=== PATIENT | female | born 1935 | race Caucasian/White ===

== ENCOUNTER → 2017-11-09 20:15 | Outpatient (REF) | payer MEDICARE, OTHER, SELFPAY ==
[2017-11-10 11:38] LABS: Color, Urine Yellow (Yellow); Glucose, Dipstick 250 mg/dl (Normal); Ketone-Dipstick Negative (Negative); Leukocyte Esterase-Dipstick 500 /ul (Negative); Nitrite-Dipstick Negative (Negative); Occult Blood-Urine 10 /ul (Negative); Protein-Dipstick 15 mg/dl (Negative); Urine Bilirubin Dipstick Negative (Negative); Urine Clarity Sl. Cloudy (Clear); Urine Urobilinogen Normal (Normal)
== END ==
LOC: OLS.WHLBEN 20:15
PROVIDERS: Visit Provider Family Medicine
DX: R35.0 Frequency of micturition (principal)
CPT/HCPCS: 81002; 87086; 87088; 87186

== ENCOUNTER → 2018-01-18 05:00 | Outpatient (REF) | payer MEDICARE, OTHER, SELFPAY ==
[2018-01-18 07:45] LABS: Absolute Lymphocyte Count 1.57 X10^3/ul (0.83-4.51); Absolute Neutrophil Count 4.9 X10^3/uL (2.0-7.7); Basophil# 0.02 X10^3/uL; Basophil% 0.3 % (0-1); Hematocrit 32.5 % (37-47); Hemoglobin 10.7 g/dl (12.0-15.0); Lymphocyte # 1.57 X10^3/ul (4.0); Mean Corp Hgb Conc 32.9 g/gl (32-36); Mean Corpuscular Volume 100.3 fL (81-99); Mean Platelet Vol. 8.9 fl (6.2-12.0); Monocyte# 0.68 X10^3/uL; Monocyte% 9.1 % (0-10); Neutrophil # 4.86 X10^3/uL (2.7-7.7); Neutrophil % 65.2 % (47-70); Platelet Count 257 K/mm3 (150-450); RBC Distribution Width CV 15.2 % (11.6-14.6); RBC Distribution Width SD 56.4 fl (35.1-43.9); Red Blood Count 3.24 M/mm3 (4.2-5.4); White Blood Count 7.5 K/mm3 (4.4-11.0)
[2018-01-18 07:55] LABS: POSITIVE COUNT NO; POSITIVE DIFFERENTIAL NO; POSITIVE MORPHOLOGY NO
[2018-01-18 08:09] LABS: ALB/GLOB Ratio 0.9 RATIO (0.9-2.4); AST(SGOT) 11 U/L (15-37); Alanine Aminotransfer ALT/SGPT 19 U/L (13-56); Albumin, Serum 2.5 g/dL (3.2-5.0); Alkaline Phosphatase 85 U/L (45-117); Anion Gap 9 (5-15); BUN 25 mg/dL (7-18); BUN/Creat Ratio 14.2 RATIO (10-20); Chloride 107 mmol/L (98-107); Cholesterol 88 mg/dL (200); Creatinine, Serum 1.76 mg/dL (0.55-1.02); EST Glomerular Filtration Rate 29 mL/min (>60); Est Glom Filt Rate - Afr Amer 36 mL/min (>60); Globulin 2.7 g/dL (2.2-4.2); Glucose 118 mg/dL (74-106); High Density Lipoprotein 56 mg/dL; Potassium 5.1 mmol/L (3.5-5.1); Protein, Total 5.2 g/dL (6.4-8.2); Sodium Level 138 mmol/L (136-145); Thyroid Stim Hormone (TSH) 1.77 uIU/mL (0.358-3.74); Triglycerides 59 mg/dL; Very Low Density Lipoprotein 12 mg/dL (5-40)
[2018-01-18 08:41] LABS: Hemoglobin A1c 9.1 % (4.2-6.3)
[2018-01-18 08:54] LABS: Vitamin D,25 Hydroxy 53.1 ng/mL (29.95-100.01)
== END ==
LOC: OLS.WHLBEN 05:00
PROVIDERS: Visit Provider Family Medicine
DX: E78.5 Hyperlipidemia, unspecified (principal); E03.9 Hypothyroidism, unspecified; E11.9 Type 2 diabetes mellitus without complications
CPT/HCPCS: 36415; 80053; 80061; 82306; 83036; 84443; 85025

== ENCOUNTER → 2018-01-21 05:00 | Outpatient (REF) | payer MEDICARE, OTHER, SELFPAY ==
[2018-01-21 09:21] LABS: Anion Gap 8 (5-15); BUN 19 mg/dL (7-18); BUN/Creat Ratio 14.1 RATIO (10-20); Calcium,Total 8.4 mg/dL (8.5-10.1); Chloride 103 mmol/L (98-107); Creatinine, Serum 1.35 mg/dL (0.55-1.02); EST Glomerular Filtration Rate 40 mL/min (>60); Est Glom Filt Rate - Afr Amer 48 mL/min (>60); Glucose 152 mg/dL (74-106); Potassium 5.1 mmol/L (3.5-5.1); Sodium Level 134 mmol/L (136-145)
== END ==
LOC: OLS.WHLBEN 05:00
PROVIDERS: Visit Provider Family Medicine
DX: N17.9 Acute kidney failure, unspecified (principal)
CPT/HCPCS: 36415; 80048

== ENCOUNTER 2018-03-01 15:23 | Inpatient (IN) | payer MEDICARE, OTHER, SELFPAY ==
[2018-03-01] VITALS (10 sets, daily range): BP systolic 98–148; BP diastolic 55–83; PULSE 77–159; RESP 14–25; TEMP 36–36.7; O2SAT 92–98; BMI 27.4; BMI 29.8
--- NOTE | 2018-03-01 14:08 | EKG12_ITS ---
Test Reason : HYPOTENSION Blood Pressure : / mmHG Vent. Rate : 164 BPM Atrial Rate : 174 BPM P-R Int : 000 ms QRS Dur : 086 ms QT Int : 282 ms P-R-T Axes : 000 -31 084 degrees QTc Int : 465 ms Supraventricular tachycardia Left axis deviation Abnormal ECG Confirmed by SONIA MERCER, MARGARITO ([id number]), editor dictionary SADIQ BUENO ([id number]) on 03/03/2018 9:08:14 AM Referred By: DARA Confirmed By:MARGARITO SCOTT MD
[2018-03-01] MEDS: Adenosine 6 MG/2 ML Syringe IV (14:10)
--- NOTE | 2018-03-01 14:11 | RAD_ITS ---
STUDY: X-RAY CHEST REASON FOR EXAM: Female, 82 years old. Tachycardia TECHNIQUE: Single AP portable view of the chest. COMPARISON: 03/26/2017 FINDINGS: EKG leads overlie the chest Lungs are expanded. Left lung is clear. There is new opacification in the right lung base, likely infiltrate or atelectasis. Follow-up recommended to assure resolution There is no demonstrated pleural abnormality. Normal size heart. Normal mediastinum and aruna. Normal visualized pulmonary arteries. Normal visualized aortic arch and descending thoracic aorta. There are diffuse degenerative changes of the visualized thoracic spine. There is degenerative osteoarthritis of the bilateral shoulders. There is no demonstrated abnormality of the visualized soft tissue structures of the upper abdomen. RAD/Chest 1 View (Portable) IMPRESSION: Airspace opacification in the right lower lobe suspicious for infiltrate or atelectasis. Follow-up recommended to assure resolution. No demonstrated effusion. Electronically Signed: Cristhian Lim MD at 14:30 EDT , Service support ,
[2018-03-01 14:24] LABS: Absolute Lymphocyte Count 1.24 X10^3/ul (0.83-4.51); Absolute Neutrophil Count 15.2 X10^3/uL (2.0-7.7); Basophil# 0.07 X10^3/uL; Basophil% 0.4 % (0-1); Eosinophil# 0.16 X10^3/uL; Eosinophils% 0.9 % (0-5); Hematocrit 36.6 % (37-47); Hemoglobin 12.2 g/dl (12.0-15.0); Lymphocyte # 1.24 X10^3/ul (4.0); Lymphocyte % 6.8 % (19-41); Mean Corp Hgb Conc 33.3 g/gl (32-36); Mean Corpuscular Hgb 34.2 pg (27.0-32.0); Mean Corpuscular Volume 102.5 fL (81-99); Mean Platelet Vol. 8.9 fl (6.2-12.0); Monocyte# 1.39 X10^3/uL; Monocyte% 7.6 % (0-10); Neutrophil # 15.18 X10^3/uL (2.7-7.7); Neutrophil % 83.4 % (47-70); Platelet Count 427 K/mm3 (150-450); RBC Distribution Width SD 48.2 fl (35.1-43.9); Red Blood Count 3.57 M/mm3 (4.2-5.4); White Blood Count 18.2 K/mm3 (4.4-11.0)
[2018-03-01 14:26] LABS: POSITIVE COUNT NO; POSITIVE DIFFERENTIAL NO; POSITIVE MORPHOLOGY NO
--- NOTE | 2018-03-01 14:31 | EKG12_ITS ---
Test Reason : REPEAT Blood Pressure : / mmHG Vent. Rate : 086 BPM Atrial Rate : 086 BPM P-R Int : 132 ms QRS Dur : 084 ms QT Int : 356 ms P-R-T Axes : 039 -34 026 degrees QTc Int : 426 ms Normal sinus rhythm Left axis deviation Poor R wave progression Abnormal ECG Confirmed by SONIA MERCER, MARGARITO ([id number]), newspaper photo editor SADIQ BUENO ([id number]) on 03/03/2018 9:08:35 AM Referred By: PRANAV Confirmed By:MARGARITO SCOTT MD
[2018-03-01 14:54] LABS: BNP,B-Type NATRIURETIC PEPTIDE 120.4 pg/mL (0-100)
[2018-03-01 15:07] LABS: Anion Gap 10 (5-15); BUN 33 mg/dL (7-18); BUN/Creat Ratio 13.3 RATIO (10-20); Calcium,Total 9.2 mg/dL (8.5-10.1); Chloride 106 mmol/L (98-107); Creatinine, Serum 2.48 mg/dL (0.55-1.02); EST Glomerular Filtration Rate 20 mL/min (>60); Est Glom Filt Rate - Afr Amer 24 mL/min (>60); Estimated Creatinine Clearance 14.07 ml/min; Glucose 327 mg/dL (74-106); Potassium 6.4 mmol/L (3.5-5.1); Sodium Level 136 mmol/L (136-145)
--- NOTE | 2018-03-01 15:27 | ED.VISSUMM ---
- ER Visit Summary Date of Service: 03/01/18 Chief Complaint: [Dyspnea and SVT] History of Present Illness: The patient is a 82 F [presents to the emergency department from Dr. Charly Ross's office for evaluation of SVT. Patient was being seen for a routine visit when she was noted to be tachycardic and EKG performed in the office showed SVT. Patient is at a senior living and presents with daughter who gives some of the history. Patient has been short of breath over last several days with minimal exertion. Patient's had a mild cough. She has not had a fever. Patient does not feel like her heart racing and she denies any chest pain. Patient has a history of tachycardia Tacosubo syndrome, diabetes, hypertension, high cholesterol, and COPD.] Physical Examination: [HEENT-PERRLA, EOMI. Cranial nerves II through XII grossly intact. TMs clear. Mucous membranes moist. No adenopathy. Cardiovascular-regular and tachycardic, no murmurs auscultated initially Lungs-good aeration bilaterally, faint expiratory wheezes, no accessory muscle use or retractions Abdomen-normoactive bowel sounds, soft, nontender, no rebound or rigidity, no peritoneal signs. Extremities-intact ?4, normal range of motion, normal pulses, atraumatic] Test Results: [EKG obtained on arrival showed SVT with a ventricular rate of 164 bpm]. CBC with differential showed a white count of . 18.7, hemoglobin 12, hematocrit 37, platelets 427. Chemistry shows sodium 136, potassium 6.4, chloride 106, CO2 20. BUN and creatinine are both elevated from baseline. Troponin was less than 0.02. BNP was 120. Chest x-ray showed a right lower lobe pneumonia. Emergency Department Course and Treatment: [Patient had blood cultures ordered and was started on Azactam 2 g IV. Patient was given Kayexalate 30 g p.o. and given sodium bicarb, calcium chloride, and insulin.] Patient on arrival received 6 mg's of adenosine IV and her SVT resolved to a normal sinus rhythm. Treatment Plan: [Admit] Disposition: [Admit] Impression: [SVT Pneumonia Renal failure Hyperkalemia] This note was generated with Algoregoation software. It may contain incorrect words, spelling, and punctuation that were not noted in review of the chart prior to signing ED Disposition - Plan for ED Patient: Chief Complaint: Palpitations Referrals: Yao Yousif DO [Primary Care Provider] -
--- NOTE | 2018-03-01 15:32 | ED.DCSUM_ITS ---
- ER Visit Summary Date of Service: 03/01/18 Chief Complaint: [Dyspnea and SVT] History of Present Illness: The patient is a 82 F [presents to the emergency department from Dr. Charly Ross's office for evaluation of SVT. Patient was being seen for a routine visit when she was noted to be tachycardic and EKG performed in the office showed SVT. Patient is at a retirement and presents with daughter who gives some of the history. Patient has been short of breath over last several days with minimal exertion. Patient's had a mild cough. She has not had a fever. Patient does not feel like her heart racing and she denies any chest pain. Patient has a history of tachycardia Tacosubo syndrome, diabetes, hypertension, high cholesterol, and COPD.] Physical Examination: [HEENT-PERRLA, EOMI. Cranial nerves II through XII grossly intact. TMs clear. Mucous membranes moist. No adenopathy. Cardiovascular-regular and tachycardic, no murmurs auscultated initially Lungs-good aeration bilaterally, faint expiratory wheezes, no accessory muscle use or retractions Abdomen-normoactive bowel sounds, soft, nontender, no rebound or rigidity, no peritoneal signs. Extremities-intact ?4, normal range of motion, normal pulses, atraumatic] Test Results: [EKG obtained on arrival showed SVT with a ventricular rate of 164 bpm]. CBC with differential showed a white count of . 18.7, hemoglobin 12 , hematocrit 37, platelets 427. Chemistry shows sodium 136, potassium 6.4, chloride 106, CO2 20. BUN and creatinine are both elevated from baseline. Troponin was less than 0.02. BNP was 120. Chest x-ray showed a right lower lobe pneumonia. Emergency Department Course and Treatment: [Patient had blood cultures ordered and was started on Azactam 2 g IV. Patient was given Kayexalate 30 g p.o. and given sodium bicarb, calcium chloride, and insulin.] Patient on arrival received 6 mg's of adenosine IV and her SVT resolved to a normal sinus rhythm. Treatment Plan: [Admit] Disposition: [Admit] Impression: [SVT Pneumonia Renal failure Hyperkalemia] This note was generated with Resilienceation software. It may contain incorrect words, spelling, and punctuation that were not noted in review of the chart prior to signing ED Disposition - Plan for ED Patient: Chief Complaint: Palpitations Referrals: Yao Yousif DO [Primary Care Provider] -
[2018-03-01] MEDS: Calcium Chloride 1 GM/10 ML Syringe IV (15:47)
[2018-03-01] MEDS: Sodium Polystyrene Sulfonate 15 GM/60 ML UDC 30 GM PO (15:48)
[2018-03-01] MEDS: 0.9% Normal Saline 1,000 ML 150 ML IV (15:48)
--- NOTE | 2018-03-01 15:57 | PCM.HP.STD ---
Problem List (1) Takotsubo cardiomyopathy Status: Chronic (2) Nonrheumatic tricuspid (valve) insufficiency Status: Chronic (3) Atherosclerotic heart disease of [place] coronary artery without angina pectoris Status: Chronic Qualifiers: Comment: Mild (4) Hypothyroidism Status: Chronic Qualifiers: (5) COPD (chronic obstructive pulmonary disease) Status: Chronic Qualifiers: (6) Hyperlipidemia Status: Chronic Qualifiers: (7) Type 2 diabetes mellitus Status: Chronic History of Present Illness Date of Admission: 03/01/18 Chief Complaint: SVT, shortness of breath. The patient is a 82 year old F with past medical history as mentioned above was referred to the emergency department from Dr. Ross's office for evaluation for SVT. The patient came in today for follow-up with Dr. Ross for history of nonischemic cardiomyopathy and she was found to be an supraventricular tachycardia and she was sent to the emergency department for evaluation and treatment. According to the patient's daughter, patient has been having symptoms of exertional shortness of breath and weakness over the last couple of days. The patient herself denies any significant symptoms. She did mention that she has been having dry cough over the last few days. She denied chest pain, palpitation, dizziness, lightheadedness, syncope or presyncope. Denies fever or chills. She has a history of Takotsubo cardiomyopathy and she had an echocardiogram that was done on August, and revealed ejection fraction of 45%. She has a history of type 2 diabetes mellitus which seemed to be uncontrolled, most recent hemoglobin A1c was in December, and it was 9.1. She has a history of stage III chronic kidney disease with baseline creatinine has been fluctuating from 0.9 up to 1.7 and admission creatinine is 2.48. In the emergency department, patient was found to be in SVT with heart rate of around 170. She was asymptomatic. She received 2 dose of IV adenosine and she converted back to sinus rhythm. She remained asymptomatic. Her routine blood work is remarkable for leukocytosis, potassium 6.4, creatinine of 2.48. Initial EKG revealed SVT and after she received IV adenosine, EKG revealed sinus rhythm without acute ischemic changes. Her chest x-ray showed new right lower base infiltrate. She is being admitted for SVT, right lower lobe community-acquired pneumonia, acute kidney injury top of stage III chronic kidney disease and hyperkalemia. Past Medical History Past Medical History (Chronic Problems): Chronic Problems (Last Reviewed 03/01/18 @ 13:10 by Victoria Fu) Takotsubo cardiomyopathy (Chronic) Nonrheumatic tricuspid (valve) insufficiency (Chronic) Atherosclerotic heart disease of [place] coronary artery without angina pectoris (Chronic) Mild Hypothyroidism (Chronic) COPD (chronic obstructive pulmonary disease) (Chronic) Hyperlipidemia (Chronic) Type 2 diabetes mellitus (Chronic) Allergies Sulfa (Sulfonamide Antibiotics) Allergy (Unknown, Verified 03/01/18 14:05) Unknown adhesive tape Allergy (Verified 03/01/18 14:05) Other codeine Allergy (Verified 03/01/18 14:05) HEART ATTACK Latex, Natural Rubber Allergy (Verified 03/01/18 14:05) Rash levofloxacin [From Levaquin] Allergy (Verified 03/01/18 14:05) Anaphylaxis Penicillins Allergy (Verified 03/01/18 14:05) Rash acetaminophen [From Vicodin] Adverse Reaction (Verified 03/01/18 14:05) Chest tightness hydrocodone bitartrate [From Vicodin] Adverse Reaction (Verified 03/01/18 14:05) Chest tightness Home Medications: Ambulatory Orders Medication Instructions Recorded Levothyroxine [Synthroid] 25 mcg PO DAILY 05/23/16 Meloxicam [Mobic] 15 mg PO QODAY 05/23/16 Multivit with Calcium,Iron,Min 1 ea PO DAILY 05/23/16 [Multiple Vitamins For Women] Trazodone HCl 50 mg PO QHS 05/23/16 Aspirin 325 mg PO DAILY@0800 #0 tab 08/30/16 Atorvastatin Calcium [Lipitor] 20 mg PO QHS #30 tab 09/23/16 Metformin HCl [Glucophage] 1,000 mg PO BIDCM #60 tab 09/23/16 Insulin Detemir [Levemir FlexPen] 24 units SC DAILY 03/26/17 Lisinopril [Prinivil] 10 mg PO DAILY 03/26/17 Ubidecarenone [Coenzyme Q-10] 200 mg PO DAILY 03/26/17 Vitamin E 400 unit PO DAILY 03/26/17 citalopram 10 mg tablet 10 mg PO QDAY 01/15/18 ergocalciferol (vitamin D2) 50,000 50,000 unit PO QMONTH 01/15/18 unit capsule hydroxyzine HCl 25 mg tablet 25 mg PO DAILY PRN 01/15/18 Fluticasone/Salmeterol [Advair 1 each IH BID 03/01/18 500-50 Diskus] megestrol 20 mg tablet 10 mg PO TID tab 03/01/18 ondansetron HCl 4 mg tablet 4 mg PO Q8H PRN tab 03/01/18 oxybutynin chloride ER 10 mg 10 mg PO QDAY 03/01/18 tablet,extended release 24 hr Surgical History: hysterectomy, total hip arthroplasty, - - Fractured femur Psychiatric History: No pertinent psych hx SUPERINTENDENT COLLIERY History: No pertinent SUPERINTENDENT COLLIERY history Smoking Status: Never smoker Alcohol: None Drugs: None - *Family History Maternal History Items: No pertinent history Paternal History Items: No pertinent history Review of Systems Constitutional: Reports: Anorexia, Weakness. Denies: Chills, Fever Eyes: Denies: Blurred vision, Double vision, Drainage, Redness HEENT: Denies: Difficulty Hearing, Ear Pain, Eye Pain, Nasal Congestion, Sore Throat Cardiovascular: Denies: Chest Pain, Chest Pressure, Chest Tightness, Heaviness, Light Headedness, Palpitations, Paroxysmal Noc. Dyspnea, Syncope Respiratory: Reports: Cough, Shortness of breath upon exertion. Denies: Pleuritic Pain, Sputum production, Wheezing Gastrointestinal: Denies: Abdominal Pain, Constipation, Diarrhea, Nausea, Vomiting Genitourinary: Denies: Dysuria, Frequency, Hematuria Musculoskeletal: Denies: Arm Pain, Back Pain, Foot Pain Skin: Denies: Dryness, Rash Neurological: Denies: Balance problems, Double vision, Change in Speech, Slurred speech, Confusion, Focal weakness, Headaches, Incoordination Psychiatric: Denies: Anxiety, Depression Endocrine: Denies: Change in Body Habitus, Polydipsia VTE Information - Inpt Only VTE Present on Admission: No VTE Mechan Device Prophylaxis: None VTE Pharm Prophylaxis ordered?: Yes - Physical Exam General: Alert, Oriented x3, Cooperative, No apparent distress HEENT: Atraumatic, PERRLA, EOMI Oral: Moist Mucosa, No Gingival or Mucosal Lesions/ Ulcerations Neck: Supple, No JVD, Negative Carotid Bruits, Trachea Midline, Thyroid Normal Size and Texture Lungs: Clear to auscultation, No rhonchi, No wheeze, No rales, Diminished Cardiovascular: Regular rate, Regular Rhythm, Normal S1, Normal S2, PMI Normal Abdomen: Bowel Sounds Present, Soft, Non Tender, Non-Distended, No Hepato-splenomegaly Extremities: No clubbing, No cyanosis, No edema Skin: No rashes, No breakdown Lymphatic: No Cervical, Supraclavicular, or Inguinal Adenopathy Neurological: Cranial nerves II-XII grossly intact, Motor Exam 5/5 strength throughout Psych/Mental Status: Normal Affect, Appropriate, Alert and oriented to time, place, person, mood and affect Vital Signs Temp Pulse Resp BP Pulse Ox 96.8 F L 77 19 H 109/59 L 98 03/01/18 13:56 03/01/18 15:48 03/01/18 15:48 03/01/18 15:48 03/01/18 15:48 Oxygen Flow Rate (L/min) 2 Oxygen Delivery Method Nasal Cannula Weight: 150 lb Body Mass Index (BMI) 27.4 Laboratory Tests Past 24 Hrs 03/01/18 03/01/18 03/01/18 14:07 14:07 14:07 WBC 18.2 H RBC 3.57 L Hgb 12.2 Hct 36.6 L MCV 102.5 H MCH 34.2 H MCHC 33.3 RDW 13.0 RDW Differential 48.2 H Plt Count 427 MPV 8.9 Immature Gran % (Auto) 0.900 Neut % (Auto) 83.4 H Lymph % (Auto) 6.8 L Blair % (Auto) 7.6 Eos % (Auto) 0.9 Baso % (Auto) 0.4 Absolute Neuts (auto) 15.2 H Absolute Lymphs (auto) 1.24 Sodium 136 Potassium 6.4 H* Chloride 106 Carbon Dioxide 20.0 L Anion Gap 10 BUN 33 H Creatinine 2.48 H Estim Creat Clear Calc 14.07 Est GFR (MDRD) Af Amer 24 L Est GFR (MDRD) Non-Af 20 L BUN/Creatinine Ratio 13.3 Glucose 327 H Calcium 9.2 Troponin I 0.02 B-Natriuretic Peptide 120.4 H Assessment/Plan This is 82 years old female patient was sent to the emergency department by Dr. Ross for SVT as well as symptoms of mild shortness of breath and weakness and she was found to have right lower lobe community acquired pneumonia, acute kidney injury on top of stage III chronic kidney disease, hyperkalemia and SVT that returned back to sinus rhythm after IV adenosine. #1 SVT: Status post chemical cardioversion, patient received 2 doses of IV adenosine she converted back to sinus rhythm. EKG after the adenosine reviewed, revealed sinus rhythm without acute ischemic changes. Plan: Admit to PCU, cardiac monitoring, serial cardiac enzymes, 2D echocardiogram, cardiology consult, check serum magnesium and TSH, PT OT evaluation and treatment. #2 right lower lobe community-acquired pneumonia: Chest x-ray reviewed. She does have significant leukocytosis. She is afebrile. Plan: Blood culture, sputum culture, urine culture, urinalysis, start IV Rocephin and Zithromax, albuterol as needed, chest physical therapy. #3 acute kidney injury double stage III chronic kidney disease: This is secondary to poor oral intake in addition to medication side effects including lisinopril, meloxicam and metformin. At baseline creatinine has been fluctuating anywhere from 0.9-1.7. Admission creatinine is 2.48. Plan: Gentle IV fluids for hydration to avoid volume overload, hold nephrotoxic drugs, input output chart, repeat BMP tomorrow morning. #4 hyperkalemia: Secondary to #3. In addition to that, patient has been on lisinopril. EKG revealed sinus rhythm without changes related to hyperkalemia. She received 1 dose of Kayexalate, sodium bicarb, IV insulin and calcium chloride in the ER. Plan: IV fluids, repeat potassium at 8 PM tonight, repeat BMP tomorrow morning, hold lisinopril. #5 Takotsubo cardiomyopathy: With low ejection fraction, most recent 2D echo cardiogram was from August, with ejection fraction of 45%. At this time, no evidence of acute CHF. Plan: 2D echocardiogram, gentle IV fluids for hydration to avoid volume overload, hold lisinopril. #6 type 2 diabetes mellitus: ADA diet, Accu-Cheks, insulin sliding scale, continue home doses of Levemir insulin, hold metformin as above. #7 hypothyroidism: Continue levothyroxine, check TSH. #8 COPD: Clinically stable, pulse ox is maintained on room air. Plan for albuterol as needed. #9 hyperlipidemia: Continue statins. #10 DVT prophylaxis: Subcu heparin. This note was generated with Dragon dictation software. It may contain incorrect words, spelling, and punctuation that were not noted in checking the note before signing. Code Visit Inpatient E&M: 48122 Init Hosp L3
--- NOTE | 2018-03-01 16:04 | CASEMGMT ---
Social Work Note Pt is from [facility] and anticipates returning at discharge. Notified pt and her daughter that SW would contact [facility] to notify of admission and SW on assigned unit would assist with transfer back to [facility]. Understanding expressed and no further needs at this time. Placed call to Stella and notified that pt would be admitted to PCU and to f/u with Gelacio Salamanca regarding d/c plans. Plan: [facility] Brandi Leger, DIRECTOR BIOLOGY, LEAD SALES CONSULTANT
[2018-03-01 16:21] LABS: Bedside Glucose 264 mg/dL (70-110)
--- NOTE | 2018-03-01 18:29 | ECHOD_ITS ---
Reason For Study: ARRHYTHMIA Procedure This was a 2D Doppler, Color Flow transthoracic echocardiogram. The exam was of adequate technical quality. Exam performed portable in patient room. Left Ventricle Normal LV size. Left ventricular systolic function is normal. The estimated ejection fraction is 65 %. No regional wall motion abnormalities noted. Right Ventricle Normal RV size. Normal systolic function. Atria The left atrium is mildly enlarged. Normal right atrium. No doppler evidence for ASD. Mitral Valve There is mild mitral annular calcification. Extension of the mitral annular calcification onto the posterior mitral valve leaflet. Mild (1+) eccentric mitral valve insufficiency. Tricuspid Valve Normal tricuspid valve. Mild tricuspid valve insufficiency. Right ventricular systolic pressure estimated to be 37 mmHg. Aortic Valve Trisinus/trileaflet aortic valve. Mild focal aortic valve calcification. Pulmonic Valve The pulmonic valve is not well visualized. Trivial pulmonic valve insufficiency. Great Vessels Normal sized aortic root. Pericardium/Pleural No pericardial effusion. MMode/2D Measurements & Calculations LVIDd: 3.6 cm IVSd: 1.0 cm Ao root diam: 2.9 cm LVIDs: 2.3 cm LVPWd: 1.0 cm RVDd: 3.5 cm FS: 37.6 % LAV(MOD-bp): 59.4 ml LA A4 area: 19.4 cm2 RA A4 area: 15.0 cm2 LAV(MOD-bp) Indexed: 33.9 ml/m2 LAV(MOD-sp2): 61.1 ml LAV(MOD-sp4): 56.0 ml Doppler Measurements & Calculations MV E max kalpesh: 82.5 cm/sec Lat Peak E' Kalpesh: 10.9 cm/sec Med Peak E' Kalpesh: 8.8 cm/sec MV A max kalpesh: 118.7 cm/sec E/E' lat: 7.5 E/E' med: 9.4 MV E/A: 0.69 Ao V2 max: 140.2 cm/sec LV V1 max: 113.4 cm/sec TR max kalpesh: 290.8 cm/sec Ao max P.9 mmHg LV V1 max P.1 mmHg TR max P.9 mmHg Interpretation Summary Left ventricular systolic function is normal. The estimated ejection fraction is 65 %. The left atrium is mildly enlarged. There is mild mitral annular calcification. Extension of the mitral annular calcification onto the posterior mitral valve leaflet. Mild (1+) eccentric mitral valve insufficiency. Mild tricuspid valve insufficiency. Mild focal aortic valve calcification. Trivial pulmonic valve insufficiency. Right ventricular systolic pressure estimated to be 37 mmHg. Transmitral diastolic flow velocities suggest diastolic dysfunction. Ordering Physician: Mohsen Goncalves Referring Physician: TRACY JONES Performed By: Екатерина Boss, ROBERT, RVT
[2018-03-01] MEDS: Ceftriaxone 1 GM/50 ML BAG IV (18:47)
[2018-03-01] MEDS: 0.9% Normal Saline 1,000 ML 75 ML IV (18:47)
[2018-03-01 20:05] LABS: Potassium 5.1 mmol/L (3.5-5.1)
[2018-03-01 20:06] LABS: Thyroid Stim Hormone (TSH) 2.14 uIU/mL (0.358-3.74)
[2018-03-01] MEDS: Heparin Injection (Vial) 5,000 UNIT/ML VIAL 5000 UNIT SC (22:56)
[2018-03-01] MEDS: traZODone 50 MG Tablet PO (22:57)
[2018-03-01] MEDS: Atorvastatin Calcium 20 MG Tablet PO (22:57)
[2018-03-01 23:55] LABS: Bedside Glucose 339 mg/dL (70-110)
[2018-03-02] VITALS (12 sets, daily range): BP systolic 100–127; BP diastolic 52–73; PULSE 60–82; RESP 14–18; TEMP 36.7–37.2; O2SAT 94–96
[2018-03-02] MEDS: Loperamide 2 MG Capsule 1 MG PO (00:51)
[2018-03-02] MEDS: Levothyroxine 25 MCG TABLET PO (05:03)
[2018-03-02] MEDS: Heparin Injection (Vial) 5,000 UNIT/ML VIAL 5000 UNIT SC ×3 (05:04→21:11)
[2018-03-02 05:47] LABS: Anion Gap 8 (5-15); BUN 27 mg/dL (7-18); BUN/Creat Ratio 19.3 RATIO (10-20); Calcium,Total 8.5 mg/dL (8.5-10.1); Chloride 112 mmol/L (98-107); EST Glomerular Filtration Rate 38 mL/min (>60); Est Glom Filt Rate - Afr Amer 46 mL/min (>60); Estimated Creatinine Clearance 24.93 ml/min; Glucose 223 mg/dL (74-106); Potassium 4.6 mmol/L (3.5-5.1); Sodium Level 142 mmol/L (136-145)
[2018-03-02 06:33] LABS: Absolute Lymphocyte Count 1.47 X10^3/ul (0.83-4.51); Absolute Neutrophil Count 6.8 X10^3/uL (2.0-7.7); Basophil# 0.04 X10^3/uL; Basophil% 0.4 % (0-1); Eosinophil# 0.44 X10^3/uL; Eosinophils% 4.6 % (0-5); Hematocrit 28.3 % (37-47); Hemoglobin 9.5 g/dl (12.0-15.0); Lymphocyte # 1.47 X10^3/ul (4.0); Lymphocyte % 15.5 % (19-41); Mean Corp Hgb Conc 33.6 g/gl (32-36); Mean Corpuscular Hgb 33.9 pg (27.0-32.0); Mean Corpuscular Volume 101.1 fL (81-99); Mean Platelet Vol. 9.5 fl (6.2-12.0); Monocyte# 0.71 X10^3/uL; Monocyte% 7.5 % (0-10); Neutrophil # 6.77 X10^3/uL (2.7-7.7); Neutrophil % 71.2 % (47-70); Platelet Count 245 K/mm3 (150-450); RBC Distribution Width CV 13.4 % (11.6-14.6); RBC Distribution Width SD 49.9 fl (35.1-43.9); White Blood Count 9.5 K/mm3 (4.4-11.0)
--- NOTE | 2018-03-02 06:41 | PCM.CONS.C ---
Reason for Consult Date of Consultation: 03/02/18 Reason for Consultation: Fast heart rate History of Present Illness: The patient is a 82 year old F with past medical history as mentioned above was referred to the emergency department from Dr. oRss's office for evaluation for SVT. The patient came in today for follow-up with Dr. Ross for history of nonischemic cardiomyopathy and she was found to be an supraventricular tachycardia and she was sent to the emergency department for evaluation and treatment. According to the patient's daughter, patient has been having symptoms of exertional shortness of breath and weakness over the last couple of days. The patient herself denies any significant symptoms. She did mention that she has been having dry cough over the last few days. She denied chest pain, palpitation, dizziness, lightheadedness, syncope or presyncope. Denies fever or chills. She has a history of Takotsubo cardiomyopathy and she had an echocardiogram that was done on August, and revealed ejection fraction of 45%. She has a history of type 2 diabetes mellitus which seemed to be uncontrolled, most recent hemoglobin A1c was in December, and it was 9.1. She has a history of stage III chronic kidney disease with baseline creatinine has been fluctuating from 0.9 up to 1.7 and admission creatinine is 2.48. In the emergency department, patient was found to be in SVT with heart rate of around 164. She was asymptomatic. She received 2 dose of IV adenosine and she converted back to sinus rhythm. She remained asymptomatic. Her routine blood work is remarkable for leukocytosis, potassium 6.4, creatinine of 2.48. Initial EKG revealed SVT and after she received IV adenosine, EKG revealed sinus rhythm without acute ischemic changes. Her chest x-ray showed new right lower base infiltrate. She is being admitted for SVT, right lower lobe community-acquired pneumonia, acute kidney injury top of stage III chronic kidney disease and hyperkalemia. Cardiology was called for further evaluation and management. She has had no further symptoms of fast heartbeat since she was admitted to the hospital. [] Past Medical History Allergies/Adverse Reactions: Allergies Sulfa (Sulfonamide Antibiotics) Allergy (Unknown, Verified 03/01/18 14:05) Unknown adhesive tape Allergy (Verified 03/01/18 14:05) Other codeine Allergy (Verified 03/01/18 14:05) HEART ATTACK Latex, Natural Rubber Allergy (Verified 03/01/18 14:05) Rash levofloxacin [From Levaquin] Allergy (Verified 03/01/18 14:05) Anaphylaxis Penicillins Allergy (Verified 03/01/18 14:05) Rash acetaminophen [From Vicodin] Adverse Reaction (Verified 03/01/18 14:05) Chest tightness hydrocodone bitartrate [From Vicodin] Adverse Reaction (Verified 03/01/18 14:05) Chest tightness Home Medications: Ambulatory Orders Medication Instructions Recorded Levothyroxine [Synthroid] 25 mcg PO DAILY 05/23/16 Meloxicam [Mobic] 15 mg PO QODAY 05/23/16 Multivit with Calcium,Iron,Min 1 tab PO DAILY 05/23/16 [Multiple Vitamins For Women] Trazodone HCl 50 mg PO QHS 05/23/16 Insulin Detemir [Levemir FlexPen] 24 units SC DAILY 03/26/17 Lisinopril [Prinivil] 10 mg PO DAILY 03/26/17 Ubidecarenone [Coenzyme Q-10] 200 mg PO DAILY 03/26/17 Vitamin E 400 unit PO DAILY 03/26/17 ergocalciferol (vitamin D2) 50,000 50,000 unit PO QMONTH 01/15/18 unit capsule Aspirin 325 mg PO DAILY@0800 03/01/18 Atorvastatin Calcium [Lipitor] 20 mg PO QHS 03/01/18 Fluticasone/Salmeterol [Advair 1 each IH BID 03/01/18 500-50 Diskus] Metformin HCl [Glucophage] 1,000 mg PO BIDCM 03/01/18 megestrol 20 mg tablet 10 mg PO TID tab 03/01/18 ondansetron HCl 4 mg tablet 4 mg PO Q8H PRN tab 03/01/18 oxybutynin chloride ER 10 mg 10 mg PO DAILY 03/01/18 tablet,extended release 24 hr Past Medical History (Chronic Problems): Chronic Problems (Last Reviewed 03/01/18 @ 13:10 by Victoria Fu) Takotsubo cardiomyopathy (Chronic) Nonrheumatic tricuspid (valve) insufficiency (Chronic) Atherosclerotic heart disease of [place] coronary artery without angina pectoris (Chronic) Mild Hypothyroidism (Chronic) COPD (chronic obstructive pulmonary disease) (Chronic) Hyperlipidemia (Chronic) Type 2 diabetes mellitus (Chronic) Surgical History: hysterectomy, total hip arthroplasty, - - Fractured femur Psychiatric History: 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 Denies: Chest Discomfort, Orthopnea, PND, Peripheral Edema, Palpitations, Lightheadedness, Dizziness, Near Syncope, Syncope Respiratory: Denies: Cough, Sputum Production, Hemoptysis Gastrointestinal: Denies: Hematemesis, Hematochezia, Melena Genitourinary: Denies: Dysuria, Hematuria Skin: Denies: Rash Subjectve: Pleasant lady in no apparent distress Objective: Vital Signs Temp Pulse Resp BP Pulse Ox 98.1 F 78 18 100/52 L 94 03/02/18 04:30 03/02/18 04:30 03/02/18 04:30 03/02/18 04:30 03/02/18 04:30 Oxygen Delivery Method Room Air Weight: 163 lb 2.273 oz Body Mass Index (BMI) 29.8 Intake and Output for Last 24 Hours 02/28/18 03/01/18 03/02/18 23:59 23:59 23:59 Intake Total 749 / 749 589 / 589 Balance 749 / 749 589 / 589 General: Awake, Alert, Oriented x 3 HEENT: PERRL, EOMI, Sclera Non Icteric Neck: Supple, Good ROM, No Lymph Node Enlargement Lungs: Clear to auscultation Cardiovascular: Regular Rhythm, Normal S1, Normal S2, No Murmurs, No Rubs, No Gallops Vascular: No Carotid Bruits, Normal Femoral Pulses, Normal Radial Pulses, Normal Dorsalis Pedal Pulse, Normal Posterior Tibial Pulses Abdomen: Bowel Sounds Present, Soft, Non Tender, No HSM, No Organomegaly Extremities: No Cyanosis, No Clubbing, No edema Neurological: No Focal Motor or Sensory Deficit 03/01/18 18:55: Potassium 5.1 03/01/18 18:55: Troponin I 0.15 H 03/01/18 22:31: Troponin I 0.19 H 03/02/18 04:45: WBC Cancelled, Corrected WBC Cancelled, RBC Cancelled, Hgb Cancelled, Hct Cancelled, MCV Cancelled, MCH Cancelled, MCHC Cancelled, RDW Cancelled, RDW Differential Cancelled, Plt Count Cancelled, MPV Cancelled, Immature Gran % (Auto) Cancelled, Neut % (Auto) Cancelled, Lymph % (Auto) Cancelled, [place] % (Auto) Cancelled, Eos % (Auto) Cancelled, Baso % (Auto) Cancelled, Absolute Neuts (auto) Cancelled, Total Counted Cancelled, Neutrophils % (Manual) Cancelled, Band Neutrophils % Cancelled, Lymphocytes % (Manual) Cancelled, Monocytes % (Manual) Cancelled, Eosinophils % (Manual) Cancelled, Basophils % (Manual) Cancelled, Metamyelocytes % Cancelled, Myelocytes % Cancelled, Promyelocytes % Cancelled, Blast Cells % Cancelled, Plasma Cell % (Manual) Cancelled, Other Cells % Cancelled 03/02/18 04:45: Sodium 142, Potassium 4.6, Chloride 112 H, Carbon Dioxide 22.0, Anion Gap 8, BUN 27 H, Creatinine 1.40 H, Est GFR (MDRD) Af Amer 46 L, Est GFR (MDRD) Non-Af 38 L, BUN/Creatinine Ratio 19.3, Glucose 223 H, Calcium 8.5, Troponin I 0.15 H Rhythm: EKG: Initial EKG from March 01 1402 demonstrates supraventricular tachycardia with a rate of 164 bpm, follow-up EKG after conversion demonstrates normal sinus rhythm with a rate of 86 bpm left axis deviation Assessment/Plan 1. Supraventricular tachycardia. The etiology of the above is not entirely clear. She has had no previous obstructive coronary disease but she did have significant electrolyte abnormal 80s including renal dysfunction and hyperkalemia. My recommendation at this time would be to institute low-dose beta-katty and discontinue the lisinopril and observe her. Would recommend an echocardiogram to assess her left ventricular function and further recommendations will depend on the results of the above. 2. History of takutsobo cardiomyopathy She has had a previous history of apical ballooning syndrome but has been asymptomatic with no heart failure symptoms her last ejection fraction was estimated to be 45% in 2016 and this would be reevaluated. 3. Hyperlipidemia She does have a history of hyperlipidemia and will continue with primary risk factor modification. 4. Hyperkalemia Suggest discontinuation of the lisinopril. Thank you for allowing me to participate in the care of your patient. Please don't hesitate to call if any issues arise
[2018-03-02 06:48] LABS: Differential Indicated SCAN CRITERIA MET; POSITIVE COUNT YES; POSITIVE DIFFERENTIAL NO; POSITIVE MORPHOLOGY YES
--- NOTE | 2018-03-02 06:48 | CON.PCM_ITS ---
Reason for Consult Date of Consultation: 03/02/18 Reason for Consultation: Fast heart rate History of Present Illness: The patient is a 82 year old F with past medical history as mentioned above was referred to the emergency department from Dr. Ross's office for evaluation for SVT. The patient came in today for follow-up with Dr. Ross for history of nonischemic cardiomyopathy and she was found to be an supraventricular tachycardia and she was sent to the emergency department for evaluation and treatment. According to the patient's daughter, patient has been having symptoms of exertional shortness of breath and weakness over the last couple of days. The patient herself denies any significant symptoms. She did mention that she has been having dry cough over the last few days. She denied chest pain, palpitation, dizziness, lightheadedness, syncope or presyncope. Denies fever or chills. She has a history of Takotsubo cardiomyopathy and she had an echocardiogram that was done on August, and revealed ejection fraction of 45%. She has a history of type 2 diabetes mellitus which seemed to be uncontrolled, most recent hemoglobin A1c was in December, and it was 9.1. She has a history of stage III chronic kidney disease with baseline creatinine has been fluctuating from 0.9 up to 1.7 and admission creatinine is 2.48. In the emergency department, patient was found to be in SVT with heart rate of around 164. She was asymptomatic. She received 2 dose of IV adenosine and she converted back to sinus rhythm. She remained asymptomatic. Her routine blood work is remarkable for leukocytosis, potassium 6.4, creatinine of 2.48. Initial EKG revealed SVT and after she received IV adenosine, EKG revealed sinus rhythm without acute ischemic changes. Her chest x-ray showed new right lower base infiltrate. She is being admitted for SVT, right lower lobe community-acquired pneumonia, acute kidney injury top of stage III chronic kidney disease and hyperkalemia. Cardiology was called for further evaluation and management. She has had no further symptoms of fast heartbeat since she was admitted to the hospital. [] Past Medical History Allergies/Adverse Reactions: Allergies Sulfa (Sulfonamide Antibiotics) Allergy (Unknown, Verified 03/01/18 14:05) Unknown adhesive tape Allergy (Verified 03/01/18 14:05) Other codeine Allergy (Verified 03/01/18 14:05) HEART ATTACK Latex, Natural Rubber Allergy (Verified 03/01/18 14:05) Rash levofloxacin [From Levaquin] Allergy (Verified 03/01/18 14:05) Anaphylaxis Penicillins Allergy (Verified 03/01/18 14:05) Rash acetaminophen [From Vicodin] Adverse Reaction (Verified 03/01/18 14:05) Chest tightness hydrocodone bitartrate [From Vicodin] Adverse Reaction (Verified 03/01/18 14:05) Chest tightness Home Medications: Ambulatory Orders Medication Instructions Recorded Levothyroxine [Synthroid] 25 mcg PO DAILY 05/23/16 Meloxicam [Mobic] 15 mg PO QODAY 05/23/16 Multivit with Calcium,Iron,Min 1 tab PO DAILY 05/23/16 [Multiple Vitamins For Women] Trazodone HCl 50 mg PO QHS 05/23/16 Insulin Detemir [Levemir FlexPen] 24 units SC DAILY 03/26/17 Lisinopril [Prinivil] 10 mg PO DAILY 03/26/17 Ubidecarenone [Coenzyme Q-10] 200 mg PO DAILY 03/26/17 Vitamin E 400 unit PO DAILY 03/26/17 ergocalciferol (vitamin D2) 50,000 50,000 unit PO QMONTH 01/15/18 unit capsule Aspirin 325 mg PO DAILY@0800 03/01/18 Atorvastatin Calcium [Lipitor] 20 mg PO QHS 03/01/18 Fluticasone/Salmeterol [Advair 1 each IH BID 03/01/18 500-50 Diskus] Metformin HCl [Glucophage] 1,000 mg PO BIDCM 03/01/18 megestrol 20 mg tablet 10 mg PO TID tab 03/01/18 ondansetron HCl 4 mg tablet 4 mg PO Q8H PRN tab 03/01/18 oxybutynin chloride ER 10 mg 10 mg PO DAILY 03/01/18 tablet,extended release 24 hr Past Medical History (Chronic Problems): Chronic Problems (Last Reviewed 03/01/18 @ 13:10 by Victoria Fu) Takotsubo cardiomyopathy (Chronic) Nonrheumatic tricuspid (valve) insufficiency (Chronic) Atherosclerotic heart disease of [place] coronary artery without angina pectoris (Chronic) Mild Hypothyroidism (Chronic) COPD (chronic obstructive pulmonary disease) (Chronic) Hyperlipidemia (Chronic) Type 2 diabetes mellitus (Chronic) Surgical History: hysterectomy, total hip arthroplasty, - - Fractured femur Psychiatric History: 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 Denies: Chest Discomfort, Orthopnea, PND, Peripheral Edema, Palpitations, Lightheadedness, Dizziness, Near Syncope, Syncope Respiratory: Denies: Cough, Sputum Production, Hemoptysis Gastrointestinal: Denies: Hematemesis, Hematochezia, Melena Genitourinary: Denies: Dysuria, Hematuria Skin: Denies: Rash Subjectve: Pleasant lady in no apparent distress Objective: Vital Signs Temp Pulse Resp BP Pulse Ox 98.1 F 78 18 100/52 L 94 03/02/18 04:30 03/02/18 04:30 03/02/18 04:30 03/02/18 04:30 03/02/18 04:30 Oxygen Delivery Method Room Air Weight: 163 lb 2.273 oz Body Mass Index (BMI) 29.8 Intake and Output for Last 24 Hours 02/28/18 03/01/18 03/02/18 23:59 23:59 23:59 Intake Total 749 / 749 589 / 589 Balance 749 / 749 589 / 589 General: Awake, Alert, Oriented x 3 HEENT: PERRL, EOMI, Sclera Non Icteric Neck: Supple, Good ROM, No Lymph Node Enlargement Lungs: Clear to auscultation Cardiovascular: Regular Rhythm, Normal S1, Normal S2, No Murmurs, No Rubs, No Gallops Vascular: No Carotid Bruits, Normal Femoral Pulses, Normal Radial Pulses, Normal Dorsalis Pedal Pulse, Normal Posterior Tibial Pulses Abdomen: Bowel Sounds Present, Soft, Non Tender, No HSM, No Organomegaly Extremities: No Cyanosis, No Clubbing, No edema Neurological: No Focal Motor or Sensory Deficit 03/01/18 18:55: Potassium 5.1 03/01/18 18:55: Troponin I 0.15 H 03/01/18 22:31: Troponin I 0.19 H 03/02/18 04:45: WBC Cancelled, Corrected WBC Cancelled, RBC Cancelled, Hgb Cancelled, Hct Cancelled, MCV Cancelled, MCH Cancelled, MCHC Cancelled, RDW Cancelled, RDW Differential Cancelled, Plt Count Cancelled, MPV Cancelled, Immature Gran % (Auto) Cancelled, Neut % (Auto) Cancelled, Lymph % (Auto) Cancelled, [place] % (Auto) Cancelled, Eos % (Auto) Cancelled, Baso % (Auto) Cancelled, Absolute Neuts (auto) Cancelled, Total Counted Cancelled, Neutrophils % (Manual) Cancelled, Band Neutrophils % Cancelled, Lymphocytes % ( Manual) Cancelled, Monocytes % (Manual) Cancelled, Eosinophils % (Manual) Cancelled, Basophils % (Manual) Cancelled, Metamyelocytes % Cancelled, Myelocytes % Cancelled, Promyelocytes % Cancelled, Blast Cells % Cancelled, Plasma Cell % (Manual) Cancelled, Other Cells % Cancelled 03/02/18 04:45: Sodium 142, Potassium 4.6, Chloride 112 H, Carbon Dioxide 22.0, Anion Gap 8, BUN 27 H, Creatinine 1.40 H, Est GFR (MDRD) Af Amer 46 L, Est GFR ( MDRD) Non-Af 38 L, BUN/Creatinine Ratio 19.3, Glucose 223 H, Calcium 8.5, Troponin I 0.15 H Rhythm: EKG: Initial EKG from March 01 1402 demonstrates supraventricular tachycardia with a rate of 164 bpm, follow-up EKG after conversion demonstrates normal sinus rhythm with a rate of 86 bpm left axis deviation Assessment/Plan 1. Supraventricular tachycardia. The etiology of the above is not entirely clear. She has had no previous obstructive coronary disease but she did have significant electrolyte abnormal 80s including renal dysfunction and hyperkalemia. My recommendation at this time would be to institute low-dose beta-katty and discontinue the lisinopril and observe her. Would recommend an echocardiogram to assess her left ventricular function and further recommendations will depend on the results of the above. 2. History of takutsobo cardiomyopathy She has had a previous history of apical ballooning syndrome but has been asymptomatic with no heart failure symptoms her last ejection fraction was estimated to be 45% in 2016 and this would be reevaluated. 3. Hyperlipidemia She does have a history of hyperlipidemia and will continue with primary risk factor modification. 4. Hyperkalemia Suggest discontinuation of the lisinopril. Thank you for allowing me to participate in the care of your patient. Please don't hesitate to call if any issues arise
[2018-03-02 07:00] LABS: Bedside Glucose 224 mg/dL (70-110)
[2018-03-02 07:14] LABS: Acanthocytes RARE; Anisocytosis 2+; Crenated RBC RARE; Hypochromasia 1+; Ovalocyte RARE
[2018-03-02 07:15] LABS: Differential Comment SCANNED
[2018-03-02] MEDS: Citalopram 10 MG Tablet PO (09:54)
[2018-03-02] MEDS: Tolterodine Tartrate 2 MG CAP.SA PO (09:54)
[2018-03-02] MEDS: Aspirin 81 MG TAB.CHEW PO (09:54)
[2018-03-02] MEDS: 0.9% Normal Saline 1,000 ML 75 ML IV (10:01)
--- NOTE | 2018-03-02 10:01 | CASEMGMT ---
Patient is from [facility]. FISHER faxed updates to Stella at [facility]. to follow for d/c planning. Marisel [employer]
--- NOTE | 2018-03-02 10:40 | PCM.PROGNOTE ---
<Brandi Simpson - Last Filed: 03/02/18 11:06> Patient Problems: Active and Suspected Problems (Last Reviewed 03/01/18 @ 13:10 by Victoria Fu) SVT (supraventricular tachycardia) (Acute) Pneumococcal pneumonia (Acute) Subjective: Patient seen and examined. Very pleasant. Denies current complaints. Denies shortness of breath, chest pain, palpitations. Daughter at bedside. Denies questions, concerns. - Physical Exam General: Alert, Oriented x3, Cooperative, No apparent distress HEENT: Atraumatic, PERRLA, EOMI, Normocephalic Oral: Dry Mucosa Neck: Supple, No JVD, Negative Carotid Bruits Lungs: Diminished, Rhonchi Cardiovascular: Regular rate, Regular Rhythm, Normal S1, Normal S2, No murmurs Abdomen: Bowel Sounds Present, Soft, Non Tender, Non-Distended Extremities: No clubbing, No cyanosis, No edema, Capillary Refill Less than 3 Seconds Skin: No rashes, No breakdown Musculoskeletal: No Tenderness to Palpation of Joints or Extremities Neurological: Cranial nerves II-XII grossly intact, Neuro grossly intact Psych/Mental Status: Normal Affect, Appropriate Vital Signs Temp Pulse Resp BP Pulse Ox 98.4 F 82 16 116/63 96 03/02/18 09:55 03/02/18 09:55 03/02/18 09:55 03/02/18 09:55 03/02/18 09:55 Oxygen Delivery Method Room Air Weight: 74 kg Body Mass Index (BMI) 29.8 Intake and Output for Last 24 Hours 02/28/18 03/01/18 03/02/18 23:59 23:59 23:59 Intake Total 749 / 749 589 / 589 Balance 749 / 749 589 / 589 Laboratory Tests Past 24 Hrs 03/01/18 03/01/18 03/01/18 18:55 18:55 18:55 WBC Corrected WBC RBC Hgb Hct MCV MCH MCHC RDW RDW Differential Plt Count MPV Immature Gran % (Auto) Neut % (Auto) Lymph % (Auto) [place] % (Auto) Eos % (Auto) Baso % (Auto) Absolute Neuts (auto) Absolute Lymphs (auto) Total Counted Neutrophils % (Manual) Band Neutrophils % Lymphocytes % (Manual) Monocytes % (Manual) Eosinophils % (Manual) Basophils % (Manual) Metamyelocytes % Myelocytes % Promyelocytes % Blast Cells % Plasma Cell % (Manual) Other Cells % Nucleated RBCs/100 WBC Differential Comment Diff Path Review Hypersegmented Neuts Atypical Lymphocytes Reactive Lymphocytes Smudge Cells Toxic Granulation Dohle Bodies Derek Rods Platelet Estimate Plt Morphology Comment RBC Morphology Polychromasia Hypochromasia Poikilocytosis Basophilic Stippling Anisocytosis Microcytosis Macrocytosis Spherocytes Sickle Cells Target Cells Tear Drop Cells Ovalocytes Stomatocytes Fox-Bergman Bodies Hettick Cells Bite Cells Acanthocytes (Spur) Rouleaux Schistocytes Sodium Potassium 5.1 Chloride Carbon Dioxide Anion Gap BUN Creatinine Estim Creat Clear Calc Est GFR (MDRD) Af Amer Est GFR (MDRD) Non-Af BUN/Creatinine Ratio Glucose Calcium Troponin I 0.15 H TSH 2.14 03/01/18 03/02/18 03/02/18 22:31 04:45 04:45 WBC Cancelled Corrected WBC Cancelled RBC Cancelled Hgb Cancelled Hct Cancelled MCV Cancelled MCH Cancelled MCHC Cancelled RDW Cancelled RDW Differential Cancelled Plt Count Cancelled MPV Cancelled Immature Gran % (Auto) Cancelled Neut % (Auto) Cancelled Lymph % (Auto) Cancelled [place] % (Auto) Cancelled Eos % (Auto) Cancelled Baso % (Auto) Cancelled Absolute Neuts (auto) Cancelled Absolute Lymphs (auto) Cancelled Total Counted Cancelled Neutrophils % (Manual) Cancelled Band Neutrophils % Cancelled Lymphocytes % (Manual) Cancelled Monocytes % (Manual) Cancelled Eosinophils % (Manual) Cancelled Basophils % (Manual) Cancelled Metamyelocytes % Cancelled Myelocytes % Cancelled Promyelocytes % Cancelled Blast Cells % Cancelled Plasma Cell % (Manual) Cancelled Other Cells % Cancelled Nucleated RBCs/100 WBC Cancelled Differential Comment Cancelled Diff Path Review Cancelled Hypersegmented Neuts Cancelled Atypical Lymphocytes Cancelled Reactive Lymphocytes Cancelled Smudge Cells Cancelled Toxic Granulation Cancelled Dohle Bodies Cancelled Derek Rods Cancelled Platelet Estimate Cancelled Plt Morphology Comment Cancelled RBC Morphology Cancelled Polychromasia Cancelled Hypochromasia Cancelled Poikilocytosis Cancelled Basophilic Stippling Cancelled Anisocytosis Cancelled Microcytosis Cancelled Macrocytosis Cancelled Spherocytes Cancelled Sickle Cells Cancelled Target Cells Cancelled Tear Drop Cells Cancelled Ovalocytes Cancelled Stomatocytes Cancelled Fox-Bergman Bodies Cancelled Compa Cells Cancelled Bite Cells Cancelled Acanthocytes (Spur) Cancelled Rouleaux Cancelled Schistocytes Cancelled Sodium 142 Potassium 4.6 Chloride 112 H Carbon Dioxide 22.0 Anion Gap 8 BUN 27 H Creatinine 1.40 H Estim Creat Clear Calc 24.93 Est GFR (MDRD) Af Amer 46 L Est GFR (MDRD) Non-Af 38 L BUN/Creatinine Ratio 19.3 Glucose 223 H Calcium 8.5 Troponin I 0.19 H 0.15 H TSH 03/02/18 05:50 WBC 9.5 Corrected WBC RBC 2.80 L Hgb 9.5 L Hct 28.3 L MCV 101.1 H MCH 33.9 H MCHC 33.6 RDW 13.4 RDW Differential 49.9 H Plt Count 245 MPV 9.5 Immature Gran % (Auto) 0.800 Neut % (Auto) 71.2 H Lymph % (Auto) 15.5 L [place] % (Auto) 7.5 Eos % (Auto) 4.6 Baso % (Auto) 0.4 Absolute Neuts (auto) 6.8 Absolute Lymphs (auto) 1.47 Total Counted Not Reportable Neutrophils % (Manual) Band Neutrophils % Lymphocytes % (Manual) Monocytes % (Manual) Eosinophils % (Manual) Basophils % (Manual) Metamyelocytes % Myelocytes % Promyelocytes % Blast Cells % Plasma Cell % (Manual) Other Cells % Nucleated RBCs/100 WBC Differential Comment SCANNED Diff Path Review Hypersegmented Neuts Atypical Lymphocytes Reactive Lymphocytes Smudge Cells Toxic Granulation Dohle Bodies Derek Rods Platelet Estimate Plt Morphology Comment RBC Morphology RARE Polychromasia Hypochromasia 1+ Poikilocytosis Basophilic Stippling Anisocytosis 2+ Microcytosis Macrocytosis Spherocytes Sickle Cells Target Cells Tear Drop Cells Ovalocytes RARE Stomatocytes Fox-Bergman Bodies Hettick Cells Bite Cells Acanthocytes (Spur) RARE Rouleaux Schistocytes Sodium Potassium Chloride Carbon Dioxide Anion Gap BUN Creatinine Estim Creat Clear Calc Est GFR (MDRD) Af Amer Est GFR (MDRD) Non-Af BUN/Creatinine Ratio Glucose Calcium Troponin I TSH POC Glucose 03/02/18 03/01/18 03/01/18 06:55 22:31 16:10 POC Glucose 224 H 339 H 264 H Medical Necessity - Tobacco Use Smoking Status: Never smoker Assessment/Plan Active and Suspected Problems (Last Reviewed 03/01/18 @ 13:10 by Victoria Fu) SVT (supraventricular tachycardia) (Acute) Pneumococcal pneumonia (Acute) Patient is an 82-year-old female admitted 03/01/18 due to SVT and shortness of breath. Patient was sent from Dr. Ross's office. She has a past medical history of takotsubo cardiomyopathy, CAD, hypothyroidism, COPD, hyperlipidemia, type 2 diabetes mellitus, hypertension, depression. 1. SVT-resolved status post chemical cardioversion with 2 doses of IV adenosine. Remains sinus rhythm. Cardiology consulted. Echocardiogram pending. TSH within normal limits. Check magnesium. Begin low-dose beta-katty per cardiology recommendation. Lisinopril discontinued. Monitor telemetry. 2. Acute community-acquired right lower lobe pneumonia, suspect gram-negative organism-chest x-ray on admission showed right lower lobe infiltrate. Blood cultures pending. Send sputum for culture. Albuterol aerosol as needed for shortness of breath. Continue IV azithromycin and Rocephin. Leukocytosis resolved. Patient afebrile. PEP/IS. Urine for strep and Legionella negative. 3. Acute kidney injury on chronic kidney disease stage III-significantly improved with IV fluids. Monitor BMP. 4. Hyperkalemia-secondary #3. Resolved. Patient received Kayexalate, sodium bicarb and IV insulin. 5. Elevated troponin-suspect demand ischemia secondary to #1. Cardiology following. Echocardiogram pending. 6. CAD-continue aspirin, statin. Low-dose beta-katty added. 7. History of takotsubo cardiomyopathy-Echocardiogram August 2016 showed an EF of 45%. Repeat echocardiogram pending. 8. Type 2 diabetes mellitus-hemoglobin A1c December 2017 was 9.1%. Home metformin regimen on hold. Accu-Cheks before meals at bedtime with sliding scale insulin. Continue home Levemir regimen. 9. Hypothyroidism-TSH within normal limits. Continue home Synthroid regimen. 10. Hyperlipidemia-continue statin. 11. Hypertension-stable. Home lisinopril discontinued secondary to #3. Started on metoprolol 12.5 mg twice daily. Continue to monitor. 12. Depression- Continue home celexa regimen. 13. Chronic macrocytic anemia-stable. Monitor CBC. Baseline hemoglobin 10.5. DVT prophylaxis-heparin subcu. This patient was seen by LEONARDO Alejandra under the supervision of Dr. Bartholomew. <Yefri Bartholomew - Last Filed: 03/02/18 12:33> Subjective: No new events. - Physical Exam General: Alert, No apparent distress HEENT: Atraumatic, Normocephalic Cardiovascular: Regular rate, Regular Rhythm, Normal S1, Normal S2 Abdomen: Bowel Sounds Present, Soft, Non Tender, Non-Distended Extremities: No edema, No Calf Tenderness Skin: No rashes, No breakdown Psych/Mental Status: Normal Affect, Appropriate Vital Signs Temp Pulse Resp BP Pulse Ox 36.9 C 76 16 116/63 96 03/02/18 09:55 03/02/18 11:20 03/02/18 09:55 03/02/18 09:55 03/02/18 09:55 Oxygen Delivery Method Room Air Weight: 74 kg Body Mass Index (BMI) 29.8 Intake and Output for Last 24 Hours 02/28/18 03/01/18 03/02/18 23:59 23:59 23:59 Intake Total 749 / 749 1482 / 1482 Balance 749 / 749 1482 / 1482 Laboratory Tests Past 24 Hrs 03/01/18 03/01/18 03/01/18 18:55 18:55 18:55 WBC Corrected WBC RBC Hgb Hct MCV MCH MCHC RDW RDW Differential Plt Count MPV Immature Gran % (Auto) Neut % (Auto) Lymph % (Auto) [place] % (Auto) Eos % (Auto) Baso % (Auto) Absolute Neuts (auto) Absolute Lymphs (auto) Total Counted Neutrophils % (Manual) Band Neutrophils % Lymphocytes % (Manual) Monocytes % (Manual) Eosinophils % (Manual) Basophils % (Manual) Metamyelocytes % Myelocytes % Promyelocytes % Blast Cells % Plasma Cell % (Manual) Other Cells % Nucleated RBCs/100 WBC Differential Comment Diff Path Review Hypersegmented Neuts Atypical Lymphocytes Reactive Lymphocytes Smudge Cells Toxic Granulation Dohle Bodies Derek Rods Platelet Estimate Plt Morphology Comment RBC Morphology Polychromasia Hypochromasia Poikilocytosis Basophilic Stippling Anisocytosis Microcytosis Macrocytosis Spherocytes Sickle Cells Target Cells Tear Drop Cells Ovalocytes Stomatocytes Fox-Bergman Bodies Compa Cells Bite Cells Acanthocytes (Spur) Rouleaux Schistocytes Sodium Potassium 5.1 Chloride Carbon Dioxide Anion Gap BUN Creatinine Estim Creat Clear Calc Est GFR (MDRD) Af Amer Est GFR (MDRD) Non-Af BUN/Creatinine Ratio Glucose Calcium Magnesium Troponin I 0.15 H TSH 2.14 03/01/18 03/02/18 03/02/18 22:31 04:45 04:45 WBC Cancelled Corrected WBC Cancelled RBC Cancelled Hgb Cancelled Hct Cancelled MCV Cancelled MCH Cancelled MCHC Cancelled RDW Cancelled RDW Differential Cancelled Plt Count Cancelled MPV Cancelled Immature Gran % (Auto) Cancelled Neut % (Auto) Cancelled Lymph % (Auto) Cancelled [place] % (Auto) Cancelled Eos % (Auto) Cancelled Baso % (Auto) Cancelled Absolute Neuts (auto) Cancelled Absolute Lymphs (auto) Cancelled Total Counted Cancelled Neutrophils % (Manual) Cancelled Band Neutrophils % Cancelled Lymphocytes % (Manual) Cancelled Monocytes % (Manual) Cancelled Eosinophils % (Manual) Cancelled Basophils % (Manual) Cancelled Metamyelocytes % Cancelled Myelocytes % Cancelled Promyelocytes % Cancelled Blast Cells % Cancelled Plasma Cell % (Manual) Cancelled Other Cells % Cancelled Nucleated RBCs/100 WBC Cancelled Differential Comment Cancelled Diff Path Review Cancelled Hypersegmented Neuts Cancelled Atypical Lymphocytes Cancelled Reactive Lymphocytes Cancelled Smudge Cells Cancelled Toxic Granulation Cancelled Dohle Bodies Cancelled Derek Rods Cancelled Platelet Estimate Cancelled Plt Morphology Comment Cancelled RBC Morphology Cancelled Polychromasia Cancelled Hypochromasia Cancelled Poikilocytosis Cancelled Basophilic Stippling Cancelled Anisocytosis Cancelled Microcytosis Cancelled Macrocytosis Cancelled Spherocytes Cancelled Sickle Cells Cancelled Target Cells Cancelled Tear Drop Cells Cancelled Ovalocytes Cancelled Stomatocytes Cancelled Fox-Bergman Bodies Cancelled Hettick Cells Cancelled Bite Cells Cancelled Acanthocytes (Spur) Cancelled Rouleaux Cancelled Schistocytes Cancelled Sodium 142 Potassium 4.6 Chloride 112 H Carbon Dioxide 22.0 Anion Gap 8 BUN 27 H Creatinine 1.40 H Estim Creat Clear Calc 24.93 Est GFR (MDRD) Af Amer 46 L Est GFR (MDRD) Non-Af 38 L BUN/Creatinine Ratio 19.3 Glucose 223 H Calcium 8.5 Magnesium Troponin I 0.19 H 0.15 H TSH 03/02/18 03/02/18 04:45 05:50 WBC 9.5 Corrected WBC RBC 2.80 L Hgb 9.5 L Hct 28.3 L MCV 101.1 H MCH 33.9 H MCHC 33.6 RDW 13.4 RDW Differential 49.9 H Plt Count 245 MPV 9.5 Immature Gran % (Auto) 0.800 Neut % (Auto) 71.2 H Lymph % (Auto) 15.5 L [place] % (Auto) 7.5 Eos % (Auto) 4.6 Baso % (Auto) 0.4 Absolute Neuts (auto) 6.8 Absolute Lymphs (auto) 1.47 Total Counted Not Reportable Neutrophils % (Manual) Band Neutrophils % Lymphocytes % (Manual) Monocytes % (Manual) Eosinophils % (Manual) Basophils % (Manual) Metamyelocytes % Myelocytes % Promyelocytes % Blast Cells % Plasma Cell % (Manual) Other Cells % Nucleated RBCs/100 WBC Differential Comment SCANNED Diff Path Review Hypersegmented Neuts Atypical Lymphocytes Reactive Lymphocytes Smudge Cells Toxic Granulation Dohle Bodies Derek Rods Platelet Estimate Plt Morphology Comment RBC Morphology RARE Polychromasia Hypochromasia 1+ Poikilocytosis Basophilic Stippling Anisocytosis 2+ Microcytosis Macrocytosis Spherocytes Sickle Cells Target Cells Tear Drop Cells Ovalocytes RARE Stomatocytes Fox-Bergman Bodies Compa Cells Bite Cells Acanthocytes (Spur) RARE Rouleaux Schistocytes Sodium Potassium Chloride Carbon Dioxide Anion Gap BUN Creatinine Estim Creat Clear Calc Est GFR (MDRD) Af Amer Est GFR (MDRD) Non-Af BUN/Creatinine Ratio Glucose Calcium Magnesium 1.5 L Troponin I TSH POC Glucose 03/02/18 03/01/18 03/01/18 06:55 22:31 16:10 POC Glucose 224 H 339 H 264 H Assessment/Plan Patient seen and examined independently. I agree with the above nurse practitioner note. 1. Supraventricular tachycardia: Currently rate controlled. She is on metoprolol. Currently waiting on echocardiogram. 2. Suspected pneumococcal pneumonia. Currently on azithromycin and Rocephin. Code Visit Inpatient E&M: 31538 Subs Hosp L2
[2018-03-02] MEDS: Ceftriaxone 1 GM/50 ML BAG IV (10:59)
[2018-03-02 11:20] LABS: Magnesium 1.5 mg/dL (1.6-2.6)
[2018-03-02 13:31] LABS: Bedside Glucose 370 mg/dL (70-110)
--- NOTE | 2018-03-02 13:49 | CASEMGMT ---
SW received a vm from Stella asking about patient's PT/OT notes. SW faxed PT/OT evaluations. SW also called and left her a vm letting her know patient won't be ready today. Marisel WHITE MSW
[2018-03-02 15:31] LABS: Bedside Glucose 465 mg/dL (70-110)
[2018-03-02 16:11] LABS: Bedside Glucose 64 mg/dL (70-110)
--- NOTE | 2018-03-02 16:58 | CHAPLAIN ---
Type of Pastoral Visit _x__ Initial Visit ___ Follow-up Visit ___ On-call Visit ___ General Patient Visit ___ Spiritual Assessment ___ Family Conference ___ Bereavement ___ Rapid Response ___ Code Blue ___ Other (describe below) Pastoral Care Referral From _x__ Patient ___ Family ___ Nurse ___ Physician ___ Medicaid Nurse ___ Cleat Feeder ___ Other (describe below) Sacrament/Intervention _x__ Active listening ___ Anointing ___ Pentecostalism ___ Bereavement ___ Communion ___ Marifer exploration ___ _x__ Life review _x__ Prayer ___ Reconciliation ___ Sacrament of Sick _x__ Supportive presence ___ Wedding ___ Other (describe below) Pastoral Comments
[2018-03-02] MEDS: Atorvastatin Calcium 20 MG Tablet PO (21:11)
[2018-03-02] MEDS: traZODone 50 MG Tablet PO (21:11)
[2018-03-02] MEDS: Metoprolol Tartrate 25 MG Tablet 12.5 MG PO (21:11)
[2018-03-02 22:35] LABS: Bedside Glucose 249 mg/dL (70-110)
[2018-03-03] VITALS (7 sets, daily range): BP systolic 121–149; BP diastolic 66–69; PULSE 63–75; RESP 14–16; TEMP 36.7–37.2; O2SAT 94–98
[2018-03-03] MEDS: 0.9% Normal Saline 1,000 ML 75 ML IV (02:31)
[2018-03-03] MEDS: Levothyroxine 25 MCG TABLET PO (05:58)
[2018-03-03] MEDS: Heparin Injection (Vial) 5,000 UNIT/ML VIAL 5000 UNIT SC (05:58)
[2018-03-03 06:27] LABS: Hematocrit 28.7 % (37-47); Hemoglobin 9.6 g/dl (12.0-15.0); Mean Corp Hgb Conc 33.4 g/gl (32-36); Mean Corpuscular Hgb 33.4 pg (27.0-32.0); Mean Platelet Vol. 8.8 fl (6.2-12.0); Platelet Count 278 K/mm3 (150-450); RBC Distribution Width CV 13.2 % (11.6-14.6); RBC Distribution Width SD 48.2 fl (35.1-43.9); Red Blood Count 2.87 M/mm3 (4.2-5.4); White Blood Count 12.1 K/mm3 (4.4-11.0)
[2018-03-03 06:31] LABS: Scan Indicated on CBC? Y/N NO
[2018-03-03 06:44] LABS: Anion Gap 11 (5-15); BUN 14 mg/dL (7-18); BUN/Creat Ratio 14.1 RATIO (10-20); Calcium,Total 7.7 mg/dL (8.5-10.1); Chloride 112 mmol/L (98-107); Creatinine, Serum 0.99 mg/dL (0.55-1.02); EST Glomerular Filtration Rate 57 mL/min (>60); Est Glom Filt Rate - Afr Amer 69 mL/min (>60); Estimated Creatinine Clearance 35.25 ml/min; Glucose 80 mg/dL (74-106); Sodium Level 142 mmol/L (136-145)
[2018-03-03 07:36] LABS: Bedside Glucose 105 mg/dL (70-110)
[2018-03-03] MEDS: Ceftriaxone 1 GM/50 ML BAG IV (09:43)
[2018-03-03] MEDS: Citalopram 10 MG Tablet PO (09:43)
[2018-03-03] MEDS: Metoprolol Tartrate 25 MG Tablet 12.5 MG PO (09:43)
[2018-03-03] MEDS: Aspirin 81 MG TAB.CHEW PO (09:44)
[2018-03-03] MEDS: Tolterodine Tartrate 2 MG CAP.SA PO (09:44)
--- NOTE | 2018-03-03 09:49 | CASEMGMT ---
PHILLIP called Stella at [facility] and left her a voice mail letting her know patient may be returning today. Marisel WHITE MSW
--- NOTE | 2018-03-03 10:19 | PCM.DC ---
- Discharge Diagnoses Current Active Problems: Current Active and Chronic Problems (Last Reviewed 03/01/18 @ 13:10 by Victoria Fu) Pneumococcal pneumonia (Acute) SVT (supraventricular tachycardia) (Acute) You will use the following diet at home:: Other - Carb control Discharge Activity: Return to Normal Activity Call your doctor if you observe: Shortness of breath, Dizziness, Fainting spells, Chest pain, Increased palpitations (irregular heartbeat) Allergies/Adverse Reactions: Allergies Sulfa (Sulfonamide Antibiotics) Allergy (Unknown, Verified 03/01/18 14:05) Unknown adhesive tape Allergy (Verified 03/01/18 14:05) Other codeine Allergy (Verified 03/01/18 14:05) HEART ATTACK Latex, Natural Rubber Allergy (Verified 03/01/18 14:05) Rash levofloxacin [From Levaquin] Allergy (Verified 03/01/18 14:05) Anaphylaxis Penicillins Allergy (Verified 03/01/18 14:05) Rash acetaminophen [From Vicodin] Adverse Reaction (Verified 03/01/18 14:05) Chest tightness hydrocodone bitartrate [From Vicodin] Adverse Reaction (Verified 03/01/18 14:05) Chest tightness Medications to take at Discharge Levothyroxine [Synthroid] 25 mcg PO DAILY 05/23/16 Meloxicam [Mobic] 15 mg PO QODAY 05/23/16 Multivit with Calcium,Iron,Min [Multiple Vitamins For Women] 1 tab PO DAILY 05/23/16 Trazodone HCl 50 mg PO QHS 05/23/16 Insulin Detemir [Levemir FlexPen] 24 units SC DAILY 03/26/17 Ubidecarenone [Coenzyme Q-10] 200 mg PO DAILY 03/26/17 Vitamin E 400 unit PO DAILY 03/26/17 ergocalciferol (vitamin D2) 50,000 unit capsule 50,000 unit PO QMONTH 01/15/18 Atorvastatin Calcium [Lipitor] 20 mg PO QHS 03/01/18 Fluticasone/Salmeterol [Advair 500-50 Diskus] 1 each IH BID 03/01/18 Metformin HCl [Glucophage] 1,000 mg PO BIDCM 03/01/18 megestrol 20 mg tablet 10 mg PO TID tab 03/01/18 ondansetron HCl 4 mg tablet 4 mg PO Q8H PRN tab 03/01/18 oxybutynin chloride ER 10 mg tablet,extended release 24 hr 10 mg PO DAILY 03/01/18 Aspirin [Aspirin, Baby] 81 mg PO DAILY@0800 #30 tab.chew 03/03/18 Cefdinir 300 mg PO BID #10 cap 03/03/18 Doxycycline 100 mg PO BID #10 cap 03/03/18 Metoprolol Tartrate [Lopressor (beta katty)] 12.5 mg PO BID #60 tab 03/03/18 The following prescriptions were given: Aspirin [Aspirin, Baby] 81 mg PO DAILY@0800 #30 tab.chew Cefdinir 300 mg PO BID #10 cap Doxycycline 100 mg PO BID #10 cap Metoprolol Tartrate [Lopressor (beta katty)] 12.5 mg PO BID #60 tab Primary Care Physician: Yao Yousif DO [Primary Care Provider] - Please follow up with your Primary Care Physician in: 1 Week Please Follow Up With: Markus Cueto MD When: 1-2 Weeks Proposed Discharge Date: 03/03/18
--- NOTE | 2018-03-03 10:22 | PCM.DC.SUM ---
<Brandi Simpson - Last Filed: 03/03/18 10:31> Discharge Date and Diagnosis Date of Admission: 03/01/18 Date of Discharge: 03/03/18 - Primary Discharge Diagnosis Active and Suspected Problems (Last Reviewed 03/01/18 @ 13:10 by Victoria Fu) 1. SVT 2. Acute community-acquired right lower lobe pneumonia, suspected gram-negative 3. Acute kidney injury on chronic kidney disease stage III 4. Hyperkalemia-secondary to #3. 5. Elevated troponin-demand ischemia secondary to #1. 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 Cueto- Cardiology Operations: None Procedures: 2-D Echocardiogram Summary of Care Provided: Patient is an 82-year-old female admitted 03/01/18 due to SVT and shortness of breath. Patient was sent from Dr. Ross's office. She has a past medical history of takotsubo cardiomyopathy, CAD, hypothyroidism, COPD, hyperlipidemia, type 2 diabetes mellitus, hypertension, depression. 1. SVT-resolved status post chemical cardioversion with 2 doses of IV adenosine. No further events on telemetry. TSH within normal limits. Begin low-dose beta-katty per cardiology recommendation. Lisinopril discontinued. Follow-up with Dr. Cueto as outpatient in 1-2 weeks. 2. Acute community-acquired right lower lobe pneumonia, suspect gram-negative organism-chest x-ray on admission showed right lower lobe infiltrate. Blood cultures . Send sputum for culture shows staph, suspect contamination. Patient received IV azithromycin and Rocephin. Leukocytosis improved. Patient afebrile. Urine for strep and Legionella negative Patient will be discharged on further oral antibiotic therapy with cefdinir and doxycycline. 3. Acute kidney injury on chronic kidney disease stage III-resolved with IV fluids. 4. Hyperkalemia-secondary #3. Resolved. Patient received Kayexalate, sodium bicarb and IV insulin. 5. Elevated troponin-suspect demand ischemia secondary to #1. Cardiology consulted. Echocardiogram shows an ejection fraction of 65%, mild mitral valve insufficiency, mild tricuspid valve insufficiency, mild aortic valve calcification, RVSP estimated to be 37 mmHg. Continue outpatient follow-up with Dr. Cueto. 6. CAD-continue aspirin, statin. Low-dose beta-katty added. 7. History of takotsubo cardiomyopathy-Echocardiogram August 2016 showed an EF of 45%. Repeat echocardiogram shows an ejection fraction of 65%, mild mitral valve insufficiency, mild tricuspid valve insufficiency, mild aortic valve calcification, RVSP estimated to be 37 mmHg. 8. Type 2 diabetes mellitus-hemoglobin A1c December 2017 was 9.1%. Blood glucose elevated intermittently during admission. Metformin regimen has been on hold. Continue home Levemir regimen. Recommend Accu-Cheks before meals at bedtime with addition of sliding scale insulin if blood sugar is not improved at discharge. 9. Hypothyroidism-TSH within normal limits. Continue home Synthroid regimen. 10. Hyperlipidemia-continue statin. 11. Hypertension-home lisinopril regimen discontinued. Started on metoprolol 12.5 mg twice daily. 12. Depression-previously on SSRI. No longer taking. 13. Chronic macrocytic anemia-stable. General: Alert, Oriented x3, Cooperative, No apparent distress HEENT: Atraumatic, PERRLA, EOMI, Normocephalic Oral: Dry Mucosa Neck: Supple, No JVD, Negative Carotid Bruits Lungs: Diminished, clear to auscultation Cardiovascular: Regular rate, Regular Rhythm, Normal S1, Normal S2, No murmurs Abdomen: Bowel Sounds Present, Soft, Non Tender, Non-Distended Extremities: No clubbing, No cyanosis, No edema, Capillary Refill Less than 3 Seconds Skin: No rashes, No breakdown Musculoskeletal: No Tenderness to Palpation of Joints or Extremities Neurological: Cranial nerves II-XII grossly intact, Neuro grossly intact Psych/Mental Status: Normal Affect, Appropriate Patient seen and examined prior to discharge. Physical assessment as noted above. Patient is stable for discharge to assisted living facility. This patient was seen by LEONARDO Alejandra under the supervision of Dr. Bartholomew. Discharge Activity: Return to Normal Activity Call your doctor if you observe: Shortness of breath, Dizziness, Fainting spells, Chest pain, Increased palpitations (irregular heartbeat) Home Medications: Medications to take at Discharge Levothyroxine [Synthroid] 25 mcg PO DAILY@0600 05/23/16 Meloxicam [Mobic] 15 mg PO QODAY 05/23/16 Multivit with Calcium,Iron,Min [Multiple Vitamins For Women] 1 tab PO DAILY 05/23/16 Trazodone HCl 50 mg PO QHS 05/23/16 Insulin Detemir [Levemir FlexPen] 24 units SC QHS 03/26/17 Ubidecarenone [Coenzyme Q-10] 200 mg PO DAILY 03/26/17 Vitamin E 400 unit PO DAILY 03/26/17 ergocalciferol (vitamin D2) 50,000 unit capsule 50,000 unit PO QMONTH 01/15/18 Atorvastatin Calcium [Lipitor] 20 mg PO QHS 03/01/18 Fluticasone/Salmeterol [Advair 500-50 Diskus] 1 each IH BID 03/01/18 Metformin HCl [Glucophage] 1,000 mg PO BIDCM 03/01/18 megestrol 20 mg tablet 10 mg PO TID tab 03/01/18 ondansetron HCl 4 mg tablet 4 mg PO Q8H PRN tab 03/01/18 oxybutynin chloride ER 10 mg tablet,extended release 24 hr 10 mg PO QHS 03/01/18 Aspirin [Aspirin, Baby] 81 mg PO DAILY@0800 #30 tab.chew 03/03/18 Cefdinir 300 mg PO BID #10 cap 03/03/18 Doxycycline 100 mg PO BID #10 cap 03/03/18 Metoprolol Tartrate [Lopressor (beta katty)] 12.5 mg PO BID #60 tab 03/03/18 Following Prescrptions Were Given to Patient: Aspirin [Aspirin, Baby] 81 mg PO DAILY@0800 #30 tab.chew Cefdinir 300 mg PO BID #10 cap Doxycycline 100 mg PO BID #10 cap Metoprolol Tartrate [Lopressor (beta katty)] 12.5 mg PO BID #60 tab Primary Care Physician: Yao Yousif DO [Primary Care Provider] - Please follow up with your Primary Care Physician in: 1 Week Please Follow Up With: Markus Cueto MD When: 1-2 Weeks Disposition: Asstd Living/Non-Skill NH Minutes spent on discharge:: 35 Patient Condition:: Stable Medical Necessity - Tobacco Use Smoking Status: Never smoker Meaningful Use Info Meaningful Use Diagnoses (Choose all that apply): None applicable <Yefri Bartholomew - Last Filed: 03/03/18 13:25> Discharge Date and Diagnosis - Secondary Discharge Diagnosis Chronic Problems (Last Reviewed 03/01/18 @ 13:10 by Victoria Fu) Takotsubo cardiomyopathy (Chronic) Nonrheumatic tricuspid (valve) insufficiency (Chronic) 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 I agree with the above [employer] note. The patient is a 82 year old F presents with SVT. Received 2 rounds of adenosine. Started on low-dose beta-katty. She did well. Patient also found to have a RLL infiltration. Started on cetriaxone and azithromycin. Did well with this, too. Discharged with doxycycline and cefdinir.[] Discharge Diet: No Restrictions Discharge Activity: Return to Normal Activity Call your doctor if you observe: Shortness of breath, Dizziness, Fainting spells, Chest pain, Increased palpitations (irregular heartbeat) Disposition: Asstd Living/Non-Skill [place] Patient Condition:: Stable Medical Necessity - Tobacco Use Smoking Status: Never smoker Meaningful Use Info Meaningful Use Diagnoses (Choose all that apply): None applicable Code Visit Inpatient E&M: 48736 Disch Hosp
--- NOTE | 2018-03-03 10:30 | DS.PCM_ITS ---
<Brandi Simpson - Last Filed: 03/03/18 10:31> Discharge Date and Diagnosis Date of Admission: 03/01/18 Date of Discharge: 03/03/18 - Primary Discharge Diagnosis Active and Suspected Problems (Last Reviewed 03/01/18 @ 13:10 by Victoria Fu) 1. SVT 2. Acute community-acquired right lower lobe pneumonia, suspected gram-negative 3. Acute kidney injury on chronic kidney disease stage III 4. Hyperkalemia-secondary to #3. 5. Elevated troponin-demand ischemia secondary to #1. 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 Cueto- Cardiology Operations: None Procedures: 2-D Echocardiogram Summary of Care Provided: Patient is an 82-year-old female admitted 03/01/18 due to SVT and shortness of breath. Patient was sent from Dr. Ross's office. She has a past medical history of takotsubo cardiomyopathy, CAD, hypothyroidism, COPD, hyperlipidemia, type 2 diabetes mellitus, hypertension, depression. 1. SVT-resolved status post chemical cardioversion with 2 doses of IV adenosine. No further events on telemetry. TSH within normal limits. Begin low -dose beta-katty per cardiology recommendation. Lisinopril discontinued. Follow-up with Dr. Cueto as outpatient in 1-2 weeks. 2. Acute community-acquired right lower lobe pneumonia, suspect gram-negative organism-chest x-ray on admission showed right lower lobe infiltrate. Blood cultures . Send sputum for culture shows staph, suspect contamination. Patient received IV azithromycin and Rocephin. Leukocytosis improved. Patient afebrile. Urine for strep and Legionella negative Patient will be discharged on further oral antibiotic therapy with cefdinir and doxycycline. 3. Acute kidney injury on chronic kidney disease stage III-resolved with IV fluids. 4. Hyperkalemia-secondary #3. Resolved. Patient received Kayexalate, sodium bicarb and IV insulin. 5. Elevated troponin-suspect demand ischemia secondary to #1. Cardiology consulted. Echocardiogram shows an ejection fraction of 65%, mild mitral valve insufficiency, mild tricuspid valve insufficiency, mild aortic valve calcification, RVSP estimated to be 37 mmHg. Continue outpatient follow-up with Dr. Cueto. 6. CAD-continue aspirin, statin. Low-dose beta-katty added. 7. History of takotsubo cardiomyopathy-Echocardiogram August 2016 showed an EF of 45%. Repeat echocardiogram shows an ejection fraction of 65%, mild mitral valve insufficiency, mild tricuspid valve insufficiency, mild aortic valve calcification, RVSP estimated to be 37 mmHg. 8. Type 2 diabetes mellitus-hemoglobin A1c December 2017 was 9.1%. Blood glucose elevated intermittently during admission. Metformin regimen has been on hold. Continue home Levemir regimen. Recommend Accu-Cheks before meals at bedtime with addition of sliding scale insulin if blood sugar is not improved at discharge. 9. Hypothyroidism-TSH within normal limits. Continue home Synthroid regimen. 10. Hyperlipidemia-continue statin. 11. Hypertension-home lisinopril regimen discontinued. Started on metoprolol 12.5 mg twice daily. 12. Depression-previously on SSRI. No longer taking. 13. Chronic macrocytic anemia-stable. General: Alert, Oriented x3, Cooperative, No apparent distress HEENT: Atraumatic, PERRLA, EOMI, Normocephalic Oral: Dry Mucosa Neck: Supple, No JVD, Negative Carotid Bruits Lungs: Diminished, clear to auscultation Cardiovascular: Regular rate, Regular Rhythm, Normal S1, Normal S2, No murmurs Abdomen: Bowel Sounds Present, Soft, Non Tender, Non-Distended Extremities: No clubbing, No cyanosis, No edema, Capillary Refill Less than 3 Seconds Skin: No rashes, No breakdown Musculoskeletal: No Tenderness to Palpation of Joints or Extremities Neurological: Cranial nerves II-XII grossly intact, Neuro grossly intact Psych/Mental Status: Normal Affect, Appropriate Patient seen and examined prior to discharge. Physical assessment as noted above. Patient is stable for discharge to assisted living facility. This patient was seen by LEONARDO Alejandra under the supervision of Dr. Bartholomew. Discharge Activity: Return to Normal Activity Call your doctor if you observe: Shortness of breath, Dizziness, Fainting spells , Chest pain, Increased palpitations (irregular heartbeat) Home Medications: Medications to take at Discharge Levothyroxine [Synthroid] 25 mcg PO DAILY@0600 05/23/16 Meloxicam [Mobic] 15 mg PO QODAY 05/23/16 Multivit with Calcium,Iron,Min [Multiple Vitamins For Women] 1 tab PO DAILY Trazodone HCl 50 mg PO QHS 05/23/16 Insulin Detemir [Levemir FlexPen] 24 units SC QHS 03/26/17 Ubidecarenone [Coenzyme Q-10] 200 mg PO DAILY 03/26/17 Vitamin E 400 unit PO DAILY 03/26/17 ergocalciferol (vitamin D2) 50,000 unit capsule 50,000 unit PO QMONTH 01/15/18 Atorvastatin Calcium [Lipitor] 20 mg PO QHS 03/01/18 Fluticasone/Salmeterol [Advair 500-50 Diskus] 1 each IH BID 03/01/18 Metformin HCl [Glucophage] 1,000 mg PO BIDCM 03/01/18 megestrol 20 mg tablet 10 mg PO TID tab 03/01/18 ondansetron HCl 4 mg tablet 4 mg PO Q8H PRN tab 03/01/18 oxybutynin chloride ER 10 mg tablet,extended release 24 hr 10 mg PO QHS Aspirin [Aspirin, Baby] 81 mg PO DAILY@0800 #30 tab.chew 03/03/18 Cefdinir 300 mg PO BID #10 cap 03/03/18 Doxycycline 100 mg PO BID #10 cap 03/03/18 Metoprolol Tartrate [Lopressor (beta katty)] 12.5 mg PO BID #60 tab 03/03/18 Following Prescrptions Were Given to Patient: Aspirin [Aspirin, Baby] 81 mg PO DAILY@0800 #30 tab.chew Cefdinir 300 mg PO BID #10 cap Doxycycline 100 mg PO BID #10 cap Metoprolol Tartrate [Lopressor (beta katty)] 12.5 mg PO BID #60 tab Primary Care Physician: Yao Yousif DO [Primary Care Provider] - Please follow up with your Primary Care Physician in: 1 Week Please Follow Up With: Markus Cueto MD When: 1-2 Weeks Disposition: Asstd Living/Non-Skill NH Minutes spent on discharge:: 35 Patient Condition:: Stable Medical Necessity - Tobacco Use Smoking Status: Never smoker Meaningful Use Info Meaningful Use Diagnoses (Choose all that apply): None applicable <Yefri Bartholomew - Last Filed: 03/03/18 13:25> Discharge Date and Diagnosis - Secondary Discharge Diagnosis Chronic Problems (Last Reviewed 03/01/18 @ 13:10 by Victoria Fu) Takotsubo cardiomyopathy (Chronic) Nonrheumatic tricuspid (valve) insufficiency (Chronic) Atherosclerotic heart disease of [place] coronary artery without angina pectoris (Chronic) Mild Hypothyroidism (Chronic) COPD (chronic obstructive pulmonary disease) (Chronic) Hyperlipidemia (Chronic) Type 2 diabetes mellitus (Chronic) Hospital Course and Treatment Operations: None Procedures: 2-D Echocardiogram Summary of Care Provided: Pt seen and examined independently. I agree with the above [employer] note. The patient is a 82 year old F presents with SVT. Received 2 rounds of adenosine. Started on low-dose beta-katty. She did well. Patient also found to have a RLL infiltration. Started on cetriaxone and azithromycin. Did well with this, too. Discharged with doxycycline and cefdinir.[] Discharge Diet: No Restrictions Discharge Activity: Return to Normal Activity Call your doctor if you observe: Shortness of breath, Dizziness, Fainting spells , Chest pain, Increased palpitations (irregular heartbeat) Disposition: Asstd Living/Non-Skill [place] Patient Condition:: Stable Medical Necessity - Tobacco Use Smoking Status: Never smoker Meaningful Use Info Meaningful Use Diagnoses (Choose all that apply): None applicable Code Visit Inpatient E&M: 73414 Disch Hosp
--- NOTE | 2018-03-03 10:48 | CASEMGMT ---
Patient is ready to be d/c back to [facility]. PHILLIP faxed d/c instructions to [facility]. PHILLIP also called Dede at [facility] and let her know patient will be returning, but this will not be until later on today. PHILLIP spoke with patient and her daughter letting them know above. Plan: d/c back to [facility]. Family will transport via private vehicle. Marisel ZHAO
--- NOTE | 2018-03-03 10:50 | NURSING ---
Called report to Michelle GRIDER at [facility]
--- NOTE | 2018-03-03 11:13 | PCM.PN.CARD ---
Subjectve: The patient is awake and alert. She states she is feeling better overall. She denies any ongoing palpitations, chest discomfort, or worsening shortness of breath. She believes overall her breathing is better. Objective: Vital Signs Temp Pulse Resp BP Pulse Ox 98.0 F 65 16 149/69 H 94 03/03/18 08:40 03/03/18 11:05 03/03/18 08:40 03/03/18 08:40 03/03/18 08:40 Oxygen Delivery Method Room Air Weight: 163 lb 2.273 oz Body Mass Index (BMI) 29.8 Intake and Output for Last 24 Hours 03/01/18 03/02/18 03/03/18 23:59 23:59 23:59 Intake Total 749 / 749 2616 / 2616 445 / 445 Output Total 250 / 250 Balance 749 / 749 2366 / 2366 445 / 445 General: Awake, Alert, Oriented x 3, Cooperative, No Acute Distress Neck: No JVD Lungs: Inspiratory Wheezes - Jose Carlos - Faint bilateral inspiratory wheezing Cardiovascular: Regular Rhythm, Normal S1, Normal S2 Abdomen: Bowel Sounds Present, Soft, Non Tender 03/02/18 04:45: Magnesium 1.5 L 03/03/18 05:40: WBC 12.1 H, RBC 2.87 L, Hgb 9.6 L, Hct 28.7 L, MCV 100.0 H, MCH 33.4 H, MCHC 33.4, RDW 13.2, RDW Differential 48.2 H, Plt Count 278, MPV 8.8 03/03/18 05:40: Sodium 142, Potassium 4.0, Chloride 112 H, Carbon Dioxide 19.0 L, Anion Gap 11, BUN 14, Creatinine 0.99, Est GFR (MDRD) Af Amer 69, Est GFR (MDRD) Non-Af 57 L, BUN/Creatinine Ratio 14.1, Glucose 80, Calcium 7.7 L Rhythm: Sinus rhythm ECHO: Preliminary: Overall preserved LV systolic function with an estimated LVEF of 65%: Please see official report Medical Necessity - Tobacco Use Smoking Status: Never smoker Assessment/Plan 1. Supraventricular tachycardia The patient had an episode of supraventricular tachycardia. This resolved with IV adenosine thus giving a diagnosis of a reentry mechanism tachycardia. It is unclear whether this is a primary event versus being secondary to the patient's underlying metabolic and infectious disease related issues. At the present time she has remained on her low-dose beta-katty. Her rhythm has remained sinus rhythm. 2. Abnormal cardiac enzymes The patient does have indeterminate troponin I levels. She has been found to have overall preserved left ventricular wall motion and systolic function. This is superimposed upon a history of a non-CAD related cardiomyopathy compatible with a Takotsubu syndrome syndrome. Thus, at the present time, it was felt her abnormal cardiac enzymes are related to a type II event. It was not felt that she required further noninvasive or invasive evaluation of her coronary anatomy at this time. She will continue risk factor modification and medical management as deemed appropriate for her. 3. CAD The patient does have a history of non-angiographically significant CAD. Again her cardiac enzymes may represent a type II event based on her underlying SVT, etc. At the moment she appears to be symptomatically and hemodynamically stable. She will continue risk factor modification and medical management. It was not felt she required further cardiac diagnostic studies or therapeutic intervention. 4. Hyperlipidemia The patient will continue risk factor evaluation care as deemed appropriate. Comment: The above was discussed with the patient and her daughter. They were agreeable to this approach. This note was generated with [employer] dictation software. It may contain incorrect words, spelling, and punctuation that were not noted in checking the note before signing.
--- NOTE | 2018-03-03 11:20 | PN.CARD_ITS ---
Subjectve: The patient is awake and alert. She states she is feeling better overall. She denies any ongoing palpitations, chest discomfort, or worsening shortness of breath. She believes overall her breathing is better. Objective: Vital Signs Temp Pulse Resp BP Pulse Ox 98.0 F 65 16 149/69 H 94 03/03/18 08:40 03/03/18 11:05 03/03/18 08:40 03/03/18 08:40 03/03/18 08:40 Oxygen Delivery Method Room Air Weight: 163 lb 2.273 oz Body Mass Index (BMI) 29.8 Intake and Output for Last 24 Hours 03/01/18 03/02/18 03/03/18 23:59 23:59 23:59 Intake Total 749 / 749 2616 / 2616 445 / 445 Output Total 250 / 250 Balance 749 / 749 2366 / 2366 445 / 445 General: Awake, Alert, Oriented x 3, Cooperative, No Acute Distress Neck: No JVD Lungs: Inspiratory Wheezes - Jose Carlos - Faint bilateral inspiratory wheezing Cardiovascular: Regular Rhythm, Normal S1, Normal S2 Abdomen: Bowel Sounds Present, Soft, Non Tender 03/02/18 04:45: Magnesium 1.5 L 03/03/18 05:40: WBC 12.1 H, RBC 2.87 L, Hgb 9.6 L, Hct 28.7 L, MCV 100.0 H, MCH 33.4 H, MCHC 33.4, RDW 13.2, RDW Differential 48.2 H, Plt Count 278, MPV 8.8 03/03/18 05:40: Sodium 142, Potassium 4.0, Chloride 112 H, Carbon Dioxide 19.0 L , Anion Gap 11, BUN 14, Creatinine 0.99, Est GFR (MDRD) Af Amer 69, Est GFR ( MDRD) Non-Af 57 L, BUN/Creatinine Ratio 14.1, Glucose 80, Calcium 7.7 L Rhythm: Sinus rhythm ECHO: Preliminary: Overall preserved LV systolic function with an estimated LVEF of 65%: Please see official report Medical Necessity - Tobacco Use Smoking Status: Never smoker Assessment/Plan 1. Supraventricular tachycardia The patient had an episode of supraventricular tachycardia. This resolved with IV adenosine thus giving a diagnosis of a reentry mechanism tachycardia. It is unclear whether this is a primary event versus being secondary to the patient's underlying metabolic and infectious disease related issues. At the present time she has remained on her low-dose beta-katty. Her rhythm has remained sinus rhythm. 2. Abnormal cardiac enzymes The patient does have indeterminate troponin I levels. She has been found to have overall preserved left ventricular wall motion and systolic function. This is superimposed upon a history of a non-CAD related cardiomyopathy compatible with a Takotsubu syndrome syndrome. Thus, at the present time, it was felt her abnormal cardiac enzymes are related to a type II event. It was not felt that she required further noninvasive or invasive evaluation of her coronary anatomy at this time. She will continue risk factor modification and medical management as deemed appropriate for her. 3. CAD The patient does have a history of non-angiographically significant CAD. Again her cardiac enzymes may represent a type II event based on her underlying SVT, etc. At the moment she appears to be symptomatically and hemodynamically stable. She will continue risk factor modification and medical management. It was not felt she required further cardiac diagnostic studies or therapeutic intervention. 4. Hyperlipidemia The patient will continue risk factor evaluation care as deemed appropriate. Comment: The above was discussed with the patient and her daughter. They were agreeable to this approach. This note was generated with [employer] dictation software. It may contain incorrect words, spelling, and punctuation that were not noted in checking the note before signing.
[2018-03-03 11:40] LABS: Bedside Glucose 413 mg/dL (70-110)
== END 2018-03-03 14:25 | disposition home or self-care (01) | DRG 308 ==
LOC: PCU 16:49
PROVIDERS: Nurse Practitioner Family; Admitting Provider Hospitalist; Emergency Provider Emergency Medicine; Family Provider Family Medicine; PCP Family Medicine
DX: I47.1 Supraventricular tachycardia (principal); J18.9 Pneumonia, unspecified organism; J44.0 Chronic obstructive pulmonary disease with (acute) lower respiratory infection; N17.9 Acute kidney failure, unspecified; I51.81 Takotsubo syndrome; E87.5 Hyperkalemia; I12.9 Hypertensive chronic kidney disease with stage 1 through stage 4 chronic kidney disease, or unspecified chronic kidney disease; E11.22 Type 2 diabetes mellitus with diabetic chronic kidney disease; N18.3 Chronic kidney disease, stage 3 (moderate); I25.10 Atherosclerotic heart disease of native coronary artery without angina pectoris; E03.9 Hypothyroidism, unspecified; E78.5 Hyperlipidemia, unspecified; F32.9 Major depressive disorder, single episode, unspecified; D53.9 Nutritional anemia, unspecified
CPT/HCPCS: 36415; 71045; 80048; 82962; 83735; 83880; 84132; 84443; 84484; 85025; 85027; 87040; 87149; 87449; 93005; 93306; 94667; 97162; 97166; 97802; 99282; J7030; A4216; J0153

== ENCOUNTER → 2018-04-14 05:00 | Outpatient (REF) | payer MEDICARE, OTHER, SELFPAY ==
[2018-04-14 08:02] LABS: Absolute Neutrophil Count 3.9 X10^3/uL (2.0-7.7); Basophil# 0.05 X10^3/uL; Basophil% 0.6 % (0-1); Eosinophil# 1.54 X10^3/uL; Eosinophils% 19.9 % (0-5); Hematocrit 32.4 % (37-47); Hemoglobin 10.7 g/dl (12.0-15.0); Lymphocyte % 20.6 % (19-41); Monocyte# 0.65 X10^3/uL; Monocyte% 8.4 % (0-10); Neutrophil % 50.4 % (47-70); Platelet Count 238 K/mm3 (150-450); RBC Distribution Width CV 13.4 % (11.6-14.6); RBC Distribution Width SD 49.6 fl (35.1-43.9); Red Blood Count 3.24 M/mm3 (4.2-5.4); White Blood Count 7.8 K/mm3 (4.4-11.0)
[2018-04-14 08:14] LABS: POSITIVE COUNT NO; POSITIVE DIFFERENTIAL NO; POSITIVE MORPHOLOGY NO
[2018-04-14 08:22] LABS: ALB/GLOB Ratio 0.9 RATIO (0.9-2.4); AST(SGOT) 14 U/L (15-37); Alanine Aminotransfer ALT/SGPT 19 U/L (13-56); Albumin, Serum 2.9 g/dL (3.2-5.0); Alkaline Phosphatase 123 U/L (45-117); Anion Gap 9 (5-15); BUN 17 mg/dL (7-18); BUN/Creat Ratio 13.3 RATIO (10-20); Calcium,Total 8.1 mg/dL (8.5-10.1); Chloride 107 mmol/L (98-107); Creatinine, Serum 1.28 mg/dL (0.55-1.02); EST Glomerular Filtration Rate 43 mL/min (>60); Est Glom Filt Rate - Afr Amer 51 mL/min (>60); Globulin 3.2 g/dL (2.2-4.2); Glucose 131 mg/dL (74-106); Hemoglobin A1c 9.1 % (4.2-6.3); Iron 42 ug/dL (50-170); Potassium 4.5 mmol/L (3.5-5.1); Protein, Total 6.1 g/dL (6.4-8.2); Sodium Level 141 mmol/L (136-145)
[2018-04-14 08:39] LABS: Vitamin B12 350 pg/mL (211-911)
== END ==
LOC: OLS.WHLBEN 05:00
PROVIDERS: Visit Provider Family Medicine
DX: E11.9 Type 2 diabetes mellitus without complications (principal); E78.5 Hyperlipidemia, unspecified; Z86.73 Personal history of transient ischemic attack (TIA), and cerebral infarction without residual deficits
CPT/HCPCS: 36415; 80053; 82607; 83036; 83540; 85025

== ENCOUNTER 2018-05-08 18:27 | Inpatient (IN) | payer MEDICARE, OTHER, SELFPAY ==
[2018-05-08] VITALS (7 sets, daily range): BP systolic 115–152; BP diastolic 69–93; PULSE 77–174; RESP 15–24; TEMP 36.5–36.9; O2SAT 97–100; BMI 29.6; BMI 27.2; BMI 27.3
--- NOTE | 2018-05-08 18:32 | EKG12_ITS ---
Test Reason : Blood Pressure : / mmHG Vent. Rate : 174 BPM Atrial Rate : 087 BPM P-R Int : 000 ms QRS Dur : 086 ms QT Int : 270 ms P-R-T Axes : 000 -32 132 degrees QTc Int : 459 ms Supraventricular tachycardia Left axis deviation ST & T wave abnormality, consider lateral ischemia Abnormal ECG Confirmed by TRICIA MERCER, PREET ([id number]), health editor SADIQ BUENO ([id number]) on 05/10/2018 3:11:47 PM Referred By: MIGUEL Confirmed By:PREET CLARKE MD
[2018-05-08] MEDS: Aspirin 81 MG TAB.CHEW 324 MG PO (18:36)
[2018-05-08] MEDS: 0.9% Normal Saline 1,000 ML 150 ML IV (18:36)
[2018-05-08] MEDS: Adenosine 6 MG/2 ML Syringe IV (18:37)
--- NOTE | 2018-05-08 18:37 | RAD_ITS ---
STUDY: X-RAY CHEST REASON FOR EXAM: Female, 82 years old. Chest pain and palpitations. TECHNIQUE: Single AP portable view of the chest. COMPARISON: 03/01/2018. FINDINGS: Normal lung volumes. Irregular density in the right lung base, less prominent than on the previous exam. Probable scarring but recommend CT scan for further evaluation. No effusions. Normal size heart. Normal mediastinum and aruna. Normal visualized pulmonary arteries. There is atherosclerotic tortuosity of the aortic arch and descending thoracic aorta. The visualized bones and joints show degenerative changes. There is no demonstrated abnormality of the visualized soft tissue structures of the upper abdomen. RAD/Chest 1 View (Portable) IMPRESSION: Improved but persistent irregular density in the right lung base. Recommend further evaluation with CT scan. Otherwise negative. Electronically Signed: Jose G Vo MD at 18:54 EDT , Service support ,
[2018-05-08 18:48] LABS: Absolute Lymphocyte Count 1.42 X10^3/ul (0.83-4.51); Basophil# 0.03 X10^3/uL; Basophil% 0.3 % (0-1); Eosinophil# 0.39 X10^3/uL; Hematocrit 37.3 % (37-47); Hemoglobin 12.1 g/dl (12.0-15.0); Lymphocyte # 1.42 X10^3/ul (4.0); Lymphocyte % 14.7 % (19-41); Mean Corp Hgb Conc 32.4 g/gl (32-36); Mean Corpuscular Hgb 32.2 pg (27.0-32.0); Mean Corpuscular Volume 99.2 fL (81-99); Mean Platelet Vol. 9.2 fl (6.2-12.0); Monocyte# 0.85 X10^3/uL; Monocyte% 8.8 % (0-10); Neutrophil # 6.95 X10^3/uL (2.7-7.7); Platelet Count 306 K/mm3 (150-450); RBC Distribution Width CV 13.4 % (11.6-14.6); RBC Distribution Width SD 48.6 fl (35.1-43.9); Red Blood Count 3.76 M/mm3 (4.2-5.4); White Blood Count 9.7 K/mm3 (4.4-11.0)
[2018-05-08 18:49] LABS: POSITIVE COUNT NO; POSITIVE DIFFERENTIAL NO; POSITIVE MORPHOLOGY NO
[2018-05-08 19:25] LABS: Anion Gap 14 (5-15); BUN 25 mg/dL (7-18); BUN/Creat Ratio 12.9 RATIO (10-20); Calcium,Total 9.1 mg/dL (8.5-10.1); Chloride 101 mmol/L (98-107); Creatinine, Serum 1.94 mg/dL (0.55-1.02); EST Glomerular Filtration Rate 26 mL/min (>60); Est Glom Filt Rate - Afr Amer 32 mL/min (>60); Estimated Creatinine Clearance 19.64 ml/min; Glucose 339 mg/dL (74-106); Potassium 5.2 mmol/L (3.5-5.1); Sodium Level 135 mmol/L (136-145); Thyroid Stim Hormone (TSH) 2.96 uIU/mL (0.358-3.74)
--- NOTE | 2018-05-08 20:25 | ED.DCSUM_ITS ---
- ER Visit Summary Date of Service: 05/08/18 Chief Complaint: Palpitations History of Present Illness: The patient is a [address] Yousif and Dr. Ross. She reports she has palpitations began at 7:00 this morning. She denies any chest pain with it. She has felt that it makes her short of breath. Review of systems: General: No fever, chills, cold sweats. Cardiovascular: No chest pain. Respiratory: No cough. Gastrointestinal: No abdominal pain, nausea, vomiting, diarrhea, melena, or hematochezia. Genitourinary: No dysuria, frequency, hematuria. Skin: No rash. Neuro: No headache, numbness, weakness. Physical Examination: Vitals: 97.7, 115/93, 174, 24, 97% room air which is not hypoxic. General: Well-nourished and well-developed. Head: Normocephalic atraumatic. Neck: Supple, no lymphadenopathy. No JVD. Nontender. Cardiovascular: Tachycardic regular rhythm. No murmurs. Respiratory: No respiratory distress. Clear to auscultation bilaterally. Abdominal: Soft, nontender, nondistended, normal bowel sounds. No guarding, rebound, or peritoneal signs. Back: Nontender. Extremities: Nontender, no edema. Skin: Normal color, no rash. Neurologic: Alert and oriented ?3. Cranial nerves II through XII are intact. Normal strength and sensation. Psych: Normal affect. Test Results: EKG is SVT at 174. CBC is more for segment neutrophils 7106 15. Chem-7 is more for sodium 135, potassium 5.2 (moderate hemolysis), CO2 of 20, BUN 25, creatinine 1.94, glucose of 339. Creatinine has ranged between 0.99- 2.48 in 2018. Troponin 0 0.082. Clinical Impression(s) from Imaging Studies Chest X-Ray 05/08/18 18:37 IMPRESSION: Improved but persistent irregular density in the right lung base. Recommend further evaluation with CT scan. Otherwise negative. Electronically Signed: Jose G Vo MD at 18:54 EDT , Service support , Emergency Department Course and Treatment: Patient had an IV placed. She was given 6 mg of adenosine IV and converted into sinus rhythm. Treatment Plan: Patient will be discussed with Dr. Olivares. Given her acute renal insufficiency and hyperglycemia feel she warrants observation and further treatment/evaluation. Disposition: Admitted in improved condition. Impression: 1. SVT. 2. Conversion with adenosine. 3. Hyperglycemia with [id number] diabetes mellitus. 4. Acute renal insufficiency. 5. Critical care time 30 minutes. This note was generated with [employer] dictation software. It may contain incorrect words, spelling, and punctuation that were not noted in review of the chart prior to signing ED Disposition - Plan for ED Patient: Chief Complaint: Palpitations Referrals: Yao Yousif DO [Primary Care Provider] -
--- NOTE | 2018-05-08 21:50 | HP.PCM_ITS ---
Problem List (1) DEMETRA (acute kidney injury) Status: Acute (2) SVT (supraventricular tachycardia) Status: Acute (3) Nonrheumatic tricuspid (valve) insufficiency Status: Chronic (4) Atherosclerotic heart disease of [place] coronary artery without angina pectoris Status: Chronic Qualifiers: Comment: Mild (5) Hypothyroidism Status: Chronic Qualifiers: (6) COPD (chronic obstructive pulmonary disease) Status: Chronic Qualifiers: History of Present Illness Date of Admission: 05/08/18 Chief Complaint: SOB The patient is a 82 year old female w/ h/o SVT, DMII, CAD, and HTN admitted for SOB. She is unable to provide any history. History is taken from family. Family said that she has been SOB for at least a day. Family member also noted that her heart rate was in the 170s and that was why she was sent to the ED. No cough. No fever. Past Medical History Past Medical History (Chronic Problems): Chronic Problems (Last Reviewed 03/01/18 @ 13:10 by Victoria uF) Takotsubo cardiomyopathy (Chronic) Nonrheumatic tricuspid (valve) insufficiency (Chronic) Atherosclerotic heart disease of [place] coronary artery without angina pectoris (Chronic) Mild Hypothyroidism (Chronic) COPD (chronic obstructive pulmonary disease) (Chronic) Hyperlipidemia (Chronic) Type 2 diabetes mellitus (Chronic) Medical History: Medical History (Last Reviewed 03/01/18 @ 13:10 by Victoria Fu) Takotsubo cardiomyopathy (Chronic) I51.81 Nonrheumatic tricuspid (valve) insufficiency (Chronic) I36.1 Atherosclerotic heart disease of [place] coronary artery without angina pectoris (Chronic) I25.10 Mild Hypothyroidism (Chronic) E03.9 COPD (chronic obstructive pulmonary disease) (Chronic) J44.9 Hyperlipidemia (Chronic) E78.5 Type 2 diabetes mellitus (Chronic) E11.9 Anemia D64.9 CVA (cerebral vascular accident) I63.9 Depression F32.9 Osteoarthritis M19.90 Allergies Sulfa (Sulfonamide Antibiotics) Allergy (Unknown, Verified 05/08/18 18:32) Unknown adhesive tape Allergy (Verified 05/08/18 18:32) Other codeine Allergy (Verified 05/08/18 18:32) HEART ATTACK Latex, Natural Rubber Allergy (Verified 05/08/18 18:32) Rash levofloxacin [From Levaquin] Allergy (Verified 05/08/18 18:32) Anaphylaxis Penicillins Allergy (Verified 05/08/18 18:32) Rash acetaminophen [From Vicodin] Adverse Reaction (Verified 05/08/18 18:32) Chest tightness hydrocodone bitartrate [From Vicodin] Adverse Reaction (Verified 05/08/18 18:32) Chest tightness Home Medications: Ambulatory Orders Medication Instructions Recorded Levothyroxine [Synthroid] 25 mcg PO DAILY@0600 05/23/16 Meloxicam [Mobic] 15 mg PO QODAY 05/23/16 Multivit with Calcium,Iron,Min 1 tab PO DAILY 05/23/16 [Multiple Vitamins For Women] Trazodone HCl 50 mg PO QHS 05/23/16 Insulin Detemir [Levemir FlexPen] 32 units SC QHS 03/26/17 Ubidecarenone [Coenzyme Q-10] 200 mg PO DAILY 03/26/17 Vitamin E 400 unit PO DAILY 03/26/17 ergocalciferol (vitamin D2) 50,000 50,000 unit PO QMONTH 01/15/18 unit capsule Atorvastatin Calcium [Lipitor] 20 mg PO QHS 03/01/18 Fluticasone/Salmeterol [Advair 1 each IH BID 03/01/18 500-50 Diskus] Metformin HCl [Glucophage] 1,000 mg PO BIDCM 03/01/18 megestrol 20 mg tablet 10 mg PO TID tab 03/01/18 ondansetron HCl 4 mg tablet 4 mg PO Q8H PRN tab 03/01/18 oxybutynin chloride ER 10 mg 10 mg PO QHS 03/01/18 tablet,extended release 24 hr Aspirin [Aspirin, Baby] 81 mg PO DAILY@0800 #30 tab.chew 03/03/18 Hydroxyzine HCl 25 mg PO DAILY 03/03/18 Metoprolol Tartrate [Lopressor 12.5 mg PO BID #60 tab 03/03/18 (beta katty)] Surgical History: Surgical History (Last Reviewed 05/09/18 @ 05:43 by Jone Olivares MD) History of arthroplasty of right hip Z96.641 History of back surgery Z98.890 Lumbar Disc History of left hip replacement Z96.642 History of total bilateral knee replacement Z96.653 Surgical History: hysterectomy, total hip arthroplasty, - - Fractured femur Lives: Intermediate Smoking Status: Never smoker Alcohol: None Drugs: None - *Family History Maternal History Items: No pertinent history Paternal History Items: No pertinent history Review of Systems Unable to obtain accurate/complete ROS d/t: Unable to obtain secondary to dementia. VTE Information - Inpt Only VTE Present on Admission: No VTE Mechan Device Prophylaxis: SCD's VTE Pharm Prophylaxis ordered?: Yes Patient Problems: Active and Suspected Problems (Last Reviewed 03/01/18 @ 13:10 by Victoria Fu) DEMETRA (acute kidney injury) (Acute) - Physical Exam General: Confused, Disoriented HEENT: Atraumatic, PERRLA, EOMI, Normocephalic Neck: Supple, No JVD, Negative Carotid Bruits Lungs: Diminished, Short of Breath Cardiovascular: Irregular Rate, Murmur Abdomen: Bowel Sounds Present, Soft, Non Tender Extremities: No edema, Capillary Refill Less than 3 Seconds Skin: No rashes, No breakdown Musculoskeletal: No Tenderness to Palpation of Joints or Extremities Neurological: Cranial nerves II-XII grossly intact Psych/Mental Status: Normal Affect, Appropriate Vital Signs Temp Pulse Resp BP Pulse Ox 97.7 F L 80 15 123/69 H 97 05/08/18 18:28 05/08/18 19:41 05/08/18 19:41 05/08/18 19:41 05/08/18 19:41 Oxygen Flow Rate (L/min) 2 Oxygen Delivery Method Room Air Weight: 78.3 kg Body Mass Index (BMI) 29.6 Laboratory Tests Past 24 Hrs 05/08/18 05/08/18 18:35 18:35 WBC 9.7 RBC 3.76 L Hgb 12.1 Hct 37.3 MCV 99.2 H MCH 32.2 H MCHC 32.4 RDW 13.4 RDW Differential 48.6 H Plt Count 306 MPV 9.2 Immature Gran % (Auto) 0.200 Neut % (Auto) 72.0 H Lymph % (Auto) 14.7 L [place] % (Auto) 8.8 Eos % (Auto) 4.0 Baso % (Auto) 0.3 Absolute Neuts (auto) 7.0 Absolute Lymphs (auto) 1.42 Total Counted Not Reportable Sodium 135 L Potassium 5.2 H Chloride 101 Carbon Dioxide 20.0 L Anion Gap 14 BUN 25 H Creatinine 1.94 H Estim Creat Clear Calc 19.64 Est GFR (MDRD) Af Amer 32 L Est GFR (MDRD) Non-Af 26 L BUN/Creatinine Ratio 12.9 Glucose 339 H Calcium 9.1 Troponin I 0.082 H TSH 2.96 Assessment/Plan All Active Problems (Last Reviewed 03/01/18 @ 13:10 by Victoria Fu) DEMETRA (acute kidney injury) (Acute) Pneumococcal pneumonia (Acute) SVT (supraventricular tachycardia) (Acute) 82 year old female w/ h/o SVT, DMII, CAD, and HTN admitted for SOB. 1) SOB: Probably secondary to SVT. Converted with adenosine. Chest xray disclosed improved but persistent irregular density in the right lung base. Recommend further evaluation with CT scan. Otherwise negative. Will get trops. Monitor. 2) Elevated trops: Probably type II SD. Will consult cards. Probably no aggressive care give family deciding on hospice. Resume meds. 3) DEMETRA: Probably azotemia. Resume hydration. Improving w/ hydration. 4) Hyperglycemia: H/o DMII. Resume meds. Added sliding scale and accucheck.
--- NOTE | 2018-05-08 21:50 | NURSING ---
Called ED at this time to confirm Pt is okay to come to PCU. Spoke to MARNI Marshall
[2018-05-08] MEDS: Heparin Injection (Vial) 5,000 UNIT/ML VIAL 5000 UNIT SC (23:24)
[2018-05-08] MEDS: Atorvastatin Calcium 20 MG Tablet PO (23:24)
[2018-05-08] MEDS: traZODone 50 MG Tablet PO (23:24)
[2018-05-08] MEDS: Metoprolol Tartrate 25 MG Tablet 12.5 MG PO (23:24)
[2018-05-08] MEDS: Tolterodine Tartrate 2 MG CAP.SA PO (23:25)
[2018-05-08] MEDS: 0.9% Normal Saline 1,000 ML 100 ML IV (23:36)
[2018-05-08 23:46] LABS: Bedside Glucose 210 mg/dL (70-110)
[2018-05-09] VITALS (14 sets, daily range): BP systolic 114–140; BP diastolic 62–73; PULSE 61–79; RESP 16–24; TEMP 36.4–37.1; O2SAT 95–98
--- NOTE | 2018-05-09 01:05 | NURSING ---
This RN made multiple attempts to reach [facility] to obtain the patient's medication list. RN unable to reach the patient's nurse.
[2018-05-09 04:58] LABS: International Normalized Ratio 1.1
[2018-05-09 05:15] LABS: Anion Gap 10 (5-15); BUN 24 mg/dL (7-18); BUN/Creat Ratio 17.1 RATIO (10-20); Calcium,Total 8.3 mg/dL (8.5-10.1); Chloride 108 mmol/L (98-107); EST Glomerular Filtration Rate 38 mL/min (>60); Est Glom Filt Rate - Afr Amer 46 mL/min (>60); Glucose 175 mg/dL (74-106); Potassium 4.8 mmol/L (3.5-5.1); Sodium Level 141 mmol/L (136-145)
[2018-05-09] MEDS: Heparin Injection (Vial) 5,000 UNIT/ML VIAL 5000 UNIT SC ×3 (06:28→21:29)
[2018-05-09] MEDS: Megestrol 40 MG Tablet 10 MG PO ×3 (06:29→21:31)
[2018-05-09] MEDS: Levothyroxine 25 MCG TABLET PO (06:29)
[2018-05-09] MEDS: 0.9% NaCl Peripheral Flush Adult/Peds IV (06:37)
--- NOTE | 2018-05-09 07:07 | EKG12_ITS ---
Test Reason : RYTHM Blood Pressure : / mmHG Vent. Rate : 071 BPM Atrial Rate : 071 BPM P-R Int : 140 ms QRS Dur : 084 ms QT Int : 394 ms P-R-T Axes : 025 -26 -06 degrees QTc Int : 428 ms Poor data quality, interpretation may be adversely affected Normal sinus rhythm Low voltage QRS ( precordial leads) Nonspecific T wave abnormality Abnormal ECG Confirmed by SONIA MERCER, MARGARITO ([id number]), medical transcription editor SADIQ BUENO ([id number]) on 05/13/2018 2:07:12 PM Referred By: LIZABETH Confirmed By:MARGARITO SCOTT MD
[2018-05-09] MEDS: Insulin Lispro 100 UNIT/ML INSULN.PEN SC ×3 (09:09→17:18)
[2018-05-09] MEDS: Glucerna Shake 120 ML LIQUID PO ×4 (09:11→21:28)
[2018-05-09] MEDS: Metoprolol Tartrate 25 MG Tablet 12.5 MG PO (09:11)
[2018-05-09] MEDS: Multivitamins,Ther W-Minerals Tablet 1 TABLET PO (09:11)
[2018-05-09] MEDS: Aspirin 81 MG TAB.CHEW PO (09:11)
[2018-05-09] MEDS: hydrOXYzine PAM 25 MG Capsule PO (09:12)
[2018-05-09] MEDS: Vitamin E 400 UNITS Capsule PO (09:12)
[2018-05-09] MEDS: 0.9% Normal Saline 1,000 ML 100 ML IV (10:25)
[2018-05-09 11:15] LABS: Bedside Glucose 165 mg/dL (70-110)
--- NOTE | 2018-05-09 11:29 | PCM.CONS.C ---
Problem List (1) SVT (supraventricular tachycardia) Status: Acute Reason for Consult Date of Consultation: 05/09/18 History of Present Illness: The patient is a 82 year old F with past medical history significant for Takotsubo's cardiomyopathy with ejection fraction normalized on last echocardiogram, COPD and supraventricular tachycardia. She presented to the emergency room with complaints of acute onset shortness of breath. According to the daughter of the patient, the patient's pulse was checked and it was noted to be rapid. In the emergency room, the patient was noted to be in supraventricular tachycardia at 1 70 bpm. Successful conversion was done with administration of IV adenosine. Patient has since been asymptomatic. Denies any chest pain. Denies any shortness of breath. Denies any further palpitations. [] Past Medical History Allergies/Adverse Reactions: Allergies Sulfa (Sulfonamide Antibiotics) Allergy (Unknown, Verified 05/08/18 18:32) Unknown adhesive tape Allergy (Verified 05/08/18 18:32) Other codeine Allergy (Verified 05/08/18 18:32) HEART ATTACK Latex, Natural Rubber Allergy (Verified 05/08/18 18:32) Rash levofloxacin [From Levaquin] Allergy (Verified 05/08/18 18:32) Anaphylaxis Penicillins Allergy (Verified 05/08/18 18:32) Rash acetaminophen [From Vicodin] Adverse Reaction (Verified 05/08/18 18:32) Chest tightness hydrocodone bitartrate [From Vicodin] Adverse Reaction (Verified 05/08/18 18:32) Chest tightness Home Medications: Ambulatory Orders Medication Instructions Recorded Levothyroxine [Synthroid] 25 mcg PO DAILY@0600 05/23/16 Meloxicam [Mobic] 15 mg PO QODAY 05/23/16 Multivit with Calcium,Iron,Min 1 tab PO DAILY 05/23/16 [Multiple Vitamins For Women] Trazodone HCl 50 mg PO QHS 05/23/16 Insulin Detemir [Levemir FlexPen] 32 units SC QHS 03/26/17 Ubidecarenone [Coenzyme Q-10] 200 mg PO DAILY 03/26/17 Vitamin E 400 unit PO DAILY 03/26/17 ergocalciferol (vitamin D2) 50,000 50,000 unit PO QMONTH 01/15/18 unit capsule Atorvastatin Calcium [Lipitor] 20 mg PO QHS 03/01/18 Fluticasone/Salmeterol [Advair 1 each IH BID 03/01/18 500-50 Diskus] Metformin HCl [Glucophage] 1,000 mg PO BIDCM 03/01/18 megestrol 20 mg tablet 10 mg PO TID tab 03/01/18 ondansetron HCl 4 mg tablet 4 mg PO Q8H PRN tab 03/01/18 oxybutynin chloride ER 10 mg 10 mg PO QHS 03/01/18 tablet,extended release 24 hr Aspirin [Aspirin, Baby] 81 mg PO DAILY@0800 #30 tab.chew 03/03/18 Hydroxyzine HCl 25 mg PO DAILY 03/03/18 Metoprolol Tartrate [Lopressor 12.5 mg PO BID #60 tab 03/03/18 (beta katty)] Past Medical History (Chronic Problems): Chronic Problems (Last Reviewed 03/01/18 @ 13:10 by Victoria Fu) Takotsubo cardiomyopathy (Chronic) Nonrheumatic tricuspid (valve) insufficiency (Chronic) Atherosclerotic heart disease of [place] coronary artery without angina pectoris (Chronic) Mild Hypothyroidism (Chronic) COPD (chronic obstructive pulmonary disease) (Chronic) Hyperlipidemia (Chronic) Type 2 diabetes mellitus (Chronic) Surgical History: hysterectomy, total hip arthroplasty, - - Fractured femur - *Family History Maternal History Items: No pertinent history Paternal History Items: No pertinent history Lives: [facility] Smoking Status: Never smoker Alcohol: None Drugs: None Review of Systems - Review of Systems General: Denies: Fever, Chills HEENT: Denies: Head Aches Cardiovascular: Reports: Shortness of Breath at Rest, Palpitations. Denies: Chest Discomfort at Rest, Chest Discomfort with Exertion, Orthopnea, PND, Peripheral Edema Respiratory: Denies: Cough Gastrointestinal: Denies: Abdominal Discomfort, Jaundice, Nausea Neurological: Reports: History of CVA Hematologic/ Lymphatic: Denies: Easy Brusing, Easy Bleeding Subjectve: Comfortable. No apparent distress Objective: Vital Signs Temp Pulse Resp BP Pulse Ox 97.6 F L 79 16 131/73 H 95 05/09/18 08:40 05/09/18 09:11 05/09/18 08:40 05/09/18 09:11 05/09/18 08:40 Oxygen Flow Rate (L/min) 2 Oxygen Delivery Method Room Air Weight: 76.6 kg Body Mass Index (BMI) 27.2 Intake and Output for Last 24 Hours 05/07/18 05/08/18 05/09/18 23:59 23:59 23:59 Intake Total 50 / 50 653 / 653 Balance 50 50 653 / 653 General: Healthy Appearing, Awake, Alert, Oriented x 3 HEENT: Atraumatic, Normocephalic Oral: Moist Mucosa Neck: - - Minimally elevated JVP Lungs: Clear to auscultation Cardiovascular: Regular Rhythm, Normal S1, Normal S2, No Murmurs Vascular: No Carotid Bruits Abdomen: Bowel Sounds Present, Soft Extremities: - - Trace bilateral edema Neurological: CN II-XII Intact Psych/Mental Status: Appropriate 05/09/18 01:58: Troponin I 0.372 H 05/09/18 04:33: PT 14.0, INR 1.1 05/09/18 04:33: Sodium 141, Potassium 4.8, Chloride 108 H, Carbon Dioxide 23.0, Anion Gap 10, BUN 24 H, Creatinine 1.40 H, Est GFR (MDRD) Af Amer 46 L, Est GFR (MDRD) Non-Af 38 L, BUN/Creatinine Ratio 17.1, Glucose 175 H, Calcium 8.3 L 05/09/18 04:33: Troponin I 0.383 H 05/09/18 07:50: Troponin I 0.387 H Rhythm: Normal sinus rhythm. Rhythm on first EKG done in the emergency room was SVT EKG: Normal sinus rhythm. First EKG showed supraventricular tachycardia ECHO: Last echocardiogram done in January of this year showed intact LV systolic function Assessment/Plan 1. Supraventricular tachycardia. Successfully converted with administration of IV adenosine. Continue beta katty. Increase dose 2. Minimally elevated troponin. Likely secondary to demand phenomenon with #1 above. Patient had cardiac catheterization done in 2011 which showed minimal atherosclerotic disease. Will check a Lexiscan stress Cardiolite to evaluate for progression of disease 3. History of Takotsubo's cardiomyopathy. Ejection fraction normalized as per last echocardiogram done in January of this year 4. History of CVA 5. Dyspnea. Resolved. Likely secondary to #1 above. Will check a d-dimer however 6. Acute on chronic kidney insufficiency
[2018-05-09 12:11] LABS: Bedside Glucose 308 mg/dL (70-110)
--- NOTE | 2018-05-09 12:44 | PCM.PN.HOSP ---
Patient Problems: Active and Suspected Problems (Last Reviewed 03/01/18 @ 13:10 by Victoria Fu) DEMETRA (acute kidney injury) (Acute) Subjective: Patient is a 82-year-old female with a history of SVT, CAD, hypertension and type 2 diabetes. She was admitted from the residential with a complaint of shortness of breath on 05/08/2018 and was unable to provide much history. According to her family than they said she had been short of breath for at least a day and a heart rate was noted to be in the 170s. Patient was noted to be in SVT on admission to ED and converted with administration of IV adenosine. Cardiology has been consulted and she has remained stable. Patient seen and examined this morning. She has no complaints and felt very well. Shortness of breath had resolved and she did not feel heart racing. She denied any fever or chills, any shortness of breath, any chest pain, any abdominal pain, any diarrhea vomiting. Review is otherwise negative. Vitals/I&O's: Vital Signs Temp Pulse Resp BP Pulse Ox 97.6 F L 71 16 131/73 H 95 05/09/18 08:40 05/09/18 11:13 05/09/18 08:40 05/09/18 09:11 05/09/18 08:40 Oxygen Flow Rate (L/min) 2 Oxygen Delivery Method Room Air Weight: 168 lb 13.985 oz Body Mass Index (BMI) 27.2 Intake and Output for Last 24 Hours 05/07/18 05/08/18 05/09/18 23:59 23:59 23:59 Intake Total 50 / 50 1399 / 1399 Balance 50 / 50 1399 / 1399 General: Alert, Oriented x3, Cooperative, No apparent distress HEENT: Atraumatic, PERRLA, EOMI, Normocephalic Oral: Moist Mucosa Neck: Supple, No JVD, Negative Carotid Bruits Lungs: Clear to auscultation, Normal air movement, No rhonchi, No wheeze, No rales Cardiovascular: Regular rate, Regular Rhythm, Normal S1, Normal S2, No murmurs Abdomen: Bowel Sounds Present, Soft, Non Tender, Non-Distended, No Hepato-splenomegaly Extremities: No clubbing, No cyanosis, No edema, Capillary Refill Less than 3 Seconds Skin: No rashes, No breakdown Musculoskeletal: No Tenderness to Palpation of Joints or Extremities Lymphatic: No Cervical, Supraclavicular, or Inguinal Adenopathy Neurological: Cranial nerves II-XII grossly intact, Neuro grossly intact, Motor Exam 5/5 strength throughout Psych/Mental Status: Normal Affect, Appropriate, Alert and oriented to time, place, person, mood and affect Laboratory Results 05/08/18 23:31: POC Glucose 210 H 05/09/18 01:58: Troponin I 0.372 H 05/09/18 04:33: PT 14.0, INR 1.1 05/09/18 04:33: Sodium 141, Potassium 4.8, Chloride 108 H, Carbon Dioxide 23.0, Anion Gap 10, BUN 24 H, Creatinine 1.40 H, Estim Creat Clear Calc 29.50, Est GFR (MDRD) Af Amer 46 L, Est GFR (MDRD) Non-Af 38 L, BUN/Creatinine Ratio 17.1, Glucose 175 H, Calcium 8.3 L 05/09/18 04:33: Troponin I 0.383 H 05/09/18 06:45: POC Glucose 165 H 05/09/18 07:50: Troponin I 0.387 H 05/09/18 11:35: POC Glucose 308 H Current Medications Albuterol Sulfate (Ventolin Aerosols) 2.5 mg INHALATION Q6HWA.RT [facility] Last Admin: 05/09/18 08:32 Dose: Not Given Aspirin (Aspirin, Baby) 81 mg PO DAILY@0800 [facility] Last Admin: 05/09/18 09:11 Dose: 81 mg Atorvastatin Calcium (Lipitor) 20 mg PO QHS [facility] Last Admin: 05/08/18 23:24 Dose: 20 mg Budesonide (Pulmicort Aerosol) 0.5 mg INHALATION Q12H.RT [facility] Last Admin: 05/09/18 08:32 Dose: Not Given Ergocalciferol (Vitamin D) 50,000 unit PO QMONTH [facility] Heparin Sodium (Porcine) (Heparin Na) 5,000 unit SC Q8 [facility] Last Admin: 05/09/18 06:28 Dose: 5,000 u Hydroxyzine Pamoate (Vistaril Pamoate Capsule) 25 mg PO DAILY [facility] Last Admin: 05/09/18 09:12 Dose: 25 mg Sodium Chloride () 1,000 mls @ 100 mls/hr IV .Q10H [facility] Last Admin: 05/09/18 10:25 Dose: 100 mls/hr Insulin Glargine (Lantus (Bkc)) 32 units SC QHS [facility] Last Admin: 05/08/18 23:32 Dose: 32 u Insulin Human Lispro (Humalog Kwikpen (Bkc)) 0 unit SC TIDAC [facility] PRN Reason: Protocol Last Admin: 05/09/18 11:44 Dose: 3 units Levothyroxine Sodium (Synthroid) 25 mcg PO DAILY@0600 [facility] Last Admin: 05/09/18 06:29 Dose: 25 mcg Magnesium Hydroxide (Milk Of Magnesia) 30 ml PO DAILY PRN PRN Reason: Constipation Megestrol Acetate (Megace) 10 mg PO TID [facility] Last Admin: 05/09/18 06:29 Dose: 10 mg Metoprolol Tartrate (Lopressor (Beta Katty)) 25 mg PO BID [facility] Multivitamins/Minerals (Multivitamin With Minerals) 1 tablet PO DAILY@0800 [facility] Last Admin: 05/09/18 09:11 Dose: 1 tablet Nutritional Formula (Lactose Free) (Glucerna Shake) 120 ml PO 4X/DAY [facility] Last Admin: 05/09/18 09:11 Dose: 120 ml Ondansetron HCl (Zofran Odt) 4 mg PO Q8H PRN PRN PRN Reason: NAUSEA/VOMITING Sodium Chloride () 5 - 30 ml IV UD PRN PRN Reason: SALINE FLUSH Last Admin: 05/09/18 06:37 Dose: 10 ml Tolterodine Tartrate (Detrol La) 2 mg PO QHS [facility] Last Admin: 05/08/18 23:25 Dose: 2 mg Trazodone HCl (Desyrel) 50 mg PO QHS [facility] Last Admin: 05/08/18 23:24 Dose: 50 mg Vitamin E (Vitamin E) 400 units PO DAILY [facility] Last Admin: 05/09/18 09:12 Dose: 400 units Medical Necessity - Tobacco Use Smoking Status: Never smoker Assessment/Plan All Active Problems (Last Reviewed 03/01/18 @ 13:10 by Victoria Fu) DEMETRA (acute kidney injury) (Acute) Pneumococcal pneumonia (Acute) SVT (supraventricular tachycardia) (Acute) 82 y/o female with a history of SVT admitted with shortness of breath. 1. Supraventricular tachycardia has a history of SVT. Converted to NSR with administration of adenosine currenlty stable CXR showed improved persistent irregular density in right lung base. Recommend further evaluation with CT scan troponins initially 0.0821 trended gradually to 0.387 Neurology on board. Recommend stress test on account of elevated troponins. 2. NSTEMI: troponins trended up to 0.387; patient currently asymptomatic. Cardiology on board. For stress test tommorrow. On aspirin, statin and beta katty. 3. HTN: controlled. On metoprolol 4. DEMETRA: cr was 1.94 on admissoin; trended down to 1.4. Will continue IVF and monitor 5. DM2:on lantus 32IU qhs and ISS. Accuchecks ACHS. Will monitor DVT prophylaxis: Heparin This note was generated with [employer] software. It may contain incorrect words, spelling, and punctuation that were not noted in checking the note before signing. Code Visit OBSV E&M: 50877 Subsequent observation care L2
--- NOTE | 2018-05-09 12:53 | PN_ITS ---
Patient Problems: Active and Suspected Problems (Last Reviewed 03/01/18 @ 13:10 by Victoria Fu) DEMETRA (acute kidney injury) (Acute) Subjective: Patient is a 82-year-old female with a history of SVT, CAD, hypertension and type 2 diabetes. She was admitted from the senior care with a complaint of shortness of breath on 05/08/2018 and was unable to provide much history. According to her family than they said she had been short of breath for at least a day and a heart rate was noted to be in the 170s. Patient was noted to be in SVT on admission to ED and converted with administration of IV adenosine. Cardiology has been consulted and she has remained stable. Patient seen and examined this morning. She has no complaints and felt very well. Shortness of breath had resolved and she did not feel heart racing. She denied any fever or chills, any shortness of breath, any chest pain, any abdominal pain, any diarrhea vomiting. Review is otherwise negative. Vitals/I&O's: Vital Signs Temp Pulse Resp BP Pulse Ox 97.6 F L 71 16 131/73 H 95 05/09/18 08:40 05/09/18 11:13 05/09/18 08:40 05/09/18 09:11 05/09/18 08:40 Oxygen Flow Rate (L/min) 2 Oxygen Delivery Method Room Air Weight: 168 lb 13.985 oz Body Mass Index (BMI) 27.2 Intake and Output for Last 24 Hours 05/07/18 05/08/18 05/09/18 23:59 23:59 23:59 Intake Total 50 / 50 1399 / 1399 Balance 50 / 50 1399 / 1399 General: Alert, Oriented x3, Cooperative, No apparent distress HEENT: Atraumatic, PERRLA, EOMI, Normocephalic Oral: Moist Mucosa Neck: Supple, No JVD, Negative Carotid Bruits Lungs: Clear to auscultation, Normal air movement, No rhonchi, No wheeze, No rales Cardiovascular: Regular rate, Regular Rhythm, Normal S1, Normal S2, No murmurs Abdomen: Bowel Sounds Present, Soft, Non Tender, Non-Distended, No Hepato- splenomegaly Extremities: No clubbing, No cyanosis, No edema, Capillary Refill Less than 3 Seconds Skin: No rashes, No breakdown Musculoskeletal: No Tenderness to Palpation of Joints or Extremities Lymphatic: No Cervical, Supraclavicular, or Inguinal Adenopathy Neurological: Cranial nerves II-XII grossly intact, Neuro grossly intact, Motor Exam 5/5 strength throughout Psych/Mental Status: Normal Affect, Appropriate, Alert and oriented to time, place, person, mood and affect Laboratory Results 05/08/18 23:31: POC Glucose 210 H 05/09/18 01:58: Troponin I 0.372 H 05/09/18 04:33: PT 14.0, INR 1.1 05/09/18 04:33: Sodium 141, Potassium 4.8, Chloride 108 H, Carbon Dioxide 23.0, Anion Gap 10, BUN 24 H, Creatinine 1.40 H, Estim Creat Clear Calc 29.50, Est GFR (MDRD) Af Amer 46 L, Est GFR (MDRD) Non-Af 38 L, BUN/Creatinine Ratio 17.1, Glucose 175 H, Calcium 8.3 L 05/09/18 04:33: Troponin I 0.383 H 05/09/18 06:45: POC Glucose 165 H 05/09/18 07:50: Troponin I 0.387 H 05/09/18 11:35: POC Glucose 308 H Current Medications Albuterol Sulfate (Ventolin Aerosols) 2.5 mg INHALATION Q6HWA.RT [facility] Last Admin: 05/09/18 08:32 Dose: Not Given Aspirin (Aspirin, Baby) 81 mg PO DAILY@0800 [facility] Last Admin: 05/09/18 09:11 Dose: 81 mg Atorvastatin Calcium (Lipitor) 20 mg PO QHS [facility] Last Admin: 05/08/18 23:24 Dose: 20 mg Budesonide (Pulmicort Aerosol) 0.5 mg INHALATION Q12H.RT [facility] Last Admin: 05/09/18 08:32 Dose: Not Given Ergocalciferol (Vitamin D) 50,000 unit PO QMONTH [facility] Heparin Sodium (Porcine) (Heparin Na) 5,000 unit SC Q8 [facility] Last Admin: 05/09/18 06:28 Dose: 5,000 u Hydroxyzine Pamoate (Vistaril Pamoate Capsule) 25 mg PO DAILY [facility] Last Admin: 05/09/18 09:12 Dose: 25 mg Sodium Chloride () 1,000 mls @ 100 mls/hr IV .Q10H [facility] Last Admin: 05/09/18 10:25 Dose: 100 mls/hr Insulin Glargine (Lantus (Bkc)) 32 units SC QHS [facility] Last Admin: 05/08/18 23:32 Dose: 32 u Insulin Human Lispro (Humalog Kwikpen (Bkc)) 0 unit SC TIDAC [facility] PRN Reason: Protocol Last Admin: 05/09/18 11:44 Dose: 3 units Levothyroxine Sodium (Synthroid) 25 mcg PO DAILY@0600 [facility] Last Admin: 05/09/18 06:29 Dose: 25 mcg Magnesium Hydroxide (Milk Of Magnesia) 30 ml PO DAILY PRN PRN Reason: Constipation Megestrol Acetate (Megace) 10 mg PO TID [facility] Last Admin: 05/09/18 06:29 Dose: 10 mg Metoprolol Tartrate (Lopressor (Beta Katty)) 25 mg PO BID [facility] Multivitamins/Minerals (Multivitamin With Minerals) 1 tablet PO DAILY@0800 [facility] Last Admin: 05/09/18 09:11 Dose: 1 tablet Nutritional Formula (Lactose Free) (Glucerna Shake) 120 ml PO 4X/DAY [facility] Last Admin: 05/09/18 09:11 Dose: 120 ml Ondansetron HCl (Zofran Odt) 4 mg PO Q8H PRN PRN PRN Reason: NAUSEA/VOMITING Sodium Chloride () 5 - 30 ml IV UD PRN PRN Reason: SALINE FLUSH Last Admin: 05/09/18 06:37 Dose: 10 ml Tolterodine Tartrate (Detrol La) 2 mg PO QHS [facility] Last Admin: 05/08/18 23:25 Dose: 2 mg Trazodone HCl (Desyrel) 50 mg PO QHS [facility] Last Admin: 05/08/18 23:24 Dose: 50 mg Vitamin E (Vitamin E) 400 units PO DAILY [facility] Last Admin: 05/09/18 09:12 Dose: 400 units Medical Necessity - Tobacco Use Smoking Status: Never smoker Assessment/Plan All Active Problems (Last Reviewed 03/01/18 @ 13:10 by Victoria Fu) DEMETRA (acute kidney injury) (Acute) Pneumococcal pneumonia (Acute) SVT (supraventricular tachycardia) (Acute) 82 y/o female with a history of SVT admitted with shortness of breath. 1. Supraventricular tachycardia * has a history of SVT. Converted to NSR with administration of adenosine * currenlty stable * CXR showed improved persistent irregular density in right lung base. Recommend further evaluation with CT scan * troponins initially 0.0821 trended gradually to 0.387 * Neurology on board. Recommend stress test on account of elevated troponins. * 2. NSTEMI: troponins trended up to 0.387; patient currently asymptomatic. Cardiology on board. For stress test tommorrow. On aspirin, statin and beta katty. 3. HTN: controlled. On metoprolol 4. DEMETRA: cr was 1.94 on admissoin; trended down to 1.4. Will continue IVF and monitor 5. DM2:on lantus 32IU qhs and ISS. Accuchecks ACHS. Will monitor DVT prophylaxis: Heparin This note was generated with [employer] dictation software. It may contain incorrect words, spelling, and punctuation that were not noted in checking the note before signing. Code Visit OBSV E&M: 11667 Subsequent observation care L2
[2018-05-09 14:22] LABS: D-Dimer Quantitative (DVT/PE) 0.87 FEU/ug/m (0.27-0.49)
--- NOTE | 2018-05-09 14:31 | CT_ITS ---
STUDY: CTA CHEST REASON FOR EXAM: Female, 82 years old. Elevated d-dimer. Concern for pulmonary embolus RADIATION DOSAGE (If Supplied By Facility): CTDIvol = ( 12.54 ) mGy, DLP = ( 472.59 ) mGycm TECHNIQUE: The examination was performed with the intravenous administration of 75mL ml of Isovue 370 contrast material. Post-processing of the angiographic images was performed, with multiplanar reformation and 3D reconstruction. Individualized dose optimization techniques were used for this CT. COMPARISON: May 082017 chest radiograph FINDINGS: No axillary or mediastinal adenopathy seen. Scattered mediastinal lymph nodes not enlarged by CT criteria. Pulmonary artery and its branches demonstrate no evidence of filling defects to suggest pulmonary embolus. Cardiac size is enlarged. Mitral annular calcifications. Reflux of contrast into the IVC. Low-attenuation structure in the left kidney possibly renal cyst partially visualized. Adrenal glands appear unremarkable. Coronary vascular calcifications no pericardial effusion. Right lower lobe atelectasis with wedge-shaped pleural-based density may relate with discoid atelectasis. Hazy groundglass opacities bilaterally. Subtle subsegmental atelectasis in the right upper lobe also seen. Degenerative changes in the thoracic spine. Diffuse osteopenia. Mild wedging of the thoracic vertebrae possibly chronic. IMPRESSION: Bilateral hazy groundglass opacities can be seen in the setting of atypical infection or pulmonary edema. Cardiomegaly with coronary vascular calcifications Wedge-shaped pleural based density in the right lower lobe possibly discoid atelectasis however this can be assessed with short-term follow-up imaging in 6 months. No evidence for pulmonary embolus. No definite evidence for aortic dissection Electronically Signed: Cosme Melendez, at 16:08 EDT Tel , Service support , CT/CTA Chest W/WO Contrast
[2018-05-09 16:51] LABS: Bedside Glucose 246 mg/dL (70-110)
[2018-05-09] MEDS: Budesonide Respules 0.5 MG/2 ML AMPUL.NEB. INHALATION (18:41)
[2018-05-09] MEDS: Albuterol 2.5 MG/3 ML VIAL.NEB. INHALATION (18:42)
[2018-05-09] MEDS: 0.9% Normal Saline 1,000 ML 150 ML IV (19:54)
[2018-05-09] MEDS: traZODone 50 MG Tablet PO (21:26)
[2018-05-09] MEDS: Tolterodine Tartrate 2 MG CAP.SA PO (21:27)
[2018-05-09] MEDS: Atorvastatin Calcium 20 MG Tablet PO (21:30)
[2018-05-09] MEDS: Metoprolol Tartrate 25 MG Tablet PO (21:30)
[2018-05-09] MEDS: Cyanocobalamin 500 MCG Tablet 1000 MCG PO (21:31)
[2018-05-09 23:00] LABS: Bedside Glucose 183 mg/dL (70-110)
[2018-05-10] VITALS (11 sets, daily range): BP systolic 135–144; BP diastolic 68–77; PULSE 62–80; RESP 16–18; TEMP 36.6–36.9; O2SAT 96–98
[2018-05-10] MEDS: 0.9% Normal Saline 1,000 ML 150 ML IV ×2 (02:40→12:46)
[2018-05-10 05:16] LABS: Absolute Lymphocyte Count 1.27 X10^3/ul (0.83-4.51); Absolute Neutrophil Count 3.3 X10^3/uL (2.0-7.7); Basophil# 0.02 X10^3/uL; Basophil% 0.3 % (0-1); Eosinophil# 0.72 X10^3/uL; Eosinophils% 12.4 % (0-5); Hematocrit 29.5 % (37-47); Hemoglobin 9.7 g/dl (12.0-15.0); Lymphocyte # 1.27 X10^3/ul (4.0); Lymphocyte % 21.9 % (19-41); Mean Corp Hgb Conc 32.9 g/gl (32-36); Mean Corpuscular Hgb 32.2 pg (27.0-32.0); Mean Platelet Vol. 8.5 fl (6.2-12.0); Monocyte# 0.53 X10^3/uL; Monocyte% 9.1 % (0-10); Neutrophil # 3.27 X10^3/uL (2.7-7.7); Neutrophil % 56.3 % (47-70); Platelet Count 197 K/mm3 (150-450); RBC Distribution Width CV 13.2 % (11.6-14.6); RBC Distribution Width SD 47.2 fl (35.1-43.9); Red Blood Count 3.01 M/mm3 (4.2-5.4); White Blood Count 5.8 K/mm3 (4.4-11.0)
[2018-05-10 05:29] LABS: Anion Gap 7 (5-15); BUN 19 mg/dL (7-18); BUN/Creat Ratio 16.5 RATIO (10-20); Chloride 112 mmol/L (98-107); Creatinine, Serum 1.15 mg/dL (0.55-1.02); EST Glomerular Filtration Rate 48 mL/min (>60); Est Glom Filt Rate - Afr Amer 58 mL/min (>60); Estimated Creatinine Clearance 35.92 ml/min; Glucose 123 mg/dL (74-106); Potassium 4.4 mmol/L (3.5-5.1); Sodium Level 144 mmol/L (136-145)
[2018-05-10 05:32] LABS: International Normalized Ratio 1.1; Prothrombin Time (Protime)PT. 14.2 SECONDS (11.7-14.9)
[2018-05-10 05:33] LABS: Partial Thromboplast Time 34.3 Seconds (24.1-36.2)
--- NOTE | 2018-05-10 05:55 | EKG12_ITS ---
Test Reason : AM EKG Blood Pressure : / mmHG Vent. Rate : 063 BPM Atrial Rate : 063 BPM P-R Int : 142 ms QRS Dur : 090 ms QT Int : 424 ms P-R-T Axes : 021 -25 010 degrees QTc Int : 433 ms Normal sinus rhythm Normal ECG Confirmed by SONIA MERCER, MARGARITO ([id number]), visual effects editor SADIQ BUENO ([id number]) on 05/13/2018 2:05:31 PM Referred By: COURTNEY Confirmed By:MARGARITO SCOTT MD
[2018-05-10] MEDS: Megestrol 40 MG Tablet 10 MG PO ×2 (06:00→14:21)
[2018-05-10] MEDS: Levothyroxine 25 MCG TABLET PO (06:00)
[2018-05-10] MEDS: Aspirin 81 MG TAB.CHEW PO (06:01)
[2018-05-10] MEDS: Cyanocobalamin 500 MCG Tablet 1000 MCG PO ×2 (06:01→14:20)
[2018-05-10 06:33] LABS: POSITIVE COUNT NO; POSITIVE DIFFERENTIAL NO; POSITIVE MORPHOLOGY NO
[2018-05-10 07:06] LABS: Bedside Glucose 99 mg/dL (70-110)
[2018-05-10] MEDS: Albuterol 2.5 MG/3 ML VIAL.NEB. INHALATION ×2 (07:41→13:13)
[2018-05-10] MEDS: Budesonide Respules 0.5 MG/2 ML AMPUL.NEB. INHALATION (07:41)
[2018-05-10] MEDS: 0.9% NaCl Peripheral Flush Adult/Peds IV (12:47)
--- NOTE | 2018-05-10 13:25 | STRESSREP_ITS ---
Stress Test Report Pharmacologic myocardial perfusion stress test. 82-year-old lady with a history of mildly abnormal troponin and a history of supraventricular tachycardia. Stress protocol. Resting EKG demonstrates sinus bradycardia with a rate of 59 beats minute normal intervals are noted. Resting blood pressure is 116/70 mmHg. 0.4 mg regadenoson was infused per usual protocol followed by rapid intravenous saline flush injection continuous EKG monitoring was performed. The patient maintained sinus rhythm throughout the recording. The maximum heart rate attained was 95 beats minute to 60% maximum predicted heart rate the maximum workload attained was 1 metabolic equivalent. The final blood pressure was 112/ 64 mmHg. Myocardial perfusion protocol. 10.9 mCi of technetium 99m sestamibi was injected at rest. 0.4 mg regadenoson was infused per usual protocol peak infusion 32.7 mCi of technetium 99m sestamibi was injected stress images were obtained stress and rest images were reconstructed and compared in the short axis vertical long horizontal long axis. Gated images were also obtained next Perfusion SPECT analysis. Review of the stress images demonstrate normal uptake of tracer noted in all areas of the myocardium. The review of the resting images demonstrate normal uptake of tracer noted in all areas myocardium except for the inferior wall with significant GI and bowel attenuation artifact noted. This does not do note ischemia. Gated SPECT analysis: The gated ejection fraction is 64%. Conclusion: Normal pharmacologic myocardial perfusion stress test. Preserved ejection fraction.
[2018-05-10 13:35] LABS: Bedside Glucose 161 mg/dL (70-110)
--- NOTE | 2018-05-10 13:45 | CASEMGMT ---
Social Work Note Face to face with the pt to confirm discharge plan. Pt's daughter, Arabella, present. Introduced self and role at [facility]. The pt reports to live at [facility]. Uses a walker to ambulate and denies any declines. Reports to have needed DME at facility and denies any anticipated DME needs. Daughter confirms. Pt intends on returning to [facility] at discharge and Arabella states that she will privately transport the pt. No further needs or questions at this time. Made pt aware that SW is available if needs arise. Plan: [facility]. Brandi Leger, GUIDANCE AND CONTROL SYSTEM ENGINEER, [employer]
--- NOTE | 2018-05-10 13:53 | PCM.DC.SUM ---
Discharge Date and Diagnosis - Problem List Patient Problems: Active and Suspected Problems (Last Reviewed 03/01/18 @ 13:10 by Victoria Fu) DEMETRA (acute kidney injury) (Acute) Date of Admission: 05/08/18 Date of Discharge: 05/10/18 - Primary Discharge Diagnosis Active and Suspected Problems (Last Reviewed 03/01/18 @ 13:10 by Victoria Fu) SVT DEMETRA (acute kidney injury) (Acute) - Secondary Discharge Diagnosis Chronic Problems (Last Reviewed 03/01/18 @ 13:10 by Victoria Fu) Takotsubo cardiomyopathy (Chronic) Nonrheumatic tricuspid (valve) insufficiency (Chronic) Atherosclerotic heart disease of [place] coronary artery without angina pectoris (Chronic) Mild Hypothyroidism (Chronic) COPD (chronic obstructive pulmonary disease) (Chronic) Hyperlipidemia (Chronic) Type 2 diabetes mellitus (Chronic) Hospital Course and Treatment Imaging Results: Diagnostic Data Chest X-Ray 05/08/18 18:37 IMPRESSION: Improved but persistent irregular density in the right lung base. Recommend further evaluation with CT scan. Otherwise negative. Electronically Signed: Jose G Vo MD at 18:54 EDT , Service support , Chest CTA 05/09/18 14:31 Laboratory Tests 05/08/18 05/08/18 05/08/18 18:35 18:35 23:31 WBC 9.7 RBC 3.76 L Hgb 12.1 Hct 37.3 MCV 99.2 H MCH 32.2 H MCHC 32.4 RDW 13.4 RDW Differential 48.6 H Plt Count 306 MPV 9.2 Immature Gran % (Auto) 0.200 Neut % (Auto) 72.0 H Lymph % (Auto) 14.7 L [place] % (Auto) 8.8 Eos % (Auto) 4.0 Baso % (Auto) 0.3 Absolute Neuts (auto) 7.0 Absolute Lymphs (auto) 1.42 Total Counted Not Reportable PT INR APTT D-Dimer Quant (PE/DVT) Sodium 135 L Potassium 5.2 H Chloride 101 Carbon Dioxide 20.0 L Anion Gap 14 BUN 25 H Creatinine 1.94 H Estim Creat Clear Calc 19.64 Est GFR (MDRD) Af Amer 32 L Est GFR (MDRD) Non-Af 26 L BUN/Creatinine Ratio 12.9 Glucose 339 H Calcium 9.1 Troponin I 0.082 H TSH 2.96 POC Glucose 210 H 05/09/18 05/09/18 05/09/18 01:58 04:33 04:33 WBC RBC Hgb Hct MCV MCH MCHC RDW RDW Differential Plt Count MPV Immature Gran % (Auto) Neut % (Auto) Lymph % (Auto) [place] % (Auto) Eos % (Auto) Baso % (Auto) Absolute Neuts (auto) Absolute Lymphs (auto) Total Counted PT 14.0 INR 1.1 APTT D-Dimer Quant (PE/DVT) Sodium 141 Potassium 4.8 Chloride 108 H Carbon Dioxide 23.0 Anion Gap 10 BUN 24 H Creatinine 1.40 H Estim Creat Clear Calc 29.50 Est GFR (MDRD) Af Amer 46 L Est GFR (MDRD) Non-Af 38 L BUN/Creatinine Ratio 17.1 Glucose 175 H Calcium 8.3 L Troponin I 0.372 H TSH POC Glucose 05/09/18 05/09/18 05/09/18 04:33 06:45 07:50 WBC RBC Hgb Hct MCV MCH MCHC RDW RDW Differential Plt Count MPV Immature Gran % (Auto) Neut % (Auto) Lymph % (Auto) [place] % (Auto) Eos % (Auto) Baso % (Auto) Absolute Neuts (auto) Absolute Lymphs (auto) Total Counted PT INR APTT D-Dimer Quant (PE/DVT) Sodium Potassium Chloride Carbon Dioxide Anion Gap BUN Creatinine Estim Creat Clear Calc Est GFR (MDRD) Af Amer Est GFR (MDRD) Non-Af BUN/Creatinine Ratio Glucose Calcium Troponin I 0.383 H 0.387 H TSH POC Glucose 165 H 05/09/18 05/09/18 05/09/18 11:35 13:55 16:45 WBC RBC Hgb Hct MCV MCH MCHC RDW RDW Differential Plt Count MPV Immature Gran % (Auto) Neut % (Auto) Lymph % (Auto) [place] % (Auto) Eos % (Auto) Baso % (Auto) Absolute Neuts (auto) Absolute Lymphs (auto) Total Counted PT INR APTT D-Dimer Quant (PE/DVT) 0.87 H* Sodium Potassium Chloride Carbon Dioxide Anion Gap BUN Creatinine Estim Creat Clear Calc Est GFR (MDRD) Af Amer Est GFR (MDRD) Non-Af BUN/Creatinine Ratio Glucose Calcium Troponin I TSH POC Glucose 308 H 246 H 05/09/18 05/10/18 05/10/18 21:25 05:00 05:00 WBC 5.8 RBC 3.01 L Hgb 9.7 L Hct 29.5 L MCV 98.0 MCH 32.2 H MCHC 32.9 RDW 13.2 RDW Differential 47.2 H Plt Count 197 MPV 8.5 Immature Gran % (Auto) 0.000 Neut % (Auto) 56.3 Lymph % (Auto) 21.9 [place] % (Auto) 9.1 Eos % (Auto) 12.4 H Baso % (Auto) 0.3 Absolute Neuts (auto) 3.3 Absolute Lymphs (auto) 1.27 Total Counted Not Reportable PT INR APTT D-Dimer Quant (PE/DVT) Sodium 144 Potassium 4.4 Chloride 112 H Carbon Dioxide 25.0 Anion Gap 7 BUN 19 H Creatinine 1.15 H Estim Creat Clear Calc 35.92 Est GFR (MDRD) Af Amer 58 L Est GFR (MDRD) Non-Af 48 L BUN/Creatinine Ratio 16.5 Glucose 123 H Calcium 8.0 L Troponin I TSH POC Glucose 183 H 05/10/18 05/10/18 05/10/18 05:00 06:53 12:52 WBC RBC Hgb Hct MCV MCH MCHC RDW RDW Differential Plt Count MPV Immature Gran % (Auto) Neut % (Auto) Lymph % (Auto) [place] % (Auto) Eos % (Auto) Baso % (Auto) Absolute Neuts (auto) Absolute Lymphs (auto) Total Counted PT 14.2 INR 1.1 APTT 34.3 D-Dimer Quant (PE/DVT) Sodium Potassium Chloride Carbon Dioxide Anion Gap BUN Creatinine Estim Creat Clear Calc Est GFR (MDRD) Af Amer Est GFR (MDRD) Non-Af BUN/Creatinine Ratio Glucose Calcium Troponin I TSH POC Glucose 99 161 H Operations: None Procedures: EKG, Nuclear stress test Summary of Care Provided: Patient is a 82-year-old female with a history of SVT, CAD, hypertension and type 2 diabetes. [facility] complaint of shortness of breath on 05/08/2018 and was unable to provide much history. According to her family than they said she had been short of breath for at least a day and a heart rate was noted to be in the 170s. Patient was noted to be in SVT on admission to ED and converted with administration of IV adenosine. D-dimer done was noted to be elevated and CT PE was negative for any PE. Troponins were noted to be slightly elevated at 0.082 and trended up to 0.387. Cardiology was on board I recommended a stress test. She had a stress test on 05/10/2018 which was negative. Patient remained stable and SVT did not recur. She was discharged to her extended-care facility on 05/10/2018. She is to follow-up with her primary care doctor and speech correction assistant in 1 week. Patient seen and examined this morning. She had no complaints and her daughter and son were at her bedside. She denied any fever or chills, any cough or chest pain, any shortness of breath, any belly pain, any diarrhea vomiting. Review of systems otherwise negative o/e: elderly female, pleasant, no complaints. HEENT: EOMI, PERRLA, no pallor or jaundice Oral: mucos moist Neck: supple, no JVD Lungs: clear to auscultation CVS: normal S1/S2, no murmurs ABdomen: soft,non tender, no organomegaly Skin: no rash Extremities: no edema Neuro: alert, CN II-XII intact Psych: normal affect, appropriate, AO x 3 Lumphatic: no lymphadenopathy Plan is to discharge patient to extended-care facility today. To follow-up with PCP and speech correction assistant. Weight Bearing Status: Weight bearing as tolerated Call your doctor if you observe: Shortness of breath, Increased palpitations (irregular heartbeat), - Home Medications: Medications to take at Discharge Levothyroxine [Synthroid] 25 mcg PO DAILY@0600 05/23/16 Meloxicam [Mobic] 15 mg PO QODAY 05/23/16 Multivit with Calcium,Iron,Min [Multiple Vitamins For Women] 1 tab PO DAILY 05/23/16 Trazodone HCl 50 mg PO QHS 05/23/16 Insulin Detemir [Levemir FlexPen] 32 units SC QHS 03/26/17 Ubidecarenone [Coenzyme Q-10] 200 mg PO DAILY 03/26/17 Vitamin E 400 unit PO DAILY 03/26/17 ergocalciferol (vitamin D2) 50,000 unit capsule 50,000 unit PO QMONTH 01/15/18 Atorvastatin Calcium [Lipitor] 20 mg PO QHS 03/01/18 Fluticasone/Salmeterol [Advair 500-50 Diskus] 1 each IH BID 03/01/18 Metformin HCl [Glucophage] 1,000 mg PO BIDCM 03/01/18 megestrol 20 mg tablet 10 mg PO TID tab 03/01/18 ondansetron HCl 4 mg tablet 4 mg PO Q8H PRN tab 03/01/18 oxybutynin chloride ER 10 mg tablet,extended release 24 hr 10 mg PO QHS 03/01/18 Aspirin [Aspirin, Baby] 81 mg PO DAILY@0800 #30 tab.chew 03/03/18 Hydroxyzine HCl 25 mg PO DAILY PRN 03/03/18 Cyanocobalamin (Vitamin B-12) [Vitamin B-12] 1,000 mcg PO TID 05/09/18 Ipratropium/Albuterol Sulfate [Duoneb] 3 ml INHALATION Q4H.RT PRN 05/09/18 Loperamide HCl [Loperamide] 2 mg PO PRN PRN 05/09/18 Ondansetron [Zofran Odt] 4 mg PO TID 05/09/18 Metoprolol Tartrate [Lopressor (beta katty)] 25 mg PO BID #60 tab 05/10/18 Following Prescrptions Were Given to Patient: Metoprolol Tartrate [Lopressor (beta katty)] 25 mg PO BID #60 tab Primary Care Physician: Yao Yousif DO [Primary Care Provider] - Please follow up with your Primary Care Physician in: one week Please Follow Up With: Markus Cueto MD When: one week Medical Necessity - Tobacco Use Smoking Status: Never smoker Meaningful Use Info Meaningful Use Diagnoses (Choose all that apply): None applicable Code Visit Inpatient E&M: 16516 Disch Hosp
--- NOTE | 2018-05-10 13:58 | DS.PCM_ITS ---
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 Recommend further evaluation with CT scan. Otherwise negative. Electronically Signed: Jose G Vo MD at 18:54 EDT , Service support , Chest CTA 05/09/18 14:31 Laboratory Tests 05/08/18 05/08/18 05/08/18 18:35 18:35 23:31 WBC 9.7 RBC 3.76 L Hgb 12.1 Hct 37.3 MCV 99.2 H MCH 32.2 H MCHC 32.4 RDW 13.4 RDW Differential 48.6 H Plt Count 306 MPV 9.2 Immature Gran % (Auto) 0.200 Neut % (Auto) 72.0 H Lymph % (Auto) 14.7 L White % (Auto) 8.8 Eos % (Auto) 4.0 Baso % (Auto) 0.3 Absolute Neuts (auto) 7.0 Absolute Lymphs (auto) 1.42 Total Counted Not Reportable PT INR APTT D-Dimer Quant (PE/DVT) Sodium 135 L Potassium 5.2 H Chloride 101 Carbon Dioxide 20.0 L Anion Gap 14 BUN 25 H Creatinine 1.94 H Estim Creat Clear Calc 19.64 Est GFR (MDRD) Af Amer 32 L Est GFR (MDRD) Non-Af 26 L BUN/Creatinine Ratio 12.9 Glucose 339 H Calcium 9.1 Troponin I 0.082 H TSH 2.96 POC Glucose 210 H 05/09/18 05/09/18 05/09/18 01:58 04:33 04:33 WBC RBC Hgb Hct MCV MCH MCHC RDW RDW Differential Plt Count MPV Immature Gran % (Auto) Neut % (Auto) Lymph % (Auto) White % (Auto) Eos % (Auto) Baso % (Auto) Absolute Neuts (auto) Absolute Lymphs (auto) Total Counted PT 14.0 INR 1.1 APTT D-Dimer Quant (PE/DVT) Sodium 141 Potassium 4.8 Chloride 108 H Carbon Dioxide 23.0 Anion Gap 10 BUN 24 H Creatinine 1.40 H Estim Creat Clear Calc 29.50 Est GFR (MDRD) Af Amer 46 L Est GFR (MDRD) Non-Af 38 L BUN/Creatinine Ratio 17.1 Glucose 175 H Calcium 8.3 L Troponin I 0.372 H TSH POC Glucose 05/09/18 05/09/18 05/09/18 04:33 06:45 07:50 WBC RBC Hgb Hct MCV MCH MCHC RDW RDW Differential Plt Count MPV Immature Gran % (Auto) Neut % (Auto) Lymph % (Auto) White % (Auto) Eos % (Auto) Baso % (Auto) Absolute Neuts (auto) Absolute Lymphs (auto) Total Counted PT INR APTT D-Dimer Quant (PE/DVT) Sodium Potassium Chloride Carbon Dioxide Anion Gap BUN Creatinine Estim Creat Clear Calc Est GFR (MDRD) Af Amer Est GFR (MDRD) Non-Af BUN/Creatinine Ratio Glucose Calcium Troponin I 0.383 H 0.387 H TSH POC Glucose 165 H 05/09/18 05/09/18 05/09/18 11:35 13:55 16:45 WBC RBC Hgb Hct MCV MCH MCHC RDW RDW Differential Plt Count MPV Immature Gran % (Auto) Neut % (Auto) Lymph % (Auto) White % (Auto) Eos % (Auto) Baso % (Auto) Absolute Neuts (auto) Absolute Lymphs (auto) Total Counted PT INR APTT D-Dimer Quant (PE/DVT) 0.87 H* Sodium Potassium Chloride Carbon Dioxide Anion Gap BUN Creatinine Estim Creat Clear Calc Est GFR (MDRD) Af Amer Est GFR (MDRD) Non-Af BUN/Creatinine Ratio Glucose Calcium Troponin I TSH POC Glucose 308 H 246 H 05/09/18 05/10/18 05/10/18 21:25 05:00 05:00 WBC 5.8 RBC 3.01 L Hgb 9.7 L Hct 29.5 L MCV 98.0 MCH 32.2 H MCHC 32.9 RDW 13.2 RDW Differential 47.2 H Plt Count 197 MPV 8.5 Immature Gran % (Auto) 0.000 Neut % (Auto) 56.3 Lymph % (Auto) 21.9 White % (Auto) 9.1 Eos % (Auto) 12.4 H Baso % (Auto) 0.3 Absolute Neuts (auto) 3.3 Absolute Lymphs (auto) 1.27 Total Counted Not Reportable PT INR APTT D-Dimer Quant (PE/DVT) Sodium 144 Potassium 4.4 Chloride 112 H Carbon Dioxide 25.0 Anion Gap 7 BUN 19 H Creatinine 1.15 H Estim Creat Clear Calc 35.92 Est GFR (MDRD) Af Amer 58 L Est GFR (MDRD) Non-Af 48 L BUN/Creatinine Ratio 16.5 Glucose 123 H Calcium 8.0 L Troponin I TSH POC Glucose 183 H 05/10/18 05/10/18 05/10/18 05:00 06:53 12:52 WBC RBC Hgb Hct MCV MCH MCHC RDW RDW Differential Plt Count MPV Immature Gran % (Auto) Neut % (Auto) Lymph % (Auto) White % (Auto) Eos % (Auto) Baso % (Auto) Absolute Neuts (auto) Absolute Lymphs (auto) Total Counted PT 14.2 INR 1.1 APTT 34.3 D-Dimer Quant (PE/DVT) Sodium Potassium Chloride Carbon Dioxide Anion Gap BUN Creatinine Estim Creat Clear Calc Est GFR (MDRD) Af Amer Est GFR (MDRD) Non-Af BUN/Creatinine Ratio Glucose Calcium Troponin I TSH POC Glucose 99 161 H Operations: None Procedures: EKG, Nuclear stress test Summary of Care Provided: Patient is a 82-year-old female with a history of SVT, CAD, hypertension and type 2 diabetes. She was admitted from the detention with a complaint of shortness of breath on 05/08/2018 and was unable to provide much history. According to her family than they said she had been short of breath for at least a day and a heart rate was noted to be in the 170s. Patient was noted to be in SVT on admission to ED and converted with administration of IV adenosine. D-dimer done was noted to be elevated and CT PE was negative for any PE. Troponins were noted to be slightly elevated at 0.082 and trended up to 0.387. Cardiology was on board I recommended a stress test. She had a stress test on which was negative. Patient remained stable and SVT did not recur. She was discharged to her extended-care facility on 05/10/2018. She is to follow- up with her primary care doctor and business support assistant in 1 week. Patient seen and examined this morning. She had no complaints and her daughter and son were at her bedside. She denied any fever or chills, any cough or chest pain, any shortness of breath, any belly pain, any diarrhea vomiting. Review of systems otherwise negative o/e: elderly female, pleasant, no complaints. HEENT: EOMI, PERRLA, no pallor or jaundice Oral: mucos moist Neck: supple, no JVD Lungs: clear to auscultation CVS: normal S1/S2, no murmurs ABdomen: soft,non tender, no organomegaly Skin: no rash Extremities: no edema Neuro: alert, CN II-XII intact Psych: normal affect, appropriate, AO x 3 Lumphatic: no lymphadenopathy Plan is to discharge patient to extended-care facility today. To follow-up with PCP and business support assistant. Weight Bearing Status: Weight bearing as tolerated Call your doctor if you observe: Shortness of breath, Increased palpitations ( irregular heartbeat), - Home Medications: Medications to take at Discharge Levothyroxine [Synthroid] 25 mcg PO DAILY@0600 05/23/16 Meloxicam [Mobic] 15 mg PO QODAY 05/23/16 Multivit with Calcium,Iron,Min [Multiple Vitamins For Women] 1 tab PO DAILY Trazodone HCl 50 mg PO QHS 05/23/16 Insulin Detemir [Levemir FlexPen] 32 units SC QHS 03/26/17 Ubidecarenone [Coenzyme Q-10] 200 mg PO DAILY 03/26/17 Vitamin E 400 unit PO DAILY 03/26/17 ergocalciferol (vitamin D2) 50,000 unit capsule 50,000 unit PO QMONTH 01/15/18 Atorvastatin Calcium [Lipitor] 20 mg PO QHS 03/01/18 Fluticasone/Salmeterol [Advair 500-50 Diskus] 1 each IH BID 03/01/18 Metformin HCl [Glucophage] 1,000 mg PO BIDCM 03/01/18 megestrol 20 mg tablet 10 mg PO TID tab 03/01/18 ondansetron HCl 4 mg tablet 4 mg PO Q8H PRN tab 03/01/18 oxybutynin chloride ER 10 mg tablet,extended release 24 hr 10 mg PO QHS Aspirin [Aspirin, Baby] 81 mg PO DAILY@0800 #30 tab.chew 03/03/18 Hydroxyzine HCl 25 mg PO DAILY PRN 03/03/18 Cyanocobalamin (Vitamin B-12) [Vitamin B-12] 1,000 mcg PO TID 05/09/18 Ipratropium/Albuterol Sulfate [Duoneb] 3 ml INHALATION Q4H.RT PRN 05/09/18 Loperamide HCl [Loperamide] 2 mg PO PRN PRN 05/09/18 Ondansetron [Zofran Odt] 4 mg PO TID 05/09/18 Metoprolol Tartrate [Lopressor (beta katty)] 25 mg PO BID #60 tab 05/10/18 Following Prescrptions Were Given to Patient: Metoprolol Tartrate [Lopressor (beta katty)] 25 mg PO BID #60 tab Primary Care Physician: Yao Yousif DO [Primary Care Provider] - Please follow up with your Primary Care Physician in: one week Please Follow Up With: Markus Cueto MD When: one week Medical Necessity - Tobacco Use Smoking Status: Never smoker Meaningful Use Info Meaningful Use Diagnoses (Choose all that apply): None applicable Code Visit Inpatient E&M: 06290 Disch Hosp
--- NOTE | 2018-05-10 14:05 | TREXTCAR_ITS ---
- Diet 05/10/18 13:39 Diet: Cardiac: Calorie-Controlled Is pt able to select menu?: No How many daily calories?: 1999 calorie - Routine Orders/Code Status Enema Type: Fleetz Enema Frequency: Daily PRN Suppository Type: Dulcolax 10mg Suppository Frequency: Daily PRN Code Status: Full Code - Therapies Weight Bearing: Weight bearing as tolerated Physical Therapy: Eval and Treat Occupational Therapy: Eval and Treat - Allergies/Procedures Done in Hospital Allergies/Adverse Reactions: Allergies Sulfa (Sulfonamide Antibiotics) Allergy (Unknown, Verified 05/08/18 18:32) Unknown adhesive tape Allergy (Verified 05/08/18 18:32) Other citalopram Allergy (Verified 05/09/18 13:25) Unknown codeine Allergy (Verified 05/08/18 18:32) HEART ATTACK Latex, Natural Rubber Allergy (Verified 05/08/18 18:32) Rash levofloxacin [From Levaquin] Allergy (Verified 05/08/18 18:32) Anaphylaxis Penicillins Allergy (Verified 05/08/18 18:32) Rash acetaminophen [From Vicodin] Adverse Reaction (Verified 05/08/18 18:32) Chest tightness hydrocodone bitartrate [From Vicodin] Adverse Reaction (Verified 05/08/18 18:32) Chest tightness Procedures: EKG, Nuclear Stress Test - Type of Care/Length of Stay Estimated LOS: More Than 30 Days Type of Care Needed: [facility]/Assisted Living Rehab Potential: Good Prognosis: Good - Additional Orders/Day of Discharge H&P will serve as current which was dated: 05/08/18 Day of Discharge: 05/10/18 - Dietary and Speech Recommendations Dietitian Recommendations/Changes: Rec diet change to CHO Control Cardiac. Rec continue ONS medpass - Follow Up Care Primary Care Physician: Yao Yousif DO [Primary Care Provider] - Please follow up with your Primary Care Physician in: one week Please Follow Up With: Markus Cueto MD When: one week
[2018-05-10] MEDS: Metoprolol Tartrate 25 MG Tablet PO (14:20)
[2018-05-10] MEDS: Glucerna Shake 120 ML LIQUID PO (14:21)
[2018-05-10] MEDS: Multivitamins,Ther W-Minerals Tablet 1 TABLET PO (14:21)
[2018-05-10] MEDS: Vitamin E 400 UNITS Capsule PO (14:21)
--- NOTE | 2018-05-10 14:40 | PCM.DC ---
- Discharge Diagnoses Current Active Problems: Current Active and Chronic Problems (Last Reviewed 03/01/18 @ 13:10 by Victoria Fu) DEMETRA (acute kidney injury) (Acute) You will use the following diet at home:: Cardiac Your food should be the consistency of: Regular Your liquids should be the consistency of: Regular/Thin Discharge Activity: Return to Normal Activity Weight Bearing Status: Weight bearing as tolerated Call your doctor if you observe: Shortness of breath, Increased palpitations (irregular heartbeat), - Allergies/Adverse Reactions: Allergies Sulfa (Sulfonamide Antibiotics) Allergy (Unknown, Verified 05/08/18 18:32) Unknown adhesive tape Allergy (Verified 05/08/18 18:32) Other citalopram Allergy (Verified 05/09/18 13:25) Unknown codeine Allergy (Verified 05/08/18 18:32) HEART ATTACK Latex, Natural Rubber Allergy (Verified 05/08/18 18:32) Rash levofloxacin [From Levaquin] Allergy (Verified 05/08/18 18:32) Anaphylaxis Penicillins Allergy (Verified 05/08/18 18:32) Rash acetaminophen [From Vicodin] Adverse Reaction (Verified 05/08/18 18:32) Chest tightness hydrocodone bitartrate [From Vicodin] Adverse Reaction (Verified 05/08/18 18:32) Chest tightness Medications to take at Discharge Levothyroxine [Synthroid] 25 mcg PO DAILY@0600 05/23/16 Meloxicam [Mobic] 15 mg PO QODAY 05/23/16 Multivit with Calcium,Iron,Min [Multiple Vitamins For Women] 1 tab PO DAILY 05/23/16 Trazodone HCl 50 mg PO QHS 05/23/16 Insulin Detemir [Levemir FlexPen] 32 units SC QHS 03/26/17 Ubidecarenone [Coenzyme Q-10] 200 mg PO DAILY 03/26/17 Vitamin E 400 unit PO DAILY 03/26/17 ergocalciferol (vitamin D2) 50,000 unit capsule 50,000 unit PO QMONTH 01/15/18 Atorvastatin Calcium [Lipitor] 20 mg PO QHS 03/01/18 Fluticasone/Salmeterol [Advair 500-50 Diskus] 1 each IH BID 03/01/18 Metformin HCl [Glucophage] 1,000 mg PO BIDCM 03/01/18 megestrol 20 mg tablet 10 mg PO TID tab 03/01/18 ondansetron HCl 4 mg tablet 4 mg PO Q8H PRN tab 03/01/18 oxybutynin chloride ER 10 mg tablet,extended release 24 hr 10 mg PO QHS 03/01/18 Aspirin [Aspirin, Baby] 81 mg PO DAILY@0800 #30 tab.chew 03/03/18 Hydroxyzine HCl 25 mg PO DAILY PRN 03/03/18 Cyanocobalamin (Vitamin B-12) [Vitamin B-12] 1,000 mcg PO TID 05/09/18 Ipratropium/Albuterol Sulfate [Duoneb] 3 ml INHALATION Q4H.RT PRN 05/09/18 Loperamide HCl [Loperamide] 2 mg PO PRN PRN 05/09/18 Ondansetron [Zofran Odt] 4 mg PO TID 05/09/18 Metoprolol Tartrate [Lopressor (beta katty)] 25 mg PO BID #60 tab 05/10/18 The following prescriptions were given: Metoprolol Tartrate [Lopressor (beta katty)] 25 mg PO BID #60 tab Primary Care Physician: Yao Yousif DO [Primary Care Provider] - Please follow up with your Primary Care Physician in: one week Test Results: Test results from this visit will be discussed in further detail at your follow-up appointment, if applicable. Please Follow Up With: Markus Cueto MD When: one week Proposed Discharge Date: 05/10/18
--- NOTE | 2018-05-10 14:47 | CASEMGMT ---
Social Work: D/C instructions and D/C summary faxed to Stella at [facility]. PLAN: Patient to return to [facility] with family trasnporting. DAVE Spear
== END 2018-05-10 16:02 | disposition home or self-care (01) | DRG 309 ==
LOC: ED 21:51 → PCU 21:53
PROVIDERS: Internal Medicine Cardiovascular Disease; Admitting Provider Internal Medicine; Emergency Provider Emergency Medicine; Family Provider Family Medicine; PCP Family Medicine; Visit Provider Student in an Organized Health Care Education/Training Program
DX: I47.1 Supraventricular tachycardia (principal); N17.9 Acute kidney failure, unspecified; I36.1 Nonrheumatic tricuspid (valve) insufficiency; I25.10 Atherosclerotic heart disease of native coronary artery without angina pectoris; E03.9 Hypothyroidism, unspecified; E78.5 Hyperlipidemia, unspecified; Z86.73 Personal history of transient ischemic attack (TIA), and cerebral infarction without residual deficits; Z79.4 Long term (current) use of insulin; Z86.79 Personal history of other diseases of the circulatory system; E11.9 Type 2 diabetes mellitus without complications; I10 Essential (primary) hypertension
CPT/HCPCS: 36415; 71045; 71275; 78452; 80048; 82962; 84443; 84484; 85025; 85379; 85610; 85730; 93005; 93017; 94640; 97802; 99283; A9500; J7030; J7040; Q9967; A4216; J0153; J2785

== ENCOUNTER 2018-06-04 09:21 | Emergency (ER) | payer MEDICARE, OTHER, SELFPAY ==
[2018-06-04 09:22] VITALS: BP 112/71; PULSE 79; RESP 11; TEMP 36.5; O2SAT 95; BMI 28.4
--- NOTE | 2018-06-04 09:27 | EKG12_ITS ---
Test Reason : PALPS Blood Pressure : / mmHG Vent. Rate : 082 BPM Atrial Rate : 082 BPM P-R Int : 128 ms QRS Dur : 084 ms QT Int : 384 ms P-R-T Axes : 013 -26 008 degrees QTc Int : 448 ms Normal sinus rhythm Leftward axis Poor R wave progression Confirmed by SONIA MERCER, MARGARITO ([id number]), production editor SADIQ BUENO ([id number] on 06/07/2018 2:26:22 PM Referred By: Confirmed By:MARGARITO SCOTT MD
[2018-06-04 09:28] VITALS: PULSE 82
--- NOTE | 2018-06-04 09:49 | ED.VISSUMM ---
- ER Visit Summary Date of Service: 06/04/18 Chief Complaint: Palpitations History of Present Illness: The patient is a 82 F with history of SVT had palpitations, a prehospital EKG showed SVT and she was given adenosine she converted prior to arrival she appears in no acute distress and she tells me she is now asymptomatic and feels back to normal. Physical Examination: Not appear in acute distress. Moist mucous membranes, no obvious facial deformity No C-spine tenderness supple neck. Regular rate and rhythm without any obvious murmurs Clear lungs bilaterally speaking in full sentences without any obvious respiratory distress Abdomen soft and nontender no guarding or rebound Moves all extremities without any difficulty or pain. Skin does not show any obvious rashes or lesions, no trauma. Alert oriented ?3 with no gross focal deficit Emergency Department Course and Treatment: A repeat EKG showed sinus rhythm, I compared it to the prehospital EKGs which showed SVT, this is quite clear she converted this is chronic and recurrent she sees cardiology she is to follow-up with down. Otherwise she will be discharged in stable condition Impression: SVT resolved This note was generated with [employer] dictation software. It may contain incorrect words, spelling, and punctuation that were not noted in review of the chart prior to signing ED Disposition - Plan for ED Patient: Disposition: Home or Assisted Living Chief Complaint: Palpitations Instructions: ED Tachycardia Pat PSVT Referrals: Yao Yousif DO [Primary Care Provider] - 3-5 Days
[2018-06-04 10:24] VITALS: BP 106/91; PULSE 72; RESP 18
--- NOTE | 2018-06-04 10:31 | ED.RN ---
1031 CALLED IDALIA AT [facility] TO LET HER KNOW DAUGHTER WAS BRINGING PT BACK.
== END 2018-06-04 10:42 | disposition home or self-care (01) ==
PROVIDERS: Emergency Provider Emergency Medicine; Family Provider Family Medicine; PCP Family Medicine
DX: I47.1 Supraventricular tachycardia (principal)
CPT/HCPCS: 93005; 99285; J7030; J0153

== ENCOUNTER → 2018-06-09 05:00 | Outpatient (REF) | payer MEDICARE, OTHER, SELFPAY ==
[2018-06-09 08:09] LABS: AST(SGOT) 14 U/L (15-37); Alanine Aminotransfer ALT/SGPT 18 U/L (13-56); Albumin, Serum 2.8 g/dL (3.2-5.0); Alkaline Phosphatase 116 U/L (45-117); Bilirubin, Direct 0.14 mg/dL (0.00-0.30); Cholesterol 96 mg/dL (200); High Density Lipoprotein 63 mg/dL; Protein, Total 5.8 g/dL (6.4-8.2); Triglycerides 35 mg/dL; Very Low Density Lipoprotein 7 mg/dL (5-40)
== END ==
LOC: OLS.WHLBEN 05:00
PROVIDERS: Visit Provider Family Medicine
DX: E11.9 Type 2 diabetes mellitus without complications (principal); E78.5 Hyperlipidemia, unspecified
CPT/HCPCS: 36415; 80061; 80076

== ENCOUNTER → 2018-07-07 05:00 | Outpatient (REF) | payer MEDICARE, OTHER, SELFPAY ==
[2018-07-07 07:53] LABS: Cholesterol 105 mg/dL (200); High Density Lipoprotein 65 mg/dL; Triglycerides 61 mg/dL; Very Low Density Lipoprotein 12 mg/dL (5-40)
[2018-07-07 08:43] LABS: Vitamin D,25 Hydroxy 39.8 ng/mL (29.95-100.01)
== END ==
LOC: OLS.WHLBEN 05:00
PROVIDERS: Visit Provider Family Medicine
DX: E11.9 Type 2 diabetes mellitus without complications (principal)
CPT/HCPCS: 36415; 80061; 82306; 83036

== ENCOUNTER 2018-07-20 07:42 | Inpatient (IN) | payer MEDICARE, OTHER, SELFPAY ==
[2018-07-20] VITALS (59 sets, daily range): BP systolic 73–155; BP diastolic 32–92; PULSE 71–120; RESP 11–59; TEMP -5.5–37.1; O2SAT 93–100; BMI 28.2; BMI 29.2
--- NOTE | 2018-07-20 07:55 | EKG12_ITS ---
Test Reason : WEAKNESS Blood Pressure : / mmHG Vent. Rate : 086 BPM Atrial Rate : 086 BPM P-R Int : 138 ms QRS Dur : 090 ms QT Int : 388 ms P-R-T Axes : 021 -42 013 degrees QTc Int : 464 ms Normal sinus rhythm Left axis deviation Minimal voltage criteria for LVH, may be normal variant Anterolateral infarct , age undetermined , cannot be excluded Abnormal ECG Confirmed by SONIA MERCER, MARGARITO ([id number]), metropolitan editor SADIQ BUENO ([id number] on 07/21/2018 2:11:47 PM Referred By: MONA Confirmed By:MARGARITO SCOTT MD
--- NOTE | 2018-07-20 07:55 | RAD_ITS ---
STUDY: X-RAY CHEST REASON FOR EXAM: Female, 82 years old. Hypothermia. Sepsis. TECHNIQUE: Single AP portable view of the chest. COMPARISON: Comparison is made with prior examination dated May 08, 2018. FINDINGS: EKG electrodes are seen. Increased linear markings at the lung bases suggestive of early atelectasis and possible scarring. Blunting of the left costophrenic angle. There is mild cardiac enlargement. Normal mediastinum and aruna. Normal visualized pulmonary arteries. There is atherosclerotic calcification of the aortic arch with tortuosity. There are diffuse degenerative changes of the visualized thoracic spine. There is degenerative osteoarthritis of the bilateral shoulders. Questionable free intraperitoneal air. I recommend a right side up lateral decubitus view for further assessment. RAD/Chest 1 View (Portable) IMPRESSION: Findings suggestive of underlying atelectasis and/or scarring at the lung bases. Questionable free air beneath the right hemidiaphragm. A right side up decubitus view is recommended for further evaluation. Electronically Signed: Jourdan De La Fuente MD at 8:36 EDT Tel [phone], Service support ,
[2018-07-20] MEDS: 0.9% Normal Saline 1,000 ML IV.SOLN. 2400 ML IV (08:09)
--- NOTE | 2018-07-20 08:12 | ED.VISSUMM ---
- ER Visit Summary Date of Service: 07/20/18 Chief Complaint: Patient presents from intermediate because of confusion and not feeling History of Present Illness: The patient is a 82 F who states I feel like she had . Patient denies every question asked except weakness and not feeling well. Paperwork that accompanied her from intermediate was reviewed and there is no new medication that would explain her confusion or hypotension. Physical Examination: Initial blood pressure 87/58 temperature 96.9. She is not hypoxic. She appears pale. HEENT is remarkable for dry mucosa. She has a facial droop on the right, which is old according to son. He arrived after initial history and physical. Lungs are clear to auscultation. Heart is regular. Abdomen is soft nontender. She has mild edema both lower extremities. Carotid and femoral pulses palpable. Diminished radial pulse and absent DP and PT pulse. She is alert but disoriented. She laughs inappropriately. Motor sensory intact. DTRs are 1+ and symmetric. She withdraws to Babinski testing. Test Results: EKG reveals a sinus rhythm rate 86 with left ear anterior fascicular block. There is evidence of LVH. There is a flipped T-wave in lead III which is a normal variant. Portable upright chest x-ray reveals free air under the right hemidiaphragm. I was contacted by Dr. Jimenez who was concerned this may represent free air. Recommended decubitus film. Decubitus film confirms pneumoperitoneum. CBC is unremarkable. Electrolyte panel is remarkable for glucose of 222 and a BUN creatinine of 27 and 2.35 respectively. Troponin is less than 0.015. Lactate is 5.9. Emergency Department Course and Treatment: Since patient is hypothermic and hypotensive infectious workup was undertaken. This also may be a drug related issue or metabolic. Blood cultures were ordered. A temperature probe Benitez was placed for accurate temperature as well as I's and O's. She will receive a 30 cc/kg bolus of normal saline. Dr. Hannah was contacted and is presently seeing patient. Because of her antibiotic allergies she will receive 900 mg of clindamycin and Azactam. Nurse was asked to place a second line. Radiology suite was contacted since Dr. sauer and requested a CT of the abdomen pelvis without contrast to further delineate the cause of the pneumoperitoneum. Dr. Juan Jose Lemon who is on duty for ICU admissions was made aware the patient. Critical care time 37 minutes Treatment Plan: Surgical intervention to OR and treat for septic shock Disposition: To OR then ICU Impression: 1. Septic shock 2. Acute kidney injury 3. Pneumoperitoneum 4. Hyperglycemia This note was generated with [employer] dictation software. It may contain incorrect words, spelling, and punctuation that were not noted in review of the chart prior to signing ED Disposition - Plan for ED Patient: Chief Complaint: Weakness
--- NOTE | 2018-07-20 08:15 | ED.DCSUM_ITS ---
- ER Visit Summary Date of Service: 07/20/18 Chief Complaint: Patient presents from care home because of confusion and not feeling History of Present Illness: The patient is a 82 F who states I feel like she had . Patient denies every question asked except weakness and not feeling well. Paperwork that accompanied her from care home was reviewed and there is no new medication that would explain her confusion or hypotension. Physical Examination: Initial blood pressure 87/58 temperature 96.9. She is not hypoxic. She appears pale. HEENT is remarkable for dry mucosa. She has a facial droop on the right, which is old according to son. He arrived after initial history and physical. Lungs are clear to auscultation. Heart is regular. Abdomen is soft nontender. She has mild edema both lower extremities. Carotid and femoral pulses palpable. Diminished radial pulse and absent DP and PT pulse. She is alert but disoriented. She laughs inappropriately. Motor sensory intact. DTRs are 1+ and symmetric. She withdraws to Babinski testing. Test Results: EKG reveals a sinus rhythm rate 86 with left ear anterior fascicular block. There is evidence of LVH. There is a flipped T-wave in lead III which is a normal variant. Portable upright chest x-ray reveals free air under the right hemidiaphragm. I was contacted by Dr. Jimenez who was concerned this may represent free air. Recommended decubitus film. Decubitus film confirms pneumoperitoneum. CBC is unremarkable. Electrolyte panel is remarkable for glucose of 222 and a BUN creatinine of 27 and 2.35 respectively. Troponin is less than 0.015. Lactate is 5.9. Emergency Department Course and Treatment: Since patient is hypothermic and hypotensive infectious workup was undertaken. This also may be a drug related issue or metabolic. Blood cultures were ordered. A temperature probe Benitez was placed for accurate temperature as well as I's and O's. She will receive a 30 cc/kg bolus of normal saline. Dr. Hannah was contacted and is presently seeing patient. Because of her antibiotic allergies she will receive 900 mg of clindamycin and Azactam. Nurse was asked to place a second line. Radiology suite was contacted since Dr. sauer and requested a CT of the abdomen pelvis without contrast to further delineate the cause of the pneumoperitoneum. Dr. Juan Jose Lemon who is on duty for ICU admissions was made aware the patient. Critical care time 37 minutes Treatment Plan: Surgical intervention to OR and treat for septic shock Disposition: To OR then ICU Impression: 1. Septic shock 2. Acute kidney injury 3. Pneumoperitoneum 4. Hyperglycemia This note was generated with [employer] dictation software. It may contain incorrect words, spelling, and punctuation that were not noted in review of the chart prior to signing ED Disposition - Plan for ED Patient: Chief Complaint: Weakness
[2018-07-20 08:21] LABS: Basophil# 0.02 X10^3/uL; Basophil% 0.2 % (0-1); Hematocrit 42.8 % (37-47); Hemoglobin 13.9 g/dl (12.0-15.0); Lymphocyte % 6.2 % (19-41); Mean Corp Hgb Conc 32.5 g/gl (32-36); Mean Corpuscular Hgb 31.4 pg (27.0-32.0); Mean Corpuscular Volume 96.6 fL (81-99); Mean Platelet Vol. 8.9 fl (6.2-12.0); Monocyte# 0.59 X10^3/uL; Monocyte% 7.3 % (0-10); Neutrophil # 6.95 X10^3/uL (2.7-7.7); Neutrophil % 85.9 % (47-70); Platelet Count 298 K/mm3 (150-450); RBC Distribution Width CV 14.2 % (11.6-14.6); RBC Distribution Width SD 50.1 fl (35.1-43.9); Red Blood Count 4.43 M/mm3 (4.2-5.4); White Blood Count 8.1 K/mm3 (4.4-11.0)
[2018-07-20 08:22] LABS: Differential Indicated SCAN CRITERIA MET; POSITIVE COUNT NO; POSITIVE DIFFERENTIAL YES; POSITIVE MORPHOLOGY YES
[2018-07-20 08:25] LABS: Blood Gas Specimen Type VEN; O2 Delivery Device Room Air; Time Given 818; VBG BASE EXCESS 1 mmol/L (-1.0-3.5); VBG Bicarbonate 27 mmol/L (22-26); VBG Oxygen Content 28 mmol/L (23-33); VBG PO2 23 mmHg (25-40); VBG SO2 37 % (50-70); VBG pCO2 47.1 mmHg (41-51); VBG pH 7.36 (7.32-7.42)
--- NOTE | 2018-07-20 08:30 | RAD_ITS ---
STUDY: X-RAY CHEST REASON FOR EXAM: Female, 82 years old. Abdominal pain. Evaluation for free intraperitoneal air. TECHNIQUE: Left side down decubitus view COMPARISON: Comparison is made with prior chest radiograph done earlier today. FINDINGS: There is evidence of free intraperitoneal air. RAD/Chest 1 View (Portable) IMPRESSION: Free intraperitoneal air. The referring physician was notified. Electronically Signed: Jourdan De La Fuente MD at 9:15 EDT Tel [phone], Service support ,
[2018-07-20 08:34] LABS: ALB/GLOB Ratio 0.8 RATIO (0.9-2.4); AST(SGOT) 18 U/L (15-37); Alanine Aminotransfer ALT/SGPT 15 U/L (13-56); Alkaline Phosphatase 101 U/L (45-117); Anion Gap 15 (5-15); BUN 27 mg/dL (7-18); BUN/Creat Ratio 11.5 RATIO (10-20); Calcium,Total 9.4 mg/dL (8.5-10.1); Chloride 99 mmol/L (98-107); Creatinine, Serum 2.35 mg/dL (0.55-1.02); EST Glomerular Filtration Rate 21 mL/min (>60); Est Glom Filt Rate - Afr Amer 26 mL/min (>60); Estimated Creatinine Clearance 17.58 ml/min; Globulin 3.6 g/dL (2.2-4.2); Glucose 222 mg/dL (74-106); Potassium 4.9 mmol/L (3.5-5.1); Protein, Total 6.6 g/dL (6.4-8.2); Sodium Level 139 mmol/L (136-145)
[2018-07-20 08:37] LABS: Prothrombin Time (Protime)PT. 13.4 SECONDS (11.7-14.9)
[2018-07-20 08:38] LABS: Lactic Acid 5.9 mmol/L (0.4-2.0); Partial Thromboplast Time 23.9 Seconds (24.1-36.2)
[2018-07-20 08:40] LABS: Color, Urine Yellow (Yellow); Glucose, Dipstick Normal (Normal); Ketone-Dipstick 5 mg/dl (Negative); Leukocyte Esterase-Dipstick 500 /ul (Negative); Nitrite-Dipstick Negative (Negative); Occult Blood-Urine 50 /ul (Negative); Protein-Dipstick 100 mg/dl (Negative); Specific Gravity, Urine 1.015 (1.002-1.030); Urine Clarity Cloudy (Clear); Urine Urobilinogen 1 mg/dl (Normal)
[2018-07-20 08:46] LABS: Urine Bilirubin Dipstick 1 mg/dL (Negative)
--- NOTE | 2018-07-20 08:46 | NURSING ---
DR NICOLE PAGED
[2018-07-20 08:48] LABS: White Blood Cells >100 SEEN /hpf (0-5)
[2018-07-20 08:50] LABS: Bacteria 4+ /hpf (None Seen); Red Blood Cells-Urine 0-5 SEEN /hpf (0-5); Squamous Epithelial Cells - UA 0-5 SEEN /hpf (5-10)
[2018-07-20 08:51] LABS: Mucous, Urine RARE /hpf (<or=2+)
--- NOTE | 2018-07-20 08:55 | CT_ITS ---
STUDY: CT ABDOMEN AND PELVIS WITHOUT CONTRAST REASON FOR EXAM: Female, 82 years old. Weakness. Free intraperitoneal air. RADIATION DOSAGE (If Supplied By Facility): CTDIvol = ( 16 ) mGy, DLP = ( 775.35 ) mGycm TECHNIQUE: Transaxial images were obtained from the dome of the diaphragm to the symphysis pubis without oral contrast, and without intravenous contrast. Sagittal and coronal images were reconstructed. Individualized dose optimization techniques were used for this CT. COMPARISON: Comparison is made with prior study dated August 29, 2016. FINDINGS: Increased markings at the lung bases with areas of confluence suggestive of bibasilar atelectasis. The visualized portions of the heart are within normal limits. There is evidence of free intraperitoneal air. There is also evidence of free air in the retroperitoneum as well as in the region of the kam hepatis and left paracolic gutter. Small amount of the perihepatic fluid. Normal gallbladder and extrahepatic biliary system. There are multiple benign calcified granulomata of the spleen. There is diffuse atrophy of the pancreas. Normal bilateral adrenal glands. Normal right kidney. There is a 2.8 cm x 2.5 cm cyst in the upper midportion of the left kidney. Normal visualized stomach. Normal small intestine. Moderate amount of fecal material is seen within the colon. There is evidence of a sigmoid diverticulosis. Loculated free air is seen along the mesenteric surface of the descending colon and sigmoid colon. A small amount of fluid is seen at that level with increased markings in the surrounding peritoneal fat. This may represent the area of perforation. The appendix is visualized and appears normal. There is diffuse atherosclerotic calcification of the abdominal aorta, without a demonstrated aneurysm. Normal inferior vena cava. Normal retroperitoneum. Normal urinary bladder. There is absence of the uterus consistent with a prior hysterectomy. There is a small umbilical hernia containing fat. There are diffuse degenerative changes of the visualized lumbar spine. Status post bilateral total hip replacement causing limited view of the pelvis due to beam hardening artifacts. CT/Abdomen/Pelvis without Cont IMPRESSION: Free intraperitoneal air as well as retroperitoneal air. Sigmoid diverticulosis and possible perforation of the sigmoid colon Bibasilar atelectasis. Stable left renal cyst. Electronically Signed: Jourdan De La Fuente MD at 9:38 EDT Tel [phone], Service support ,
--- NOTE | 2018-07-20 09:08 | NURSING ---
ICU ROBOTHAM SEPTIC SHOCK, PNEUOMOPERITONEUM
--- NOTE | 2018-07-20 09:21 | CON.PCM_ITS ---
Reason for Consult Date of Consultation: 07/20/18 Reason for Consultation: Pneumoperitoneum History of Present Illness: The patient is a 82 year old F presented to the ER from her assisted living due to not feeling well for the past day and not been able to sleep. Patient is accompanied by her family. Patient and her family denies any nausea/vomiting/ complains of abdominal pain. Patient states she has had a normal bowel movement denies any blood. Patient had a chest x-ray which questions whether there is pneumoperitoneum. Her white blood count within normal limits but she does have a left shift with also a lactate of 5.9 and acute kidney injury with a creatinine of 2.35. She was initially hypotensive and has been getting boluses of fluid in the ER and has been responding. Patient does have past medical history for SVT, diabetes and history of stroke about 2 years ago with continued deficit of speech. Per the family she lives in the assisted living and she is able to get around with a walker. 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 (Chronic) COPD (chronic obstructive pulmonary disease) (Chronic) Hyperlipidemia (Chronic) Type 2 diabetes mellitus (Chronic) Medical History: Medical History (Last Reviewed 03/01/18 @ 13:10 by Victoria Fu) Takotsubo cardiomyopathy (Chronic) I51.81 Nonrheumatic tricuspid (valve) insufficiency (Chronic) I36.1 Atherosclerotic heart disease of [place] coronary artery without angina pectoris (Chronic) I25.10 Mild Hypothyroidism (Chronic) E03.9 COPD (chronic obstructive pulmonary disease) (Chronic) J44.9 Hyperlipidemia (Chronic) E78.5 Type 2 diabetes mellitus (Chronic) E11.9 Anemia D64.9 CVA (cerebral vascular accident) I63.9 Depression F32.9 Osteoarthritis M19.90 Allergies codeine Allergy (Severe, Verified 07/20/18 08:52) HEART ATTACK levofloxacin [From Levaquin] Allergy (Severe, Verified 07/20/18 08:52) Anaphylaxis Sulfa (Sulfonamide Antibiotics) Allergy (Unknown, Verified 07/20/18 08:52) Unknown adhesive tape Allergy (Verified 07/20/18 08:52) Other citalopram Allergy (Verified 07/20/18 08:52) Unknown Latex, Natural Rubber Allergy (Verified 07/20/18 08:52) Rash Penicillins Allergy (Verified 07/20/18 08:52) Rash acetaminophen [From Vicodin] Adverse Reaction (Verified 07/20/18 08:52) Chest tightness hydrocodone bitartrate [From Vicodin] Adverse Reaction (Verified 07/20/18 08:52) Chest tightness Home Medications: Ambulatory Orders Medication Instructions Recorded Levothyroxine [Synthroid] 25 mcg PO DAILY@0600 05/23/16 Meloxicam [Mobic] 15 mg PO QODAY 05/23/16 Multivit with Calcium,Iron,Min 1 tab PO DAILY 05/23/16 [Multiple Vitamins For Women] Trazodone HCl 50 mg PO QHS 05/23/16 Ubidecarenone [Coenzyme Q-10] 200 mg PO DAILY 03/26/17 ergocalciferol (vitamin D2) 50,000 50,000 unit PO QMONTH 01/15/18 unit capsule Atorvastatin Calcium [Lipitor] 20 mg PO QHS 03/01/18 ondansetron HCl 4 mg tablet 4 mg PO Q8H PRN tab 03/01/18 oxybutynin chloride ER 10 mg 10 mg PO QHS 03/01/18 tablet,extended release 24 hr Hydroxyzine HCl 25 mg PO DAILY PRN 03/03/18 Ipratropium/Albuterol Sulfate 3 ml INHALATION Q4H.RT PRN 05/09/18 [Duoneb] Loperamide HCl [Loperamide] 2 mg PO PRN PRN 05/09/18 Fluticasone/Salmeterol [Advair 1 puff INHALATION BID 06/04/18 500/50 Mcg Diskus] Aspirin [Aspirin, Baby] 81 mg PO DAILY@0800 07/20/18 Diltiazem [Cardizem] 60 mg PO BID 07/20/18 Metformin HCl [Glucophage] 500 mg PO BIDCM 07/20/18 Metoprolol Tartrate [Lopressor 50 mg PO BID 07/20/18 (beta katty)] Surgical History: Surgical History (Last Updated 05/26/18 @ 10:46 by Sofia Allen) History of arthroplasty of right hip Z96.641 History of back surgery Z98.890 Lumbar Disc History of left hip replacement Z96.642 History of total bilateral knee replacement Z96.653 History of hysterectomy Z90.710 History of tonsillectomy Z90.89 Surgical History: hysterectomy, total hip arthroplasty, - - Fractured femur, bilateral knee surgeries and bilateral hip surgeries Psychiatric History: No pertinent psych hx Smoking Status: Never smoker - *Family History Maternal Family History: Family History (Last Updated 05/26/18 @ 10:48 by Sofia Allen) Mother Diabetes Brother Atrial fibrillation Brother Diabetes Sister Diabetes History Items: No pertinent history Paternal Family History: Family History (Last Updated 05/26/18 @ 10:48 by Sofia Allen) Mother Diabetes Brother Atrial fibrillation Brother Diabetes Sister Diabetes History Items: No pertinent history Review of Systems Constitutional: Denies: Chills, Fever Cardiovascular: Denies: Chest Pain Gastrointestinal: Denies: Abdominal Pain, Nausea, Vomiting Patient Problems: Active and Suspected Problems (Last Reviewed 03/01/18 @ 13:10 by Victoria Fu) Large bowel perforation (Acute) Septic shock (Acute) - Physical Exam General: Alert, Cooperative, No apparent distress Cardiovascular: Regular rate Abdomen: Soft, Distended - mild, Tender - Diffusely tender may be more so in the upper abdomen, some voluntary guarding, no rebound, - - Previous well- healed lower midline incision Extremities: No clubbing, No cyanosis, Edema - mild Skin: No rashes Neurological: Slurred Speech - Secondary to previous stroke 2 years ago Psych/Mental Status: Appropriate Vital Signs Temp Pulse Resp BP Pulse Ox 98.7 F 81 20 H 103/58 L 98 07/20/18 08:50 07/20/18 09:12 07/20/18 09:12 07/20/18 09:12 07/20/18 09:12 Oxygen Flow Rate (L/min) 2 Oxygen Delivery Method Nasal Cannula Weight: 174 lb 13.225 oz Body Mass Index (BMI) 28.2 Laboratory Tests Past 24 Hrs 07/20/18 07/20/18 07/20/18 08:00 08:00 08:00 WBC 8.1 RBC 4.43 Hgb 13.9 Hct 42.8 MCV 96.6 MCH 31.4 MCHC 32.5 RDW 14.2 RDW Differential 50.1 H Plt Count 298 MPV 8.9 Immature Gran % (Auto) 0.400 Neut % (Auto) 85.9 H Lymph % (Auto) 6.2 L Lawrence % (Auto) 7.3 Eos % (Auto) 0.0 Baso % (Auto) 0.2 Absolute Neuts (auto) 7.0 Absolute Lymphs (auto) 0.50 L Total Counted Not Reportable Differential Comment COMMENT PT 13.4 INR 1.0 APTT 23.9 L Specimen Type VBG pH VBG pO2 VBG O2 Sat (Calc) VBG O2 Content VBG Base Excess POC Mix VBG pCO2 Pt Tmp O2 Delivery Device Blood Gas Notified Whom Blood Gas Notified Time Sodium 139 Potassium 4.9 Chloride 99 Carbon Dioxide 25.0 Anion Gap 15 BUN 27 H Creatinine 2.35 H Estim Creat Clear Calc 17.58 Est GFR (MDRD) Af Amer 26 L Est GFR (MDRD) Non-Af 21 L BUN/Creatinine Ratio 11.5 Glucose 222 H Lactic Acid Calcium 9.4 Total Bilirubin 0.70 AST 18 ALT 15 Alkaline Phosphatase 101 Troponin I < 0.015 Total Protein 6.6 Albumin 3.0 L Globulin 3.6 Albumin/Globulin Ratio 0.8 L Urine Color Urine Clarity Urine pH Ur Specific [place] Urine Protein Urine Glucose (UA) Urine Ketones Urine Occult Blood Urine Nitrite Urine Bilirubin Urine Urobilinogen Ur Leukocyte Esterase Urine RBC Urine WBC Ur Squamous Epith Cells Urine Bacteria Urine Mucus 07/20/18 07/20/18 07/20/18 08:00 08:19 08:25 WBC RBC Hgb Hct MCV MCH MCHC RDW RDW Differential Plt Count MPV Immature Gran % (Auto) Neut % (Auto) Lymph % (Auto) Lawrence % (Auto) Eos % (Auto) Baso % (Auto) Absolute Neuts (auto) Absolute Lymphs (auto) Total Counted Differential Comment PT INR APTT Specimen Type MICHAEL VBG pH 7.36 VBG pO2 23 L VBG O2 Sat (Calc) 37 L VBG O2 Content 28 VBG Base Excess 1 POC Mix VBG pCO2 Pt Tmp 47.1 O2 Delivery Device Room Air Blood Gas Notified Whom ED Blood Gas Notified Time 818 Sodium Potassium Chloride Carbon Dioxide Anion Gap BUN Creatinine Estim Creat Clear Calc Est GFR (MDRD) Af Amer Est GFR (MDRD) Non-Af BUN/Creatinine Ratio Glucose Lactic Acid 5.9 H* Calcium Total Bilirubin AST ALT Alkaline Phosphatase Troponin I Total Protein Albumin Globulin Albumin/Globulin Ratio Urine Color Yellow Urine Clarity Cloudy Urine pH 5.0 Ur Specific [place] 1.015 Urine Protein 100 H Urine Glucose (UA) Normal Urine Ketones 5 H Urine Occult Blood 50 H Urine Nitrite Negative Urine Bilirubin 1 H Urine Urobilinogen 1 H Ur Leukocyte Esterase 500 H Urine RBC 0-5 SEEN Urine WBC >100 SEEN Ur Squamous Epith Cells 0-5 SEEN Urine Bacteria 4+ Urine Mucus RARE Assessment/Plan All Active Problems (Last Reviewed 03/01/18 @ 13:10 by Victoria Fu) Large bowel perforation (Acute) Septic shock (Acute) DEMETRA (acute kidney injury) (Acute) Pneumococcal pneumonia (Acute) SVT (supraventricular tachycardia) (Acute) 82-year-old female with pneumoperitoneum, hypotension, history of COPD, diabetes 1. Discussed with patient and her son and daughter CT abdomen pelvis did show some inflammation near the left colon likely site of perforation causing the free air. Patient has been hypotensive in the ER has been getting boluses of fluid which initially responds and then goes back to being hypotensive again. The ER is pending and a central line currently. The patient and her son and daughter are agreeable to surgery. Discussed would be exploratory laparoscopic , possible laparotomy, possible bowel resection, possible stoma. Discussed with the family that patient may be on the ventilator after surgery and would definitely be in the ICU. Also discussed that likely she would have stoma after surgery due to all the hard stool that she has in the right side of her colon re-anastomosis may cause possible leak due to the hard stool in right colon. Patient and her family are agreeable to full code during the surgery; however normally it seems that she is DNR CCA. Patient family had no further questions at this time. Patient did receive clindamycin 900 as well as aztreonam due to patient allergies. ER physician did talk to Dr. Lemon who is aware of the patient and she would be going to the ICU. Addendum: Patient was started on Levophed 5 mcg. Discussed with family and patient that I would not be doing laparoscopy and would just proceed with exploratory laparotomy to hopefully limit her time under general anesthesia. Also reviewed risks including not limited to bleeding, infection, injury to another organ, patient remains on Levophed she may have issues with perfusion to her stoma, patient may continue to be intubated after surgery, and anesthesia. Aurora Young M.D. Pager: [phone] [facility] [address] [place] [address] [address] [place] [address] Office: [phone]
--- NOTE | 2018-07-20 10:04 | NURSING ---
POSSIBLE SMALL BOWEL RESECTION, POSSIBLE STOMA, EXPLORATORY LAPAROSCOPY, SURGERY ROBOTHEM
--- NOTE | 2018-07-20 10:26 | RAD_ITS ---
STUDY: X-RAY CHEST REASON FOR EXAM: Female, 82 years old. Line placement. TECHNIQUE: Single AP portable view of the chest. COMPARISON: Comparison is made with prior study done earlier in the day. FINDINGS: A right-sided internal jugular venous catheter has been placed. The tip is in the right atrium. EKG like to proceed. Increased linear markings at the lung bases suggestive of either scarring and/or atelectasis. There is no demonstrated pleural abnormality. There is mild cardiac enlargement. Normal mediastinum and aruna. Normal visualized pulmonary arteries. There is atherosclerotic calcification of the aortic arch with tortuosity. Normal visualized thoracic spine. There is degenerative osteoarthritis of the bilateral shoulders. There is no demonstrated abnormality of the visualized soft tissue structures of the upper abdomen. RAD/CXR for Line Placement IMPRESSION: The tip of the right internal jugular venous catheter is in the right atrium. Increased markings at the lung bases suggestive bibasilar atelectasis and/or scarring. Electronically Signed: Jourdan De La Fuente MD at 12:15 EDT Tel [phone], Service support ,
--- NOTE | 2018-07-20 10:30 | COL_PTH ---
PATIENT: Catie HUNTER LOC: PCU U#:[id number] AGE/SX: 82/F ROOM: [facility] RE07/20/[address]: Dr. Kasandra Almendarez MD : [id number] BED: 1 DIS: 08/06/2018 SPEC #: [id number] RECD: 07/21/18 10:06 STATUS: DOUGLAS RETricia #: [id number] DAREN: 07/20/18 10:[address]: Aurora Young DEPT: SURGICAL PATHOLOGY RECD BY: Joseph Gay ENTERED: 07/21/18 12:19 SP TYPE: COLON OTHR DR: MD Dr. Juan Jose Lopez MD Dr. John K Miller, MD Tissues: Colon, NOS Procedures: Surgery Specimen Level V HEADER OPERATION: Exploratory laparotomy, colon resection, colostomy creation PRE-OP DIAGNOSIS: Pneumoperitoneum TISSUE SUBMITTED: Left colon, omentum, suture marking distal MICROSCOPIC DIAGNOSIS Left colon and omentum, colectomy: Segment of colon with area of perforation with associated hemorrhage and inflammation. Omentum with focal mild congestion. GERALDINE:mac 07/23/18 MICROSCOPIC DESCRIPTION Slides are reviewed. GROSS DESCRIPTION Received in fixative is one container labeled with the patient's name and designated left colon and omentum, suture marking distal. The specimen consists of a segment of colon with attached pericolonic adipose tissue measuring 25 cm in length. Both resection margins are stapled. The distal margin is identified by a suture. 7 cm away from the distal resection margin an area of perforation is noted measuring 4 x 3 cm. No other mucosal lesion is identified. The lumen is filled with solid fecal material. Also present in the container is a piece of adipose tissue consistent with omentum measuring 15 x 8 x 2 cm. Sections of omentum do not reveal any mass lesion. Sections will be submitted after overnight fixation. / GERALDINE:mac 07/21/18 Sections of pericolonic adipose tissue do not reveal any obviously enlarged lymph node. Scraper Tender sections are submitted in six cassettes as follows: 1 ? omentum, 2 ? proximal and distal resection margin, distal resection margin is inked black, 3 & 4 ? area of perforation, 5 - player services representative sections from the other area, 6 ? pericolonic adipose tissue. / GERALDINE:mac 07/22/18 TC:5 CPT: 61548
[2018-07-20 11:05] LABS: Bedside Glucose 212 mg/dL (70-110)
[2018-07-20 12:12] LABS: Reflex Lactate? Y
--- NOTE | 2018-07-20 13:43 | PCM.OPRPT ---
Report of Operation Date of Procedure: 07/27/18 Pre-Operative Diagnosis: Pneumoperitoneum Post-Operative Diagnosis: Perforated descending colon near splenic flexure Surgery/Procedure Performed:: Exploratory laparotomy, mobilization of the splenic flexure, left colon resection, end colostomy hat and cap opener: Franklyn Dubois hat and cap opener: Deya Carrillo Type of Anesthesia:: General/Supplemental Anesthesiologist: Vasquez Barlow Special Medications: Patient was given clindamycin 900 mg IV and aztreonam 1 gram IV in the ER for perforated bowel prior to surgery Specimen's removed: Left colon and omentum Drains: sims Estimated Blood Loss (mL): <20 cc Fluids Replaced: 1999 Description of Procedure: 82-year-old female was found to have pneumoperitoneum likely source sigmoid colon. Patient was given clindamycin 900 mg IV ?1 and aztreonam 1 g IV ?1 prior to surgery in the ER for perforated bowel. She is also given multiple fluid boluses and did need to start on Levophed 5 mcg/min. Expiratory laparotomy possible bowel resection possible stoma was elected and discussed with the patient and her family who agreed to proceed. Patient was brought to the operating room and placed supine on the operating room table. General anesthesia was induced after timeout was completed verifying correct patient, site, positioning, procedure, and special equipment. The abdomen was prepped draped in usual sterile fashion. A midline incision was made with the 10 blade scalpel and deepened with electrocautery. Entry into the abdomen did note tannish purulent fluid. This was sent for culture. On further exploration of abdomen, there was noted to be perforation of the left colon with a large ball of feces sitting in the left posterior abdomen. This was removed along with several other balls of feces milk from her transverse/proximal descending colon. The colon was mobilized along the white line of [place] laterally and the splenic flexure was also mobilized using the LigaSure impact. TEJ 75 was used to come across the bowel distally and proximally at mid transverse. The LigaSure impact again was used to come across the omentum and mesentery of the left colon. The left colon was sent to pathology as specimen. The abdomen was irrigated with 5 L of warmed normal saline. Hemostasis was assured. Left lower quadrant ostomy site formed using the cut on the Bovie form [place] and then using [employer]'s to go down to the fascia which was incised with electrocautery and the rectus muscle was split and the peritoneum was also incised under direct visualization. The mid transverse colon was brought through the left lower quadrant ostomy site. The mid transverse colon was easily able to be brought to the ostomy site without tension. Prior to closing all gowns and gloves were changed. The midline fascia was closed with 1-0 PDS suture. The wound was again irrigated. The subcutaneous was bought together with a few interrupted 2-0 Vicryl sutures. The skin was closed loosely with yuriy and Betadine mamadou. 4 x 4 gauzes were placed over the top with tape. Next stoma was secured to the fascia with 3-0 Vicryl interrupted sutures ?2. The colostomy was matured with with 3-0 Vicryl sutures. Additional ball of feces was removed from the colostomy. The colostomy site was dressed with Vaseline gauze and appliance will be placed on the patient's in the ICU. Patient remained extubated, on Levophed at 10 mcg/min and was transferred to the ICU. - Complications none
--- NOTE | 2018-07-20 14:23 | RAD_ITS ---
STUDY: X-RAY CHEST REASON FOR EXAM: Female, 82 years old. Endotracheal tube and orogastric tube placement. TECHNIQUE: Single AP portable view of the chest. COMPARISON: Comparison is made with prior examination done earlier today at 10:46 AM. FINDINGS: The tip of the endotracheal tube is at 3.3 cm proximal to the shena. An oral gastric tube is seen with the tip in the body of the stomach. A right-sided internal jugular venous catheter is seen with the tip in the right atrium. EKG electrodes are seen. Increased markings at the lung bases likely worse on the left side in keeping with bibasilar atelectasis. Blunting of left costophrenic angle. There is borderline cardiomegaly. Normal mediastinum and aruna. Normal visualized pulmonary arteries. There is atherosclerotic calcification of the aortic arch with tortuosity. There are diffuse degenerative changes of the visualized thoracic spine. There is degenerative osteoarthritis of the bilateral shoulders. There is no demonstrated abnormality of the visualized soft tissue structures of the upper abdomen. RAD/Chest 1 View (Portable) IMPRESSION: All the side port tubes are in good position. Stable increased markings at the lung bases suggesting bibasilar atelectasis. Electronically Signed: Jourdan De La Fuente MD at 14:55 EDT Tel [phone], Service support ,
--- NOTE | 2018-07-20 14:31 | NURSING ---
was asked to place an ostomy appliance over the newly created stoma. pt is s/p exploratory laparotomy, left colon resection with end colostomy for a perforated descending colon near the splenic flexure. removed dressing over stoma. stoma is dark red in color with some bleeding noted. stoma sits flush with skin and measures approx. 2 and is oval in shape. peristomal skin is intact. stoma is near the midline incision so this nurse did have to trim the flange to prevent placing over the incision. applied a 2 piece flat Merkel appliance. pt is currently intubated. will continue to monitor.
[2018-07-20] MEDS: 0.9% Normal Saline 1,000 ML 150 ML IV (14:46)
[2018-07-20 15:04] LABS: Hematocrit 38.3 % (37-47); Hemoglobin 12.2 g/dl (12.0-15.0); Mean Corp Hgb Conc 31.9 g/gl (32-36); Mean Corpuscular Hgb 31.3 pg (27.0-32.0); Mean Corpuscular Volume 98.2 fL (81-99); Mean Platelet Vol. 8.8 fl (6.2-12.0); Platelet Count 228 K/mm3 (150-450); RBC Distribution Width CV 14.6 % (11.6-14.6); White Blood Count 4.8 K/mm3 (4.4-11.0)
--- NOTE | 2018-07-20 15:04 | PCM.CON.CC ---
Problem List (1) Large bowel perforation Status: Acute (2) Septic shock Status: Acute (3) DEMETRA (acute kidney injury) Status: Acute (4) SVT (supraventricular tachycardia) Status: Acute (5) Takotsubo cardiomyopathy Status: Chronic (6) Nonrheumatic tricuspid (valve) insufficiency Status: Chronic (7) Hypothyroidism Status: Chronic Qualifiers: (8) COPD (chronic obstructive pulmonary disease) Status: Chronic Qualifiers: (9) Hyperlipidemia Status: Chronic Qualifiers: Hyperlipidemia type: pure hypercholesterolemia Qualified Code(s): E78.00 - Pure hypercholesterolemia, unspecified; E78.0 - Pure hypercholesterolemia (10) Type 2 diabetes mellitus Status: Chronic Reason for Consult Date of Consultation: 07/20/18 Reason for Consultation: Septic shock, acute respiratory failure History of Present Illness: The patient is a 82 year old F, with past medical history listed below, who presented to [facility] on 07/20/2018 secondary to confusion and not feeling well from a [facility]. Patient reportedly had reported feeling worse over the last 24-48 hours. On presentation to the emergency room, patient was noted to be 87/58 without significant hypoxia. Patient does have a baseline facial droop on the right according to the son, but chest x-ray showed free air under the right hemidiaphragm. Initial lactate was noted to be 5.9. Dr. Young was made aware into the patient emergently to the OR. Patient was treated with clindamycin and azactam. During the OR, patient reportedly was hypotensive as measured by art line. She was initiated on Levophed therapy, but reportedly tolerated the surgery well. Personally discussed with Dr. Young. Patient reportedly tolerated the procedure well. A large hole was noted in the splenic flexure with balls of stool noted throughout the abdomen. Patient was given a colostomy and partial colectomy. Patient was transferred to the intensive care unit with mechanical ventilation. Patient was not attempted at extubation while in the PACU. Able to obtain any review of systems secondary to intubation. Past Medical History Past Medical History (Chronic Problems): Chronic Problems (Last Reviewed 03/01/18 @ 13:10 by Victoria Fu) Takotsubo cardiomyopathy (Chronic) Nonrheumatic tricuspid (valve) insufficiency (Chronic) Atherosclerotic heart disease of [place] coronary artery without angina pectoris (Chronic) Mild Hypothyroidism (Chronic) COPD (chronic obstructive pulmonary disease) (Chronic) Hyperlipidemia (Chronic) Type 2 diabetes mellitus (Chronic) Medical History: Medical History (Last Reviewed 03/01/18 @ 13:10 by Victoria Fu) Takotsubo cardiomyopathy (Chronic) I51.81 Nonrheumatic tricuspid (valve) insufficiency (Chronic) I36.1 Atherosclerotic heart disease of [place] coronary artery without angina pectoris (Chronic) I25.10 Mild Hypothyroidism (Chronic) E03.9 COPD (chronic obstructive pulmonary disease) (Chronic) J44.9 Hyperlipidemia (Chronic) E78.5 Type 2 diabetes mellitus (Chronic) E11.9 Anemia D64.9 CVA (cerebral vascular accident) I63.9 Depression F32.9 Osteoarthritis M19.90 Allergies codeine Allergy (Severe, Verified 07/20/18 08:52) HEART ATTACK levofloxacin [From Levaquin] Allergy (Severe, Verified 07/20/18 08:52) Anaphylaxis Sulfa (Sulfonamide Antibiotics) Allergy (Unknown, Verified 07/20/18 08:52) Unknown adhesive tape Allergy (Verified 07/20/18 08:52) Other citalopram Allergy (Verified 07/20/18 08:52) Unknown Latex, Natural Rubber Allergy (Verified 07/20/18 08:52) Rash Penicillins Allergy (Verified 07/20/18 08:52) Rash acetaminophen [From Vicodin] Adverse Reaction (Verified 07/20/18 08:52) Chest tightness hydrocodone bitartrate [From Vicodin] Adverse Reaction (Verified 07/20/18 08:52) Chest tightness Home Medications: Ambulatory Orders Medication Instructions Recorded Levothyroxine [Synthroid] 25 mcg PO DAILY@0600 05/23/16 Meloxicam [Mobic] 15 mg PO QODAY 05/23/16 Multivit with Calcium,Iron,Min 1 tab PO DAILY 05/23/16 [Multiple Vitamins For Women] Trazodone HCl 50 mg PO QHS 05/23/16 Ubidecarenone [Coenzyme Q-10] 200 mg PO DAILY 03/26/17 ergocalciferol (vitamin D2) 50,000 50,000 unit PO QMONTH 01/15/18 unit capsule Atorvastatin Calcium [Lipitor] 20 mg PO QHS 03/01/18 ondansetron HCl 4 mg tablet 4 mg PO Q8H PRN tab 03/01/18 oxybutynin chloride ER 10 mg 10 mg PO QHS 03/01/18 tablet,extended release 24 hr Hydroxyzine HCl 25 mg PO DAILY PRN 03/03/18 Ipratropium/Albuterol Sulfate 3 ml INHALATION Q4H.RT PRN 05/09/18 [Duoneb] Loperamide HCl [Loperamide] 2 mg PO PRN PRN 05/09/18 Fluticasone/Salmeterol [Advair 1 puff INHALATION BID 06/04/18 500/50 Mcg Diskus] Aspirin [Aspirin, Baby] 81 mg PO DAILY@0800 07/20/18 Diltiazem [Cardizem] 60 mg PO BID 07/20/18 Metformin HCl [Glucophage] 500 mg PO BIDCM 07/20/18 Metoprolol Tartrate [Lopressor 50 mg PO BID 07/20/18 (beta katty)] Surgical History: Surgical History (Last Updated 05/26/18 @ 10:46 by Sofia Allen) History of arthroplasty of right hip Z96.641 History of back surgery Z98.890 Lumbar Disc History of left hip replacement Z96.642 History of total bilateral knee replacement Z96.653 History of hysterectomy Z90.710 History of tonsillectomy Z90.89 Surgical History: hysterectomy, total hip arthroplasty, - - Fractured femur, bilateral knee surgeries and bilateral hip surgeries Psychiatric History: No pertinent psych hx Smoking Status: Never smoker - *Family History Maternal Family History: Family History (Last Updated 05/26/18 @ 10:48 by Sofia Allen) Mother Diabetes Brother Atrial fibrillation Brother Diabetes Sister Diabetes History Items: No pertinent history Paternal Family History: Family History (Last Updated 05/26/18 @ 10:48 by Sofia Allen) Mother Diabetes Brother Atrial fibrillation Brother Diabetes Sister Diabetes History Items: No pertinent history Review of Systems Unable to obtain accurate/complete ROS d/t: Intubated and sedated Patient Problems: Active and Suspected Problems (Last Reviewed 03/01/18 @ 13:10 by Victoria Fu) Large bowel perforation (Acute) Septic shock (Acute) Objective: All imaging was personally reviewed. CT scan of the abdomen did show free intraperitoneal air with retroperitoneal air. Sigmoid diverticulosis was noted. Patient did have bilateral atelectasis. Original chest x-ray did show underlying atelectasis at the bases with free air. Chest x-ray while in the intensive care unit showed appropriate placement of endotracheal tube. - Physical Exam General: - - Intubated and sedated. Fair vent synchrony noted. Appears stated age. HEENT: Atraumatic, PERRLA, EOMI, Normocephalic, - - No scleral icterus or injection noted. Oral: No Gingival or Mucosal Lesions/ Ulcerations, Dry Mucosa Neck: Supple, No JVD, No Nodes, Trachea Midline Lungs: No rhonchi, No wheeze, No rales, Diminished, - - Symmetric expansion. No dullness to percussion. Cardiovascular: Regular rate, Regular Rhythm, Normal S1, Normal S2, No murmurs, No rub noted, No Gallop Abdomen: Soft, Bowel Sounds Not Present, Distended - Slightly, Obese, - - Ostomy is clean, dry and intact. [place] mucosa noted. Extremities: No clubbing, No cyanosis, Capillary Refill Less than 3 Seconds, Edema - Trace peripheral edema Skin: Incision - Clean, dry and intact Musculoskeletal: No Tenderness to Palpation of Joints or Extremities Lymphatic: No Cervical, Supraclavicular, or Inguinal Adenopathy Neurological: - - Patient with paralytic on board during initial evaluation Psych/Mental Status: Flat Affect Vital Signs Temp Pulse Resp BP Pulse Ox 36.3 C L 88 12 104/67 100 07/20/18 11:04 07/20/18 14:38 07/20/18 14:38 07/20/18 11:04 07/20/18 14:38 Oxygen Flow Rate (L/min) 4 Oxygen Delivery Method Nasal Cannula Weight: 79.3 kg Body Mass Index (BMI) 28.2 Intake and Output for Last 24 Hours 07/18/18 07/19/18 07/20/18 23:59 23:59 23:59 Output Total 100 / 100 Balance -100 / -100 Laboratory Tests 07/20/18 07/20/18 07/20/18 08:00 08:00 08:00 WBC 8.1 RBC 4.43 Hgb 13.9 Hct 42.8 MCV 96.6 MCH 31.4 MCHC 32.5 RDW 14.2 RDW Differential 50.1 H Plt Count 298 MPV 8.9 Immature Gran % (Auto) 0.400 Neut % (Auto) 85.9 H Lymph % (Auto) 6.2 L [place] % (Auto) 7.3 Eos % (Auto) 0.0 Baso % (Auto) 0.2 Absolute Neuts (auto) 7.0 Absolute Lymphs (auto) 0.50 L Total Counted Not Reportable Differential Comment COMMENT PT 13.4 INR 1.0 APTT 23.9 L Specimen Type VBG pH VBG pO2 VBG O2 Sat (Calc) VBG O2 Content VBG Base Excess POC Mix VBG pCO2 Pt Tmp O2 Delivery Device Blood Gas Notified Whom Blood Gas Notified Time Sodium 139 Potassium 4.9 Chloride 99 Carbon Dioxide 25.0 Anion Gap 15 BUN 27 H Creatinine 2.35 H Estim Creat Clear Calc 17.58 Est GFR (MDRD) Af Amer 26 L Est GFR (MDRD) Non-Af 21 L BUN/Creatinine Ratio 11.5 Glucose 222 H Lactic Acid Calcium 9.4 Total Bilirubin 0.70 AST 18 ALT 15 Alkaline Phosphatase 101 Troponin I < 0.015 Total Protein 6.6 Albumin 3.0 L Globulin 3.6 Albumin/Globulin Ratio 0.8 L Urine Color Urine Clarity Urine pH Ur Specific Stanley Urine Protein Urine Glucose (UA) Urine Ketones Urine Occult Blood Urine Nitrite Urine Bilirubin Urine Urobilinogen Ur Leukocyte Esterase Urine RBC Urine WBC Ur Squamous Epith Cells Urine Bacteria Urine Mucus POC Glucose 07/20/18 07/20/18 07/20/18 08:00 08:19 08:25 WBC RBC Hgb Hct MCV MCH MCHC RDW RDW Differential Plt Count MPV Immature Gran % (Auto) Neut % (Auto) Lymph % (Auto) [place] % (Auto) Eos % (Auto) Baso % (Auto) Absolute Neuts (auto) Absolute Lymphs (auto) Total Counted Differential Comment PT INR APTT Specimen Type MICHAEL VBG pH 7.36 VBG pO2 23 L VBG O2 Sat (Calc) 37 L VBG O2 Content 28 VBG Base Excess 1 POC Mix VBG pCO2 Pt Tmp 47.1 O2 Delivery Device Room Air Blood Gas Notified Whom ED Blood Gas Notified Time 818 Sodium Potassium Chloride Carbon Dioxide Anion Gap BUN Creatinine Estim Creat Clear Calc Est GFR (MDRD) Af Amer Est GFR (MDRD) Non-Af BUN/Creatinine Ratio Glucose Lactic Acid 5.9 H* Calcium Total Bilirubin AST ALT Alkaline Phosphatase Troponin I Total Protein Albumin Globulin Albumin/Globulin Ratio Urine Color Yellow Urine Clarity Cloudy Urine pH 5.0 Ur Specific Stanley 1.015 Urine Protein 100 H Urine Glucose (UA) Normal Urine Ketones 5 H Urine Occult Blood 50 H Urine Nitrite Negative Urine Bilirubin 1 H Urine Urobilinogen 1 H Ur Leukocyte Esterase 500 H Urine RBC 0-5 SEEN Urine WBC >100 SEEN Ur Squamous Epith Cells 0-5 SEEN Urine Bacteria 4+ Urine Mucus RARE POC Glucose 07/20/18 07/20/18 11:02 14:50 WBC 4.8 RBC 3.90 L Hgb 12.2 Hct 38.3 MCV 98.2 MCH 31.3 MCHC 31.9 L RDW 14.6 RDW Differential 52.0 H Plt Count 228 MPV 8.8 Immature Gran % (Auto) Neut % (Auto) Lymph % (Auto) [place] % (Auto) Eos % (Auto) Baso % (Auto) Absolute Neuts (auto) Absolute Lymphs (auto) Total Counted Differential Comment PT INR APTT Specimen Type VBG pH VBG pO2 VBG O2 Sat (Calc) VBG O2 Content VBG Base Excess POC Mix VBG pCO2 Pt Tmp O2 Delivery Device Blood Gas Notified Whom Blood Gas Notified Time Sodium Potassium Chloride Carbon Dioxide Anion Gap BUN Creatinine Estim Creat Clear Calc Est GFR (MDRD) Af Amer Est GFR (MDRD) Non-Af BUN/Creatinine Ratio Glucose Lactic Acid Calcium Total Bilirubin AST ALT Alkaline Phosphatase Troponin I Total Protein Albumin Globulin Albumin/Globulin Ratio Urine Color Urine Clarity Urine pH Ur Specific [place] Urine Protein Urine Glucose (UA) Urine Ketones Urine Occult Blood Urine Nitrite Urine Bilirubin Urine Urobilinogen Ur Leukocyte Esterase Urine RBC Urine WBC Ur Squamous Epith Cells Urine Bacteria Urine Mucus POC Glucose 212 H Clinical Impression(s) from Imaging Studies Chest X-Ray 07/20/18 07:55 IMPRESSION: Findings suggestive of underlying atelectasis and/or scarring at the lung bases. Questionable free air beneath the right hemidiaphragm. A right side up decubitus view is recommended for further evaluation. Electronically Signed: Jourdan De La Fuente MD at 8:36 EDT Tel [phone], Service support , Chest X-Ray 07/20/18 08:30 IMPRESSION: Free intraperitoneal air. The referring physician was notified. Electronically Signed: Jourdan De La Fuente MD at 9:15 EDT Tel [phone], Service support , Abdomen/Pelvis CT 07/20/18 08:55 IMPRESSION: Free intraperitoneal air as well as retroperitoneal air. Sigmoid diverticulosis and possible perforation of the sigmoid colon Bibasilar atelectasis. Stable left renal cyst. Electronically Signed: Jourdan De La Fuente MD at 9:38 EDT Tel [phone], Service support , Chest X-Ray 07/20/18 10:26 IMPRESSION: The tip of the right internal jugular venous catheter is in the right atrium. Increased markings at the lung bases suggestive bibasilar atelectasis and/or scarring. Electronically Signed: Jourdan De La Fuente MD at 12:15 EDT Tel [phone], Service support , Chest X-Ray 07/20/18 14:23 IMPRESSION: All the side port tubes are in good position. Stable increased markings at the lung bases suggesting bibasilar atelectasis. Electronically Signed: Jourdan De La Fuente MD at 14:55 EDT Tel [phone], Service support , Assessment/Plan Active and Suspected Problems (Last Reviewed 03/01/18 @ 13:10 by Victoria Fu) Large bowel perforation (Acute) Septic shock (Acute) RECOMMENDATIONS: 1. Initiate propofol and fentanyl sedation 2. Spontaneous breathing and awakening trials per protocol 3. Continue pressors as necessary 4. Add empiric vancomycin given history of MRSA 5. Hold on any tube feeds for now 6. Initiate Pulmicort for therapeutic substitution of Advair IMPRESSIONS: 1. Septic shock secondary to bowel perforation Patient currently on Zosyn therapy. Will monitor for reported rash and can treat symptomatically with steroids if necessary. Patient should have vancomycin added given history of MRSA. Anticipate continued decompensation over the next 24-48 hours given stool found in the abdomen. Patient currently is a full code, but reportedly was a DNR Comfort Care arrest at the chcf prior to acute situation. Area of the lesion is suggestive of ischemic etiology. 2. Acute hypoxic respiratory failure/history of COPD Patient does have a history of COPD in the past. Will treat with bronchodilators. Hold off on steroid therapy. Chest x-ray shows only areas of atelectasis, which were likely secondary to abdominal pain. We will continue with spontaneous awakening and breathing trials per protocol. Fentanyl and propofol for sedation. Initiate Pulmicort therapy for substitution of baseline Advair 3. Diabetes mellitus Patient will be n.p.o. given acute surgical intervention. Following with sliding scale insulin is likely appropriate at this time. Not recommend continuation of metformin given patient's current renal function. 4. Acute on chronic kidney disease stage III Likely secondary to septic shock. Patient has been fluid resuscitated. Continue to support blood pressure. We will continue to monitor and replace electrolytes as necessary. 5. History of CVA/hyperlipidemia/hypothyroidism/osteoarthritis/multiple surgeries/multiple allergies/advanced age Complicates care, management, recovery and prognosis. Patient does have a right facial droop at baseline. Hold medications for now. Possibly reinitiate Synthroid once patient has bowel function. Hold baseline hypertensive medications. TIME: 45 minutes critical care time spent addressing patient's septic shock, acute respiratory failure, diabetes mellitus, acute kidney injury, review of all data and collaboration with care team (2:30 PM to 3:30 PM) Code Visit 9xxxx: [id number] Critical care first hour
[2018-07-20 15:05] LABS: Scan Indicated on CBC? Y/N NO
--- NOTE | 2018-07-20 15:07 | HP.PCM_ITS ---
Problem List (1) Large bowel perforation Status: Acute (2) Septic shock Status: Acute (3) DEMETRA (acute kidney injury) Status: Acute (4) Takotsubo cardiomyopathy Status: Chronic (5) Nonrheumatic tricuspid (valve) insufficiency Status: Chronic (6) Atherosclerotic heart disease of [place] coronary artery without angina pectoris Status: Chronic Qualifiers: [place] vs. transplanted heart: [place] heart Comment: Mild (7) Hypothyroidism Status: Chronic Qualifiers: Hypothyroidism type: unspecified (8) COPD (chronic obstructive pulmonary disease) Status: Chronic Qualifiers: Emphysema type: unspecified (9) Hyperlipidemia Status: Chronic Qualifiers: Hyperlipidemia type: unspecified Qualified Code(s): E78.5 - Hyperlipidemia , unspecified (10) Type 2 diabetes mellitus Status: Chronic Qualifiers: Diabetes mellitus termite treater helper insulin use: without termite treater helper use Diabetes mellitus complication status: with unspecified complications Qualified Code(s) : E11.8 - Type 2 diabetes mellitus with unspecified complications History of Present Illness Date of Admission: 07/20/18 Chief Complaint: Not feeling well, confusion The patient is a 82 year old F with multiple comorbidities significant for Takusubo cardiomyopathy with SVTs, hypertension, type II DM, resident in a half-way who was brought to the emergency room with complaints of confusion and not feeling well as well as being diaphoretic Patient was seen in the emergency room and found to be hypotensive, pressure was 87/58, heart rate was 89, respiratory rate of 16, temperature 96.9F. Admitting blood work showed RBC count of 8.1, Hb 13.9, platelets 298, INR 1.0, BMP shows sodium of 139, potassium 4.9, chloride 99, bicarbonate 25, BUN 27, creatinine 2.35, baseline creatinine is between 1.1-1.2. Lactic acid was 5.9. Admitting chest x-ray was suggestive of underlying atelectasis and scarring at the lung bases, free air under the right hemidiaphragm. Abdominal and pelvic CT shows free intraperitoneal air as well as retroperitoneal air with sigmoid diverticulosis and possible perforation of the sigmoid colon. Patient was sent into the OR, underwent exploratory laparotomy with left colon resection and end colostomy, findings included a perforated descending colon near splenic flexure. She was subsequently sent to the ICU for further management. At time of being examined in the ICU, patient still under sedation, vital signs stable, off levophed. Past Medical History Past Medical History (Chronic Problems): Chronic Problems (Last Reviewed 03/01/18 @ 13:10 by Victoria Fu) Takotsubo cardiomyopathy (Chronic) Nonrheumatic tricuspid (valve) insufficiency (Chronic) Atherosclerotic heart disease of [place] coronary artery without angina pectoris (Chronic) Mild Hypothyroidism (Chronic) COPD (chronic obstructive pulmonary disease) (Chronic) Hyperlipidemia (Chronic) Type 2 diabetes mellitus (Chronic) Medical History: Medical History (Last Reviewed 03/01/18 @ 13:10 by Victoria Fu) Takotsubo cardiomyopathy (Chronic) I51.81 Nonrheumatic tricuspid (valve) insufficiency (Chronic) I36.1 Atherosclerotic heart disease of [place] coronary artery without angina pectoris (Chronic) I25.10 Mild Hypothyroidism (Chronic) E03.9 COPD (chronic obstructive pulmonary disease) (Chronic) J44.9 Hyperlipidemia (Chronic) E78.5 Type 2 diabetes mellitus (Chronic) E11.9 Anemia D64.9 CVA (cerebral vascular accident) I63.9 Depression F32.9 Osteoarthritis M19.90 Allergies codeine Allergy (Severe, Verified 07/20/18 08:52) HEART ATTACK levofloxacin [From Levaquin] Allergy (Severe, Verified 07/20/18 08:52) Anaphylaxis Sulfa (Sulfonamide Antibiotics) Allergy (Unknown, Verified 07/20/18 08:52) Unknown adhesive tape Allergy (Verified 07/20/18 08:52) Other citalopram Allergy (Verified 07/20/18 08:52) Unknown Latex, Natural Rubber Allergy (Verified 07/20/18 08:52) Rash Penicillins Allergy (Verified 07/20/18 08:52) Rash acetaminophen [From Vicodin] Adverse Reaction (Verified 07/20/18 08:52) Chest tightness hydrocodone bitartrate [From Vicodin] Adverse Reaction (Verified 07/20/18 08:52) Chest tightness Home Medications: Ambulatory Orders Medication Instructions Recorded Levothyroxine [Synthroid] 25 mcg PO DAILY@0600 05/23/16 Meloxicam [Mobic] 15 mg PO QODAY 05/23/16 Multivit with Calcium,Iron,Min 1 tab PO DAILY 05/23/16 [Multiple Vitamins For Women] Trazodone HCl 50 mg PO QHS 05/23/16 Ubidecarenone [Coenzyme Q-10] 200 mg PO DAILY 05/25/17 ergocalciferol (vitamin D2) 50,000 50,000 unit PO QMONTH 01/15/18 unit capsule Atorvastatin Calcium [Lipitor] 20 mg PO QHS 03/01/18 ondansetron HCl 4 mg tablet 4 mg PO Q8H PRN tab 03/01/18 oxybutynin chloride ER 10 mg 10 mg PO QHS 03/01/18 tablet,extended release 24 hr Hydroxyzine HCl 25 mg PO DAILY PRN 03/03/18 Ipratropium/Albuterol Sulfate 3 ml INHALATION Q4H.RT PRN 05/09/18 [Duoneb] Loperamide HCl [Loperamide] 2 mg PO PRN PRN 05/09/18 Fluticasone/Salmeterol [Advair 1 puff INHALATION BID 06/04/18 500/50 Mcg Diskus] Aspirin [Aspirin, Baby] 81 mg PO DAILY@0800 07/20/18 Diltiazem [Cardizem] 60 mg PO BID 07/20/18 Metformin HCl [Glucophage] 500 mg PO BIDCM 07/20/18 Metoprolol Tartrate [Lopressor 50 mg PO BID 07/20/18 (beta katty)] Surgical History: Surgical History (Last Updated 05/26/18 @ 10:46 by Sofia Allen) History of arthroplasty of right hip Z96.641 History of back surgery Z98.890 Lumbar Disc History of left hip replacement Z96.642 History of total bilateral knee replacement Z96.653 History of hysterectomy Z90.710 History of tonsillectomy Z90.89 Surgical History: hysterectomy, total hip arthroplasty, - - Fractured femur, bilateral knee surgeries and bilateral hip surgeries Psychiatric History: No pertinent psych 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 Lives: [facility] Smoking Status: Never smoker Tobacco Use: Non-smoker Alcohol: None Drugs: None - *Family History Maternal Family History: Family History (Last Updated 05/26/18 @ 10:48 by Sofia Allen) Mother Diabetes Brother Atrial fibrillation Brother Diabetes Sister Diabetes History Items: Diabetes Paternal Family History: Family History (Last Updated 05/26/18 @ 10:48 by Sofia Allen) Mother Diabetes Brother Atrial fibrillation Brother Diabetes Sister Diabetes History Items: Diabetes, Heart Disease Review of Systems Unable to obtain accurate/complete ROS d/t: Patient is lethargic, sedated from surgery VTE Information - Inpt Only VTE Present on Admission: No VTE Pharm Prophylaxis ordered?: Yes Patient Problems: Active and Suspected Problems (Last Reviewed 03/01/18 @ 13:10 by Victoria Fu) Large bowel perforation (Acute) Septic shock (Acute) - Physical Exam General: Alert, Oriented x3, Cooperative, No apparent distress HEENT: Atraumatic, PERRLA, EOMI, Normocephalic, - - Intubated Oral: Dry Mucosa Neck: Supple, No JVD, Negative Carotid Bruits Lungs: Clear to auscultation, Normal air movement Cardiovascular: Regular rate, Regular Rhythm, Normal S1, Normal S2, No murmurs Abdomen: Bowel Sounds Present, Soft, Non Tender, Non-Distended, - - Left-sided colostomy, midline dressing intact, abdomen soft Extremities: No edema Skin: No rashes, No breakdown Musculoskeletal: No Tenderness to Palpation of Joints or Extremities Lymphatic: No Cervical, Supraclavicular, or Inguinal Adenopathy Neurological: Cranial nerves II-XII grossly intact, Neuro grossly intact Psych/Mental Status: Normal Affect, Appropriate Vital Signs Temp Pulse Resp BP Pulse Ox 97.3 F L 88 12 104/67 100 07/20/18 11:04 07/20/18 14:38 07/20/18 14:38 07/20/18 11:04 07/20/18 14:38 Oxygen Flow Rate (L/min) 4 Oxygen Delivery Method Nasal Cannula Weight: 79.3 kg Body Mass Index (BMI) 28.2 Intake and Output for Last 24 Hours 07/18/18 07/19/18 07/20/18 23:59 23:59 23:59 Output Total 100 / 100 Balance -100 / -100 Laboratory Tests Past 24 Hrs 07/20/18 07/20/18 07/20/18 14:50 14:50 14:50 WBC 4.8 RBC 3.90 L Hgb 12.2 Hct 38.3 MCV 98.2 MCH 31.3 MCHC 31.9 L RDW 14.6 RDW Differential 52.0 H Plt Count 228 MPV 8.8 Sodium Pending Potassium Pending Chloride Pending Carbon Dioxide Pending Anion Gap Pending BUN Pending Creatinine Pending Est GFR (MDRD) Af Amer Pending Est GFR (MDRD) Non-Af Pending BUN/Creatinine Ratio Pending Glucose Pending Lactic Acid Pending Calcium Pending POC Glucose 07/20/18 11:02 POC Glucose 212 H Assessment/Plan All Active Problems (Last Reviewed 03/01/18 @ 13:10 by Victoria Fu) Large bowel perforation (Acute) Septic shock (Acute) DEMETRA (acute kidney injury) (Acute) Pneumococcal pneumonia (Acute) SVT (supraventricular tachycardia) (Acute) 82 year old F with multiple comorbidities significant for Takusubo cardiomyopathy with SVTs, hypertension, type II DM, resident in a half-way who was brought to the emergency room with complaints of confusion and not feeling well as well as being diaphoretic. 1. Septic shock secondary to acute peritonitis secondary to perforated descending colon, status post surgery, on IV Zosyn, vancomycin added by it risk and assurance senior manager We will continue to monitor patient's vitals closely 2. Postop day #0 status post exploratory laparotomy, colon resection and end colostomy, on fentanyl drip 3. Acute respiratory failure, patient electively intubated for surgery, kept intubated on account of current septic shock, it risk and assurance senior manager consulted. 4. Type II DM, on insulin, n.p.o., will continue with Accu-Cheks every 6 with insulin sliding scale 5. Hypertension, now hypotensive, home medications on hold, will continue to monitor 6. COPD, not in acute exacerbation 7. History of SVT, on Cardizem, metoprolol, will monitor with as needed metoprolol. For now patient is hypotensive, will be monitoring 8. Hypothyroidism, on Synthroid, meds on hold 9. DVT PPx- Heparin SC Code Visit Inpatient E&M: 84889 Subs Hosp L3
--- NOTE | 2018-07-20 15:10 | CON.PCM_ITS ---
Problem List (1) Large bowel perforation Status: Acute (2) Septic shock Status: Acute (3) DEMETRA (acute kidney injury) Status: Acute (4) SVT (supraventricular tachycardia) Status: Acute (5) Takotsubo cardiomyopathy Status: Chronic (6) Nonrheumatic tricuspid (valve) insufficiency Status: Chronic (7) Hypothyroidism Status: Chronic Qualifiers: (8) COPD (chronic obstructive pulmonary disease) Status: Chronic Qualifiers: (9) Hyperlipidemia Status: Chronic Qualifiers: Hyperlipidemia type: pure hypercholesterolemia Qualified Code(s): E78.00 - Pure hypercholesterolemia, unspecified; E78.0 - Pure hypercholesterolemia (10) Type 2 diabetes mellitus Status: Chronic Reason for Consult Date of Consultation: 07/20/18 Reason for Consultation: Septic shock, acute respiratory failure History of Present Illness: The patient is a 82 year old F, with past medical history listed below, who presented to [facility] on 07/20/2018 secondary to confusion and not feeling well from a half-way. Patient reportedly had reported feeling worse over the last 24-48 hours. On presentation to the emergency room, patient was noted to be 87/58 without significant hypoxia. Patient does have a baseline facial droop on the right according to the son, but chest x-ray showed free air under the right hemidiaphragm. Initial lactate was noted to be 5.9. Dr. Young was made aware into the patient emergently to the OR. Patient was treated with clindamycin and azactam. During the OR, patient reportedly was hypotensive as measured by art line. She was initiated on Levophed therapy, but reportedly tolerated the surgery well. Personally discussed with Dr. Young. Patient reportedly tolerated the procedure well. A large hole was noted in the splenic flexure with balls of stool noted throughout the abdomen. Patient was given a colostomy and partial colectomy. Patient was transferred to the intensive care unit with mechanical ventilation. Patient was not attempted at extubation while in the PACU. Able to obtain any review of systems secondary to intubation. Past Medical History Past Medical History (Chronic Problems): Chronic Problems (Last Reviewed 03/01/18 @ 13:10 by Victoria Fu) Takotsubo cardiomyopathy (Chronic) Nonrheumatic tricuspid (valve) insufficiency (Chronic) Atherosclerotic heart disease of [place] coronary artery without angina pectoris (Chronic) Mild Hypothyroidism (Chronic) COPD (chronic obstructive pulmonary disease) (Chronic) Hyperlipidemia (Chronic) Type 2 diabetes mellitus (Chronic) Medical History: Medical History (Last Reviewed 03/01/18 @ 13:10 by Victoria Fu) Takotsubo cardiomyopathy (Chronic) I51.81 Nonrheumatic tricuspid (valve) insufficiency (Chronic) I36.1 Atherosclerotic heart disease of [place] coronary artery without angina pectoris (Chronic) I25.10 Mild Hypothyroidism (Chronic) E03.9 COPD (chronic obstructive pulmonary disease) (Chronic) J44.9 Hyperlipidemia (Chronic) E78.5 Type 2 diabetes mellitus (Chronic) E11.9 Anemia D64.9 CVA (cerebral vascular accident) I63.9 Depression F32.9 Osteoarthritis M19.90 Allergies codeine Allergy (Severe, Verified 07/20/18 08:52) HEART ATTACK levofloxacin [From Levaquin] Allergy (Severe, Verified 07/20/18 08:52) Anaphylaxis Sulfa (Sulfonamide Antibiotics) Allergy (Unknown, Verified 07/20/18 08:52) Unknown adhesive tape Allergy (Verified 07/20/18 08:52) Other citalopram Allergy (Verified 07/20/18 08:52) Unknown Latex, Natural Rubber Allergy (Verified 07/20/18 08:52) Rash Penicillins Allergy (Verified 07/20/18 08:52) Rash acetaminophen [From Vicodin] Adverse Reaction (Verified 07/20/18 08:52) Chest tightness hydrocodone bitartrate [From Vicodin] Adverse Reaction (Verified 07/20/18 08:52) Chest tightness Home Medications: Ambulatory Orders Medication Instructions Recorded Levothyroxine [Synthroid] 25 mcg PO DAILY@0600 05/23/16 Meloxicam [Mobic] 15 mg PO QODAY 05/23/16 Multivit with Calcium,Iron,Min 1 tab PO DAILY 05/23/16 [Multiple Vitamins For Women] Trazodone HCl 50 mg PO QHS 05/23/16 Ubidecarenone [Coenzyme Q-10] 200 mg PO DAILY 03/26/17 ergocalciferol (vitamin D2) 50,000 50,000 unit PO QMONTH 01/15/18 unit capsule Atorvastatin Calcium [Lipitor] 20 mg PO QHS 03/01/18 ondansetron HCl 4 mg tablet 4 mg PO Q8H PRN tab 03/01/18 oxybutynin chloride ER 10 mg 10 mg PO QHS 03/01/18 tablet,extended release 24 hr Hydroxyzine HCl 25 mg PO DAILY PRN 03/03/18 Ipratropium/Albuterol Sulfate 3 ml INHALATION Q4H.RT PRN 05/09/18 [Duoneb] Loperamide HCl [Loperamide] 2 mg PO PRN PRN 05/09/18 Fluticasone/Salmeterol [Advair 1 puff INHALATION BID 06/04/18 500/50 Mcg Diskus] Aspirin [Aspirin, Baby] 81 mg PO DAILY@0800 07/20/18 Diltiazem [Cardizem] 60 mg PO BID 07/20/18 Metformin HCl [Glucophage] 500 mg PO BIDCM 07/20/18 Metoprolol Tartrate [Lopressor 50 mg PO BID 07/20/18 (beta katty)] Surgical History: Surgical History (Last Updated 05/26/18 @ 10:46 by Sofia Allen) History of arthroplasty of right hip Z96.641 History of back surgery Z98.890 Lumbar Disc History of left hip replacement Z96.642 History of total bilateral knee replacement Z96.653 History of hysterectomy Z90.710 History of tonsillectomy Z90.89 Surgical History: hysterectomy, total hip arthroplasty, - - Fractured femur, bilateral knee surgeries and bilateral hip surgeries Psychiatric History: No pertinent psych hx Smoking Status: Never smoker - *Family History Maternal Family History: Family History (Last Updated 05/26/18 @ 10:48 by Sofia Allen) Mother Diabetes Brother Atrial fibrillation Brother Diabetes Sister Diabetes History Items: No pertinent history Paternal Family History: Family History (Last Updated 05/26/18 @ 10:48 by Sofia Allen) Mother Diabetes Brother Atrial fibrillation Brother Diabetes Sister Diabetes History Items: No pertinent history Review of Systems Unable to obtain accurate/complete ROS d/t: Intubated and sedated Patient Problems: Active and Suspected Problems (Last Reviewed 03/01/18 @ 13:10 by Victoria Fu) Large bowel perforation (Acute) Septic shock (Acute) Objective: All imaging was personally reviewed. CT scan of the abdomen did show free intraperitoneal air with retroperitoneal air. Sigmoid diverticulosis was noted. Patient did have bilateral atelectasis. Original chest x-ray did show underlying atelectasis at the bases with free air. Chest x-ray while in the intensive care unit showed appropriate placement of endotracheal tube. - Physical Exam General: - - Intubated and sedated. Fair vent synchrony noted. Appears stated age. HEENT: Atraumatic, PERRLA, EOMI, Normocephalic, - - No scleral icterus or injection noted. Oral: No Gingival or Mucosal Lesions/ Ulcerations, Dry Mucosa Neck: Supple, No JVD, No Nodes, Trachea Midline Lungs: No rhonchi, No wheeze, No rales, Diminished, - - Symmetric expansion. No dullness to percussion. Cardiovascular: Regular rate, Regular Rhythm, Normal S1, Normal S2, No murmurs, No rub noted, No Gallop Abdomen: Soft, Bowel Sounds Not Present, Distended - Slightly, Obese, - - Ostomy is clean, dry and intact. [place] mucosa noted. Extremities: No clubbing, No cyanosis, Capillary Refill Less than 3 Seconds, Edema - Trace peripheral edema Skin: Incision - Clean, dry and intact Musculoskeletal: No Tenderness to Palpation of Joints or Extremities Lymphatic: No Cervical, Supraclavicular, or Inguinal Adenopathy Neurological: - - Patient with paralytic on board during initial evaluation Psych/Mental Status: Flat Affect Vital Signs Temp Pulse Resp BP Pulse Ox 36.3 C L 88 12 104/67 100 07/20/18 11:04 07/20/18 14:38 07/20/18 14:38 07/20/18 11:04 07/20/18 14:38 Oxygen Flow Rate (L/min) 4 Oxygen Delivery Method Nasal Cannula Weight: 79.3 kg Body Mass Index (BMI) 28.2 Intake and Output for Last 24 Hours 07/18/18 07/19/18 07/20/18 23:59 23:59 23:59 Output Total 100 / 100 Balance -100 / -100 Laboratory Tests 07/20/18 07/20/18 07/20/18 08:00 08:00 08:00 WBC 8.1 RBC 4.43 Hgb 13.9 Hct 42.8 MCV 96.6 MCH 31.4 MCHC 32.5 RDW 14.2 RDW Differential 50.1 H Plt Count 298 MPV 8.9 Immature Gran % (Auto) 0.400 Neut % (Auto) 85.9 H Lymph % (Auto) 6.2 L [place] % (Auto) 7.3 Eos % (Auto) 0.0 Baso % (Auto) 0.2 Absolute Neuts (auto) 7.0 Absolute Lymphs (auto) 0.50 L Total Counted Not Reportable Differential Comment COMMENT PT 13.4 INR 1.0 APTT 23.9 L Specimen Type VBG pH VBG pO2 VBG O2 Sat (Calc) VBG O2 Content VBG Base Excess POC Mix VBG pCO2 Pt Tmp O2 Delivery Device Blood Gas Notified Whom Blood Gas Notified Time Sodium 139 Potassium 4.9 Chloride 99 Carbon Dioxide 25.0 Anion Gap 15 BUN 27 H Creatinine 2.35 H Estim Creat Clear Calc 17.58 Est GFR (MDRD) Af Amer 26 L Est GFR (MDRD) Non-Af 21 L BUN/Creatinine Ratio 11.5 Glucose 222 H Lactic Acid Calcium 9.4 Total Bilirubin 0.70 AST 18 ALT 15 Alkaline Phosphatase 101 Troponin I < 0.015 Total Protein 6.6 Albumin 3.0 L Globulin 3.6 Albumin/Globulin Ratio 0.8 L Urine Color Urine Clarity Urine pH Ur Specific [place] Urine Protein Urine Glucose (UA) Urine Ketones Urine Occult Blood Urine Nitrite Urine Bilirubin Urine Urobilinogen Ur Leukocyte Esterase Urine RBC Urine WBC Ur Squamous Epith Cells Urine Bacteria Urine Mucus POC Glucose 07/20/18 07/20/18 07/20/18 08:00 08:19 08:25 WBC RBC Hgb Hct MCV MCH MCHC RDW RDW Differential Plt Count MPV Immature Gran % (Auto) Neut % (Auto) Lymph % (Auto) [place] % (Auto) Eos % (Auto) Baso % (Auto) Absolute Neuts (auto) Absolute Lymphs (auto) Total Counted Differential Comment PT INR APTT Specimen Type MICHAEL VBG pH 7.36 VBG pO2 23 L VBG O2 Sat (Calc) 37 L VBG O2 Content 28 VBG Base Excess 1 POC Mix VBG pCO2 Pt Tmp 47.1 O2 Delivery Device Room Air Blood Gas Notified Whom ED Blood Gas Notified Time 818 Sodium Potassium Chloride Carbon Dioxide Anion Gap BUN Creatinine Estim Creat Clear Calc Est GFR (MDRD) Af Amer Est GFR (MDRD) Non-Af BUN/Creatinine Ratio Glucose Lactic Acid 5.9 H* Calcium Total Bilirubin AST ALT Alkaline Phosphatase Troponin I Total Protein Albumin Globulin Albumin/Globulin Ratio Urine Color Yellow Urine Clarity Cloudy Urine pH 5.0 Ur Specific [place] 1.015 Urine Protein 100 H Urine Glucose (UA) Normal Urine Ketones 5 H Urine Occult Blood 50 H Urine Nitrite Negative Urine Bilirubin 1 H Urine Urobilinogen 1 H Ur Leukocyte Esterase 500 H Urine RBC 0-5 SEEN Urine WBC >100 SEEN Ur Squamous Epith Cells 0-5 SEEN Urine Bacteria 4+ Urine Mucus RARE POC Glucose 07/20/18 07/20/18 11:02 14:50 WBC 4.8 RBC 3.90 L Hgb 12.2 Hct 38.3 MCV 98.2 MCH 31.3 MCHC 31.9 L RDW 14.6 RDW Differential 52.0 H Plt Count 228 MPV 8.8 Immature Gran % (Auto) Neut % (Auto) Lymph % (Auto) [place] % (Auto) Eos % (Auto) Baso % (Auto) Absolute Neuts (auto) Absolute Lymphs (auto) Total Counted Differential Comment PT INR APTT Specimen Type VBG pH VBG pO2 VBG O2 Sat (Calc) VBG O2 Content VBG Base Excess POC Mix VBG pCO2 Pt Tmp O2 Delivery Device Blood Gas Notified Whom Blood Gas Notified Time Sodium Potassium Chloride Carbon Dioxide Anion Gap BUN Creatinine Estim Creat Clear Calc Est GFR (MDRD) Af Amer Est GFR (MDRD) Non-Af BUN/Creatinine Ratio Glucose Lactic Acid Calcium Total Bilirubin AST ALT Alkaline Phosphatase Troponin I Total Protein Albumin Globulin Albumin/Globulin Ratio Urine Color Urine Clarity Urine pH Ur Specific [place] Urine Protein Urine Glucose (UA) Urine Ketones Urine Occult Blood Urine Nitrite Urine Bilirubin Urine Urobilinogen Ur Leukocyte Esterase Urine RBC Urine WBC Ur Squamous Epith Cells Urine Bacteria Urine Mucus POC Glucose 212 H Clinical Impression(s) from Imaging Studies Chest X-Ray 07/20/18 07:55 IMPRESSION: Findings suggestive of underlying atelectasis and/or scarring at the lung bases. Questionable free air beneath the right hemidiaphragm. A right side up decubitus view is recommended for further evaluation. Electronically Signed: Jourdan De La Fuente MD at 8:36 EDT Tel [phone], Service support , Chest X-Ray 07/20/18 08:30 IMPRESSION: Free intraperitoneal air. The referring physician was notified. Electronically Signed: Jourdan De La Fuente MD at 9:15 EDT Tel [phone], Service support , Abdomen/Pelvis CT 07/20/18 08:55 IMPRESSION: Free intraperitoneal air as well as retroperitoneal air. Sigmoid diverticulosis and possible perforation of the sigmoid colon Bibasilar atelectasis. Stable left renal cyst. Electronically Signed: Jourdan De La Fuente MD at 9:38 EDT Tel [phone], Service support , Chest X-Ray 07/20/18 10:26 IMPRESSION: The tip of the right internal jugular venous catheter is in the right atrium. Increased markings at the lung bases suggestive bibasilar atelectasis and/or scarring. Electronically Signed: Jourdan De La Fuente MD at 12:15 EDT Tel [phone], Service support , Chest X-Ray 07/20/18 14:23 IMPRESSION: All the side port tubes are in good position. Stable increased markings at the lung bases suggesting bibasilar atelectasis. Electronically Signed: Jourdan De La Fuente MD at 14:55 EDT Tel [phone], Service support , Assessment/Plan Active and Suspected Problems (Last Reviewed 03/01/18 @ 13:10 by Victoria Fu) Large bowel perforation (Acute) Septic shock (Acute) RECOMMENDATIONS: 1. Initiate propofol and fentanyl sedation 2. Spontaneous breathing and awakening trials per protocol 3. Continue pressors as necessary 4. Add empiric vancomycin given history of MRSA 5. Hold on any tube feeds for now 6. Initiate Pulmicort for therapeutic substitution of Advair IMPRESSIONS: 1. Septic shock secondary to bowel perforation Patient currently on Zosyn therapy. Will monitor for reported rash and can treat symptomatically with steroids if necessary. Patient should have vancomycin added given history of MRSA. Anticipate continued decompensation over the next 24-48 hours given stool found in the abdomen. Patient currently is a full code, but reportedly was a DNR Comfort Care arrest at the half-way prior to acute situation. Area of the lesion is suggestive of ischemic etiology. 2. Acute hypoxic respiratory failure/history of COPD Patient does have a history of COPD in the past. Will treat with bronchodilators. Hold off on steroid therapy. Chest x-ray shows only areas of atelectasis, which were likely secondary to abdominal pain. We will continue with spontaneous awakening and breathing trials per protocol. Fentanyl and propofol for sedation. Initiate Pulmicort therapy for substitution of baseline Advair 3. Diabetes mellitus Patient will be n.p.o. given acute surgical intervention. Following with sliding scale insulin is likely appropriate at this time. Not recommend continuation of metformin given patient's current renal function. 4. Acute on chronic kidney disease stage III Likely secondary to septic shock. Patient has been fluid resuscitated. Continue to support blood pressure. We will continue to monitor and replace electrolytes as necessary. 5. History of CVA/hyperlipidemia/hypothyroidism/osteoarthritis/multiple surgeries/multiple allergies/advanced age Complicates care, management, recovery and prognosis. Patient does have a right facial droop at baseline. Hold medications for now. Possibly reinitiate Synthroid once patient has bowel function. Hold baseline hypertensive medications. TIME: 45 minutes critical care time spent addressing patient's septic shock, acute respiratory failure, diabetes mellitus, acute kidney injury, review of all data and collaboration with care team (2:30 PM to 3:30 PM) Code Visit 9xxxx: [id number] Critical care first hour
[2018-07-20 15:25] LABS: Anion Gap 11 (5-15); BUN 28 mg/dL (7-18); BUN/Creat Ratio 17.1 RATIO (10-20); Calcium,Total 7.1 mg/dL (8.5-10.1); Chloride 109 mmol/L (98-107); Creatinine, Serum 1.64 mg/dL (0.55-1.02); EST Glomerular Filtration Rate 32 mL/min (>60); Est Glom Filt Rate - Afr Amer 39 mL/min (>60); Estimated Creatinine Clearance 25.19 ml/min; Glucose 241 mg/dL (74-106); Potassium 5.4 mmol/L (3.5-5.1); Sodium Level 140 mmol/L (136-145)
[2018-07-20 15:32] LABS: Lactic Acid 3.3 mmol/L (0.4-2.0)
[2018-07-20 15:40] LABS: Base Excess -6 mmol/L (-2 to +2); Bicarbonate 19.4 mmol/L (22-26); Blood Gas Specimen Type ART; FI02 45; Mode A-C; O2 Delivery Device Vent; PEEP 5; PO2 85 mmHG (75-100); RR 12; SITE OTHER; SO2 96 % (95-99); Time Given 1540; Total Carbon Dioxide 20 mmol/L; Vt 450; pCO2 35.3 mmHg (35-45); pH 7.35 (7.35-7.45)
--- NOTE | 2018-07-20 15:47 | PCM.RX.CS ---
Consult Pharmacy has been consulted to manage selected antiobiotic: Vancomycin Type of Consult: New start Suspected Infection: Sepsis Prior Doses of Antibiotics Received/Current Regimen: none Labs: Sodium 140 mmol/L (136-145) 07/20/18 14:50 Potassium 5.4 mmol/L (3.5-5.1) H 07/20/18 14:50 Chloride 109 mmol/L (98-107) H 07/20/18 14:50 Carbon Dioxide 20.0 mmol/L (21.0-32.0) L 07/20/18 14:50 Anion Gap 11 (5-15) 07/20/18 14:50 BUN 28 mg/dL (7-18) H 07/20/18 14:50 Creatinine 1.64 mg/dL (0.55-1.02) H 07/20/18 14:50 Est GFR (MDRD) Af Amer 39 mL/min (>60) L 07/20/18 14:50 Est GFR (MDRD) Non-Af 32 mL/min (>60) L 07/20/18 14:50 BUN/Creatinine Ratio 17.1 RATIO (10-20) 07/20/18 14:50 Glucose 241 mg/dL (74-106) H 07/20/18 14:50 Weight used for dosin kg Estimated Creatinine Clearance: 25ml/min Goal Trough: 15-20 mcg/mL Pharmacy Plan for Drug Dosing: Initial loading dose of Vancomycin IV was dosed at 25mg/kg or 2000mg. It was made and sent to the floor on 07/20/18 at 1600. Continuing doses of Vancomycin IV to be dosed at 750mg q24h. Draw a trough before the 4th total dose, or 3rd dose of the 750mg strength. Pharmacy Service will continue to monitor and adjust dosing as required. Follow-Up Labs: Trough Vancomycin Labs to be done on [date and time ordered]: trough on 07/23/18 at 1530
[2018-07-20] MEDS: Piperacil/Tazobactam 3.375 GM/50 ML ML IV (15:52)
[2018-07-20 16:24] LABS: CPK Total, Creatine Kinase 63 U/L (26-192); Triglycerides 67 mg/dL
[2018-07-20] MEDS: 0.9% Normal Saline 1,000 ML 999 ML IV ×2 (17:42→19:50)
[2018-07-20] MEDS: Insulin Lispro 100 UNIT/ML INSULN.PEN SC (18:06)
[2018-07-20 18:21] LABS: Bedside Glucose 232 mg/dL (70-110)
[2018-07-20] MEDS: Budesonide Respules 0.5 MG/2 ML AMPUL.NEB. INHALATION (18:48)
[2018-07-20] MEDS: Propofol 10MG/Ml 1,000 MG/100 ML Bottle 2.379 MG CONT INF (20:40)
[2018-07-20] MEDS: Chlorhexidine 15 ML PO (22:10)
[2018-07-20] MEDS: Heparin Injection (Vial) 5,000 UNIT/ML VIAL 5000 UNIT SC (22:16)
[2018-07-20] MEDS: 0.9% Normal Saline 1,000 ML 200 ML IV (22:17)
[2018-07-20 23:18] LABS: Lactic Acid 2.6 mmol/L (0.4-2.0)
[2018-07-21] VITALS (72 sets, daily range): BP systolic 70–141; BP diastolic 42–94; PULSE 82–122; RESP 12–24; TEMP 36.4–37.2; O2SAT 95–99
[2018-07-21 00:55] LABS: Bedside Glucose 196 mg/dL (70-110)
[2018-07-21] MEDS: 0.9% Normal Saline 1,000 ML 999 ML IV ×3 (01:10→06:56)
[2018-07-21] MEDS: Piperacil/Tazobactam 3.375 GM/50 ML ML IV ×3 (01:12→22:07)
[2018-07-21] MEDS: Insulin Lispro 100 UNIT/ML INSULN.PEN SC ×2 (01:13→05:36)
[2018-07-21 02:36] LABS: Reflex Lactate? Y
[2018-07-21] MEDS: 0.9% Normal Saline 1,000 ML 200 ML IV (03:00)
[2018-07-21] MEDS: Propofol 10MG/Ml 1,000 MG/100 ML Bottle 2.379 MG CONT INF ×2 (04:50→16:47)
[2018-07-21] MEDS: CHLORHEXIDINE GLUC 2% CLOTH 1 EACH TOWELETTE TOPICAL (04:52)
[2018-07-21 05:45] LABS: Bedside Glucose 169 mg/dL (70-110)
[2018-07-21 06:09] LABS: Anion Gap 9 (5-15); BUN 29 mg/dL (7-18); BUN/Creat Ratio 20.4 RATIO (10-20); Calcium,Total 6.3 mg/dL (8.5-10.1); Chloride 116 mmol/L (98-107); Creatinine, Serum 1.42 mg/dL (0.55-1.02); EST Glomerular Filtration Rate 38 mL/min (>60); Est Glom Filt Rate - Afr Amer 46 mL/min (>60); Estimated Creatinine Clearance 29.09 ml/min; Glucose 174 mg/dL (74-106); Magnesium 1.2 mg/dL (1.6-2.6); Phosphorus 2.8 mg/dL (2.5-4.9); Potassium 4.6 mmol/L (3.5-5.1); Sodium Level 142 mmol/L (136-145)
[2018-07-21 06:15] LABS: Absolute Lymphocyte Count 0.57 X10^3/ul (0.83-4.51); Absolute Neutrophil Count 7.1 X10^3/uL (2.0-7.7); Basophil# 0.02 X10^3/uL; Basophil% 0.2 % (0-1); Eosinophil# 0.07 X10^3/uL; Eosinophils% 0.9 % (0-5); Hematocrit 32.5 % (37-47); Hemoglobin 10.6 g/dl (12.0-15.0); Lymphocyte # 0.57 X10^3/ul (4.0); Lymphocyte % 7.1 % (19-41); Mean Corp Hgb Conc 32.6 g/gl (32-36); Mean Corpuscular Hgb 32.4 pg (27.0-32.0); Mean Corpuscular Volume 99.4 fL (81-99); Mean Platelet Vol. 8.6 fl (6.2-12.0); Monocyte# 0.09 X10^3/uL; Monocyte% 1.1 % (0-10); Neutrophil # 7.14 X10^3/uL (2.7-7.7); Neutrophil % 88.5 % (47-70); Platelet Count 234 K/mm3 (150-450); RBC Distribution Width CV 14.8 % (11.6-14.6); RBC Distribution Width SD 51.6 fl (35.1-43.9); Red Blood Count 3.27 M/mm3 (4.2-5.4); White Blood Count 8.1 K/mm3 (4.4-11.0)
[2018-07-21 06:17] LABS: Differential Indicated SCAN CRITERIA MET; POSITIVE COUNT NO; POSITIVE DIFFERENTIAL YES; POSITIVE MORPHOLOGY YES
[2018-07-21] MEDS: Budesonide Respules 0.5 MG/2 ML AMPUL.NEB. INHALATION ×2 (06:40→18:48)
[2018-07-21 06:51] LABS: AST(SGOT) 20 U/L (15-37); Alanine Aminotransfer ALT/SGPT 11 U/L (13-56); Albumin, Serum 1.8 g/dL (3.2-5.0); Alkaline Phosphatase 72 U/L (45-117); Bilirubin, Direct 0.17 mg/dL (0.00-0.30); Globulin 2.7 g/dL (2.2-4.2); Protein, Total 4.5 g/dL (6.4-8.2)
[2018-07-21 07:28] LABS: Lactic Acid 1.9 mmol/L (0.4-2.0)
--- NOTE | 2018-07-21 07:32 | PCM.PN.HOSP ---
Patient Problems: Active and Suspected Problems (Last Reviewed 03/01/18 @ 13:10 by Victoria Fu) Large bowel perforation (Acute) Septic shock (Acute) Subjective: Patient was seen and examined. Overnight, she became hypotensive, received more than 3 L of fluid, was restarted on levophed. Still has dark brown blood coming from the OG tube, to suction She is more arousable, still intubated, on mechanical ventilation. Objective: Physical Exam General: Alert, Sedated, No apparent distress, intubated, mechanical ventilator, HEENT: Atraumatic, PERRLA, EOMI, Normocephalic, - - Intubated, OG tube in situ, draining dark brown blood Oral: Dry Mucosa Neck: Supple, No JVD, Negative Carotid Bruits Lungs: Clear to auscultation, Normal air movement Cardiovascular: Regular rate, Regular Rhythm, Normal S1, Normal S2, No murmurs Abdomen: Bowel Sounds Present, Soft, Non Tender, Non-Distended, - - Left-sided colostomy, midline dressing intact, abdomen soft Extremities: No edema Skin: No rashes, No breakdown Musculoskeletal: No Tenderness to Palpation of Joints or Extremities Lymphatic: No Cervical, Supraclavicular, or Inguinal Adenopathy Neurological: Cranial nerves II-XII grossly intact except for right facial droop present on admission, Neuro grossly intact Psych/Mental Status: Normal Affect, Appropriate Vitals/I&O's: Vital Signs Temp Pulse Resp BP Pulse Ox 98.9 F 108 H 15 107/48 L 98 07/21/18 04:00 07/21/18 06:43 07/21/18 06:43 07/21/18 06:00 07/21/18 06:40 Oxygen Flow Rate (L/min) 4 Oxygen Delivery Method Mechanical Ventilator Weight: 87.4 kg Body Mass Index (BMI) 29.2 Intake and Output for Last 24 Hours 07/19/18 07/20/18 07/21/18 23:59 23:59 23:59 Intake Total 2208.8 / 2208.8 3680.1 / 3680.1 Output Total 254 / 254 161 / 161 Balance 1954.8 / 1954.8 3519.1 / 3519.1 Laboratory Results 07/20/18 11:02: POC Glucose 212 H 07/20/18 14:50: Lactic Acid 3.3 H 07/20/18 14:50: WBC 4.8, RBC 3.90 L, Hgb 12.2, Hct 38.3, MCV 98.2, MCH 31.3, MCHC 31.9 L, RDW 14.6, RDW Differential 52.0 H, Plt Count 228, MPV 8.8 07/20/18 14:50: Sodium 140, Potassium 5.4 H, Chloride 109 H, Carbon Dioxide 20.0 L, Anion Gap 11, BUN 28 H, Creatinine 1.64 H, Estim Creat Clear Calc 25.19, Est GFR (MDRD) Af Amer 39 L, Est GFR (MDRD) Non-Af 32 L, BUN/Creatinine Ratio 17.1, Glucose 241 H, Calcium 7.1 L 07/20/18 14:50: Total Creatine Kinase 63, Triglycerides 67 07/20/18 15:35: Specimen Type ART, Sample Site OTHER, pH 7.35, Bicarbonate Actual 19.4 L, POC Total CO2 20, Base Excess -6 L, O2 Saturation 96, O2 % 45, ABG pCO2 35.3, ABG pO2 85, Cory Test NA, Respiration Rate 12, O2 Delivery Device Vent, Minute Volume 6.00, Vent Mode A-C, Tidal Volume 450, POC PEEP 5, Blood Gas Notified Whom ICU , Blood Gas Notified Time 1540 07/20/18 17:44: POC Glucose 232 H 07/20/18 22:30: Lactic Acid 2.6 H 07/21/18 00:34: POC Glucose 196 H 07/21/18 05:25: Total Bilirubin 0.30, Direct Bilirubin 0.17, AST 20, ALT 11 L, Alkaline Phosphatase 72, Total Protein 4.5 L, Albumin 1.8 L, Globulin 2.7 07/21/18 05:28: WBC 8.1, RBC 3.27 L, Hgb 10.6 L, Hct 32.5 L, MCV 99.4 H, MCH 32.4 H, MCHC 32.6, RDW 14.8 H, RDW Differential 51.6 H, Plt Count 234, MPV 8.6, Immature Gran % (Auto) 2.200 H, Neut % (Auto) 88.5 H, Lymph % (Auto) 7.1 L, [place] % (Auto) 1.1, Eos % (Auto) 0.9, Baso % (Auto) 0.2, Absolute Neuts (auto) 7.1, Absolute Lymphs (auto) 0.57 L, Total Counted Pending 07/21/18 05:28: Sodium 142, Potassium 4.6, Chloride 116 H, Carbon Dioxide 17.0 L, Anion Gap 9, BUN 29 H, Creatinine 1.42 H, Estim Creat Clear Calc 29.09, Est GFR (MDRD) Af Amer 46 L, Est GFR (MDRD) Non-Af 38 L, BUN/Creatinine Ratio 20.4 H, Glucose 174 H, Calcium 6.3 L*, Phosphorus 2.8, Magnesium 1.2 L 07/21/18 05:36: POC Glucose 169 H 07/21/18 06:55: Lactic Acid 1.9 Current Medications Acetaminophen (Tylenol) 650 mg PO Q6H PRN PRN PRN Reason: Mild Pain (1-3)/Temp > 100.7 F Albuterol/Ipratropium (Duoneb) 3 ml INHALATION Q4H.RT PRN PRN Reason: SHORTNESS OF BREATH Budesonide (Pulmicort Aerosol) 0.5 mg INHALATION BID.RT [facility] Last Admin: 07/21/18 06:40 Dose: 0.5 mg Chlorhexidine Gluconate () 15 ml PO BID [facility] Last Admin: 07/20/18 22:10 Dose: 15 ml Chlorhexidine Gluconate () 1 each TOPICAL DAILY [facility] Last Admin: 07/21/18 04:52 Dose: 1 each Dextrose (D50w Syringe) 0 gm IV X1 PRN; Protocol PRN Reason: Hypoglycemia Ergocalciferol (Vitamin D) 50,000 unit PO QMONTH [facility] Last Admin: 07/20/18 18:07 Dose: Not Given Glucagon () 1 mg IM .X1 PRN PRN Reason: Hypoglycemia Heparin Sodium (Porcine) (Heparin Na) 5,000 unit SC BID [facility] Last Admin: 07/20/18 22:16 Dose: 5,000 unit Norepinephrine Bitartrate 8 mg (/ Dextrose) 258 mls @ 9.67 mls/hr IV .[id number] [facility] PRN Reason: 5 MCG/MIN Last Admin: 07/21/18 03:00 Dose: 9.67 mls/hr Piperacillin Sod/Tazobactam Sod (Zosyn) 3.375 gm in 50 mls @ 12.5 mls/hr IV Q12 [facility] Last Admin: 07/21/18 01:12 Dose: 12.5 mls/hr Fentanyl () 100 mls @ 5 mls/hr IV .Q20H [facility] Last Admin: 07/21/18 06:24 Dose: 5 mls/hr Propofol (Diprivan) 1,000 mg in 100 mls @ 2.379 mls/hr CONT INF .Q12H [facility]; 5 MCG/KG/MIN PRN Reason: Protocol Last Admin: 07/21/18 04:50 Dose: 2.379 mls/hr Pantoprazole Sodium 40 mg/ (Sodium Chloride) 110 mls @ 330 mls/hr IV Q12 [facility] Last Admin: 07/20/18 22:16 Dose: 330 mls/hr Vancomycin IV Pharmacy to Dose (1 ea/ Sodium Chloride) 500 mls @ 250 mls/hr IV X1 PRN; Protocol PRN Reason: Rx to Dose Vancomycin HCl 750 mg/ Sodium (Chloride) 265 mls @ 250 mls/hr IV Q24H [facility] Sodium Chloride () 250 mls @ 15 mls/hr IV .[id number] PRN PRN Reason: SALINE FLUSH Sodium Chloride () 250 mls @ 15 mls/hr IV .[id number] PRN PRN Reason: SALINE FLUSH Sodium Chloride () 1,000 mls @ 200 mls/hr IV .Q5H [facility] Last Admin: 07/21/18 03:00 Dose: 200 mls/hr Sodium Chloride () 1,000 mls @ 999 mls/hr IV .Q1H1M ONE Stop: 07/21/18 07:46 Last Admin: 07/21/18 06:56 Dose: 999 mls/hr Calcium Gluconate 2 gm/ (Dextrose) 120 mls @ 60 mls/hr IV X1 ONE Stop: 07/21/18 09:14 Last Admin: 07/21/18 07:12 Dose: 60 mls/hr Magnesium Sulfate (4 Gm/100 Ml) 4 gm in 100 mls @ 25 mls/hr IV X1 ONE Stop: 07/21/18 11:14 Last Admin: 07/21/18 07:11 Dose: 25 mls/hr Insulin Human Lispro (Humalog Kwikpen (Bkc)) 0 unit SC Q6 [facility] PRN Reason: Protocol Last Admin: 07/21/18 05:36 Dose: 3 u Magnesium Hydroxide (Milk Of Magnesia) 30 ml PO DAILY PRN PRN PRN Reason: Constipation Metoprolol Tartrate (Lopressor (Beta Jose)) 5 mg IV Q6 PRN PRN Reason: TO CONTROL HEART RATE Ondansetron HCl (Zofran) 4 mg IV Q8H PRN PRN PRN Reason: NAUSEA Sodium Chloride () 10 - 40 ml IV UD PRN PRN Reason: MULTILUMEN/HICMAN CATH FLUSH Medical Necessity - Tobacco Use Smoking Status: Never smoker Tobacco Use: Non-smoker Assessment/Plan All Active Problems (Last Reviewed 03/01/18 @ 13:10 by Victoria Fu) Large bowel perforation (Acute) Septic shock (Acute) DEMETRA (acute kidney injury) (Acute) Pneumococcal pneumonia (Acute) SVT (supraventricular tachycardia) (Acute) 82 year old F with multiple comorbidities significant for Takusubo cardiomyopathy with SVTs, hypertension, type II DM, resident in a fci who was brought to the emergency room with complaints of confusion and not feeling well as well as being diaphoretic. 1. Septic shock secondary to acute peritonitis secondary to perforated descending colon, status post surgery, Urine cultures growing E. coli, wound cultures growing gram-negative seng lactose special projects coordinator, in the colostomy bag cultures pending, patient remains hypotensive, on levophed on IV Zosyn, vancomycin, will continue to monitor 2. Postop day #1 status post exploratory laparotomy, colon resection and end colostomy, blood in the colostomy bag, on fentanyl drip, general surgery consulted. 3. DEMETRA secondary to septic shock, improved with IV fluids, continue to trend, continue gentle IV fluids 4. Hypocalcemia, hypomagnesemia, replace, recheck in a.m. 5. Acute respiratory failure, patient electively intubated for surgery, kept intubated on account of current septic shock, instructional media services technician consulted. 6. Type II DM, on insulin, kept n.p.o., blood sugars are fairly controlled, will continue with Accu-Cheks every 6 with insulin sliding scale 7. Hypertension, now hypotensive, home medications on hold, will continue to monitor 8. COPD, not in acute exacerbation 9. History of SVT, on Cardizem, metoprolol, will monitor with as needed metoprolol. Patient remains hypotensive, will be monitoring 10. Hypothyroidism, on Synthroid, meds on hold 11. DVT PPx- Heparin SC Code Visit Inpatient E&M: 52954 Subs Hosp L3
[2018-07-21 08:01] LABS: Crenated RBC 1+
--- NOTE | 2018-07-21 09:14 | PCM.PN.SRG ---
Patient Problems: Active and Suspected Problems (Last Reviewed 03/01/18 @ 13:10 by Victoria Fu) Large bowel perforation (Acute) Septic shock (Acute) Subjective: Patient still intubated/sedated does arouse with her name, patient's back on levophed 12 mcg/min when she was started Diprivan last night patient's also had low urine output, fluids are running at 200 cc, but Cr is about baseline - Physical Exam General: Cooperative, No apparent distress, - - Intubated/sedated HEENT: - - OG and ET tube in place Lungs: Normal air movement Cardiovascular: Tachycardic Abdomen: Soft, Distended - mild, - - colostomy congested-sanguinous fluid in bag Vital Signs Temp Pulse Resp BP Pulse Ox 97.5 F L 108 H 12 115/56 L 97 07/21/18 08:00 07/21/18 08:00 07/21/18 08:00 07/21/18 08:00 07/21/18 08:00 Oxygen Flow Rate (L/min) 4 Oxygen Delivery Method Mechanical Ventilator Weight: 192 lb 10.944 oz Body Mass Index (BMI) 29.2 Intake and Output for Last 24 Hours 07/19/18 07/20/18 07/21/18 23:59 23:59 23:59 Intake Total 2208.8 / 2208.8 3680.1 / 3680.1 Output Total 254 / 254 209 / 209 Balance 1954.8 / 1954.8 3471.1 / 3471.1 Laboratory Tests Past 24 Hrs 07/20/18 07/20/18 07/20/18 14:50 14:50 14:50 WBC 4.8 RBC 3.90 L Hgb 12.2 Hct 38.3 MCV 98.2 MCH 31.3 MCHC 31.9 L RDW 14.6 RDW Differential 52.0 H Plt Count 228 MPV 8.8 Immature Gran % (Auto) Neut % (Auto) Lymph % (Auto) [place] % (Auto) Eos % (Auto) Baso % (Auto) Absolute Neuts (auto) Absolute Lymphs (auto) Total Counted Differential Comment Diff Path Review RBC Morphology Specimen Type Sample Site pH Bicarbonate Actual POC Total CO2 Base Excess O2 Saturation O2 % ABG pCO2 ABG pO2 Cory Test Respiration Rate O2 Delivery Device Minute Volume Vent Mode Tidal Volume POC PEEP Blood Gas Notified Whom Blood Gas Notified Time Sodium 140 Potassium 5.4 H Chloride 109 H Carbon Dioxide 20.0 L Anion Gap 11 BUN 28 H Creatinine 1.64 H Estim Creat Clear Calc 25.19 Est GFR (MDRD) Af Amer 39 L Est GFR (MDRD) Non-Af 32 L BUN/Creatinine Ratio 17.1 Glucose 241 H Lactic Acid 3.3 H Calcium 7.1 L Phosphorus Magnesium Total Bilirubin Direct Bilirubin AST ALT Alkaline Phosphatase Total Creatine Kinase Total Protein Albumin Globulin Triglycerides 07/20/18 07/20/18 07/20/18 14:50 15:35 22:30 WBC RBC Hgb Hct MCV MCH MCHC RDW RDW Differential Plt Count MPV Immature Gran % (Auto) Neut % (Auto) Lymph % (Auto) [place] % (Auto) Eos % (Auto) Baso % (Auto) Absolute Neuts (auto) Absolute Lymphs (auto) Total Counted Differential Comment Diff Path Review RBC Morphology Specimen Type ART Sample Site OTHER pH 7.35 Bicarbonate Actual 19.4 L POC Total CO2 20 Base Excess -6 L O2 Saturation 96 O2 % 45 ABG pCO2 35.3 ABG pO2 85 Cory Test NA Respiration Rate 12 O2 Delivery Device Vent Minute Volume 6.00 Vent Mode A-C Tidal Volume 450 POC PEEP 5 Blood Gas Notified Whom ICU MD Blood Gas Notified Time 1540 Sodium Potassium Chloride Carbon Dioxide Anion Gap BUN Creatinine Estim Creat Clear Calc Est GFR (MDRD) Af Amer Est GFR (MDRD) Non-Af BUN/Creatinine Ratio Glucose Lactic Acid 2.6 H Calcium Phosphorus Magnesium Total Bilirubin Direct Bilirubin AST ALT Alkaline Phosphatase Total Creatine Kinase 63 Total Protein Albumin Globulin Triglycerides 67 07/21/18 07/21/18 07/21/18 05:25 05:28 05:28 WBC 8.1 RBC 3.27 L Hgb 10.6 L Hct 32.5 L MCV 99.4 H MCH 32.4 H MCHC 32.6 RDW 14.8 H RDW Differential 51.6 H Plt Count 234 MPV 8.6 Immature Gran % (Auto) 2.200 H Neut % (Auto) 88.5 H Lymph % (Auto) 7.1 L [place] % (Auto) 1.1 Eos % (Auto) 0.9 Baso % (Auto) 0.2 Absolute Neuts (auto) 7.1 Absolute Lymphs (auto) 0.57 L Total Counted Not Reportable Differential Comment Diff Path Review May foll RBC Morphology 1+ Specimen Type Sample Site pH Bicarbonate Actual POC Total CO2 Base Excess O2 Saturation O2 % ABG pCO2 ABG pO2 Cory Test Respiration Rate O2 Delivery Device Minute Volume Vent Mode Tidal Volume POC PEEP Blood Gas Notified Whom Blood Gas Notified Time Sodium 142 Potassium 4.6 Chloride 116 H Carbon Dioxide 17.0 L Anion Gap 9 BUN 29 H Creatinine 1.42 H Estim Creat Clear Calc 29.09 Est GFR (MDRD) Af Amer 46 L Est GFR (MDRD) Non-Af 38 L BUN/Creatinine Ratio 20.4 H Glucose 174 H Lactic Acid Calcium 6.3 L* Phosphorus 2.8 Magnesium 1.2 L Total Bilirubin 0.30 Direct Bilirubin 0.17 AST 20 ALT 11 L Alkaline Phosphatase 72 Total Creatine Kinase Total Protein 4.5 L Albumin 1.8 L Globulin 2.7 Triglycerides 07/21/18 06:55 WBC RBC Hgb Hct MCV MCH MCHC RDW RDW Differential Plt Count MPV Immature Gran % (Auto) Neut % (Auto) Lymph % (Auto) [place] % (Auto) Eos % (Auto) Baso % (Auto) Absolute Neuts (auto) Absolute Lymphs (auto) Total Counted Differential Comment Diff Path Review RBC Morphology Specimen Type Sample Site pH Bicarbonate Actual POC Total CO2 Base Excess O2 Saturation O2 % ABG pCO2 ABG pO2 Cory Test Respiration Rate O2 Delivery Device Minute Volume Vent Mode Tidal Volume POC PEEP Blood Gas Notified Whom Blood Gas Notified Time Sodium Potassium Chloride Carbon Dioxide Anion Gap BUN Creatinine Estim Creat Clear Calc Est GFR (MDRD) Af Amer Est GFR (MDRD) Non-Af BUN/Creatinine Ratio Glucose Lactic Acid 1.9 Calcium Phosphorus Magnesium Total Bilirubin Direct Bilirubin AST ALT Alkaline Phosphatase Total Creatine Kinase Total Protein Albumin Globulin Triglycerides POC Glucose 07/21/18 07/21/18 07/20/18 05:36 00:34 17:44 POC Glucose 169 H 196 H 232 H 07/20/18 11:02 POC Glucose 212 H Medical Necessity - Tobacco Use Smoking Status: Never smoker Tobacco Use: Non-smoker Assessment/Plan All Active Problems (Last Reviewed 03/01/18 @ 13:10 by Victoria Fu) Large bowel perforation (Acute) Septic shock (Acute) DEMETRA (acute kidney injury) (Acute) Pneumococcal pneumonia (Acute) SVT (supraventricular tachycardia) (Acute) 82-year-old female with pneumoperitoneum from perforated splenic flexure of the colon POD#1 s/p ex lap, L colon resection, end colostomy; septic shock, history of COPD, diabetes, elevated lactic acid 1. Continue Vent per ICU, OK for meds down OG 2. elevated lactic acid- continue to try to wean levophed, IVF at 200 cc/hr 3. low UOP, d/w Dr. Lemon about additional fluid boluses but he preferred to wait as her Cr is at abt baseline. 4. Colostomy-congested continue to monitor. Appreciate ICU and hospitalist assistance with this patients care. Aurora Young M.D. Pager: [phone] [facility] [address] [place] [address], [facility], [address] [place] [address] Office: [phone]
[2018-07-21] MEDS: Chlorhexidine 15 ML PO ×2 (09:35→20:29)
[2018-07-21] MEDS: Heparin Injection (Vial) 5,000 UNIT/ML VIAL 5000 UNIT SC ×2 (09:40→22:08)
[2018-07-21] MEDS: 0.9% NaCl IVPB Med Flush (250 mL) 15 ML IV (09:47)
--- NOTE | 2018-07-21 10:04 | CASEMGMT ---
See assessment. SW participated in ICU rounds, spoke w/son Vishal, daughter Arabella, and son in law Caleb after rounds. Pt has been at [facility] since November of 2016 and really likes it there. Pt gets assist w/meds, meals, bathing, and had been getting wheeled down for meal time. Family does anticipate SNF level of care being needed at discharge, would like pt to go to [facility]. SW explained the Medicare benefit for SNF to family. SW explained will call [facility], and will continue to follow. SW called [facility], message left regarding pt (and requested POA forms to be faxed), and initial information faxed. SW will continue to follow. DAVE Kulkarni, [employer] CERTIFIED NETWORK ASSOCIATE
[2018-07-21] MEDS: Lactated Ringers 1,000 ML 250 ML IV ×2 (10:05→13:59)
--- NOTE | 2018-07-21 10:06 | CASEMGMT ---
Addendum entered by Flora 07/21/18 13:43: Stella from [facility] faxed over POA form, SW placed it on the chart. DAVE Kulkarni, PAVEL Original Note: POA/LW not on the chart, PHILLIP left a message for Stella at [facility] requesting they be faxed to the hospital. DAVE Kulkarni, ALTERATION TAILOR APPRENTICE
--- NOTE | 2018-07-21 10:38 | PN_ITS ---
Subjective: Patient did okay overnight. Patient did have some decreased blood pressures requiring initiation of Levophed therapy. Patient also received multiple fluid boluses overnight secondary to decreased urine output. Patient was confused this morning, but following some commands. Objective: All imaging was personally reviewed. Agree with formal interpretation. General: - - Intubated and sedated. Follows some commands. Good vent synchrony noted. HEENT: Atraumatic, PERRLA, EOMI, Normocephalic, - - Mild scleral injection without icterus Oral: Moist Mucosa, No Gingival or Mucosal Lesions/ Ulcerations Neck: Supple, No JVD, No Nodes, Trachea Midline, - - Central line is clean, dry and intact. Lungs: Clear to auscultation, Normal air movement, No rhonchi, No wheeze, No rales, - - Symmetric expansion. No dullness to percussion. Cardiovascular: Normal S1, Normal S2, No murmurs, No rub noted, No Gallop, Tachycardic Abdomen: Soft, Bowel Sounds Not Present, Distended, Tender - Palpation around incision Extremities: No clubbing, No cyanosis, Edema - Anasarca Skin: Incision - Some clear secretions noted from midline incision. Do not appear purulent. No sign of dehiscence. Ostomy is hyperemic. Musculoskeletal: No Tenderness to Palpation of Joints or Extremities Lymphatic: No Cervical, Supraclavicular, or Inguinal Adenopathy Neurological: Cranial nerves II-XII grossly intact, Neuro grossly intact, Motor Exam 5/5 strength throughout Psych/Mental Status: Flat Affect Vital Signs Temp Pulse Resp BP Pulse Ox 36.4 C L 106 H 12 115/56 L 98 07/21/18 08:00 07/21/18 09:57 07/21/18 09:57 07/21/18 08:00 07/21/18 09:57 Oxygen Flow Rate (L/min) 4 Oxygen Delivery Method Mechanical Ventilator Weight: 87.4 kg Body Mass Index (BMI) 29.2 Intake and Output for Last 24 Hours 07/19/18 07/20/18 07/21/18 23:59 23:59 23:59 Intake Total 2208.8 / 2208.8 3680.1 / 3680.1 Output Total 254 / 254 239 / 239 Balance 1954.8 / 1954.8 3441.1 / 3441.1 Labs (Last 48 Hours) 07/20/18 07/20/18 07/20/18 11:02 14:50 14:50 WBC 4.8 RBC 3.90 L Hgb 12.2 Hct 38.3 MCV 98.2 MCH 31.3 MCHC 31.9 L RDW 14.6 RDW Differential 52.0 H Plt Count 228 MPV 8.8 Immature Gran % (Auto) Neut % (Auto) Lymph % (Auto) [place] % (Auto) Eos % (Auto) Baso % (Auto) Absolute Neuts (auto) Absolute Lymphs (auto) Total Counted Differential Comment Diff Path Review RBC Morphology Specimen Type Sample Site pH Bicarbonate Actual POC Total CO2 Base Excess O2 Saturation O2 % ABG pCO2 ABG pO2 Cory Test Respiration Rate O2 Delivery Device Minute Volume Vent Mode Tidal Volume POC PEEP Blood Gas Notified Whom Blood Gas Notified Time Sodium Potassium Chloride Carbon Dioxide Anion Gap BUN Creatinine Estim Creat Clear Calc Est GFR (MDRD) Af Amer Est GFR (MDRD) Non-Af BUN/Creatinine Ratio Glucose Lactic Acid 3.3 H Calcium Phosphorus Magnesium Total Bilirubin Direct Bilirubin AST ALT Alkaline Phosphatase Total Creatine Kinase Total Protein Albumin Globulin Triglycerides POC Glucose 212 H 07/20/18 07/20/18 07/20/18 14:50 14:50 15:35 WBC RBC Hgb Hct MCV MCH MCHC RDW RDW Differential Plt Count MPV Immature Gran % (Auto) Neut % (Auto) Lymph % (Auto) [place] % (Auto) Eos % (Auto) Baso % (Auto) Absolute Neuts (auto) Absolute Lymphs (auto) Total Counted Differential Comment Diff Path Review RBC Morphology Specimen Type ART Sample Site OTHER pH 7.35 Bicarbonate Actual 19.4 L POC Total CO2 20 Base Excess -6 L O2 Saturation 96 O2 % 45 ABG pCO2 35.3 ABG pO2 85 Cory Test NA Respiration Rate 12 O2 Delivery Device Vent Minute Volume 6.00 Vent Mode A-C Tidal Volume 450 POC PEEP 5 Blood Gas Notified Whom ICU MD Blood Gas Notified Time 1540 Sodium 140 Potassium 5.4 H Chloride 109 H Carbon Dioxide 20.0 L Anion Gap 11 BUN 28 H Creatinine 1.64 H Estim Creat Clear Calc 25.19 Est GFR (MDRD) Af Amer 39 L Est GFR (MDRD) Non-Af 32 L BUN/Creatinine Ratio 17.1 Glucose 241 H Lactic Acid Calcium 7.1 L Phosphorus Magnesium Total Bilirubin Direct Bilirubin AST ALT Alkaline Phosphatase Total Creatine Kinase 63 Total Protein Albumin Globulin Triglycerides 67 POC Glucose 07/20/18 07/20/18 07/21/18 17:44 22:30 00:34 WBC RBC Hgb Hct MCV MCH MCHC RDW RDW Differential Plt Count MPV Immature Gran % (Auto) Neut % (Auto) Lymph % (Auto) [place] % (Auto) Eos % (Auto) Baso % (Auto) Absolute Neuts (auto) Absolute Lymphs (auto) Total Counted Differential Comment Diff Path Review RBC Morphology Specimen Type Sample Site pH Bicarbonate Actual POC Total CO2 Base Excess O2 Saturation O2 % ABG pCO2 ABG pO2 Cory Test Respiration Rate O2 Delivery Device Minute Volume Vent Mode Tidal Volume POC PEEP Blood Gas Notified Whom Blood Gas Notified Time Sodium Potassium Chloride Carbon Dioxide Anion Gap BUN Creatinine Estim Creat Clear Calc Est GFR (MDRD) Af Amer Est GFR (MDRD) Non-Af BUN/Creatinine Ratio Glucose Lactic Acid 2.6 H Calcium Phosphorus Magnesium Total Bilirubin Direct Bilirubin AST ALT Alkaline Phosphatase Total Creatine Kinase Total Protein Albumin Globulin Triglycerides POC Glucose 232 H 196 H 07/21/18 07/21/18 07/21/18 05:25 05:28 05:28 WBC 8.1 RBC 3.27 L Hgb 10.6 L Hct 32.5 L MCV 99.4 H MCH 32.4 H MCHC 32.6 RDW 14.8 H RDW Differential 51.6 H Plt Count 234 MPV 8.6 Immature Gran % (Auto) 2.200 H Neut % (Auto) 88.5 H Lymph % (Auto) 7.1 L [place] % (Auto) 1.1 Eos % (Auto) 0.9 Baso % (Auto) 0.2 Absolute Neuts (auto) 7.1 Absolute Lymphs (auto) 0.57 L Total Counted Not Reportable Differential Comment Diff Path Review May foll RBC Morphology 1+ Specimen Type Sample Site pH Bicarbonate Actual POC Total CO2 Base Excess O2 Saturation O2 % ABG pCO2 ABG pO2 Cory Test Respiration Rate O2 Delivery Device Minute Volume Vent Mode Tidal Volume POC PEEP Blood Gas Notified Whom Blood Gas Notified Time Sodium 142 Potassium 4.6 Chloride 116 H Carbon Dioxide 17.0 L Anion Gap 9 BUN 29 H Creatinine 1.42 H Estim Creat Clear Calc 29.09 Est GFR (MDRD) Af Amer 46 L Est GFR (MDRD) Non-Af 38 L BUN/Creatinine Ratio 20.4 H Glucose 174 H Lactic Acid Calcium 6.3 L* Phosphorus 2.8 Magnesium 1.2 L Total Bilirubin 0.30 Direct Bilirubin 0.17 AST 20 ALT 11 L Alkaline Phosphatase 72 Total Creatine Kinase Total Protein 4.5 L Albumin 1.8 L Globulin 2.7 Triglycerides POC Glucose 07/21/18 07/21/18 05:36 06:55 WBC RBC Hgb Hct MCV MCH MCHC RDW RDW Differential Plt Count MPV Immature Gran % (Auto) Neut % (Auto) Lymph % (Auto) [place] % (Auto) Eos % (Auto) Baso % (Auto) Absolute Neuts (auto) Absolute Lymphs (auto) Total Counted Differential Comment Diff Path Review RBC Morphology Specimen Type Sample Site pH Bicarbonate Actual POC Total CO2 Base Excess O2 Saturation O2 % ABG pCO2 ABG pO2 Cory Test Respiration Rate O2 Delivery Device Minute Volume Vent Mode Tidal Volume POC PEEP Blood Gas Notified Whom Blood Gas Notified Time Sodium Potassium Chloride Carbon Dioxide Anion Gap BUN Creatinine Estim Creat Clear Calc Est GFR (MDRD) Af Amer Est GFR (MDRD) Non-Af BUN/Creatinine Ratio Glucose Lactic Acid 1.9 Calcium Phosphorus Magnesium Total Bilirubin Direct Bilirubin AST ALT Alkaline Phosphatase Total Creatine Kinase Total Protein Albumin Globulin Triglycerides POC Glucose 169 H Microbiology 07/20/18 12:10 Wound Drainage - Other Wound Culture - Preliminary GNR lactose contact center associate Clinical Impression(s) from Imaging Studies Chest X-Ray 07/20/18 10:26 IMPRESSION: The tip of the right internal jugular venous catheter is in the right atrium. Increased markings at the lung bases suggestive bibasilar atelectasis and/or scarring. Electronically Signed: Jourdan De La Fuente MD at 12:15 EDT Tel [phone], Service support , Chest X-Ray 07/20/18 14:23 IMPRESSION: All the side port tubes are in good position. Stable increased markings at the lung bases suggesting bibasilar atelectasis. Electronically Signed: Jourdan De La Fuente MD at 14:55 EDT Tel [phone], Service support , Medical Necessity - Tobacco Use Smoking Status: Never smoker Tobacco Use: Non-smoker Assessment/Plan All Active Problems (Last Reviewed 03/01/18 @ 13:10 by Victoria Fu) Large bowel perforation (Acute) Septic shock (Acute) DEMETRA (acute kidney injury) (Acute) Pneumococcal pneumonia (Acute) SVT (supraventricular tachycardia) (Acute) RECOMMENDATIONS: 1. Continue propofol and fentanyl 2. Spontaneous breathing and awakening trials per protocol 3. Continue pressors as necessary. If Levophed gets to 20, possibly add vasopressin 4. Continue broad-spectrum antibiotics until cultures available 5. Hold on any tube feeds for now 6. Continue Pulmicort and aerosol therapy IMPRESSIONS: 1. Septic shock secondary to bowel perforation Patient currently on Zosyn therapy. Did not have any reported rash overnight and I could not find any on evaluation this morning. Patient appears to be responding well to current therapy. Increase and pressor agents are anticipated in the first 24-48 hours. Will attempt to limit fluid infusion for now. Clear drainage from the wound likely secondary to extravasation of fluid. This does not appear purulent. 2. Acute hypoxic respiratory failure/history of COPD Patient does have a history of COPD in the past. Continue with bronchodilators and Pulmicort for substitution of Advair. Chest x-ray shows only areas of atelectasis, which were likely secondary to abdominal pain. We will continue with spontaneous awakening and breathing trials per protocol. Fentanyl and propofol for sedation and pain control. 3. Diabetes mellitus Patient will be n.p.o. given acute surgical intervention. Following with sliding scale insulin is likely appropriate at this time. Not recommend continuation of metformin given patient's current renal function. 4. Acute on chronic kidney disease stage III Patient with decreased urine output overnight. Creatinine appears to be stable. Likely secondary to septic shock. Patient has been fluid resuscitated. Continue to support blood pressure. We will continue to monitor and replace electrolytes as necessary. 5. History of CVA/hyperlipidemia/hypothyroidism/osteoarthritis/multiple surgeries/multiple allergies/advanced age Complicates care, management, recovery and prognosis. Patient does have a right facial droop at baseline. Hold medications for now. Possibly reinitiate Synthroid once patient has bowel function. Hold baseline hypertensive medications. TIME: 33 minutes critical care time spent addressing patient's septic shock, acute respiratory failure, diabetes mellitus, acute kidney injury, review of all data and collaboration with care team (8 AM to 9 AM) Code Visit [id number]: [id number] Critical care first hour
[2018-07-21 12:10] LABS: Bedside Glucose 143 mg/dL (70-110)
[2018-07-21 13:52] LABS: Pathologist Review Reviewed
--- NOTE | 2018-07-21 15:29 | NURSING ---
Was in this am to assess stoma. more edematous today, but color is dark pink. there was some serosanguineous drainage noted in the pouch. no flatus or stool yet. will monitor. the midline abdominal dressing was changed. there was a moderate amount of serosanguineous drainage noted. yuriy intact. no redness noted. did not remove the 4 mamadou. will need to discuss with Dr Young to see when she would like the mamadou removed. cleansed incision with NS. applied a dry dressing.
--- NOTE | 2018-07-21 16:47 | CHAPLAIN ---
Type of Pastoral Visit ___ Initial Visit ___ Follow-up Visit ___ On-call Visit ___ General Patient Visit ___ Spiritual Assessment ___ Family Conference ___ Bereavement ___ Rapid Response ___ Code Blue ___ Other (describe below) Pastoral Care Referral From ___ Patient ___ Family ___ Nurse ___ Physician ___ Frame Sample And Pattern Supervisor ___ Basket Patcher ___ Other (describe below) Sacrament/Intervention ___ Active listening ___ Anointing ___ Worship ___ Bereavement ___ Communion ___ Marifer exploration ___ ___ Life review ___ Prayer ___ Reconciliation ___ Sacrament of Sick ___ Supportive presence ___ Wedding ___ Other (describe below) Pastoral Comments patient is medicated and sleeping; request by RN to let her rest is observed
[2018-07-21] MEDS: Lactated Ringers 1,000 ML 150 ML IV (17:42)
[2018-07-21 17:56] LABS: Bedside Glucose 139 mg/dL (70-110)
[2018-07-21] MEDS: Ipratropium/Albuterol Sulfate 3 ML AMPUL.NEB INHALATION (18:48)
[2018-07-21] MEDS: Adenosine 6 MG/2 ML Syringe IV (19:27)
[2018-07-21] MEDS: Metoprolol Tartrate 5 MG/5 ML Vial IV (19:35)
--- NOTE | 2018-07-21 19:57 | PCM.HOSP.N ---
Hospitalist Note Nurse paged for PSVT. pvc monitor shows narrow complex tachycardia. EKG PSVT 211 bpm. Patient is on Levophed drip at 12 mics per minute. Adenosis 6 mg IV given and it broke the SVT with transient lowered to 60/min and then back to 120/min. Repeat EKG shows sinus tachycardia at 126 bpm with PVCs. 2.5 mg IV Lopressor given. Heart rate in 90s. Patient has hypomagnesemia and hypocalcemia in the morning which was replaced. Repeat BMP, magnesium and phosphorus ordered. Dr. Lemon was notified by nurse. Recommended taper down Levophed to stop and replace with vasopressor drip. Most probably, Levophed induced arrhythmia, PSVT
--- NOTE | 2018-07-21 20:01 | CCHN_ITS ---
Hospitalist Note Nurse paged for PSVT. telemetry monitor shows narrow complex tachycardia. EKG PSVT 211 bpm. Patient is on Levophed drip at 12 mics per minute. Adenosis 6 mg IV given and it broke the SVT with transient lowered to 60/min and then back to 120/min. Repeat EKG shows sinus tachycardia at 126 bpm with PVCs. 2.5 mg IV Lopressor given. Heart rate in 90s. Patient has hypomagnesemia and hypocalcemia in the morning which was replaced. Repeat BMP, magnesium and phosphorus ordered. Dr. Lemon was notified by nurse. Recommended taper down Levophed to stop and replace with vasopressor drip. Most probably, Levophed induced arrhythmia, PSVT
[2018-07-21 20:12] LABS: Anion Gap 10 (5-15); BUN 31 mg/dL (7-18); BUN/Creat Ratio 19.5 RATIO (10-20); Calcium,Total 7.1 mg/dL (8.5-10.1); Chloride 112 mmol/L (98-107); Creatinine, Serum 1.59 mg/dL (0.55-1.02); EST Glomerular Filtration Rate 33 mL/min (>60); Est Glom Filt Rate - Afr Amer 40 mL/min (>60); Estimated Creatinine Clearance 25.98 ml/min; Glucose 145 mg/dL (74-106); Magnesium 2.6 mg/dL (1.6-2.6); Potassium 4.5 mmol/L (3.5-5.1); Sodium Level 138 mmol/L (136-145)
--- NOTE | 2018-07-21 20:21 | EKG12_ITS ---
Test Reason : Blood Pressure : / mmHG Vent. Rate : 211 BPM Atrial Rate : 214 BPM P-R Int : 000 ms QRS Dur : 108 ms QT Int : 230 ms P-R-T Axes : 000 010 188 degrees QTc Int : 431 ms Supraventricular tachycardia Low voltage QRS Marked ST abnormality, possible inferior subendocardial injury Abnormal ECG When compared with ECG of 20-JUL-2018 08:04, Significant changes have occurred Confirmed by TRICIA MERCER, PREET ([id number]), food editor SADIQ BUENO ([id number]) on 07/28/2018 9:38:36 AM Referred By: Confirmed By:PREET CLARKE MD
--- NOTE | 2018-07-21 20:21 | EKG12_ITS ---
Test Reason : Blood Pressure : / mmHG Vent. Rate : 126 BPM Atrial Rate : 126 BPM P-R Int : 144 ms QRS Dur : 092 ms QT Int : 282 ms P-R-T Axes : 006 -26 077 degrees QTc Int : 408 ms Sinus tachycardia with occasional Premature ventricular complexes Low voltage QRS Borderline ECG When compared with ECG of 21-JUL-2018 19:22, MANUAL COMPARISON REQUIRED, DATA IS UNCONFIRMED Confirmed by TRICIA MERCER, PREET ([id number]), editor trade journal SADIQ BUENO ([id number]) on 07/28/2018 9:38:22 AM Referred By: Confirmed By:PREET CLARKE MD
--- NOTE | 2018-07-21 21:27 | NURSING ---
During shift report, at approximately 19:18, pt HR went into SVT with rate of 200's. EKG was performed and physician contacted. Adenosine 6mg was ordered and administered. Successful ventricular pause with return of SB rate 48, and quickly picked up pace to 90's and 110's. Pt BP did drop during event but recovered with normalizing HR. Hospitalist was at bedside. When daughter called for updates, explained what happened and daughter stated she's been having episodes of the same recently, within the last few weeks and months. Pt HR is now 90's and sinus, BP 114/56 with Levo at 8mcg/min and Vasopressin 0.04 units/hr. Titrating Levophed down.
[2018-07-21 23:51] LABS: Bedside Glucose 144 mg/dL (70-110)
[2018-07-22] VITALS (56 sets, daily range): BP systolic 85–136; BP diastolic 48–82; PULSE 68–165; RESP 10–23; TEMP 36.7–37.2; O2SAT 90–100
[2018-07-22] MEDS: Lactated Ringers 1,000 ML 150 ML IV (00:36)
[2018-07-22] MEDS: Adenosine 6 MG/2 ML Syringe IV (03:28)
[2018-07-22] MEDS: CHLORHEXIDINE GLUC 2% CLOTH 1 EACH TOWELETTE TOPICAL (03:57)
[2018-07-22 04:01] LABS: Allen Test POS; Base Excess -13 mmol/L (-2 to +2); Bicarbonate 14.9 mmol/L (22-26); Blood Gas Specimen Type ART; FI02 30; Mode A-C; O2 Delivery Device Vent; PEEP 5; PO2 69 mmHG (75-100); RR 12; SITE R Radial; SO2 90 % (95-99); Time Given 358; Total Carbon Dioxide 16 mmol/L; Vt 450; pCO2 34.6 mmHg (35-45); pH 7.24 (7.35-7.45)
--- NOTE | 2018-07-22 04:05 | CPS ---
CALLED BY RN FOR LOW SPO2 AND PHYSICIAN REQUEST TO MAKE VENT CHANGES FOR LOW SPO2 DURING SVT. ABG DRAWN PER DR. BOX REQUEST AND FIO2 INCREASED TO 40% AND PEEP INCREASED TO 8CMH2O. RESULTS GIVEN TO DR. BOX. DR. HERNANDEZ CALLED BY NURSING STAFF AND ABG RESULTS GIVEN. VERBAL ORDER RECEIVED TO PLACE PT BACK ON FIO2 OF 30% AND PEEP OF 5CMH20.
--- NOTE | 2018-07-22 04:15 | EKG12_ITS ---
Test Reason : SVT Blood Pressure : / mmHG Vent. Rate : 085 BPM Atrial Rate : 085 BPM P-R Int : 152 ms QRS Dur : 094 ms QT Int : 376 ms P-R-T Axes : 018 -25 043 degrees QTc Int : 447 ms Normal sinus rhythm Low voltage QRS Borderline ECG When compared with ECG of 22-JUL-2018 03:29, MANUAL COMPARISON REQUIRED, DATA IS UNCONFIRMED Confirmed by TRICIA MERCER, PREET ([id number]), video editor SADIQ BUENO ([id number]) on 07/28/2018 9:36:49 AM Referred By: AILEEN Confirmed By:PREET CLARKE MD
--- NOTE | 2018-07-22 04:16 | EKG12_ITS ---
Test Reason : SVT Blood Pressure : / mmHG Vent. Rate : 140 BPM Atrial Rate : 280 BPM P-R Int : 000 ms QRS Dur : 086 ms QT Int : 274 ms P-R-T Axes : -37 -38 148 degrees QTc Int : 418 ms Atrial flutter with 2:1 block Left axis deviation Low voltage QRS Inferior infarct , age undetermined Abnormal ECG When compared with ECG of 22-JUL-2018 03:28, MANUAL COMPARISON REQUIRED, DATA IS UNCONFIRMED Confirmed by TRICIA MERCER, PREET ([id number]), food editor SADIQ BUENO ([id number]) on 07/28/2018 9:37:23 AM Referred By: AILEEN Confirmed By:PREET CLARKE MD
--- NOTE | 2018-07-22 04:16 | EKG12_ITS ---
Test Reason : SVT Blood Pressure : / mmHG Vent. Rate : 084 BPM Atrial Rate : 084 BPM P-R Int : 138 ms QRS Dur : 090 ms QT Int : 360 ms P-R-T Axes : 018 -27 051 degrees QTc Int : 425 ms Sinus rhythm with Premature atrial complexes Low voltage QRS Borderline ECG When compared with ECG of 22-JUL-2018 03:18, MANUAL COMPARISON REQUIRED, DATA IS UNCONFIRMED Confirmed by TRICIA MERCER, PREET ([id number]), newspaper copy editor SADIQ BUENO ([id number]) on 07/28/2018 9:37:46 AM Referred By: AILEEN Confirmed By:PREET CLARKE MD
--- NOTE | 2018-07-22 04:17 | EKG12_ITS ---
Test Reason : SVT Blood Pressure : / mmHG Vent. Rate : 165 BPM Atrial Rate : 159 BPM P-R Int : 000 ms QRS Dur : 096 ms QT Int : 294 ms P-R-T Axes : 000 -37 156 degrees QTc Int : 487 ms Supraventricular tachycardia Left axis deviation Low voltage QRS Inferior infarct , age undetermined Abnormal ECG No previous ECGs available Confirmed by TRICIA MERCER, PREET ([id number]), food editor SADIQ BUENO ([id number]) on 07/28/2018 9:38:06 AM Referred By: AILEEN Confirmed By:PREET CLARKE MD
--- NOTE | 2018-07-22 04:21 | PN_ITS ---
Progress Note Responded to emergency page from ICU. Patient was in SVT's with ventricular rate in 160s. Nurse reported that Culinary Artist was on the phone with her and had been instructed to give Adenosine . Patient received Adenosine 6mg x 1. Heart rhythm momentarily was in A-flutter. Amiodarone 150mg was ordered. Patient was on Levophed but her blood pressure improved requiring levophed to be held. Amiodarone drip was started. Hold amiodarone for SBP <90.
[2018-07-22 04:40] LABS: Anion Gap 9 (5-15); BUN 32 mg/dL (7-18); BUN/Creat Ratio 19.5 RATIO (10-20); Calcium,Total 7.5 mg/dL (8.5-10.1); Chloride 114 mmol/L (98-107); Creatinine, Serum 1.64 mg/dL (0.55-1.02); EST Glomerular Filtration Rate 32 mL/min (>60); Est Glom Filt Rate - Afr Amer 39 mL/min (>60); Estimated Creatinine Clearance 25.19 ml/min; Glucose 167 mg/dL (74-106); Potassium 4.7 mmol/L (3.5-5.1); Sodium Level 141 mmol/L (136-145)
[2018-07-22 06:10] LABS: Magnesium 2.7 mg/dL (1.6-2.6); Phosphorus 3.1 mg/dL (2.5-4.9)
[2018-07-22 06:13] LABS: Absolute Lymphocyte Count 0.45 X10^3/ul (0.83-4.51); Absolute Neutrophil Count 6.3 X10^3/uL (2.0-7.7); Basophil# 0.01 X10^3/uL; Basophil% 0.1 % (0-1); Eosinophil# 0.03 X10^3/uL; Eosinophils% 0.4 % (0-5); Hemoglobin 9.2 g/dl (12.0-15.0); Lymphocyte # 0.45 X10^3/ul (4.0); Lymphocyte % 6.4 % (19-41); Mean Corp Hgb Conc 31.7 g/gl (32-36); Mean Corpuscular Hgb 31.3 pg (27.0-32.0); Mean Corpuscular Volume 98.6 fL (81-99); Mean Platelet Vol. 8.9 fl (6.2-12.0); Monocyte# 0.16 X10^3/uL; Monocyte% 2.3 % (0-10); Neutrophil # 6.34 X10^3/uL (2.7-7.7); Neutrophil % 90.2 % (47-70); Platelet Count 163 K/mm3 (150-450); RBC Distribution Width CV 15.1 % (11.6-14.6); RBC Distribution Width SD 54.2 fl (35.1-43.9); Red Blood Count 2.94 M/mm3 (4.2-5.4)
[2018-07-22 06:16] LABS: Differential Indicated SCAN CRITERIA MET; POSITIVE COUNT NO; POSITIVE DIFFERENTIAL YES; POSITIVE MORPHOLOGY YES
--- NOTE | 2018-07-22 06:31 | PN_ITS ---
Subjective: Overnight events were noted. Patient with 2 episodes of SVT and hypotension. Patient did respond to adenosine on both occasions and amiodarone was added after the last. Patient has been off of pressors since approximately 430 this morning. Patient is more responsive. Patient did have a spontaneous breathing trial this morning, but this was discontinued after approximately 15 minutes secondary to tachypnea and agitation. Patient continues to have serosanguineous out of the ostomy, but no stool or air noted. General: - - RASS 0-+1. Appears stated age. Obese. Good ventilator synchrony. HEENT: Atraumatic, PERRLA, EOMI, Normocephalic, - - No scleral icterus or injection noted. Oral: Moist Mucosa, No Gingival or Mucosal Lesions/ Ulcerations Neck: Supple, No JVD, No Nodes, Trachea Midline Lungs: No wheeze, No rales, Rhonchi - Bilateral bases, - - Symmetric expansion. No dullness to percussion. Cardiovascular: Regular rate, Regular Rhythm, Normal S1, Normal S2, No murmurs, No rub noted, No Gallop Abdomen: Soft, Non-Distended, Bowel Sounds Not Present, Obese, Tender - Only around incision and ostomy, - - Ostomy appears well. Extremities: No clubbing, No cyanosis, Capillary Refill Less than 3 Seconds, Edema - Anasarca Skin: - - No significant change. Incisions healing well. Musculoskeletal: No Tenderness to Palpation of Joints or Extremities Lymphatic: No Cervical, Supraclavicular, or Inguinal Adenopathy Neurological: Neuro grossly intact - Patient does have right facial droop Psych/Mental Status: Flat Affect, Restless Vital Signs Temp Pulse Resp BP Pulse Ox 36.7 C 80 15 109/55 L 95 07/22/18 04:00 07/22/18 06:00 07/22/18 06:00 07/22/18 06:00 07/22/18 06:00 Oxygen Flow Rate (L/min) 4 Oxygen Delivery Method Mechanical Ventilator Weight: 92.6 kg Body Mass Index (BMI) 29.2 Intake and Output for Last 24 Hours 07/20/18 07/21/18 07/22/18 23:59 23:59 23:59 Intake Total 2208.8 / 2208.8 7592.1 / 7592.1 2387.9 / 2387.9 Output Total 254 / 254 764 / 764 575 / 575 Balance 1954.8 / 1954.8 6828.1 / 6828.1 1812.9 / 1812.9 Labs (Last 48 Hours) 07/20/18 07/20/18 07/20/18 11:02 14:50 14:50 WBC 4.8 RBC 3.90 L Hgb 12.2 Hct 38.3 MCV 98.2 MCH 31.3 MCHC 31.9 L RDW 14.6 RDW Differential 52.0 H Plt Count 228 MPV 8.8 Immature Gran % (Auto) Neut % (Auto) Lymph % (Auto) [place] % (Auto) Eos % (Auto) Baso % (Auto) Absolute Neuts (auto) Absolute Lymphs (auto) Total Counted Differential Comment Diff Path Review RBC Morphology Specimen Type Sample Site pH Bicarbonate Actual POC Total CO2 Base Excess O2 Saturation O2 % ABG pCO2 ABG pO2 Cory Test Respiration Rate O2 Delivery Device Minute Volume Vent Mode Tidal Volume POC PEEP Blood Gas Notified Whom Blood Gas Notified Time Sodium Potassium Chloride Carbon Dioxide Anion Gap BUN Creatinine Estim Creat Clear Calc Est GFR (MDRD) Af Amer Est GFR (MDRD) Non-Af BUN/Creatinine Ratio Glucose Lactic Acid 3.3 H Calcium Phosphorus Magnesium Total Bilirubin Direct Bilirubin AST ALT Alkaline Phosphatase Total Creatine Kinase Total Protein Albumin Globulin Triglycerides POC Glucose 212 H 07/20/18 07/20/18 07/20/18 14:50 14:50 15:35 WBC RBC Hgb Hct MCV MCH MCHC RDW RDW Differential Plt Count MPV Immature Gran % (Auto) Neut % (Auto) Lymph % (Auto) [place] % (Auto) Eos % (Auto) Baso % (Auto) Absolute Neuts (auto) Absolute Lymphs (auto) Total Counted Differential Comment Diff Path Review RBC Morphology Specimen Type ART Sample Site OTHER pH 7.35 Bicarbonate Actual 19.4 L POC Total CO2 20 Base Excess -6 L O2 Saturation 96 O2 % 45 ABG pCO2 35.3 ABG pO2 85 Cory Test NA Respiration Rate 12 O2 Delivery Device Vent Minute Volume 6.00 Vent Mode A-C Tidal Volume 450 POC PEEP 5 Blood Gas Notified Whom ICU Blood Gas Notified Time 1540 Sodium 140 Potassium 5.4 H Chloride 109 H Carbon Dioxide 20.0 L Anion Gap 11 BUN 28 H Creatinine 1.64 H Estim Creat Clear Calc 25.19 Est GFR (MDRD) Af Amer 39 L Est GFR (MDRD) Non-Af 32 L BUN/Creatinine Ratio 17.1 Glucose 241 H Lactic Acid Calcium 7.1 L Phosphorus Magnesium Total Bilirubin Direct Bilirubin AST ALT Alkaline Phosphatase Total Creatine Kinase 63 Total Protein Albumin Globulin Triglycerides 67 POC Glucose 07/20/18 07/20/18 07/21/18 17:44 22:30 00:34 WBC RBC Hgb Hct MCV MCH MCHC RDW RDW Differential Plt Count MPV Immature Gran % (Auto) Neut % (Auto) Lymph % (Auto) [place] % (Auto) Eos % (Auto) Baso % (Auto) Absolute Neuts (auto) Absolute Lymphs (auto) Total Counted Differential Comment Diff Path Review RBC Morphology Specimen Type Sample Site pH Bicarbonate Actual POC Total CO2 Base Excess O2 Saturation O2 % ABG pCO2 ABG pO2 Cory Test Respiration Rate O2 Delivery Device Minute Volume Vent Mode Tidal Volume POC PEEP Blood Gas Notified Whom Blood Gas Notified Time Sodium Potassium Chloride Carbon Dioxide Anion Gap BUN Creatinine Estim Creat Clear Calc Est GFR (MDRD) Af Amer Est GFR (MDRD) Non-Af BUN/Creatinine Ratio Glucose Lactic Acid 2.6 H Calcium Phosphorus Magnesium Total Bilirubin Direct Bilirubin AST ALT Alkaline Phosphatase Total Creatine Kinase Total Protein Albumin Globulin Triglycerides POC Glucose 232 H 196 H 07/21/18 07/21/18 07/21/18 05:25 05:28 05:28 WBC 8.1 RBC 3.27 L Hgb 10.6 L Hct 32.5 L MCV 99.4 H MCH 32.4 H MCHC 32.6 RDW 14.8 H RDW Differential 51.6 H Plt Count 234 MPV 8.6 Immature Gran % (Auto) 2.200 H Neut % (Auto) 88.5 H Lymph % (Auto) 7.1 L [place] % (Auto) 1.1 Eos % (Auto) 0.9 Baso % (Auto) 0.2 Absolute Neuts (auto) 7.1 Absolute Lymphs (auto) 0.57 L Total Counted Not Reportable Differential Comment Diff Path Review Reviewed RBC Morphology 1+ Specimen Type Sample Site pH Bicarbonate Actual POC Total CO2 Base Excess O2 Saturation O2 % ABG pCO2 ABG pO2 Cory Test Respiration Rate O2 Delivery Device Minute Volume Vent Mode Tidal Volume POC PEEP Blood Gas Notified Whom Blood Gas Notified Time Sodium 142 Potassium 4.6 Chloride 116 H Carbon Dioxide 17.0 L Anion Gap 9 BUN 29 H Creatinine 1.42 H Estim Creat Clear Calc 29.09 Est GFR (MDRD) Af Amer 46 L Est GFR (MDRD) Non-Af 38 L BUN/Creatinine Ratio 20.4 H Glucose 174 H Lactic Acid Calcium 6.3 L* Phosphorus 2.8 Magnesium 1.2 L Total Bilirubin 0.30 Direct Bilirubin 0.17 AST 20 ALT 11 L Alkaline Phosphatase 72 Total Creatine Kinase Total Protein 4.5 L Albumin 1.8 L Globulin 2.7 Triglycerides POC Glucose 07/21/18 07/21/18 07/21/18 05:36 06:55 11:58 WBC RBC Hgb Hct MCV MCH MCHC RDW RDW Differential Plt Count MPV Immature Gran % (Auto) Neut % (Auto) Lymph % (Auto) [place] % (Auto) Eos % (Auto) Baso % (Auto) Absolute Neuts (auto) Absolute Lymphs (auto) Total Counted Differential Comment Diff Path Review RBC Morphology Specimen Type Sample Site pH Bicarbonate Actual POC Total CO2 Base Excess O2 Saturation O2 % ABG pCO2 ABG pO2 Cory Test Respiration Rate O2 Delivery Device Minute Volume Vent Mode Tidal Volume POC PEEP Blood Gas Notified Whom Blood Gas Notified Time Sodium Potassium Chloride Carbon Dioxide Anion Gap BUN Creatinine Estim Creat Clear Calc Est GFR (MDRD) Af Amer Est GFR (MDRD) Non-Af BUN/Creatinine Ratio Glucose Lactic Acid 1.9 Calcium Phosphorus Magnesium Total Bilirubin Direct Bilirubin AST ALT Alkaline Phosphatase Total Creatine Kinase Total Protein Albumin Globulin Triglycerides POC Glucose 169 H 143 H 07/21/18 07/21/18 07/21/18 17:40 19:49 23:48 WBC RBC Hgb Hct MCV MCH MCHC RDW RDW Differential Plt Count MPV Immature Gran % (Auto) Neut % (Auto) Lymph % (Auto) [place] % (Auto) Eos % (Auto) Baso % (Auto) Absolute Neuts (auto) Absolute Lymphs (auto) Total Counted Differential Comment Diff Path Review RBC Morphology Specimen Type Sample Site pH Bicarbonate Actual POC Total CO2 Base Excess O2 Saturation O2 % ABG pCO2 ABG pO2 Cory Test Respiration Rate O2 Delivery Device Minute Volume Vent Mode Tidal Volume POC PEEP Blood Gas Notified Whom Blood Gas Notified Time Sodium 138 Potassium 4.5 Chloride 112 H Carbon Dioxide 16.0 L Anion Gap 10 BUN 31 H Creatinine 1.59 H Estim Creat Clear Calc 25.98 Est GFR (MDRD) Af Amer 40 L Est GFR (MDRD) Non-Af 33 L BUN/Creatinine Ratio 19.5 Glucose 145 H Lactic Acid Calcium 7.1 L Phosphorus 3.0 Magnesium 2.6 Total Bilirubin Direct Bilirubin AST ALT Alkaline Phosphatase Total Creatine Kinase Total Protein Albumin Globulin Triglycerides POC Glucose 139 H 144 H 07/22/18 07/22/18 07/22/18 03:56 04:15 04:15 WBC RBC Hgb Hct MCV MCH MCHC RDW RDW Differential Plt Count MPV Immature Gran % (Auto) Neut % (Auto) Lymph % (Auto) [place] % (Auto) Eos % (Auto) Baso % (Auto) Absolute Neuts (auto) Absolute Lymphs (auto) Total Counted Differential Comment Diff Path Review RBC Morphology Specimen Type ART Sample Site R Radial pH 7.24 L Bicarbonate Actual 14.9 L POC Total CO2 16 Base Excess -13 L O2 Saturation 90 L O2 % 30 ABG pCO2 34.6 L ABG pO2 69 L Cory Test POS Respiration Rate 12 O2 Delivery Device Vent Minute Volume Vent Mode A-C Tidal Volume 450 POC PEEP 5 Blood Gas Notified Whom HOSP Blood Gas Notified Time 358 Sodium 141 Potassium 4.7 Chloride 114 H Carbon Dioxide 18.0 L Anion Gap 9 BUN 32 H Creatinine 1.64 H Estim Creat Clear Calc 25.19 Est GFR (MDRD) Af Amer 39 L Est GFR (MDRD) Non-Af 32 L BUN/Creatinine Ratio 19.5 Glucose 167 H Lactic Acid Calcium 7.5 L Phosphorus 3.1 Magnesium 2.7 H Total Bilirubin Direct Bilirubin AST ALT Alkaline Phosphatase Total Creatine Kinase Total Protein Albumin Globulin Triglycerides POC Glucose 07/22/18 04:15 WBC 7.0 RBC 2.94 L Hgb 9.2 L Hct 29.0 L MCV 98.6 MCH 31.3 MCHC 31.7 L RDW 15.1 H RDW Differential 54.2 H Plt Count 163 MPV 8.9 Immature Gran % (Auto) 0.600 Neut % (Auto) 90.2 H Lymph % (Auto) 6.4 L [place] % (Auto) 2.3 Eos % (Auto) 0.4 Baso % (Auto) 0.1 Absolute Neuts (auto) 6.3 Absolute Lymphs (auto) 0.45 L Total Counted Pending Differential Comment Diff Path Review RBC Morphology Specimen Type Sample Site pH Bicarbonate Actual POC Total CO2 Base Excess O2 Saturation O2 % ABG pCO2 ABG pO2 Cory Test Respiration Rate O2 Delivery Device Minute Volume Vent Mode Tidal Volume POC PEEP Blood Gas Notified Whom Blood Gas Notified Time Sodium Potassium Chloride Carbon Dioxide Anion Gap BUN Creatinine Estim Creat Clear Calc Est GFR (MDRD) Af Amer Est GFR (MDRD) Non-Af BUN/Creatinine Ratio Glucose Lactic Acid Calcium Phosphorus Magnesium Total Bilirubin Direct Bilirubin AST ALT Alkaline Phosphatase Total Creatine Kinase Total Protein Albumin Globulin Triglycerides POC Glucose Microbiology 07/20/18 09:45 Blood Culture (Wb) - Anticubital Right Blood Culture - Preliminary 07/20/18 12:10 Wound Drainage - Other Gram Stain - Final 07/20/18 12:10 Wound Drainage - Other Wound Culture - Preliminary 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 Continue propofol and fentanyl sedation and pain control per protocol 2. Spontaneous breathing and awakening trials per protocol 3. Initiate tube feeds per surgery recommendations 4. Continue broad-spectrum antibiotics 5. Possible diuretic therapy later today 6. Continue Pulmicort and aerosol therapy IMPRESSIONS: 1. Septic shock secondary to bowel perforation Patient currently on Zosyn therapy. Did not have any reported rash overnight and I could not find any on evaluation this morning. Patient appears to be responding well to current therapy. Pressor agents have been discontinued. Will attempt to limit fluid infusion for now. Clear drainage from the wound likely secondary to extravasation of fluid. This does not appear purulent. 2. Acute hypoxic respiratory failure/history of COPD Patient does have a history of COPD in the past. Continue with bronchodilators and Pulmicort for substitution of Advair. Chest x-ray shows only areas of atelectasis, which were likely secondary to abdominal pain. We will continue with spontaneous awakening and breathing trials per protocol. Fentanyl and propofol for sedation and pain control. 3. Diabetes mellitus Patient will be n.p.o. given acute surgical intervention. Following with sliding scale insulin is likely appropriate at this time. 4. Acute on chronic kidney disease stage III Patient with decreased urine output overnight. Creatinine appears to be stable. Likely secondary to septic shock. Patient has been fluid resuscitated. Continue to support blood pressure. We will continue to monitor and replace electrolytes as necessary. 5. History of CVA/hyperlipidemia/hypothyroidism/osteoarthritis/multiple surgeries/multiple allergies/advanced age Complicates care, management, recovery and prognosis. Patient does have a right facial droop at baseline. Hold medications for now. Possibly reinitiate Synthroid once patient has bowel function. Hold baseline hypertensive medications. TIME: 32 minutes critical care time spent addressing patient's septic shock, acute respiratory failure, diabetes mellitus, acute kidney injury, review of all data and collaboration with care team (5:20 AM to 6:20 AM) Code Visit 9xxxx: [id number] Critical care first hour
[2018-07-22] MEDS: Propofol 10MG/Ml 1,000 MG/100 ML Bottle 2.379 MG CONT INF ×2 (06:38→21:57)
[2018-07-22] MEDS: Insulin Lispro 100 UNIT/ML INSULN.PEN SC (06:39)
[2018-07-22 06:55] LABS: Bedside Glucose 160 mg/dL (70-110)
[2018-07-22] MEDS: Budesonide Respules 0.5 MG/2 ML AMPUL.NEB. INHALATION ×2 (06:56→18:38)
--- NOTE | 2018-07-22 07:33 | PCM.PN.HOSP ---
Patient Problems: Active and Suspected Problems (Last Reviewed 03/01/18 @ 13:10 by Victoria Fu) Large bowel perforation (Acute) Septic shock (Acute) Subjective: Patient was seen and examined. She is off pressors. She had an uneventful night with elevated heart rates in the 140s and 160s, with EKG showing alternating sinus tachycardia, atrial fibrillation, SVTs. Status post adenosine and subsequently amiodarone bolus and drip. Objective: Physical Exam General: Alert, Sedated, No apparent distress, intubated, mechanical ventilator, HEENT: Atraumatic, PERRLA, EOMI, Normocephalic, - - Intubated, OG tube in situ, draining dark brown blood Oral: Dry Mucosa Neck: Supple, No JVD, Negative Carotid Bruits Lungs: Clear to auscultation, Normal air movement Cardiovascular: Regular rate, Regular Rhythm, Normal S1, Normal S2, No murmurs Abdomen: Bowel Sounds Present, Soft, Non Tender, Non-Distended, - - Left-sided colostomy, midline dressing intact, abdomen soft Extremities: No edema Skin: No rashes, No breakdown Musculoskeletal: No Tenderness to Palpation of Joints or Extremities Lymphatic: No Cervical, Supraclavicular, or Inguinal Adenopathy Neurological: Cranial nerves II-XII grossly intact except for right facial droop present on admission, Neuro grossly intact Psych/Mental Status: Normal Affect, Appropriate Vitals/I&O's: Vital Signs Temp Pulse Resp BP Pulse Ox 98.1 F 151 H 16 88/56 L 92 07/22/18 04:00 07/22/18 07:00 07/22/18 07:00 07/22/18 07:00 07/22/18 07:00 Oxygen Flow Rate (L/min) 4 Oxygen Delivery Method Mechanical Ventilator Weight: 92.6 kg Body Mass Index (BMI) 29.2 Intake and Output for Last 24 Hours 07/20/18 07/21/18 07/22/18 23:59 23:59 23:59 Intake Total 2208.8 / 2208.8 7592.1 / 7592.1 2387.9 / 2387.9 Output Total 254 / 254 764 / 764 575 / 575 Balance 1954.8 / 1954.8 6828.1 / 6828.1 1812.9 / 1812.9 Microbiology Past 72 Hours 07/20/18 09:45 Blood Culture (Wb) - Anticubital Right Blood Culture - Preliminary 07/20/18 12:10 Wound Drainage - Other Gram Stain - Final 07/20/18 12:10 Wound Drainage - Other Wound Culture - Preliminary 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 Laboratory Results 07/21/18 05:28: Total Counted Not Reportable, Differential Comment , Diff Path Review Reviewed, RBC Morphology 1+ 07/21/18 11:58: POC Glucose 143 H 07/21/18 17:40: POC Glucose 139 H 07/21/18 19:49: Sodium 138, Potassium 4.5, Chloride 112 H, Carbon Dioxide 16.0 L, Anion Gap 10, BUN 31 H, Creatinine 1.59 H, Estim Creat Clear Calc 25.98, Est GFR (MDRD) Af Amer 40 L, Est GFR (MDRD) Non-Af 33 L, BUN/Creatinine Ratio 19.5, Glucose 145 H, Calcium 7.1 L, Phosphorus 3.0, Magnesium 2.6 07/21/18 23:48: POC Glucose 144 H 07/22/18 03:56: Specimen Type ART, Sample Site R Radial, pH 7.24 L, Bicarbonate Actual 14.9 L, POC Total CO2 16, Base Excess -13 L, O2 Saturation 90 L, O2 % 30, ABG pCO2 34.6 L, ABG pO2 69 L, Cory Test POS, Respiration Rate 12, O2 Delivery Device Vent, Vent Mode A-C, Tidal Volume 450, POC PEEP 5, Blood Gas Notified Whom [facility] , Blood Gas Notified Time 358 07/22/18 04:15: Sodium 141, Potassium 4.7, Chloride 114 H, Carbon Dioxide 18.0 L, Anion Gap 9, BUN 32 H, Creatinine 1.64 H, Estim Creat Clear Calc 25.19, Est GFR (MDRD) Af Amer 39 L, Est GFR (MDRD) Non-Af 32 L, BUN/Creatinine Ratio 19.5, Glucose 167 H, Calcium 7.5 L 07/22/18 04:15: Phosphorus 3.1, Magnesium 2.7 H 07/22/18 04:15: WBC 7.0, RBC 2.94 L, Hgb 9.2 L, Hct 29.0 L, MCV 98.6, MCH 31.3, MCHC 31.7 L, RDW 15.1 H, RDW Differential 54.2 H, Plt Count 163, MPV 8.9, Immature Gran % (Auto) 0.600, Neut % (Auto) 90.2 H, Lymph % (Auto) 6.4 L, [place] % (Auto) 2.3, Eos % (Auto) 0.4, Baso % (Auto) 0.1, Absolute Neuts (auto) 6.3, Absolute Lymphs (auto) 0.45 L, Total Counted Not Reportable 07/22/18 04:15: Troponin I < 0.015 07/22/18 06:30: POC Glucose 160 H Current Medications Acetaminophen (Tylenol) 650 mg PO Q6H PRN PRN PRN Reason: Mild Pain (1-3)/Temp > 100.7 F Albuterol/Ipratropium (Duoneb) 3 ml INHALATION Q4H.RT PRN PRN Reason: SHORTNESS OF BREATH Last Admin: 07/21/18 18:48 Dose: 3 ml Budesonide (Pulmicort Aerosol) 0.5 mg INHALATION BID.RT [facility] Last Admin: 07/22/18 06:56 Dose: 0.5 mg Chlorhexidine Gluconate () 15 ml PO BID [facility] Last Admin: 07/21/18 20:29 Dose: 15 ml Chlorhexidine Gluconate () 1 each TOPICAL DAILY [facility] Last Admin: 07/22/18 03:57 Dose: 1 each Dextrose (D50w Syringe) 0 gm IV X1 PRN; Protocol PRN Reason: Hypoglycemia Ergocalciferol (Vitamin D) 50,000 unit PO QMONTH [facility] Last Admin: 07/20/18 18:07 Dose: Not Given Furosemide (Lasix) 20 mg IV X1 ONE Stop: 07/22/18 08:01 Glucagon () 1 mg IM .X1 PRN PRN Reason: Hypoglycemia Heparin Sodium (Porcine) (Heparin Na) 5,000 unit SC BID [facility] Last Admin: 07/21/18 22:08 Dose: 5,000 unit Norepinephrine Bitartrate 8 mg (/ Dextrose) 258 mls @ 9.67 mls/hr IV .[id number] [facility] PRN Reason: 5 MCG/MIN Last Admin: 07/21/18 13:59 Dose: 9.67 mls/hr Piperacillin Sod/Tazobactam Sod (Zosyn) 3.375 gm in 50 mls @ 12.5 mls/hr IV Q12 [facility] Last Admin: 07/21/18 22:07 Dose: 12.5 mls/hr Fentanyl () 100 mls @ 5 mls/hr IV .Q20H [facility] Last Admin: 07/22/18 05:20 Dose: 5 mls/hr Propofol (Diprivan) 1,000 mg in 100 mls @ 2.379 mls/hr CONT INF .Q12H [facility]ICKSON; 5 MCG/KG/MIN PRN Reason: Protocol Last Admin: 07/22/18 06:38 Dose: 2.379 mls/hr Pantoprazole Sodium 40 mg/ (Sodium Chloride) 110 mls @ 330 mls/hr IV Q12 [facility] Last Admin: 07/21/18 22:08 Dose: 330 mls/hr Vancomycin IV Pharmacy to Dose (1 ea/ Sodium Chloride) 500 mls @ 250 mls/hr IV X1 PRN; Protocol PRN Reason: Rx to Dose Vancomycin HCl 750 mg/ Sodium (Chloride) 265 mls @ 250 mls/hr IV Q24H [facility] Last Admin: 07/21/18 16:38 Dose: 250 mls/hr Sodium Chloride () 250 mls @ 15 mls/hr IV .[id number] PRN PRN Reason: SALINE FLUSH Last Admin: 07/21/18 09:47 Dose: 15 mls/hr Sodium Chloride () 250 mls @ 15 mls/hr IV .[id number] PRN PRN Reason: SALINE FLUSH Lactated Ringer's () 1,000 mls @ 150 mls/hr IV .[id number] [facility] Last Admin: 07/22/18 07:08 Dose: Not Given Vasopressin 40 units/ Sodium (Chloride) 52 mls @ 3.12 mls/hr IV .[id number] [facility] PRN Reason: 0.04 UNITS/MIN Last Admin: 07/21/18 20:15 Dose: 3.12 mls/hr Amiodarone HCl/Dextrose (Nexterone 360 Mg/200 Ml Bag) 360 mg in 200 mls @ 33.333 mls/hr CONT INF .Q6H [facility] PRN Reason: 1 MG/MIN Stop: 07/22/18 09:49 Last Admin: 07/22/18 03:54 Dose: 33.333 mls/hr Amiodarone HCl/Dextrose (Nexterone 360 Mg/200 Ml Bag) 360 mg in 200 mls @ 16.667 mls/hr CONT INF .Q12H [facility] PRN Reason: 0.5 MG/MIN Stop: 07/23/18 03:48 Insulin Human Lispro (Humalog Kwikpen (Bkc)) 0 unit SC Q6 [facility] PRN Reason: Protocol Last Admin: 07/22/18 06:39 Dose: 3 units Magnesium Hydroxide (Milk Of Magnesia) 30 ml PO DAILY PRN PRN PRN Reason: Constipation Metoprolol Tartrate (Lopressor (Beta Jose)) 5 mg IV Q6 PRN PRN Reason: TO CONTROL HEART RATE Last Admin: 07/21/18 19:35 Dose: 2.5 mg Ondansetron HCl (Zofran) 4 mg IV Q8H PRN PRN PRN Reason: NAUSEA Sodium Chloride () 10 - 40 ml IV UD PRN PRN Reason: MULTILUMEN/HICMAN CATH FLUSH Last Admin: 07/22/18 03:47 Dose: 20 ml Medical Necessity - Tobacco Use Smoking Status: Never smoker Tobacco Use: Non-smoker Assessment/Plan All Active Problems (Last Reviewed 03/01/18 @ 13:10 by Victoria Fu) Large bowel perforation (Acute) Septic shock (Acute) DEMETRA (acute kidney injury) (Acute) Pneumococcal pneumonia (Acute) SVT (supraventricular tachycardia) (Acute) 82 year old F with multiple comorbidities significant for Takusubo cardiomyopathy with SVTs, hypertension, type II DM, resident in a long term admitted with complaints of confusion and not feeling well as well as being diaphoretic. 1. Septic shock secondary to acute peritonitis secondary to perforated descending colon, status post surgery, Urine cultures growing E. coli, wound cultures growing E. coli, off levophed on IV Zosyn, off vancomycin, will continue to monitor 2. Postop day #2 status post exploratory laparotomy, colon resection and end colostomy, blood in the colostomy bag, on fentanyl drip, general surgery and cwound nurse following 3. DEMETRA secondary to septic shock, likely elevated secondary to being off IV fluids 4. History of SVT, off Cardizem and metoprolol, will consult cardiology 5. Hypocalcemia, hypomagnesemia, placed 6. Acute respiratory failure, patient electively intubated for surgery, kept intubated on account of current septic shock, stripper opaquer consulted. 7. Type II DM, on insulin, kept n.p.o., blood sugars are controlled, will continue with Accu-Cheks every 6 with insulin sliding scale 8. Hypertension, now hypotensive, home medications on hold, will continue to monitor 9. COPD, not in acute exacerbation 10. Hypothyroidism, on Synthroid, meds on hold 11. DVT PPx- Heparin SC Code Visit Inpatient E&M: 95216 Subs Hosp L3
--- NOTE | 2018-07-22 08:13 | NURSING ---
removed ostomy appliance to assess stoma. there is still a moderate amount of edema noted, but the stoma is dark pink in color. peristomal skin is intact. stoma measures approx 2. there was a small amount of serosanguineous drainage noted in the appliance. still no stool or flatus noted in the pouch. see stoma photo. will continue to monitor. new 2 piece flat [place] appliance placed.
[2018-07-22] MEDS: Furosemide 20 MG/2 ML VIAL IV (08:29)
--- NOTE | 2018-07-22 09:21 | NURSING ---
wound/stoma photo: abdomen
--- NOTE | 2018-07-22 09:35 | PCM.PN.SRG ---
Patient Problems: Active and Suspected Problems (Last Reviewed 03/01/18 @ 13:10 by Victoria Fu) Large bowel perforation (Acute) Septic shock (Acute) Subjective: Patient is off pressors since this morning, had episodes of elevated heart rates into the 140s-160s currently on amiodarone, still intubated & sedated - Physical Exam General: Alert, Cooperative, No apparent distress HEENT: Atraumatic, - - OG and ET tube in place Cardiovascular: Regular rate - On amiodarone currently, Regular Rhythm Abdomen: Soft, Non Tender, Distended - MOD, - - Incision clean dry and intact with yuriy. Colostomy mild edema, only sanguinous fluid in bag Vital Signs Temp Pulse Resp BP Pulse Ox 98.1 F 143 H 12 85/57 L 97 07/22/18 08:00 07/22/18 08:00 07/22/18 08:00 07/22/18 08:00 07/22/18 08:00 Oxygen Flow Rate (L/min) 4 Oxygen Delivery Method Mechanical Ventilator Weight: 204 lb 2.369 oz Body Mass Index (BMI) 29.2 Intake and Output for Last 24 Hours 07/20/18 07/21/18 07/22/18 23:59 23:59 23:59 Intake Total 2208.8 / 2208.8 7592.1 / 7592.1 2387.9 / 2387.9 Output Total 254 / 254 764 / 764 575 / 575 Balance 1954.8 / 1954.8 6828.1 / 6828.1 1812.9 / 1812.9 Microbiology Past 72 Hours 07/20/18 12:10 Gram Stain - Final Wound Drainage - Other Wound Culture - Preliminary Escherichia coli Gram negative seng Anaerobic Culture - Preliminary Checking for anaerobes, further studies to follow. 07/20/18 09:45 Blood Culture - Preliminary Blood Culture (Wb) - Anticubital Right Laboratory Tests Past 24 Hrs 07/21/18 07/21/18 07/22/18 05:28 19:49 03:56 WBC RBC Hgb Hct MCV MCH MCHC RDW RDW Differential Plt Count MPV Immature Gran % (Auto) Neut % (Auto) Lymph % (Auto) [place] % (Auto) Eos % (Auto) Baso % (Auto) Absolute Neuts (auto) Absolute Lymphs (auto) Total Counted Diff Path Review Reviewed Specimen Type ART Sample Site R Radial pH 7.24 L Bicarbonate Actual 14.9 L POC Total CO2 16 Base Excess -13 L O2 Saturation 90 L O2 % 30 ABG pCO2 34.6 L ABG pO2 69 L Cory Test POS Respiration Rate 12 O2 Delivery Device Vent Vent Mode A-C Tidal Volume 450 POC PEEP 5 Blood Gas Notified Whom [facility] Blood Gas Notified Time 358 Sodium 138 Potassium 4.5 Chloride 112 H Carbon Dioxide 16.0 L Anion Gap 10 BUN 31 H Creatinine 1.59 H Estim Creat Clear Calc 25.98 Est GFR (MDRD) Af Amer 40 L Est GFR (MDRD) Non-Af 33 L BUN/Creatinine Ratio 19.5 Glucose 145 H Calcium 7.1 L Phosphorus 3.0 Magnesium 2.6 Troponin I 07/22/18 07/22/18 07/22/18 04:15 04:15 04:15 WBC 7.0 RBC 2.94 L Hgb 9.2 L Hct 29.0 L MCV 98.6 MCH 31.3 MCHC 31.7 L RDW 15.1 H RDW Differential 54.2 H Plt Count 163 MPV 8.9 Immature Gran % (Auto) 0.600 Neut % (Auto) 90.2 H Lymph % (Auto) 6.4 L [place] % (Auto) 2.3 Eos % (Auto) 0.4 Baso % (Auto) 0.1 Absolute Neuts (auto) 6.3 Absolute Lymphs (auto) 0.45 L Total Counted Not Reportable Diff Path Review Specimen Type Sample Site pH Bicarbonate Actual POC Total CO2 Base Excess O2 Saturation O2 % ABG pCO2 ABG pO2 Cory Test Respiration Rate O2 Delivery Device Vent Mode Tidal Volume POC PEEP Blood Gas Notified Whom Blood Gas Notified Time Sodium 141 Potassium 4.7 Chloride 114 H Carbon Dioxide 18.0 L Anion Gap 9 BUN 32 H Creatinine 1.64 H Estim Creat Clear Calc 25.19 Est GFR (MDRD) Af Amer 39 L Est GFR (MDRD) Non-Af 32 L BUN/Creatinine Ratio 19.5 Glucose 167 H Calcium 7.5 L Phosphorus 3.1 Magnesium 2.7 H Troponin I 07/22/18 04:15 WBC RBC Hgb Hct MCV MCH MCHC RDW RDW Differential Plt Count MPV Immature Gran % (Auto) Neut % (Auto) Lymph % (Auto) [place] % (Auto) Eos % (Auto) Baso % (Auto) Absolute Neuts (auto) Absolute Lymphs (auto) Total Counted Diff Path Review Specimen Type Sample Site pH Bicarbonate Actual POC Total CO2 Base Excess O2 Saturation O2 % ABG pCO2 ABG pO2 Cory Test Respiration Rate O2 Delivery Device Vent Mode Tidal Volume POC PEEP Blood Gas Notified Whom Blood Gas Notified Time Sodium Potassium Chloride Carbon Dioxide Anion Gap BUN Creatinine Estim Creat Clear Calc Est GFR (MDRD) Af Amer Est GFR (MDRD) Non-Af BUN/Creatinine Ratio Glucose Calcium Phosphorus Magnesium Troponin I < 0.015 POC Glucose 07/22/18 07/21/18 07/21/18 06:30 23:48 17:40 POC Glucose 160 H 144 H 139 H 07/21/18 11:58 POC Glucose 143 H Medical Necessity - Tobacco Use Smoking Status: Never smoker Tobacco Use: Non-smoker Assessment/Plan All Active Problems (Last Reviewed 03/01/18 @ 13:10 by Victoria Fu) Large bowel perforation (Acute) Septic shock (Acute) DEMETRA (acute kidney injury) (Acute) Pneumococcal pneumonia (Acute) SVT (supraventricular tachycardia) (Acute) 82-year-old female with pneumoperitoneum from perforated splenic flexure of the colon POD#2 s/p ex lap, L colon resection, end colostomy; septic shock, history of COPD, diabetes, elevated lactic acid-resolved, tachycardia 1. Continue Vent per ICU-wean per ICU, OK for meds down OG, okay for tube feeds once patient postoperative ileus resolved & the patient has flatus in her colostomy 2. Tachycardia-on amiodarone drip per ICU, c/s cardiology 3. Colostomy-mild edema continue to monitor. Appreciate ICU and hospitalist assistance with this patients care. Aurora Young M.D. Pager: [phone] [facility] [address] [place] [address], [facility], [address] [place] [address] Office: [phone]
--- NOTE | 2018-07-22 09:39 | PN.SURG_ITS ---
Patient Problems: Active and Suspected Problems (Last Reviewed 03/01/18 @ 13:10 by Victoria Fu) Large bowel perforation (Acute) Septic shock (Acute) Subjective: Patient is off pressors since this morning, had episodes of elevated heart rates into the 140s-160s currently on amiodarone, still intubated & sedated - Physical Exam General: Alert, Cooperative, No apparent distress HEENT: Atraumatic, - - OG and ET tube in place Cardiovascular: Regular rate - On amiodarone currently, Regular Rhythm Abdomen: Soft, Non Tender, Distended - MOD, - - Incision clean dry and intact with yuriy. Colostomy mild edema, only sanguinous fluid in bag Vital Signs Temp Pulse Resp BP Pulse Ox 98.1 F 143 H 12 85/57 L 97 07/22/18 08:00 07/22/18 08:00 07/22/18 08:00 07/22/18 08:00 07/22/18 08:00 Oxygen Flow Rate (L/min) 4 Oxygen Delivery Method Mechanical Ventilator Weight: 204 lb 2.369 oz Body Mass Index (BMI) 29.2 Intake and Output for Last 24 Hours 07/20/18 07/21/18 07/22/18 23:59 23:59 23:59 Intake Total 2208.8 / 2208.8 7592.1 / 7592.1 2387.9 / 2387.9 Output Total 254 / 254 764 / 764 575 / 575 Balance 1954.8 / 1954.8 6828.1 / 6828.1 1812.9 / 1812.9 Microbiology Past 72 Hours 07/20/18 12:10 Gram Stain - Final Wound Drainage - Other Wound Culture - Preliminary Escherichia coli Gram negative seng Anaerobic Culture - Preliminary Checking for anaerobes, further studies to follow. 07/20/18 09:45 Blood Culture - Preliminary Blood Culture (Wb) - Anticubital Right Laboratory Tests Past 24 Hrs 07/21/18 07/21/18 07/22/18 05:28 19:49 03:56 WBC RBC Hgb Hct MCV MCH MCHC RDW RDW Differential Plt Count MPV Immature Gran % (Auto) Neut % (Auto) Lymph % (Auto) Dunn % (Auto) Eos % (Auto) Baso % (Auto) Absolute Neuts (auto) Absolute Lymphs (auto) Total Counted Diff Path Review Reviewed Specimen Type ART Sample Site R Radial pH 7.24 L Bicarbonate Actual 14.9 L POC Total CO2 16 Base Excess -13 L O2 Saturation 90 L O2 % 30 ABG pCO2 34.6 L ABG pO2 69 L Cory Test POS Respiration Rate 12 O2 Delivery Device Vent Vent Mode A-C Tidal Volume 450 POC PEEP 5 Blood Gas Notified Whom [facility] Blood Gas Notified Time 358 Sodium 138 Potassium 4.5 Chloride 112 H Carbon Dioxide 16.0 L Anion Gap 10 BUN 31 H Creatinine 1.59 H Estim Creat Clear Calc 25.98 Est GFR (MDRD) Af Amer 40 L Est GFR (MDRD) Non-Af 33 L BUN/Creatinine Ratio 19.5 Glucose 145 H Calcium 7.1 L Phosphorus 3.0 Magnesium 2.6 Troponin I 07/22/18 07/22/18 07/22/18 04:15 04:15 04:15 WBC 7.0 RBC 2.94 L Hgb 9.2 L Hct 29.0 L MCV 98.6 MCH 31.3 MCHC 31.7 L RDW 15.1 H RDW Differential 54.2 H Plt Count 163 MPV 8.9 Immature Gran % (Auto) 0.600 Neut % (Auto) 90.2 H Lymph % (Auto) 6.4 L Dunn % (Auto) 2.3 Eos % (Auto) 0.4 Baso % (Auto) 0.1 Absolute Neuts (auto) 6.3 Absolute Lymphs (auto) 0.45 L Total Counted Not Reportable Diff Path Review Specimen Type Sample Site pH Bicarbonate Actual POC Total CO2 Base Excess O2 Saturation O2 % ABG pCO2 ABG pO2 Cory Test Respiration Rate O2 Delivery Device Vent Mode Tidal Volume POC PEEP Blood Gas Notified Whom Blood Gas Notified Time Sodium 141 Potassium 4.7 Chloride 114 H Carbon Dioxide 18.0 L Anion Gap 9 BUN 32 H Creatinine 1.64 H Estim Creat Clear Calc 25.19 Est GFR (MDRD) Af Amer 39 L Est GFR (MDRD) Non-Af 32 L BUN/Creatinine Ratio 19.5 Glucose 167 H Calcium 7.5 L Phosphorus 3.1 Magnesium 2.7 H Troponin I 07/22/18 04:15 WBC RBC Hgb Hct MCV MCH MCHC RDW RDW Differential Plt Count MPV Immature Gran % (Auto) Neut % (Auto) Lymph % (Auto) [place] % (Auto) Eos % (Auto) Baso % (Auto) Absolute Neuts (auto) Absolute Lymphs (auto) Total Counted Diff Path Review Specimen Type Sample Site pH Bicarbonate Actual POC Total CO2 Base Excess O2 Saturation O2 % ABG pCO2 ABG pO2 Cory Test Respiration Rate O2 Delivery Device Vent Mode Tidal Volume POC PEEP Blood Gas Notified Whom Blood Gas Notified Time Sodium Potassium Chloride Carbon Dioxide Anion Gap BUN Creatinine Estim Creat Clear Calc Est GFR (MDRD) Af Amer Est GFR (MDRD) Non-Af BUN/Creatinine Ratio Glucose Calcium Phosphorus Magnesium Troponin I < 0.015 POC Glucose 07/22/18 07/21/18 07/21/18 06:30 23:48 17:40 POC Glucose 160 H 144 H 139 H 07/21/18 11:58 POC Glucose 143 H Medical Necessity - Tobacco Use Smoking Status: Never smoker Tobacco Use: Non-smoker Assessment/Plan All Active Problems (Last Reviewed 03/01/18 @ 13:10 by Victoria Fu) Large bowel perforation (Acute) Septic shock (Acute) DEMETRA (acute kidney injury) (Acute) Pneumococcal pneumonia (Acute) SVT (supraventricular tachycardia) (Acute) 82-year-old female with pneumoperitoneum from perforated splenic flexure of the colon POD#2 s/p ex lap, L colon resection, end colostomy; septic shock, history of COPD, diabetes, elevated lactic acid-resolved, tachycardia 1. Continue Vent per ICU-wean per ICU, OK for meds down OG, okay for tube feeds once patient postoperative ileus resolved & the patient has flatus in her colostomy 2. Tachycardia-on amiodarone drip per ICU, c/s cardiology 3. Colostomy-mild edema continue to monitor. Appreciate ICU and hospitalist assistance with this patients care. Aurora Young M.D. Pager: [phone] [facility] [address] [place] [address], [facility], [address] [place] [address] Office: [phone]
[2018-07-22] MEDS: Piperacil/Tazobactam 3.375 GM/50 ML ML IV ×2 (09:42→21:50)
[2018-07-22] MEDS: Heparin Injection (Vial) 5,000 UNIT/ML VIAL 5000 UNIT SC ×2 (09:43→21:50)
[2018-07-22] MEDS: Chlorhexidine 15 ML PO ×2 (09:43→21:50)
--- NOTE | 2018-07-22 10:52 | CASEMGMT ---
SW did receive a message back from Stella letting this SW know that she did get this SW's message regarding pt. SW called Stella back and left her a message letting her know pt is still intubated, discharge date is yet to be determined, pt may be here through the weekend. SW will continue to follow for discharge to [facility] when appropriate. DAVE Kulkarni, NURSE SANE
[2018-07-22 12:15] LABS: Bedside Glucose 148 mg/dL (70-110)
[2018-07-22] MEDS: Furosemide 40 MG/4 ML Vial IV (15:06)
--- NOTE | 2018-07-22 15:10 | CHAPLAIN ---
Addendum entered by Osmani Cohen 07/22/18 15:11: Correction - this patient was not sitting up in chair but rather lying down in bed; pt did acknowledge my presence; daughter only was with patient; both welcomed the prayer and offer of support Original Note: Type of Pastoral Visit ___ Initial Visit _x__ Follow-up Visit ___ On-call Visit ___ General Patient Visit ___ Spiritual Assessment ___ Family Conference ___ Bereavement ___ Rapid Response ___ Code Blue ___ Other (describe below) Pastoral Care Referral From _x__ Patient _x__ Family ___ Nurse ___ Physician ___ Route Contractor ___ Skiing Instructor ___ Other (describe below) Sacrament/Intervention _x__ Active listening ___ Anointing ___ Cheondoism ___ Bereavement ___ Communion _x__ Marifer exploration ___ ___ Life review _x__ Prayer ___ Reconciliation ___ Sacrament of Sick _x__ Supportive presence ___ Wedding ___ Other (describe below) Pastoral Comments patient is sitting in chair with O2 mask; spouse and daughter are with pt; support and prayer given
[2018-07-22 18:16] LABS: Bedside Glucose 137 mg/dL (70-110)
--- NOTE | 2018-07-22 20:54 | PCM.CONS.C ---
Problem List (1) SVT (supraventricular tachycardia) Status: Acute (2) Takotsubo cardiomyopathy Status: Chronic (3) Atherosclerotic heart disease of [place] coronary artery without angina pectoris Status: Chronic Qualifiers: [place] vs. 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 use Diabetes mellitus complication status: with unspecified complications Qualified Code(s): E11.8 - Type 2 diabetes mellitus with unspecified complications (6) COPD (chronic obstructive pulmonary disease) Status: Chronic Qualifiers: Emphysema type: unspecified (7) Hypothyroidism Status: Chronic Qualifiers: Hypothyroidism type: unspecified (8) Large bowel perforation Status: Acute (9) Septic shock Status: Acute (10) DEMETRA (acute kidney injury) Status: Acute Reason for Consult Date of Consultation: 07/22/18 History of Present Illness: The patient is a 82 year old who presented for concerns of mental status and diaphoresis and was subsequently found to have evidence of a descending colon perforation and septicemia requiring further evaluation and care with exploratory surgery, partial colectomy, and colostomy who is referred for evaluation of recurrent SVT. The patient has a cardiovascular history which has included underlying SVT as well as a Takotsubo syndrome/apical ballooning syndrome superimposed upon a history of hyperlipidemia, diabetes mellitus, COPD, and hypothyroidism. At the present time the patient is in the ICU mechanically intubated/ventilated and partially sedated. It appears following her diagnosis and surgical procedure she has had recurrent episodes of supraventricular tachydysrhythmias. Based upon her cardiac rhythm strips it appears she has had evidence of underlying sinus rhythm, SVT appearing compatible with possible atrial flutter, as well as a wide complex tachydysrhythmia appearing compatible with an underlying SVT with aberrancy with subsequent abrupt termination to sinus rhythm status post IV adenosine infusion. The patient had recurrent episodes requiring recurrent IV adenosine infusion. She was subsequently placed on additional medical management with IV amiodarone as her hypotension, secondary to her sepsis syndrome, would not allow her to have other agents such as beta blockers, calcium channel blockers, etc. Since being on IV amiodarone she has remained in sinus rhythm. She has remained somewhat hypotensive which has been treated with IV vasopressor support which has been weaned off. There has been no report of any obvious acute chest discomfort or evidence of acute CHF or pulmonary edema. There was no report of near syncope or syncope. She remains anemic. Her creatinine level was elevated upon admission. It appears to be improving. Her troponin I levels have been negative. Her ECGs have demonstrated no other acute ECG changes. [] Past Medical History Allergies/Adverse Reactions: Allergies codeine Allergy (Severe, Verified 07/20/18 08:52) HEART ATTACK levofloxacin [From Levaquin] Allergy (Severe, Verified 07/20/18 08:52) Anaphylaxis Sulfa (Sulfonamide Antibiotics) Allergy (Unknown, Verified 07/20/18 08:52) Unknown adhesive tape Allergy (Verified 07/20/18 08:52) Other citalopram Allergy (Verified 07/20/18 08:52) Unknown Latex, Natural Rubber Allergy (Verified 07/20/18 08:52) Rash Penicillins Allergy (Verified 07/20/18 08:52) Rash acetaminophen [From Vicodin] Adverse Reaction (Verified 07/20/18 08:52) Chest tightness hydrocodone bitartrate [From Vicodin] Adverse Reaction (Verified 07/20/18 08:52) Chest tightness Home Medications: Ambulatory Orders Medication Instructions Recorded Levothyroxine [Synthroid] 25 mcg PO DAILY@0600 05/23/16 Meloxicam [Mobic] 15 mg PO QODAY 05/23/16 Multivit with Calcium,Iron,Min 1 tab PO DAILY 05/23/16 [Multiple Vitamins For Women] Trazodone HCl 50 mg PO QHS 05/23/16 Ubidecarenone [Coenzyme Q-10] 200 mg PO DAILY 03/26/17 Atorvastatin Calcium [Lipitor] 20 mg PO QHS 03/01/18 ondansetron HCl 4 mg tablet 4 mg PO Q8H tab 03/01/18 oxybutynin chloride ER 10 mg 10 mg PO QHS 03/01/18 tablet,extended release 24 hr Hydroxyzine HCl 25 mg PO DAILY PRN 03/03/18 Ipratropium/Albuterol Sulfate 3 ml INHALATION Q4H.RT PRN 05/09/18 [Duoneb] Loperamide HCl [Loperamide] 2 mg PO PRN PRN 05/09/18 Fluticasone/Salmeterol [Advair 1 puff INHALATION BID 06/04/18 500/50 Mcg Diskus] Aspirin [Aspirin, Baby] 81 mg PO DAILY@0800 07/20/18 Cholecalciferol (Vitamin D3) 1,000 unit PO DAILY 07/20/18 [Vitamin D3] Cyanocobalamin (Vitamin B-12) 1,000 mcg PO DAILY 07/20/18 [Vitamin B-12] Diltiazem [Cardizem] 60 mg PO BID 07/20/18 Insulin Aspart [Novolog Flexpen 8 units SC DINNER 07/20/18 ([facility])] Insulin Aspart [Novolog Flexpen 8 units SC LUNCH 07/20/18 ([facility])] Insulin Detemir [Levemir ([facility])] 40 units SC QHS 07/20/18 Metformin HCl [Glucophage] 500 mg PO BIDCM 07/20/18 Metoprolol Tartrate [Lopressor 50 mg PO BID 07/20/18 (beta katty)] Vitamin E 400 unit PO DAILY 07/20/18 Past Medical History (Chronic Problems): Chronic Problems (Last Reviewed 03/01/18 @ 13:10 by Victoria Fu) Takotsubo cardiomyopathy (Chronic) Nonrheumatic tricuspid (valve) insufficiency (Chronic) Atherosclerotic heart disease of [place] coronary artery without angina pectoris (Chronic) Mild Hypothyroidism (Chronic) COPD (chronic obstructive pulmonary disease) (Chronic) Hyperlipidemia (Chronic) Type 2 diabetes mellitus (Chronic) Surgical History: hysterectomy, total hip arthroplasty, - - Fractured femur, bilateral knee surgeries and bilateral hip surgeries Psychiatric History: 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 - *Family History Maternal Family History: Family History (Last Updated 05/26/18 @ 10:48 by Sofia Allen) Mother Diabetes Brother Atrial fibrillation Brother Diabetes Sister Diabetes History Items: Diabetes Paternal Family History: Family History (Last Updated 05/26/18 @ 10:48 by Sofia Allen) Mother Diabetes Brother Atrial fibrillation Brother Diabetes Sister Diabetes History Items: Diabetes, Heart Disease Lives: [place] Smoking Status: Never smoker Tobacco Use: Non-smoker Alcohol: None Drugs: None Review of Systems - Review of Systems General: Denies: Fever, Night Sweats, Fatigue Cardiovascular: Denies: Chest Discomfort, Shortness of Breath, Orthopnea, PND, Peripheral Edema, Palpitations, Lightheadedness, Dizziness, Near Syncope, Syncope Respiratory: Denies: Cough, Sputum Production, Hemoptysis Gastrointestinal: Denies: Hematemesis, Hematochezia, Melena Genitourinary: Denies: Dysuria, Hematuria Psychiatric: Reports: - - Mental status changes/confusion Subjectve: This is an 82-year-old white female who appears to be mechanically intubated, ventilated, and partially sedated at this time. Objective: Vital Signs Temp Pulse Resp BP Pulse Ox 98.5 F 71 19 H 99/54 L 99 07/22/18 20:00 07/22/18 20:00 07/22/18 20:00 07/22/18 20:00 07/22/18 20:00 Oxygen Flow Rate (L/min) 4 Oxygen Delivery Method Mechanical Ventilator Weight: 204 lb 2.369 oz Body Mass Index (BMI) 29.2 Intake and Output for Last 24 Hours 07/20/18 07/21/18 07/22/18 23:59 23:59 23:59 Intake Total 2208.8 / 2208.8 7592.1 / 7592.1 3312.9 / 3312.9 Output Total 254 / 254 764 / 764 2250 / 2250 Balance 1954.8 / 1954.8 6828.1 / 6828.1 1062.9 / 1062.9 HEENT: Atraumatic, Normocephalic Neck: Supple, Good ROM Lungs: - - Scattered upper airway sounds Cardiovascular: Regular Rhythm, Normal S1, Normal S2 Abdomen: Hypoactive Bowel Sounds Extremities: No edema 07/22/18 03:56: pH 7.24 L, Bicarbonate Actual 14.9 L, POC Total CO2 16, Base Excess -13 L, O2 Saturation 90 L, ABG pCO2 34.6 L, ABG pO2 69 L, Cory Test POS 07/22/18 04:15: Sodium 141, Potassium 4.7, Chloride 114 H, Carbon Dioxide 18.0 L, Anion Gap 9, BUN 32 H, Creatinine 1.64 H, Est GFR (MDRD) Af Amer 39 L, Est GFR (MDRD) Non-Af 32 L, BUN/Creatinine Ratio 19.5, Glucose 167 H, Calcium 7.5 L 07/22/18 04:15: Phosphorus 3.1, Magnesium 2.7 H 07/22/18 04:15: WBC 7.0, RBC 2.94 L, Hgb 9.2 L, Hct 29.0 L, MCV 98.6, MCH 31.3, MCHC 31.7 L, RDW 15.1 H, RDW Differential 54.2 H, Plt Count 163, MPV 8.9, Immature Gran % (Auto) 0.600, Neut % (Auto) 90.2 H, Lymph % (Auto) 6.4 L, Giles % (Auto) 2.3, Eos % (Auto) 0.4, Baso % (Auto) 0.1, Absolute Neuts (auto) 6.3, Total Counted Not Reportable 07/22/18 04:15: Troponin I < 0.015 Rhythm: As noted above EKG: As noted above ECHO: 03/02/2018: Left ventricle: LVEF normal at 65%; mild left atrial enlargement; mild mitral annular calcification; extension of the mitral annular calcification onto the posterior mitral valve leaflet; mild MR; mild TR; mild focal aortic valve calcification; trivial ID; estimated RV systolic pressure of 37 mmHg; decreased diastolic compliance Stress Test: 05/10/2018: Pharmacologic stress nuclear imaging study: Considered negative with a gated LVEF of 64% Cardiac Cath: 09/13/2012: [facility]: Left ventricle considered to demonstrate mid to apical left ventricular akinesis with an LVEF of 35%; left main coronary artery normal; LAD mildly calcified; LCx normal; RCA normal; 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 Supraventricular tachycardia The patient has had recurrent supraventricular tachycardia. Based upon her cardiac rhythm strips it appears she has had evidence of a potential atrial flutter as well as a supraventricular tachycardia with aberrancy-responsive to IV adenosine therapy. 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 Her current recurrent supraventricular tachycardia may be exacerbated by her underlying acute noncardiac condition/sepsis syndrome. At the present time, as she remains hypotensive, but she is not an ideal candidate for rate control therapy. She is receiving IV amiodarone and thus far it appears to be assisting with control of her cardiac rate and rhythm. Thus it will be continued at this time. As she is able to take oral medications hopefully she can resume rate limiting therapy. However she may need to be considered for continued antiarrhythmic therapy. Over time, based upon her recurrent episodes, she may also need to be considered for formal EP consultation for possible EPS/RFA. 2. The Takotsubo syndrome The patient has a history of an underlying non-CAD related cardiomyopathy compatible with a Takotsubo syndrome lash apical ballooning interim. Over time her LV systolic function has improved. Her recent noninvasive studies would suggest preserved overall LV systolic function and no obvious evidence of myocardial ischemia to suggest the development of underlying CAD. Thus at the present time she will need to be followed, during the stressful event, for any obvious recurrence of the aforementioned syndrome. She may need, depending upon her clinical course, to be reevaluated with echocardiographic studies, etc. Depending upon her clinical course, if her LV systolic function declines, she may when she is able need to be on additional medical therapy such as beta blockers and DAI inhibitors or ARB's as tolerated. 3. CAD The patient has a history of LAD mild calcification as noted above. She was not described as having angiographically significant appearing CAD. Her recent pharmacologic stress nuclear imaging study would not suggest any obvious hemodynamically significant CAD as she had no obvious evidence of ongoing myocardial ischemia. Thus she should continue risk factor evaluation care as deemed appropriate when she is able. 4. Hyperlipidemia The patient should continue evaluation and medical management as deemed appropriate for her age when she is able. 5. Diabetes mellitus She will need to continue under the care of internal medicine for this. 6. COPD She is being evaluated by internal medicine and pulmonology. 7. Hypothyroidism Again she will need to continue under the care of internal medicine for this. If she remains on amiodarone she will need to have her thyroid functions followed and medications adjusted as deemed appropriate. 8. Colon perforation She is now status post surgical intervention. She is recovering in the ICU. She is being followed by general surgery. 9. Sepsis syndrome This is thought due to her underlying colon perforation. She continues supportive measures in the ICU. 10. Acute renal insufficiency Her creatinine level was markedly elevated upon admission. It appears to be gradually improving. This will be followed as this may impact what medication she may or may not be able to receive. Comment: The above was discussed with the patient's son-in-law as well as Dr. Garrido. This note was generated with [employer] software. It may contain incorrect words, spelling, and punctuation that were not noted in checking the note before signing.
--- NOTE | 2018-07-22 20:59 | CON.PCM_ITS ---
Problem List (1) SVT (supraventricular tachycardia) Status: Acute (2) Takotsubo cardiomyopathy Status: Chronic (3) Atherosclerotic heart disease of [place] coronary artery without angina pectoris Status: Chronic Qualifiers: [place] vs. 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 use Diabetes mellitus complication status: with unspecified complications Qualified Code(s) : E11.8 - Type 2 diabetes mellitus with unspecified complications (6) COPD (chronic obstructive pulmonary disease) Status: Chronic Qualifiers: Emphysema type: unspecified (7) Hypothyroidism Status: Chronic Qualifiers: Hypothyroidism type: unspecified (8) Large bowel perforation Status: Acute (9) Septic shock Status: Acute (10) DEMETRA (acute kidney injury) Status: Acute Reason for Consult Date of Consultation: 07/22/18 History of Present Illness: The patient is a 82 year old who presented for concerns of mental status and diaphoresis and was subsequently found to have evidence of a descending colon perforation and septicemia requiring further evaluation and care with exploratory surgery, partial colectomy, and colostomy who is referred for evaluation of recurrent SVT. The patient has a cardiovascular history which has included underlying SVT as well as a Takotsubo syndrome/apical ballooning syndrome superimposed upon a history of hyperlipidemia, diabetes mellitus, COPD , and hypothyroidism. At the present time the patient is in the ICU mechanically intubated/ventilated and partially sedated. It appears following her diagnosis and surgical procedure she has had recurrent episodes of supraventricular tachydysrhythmias. Based upon her cardiac rhythm strips it appears she has had evidence of underlying sinus rhythm, SVT appearing compatible with possible atrial flutter, as well as a wide complex tachydysrhythmia appearing compatible with an underlying SVT with aberrancy with subsequent abrupt termination to sinus rhythm status post IV adenosine infusion. The patient had recurrent episodes requiring recurrent IV adenosine infusion. She was subsequently placed on additional medical management with IV amiodarone as her hypotension, secondary to her sepsis syndrome, would not allow her to have other agents such as beta blockers, calcium channel blockers, etc. Since being on IV amiodarone she has remained in sinus rhythm. She has remained somewhat hypotensive which has been treated with IV vasopressor support which has been weaned off. There has been no report of any obvious acute chest discomfort or evidence of acute CHF or pulmonary edema. There was no report of near syncope or syncope. She remains anemic. Her creatinine level was elevated upon admission. It appears to be improving. Her troponin I levels have been negative. Her ECGs have demonstrated no other acute ECG changes. [] Past Medical History Allergies/Adverse Reactions: Allergies codeine Allergy (Severe, Verified 07/20/18 08:52) HEART ATTACK levofloxacin [From Levaquin] Allergy (Severe, Verified 07/20/18 08:52) Anaphylaxis Sulfa (Sulfonamide Antibiotics) Allergy (Unknown, Verified 07/20/18 08:52) Unknown adhesive tape Allergy (Verified 07/20/18 08:52) Other citalopram Allergy (Verified 07/20/18 08:52) Unknown Latex, Natural Rubber Allergy (Verified 07/20/18 08:52) Rash Penicillins Allergy (Verified 07/20/18 08:52) Rash acetaminophen [From Vicodin] Adverse Reaction (Verified 07/20/18 08:52) Chest tightness hydrocodone bitartrate [From Vicodin] Adverse Reaction (Verified 07/20/18 08:52) Chest tightness Home Medications: Ambulatory Orders Medication Instructions Recorded Levothyroxine [Synthroid] 25 mcg PO DAILY@0600 05/23/16 Meloxicam [Mobic] 15 mg PO QODAY 05/23/16 Multivit with Calcium,Iron,Min 1 tab PO DAILY 05/23/16 [Multiple Vitamins For Women] Trazodone HCl 50 mg PO QHS 05/23/16 Ubidecarenone [Coenzyme Q-10] 200 mg PO DAILY 03/26/17 Atorvastatin Calcium [Lipitor] 20 mg PO QHS 03/01/18 ondansetron HCl 4 mg tablet 4 mg PO Q8H tab 03/01/18 oxybutynin chloride ER 10 mg 10 mg PO QHS 03/01/18 tablet,extended release 24 hr Hydroxyzine HCl 25 mg PO DAILY PRN 03/03/18 Ipratropium/Albuterol Sulfate 3 ml INHALATION Q4H.RT PRN 05/09/18 [Duoneb] Loperamide HCl [Loperamide] 2 mg PO PRN PRN 05/09/18 Fluticasone/Salmeterol [Advair 1 puff INHALATION BID 06/04/18 500/50 Mcg Diskus] Aspirin [Aspirin, Baby] 81 mg PO DAILY@0800 07/20/18 Cholecalciferol (Vitamin D3) 1,000 unit PO DAILY 07/20/18 [Vitamin D3] Cyanocobalamin (Vitamin B-12) 1,000 mcg PO DAILY 07/20/18 [Vitamin B-12] Diltiazem [Cardizem] 60 mg PO BID 07/20/18 Insulin Aspart [Novolog Flexpen 8 units SC DINNER 07/20/18 ([facility])] Insulin Aspart [Novolog Flexpen 8 units SC LUNCH 07/20/18 ([facility])] Insulin Detemir [Levemir ([facility])] 40 units SC QHS 07/20/18 Metformin HCl [Glucophage] 500 mg PO BIDCM 07/20/18 Metoprolol Tartrate [Lopressor 50 mg PO BID 07/20/18 (beta katty)] Vitamin E 400 unit PO DAILY 07/20/18 Past Medical History (Chronic Problems): Chronic Problems (Last Reviewed 03/01/18 @ 13:10 by Victoria Fu) Takotsubo cardiomyopathy (Chronic) Nonrheumatic tricuspid (valve) insufficiency (Chronic) Atherosclerotic heart disease of [place] coronary artery without angina pectoris (Chronic) Mild Hypothyroidism (Chronic) COPD (chronic obstructive pulmonary disease) (Chronic) Hyperlipidemia (Chronic) Type 2 diabetes mellitus (Chronic) Surgical History: hysterectomy, total hip arthroplasty, - - Fractured femur, bilateral knee surgeries and bilateral hip surgeries Psychiatric History: No pertinent psych hx MUSIC 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: No pertinent MUSIC REHABILITATION THERAPIST history - *Family History Maternal Family History: Family History (Last Updated 05/26/18 @ 10:48 by Sofia Allen) Mother Diabetes Brother Atrial fibrillation Brother Diabetes Sister Diabetes History Items: Diabetes Paternal Family History: Family History (Last Updated 05/26/18 @ 10:48 by Sofia Allen) Mother Diabetes Brother Atrial fibrillation Brother Diabetes Sister Diabetes History Items: Diabetes, Heart Disease Lives: Alf Smoking Status: Never smoker Tobacco Use: Non-smoker Alcohol: None Drugs: None Review of Systems - Review of Systems General: Denies: Fever, Night Sweats, Fatigue Cardiovascular: Denies: Chest Discomfort, Shortness of Breath, Orthopnea, PND, Peripheral Edema, Palpitations, Lightheadedness, Dizziness, Near Syncope, Syncope Respiratory: Denies: Cough, Sputum Production, Hemoptysis Gastrointestinal: Denies: Hematemesis, Hematochezia, Melena Genitourinary: Denies: Dysuria, Hematuria Psychiatric: Reports: - - Mental status changes/confusion Subjectve: This is an 82-year-old white female who appears to be mechanically intubated, ventilated, and partially sedated at this time. Objective: Vital Signs Temp Pulse Resp BP Pulse Ox 98.5 F 71 19 H 99/54 L 99 07/22/18 20:00 07/22/18 20:00 07/22/18 20:00 07/22/18 20:00 07/22/18 20:00 Oxygen Flow Rate (L/min) 4 Oxygen Delivery Method Mechanical Ventilator Weight: 204 lb 2.369 oz Body Mass Index (BMI) 29.2 Intake and Output for Last 24 Hours 07/20/18 07/21/18 07/22/18 23:59 23:59 23:59 Intake Total 2208.8 / 2208.8 7592.1 / 7592.1 3312.9 / 3312.9 Output Total 254 / 254 764 / 764 2250 / 2250 Balance 1954.8 / 1954.8 6828.1 / 6828.1 1062.9 / 1062.9 HEENT: Atraumatic, Normocephalic Neck: Supple, Good ROM Lungs: - - Scattered upper airway sounds Cardiovascular: Regular Rhythm, Normal S1, Normal S2 Abdomen: Hypoactive Bowel Sounds Extremities: No edema 07/22/18 03:56: pH 7.24 L, Bicarbonate Actual 14.9 L, POC Total CO2 16, Base Excess -13 L, O2 Saturation 90 L, ABG pCO2 34.6 L, ABG pO2 69 L, Cory Test POS 07/22/18 04:15: Sodium 141, Potassium 4.7, Chloride 114 H, Carbon Dioxide 18.0 L , Anion Gap 9, BUN 32 H, Creatinine 1.64 H, Est GFR (MDRD) Af Amer 39 L, Est GFR (MDRD) Non-Af 32 L, BUN/Creatinine Ratio 19.5, Glucose 167 H, Calcium 7.5 L 07/22/18 04:15: Phosphorus 3.1, Magnesium 2.7 H 07/22/18 04:15: WBC 7.0, RBC 2.94 L, Hgb 9.2 L, Hct 29.0 L, MCV 98.6, MCH 31.3, MCHC 31.7 L, RDW 15.1 H, RDW Differential 54.2 H, Plt Count 163, MPV 8.9, Immature Gran % (Auto) 0.600, Neut % (Auto) 90.2 H, Lymph % (Auto) 6.4 L, [place] % (Auto) 2.3, Eos % (Auto) 0.4, Baso % (Auto) 0.1, Absolute Neuts (auto) 6.3, Total Counted Not Reportable 07/22/18 04:15: Troponin I < 0.015 Rhythm: As noted above EKG: As noted above ECHO: 03/02/2018: Left ventricle: LVEF normal at 65%; mild left atrial enlargement ; mild mitral annular calcification; extension of the mitral annular calcification onto the posterior mitral valve leaflet; mild MR; mild TR; mild focal aortic valve calcification; trivial SC; estimated RV systolic pressure of 37 mmHg; decreased diastolic compliance Stress Test: 05/10/2018: Pharmacologic stress nuclear imaging study: Considered negative with a gated LVEF of 64% Cardiac Cath: 09/13/2012: [facility]: Left ventricle considered to demonstrate mid to apical left ventricular akinesis with an LVEF of 35%; left main coronary artery normal; LAD mildly calcified; LCx normal; RCA normal; 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 Supraventricular tachycardia The patient has had recurrent supraventricular tachycardia. Based upon her cardiac rhythm strips it appears she has had evidence of a potential atrial flutter as well as a supraventricular tachycardia with aberrancy-responsive to IV adenosine therapy. 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 Her current recurrent supraventricular tachycardia may be exacerbated by her underlying acute noncardiac condition/sepsis syndrome. At the present time, as she remains hypotensive, but she is not an ideal candidate for rate control therapy. She is receiving IV amiodarone and thus far it appears to be assisting with control of her cardiac rate and rhythm. Thus it will be continued at this time. As she is able to take oral medications hopefully she can resume rate limiting therapy. However she may need to be considered for continued antiarrhythmic therapy. Over time, based upon her recurrent episodes, she may also need to be considered for formal EP consultation for possible EPS/RFA. 2. The Takotsubo syndrome The patient has a history of an underlying non-CAD related cardiomyopathy compatible with a Takotsubo syndrome lash apical ballooning interim. Over time her LV systolic function has improved. Her recent noninvasive studies would suggest preserved overall LV systolic function and no obvious evidence of myocardial ischemia to suggest the development of underlying CAD. Thus at the present time she will need to be followed, during the stressful event, for any obvious recurrence of the aforementioned syndrome. She may need , depending upon her clinical course, to be reevaluated with echocardiographic studies, etc. Depending upon her clinical course, if her LV systolic function declines, she may when she is able need to be on additional medical therapy such as beta blockers and DAI inhibitors or ARB's as tolerated. 3. CAD The patient has a history of LAD mild calcification as noted above. She was not described as having angiographically significant appearing CAD. Her recent pharmacologic stress nuclear imaging study would not suggest any obvious hemodynamically significant CAD as she had no obvious evidence of ongoing myocardial ischemia. Thus she should continue risk factor evaluation care as deemed appropriate when she is able. 4. Hyperlipidemia The patient should continue evaluation and medical management as deemed appropriate for her age when she is able. 5. Diabetes mellitus She will need to continue under the care of internal medicine for this. 6. COPD She is being evaluated by internal medicine and pulmonology. 7. Hypothyroidism Again she will need to continue under the care of internal medicine for this. If she remains on amiodarone she will need to have her thyroid functions followed and medications adjusted as deemed appropriate. 8. Colon perforation She is now status post surgical intervention. She is recovering in the ICU. She is being followed by general surgery. 9. Sepsis syndrome This is thought due to her underlying colon perforation. She continues supportive measures in the ICU. 10. Acute renal insufficiency Her creatinine level was markedly elevated upon admission. It appears to be gradually improving. This will be followed as this may impact what medication she may or may not be able to receive. Comment: The above was discussed with the patient's son-in-law as well as Dr. Garrido. This note was generated with [employer] software. It may contain incorrect words, spelling, and punctuation that were not noted in checking the note before signing.
[2018-07-22 23:36] LABS: Bedside Glucose 121 mg/dL (70-110)
[2018-07-23] VITALS (31 sets, daily range): BP systolic 99–150; BP diastolic 49–84; PULSE 66–99; RESP 12–22; TEMP 36.2–36.7; O2SAT 91–100
[2018-07-23 04:12] LABS: Absolute Lymphocyte Count 0.53 X10^3/ul (0.83-4.51); Absolute Neutrophil Count 6.3 X10^3/uL (2.0-7.7); Differential Indicated SCAN CRITERIA MET; Eosinophil# 0.17 X10^3/uL; Eosinophils% 2.3 % (0-5); Hematocrit 24.7 % (37-47); Hemoglobin 8.2 g/dl (12.0-15.0); Lymphocyte # 0.53 X10^3/ul (4.0); Lymphocyte % 7.3 % (19-41); Mean Corp Hgb Conc 33.2 g/gl (32-36); Mean Corpuscular Hgb 31.4 pg (27.0-32.0); Mean Corpuscular Volume 94.6 fL (81-99); Mean Platelet Vol. 8.9 fl (6.2-12.0); Monocyte# 0.23 X10^3/uL; Monocyte% 3.2 % (0-10); Neutrophil # 6.33 X10^3/uL (2.7-7.7); Neutrophil % 87.1 % (47-70); POSITIVE COUNT NO; POSITIVE DIFFERENTIAL YES; POSITIVE MORPHOLOGY NO; Platelet Count 124 K/mm3 (150-450); RBC Distribution Width CV 15.2 % (11.6-14.6); RBC Distribution Width SD 52.4 fl (35.1-43.9); Red Blood Count 2.61 M/mm3 (4.2-5.4); White Blood Count 7.3 K/mm3 (4.4-11.0)
[2018-07-23 04:27] LABS: Anion Gap 10 (5-15); BUN 32 mg/dL (7-18); BUN/Creat Ratio 16.4 RATIO (10-20); Calcium,Total 7.7 mg/dL (8.5-10.1); Chloride 111 mmol/L (98-107); Creatinine, Serum 1.95 mg/dL (0.55-1.02); EST Glomerular Filtration Rate 26 mL/min (>60); Est Glom Filt Rate - Afr Amer 32 mL/min (>60); Estimated Creatinine Clearance 21.18 ml/min; Glucose 136 mg/dL (74-106); Magnesium 2.1 mg/dL (1.6-2.6); Phosphorus 2.8 mg/dL (2.5-4.9); Potassium 3.8 mmol/L (3.5-5.1); Sodium Level 140 mmol/L (136-145)
[2018-07-23 04:32] LABS: Differential Comment SCANNED
[2018-07-23 05:41] LABS: Bedside Glucose 130 mg/dL (70-110)
[2018-07-23] MEDS: Furosemide 40 MG/4 ML Vial IV ×2 (06:16→16:48)
[2018-07-23] MEDS: CHLORHEXIDINE GLUC 2% CLOTH 1 EACH TOWELETTE TOPICAL (06:16)
[2018-07-23 06:26] LABS: Allen Test POS; Base Excess -9 mmol/L (-2 to +2); Bicarbonate 16.5 mmol/L (22-26); Blood Gas Specimen Type ART; FI02 30; Mode CPAP PS; O2 Delivery Device Vent; PEEP 5; PO2 71 mmHG (75-100); PS 5; SITE R Radial; SO2 93 % (95-99); Time Given 612; Total Carbon Dioxide 17 mmol/L; pCO2 31.3 mmHg (35-45); pH 7.33 (7.35-7.45)
--- NOTE | 2018-07-23 06:41 | NURSING ---
This RN at bedside for extubation via respiratory therapist at 0640, 2L NC placed; restraints, fentanyl and propofol discontinued, patient tolerated well.
--- NOTE | 2018-07-23 07:03 | PN_ITS ---
Subjective: Patient did well overnight. No acute issues were reported outside of some ventricular trigeminy. Patient was able to be placed on a spontaneous breathing trial this morning and was successfully extubated under my direct supervision. Patient continues to follow commands. No bowel gas or stool has been noted. General: Alert, Cooperative, No apparent distress, - - Appears stated age HEENT: Atraumatic, PERRLA, EOMI, Normocephalic, - - No scleral icterus or injection noted. Oral: Moist Mucosa, No Gingival or Mucosal Lesions/ Ulcerations, - - Right facial droop Neck: Supple, No JVD, No Nodes, Trachea Midline Lungs: No rhonchi, No wheeze, No rales, Diminished, - - Symmetric expansion. No dullness to percussion. Cardiovascular: Normal S1, Normal S2, Irregular Rate, Murmur, No rub noted, No Gallop Abdomen: Soft, Hypoactive Bowel Sounds, Distended - Slightly, Obese, Tender - Only around incisions, - - Ostomy appears pink Extremities: No clubbing, No cyanosis, Capillary Refill Less than 3 Seconds, Edema Skin: - - No significant change compared to previous. Still with serosanguineous drainage around some of the incision Musculoskeletal: No Tenderness to Palpation of Joints or Extremities Lymphatic: No Cervical, Supraclavicular, or Inguinal Adenopathy Neurological: - - Neuro exam is grossly unchanged compared to previous Psych/Mental Status: Normal Affect, Appropriate Vital Signs Temp Pulse Resp BP Pulse Ox 36.7 C 96 12 150/63 H 95 07/23/18 00:00 07/23/18 06:00 07/23/18 06:00 07/23/18 06:00 07/23/18 06:00 Oxygen Flow Rate (L/min) 4 Oxygen Delivery Method Mechanical Ventilator Weight: 91.1 kg Body Mass Index (BMI) 29.2 Intake and Output for Last 24 Hours 07/21/18 07/22/18 07/23/18 23:59 23:59 23:59 Intake Total 7592.1 / 7592.1 3572.3 / 3572.3 347.2 / 347.2 Output Total 764 / 764 3250 / 3250 828 / 828 Balance 6828.1 / 6828.1 322.3 / 322.3 -480.8 / -480.8 Labs (Last 48 Hours) 07/21/18 07/21/18 07/21/18 05:25 05:28 06:55 WBC RBC Hgb Hct MCV MCH MCHC RDW RDW Differential Plt Count MPV Immature Gran % (Auto) Neut % (Auto) Lymph % (Auto) Delta % (Auto) Eos % (Auto) Baso % (Auto) Absolute Neuts (auto) Absolute Lymphs (auto) Total Counted Not Reportable Differential Comment Diff Path Review Reviewed RBC Morphology 1+ Specimen Type Sample Site pH Bicarbonate Actual POC Total CO2 Base Excess O2 Saturation O2 % ABG pCO2 ABG pO2 Cory Test Respiration Rate O2 Delivery Device Vent Mode Tidal Volume POC PEEP POC Pressure Suppt Blood Gas Notified Whom Blood Gas Notified Time Sodium Potassium Chloride Carbon Dioxide Anion Gap BUN Creatinine Estim Creat Clear Calc Est GFR (MDRD) Af Amer Est GFR (MDRD) Non-Af BUN/Creatinine Ratio Glucose Lactic Acid 1.9 Calcium Phosphorus Magnesium Total Bilirubin 0.30 Direct Bilirubin 0.17 AST 20 ALT 11 L Alkaline Phosphatase 72 Troponin I Total Protein 4.5 L Albumin 1.8 L Globulin 2.7 POC Glucose 07/21/18 07/21/18 07/21/18 11:58 17:40 19:49 WBC RBC Hgb Hct MCV MCH MCHC RDW RDW Differential Plt Count MPV Immature Gran % (Auto) Neut % (Auto) Lymph % (Auto) Delta % (Auto) Eos % (Auto) Baso % (Auto) Absolute Neuts (auto) Absolute Lymphs (auto) Total Counted Differential Comment Diff Path Review RBC Morphology Specimen Type Sample Site pH Bicarbonate Actual POC Total CO2 Base Excess O2 Saturation O2 % ABG pCO2 ABG pO2 Cory Test Respiration Rate O2 Delivery Device Vent Mode Tidal Volume POC PEEP POC Pressure Suppt Blood Gas Notified Whom Blood Gas Notified Time Sodium 138 Potassium 4.5 Chloride 112 H Carbon Dioxide 16.0 L Anion Gap 10 BUN 31 H Creatinine 1.59 H Estim Creat Clear Calc 25.98 Est GFR (MDRD) Af Amer 40 L Est GFR (MDRD) Non-Af 33 L BUN/Creatinine Ratio 19.5 Glucose 145 H Lactic Acid Calcium 7.1 L Phosphorus 3.0 Magnesium 2.6 Total Bilirubin Direct Bilirubin AST ALT Alkaline Phosphatase Troponin I Total Protein Albumin Globulin POC Glucose 143 H 139 H 07/21/18 07/22/18 07/22/18 23:48 03:56 04:15 WBC RBC Hgb Hct MCV MCH MCHC RDW RDW Differential Plt Count MPV Immature Gran % (Auto) Neut % (Auto) Lymph % (Auto) Delta % (Auto) Eos % (Auto) Baso % (Auto) Absolute Neuts (auto) Absolute Lymphs (auto) Total Counted Differential Comment Diff Path Review RBC Morphology Specimen Type ART Sample Site R Radial pH 7.24 L Bicarbonate Actual 14.9 L POC Total CO2 16 Base Excess -13 L O2 Saturation 90 L O2 % 30 ABG pCO2 34.6 L ABG pO2 69 L Cory Test POS Respiration Rate 12 O2 Delivery Device Vent Vent Mode A-C Tidal Volume 450 POC PEEP 5 POC Pressure Suppt Blood Gas Notified Whom [facility] Blood Gas Notified Time 358 Sodium 141 Potassium 4.7 Chloride 114 H Carbon Dioxide 18.0 L Anion Gap 9 BUN 32 H Creatinine 1.64 H Estim Creat Clear Calc 25.19 Est GFR (MDRD) Af Amer 39 L Est GFR (MDRD) Non-Af 32 L BUN/Creatinine Ratio 19.5 Glucose 167 H Lactic Acid Calcium 7.5 L Phosphorus Magnesium Total Bilirubin Direct Bilirubin AST ALT Alkaline Phosphatase Troponin I Total Protein Albumin Globulin POC Glucose 144 H 07/22/18 07/22/18 07/22/18 04:15 04:15 04:15 WBC 7.0 RBC 2.94 L Hgb 9.2 L Hct 29.0 L MCV 98.6 MCH 31.3 MCHC 31.7 L RDW 15.1 H RDW Differential 54.2 H Plt Count 163 MPV 8.9 Immature Gran % (Auto) 0.600 Neut % (Auto) 90.2 H Lymph % (Auto) 6.4 L Delta % (Auto) 2.3 Eos % (Auto) 0.4 Baso % (Auto) 0.1 Absolute Neuts (auto) 6.3 Absolute Lymphs (auto) 0.45 L Total Counted Not Reportable Differential Comment Diff Path Review RBC Morphology Specimen Type Sample Site pH Bicarbonate Actual POC Total CO2 Base Excess O2 Saturation O2 % ABG pCO2 ABG pO2 Cory Test Respiration Rate O2 Delivery Device Vent Mode Tidal Volume POC PEEP POC Pressure Suppt Blood Gas Notified Whom Blood Gas Notified Time Sodium Potassium Chloride Carbon Dioxide Anion Gap BUN Creatinine Estim Creat Clear Calc Est GFR (MDRD) Af Amer Est GFR (MDRD) Non-Af BUN/Creatinine Ratio Glucose Lactic Acid Calcium Phosphorus 3.1 Magnesium 2.7 H Total Bilirubin Direct Bilirubin AST ALT Alkaline Phosphatase Troponin I < 0.015 Total Protein Albumin Globulin POC Glucose 07/22/18 07/22/18 07/22/18 06:30 12:04 18:10 WBC RBC Hgb Hct MCV MCH MCHC RDW RDW Differential Plt Count MPV Immature Gran % (Auto) Neut % (Auto) Lymph % (Auto) Delta % (Auto) Eos % (Auto) Baso % (Auto) Absolute Neuts (auto) Absolute Lymphs (auto) Total Counted Differential Comment Diff Path Review RBC Morphology Specimen Type Sample Site pH Bicarbonate Actual POC Total CO2 Base Excess O2 Saturation O2 % ABG pCO2 ABG pO2 Cory Test Respiration Rate O2 Delivery Device Vent Mode Tidal Volume POC PEEP POC Pressure Suppt Blood Gas Notified Whom Blood Gas Notified Time Sodium Potassium Chloride Carbon Dioxide Anion Gap BUN Creatinine Estim Creat Clear Calc Est GFR (MDRD) Af Amer Est GFR (MDRD) Non-Af BUN/Creatinine Ratio Glucose Lactic Acid Calcium Phosphorus Magnesium Total Bilirubin Direct Bilirubin AST ALT Alkaline Phosphatase Troponin I Total Protein Albumin Globulin POC Glucose 160 H 148 H 137 H 07/22/18 07/23/18 07/23/18 23:18 04:00 04:00 WBC 7.3 RBC 2.61 L Hgb 8.2 L Hct 24.7 L MCV 94.6 MCH 31.4 MCHC 33.2 RDW 15.2 H RDW Differential 52.4 H Plt Count 124 L MPV 8.9 Immature Gran % (Auto) 0.100 Neut % (Auto) 87.1 H Lymph % (Auto) 7.3 L Delta % (Auto) 3.2 Eos % (Auto) 2.3 Baso % (Auto) 0.0 Absolute Neuts (auto) 6.3 Absolute Lymphs (auto) 0.53 L Total Counted Not Reportable Differential Comment SCANNED Diff Path Review RBC Morphology Specimen Type Sample Site pH Bicarbonate Actual POC Total CO2 Base Excess O2 Saturation O2 % ABG pCO2 ABG pO2 Cory Test Respiration Rate O2 Delivery Device Vent Mode Tidal Volume POC PEEP POC Pressure Suppt Blood Gas Notified Whom Blood Gas Notified Time Sodium 140 Potassium 3.8 Chloride 111 H Carbon Dioxide 19.0 L Anion Gap 10 BUN 32 H Creatinine 1.95 H Estim Creat Clear Calc 21.18 Est GFR (MDRD) Af Amer 32 L Est GFR (MDRD) Non-Af 26 L BUN/Creatinine Ratio 16.4 Glucose 136 H Lactic Acid Calcium 7.7 L Phosphorus 2.8 Magnesium 2.1 Total Bilirubin Direct Bilirubin AST ALT Alkaline Phosphatase Troponin I Total Protein Albumin Globulin POC Glucose 121 H 07/23/18 07/23/18 05:33 06:21 WBC RBC Hgb Hct MCV MCH MCHC RDW RDW Differential Plt Count MPV Immature Gran % (Auto) Neut % (Auto) Lymph % (Auto) Delta % (Auto) Eos % (Auto) Baso % (Auto) Absolute Neuts (auto) Absolute Lymphs (auto) Total Counted Differential Comment Diff Path Review RBC Morphology Specimen Type ART Sample Site R Radial pH 7.33 L Bicarbonate Actual 16.5 L POC Total CO2 17 Base Excess -9 L O2 Saturation 93 L O2 % 30 ABG pCO2 31.3 L ABG pO2 71 L Cory Test POS Respiration Rate O2 Delivery Device Vent Vent Mode CPAP PS Tidal Volume POC PEEP 5 POC Pressure Suppt 5 Blood Gas Notified Whom ICU MD Blood Gas Notified Time 612 Sodium Potassium Chloride Carbon Dioxide Anion Gap BUN Creatinine Estim Creat Clear Calc Est GFR (MDRD) Af Amer Est GFR (MDRD) Non-Af BUN/Creatinine Ratio Glucose Lactic Acid Calcium Phosphorus Magnesium Total Bilirubin Direct Bilirubin AST ALT Alkaline Phosphatase Troponin I Total Protein Albumin Globulin POC Glucose 130 H Microbiology 07/20/18 09:45 Blood Culture (Wb) - Anticubital Right Blood Culture - Preliminary 07/20/18 12:10 Wound Drainage - Other Gram Stain - Final 07/20/18 12:10 Wound Drainage - Other Wound Culture - Preliminary Escherichia coli Gram negative seng 07/20/18 12:10 Wound Drainage - Other Anaerobic Culture - Preliminary Checking for anaerobes, further studies to follow. Medical Necessity - Tobacco Use Smoking Status: Never smoker Tobacco Use: Non-smoker Assessment/Plan All Active Problems (Last Reviewed 03/01/18 @ 13:10 by Victoria Fu) Large bowel perforation (Acute) Septic shock (Acute) DEMETRA (acute kidney injury) (Acute) Pneumococcal pneumonia (Acute) SVT (supraventricular tachycardia) (Acute) RECOMMENDATIONS: 1. Discontinue propofol. Probable transition to as needed fentanyl 2. Initiate TPN 3. Use diuretic therapy to keep fluid even to -500 cc per day 4. Continue broad-spectrum antibiotics 5. Continue Pulmicort and aerosol therapy IMPRESSIONS: 1. Septic shock secondary to bowel perforation Patient currently on Zosyn therapy. She does not appear to have a penicillin allergy. Patient appears to be responding well to current therapy. Anticipate 10-14 days of total antibiotic therapy. Patient does not appear to have bowel ability at this time. Clear drainage from the wound likely secondary to extravasation of fluid. This does not appear purulent. 2. Acute hypoxic respiratory failure/history of COPD Patient does have a history of COPD in the past. Continue with bronchodilators and Pulmicort for substitution of Advair. Chest x-ray shows only areas of atelectasis, which were likely secondary to abdominal pain. Patient successfully extubated. Will likely require fentanyl for pain control. Encourage incentive spirometer. 3. Diabetes mellitus Patient will be n.p.o. given acute surgical intervention. Following with sliding scale insulin is likely appropriate at this time. Need to initiate basal insulin with TPN. 4. Acute on chronic kidney disease stage III Slightly worse creatinine compared to previous. Patient was actually positive by 300 cc, but has some reported weight loss. No incontinence has been reported. Patient is still up approximately 9 kg from presentation. Will need to watch fluid status closely. Continue to support blood pressure. We will continue to monitor and replace electrolytes as necessary. 5. History of CVA/hyperlipidemia/hypothyroidism/osteoarthritis/multiple surgeries/multiple allergies/advanced age Complicates care, management, recovery and prognosis. Patient does have a right facial droop at baseline. Hold medications for now. Possibly reinitiate Synthroid once patient has bowel function. Hold baseline hypertensive medications. TIME: 34 minutes critical care time spent addressing patient's septic shock, acute respiratory failure, diabetes mellitus, acute kidney injury, review of all data and collaboration with care team (6 AM to 7 AM) Code Visit [id number]: [id number] Critical care first hour
[2018-07-23] MEDS: Ipratropium/Albuterol Sulfate 3 ML AMPUL.NEB INHALATION (07:07)
[2018-07-23] MEDS: Budesonide Respules 0.5 MG/2 ML AMPUL.NEB. INHALATION ×2 (07:07→18:57)
--- NOTE | 2018-07-23 07:25 | PCM.PN.HOSP ---
Patient Problems: Active and Suspected Problems (Last Reviewed 03/01/18 @ 13:10 by Victoria Fu) Large bowel perforation (Acute) Septic shock (Acute) Subjective: Patient seen and examined. She has been extubated. Confused, keeps repeating answers to questions. Objective: Physical Exam General: Alert, confused, oriented to person only, not pale or jaundiced. HEENT: Atraumatic, PERRLA, EOMI, Normocephalic, Oral: Dry Mucosa Neck: Supple, No JVD, Negative Carotid Bruits Lungs: Clear to auscultation, Normal air movement Cardiovascular: Regular rate, Regular Rhythm, Normal S1, Normal S2, No murmurs Abdomen: Bowel Sounds Present, Soft, Non Tender, Non-Distended, - - Left-sided colostomy, midline dressing intact, abdomen soft Extremities: No edema Skin: No rashes, No breakdown Musculoskeletal: No Tenderness to Palpation of Joints or Extremities Lymphatic: No Cervical, Supraclavicular, or Inguinal Adenopathy Neurological: Cranial nerves II-XII grossly intact except for right facial droop present on admission, Neuro grossly intact Psych/Mental Status: Normal Affect, Appropriate Vitals/I&O's: Vital Signs Temp Pulse Resp BP Pulse Ox 98.1 F 96 12 150/63 H 95 07/23/18 00:00 07/23/18 06:00 07/23/18 06:00 07/23/18 06:00 07/23/18 06:00 Oxygen Flow Rate (L/min) 4 Oxygen Delivery Method Mechanical Ventilator Weight: 91.1 kg Body Mass Index (BMI) 29.2 Intake and Output for Last 24 Hours 07/21/18 07/22/18 07/23/18 23:59 23:59 23:59 Intake Total 7592.1 / 7592.1 3572.3 / 3572.3 347.2 / 347.2 Output Total 764 / 764 3250 / 3250 828 / 828 Balance 6828.1 / 6828.1 322.3 / 322.3 -480.8 / -480.8 Microbiology Past 72 Hours 07/20/18 09:45 Blood Culture (Wb) - Anticubital Right Blood Culture - Preliminary 07/20/18 12:10 Wound Drainage - Other Gram Stain - Final 07/20/18 12:10 Wound Drainage - Other Wound Culture - Preliminary Escherichia coli Gram negative seng 07/20/18 12:10 Wound Drainage - Other Anaerobic Culture - Preliminary Checking for anaerobes, further studies to follow. Laboratory Results 07/22/18 04:15: Troponin I < 0.015 07/22/18 12:04: POC Glucose 148 H 07/22/18 18:10: POC Glucose 137 H 07/22/18 23:18: POC Glucose 121 H 07/23/18 04:00: WBC 7.3, RBC 2.61 L, Hgb 8.2 L, Hct 24.7 L, MCV 94.6, MCH 31.4, MCHC 33.2, RDW 15.2 H, RDW Differential 52.4 H, Plt Count 124 L, MPV 8.9, Immature Gran % (Auto) 0.100, Neut % (Auto) 87.1 H, Lymph % (Auto) 7.3 L, Sterling % (Auto) 3.2, Eos % (Auto) 2.3, Baso % (Auto) 0.0, Absolute Neuts (auto) 6.3, Absolute Lymphs (auto) 0.53 L, Total Counted Not Reportable, Differential Comment SCANNED 07/23/18 04:00: Sodium 140, Potassium 3.8, Chloride 111 H, Carbon Dioxide 19.0 L, Anion Gap 10, BUN 32 H, Creatinine 1.95 H, Estim Creat Clear Calc 21.18, Est GFR (MDRD) Af Amer 32 L, Est GFR (MDRD) Non-Af 26 L, BUN/Creatinine Ratio 16.4, Glucose 136 H, Calcium 7.7 L, Phosphorus 2.8, Magnesium 2.1 07/23/18 05:33: POC Glucose 130 H 07/23/18 06:21: Specimen Type ART, Sample Site R Radial, pH 7.33 L, Bicarbonate Actual 16.5 L, POC Total CO2 17, Base Excess -9 L, O2 Saturation 93 L, O2 % 30, ABG pCO2 31.3 L, ABG pO2 71 L, Cory Test POS, O2 Delivery Device Vent, Vent Mode CPAP PS, POC PEEP 5, POC Pressure Suppt 5, Blood Gas Notified Whom ICU MD, Blood Gas Notified Time 612 Current Medications Acetaminophen (Tylenol) 650 mg PO Q6H PRN PRN PRN Reason: Mild Pain (1-3)/Temp > 100.7 F Albuterol/Ipratropium (Duoneb) 3 ml INHALATION Q4H.RT PRN PRN Reason: SHORTNESS OF BREATH Last Admin: 07/23/18 07:07 Dose: 3 ml Budesonide (Pulmicort Aerosol) 0.5 mg INHALATION BID.RT [facility]ICKSON Last Admin: 07/23/18 07:07 Dose: 0.5 mg Chlorhexidine Gluconate () 1 each TOPICAL DAILY DICKSON Last Admin: 07/23/18 06:16 Dose: 1 each Dextrose (D50w Syringe) 0 gm IV X1 PRN; Protocol PRN Reason: Hypoglycemia Glucagon () 1 mg IM .X1 PRN PRN Reason: Hypoglycemia Heparin Sodium (Porcine) (Heparin Na) 5,000 unit SC BID [facility] Last Admin: 07/22/18 21:50 Dose: 5,000 unit Norepinephrine Bitartrate 8 mg (/ Dextrose) 258 mls @ 9.67 mls/hr IV .[id number] DICKSON PRN Reason: 5 MCG/MIN Last Admin: 07/22/18 20:18 Dose: Not Given Piperacillin Sod/Tazobactam Sod (Zosyn) 3.375 gm in 50 mls @ 12.5 mls/hr IV Q12 [facility] Last Admin: 07/22/18 21:50 Dose: 12.5 mls/hr Pantoprazole Sodium 40 mg/ (Sodium Chloride) 110 mls @ 330 mls/hr IV Q12 [facility] Last Admin: 07/22/18 21:50 Dose: 330 mls/hr Sodium Chloride () 250 mls @ 15 mls/hr IV .[id number] PRN PRN Reason: SALINE FLUSH Last Admin: 07/21/18 09:47 Dose: 15 mls/hr Sodium Chloride () 250 mls @ 15 mls/hr IV .[id number] PRN PRN Reason: SALINE FLUSH Vasopressin 40 units/ Sodium (Chloride) 52 mls @ 3.12 mls/hr IV .[id number] DICKSON PRN Reason: 0.04 UNITS/MIN Last Admin: 07/23/18 03:51 Dose: Not Given Amiodarone HCl/Dextrose (Nexterone 360 Mg/200 Ml Bag) 360 mg in 200 mls @ 16.667 mls/hr CONT INF .Q12H [facility] PRN Reason: 0.5 MG/MIN Last Admin: 07/22/18 21:37 Dose: 16.667 mls/hr Insulin Human Lispro (Humalog Kwikpen (Bkc)) 0 unit SC Q6 [facility] PRN Reason: Protocol Last Admin: 07/23/18 05:40 Dose: Not Given Magnesium Hydroxide (Milk Of Magnesia) 30 ml PO DAILY PRN PRN PRN Reason: Constipation Metoprolol Tartrate (Lopressor (Beta Jose)) 5 mg IV Q6 PRN PRN Reason: TO CONTROL HEART RATE Last Admin: 07/21/18 19:35 Dose: 2.5 mg Ondansetron HCl (Zofran) 4 mg IV Q8H PRN PRN PRN Reason: NAUSEA Sodium Chloride () 10 - 40 ml IV UD PRN PRN Reason: MULTILUMEN/HICMAN CATH FLUSH Last Admin: 07/23/18 06:16 Dose: 10 ml Medical Necessity - Tobacco Use Smoking Status: Never smoker Tobacco Use: Non-smoker Assessment/Plan All Active Problems (Last Reviewed 03/01/18 @ 13:10 by Victoria Fu) Large bowel perforation (Acute) Septic shock (Acute) DEMETRA (acute kidney injury) (Acute) Pneumococcal pneumonia (Acute) SVT (supraventricular tachycardia) (Acute) 82 year old F with multiple comorbidities significant for Takusubo cardiomyopathy with SVTs, hypertension, type II DM, resident in a snf admitted with complaints of confusion and not feeling well as well as being diaphoretic. 1. Septic shock secondary to acute peritonitis secondary to perforated descending colon, status post surgery, resolved Blood cultures growing Clostridium clostridioforme, wound and urine cultures growing E. Coli on IV Unasyn, day 3, will repeat blood cultures, continue to monitor 2. Postop day #3 status post exploratory laparotomy, colon resection and end colostomy, blood in the colostomy bag, started on TPN, on as needed Tylenol, 3. DEMETRA secondary to septic shock, likely elevated secondary to being off IV fluids 4. History of SVT, off Cardizem and metoprolol, cardiology ff, on prn metoprolol 5. Acute respiratory failure, patient electively intubated for surgery, resolving, on 3L oxygen 6. Type II DM, still n.p.o., blood sugars are fairly controlled, will continue with Accu-Cheks every 6hrs with insulin sliding scale 7. Hypertension, will continue with prn metoprolol 8. COPD, not in acute exacerbation 9. Hypothyroidism, on Synthroid, meds on hold 10. DVT PPx- Heparin SC Code Visit Inpatient E&M: 73903 Subs Hosp L2
--- NOTE | 2018-07-23 07:54 | NURSING ---
In to reassess the stoma. there is less edema noted. stoma is pink and moist. there is a small amount of serosanguineous drainage noted in the pouch. No flatus or stool noted yet. patient was extubated this am and appears comfortable at this time. midline abdominal dressing changed. see wound assessment. pt tolerated well.
--- NOTE | 2018-07-23 08:28 | PCM.PN.SRG ---
Patient Problems: Active and Suspected Problems (Last Reviewed 03/01/18 @ 13:10 by Victoria Fu) Large bowel perforation (Acute) Septic shock (Acute) Subjective: Patient extubated this morning, denies any abdominal pain, no flatus in bag or stool, TPN planned to be started on rounds this morning - Physical Exam General: Alert, Cooperative, No apparent distress HEENT: Atraumatic Cardiovascular: Regular rate Abdomen: Soft, Non Tender, Non-Distended, - - Incision clean dry and intact with yuriy, colostomy no flatus or stool in the bag, mild edema Vital Signs Temp Pulse Resp BP Pulse Ox 98.1 F 96 12 150/63 H 95 07/23/18 00:00 07/23/18 06:00 07/23/18 06:00 07/23/18 06:00 07/23/18 06:00 Oxygen Flow Rate (L/min) 4 Oxygen Delivery Method Mechanical Ventilator Weight: 200 lb 13.458 oz Body Mass Index (BMI) 29.2 Intake and Output for Last 24 Hours 07/21/18 07/22/18 07/23/18 23:59 23:59 23:59 Intake Total 7592.1 / 7592.1 3572.3 / 3572.3 347.2 / 347.2 Output Total 764 / 764 3250 / 3250 828 / 828 Balance 6828.1 / 6828.1 322.3 / 322.3 -480.8 / -480.8 Microbiology Past 72 Hours 07/20/18 12:10 Gram Stain - Final Wound Drainage - Other Wound Culture - Preliminary Escherichia coli Anaerobic Culture - Preliminary Checking for anaerobes, further studies to follow. 07/20/18 09:45 Blood Culture - Preliminary Blood Culture (Wb) - Anticubital Right Clostridium clostridioforme Laboratory Tests Past 24 Hrs 07/23/18 07/23/18 07/23/18 04:00 04:00 06:21 WBC 7.3 RBC 2.61 L Hgb 8.2 L Hct 24.7 L MCV 94.6 MCH 31.4 MCHC 33.2 RDW 15.2 H RDW Differential 52.4 H Plt Count 124 L MPV 8.9 Immature Gran % (Auto) 0.100 Neut % (Auto) 87.1 H Lymph % (Auto) 7.3 L Dawson % (Auto) 3.2 Eos % (Auto) 2.3 Baso % (Auto) 0.0 Absolute Neuts (auto) 6.3 Absolute Lymphs (auto) 0.53 L Total Counted Not Reportable Differential Comment SCANNED Specimen Type ART Sample Site R Radial pH 7.33 L Bicarbonate Actual 16.5 L POC Total CO2 17 Base Excess -9 L O2 Saturation 93 L O2 % 30 ABG pCO2 31.3 L ABG pO2 71 L Cory Test POS O2 Delivery Device Vent Vent Mode CPAP PS POC PEEP 5 POC Pressure Suppt 5 Blood Gas Notified Whom ICU Blood Gas Notified Time 612 Sodium 140 Potassium 3.8 Chloride 111 H Carbon Dioxide 19.0 L Anion Gap 10 BUN 32 H Creatinine 1.95 H Estim Creat Clear Calc 21.18 Est GFR (MDRD) Af Amer 32 L Est GFR (MDRD) Non-Af 26 L BUN/Creatinine Ratio 16.4 Glucose 136 H Calcium 7.7 L Phosphorus 2.8 Magnesium 2.1 POC Glucose 07/23/18 07/22/18 07/22/18 05:33 23:18 18:10 POC Glucose 130 H 121 H 137 H 07/22/18 12:04 POC Glucose 148 H Medical Necessity - Tobacco Use Smoking Status: Never smoker Tobacco Use: Non-smoker Assessment/Plan All Active Problems (Last Reviewed 03/01/18 @ 13:10 by Victoria Fu) Large bowel perforation (Acute) Septic shock (Acute) DEMETRA (acute kidney injury) (Acute) Pneumococcal pneumonia (Acute) SVT (supraventricular tachycardia) (Acute) 82-year-old female with pneumoperitoneum from perforated splenic flexure of the colon POD#3 s/p ex lap, L colon resection, end colostomy; septic shock, history of COPD, diabetes, elevated lactic acid-resolved, tachycardia-resolved 1. Patient extubated this morning. 2. Tachycardia-resolved, on amiodarone drip per ICU 3. Colostomy-mild edema continue to monitor. Okay for diet once patient has flatus and colostomy bag. Started TPN on rounds today for nutrition. 4. Elevated creatinine-patient will be started on TPN for nutrition and hydration. Appreciate ICU and hospitalist assistance with this patients care. Dr. Church will be covering for me this weekend. Aurora Young M.D. Pager: [phone] [facility] [address] [place] [address], [address] [place] [address] Office: [phone]
--- NOTE | 2018-07-23 08:31 | PN.SURG_ITS ---
Patient Problems: Active and Suspected Problems (Last Reviewed 03/01/18 @ 13:10 by Victoria Fu) Large bowel perforation (Acute) Septic shock (Acute) Subjective: Patient extubated this morning, denies any abdominal pain, no flatus in bag or stool, TPN planned to be started on rounds this morning - Physical Exam General: Alert, Cooperative, No apparent distress HEENT: Atraumatic Cardiovascular: Regular rate Abdomen: Soft, Non Tender, Non-Distended, - - Incision clean dry and intact with yuriy, colostomy no flatus or stool in the bag, mild edema Vital Signs Temp Pulse Resp BP Pulse Ox 98.1 F 96 12 150/63 H 95 07/23/18 00:00 07/23/18 06:00 07/23/18 06:00 07/23/18 06:00 07/23/18 06:00 Oxygen Flow Rate (L/min) 4 Oxygen Delivery Method Mechanical Ventilator Weight: 200 lb 13.458 oz Body Mass Index (BMI) 29.2 Intake and Output for Last 24 Hours 07/21/18 07/22/18 07/23/18 23:59 23:59 23:59 Intake Total 7592.1 / 7592.1 3572.3 / 3572.3 347.2 / 347.2 Output Total 764 / 764 3250 / 3250 828 / 828 Balance 6828.1 / 6828.1 322.3 / 322.3 -480.8 / -480.8 Microbiology Past 72 Hours 07/20/18 12:10 Gram Stain - Final Wound Drainage - Other Wound Culture - Preliminary Escherichia coli Anaerobic Culture - Preliminary Checking for anaerobes, further studies to follow. 07/20/18 09:45 Blood Culture - Preliminary Blood Culture (Wb) - Anticubital Right Clostridium clostridioforme Laboratory Tests Past 24 Hrs 07/23/18 07/23/18 07/23/18 04:00 04:00 06:21 WBC 7.3 RBC 2.61 L Hgb 8.2 L Hct 24.7 L MCV 94.6 MCH 31.4 MCHC 33.2 RDW 15.2 H RDW Differential 52.4 H Plt Count 124 L MPV 8.9 Immature Gran % (Auto) 0.100 Neut % (Auto) 87.1 H Lymph % (Auto) 7.3 L [place] % (Auto) 3.2 Eos % (Auto) 2.3 Baso % (Auto) 0.0 Absolute Neuts (auto) 6.3 Absolute Lymphs (auto) 0.53 L Total Counted Not Reportable Differential Comment SCANNED Specimen Type ART Sample Site R Radial pH 7.33 L Bicarbonate Actual 16.5 L POC Total CO2 17 Base Excess -9 L O2 Saturation 93 L O2 % 30 ABG pCO2 31.3 L ABG pO2 71 L Cory Test POS O2 Delivery Device Vent Vent Mode CPAP PS POC PEEP 5 POC Pressure Suppt 5 Blood Gas Notified Whom ICU Blood Gas Notified Time 612 Sodium 140 Potassium 3.8 Chloride 111 H Carbon Dioxide 19.0 L Anion Gap 10 BUN 32 H Creatinine 1.95 H Estim Creat Clear Calc 21.18 Est GFR (MDRD) Af Amer 32 L Est GFR (MDRD) Non-Af 26 L BUN/Creatinine Ratio 16.4 Glucose 136 H Calcium 7.7 L Phosphorus 2.8 Magnesium 2.1 POC Glucose 07/23/18 07/22/18 07/22/18 05:33 23:18 18:10 POC Glucose 130 H 121 H 137 H 07/22/18 12:04 POC Glucose 148 H Medical Necessity - Tobacco Use Smoking Status: Never smoker Tobacco Use: Non-smoker Assessment/Plan All Active Problems (Last Reviewed 03/01/18 @ 13:10 by Victoria Fu) Large bowel perforation (Acute) Septic shock (Acute) DEMETRA (acute kidney injury) (Acute) Pneumococcal pneumonia (Acute) SVT (supraventricular tachycardia) (Acute) 82-year-old female with pneumoperitoneum from perforated splenic flexure of the colon POD#3 s/p ex lap, L colon resection, end colostomy; septic shock, history of COPD, diabetes, elevated lactic acid-resolved, tachycardia-resolved 1. Patient extubated this morning. 2. Tachycardia-resolved, on amiodarone drip per ICU 3. Colostomy-mild edema continue to monitor. Okay for diet once patient has flatus and colostomy bag. Started TPN on rounds today for nutrition. 4. Elevated creatinine-patient will be started on TPN for nutrition and hydration. Appreciate ICU and hospitalist assistance with this patients care. Dr. Church will be covering for me this weekend. Aurora Young M.D. Pager: [phone] [facility] [address] [place] [address], [address] [place] [address] Office: [phone]
[2018-07-23] MEDS: Chlorhexidine 15 ML PO (08:40)
[2018-07-23] MEDS: Heparin Injection (Vial) 5,000 UNIT/ML VIAL 5000 UNIT SC ×2 (08:43→21:01)
--- NOTE | 2018-07-23 09:42 | CASEMGMT ---
Patient was extubated today. She will be on TPN until her bowels move then she can have food by mouth. PHILLIP called Stella at [facility] and left her a message letting her know this information. PHILLIP also faxed updates. Plan: d/c to [facility] residential facility when ready. Mairsel WHITE MSW
[2018-07-23] MEDS: Insulin Lispro 100 UNIT/ML INSULN.PEN SC ×3 (12:00→23:48)
[2018-07-23 12:10] LABS: Bedside Glucose 162 mg/dL (70-110)
[2018-07-23] MEDS: Fat Emulsions 20% 250 ML IV (15:56)
[2018-07-23 16:26] LABS: Bedside Glucose 180 mg/dL (70-110)
--- NOTE | 2018-07-23 18:45 | PCM.PN.CARD ---
Subjectve: The patient is presently extubated. She denies any ongoing chest discomfort. She denies any acute shortness of breath or dyspnea. Objective: Vital Signs Temp Pulse Resp BP Pulse Ox 97.9 F 83 17 107/61 99 07/23/18 16:00 07/23/18 18:00 07/23/18 18:00 07/23/18 18:00 07/23/18 17:00 Oxygen Flow Rate (L/min) 3 Oxygen Delivery Method Nasal Cannula Weight: 200 lb 13.458 oz Body Mass Index (BMI) 29.2 Intake and Output for Last 24 Hours 07/21/18 07/22/18 07/23/18 23:59 23:59 23:59 Intake Total 7592.1 / 7592.1 3572.3 / 3572.3 856.2 / 856.2 Output Total 764 / 764 3250 / 3250 3628 / 3628 Balance 6828.1 / 6828.1 322.3 / 322.3 -2771.8 / -2771.8 General: Awake, Cooperative, No Acute Distress Neck: No JVD Lungs: Rhonchi Cardiovascular: Regular Rhythm, Premature Ectopic Beats, Normal S1, Normal S2 Abdomen: Hypoactive Bowel Sounds 07/23/18 04:00: WBC 7.3, RBC 2.61 L, Hgb 8.2 L, Hct 24.7 L, MCV 94.6, MCH 31.4, MCHC 33.2, RDW 15.2 H, RDW Differential 52.4 H, Plt Count 124 L, MPV 8.9, Immature Gran % (Auto) 0.100, Neut % (Auto) 87.1 H, Lymph % (Auto) 7.3 L, [place] % (Auto) 3.2, Eos % (Auto) 2.3, Baso % (Auto) 0.0, Absolute Neuts (auto) 6.3, Total Counted Not Reportable 07/23/18 04:00: Sodium 140, Potassium 3.8, Chloride 111 H, Carbon Dioxide 19.0 L, Anion Gap 10, BUN 32 H, Creatinine 1.95 H, Est GFR (MDRD) Af Amer 32 L, Est GFR (MDRD) Non-Af 26 L, BUN/Creatinine Ratio 16.4, Glucose 136 H, Calcium 7.7 L, Phosphorus 2.8, Magnesium 2.1 07/23/18 06:21: pH 7.33 L, Bicarbonate Actual 16.5 L, POC Total CO2 17, Base Excess -9 L, O2 Saturation 93 L, ABG pCO2 31.3 L, ABG pO2 71 L, Cory Test POS Rhythm: Sinus rhythm; PVCs Medical Necessity - Tobacco Use Smoking Status: Never smoker Tobacco Use: Non-smoker Assessment/Plan 1. Supraventricular tachycardia The patient has had recurrent supraventricular tachycardia. Based upon her cardiac rhythm strips it appears she has had evidence of a potential atrial flutter as well as a supraventricular tachycardia with aberrancy-responsive to IV adenosine therapy. 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 Her current recurrent supraventricular tachycardia may be exacerbated by her underlying acute noncardiac condition/sepsis syndrome. As she is able to take oral medications hopefully she can resume rate limiting therapy. In the interim she is on antiarrhythmic therapy with IV amiodarone. Thus far this appears to been assisting with her rate and rhythm control. Over time, based upon her recurrent episodes, she may also need to be considered for formal EP consultation for possible EPS/RFA. 2. Takotsubo syndrome The patient has a history of an underlying non-CAD related cardiomyopathy compatible with a Takotsubo syndrome lash apical ballooning interim. Over time her LV systolic function has improved. Her recent noninvasive studies would suggest preserved overall LV systolic function and no obvious evidence of myocardial ischemia to suggest the development of underlying CAD. Thus at the present time she will need to be followed, during the stressful event, for any obvious recurrence of the aforementioned syndrome. She may need, depending upon her clinical course, to be reevaluated with echocardiographic studies, etc. Depending upon her clinical course, if her LV systolic function declines, she may when she is able need to be on additional medical therapy such as beta blockers and DAI inhibitors or ARB's as tolerated. 3. CAD The patient has a history of LAD mild calcification as noted above. She was not described as having angiographically significant appearing CAD. Her recent pharmacologic stress nuclear imaging study would not suggest any obvious hemodynamically significant CAD as she had no obvious evidence of ongoing myocardial ischemia. Thus she should continue risk factor evaluation care as deemed appropriate when she is able. 4. Hyperlipidemia The patient should continue evaluation and medical management as deemed appropriate for her age when she is able. 5. Diabetes mellitus She will need to continue under the care of internal medicine for this. 6. COPD She is being evaluated by internal medicine and pulmonology. 7. Hypothyroidism Again she will need to continue under the care of internal medicine for this. If she remains on amiodarone she will need to have her thyroid functions followed and medications adjusted as deemed appropriate. 8. Colon perforation She is now status post surgical intervention. She is recovering in the ICU. She is being followed by general surgery. 9. Sepsis syndrome This is thought due to her underlying colon perforation. She continues supportive measures in the ICU. 10. Acute renal insufficiency Her creatinine level was markedly elevated upon admission. Her renal function has improved however it does wax and wane. This note was generated with [employer] dictation software. It may contain incorrect words, spelling, and punctuation that were not noted in checking the note before signing.
--- NOTE | 2018-07-23 18:49 | PN.CARD_ITS ---
Subjectve: The patient is presently extubated. She denies any ongoing chest discomfort. She denies any acute shortness of breath or dyspnea. Objective: Vital Signs Temp Pulse Resp BP Pulse Ox 97.9 F 83 17 107/61 99 07/23/18 16:00 07/23/18 18:00 07/23/18 18:00 07/23/18 18:00 07/23/18 17:00 Oxygen Flow Rate (L/min) 3 Oxygen Delivery Method Nasal Cannula Weight: 200 lb 13.458 oz Body Mass Index (BMI) 29.2 Intake and Output for Last 24 Hours 07/21/18 07/22/18 07/23/18 23:59 23:59 23:59 Intake Total 7592.1 / 7592.1 3572.3 / 3572.3 856.2 / 856.2 Output Total 764 / 764 3250 / 3250 3628 / 3628 Balance 6828.1 / 6828.1 322.3 / 322.3 -2771.8 / -2771.8 General: Awake, Cooperative, No Acute Distress Neck: No JVD Lungs: Rhonchi Cardiovascular: Regular Rhythm, Premature Ectopic Beats, Normal S1, Normal S2 Abdomen: Hypoactive Bowel Sounds 07/23/18 04:00: WBC 7.3, RBC 2.61 L, Hgb 8.2 L, Hct 24.7 L, MCV 94.6, MCH 31.4, MCHC 33.2, RDW 15.2 H, RDW Differential 52.4 H, Plt Count 124 L, MPV 8.9, Immature Gran % (Auto) 0.100, Neut % (Auto) 87.1 H, Lymph % (Auto) 7.3 L, [place] % (Auto) 3.2, Eos % (Auto) 2.3, Baso % (Auto) 0.0, Absolute Neuts (auto) 6.3, Total Counted Not Reportable 07/23/18 04:00: Sodium 140, Potassium 3.8, Chloride 111 H, Carbon Dioxide 19.0 L , Anion Gap 10, BUN 32 H, Creatinine 1.95 H, Est GFR (MDRD) Af Amer 32 L, Est GFR (MDRD) Non-Af 26 L, BUN/Creatinine Ratio 16.4, Glucose 136 H, Calcium 7.7 L , Phosphorus 2.8, Magnesium 2.1 07/23/18 06:21: pH 7.33 L, Bicarbonate Actual 16.5 L, POC Total CO2 17, Base Excess -9 L, O2 Saturation 93 L, ABG pCO2 31.3 L, ABG pO2 71 L, Cory Test POS Rhythm: Sinus rhythm; PVCs Medical Necessity - Tobacco Use Smoking Status: Never smoker Tobacco Use: Non-smoker Assessment/Plan 1. Supraventricular tachycardia The patient has had recurrent supraventricular tachycardia. Based upon her cardiac rhythm strips it appears she has had evidence of a potential atrial flutter as well as a supraventricular tachycardia with aberrancy-responsive to IV adenosine therapy. 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 Her current recurrent supraventricular tachycardia may be exacerbated by her underlying acute noncardiac condition/sepsis syndrome. As she is able to take oral medications hopefully she can resume rate limiting therapy. In the interim she is on antiarrhythmic therapy with IV amiodarone. Thus far this appears to been assisting with her rate and rhythm control. Over time, based upon her recurrent episodes, she may also need to be considered for formal EP consultation for possible EPS/RFA. 2. Takotsubo syndrome The patient has a history of an underlying non-CAD related cardiomyopathy compatible with a Takotsubo syndrome lash apical ballooning interim. Over time her LV systolic function has improved. Her recent noninvasive studies would suggest preserved overall LV systolic function and no obvious evidence of myocardial ischemia to suggest the development of underlying CAD. Thus at the present time she will need to be followed, during the stressful event, for any obvious recurrence of the aforementioned syndrome. She may need , depending upon her clinical course, to be reevaluated with echocardiographic studies, etc. Depending upon her clinical course, if her LV systolic function declines, she may when she is able need to be on additional medical therapy such as beta blockers and DAI inhibitors or ARB's as tolerated. 3. CAD The patient has a history of LAD mild calcification as noted above. She was not described as having angiographically significant appearing CAD. Her recent pharmacologic stress nuclear imaging study would not suggest any obvious hemodynamically significant CAD as she had no obvious evidence of ongoing myocardial ischemia. Thus she should continue risk factor evaluation care as deemed appropriate when she is able. 4. Hyperlipidemia The patient should continue evaluation and medical management as deemed appropriate for her age when she is able. 5. Diabetes mellitus She will need to continue under the care of internal medicine for this. 6. COPD She is being evaluated by internal medicine and pulmonology. 7. Hypothyroidism Again she will need to continue under the care of internal medicine for this. If she remains on amiodarone she will need to have her thyroid functions followed and medications adjusted as deemed appropriate. 8. Colon perforation She is now status post surgical intervention. She is recovering in the ICU. She is being followed by general surgery. 9. Sepsis syndrome This is thought due to her underlying colon perforation. She continues supportive measures in the ICU. 10. Acute renal insufficiency Her creatinine level was markedly elevated upon admission. Her renal function has improved however it does wax and wane. This note was generated with [employer] dictation software. It may contain incorrect words, spelling, and punctuation that were not noted in checking the note before signing.
[2018-07-24] VITALS (27 sets, daily range): BP systolic 96–167; BP diastolic 40–77; PULSE 68–90; RESP 14–92; TEMP 36.5–36.7; O2SAT 92–100
[2018-07-24 04:13] LABS: Absolute Lymphocyte Count 0.36 X10^3/ul (0.83-4.51); Absolute Neutrophil Count 4.6 X10^3/uL (2.0-7.7); Basophil# 0.01 X10^3/uL; Basophil% 0.2 % (0-1); Differential Indicated SCAN CRITERIA MET; Eosinophil# 0.14 X10^3/uL; Eosinophils% 2.5 % (0-5); Hematocrit 27.6 % (37-47); Hemoglobin 9.1 g/dl (12.0-15.0); Lymphocyte # 0.36 X10^3/ul (4.0); Lymphocyte % 6.4 % (19-41); Mean Corpuscular Hgb 31.1 pg (27.0-32.0); Mean Corpuscular Volume 94.2 fL (81-99); Mean Platelet Vol. 9.3 fl (6.2-12.0); Monocyte# 0.45 X10^3/uL; Neutrophil # 4.64 X10^3/uL (2.7-7.7); Neutrophil % 82.7 % (47-70); POSITIVE COUNT NO; POSITIVE DIFFERENTIAL YES; POSITIVE MORPHOLOGY NO; Platelet Count 118 K/mm3 (150-450); RBC Distribution Width CV 15.3 % (11.6-14.6); RBC Distribution Width SD 52.8 fl (35.1-43.9); Red Blood Count 2.93 M/mm3 (4.2-5.4); White Blood Count 5.6 K/mm3 (4.4-11.0)
[2018-07-24 04:26] LABS: Magnesium 1.8 mg/dL (1.6-2.6); Phosphorus 3.1 mg/dL (2.5-4.9)
[2018-07-24 04:44] LABS: Anion Gap 11 (5-15); BUN 36 mg/dL (7-18); BUN/Creat Ratio 18.2 RATIO (10-20); Calcium,Total 7.9 mg/dL (8.5-10.1); Chloride 106 mmol/L (98-107); Creatinine, Serum 1.98 mg/dL (0.55-1.02); EST Glomerular Filtration Rate 26 mL/min (>60); Est Glom Filt Rate - Afr Amer 31 mL/min (>60); Estimated Creatinine Clearance 20.86 ml/min; Glucose 435 mg/dL (74-106); Potassium 3.3 mmol/L (3.5-5.1); Sodium Level 141 mmol/L (136-145)
[2018-07-24] MEDS: Insulin Lispro 100 UNIT/ML INSULN.PEN SC ×3 (05:18→17:20)
[2018-07-24] MEDS: CHLORHEXIDINE GLUC 2% CLOTH 1 EACH TOWELETTE TOPICAL (05:21)
[2018-07-24 05:31] LABS: Bedside Glucose 438 mg/dL (70-110)
[2018-07-24] MEDS: Budesonide Respules 0.5 MG/2 ML AMPUL.NEB. INHALATION ×2 (06:41→18:47)
--- NOTE | 2018-07-24 07:00 | PN_ITS ---
Subjective: Patient did well overnight. Patient did have TPN initiated and glucose has been running high. Patient with no complaints at this time. Nursing reporting no air in ostomy bag. Patient is denying any abdominal pain, nausea or vomiting. Oxygenation has been doing well. General: Alert, Cooperative, No apparent distress, Confused, Disoriented, - - Slightly dysarthric speech HEENT: Atraumatic, PERRLA, EOMI, Normocephalic, - - Facial droop noted. No scleral icterus or injection noted. Oral: Moist Mucosa, No Gingival or Mucosal Lesions/ Ulcerations Neck: Supple, No JVD, No Nodes, Trachea Midline Lungs: No wheeze, No rales, Diminished, Rhonchi - Scattered, but improved with cough, - - Symmetric expansion. No dullness to percussion. Cardiovascular: Normal S1, Normal S2, Irregular Rate, Murmur, No rub noted, No Gallop Abdomen: Soft, Non Tender, Hypoactive Bowel Sounds, Distended - Slightly Extremities: No clubbing, No cyanosis, Capillary Refill Less than 3 Seconds, Edema Skin: - - No significant change from previous. Musculoskeletal: No Tenderness to Palpation of Joints or Extremities Lymphatic: No Cervical, Supraclavicular, or Inguinal Adenopathy Neurological: Neuro grossly intact - No significant change from previous Psych/Mental Status: Normal Affect, Appropriate Vital Signs Temp Pulse Resp BP Pulse Ox 36.6 C 79 20 H 141/55 H 97 07/24/18 00:00 07/24/18 06:00 07/24/18 06:00 07/24/18 06:00 07/24/18 06:00 Oxygen Flow Rate (L/min) 2 Oxygen Delivery Method Nasal Cannula Weight: 85 kg Body Mass Index (BMI) 29.2 Intake and Output for Last 24 Hours 07/22/18 07/23/18 07/24/18 23:59 23:59 23:59 Intake Total 3572.3 / 3572.3 1717.2 / 1717.2 663.7 / 663.7 Output Total 3250 / 3250 5878 / 5878 1003 / 1003 Balance 322.3 / 322.3 -4160.8 / -4160.8 -339.3 / -339.3 Labs (Last 48 Hours) 07/22/18 07/22/18 07/22/18 04:15 04:15 06:30 WBC RBC Hgb Hct MCV MCH MCHC RDW RDW Differential Plt Count MPV Immature Gran % (Auto) Neut % (Auto) Lymph % (Auto) [place] % (Auto) Eos % (Auto) Baso % (Auto) Absolute Neuts (auto) Absolute Lymphs (auto) Total Counted Not Reportable Differential Comment Specimen Type Sample Site pH Bicarbonate Actual POC Total CO2 Base Excess O2 Saturation O2 % ABG pCO2 ABG pO2 Cory Test O2 Delivery Device Vent Mode POC PEEP POC Pressure Suppt Blood Gas Notified Whom Blood Gas Notified Time Sodium Potassium Chloride Carbon Dioxide Anion Gap BUN Creatinine Estim Creat Clear Calc Est GFR (MDRD) Af Amer Est GFR (MDRD) Non-Af BUN/Creatinine Ratio Glucose Calcium Phosphorus Magnesium Troponin I < 0.015 POC Glucose 160 H 07/22/18 07/22/18 07/22/18 12:04 18:10 23:18 WBC RBC Hgb Hct MCV MCH MCHC RDW RDW Differential Plt Count MPV Immature Gran % (Auto) Neut % (Auto) Lymph % (Auto) [place] % (Auto) Eos % (Auto) Baso % (Auto) Absolute Neuts (auto) Absolute Lymphs (auto) Total Counted Differential Comment Specimen Type Sample Site pH Bicarbonate Actual POC Total CO2 Base Excess O2 Saturation O2 % ABG pCO2 ABG pO2 Cory Test O2 Delivery Device Vent Mode POC PEEP POC Pressure Suppt Blood Gas Notified Whom Blood Gas Notified Time Sodium Potassium Chloride Carbon Dioxide Anion Gap BUN Creatinine Estim Creat Clear Calc Est GFR (MDRD) Af Amer Est GFR (MDRD) Non-Af BUN/Creatinine Ratio Glucose Calcium Phosphorus Magnesium Troponin I POC Glucose 148 H 137 H 121 H 07/23/18 07/23/18 07/23/18 04:00 04:00 05:33 WBC 7.3 RBC 2.61 L Hgb 8.2 L Hct 24.7 L MCV 94.6 MCH 31.4 MCHC 33.2 RDW 15.2 H RDW Differential 52.4 H Plt Count 124 L MPV 8.9 Immature Gran % (Auto) 0.100 Neut % (Auto) 87.1 H Lymph % (Auto) 7.3 L [place] % (Auto) 3.2 Eos % (Auto) 2.3 Baso % (Auto) 0.0 Absolute Neuts (auto) 6.3 Absolute Lymphs (auto) 0.53 L Total Counted Not Reportable Differential Comment SCANNED Specimen Type Sample Site pH Bicarbonate Actual POC Total CO2 Base Excess O2 Saturation O2 % ABG pCO2 ABG pO2 Coyr Test O2 Delivery Device Vent Mode POC PEEP POC Pressure Suppt Blood Gas Notified Whom Blood Gas Notified Time Sodium 140 Potassium 3.8 Chloride 111 H Carbon Dioxide 19.0 L Anion Gap 10 BUN 32 H Creatinine 1.95 H Estim Creat Clear Calc 21.18 Est GFR (MDRD) Af Amer 32 L Est GFR (MDRD) Non-Af 26 L BUN/Creatinine Ratio 16.4 Glucose 136 H Calcium 7.7 L Phosphorus 2.8 Magnesium 2.1 Troponin I POC Glucose 130 H 07/23/18 07/23/18 07/23/18 06:21 11:57 16:18 WBC RBC Hgb Hct MCV MCH MCHC RDW RDW Differential Plt Count MPV Immature Gran % (Auto) Neut % (Auto) Lymph % (Auto) [place] % (Auto) Eos % (Auto) Baso % (Auto) Absolute Neuts (auto) Absolute Lymphs (auto) Total Counted Differential Comment Specimen Type ART Sample Site R Radial pH 7.33 L Bicarbonate Actual 16.5 L POC Total CO2 17 Base Excess -9 L O2 Saturation 93 L O2 % 30 ABG pCO2 31.3 L ABG pO2 71 L Cory Test POS O2 Delivery Device Vent Vent Mode CPAP PS POC PEEP 5 POC Pressure Suppt 5 Blood Gas Notified Whom ICU MD Blood Gas Notified Time 612 Sodium Potassium Chloride Carbon Dioxide Anion Gap BUN Creatinine Estim Creat Clear Calc Est GFR (MDRD) Af Amer Est GFR (MDRD) Non-Af BUN/Creatinine Ratio Glucose Calcium Phosphorus Magnesium Troponin I POC Glucose 162 H 180 H 07/24/18 07/24/18 07/24/18 04:00 04:00 04:00 WBC 5.6 RBC 2.93 L Hgb 9.1 L Hct 27.6 L MCV 94.2 MCH 31.1 MCHC 33.0 RDW 15.3 H RDW Differential 52.8 H Plt Count 118 L MPV 9.3 Immature Gran % (Auto) 0.200 Neut % (Auto) 82.7 H Lymph % (Auto) 6.4 L [place] % (Auto) 8.0 Eos % (Auto) 2.5 Baso % (Auto) 0.2 Absolute Neuts (auto) 4.6 Absolute Lymphs (auto) 0.36 L Total Counted Not Reportable Differential Comment Specimen Type Sample Site pH Bicarbonate Actual POC Total CO2 Base Excess O2 Saturation O2 % ABG pCO2 ABG pO2 Cory Test O2 Delivery Device Vent Mode POC PEEP POC Pressure Suppt Blood Gas Notified Whom Blood Gas Notified Time Sodium 141 Potassium 3.3 L Chloride 106 Carbon Dioxide 24.0 Anion Gap 11 BUN 36 H Creatinine 1.98 H Estim Creat Clear Calc 20.86 Est GFR (MDRD) Af Amer 31 L Est GFR (MDRD) Non-Af 26 L BUN/Creatinine Ratio 18.2 Glucose 435 H Calcium 7.9 L Phosphorus 3.1 Magnesium 1.8 Troponin I POC Glucose 07/24/18 05:16 WBC RBC Hgb Hct MCV MCH MCHC RDW RDW Differential Plt Count MPV Immature Gran % (Auto) Neut % (Auto) Lymph % (Auto) [place] % (Auto) Eos % (Auto) Baso % (Auto) Absolute Neuts (auto) Absolute Lymphs (auto) Total Counted Differential Comment Specimen Type Sample Site pH Bicarbonate Actual POC Total CO2 Base Excess O2 Saturation O2 % ABG pCO2 ABG pO2 Cory Test O2 Delivery Device Vent Mode POC PEEP POC Pressure Suppt Blood Gas Notified Whom Blood Gas Notified Time Sodium Potassium Chloride Carbon Dioxide Anion Gap BUN Creatinine Estim Creat Clear Calc Est GFR (MDRD) Af Amer Est GFR (MDRD) Non-Af BUN/Creatinine Ratio Glucose Calcium Phosphorus Magnesium Troponin I POC Glucose 438 H Microbiology 07/20/18 12:10 Wound Drainage - Other Gram Stain - Final 07/20/18 12:10 Wound Drainage - Other Wound Culture - Preliminary Escherichia coli 07/20/18 12:10 Wound Drainage - Other Anaerobic Culture - Preliminary Checking for anaerobes, further studies to follow. 07/20/18 09:45 Blood Culture (Wb) - Anticubital Right Blood Culture - Preliminary Clostridium clostridioforme Medical Necessity - Tobacco Use Smoking Status: Never smoker Tobacco Use: Non-smoker Assessment/Plan All Active Problems (Last Reviewed 03/01/18 @ 13:10 by Victoria Fu) Large bowel perforation (Acute) Septic shock (Acute) DEMETRA (acute kidney injury) (Acute) Pneumococcal pneumonia (Acute) SVT (supraventricular tachycardia) (Acute) RECOMMENDATIONS: 1. Discontinue scheduled diuretics, but attempt to keep euvolemic 2. Initiate TPN 3. Continue antibiotics for a 14 day course 4. Antiarrhythmics per cardiology 5. Continue Pulmicort and aerosol therapy 6. Okay to leave the intensive care unit from my perspective IMPRESSIONS: 1. Septic shock secondary to bowel perforation Patient currently on Unasyn therapy. She does not appear to have a penicillin allergy. Patient appears to be responding well to current therapy. Anticipate 10-14 days of total antibiotic therapy. Patient does not appear to have bowel motility at this time. Clear drainage from the wound likely secondary to extravasation of fluid. This does not appear purulent. 2. Acute hypoxic respiratory failure/history of COPD Patient does have a history of COPD in the past. Continue with bronchodilators and Pulmicort for substitution of Advair. Chest x-ray shows only areas of atelectasis, which were likely secondary to abdominal pain. Significant diuresis yesterday with improvement. Continue to wean oxygen as tolerated, but active diuresis is likely not necessary. Encourage incentive spirometer. 3. Diabetes mellitus Patient will be n.p.o. given acute surgical intervention. Following with sliding scale insulin is likely appropriate at this time. Need to add basal insulin with TPN. 4. Acute on chronic kidney disease stage III Slightly worse creatinine compared to previous. Patient appears to be entering the diuretic phase of ATN. Patient did receive some Lasix therapy yesterday, but has had significant output overnight. Will hold on any diuretic therapy. Will attempt to keep patient relatively euvolemic, but will have to watch closely given volume of TPN. 5. History of CVA/hyperlipidemia/hypothyroidism/osteoarthritis/multiple surgeries/multiple allergies/advanced age Complicates care, management, recovery and prognosis. Patient does have a right facial droop at baseline. Hold medications for now. Possibly reinitiate Synthroid once patient has bowel function. Hold baseline hypertensive medications. Code Visit Inpatient E&M: [id number] [facility] L3
--- NOTE | 2018-07-24 08:25 | PCM.PN.SRG ---
Patient Problems: Active and Suspected Problems (Last Reviewed 03/01/18 @ 13:10 by Victoria Fu) Large bowel perforation (Acute) Septic shock (Acute) Subjective: Patient says she is having no pain this morning. She is not having any nausea or vomiting. She was initiated on TPN yesterday. - Physical Exam General: Alert, Cooperative, No apparent distress HEENT: Atraumatic Neck: No JVD Lungs: Normal air movement Cardiovascular: Regular rate, Regular Rhythm Abdomen: Soft, Non Tender, - - Incision is clean dry and intact. There is a little bit of ecchymosis in the middle of the wound. Abdomen is slightly distended. Stoma is soft but there is no gas in her bag. Musculoskeletal: No Muscle Wasting Neurological: Cranial nerves II-XII grossly intact Psych/Mental Status: Normal Affect Vital Signs Temp Pulse Resp BP Pulse Ox 97.8 F 79 18 141/55 H 98 07/24/18 00:00 07/24/18 06:41 07/24/18 06:41 07/24/18 06:00 07/24/18 06:41 Oxygen Flow Rate (L/min) 3 Oxygen Delivery Method Nasal Cannula Weight: 187 lb 6.287 oz Body Mass Index (BMI) 29.2 Intake and Output for Last 24 Hours 07/22/18 07/23/18 07/24/18 23:59 23:59 23:59 Intake Total 3572.3 / 3572.3 1717.2 / 1717.2 663.7 / 663.7 Output Total 3250 / 3250 5878 / 5878 1003 / 1003 Balance 322.3 / 322.3 -4160.8 / -4160.8 -339.3 / -339.3 Microbiology Past 72 Hours 07/20/18 12:10 Gram Stain - Final Wound Drainage - Other Wound Culture - Preliminary Escherichia coli Anaerobic Culture - Preliminary Checking for anaerobes, further studies to follow. 07/20/18 09:45 Blood Culture - Preliminary Blood Culture (Wb) - Anticubital Right Clostridium clostridioforme Laboratory Tests Past 24 Hrs 07/24/18 07/24/18 07/24/18 04:00 04:00 04:00 WBC 5.6 RBC 2.93 L Hgb 9.1 L Hct 27.6 L MCV 94.2 MCH 31.1 MCHC 33.0 RDW 15.3 H RDW Differential 52.8 H Plt Count 118 L MPV 9.3 Immature Gran % (Auto) 0.200 Neut % (Auto) 82.7 H Lymph % (Auto) 6.4 L [place] % (Auto) 8.0 Eos % (Auto) 2.5 Baso % (Auto) 0.2 Absolute Neuts (auto) 4.6 Absolute Lymphs (auto) 0.36 L Total Counted Not Reportable Differential Comment Sodium 141 Potassium 3.3 L Chloride 106 Carbon Dioxide 24.0 Anion Gap 11 BUN 36 H Creatinine 1.98 H Estim Creat Clear Calc 20.86 Est GFR (MDRD) Af Amer 31 L Est GFR (MDRD) Non-Af 26 L BUN/Creatinine Ratio 18.2 Glucose 435 H Calcium 7.9 L Phosphorus 3.1 Magnesium 1.8 POC Glucose 07/24/18 07/23/18 07/23/18 05:16 16:18 11:57 POC Glucose 438 H 180 H 162 H Medical Necessity - Tobacco Use Smoking Status: Never smoker Tobacco Use: Non-smoker Assessment/Plan All Active Problems (Last Reviewed 03/01/18 @ 13:10 by Victoria Fu) Large bowel perforation (Acute) Septic shock (Acute) DEMETRA (acute kidney injury) (Acute) Pneumococcal pneumonia (Acute) SVT (supraventricular tachycardia) (Acute) 82-year-old female status post left hemicolectomy for perforation 1. Patient was started on TPN for nutrition. Patient has postop ileus. Await bowel function before starting a diet. She is having no nausea or vomiting but does appear slightly distended with no gas in her bag. 2. Continue care per ICU. Okay to transfer out of ICU once deemed okay by blacksmith hammer operator. 3. PT/OT Nathen Church MD Pager: [facility] [address] [place] [address], [address] [place] [address] Office:
--- NOTE | 2018-07-24 08:29 | PN.SURG_ITS ---
Patient Problems: Active and Suspected Problems (Last Reviewed 03/01/18 @ 13:10 by Victoria Fu) Large bowel perforation (Acute) Septic shock (Acute) Subjective: Patient says she is having no pain this morning. She is not having any nausea or vomiting. She was initiated on TPN yesterday. - Physical Exam General: Alert, Cooperative, No apparent distress HEENT: Atraumatic Neck: No JVD Lungs: Normal air movement Cardiovascular: Regular rate, Regular Rhythm Abdomen: Soft, Non Tender, - - Incision is clean dry and intact. There is a little bit of ecchymosis in the middle of the wound. Abdomen is slightly distended. Stoma is soft but there is no gas in her bag. Musculoskeletal: No Muscle Wasting Neurological: Cranial nerves II-XII grossly intact Psych/Mental Status: Normal Affect Vital Signs Temp Pulse Resp BP Pulse Ox 97.8 F 79 18 141/55 H 98 07/24/18 00:00 07/24/18 06:41 07/24/18 06:41 07/24/18 06:00 07/24/18 06:41 Oxygen Flow Rate (L/min) 3 Oxygen Delivery Method Nasal Cannula Weight: 187 lb 6.287 oz Body Mass Index (BMI) 29.2 Intake and Output for Last 24 Hours 07/22/18 07/23/18 07/24/18 23:59 23:59 23:59 Intake Total 3572.3 / 3572.3 1717.2 / 1717.2 663.7 / 663.7 Output Total 3250 / 3250 5878 / 5878 1003 / 1003 Balance 322.3 / 322.3 -4160.8 / -4160.8 -339.3 / -339.3 Microbiology Past 72 Hours 07/20/18 12:10 Gram Stain - Final Wound Drainage - Other Wound Culture - Preliminary Escherichia coli Anaerobic Culture - Preliminary Checking for anaerobes, further studies to follow. 07/20/18 09:45 Blood Culture - Preliminary Blood Culture (Wb) - Anticubital Right Clostridium clostridioforme Laboratory Tests Past 24 Hrs 07/24/18 07/24/18 07/24/18 04:00 04:00 04:00 WBC 5.6 RBC 2.93 L Hgb 9.1 L Hct 27.6 L MCV 94.2 MCH 31.1 MCHC 33.0 RDW 15.3 H RDW Differential 52.8 H Plt Count 118 L MPV 9.3 Immature Gran % (Auto) 0.200 Neut % (Auto) 82.7 H Lymph % (Auto) 6.4 L [place] % (Auto) 8.0 Eos % (Auto) 2.5 Baso % (Auto) 0.2 Absolute Neuts (auto) 4.6 Absolute Lymphs (auto) 0.36 L Total Counted Not Reportable Differential Comment Sodium 141 Potassium 3.3 L Chloride 106 Carbon Dioxide 24.0 Anion Gap 11 BUN 36 H Creatinine 1.98 H Estim Creat Clear Calc 20.86 Est GFR (MDRD) Af Amer 31 L Est GFR (MDRD) Non-Af 26 L BUN/Creatinine Ratio 18.2 Glucose 435 H Calcium 7.9 L Phosphorus 3.1 Magnesium 1.8 POC Glucose 07/24/18 07/23/18 07/23/18 05:16 16:18 11:57 POC Glucose 438 H 180 H 162 H Medical Necessity - Tobacco Use Smoking Status: Never smoker Tobacco Use: Non-smoker Assessment/Plan All Active Problems (Last Reviewed 03/01/18 @ 13:10 by Victoria Fu) Large bowel perforation (Acute) Septic shock (Acute) DEMETRA (acute kidney injury) (Acute) Pneumococcal pneumonia (Acute) SVT (supraventricular tachycardia) (Acute) 82-year-old female status post left hemicolectomy for perforation 1. Patient was started on TPN for nutrition. Patient has postop ileus. Await bowel function before starting a diet. She is having no nausea or vomiting but does appear slightly distended with no gas in her bag. 2. Continue care per ICU. Okay to transfer out of ICU once deemed okay by pit hoist operator. 3. PT/OT Nathen Church MD Pager: [facility] [address] [place] [address], [address] [place] [address] Office:
[2018-07-24] MEDS: Heparin Injection (Vial) 5,000 UNIT/ML VIAL 5000 UNIT SC ×2 (08:46→21:48)
--- NOTE | 2018-07-24 10:00 | PCM.PN.HOSP ---
Patient Problems: Active and Suspected Problems (Last Reviewed 03/01/18 @ 13:10 by Victoria Fu) Large bowel perforation (Acute) Septic shock (Acute) Subjective: Patient was seen and examined. Less confused. No acute events overnight. Off pressors. Remains on 3 L of oxygen. Objective: Physical Exam General: Alert, confused, oriented to person only, not pale or jaundiced. HEENT: Atraumatic, PERRLA, EOMI, Normocephalic, Oral: Dry Mucosa Neck: Supple, No JVD, Negative Carotid Bruits Lungs: Clear to auscultation, Normal air movement Cardiovascular: Regular rate, Regular Rhythm, Normal S1, Normal S2, No murmurs Abdomen: Bowel Sounds Present, Soft, Non Tender, Non-Distended, - - Left-sided colostomy, midline dressing intact, abdomen soft Extremities: No edema Skin: No rashes, No breakdown Musculoskeletal: No Tenderness to Palpation of Joints or Extremities Lymphatic: No Cervical, Supraclavicular, or Inguinal Adenopathy Neurological: Cranial nerves II-XII grossly intact except for right facial droop present on admission, Neuro grossly intact Psych/Mental Status: Normal Affect, Appropriate Vitals/I&O's: Vital Signs Temp Pulse Resp BP Pulse Ox 97.8 F 79 18 141/55 H 98 07/24/18 00:00 07/24/18 06:41 07/24/18 06:41 07/24/18 06:00 07/24/18 06:41 Oxygen Flow Rate (L/min) 3 Oxygen Delivery Method Nasal Cannula Weight: 85 kg Body Mass Index (BMI) 29.2 Intake and Output for Last 24 Hours 07/22/18 07/23/18 07/24/18 23:59 23:59 23:59 Intake Total 3572.3 / 3572.3 1717.2 / 1717.2 663.7 / 663.7 Output Total 3250 / 3250 5878 / 5878 1003 / 1003 Balance 322.3 / 322.3 -4160.8 / -4160.8 -339.3 / -339.3 Microbiology Past 72 Hours 07/20/18 12:10 Wound Drainage - Other Gram Stain - Final 07/20/18 12:10 Wound Drainage - Other Wound Culture - Preliminary Escherichia coli 07/20/18 12:10 Wound Drainage - Other Anaerobic Culture - Preliminary Checking for anaerobes, further studies to follow. 07/20/18 09:45 Blood Culture (Wb) - Anticubital Right Blood Culture - Preliminary Clostridium clostridioforme Laboratory Results 07/23/18 11:57: POC Glucose 162 H 07/23/18 16:18: POC Glucose 180 H 07/24/18 04:00: Sodium 141, Potassium 3.3 L, Chloride 106, Carbon Dioxide 24.0, Anion Gap 11, BUN 36 H, Creatinine 1.98 H, Estim Creat Clear Calc 20.86, Est GFR (MDRD) Af Amer 31 L, Est GFR (MDRD) Non-Af 26 L, BUN/Creatinine Ratio 18.2, Glucose 435 H, Calcium 7.9 L 07/24/18 04:00: WBC 5.6, RBC 2.93 L, Hgb 9.1 L, Hct 27.6 L, MCV 94.2, MCH 31.1, MCHC 33.0, RDW 15.3 H, RDW Differential 52.8 H, Plt Count 118 L, MPV 9.3, Immature Gran % (Auto) 0.200, Neut % (Auto) 82.7 H, Lymph % (Auto) 6.4 L, [place] % (Auto) 8.0, Eos % (Auto) 2.5, Baso % (Auto) 0.2, Absolute Neuts (auto) 4.6, Absolute Lymphs (auto) 0.36 L, Total Counted Not Reportable, Differential Comment 07/24/18 04:00: Phosphorus 3.1, Magnesium 1.8 07/24/18 05:16: POC Glucose 438 H Current Medications Acetaminophen (Tylenol) 650 mg PO Q6H PRN PRN PRN Reason: Mild Pain (1-3)/Temp > 100.7 F Albuterol/Ipratropium (Duoneb) 3 ml INHALATION Q4H PRN PRN PRN Reason: SHORTNESS OF BREATH Budesonide (Pulmicort Aerosol) 0.5 mg INHALATION BID.RT [facility] Last Admin: 07/24/18 06:41 Dose: 0.5 mg Chlorhexidine Gluconate () 1 each TOPICAL DAILY [facility] Last Admin: 07/24/18 05:21 Dose: 1 each Dextrose (D50w Syringe) 0 gm IV X1 PRN; Protocol PRN Reason: Hypoglycemia Glucagon () 1 mg IM .X1 PRN PRN Reason: Hypoglycemia Heparin Sodium (Porcine) (Heparin Na) 5,000 unit SC BID [facility] Last Admin: 07/24/18 08:46 Dose: 5,000 unit Sodium Chloride () 250 mls @ 15 mls/hr IV .[id number] PRN PRN Reason: SALINE FLUSH Last Admin: 07/21/18 09:47 Dose: 15 mls/hr Sodium Chloride () 250 mls @ 15 mls/hr IV .[id number] PRN PRN Reason: SALINE FLUSH Amiodarone HCl/Dextrose (Nexterone 360 Mg/200 Ml Bag) 360 mg in 200 mls @ 16.667 mls/hr CONT INF .Q12H [facility] PRN Reason: 0.5 MG/MIN Last Admin: 07/24/18 08:48 Dose: 16.667 mls/hr Ampicillin Sodium/Sulbactam (Sodium 3 gm/ Sodium Chloride) 112 mls @ 150 mls/hr IV Q8 [facility] Last Admin: 07/24/18 05:18 Dose: 150 mls/hr Multivitamins 10 ml/ Chromium/Copper/Manganese/Seleni/Zn 1 ml/ Folic Acid 1 mg/Famotidine 20 mg/ Amino Acids/Electrolytes 2,013.2 mls @ 84 mls/hr IV .[id number] [facility] Stop: 07/24/18 15:57 Last Admin: 07/23/18 15:57 Dose: 84 mls/hr Multivitamins 10 ml/ Chromium/Copper/Manganese/Seleni/Zn 1 ml/ Folic Acid 1 mg/Famotidine 20 mg/ Amino Acids/Electrolytes 2,013.2 mls @ 84 mls/hr IV .[id number] [facility] Stop: 07/25/18 15:57 Multivitamins 10 ml/ Chromium/Copper/Manganese/Seleni/Zn 1 ml/ Folic Acid 1 mg/Famotidine 20 mg/ Amino Acids/Electrolytes 2,013.2 mls @ 84 mls/hr IV .[id number] [facility] Stop: 07/26/18 15:57 Insulin Human Lispro (Humalog Kwikpen (Bkc)) 0 unit SC Q6 [facility] PRN Reason: Protocol Last Admin: 07/24/18 05:18 Dose: 16 units Magnesium Hydroxide (Milk Of Magnesia) 30 ml PO DAILY PRN PRN PRN Reason: Constipation Metoprolol Tartrate (Lopressor (Beta Jose)) 5 mg IV Q6 PRN PRN Reason: TO CONTROL HEART RATE Last Admin: 07/21/18 19:35 Dose: 2.5 mg Morphine Sulfate () 1 mg IV Q4H PRN PRN PRN Reason: SEVERE PAIN (6-10/10) Ondansetron HCl (Zofran) 4 mg IV Q8H PRN PRN PRN Reason: NAUSEA Sodium Chloride () 10 - 40 ml IV UD PRN PRN Reason: MULTILUMEN/HICMAN CATH FLUSH Last Admin: 07/23/18 16:44 Dose: 10 ml Medical Necessity - Tobacco Use Smoking Status: Never smoker Tobacco Use: Non-smoker Assessment/Plan All Active Problems (Last Reviewed 03/01/18 @ 13:10 by Victoria Fu) Large bowel perforation (Acute) Septic shock (Acute) DEMETRA (acute kidney injury) (Acute) Pneumococcal pneumonia (Acute) SVT (supraventricular tachycardia) (Acute) 82 year old F with multiple comorbidities significant for Takusubo cardiomyopathy with SVTs, hypertension, type II DM, [facility] a [facility] admitted with complaints of confusion and not feeling well as well as being diaphoretic. 1. Septic shock secondary to acute peritonitis secondary to perforated descending colon, status post surgery, resolved Blood cultures growing Clostridium clostridioforme, wound and urine cultures growing E. Coli, repeat blood cultures pending Remains on IV Unasyn, day 4, will continue to monitor. 2. Postop day #4 status post exploratory laparotomy, colon resection and end colostomy, blood in the colostomy bag, on TPN, on as needed Tylenol, 3. DEMETRA secondary to septic shock, likely elevated secondary to being off IV fluids, will continue to trend urine output, off Lasix today 4. History of SVT, off Cardizem and metoprolol, cardiology ff, on amiodarone and prn metoprolol 5. Acute respiratory failure, patient electively intubated for surgery, resolving, on 3L oxygen 6. Type II DM, still n.p.o, blood sugars are uncontrolled, secondary to TPN, will start Lantus 5 units daily and continue with Accu-Cheks every 6hrs with insulin sliding scale. 7. Hypertension, will continue with prn metoprolol 8. COPD, not in acute exacerbation 9. Hypothyroidism, on Synthroid, will need to resume meds soon 10. DVT PPx- Heparin SC Code Visit Inpatient E&M: 25648 Subs Hosp L3
--- NOTE | 2018-07-24 10:08 | PN_ITS ---
Patient Problems: Active and Suspected Problems (Last Reviewed 03/01/18 @ 13:10 by Victoria Fu) Large bowel perforation (Acute) Septic shock (Acute) Subjective: Patient was seen and examined. Less confused. No acute events overnight. Off pressors. Remains on 3 L of oxygen. Objective: Physical Exam General: Alert, confused, oriented to person only, not pale or jaundiced. HEENT: Atraumatic, PERRLA, EOMI, Normocephalic, Oral: Dry Mucosa Neck: Supple, No JVD, Negative Carotid Bruits Lungs: Clear to auscultation, Normal air movement Cardiovascular: Regular rate, Regular Rhythm, Normal S1, Normal S2, No murmurs Abdomen: Bowel Sounds Present, Soft, Non Tender, Non-Distended, - - Left-sided colostomy, midline dressing intact, abdomen soft Extremities: No edema Skin: No rashes, No breakdown Musculoskeletal: No Tenderness to Palpation of Joints or Extremities Lymphatic: No Cervical, Supraclavicular, or Inguinal Adenopathy Neurological: Cranial nerves II-XII grossly intact except for right facial droop present on admission, Neuro grossly intact Psych/Mental Status: Normal Affect, Appropriate Vitals/I&O's: Vital Signs Temp Pulse Resp BP Pulse Ox 97.8 F 79 18 141/55 H 98 07/24/18 00:00 07/24/18 06:41 07/24/18 06:41 07/24/18 06:00 07/24/18 06:41 Oxygen Flow Rate (L/min) 3 Oxygen Delivery Method Nasal Cannula Weight: 85 kg Body Mass Index (BMI) 29.2 Intake and Output for Last 24 Hours 07/22/18 07/23/18 07/24/18 23:59 23:59 23:59 Intake Total 3572.3 / 3572.3 1717.2 / 1717.2 663.7 / 663.7 Output Total 3250 / 3250 5878 / 5878 1003 / 1003 Balance 322.3 / 322.3 -4160.8 / -4160.8 -339.3 / -339.3 Microbiology Past 72 Hours 07/20/18 12:10 Wound Drainage - Other Gram Stain - Final 07/20/18 12:10 Wound Drainage - Other Wound Culture - Preliminary Escherichia coli 07/20/18 12:10 Wound Drainage - Other Anaerobic Culture - Preliminary Checking for anaerobes, further studies to follow. 07/20/18 09:45 Blood Culture (Wb) - Anticubital Right Blood Culture - Preliminary Clostridium clostridioforme Laboratory Results 07/23/18 11:57: POC Glucose 162 H 07/23/18 16:18: POC Glucose 180 H 07/24/18 04:00: Sodium 141, Potassium 3.3 L, Chloride 106, Carbon Dioxide 24.0, Anion Gap 11, BUN 36 H, Creatinine 1.98 H, Estim Creat Clear Calc 20.86, Est GFR (MDRD) Af Amer 31 L, Est GFR (MDRD) Non-Af 26 L, BUN/Creatinine Ratio 18.2, Glucose 435 H, Calcium 7.9 L 07/24/18 04:00: WBC 5.6, RBC 2.93 L, Hgb 9.1 L, Hct 27.6 L, MCV 94.2, MCH 31.1, MCHC 33.0, RDW 15.3 H, RDW Differential 52.8 H, Plt Count 118 L, MPV 9.3, Immature Gran % (Auto) 0.200, Neut % (Auto) 82.7 H, Lymph % (Auto) 6.4 L, [place] % (Auto) 8.0, Eos % (Auto) 2.5, Baso % (Auto) 0.2, Absolute Neuts (auto) 4.6, Absolute Lymphs (auto) 0.36 L, Total Counted Not Reportable, Differential Comment 07/24/18 04:00: Phosphorus 3.1, Magnesium 1.8 07/24/18 05:16: POC Glucose 438 H Current Medications Acetaminophen (Tylenol) 650 mg PO Q6H PRN PRN PRN Reason: Mild Pain (1-3)/Temp > 100.7 F Albuterol/Ipratropium (Duoneb) 3 ml INHALATION Q4H PRN PRN PRN Reason: SHORTNESS OF BREATH Budesonide (Pulmicort Aerosol) 0.5 mg INHALATION BID.RT [facility] Last Admin: 07/24/18 06:41 Dose: 0.5 mg Chlorhexidine Gluconate () 1 each TOPICAL DAILY [facility] Last Admin: 07/24/18 05:21 Dose: 1 each Dextrose (D50w Syringe) 0 gm IV X1 PRN; Protocol PRN Reason: Hypoglycemia Glucagon () 1 mg IM .X1 PRN PRN Reason: Hypoglycemia Heparin Sodium (Porcine) (Heparin Na) 5,000 unit SC BID [facility] Last Admin: 07/24/18 08:46 Dose: 5,000 unit Sodium Chloride () 250 mls @ 15 mls/hr IV .[id number] PRN PRN Reason: SALINE FLUSH Last Admin: 07/21/18 09:47 Dose: 15 mls/hr Sodium Chloride () 250 mls @ 15 mls/hr IV .[id number] PRN PRN Reason: SALINE FLUSH Amiodarone HCl/Dextrose (Nexterone 360 Mg/200 Ml Bag) 360 mg in 200 mls @ 16.667 mls/hr CONT INF .Q12H [facility] PRN Reason: 0.5 MG/MIN Last Admin: 07/24/18 08:48 Dose: 16.667 mls/hr Ampicillin Sodium/Sulbactam (Sodium 3 gm/ Sodium Chloride) 112 mls @ 150 mls/ hr IV Q8 [facility] Last Admin: 07/24/18 05:18 Dose: 150 mls/hr Multivitamins 10 ml/ Chromium/Copper/Manganese/Seleni/Zn 1 ml/ Folic Acid 1 mg/ Famotidine 20 mg/ Amino Acids/Electrolytes 2,013.2 mls @ 84 mls/hr IV .[id number] [facility] Stop: 07/24/18 15:57 Last Admin: 07/23/18 15:57 Dose: 84 mls/hr Multivitamins 10 ml/ Chromium/Copper/Manganese/Seleni/Zn 1 ml/ Folic Acid 1 mg/ Famotidine 20 mg/ Amino Acids/Electrolytes 2,013.2 mls @ 84 mls/hr IV .[id number] [facility] Stop: 07/25/18 15:57 Multivitamins 10 ml/ Chromium/Copper/Manganese/Seleni/Zn 1 ml/ Folic Acid 1 mg/ Famotidine 20 mg/ Amino Acids/Electrolytes 2,013.2 mls @ 84 mls/hr IV .[id number] [facility] Stop: 07/26/18 15:57 Insulin Human Lispro (Humalog Kwikpen (Bkc)) 0 unit SC Q6 [facility] PRN Reason: Protocol Last Admin: 07/24/18 05:18 Dose: 16 units Magnesium Hydroxide (Milk Of Magnesia) 30 ml PO DAILY PRN PRN PRN Reason: Constipation Metoprolol Tartrate (Lopressor (Beta Jose)) 5 mg IV Q6 PRN PRN Reason: TO CONTROL HEART RATE Last Admin: 07/21/18 19:35 Dose: 2.5 mg Morphine Sulfate () 1 mg IV Q4H PRN PRN PRN Reason: SEVERE PAIN (6-10/10) Ondansetron HCl (Zofran) 4 mg IV Q8H PRN PRN PRN Reason: NAUSEA Sodium Chloride () 10 - 40 ml IV UD PRN PRN Reason: MULTILUMEN/HICMAN CATH FLUSH Last Admin: 07/23/18 16:44 Dose: 10 ml Medical Necessity - Tobacco Use Smoking Status: Never smoker Tobacco Use: Non-smoker Assessment/Plan All Active Problems (Last Reviewed 03/01/18 @ 13:10 by Victoria Fu) Large bowel perforation (Acute) Septic shock (Acute) DEMETRA (acute kidney injury) (Acute) Pneumococcal pneumonia (Acute) SVT (supraventricular tachycardia) (Acute) 82 year old F with multiple comorbidities significant for Takusubo cardiomyopathy with SVTs, hypertension, type II DM, resident in a correction admitted with complaints of confusion and not feeling well as well as being diaphoretic. 1. Septic shock secondary to acute peritonitis secondary to perforated descending colon, status post surgery, resolved Blood cultures growing Clostridium clostridioforme, wound and urine cultures growing E. Coli, repeat blood cultures pending Remains on IV Unasyn, day 4, will continue to monitor. 2. Postop day #4 status post exploratory laparotomy, colon resection and end colostomy, blood in the colostomy bag, on TPN, on as needed Tylenol, 3. DEMETRA secondary to septic shock, likely elevated secondary to being off IV fluids, will continue to trend urine output, off Lasix today 4. History of SVT, off Cardizem and metoprolol, cardiology ff, on amiodarone and prn metoprolol 5. Acute respiratory failure, patient electively intubated for surgery, resolving, on 3L oxygen 6. Type II DM, still n.p.o, blood sugars are uncontrolled, secondary to TPN, will start Lantus 5 units daily and continue with Accu-Cheks every 6hrs with insulin sliding scale. 7. Hypertension, will continue with prn metoprolol 8. COPD, not in acute exacerbation 9. Hypothyroidism, on Synthroid, will need to resume meds soon 10. DVT PPx- Heparin SC Code Visit Inpatient E&M: 22719 Subs Hosp L3
--- NOTE | 2018-07-24 10:30 | PCM.PN.BLA ---
Progress Note No SVT overnight. Continues on amiodarone infusion as he is still n.p.o. Will switch to p.o. rate limiting medication once she is able to resume oral intake.
[2018-07-24 10:36] LABS: Bedside Glucose 398 mg/dL (70-110)
[2018-07-24 11:56] LABS: Bedside Glucose 454 mg/dL (70-110)
[2018-07-24 16:50] LABS: Bedside Glucose > 500 mg/dL (70-110)
[2018-07-24 18:11] LABS: Bedside Glucose > 500 mg/dL (70-110)
[2018-07-24 21:40] LABS: Bedside Glucose 495 mg/dL (70-110)
[2018-07-24 22:26] LABS: Glucose 527 mg/dL (74-106)
[2018-07-24] MEDS: Insulin Lispro 100 UNIT/ML INSULN.PEN 25 UNIT SC (22:48)
[2018-07-25] VITALS (29 sets, daily range): BP systolic 121–165; BP diastolic 44–112; PULSE 73–100; RESP 13–23; TEMP 36.6–37.2; O2SAT 92–98
[2018-07-25 02:16] LABS: Bedside Glucose 481 mg/dL (70-110)
[2018-07-25 02:28] LABS: Glucose 476 mg/dL (74-106)
[2018-07-25] MEDS: Insulin Lispro 100 UNIT/ML INSULN.PEN SC ×6 (02:31→21:15)
[2018-07-25] MEDS: Insulin Lispro 100 UNIT/ML INSULN.PEN 10 UNIT SC ×6 (02:32→21:16)
[2018-07-25 05:05] LABS: Anion Gap 9 (5-15); BUN 44 mg/dL (7-18); BUN/Creat Ratio 26.7 RATIO (10-20); Calcium,Total 8.3 mg/dL (8.5-10.1); Chloride 108 mmol/L (98-107); Creatinine, Serum 1.65 mg/dL (0.55-1.02); EST Glomerular Filtration Rate 32 mL/min (>60); Est Glom Filt Rate - Afr Amer 38 mL/min (>60); Estimated Creatinine Clearance 25.03 ml/min; Glucose 375 mg/dL (74-106); Potassium 2.7 mmol/L (3.5-5.1); Sodium Level 145 mmol/L (136-145)
[2018-07-25 05:52] LABS: Absolute Lymphocyte Count 0.38 X10^3/ul (0.83-4.51); Basophil# 0.01 X10^3/uL; Basophil% 0.2 % (0-1); Eosinophil# 0.08 X10^3/uL; Eosinophils% 1.6 % (0-5); Hematocrit 25.9 % (37-47); Lymphocyte # 0.38 X10^3/ul (4.0); Lymphocyte % 7.7 % (19-41); Mean Corp Hgb Conc 34.7 g/gl (32-36); Mean Corpuscular Hgb 32.3 pg (27.0-32.0); Mean Corpuscular Volume 92.8 fL (81-99); Mean Platelet Vol. 9.8 fl (6.2-12.0); Monocyte# 0.38 X10^3/uL; Monocyte% 7.7 % (0-10); Neutrophil # 4.03 X10^3/uL (2.7-7.7); Platelet Count 124 K/mm3 (150-450); RBC Distribution Width CV 14.8 % (11.6-14.6); RBC Distribution Width SD 48.2 fl (35.1-43.9); Red Blood Count 2.79 M/mm3 (4.2-5.4); White Blood Count 4.9 K/mm3 (4.4-11.0)
[2018-07-25 05:54] LABS: Differential Indicated SCAN CRITERIA MET; POSITIVE COUNT NO; POSITIVE DIFFERENTIAL YES; POSITIVE MORPHOLOGY NO
[2018-07-25] MEDS: CHLORHEXIDINE GLUC 2% CLOTH 1 EACH TOWELETTE TOPICAL (06:12)
[2018-07-25 06:25] LABS: Bedside Glucose 336 mg/dL (70-110)
[2018-07-25 06:41] LABS: Magnesium 1.6 mg/dL (1.6-2.6); Phosphorus 2.6 mg/dL (2.5-4.9)
--- NOTE | 2018-07-25 06:54 | PN_ITS ---
Subjective: Patient did well overnight. No acute issues were reported. Patient was noted to have elevated blood sugars overnight leading to increased insulin administration. No fevers have been reported. Patient with mild hypoxemia noted with sleep, so was placed on 2 L nasal cannula. No pain is reported. Patient continues to have no air noted in the colostomy bag. General: Alert, Cooperative, No apparent distress, Disoriented, - - Vocalizing well HEENT: Atraumatic, PERRLA, EOMI, Normocephalic, - - No scleral icterus or injection noted. Glasses in place. Oral: Moist Mucosa, No Gingival or Mucosal Lesions/ Ulcerations Neck: Supple, No JVD, No Nodes, Trachea Midline Lungs: No rhonchi, No wheeze, No rales, Diminished, - - Symmetric expansion. No dullness to percussion. Cardiovascular: Normal S1, Normal S2, No murmurs, Irregular Rate, No rub noted, No Gallop Abdomen: Soft, Hypoactive Bowel Sounds, Distended - Slightly, Tender - Only areas of incision Extremities: No clubbing, No cyanosis, Capillary Refill Less than 3 Seconds, Edema - Continues to improve Skin: - - No significant change compared to previous Musculoskeletal: No Tenderness to Palpation of Joints or Extremities Lymphatic: No Cervical, Supraclavicular, or Inguinal Adenopathy Neurological: Neuro grossly intact - No change from previous. Still with facial droop. Psych/Mental Status: Normal Affect, Appropriate Vital Signs Temp Pulse Resp BP Pulse Ox 36.6 C 73 16 140/44 H 94 07/25/18 04:00 07/25/18 06:00 07/25/18 06:00 07/25/18 06:00 07/25/18 06:00 Oxygen Flow Rate (L/min) 2 Oxygen Delivery Method Nasal Cannula Weight: 83 kg Body Mass Index (BMI) 29.2 Intake and Output for Last 24 Hours 07/23/18 07/24/18 07/25/18 23:59 23:59 23:59 Intake Total 1717.2 / 1717.2 1972.7 / 1972.7 1301.4 / 1301.4 Output Total 5878 / 5878 3303 / 3303 1974 / 1974 Balance -4160.8 / -4160.8 -1329.3 / -1329.3 -673.6 / -673.6 Labs (Last 48 Hours) 07/23/18 07/23/18 07/24/18 11:57 16:18 04:00 WBC RBC Hgb Hct MCV MCH MCHC RDW RDW Differential Plt Count MPV Immature Gran % (Auto) Neut % (Auto) Lymph % (Auto) Wells % (Auto) Eos % (Auto) Baso % (Auto) Absolute Neuts (auto) Absolute Lymphs (auto) Total Counted Differential Comment Sodium 141 Potassium 3.3 L Chloride 106 Carbon Dioxide 24.0 Anion Gap 11 BUN 36 H Creatinine 1.98 H Estim Creat Clear Calc 20.86 Est GFR (MDRD) Af Amer 31 L Est GFR (MDRD) Non-Af 26 L BUN/Creatinine Ratio 18.2 Glucose 435 H Calcium 7.9 L Phosphorus Magnesium POC Glucose 162 H 180 H 07/24/18 07/24/18 07/24/18 04:00 04:00 05:16 WBC 5.6 RBC 2.93 L Hgb 9.1 L Hct 27.6 L MCV 94.2 MCH 31.1 MCHC 33.0 RDW 15.3 H RDW Differential 52.8 H Plt Count 118 L MPV 9.3 Immature Gran % (Auto) 0.200 Neut % (Auto) 82.7 H Lymph % (Auto) 6.4 L Wells % (Auto) 8.0 Eos % (Auto) 2.5 Baso % (Auto) 0.2 Absolute Neuts (auto) 4.6 Absolute Lymphs (auto) 0.36 L Total Counted Not Reportable Differential Comment Sodium Potassium Chloride Carbon Dioxide Anion Gap BUN Creatinine Estim Creat Clear Calc Est GFR (MDRD) Af Amer Est GFR (MDRD) Non-Af BUN/Creatinine Ratio Glucose Calcium Phosphorus 3.1 Magnesium 1.8 POC Glucose 438 H 07/24/18 07/24/18 07/24/18 10:29 11:50 16:44 WBC RBC Hgb Hct MCV MCH MCHC RDW RDW Differential Plt Count MPV Immature Gran % (Auto) Neut % (Auto) Lymph % (Auto) Wells % (Auto) Eos % (Auto) Baso % (Auto) Absolute Neuts (auto) Absolute Lymphs (auto) Total Counted Differential Comment Sodium Potassium Chloride Carbon Dioxide Anion Gap BUN Creatinine Estim Creat Clear Calc Est GFR (MDRD) Af Amer Est GFR (MDRD) Non-Af BUN/Creatinine Ratio Glucose Calcium Phosphorus Magnesium POC Glucose 398 H 454 H* > 500 H* 07/24/18 07/24/18 07/24/18 18:05 21:36 21:43 WBC RBC Hgb Hct MCV MCH MCHC RDW RDW Differential Plt Count MPV Immature Gran % (Auto) Neut % (Auto) Lymph % (Auto) Wells % (Auto) Eos % (Auto) Baso % (Auto) Absolute Neuts (auto) Absolute Lymphs (auto) Total Counted Differential Comment Sodium Potassium Chloride Carbon Dioxide Anion Gap BUN Creatinine Estim Creat Clear Calc Est GFR (MDRD) Af Amer Est GFR (MDRD) Non-Af BUN/Creatinine Ratio Glucose 527 H* Calcium Phosphorus Magnesium POC Glucose > 500 H* 495 H* 07/25/18 07/25/18 07/25/18 01:19 01:27 04:23 WBC RBC Hgb Hct MCV MCH MCHC RDW RDW Differential Plt Count MPV Immature Gran % (Auto) Neut % (Auto) Lymph % (Auto) Wells % (Auto) Eos % (Auto) Baso % (Auto) Absolute Neuts (auto) Absolute Lymphs (auto) Total Counted Differential Comment Sodium 145 Potassium 2.7 L* Chloride 108 H Carbon Dioxide 28.0 Anion Gap 9 BUN 44 H Creatinine 1.65 H Estim Creat Clear Calc 25.03 Est GFR (MDRD) Af Amer 38 L Est GFR (MDRD) Non-Af 32 L BUN/Creatinine Ratio 26.7 H Glucose 476 H* 375 H Calcium 8.3 L Phosphorus Magnesium POC Glucose 481 H* 07/25/18 07/25/18 07/25/18 04:23 04:23 06:11 WBC 4.9 RBC 2.79 L Hgb 9.0 L Hct 25.9 L MCV 92.8 MCH 32.3 H MCHC 34.7 RDW 14.8 H RDW Differential 48.2 H Plt Count 124 L MPV 9.8 Immature Gran % (Auto) 0.800 Neut % (Auto) 82.0 H Lymph % (Auto) 7.7 L Wells % (Auto) 7.7 Eos % (Auto) 1.6 Baso % (Auto) 0.2 Absolute Neuts (auto) 4.0 Absolute Lymphs (auto) 0.38 L Total Counted Not Reportable Differential Comment Sodium Potassium Chloride Carbon Dioxide Anion Gap BUN Creatinine Estim Creat Clear Calc Est GFR (MDRD) Af Amer Est GFR (MDRD) Non-Af BUN/Creatinine Ratio Glucose Calcium Phosphorus 2.6 Magnesium 1.6 POC Glucose 336 H Microbiology 07/20/18 12:10 Wound Drainage - Other Gram Stain - Final 07/20/18 12:10 Wound Drainage - Other Wound Culture - Preliminary Escherichia coli 07/20/18 12:10 Wound Drainage - Other Anaerobic Culture - Preliminary Checking for anaerobes, further studies to follow. 07/20/18 09:45 Blood Culture (Wb) - Anticubital Right Blood Culture - Preliminary Clostridium clostridioforme Medical Necessity - Tobacco Use Smoking Status: Never smoker Tobacco Use: Non-smoker Assessment/Plan All Active Problems (Last Reviewed 03/01/18 @ 13:10 by Victoria Fu) Large bowel perforation (Acute) Septic shock (Acute) DEMETRA (acute kidney injury) (Acute) Pneumococcal pneumonia (Acute) SVT (supraventricular tachycardia) (Acute) RECOMMENDATIONS: 1. Monitor fluid status 2. Continue TPN, and insulin and potassium 3. Continue antibiotics for a 14 day course 4. Antiarrhythmics per cardiology 5. Continue Pulmicort and aerosol therapy 6. Okay to leave the intensive care unit from my perspective IMPRESSIONS: 1. Septic shock secondary to bowel perforation Patient currently on Unasyn therapy. She does not appear to have a penicillin allergy. Patient appears to be responding well to current therapy. Anticipate 10-14 days of total antibiotic therapy. Patient does not appear to have bowel motility at this time. Clear drainage from the wound likely secondary to extravasation of fluid and appears to be improving. This does not appear purulent. 2. Acute hypoxic respiratory failure/history of COPD Patient does have a history of COPD in the past. Continue with bronchodilators and Pulmicort for substitution of Advair. Chest x-ray shows only areas of atelectasis, which were likely secondary to abdominal pain. Patient with auto diuresis yesterday. Likely secondary to ATN. Decreased oxygenation overnight may be secondary to obstructive sleep apnea. This would need to be evaluated as an outpatient.. Encourage incentive spirometer. 3. Diabetes mellitus Patient will be n.p.o. given acute surgical intervention. Following with sliding scale insulin is likely appropriate at this time. Patient's blood sugars are significantly elevated. Will likely need to add insulin to TPN bag. 4. Acute on chronic kidney disease stage III Patient appears to be entering the polyuric phase of ATN. Patient did not receive some Lasix therapy yesterday, but has had significant output overnight. Will hold on any diuretic therapy. Will attempt to keep patient relatively euvolemic, but will have to watch closely given volume of TPN. 5. History of CVA/hyperlipidemia/hypothyroidism/osteoarthritis/multiple surgeries/multiple allergies/advanced age Complicates care, management, recovery and prognosis. Patient does have a right facial droop at baseline. Hold medications for now. Possibly reinitiate Synthroid once patient has bowel function. Hold baseline hypertensive medications. Code Visit Inpatient E&M: 47377 Subs Hosp L3
--- NOTE | 2018-07-25 07:28 | PN_ITS ---
Patient Problems: Active and Suspected Problems (Last Reviewed 03/01/18 @ 13:10 by Victoria Fu) Large bowel perforation (Acute) Septic shock (Acute) Subjective: Patient was seen and examined. Remains confused, although less today. Alert, oriented to herself, not to place or time. Repeats questions back. Able to count 1 to 10 and backwards with some perserverance. Objective: Physical Exam General: Alert, confused, oriented to person only, not pale or jaundiced. HEENT: Atraumatic, PERRLA, EOMI, Normocephalic, Oral: Dry Mucosa Neck: Supple, No JVD, Negative Carotid Bruits Lungs: Clear to auscultation, Normal air movement Cardiovascular: Regular rate, Regular Rhythm, Normal S1, Normal S2, No murmurs Abdomen: Bowel Sounds Present, Soft, Non Tender, Non-Distended, - - Left-sided colostomy, midline dressing intact, abdomen soft Extremities: No edema Skin: No rashes, No breakdown Musculoskeletal: No Tenderness to Palpation of Joints or Extremities Lymphatic: No Cervical, Supraclavicular, or Inguinal Adenopathy Neurological: Cranial nerves II-XII grossly intact except for right facial droop present on admission, Neuro grossly intact Psych/Mental Status: Normal Affect, Appropriate Vitals/I&O's: Vital Signs Temp Pulse Resp BP Pulse Ox 97.9 F 73 16 140/44 H 94 07/25/18 04:00 07/25/18 06:00 07/25/18 06:00 07/25/18 06:00 07/25/18 06:00 Oxygen Flow Rate (L/min) 2 Oxygen Delivery Method Nasal Cannula Weight: 83 kg Body Mass Index (BMI) 29.2 Intake and Output for Last 24 Hours 07/23/18 07/24/18 07/25/18 23:59 23:59 23:59 Intake Total 1717.2 / 1717.2 1973.7 / 1973.7 1301.4 / 1301.4 Output Total 5878 / 5878 3303 / 3303 1974 / 1974 Balance -4160.8 / -4160.8 -1329.3 / -1329.3 -673.6 / -673.6 Microbiology Past 72 Hours 07/20/18 12:10 Wound Drainage - Other Gram Stain - Final 07/20/18 12:10 Wound Drainage - Other Wound Culture - Preliminary Escherichia coli 07/20/18 12:10 Wound Drainage - Other Anaerobic Culture - Final Bacteroides thetaiotaomicron Bacteroides caccae Anaerobic cocci 07/20/18 09:45 Blood Culture (Wb) - Anticubital Right Blood Culture - Preliminary Clostridium clostridioforme Laboratory Results 07/24/18 10:29: POC Glucose 398 H 07/24/18 11:50: POC Glucose 454 H* 07/24/18 16:44: POC Glucose > 500 H* 07/24/18 18:05: POC Glucose > 500 H* 07/24/18 21:36: POC Glucose 495 H* 07/24/18 21:43: Glucose 527 H* 07/25/18 01:19: POC Glucose 481 H* 07/25/18 01:27: Glucose 476 H* 07/25/18 04:23: Sodium 145, Potassium 2.7 L*, Chloride 108 H, Carbon Dioxide 28.0, Anion Gap 9, BUN 44 H, Creatinine 1.65 H, Estim Creat Clear Calc 25.03, Est GFR (MDRD) Af Amer 38 L, Est GFR (MDRD) Non-Af 32 L, BUN/Creatinine Ratio 26.7 H, Glucose 375 H, Calcium 8.3 L 07/25/18 04:23: WBC 4.9, RBC 2.79 L, Hgb 9.0 L, Hct 25.9 L, MCV 92.8, MCH 32.3 H , MCHC 34.7, RDW 14.8 H, RDW Differential 48.2 H, Plt Count 124 L, MPV 9.8, Immature Gran % (Auto) 0.800, Neut % (Auto) 82.0 H, Lymph % (Auto) 7.7 L, [place] % (Auto) 7.7, Eos % (Auto) 1.6, Baso % (Auto) 0.2, Absolute Neuts (auto) 4.0, Absolute Lymphs (auto) 0.38 L, Total Counted Not Reportable 07/25/18 04:23: Phosphorus 2.6, Magnesium 1.6 07/25/18 06:11: POC Glucose 336 H Current Medications Acetaminophen (Tylenol) 650 mg PO Q6H PRN PRN PRN Reason: Mild Pain (1-3)/Temp > 100.7 F Albuterol/Ipratropium (Duoneb) 3 ml INHALATION Q4H PRN PRN PRN Reason: SHORTNESS OF BREATH Budesonide (Pulmicort Aerosol) 0.5 mg INHALATION BID.RT [facility] Last Admin: 07/24/18 18:47 Dose: 0.5 mg Chlorhexidine Gluconate () 1 each TOPICAL DAILY [facility] Last Admin: 07/25/18 06:12 Dose: 1 each Dextrose (D50w Syringe) 0 gm IV X1 PRN; Protocol PRN Reason: Hypoglycemia Glucagon () 1 mg IM .X1 PRN PRN Reason: Hypoglycemia Heparin Sodium (Porcine) (Heparin Na) 5,000 unit SC BID [facility] Last Admin: 07/24/18 21:48 Dose: 5,000 unit Sodium Chloride () 250 mls @ 15 mls/hr IV .[id number] PRN PRN Reason: SALINE FLUSH Last Admin: 07/21/18 09:47 Dose: 15 mls/hr Sodium Chloride () 250 mls @ 15 mls/hr IV .[id number] PRN PRN Reason: SALINE FLUSH Amiodarone HCl/Dextrose (Nexterone 360 Mg/200 Ml Bag) 360 mg in 200 mls @ 16.667 mls/hr CONT INF .Q12H [facility] PRN Reason: 0.5 MG/MIN Last Admin: 07/24/18 21:30 Dose: 16.667 mls/hr Ampicillin Sodium/Sulbactam (Sodium 3 gm/ Sodium Chloride) 112 mls @ 150 mls/ hr IV Q8 [facility] Last Admin: 07/25/18 06:12 Dose: 150 mls/hr Multivitamins 10 ml/ Chromium/Copper/Manganese/Seleni/Zn 1 ml/ Folic Acid 1 mg/ Famotidine 20 mg/ Amino Acids/Electrolytes 2,013.2 mls @ 84 mls/hr IV .[id number] [facility] Stop: 07/25/18 15:57 Last Admin: 07/24/18 15:35 Dose: 84 mls/hr Multivitamins 10 ml/ Chromium/Copper/Manganese/Seleni/Zn 1 ml/ Folic Acid 1 mg/ Famotidine 20 mg/ Amino Acids/Electrolytes 2,013.2 mls @ 84 mls/hr IV .[id number] [facility] Stop: 07/26/18 15:57 Potassium Phosphate 30 mm/ (Sodium Chloride) 260 mls @ 42 mls/hr IV X1 ONE Stop: 07/25/18 12:59 Insulin Glargine (Lantus (Bkc)) 20 units SC BID [facility] Insulin Human Lispro (Humalog Kwikpen (Bkc)) 0 unit SC Q4 [facility] PRN Reason: Protocol Last Admin: 07/25/18 06:12 Dose: 12 u Insulin Human Lispro (Humalog Kwikpen (Bkc)) 10 unit SC Q4 [facility] Last Admin: 07/25/18 06:12 Dose: 10 u Magnesium Hydroxide (Milk Of Magnesia) 30 ml PO DAILY PRN PRN PRN Reason: Constipation Metoprolol Tartrate (Lopressor (Beta Jose)) 5 mg IV Q6 PRN PRN Reason: TO CONTROL HEART RATE Last Admin: 07/21/18 19:35 Dose: 2.5 mg Morphine Sulfate () 1 mg IV Q4H PRN PRN PRN Reason: SEVERE PAIN (6-10/10) Ondansetron HCl (Zofran) 4 mg IV Q8H PRN PRN PRN Reason: NAUSEA Sodium Chloride () 10 - 40 ml IV UD PRN PRN Reason: MULTILUMEN/HICMAN CATH FLUSH Last Admin: 07/25/18 01:22 Dose: 40 ml Medical Necessity - Tobacco Use Smoking Status: Never smoker Tobacco Use: Non-smoker Assessment/Plan All Active Problems (Last Reviewed 03/01/18 @ 13:10 by Victoria Fu) Large bowel perforation (Acute) Septic shock (Acute) DEMETRA (acute kidney injury) (Acute) Pneumococcal pneumonia (Acute) SVT (supraventricular tachycardia) (Acute) 82 year old F with multiple comorbidities significant for Takusubo cardiomyopathy with SVTs, hypertension, type II DM, resident in a skilled nursing admitted with complaints of confusion and not feeling well as well as being diaphoretic. 1. Septic shock secondary to acute peritonitis secondary to perforated descending colon, status post surgery, resolved Blood cultures growing Clostridium clostridioforme, wound and urine cultures growing E. Coli, repeat blood cultures pending Remains on IV Unasyn, day 5. 2. Post-op/ICU delirium, not worsening, redirectable, will continue with non- pharmacologic management, transfer out of ICU 3. Postop day #5, ileus persistent because of ileus, status post exploratory laparotomy, colon resection and end colostomy, no stool in colostomy bag, kept NPO, bowel sounds are good, remains on TPN, general surgery following. 4. Hyperglycemia, in a type 2 DM, off metformin. NPO because of ileus, Blood sugars are elevated secondary to TPN, on Lantus 20 units BID as well as LIspro 10 units q4h and ISS 5. DEMETRA secondary to septic shock, likely elevated secondary to being off IV fluids, resolving, will trend BMP 6. Hypokalemia, hypomagnesemia, replaced , recheck at 5pm and in am. 7. History of SVT, in NSR, off Cardizem and metoprolol, cardiology ff, on amiodarone and prn metoprolol 8. Acute respiratory failure, patient electively intubated for surgery, resolved 9. Hypertension, will continue with prn metoprolol 10. COPD, not in acute exacerbation 11. Hypothyroidism, on Synthroid, will need to resume meds soon 12. DVT PPx- Heparin SC Code Visit Inpatient E&M: 47328 Subs Hosp L2
[2018-07-25] MEDS: Budesonide Respules 0.5 MG/2 ML AMPUL.NEB. INHALATION ×2 (07:35→19:30)
[2018-07-25 08:00] LABS: Bedside Glucose 329 mg/dL (70-110)
--- NOTE | 2018-07-25 08:00 | PN.SURG_ITS ---
Patient Problems: Active and Suspected Problems (Last Reviewed 03/01/18 @ 13:10 by Victoria Fu) Large bowel perforation (Acute) Septic shock (Acute) Subjective: Patient denies any abdominal pain and reports no nausea or vomiting. No issues overnight. - Physical Exam General: Alert, Oriented x3, Cooperative Lungs: Normal air movement Cardiovascular: Regular rate, Regular Rhythm Abdomen: Soft, Non Tender, Distended, - - No gas in the stoma bag. Incision is clean dry and intact. Vital Signs Temp Pulse Resp BP Pulse Ox 97.9 F 83 18 140/44 H 97 07/25/18 04:00 07/25/18 07:35 07/25/18 07:35 07/25/18 06:00 07/25/18 07:35 Oxygen Flow Rate (L/min) 2 Oxygen Delivery Method Room Air Weight: 182 lb 15.739 oz Body Mass Index (BMI) 29.2 Intake and Output for Last 24 Hours 07/23/18 07/24/18 07/25/18 23:59 23:59 23:59 Intake Total 1717.2 / 1717.2 1972.7 / 1973.7 1301.4 / 1301.4 Output Total 5878 / 5878 3303 / 3303 1974 / 1974 Balance -4160.8 / -4160.8 -1329.3 / -1329.3 -673.6 / -673.6 Microbiology Past 72 Hours 07/20/18 12:10 Gram Stain - Final Wound Drainage - Other Wound Culture - Preliminary Escherichia coli Anaerobic Culture - Final Bacteroides thetaiotaomicron Bacteroides caccae Anaerobic cocci 07/20/18 09:45 Blood Culture - Preliminary Blood Culture (Wb) - Anticubital Right Clostridium clostridioforme Laboratory Tests Past 24 Hrs 07/24/18 07/25/18 07/25/18 21:43 01:27 04:23 WBC RBC Hgb Hct MCV MCH MCHC RDW RDW Differential Plt Count MPV Immature Gran % (Auto) Neut % (Auto) Lymph % (Auto) [place] % (Auto) Eos % (Auto) Baso % (Auto) Absolute Neuts (auto) Absolute Lymphs (auto) Total Counted Sodium 145 Potassium 2.7 L* Chloride 108 H Carbon Dioxide 28.0 Anion Gap 9 BUN 44 H Creatinine 1.65 H Estim Creat Clear Calc 25.03 Est GFR (MDRD) Af Amer 38 L Est GFR (MDRD) Non-Af 32 L BUN/Creatinine Ratio 26.7 H Glucose 527 H* 476 H* 375 H Calcium 8.3 L Phosphorus Magnesium 07/25/18 07/25/18 04:23 04:23 WBC 4.9 RBC 2.79 L Hgb 9.0 L Hct 25.9 L MCV 92.8 MCH 32.3 H MCHC 34.7 RDW 14.8 H RDW Differential 48.2 H Plt Count 124 L MPV 9.8 Immature Gran % (Auto) 0.800 Neut % (Auto) 82.0 H Lymph % (Auto) 7.7 L [place] % (Auto) 7.7 Eos % (Auto) 1.6 Baso % (Auto) 0.2 Absolute Neuts (auto) 4.0 Absolute Lymphs (auto) 0.38 L Total Counted Not Reportable Sodium Potassium Chloride Carbon Dioxide Anion Gap BUN Creatinine Estim Creat Clear Calc Est GFR (MDRD) Af Amer Est GFR (MDRD) Non-Af BUN/Creatinine Ratio Glucose Calcium Phosphorus 2.6 Magnesium 1.6 POC Glucose 07/25/18 07/25/18 07/24/18 06:11 01:19 21:36 POC Glucose 336 H 481 H* 495 H* 07/24/18 07/24/18 07/24/18 18:05 16:44 11:50 POC Glucose > 500 H* > 500 H* 454 H* 07/24/18 10:29 POC Glucose 398 H Medical Necessity - Tobacco Use Smoking Status: Never smoker Tobacco Use: Non-smoker Assessment/Plan All Active Problems (Last Reviewed 03/01/18 @ 13:10 by Victoria Fu) Large bowel perforation (Acute) Septic shock (Acute) DEMETRA (acute kidney injury) (Acute) Pneumococcal pneumonia (Acute) SVT (supraventricular tachycardia) (Acute) 82-year-old female status post hemicolectomy for perforation 1. Postoperative ileus--patient still has no output in her colostomy bag. Continue n.p.o. and TPN until bowel function resumes. 2. Sepsis--antibiotics per primary team. Patient is growing several bacteria from several sources. 3. Encourage PT OT but patient is very weak. Nathen Church MD Pager: [facility] [address] [place] [address], [address] [place] [address] Office:
[2018-07-25] MEDS: Heparin Injection (Vial) 5,000 UNIT/ML VIAL 5000 UNIT SC ×2 (08:23→21:15)
[2018-07-25 09:51] LABS: Bedside Glucose 320 mg/dL (70-110)
[2018-07-25] MEDS: Ondansetron 4 MG/2 ML Vial IV ×2 (12:36→21:15)
[2018-07-25 15:06] LABS: Bedside Glucose 379 mg/dL (70-110)
[2018-07-25 17:45] LABS: Anion Gap 7 (5-15); BUN 42 mg/dL (7-18); BUN/Creat Ratio 30.4 RATIO (10-20); Calcium,Total 7.8 mg/dL (8.5-10.1); Chloride 112 mmol/L (98-107); Creatinine, Serum 1.38 mg/dL (0.55-1.02); EST Glomerular Filtration Rate 39 mL/min (>60); Est Glom Filt Rate - Afr Amer 47 mL/min (>60); Estimated Creatinine Clearance 29.93 ml/min; Glucose 330 mg/dL (74-106); Potassium 4.4 mmol/L (3.5-5.1); Sodium Level 144 mmol/L (136-145)
[2018-07-25 18:11] LABS: Bedside Glucose 314 mg/dL (70-110)
[2018-07-25 22:20] LABS: Bedside Glucose 263 mg/dL (70-110)
[2018-07-26] VITALS (34 sets, daily range): BP systolic 104–160; BP diastolic 45–73; PULSE 70–84; RESP 16–25; TEMP 36.5–37.7; O2SAT 93–96
[2018-07-26] MEDS: Insulin Lispro 100 UNIT/ML INSULN.PEN SC ×6 (02:03→21:45)
[2018-07-26] MEDS: Insulin Lispro 100 UNIT/ML INSULN.PEN 10 UNIT SC ×2 (02:03→06:02)
[2018-07-26 02:15] LABS: Bedside Glucose 302 mg/dL (70-110)
[2018-07-26 05:11] LABS: Anion Gap 8 (5-15); BUN 46 mg/dL (7-18); BUN/Creat Ratio 34.1 RATIO (10-20); Calcium,Total 7.9 mg/dL (8.5-10.1); Chloride 110 mmol/L (98-107); Creatinine, Serum 1.35 mg/dL (0.55-1.02); EST Glomerular Filtration Rate 40 mL/min (>60); Est Glom Filt Rate - Afr Amer 48 mL/min (>60); Glucose 307 mg/dL (74-106); Phosphorus 3.4 mg/dL (2.5-4.9); Potassium 3.5 mmol/L (3.5-5.1); Sodium Level 147 mmol/L (136-145)
[2018-07-26 06:35] LABS: Bedside Glucose 332 mg/dL (70-110)
[2018-07-26] MEDS: Budesonide Respules 0.5 MG/2 ML AMPUL.NEB. INHALATION ×2 (07:10→19:24)
--- NOTE | 2018-07-26 07:45 | RAD_ITS ---
STUDY: X-RAY - ABDOMEN/PELVIS REASON FOR EXAM: Female, 82 years old. Abdominal distention. TECHNIQUE: Two AP supine views of the abdomen and pelvis. COMPARISON: None. FINDINGS: Increased markings at the right lung base suggestive of atelectasis and/or infiltrate. There is a moderate amount of colonic fecal material. A colostomy is seen in the left lower quadrant. The visualized liver, spleen and kidneys are grossly normal in size and morphology. Normal soft tissue structures. There are diffuse degenerative changes of the visualized lumbar spine. Dextroscoliosis. Bilateral total hip replacement. RAD/Abdomen Single View (Portable) IMPRESSION: Moderate amount of fecal material is seen in the colon. A colostomy is seen in the left lower quadrant. Atelectasis and/or infiltrate in the right lower lobe. Electronically Signed: Jourdan De La Fuente MD at 11:10 EDT Tel [phone], Service support ,
--- NOTE | 2018-07-26 08:31 | PCM.PN.SRG ---
Patient Problems: Active and Suspected Problems (Last Reviewed 03/01/18 @ 13:10 by Victoria Fu) Large bowel perforation (Acute) Septic shock (Acute) Subjective: Patient denies abdominal pain, nausea or vomiting, still has not had any flatus in her colostomy bag, on TPN - Physical Exam General: Alert, Cooperative, No apparent distress HEENT: Atraumatic Abdomen: Soft, Non Tender, Distended - Mild, - - Incision with yuriy some mild ecchymosis, serous fluid draining at the bottom of the wound no signs of infection, colostomy mild edema no flatus in the bag, Vital Signs Temp Pulse Resp BP Pulse Ox 97.7 F L 82 23 H 152/72 H 94 07/26/18 08:00 07/26/18 08:00 07/26/18 08:00 07/26/18 08:00 07/26/18 08:00 Oxygen Flow Rate (L/min) 2 Oxygen Delivery Method Room Air Weight: 181 lb 10.574 oz Body Mass Index (BMI) 29.2 Intake and Output for Last 24 Hours 07/24/18 07/25/18 07/26/18 23:59 23:59 23:59 Intake Total 1973.7 / 1973.7 3844.4 / 3844.4 715 / 715 Output Total 3303 / 3303 3500 / 3500 350 / 350 Balance -1329.3 / -1329.3 344.4 / 344.4 365 / 365 Microbiology Past 72 Hours 07/23/18 15:20 Blood Culture - Preliminary Blood Culture (Wb) - Other No growth in 48 hours. 07/20/18 09:45 Blood Culture - Final Blood Culture (Wb) - Anticubital Right Clostridium clostridioforme 07/20/18 12:10 Gram Stain - Final Wound Drainage - Other Wound Culture - Final Escherichia coli Acinetobacter spp Anaerobic Culture - Final Bacteroides thetaiotaomicron Bacteroides caccae Anaerobic cocci Laboratory Tests Past 24 Hrs 07/25/18 07/26/18 17:05 04:30 Sodium 144 147 H Potassium 4.4 3.5 Chloride 112 H 110 H Carbon Dioxide 25.0 29.0 Anion Gap 7 8 BUN 42 H 46 H Creatinine 1.38 H 1.35 H Estim Creat Clear Calc 29.93 30.60 Est GFR (MDRD) Af Amer 47 L 48 L Est GFR (MDRD) Non-Af 39 L 40 L BUN/Creatinine Ratio 30.4 H 34.1 H Glucose 330 H 307 H Calcium 7.8 L 7.9 L Phosphorus 3.4 Magnesium 2.0 POC Glucose 07/26/18 07/26/18 07/25/18 05:59 02:00 21:12 POC Glucose 332 H 302 H 263 H 07/25/18 07/25/18 07/25/18 17:55 14:59 09:44 POC Glucose 314 H 379 H 320 H Medical Necessity - Tobacco Use Smoking Status: Never smoker Tobacco Use: Non-smoker Assessment/Plan All Active Problems (Last Reviewed 03/01/18 @ 13:10 by Victoria Fu) Large bowel perforation (Acute) Septic shock (Acute) DEMETRA (acute kidney injury) (Acute) Pneumococcal pneumonia (Acute) SVT (supraventricular tachycardia) (Acute) 82-year-old female with pneumoperitoneum from perforated splenic flexure of the colon POD#6 s/p ex lap, L colon resection, end colostomy; septic shock-resolved, history of COPD, diabetes, elevated lactic acid-resolved, tachycardia-resolved 1. N.p.o./TPN. Await bowel function, KUB did show some gas in the right colon as well as the transverse near the stoma site; however even digitizing the stoma no obvious hard stool/ able to reach. 2. Tachycardia-resolved, on amiodarone drip per ICU 3. Colostomy-mild edema continue to monitor. 4. Creatinine improved. Aurora Young M.D. Pager: [phone] [facility] [address] [place] [address], [facility], [address] [place] [address] Office: [phone]
--- NOTE | 2018-07-26 08:34 | PN.SURG_ITS ---
Patient Problems: Active and Suspected Problems (Last Reviewed 03/01/18 @ 13:10 by Victoria Fu) Large bowel perforation (Acute) Septic shock (Acute) Subjective: Patient denies abdominal pain, nausea or vomiting, still has not had any flatus in her colostomy bag, on TPN - Physical Exam General: Alert, Cooperative, No apparent distress HEENT: Atraumatic Abdomen: Soft, Non Tender, Distended - Mild, - - Incision with yuriy some mild ecchymosis, serous fluid draining at the bottom of the wound no signs of infection, colostomy mild edema no flatus in the bag, Vital Signs Temp Pulse Resp BP Pulse Ox 97.7 F L 82 23 H 152/72 H 94 07/26/18 08:00 07/26/18 08:00 07/26/18 08:00 07/26/18 08:00 07/26/18 08:00 Oxygen Flow Rate (L/min) 2 Oxygen Delivery Method Room Air Weight: 181 lb 10.574 oz Body Mass Index (BMI) 29.2 Intake and Output for Last 24 Hours 07/24/18 07/25/18 07/26/18 23:59 23:59 23:59 Intake Total 1973.7 / 1973.7 3844.4 / 3844.4 715 / 715 Output Total 3303 / 3303 3500 / 3500 350 / 350 Balance -1329.3 / -1329.3 344.4 / 344.4 365 / 365 Microbiology Past 72 Hours 07/23/18 15:20 Blood Culture - Preliminary Blood Culture (Wb) - Other No growth in 48 hours. 07/20/18 09:45 Blood Culture - Final Blood Culture (Wb) - Anticubital Right Clostridium clostridioforme 07/20/18 12:10 Gram Stain - Final Wound Drainage - Other Wound Culture - Final Escherichia coli Acinetobacter spp Anaerobic Culture - Final Bacteroides thetaiotaomicron Bacteroides caccae Anaerobic cocci Laboratory Tests Past 24 Hrs 07/25/18 07/26/18 17:05 04:30 Sodium 144 147 H Potassium 4.4 3.5 Chloride 112 H 110 H Carbon Dioxide 25.0 29.0 Anion Gap 7 8 BUN 42 H 46 H Creatinine 1.38 H 1.35 H Estim Creat Clear Calc 29.93 30.60 Est GFR (MDRD) Af Amer 47 L 48 L Est GFR (MDRD) Non-Af 39 L 40 L BUN/Creatinine Ratio 30.4 H 34.1 H Glucose 330 H 307 H Calcium 7.8 L 7.9 L Phosphorus 3.4 Magnesium 2.0 POC Glucose 07/26/18 07/26/18 07/25/18 05:59 02:00 21:12 POC Glucose 332 H 302 H 263 H 07/25/18 07/25/18 07/25/18 17:55 14:59 09:44 POC Glucose 314 H 379 H 320 H Medical Necessity - Tobacco Use Smoking Status: Never smoker Tobacco Use: Non-smoker Assessment/Plan All Active Problems (Last Reviewed 03/01/18 @ 13:10 by Victoria Fu) Large bowel perforation (Acute) Septic shock (Acute) DEMETRA (acute kidney injury) (Acute) Pneumococcal pneumonia (Acute) SVT (supraventricular tachycardia) (Acute) 82-year-old female with pneumoperitoneum from perforated splenic flexure of the colon POD#6 s/p ex lap, L colon resection, end colostomy; septic shock-resolved , history of COPD, diabetes, elevated lactic acid-resolved, tachycardia-resolved 1. N.p.o./TPN. Await bowel function, KUB did show some gas in the right colon as well as the transverse near the stoma site; however even digitizing the stoma no obvious hard stool/ able to reach. 2. Tachycardia-resolved, on amiodarone drip per ICU 3. Colostomy-mild edema continue to monitor. 4. Creatinine improved. Aurora Young M.D. Pager: [phone] [facility] [address] [place] [address], [facility], [address] [place] [address] Office: [phone]
--- NOTE | 2018-07-26 10:04 | PCM.PN.INT ---
Subjective: Patient did well overnight. Patient with no complaints this morning. Patient denies any abdominal pain, nausea or vomiting. Patient has been maintained on room air without complication. No hypotension was reported overnight. General: Alert, Oriented x3, Cooperative, No apparent distress, - - Speaking in full sentences. HEENT: Atraumatic, PERRLA, EOMI, Normocephalic, - - No scleral icterus or injection noted. Oral: Moist Mucosa, No Gingival or Mucosal Lesions/ Ulcerations Neck: Supple, No JVD, No Nodes, Trachea Midline Lungs: No rhonchi, No wheeze, No rales, Diminished, - - Fair effort. Symmetric expansion. Cardiovascular: Regular rate, Regular Rhythm, Normal S1, Normal S2, No murmurs, No rub noted, No Gallop Abdomen: Soft, Non Tender, Non-Distended, Hypoactive Bowel Sounds, Obese, - - Ostomy is clean, dry and intact. No exudate appreciated Extremities: No clubbing, No cyanosis, Edema - Continues to improve Skin: - - Grossly unchanged compared to previous Musculoskeletal: No Tenderness to Palpation of Joints or Extremities, No Muscle Wasting Lymphatic: No Cervical, Supraclavicular, or Inguinal Adenopathy Neurological: Cranial nerves II-XII grossly intact, Neuro grossly intact, Motor Exam 5/5 strength throughout Psych/Mental Status: Alert and oriented to time, place, person, mood and affect Vital Signs Temp Pulse Resp BP Pulse Ox 36.8 C 74 16 155/73 H 96 07/26/18 09:00 07/26/18 09:00 07/26/18 09:00 07/26/18 09:00 07/26/18 08:54 Oxygen Flow Rate (L/min) 2 Oxygen Delivery Method Room Air Weight: 82.4 kg Body Mass Index (BMI) 29.2 Intake and Output for Last 24 Hours 07/24/18 07/25/18 07/26/18 23:59 23:59 23:59 Intake Total 1973.7 / 1973.7 3844.4 / 3844.4 715 / 715 Output Total 3303 / 3303 3500 / 3500 350 / 350 Balance -1329.3 / -1329.3 344.4 / 344.4 365 / 365 Labs (Last 48 Hours) 07/24/18 07/24/18 07/24/18 10:29 11:50 16:44 WBC RBC Hgb Hct MCV MCH MCHC RDW RDW Differential Plt Count MPV Immature Gran % (Auto) Neut % (Auto) Lymph % (Auto) [place] % (Auto) Eos % (Auto) Baso % (Auto) Absolute Neuts (auto) Absolute Lymphs (auto) Total Counted Sodium Potassium Chloride Carbon Dioxide Anion Gap BUN Creatinine Estim Creat Clear Calc Est GFR (MDRD) Af Amer Est GFR (MDRD) Non-Af BUN/Creatinine Ratio Glucose Calcium Phosphorus Magnesium POC Glucose 398 H 454 H* > 500 H* 07/24/18 07/24/18 07/24/18 18:05 21:36 21:43 WBC RBC Hgb Hct MCV MCH MCHC RDW RDW Differential Plt Count MPV Immature Gran % (Auto) Neut % (Auto) Lymph % (Auto) [place] % (Auto) Eos % (Auto) Baso % (Auto) Absolute Neuts (auto) Absolute Lymphs (auto) Total Counted Sodium Potassium Chloride Carbon Dioxide Anion Gap BUN Creatinine Estim Creat Clear Calc Est GFR (MDRD) Af Amer Est GFR (MDRD) Non-Af BUN/Creatinine Ratio Glucose 527 H* Calcium Phosphorus Magnesium POC Glucose > 500 H* 495 H* 07/25/18 07/25/18 07/25/18 01:19 01:27 04:23 WBC RBC Hgb Hct MCV MCH MCHC RDW RDW Differential Plt Count MPV Immature Gran % (Auto) Neut % (Auto) Lymph % (Auto) [place] % (Auto) Eos % (Auto) Baso % (Auto) Absolute Neuts (auto) Absolute Lymphs (auto) Total Counted Sodium 145 Potassium 2.7 L* Chloride 108 H Carbon Dioxide 28.0 Anion Gap 9 BUN 44 H Creatinine 1.65 H Estim Creat Clear Calc 25.03 Est GFR (MDRD) Af Amer 38 L Est GFR (MDRD) Non-Af 32 L BUN/Creatinine Ratio 26.7 H Glucose 476 H* 375 H Calcium 8.3 L Phosphorus Magnesium POC Glucose 481 H* 07/25/18 07/25/18 07/25/18 04:23 04:23 06:11 WBC 4.9 RBC 2.79 L Hgb 9.0 L Hct 25.9 L MCV 92.8 MCH 32.3 H MCHC 34.7 RDW 14.8 H RDW Differential 48.2 H Plt Count 124 L MPV 9.8 Immature Gran % (Auto) 0.800 Neut % (Auto) 82.0 H Lymph % (Auto) 7.7 L [place] % (Auto) 7.7 Eos % (Auto) 1.6 Baso % (Auto) 0.2 Absolute Neuts (auto) 4.0 Absolute Lymphs (auto) 0.38 L Total Counted Not Reportable Sodium Potassium Chloride Carbon Dioxide Anion Gap BUN Creatinine Estim Creat Clear Calc Est GFR (MDRD) Af Amer Est GFR (MDRD) Non-Af BUN/Creatinine Ratio Glucose Calcium Phosphorus 2.6 Magnesium 1.6 POC Glucose 336 H 07/25/18 07/25/18 07/25/18 07:58 09:44 14:59 WBC RBC Hgb Hct MCV MCH MCHC RDW RDW Differential Plt Count MPV Immature Gran % (Auto) Neut % (Auto) Lymph % (Auto) [place] % (Auto) Eos % (Auto) Baso % (Auto) Absolute Neuts (auto) Absolute Lymphs (auto) Total Counted Sodium Potassium Chloride Carbon Dioxide Anion Gap BUN Creatinine Estim Creat Clear Calc Est GFR (MDRD) Af Amer Est GFR (MDRD) Non-Af BUN/Creatinine Ratio Glucose Calcium Phosphorus Magnesium POC Glucose 329 H 320 H 379 H 07/25/18 07/25/18 07/25/18 17:05 17:55 21:12 WBC RBC Hgb Hct MCV MCH MCHC RDW RDW Differential Plt Count MPV Immature Gran % (Auto) Neut % (Auto) Lymph % (Auto) [place] % (Auto) Eos % (Auto) Baso % (Auto) Absolute Neuts (auto) Absolute Lymphs (auto) Total Counted Sodium 144 Potassium 4.4 Chloride 112 H Carbon Dioxide 25.0 Anion Gap 7 BUN 42 H Creatinine 1.38 H Estim Creat Clear Calc 29.93 Est GFR (MDRD) Af Amer 47 L Est GFR (MDRD) Non-Af 39 L BUN/Creatinine Ratio 30.4 H Glucose 330 H Calcium 7.8 L Phosphorus Magnesium POC Glucose 314 H 263 H 07/26/18 07/26/18 07/26/18 02:00 04:30 05:59 WBC RBC Hgb Hct MCV MCH MCHC RDW RDW Differential Plt Count MPV Immature Gran % (Auto) Neut % (Auto) Lymph % (Auto) [place] % (Auto) Eos % (Auto) Baso % (Auto) Absolute Neuts (auto) Absolute Lymphs (auto) Total Counted Sodium 147 H Potassium 3.5 Chloride 110 H Carbon Dioxide 29.0 Anion Gap 8 BUN 46 H Creatinine 1.35 H Estim Creat Clear Calc 30.60 Est GFR (MDRD) Af Amer 48 L Est GFR (MDRD) Non-Af 40 L BUN/Creatinine Ratio 34.1 H Glucose 307 H Calcium 7.9 L Phosphorus 3.4 Magnesium 2.0 POC Glucose 302 H 332 H Microbiology 07/23/18 15:20 Blood Culture (Wb) - Other Blood Culture - Preliminary No growth in 48 hours. 07/20/18 09:45 Blood Culture (Wb) - Anticubital Right Blood Culture - Final Clostridium clostridioforme 07/20/18 12:10 Wound Drainage - Other Gram Stain - Final 07/20/18 12:10 Wound Drainage - Other Wound Culture - Final Escherichia coli Acinetobacter spp 07/20/18 12:10 Wound Drainage - Other Anaerobic Culture - Final Bacteroides thetaiotaomicron Bacteroides caccae Anaerobic cocci Medical Necessity - Tobacco Use Smoking Status: Never smoker Tobacco Use: Non-smoker Assessment/Plan All Active Problems (Last Reviewed 03/01/18 @ 13:10 by Victoria Fu) Large bowel perforation (Acute) Septic shock (Acute) DEMETRA (acute kidney injury) (Acute) Pneumococcal pneumonia (Acute) SVT (supraventricular tachycardia) (Acute) RECOMMENDATIONS: 1. Monitor fluid status 2. Continue TPN, insulin and potassium 3. Continue antibiotics for a 14 day course 4. Antiarrhythmics per cardiology 5. Continue Pulmicort and aerosol therapy 6. Hemodynamically stable on room air. Will sign off from a critical care perspective IMPRESSIONS: 1. Septic shock secondary to bowel perforation Patient currently on Unasyn therapy. She does not appear to have a penicillin allergy. Patient appears to be responding well to current therapy. Anticipate 10-14 days of total antibiotic therapy. Patient does not appear to have bowel motility at this time. Clear drainage from the wound likely secondary to extravasation of fluid and appears to be improving. This does not appear purulent. Patient has remained hemodynamically stable on room air. Will sign off from a critical care perspective. 2. Acute hypoxic respiratory failure/history of COPD Patient does have a history of COPD in the past. Continue with bronchodilators and Pulmicort for substitution of Advair. Chest x-ray shows only areas of atelectasis, which were likely secondary to abdominal pain. Encourage incentive spirometer. Decreased oxygenation overnight may be secondary to obstructive sleep apnea. This would need to be evaluated as an outpatient.. Encourage incentive spirometer. 3. Diabetes mellitus Patient will be n.p.o. given acute surgical intervention. Following with sliding scale insulin is likely appropriate at this time. Patient's blood sugars are significantly elevated. Patient should continue with insulin therapy. Anticipate much improved blood sugars once TPN can be discontinued. 4. Acute on chronic kidney disease stage III Patient appears to be entering the polyuric phase of ATN. Will attempt to keep patient relatively euvolemic, but will have to watch closely given volume of TPN. 5. History of CVA/hyperlipidemia/hypothyroidism/osteoarthritis/multiple surgeries/multiple allergies/advanced age Complicates care, management, recovery and prognosis. Patient does have a right facial droop at baseline. Hold medications for now. Possibly reinitiate Synthroid once patient has bowel function. Hold baseline hypertensive medications. Code Visit Inpatient E&M: 44877 Subs Hosp L2
[2018-07-26] MEDS: Heparin Injection (Vial) 5,000 UNIT/ML VIAL 5000 UNIT SC ×2 (10:19→21:46)
[2018-07-26] MEDS: Insulin Lispro 100 UNIT/ML INSULN.PEN 15 UNIT SC ×3 (10:28→18:23)
--- NOTE | 2018-07-26 10:45 | NURSING ---
[facility] Informed this RN that pt has not yet received flu shot from them. She stated that if family wants her to have flu shot in hospital, okay with them. Spoke with pt and pt's daughter. wanting flu shot while in hospital.
[2018-07-26 11:11] LABS: Bedside Glucose 282 mg/dL (70-110)
--- NOTE | 2018-07-26 11:20 | CASEMGMT ---
Patient is from [facility]. faxed updates to [facility]. Plan: d/c back to [facility] pending patient being ready Marisel ZHAO
--- NOTE | 2018-07-26 12:20 | PCM.PN.CARD ---
Subjectve: The patient was evaluated earlier this day. She denied any obvious sensation of palpitations, chest discomfort, or worsening shortness of breath or dyspnea. She was also being evaluated at that time by Dr. Young for concerns of her underlying gastrointestinal disease process. Objective: Vital Signs Temp Pulse Resp BP Pulse Ox 99.5 F H 83 24 H 154/61 H 93 07/26/18 10:54 07/26/18 12:00 07/26/18 12:00 07/26/18 12:00 07/26/18 12:00 Oxygen Flow Rate (L/min) 2 Oxygen Delivery Method Room Air Weight: 181 lb 10.574 oz Body Mass Index (BMI) 29.2 Intake and Output for Last 24 Hours 07/24/18 07/25/18 07/26/18 23:59 23:59 23:59 Intake Total 1973.7 / 1973.7 3844.4 / 3844.4 1529.2 / 1529.2 Output Total 3303 / 3303 3500 / 3500 450 / 450 Balance -1329.3 / -1329.3 344.4 / 344.4 1079.2 / 1079.2 General: Awake, Alert, Cooperative, No Acute Distress HEENT: Atraumatic, Normocephalic, PERRL, EOMI, Sclera Non Icteric Oral: Moist Mucosa Neck: Supple, Good ROM, No JVD Lungs: Clear to auscultation Cardiovascular: Regular Rhythm, Normal S1, Normal S2 Abdomen: Hypoactive Bowel Sounds Extremities: No edema 07/25/18 17:05: Sodium 144, Potassium 4.4, Chloride 112 H, Carbon Dioxide 25.0, Anion Gap 7, BUN 42 H, Creatinine 1.38 H, Est GFR (MDRD) Af Amer 47 L, Est GFR (MDRD) Non-Af 39 L, BUN/Creatinine Ratio 30.4 H, Glucose 330 H, Calcium 7.8 L 07/26/18 04:30: Sodium 147 H, Potassium 3.5, Chloride 110 H, Carbon Dioxide 29.0, Anion Gap 8, BUN 46 H, Creatinine 1.35 H, Est GFR (MDRD) Af Amer 48 L, Est GFR (MDRD) Non-Af 40 L, BUN/Creatinine Ratio 34.1 H, Glucose 307 H, Calcium 7.9 L, Phosphorus 3.4, Magnesium 2.0 Rhythm: Sinus rhythm Medical Necessity - Tobacco Use Smoking Status: Never smoker Tobacco Use: Non-smoker Assessment/Plan 1. Supraventricular tachycardia The patient has had recurrent supraventricular tachycardia. Based upon her cardiac rhythm strips it appears she has had evidence of a potential atrial flutter as well as a supraventricular tachycardia with aberrancy-responsive to IV adenosine therapy. 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 Her current recurrent supraventricular tachycardia may be exacerbated by her underlying acute noncardiac condition/sepsis syndrome. She remains unable to take oral medical therapy. Once her gastrointestinal tract related issues improve then hopefully she can be changed back to oral medications such as rate limiting therapy with beta-blockers as well as if need be antiarrhythmic therapy with amiodarone. In the interim she is on antiarrhythmic therapy with IV amiodarone. Over time, based upon her recurrent episodes, she may also need to be considered for formal EP consultation for possible EPS/RFA. 2. Takotsubo syndrome The patient has a history of an underlying non-CAD related cardiomyopathy compatible with a Takotsubo syndrome lash apical ballooning interim. Over time her LV systolic function has improved. Her recent noninvasive studies would suggest preserved overall LV systolic function and no obvious evidence of myocardial ischemia to suggest the development of underlying CAD. Thus at the present time she will need to be followed, during the stressful event, for any obvious recurrence of the aforementioned syndrome. She may need, depending upon her clinical course, to be reevaluated with echocardiographic studies, etc. 3. CAD The patient has a history of LAD mild calcification as noted above. She was not described as having angiographically significant appearing CAD. Her recent pharmacologic stress nuclear imaging study would not suggest any obvious hemodynamically significant CAD as she had no obvious evidence of ongoing myocardial ischemia. Thus she should continue risk factor evaluation care as deemed appropriate when she is able. 4. Hyperlipidemia The patient should continue evaluation and medical management as deemed appropriate for her age when she is able. 5. Diabetes mellitus She will need to continue under the care of internal medicine for this. 6. COPD She is being evaluated by internal medicine and pulmonology. 7. Hypothyroidism Again she will need to continue under the care of internal medicine for this. If she remains on amiodarone she will need to have her thyroid functions followed and medications adjusted as deemed appropriate. 8. Colon perforation She is now status post surgical intervention. She continues to be followed by general surgery. According to Dr. Young she may need further evaluation and care of her gastrointestinal tract with respect to improving her motility related issues. 9. Sepsis syndrome This is thought due to her underlying colon perforation. She continues supportive measures in the ICU. 10. Acute renal insufficiency Her creatinine level was markedly elevated upon admission. Her renal function has improved however it does wax and wane. This note was generated with [employer] dictation software. It may contain incorrect words, spelling, and punctuation that were not noted in checking the note before signing.
--- NOTE | 2018-07-26 12:24 | PN.CARD_ITS ---
Subjectve: The patient was evaluated earlier this day. She denied any obvious sensation of palpitations, chest discomfort, or worsening shortness of breath or dyspnea. She was also being evaluated at that time by Dr. Young for concerns of her underlying gastrointestinal disease process. Objective: Vital Signs Temp Pulse Resp BP Pulse Ox 99.5 F H 83 24 H 154/61 H 93 07/26/18 10:54 07/26/18 12:00 07/26/18 12:00 07/26/18 12:00 07/26/18 12:00 Oxygen Flow Rate (L/min) 2 Oxygen Delivery Method Room Air Weight: 181 lb 10.574 oz Body Mass Index (BMI) 29.2 Intake and Output for Last 24 Hours 07/24/18 07/25/18 07/26/18 23:59 23:59 23:59 Intake Total 1973.7 / 1973.7 3844.4 / 3844.4 1529.2 / 1529.2 Output Total 3303 / 3303 3500 / 3500 450 / 450 Balance -1329.3 / -1329.3 344.4 / 344.4 1079.2 / 1079.2 General: Awake, Alert, Cooperative, No Acute Distress HEENT: Atraumatic, Normocephalic, PERRL, EOMI, Sclera Non Icteric Oral: Moist Mucosa Neck: Supple, Good ROM, No JVD Lungs: Clear to auscultation Cardiovascular: Regular Rhythm, Normal S1, Normal S2 Abdomen: Hypoactive Bowel Sounds Extremities: No edema 07/25/18 17:05: Sodium 144, Potassium 4.4, Chloride 112 H, Carbon Dioxide 25.0, Anion Gap 7, BUN 42 H, Creatinine 1.38 H, Est GFR (MDRD) Af Amer 47 L, Est GFR ( MDRD) Non-Af 39 L, BUN/Creatinine Ratio 30.4 H, Glucose 330 H, Calcium 7.8 L 07/26/18 04:30: Sodium 147 H, Potassium 3.5, Chloride 110 H, Carbon Dioxide 29.0 , Anion Gap 8, BUN 46 H, Creatinine 1.35 H, Est GFR (MDRD) Af Amer 48 L, Est GFR (MDRD) Non-Af 40 L, BUN/Creatinine Ratio 34.1 H, Glucose 307 H, Calcium 7.9 L, Phosphorus 3.4, Magnesium 2.0 Rhythm: Sinus rhythm Medical Necessity - Tobacco Use Smoking Status: Never smoker Tobacco Use: Non-smoker Assessment/Plan 1. Supraventricular tachycardia The patient has had recurrent supraventricular tachycardia. Based upon her cardiac rhythm strips it appears she has had evidence of a potential atrial flutter as well as a supraventricular tachycardia with aberrancy-responsive to IV adenosine therapy. 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 Her current recurrent supraventricular tachycardia may be exacerbated by her underlying acute noncardiac condition/sepsis syndrome. She remains unable to take oral medical therapy. Once her gastrointestinal tract related issues improve then hopefully she can be changed back to oral medications such as rate limiting therapy with beta-blockers as well as if need be antiarrhythmic therapy with amiodarone. In the interim she is on antiarrhythmic therapy with IV amiodarone. Over time, based upon her recurrent episodes, she may also need to be considered for formal EP consultation for possible EPS/RFA. 2. Takotsubo syndrome The patient has a history of an underlying non-CAD related cardiomyopathy compatible with a Takotsubo syndrome lash apical ballooning interim. Over time her LV systolic function has improved. Her recent noninvasive studies would suggest preserved overall LV systolic function and no obvious evidence of myocardial ischemia to suggest the development of underlying CAD. Thus at the present time she will need to be followed, during the stressful event, for any obvious recurrence of the aforementioned syndrome. She may need , depending upon her clinical course, to be reevaluated with echocardiographic studies, etc. 3. CAD The patient has a history of LAD mild calcification as noted above. She was not described as having angiographically significant appearing CAD. Her recent pharmacologic stress nuclear imaging study would not suggest any obvious hemodynamically significant CAD as she had no obvious evidence of ongoing myocardial ischemia. Thus she should continue risk factor evaluation care as deemed appropriate when she is able. 4. Hyperlipidemia The patient should continue evaluation and medical management as deemed appropriate for her age when she is able. 5. Diabetes mellitus She will need to continue under the care of internal medicine for this. 6. COPD She is being evaluated by internal medicine and pulmonology. 7. Hypothyroidism Again she will need to continue under the care of internal medicine for this. If she remains on amiodarone she will need to have her thyroid functions followed and medications adjusted as deemed appropriate. 8. Colon perforation She is now status post surgical intervention. She continues to be followed by general surgery. According to Dr. Young she may need further evaluation and care of her gastrointestinal tract with respect to improving her motility related issues. 9. Sepsis syndrome This is thought due to her underlying colon perforation. She continues supportive measures in the ICU. 10. Acute renal insufficiency Her creatinine level was markedly elevated upon admission. Her renal function has improved however it does wax and wane. This note was generated with [employer] dictation software. It may contain incorrect words, spelling, and punctuation that were not noted in checking the note before signing.
--- NOTE | 2018-07-26 14:26 | CHAPLAIN ---
Type of Pastoral Visit ___ Initial Visit _x__ Follow-up Visit ___ On-call Visit ___ General Patient Visit ___ Spiritual Assessment ___ Family Conference ___ Bereavement ___ Rapid Response ___ Code Blue ___ Other (describe below) Pastoral Care Referral From _x__ Patient _x__ Family ___ Nurse ___ Physician ___ Broadcast Engineer ___ Maintenance Machine Repairer ___ Other (describe below) Sacrament/Intervention _x__ Active listening ___ Anointing ___ Jain ___ Bereavement ___ Communion ___ Marifer exploration ___ ___ Life review _x__ Prayer ___ Reconciliation ___ Sacrament of Sick _x__ Supportive presence ___ Wedding ___ Other (describe below) Pastoral Comments patient is weak and admits to having a difficult time dealing with the changes in health over last two weeks including inability to do things for herself and inability to eat yet; pt requests prayer; pt continues to smile and have some laughter which this repairer hairspring affirmed; daughter is with pt
--- NOTE | 2018-07-26 14:33 | PCM.PN.HOSP ---
Patient Problems: Active and Suspected Problems (Last Reviewed 03/01/18 @ 13:10 by Victoria Fu) Large bowel perforation (Acute) Septic shock (Acute) Subjective: Patient is an 82-year-old lady with multiple comorbidities who was admitted with episodes of confusion and assessment of septic shock secondary to acute peritonitis as a result of perforated descending colon made. Admitted to intensive care unit patient underwent exploratory laparotomy with colon resection and end colostomy placed. 07/26/2018: Patient seen yet to have any bowel movement or gas in her colostomy back. Potassium 3.5 sodium level up to 147 Objective: GENERAL: Frail HEENT: Clear conjunctiva, NECK; supple, normal thyroid, CHEST: Diminished to auscultation bilaterally, HEART: Regular S1 S2, no audible murmurs ABDOMEN: non-tender,colostomy insitu, RECTAL: deferred EXTREMITIES: No clubbing, no cyanosis. SENIOR TAX ANALYST: Awake; no lateralizing signs. SKIN: No Rash Vitals/I&O's: Vital Signs Temp Pulse Resp BP Pulse Ox 98.8 F 84 18 160/61 H 94 07/26/18 13:00 07/26/18 13:00 07/26/18 13:00 07/26/18 13:00 07/26/18 13:00 Oxygen Flow Rate (L/min) 2 Oxygen Delivery Method Room Air Weight: 82.4 kg Body Mass Index (BMI) 29.2 Intake and Output for Last 24 Hours 07/24/18 07/25/18 07/26/18 23:59 23:59 23:59 Intake Total 1973.7 / 1973.7 3844.4 / 3844.4 1529.2 / 1529.2 Output Total 3303 / 3303 3500 / 3500 450 / 450 Balance -1329.3 / -1329.3 344.4 / 344.4 1079.2 / 1079.2 Microbiology Past 72 Hours 07/23/18 15:20 Blood Culture (Wb) - Other Blood Culture - Preliminary No growth in 48 hours. 07/20/18 09:45 Blood Culture (Wb) - Anticubital Right Blood Culture - Final Clostridium clostridioforme 07/20/18 12:10 Wound Drainage - Other Gram Stain - Final 07/20/18 12:10 Wound Drainage - Other Wound Culture - Final Escherichia coli Acinetobacter spp 09/18/18 12:10 Wound Drainage - Other Anaerobic Culture - Final Bacteroides thetaiotaomicron Bacteroides caccae Anaerobic cocci Laboratory Results 07/25/18 14:59: POC Glucose 379 H 07/25/18 17:05: Sodium 144, Potassium 4.4, Chloride 112 H, Carbon Dioxide 25.0, Anion Gap 7, BUN 42 H, Creatinine 1.38 H, Estim Creat Clear Calc 29.93, Est GFR (MDRD) Af Amer 47 L, Est GFR (MDRD) Non-Af 39 L, BUN/Creatinine Ratio 30.4 H, Glucose 330 H, Calcium 7.8 L 07/25/18 17:55: POC Glucose 314 H 07/25/18 21:12: POC Glucose 263 H 07/26/18 02:00: POC Glucose 302 H 07/26/18 04:30: Sodium 147 H, Potassium 3.5, Chloride 110 H, Carbon Dioxide 29.0, Anion Gap 8, BUN 46 H, Creatinine 1.35 H, Estim Creat Clear Calc 30.60, Est GFR (MDRD) Af Amer 48 L, Est GFR (MDRD) Non-Af 40 L, BUN/Creatinine Ratio 34.1 H, Glucose 307 H, Calcium 7.9 L, Phosphorus 3.4, Magnesium 2.0 07/26/18 05:59: POC Glucose 332 H 07/26/18 10:17: POC Glucose 282 H Current Medications Acetaminophen (Tylenol) 650 mg PO Q6H PRN PRN PRN Reason: Mild Pain (1-3)/Temp > 100.7 F Albuterol/Ipratropium (Duoneb) 3 ml INHALATION Q4H PRN PRN PRN Reason: SHORTNESS OF BREATH Budesonide (Pulmicort Aerosol) 0.5 mg INHALATION BID.RT [facility] Last Admin: 07/26/18 07:10 Dose: 0.5 mg Dextrose (D50w Syringe) 0 gm IV X1 PRN; Protocol PRN Reason: Hypoglycemia Glucagon () 1 mg IM .X1 PRN PRN Reason: Hypoglycemia Heparin Sodium (Porcine) (Heparin Na) 5,000 unit SC BID [facility] Last Admin: 07/26/18 10:19 Dose: 5,000 unit Sodium Chloride () 250 mls @ 15 mls/hr IV .[id number] PRN PRN Reason: SALINE FLUSH Last Admin: 07/21/18 09:47 Dose: 15 mls/hr Sodium Chloride () 250 mls @ 15 mls/hr IV .[id number] PRN PRN Reason: SALINE FLUSH Amiodarone HCl/Dextrose (Nexterone 360 Mg/200 Ml Bag) 360 mg in 200 mls @ 16.667 mls/hr CONT INF .Q12H [facility] PRN Reason: 0.5 MG/MIN Last Admin: 07/26/18 10:19 Dose: 16.667 mls/hr Ampicillin Sodium/Sulbactam (Sodium 3 gm/ Sodium Chloride) 112 mls @ 150 mls/hr IV Q8 [facility] Last Admin: 07/26/18 14:20 Dose: 150 mls/hr Multivitamins 10 ml/ Chromium/Copper/Manganese/Seleni/Zn 1 ml/ Folic Acid 1 mg/Famotidine 20 mg/ Amino Acids/Electrolytes 2,013.2 mls @ 84 mls/hr IV .[id number] [facility] Stop: 07/26/18 15:57 Last Admin: 07/25/18 16:21 Dose: 84 mls/hr Cefepime HCl 1 gm/ Sodium (Chloride) 50 mls @ 100 mls/hr IV Q12 [facility] Last Admin: 07/26/18 10:31 Dose: 100 mls/hr Fat Emulsion Intravenous (Intralipid 20%) 250 mls @ 21 mls/hr IV .[id number] [facility] Stop: 07/27/18 03:54 Metronidazole (Flagyl) 500 mg in 100 mls @ 100 mls/hr IV Q8 [facility] Last Admin: 07/26/18 13:10 Dose: 100 mls/hr Multivitamins 5 ml/ Chromium/Copper/Manganese/Seleni/Zn 0.5 ml/ Folic Acid 0.5 mg/Famotidine 10 mg/ Potassium Chloride 40 meq/ Amino Acids 1,026.6 mls @ 84 mls/hr IV .[id number] [facility] PRN Reason: Protocol Stop: 07/27/18 15:58 Influenza Virus Vaccine Quadrival (Fluarix/Fluzone) 0.5 ml IM .ONCE ONE Stop: 07/27/18 10:01 Insulin Glargine (Lantus (Bkc)) 20 units SC BID [facility] Last Admin: 07/26/18 10:29 Dose: 20 u Insulin Human Lispro (Humalog Kwikpen (Bkc)) 0 unit SC Q4 [facility] PRN Reason: Protocol Last Admin: 07/26/18 14:20 Dose: 9 u Insulin Human Lispro (Humalog Kwikpen (Bkc)) 15 unit SC Q4 [facility] Last Admin: 07/26/18 14:20 Dose: 15 u Magnesium Hydroxide (Milk Of Magnesia) 30 ml PO DAILY PRN PRN PRN Reason: Constipation Metoprolol Tartrate (Lopressor (Beta Jose)) 5 mg IV Q6 PRN PRN Reason: TO CONTROL HEART RATE Last Admin: 07/21/18 19:35 Dose: 2.5 mg Morphine Sulfate () 1 mg IV Q4H PRN PRN PRN Reason: SEVERE PAIN (6-08/11) Ondansetron HCl (Zofran) 4 mg IV Q8H PRN PRN PRN Reason: NAUSEA Last Admin: 07/25/18 21:15 Dose: 4 mg Sodium Chloride () 10 - 40 ml IV UD PRN PRN Reason: MULTILUMEN/HICMAN CATH FLUSH Last Admin: 07/26/18 04:35 Dose: 40 ml Medical Necessity - Tobacco Use Smoking Status: Never smoker Tobacco Use: Non-smoker Assessment/Plan All Active Problems (Last Reviewed 03/01/18 @ 13:10 by Victoria Fu) Large bowel perforation (Acute) Septic shock (Acute) DEMETRA (acute kidney injury) (Acute) Pneumococcal pneumonia (Acute) SVT (supraventricular tachycardia) (Acute) Patient is an 82-year-old lady with multiple comorbidities who was admitted with episodes of confusion and assessment of septic shock secondary to acute peritonitis as a result of perforated descending colon made. Admitted to intensive care unit patient underwent exploratory laparotomy with colon resection and end colostomy placed. 1. Septic shock secondary to peritonitis as a result of perforated descending colon near the splenic flexure 2. Acute perforated descending colon near the splenic flexure patient underwen tExploratory laparotomy, mobilization of the splenic flexure, left colon resection, end colostomy on 07/20/[address] Hannah 3../ICU delirium resolved with nonpharmacological treatment 4. Diabetes mellitus type 2 patient's oral hypoglycemic agents held on admission. Managed with long-acting insulin as well as Accu-Cheks every 4 hours with lispro coverage 5. Severe protein calorie malnutrition as a result of above patient is on nutritional supplementation with TPN 4. Acute kidney injury secondary to ATN from septic shock kidney function appears to be improving 6. Hypernatremia; adjusted IV fluids 7. Acute hypoxic respiratory failure patient was electively intubated for surgery and successfully weaned off 8. COPD currently not in exacerbation 9. Hypokalemia corrected per protocol 10. Hypomagnesemia corrected per protocol 11. History of PSVT currently stable 12. Hypertension-blood pressure controlled, home medications continued with dose adjustment as needed 13. Hypothyroidism-patient is on levothyroxine home dose continued 14. DVT prophylaxis SC heparin 15. Physical deconditioning PT OT requested. director of medical staff services involved in disposition Code Visit Inpatient E&M: 51532 Subs Hosp L3
[2018-07-26 14:36] LABS: Bedside Glucose 307 mg/dL (70-110)
[2018-07-26 15:16] LABS: Bedside Glucose 435 mg/dL (70-110)
[2018-07-26 15:16] LABS: Bedside Glucose 440 mg/dL (70-110)
--- NOTE | 2018-07-26 15:27 | NURSING ---
wound/stoma photo: abdomen
--- NOTE | 2018-07-26 15:39 | NURSING ---
Removed colostomy appliance to assess stoma. stoma is still slightly edematous. stoma is dark pink, moist, and well budded. peristomal skin is intact. stoma measures approx 2. cleansed with warm water. pat dry. applied a new 2 piece flat [place] appliance with a small amount of stoma paste. pt tolerated well. no flatus or stool was noted in pouch.
[2018-07-26] MEDS: Fat Emulsions 20% 250 ML IV (15:57)
[2018-07-26 18:31] LABS: Bedside Glucose 215 mg/dL (70-110)
[2018-07-26 21:55] LABS: Bedside Glucose 161 mg/dL (70-110)
[2018-07-27] VITALS (21 sets, daily range): BP systolic 128–159; BP diastolic 46–93; PULSE 52–88; RESP 16–29; TEMP 36.4–37; O2SAT 93–100
[2018-07-27] MEDS: Insulin Lispro 100 UNIT/ML INSULN.PEN SC ×4 (02:20→23:52)
[2018-07-27] MEDS: Insulin Lispro 100 UNIT/ML INSULN.PEN 15 UNIT SC ×2 (02:20→06:05)
[2018-07-27 04:06] LABS: Bedside Glucose 282 mg/dL (70-110)
[2018-07-27 06:21] LABS: Bedside Glucose 166 mg/dL (70-110)
[2018-07-27 06:52] LABS: BUN 48 mg/dL (7-18); Creatinine, Serum 1.29 mg/dL (0.55-1.02); Estimated Creatinine Clearance 32.02 ml/min; Glucose 167 mg/dL (74-106)
[2018-07-27 06:53] LABS: Anion Gap 9 (5-15); BUN/Creat Ratio 37.2 RATIO (10-20); Calcium,Total 7.8 mg/dL (8.5-10.1); Chloride 109 mmol/L (98-107); EST Glomerular Filtration Rate 42 mL/min (>60); Est Glom Filt Rate - Afr Amer 51 mL/min (>60); Potassium 3.3 mmol/L (3.5-5.1); Sodium Level 143 mmol/L (136-145)
--- NOTE | 2018-07-27 07:48 | PN.SURG_ITS ---
Patient Problems: Active and Suspected Problems (Last Reviewed 03/01/18 @ 13:10 by Victoria Fu) Large bowel perforation (Acute) Septic shock (Acute) Subjective: Patient denies abdominal pain, nausea or vomiting, up to the chair most the day yesterday - Physical Exam General: Alert, Cooperative, No apparent distress HEENT: Atraumatic Lungs: Normal air movement Cardiovascular: Regular rate Abdomen: Soft, Non Tender, Distended - Mild, - - Incision clean dry intact with yuriy, ostomy mild edema positive small amount of flatus in the bag along with some serous fluid Vital Signs Temp Pulse Resp BP Pulse Ox 97.8 F 73 24 H 147/46 H 96 07/27/18 06:02 07/27/18 07:08 07/27/18 06:02 07/27/18 06:02 07/27/18 06:02 Oxygen Flow Rate (L/min) 2 Oxygen Delivery Method Room Air Weight: 179 lb 0.246 oz Body Mass Index (BMI) 29.2 Intake and Output for Last 24 Hours 07/25/18 07/26/18 07/27/18 23:59 23:59 23:59 Intake Total 3844.4 / 3844.4 3382.4 / 3382.4 1001 / 1001 Output Total 3500 / 3500 1125 / 1125 250 / 250 Balance 344.4 / 344.4 2257.4 / 2257.4 751 / 751 Microbiology Past 72 Hours 07/23/18 15:20 Blood Culture - Preliminary Blood Culture (Wb) - Other No growth in 48 hours. 07/20/18 09:45 Blood Culture - Final Blood Culture (Wb) - Anticubital Right Clostridium clostridioforme 07/20/18 12:10 Gram Stain - Final Wound Drainage - Other Wound Culture - Final Escherichia coli Acinetobacter spp Anaerobic Culture - Final Bacteroides thetaiotaomicron Bacteroides caccae Anaerobic cocci 07/20/18 08:00 Blood Culture - Final Blood Culture (Wb) - Anticubital Left No growth in 5 days. Laboratory Tests Past 24 Hrs 07/27/18 06:35 Sodium 143 Potassium 3.3 L Chloride 109 H Carbon Dioxide 25.0 Anion Gap 9 BUN 48 H Creatinine 1.29 H Estim Creat Clear Calc 32.02 Est GFR (MDRD) Af Amer 51 L Est GFR (MDRD) Non-Af 42 L BUN/Creatinine Ratio 37.2 H Glucose 167 H Calcium 7.8 L POC Glucose 07/27/18 07/27/18 07/26/18 06:00 02:20 21:42 POC Glucose 166 H 282 H 161 H 07/26/18 07/26/18 07/26/18 18:21 14:17 10:17 POC Glucose 215 H 307 H 282 H 07/23/18 07/23/18 23:46 23:45 POC Glucose 435 H 440 H Medical Necessity - Tobacco Use Smoking Status: Never smoker Tobacco Use: Non-smoker Assessment/Plan All Active Problems (Last Reviewed 03/01/18 @ 13:10 by Victoria Fu) Large bowel perforation (Acute) Septic shock (Acute) DEMETRA (acute kidney injury) (Acute) Pneumococcal pneumonia (Acute) SVT (supraventricular tachycardia) (Acute) 82-year-old female with pneumoperitoneum from perforated splenic flexure of the colon POD#7 s/p ex lap, L colon resection, end colostomy; septic shock-resolved, history of COPD, diabetes, elevated lactic acid-resolved, tachycardia-resolved 1. Start clears/TPN. Await increased bowel function before advancing. Okay for meds with sips. miralax/start colace 2. Tachycardia-resolved, on amiodarone drip per cardiology 3. Colostomy-mild edema continue to monitor. 4. Creatinine improved. Aurora Young M.D. Pager: [phone] [facility] [address] [place] [address], [facility], [address] [place] [address] Office: [phone]
[2018-07-27] MEDS: Budesonide Respules 0.5 MG/2 ML AMPUL.NEB. INHALATION ×2 (07:53→18:42)
[2018-07-27] MEDS: Polyethylene Glycol 3350 17 GM PACKET PO (08:07)
[2018-07-27] MEDS: Docusate Sodium 100 MG Capsule PO (08:07)
[2018-07-27 08:35] LABS: Absolute Lymphocyte Count 0.95 X10^3/ul (0.83-4.51); Absolute Neutrophil Count 10.2 X10^3/uL (2.0-7.7); Basophil# 0.05 X10^3/uL; Basophil% 0.4 % (0-1); Eosinophil# 0.49 X10^3/uL; Eosinophils% 3.8 % (0-5); Hematocrit 27.2 % (37-47); Hemoglobin 9.1 g/dl (12.0-15.0); Lymphocyte # 0.95 X10^3/ul (4.0); Lymphocyte % 7.3 % (19-41); Mean Corp Hgb Conc 33.5 g/gl (32-36); Mean Corpuscular Hgb 31.1 pg (27.0-32.0); Mean Corpuscular Volume 92.8 fL (81-99); Monocyte# 1.14 X10^3/uL; Monocyte% 8.8 % (0-10); Neutrophil # 10.18 X10^3/uL (2.7-7.7); Neutrophil % 78.4 % (47-70); Platelet Count 178 K/mm3 (150-450); RBC Distribution Width CV 15.8 % (11.6-14.6); RBC Distribution Width SD 53.5 fl (35.1-43.9); Red Blood Count 2.93 M/mm3 (4.2-5.4)
[2018-07-27 08:36] LABS: Differential Indicated SCAN CRITERIA MET; POSITIVE COUNT NO; POSITIVE DIFFERENTIAL NO; POSITIVE MORPHOLOGY YES
[2018-07-27 08:39] LABS: Absolute Nucleated RBC Count 0.02 10^3/uL (0-5); NRBC Flagged by Analyzer 0.1 % (0-5)
--- NOTE | 2018-07-27 08:57 | PCM.PN.HOSP ---
Patient Problems: Active and Suspected Problems (Last Reviewed 03/01/18 @ 13:10 by Victoria Fu) Large bowel perforation (Acute) Septic shock (Acute) Subjective: Patient seen still appears ill looking. Potassium 3.3 Dr Young gave the okay for patient to receive oral meds with sips. She also ordered MiraLAX as well as Colace Objective: GENERAL: Frail HEENT: Clear conjunctiva, NECK; supple, normal thyroid, CHEST: Diminished to auscultation bilaterally, HEART: Regular S1 S2, no audible murmurs ABDOMEN: non-tender,colostomy insitu, RECTAL: deferred EXTREMITIES: No clubbing, no cyanosis. MARKETING TECHNOLOGY SPECIALIST: Awake; no lateralizing signs. SKIN: No Rash Vitals/I&O's: Vital Signs Temp Pulse Resp BP Pulse Ox 97.8 F 73 24 H 147/46 H 96 07/27/18 06:02 07/27/18 07:08 07/27/18 06:02 07/27/18 06:02 07/27/18 06:02 Oxygen Flow Rate (L/min) 2 Oxygen Delivery Method Room Air Weight: 81.2 kg Body Mass Index (BMI) 29.2 Intake and Output for Last 24 Hours 07/25/18 07/26/18 07/27/18 23:59 23:59 23:59 Intake Total 3844.4 / 3844.4 3382.4 / 3382.4 1001 / 1001 Output Total 3500 / 3500 1125 / 1125 250 / 250 Balance 344.4 / 344.4 2257.4 / 2257.4 751 / 751 Microbiology Past 72 Hours 07/23/18 15:20 Blood Culture (Wb) - Other Blood Culture - Preliminary No growth in 48 hours. 07/20/18 09:45 Blood Culture (Wb) - Anticubital Right Blood Culture - Final Clostridium clostridioforme 07/20/18 12:10 Wound Drainage - Other Gram Stain - Final 07/20/18 12:10 Wound Drainage - Other Wound Culture - Final Escherichia coli Acinetobacter spp 07/20/18 12:10 Wound Drainage - Other Anaerobic Culture - Final Bacteroides thetaiotaomicron Bacteroides caccae Anaerobic cocci 07/20/18 08:00 Blood Culture (Wb) - Anticubital Left Blood Culture - Final No growth in 5 days. Laboratory Results 07/23/18 23:45: POC Glucose 440 H 07/23/18 23:46: POC Glucose 435 H 07/26/18 10:17: POC Glucose 282 H 07/26/18 14:17: POC Glucose 307 H 07/26/18 18:21: POC Glucose 215 H 07/26/18 21:42: POC Glucose 161 H 07/27/18 02:20: POC Glucose 282 H 07/27/18 06:00: POC Glucose 166 H 07/27/18 06:35: Sodium 143, Potassium 3.3 L, Chloride 109 H, Carbon Dioxide 25.0, Anion Gap 9, BUN 48 H, Creatinine 1.29 H, Estim Creat Clear Calc 32.02, Est GFR (MDRD) Af Amer 51 L, Est GFR (MDRD) Non-Af 42 L, BUN/Creatinine Ratio 37.2 H, Glucose 167 H, Calcium 7.8 L 07/27/18 08:20: WBC 13.0 H, RBC 2.93 L, Hgb 9.1 L, Hct 27.2 L, MCV 92.8, MCH 31.1, MCHC 33.5, RDW 15.8 H, RDW Differential 53.5 H, Plt Count 178, MPV 11.0, Immature Gran % (Auto) 1.300 H, Neut % (Auto) 78.4 H, Lymph % (Auto) 7.3 L, Foster % (Auto) 8.8, Eos % (Auto) 3.8, Baso % (Auto) 0.4, Absolute Neuts (auto) 10.2 H, Absolute Lymphs (auto) 0.95, Total Counted Pending, Nucleated RBC % 0.1, Absolute Retic 0.02 Current Medications Acetaminophen (Tylenol) 650 mg PO Q6H PRN PRN PRN Reason: Mild Pain (1-3)/Temp > 100.7 F Albuterol/Ipratropium (Duoneb) 3 ml INHALATION Q4H PRN PRN PRN Reason: SHORTNESS OF BREATH Budesonide (Pulmicort Aerosol) 0.5 mg INHALATION BID.RT [facility] Last Admin: 07/27/18 07:53 Dose: 0.5 mg Dextrose (D50w Syringe) 0 gm IV X1 PRN; Protocol PRN Reason: Hypoglycemia Docusate Sodium (Colace) 100 mg PO DAILY [facility] Last Admin: 07/27/18 08:07 Dose: 100 mg Glucagon () 1 mg IM .X1 PRN PRN Reason: Hypoglycemia Heparin Sodium (Porcine) (Heparin Na) 5,000 unit SC BID [facility] Last Admin: 07/26/18 21:46 Dose: 5,000 unit Sodium Chloride () 250 mls @ 15 mls/hr IV .[id number] PRN PRN Reason: SALINE FLUSH Last Admin: 07/21/18 09:47 Dose: 15 mls/hr Sodium Chloride () 250 mls @ 15 mls/hr IV .[id number] PRN PRN Reason: SALINE FLUSH Amiodarone HCl/Dextrose (Nexterone 360 Mg/200 Ml Bag) 360 mg in 200 mls @ 16.667 mls/hr CONT INF .Q12H [facility] Last Admin: 07/26/18 22:35 Dose: 16.667 mls/hr Cefepime HCl 1 gm/ Sodium (Chloride) 50 mls @ 100 mls/hr IV Q12 [facility] Last Admin: 07/26/18 21:09 Dose: 100 mls/hr Metronidazole (Flagyl) 500 mg in 100 mls @ 100 mls/hr IV Q8 [facility] Last Admin: 07/27/18 06:05 Dose: 100 mls/hr Multivitamins 5 ml/ Chromium/Copper/Manganese/Seleni/Zn 0.5 ml/ Folic Acid 0.5 mg/Famotidine 10 mg/ Potassium Chloride 40 meq/ Amino Acids 1,026.6 mls @ 84 mls/hr IV .[id number] [facility]; Protocol Stop: 07/27/18 15:58 Last Admin: 07/27/18 04:10 Dose: 84 mls/hr Potassium Chloride 10 meq/ N/A 100 mls @ 100 mls/hr IV Q1H [facility] Stop: 07/27/18 12:59 Influenza Virus Vaccine Quadrival (Fluarix/Fluzone) 0.5 ml IM .ONCE ONE Stop: 07/27/18 10:01 Insulin Glargine (Lantus (Bk)) 20 units SC BID [facility] Last Admin: 07/26/18 21:45 Dose: 20 u Insulin Human Lispro (Humalog Kwikpen ([facility])) 0 unit SC Q4 [facility]; Protocol Last Admin: 07/27/18 06:04 Dose: 3 u Insulin Human Lispro (Humalog Kwikpen (Bkc)) 15 unit SC Q4 [facility] Last Admin: 07/27/18 06:05 Dose: 15 u Magnesium Hydroxide (Milk Of Magnesia) 30 ml PO DAILY PRN PRN PRN Reason: Constipation Metoprolol Tartrate (Lopressor (Beta Jose)) 5 mg IV Q6 PRN PRN Reason: TO CONTROL HEART RATE Last Admin: 07/21/18 19:35 Dose: 2.5 mg Morphine Sulfate () 1 mg IV Q4H PRN PRN PRN Reason: SEVERE PAIN (6-10/10) Ondansetron HCl (Zofran) 4 mg IV Q8H PRN PRN PRN Reason: NAUSEA Last Admin: 07/25/18 21:15 Dose: 4 mg Sodium Chloride () 10 - 40 ml IV UD PRN PRN Reason: MULTILUMEN/HICMAN CATH FLUSH Last Admin: 07/27/18 06:37 Dose: 10 ml Medical Necessity - Tobacco Use Smoking Status: Never smoker Tobacco Use: Non-smoker Assessment/Plan All Active Problems (Last Reviewed 03/01/18 @ 13:10 by Victoria Fu) Large bowel perforation (Acute) Septic shock (Acute) DEMETRA (acute kidney injury) (Acute) Pneumococcal pneumonia (Acute) SVT (supraventricular tachycardia) (Acute) Patient is an 82-year-old lady with multiple comorbidities who was admitted with episodes of confusion and assessment of septic shock secondary to acute peritonitis as a result of perforated descending colon made. Admitted to intensive care unit patient underwent exploratory laparotomy with colon resection and end colostomy placed. 1. Septic shock secondary to peritonitis as a result of perforated descending colon near the splenic flexure 2. Acute perforated descending colon near the splenic flexure patient underwen tExploratory laparotomy, mobilization of the splenic flexure, left colon resection, end colostomy on 07/20/[address] Hannah 3. Post Op/ICU delirium resolved with nonpharmacological treatment 4. Diabetes mellitus type 2 patient's oral hypoglycemic agents held on admission. Managed with long-acting insulin as well as Accu-Cheks every 4 hours with lispro coverage 5. Severe protein calorie malnutrition as a result of above patient is on nutritional supplementation with TPN 4. Acute kidney injury secondary to ATN from septic shock kidney function appears to be improving 6. Hypernatremia; adjusted IV fluids 7. Acute hypoxic respiratory failure patient was electively intubated for surgery and successfully weaned off 8. COPD currently not in exacerbation 9. Hypokalemia corrected per protocol 10. Hypomagnesemia corrected per protocol 11. History of PSVT currently stable 12. Hypertension-blood pressure controlled, home medications continued with dose adjustment as needed 13. Hypothyroidism-patient is on levothyroxine home dose continued 14. DVT prophylaxis SC heparin 15. Physical deconditioning PT OT requested. fire services plumber involved in disposition Code Visit Inpatient E&M: 52812 Subs Hosp L2
--- NOTE | 2018-07-27 09:09 | RAD_ITS ---
STUDY: X-RAY CHEST REASON FOR EXAM: Female, 82 years old. Leukocytosis. TECHNIQUE: Single AP portable view of the chest. COMPARISON: Comparison is made with prior study dated July 20, 2018. FINDINGS: A right-sided internal jugular venous catheter is seen with the tip in the right atrium. EKG electrodes are seen. The endotracheal tube has been removed. There now is evidence of atelectasis and/or infiltrate in the right lung base. Mild increased markings are seen in the left upper lobe. There is no demonstrated pleural abnormality. There is borderline cardiomegaly. Normal mediastinum and aruna. Normal visualized pulmonary arteries. There is atherosclerotic calcification of the aortic arch with tortuosity. There are diffuse degenerative changes of the visualized thoracic spine. There is degenerative osteoarthritis of the bilateral shoulders. There is no demonstrated abnormality of the visualized soft tissue structures of the upper abdomen. RAD/Chest 1 View IMPRESSION: Progressive increased markings at the right lung base. The endotracheal tube has been removed. Electronically Signed: Jourdan De La Fuente MD at 13:11 EDT Tel [phone], Service support ,
[2018-07-27] MEDS: Piperacil/Tazobactam 4.5 GM in NS100 MBP IV (09:56)
[2018-07-27 10:16] LABS: Bedside Glucose 140 mg/dL (70-110)
[2018-07-27] MEDS: Heparin Injection (Vial) 5,000 UNIT/ML VIAL 5000 UNIT SC ×2 (10:26→22:14)
[2018-07-27] MEDS: Amiodarone 200 MG Tablet PO ×2 (10:41→22:14)
[2018-07-27 11:56] LABS: Color, Urine Yellow (Yellow); Glucose, Dipstick Normal (Normal); Ketone-Dipstick Negative (Negative); Leukocyte Esterase-Dipstick 25 /ul (Negative); Nitrite-Dipstick Negative (Negative); Occult Blood-Urine 25 /ul (Negative); Protein-Dipstick 30 mg/dl (Negative); Specific Gravity, Urine 1.015 (1.002-1.030); Urine Bilirubin Dipstick Negative (Negative); Urine Clarity Clear (Clear); Urine Urobilinogen Normal (Normal)
[2018-07-27 12:03] LABS: Bacteria 1+ /hpf (None Seen); Hyaline Cast 0-5 SEEN /lpf (0-5); Mucous, Urine 1+ /hpf (<or=2+); Red Blood Cells-Urine 0-5 SEEN /hpf (0-5); Squamous Epithelial Cells - UA 0-5 SEEN /hpf (5-10); White Blood Cells 0-5 SEEN /hpf (0-5)
[2018-07-27] MEDS: Piperacil/Tazobactam 3.375 GM/50 ML ML IV ×2 (13:18→22:14)
--- NOTE | 2018-07-27 14:55 | NURSING ---
small amount of mucous noted from stoma. minimal yellow drainage noted in the pouch. stoma is beefy red. will continue to monitor. nurse states patient had some flatus earlier this am.
--- NOTE | 2018-07-27 15:46 | PN.CARD_ITS ---
Subjectve: The patient was evaluated earlier this day. She denied any ongoing chest discomfort or worsening shortness of breath. She stated she was able to anahy erate oral medications. However, the [facility] staff noted that there was concerned that she had issues swallowing Jell-O. She was scheduled to be reassessed by speech therapy for her swallowing capabilities. Objective: Vital Signs Temp Pulse Resp BP Pulse Ox 97.8 F 76 20 H 130/52 H 95 07/27/18 12:00 07/27/18 15:06 07/27/18 12:00 07/27/18 12:00 07/27/18 12:00 Oxygen Flow Rate (L/min) 2 Oxygen Delivery Method Room Air Weight: 179 lb 0.246 oz Body Mass Index (BMI) 29.2 Intake and Output for Last 24 Hours 07/25/18 07/26/18 07/27/18 23:59 23:59 23:59 Intake Total 3844.4 / 3844.4 3382.4 / 3382.4 2224.1 / 2224.1 Output Total 3500 / 3500 1125 / 1125 450 / 450 Balance 344.4 / 344.4 2257.4 / 2257.4 1774.1 / 1774.1 General: Awake, Alert, Oriented x 3, Cooperative, No Acute Distress HEENT: Atraumatic, Normocephalic, PERRL, EOMI, Sclera Non Icteric Oral: Moist Mucosa Neck: Supple, Good ROM, No JVD Lungs: - - No obvious rales or rhonchi Cardiovascular: Regular Rhythm, Premature Ectopic Beats, Normal S1, Normal S2 Abdomen: Hypoactive Bowel Sounds 07/27/18 06:35: Sodium 143, Potassium 3.3 L, Chloride 109 H, Carbon Dioxide 25.0, Anion Gap 9, BUN 48 H, Creatinine 1.29 H, Est GFR (MDRD) Af Amer 51 L, Est GFR (MDRD) Non-Af 42 L, BUN/Creatinine Ratio 37.2 H, Glucose 167 H, Calcium 7.8 L 07/27/18 08:20: WBC 13.0 H, RBC 2.93 L, Hgb 9.1 L, Hct 27.2 L, MCV 92.8, MCH 31.1, MCHC 33.5, RDW 15.8 H, RDW Differential 53.5 H, Plt Count 178, MPV 11.0, Immature Gran % (Auto) 1.300 H, Neut % (Auto) 78.4 H, Lymph % (Auto) 7.3 L, [place] % (Auto) 8.8, Eos % (Auto) 3.8, Baso % (Auto) 0.4, Absolute Neuts (auto) 10.2 H, Total Counted Not Reportable, Nucleated RBC % 0.1 07/27/18 11:30: Urine Color Yellow, Urine Clarity Clear, Urine pH 6.0, Ur Specific [place] 1.015, Urine Protein 30 H, Urine Glucose (UA) Normal, Urine Ketones Negative, Urine Occult Blood 25 H, Urine Nitrite Negative, Urine Bilirubin Negative, Urine Urobilinogen Normal, Ur Leukocyte Esterase 25 H, Urine RBC 0-5 SEEN, Urine WBC 0-5 SEEN Rhythm: Sinus rhythm; premature ectopic complexes Medical Necessity - Tobacco Use Smoking Status: Never smoker Tobacco Use: Non-smoker Assessment/Plan 1. Supraventricular tachycardia The patient has had recurrent supraventricular tachycardia. Based upon her cardiac rhythm strips it appears she has had evidence of a potential atrial flutter as well as a supraventricular tachycardia with aberrancy-responsive to IV adenosine therapy. 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 Her current recurrent supraventricular tachycardia may be exacerbated by her underlying acute noncardiac condition/sepsis syndrome. She has now been changed from IV amiodarone to oral amiodarone. She will need to be monitored with respect to her ability to do take oral medications appropriately without concern of aspiration. Hopefully she will be able to do so. She may also need over time consideration for additional rate limiting therapy as well as the antiarrhythmic therapy. Over time, based upon her recurrent episodes, she may also need to be considered for formal EP consultation for possible EPS/RFA. 2. Takotsubo syndrome The patient has a history of an underlying non-CAD related cardiomyopathy compatible with a Takotsubo syndrome lash apical ballooning interim. Over time her LV systolic function has improved. Her recent noninvasive studies would suggest preserved overall LV systolic function and no obvious evidence of myocardial ischemia to suggest the development of underlying CAD. Thus at the present time she will need to be followed, during the stressful event, for any obvious recurrence of the aforementioned syndrome. She may need, depending upon her clinical course, to be reevaluated with echocardiographic studies, etc. 3. CAD The patient has a history of LAD mild calcification as noted above. She was not described as having angiographically significant appearing CAD. Her recent pharmacologic stress nuclear imaging study would not suggest any obvious hemodynamically significant CAD as she had no obvious evidence of ongoing myocardial ischemia. Thus she should continue risk factor evaluation care as deemed appropriate when she is able. 4. Hyperlipidemia The patient should continue evaluation and medical management as deemed appropriate for her age when she is able. 5. Diabetes mellitus She will need to continue under the care of internal medicine for this. 6. COPD She is being evaluated by internal medicine and pulmonology. 7. Hypothyroidism Again she will need to continue under the care of internal medicine for this. If she remains on amiodarone she will need to have her thyroid functions followed and medications adjusted as deemed appropriate. 8. Colon perforation She is now status post surgical intervention. She continues to be followed by general surgery. She has now been allowed to attempt oral medication and supplement. However, there is still concern about her swallowing capabilities and that she is going to be reassessed by speech therapy. 9. Sepsis syndrome This is thought due to her underlying colon perforation. She continues supportive measures in the ICU. 10. Acute renal insufficiency Her creatinine level was markedly elevated upon admission. Her renal function has improved however it does wax and wane. This note was generated with [employer] dictation software. It may contain incorrect words, spelling, and punctuation that were not noted in checking the note before signing.
[2018-07-27 17:56] LABS: Bedside Glucose 330 mg/dL (70-110)
[2018-07-28] VITALS (14 sets, daily range): BP systolic 106–152; BP diastolic 58–81; PULSE 55–86; RESP 16–24; TEMP 36.4–37; O2SAT 94–99
[2018-07-28 00:05] LABS: Bedside Glucose 229 mg/dL (70-110)
[2018-07-28 04:52] LABS: Anion Gap 7 (5-15); BUN 62 mg/dL (7-18); BUN/Creat Ratio 41.1 RATIO (10-20); Calcium,Total 7.8 mg/dL (8.5-10.1); Chloride 110 mmol/L (98-107); Creatinine, Serum 1.51 mg/dL (0.55-1.02); EST Glomerular Filtration Rate 35 mL/min (>60); Est Glom Filt Rate - Afr Amer 43 mL/min (>60); Estimated Creatinine Clearance 27.35 ml/min; Glucose 118 mg/dL (74-106); Potassium 4.5 mmol/L (3.5-5.1); Sodium Level 140 mmol/L (136-145)
[2018-07-28 05:06] LABS: Absolute Lymphocyte Count 0.97 X10^3/ul (0.83-4.51); Absolute Neutrophil Count 12.1 X10^3/uL (2.0-7.7); Basophil# 0.03 X10^3/uL; Basophil% 0.2 % (0-1); Eosinophil# 0.37 X10^3/uL; Eosinophils% 2.4 % (0-5); Hematocrit 26.1 % (37-47); Hemoglobin 8.8 g/dl (12.0-15.0); Lymphocyte # 0.97 X10^3/ul (4.0); Lymphocyte % 6.4 % (19-41); Mean Corp Hgb Conc 33.7 g/gl (32-36); Mean Corpuscular Hgb 31.2 pg (27.0-32.0); Mean Corpuscular Volume 92.6 fL (81-99); Mean Platelet Vol. 11.3 fl (6.2-12.0); Monocyte# 1.45 X10^3/uL; Monocyte% 9.6 % (0-10); Neutrophil # 12.11 X10^3/uL (2.7-7.7); Neutrophil % 79.9 % (47-70); Platelet Count 206 K/mm3 (150-450); RBC Distribution Width CV 15.8 % (11.6-14.6); RBC Distribution Width SD 53.4 fl (35.1-43.9); Red Blood Count 2.82 M/mm3 (4.2-5.4); White Blood Count 15.2 K/mm3 (4.4-11.0)
[2018-07-28 05:43] LABS: Differential Indicated SCAN CRITERIA MET; POSITIVE COUNT NO; POSITIVE DIFFERENTIAL NO; POSITIVE MORPHOLOGY YES
[2018-07-28 05:44] LABS: Differential Comment SCANNED
[2018-07-28] MEDS: Piperacil/Tazobactam 3.375 GM/50 ML ML IV (06:13)
[2018-07-28 06:45] LABS: Bedside Glucose 111 mg/dL (70-110)
[2018-07-28] MEDS: Budesonide Respules 0.5 MG/2 ML AMPUL.NEB. INHALATION ×2 (07:14→19:27)
--- NOTE | 2018-07-28 07:35 | CT_ITS ---
STUDY: CT ABDOMEN AND PELVIS WITHOUT CONTRAST REASON FOR EXAM: Female, 82 years old. Elevated white cell count. Recent sepsis from a colon perforation and peritonitis. RADIATION DOSAGE (If Supplied By Facility): CTDIvol = ( 14.72 ) mGy, DLP = ( 678.08 ) mGycm TECHNIQUE: Transaxial images were obtained from the dome of the diaphragm to the symphysis pubis with oral contrast, and without intravenous contrast. Sagittal and coronal images were reconstructed. Individualized dose optimization techniques were used for this CT. COMPARISON: Comparison is made with prior examination dated July 20, 2018. FINDINGS: Persistent right lower lobe infiltrate. Tiny pleural effusion. Mild degree of increased markings at the left lung base. The visualized portions of the heart are within normal limits. Normal liver. Tiny gallstones or sludge in the gallbladder lumen. There are multiple benign calcified granulomata of the spleen. There is diffuse atrophy of the pancreas. Normal bilateral adrenal glands. Normal right kidney. Stable 2.5 cm cyst in the left kidney. Normal visualized stomach. Minimally thickened small bowel loops in left midabdomen with a small amount of fluid surrounding these bowel loops. Fecal material is seen in the right hemicolon. Fluid is also seen within the right hemicolon. A transverse colostomy is seen in the left midabdomen just lateral to the umbilicus. Sigmoid diverticulosis. There is non-visualization of the appendix. There is diffuse atherosclerotic calcification of the abdominal aorta, without a demonstrated aneurysm. Normal inferior vena cava. Normal retroperitoneum. Mild increased markings in the root of the mesentery most likely secondary to the recent surgery. Normal urinary bladder. There is absence of the uterus consistent with a prior hysterectomy. Normal abdominal wall. There are diffuse degenerative changes of the visualized lumbar spine. Status post bilateral total hip replacement. CT/Abdomen/Pel W ORAL Cont Only IMPRESSION: Persistent infiltrate in the right lower lobe with a small pleural effusion. Sludge is seen within the gallbladder lumen and possible tiny gallstones. A colostomy is seen in the left mid abdomen. Increased markings in the mesentery most likely secondary to prior surgery. Thickened small bowel loops in the left mid abdomen with surrounding increased markings in the peritoneal fat. There is no evidence of free air at this time. Electronically Signed: Jourdan De La Fuente MD at 13:30 EDT Tel [phone], Service support ,
--- NOTE | 2018-07-28 07:55 | PN.SURG_ITS ---
Patient Problems: Active and Suspected Problems (Last Reviewed 03/01/18 @ 13:10 by Victoria Fu) Large bowel perforation (Acute) Septic shock (Acute) Subjective: Patient denies abdominal pain or shortness of breath, positive small amount of stool in colostomy - Physical Exam General: Alert, Cooperative, No apparent distress HEENT: Atraumatic Lungs: Wheezes - Audible Cardiovascular: Regular rate Abdomen: Soft, Non Tender, Distended - Mild, - - Incisions with yuriy and only mild erythema at the staple site, colostomy still mild edema with some stool in bag Extremities: No clubbing, No cyanosis Skin: No rashes Vital Signs Temp Pulse Resp BP Pulse Ox 97.9 F 76 22 H 106/58 L 99 07/28/18 06:20 07/28/18 06:20 07/28/18 06:20 07/28/18 06:20 07/28/18 06:20 Oxygen Flow Rate (L/min) 2 Oxygen Delivery Method Room Air Weight: 192 lb 14.472 oz Body Mass Index (BMI) 29.2 Intake and Output for Last 24 Hours 07/26/18 07/27/18 07/28/18 23:59 23:59 23:59 Intake Total 3382.4 / 3382.4 4148.7 / 4148.7 584.3 / 584.3 Output Total 1125 / 1125 750 / 750 300 / 300 Balance 2257.4 / 2257.4 3398.7 / 3398.7 284.3 / 284.3 Microbiology Past 72 Hours 07/23/18 15:20 Blood Culture - Preliminary Blood Culture (Wb) - Other No growth in 48 hours. 07/20/18 09:45 Blood Culture - Final Blood Culture (Wb) - Anticubital Right Clostridium clostridioforme 07/20/18 12:10 Gram Stain - Final Wound Drainage - Other Wound Culture - Final Escherichia coli Acinetobacter spp Anaerobic Culture - Final Bacteroides thetaiotaomicron Bacteroides caccae Anaerobic cocci 07/20/18 08:00 Blood Culture - Final Blood Culture (Wb) - Anticubital Left No growth in 5 days. Laboratory Tests Past 24 Hrs 07/27/18 07/27/18 07/28/18 08:20 11:30 04:25 WBC 13.0 H 15.2 H RBC 2.93 L 2.82 L Hgb 9.1 L 8.8 L Hct 27.2 L 26.1 L MCV 92.8 92.6 MCH 31.1 31.2 MCHC 33.5 33.7 RDW 15.8 H 15.8 H RDW Differential 53.5 H 53.4 H Plt Count 178 206 MPV 11.0 11.3 Immature Gran % (Auto) 1.300 H 1.500 H Neut % (Auto) 78.4 H 79.9 H Lymph % (Auto) 7.3 L 6.4 L [place] % (Auto) 8.8 9.6 Eos % (Auto) 3.8 2.4 Baso % (Auto) 0.4 0.2 Absolute Neuts (auto) 10.2 H 12.1 H Absolute Lymphs (auto) 0.95 0.97 Total Counted Not Reportable Not Reportable Nucleated RBC % 0.1 Differential Comment COMMENT SCANNED Absolute Retic 0.02 Sodium Potassium Chloride Carbon Dioxide Anion Gap BUN Creatinine Estim Creat Clear Calc Est GFR (MDRD) Af Amer Est GFR (MDRD) Non-Af BUN/Creatinine Ratio Glucose Calcium Urine Color Yellow Urine Clarity Clear Urine pH 6.0 Ur Specific [place] 1.015 Urine Protein 30 H Urine Glucose (UA) Normal Urine Ketones Negative Urine Occult Blood 25 H Urine Nitrite Negative Urine Bilirubin Negative Urine Urobilinogen Normal Ur Leukocyte Esterase 25 H Urine RBC 0-5 SEEN Urine WBC 0-5 SEEN Ur Squamous Epith Cells 0-5 SEEN Urine Bacteria 1+ Hyaline Casts 0-5 SEEN Urine Mucus 1+ 07/28/18 04:25 WBC RBC Hgb Hct MCV MCH MCHC RDW RDW Differential Plt Count MPV Immature Gran % (Auto) Neut % (Auto) Lymph % (Auto) [place] % (Auto) Eos % (Auto) Baso % (Auto) Absolute Neuts (auto) Absolute Lymphs (auto) Total Counted Nucleated RBC % Differential Comment Absolute Retic Sodium 140 Potassium 4.5 Chloride 110 H Carbon Dioxide 23.0 Anion Gap 7 BUN 62 H Creatinine 1.51 H Estim Creat Clear Calc 27.35 Est GFR (MDRD) Af Amer 43 L Est GFR (MDRD) Non-Af 35 L BUN/Creatinine Ratio 41.1 H Glucose 118 H Calcium 7.8 L Urine Color Urine Clarity Urine pH Ur Specific [place] Urine Protein Urine Glucose (UA) Urine Ketones Urine Occult Blood Urine Nitrite Urine Bilirubin Urine Urobilinogen Ur Leukocyte Esterase Urine RBC Urine WBC Ur Squamous Epith Cells Urine Bacteria Hyaline Casts Urine Mucus POC Glucose 07/28/18 07/27/18 07/27/18 06:12 23:49 17:37 POC Glucose 111 H 229 H 330 H 07/27/18 09:55 POC Glucose 140 H Medical Necessity - Tobacco Use Smoking Status: Never smoker Tobacco Use: Non-smoker Assessment/Plan All Active Problems (Last Reviewed 03/01/18 @ 13:10 by Victoria Fu) Large bowel perforation (Acute) Septic shock (Acute) DEMETRA (acute kidney injury) (Acute) Pneumococcal pneumonia (Acute) SVT (supraventricular tachycardia) (Acute) 82-year-old female with pneumoperitoneum from perforated splenic flexure of the colon POD#8 s/p ex lap, L colon resection, end colostomy; septic shock-resolved, history of COPD, diabetes, tachycardia-resolved, leukocytosis 1. Start clears/TPN. Await increased bowel function before advancing. Okay for meds with sips. miralax/start colace 2. Tachycardia-resolved, on amiodarone drip per cardiology 3. Leukocytosis?we will check CT abdomen pelvis and blood cultures, patient's chest x-ray question whether the right base there could be infiltrate versus atelectasis yesterday. White blood cell count is 15 from 13 on Zosyn IV. Also consulting ID. 4. Creatinine elevated back to 1.51 we will continue to monitor. Aurora Young M.D. Pager: [phone] [facility] [address] [place] [address], Outpatient [place], [address] [place] [address] Office: [phone]
[2018-07-28] MEDS: Ondansetron 4 MG/2 ML Vial IV (09:03)
--- NOTE | 2018-07-28 11:15 | NURSING ---
There is a small amount of liquid brown stool noted in the ostomy appliance today. stoma remains pink, viable. place to change appliance again tomorrow. patient WBC count slightly elevated today. pt is scheduled for a CT scan of the abdomen. no signs if infection noted with the surgical incision. will continue to monitor.
--- NOTE | 2018-07-28 11:17 | PN_ITS ---
Patient Problems: Active and Suspected Problems (Last Reviewed 03/01/18 @ 13:10 by Victoria Fu) Large bowel perforation (Acute) Septic shock (Acute) Subjective: Patient seen breathing more labored than. WBC count is trending, hemoglobin is down case was discussed with Dr. Hannah plan is for patient undergo CT evaluation and consultation placed to Dr. Pulliam with infectious disease. Objective: GENERAL: Dyspneic at rest HEENT: Atraumatic moist oral mucosa EYES; Anicteric, Normal Conjuctiva NECK; supple, normal thyroid, no distended JVD. RESPIRATORY: Diminished to auscultation bilaterally, CARDIOVASCULAR: Regular S1 S2, no audible murmurs GI: Colostomy with formed stools, normoactive bowel sounds, : No Renal angle tenderness; EXTREMITIES: No edema, no clubbing, no cyanosis. MUSCULOSKELTAL: Joint Tenderness; no muscle waisting NEURO: Awake; no lateralizing signs. SKIN: No Rash PSYCH; Normal affect Vitals/I&O's: Vital Signs Temp Pulse Resp BP Pulse Ox 97.9 F 77 16 106/58 L 98 07/28/18 06:20 07/28/18 07:40 07/28/18 07:14 07/28/18 06:20 07/28/18 07:14 Oxygen Flow Rate (L/min) 2 Oxygen Delivery Method Room Air Weight: 87.5 kg Body Mass Index (BMI) 29.2 Intake and Output for Last 24 Hours 07/26/18 07/27/18 07/28/18 23:59 23:59 23:59 Intake Total 3382.4 / 3382.4 4148.7 / 4148.7 584.3 / 584.3 Output Total 1125 / 1125 750 / 750 300 / 300 Balance 2257.4 / 2257.4 3398.7 / 3398.7 284.3 / 284.3 Microbiology Past 72 Hours 07/20/18 12:10 Wound Drainage - Other Gram Stain - Final 07/20/18 12:10 Wound Drainage - Other Wound Culture - Final Escherichia coli Acinetobacter spp 07/20/18 12:10 Wound Drainage - Other Anaerobic Culture - Final Bacteroides thetaiotaomicron Bacteroides caccae Anaerobic cocci 07/23/18 15:20 Blood Culture (Wb) - Other Blood Culture - Preliminary No growth in 48 hours. 07/20/18 09:45 Blood Culture (Wb) - Anticubital Right Blood Culture - Final Clostridium clostridioforme 07/20/18 08:00 Blood Culture (Wb) - Anticubital Left Blood Culture - Final No growth in 5 days. Laboratory Results 07/27/18 11:30: Urine Color Yellow, Urine Clarity Clear, Urine pH 6.0, Ur Specific [place] 1.015, Urine Protein 30 H, Urine Glucose (UA) Normal, Urine Ketones Negative, Urine Occult Blood 25 H, Urine Nitrite Negative, Urine Bilirubin Negative, Urine Urobilinogen Normal, Ur Leukocyte Esterase 25 H, Urine RBC 0-5 SEEN, Urine WBC 0-5 SEEN, Ur Squamous Epith Cells 0-5 SEEN, Urine Bacteria 1+, Hyaline Casts 0-5 SEEN, Urine Mucus 1+ 07/27/18 17:37: POC Glucose 330 H 07/27/18 23:49: POC Glucose 229 H 07/28/18 04:25: WBC 15.2 H, RBC 2.82 L, Hgb 8.8 L, Hct 26.1 L, MCV 92.6, MCH 31.2, MCHC 33.7, RDW 15.8 H, RDW Differential 53.4 H, Plt Count 206, MPV 11.3, Immature Gran % (Auto) 1.500 H, Neut % (Auto) 79.9 H, Lymph % (Auto) 6.4 L, [place] % (Auto) 9.6, Eos % (Auto) 2.4, Baso % (Auto) 0.2, Absolute Neuts (auto) 12.1 H, Absolute Lymphs (auto) 0.97, Total Counted Not Reportable, Differential Comment SCANNED 07/28/18 04:25: Sodium 140, Potassium 4.5, Chloride 110 H, Carbon Dioxide 23.0, Anion Gap 7, BUN 62 H, Creatinine 1.51 H, Estim Creat Clear Calc 27.35, Est GFR (MDRD) Af Amer 43 L, Est GFR (MDRD) Non-Af 35 L, BUN/Creatinine Ratio 41.1 H, Glucose 118 H, Calcium 7.8 L 07/28/18 06:12: POC Glucose 111 H Current Medications Acetaminophen (Tylenol) 650 mg PO Q6H PRN PRN PRN Reason: Mild Pain (1-3)/Temp > 100.7 F Albuterol/Ipratropium (Duoneb) 3 ml INHALATION Q4H PRN PRN PRN Reason: SHORTNESS OF BREATH Amiodarone HCl (Cordarone) 200 mg PO BID [facility] Last Admin: 07/27/18 22:14 Dose: 200 mg Budesonide (Pulmicort Aerosol) 0.5 mg INHALATION BID.RT [facility] Last Admin: 07/28/18 07:14 Dose: 0.5 mg Dextrose (D50w Syringe) 0 gm IV X1 PRN; Protocol PRN Reason: Hypoglycemia Docusate Sodium (Colace) 100 mg PO DAILY [facility] Last Admin: 07/27/18 08:07 Dose: 100 mg Glucagon () 1 mg IM .X1 PRN PRN Reason: Hypoglycemia Heparin Sodium (Porcine) (Heparin Na) 5,000 unit SC BID [facility] Last Admin: 07/27/18 22:14 Dose: 5,000 unit Sodium Chloride () 250 mls @ 15 mls/hr IV .[id number] PRN PRN Reason: SALINE FLUSH Last Admin: 07/21/18 09:47 Dose: 15 mls/hr Sodium Chloride () 250 mls @ 15 mls/hr IV .[id number] PRN PRN Reason: SALINE FLUSH Multivitamins 5 ml/ Chromium/Copper/Manganese/Seleni/Zn 0.5 ml/ Folic Acid 0.5 mg/Famotidine 10 mg/ Potassium Chloride 60 meq/ Insulin Human Lispro 60 unit/ Amino Acids 1,037.2 mls @ 84 mls/hr IV .[id number] [facility]; Protocol Stop: 07/28/18 16:41 Last Admin: 07/28/18 04:46 Dose: 84 mls/hr Meropenem 500 mg/ Sodium (Chloride) 60 mls @ 100 mls/hr IV Q8 [facility] Insulin Glargine (Lantus (Bkc)) 10 units SC [facility] Last Admin: 07/28/18 06:14 Dose: 10 units Insulin Human Lispro (Humalog Kwikpen (Bkc)) 0 unit SC Q6 [facility]; Protocol Last Admin: 07/28/18 06:13 Dose: Not Given Magnesium Hydroxide (Milk Of Magnesia) 30 ml PO DAILY PRN PRN PRN Reason: Constipation Metoprolol Tartrate (Lopressor (Beta Jose)) 5 mg IV Q6 PRN PRN Reason: TO CONTROL HEART RATE Last Admin: 07/21/18 19:35 Dose: 2.5 mg Morphine Sulfate () 1 mg IV Q4H PRN PRN PRN Reason: SEVERE PAIN (6-10/10) Ondansetron HCl (Zofran) 4 mg IV Q8H PRN PRN PRN Reason: NAUSEA Last Admin: 07/28/18 09:03 Dose: 4 mg Sodium Chloride () 10 - 40 ml IV UD PRN PRN Reason: MULTILUMEN/HICMAN CATH FLUSH Last Admin: 07/28/18 09:03 Dose: 10 ml Medical Necessity - Tobacco Use Smoking Status: Never smoker Tobacco Use: Non-smoker Assessment/Plan All Active Problems (Last Reviewed 03/01/18 @ 13:10 by Victoria Fu) Large bowel perforation (Acute) Septic shock (Acute) DEMETRA (acute kidney injury) (Acute) Pneumococcal pneumonia (Acute) SVT (supraventricular tachycardia) (Acute) Patient is an 82-year-old lady with multiple comorbidities who was admitted with episodes of confusion and assessment of septic shock secondary to acute peritonitis as a result of perforated descending colon made. Admitted to intensive care unit patient underwent exploratory laparotomy with colon resection and end colostomy placed. 1. Septic shock secondary to peritonitis as a result of perforated descending colon near the splenic flexure; resolved. Patient however has experienced increasing leukocytosis. Consult was therefore placed to infectious disease blood cultures and CT of the abdomen and pelvis ordered. Case discussed with Dr Dr Hannah 2. Acute perforated descending colon near the splenic flexure patient underwent Exploratory laparotomy, mobilization of the splenic flexure, left colon resection, end colostomy on 07/20/[address] Hannah 3. Post Op/ICU delirium resolved with nonpharmacological treatment 4. Diabetes mellitus type 2 patient's oral hypoglycemic agents held on admission. Managed with long-acting insulin as well as Accu-Cheks every 4 hours with lispro coverage 5. Severe protein calorie malnutrition as a result of above patient is on nutritional supplementation with TPN 4. Acute kidney injury secondary to ATN from septic shock kidney function appears to be improving 6. Hypernatremia; adjusted IV fluids 7. Acute hypoxic respiratory failure patient was electively intubated for surgery and successfully weaned off 8. COPD currently not in exacerbation 9. Hypokalemia corrected per protocol 10. Hypomagnesemia corrected per protocol 11. History of PSVT currently stable 12. Hypertension-blood pressure controlled, home medications continued with dose adjustment as needed 13. Hypothyroidism-patient is on levothyroxine home dose continued 14. DVT prophylaxis SC heparin 15. Physical deconditioning PT OT requested. social services manager involved in disposition CODE STATUS DNR CCA Clinical Impression(s) from Imaging Studies KUB X-Ray 07/26/18 07:45 IMPRESSION: Moderate amount of fecal material is seen in the colon. A colostomy is seen in the left lower quadrant. Atelectasis and/or infiltrate in the right lower lobe. Electronically Signed: Jourdan De La Fuente MD at 11:10 EDT Tel [phone], Service support , Chest X-Ray 07/27/18 09:09 IMPRESSION: Progressive increased markings at the right lung base. The endotracheal tube has been removed. Electronically Signed: Jourdan De La Fuente MD at 13:11 EDT Tel [phone], Service support , Code Visit Inpatient E&M: 11372 Subs Hosp L3
--- NOTE | 2018-07-28 11:57 | PCM.HP.ID ---
Problem List (1) Large bowel perforation Status: Acute Reason for Consult: leukocytosis Consulted by: Dr. Lewis History of Present Illness: The patient is a 82 year old F with presentation 07/20 with sudden onset severe abd pain, found to have bowel perf, taken to OR that day, large amount of stool removed from abd. Ostomy placed. bcx with Clostridium. Initially on clinda/aztreonam, changed to unasyn. Was in icu with septic shock. Now out of icu, line still in place in [place], feeling ok, starting some po intake, no fever, no abd pain, mild nausea. Wbc up for past 2 days. Unasyn changed to zosyn on 07/27. Daughter at bedside. Denies any cough or SOB. Full ROS performed and neg except as noted above. - Medical History Past Medical History (Chronic Problems): Chronic Problems (Last Reviewed 03/01/18 @ 13:10 by Victoria Fu) Takotsubo cardiomyopathy (Chronic) Nonrheumatic tricuspid (valve) insufficiency (Chronic) Atherosclerotic heart disease of [place] coronary artery without angina pectoris (Chronic) Mild Hypothyroidism (Chronic) COPD (chronic obstructive pulmonary disease) (Chronic) Hyperlipidemia (Chronic) Type 2 diabetes mellitus (Chronic) Allergies/Adverse Reactions: Allergies codeine Allergy (Severe, Verified 07/20/18 08:52) HEART ATTACK levofloxacin [From Levaquin] Allergy (Severe, Verified 07/20/18 08:52) Anaphylaxis Sulfa (Sulfonamide Antibiotics) Allergy (Unknown, Verified 07/20/18 08:52) Unknown adhesive tape Allergy (Verified 07/20/18 08:52) Other citalopram Allergy (Verified 07/20/18 08:52) Unknown Latex, Natural Rubber Allergy (Verified 07/20/18 08:52) Rash Penicillins Allergy (Verified 07/20/18 08:52) Rash acetaminophen [From Vicodin] Adverse Reaction (Verified 07/20/18 08:52) Chest tightness hydrocodone bitartrate [From Vicodin] Adverse Reaction (Verified 07/20/18 08:52) Chest tightness Home Medications: Ambulatory Orders Medication Instructions Recorded Levothyroxine [Synthroid] 25 mcg PO DAILY@0600 05/23/16 Meloxicam [Mobic] 15 mg PO QODAY 05/23/16 Multivit with Calcium,Iron,Min 1 tab PO DAILY 05/23/16 [Multiple Vitamins For Women] Trazodone HCl 50 mg PO QHS 05/23/16 Ubidecarenone [Coenzyme Q-10] 200 mg PO DAILY 03/26/17 Atorvastatin Calcium [Lipitor] 20 mg PO QHS 03/01/18 ondansetron HCl 4 mg tablet 4 mg PO Q8H tab 03/01/18 oxybutynin chloride ER 10 mg 10 mg PO QHS 03/01/18 tablet,extended release 24 hr Hydroxyzine HCl 25 mg PO DAILY PRN 03/03/18 Ipratropium/Albuterol Sulfate 3 ml INHALATION Q4H.RT PRN 05/09/18 [Duoneb] Loperamide HCl [Loperamide] 2 mg PO PRN PRN 05/09/18 Fluticasone/Salmeterol [Advair 1 puff INHALATION BID 06/04/18 500/50 Mcg Diskus] Aspirin [Aspirin, Baby] 81 mg PO DAILY@0800 07/20/18 Cholecalciferol (Vitamin D3) 1,000 unit PO DAILY 07/20/18 [Vitamin D3] Cyanocobalamin (Vitamin B-12) 1,000 mcg PO DAILY 07/20/18 [Vitamin B-12] Diltiazem [Cardizem] 60 mg PO BID 07/20/18 Insulin Aspart [Novolog Flexpen 8 units SC DINNER 07/20/18 ([facility])] Insulin Aspart [Novolog Flexpen 8 units SC LUNCH 07/20/18 ([facility])] Insulin Detemir [Levemir ([facility])] 40 units SC QHS 07/20/18 Metformin HCl [Glucophage] 500 mg PO BIDCM 07/20/18 Metoprolol Tartrate [Lopressor 50 mg PO BID 07/20/18 (beta katty)] Vitamin E 400 unit PO DAILY 07/20/18 - Social History SMOKING STATUS:: Never smoker Vital Signs Temp Pulse Resp BP Pulse Ox 97.8 F 85 19 H 117/74 94 07/28/18 11:24 07/28/18 11:24 07/28/18 11:24 07/28/18 11:24 07/28/18 11:24 Oxygen Flow Rate (L/min) 2 Oxygen Delivery Method Room Air Weight: 87.5 kg Body Mass Index (BMI) 29.2 Microbiology Past 72 Hours 07/20/18 12:10 Gram Stain - Final Wound Drainage - Other Wound Culture - Final Escherichia coli Acinetobacter spp Anaerobic Culture - Final Bacteroides thetaiotaomicron Bacteroides caccae Anaerobic cocci 07/23/18 15:20 Blood Culture - Preliminary Blood Culture (Wb) - Other No growth in 48 hours. 07/20/18 09:45 Blood Culture - Final Blood Culture (Wb) - Anticubital Right Clostridium clostridioforme 07/20/18 08:00 Blood Culture - Final Blood Culture (Wb) - Anticubital Left No growth in 5 days. Laboratory Tests Past 24 Hrs 07/27/18 07/28/18 07/28/18 11:30 04:25 04:25 WBC 15.2 H RBC 2.82 L Hgb 8.8 L Hct 26.1 L MCV 92.6 MCH 31.2 MCHC 33.7 RDW 15.8 H RDW Differential 53.4 H Plt Count 206 MPV 11.3 Immature Gran % (Auto) 1.500 H Neut % (Auto) 79.9 H Lymph % (Auto) 6.4 L [place] % (Auto) 9.6 Eos % (Auto) 2.4 Baso % (Auto) 0.2 Absolute Neuts (auto) 12.1 H Absolute Lymphs (auto) 0.97 Total Counted Not Reportable Differential Comment SCANNED Sodium 140 Potassium 4.5 Chloride 110 H Carbon Dioxide 23.0 Anion Gap 7 BUN 62 H Creatinine 1.51 H Estim Creat Clear Calc 27.35 Est GFR (MDRD) Af Amer 43 L Est GFR (MDRD) Non-Af 35 L BUN/Creatinine Ratio 41.1 H Glucose 118 H Calcium 7.8 L Urine Color Yellow Urine Clarity Clear Urine pH 6.0 Ur Specific [place] 1.015 Urine Protein 30 H Urine Glucose (UA) Normal Urine Ketones Negative Urine Occult Blood 25 H Urine Nitrite Negative Urine Bilirubin Negative Urine Urobilinogen Normal Ur Leukocyte Esterase 25 H Urine RBC 0-5 SEEN Urine WBC 0-5 SEEN Ur Squamous Epith Cells 0-5 SEEN Urine Bacteria 1+ Hyaline Casts 0-5 SEEN Urine Mucus 1+ - Other Studies Radiology: [] reviewed Other Studies: [] Route of nutrition/ use of supplements: [] Nutritional Intake: [] IV Site: [] Benitez Catheter: [] - Physical Exam General: Alert, Cooperative, No apparent distress HEENT: Atraumatic, PERRLA, EOMI Neck: Supple, No Nodes Lungs: Diminished, Rhonchi - scattered Cardiovascular: Regular rate, Regular Rhythm Abdomen: Soft, Non Tender, Non-Distended, - - ostomy and incision with yuriy, no redness Extremities: Edema IV Site: Central Line, without redness Musculoskeletal: No Tenderness to Palpation of Joints or Extremities Neurological: Cranial nerves II-XII grossly intact - Assessment/Plan Antibiotics: [] Assessment/Plan: [] Active and Suspected Problems (Last Reviewed 03/01/18 @ 13:10 by Victoria Fu) Large bowel perforation (Acute) Septic shock (Acute) Septic shock improved. New leukocytosis. Overall no new complaints, but some lung changes on exam and xray. Single bcx with clostridium and prior surg cx with ecoli, Acinetobacter, and multiple anaerobes. Spoke with micro lab, and they do not have unasyn sensitivity testing on the acinetobacter; they will perform unasyn and tetracycline testing. Zosyn does not have acinetobacter activity. 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 Repeat CT abd/pelvis pending. Surg incision appears to be doing well. Will follow, thank you.
--- NOTE | 2018-07-28 12:02 | CON.PCM_ITS ---
Problem List (1) Large bowel perforation Status: Acute Reason for Consult: leukocytosis Consulted by: Dr. Lewis History of Present Illness: The patient is a 82 year old F with presentation 07/20 with sudden onset severe abd pain, found to have bowel perf, taken to OR that day, large amount of stool removed from abd. Ostomy placed. bcx with Clostridium. Initially on clinda/aztreonam, changed to unasyn. Was in icu with septic shock. Now out of icu, line still in place in [place], feeling ok, starting some po intake, no fever, no abd pain, mild nausea. Wbc up for past 2 days. Unasyn changed to zosyn on 07/27. Daughter at bedside. Denies any cough or SOB. Full ROS performed and neg except as noted above. 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 (Chronic) COPD (chronic obstructive pulmonary disease) (Chronic) Hyperlipidemia (Chronic) Type 2 diabetes mellitus (Chronic) Allergies/Adverse Reactions: Allergies codeine Allergy (Severe, Verified 07/20/18 08:52) HEART ATTACK levofloxacin [From Levaquin] Allergy (Severe, Verified 07/20/18 08:52) Anaphylaxis Sulfa (Sulfonamide Antibiotics) Allergy (Unknown, Verified 07/20/18 08:52) Unknown adhesive tape Allergy (Verified 07/20/18 08:52) Other citalopram Allergy (Verified 07/20/18 08:52) Unknown Latex, Natural Rubber Allergy (Verified 07/20/18 08:52) Rash Penicillins Allergy (Verified 07/20/18 08:52) Rash acetaminophen [From Vicodin] Adverse Reaction (Verified 07/20/18 08:52) Chest tightness hydrocodone bitartrate [From Vicodin] Adverse Reaction (Verified 07/20/18 08:52) Chest tightness Home Medications: Ambulatory Orders Medication Instructions Recorded Levothyroxine [Synthroid] 25 mcg PO DAILY@0600 05/23/16 Meloxicam [Mobic] 15 mg PO QODAY 05/23/16 Multivit with Calcium,Iron,Min 1 tab PO DAILY 05/23/16 [Multiple Vitamins For Women] Trazodone HCl 50 mg PO QHS 05/23/16 Ubidecarenone [Coenzyme Q-10] 200 mg PO DAILY 03/26/17 Atorvastatin Calcium [Lipitor] 20 mg PO QHS 03/01/18 ondansetron HCl 4 mg tablet 4 mg PO Q8H tab 03/01/18 oxybutynin chloride ER 10 mg 10 mg PO QHS 03/01/18 tablet,extended release 24 hr Hydroxyzine HCl 25 mg PO DAILY PRN 03/03/18 Ipratropium/Albuterol Sulfate 3 ml INHALATION Q4H.RT PRN 05/09/18 [Duoneb] Loperamide HCl [Loperamide] 2 mg PO PRN PRN 05/09/18 Fluticasone/Salmeterol [Advair 1 puff INHALATION BID 06/04/18 500/50 Mcg Diskus] Aspirin [Aspirin, Baby] 81 mg PO DAILY@0800 07/20/18 Cholecalciferol (Vitamin D3) 1,000 unit PO DAILY 07/20/18 [Vitamin D3] Cyanocobalamin (Vitamin B-12) 1,000 mcg PO DAILY 07/20/18 [Vitamin B-12] Diltiazem [Cardizem] 60 mg PO BID 07/20/18 Insulin Aspart [Novolog Flexpen 8 units SC DINNER 07/20/18 ([facility])] Insulin Aspart [Novolog Flexpen 8 units SC LUNCH 07/20/18 ([facility])] Insulin Detemir [Levemir ([facility])] 40 units SC QHS 07/20/18 Metformin HCl [Glucophage] 500 mg PO BIDCM 07/20/18 Metoprolol Tartrate [Lopressor 50 mg PO BID 07/20/18 (beta katty)] Vitamin E 400 unit PO DAILY 07/20/18 - Social History SMOKING STATUS:: Never smoker Vital Signs Temp Pulse Resp BP Pulse Ox 97.8 F 85 19 H 117/74 94 07/28/18 11:24 07/28/18 11:24 07/28/18 11:24 07/28/18 11:24 07/28/18 11:24 Oxygen Flow Rate (L/min) 2 Oxygen Delivery Method Room Air Weight: 87.5 kg Body Mass Index (BMI) 29.2 Microbiology Past 72 Hours 07/20/18 12:10 Gram Stain - Final Wound Drainage - Other Wound Culture - Final Escherichia coli Acinetobacter spp Anaerobic Culture - Final Bacteroides thetaiotaomicron Bacteroides caccae Anaerobic cocci 07/23/18 15:20 Blood Culture - Preliminary Blood Culture (Wb) - Other No growth in 48 hours. 07/20/18 09:45 Blood Culture - Final Blood Culture (Wb) - Anticubital Right Clostridium clostridioforme 07/20/18 08:00 Blood Culture - Final Blood Culture (Wb) - Anticubital Left No growth in 5 days. Laboratory Tests Past 24 Hrs 07/27/18 07/28/18 07/28/18 11:30 04:25 04:25 WBC 15.2 H RBC 2.82 L Hgb 8.8 L Hct 26.1 L MCV 92.6 MCH 31.2 MCHC 33.7 RDW 15.8 H RDW Differential 53.4 H Plt Count 206 MPV 11.3 Immature Gran % (Auto) 1.500 H Neut % (Auto) 79.9 H Lymph % (Auto) 6.4 L [place] % (Auto) 9.6 Eos % (Auto) 2.4 Baso % (Auto) 0.2 Absolute Neuts (auto) 12.1 H Absolute Lymphs (auto) 0.97 Total Counted Not Reportable Differential Comment SCANNED Sodium 140 Potassium 4.5 Chloride 110 H Carbon Dioxide 23.0 Anion Gap 7 BUN 62 H Creatinine 1.51 H Estim Creat Clear Calc 27.35 Est GFR (MDRD) Af Amer 43 L Est GFR (MDRD) Non-Af 35 L BUN/Creatinine Ratio 41.1 H Glucose 118 H Calcium 7.8 L Urine Color Yellow Urine Clarity Clear Urine pH 6.0 Ur Specific [place] 1.015 Urine Protein 30 H Urine Glucose (UA) Normal Urine Ketones Negative Urine Occult Blood 25 H Urine Nitrite Negative Urine Bilirubin Negative Urine Urobilinogen Normal Ur Leukocyte Esterase 25 H Urine RBC 0-5 SEEN Urine WBC 0-5 SEEN Ur Squamous Epith Cells 0-5 SEEN Urine Bacteria 1+ Hyaline Casts 0-5 SEEN Urine Mucus 1+ - Other Studies Radiology: [] reviewed Other Studies: [] Route of nutrition/ use of supplements: [] Nutritional Intake: [] IV Site: [] Benitez Catheter: [] - Physical Exam General: Alert, Cooperative, No apparent distress HEENT: Atraumatic, PERRLA, EOMI Neck: Supple, No Nodes Lungs: Diminished, Rhonchi - scattered Cardiovascular: Regular rate, Regular Rhythm Abdomen: Soft, Non Tender, Non-Distended, - - ostomy and incision with yuriy, no redness Extremities: Edema IV Site: Central Line, without redness Musculoskeletal: No Tenderness to Palpation of Joints or Extremities Neurological: Cranial nerves II-XII grossly intact - Assessment/Plan Antibiotics: [] Assessment/Plan: [] Active and Suspected Problems (Last Reviewed 03/01/18 @ 13:10 by Victoria Fu) Large bowel perforation (Acute) Septic shock (Acute) Septic shock improved. New leukocytosis. Overall no new complaints, but some lung changes on exam and xray. Single bcx with clostridium and prior surg cx with ecoli, Acinetobacter, and multiple anaerobes. Spoke with micro lab, and they do not have unasyn sensitivity testing on the acinetobacter; they will perform unasyn and tetracycline testing. Zosyn does not have acinetobacter activity. 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 Repeat CT abd/pelvis pending. Surg incision appears to be doing well. Will follow, thank you.
--- NOTE | 2018-07-28 12:18 | NS ---
Current TPN order is 2 L 4.25%/10% dextrose at 84mL/hour to provide 1020 calories and 84 gm protein per day. Re-estimated nutrition needs 7547-4112 calories/day therefore TPN as ordered not meeting nutritional needs. PO diet of clear liquids w/ TPN is not sufficient enough to meet nutritional needs. Rec change TPN to 2L 5% AA/ 20% Dextrose with 250 cc 20% Lipids 3x/wk to provide ~ 2000 bhupinder / 100 gm pro/day. See RD follow-up assessment for further details. Tana Houston MS, RDN, LD
[2018-07-28] MEDS: Heparin Injection (Vial) 5,000 UNIT/ML VIAL 5000 UNIT SC ×2 (12:22→21:52)
[2018-07-28] MEDS: Docusate Sodium 100 MG Capsule PO (12:23)
[2018-07-28] MEDS: Amiodarone 200 MG Tablet PO ×2 (12:24→21:51)
[2018-07-28 12:40] LABS: Bedside Glucose 107 mg/dL (70-110)
--- NOTE | 2018-07-28 13:01 | CASEMGMT ---
PHILLIP faxed updates to Solomon. Marisel WHITE RN [employer]
[2018-07-28] MEDS: Polyethylene Glycol 3350 17 GM PACKET PO (16:59)
[2018-07-28 17:45] LABS: Bedside Glucose 109 mg/dL (70-110)
--- NOTE | 2018-07-28 18:32 | PCM.PN.CARD ---
Subjectve: The patient appears to be resting comfortably at this time with no new acute symptoms or complaints. Objective: Vital Signs Temp Pulse Resp BP Pulse Ox 97.6 F L 84 19 H 121/71 H 97 07/28/18 15:25 07/28/18 15:56 07/28/18 15:25 07/28/18 15:25 07/28/18 15:25 Oxygen Flow Rate (L/min) 2 Oxygen Delivery Method Room Air Weight: 192 lb 14.472 oz Body Mass Index (BMI) 29.2 Intake and Output for Last 24 Hours 07/26/18 07/27/18 07/28/18 23:59 23:59 23:59 Intake Total 3382.4 / 3382.4 4148.7 / 4148.7 1567.3 / 1567.3 Output Total 1125 / 1125 750 / 750 475 / 475 Balance 2257.4 / 2257.4 3398.7 / 3398.7 1092.3 / 1092.3 General: Awake, Cooperative, No Acute Distress Neck: Supple, Good ROM, No JVD Lungs: Clear to auscultation Cardiovascular: Regular Rhythm, Normal S1, Normal S2 Abdomen: Hypoactive Bowel Sounds 07/28/18 04:25: WBC 15.2 H, RBC 2.82 L, Hgb 8.8 L, Hct 26.1 L, MCV 92.6, MCH 31.2, MCHC 33.7, RDW 15.8 H, RDW Differential 53.4 H, Plt Count 206, MPV 11.3, Immature Gran % (Auto) 1.500 H, Neut % (Auto) 79.9 H, Lymph % (Auto) 6.4 L, [place] % (Auto) 9.6, Eos % (Auto) 2.4, Baso % (Auto) 0.2, Absolute Neuts (auto) 12.1 H, Total Counted Not Reportable 07/28/18 04:25: Sodium 140, Potassium 4.5, Chloride 110 H, Carbon Dioxide 23.0, Anion Gap 7, BUN 62 H, Creatinine 1.51 H, Est GFR (MDRD) Af Amer 43 L, Est GFR (MDRD) Non-Af 35 L, BUN/Creatinine Ratio 41.1 H, Glucose 118 H, Calcium 7.8 L Rhythm: Sinus rhythm; one episode of PSVT with spontaneous resolution to sinus rhythm Medical Necessity - Tobacco Use Smoking Status: Never smoker Tobacco Use: Non-smoker Assessment/Plan 1. Supraventricular tachycardia The patient has had recurrent supraventricular tachycardia. At the present time she will initiate additional rate limiting therapy with beta-katty. Hopefully this, along with amiodarone, barring unforeseen adverse events, will help minimize the recurrence of her PSVT. Again, over time, when she is improved from her noncardiovascular condition she may need to be considered for EP study for EPS/RFA. 2. Takotsubo syndrome The patient has a history of an underlying non-CAD related cardiomyopathy compatible with a Takotsubo syndrome lash apical ballooning interim. Over time her LV systolic function has improved. Her recent noninvasive studies would suggest preserved overall LV systolic function and no obvious evidence of myocardial ischemia to suggest the development of underlying CAD. Thus at the present time she will need to be followed, during the stressful event, for any obvious recurrence of the aforementioned syndrome. She may need, depending upon her clinical course, to be reevaluated with echocardiographic studies, etc. 3. CAD The patient has a history of LAD mild calcification as noted above. She was not described as having angiographically significant appearing CAD. Her recent pharmacologic stress nuclear imaging study would not suggest any obvious hemodynamically significant CAD as she had no obvious evidence of ongoing myocardial ischemia. Thus she should continue risk factor evaluation care as deemed appropriate when she is able. 4. Hyperlipidemia The patient should continue evaluation and medical management as deemed appropriate for her age when she is able. 5. Diabetes mellitus She will need to continue under the care of internal medicine for this. 6. COPD She is being evaluated by internal medicine and pulmonology. 7. Hypothyroidism Again she will need to continue under the care of internal medicine for this. If she remains on amiodarone she will need to have her thyroid functions followed and medications adjusted as deemed appropriate. 8. Colon perforation She is now status post surgical intervention. She continues to be followed by general surgery. She is continuing oral medical therapy at this time. 9. Sepsis syndrome This is thought due to her underlying colon perforation. She continues care by internal medicine, general surgery, and infectious disease. 10. Acute renal insufficiency Her creatinine level was markedly elevated upon admission. Her renal function has improved however it does wax and wane. This note was generated with [employer] software. It may contain incorrect words, spelling, and punctuation that were not noted in checking the note before signing.
[2018-07-29] VITALS (12 sets, daily range): BP systolic 126–148; BP diastolic 51–75; PULSE 74–85; RESP 17–20; TEMP 36.4–36.9; O2SAT 96–99
[2018-07-29 00:01] LABS: Bedside Glucose 106 mg/dL (70-110)
[2018-07-29 05:45] LABS: Anion Gap 8 (5-15); BUN 67 mg/dL (7-18); BUN/Creat Ratio 41.4 RATIO (10-20); Chloride 110 mmol/L (98-107); Creatinine, Serum 1.62 mg/dL (0.55-1.02); EST Glomerular Filtration Rate 32 mL/min (>60); Est Glom Filt Rate - Afr Amer 39 mL/min (>60); Glucose 138 mg/dL (74-106); Potassium 5.1 mmol/L (3.5-5.1); Sodium Level 138 mmol/L (136-145)
[2018-07-29 05:57] LABS: Absolute Lymphocyte Count 1.67 X10^3/ul (0.83-4.51); Absolute Neutrophil Count 13.3 X10^3/uL (2.0-7.7); Basophil# 0.04 X10^3/uL; Basophil% 0.2 % (0-1); Eosinophil# 0.35 X10^3/uL; Eosinophils% 2.2 % (0-5); Hematocrit 25.8 % (37-47); Hemoglobin 8.6 g/dl (12.0-15.0); Lymphocyte # 1.67 X10^3/ul (4.0); Lymphocyte % 10.4 % (19-41); Mean Corp Hgb Conc 33.3 g/gl (32-36); Mean Corpuscular Hgb 31.5 pg (27.0-32.0); Mean Corpuscular Volume 94.5 fL (81-99); Mean Platelet Vol. 11.5 fl (6.2-12.0); Monocyte# 0.49 X10^3/uL; Neutrophil # 13.34 X10^3/uL (2.7-7.7); Neutrophil % 83.1 % (47-70); Platelet Count 221 K/mm3 (150-450); RBC Distribution Width CV 16.4 % (11.6-14.6); RBC Distribution Width SD 54.9 fl (35.1-43.9); Red Blood Count 2.73 M/mm3 (4.2-5.4); White Blood Count 16.1 K/mm3 (4.4-11.0)
[2018-07-29 06:08] LABS: Differential Indicated SCAN CRITERIA MET; POSITIVE COUNT NO; POSITIVE DIFFERENTIAL NO; POSITIVE MORPHOLOGY YES
[2018-07-29] MEDS: Ondansetron 4 MG/2 ML Vial IV (06:22)
[2018-07-29 06:48] LABS: Differential Comment SCANNED; Toxic Granulation 1+
--- NOTE | 2018-07-29 06:56 | PCM.PN.SRG ---
Patient Problems: Active and Suspected Problems (Last Reviewed 03/01/18 @ 13:10 by Victoria Fu) Large bowel perforation (Acute) Septic shock (Acute) Subjective: Patient complains of nausea and some occasional abdominal pain, not having much hard stool from the colostomy only liquid stool - Physical Exam General: Alert, Cooperative, No apparent distress HEENT: Atraumatic Lungs: Wheezes - Audible Abdomen: Soft, Distended - Moderate, Tender - Diffuse mild, no peritoneal signs, - - Incision clean dry and intact with yuriy mild erythema at yuriy no signs of infection, colostomy mild edema-digitized stoma revealed a hard stool beyond the fascia Vital Signs Temp Pulse Resp BP Pulse Ox 97.8 F 83 20 H 126/75 H 98 07/29/18 03:25 07/29/18 03:25 07/29/18 03:25 07/29/18 03:25 07/29/18 03:25 Oxygen Flow Rate (L/min) 2 Oxygen Delivery Method Room Air Weight: 195 lb 15.855 oz Body Mass Index (BMI) 29.2 Intake and Output for Last 24 Hours 07/27/18 07/28/18 07/29/18 23:59 23:59 23:59 Intake Total 4148.7 / 4148.7 2793.3 / 2793.3 539 / 539 Output Total 750 / 750 845 / 845 325 / 325 Balance 3398.7 / 3398.7 1948.3 / 1948.3 214 / 214 Microbiology Past 72 Hours 07/20/18 12:10 Gram Stain - Final Wound Drainage - Other Wound Culture - Final Escherichia coli Acinetobacter spp Anaerobic Culture - Final Bacteroides thetaiotaomicron Bacteroides caccae Anaerobic cocci Laboratory Tests Past 24 Hrs 07/29/18 07/29/18 05:10 05:10 WBC 16.1 H RBC 2.73 L Hgb 8.6 L Hct 25.8 L MCV 94.5 MCH 31.5 MCHC 33.3 RDW 16.4 H RDW Differential 54.9 H Plt Count 221 MPV 11.5 Immature Gran % (Auto) 1.100 H Neut % (Auto) 83.1 H Lymph % (Auto) 10.4 L [place] % (Auto) 3.0 Eos % (Auto) 2.2 Baso % (Auto) 0.2 Absolute Neuts (auto) 13.3 H Absolute Lymphs (auto) 1.67 Total Counted Not Reportable Differential Comment SCANNED Toxic Granulation 1+ Sodium 138 Potassium 5.1 Chloride 110 H Carbon Dioxide 20.0 L Anion Gap 8 BUN 67 H Creatinine 1.62 H Estim Creat Clear Calc 25.50 Est GFR (MDRD) Af Amer 39 L Est GFR (MDRD) Non-Af 32 L BUN/Creatinine Ratio 41.4 H Glucose 138 H Calcium 8.0 L POC Glucose 07/28/18 07/28/18 07/28/18 23:51 17:26 12:19 POC Glucose 106 109 107 Medical Necessity - Tobacco Use Smoking Status: Never smoker Tobacco Use: Non-smoker Assessment/Plan All Active Problems (Last Reviewed 03/01/18 @ 13:10 by Victoria Fu) Large bowel perforation (Acute) Septic shock (Acute) DEMETRA (acute kidney injury) (Acute) Pneumococcal pneumonia (Acute) SVT (supraventricular tachycardia) (Acute) 82-year-old female with pneumoperitoneum from perforated splenic flexure of the colon POD#9 s/p ex lap, L colon resection, end colostomy; septic shock-resolved, history of COPD, diabetes, tachycardia-resolved, leukocytosis 1. Positive nausea/occasional abdominal pain per patient. No hard stool from the colostomy. CT reveals its all in the transverse colon just before the colostomy. Digitized stoma also revealed hard stool. Mineral oil was placed in the at the stoma about a third of the container to help try and soften the stool. Will keep patient on TPN until she starts to have stool per colostomy. 2. Tachycardia-resolved, on amiodarone drip per cardiology 3. Leukocytosis?up to 16 from 15 on meropenem per ID. Continue to monitor 4. Creatinine elevated back to 1.65 we will continue to monitor. Aurora Young M.D. Pager: [phone] [facility] [address] [place] [address], [facility], [address] [place] [address] Office: [phone]
--- NOTE | 2018-07-29 07:00 | PN.SURG_ITS ---
Patient Problems: Active and Suspected Problems (Last Reviewed 03/01/18 @ 13:10 by Victoria Fu) Large bowel perforation (Acute) Septic shock (Acute) Subjective: Patient complains of nausea and some occasional abdominal pain, not having much hard stool from the colostomy only liquid stool - Physical Exam General: Alert, Cooperative, No apparent distress HEENT: Atraumatic Lungs: Wheezes - Audible Abdomen: Soft, Distended - Moderate, Tender - Diffuse mild, no peritoneal signs, - - Incision clean dry and intact with yuriy mild erythema at yuriy no signs of infection, colostomy mild edema-digitized stoma revealed a hard stool beyond the fascia Vital Signs Temp Pulse Resp BP Pulse Ox 97.8 F 83 20 H 126/75 H 98 07/29/18 03:25 07/29/18 03:25 07/29/18 03:25 07/29/18 03:25 07/29/18 03:25 Oxygen Flow Rate (L/min) 2 Oxygen Delivery Method Room Air Weight: 195 lb 15.855 oz Body Mass Index (BMI) 29.2 Intake and Output for Last 24 Hours 07/27/18 07/28/18 07/29/18 23:59 23:59 23:59 Intake Total 4148.7 / 4148.7 2793.3 / 2793.3 539 / 539 Output Total 750 / 750 845 / 845 325 / 325 Balance 3398.7 / 3398.7 1948.3 / 1948.3 214 / 214 Microbiology Past 72 Hours 07/20/18 12:10 Gram Stain - Final Wound Drainage - Other Wound Culture - Final Escherichia coli Acinetobacter spp Anaerobic Culture - Final Bacteroides thetaiotaomicron Bacteroides caccae Anaerobic cocci Laboratory Tests Past 24 Hrs 07/29/18 07/29/18 05:10 05:10 WBC 16.1 H RBC 2.73 L Hgb 8.6 L Hct 25.8 L MCV 94.5 MCH 31.5 MCHC 33.3 RDW 16.4 H RDW Differential 54.9 H Plt Count 221 MPV 11.5 Immature Gran % (Auto) 1.100 H Neut % (Auto) 83.1 H Lymph % (Auto) 10.4 L [place] % (Auto) 3.0 Eos % (Auto) 2.2 Baso % (Auto) 0.2 Absolute Neuts (auto) 13.3 H Absolute Lymphs (auto) 1.67 Total Counted Not Reportable Differential Comment SCANNED Toxic Granulation 1+ Sodium 138 Potassium 5.1 Chloride 110 H Carbon Dioxide 20.0 L Anion Gap 8 BUN 67 H Creatinine 1.62 H Estim Creat Clear Calc 25.50 Est GFR (MDRD) Af Amer 39 L Est GFR (MDRD) Non-Af 32 L BUN/Creatinine Ratio 41.4 H Glucose 138 H Calcium 8.0 L POC Glucose 07/28/18 07/28/18 07/28/18 23:51 17:26 12:19 POC Glucose 106 109 107 Medical Necessity - Tobacco Use Smoking Status: Never smoker Tobacco Use: Non-smoker Assessment/Plan All Active Problems (Last Reviewed 03/01/18 @ 13:10 by Victoria Fu) Large bowel perforation (Acute) Septic shock (Acute) DEMETRA (acute kidney injury) (Acute) Pneumococcal pneumonia (Acute) SVT (supraventricular tachycardia) (Acute) 82-year-old female with pneumoperitoneum from perforated splenic flexure of the colon POD#9 s/p ex lap, L colon resection, end colostomy; septic shock-resolved, history of COPD, diabetes, tachycardia-resolved, leukocytosis 1. Positive nausea/occasional abdominal pain per patient. No hard stool from the colostomy. CT reveals its all in the transverse colon just before the colostomy. Digitized stoma also revealed hard stool. Mineral oil was placed in the at the stoma about a third of the container to help try and soften the stool. Will keep patient on TPN until she starts to have stool per colostomy. 2. Tachycardia-resolved, on amiodarone drip per cardiology 3. Leukocytosis?up to 16 from 15 on meropenem per ID. Continue to monitor 4. Creatinine elevated back to 1.65 we will continue to monitor. Aurora Young M.D. Pager: [phone] [facility] [address] [place] [address], [facility], [address] [place] [address] Office: [phone]
[2018-07-29 07:01] LABS: Bedside Glucose 145 mg/dL (70-110)
[2018-07-29] MEDS: Budesonide Respules 0.5 MG/2 ML AMPUL.NEB. INHALATION ×2 (07:12→20:00)
--- NOTE | 2018-07-29 08:41 | RAD_ITS ---
STUDY: X-RAY - ABDOMEN/PELVIS REASON FOR EXAM: Female, 82 years old. Nasogastric tube placement. TECHNIQUE: Single AP view of the abdomen / pelvis. COMPARISON: Comparison is made with prior study dated July 26, 2018. FINDINGS: An orogastric tube is seen. The tip is in the body of the stomach. There is an unremarkable bowel gas pattern. Bilateral hip replacement. RAD/Abdomen Single View (Portable) IMPRESSION: The tip of the orogastric tube is in the body of the stomach. Electronically Signed: Jourdan De La Fuente MD at 9:13 EDT Tel [phone], Service support ,
--- NOTE | 2018-07-29 09:22 | PCM.PN.CARD ---
Subjectve: Patient has denied any concerns of acute chest discomfort or difficulty breathing. The patient is now with an NG tube in place. Objective: Vital Signs Temp Pulse Resp BP Pulse Ox 97.8 F 84 18 126/75 H 96 07/29/18 03:25 07/29/18 08:39 07/29/18 07:12 07/29/18 03:25 07/29/18 07:12 Oxygen Flow Rate (L/min) 2 Oxygen Delivery Method Room Air Weight: 195 lb 15.855 oz Body Mass Index (BMI) 29.2 Intake and Output for Last 24 Hours 07/27/18 07/28/18 07/29/18 23:59 23:59 23:59 Intake Total 4148.7 / 4148.7 2793.3 / 2793.3 539 / 539 Output Total 750 / 750 845 / 845 325 / 325 Balance 3398.7 / 3398.7 1948.3 / 1948.3 214 / 214 General: Awake, Cooperative Neck: No JVD Lungs: - - No obvious rales or rhonchi Cardiovascular: Regular Rhythm, Premature Ectopic Beats, Normal S1, Normal S2 Abdomen: Hypoactive Bowel Sounds 07/29/18 05:10: WBC 16.1 H, RBC 2.73 L, Hgb 8.6 L, Hct 25.8 L, MCV 94.5, MCH 31.5, MCHC 33.3, RDW 16.4 H, RDW Differential 54.9 H, Plt Count 221, MPV 11.5, Immature Gran % (Auto) 1.100 H, Neut % (Auto) 83.1 H, Lymph % (Auto) 10.4 L, [place] % (Auto) 3.0, Eos % (Auto) 2.2, Baso % (Auto) 0.2, Absolute Neuts (auto) 13.3 H, Total Counted Not Reportable 07/29/18 05:10: Sodium 138, Potassium 5.1, Chloride 110 H, Carbon Dioxide 20.0 L, Anion Gap 8, BUN 67 H, Creatinine 1.62 H, Est GFR (MDRD) Af Amer 39 L, Est GFR (MDRD) Non-Af 32 L, BUN/Creatinine Ratio 41.4 H, Glucose 138 H, Calcium 8.0 L Rhythm: Sinus rhythm Medical Necessity - Tobacco Use Smoking Status: Never smoker Tobacco Use: Non-smoker Assessment/Plan 1. Supraventricular tachycardia The patient does not appear to have had recurrent PSVT since yesterday. She is continuing her beta-katty therapy and her antiarrhythmic therapy via her NG tube. However, if she is unable to continue oral medication then her medications may need to be altered back to an IV form as deemed appropriate. Again, over time, when she is improved from her noncardiovascular condition she may need to be considered for EP study for EPS/RFA. 2. Takotsubo syndrome The patient has a history of an underlying non-CAD related cardiomyopathy compatible with a Takotsubo syndrome lash apical ballooning interim. Over time her LV systolic function has improved. Her recent noninvasive studies would suggest preserved overall LV systolic function and no obvious evidence of myocardial ischemia to suggest the development of underlying CAD. Thus at the present time she will need to be followed, during the stressful event, for any obvious recurrence of the aforementioned syndrome. She may need, depending upon her clinical course, to be reevaluated with echocardiographic studies, etc. 3. CAD The patient has a history of LAD mild calcification as noted above. She was not described as having angiographically significant appearing CAD. Her recent pharmacologic stress nuclear imaging study would not suggest any obvious hemodynamically significant CAD as she had no obvious evidence of ongoing myocardial ischemia. Thus she should continue risk factor evaluation care as deemed appropriate when she is able. 4. Hyperlipidemia The patient should continue evaluation and medical management as deemed appropriate for her age when she is able. 5. Diabetes mellitus She will need to continue under the care of internal medicine for this. 6. COPD She is being evaluated by internal medicine and pulmonology. 7. Hypothyroidism Again she will need to continue under the care of internal medicine for this. If she remains on amiodarone she will need to have her thyroid functions followed and medications adjusted as deemed appropriate. 8. Colon perforation She is now status post surgical intervention. She continues to be followed by general surgery. She now has an NG tube in place. 9. Sepsis syndrome This is thought due to her underlying colon perforation. She continues care by internal medicine, general surgery, and infectious disease. 10. Acute renal insufficiency Her creatinine level was markedly elevated upon admission. Her renal function has waxed and waned. Her creatinine level is somewhat more elevated today than yesterday. This note was generated with [employer] software. It may contain incorrect words, spelling, and punctuation that were not noted in checking the note before signing.
--- NOTE | 2018-07-29 09:25 | PN.CARD_ITS ---
Subjectve: Patient has denied any concerns of acute chest discomfort or difficulty breathing. The patient is now with an NG tube in place. Objective: Vital Signs Temp Pulse Resp BP Pulse Ox 97.8 F 84 18 126/75 H 96 07/29/18 03:25 07/29/18 08:39 07/29/18 07:12 07/29/18 03:25 07/29/18 07:12 Oxygen Flow Rate (L/min) 2 Oxygen Delivery Method Room Air Weight: 195 lb 15.855 oz Body Mass Index (BMI) 29.2 Intake and Output for Last 24 Hours 07/27/18 07/28/18 07/29/18 23:59 23:59 23:59 Intake Total 4148.7 / 4148.7 2793.3 / 2793.3 539 / 539 Output Total 750 / 750 845 / 845 325 / 325 Balance 3398.7 / 3398.7 1948.3 / 1948.3 214 / 214 General: Awake, Cooperative Neck: No JVD Lungs: - - No obvious rales or rhonchi Cardiovascular: Regular Rhythm, Premature Ectopic Beats, Normal S1, Normal S2 Abdomen: Hypoactive Bowel Sounds 07/29/18 05:10: WBC 16.1 H, RBC 2.73 L, Hgb 8.6 L, Hct 25.8 L, MCV 94.5, MCH 31.5, MCHC 33.3, RDW 16.4 H, RDW Differential 54.9 H, Plt Count 221, MPV 11.5, Immature Gran % (Auto) 1.100 H, Neut % (Auto) 83.1 H, Lymph % (Auto) 10.4 L, [place] % (Auto) 3.0, Eos % (Auto) 2.2, Baso % (Auto) 0.2, Absolute Neuts (auto) 13.3 H, Total Counted Not Reportable 07/29/18 05:10: Sodium 138, Potassium 5.1, Chloride 110 H, Carbon Dioxide 20.0 L , Anion Gap 8, BUN 67 H, Creatinine 1.62 H, Est GFR (MDRD) Af Amer 39 L, Est GFR (MDRD) Non-Af 32 L, BUN/Creatinine Ratio 41.4 H, Glucose 138 H, Calcium 8.0 L Rhythm: Sinus rhythm Medical Necessity - Tobacco Use Smoking Status: Never smoker Tobacco Use: Non-smoker Assessment/Plan 1. Supraventricular tachycardia The patient does not appear to have had recurrent PSVT since yesterday. She is continuing her beta-katty therapy and her antiarrhythmic therapy via her NG tube. However, if she is unable to continue oral medication then her medications may need to be altered back to an IV form as deemed appropriate. Again, over time, when she is improved from her noncardiovascular condition she may need to be considered for EP study for EPS/RFA. 2. Takotsubo syndrome The patient has a history of an underlying non-CAD related cardiomyopathy c ompatible with a Takotsubo syndrome lash apical ballooning interim. Over time her LV systolic function has improved. Her recent noninvasive studies would suggest preserved overall LV systolic function and no obvious evidence of myocardial ischemia to suggest the development of underlying CAD. Thus at the present time she will need to be followed, during the stressful event, for any obvious recurrence of the aforementioned syndrome. She may need, depending upon her clinical course, to be reevaluated with echocardiographic studies, etc. 3. CAD The patient has a history of LAD mild calcification as noted above. She was not described as having angiographically significant appearing CAD. Her recent pharmacologic stress nuclear imaging study would not suggest any obvious hemodynamically significant CAD as she had no obvious evidence of ongoing myocardial ischemia. Thus she should continue risk factor evaluation care as deemed appropriate when she is able. 4. Hyperlipidemia The patient should continue evaluation and medical management as deemed appropriate for her age when she is able. 5. Diabetes mellitus She will need to continue under the care of internal medicine for this. 6. COPD She is being evaluated by internal medicine and pulmonology. 7. Hypothyroidism Again she will need to continue under the care of internal medicine for this. If she remains on amiodarone she will need to have her thyroid functions followed and medications adjusted as deemed appropriate. 8. Colon perforation She is now status post surgical intervention. She continues to be followed by general surgery. She now has an NG tube in place. 9. Sepsis syndrome This is thought due to her underlying colon perforation. She continues care by internal medicine, general surgery, and infectious disease. 10. Acute renal insufficiency Her creatinine level was markedly elevated upon admission. Her renal function has waxed and waned. Her creatinine level is somewhat more elevated today than yesterday. This note was generated with [employer] software. It may contain incorrect words, spelling, and punctuation that were not noted in checking the note before signing.
--- NOTE | 2018-07-29 09:55 | PCM.PN.HOSP ---
Patient Problems: Active and Suspected Problems (Last Reviewed 03/01/18 @ 13:10 by Victoria Fu) Large bowel perforation (Acute) Septic shock (Acute) Subjective: CT of the abdomen obtained on 07/28/2018 demonstrated Persistent infiltrate in the right lower lobe with a small pleural effusion. Was no evidence of intra-abdominal abscess. Patient fever appears to have resolved however not much bowel movement with regards to her colostomy general surgery subsequently recommended continuation of TPN Objective: GENERAL: Dyspneic at rest HEENT: Atraumatic moist oral mucosa EYES; Anicteric, Normal Conjuctiva NECK; supple, normal thyroid, no distended JVD. RESPIRATORY: Diminished to auscultation bilaterally, CARDIOVASCULAR: Regular S1 S2, no audible murmurs GI: Colostomy with formed stools, normoactive bowel sounds, : No Renal angle tenderness; EXTREMITIES: No edema, no clubbing, no cyanosis. MUSCULOSKELTAL: Joint Tenderness; no muscle waisting NEURO: Awake; no lateralizing signs. SKIN: No Rash PSYCH; Normal affect Vitals/I&O's: Vital Signs Temp Pulse Resp BP Pulse Ox 97.8 F 84 18 126/75 H 96 07/29/18 03:25 07/29/18 08:39 07/29/18 07:12 07/29/18 03:25 07/29/18 07:12 Oxygen Flow Rate (L/min) 2 Oxygen Delivery Method Room Air Weight: 88.9 kg Body Mass Index (BMI) 29.2 Intake and Output for Last 24 Hours 07/27/18 07/28/18 07/29/18 23:59 23:59 23:59 Intake Total 4148.7 / 4148.7 2793.3 / 2793.3 539 / 539 Output Total 750 / 750 845 / 845 325 / 325 Balance 3398.7 / 3398.7 1948.3 / 1948.3 214 / 214 Microbiology Past 72 Hours 07/23/18 15:20 Blood Culture (Wb) - Other Blood Culture - Final No growth in 5 days. 07/20/18 12:10 Wound Drainage - Other Gram Stain - Final 07/20/18 12:10 Wound Drainage - Other Wound Culture - Final Escherichia coli Acinetobacter spp 07/20/18 12:10 Wound Drainage - Other Anaerobic Culture - Final Bacteroides thetaiotaomicron Bacteroides caccae Anaerobic cocci Laboratory Results 07/28/18 12:19: POC Glucose 107 07/28/18 17:26: POC Glucose 109 07/28/18 23:51: POC Glucose 106 07/29/18 05:10: WBC 16.1 H, RBC 2.73 L, Hgb 8.6 L, Hct 25.8 L, MCV 94.5, MCH 31.5, MCHC 33.3, RDW 16.4 H, RDW Differential 54.9 H, Plt Count 221, MPV 11.5, Immature Gran % (Auto) 1.100 H, Neut % (Auto) 83.1 H, Lymph % (Auto) 10.4 L, [place] % (Auto) 3.0, Eos % (Auto) 2.2, Baso % (Auto) 0.2, Absolute Neuts (auto) 13.3 H, Absolute Lymphs (auto) 1.67, Total Counted Not Reportable, Differential Comment SCANNED, Toxic Granulation 1+ 07/29/18 05:10: Sodium 138, Potassium 5.1, Chloride 110 H, Carbon Dioxide 20.0 L, Anion Gap 8, BUN 67 H, Creatinine 1.62 H, Estim Creat Clear Calc 25.50, Est GFR (MDRD) Af Amer 39 L, Est GFR (MDRD) Non-Af 32 L, BUN/Creatinine Ratio 41.4 H, Glucose 138 H, Calcium 8.0 L 07/29/18 06:13: POC Glucose 145 H Current Medications Acetaminophen (Tylenol) 650 mg PO Q6H PRN PRN PRN Reason: Mild Pain (1-3)/Temp > 100.7 F Albuterol/Ipratropium (Duoneb) 3 ml INHALATION Q4H PRN PRN PRN Reason: SHORTNESS OF BREATH Amiodarone HCl (Cordarone) 200 mg PO BID [facility] Last Admin: 07/28/18 21:51 Dose: 200 mg Budesonide (Pulmicort Aerosol) 0.5 mg INHALATION BID.RT [facility] Last Admin: 07/29/18 07:12 Dose: 0.5 mg Dextrose (D50w Syringe) 0 gm IV X1 PRN; Protocol PRN Reason: Hypoglycemia Docusate Sodium (Colace) 100 mg PO DAILY [facility] Last Admin: 07/28/18 12:23 Dose: 100 mg Glucagon () 1 mg IM .X1 PRN PRN Reason: Hypoglycemia Heparin Sodium (Porcine) (Heparin Na) 5,000 unit SC BID [facility] Last Admin: 07/28/18 21:52 Dose: 5,000 unit Sodium Chloride () 250 mls @ 15 mls/hr IV .[id number] PRN PRN Reason: SALINE FLUSH Last Admin: 07/21/18 09:47 Dose: 15 mls/hr Sodium Chloride () 250 mls @ 15 mls/hr IV .[id number] PRN PRN Reason: SALINE FLUSH Meropenem 500 mg/ Sodium (Chloride) 60 mls @ 100 mls/hr IV Q8 [facility] Last Admin: 07/29/18 06:02 Dose: 100 mls/hr Multivitamins 5 ml/ Chromium/Copper/Manganese/Seleni/Zn 0.5 ml/ Folic Acid 0.5 mg/Famotidine 10 mg/ Potassium Chloride 40 meq/ Insulin Human Lispro 50 unit/ Amino Acids 1,027.1 mls @ 84 mls/hr IV .[id number] [facility]; Protocol Stop: 07/29/18 16:27 Last Admin: 07/29/18 05:55 Dose: 84 mls/hr Multivitamins 5 ml/ Chromium/Copper/Manganese/Seleni/Zn 0.5 ml/ Folic Acid 0.5 mg/Famotidine 10 mg/ Sodium Acetate 20 meq/ Insulin Human Lispro 60 unit/ Amino Acids 1,017.2 mls @ 84 mls/hr IV .[id number] [facility]; Protocol Stop: 07/30/18 16:13 Insulin Glargine (Lantus (Bkc)) 10 units SC [facility] Last Admin: 07/29/18 06:15 Dose: 10 units Insulin Human Lispro (Humalog Kwikpen (Bkc)) 0 unit SC Q6 [facility]; Protocol Last Admin: 07/29/18 06:14 Dose: Not Given Magnesium Hydroxide (Milk Of Magnesia) 30 ml PO DAILY PRN PRN PRN Reason: Constipation Metoprolol Tartrate (Lopressor (Beta Jose)) 5 mg IV Q6 PRN PRN Reason: TO CONTROL HEART RATE Last Admin: 07/21/18 19:35 Dose: 2.5 mg Metoprolol Tartrate (Lopressor (Beta Jose)) 25 mg PO BID [facility] Last Admin: 07/28/18 21:52 Dose: Not Given Morphine Sulfate () 1 mg IV Q4H PRN PRN PRN Reason: SEVERE PAIN (6-10/10) Ondansetron HCl (Zofran) 4 mg IV Q8H PRN PRN PRN Reason: NAUSEA Last Admin: 07/29/18 06:22 Dose: 4 mg Sodium Chloride () 10 - 40 ml IV UD PRN PRN Reason: MULTILUMEN/HICMAN CATH FLUSH Last Admin: 07/28/18 09:03 Dose: 10 ml Sodium Chloride/Electrolytes (Nulytely) 1,000 ml PO X1 ONE Stop: 07/29/18 11:31 Medical Necessity - Tobacco Use Smoking Status: Never smoker Tobacco Use: Non-smoker Assessment/Plan All Active Problems (Last Reviewed 03/01/18 @ 13:10 by Victoria Fu) Large bowel perforation (Acute) Septic shock (Acute) DEMETRA (acute kidney injury) (Acute) Pneumococcal pneumonia (Acute) SVT (supraventricular tachycardia) (Acute) Patient is an 82-year-old lady with multiple comorbidities who was admitted with episodes of confusion and assessment of septic shock secondary to acute peritonitis as a result of perforated descending colon made. Admitted to intensive care unit patient underwent exploratory laparotomy with colon resection and end colostomy placed. 1. Septic shock secondary to peritonitis as a result of perforated descending colon near the splenic flexure; resolved. Patient however has experienced increasing leukocytosis. Consult was therefore placed to infectious disease blood cultures and CT of the abdomen and pelvis ordered. Case discussed with Dr Dr Hannah 2. Acute perforated descending colon near the splenic flexure patient underwent Exploratory laparotomy, mobilization of the splenic flexure, left colon resection, end colostomy on 07/20/[address] Hannah 3. Post Op/ICU delirium resolved with nonpharmacological treatment 4. Diabetes mellitus type 2 patient's oral hypoglycemic agents held on admission. Managed with long-acting insulin as well as Accu-Cheks every 4 hours with lispro coverage 5. Severe protein calorie malnutrition as a result of above patient is on nutritional supplementation with TPN 4. Acute kidney injury secondary to ATN from septic shock kidney function appears to be improving 6. Hypernatremia; adjusted IV fluids 7. Acute hypoxic respiratory failure patient was electively intubated for surgery and successfully weaned off 8. COPD currently not in exacerbation 9. Hypokalemia corrected per protocol 10. Hypomagnesemia corrected per protocol 11. History of PSVT currently stable 12. Hypertension-blood pressure controlled, home medications continued with dose adjustment as needed 13. Hypothyroidism-patient is on levothyroxine home dose continued 14. DVT prophylaxis SC heparin 15. Physical deconditioning PT OT requested. 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 Sludge is seen within the gallbladder lumen and possible tiny gallstones. A colostomy is seen in the left mid abdomen. Increased markings in the mesentery most likely secondary to prior surgery. Thickened small bowel loops in the left mid abdomen with surrounding increased markings in the peritoneal fat. There is no evidence of free air at this time. Electronically Signed: Jourdan De La Fuente MD at 13:30 EDT Tel [phone], Service support , KUB X-Ray 07/29/18 08:41 IMPRESSION: The tip of the orogastric tube is in the body of the stomach. Electronically Signed: Jourdan De La Fuente MD at 9:13 EDT Tel [phone], Service support , Code Visit Inpatient E&M: 13316 Subs Hosp L2
--- NOTE | 2018-07-29 10:22 | PCM.PN.ID ---
Patient Problems: Active and Suspected Problems (Last Reviewed 03/01/18 @ 13:10 by Victoria Fu) Large bowel perforation (Acute) Septic shock (Acute) Subjective: Sleeping this AM, family at bedside. No fever. - Physical Exam General: Cooperative, No apparent distress Lungs: Rhonchi, Wheezes Cardiovascular: Regular Rhythm, Tachycardic Abdomen: Soft, Non Tender, Non-Distended Skin: No rashes Vital Signs Temp Pulse Resp BP Pulse Ox 97.6 F L 81 17 148/65 H 99 07/29/18 09:25 07/29/18 09:25 07/29/18 09:25 07/29/18 09:25 07/29/18 09:25 Oxygen Flow Rate (L/min) 2 Oxygen Delivery Method Room Air Weight: 88.9 kg Body Mass Index (BMI) 29.2 Intake and Output for Last 24 Hours 07/27/18 07/28/18 07/29/18 23:59 23:59 23:59 Intake Total 4148.7 / 4148.7 2793.3 / 2793.3 539 / 539 Output Total 750 / 750 845 / 845 325 / 325 Balance 3398.7 / 3398.7 1948.3 / 1948.3 214 / 214 Microbiology Past 72 Hours 07/23/18 15:20 Blood Culture - Final Blood Culture (Wb) - Other No growth in 5 days. 07/20/18 12:10 Gram Stain - Final Wound Drainage - Other Wound Culture - Final Escherichia coli Acinetobacter spp Anaerobic Culture - Final Bacteroides thetaiotaomicron Bacteroides caccae Anaerobic cocci Laboratory Tests Past 24 Hrs 07/29/18 07/29/18 05:10 05:10 WBC 16.1 H RBC 2.73 L Hgb 8.6 L Hct 25.8 L MCV 94.5 MCH 31.5 MCHC 33.3 RDW 16.4 H RDW Differential 54.9 H Plt Count 221 MPV 11.5 Immature Gran % (Auto) 1.100 H Neut % (Auto) 83.1 H Lymph % (Auto) 10.4 L [place] % (Auto) 3.0 Eos % (Auto) 2.2 Baso % (Auto) 0.2 Absolute Neuts (auto) 13.3 H Absolute Lymphs (auto) 1.67 Total Counted Not Reportable Differential Comment SCANNED Toxic Granulation 1+ Sodium 138 Potassium 5.1 Chloride 110 H Carbon Dioxide 20.0 L Anion Gap 8 BUN 67 H Creatinine 1.62 H Estim Creat Clear Calc 25.50 Est GFR (MDRD) Af Amer 39 L Est GFR (MDRD) Non-Af 32 L BUN/Creatinine Ratio 41.4 H Glucose 138 H Calcium 8.0 L POC Glucose 07/29/18 07/28/18 07/28/18 06:13 23:51 17:26 POC Glucose 145 H 106 109 07/28/18 12:19 POC Glucose 107 Medical Necessity - Tobacco Use Smoking Status: Never smoker Tobacco Use: Non-smoker Route of nutrition/ use of supplements: [] Nutritional Intake: [] IV Site: [] Benitez Catheter: [] - Assessment/Plan Antibiotics: [] Assessment/Plan: [] Active and Suspected Problems (Last Reviewed 03/01/18 @ 13:10 by Victoria uF) Large bowel perforation (Acute) Septic shock (Acute) Septic shock improved. New leukocytosis. Overall no new complaints, but some lung changes on exam and xray. Single bcx with clostridium and prior surg cx with ecoli, Acinetobacter, and multiple anaerobes. Her acinetobacter was R to unasyn. Cont meropenem. CT showed no abscess. Suspect most likely explanation of persistent wbc is hard stool and little ostomy output. Covering for pneumonia as well. Will follow
[2018-07-29] MEDS: Amiodarone 200 MG Tablet PO ×2 (11:27→22:29)
[2018-07-29] MEDS: Metoprolol Tartrate 25 MG Tablet PO ×2 (11:27→22:28)
[2018-07-29] MEDS: Heparin Injection (Vial) 5,000 UNIT/ML VIAL 5000 UNIT SC ×2 (11:32→22:29)
[2018-07-29] MEDS: Insulin Lispro 100 UNIT/ML INSULN.PEN SC ×2 (12:09→18:28)
[2018-07-29 12:15] LABS: Bedside Glucose 153 mg/dL (70-110)
--- NOTE | 2018-07-29 12:28 | NURSING ---
Approx 400 cc's Golytely given slowly through the stoma with a 14F red rubber catheter. there was some soft brown stool that came out around the catheter. not all the Golytely came out, so hoping it will soften the stool some and more of the hard stool will come out. new appliance placed. will monitor and may try more Golytely later today. called and discussed with Dr Young.
--- NOTE | 2018-07-29 14:33 | PCM.PN.BLA ---
Progress Note Patient does have stool in her bag after doing the soapsuds/GoLYTELY via colostomy. Janeen will do the GoLYTELY irrigation again today and also plan for in the morning. Was considering to get her into endoscopy to do a colonoscopy for irrigation however she does have a large amount of air in the right colon my concern would be perforation if I were to put in more air and was not able to get it out. If the GoLYTELY irrigations continue to have results will continue that throughout the weekend. Also discussed with patient's daughter.
--- NOTE | 2018-07-29 15:27 | NURSING ---
Approx 240 cc's Golytely given slowly through the stoma with a 14F red rubber catheter. there was a hard stool noted in the appliance approx the size of a half dollar. could digitally feel another hard stool. when giving the Golytely, another portion of hard stool came out approx the size of a quarter. pt tolerated the procedure well. will monitor the output. hoping the Golytely will continue to soften and push out the stool. plan to give more Golytely in the am per Dr Young's request.
[2018-07-29 18:41] LABS: Bedside Glucose 198 mg/dL (70-110)
[2018-07-30] VITALS (14 sets, daily range): BP systolic 104–136; BP diastolic 38–67; PULSE 68–78; RESP 16–20; TEMP 36.4–36.9; O2SAT 96–100
[2018-07-30] MEDS: Insulin Lispro 100 UNIT/ML INSULN.PEN SC ×5 (00:30→23:17)
[2018-07-30 00:41] LABS: Bedside Glucose 278 mg/dL (70-110)
[2018-07-30 06:01] LABS: Bedside Glucose 260 mg/dL (70-110)
[2018-07-30 06:38] LABS: Absolute Lymphocyte Count 1.24 X10^3/ul (0.83-4.51); Absolute Neutrophil Count 11.2 X10^3/uL (2.0-7.7); Basophil# 0.03 X10^3/uL; Basophil% 0.2 % (0-1); Eosinophil# 0.25 X10^3/uL; Eosinophils% 1.8 % (0-5); Hematocrit 24.3 % (37-47); Lymphocyte # 1.24 X10^3/ul (4.0); Lymphocyte % 8.9 % (19-41); Mean Corp Hgb Conc 32.9 g/gl (32-36); Mean Corpuscular Volume 94.2 fL (81-99); Mean Platelet Vol. 11.2 fl (6.2-12.0); Monocyte# 0.95 X10^3/uL; Monocyte% 6.8 % (0-10); Neutrophil # 11.23 X10^3/uL (2.7-7.7); Platelet Count 240 K/mm3 (150-450); RBC Distribution Width CV 16.3 % (11.6-14.6); Red Blood Count 2.58 M/mm3 (4.2-5.4); White Blood Count 13.9 K/mm3 (4.4-11.0)
[2018-07-30 06:39] LABS: POSITIVE COUNT NO; POSITIVE DIFFERENTIAL NO; POSITIVE MORPHOLOGY NO
[2018-07-30 06:47] LABS: Anion Gap 8 (5-15); BUN 60 mg/dL (7-18); BUN/Creat Ratio 42.3 RATIO (10-20); Calcium,Total 7.5 mg/dL (8.5-10.1); Chloride 109 mmol/L (98-107); Creatinine, Serum 1.42 mg/dL (0.55-1.02); EST Glomerular Filtration Rate 38 mL/min (>60); Est Glom Filt Rate - Afr Amer 46 mL/min (>60); Estimated Creatinine Clearance 29.09 ml/min; Glucose 235 mg/dL (74-106); Magnesium 1.4 mg/dL (1.6-2.6); Phosphorus 1.9 mg/dL (2.5-4.9); Potassium 4.1 mmol/L (3.5-5.1); Sodium Level 138 mmol/L (136-145)
[2018-07-30] MEDS: Budesonide Respules 0.5 MG/2 ML AMPUL.NEB. INHALATION (07:15)
--- NOTE | 2018-07-30 08:09 | PCM.PN.SRG ---
Patient Problems: Active and Suspected Problems (Last Reviewed 03/01/18 @ 13:10 by Victoria Fu) Large bowel perforation (Acute) Septic shock (Acute) Subjective: NG output 800 yesterday, +stool per stoma with golytely irrigation - Physical Exam General: Alert, Cooperative, No apparent distress Abdomen: Soft, Distended - mild, Tender - mild, no PS, - - incision c/d/i w yuriy, colostomy mild edema/pink, -liquid stool this AM Vital Signs Temp Pulse Resp BP Pulse Ox 97.5 F L 72 20 H 136/67 H 96 07/30/18 02:30 07/30/18 07:38 07/30/18 02:30 07/30/18 02:30 07/30/18 02:30 Oxygen Flow Rate (L/min) 2 Oxygen Delivery Method Room Air Weight: 199 lb 1.239 oz Body Mass Index (BMI) 29.2 Intake and Output for Last 24 Hours 07/28/18 07/29/18 07/30/18 23:59 23:59 23:59 Intake Total 2793.3 / 2793.3 2649 / 2649 440 / 440 Output Total 845 / 845 2750 / 2750 750 / 750 Balance 1948.3 / 1948.3 -101 / -101 -310 / -310 Microbiology Past 72 Hours 07/23/18 15:20 Blood Culture - Final Blood Culture (Wb) - Other No growth in 5 days. 07/20/18 12:10 Gram Stain - Final Wound Drainage - Other Wound Culture - Final Escherichia coli Acinetobacter spp Anaerobic Culture - Final Bacteroides thetaiotaomicron Bacteroides caccae Anaerobic cocci Laboratory Tests Past 24 Hrs 07/30/18 07/30/18 06:00 06:00 WBC 13.9 H RBC 2.58 L Hgb 8.0 L Hct 24.3 L MCV 94.2 MCH 31.0 MCHC 32.9 RDW 16.3 H RDW Differential 56.0 H Plt Count 240 MPV 11.2 Immature Gran % (Auto) 1.300 H Neut % (Auto) 81.0 H Lymph % (Auto) 8.9 L [place] % (Auto) 6.8 Eos % (Auto) 1.8 Baso % (Auto) 0.2 Absolute Neuts (auto) 11.2 H Absolute Lymphs (auto) 1.24 Total Counted Not Reportable Sodium 138 Potassium 4.1 Chloride 109 H Carbon Dioxide 21.0 Anion Gap 8 BUN 60 H Creatinine 1.42 H Estim Creat Clear Calc 29.09 Est GFR (MDRD) Af Amer 46 L Est GFR (MDRD) Non-Af 38 L BUN/Creatinine Ratio 42.3 H Glucose 235 H Calcium 7.5 L Phosphorus 1.9 L Magnesium 1.4 L POC Glucose 07/30/18 07/30/18 07/29/18 05:37 00:25 18:24 POC Glucose 260 H 278 H 198 H 07/29/18 12:07 POC Glucose 153 H Medical Necessity - Tobacco Use Smoking Status: Never smoker Tobacco Use: Non-smoker Assessment/Plan All Active Problems (Last Reviewed 03/01/18 @ 13:10 by Victoria Fu) Large bowel perforation (Acute) Septic shock (Acute) DEMETRA (acute kidney injury) (Acute) Pneumococcal pneumonia (Acute) SVT (supraventricular tachycardia) (Acute) 82-year-old female with pneumoperitoneum from perforated splenic flexure of the colon POD#10 s/p ex lap, L colon resection, end colostomy; septic shock-resolved, history of COPD, diabetes, tachycardia-resolved, leukocytosis 1. continue NG/TPN, will continue Golytely irrigation of stoma 2. Tachycardia-resolved, on amiodarone per cardiology 3. Leukocytosis?improving on meropenem per ID. Continue to monitor 4. Creatinine improving. Aurora Young M.D. Pager: [phone] [facility] [address] [place] [address], [facility], [address] [place] [address] Office: [phone]
--- NOTE | 2018-07-30 09:17 | CASEMGMT ---
Patient will be here through the weekend per Dr Lewis. He does not anticipate patient being d/c on TPN. SW called Stella at [facility] and let her know patient will be here through the weekend. Plan: [facility] when medically ready. 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
--- NOTE | 2018-07-30 09:54 | PCM.PN.HOSP ---
Patient Problems: Active and Suspected Problems (Last Reviewed 03/01/18 @ 13:10 by Victoria Fu) Large bowel perforation (Acute) Septic shock (Acute) Subjective: An NG tube was placed after patient developed significant nausea and apparently 600 mL of gastric contents aspirated. Patient also had irrigation of the stoma with GoLYTELY with some fecal material. Magnesium 1.4 this a.m. Correction initiated. Objective: GENERAL: Dyspneic at rest HEENT: Atraumatic moist oral mucosa EYES; Anicteric, Normal Conjuctiva NECK; supple, normal thyroid, no distended JVD. RESPIRATORY: Diminished to auscultation bilaterally, CARDIOVASCULAR: Regular S1 S2, no audible murmurs GI: Colostomy with formed stools, normoactive bowel sounds, : No Renal angle tenderness; EXTREMITIES: No edema, no clubbing, no cyanosis. MUSCULOSKELTAL: Joint Tenderness; no muscle waisting NEURO: Awake; no lateralizing signs. SKIN: No Rash PSYCH; Normal affect Vitals/I&O's: Vital Signs Temp Pulse Resp BP Pulse Ox 97.5 F L 72 16 136/67 H 100 07/30/18 02:30 07/30/18 07:38 07/30/18 07:15 07/30/18 02:30 07/30/18 07:15 Oxygen Flow Rate (L/min) 2 Oxygen Delivery Method Room Air Weight: 90.3 kg Body Mass Index (BMI) 29.2 Intake and Output for Last 24 Hours 07/28/18 07/29/18 07/30/18 23:59 23:59 23:59 Intake Total 2793.3 / 2793.3 2649 / 2649 440 / 440 Output Total 845 / 845 2750 / 2750 750 / 750 Balance 1948.3 / 1948.3 -101 / -101 -310 / -310 Microbiology Past 72 Hours 07/23/18 15:20 Blood Culture (Wb) - Other Blood Culture - Final No growth in 5 days. 07/20/18 12:10 Wound Drainage - Other Gram Stain - Final 07/20/18 12:10 Wound Drainage - Other Wound Culture - Final Escherichia coli Acinetobacter spp 07/20/18 12:10 Wound Drainage - Other Anaerobic Culture - Final Bacteroides thetaiotaomicron Bacteroides caccae Anaerobic cocci Laboratory Results 07/29/18 12:07: POC Glucose 153 H 07/29/18 18:24: POC Glucose 198 H 07/30/18 00:25: POC Glucose 278 H 07/30/18 05:37: POC Glucose 260 H 07/30/18 06:00: Sodium 138, Potassium 4.1, Chloride 109 H, Carbon Dioxide 21.0, Anion Gap 8, BUN 60 H, Creatinine 1.42 H, Estim Creat Clear Calc 29.09, Est GFR (MDRD) Af Amer 46 L, Est GFR (MDRD) Non-Af 38 L, BUN/Creatinine Ratio 42.3 H, Glucose 235 H, Calcium 7.5 L, Phosphorus 1.9 L, Magnesium 1.4 L 07/30/18 06:00: WBC 13.9 H, RBC 2.58 L, Hgb 8.0 L, Hct 24.3 L, MCV 94.2, MCH 31.0, MCHC 32.9, RDW 16.3 H, RDW Differential 56.0 H, Plt Count 240, MPV 11.2, Immature Gran % (Auto) 1.300 H, Neut % (Auto) 81.0 H, Lymph % (Auto) 8.9 L, [place] % (Auto) 6.8, Eos % (Auto) 1.8, Baso % (Auto) 0.2, Absolute Neuts (auto) 11.2 H, Absolute Lymphs (auto) 1.24, Total Counted Not Reportable Current Medications Acetaminophen (Tylenol) 650 mg PO Q6H PRN PRN PRN Reason: Mild Pain (1-3)/Temp > 100.7 F Albuterol/Ipratropium (Duoneb) 3 ml INHALATION Q4H PRN PRN PRN Reason: SHORTNESS OF BREATH Amiodarone HCl (Cordarone) 200 mg PO BID [facility] Last Admin: 07/29/18 22:29 Dose: 200 mg Budesonide (Pulmicort Aerosol) 0.5 mg INHALATION BID.RT [facility] Last Admin: 07/30/18 07:15 Dose: 0.5 mg Dextrose (D50w Syringe) 0 gm IV X1 PRN; Protocol PRN Reason: Hypoglycemia Docusate Sodium (Colace Syrup) 100 mg PO DAILY [facility] Glucagon () 1 mg IM .X1 PRN PRN Reason: Hypoglycemia Heparin Sodium (Porcine) (Heparin Na) 5,000 unit SC BID [facility] Last Admin: 07/29/18 22:29 Dose: 5,000 unit Sodium Chloride () 250 mls @ 15 mls/hr IV .[id number] PRN PRN Reason: SALINE FLUSH Last Admin: 07/21/18 09:47 Dose: 15 mls/hr Sodium Chloride () 250 mls @ 15 mls/hr IV .[id number] PRN PRN Reason: SALINE FLUSH Meropenem 500 mg/ Sodium (Chloride) 60 mls @ 100 mls/hr IV Q8 [facility] Last Admin: 07/30/18 05:46 Dose: 100 mls/hr Multivitamins 5 ml/ Chromium/Copper/Manganese/Seleni/Zn 0.5 ml/ Folic Acid 0.5 mg/Famotidine 10 mg/ Sodium Acetate 20 meq/ Insulin Human Lispro 60 unit/ Amino Acids 1,017.2 mls @ 84 mls/hr IV .[id number] [facility]; Protocol Stop: 07/30/18 16:13 Last Admin: 07/30/18 05:41 Dose: 84 mls/hr Magnesium Sulfate (4 Gm/100 Ml) 4 gm in 100 mls @ 25 mls/hr IV X1 ONE Stop: 07/30/18 12:59 Insulin Glargine (Lantus (Bkc)) 10 units SC [facility] Last Admin: 07/30/18 05:48 Dose: 10 units Insulin Human Lispro (Humalog Kwikpen (Bkc)) 0 unit SC Q6 [facility]; Protocol Last Admin: 07/30/18 05:49 Dose: 9 u Magnesium Hydroxide (Milk Of Magnesia) 30 ml PO DAILY PRN PRN PRN Reason: Constipation Metoprolol Tartrate (Lopressor (Beta Jose)) 5 mg IV Q6 PRN PRN Reason: TO CONTROL HEART RATE Last Admin: 07/21/18 19:35 Dose: 2.5 mg Metoprolol Tartrate (Lopressor (Beta Jose)) 25 mg PO BID [facility] Last Admin: 07/29/18 22:28 Dose: 25 mg Morphine Sulfate () 1 mg IV Q4H PRN PRN PRN Reason: SEVERE PAIN (6-10/10) Ondansetron HCl (Zofran) 4 mg IV Q8H PRN PRN PRN Reason: NAUSEA Last Admin: 07/29/18 06:22 Dose: 4 mg Sodium Chloride () 10 - 40 ml IV UD PRN PRN Reason: MULTILUMEN/HICMAN CATH FLUSH Last Admin: 07/30/18 06:12 Dose: 20 ml Medical Necessity - Tobacco Use Smoking Status: Never smoker Tobacco Use: Non-smoker Assessment/Plan All Active Problems (Last Reviewed 03/01/18 @ 13:10 by Victoria Fu) Large bowel perforation (Acute) Septic shock (Acute) DEMETRA (acute kidney injury) (Acute) Pneumococcal pneumonia (Acute) SVT (supraventricular tachycardia) (Acute) Patient is an 82-year-old lady with multiple comorbidities who was admitted with episodes of confusion and assessment of septic shock secondary to acute peritonitis as a result of perforated descending colon made. Admitted to intensive care unit patient underwent exploratory laparotomy with colon resection and end colostomy placed. 1. Septic shock secondary to peritonitis as a result of perforated descending colon near the splenic flexure; resolved. Patient however has experienced increasing leukocytosis. Consult was therefore placed to infectious disease blood cultures and CT of the abdomen and pelvis ordered. Case discussed with Dr Dr Hannah 2. Acute perforated descending colon near the splenic flexure patient underwent Exploratory laparotomy, mobilization of the splenic flexure, left colon resection, end colostomy on 07/20/[address] Hannah 3. Post Op/ICU delirium resolved with nonpharmacological treatment 4. Diabetes mellitus type 2 patient's oral hypoglycemic agents held on admission. Managed with long-acting insulin as well as Accu-Cheks every 4 hours with lispro coverage 5. Severe protein calorie malnutrition as a result of above patient is on nutritional supplementation with TPN 4. Acute kidney injury secondary to ATN from septic shock kidney function appears to be improving 6. Hypernatremia; adjusted IV fluids 7. Acute hypoxic respiratory failure patient was electively intubated for surgery and successfully weaned off 8. COPD currently not in exacerbation 9. Hypokalemia corrected per protocol 10. Hypomagnesemia corrected per protocol 11. History of PSVT currently stable 12. Hypertension-blood pressure controlled, home medications continued with dose adjustment as needed 13. Hypothyroidism-patient is on levothyroxine home dose continued 14. DVT prophylaxis SC heparin 15. Physical deconditioning PT OT requested. family services assistant involved in disposition CODE STATUS DNR CCA Clinical Impression(s) from Imaging Studies Abdomen CT 07/28/18 07:35 IMPRESSION: Persistent infiltrate in the right lower lobe with a small pleural effusion. Sludge is seen within the gallbladder lumen and possible tiny gallstones. A colostomy is seen in the left mid abdomen. Increased markings in the mesentery most likely secondary to prior surgery. Thickened small bowel loops in the left mid abdomen with surrounding increased markings in the peritoneal fat. There is no evidence of free air at this time. Electronically Signed: Jourdan De La Fuente MD at 13:30 EDT Tel [phone], Service support , KUB X-Ray 07/29/18 08:41 IMPRESSION: The tip of the orogastric tube is in the body of the stomach. Electronically Signed: Jourdan De La Fuente MD at 9:13 EDT Tel [phone], Service support , Code Visit Inpatient E&M: 11054 Subs Hosp L3
[2018-07-30] MEDS: Amiodarone 200 MG Tablet PO ×2 (10:47→22:01)
[2018-07-30] MEDS: Metoprolol Tartrate 25 MG Tablet PO ×2 (10:47→22:01)
[2018-07-30] MEDS: Docusate Sodium 100 MG/10 ML UDC PO (10:49)
[2018-07-30] MEDS: Heparin Injection (Vial) 5,000 UNIT/ML VIAL 5000 UNIT SC ×2 (10:49→22:01)
--- NOTE | 2018-07-30 10:49 | NURSING ---
Had been in this am around [address] Young. there is still some hard stool noted in the bowel. gave approx 240 cc's Golytely slowly through the stoma. one small hard stool out and a moderate amount of brown unformed stool. new applied placed. will continue with more irrigation later today. according to CT scan, patient still has a moderate amount of formed stool in transverse colon.
--- NOTE | 2018-07-30 11:44 | NURSING ---
Irrigated stoma again with approx 240 cc's Golytely. 3 small hard stools out in appliance. could still feel some hard stool. more soft brown stool out after irrigation. daughter present at bedside. plan to irrigate again this afternoon. pt tolerated well.
[2018-07-30 12:05] LABS: Bedside Glucose 289 mg/dL (70-110)
--- NOTE | 2018-07-30 14:28 | PN.ID_ITS ---
Patient Problems: Active and Suspected Problems (Last Reviewed 03/01/18 @ 13:10 by Victoria Fu) Large bowel perforation (Acute) Septic shock (Acute) Subjective: Less nausea now with NG on suction. Some cough but no sputum can come up. No fever. Denies abd pain. - Physical Exam General: Alert, Cooperative, No apparent distress Lungs: Rhonchi - scattered Cardiovascular: Regular rate, Regular Rhythm Abdomen: Soft, Non Tender, Non-Distended Skin: No rashes Vital Signs Temp Pulse Resp BP Pulse Ox 97.7 F L 70 20 H 116/49 L 98 07/30/18 13:50 07/30/18 13:50 07/30/18 13:50 07/30/18 13:50 07/30/18 13:50 Oxygen Flow Rate (L/min) 2 Oxygen Delivery Method Room Air Weight: 90.3 kg Body Mass Index (BMI) 29.2 Intake and Output for Last 24 Hours 07/28/18 07/29/18 07/30/18 23:59 23:59 23:59 Intake Total 2793.3 / 2793.3 2649 / 2649 1302 / 1302 Output Total 845 / 845 2750 / 2750 1350 / 1350 Balance 1948.3 / 1948.3 -101 / -101 -48 / -48 Microbiology Past 72 Hours 07/28/18 12:00 Blood Culture - Preliminary Blood Culture (Wb) - Central Line No growth in 48 hours. 07/23/18 15:20 Blood Culture - Final Blood Culture (Wb) - Other No growth in 5 days. 07/20/18 12:10 Gram Stain - Final Wound Drainage - Other Wound Culture - Final Escherichia coli Acinetobacter spp Anaerobic Culture - Final Bacteroides thetaiotaomicron Bacteroides caccae Anaerobic cocci Laboratory Tests Past 24 Hrs 07/30/18 07/30/18 06:00 06:00 WBC 13.9 H RBC 2.58 L Hgb 8.0 L Hct 24.3 L MCV 94.2 MCH 31.0 MCHC 32.9 RDW 16.3 H RDW Differential 56.0 H Plt Count 240 MPV 11.2 Immature Gran % (Auto) 1.300 H Neut % (Auto) 81.0 H Lymph % (Auto) 8.9 L [place] % (Auto) 6.8 Eos % (Auto) 1.8 Baso % (Auto) 0.2 Absolute Neuts (auto) 11.2 H Absolute Lymphs (auto) 1.24 Total Counted Not Reportable Sodium 138 Potassium 4.1 Chloride 109 H Carbon Dioxide 21.0 Anion Gap 8 BUN 60 H Creatinine 1.42 H Estim Creat Clear Calc 29.09 Est GFR (MDRD) Af Amer 46 L Est GFR (MDRD) Non-Af 38 L BUN/Creatinine Ratio 42.3 H Glucose 235 H Calcium 7.5 L Phosphorus 1.9 L Magnesium 1.4 L POC Glucose 07/30/18 07/30/18 07/30/18 11:56 05:37 00:25 POC Glucose 289 H 260 H 278 H 07/29/18 18:24 POC Glucose 198 H Medical Necessity - Tobacco Use Smoking Status: Never smoker Tobacco Use: Non-smoker Route of nutrition/ use of supplements: [] Nutritional Intake: [] IV Site: [] Benitez Catheter: [] - Assessment/Plan Antibiotics: [] Assessment/Plan: [] Active and Suspected Problems (Last Reviewed 03/01/18 @ 13:10 by Victoria Fu) Large bowel perforation (Acute) Septic shock (Acute) Septic shock improved. New leukocytosis. Overall no new complaints, but some lung changes on exam and xray. Single bcx with clostridium and prior surg cx with ecoli, Acinetobacter, and multiple anaerobes. Her acinetobacter was R to unasyn. Cont meropenem. CT showed no abscess. Suspect most likely explanation of persistent wbc is hard stool and little ostomy output. Covering for pneumonia as well. Wbc slightly better today. Will follow
--- NOTE | 2018-07-30 14:57 | NURSING ---
There were approx 3 more small chunks of stool noted in the ostomy appliance. irrigated stoma again with approx 360 cc's Golytely. was able to get a couple more small pieces out and a moderate amount of unformed brown stool. can still feel some hard stool. will continue to monitor.
[2018-07-30] MEDS: Fat Emulsions 20% 500 ML IV (17:22)
[2018-07-30] MEDS: Na Biphos/Potassium Phosphate PACKET 1 PACKET GT ×2 (17:22→22:01)
[2018-07-30 17:55] LABS: Bedside Glucose 258 mg/dL (70-110)
[2018-07-30 23:20] LABS: Bedside Glucose 229 mg/dL (70-110)
[2018-07-31] VITALS (17 sets, daily range): BP systolic 100–123; BP diastolic 37–53; PULSE 66–78; RESP 16–30; TEMP 36.2–36.6; O2SAT 96–100
[2018-07-31] MEDS: Na Biphos/Potassium Phosphate PACKET 1 PACKET GT ×3 (05:03→22:39)
[2018-07-31] MEDS: Insulin Lispro 100 UNIT/ML INSULN.PEN SC (05:04)
[2018-07-31 05:09] LABS: Hematocrit 22.8 % (37-47); Hemoglobin 7.7 g/dl (12.0-15.0); Mean Corp Hgb Conc 33.8 g/gl (32-36); Mean Corpuscular Hgb 32.4 pg (27.0-32.0); Mean Corpuscular Volume 95.8 fL (81-99); Mean Platelet Vol. 11.1 fl (6.2-12.0); Platelet Count 281 K/mm3 (150-450); RBC Distribution Width SD 52.2 fl (35.1-43.9); Red Blood Count 2.38 M/mm3 (4.2-5.4); White Blood Count 15.4 K/mm3 (4.4-11.0)
[2018-07-31 05:13] LABS: Anion Gap 10 (5-15); BUN 57 mg/dL (7-18); BUN/Creat Ratio 44.2 RATIO (10-20); Calcium,Total 7.5 mg/dL (8.5-10.1); Chloride 106 mmol/L (98-107); Creatinine, Serum 1.29 mg/dL (0.55-1.02); EST Glomerular Filtration Rate 42 mL/min (>60); Est Glom Filt Rate - Afr Amer 51 mL/min (>60); Estimated Creatinine Clearance 32.02 ml/min; Glucose 164 mg/dL (74-106); Magnesium 2.1 mg/dL (1.6-2.6); Potassium 3.4 mmol/L (3.5-5.1); Sodium Level 137 mmol/L (136-145)
[2018-07-31 05:16] LABS: Bedside Glucose 163 mg/dL (70-110)
[2018-07-31 05:18] LABS: Scan Indicated on CBC? Y/N NO
--- NOTE | 2018-07-31 06:35 | PN.SURG_ITS ---
Patient Problems: Active and Suspected Problems (Last Reviewed 03/01/18 @ 13:10 by Victoria Fu) Large bowel perforation (Acute) Septic shock (Acute) Subjective: Patient denies nausea or vomiting or abdominal pain with the NG in place about 600 out yesterday. Patient's colostomy was irrigated 3 times yesterday and did have results each time usually a smaller amount. - Physical Exam General: Alert, Cooperative, No apparent distress Abdomen: Soft, Non Tender, Distended - Mild to moderate, - - Incision clean dry and intact with yuriy, colostomy mild edema minimal stool in bag. Vital Signs Temp Pulse Resp BP Pulse Ox 97.6 F L 77 18 102/37 L 97 07/31/18 03:30 07/31/18 03:30 07/31/18 03:30 07/31/18 03:30 07/31/18 03:30 Oxygen Flow Rate (L/min) 2 Oxygen Delivery Method Room Air Weight: 199 lb 1.239 oz Body Mass Index (BMI) 29.2 Intake and Output for Last 24 Hours 07/29/18 07/30/18 07/31/18 23:59 23:59 23:59 Intake Total 2649 / 2649 2772 / 2772 1147 / 1147 Output Total 2750 / 2750 2375 / 2375 275 / 275 Balance -101 / -101 397 / 397 872 / 872 Microbiology Past 72 Hours 07/28/18 12:00 Blood Culture - Preliminary Blood Culture (Wb) - Central Line No growth in 48 hours. 07/23/18 15:20 Blood Culture - Final Blood Culture (Wb) - Other No growth in 5 days. 07/20/18 12:10 Gram Stain - Final Wound Drainage - Other Wound Culture - Final Escherichia coli Acinetobacter spp Anaerobic Culture - Final Bacteroides thetaiotaomicron Bacteroides caccae Anaerobic cocci Laboratory Tests Past 24 Hrs 07/30/18 07/30/18 07/31/18 06:00 06:00 04:55 WBC 13.9 H 15.4 H RBC 2.58 L 2.38 L Hgb 8.0 L 7.7 L Hct 24.3 L 22.8 L MCV 94.2 95.8 MCH 31.0 32.4 H MCHC 32.9 33.8 RDW 16.3 H 16.0 H RDW Differential 56.0 H 52.2 H Plt Count 240 281 MPV 11.2 11.1 Immature Gran % (Auto) 1.300 H Neut % (Auto) 81.0 H Lymph % (Auto) 8.9 L [place] % (Auto) 6.8 Eos % (Auto) 1.8 Baso % (Auto) 0.2 Absolute Neuts (auto) 11.2 H Absolute Lymphs (auto) 1.24 Total Counted Not Reportable Sodium 138 Potassium 4.1 Chloride 109 H Carbon Dioxide 21.0 Anion Gap 8 BUN 60 H Creatinine 1.42 H Estim Creat Clear Calc 29.09 Est GFR (MDRD) Af Amer 46 L Est GFR (MDRD) Non-Af 38 L BUN/Creatinine Ratio 42.3 H Glucose 235 H Calcium 7.5 L Phosphorus 1.9 L Magnesium 1.4 L 07/31/18 04:55 WBC RBC Hgb Hct MCV MCH MCHC RDW RDW Differential Plt Count MPV Immature Gran % (Auto) Neut % (Auto) Lymph % (Auto) [place] % (Auto) Eos % (Auto) Baso % (Auto) Absolute Neuts (auto) Absolute Lymphs (auto) Total Counted Sodium 137 Potassium 3.4 L Chloride 106 Carbon Dioxide 21.0 Anion Gap 10 BUN 57 H Creatinine 1.29 H Estim Creat Clear Calc 32.02 Est GFR (MDRD) Af Amer 51 L Est GFR (MDRD) Non-Af 42 L BUN/Creatinine Ratio 44.2 H Glucose 164 H Calcium 7.5 L Phosphorus Magnesium 2.1 POC Glucose 07/31/18 07/30/18 07/30/18 05:03 23:15 17:38 POC Glucose 163 H 229 H 258 H 07/30/18 11:56 POC Glucose 289 H Medical Necessity - Tobacco Use Smoking Status: Never smoker Tobacco Use: Non-smoker Assessment/Plan All Active Problems (Last Reviewed 03/01/18 @ 13:10 by Victoria Fu) Large bowel perforation (Acute) Septic shock (Acute) DEMETRA (acute kidney injury) (Acute) Pneumococcal pneumonia (Acute) SVT (supraventricular tachycardia) (Acute) 82-year-old female with pneumoperitoneum from perforated splenic flexure of the colon POD#11 s/p ex lap, L colon resection, end colostomy; septic shock- resolved, history of COPD, diabetes, tachycardia-resolved, leukocytosis 1. continue NG/TPN, will continue Golytely irrigation of stoma--did do GoLYTELY irrigation this morning of about 360 cc and did get some soft brown/liquid stool, on exam there is some softer stool near the stoma site did try to break up a little bit. We will plan to come back this afternoon and do another irrigation with the GoLYTELY. 2. Tachycardia-resolved, on amiodarone per cardiology 3. Leukocytosis?on meropenem per ID. Continue to monitor 4. Creatinine improving. Aurora Young M.D. Pager: [phone] [facility] [address] [place] [address], [facility], [address] [place] [address] Office: [phone]
[2018-07-31] MEDS: Budesonide Respules 0.5 MG/2 ML AMPUL.NEB. INHALATION (06:53)
--- NOTE | 2018-07-31 09:14 | PCM.PN.HOSP ---
Patient Problems: Active and Suspected Problems (Last Reviewed 03/01/18 @ 13:10 by Victoria Fu) Large bowel perforation (Acute) Septic shock (Acute) Subjective: Patient seen NG tube still remains in place. WBC count still remains elevated and a significant drop in her hemoglobin level. Potassium down to 3.4 Objective: GENERAL: Dyspneic at rest HEENT: Atraumatic moist oral mucosa EYES; Anicteric, Normal Conjunctiva NECK; supple, normal thyroid, no distended JVD. RESPIRATORY: Diminished to auscultation bilaterally, CARDIOVASCULAR: Regular S1 S2, no audible murmurs GI: Colostomy with formed stools, normoactive bowel sounds, : No Renal angle tenderness; EXTREMITIES: No edema, no clubbing, no cyanosis. MUSCULOSKELTAL: Joint Tenderness; no muscle waisting NEURO: Awake; no lateralizing signs. SKIN: No Rash PSYCH; Normal affect Vitals/I&O's: Vital Signs Temp Pulse Resp BP Pulse Ox 97.6 F L 70 20 H 102/37 L 96 07/31/18 03:30 07/31/18 07:54 07/31/18 07:54 07/31/18 03:30 07/31/18 06:53 Oxygen Flow Rate (L/min) 2 Oxygen Delivery Method Room Air Weight: 91 kg Body Mass Index (BMI) 29.2 Intake and Output for Last 24 Hours 07/29/18 07/30/18 07/31/18 23:59 23:59 23:59 Intake Total 2649 / 2649 2772 / 2772 1147 / 1147 Output Total 2750 / 2750 2375 / 2375 635 / 635 Balance -101 / -101 397 / 397 512 / 512 Microbiology Past 72 Hours 07/28/18 12:00 Blood Culture (Wb) - Central Line Blood Culture - Preliminary No growth in 48 hours. 07/23/18 15:20 Blood Culture (Wb) - Other Blood Culture - Final No growth in 5 days. 07/20/18 12:10 Wound Drainage - Other Gram Stain - Final 07/20/18 12:10 Wound Drainage - Other Wound Culture - Final Escherichia coli Acinetobacter spp 07/20/18 12:10 Wound Drainage - Other Anaerobic Culture - Final Bacteroides thetaiotaomicron Bacteroides caccae Anaerobic cocci Laboratory Results 07/30/18 11:56: POC Glucose 289 H 07/30/18 17:38: POC Glucose 258 H 07/30/18 23:15: POC Glucose 229 H 07/31/18 04:55: WBC 15.4 H, RBC 2.38 L, Hgb 7.7 L, Hct 22.8 L, MCV 95.8, MCH 32.4 H, MCHC 33.8, RDW 16.0 H, RDW Differential 52.2 H, Plt Count 281, MPV 11.1 07/31/18 04:55: Sodium 137, Potassium 3.4 L, Chloride 106, Carbon Dioxide 21.0, Anion Gap 10, BUN 57 H, Creatinine 1.29 H, Estim Creat Clear Calc 32.02, Est GFR (MDRD) Af Amer 51 L, Est GFR (MDRD) Non-Af 42 L, BUN/Creatinine Ratio 44.2 H, Glucose 164 H, Calcium 7.5 L, Magnesium 2.1 07/31/18 05:03: POC Glucose 163 H Current Medications Acetaminophen (Tylenol) 650 mg PO Q6H PRN PRN PRN Reason: Mild Pain (1-3)/Temp > 100.7 F Albuterol/Ipratropium (Duoneb) 3 ml INHALATION Q4H PRN PRN PRN Reason: SHORTNESS OF BREATH Amiodarone HCl (Cordarone) 200 mg PO BID [facility] Last Admin: 07/30/18 22:01 Dose: 200 mg Budesonide (Pulmicort Aerosol) 0.5 mg INHALATION BID.RT [facility] Last Admin: 07/31/18 06:53 Dose: 0.5 mg Dextrose (D50w Syringe) 0 gm IV X1 PRN; Protocol PRN Reason: Hypoglycemia Docusate Sodium (Colace Syrup) 100 mg PO DAILY [facility] Last Admin: 07/30/18 10:49 Dose: 100 mg Glucagon () 1 mg IM .X1 PRN PRN Reason: Hypoglycemia Heparin Sodium (Porcine) (Heparin Na) 5,000 unit SC BID [facility] Last Admin: 07/30/18 22:01 Dose: 5,000 unit Sodium Chloride () 250 mls @ 15 mls/hr IV .[id number] PRN PRN Reason: SALINE FLUSH Last Admin: 07/21/18 09:47 Dose: 15 mls/hr Sodium Chloride () 250 mls @ 15 mls/hr IV .[id number] PRN PRN Reason: SALINE FLUSH Meropenem 500 mg/ Sodium (Chloride) 60 mls @ 100 mls/hr IV Q8 [facility] Last Admin: 07/31/18 05:04 Dose: 100 mls/hr Multivitamins 5 ml/ Chromium/Copper/Manganese/Seleni/Zn 0.5 ml/ Folic Acid 0.5 mg/Famotidine 10 mg/ Sodium Acetate 20 meq/ Insulin Human Lispro 65 unit/ Amino Acids 1,017.25 mls @ 84 mls/hr IV .[id number] [facility]; Protocol Stop: 07/31/18 16:13 Last Admin: 07/31/18 03:39 Dose: 84 mls/hr Insulin Glargine (Lantus (Bk)) 10 units SC [facility] Last Admin: 07/31/18 05:04 Dose: 10 units Insulin Human Lispro (Humalog Kwikpen (Bk)) 0 unit SC Q6 [facility]; Protocol Last Admin: 07/31/18 05:04 Dose: 3 u Magnesium Hydroxide (Milk Of Magnesia) 30 ml PO DAILY PRN PRN PRN Reason: Constipation Metoprolol Tartrate (Lopressor (Beta Jose)) 5 mg IV Q6 PRN PRN Reason: TO CONTROL HEART RATE Last Admin: 07/21/18 19:35 Dose: 2.5 mg Metoprolol Tartrate (Lopressor (Beta Jose)) 25 mg PO BID [facility] Last Admin: 07/30/18 22:01 Dose: 25 mg Morphine Sulfate () 1 mg IV Q4H PRN PRN PRN Reason: SEVERE PAIN (6-10/10) Ondansetron HCl (Zofran) 4 mg IV Q8H PRN PRN PRN Reason: NAUSEA Last Admin: 07/29/18 06:22 Dose: 4 mg Potassium Phos/Sodium Phos (Neutra-Phos Packet) 1 packet GT TID [facility] Last Admin: 07/31/18 05:03 Dose: 1 packet Sodium Chloride () 10 - 40 ml IV UD PRN PRN Reason: MULTILUMEN/HICMAN CATH FLUSH Last Admin: 07/30/18 06:12 Dose: 20 ml Medical Necessity - Tobacco Use Smoking Status: Never smoker Tobacco Use: Non-smoker Assessment/Plan All Active Problems (Last Reviewed 03/01/18 @ 13:10 by Victoria Fu) Large bowel perforation (Acute) Septic shock (Acute) DEMETRA (acute kidney injury) (Acute) Pneumococcal pneumonia (Acute) SVT (supraventricular tachycardia) (Acute) Patient is an 82-year-old lady with multiple comorbidities who was admitted with episodes of confusion and assessment of septic shock secondary to acute peritonitis as a result of perforated descending colon made. Admitted to intensive care unit patient underwent exploratory laparotomy with colon resection and end colostomy placed. 1. Septic shock secondary to peritonitis as a result of perforated descending colon near the splenic flexure; resolved. Patient however has experienced increasing leukocytosis. Consult was therefore placed to infectious disease blood cultures and CT of the abdomen and pelvis ordered. Case discussed with Dr Dr Hannah 2. Acute perforated descending colon near the splenic flexure patient underwent Exploratory laparotomy, mobilization of the splenic flexure, left colon resection, end colostomy on 07/20/[address] Hannah 3. Post Op/ICU delirium resolved with nonpharmacological treatment 4. Diabetes mellitus type 2 patient's oral hypoglycemic agents held on admission. Managed with long-acting insulin as well as Accu-Cheks every 4 hours with lispro coverage 5. Severe protein calorie malnutrition as a result of above patient is on nutritional supplementation with TPN 4. Acute kidney injury secondary to ATN from septic shock kidney function appears to be improving 6. Hypernatremia; adjusted IV fluids 7. Acute hypoxic respiratory failure patient was electively intubated for surgery and successfully weaned off 8. COPD currently not in exacerbation 9. Hypokalemia corrected per protocol 10. Hypomagnesemia corrected per protocol 11. History of PSVT currently stable 12. Hypertension-blood pressure controlled, home medications continued with dose adjustment as needed 13. Hypothyroidism-patient is on levothyroxine home dose continued 14. DVT prophylaxis SC heparin 15. Physical deconditioning PT OT requested. manager field services involved in disposition 16. Anemia secondary to anemia of chronic disorder as well as from patient multiple comorbidities monitoring H&H with plan to transfuse if hemoglobin falls below 7 or patient becomes symptomatic CODE STATUS DNR CCA Clinical Impression(s) from Imaging Studies Abdomen CT 07/28/18 07:35 IMPRESSION: Persistent infiltrate in the right lower lobe with a small pleural effusion. Sludge is seen within the gallbladder lumen and possible tiny gallstones. A colostomy is seen in the left mid abdomen. Increased markings in the mesentery most likely secondary to prior surgery. Thickened small bowel loops in the left mid abdomen with surrounding increased markings in the peritoneal fat. There is no evidence of free air at this time. Electronically Signed: Jourdan De La Fuente MD at 13:30 EDT Tel [phone], Service support , KUB X-Ray 07/29/18 08:41 IMPRESSION: The tip of the orogastric tube is in the body of the stomach. Electronically Signed: Jourdan De La Fuente MD at 9:13 EDT Tel [phone], Service support , Code Visit Inpatient E&M: 35905 Subs Hosp L3
[2018-07-31] MEDS: Amiodarone 200 MG Tablet PO ×2 (09:38→22:39)
[2018-07-31] MEDS: Metoprolol Tartrate 25 MG Tablet PO ×2 (09:39→22:39)
[2018-07-31] MEDS: Heparin Injection (Vial) 5,000 UNIT/ML VIAL 5000 UNIT SC ×2 (09:39→22:39)
[2018-07-31] MEDS: Docusate Sodium 100 MG/10 ML UDC PO (09:39)
[2018-07-31 11:46] LABS: Bedside Glucose 118 mg/dL (70-110)
--- NOTE | 2018-07-31 14:07 | PCM.PN.CARD ---
Subjectve: The patient remains with NG tube. She continues to require daily general surgical evaluation of her gastrointestinal process. She has had no acute cardiovascular complaints. Objective: Vital Signs Temp Pulse Resp BP Pulse Ox 97.2 F L 66 20 H 109/50 L 99 07/31/18 13:30 07/31/18 13:30 07/31/18 13:30 07/31/18 13:30 07/31/18 13:30 Oxygen Flow Rate (L/min) 2 Oxygen Delivery Method Nasal Cannula Weight: 200 lb 9.93 oz Body Mass Index (BMI) 29.2 Intake and Output for Last 24 Hours 07/29/18 07/30/18 07/31/18 23:59 23:59 23:59 Intake Total 2649 / 2649 2772 / 2772 1998 Output Total 2750 / 2750 2375 / 2375 1135 / 1135 Balance -101 / -101 397 / 397 864 / 864 General: Awake, Cooperative, No Acute Distress Lungs: Clear to auscultation Cardiovascular: Regular Rhythm, Premature Ectopic Beats, Normal S1, Normal S2 Abdomen: Hypoactive Bowel Sounds 07/31/18 04:55: WBC 15.4 H, RBC 2.38 L, Hgb 7.7 L, Hct 22.8 L, MCV 95.8, MCH 32.4 H, MCHC 33.8, RDW 16.0 H, RDW Differential 52.2 H, Plt Count 281, MPV 11.1 07/31/18 04:55: Sodium 137, Potassium 3.4 L, Chloride 106, Carbon Dioxide 21.0, Anion Gap 10, BUN 57 H, Creatinine 1.29 H, Est GFR (MDRD) Af Amer 51 L, Est GFR (MDRD) Non-Af 42 L, BUN/Creatinine Ratio 44.2 H, Glucose 164 H, Calcium 7.5 L, Magnesium 2.1 Rhythm: Sinus rhythm; premature ectopic complexes Medical Necessity - Tobacco Use Smoking Status: Never smoker Tobacco Use: Non-smoker Assessment/Plan 1. Supraventricular tachycardia The patient does not appear to have had recurrent PSVT since yesterday. She is continuing her beta-katty therapy and her antiarrhythmic therapy via her NG tube. However, if she is unable to continue oral medication then her medications may need to be altered back to an IV form as deemed appropriate. Again, over time, when she is improved from her noncardiovascular condition she may need to be considered for EP study for EPS/RFA. 2. Takotsubo syndrome The patient has a history of an underlying non-CAD related cardiomyopathy compatible with a Takotsubo syndrome lash apical ballooning interim. Over time her LV systolic function has improved. Her recent noninvasive studies would suggest preserved overall LV systolic function and no obvious evidence of myocardial ischemia to suggest the development of underlying CAD. Thus at the present time she will need to be followed, during the stressful event, for any obvious recurrence of the aforementioned syndrome. She may need, depending upon her clinical course, to be reevaluated with echocardiographic studies, etc. 3. CAD The patient has a history of LAD mild calcification as noted above. She was not described as having angiographically significant appearing CAD. Her recent pharmacologic stress nuclear imaging study would not suggest any obvious hemodynamically significant CAD as she had no obvious evidence of ongoing myocardial ischemia. Thus she should continue risk factor evaluation care as deemed appropriate when she is able. 4. Hyperlipidemia The patient should continue evaluation and medical management as deemed appropriate for her age when she is able. 5. Diabetes mellitus She will need to continue under the care of internal medicine for this. 6. COPD She is being evaluated by internal medicine and pulmonology. 7. Hypothyroidism Again she will need to continue under the care of internal medicine for this. If she remains on amiodarone she will need to have her thyroid functions followed and medications adjusted as deemed appropriate. 8. Colon perforation She is now status post surgical intervention. She continues to be followed by general surgery. She now has an NG tube in place. She is requiring daily evaluation and care of her GI process with absent evacuation of stool. 9. Sepsis syndrome This is thought due to her underlying colon perforation. She continues care by internal medicine, general surgery, and infectious disease. 10. Acute renal insufficiency Her creatinine level was markedly elevated upon admission. Her renal function has waxed and waned. This note was generated with [employer] software. It may contain incorrect words, spelling, and punctuation that were not noted in checking the note before signing.
[2018-07-31 19:46] LABS: Bedside Glucose 128 mg/dL (70-110)
[2018-08-01] VITALS (19 sets, daily range): BP systolic 102–125; BP diastolic 47–59; PULSE 65–74; RESP 16–20; TEMP 36.2–37.2; O2SAT 95–99
[2018-08-01 00:06] LABS: Bedside Glucose 105 mg/dL (70-110)
[2018-08-01] MEDS: Na Biphos/Potassium Phosphate PACKET 1 PACKET GT ×3 (05:34→21:31)
[2018-08-01 05:41] LABS: Bedside Glucose 89 mg/dL (70-110)
--- NOTE | 2018-08-01 06:07 | NURSING ---
Called pharmacy at this time and spoke with Clement. System will not allow 6mg of Cathflo to be input. Pharmacist aware and stated he would adjust dose.
[2018-08-01 06:15] LABS: Absolute Lymphocyte Count 1.34 X10^3/ul (0.83-4.51); Absolute Neutrophil Count 8.3 X10^3/uL (2.0-7.7); Basophil# 0.04 X10^3/uL; Basophil% 0.3 % (0-1); Eosinophil# 0.31 X10^3/uL; Eosinophils% 2.6 % (0-5); Hematocrit 22.4 % (37-47); Hemoglobin 7.4 g/dl (12.0-15.0); Lymphocyte # 1.34 X10^3/ul (4.0); Lymphocyte % 11.3 % (19-41); Mean Corpuscular Hgb 31.5 pg (27.0-32.0); Mean Corpuscular Volume 95.3 fL (81-99); Mean Platelet Vol. 10.8 fl (6.2-12.0); Monocyte# 1.65 X10^3/uL; Monocyte% 13.9 % (0-10); Neutrophil # 8.33 X10^3/uL (2.7-7.7); Neutrophil % 70.2 % (47-70); Platelet Count 324 K/mm3 (150-450); RBC Distribution Width CV 16.5 % (11.6-14.6); RBC Distribution Width SD 55.5 fl (35.1-43.9); Red Blood Count 2.35 M/mm3 (4.2-5.4); White Blood Count 11.9 K/mm3 (4.4-11.0)
[2018-08-01 06:18] LABS: Differential Indicated SCAN CRITERIA MET; POSITIVE COUNT NO; POSITIVE DIFFERENTIAL YES; POSITIVE MORPHOLOGY YES
[2018-08-01 06:27] LABS: Anion Gap 8 (5-15); BUN 56 mg/dL (7-18); BUN/Creat Ratio 43.8 RATIO (10-20); Calcium,Total 7.8 mg/dL (8.5-10.1); Chloride 105 mmol/L (98-107); Creatinine, Serum 1.28 mg/dL (0.55-1.02); EST Glomerular Filtration Rate 43 mL/min (>60); Est Glom Filt Rate - Afr Amer 51 mL/min (>60); Estimated Creatinine Clearance 32.27 ml/min; Glucose 82 mg/dL (74-106); Potassium 3.2 mmol/L (3.5-5.1); Sodium Level 135 mmol/L (136-145)
--- NOTE | 2018-08-01 07:40 | PCM.PN.SRG ---
Patient Problems: Active and Suspected Problems (Last Reviewed 03/01/18 @ 13:10 by Victoria Fu) Large bowel perforation (Acute) Septic shock (Acute) Subjective: Patient has no abdominal complaints and no complaints of nausea - Physical Exam General: Alert, Cooperative, No apparent distress HEENT: Atraumatic Lungs: Normal air movement Cardiovascular: Regular rate Abdomen: Soft, Non Tender, Distended - Mild, - - Incision clean dry and intact with yuriy, ostomy pink/mild edema, positive stool in colostomy bag Extremities: No clubbing, No cyanosis Vital Signs Temp Pulse Resp BP Pulse Ox 97.1 F L 66 18 118/48 L 99 08/01/18 04:33 08/01/18 04:33 08/01/18 04:33 08/01/18 04:33 08/01/18 04:33 Oxygen Flow Rate (L/min) 2 Oxygen Delivery Method Room Air Weight: 194 lb 7.163 oz Body Mass Index (BMI) 29.2 Intake and Output for Last 24 Hours 07/30/18 07/31/18 08/01/18 23:59 23:59 23:59 Intake Total 2772 / 2772 2651 / 2651 1243 / 1243 Output Total 2375 / 2375 1785 / 1785 1330 / 1330 Balance 397 / 397 866 / 866 -87 / -87 Microbiology Past 72 Hours 07/28/18 12:00 Blood Culture - Preliminary Blood Culture (Wb) - Central Line No growth in 48 hours. 07/23/18 15:20 Blood Culture - Final Blood Culture (Wb) - Other No growth in 5 days. Laboratory Tests Past 24 Hrs 08/01/18 08/01/18 05:10 05:10 WBC 11.9 H RBC 2.35 L Hgb 7.4 L Hct 22.4 L MCV 95.3 MCH 31.5 MCHC 33.0 RDW 16.5 H RDW Differential 55.5 H Plt Count 324 MPV 10.8 Immature Gran % (Auto) 1.700 H Neut % (Auto) 70.2 H Lymph % (Auto) 11.3 L [place] % (Auto) 13.9 H Eos % (Auto) 2.6 Baso % (Auto) 0.3 Absolute Neuts (auto) 8.3 H Absolute Lymphs (auto) 1.34 Total Counted Not Reportable Sodium 135 L Potassium 3.2 L Chloride 105 Carbon Dioxide 22.0 Anion Gap 8 BUN 56 H Creatinine 1.28 H Estim Creat Clear Calc 32.27 Est GFR (MDRD) Af Amer 51 L Est GFR (MDRD) Non-Af 43 L BUN/Creatinine Ratio 43.8 H Glucose 82 Calcium 7.8 L POC Glucose 08/01/18 08/01/18 07/31/18 05:26 00:00 18:02 POC Glucose 89 105 128 H 07/31/18 11:42 POC Glucose 118 H Medical Necessity - Tobacco Use Smoking Status: Never smoker Tobacco Use: Non-smoker Assessment/Plan All Active Problems (Last Reviewed 03/01/18 @ 13:10 by Victoria Fu) Large bowel perforation (Acute) Septic shock (Acute) DEMETRA (acute kidney injury) (Acute) Pneumococcal pneumonia (Acute) SVT (supraventricular tachycardia) (Acute) 82-year-old female with pneumoperitoneum from perforated splenic flexure of the colon POD#12 s/p ex lap, L colon resection, end colostomy; septic shock-resolved, history of COPD, diabetes, tachycardia-resolved, leukocytosis 1. continue NG/TPN, will continue Golytely irrigation of stoma--did do GoLYTELY irrigation with 14 Thai red rubber catheter this morning of about 300 cc and did get some soft brown/liquid stool, on exam there is some softer stool near the stoma site did try to break up a little bit. Will plan to come back this afternoon and do another irrigation with the GoLYTELY. 2. Tachycardia-resolved, on amiodarone per cardiology 3. Leukocytosis?improving on meropenem per ID. Continue to monitor 4. Creatinine improving. 5. Anemia?7.4, patient was started on Protonix as NG had may be a very light tinge of pink to it yesterday today it is clear/brown, patient may require transfusion. During the irrigation of the stoma no obvious gross blood has been seen or at the time of surgery and the stool. Aurora Young M.D. Pager: [phone] [facility] [address] [place] [address], [facility], [address] [place] [address] Office: [phone]
--- NOTE | 2018-08-01 07:43 | PN.SURG_ITS ---
Patient Problems: Active and Suspected Problems (Last Reviewed 03/01/18 @ 13:10 by Victoria Fu) Large bowel perforation (Acute) Septic shock (Acute) Subjective: Patient has no abdominal complaints and no complaints of nausea - Physical Exam General: Alert, Cooperative, No apparent distress HEENT: Atraumatic Lungs: Normal air movement Cardiovascular: Regular rate Abdomen: Soft, Non Tender, Distended - Mild, - - Incision clean dry and intact with yuriy, ostomy pink/mild edema, positive stool in colostomy bag Extremities: No clubbing, No cyanosis Vital Signs Temp Pulse Resp BP Pulse Ox 97.1 F L 66 18 118/48 L 99 08/01/18 04:33 08/01/18 04:33 08/01/18 04:33 08/01/18 04:33 08/01/18 04:33 Oxygen Flow Rate (L/min) 2 Oxygen Delivery Method Room Air Weight: 194 lb 7.163 oz Body Mass Index (BMI) 29.2 Intake and Output for Last 24 Hours 07/30/18 07/31/18 08/01/18 23:59 23:59 23:59 Intake Total 2772 / 2772 2651 / 2651 1243 / 1243 Output Total 2375 / 2375 1785 / 1785 1330 / 1330 Balance 397 / 397 866 / 866 -87 / -87 Microbiology Past 72 Hours 07/28/18 12:00 Blood Culture - Preliminary Blood Culture (Wb) - Central Line No growth in 48 hours. 07/23/18 15:20 Blood Culture - Final Blood Culture (Wb) - Other No growth in 5 days. Laboratory Tests Past 24 Hrs 08/01/18 08/01/18 05:10 05:10 WBC 11.9 H RBC 2.35 L Hgb 7.4 L Hct 22.4 L MCV 95.3 MCH 31.5 MCHC 33.0 RDW 16.5 H RDW Differential 55.5 H Plt Count 324 MPV 10.8 Immature Gran % (Auto) 1.700 H Neut % (Auto) 70.2 H Lymph % (Auto) 11.3 L Jones % (Auto) 13.9 H Eos % (Auto) 2.6 Baso % (Auto) 0.3 Absolute Neuts (auto) 8.3 H Absolute Lymphs (auto) 1.34 Total Counted Not Reportable Sodium 135 L Potassium 3.2 L Chloride 105 Carbon Dioxide 22.0 Anion Gap 8 BUN 56 H Creatinine 1.28 H Estim Creat Clear Calc 32.27 Est GFR (MDRD) Af Amer 51 L Est GFR (MDRD) Non-Af 43 L BUN/Creatinine Ratio 43.8 H Glucose 82 Calcium 7.8 L POC Glucose 08/01/18 08/01/18 07/31/18 05:26 00:00 18:02 POC Glucose 89 105 128 H 07/31/18 11:42 POC Glucose 118 H Medical Necessity - Tobacco Use Smoking Status: Never smoker Tobacco Use: Non-smoker Assessment/Plan All Active Problems (Last Reviewed 03/01/18 @ 13:10 by Victoria Fu) Large bowel perforation (Acute) Septic shock (Acute) DEMETRA (acute kidney injury) (Acute) Pneumococcal pneumonia (Acute) SVT (supraventricular tachycardia) (Acute) 82-year-old female with pneumoperitoneum from perforated splenic flexure of the colon POD#12 s/p ex lap, L colon resection, end colostomy; septic shock-resolv ed, history of COPD, diabetes, tachycardia-resolved, leukocytosis 1. continue NG/TPN, will continue Golytely irrigation of stoma--did do GoLYTELY irrigation with 14 Armenian red rubber catheter this morning of about 300 cc and did get some soft brown/liquid stool, on exam there is some softer stool near the stoma site did try to break up a little bit. Will plan to come back this afternoon and do another irrigation with the GoLYTELY. 2. Tachycardia-resolved, on amiodarone per cardiology 3. Leukocytosis?improving on meropenem per ID. Continue to monitor 4. Creatinine improving. 5. Anemia?7.4, patient was started on Protonix as NG had may be a very light tinge of pink to it yesterday today it is clear/brown, patient may require transfusion. During the irrigation of the stoma no obvious gross blood has been seen or at the time of surgery and the stool. Aurora Young M.D. Pager: [phone] [facility] [address] [place] [address], [facility], [address] [place] [address] Office: [phone]
[2018-08-01 08:16] LABS: Bedside Glucose 96 mg/dL (70-110)
[2018-08-01] MEDS: Alteplase 2 MG/2 ML Vial IV ×2 (09:07→09:38)
--- NOTE | 2018-08-01 09:28 | PCM.PN.HOSP ---
Patient Problems: Active and Suspected Problems (Last Reviewed 03/01/18 @ 13:10 by Victoria Fu) Large bowel perforation (Acute) Septic shock (Acute) Subjective: Patient seen still remains frail. Hemoglobin down to 7.4. Potassium down to 3.2. Leukocytosis down to 11.1 Apparently having stool coming from her colostomy with irrigation. With patient deemed to be symptomatic and order was given for patient to be transfused 1 unit PRBC Objective: GENERAL: Dyspneic at rest HEENT: Atraumatic moist oral mucosa EYES; Anicteric, Normal Conjunctiva NECK; supple, normal thyroid, no distended JVD. RESPIRATORY: Diminished to auscultation bilaterally, CARDIOVASCULAR: Regular S1 S2, no audible murmurs GI: Colostomy with formed stools, normoactive bowel sounds, : No Renal angle tenderness; EXTREMITIES: No edema, no clubbing, no cyanosis. MUSCULOSKELTAL: Joint Tenderness; no muscle waisting NEURO: Awake; no lateralizing signs. SKIN: No Rash PSYCH; Normal affect Vitals/I&O's: Vital Signs Temp Pulse Resp BP Pulse Ox 97.1 F L 67 18 118/48 L 99 08/01/18 04:33 08/01/18 07:30 08/01/18 04:33 08/01/18 04:33 08/01/18 04:33 Oxygen Flow Rate (L/min) 2 Oxygen Delivery Method Room Air Weight: 88.2 kg Body Mass Index (BMI) 29.2 Intake and Output for Last 24 Hours 07/30/18 07/31/18 08/01/18 23:59 23:59 23:59 Intake Total 2772 / 2772 2651 / 2651 1243 / 1243 Output Total 2375 / 2375 1785 / 1785 1330 / 1330 Balance 397 / 397 866 / 866 -87 / -87 Microbiology Past 72 Hours 07/28/18 12:00 Blood Culture (Wb) - Central Line Blood Culture - Preliminary No growth in 48 hours. 07/23/18 15:20 Blood Culture (Wb) - Other Blood Culture - Final No growth in 5 days. Laboratory Results 07/31/18 11:42: POC Glucose 118 H 07/31/18 18:02: POC Glucose 128 H 08/01/18 00:00: POC Glucose 105 08/01/18 05:10: WBC 11.9 H, RBC 2.35 L, Hgb 7.4 L, Hct 22.4 L, MCV 95.3, MCH 31.5, MCHC 33.0, RDW 16.5 H, RDW Differential 55.5 H, Plt Count 324, MPV 10.8, Immature Gran % (Auto) 1.700 H, Neut % (Auto) 70.2 H, Lymph % (Auto) 11.3 L, [place] % (Auto) 13.9 H, Eos % (Auto) 2.6, Baso % (Auto) 0.3, Absolute Neuts (auto) 8.3 H, Absolute Lymphs (auto) 1.34, Total Counted Not Reportable 08/01/18 05:10: Sodium 135 L, Potassium 3.2 L, Chloride 105, Carbon Dioxide 22.0, Anion Gap 8, BUN 56 H, Creatinine 1.28 H, Estim Creat Clear Calc 32.27, Est GFR (MDRD) Af Amer 51 L, Est GFR (MDRD) Non-Af 43 L, BUN/Creatinine Ratio 43.8 H, Glucose 82, Calcium 7.8 L 08/01/18 05:26: POC Glucose 89 08/01/18 07:58: POC Glucose 96 Current Medications Acetaminophen (Tylenol) 650 mg PO Q6H PRN PRN PRN Reason: Mild Pain (1-3)/Temp > 100.7 F Albuterol/Ipratropium (Duoneb) 3 ml INHALATION Q4H PRN PRN PRN Reason: SHORTNESS OF BREATH Amiodarone HCl (Cordarone) 200 mg PO BID [facility] Last Admin: 07/31/18 22:39 Dose: 200 mg Budesonide (Pulmicort Aerosol) 0.5 mg INHALATION BID.RT [facility] Last Admin: 08/01/18 07:15 Dose: Not Given Dextrose (D50w Syringe) 0 gm IV X1 PRN; Protocol PRN Reason: Hypoglycemia Docusate Sodium (Colace Syrup) 100 mg PO DAILY [facility] Last Admin: 07/31/18 09:39 Dose: 100 mg Glucagon () 1 mg IM .X1 PRN PRN Reason: Hypoglycemia Heparin Sodium (Porcine) (Heparin Na) 5,000 unit SC BID [facility] Last Admin: 07/31/18 22:39 Dose: 5,000 unit Sodium Chloride () 250 mls @ 15 mls/hr IV .[id number] PRN PRN Reason: SALINE FLUSH Last Admin: 07/21/18 09:47 Dose: 15 mls/hr Sodium Chloride () 250 mls @ 15 mls/hr IV .[id number] PRN PRN Reason: SALINE FLUSH Meropenem 500 mg/ Sodium (Chloride) 60 mls @ 100 mls/hr IV Q8 [facility] Last Admin: 08/01/18 05:35 Dose: 100 mls/hr Multivitamins 5 ml/ Chromium/Copper/Manganese/Seleni/Zn 0.5 ml/ Folic Acid 0.5 mg/Famotidine 10 mg/ Sodium Acetate 20 meq/ Sodium Phosphate 12 mm/ Magnesium Sulfate 1 gm/ Insulin Human Lispro 75 unit/ Amino Acids 1,023.35 mls @ 84 mls/hr IV .[id number] [facility]; Protocol Stop: 08/01/18 16:21 Last Admin: 08/01/18 05:32 Dose: 84 mls/hr Pantoprazole Sodium 40 mg/ (Sodium Chloride) 110 mls @ 330 mls/hr IV Q24 [facility] Last Admin: 07/31/18 15:58 Dose: 330 mls/hr Multivitamins 5 ml/ Chromium/Copper/Manganese/Seleni/Zn 0.5 ml/ Folic Acid 0.5 mg/ Sodium Acetate 40 meq/ Sodium Phosphate 12 mm/ Potassium Chloride 40 meq/ Magnesium Sulfate 1 gm/ Insulin Human Lispro 70 unit/ Amino Acids 1,052.3 mls @ 84 mls/hr IV .[id number] [facility]; Protocol Stop: 08/02/18 17:03 Insulin Glargine (Lantus (Bkc)) 10 units SC [facility] Last Admin: 08/01/18 05:28 Dose: Not Given Insulin Human Lispro (Humalog Kwikpen (Bkc)) 0 unit SC Q6 [facility]; Protocol Last Admin: 08/01/18 05:28 Dose: Not Given Magnesium Hydroxide (Milk Of Magnesia) 30 ml PO DAILY PRN PRN PRN Reason: Constipation Metoprolol Tartrate (Lopressor (Beta Jose)) 5 mg IV Q6 PRN PRN Reason: TO CONTROL HEART RATE Last Admin: 07/21/18 19:35 Dose: 2.5 mg Metoprolol Tartrate (Lopressor (Beta Jose)) 25 mg PO BID [facility] Last Admin: 07/31/18 22:39 Dose: 25 mg Morphine Sulfate () 1 mg IV Q4H PRN PRN PRN Reason: SEVERE PAIN (6-10/10) Ondansetron HCl (Zofran) 4 mg IV Q8H PRN PRN PRN Reason: NAUSEA Last Admin: 07/29/18 06:22 Dose: 4 mg Potassium Phos/Sodium Phos (Neutra-Phos Packet) 1 packet GT TID [facility] Last Admin: 08/01/18 05:34 Dose: 1 packet Sodium Chloride () 10 - 40 ml IV UD PRN PRN Reason: MULTILUMEN/HICMAN CATH FLUSH Last Admin: 08/01/18 05:20 Dose: 20 ml Medical Necessity - Tobacco Use Smoking Status: Never smoker Tobacco Use: Non-smoker Assessment/Plan All Active Problems (Last Reviewed 03/01/18 @ 13:10 by Victoria Fu) Large bowel perforation (Acute) Septic shock (Acute) DEMETRA (acute kidney injury) (Acute) Pneumococcal pneumonia (Acute) SVT (supraventricular tachycardia) (Acute) Patient is an 82-year-old lady with multiple comorbidities who was admitted with episodes of confusion and assessment of septic shock secondary to acute peritonitis as a result of perforated descending colon made. Admitted to intensive care unit patient underwent exploratory laparotomy with colon resection and end colostomy placed. 1. Septic shock secondary to peritonitis as a result of perforated descending colon near the splenic flexure; resolved. Patient however has experienced increasing leukocytosis. Consult was therefore placed to infectious disease blood cultures and CT of the abdomen and pelvis ordered. Case discussed with Dr Dr Hannah. Patient remains afebrile as of 08/01/2018 leukocytosis down to 11.1 patient remains on meropenem 2. Acute perforated descending colon near the splenic flexure patient underwent Exploratory laparotomy, mobilization of the splenic flexure, left colon resection, end colostomy on 07/20/[address] Hannah 3. Post Op/ICU delirium resolved with nonpharmacological treatment 4. Diabetes mellitus type 2 patient's oral hypoglycemic agents held on admission. Managed with long-acting insulin as well as Accu-Cheks every 4 hours with lispro coverage 5. Severe protein calorie malnutrition as a result of above patient is on nutritional supplementation with TPN 4. Acute kidney injury secondary to ATN from septic shock kidney function appears to be improving 6. Hypernatremia; adjusted IV fluids 7. Acute hypoxic respiratory failure patient was electively intubated for surgery and successfully weaned off 8. COPD currently not in exacerbation 9. Hypokalemia corrected per protocol 10. Hypomagnesemia corrected per protocol 11. History of PSVT currently stable 12. Hypertension-blood pressure controlled, home medications continued with dose adjustment as needed 13. Hypothyroidism-patient is on levothyroxine home dose continued 14. DVT prophylaxis SC heparin 15. Physical deconditioning PT OT requested. director human services involved in disposition 16. Anemia secondary to anemia of chronic disorder as well as from patient multiple comorbidities monitored H&H was transfused 1 unit PRBC on 08/01/2018 with the patient deemed to be symptomatic with hemoglobin at 7.4 CODE STATUS DNR [facility] Active Medications Acetaminophen (Tylenol) 650 mg PO Q6H PRN PRN PRN Reason: Mild Pain (1-3)/Temp > 100.7 F Albuterol/Ipratropium (Duoneb) 3 ml INHALATION Q4H PRN PRN PRN Reason: SHORTNESS OF BREATH Amiodarone HCl (Cordarone) 200 mg PO BID [facility] Last Admin: 07/31/18 22:39 Dose: 200 mg Budesonide (Pulmicort Aerosol) 0.5 mg INHALATION BID.RT [facility] Last Admin: 08/01/18 07:15 Dose: Not Given Dextrose (D50w Syringe) 0 gm IV X1 PRN; Protocol PRN Reason: Hypoglycemia Docusate Sodium (Colace Syrup) 100 mg PO DAILY [facility] Last Admin: 07/31/18 09:39 Dose: 100 mg Glucagon () 1 mg IM .X1 PRN PRN Reason: Hypoglycemia Heparin Sodium (Porcine) (Heparin Na) 5,000 unit SC BID [facility] Last Admin: 07/31/18 22:39 Dose: 5,000 unit Sodium Chloride () 250 mls @ 15 mls/hr IV .[id number] PRN PRN Reason: SALINE FLUSH Last Admin: 07/21/18 09:47 Dose: 15 mls/hr Sodium Chloride () 250 mls @ 15 mls/hr IV .[id number] PRN PRN Reason: SALINE FLUSH Meropenem 500 mg/ Sodium (Chloride) 60 mls @ 100 mls/hr IV Q8 [facility] Last Admin: 08/01/18 05:35 Dose: 100 mls/hr Multivitamins 5 ml/ Chromium/Copper/Manganese/Seleni/Zn 0.5 ml/ Folic Acid 0.5 mg/Famotidine 10 mg/ Sodium Acetate 20 meq/ Sodium Phosphate 12 mm/ Magnesium Sulfate 1 gm/ Insulin Human Lispro 75 unit/ Amino Acids 1,023.35 mls @ 84 mls/hr IV .[id number] [facility]; Protocol Stop: 08/01/18 16:21 Last Admin: 08/01/18 05:32 Dose: 84 mls/hr Pantoprazole Sodium 40 mg/ (Sodium Chloride) 110 mls @ 330 mls/hr IV Q24 [facility] Last Admin: 07/31/18 15:58 Dose: 330 mls/hr Multivitamins 5 ml/ Chromium/Copper/Manganese/Seleni/Zn 0.5 ml/ Folic Acid 0.5 mg/ Sodium Acetate 40 meq/ Sodium Phosphate 12 mm/ Potassium Chloride 40 meq/ Magnesium Sulfate 1 gm/ Insulin Human Lispro 70 unit/ Amino Acids 1,052.3 mls @ 84 mls/hr IV .[id number] [facility]; Protocol Stop: 08/02/18 17:03 Insulin Glargine (Lantus (Bkc)) 10 units SC [facility] Last Admin: 08/01/18 05:28 Dose: Not Given Insulin Human Lispro (Humalog Kwikpen (Bkc)) 0 unit SC Q6 [facility]; Protocol Last Admin: 08/01/18 05:28 Dose: Not Given Magnesium Hydroxide (Milk Of Magnesia) 30 ml PO DAILY PRN PRN PRN Reason: Constipation Metoprolol Tartrate (Lopressor (Beta Jose)) 5 mg IV Q6 PRN PRN Reason: TO CONTROL HEART RATE Last Admin: 07/21/18 19:35 Dose: 2.5 mg Metoprolol Tartrate (Lopressor (Beta Jose)) 25 mg PO BID [facility] Last Admin: 07/31/18 22:39 Dose: 25 mg Morphine Sulfate () 1 mg IV Q4H PRN PRN PRN Reason: SEVERE PAIN (6-10/10) Ondansetron HCl (Zofran) 4 mg IV Q8H PRN PRN PRN Reason: NAUSEA Last Admin: 07/29/18 06:22 Dose: 4 mg Potassium Phos/Sodium Phos (Neutra-Phos Packet) 1 packet GT TID [facility] Last Admin: 08/01/18 05:34 Dose: 1 packet Sodium Chloride () 10 - 40 ml IV UD PRN PRN Reason: MULTILUMEN/HICMAN CATH FLUSH Last Admin: 08/01/18 05:20 Dose: 20 ml Code Visit Inpatient E&M: [id number] Subs Hosp L3
--- NOTE | 2018-08-01 09:31 | PN_ITS ---
Patient Problems: Active and Suspected Problems (Last Reviewed 03/01/18 @ 13:10 by Victoria Fu) Large bowel perforation (Acute) Septic shock (Acute) Subjective: Patient seen still remains frail. Hemoglobin down to 7.4. Potassium down to 3.2. Leukocytosis down to 11.1 Apparently having stool coming from her colostomy with irrigation. With patient deemed to be symptomatic and order was given for patient to be transfused 1 unit PRBC Objective: GENERAL: Dyspneic at rest HEENT: Atraumatic moist oral mucosa EYES; Anicteric, Normal Conjunctiva NECK; supple, normal thyroid, no distended JVD. RESPIRATORY: Diminished to auscultation bilaterally, CARDIOVASCULAR: Regular S1 S2, no audible murmurs GI: Colostomy with formed stools, normoactive bowel sounds, : No Renal angle tenderness; EXTREMITIES: No edema, no clubbing, no cyanosis. MUSCULOSKELTAL: Joint Tenderness; no muscle waisting NEURO: Awake; no lateralizing signs. SKIN: No Rash PSYCH; Normal affect Vitals/I&O's: Vital Signs Temp Pulse Resp BP Pulse Ox 97.1 F L 67 18 118/48 L 99 08/01/18 04:33 08/01/18 07:30 08/01/18 04:33 08/01/18 04:33 08/01/18 04:33 Oxygen Flow Rate (L/min) 2 Oxygen Delivery Method Room Air Weight: 88.2 kg Body Mass Index (BMI) 29.2 Intake and Output for Last 24 Hours 07/30/18 07/31/18 08/01/18 23:59 23:59 23:59 Intake Total 2772 / 2772 2651 / 2651 1243 / 1243 Output Total 2375 / 2375 1785 / 1785 1330 / 1330 Balance 397 / 397 866 / 866 -87 / -87 Microbiology Past 72 Hours 07/28/18 12:00 Blood Culture (Wb) - Central Line Blood Culture - Preliminary No growth in 48 hours. 07/23/18 15:20 Blood Culture (Wb) - Other Blood Culture - Final No growth in 5 days. Laboratory Results 07/31/18 11:42: POC Glucose 118 H 07/31/18 18:02: POC Glucose 128 H 08/01/18 00:00: POC Glucose 105 08/01/18 05:10: WBC 11.9 H, RBC 2.35 L, Hgb 7.4 L, Hct 22.4 L, MCV 95.3, MCH 31.5, MCHC 33.0, RDW 16.5 H, RDW Differential 55.5 H, Plt Count 324, MPV 10.8, Immature Gran % (Auto) 1.700 H, Neut % (Auto) 70.2 H, Lymph % (Auto) 11.3 L, [place] % (Auto) 13.9 H, Eos % (Auto) 2.6, Baso % (Auto) 0.3, Absolute Neuts (auto) 8.3 H, Absolute Lymphs (auto) 1.34, Total Counted Not Reportable 08/01/18 05:10: Sodium 135 L, Potassium 3.2 L, Chloride 105, Carbon Dioxide 22.0, Anion Gap 8, BUN 56 H, Creatinine 1.28 H, Estim Creat Clear Calc 32.27, Est GFR (MDRD) Af Amer 51 L, Est GFR (MDRD) Non-Af 43 L, BUN/Creatinine Ratio 43.8 H, Glucose 82, Calcium 7.8 L 08/01/18 05:26: POC Glucose 89 08/01/18 07:58: POC Glucose 96 Current Medications Acetaminophen (Tylenol) 650 mg PO Q6H PRN PRN PRN Reason: Mild Pain (1-3)/Temp > 100.7 F Albuterol/Ipratropium (Duoneb) 3 ml INHALATION Q4H PRN PRN PRN Reason: SHORTNESS OF BREATH Amiodarone HCl (Cordarone) 200 mg PO BID [facility] Last Admin: 07/31/18 22:39 Dose: 200 mg Budesonide (Pulmicort Aerosol) 0.5 mg INHALATION BID.RT [facility] Last Admin: 08/01/18 07:15 Dose: Not Given Dextrose (D50w Syringe) 0 gm IV X1 PRN; Protocol PRN Reason: Hypoglycemia Docusate Sodium (Colace Syrup) 100 mg PO DAILY [facility] Last Admin: 07/31/18 09:39 Dose: 100 mg Glucagon () 1 mg IM .X1 PRN PRN Reason: Hypoglycemia Heparin Sodium (Porcine) (Heparin Na) 5,000 unit SC BID [facility] Last Admin: 07/31/18 22:39 Dose: 5,000 unit Sodium Chloride () 250 mls @ 15 mls/hr IV .[id number] PRN PRN Reason: SALINE FLUSH Last Admin: 07/21/18 09:47 Dose: 15 mls/hr Sodium Chloride () 250 mls @ 15 mls/hr IV .[id number] PRN PRN Reason: SALINE FLUSH Meropenem 500 mg/ Sodium (Chloride) 60 mls @ 100 mls/hr IV Q8 [facility] Last Admin: 08/01/18 05:35 Dose: 100 mls/hr Multivitamins 5 ml/ Chromium/Copper/Manganese/Seleni/Zn 0.5 ml/ Folic Acid 0.5 mg/Famotidine 10 mg/ Sodium Acetate 20 meq/ Sodium Phosphate 12 mm/ Magnesium Sulfate 1 gm/ Insulin Human Lispro 75 unit/ Amino Acids 1,023.35 mls @ 84 mls/hr IV .[id number] [facility]; Protocol Stop: 08/01/18 16:21 Last Admin: 08/01/18 05:32 Dose: 84 mls/hr Pantoprazole Sodium 40 mg/ (Sodium Chloride) 110 mls @ 330 mls/hr IV Q24 [facility] Last Admin: 07/31/18 15:58 Dose: 330 mls/hr Multivitamins 5 ml/ Chromium/Copper/Manganese/Seleni/Zn 0.5 ml/ Folic Acid 0.5 mg/ Sodium Acetate 40 meq/ Sodium Phosphate 12 mm/ Potassium Chloride 40 meq/ Magnesium Sulfate 1 gm/ Insulin Human Lispro 70 unit/ Amino Acids 1,052.3 mls @ 84 mls/hr IV .[id number] [facility]; Protocol Stop: 08/02/18 17:03 Insulin Glargine (Lantus (Bkc)) 10 units SC [facility] Last Admin: 08/01/18 05:28 Dose: Not Given Insulin Human Lispro (Humalog Kwikpen (Bkc)) 0 unit SC Q6 [facility]; Protocol Last Admin: 08/01/18 05:28 Dose: Not Given Magnesium Hydroxide (Milk Of Magnesia) 30 ml PO DAILY PRN PRN PRN Reason: Constipation Metoprolol Tartrate (Lopressor (Beta Jose)) 5 mg IV Q6 PRN PRN Reason: TO CONTROL HEART RATE Last Admin: 07/21/18 19:35 Dose: 2.5 mg Metoprolol Tartrate (Lopressor (Beta Jose)) 25 mg PO BID [facility] Last Admin: 07/31/18 22:39 Dose: 25 mg Morphine Sulfate () 1 mg IV Q4H PRN PRN PRN Reason: SEVERE PAIN (6-10/10) Ondansetron HCl (Zofran) 4 mg IV Q8H PRN PRN PRN Reason: NAUSEA Last Admin: 07/29/18 06:22 Dose: 4 mg Potassium Phos/Sodium Phos (Neutra-Phos Packet) 1 packet GT TID [facility] Last Admin: 08/01/18 05:34 Dose: 1 packet Sodium Chloride () 10 - 40 ml IV UD PRN PRN Reason: MULTILUMEN/HICMAN CATH FLUSH Last Admin: 08/01/18 05:20 Dose: 20 ml Medical Necessity - Tobacco Use Smoking Status: Never smoker Tobacco Use: Non-smoker Assessment/Plan All Active Problems (Last Reviewed 03/01/18 @ 13:10 by Victoria Fu) Large bowel perforation (Acute) Septic shock (Acute) DEMETRA (acute kidney injury) (Acute) Pneumococcal pneumonia (Acute) SVT (supraventricular tachycardia) (Acute) Patient is an 82-year-old lady with multiple comorbidities who was admitted with episodes of confusion and assessment of septic shock secondary to acute peritonitis as a result of perforated descending colon made. Admitted to intensive care unit patient underwent exploratory laparotomy with colon resection and end colostomy placed. 1. Septic shock secondary to peritonitis as a result of perforated descending colon near the splenic flexure; resolved. Patient however has experienced increasing leukocytosis. Consult was therefore placed to infectious disease blood cultures and CT of the abdomen and pelvis ordered. Case discussed with Dr Dr Hannah. Patient remains afebrile as of 08/01/2018 leukocytosis down to 11.1 patient remains on meropenem 2. Acute perforated descending colon near the splenic flexure patient underwent Exploratory laparotomy, mobilization of the splenic flexure, left colon resection, end colostomy on 07/20/[address] Hannah 3. Post Op/ICU delirium resolved with nonpharmacological treatment 4. Diabetes mellitus type 2 patient's oral hypoglycemic agents held on admission. Managed with long-acting insulin as well as Accu-Cheks every 4 hours with lispro coverage 5. Severe protein calorie malnutrition as a result of above patient is on nutritional supplementation with TPN 4. Acute kidney injury secondary to ATN from septic shock kidney function appears to be improving 6. Hypernatremia; adjusted IV fluids 7. Acute hypoxic respiratory failure patient was electively intubated for surgery and successfully weaned off 8. COPD currently not in exacerbation 9. Hypokalemia corrected per protocol 10. Hypomagnesemia corrected per protocol 11. History of PSVT currently stable 12. Hypertension-blood pressure controlled, home medications continued with dose adjustment as needed 13. Hypothyroidism-patient is on levothyroxine home dose continued 14. DVT prophylaxis SC heparin 15. Physical deconditioning PT OT requested. patient services assistant involved in disposition 16. Anemia secondary to anemia of chronic disorder as well as from patient multiple comorbidities monitored H&H was transfused 1 unit PRBC on 08/01/2018 with the patient deemed to be symptomatic with hemoglobin at 7.4 CODE STATUS DNR [facility] Active Medications Acetaminophen (Tylenol) 650 mg PO Q6H PRN PRN PRN Reason: Mild Pain (1-3)/Temp > 100.7 F Albuterol/Ipratropium (Duoneb) 3 ml INHALATION Q4H PRN PRN PRN Reason: SHORTNESS OF BREATH Amiodarone HCl (Cordarone) 200 mg PO BID [facility] Last Admin: 07/31/18 22:39 Dose: 200 mg Budesonide (Pulmicort Aerosol) 0.5 mg INHALATION BID.RT [facility] Last Admin: 08/01/18 07:15 Dose: Not Given Dextrose (D50w Syringe) 0 gm IV X1 PRN; Protocol PRN Reason: Hypoglycemia Docusate Sodium (Colace Syrup) 100 mg PO DAILY [facility] Last Admin: 07/31/18 09:39 Dose: 100 mg Glucagon () 1 mg IM .X1 PRN PRN Reason: Hypoglycemia Heparin Sodium (Porcine) (Heparin Na) 5,000 unit SC BID [facility] Last Admin: 07/31/18 22:39 Dose: 5,000 unit Sodium Chloride () 250 mls @ 15 mls/hr IV .[id number] PRN PRN Reason: SALINE FLUSH Last Admin: 07/21/18 09:47 Dose: 15 mls/hr Sodium Chloride () 250 mls @ 15 mls/hr IV .[id number] PRN PRN Reason: SALINE FLUSH Meropenem 500 mg/ Sodium (Chloride) 60 mls @ 100 mls/hr IV Q8 [facility] Last Admin: 08/01/18 05:35 Dose: 100 mls/hr Multivitamins 5 ml/ Chromium/Copper/Manganese/Seleni/Zn 0.5 ml/ Folic Acid 0.5 mg/Famotidine 10 mg/ Sodium Acetate 20 meq/ Sodium Phosphate 12 mm/ Magnesium Sulfate 1 gm/ Insulin Human Lispro 75 unit/ Amino Acids 1,023.35 mls @ 84 mls/hr IV .[id number] [facility]; Protocol Stop: 08/01/18 16:21 Last Admin: 08/01/18 05:32 Dose: 84 mls/hr Pantoprazole Sodium 40 mg/ (Sodium Chloride) 110 mls @ 330 mls/hr IV Q24 [facility] Last Admin: 07/31/18 15:58 Dose: 330 mls/hr Multivitamins 5 ml/ Chromium/Copper/Manganese/Seleni/Zn 0.5 ml/ Folic Acid 0.5 mg/ Sodium Acetate 40 meq/ Sodium Phosphate 12 mm/ Potassium Chloride 40 meq/ Magnesium Sulfate 1 gm/ Insulin Human Lispro 70 unit/ Amino Acids 1,052.3 mls @ 84 mls/hr IV .[id number] [facility]; Protocol Stop: 08/02/18 17:03 Insulin Glargine (Lantus (Bkc)) 10 units SC [facility] Last Admin: 08/01/18 05:28 Dose: Not Given Insulin Human Lispro (Humalog Kwikpen (Bkc)) 0 unit SC Q6 [facility]; Protocol Last Admin: 08/01/18 05:28 Dose: Not Given Magnesium Hydroxide (Milk Of Magnesia) 30 ml PO DAILY PRN PRN PRN Reason: Constipation Metoprolol Tartrate (Lopressor (Beta Jose)) 5 mg IV Q6 PRN PRN Reason: TO CONTROL HEART RATE Last Admin: 07/21/18 19:35 Dose: 2.5 mg Metoprolol Tartrate (Lopressor (Beta Jose)) 25 mg PO BID [facility] Last Admin: 07/31/18 22:39 Dose: 25 mg Morphine Sulfate () 1 mg IV Q4H PRN PRN PRN Reason: SEVERE PAIN (6-10/10) Ondansetron HCl (Zofran) 4 mg IV Q8H PRN PRN PRN Reason: NAUSEA Last Admin: 07/29/18 06:22 Dose: 4 mg Potassium Phos/Sodium Phos (Neutra-Phos Packet) 1 packet GT TID [facility] Last Admin: 08/01/18 05:34 Dose: 1 packet Sodium Chloride () 10 - 40 ml IV UD PRN PRN Reason: MULTILUMEN/HICMAN CATH FLUSH Last Admin: 08/01/18 05:20 Dose: 20 ml Code Visit Inpatient E&M: [id number] Subs Hosp L3
[2018-08-01] MEDS: Metoprolol Tartrate 25 MG Tablet PO ×2 (09:51→21:30)
[2018-08-01] MEDS: Amiodarone 200 MG Tablet PO ×2 (09:51→21:31)
[2018-08-01] MEDS: Docusate Sodium 100 MG/10 ML UDC PO (09:51)
[2018-08-01] MEDS: Heparin Injection (Vial) 5,000 UNIT/ML VIAL 5000 UNIT SC ×2 (09:52→21:31)
[2018-08-01 11:36] LABS: Bedside Glucose 110 mg/dL (70-110)
--- NOTE | 2018-08-01 12:06 | PN.CARD_ITS ---
Subjectve: The patient remains in the hospital. She continues to require general surgical evaluation care of her abdominal related issues. Objective: Vital Signs Temp Pulse Resp BP Pulse Ox 97.5 F L 67 20 H 125/51 H 99 08/01/18 09:45 08/01/18 11:02 08/01/18 09:45 08/01/18 09:51 08/01/18 09:45 Oxygen Flow Rate (L/min) 2 Oxygen Delivery Method Room Air Weight: 194 lb 7.163 oz Body Mass Index (BMI) 29.2 Intake and Output for Last 24 Hours 07/30/18 07/31/18 08/01/18 23:59 23:59 23:59 Intake Total 2772 / 2772 2651 / 2651 1393 / 1393 Output Total 2375 / 2375 1785 / 1785 1330 / 1330 Balance 397 / 397 866 / 866 63 / 63 General: Awake, Cooperative, No Acute Distress Neck: No JVD Lungs: Clear to auscultation Cardiovascular: Regular Rhythm, Premature Ectopic Beats, Normal S1, Normal S2 Abdomen: Hypoactive Bowel Sounds 08/01/18 05:10: WBC 11.9 H, RBC 2.35 L, Hgb 7.4 L, Hct 22.4 L, MCV 95.3, MCH 31.5, MCHC 33.0, RDW 16.5 H, RDW Differential 55.5 H, Plt Count 324, MPV 10.8, Immature Gran % (Auto) 1.700 H, Neut % (Auto) 70.2 H, Lymph % (Auto) 11.3 L, [place]eller % (Auto) 13.9 H, Eos % (Auto) 2.6, Baso % (Auto) 0.3, Absolute Neuts (auto) 8.3 H, Total Counted Not Reportable 08/01/18 05:10: Sodium 135 L, Potassium 3.2 L, Chloride 105, Carbon Dioxide 22.0, Anion Gap 8, BUN 56 H, Creatinine 1.28 H, Est GFR (MDRD) Af Amer 51 L, Est GFR (MDRD) Non-Af 43 L, BUN/Creatinine Ratio 43.8 H, Glucose 82, Calcium 7.8 L Rhythm: Sinus rhythm Medical Necessity - Tobacco Use Smoking Status: Never smoker Tobacco Use: Non-smoker Assessment/Plan 1. Supraventricular tachycardia The patient does not appear to have had recurrent PSVT since yesterday. She is continuing her beta-katty therapy and her antiarrhythmic therapy via her NG tube. Again, over time, when she is improved from her noncardiovascular condition she may need to be considered for EP study for EPS/RFA. 2. Takotsubo syndrome The patient has a history of an underlying non-CAD related cardiomyopathy compatible with a Takotsubo syndrome lash apical ballooning interim. Over time her LV systolic function has improved. Her recent noninvasive studies would suggest preserved overall LV systolic function and no obvious evidence of myocardial ischemia to suggest the development of underlying CAD. 3. CAD The patient has a history of LAD mild calcification as noted above. She was not described as having angiographically significant appearing CAD. Her recent pharmacologic stress nuclear imaging study would not suggest any obvious hemodynamically significant CAD as she had no obvious evidence of ongoing myocardial ischemia. Thus she should continue risk factor evaluation care as deemed appropriate when she is able. 4. Hyperlipidemia The patient should continue evaluation and medical management as deemed appropriate for her age when she is able. 5. Diabetes mellitus She will need to continue under the care of internal medicine for this. 6. COPD She is being evaluated by internal medicine and pulmonology. 7. Hypothyroidism Again she will need to continue under the care of internal medicine for this. If she remains on amiodarone she will need to have her thyroid functions followed and medications adjusted as deemed appropriate. 8. Colon perforation She is now status post surgical intervention. She continues to be followed by general surgery. She now has an NG tube in place. She is requiring daily evaluation and care of her GI process with absent evacuation of stool. 9. Sepsis syndrome This is thought due to her underlying colon perforation. She continues care by internal medicine, general surgery, and infectious disease. 10. Acute renal insufficiency Her creatinine level was markedly elevated upon admission. Her renal function has waxed and waned. 11. Hypokalemia Her potassium level has waxed and waned. It is low today. She is being evaluated by internal medicine and general surgery. Her electrolytes may need to be adjusted to bring her potassium under better control which may help benefit her cardiac rhythm with maintaining sinus rhythm, etc. 12. Anemia Her hemoglobin continues to decline. It would not be unreasonable to consider PRBC transfusions to increase her oxygen carrying capacity especially in light of her multiple medical issues. This is being arranged for her by internal medicine. This note was generated with [employer] software. It may contain incorrect words, spelling, and punctuation that were not noted in checking the note before signing.
[2018-08-01] MEDS: Insulin Lispro 100 UNIT/ML INSULN.PEN SC (18:17)
[2018-08-01 18:41] LABS: Bedside Glucose 195 mg/dL (70-110)
[2018-08-02] VITALS (14 sets, daily range): BP systolic 110–134; BP diastolic 46–65; PULSE 68–77; RESP 16–28; TEMP 36.8–37.3; O2SAT 96–100
[2018-08-02 00:05] LABS: Bedside Glucose 94 mg/dL (70-110)
[2018-08-02] MEDS: Na Biphos/Potassium Phosphate PACKET 1 PACKET GT (04:59)
[2018-08-02 06:05] LABS: Bedside Glucose 113 mg/dL (70-110)
[2018-08-02 07:11] LABS: Anion Gap 10 (5-15); BUN 52 mg/dL (7-18); BUN/Creat Ratio 42.6 RATIO (10-20); Calcium,Total 7.7 mg/dL (8.5-10.1); Chloride 107 mmol/L (98-107); Creatinine, Serum 1.22 mg/dL (0.55-1.02); EST Glomerular Filtration Rate 45 mL/min (>60); Est Glom Filt Rate - Afr Amer 54 mL/min (>60); Estimated Creatinine Clearance 33.86 ml/min; Glucose 98 mg/dL (74-106); Magnesium 2.2 mg/dL (1.6-2.6); Potassium 4.2 mmol/L (3.5-5.1); Sodium Level 137 mmol/L (136-145)
[2018-08-02 07:13] LABS: Phosphorus 3.7 mg/dL (2.5-4.9)
[2018-08-02] MEDS: Budesonide Respules 0.5 MG/2 ML AMPUL.NEB. INHALATION ×2 (07:39→20:05)
[2018-08-02 07:52] LABS: Absolute Lymphocyte Count 1.19 X10^3/ul (0.83-4.51); Absolute Neutrophil Count 7.4 X10^3/uL (2.0-7.7); Basophil# 0.05 X10^3/uL; Basophil% 0.5 % (0-1); Eosinophil# 0.27 X10^3/uL; Eosinophils% 2.6 % (0-5); Hematocrit 26.2 % (37-47); Hemoglobin 8.7 g/dl (12.0-15.0); Lymphocyte # 1.19 X10^3/ul (4.0); Lymphocyte % 11.5 % (19-41); Mean Corp Hgb Conc 33.2 g/gl (32-36); Mean Corpuscular Volume 93.2 fL (81-99); Mean Platelet Vol. 10.8 fl (6.2-12.0); Monocyte% 11.6 % (0-10); Neutrophil # 7.37 X10^3/uL (2.7-7.7); Neutrophil % 71.3 % (47-70); Platelet Count 320 K/mm3 (150-450); RBC Distribution Width CV 17.2 % (11.6-14.6); RBC Distribution Width SD 56.8 fl (35.1-43.9); Red Blood Count 2.81 M/mm3 (4.2-5.4); White Blood Count 10.3 K/mm3 (4.4-11.0)
[2018-08-02 07:55] LABS: POSITIVE COUNT YES; POSITIVE DIFFERENTIAL NO; POSITIVE MORPHOLOGY YES
[2018-08-02] MEDS: Electrolyte Solution/Peg's 4000 ML 1000 ML PO (08:10)
--- NOTE | 2018-08-02 08:14 | NURSING ---
Irrigated stoma with approx 300cc's Golytely. could feel some hard stool prior to irrigating. during irrigation, there was a moderate amount of soft brown stool out. pt tolerated well. applied changed. plan to irrigate again later today.
[2018-08-02] MEDS: Amiodarone 200 MG Tablet PO ×2 (10:31→21:55)
[2018-08-02] MEDS: Docusate Sodium 100 MG/10 ML UDC PO (10:31)
[2018-08-02] MEDS: Metoprolol Tartrate 25 MG Tablet PO ×2 (10:31→21:55)
[2018-08-02] MEDS: Heparin Injection (Vial) 5,000 UNIT/ML VIAL 5000 UNIT SC ×2 (10:32→21:55)
--- NOTE | 2018-08-02 10:38 | CASEMGMT ---
updates faxed to [facility]. Marisel WHITE [employer] SERVICE ATTENDANT
--- NOTE | 2018-08-02 11:46 | PCM.PN.SRG ---
Patient Problems: Active and Suspected Problems (Last Reviewed 03/01/18 @ 13:10 by Victoria Fu) Large bowel perforation (Acute) Septic shock (Acute) Subjective: Patient denies any nausea or abdominal pain, up in the chair, NG still put about 500 not including flushes, stoma was irrigated this morning by Janeen the wound nurse with some results, but still there is hard stool - Physical Exam General: Alert, Cooperative, No apparent distress HEENT: Atraumatic Lungs: Normal air movement Cardiovascular: Regular rate Abdomen: Soft, Non Tender, Non-Distended, - - Incision clean dry and intact with yuriy, colostomy pink?small amount of liquid brown stool in bag Vital Signs Temp Pulse Resp BP Pulse Ox 99.1 F 69 18 134/65 H 98 08/02/18 11:26 08/02/18 11:26 08/02/18 11:26 08/02/18 11:26 08/02/18 11:26 Oxygen Flow Rate (L/min) 2 Oxygen Delivery Method Room Air Weight: 195 lb 1.745 oz Body Mass Index (BMI) 29.2 Intake and Output for Last 24 Hours 07/31/18 08/01/18 08/02/18 23:59 23:59 23:59 Intake Total 2651 / 2651 3144 / 3144 642 / 642 Output Total 1785 / 1785 3255 / 3255 440 / 440 Balance 866 / 866 -111 / -111 202 / 202 Microbiology Past 72 Hours 07/28/18 12:00 Blood Culture - Preliminary Blood Culture (Wb) - Central Line No growth in 48 hours. Laboratory Tests Past 24 Hrs 08/01/18 08/02/18 08/02/18 12:16 06:05 06:32 WBC Cancelled Corrected WBC Cancelled RBC Cancelled Hgb Cancelled Hct Cancelled MCV Cancelled MCH Cancelled MCHC Cancelled RDW Cancelled RDW Differential Cancelled Plt Count Cancelled MPV Cancelled Immature Gran % (Auto) Cancelled Neut % (Auto) Cancelled Lymph % (Auto) Cancelled [place] % (Auto) Cancelled Eos % (Auto) Cancelled Baso % (Auto) Cancelled Absolute Neuts (auto) Cancelled Absolute Lymphs (auto) Cancelled Total Counted Cancelled Neutrophils % (Manual) Cancelled Band Neutrophils % Cancelled Lymphocytes % (Manual) Cancelled Monocytes % (Manual) Cancelled Eosinophils % (Manual) Cancelled Basophils % (Manual) Cancelled Metamyelocytes % Cancelled Myelocytes % Cancelled Promyelocytes % Cancelled Blast Cells % Cancelled Plasma Cell % (Manual) Cancelled Other Cells % Cancelled Nucleated RBCs/100 WBC Cancelled Differential Comment Cancelled Diff Path Review Cancelled Hypersegmented Neuts Cancelled Atypical Lymphocytes Cancelled Reactive Lymphocytes Cancelled Smudge Cells Cancelled Toxic Granulation Cancelled Dohle Bodies Cancelled Derek Rods Cancelled Platelet Estimate Cancelled Plt Morphology Comment Cancelled RBC Morphology Cancelled Polychromasia Cancelled Hypochromasia Cancelled Poikilocytosis Cancelled Basophilic Stippling Cancelled Anisocytosis Cancelled Microcytosis Cancelled Macrocytosis Cancelled Spherocytes Cancelled Sickle Cells Cancelled Target Cells Cancelled Tear Drop Cells Cancelled Ovalocytes Cancelled Stomatocytes Cancelled Fox-[place] Bodies Cancelled [place] Cells Cancelled Bite Cells Cancelled Acanthocytes (Spur) Cancelled Rouleaux Cancelled Schistocytes Cancelled Sodium 137 Potassium 4.2 Chloride 107 Carbon Dioxide 20.0 L Anion Gap 10 BUN 52 H Creatinine 1.22 H Estim Creat Clear Calc 33.86 Est GFR (MDRD) Af Amer 54 L Est GFR (MDRD) Non-Af 45 L BUN/Creatinine Ratio 42.6 H Glucose 98 Calcium 7.7 L Phosphorus Magnesium 2.2 Blood Type O POSITIVE Antibody Screen NEGATIVE Crossmatch See Detail 08/02/18 08/02/18 06:32 06:32 WBC 10.3 Corrected WBC RBC 2.81 L Hgb 8.7 L Hct 26.2 L MCV 93.2 MCH 31.0 MCHC 33.2 RDW 17.2 H RDW Differential 56.8 H Plt Count 320 MPV 10.8 Immature Gran % (Auto) 2.500 H Neut % (Auto) 71.3 H Lymph % (Auto) 11.5 L [place] % (Auto) 11.6 H Eos % (Auto) 2.6 Baso % (Auto) 0.5 Absolute Neuts (auto) 7.4 Absolute Lymphs (auto) 1.19 Total Counted Not Reportable Neutrophils % (Manual) Band Neutrophils % Lymphocytes % (Manual) Monocytes % (Manual) Eosinophils % (Manual) Basophils % (Manual) Metamyelocytes % Myelocytes % Promyelocytes % Blast Cells % Plasma Cell % (Manual) Other Cells % Nucleated RBCs/100 WBC Differential Comment Diff Path Review May foll Hypersegmented Neuts Atypical Lymphocytes Reactive Lymphocytes Smudge Cells Toxic Granulation Dohle Bodies Derek Rods Platelet Estimate Plt Morphology Comment RBC Morphology Polychromasia Hypochromasia Poikilocytosis Basophilic Stippling Anisocytosis Microcytosis Macrocytosis Spherocytes Sickle Cells Target Cells Tear Drop Cells Ovalocytes Stomatocytes Fox-[place] Bodies Compa Cells Bite Cells Acanthocytes (Spur) Rouleaux Schistocytes Sodium Potassium Chloride Carbon Dioxide Anion Gap BUN Creatinine Estim Creat Clear Calc Est GFR (MDRD) Af Amer Est GFR (MDRD) Non-Af BUN/Creatinine Ratio Glucose Calcium Phosphorus 3.7 Magnesium Blood Type Antibody Screen Crossmatch POC Glucose 08/02/18 08/01/18 08/01/18 05:33 23:56 18:10 POC Glucose 113 H 94 195 H Medical Necessity - Tobacco Use Smoking Status: Never smoker Tobacco Use: Non-smoker Assessment/Plan All Active Problems (Last Reviewed 03/01/18 @ 13:10 by Victoria Fu) Large bowel perforation (Acute) Septic shock (Acute) DEMETRA (acute kidney injury) (Acute) Pneumococcal pneumonia (Acute) SVT (supraventricular tachycardia) (Acute) 82-year-old female with pneumoperitoneum from perforated splenic flexure of the colon POD#13 s/p ex lap, L colon resection, end colostomy; septic shock-resolved, history of COPD, diabetes, tachycardia-resolved, leukocytosis 1. continue NG/TPN, will continue Golytely irrigation of stoma twice daily--will check a KUB in radiology to see amount of stool still left in the colon. 2. Tachycardia-resolved, on amiodarone per cardiology 3. Leukocytosis?improving on meropenem per ID. Continue to monitor 4. Creatinine improving. 5. Anemia?7.4, patient was transfused 1 unit of packed red blood cells, hemoglobin this morning is 8.7. Aurora Young M.D. Pager: [phone] [facility] [address] [place] [address], Outpatient [facility]ilion, [address] [place] [address] Office: [phone]
[2018-08-02 12:20] LABS: Bedside Glucose 112 mg/dL (70-110)
--- NOTE | 2018-08-02 12:43 | PN.ID_ITS ---
Patient Problems: Active and Suspected Problems (Last Reviewed 03/01/18 @ 13:10 by Victoria Fu) Large bowel perforation (Acute) Septic shock (Acute) Subjective: Feeling better, no abd pain, no fever - Physical Exam General: Alert, Cooperative, No apparent distress Lungs: Clear to auscultation, Normal air movement Cardiovascular: Regular rate, Regular Rhythm Abdomen: Soft, Non Tender, Non-Distended Skin: No rashes Vital Signs Temp Pulse Resp BP Pulse Ox 99.1 F 69 18 134/65 H 98 08/02/18 11:26 08/02/18 11:26 08/02/18 11:26 08/02/18 11:26 08/02/18 11:26 Oxygen Flow Rate (L/min) 2 Oxygen Delivery Method Room Air Weight: 88.5 kg Body Mass Index (BMI) 29.2 Intake and Output for Last 24 Hours 07/31/18 08/01/18 08/02/18 23:59 23:59 23:59 Intake Total 2651 / 2651 3144 / 3144 642 / 642 Output Total 1785 / 1785 3255 / 3255 440 / 440 Balance 866 / 866 -111 / -111 202 / 202 Microbiology Past 72 Hours 07/28/18 12:00 Blood Culture - Final Blood Culture (Wb) - Central Line No growth in 5 days. Laboratory Tests Past 24 Hrs 08/01/18 08/02/18 08/02/18 12:16 06:05 06:32 WBC Cancelled Corrected WBC Cancelled RBC Cancelled Hgb Cancelled Hct Cancelled MCV Cancelled MCH Cancelled MCHC Cancelled RDW Cancelled RDW Differential Cancelled Plt Count Cancelled MPV Cancelled Immature Gran % (Auto) Cancelled Neut % (Auto) Cancelled Lymph % (Auto) Cancelled [place] % (Auto) Cancelled Eos % (Auto) Cancelled Baso % (Auto) Cancelled Absolute Neuts (auto) Cancelled Absolute Lymphs (auto) Cancelled Total Counted Cancelled Neutrophils % (Manual) Cancelled Band Neutrophils % Cancelled Lymphocytes % (Manual) Cancelled Monocytes % (Manual) Cancelled Eosinophils % (Manual) Cancelled Basophils % (Manual) Cancelled Metamyelocytes % Cancelled Myelocytes % Cancelled Promyelocytes % Cancelled Blast Cells % Cancelled Plasma Cell % (Manual) Cancelled Other Cells % Cancelled Nucleated RBCs/100 WBC Cancelled Differential Comment Cancelled Diff Path Review Cancelled Hypersegmented Neuts Cancelled Atypical Lymphocytes Cancelled Reactive Lymphocytes Cancelled Smudge Cells Cancelled Toxic Granulation Cancelled Dohle Bodies Cancelled Derek Rods Cancelled Platelet Estimate Cancelled Plt Morphology Comment Cancelled RBC Morphology Cancelled Polychromasia Cancelled Hypochromasia Cancelled Poikilocytosis Cancelled Basophilic Stippling Cancelled Anisocytosis Cancelled Microcytosis Cancelled Macrocytosis Cancelled Spherocytes Cancelled Sickle Cells Cancelled Target Cells Cancelled Tear Drop Cells Cancelled Ovalocytes Cancelled Stomatocytes Cancelled [place] Bodies Cancelled Beccaria Cells Cancelled Bite Cells Cancelled Acanthocytes (Spur) Cancelled Rouleaux Cancelled Schistocytes Cancelled Sodium 137 Potassium 4.2 Chloride 107 Carbon Dioxide 20.0 L Anion Gap 10 BUN 52 H Creatinine 1.22 H Estim Creat Clear Calc 33.86 Est GFR (MDRD) Af Amer 54 L Est GFR (MDRD) Non-Af 45 L BUN/Creatinine Ratio 42.6 H Glucose 98 Calcium 7.7 L Phosphorus Magnesium 2.2 Blood Type O POSITIVE Antibody Screen NEGATIVE Crossmatch See Detail 08/02/18 08/02/18 06:32 06:32 WBC 10.3 Corrected WBC RBC 2.81 L Hgb 8.7 L Hct 26.2 L MCV 93.2 MCH 31.0 MCHC 33.2 RDW 17.2 H RDW Differential 56.8 H Plt Count 320 MPV 10.8 Immature Gran % (Auto) 2.500 H Neut % (Auto) 71.3 H Lymph % (Auto) 11.5 L [place] % (Auto) 11.6 H Eos % (Auto) 2.6 Baso % (Auto) 0.5 Absolute Neuts (auto) 7.4 Absolute Lymphs (auto) 1.19 Total Counted Not Reportable Neutrophils % (Manual) Band Neutrophils % Lymphocytes % (Manual) Monocytes % (Manual) Eosinophils % (Manual) Basophils % (Manual) Metamyelocytes % Myelocytes % Promyelocytes % Blast Cells % Plasma Cell % (Manual) Other Cells % Nucleated RBCs/100 WBC Differential Comment Diff Path Review May foll Hypersegmented Neuts Atypical Lymphocytes Reactive Lymphocytes Smudge Cells Toxic Granulation Dohle Bodies Derek Rods Platelet Estimate Plt Morphology Comment RBC Morphology Polychromasia Hypochromasia Poikilocytosis Basophilic Stippling Anisocytosis Microcytosis Macrocytosis Spherocytes Sickle Cells Target Cells Tear Drop Cells Ovalocytes Stomatocytes [place] Bodies Beccaria Cells Bite Cells Acanthocytes (Spur) Rouleaux Schistocytes Sodium Potassium Chloride Carbon Dioxide Anion Gap BUN Creatinine Estim Creat Clear Calc Est GFR (MDRD) Af Amer Est GFR (MDRD) Non-Af BUN/Creatinine Ratio Glucose Calcium Phosphorus 3.7 Magnesium Blood Type Antibody Screen Crossmatch POC Glucose 08/02/18 08/02/18 08/01/18 12:11 05:33 23:56 POC Glucose 112 H 113 H 94 08/01/18 18:10 POC Glucose 195 H Medical Necessity - Tobacco Use Smoking Status: Never smoker Tobacco Use: Non-smoker Route of nutrition/ use of supplements: [] Nutritional Intake: [] IV Site: [] Benitez Catheter: [] - Assessment/Plan Antibiotics: [] Assessment/Plan: [] Active and Suspected Problems (Last Reviewed 03/01/18 @ 13:10 by Victoria Fu) Large bowel perforation (Acute) Septic shock (Acute) Septic shock improved. Single bcx with clostridium and prior surg cx with ecoli, Acinetobacter, and multiple anaerobes. Her acinetobacter was R to unasyn. CT showed no abscess. Suspect most likely explanation of persistent wbc is hard stool and little ostomy output. Covering for pneumonia as well. Wbc now normal. Day 6 of meropenem, plan on stopping in next few days. Will follow
--- NOTE | 2018-08-02 13:00 | RAD_ITS ---
STUDY: X-RAY - ABDOMEN/PELVIS REASON FOR EXAM: Female, 82 years old. Prior laparotomy. Possible obstruction. Colostomy placement. TECHNIQUE: AP supine and decubitus views of the abdomen and pelvis. COMPARISON: Comparison is made with prior study dated July 29, 2018. FINDINGS: A nasogastric tube is seen. The tip is in the body of the stomach. There is an unremarkable bowel gas pattern. Gas and fecal material are seen in the rectum. There is no demonstrated free abdominal air. The visualized liver, spleen and kidneys are grossly normal in size and morphology. Normal soft tissue structures. There are diffuse degenerative changes of the visualized lumbar spine. The patient is status post bilateral hip replacement. RAD/Abd Inc Decub and/or Erect IMPRESSION: Nonspecific bowel gas pattern. Electronically Signed: Jourdan De La Fuente MD at 15:55 EDT Tel [phone], Service support ,
--- NOTE | 2018-08-02 13:14 | PN.CARD_ITS ---
Subjectve: The patient remains with concerns of her underlying gastrointestinal status, NG tube, requiring twice daily evaluation and care of her colostomy. There is been no new acute cardiovascular issues or concerns. Objective: Vital Signs Temp Pulse Resp BP Pulse Ox 99.1 F 69 18 134/65 H 98 08/02/18 11:26 08/02/18 11:26 08/02/18 11:26 08/02/18 11:26 08/02/18 11:26 Oxygen Flow Rate (L/min) 2 Oxygen Delivery Method Room Air Weight: 195 lb 1.745 oz Body Mass Index (BMI) 29.2 Intake and Output for Last 24 Hours 07/31/18 08/01/18 08/02/18 23:59 23:59 23:59 Intake Total 2651 / 2651 3144 / 3144 1498 / 1498 Output Total 1785 / 1785 3255 / 3255 990 / 990 Balance 866 / 866 -111 / -111 508 / 508 Lungs: Clear to auscultation Cardiovascular: Regular Rhythm, Normal S1, Normal S2 Abdomen: Hypoactive Bowel Sounds 08/02/18 06:05: WBC Cancelled, Corrected WBC Cancelled, RBC Cancelled, Hgb Cancelled, Hct Cancelled, MCV Cancelled, MCH Cancelled, MCHC Cancelled, RDW Cancelled, RDW Differential Cancelled, Plt Count Cancelled, MPV Cancelled, Immature Gran % (Auto) Cancelled, Neut % (Auto) Cancelled, Lymph % (Auto) Cancelled, [place] % (Auto) Cancelled, Eos % (Auto) Cancelled, Baso % (Auto) Cancelled, Absolute Neuts (auto) Cancelled, Total Counted Cancelled, Neutrophils % (Manual) Cancelled, Band Neutrophils % Cancelled, Lymphocytes % (Manual) Cancelled, Monocytes % (Manual) Cancelled, Eosinophils % (Manual) Cancelled, Basophils % (Manual) Cancelled, Metamyelocytes % Cancelled, Myelocytes % Cancelled, Promyelocytes % Cancelled, Blast Cells % Cancelled, Plasma Cell % (Manual) Cancelled, Other Cells % Cancelled 08/02/18 06:32: Sodium 137, Potassium 4.2, Chloride 107, Carbon Dioxide 20.0 L, Anion Gap 10, BUN 52 H, Creatinine 1.22 H, Est GFR (MDRD) Af Amer 54 L, Est GFR (MDRD) Non-Af 45 L, BUN/Creatinine Ratio 42.6 H, Glucose 98, Calcium 7.7 L, Magnesium 2.2 08/02/18 06:32: Phosphorus 3.7 08/02/18 06:32: WBC 10.3, RBC 2.81 L, Hgb 8.7 L, Hct 26.2 L, MCV 93.2, MCH 31.0, MCHC 33.2, RDW 17.2 H, RDW Differential 56.8 H, Plt Count 320, MPV 10.8, Immature Gran % (Auto) 2.500 H, Neut % (Auto) 71.3 H, Lymph % (Auto) 11.5 L, [place] % (Auto) 11.6 H, Eos % (Auto) 2.6, Baso % (Auto) 0.5, Absolute Neuts (auto) 7.4, Total Counted Not Reportable Rhythm: Sinus rhythm Medical Necessity - Tobacco Use Smoking Status: Never smoker Tobacco Use: Non-smoker Assessment/Plan 1. Supraventricular tachycardia The patient does not appear to have had recurrent PSVT since yesterday. She is continuing her beta-katty therapy and her antiarrhythmic therapy via her NG tube. Again, over time, when she is improved from her noncardiovascular condition she may need to be considered for EP study for EPS/RFA. With respect to her antiarrhythmic therapy it may be reasonable to continue her on amiodarone 200 twice daily times 2 weeks and unless needed otherwise to decrease her dose to 200 mg daily. 2. Takotsubo syndrome The patient has a history of an underlying non-CAD related cardiomyopathy compatible with a Takotsubo syndrome lash apical ballooning interim. Over time her LV systolic function has improved. Her recent noninvasive studies would suggest preserved overall LV systolic function and no obvious evidence of myocardial ischemia to suggest the development of underlying CAD. 3. CAD The patient has a history of LAD mild calcification as noted above. She was not described as having angiographically significant appearing CAD. Her recent pharmacologic stress nuclear imaging study would not suggest any obvious hemodynamically significant CAD as she had no obvious evidence of ongoing myocardial ischemia. Thus she should continue risk factor evaluation care as deemed appropriate when she is able. 4. Hyperlipidemia The patient should continue evaluation and medical management as deemed appropriate for her age when she is able. 5. Diabetes mellitus She will need to continue under the care of internal medicine for this. 6. COPD She is being evaluated by internal medicine and pulmonology. 7. Hypothyroidism Again she will need to continue under the care of internal medicine for this. If she remains on amiodarone she will need to have her thyroid functions followed and medications adjusted as deemed appropriate. 8. Colon perforation She is now status post surgical intervention. She continues to be followed by general surgery. She now has an NG tube in place. She is requiring daily evaluation and care of her GI process with absent evacuation of stool. 9. Sepsis syndrome This is thought due to her underlying colon perforation. She continues care by internal medicine, general surgery, and infectious disease. 10. Acute renal insufficiency Her creatinine level was markedly elevated upon admission. Her renal function has waxed and waned. 11. Hypokalemia Her potassium level has waxed and waned. It appears to have improved. 12. Anemia Her hemoglobin continues to decline. She has received PRBCs. Her H&H has improved. Overall, from a cardiovascular standpoint, she will continue her current evaluation and care. It does not appear she requires additional cardiac diagnostic studies or therapeutic intervention at this time. Her cardiovascular status can be reassessed as needed. She will need continued future outpatient cardiovascular follow-up as deemed appropriate. This note was generated with [employer] dictation software. It may contain incorrect words, spelling, and punctuation that were not noted in checking the note before signing.
--- NOTE | 2018-08-02 15:18 | NURSING ---
Irrigated stoma with approx 360 cc's Golytely. could still feel some stool, but felt softer. some small pieces of stool came out during irrigation. once the red rubber catheter was removed and the appliance was reapplied, pt had approx 120 cc's soft brown stool out. pouch emptied at this time. abdomen is still slightly distended. pt denies pain or nausea. the surgical incision with small amount of serosanguineous drainage. cleansed incision with NS and pat dry. applied a dry dressing. plan to continue irrigations on the the am. pt tolerated well.
[2018-08-02] MEDS: NYSTATIN 500,000 UNIT/5 ML UDC 500000 UNIT PO (16:41)
--- NOTE | 2018-08-02 16:55 | PCM.PN.HOSP ---
Patient Problems: Active and Suspected Problems (Last Reviewed 03/01/18 @ 13:10 by Victoria Fu) Large bowel perforation (Acute) Septic shock (Acute) Subjective: Patient was seen and examined. No new complaints. Denies any chest pain or dizziness or pain in the abdomen Undergoing stoma flushes Vitals/I&O's: Vital Signs Temp Pulse Resp BP Pulse Ox 99.1 F 68 18 134/65 H 98 08/02/18 11:26 08/02/18 14:57 08/02/18 11:26 08/02/18 11:26 08/02/18 11:26 Oxygen Flow Rate (L/min) 2 Oxygen Delivery Method Room Air Weight: 88.5 kg Body Mass Index (BMI) 29.2 Intake and Output for Last 24 Hours 07/31/18 08/01/18 08/02/18 23:59 23:59 23:59 Intake Total 2651 / 2651 3144 / 3144 1548 / 1548 Output Total 1785 / 1785 3255 / 3255 990 / 990 Balance 866 / 866 -111 / -111 558 / 558 General: Alert, Oriented x3, Cooperative, No apparent distress, - HEENT: Atraumatic, PERRLA, EOMI, Normocephalic Oral: Moist Mucosa Neck: Supple, No JVD, Negative Carotid Bruits Lungs: Clear to auscultation, Normal air movement, Diminished - at the lung bases Cardiovascular: Regular rate, Regular Rhythm, Normal S1, Normal S2, No murmurs Abdomen: Bowel Sounds Present, Soft, Non Tender, Non-Distended, No Hepato-splenomegaly, Hypoactive Bowel Sounds, - - Colostomy bag in situ, liquid brownish green feces in bag, midline yuriy in situ, mild erythema of the incision, no discharge Extremities: No edema, Capillary Refill Less than 3 Seconds Skin: No rashes, No breakdown Musculoskeletal: No Tenderness to Palpation of Joints or Extremities Lymphatic: No Cervical, Supraclavicular, or Inguinal Adenopathy Neurological: Cranial nerves II-XII grossly intact, Neuro grossly intact Psych/Mental Status: Normal Affect, Appropriate Microbiology Past 72 Hours 07/28/18 12:00 Blood Culture (Wb) - Central Line Blood Culture - Final No growth in 5 days. Laboratory Results 08/01/18 12:16: Blood Type O POSITIVE, Antibody Screen NEGATIVE, Crossmatch See Detail 08/01/18 18:10: POC Glucose 195 H 08/01/18 23:56: POC Glucose 94 08/02/18 05:33: POC Glucose 113 H 08/02/18 06:05: WBC Cancelled, Corrected WBC Cancelled, RBC Cancelled, Hgb Cancelled, Hct Cancelled, MCV Cancelled, MCH Cancelled, MCHC Cancelled, RDW Cancelled, RDW Differential Cancelled, Plt Count Cancelled, MPV Cancelled, Immature Gran % (Auto) Cancelled, Neut % (Auto) Cancelled, Lymph % (Auto) Cancelled, [place] % (Auto) Cancelled, Eos % (Auto) Cancelled, Baso % (Auto) Cancelled, Absolute Neuts (auto) Cancelled, Absolute Lymphs (auto) Cancelled, Total Counted Cancelled, Neutrophils % (Manual) Cancelled, Band Neutrophils % Cancelled, Lymphocytes % (Manual) Cancelled, Monocytes % (Manual) Cancelled, Eosinophils % (Manual) Cancelled, Basophils % (Manual) Cancelled, Metamyelocytes % Cancelled, Myelocytes % Cancelled, Promyelocytes % Cancelled, Blast Cells % Cancelled, Plasma Cell % (Manual) Cancelled, Other Cells % Cancelled, Nucleated RBCs/100 WBC Cancelled, Differential Comment Cancelled, Diff Path Review Cancelled, Hypersegmented Neuts Cancelled, Atypical Lymphocytes Cancelled, Reactive Lymphocytes Cancelled, Smudge Cells Cancelled, Toxic Granulation Cancelled, Dohle Bodies Cancelled, Derek Rods Cancelled, Platelet Estimate Cancelled, Plt Morphology Comment Cancelled, RBC Morphology Cancelled, Polychromasia Cancelled, Hypochromasia Cancelled, Poikilocytosis Cancelled, Basophilic Stippling Cancelled, Anisocytosis Cancelled, Microcytosis Cancelled, Macrocytosis Cancelled, Spherocytes Cancelled, Sickle Cells Cancelled, Target Cells Cancelled, Tear Drop Cells Cancelled, Ovalocytes Cancelled, Stomatocytes Cancelled, [place] Bodies Cancelled, Compa Cells Cancelled, Bite Cells Cancelled, Acanthocytes (Spur) Cancelled, Rouleaux Cancelled, Schistocytes Cancelled 08/02/18 06:32: Sodium 137, Potassium 4.2, Chloride 107, Carbon Dioxide 20.0 L, Anion Gap 10, BUN 52 H, Creatinine 1.22 H, Estim Creat Clear Calc 33.86, Est GFR (MDRD) Af Amer 54 L, Est GFR (MDRD) Non-Af 45 L, BUN/Creatinine Ratio 42.6 H, Glucose 98, Calcium 7.7 L, Magnesium 2.2 08/02/18 06:32: Phosphorus 3.7 08/02/18 06:32: WBC 10.3, RBC 2.81 L, Hgb 8.7 L, Hct 26.2 L, MCV 93.2, MCH 31.0, MCHC 33.2, RDW 17.2 H, RDW Differential 56.8 H, Plt Count 320, MPV 10.8, Immature Gran % (Auto) 2.500 H, Neut % (Auto) 71.3 H, Lymph % (Auto) 11.5 L, [place] % (Auto) 11.6 H, Eos % (Auto) 2.6, Baso % (Auto) 0.5, Absolute Neuts (auto) 7.4, Absolute Lymphs (auto) 1.19, Total Counted Not Reportable, Diff Path Review March08/02/18 12:11: POC Glucose 112 H Current Medications Acetaminophen (Tylenol) 650 mg PO Q6H PRN PRN PRN Reason: Mild Pain (1-3)/Temp > 100.7 F Albuterol/Ipratropium (Duoneb) 3 ml INHALATION Q4H PRN PRN PRN Reason: SHORTNESS OF BREATH Amiodarone HCl (Cordarone) 200 mg PO BID [facility] Stop: 08/08/18 22:01 Amiodarone HCl (Cordarone) 200 mg PO DAILY [facility] Budesonide (Pulmicort Aerosol) 0.5 mg INHALATION BID.RT [facility] Last Admin: 08/02/18 07:39 Dose: 0.5 mg Dextrose (D50w Syringe) 0 gm IV X1 PRN; Protocol PRN Reason: Hypoglycemia Docusate Sodium (Colace Syrup) 100 mg PO DAILY [facility] Last Admin: 08/02/18 10:31 Dose: 100 mg Glucagon () 1 mg IM .X1 PRN PRN Reason: Hypoglycemia Heparin Sodium (Porcine) (Heparin Na) 5,000 unit SC BID [facility] Last Admin: 08/02/18 10:32 Dose: 5,000 unit Sodium Chloride () 250 mls @ 15 mls/hr IV .[id number] PRN PRN Reason: SALINE FLUSH Last Admin: 07/21/18 09:47 Dose: 15 mls/hr Sodium Chloride () 250 mls @ 15 mls/hr IV .[id number] PRN PRN Reason: SALINE FLUSH Meropenem 500 mg/ Sodium (Chloride) 60 mls @ 100 mls/hr IV Q8 [facility] Last Admin: 08/02/18 13:47 Dose: 100 mls/hr Pantoprazole Sodium 40 mg/ (Sodium Chloride) 110 mls @ 330 mls/hr IV Q24 [facility] Last Admin: 08/02/18 10:32 Dose: 330 mls/hr Multivitamins 5 ml/ Chromium/Copper/Manganese/Seleni/Zn 0.5 ml/ Folic Acid 0.5 mg/ Sodium Acetate 40 meq/ Sodium Phosphate 12 mm/ Potassium Chloride 40 meq/ Magnesium Sulfate 1 gm/ Insulin Human Lispro 70 unit/ Amino Acids 1,052.3 mls @ 84 mls/hr IV .[id number] [facility]; Protocol Stop: 08/02/18 17:03 Last Admin: 08/02/18 05:56 Dose: 84 mls/hr Multivitamins 5 ml/ Chromium/Copper/Manganese/Seleni/Zn 0.5 ml/ Folic Acid 0.5 mg/ Sodium Acetate 40 meq/ Sodium Phosphate 12 mm/ Potassium Chloride 40 meq/ Magnesium Sulfate 1 gm/ Insulin Human Lispro 50 unit/ Amino Acids 1,052.1 mls @ 84 mls/hr IV .[id number] [facility]; Protocol Stop: 08/03/18 17:03 Last Admin: 08/02/18 16:36 Dose: 84 mls/hr Insulin Glargine (Lantus (Bkc)) 10 units SC [facility] Last Admin: 08/02/18 05:58 Dose: 10 units Insulin Human Lispro (Humalog Kwikpen (Bkc)) 0 unit SC Q6 [facility]; Protocol Last Admin: 08/02/18 12:37 Dose: Not Given Magnesium Hydroxide (Milk Of Magnesia) 30 ml PO DAILY PRN PRN PRN Reason: Constipation Metoprolol Tartrate (Lopressor (Beta Jose)) 5 mg IV Q6 PRN PRN Reason: TO CONTROL HEART RATE Last Admin: 07/21/18 19:35 Dose: 2.5 mg Metoprolol Tartrate (Lopressor (Beta Jose)) 25 mg PO BID [facility] Last Admin: 08/02/18 10:31 Dose: 25 mg Morphine Sulfate () 1 mg IV Q4H PRN PRN PRN Reason: SEVERE PAIN (6-10) Nystatin (Nystatin) 500,000 unit PO 4X/DAY [facility] Last Admin: 08/02/18 16:41 Dose: 500,000 unit Ondansetron HCl (Zofran) 4 mg IV Q8H PRN PRN PRN Reason: NAUSEA Last Admin: 07/29/18 06:22 Dose: 4 mg Sodium Chloride () 10 - 40 ml IV UD PRN PRN Reason: MULTILUMEN/HICMAN CATH FLUSH Last Admin: 08/02/18 16:36 Dose: 10 ml Medical Necessity - Tobacco Use Smoking Status: Never smoker Tobacco Use: Non-smoker Assessment/Plan All Active Problems (Last Reviewed 03/01/18 @ 13:10 by Victoria Fu) Large bowel perforation (Acute) Septic shock (Acute) DEMETRA (acute kidney injury) (Acute) Pneumococcal pneumonia (Acute) SVT (supraventricular tachycardia) (Acute) 82 year old F with multiple comorbidities significant for Takusubo cardiomyopathy with SVTs, hypertension, type II DM, resident in a intermediate admitted with complaints of confusion and not feeling well as well as being diaphoretic. 1. Septic shock secondary to acute peritonitis secondary to perforated descending colon, status post surgery, resolved 2. Clostridium clostridia for me single blood culture, repeat cultures have been negative, to call cultures growing E. coli, Acinetobacter multiple anaerobes, recent abdominal CT on 07/28/18 showed no abscess abscess, on meropenem, ID following 3. Post-op/ICU delirium, resolved 4. 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 Type II DM, blood sugars are fairly stable, continue on Accu-Cheks with insulin sliding scale 6. DEMETRA, creatinine continues to improve 7. Hypokalemia, hypomagnesemia, replaced 8. History of SVT, in NSR, on amiodarone, neurology following 9. Hypertension, controlled, will continue with prn metoprolol 10. COPD, not in acute exacerbation 11. Hypothyroidism, off Synthroid, on account of NPO status, may need to replace IV if NPO persists 12. DVT PPx- Heparin SC Code Visit Inpatient E&M: 66243 Subs Hosp L2
--- NOTE | 2018-08-02 17:02 | PN_ITS ---
Patient Problems: Active and Suspected Problems (Last Reviewed 03/01/18 @ 13:10 by Victoria Fu) Large bowel perforation (Acute) Septic shock (Acute) Subjective: Patient was seen and examined. No new complaints. Denies any chest pain or dizziness or pain in the abdomen Undergoing stoma flushes Vitals/I&O's: Vital Signs Temp Pulse Resp BP Pulse Ox 99.1 F 68 18 134/65 H 98 08/02/18 11:26 08/02/18 14:57 08/02/18 11:26 08/02/18 11:26 08/02/18 11:26 Oxygen Flow Rate (L/min) 2 Oxygen Delivery Method Room Air Weight: 88.5 kg Body Mass Index (BMI) 29.2 Intake and Output for Last 24 Hours 07/31/18 08/01/18 08/02/18 23:59 23:59 23:59 Intake Total 2651 / 2651 3144 / 3144 1548 / 1548 Output Total 1785 / 1785 3255 / 3255 990 / 990 Balance 866 / 866 -111 / -111 558 / 558 General: Alert, Oriented x3, Cooperative, No apparent distress, - HEENT: Atraumatic, PERRLA, EOMI, Normocephalic Oral: Moist Mucosa Neck: Supple, No JVD, Negative Carotid Bruits Lungs: Clear to auscultation, Normal air movement, Diminished - at the lung bases Cardiovascular: Regular rate, Regular Rhythm, Normal S1, Normal S2, No murmurs Abdomen: Bowel Sounds Present, Soft, Non Tender, Non-Distended, No Hepato- splenomegaly, Hypoactive Bowel Sounds, - - Colostomy bag in situ, liquid brownish green feces in bag, midline yuriy in situ, mild erythema of the incision, no discharge Extremities: No edema, Capillary Refill Less than 3 Seconds Skin: No rashes, No breakdown Musculoskeletal: No Tenderness to Palpation of Joints or Extremities Lymphatic: No Cervical, Supraclavicular, or Inguinal Adenopathy Neurological: Cranial nerves II-XII grossly intact, Neuro grossly intact Psych/Mental Status: Normal Affect, Appropriate Microbiology Past 72 Hours 07/28/18 12:00 Blood Culture (Wb) - Central Line Blood Culture - Final No growth in 5 days. Laboratory Results 08/01/18 12:16: Blood Type O POSITIVE, Antibody Screen NEGATIVE, Crossmatch See Detail 08/01/18 18:10: POC Glucose 195 H 08/01/18 23:56: POC Glucose 94 08/02/18 05:33: POC Glucose 113 H 08/02/18 06:05: WBC Cancelled, Corrected WBC Cancelled, RBC Cancelled, Hgb Cancelled, Hct Cancelled, MCV Cancelled, MCH Cancelled, MCHC Cancelled, RDW Cancelled, RDW Differential Cancelled, Plt Count Cancelled, MPV Cancelled, Immature Gran % (Auto) Cancelled, Neut % (Auto) Cancelled, Lymph % (Auto) Cancelled, [place] % (Auto) Cancelled, Eos % (Auto) Cancelled, Baso % (Auto) Cancelled, Absolute Neuts (auto) Cancelled, Absolute Lymphs (auto) Cancelled, Total Counted Cancelled, Neutrophils % (Manual) Cancelled, Band Neutrophils % Cancelled, Lymphocytes % (Manual) Cancelled, Monocytes % (Manual) Cancelled, Eosinophils % (Manual) Cancelled, Basophils % (Manual) Cancelled, Metamyelocytes % Cancelled, Myelocytes % Cancelled, Promyelocytes % Cancelled, Blast Cells % Cancelled, Plasma Cell % (Manual) Cancelled, Other Cells % Cancelled, Nucleated RBCs/100 WBC Cancelled, Differential Comment Cancelled, Diff Path Review Cancelled, Hypersegmented Neuts Cancelled, Atypical Lymphocytes Cancelled, Reactive Lymphocytes Cancelled, Smudge Cells Cancelled, Toxic Granulation Cancelled, Dohle Bodies Cancelled, [place] Rods Cancelled, Platelet Estimate Cancelled, Plt Morphology Comment Cancelled, RBC Morphology Cancelled, Polychromasia Cancelled, Hypochromasia Cancelled, Poikilocytosis Cancelled, Basophilic Stippling Cancelled, Anisocytosis Cancelled, Microcytosis Cancelled, Macrocytosis Cancelled, Spherocytes Cancelled, Sickle Cells Cancelled, Target Cells Cancelled, Tear Drop Cells Cancelled, Ovalocytes Cancelled, Stomatocytes Cancelled, [place] Bodies Cancelled, Compa Cells Cancelled, Bite Cells Cancelled, Acanthocytes (Spur) Cancelled, Rouleaux Cancelled, Schistocytes Cancelled 08/02/18 06:32: Sodium 137, Potassium 4.2, Chloride 107, Carbon Dioxide 20.0 L, Anion Gap 10, BUN 52 H, Creatinine 1.22 H, Estim Creat Clear Calc 33.86, Est GFR (MDRD) Af Amer 54 L, Est GFR (MDRD) Non-Af 45 L, BUN/Creatinine Ratio 42.6 H, Glucose 98, Calcium 7.7 L, Magnesium 2.2 08/02/18 06:32: Phosphorus 3.7 08/02/18 06:32: WBC 10.3, RBC 2.81 L, Hgb 8.7 L, Hct 26.2 L, MCV 93.2, MCH 31.0, MCHC 33.2, RDW 17.2 H, RDW Differential 56.8 H, Plt Count 320, MPV 10.8, Immature Gran % (Auto) 2.500 H, Neut % (Auto) 71.3 H, Lymph % (Auto) 11.5 L, [place] % (Auto) 11.6 H, Eos % (Auto) 2.6, Baso % (Auto) 0.5, Absolute Neuts (auto) 7.4, Absolute Lymphs (auto) 1.19, Total Counted Not Reportable, Diff Path Review March08/02/18 12:11: POC Glucose 112 H Current Medications Acetaminophen (Tylenol) 650 mg PO Q6H PRN PRN PRN Reason: Mild Pain (1-3)/Temp > 100.7 F Albuterol/Ipratropium (Duoneb) 3 ml INHALATION Q4H PRN PRN PRN Reason: SHORTNESS OF BREATH Amiodarone HCl (Cordarone) 200 mg PO BID [facility] Stop: 08/08/18 22:01 Amiodarone HCl (Cordarone) 200 mg PO DAILY [facility] Budesonide (Pulmicort Aerosol) 0.5 mg INHALATION BID.RT [facility] Last Admin: 08/02/18 07:39 Dose: 0.5 mg Dextrose (D50w Syringe) 0 gm IV X1 PRN; Protocol PRN Reason: Hypoglycemia Docusate Sodium (Colace Syrup) 100 mg PO DAILY [facility] Last Admin: 08/02/18 10:31 Dose: 100 mg Glucagon () 1 mg IM .X1 PRN PRN Reason: Hypoglycemia Heparin Sodium (Porcine) (Heparin Na) 5,000 unit SC BID [facility] Last Admin: 08/02/18 10:32 Dose: 5,000 unit Sodium Chloride () 250 mls @ 15 mls/hr IV .[id number] PRN PRN Reason: SALINE FLUSH Last Admin: 07/21/18 09:47 Dose: 15 mls/hr Sodium Chloride () 250 mls @ 15 mls/hr IV .[id number] PRN PRN Reason: SALINE FLUSH Meropenem 500 mg/ Sodium (Chloride) 60 mls @ 100 mls/hr IV Q8 [facility] Last Admin: 08/02/18 13:47 Dose: 100 mls/hr Pantoprazole Sodium 40 mg/ (Sodium Chloride) 110 mls @ 330 mls/hr IV Q24 [facility] Last Admin: 08/02/18 10:32 Dose: 330 mls/hr Multivitamins 5 ml/ Chromium/Copper/Manganese/Seleni/Zn 0.5 ml/ Folic Acid 0.5 mg/ Sodium Acetate 40 meq/ Sodium Phosphate 12 mm/ Potassium Chloride 40 meq/ Magnesium Sulfate 1 gm/ Insulin Human Lispro 70 unit/ Amino Acids 1,052.3 mls @ 84 mls/hr IV .[id number] [facility]; Protocol Stop: 08/02/18 17:03 Last Admin: 08/02/18 05:56 Dose: 84 mls/hr Multivitamins 5 ml/ Chromium/Copper/Manganese/Seleni/Zn 0.5 ml/ Folic Acid 0.5 mg/ Sodium Acetate 40 meq/ Sodium Phosphate 12 mm/ Potassium Chloride 40 meq/ Magnesium Sulfate 1 gm/ Insulin Human Lispro 50 unit/ Amino Acids 1,052.1 mls @ 84 mls/hr IV .[id number] [facility]; Protocol Stop: 08/03/18 17:03 Last Admin: 08/02/18 16:36 Dose: 84 mls/hr Insulin Glargine (Lantus (Bkc)) 10 units SC [facility] Last Admin: 08/02/18 05:58 Dose: 10 units Insulin Human Lispro (Humalog Kwikpen (Bkc)) 0 unit SC Q6 [facility]; Protocol Last Admin: 08/02/18 12:37 Dose: Not Given Magnesium Hydroxide (Milk Of Magnesia) 30 ml PO DAILY PRN PRN PRN Reason: Constipation Metoprolol Tartrate (Lopressor (Beta Jose)) 5 mg IV Q6 PRN PRN Reason: TO CONTROL HEART RATE Last Admin: 07/21/18 19:35 Dose: 2.5 mg Metoprolol Tartrate (Lopressor (Beta Jose)) 25 mg PO BID [facility] Last Admin: 08/02/18 10:31 Dose: 25 mg Morphine Sulfate () 1 mg IV Q4H PRN PRN PRN Reason: SEVERE PAIN (6-10) Nystatin (Nystatin) 500,000 unit PO 4X/DAY [facility] Last Admin: 08/02/18 16:41 Dose: 500,000 unit Ondansetron HCl (Zofran) 4 mg IV Q8H PRN PRN PRN Reason: NAUSEA Last Admin: 07/29/18 06:22 Dose: 4 mg Sodium Chloride () 10 - 40 ml IV UD PRN PRN Reason: MULTILUMEN/HICMAN CATH FLUSH Last Admin: 08/02/18 16:36 Dose: 10 ml Medical Necessity - Tobacco Use Smoking Status: Never smoker Tobacco Use: Non-smoker Assessment/Plan All Active Problems (Last Reviewed 03/01/18 @ 13:10 by Victoria Fu) Large bowel perforation (Acute) Septic shock (Acute) DEMETRA (acute kidney injury) (Acute) Pneumococcal pneumonia (Acute) SVT (supraventricular tachycardia) (Acute) 82 year old F with multiple comorbidities significant for Takusubo cardiomyopathy with SVTs, hypertension, type II DM, resident in a fdc admitted with complaints of confusion and not feeling well as well as being diaphoretic. 1. Septic shock secondary to acute peritonitis secondary to perforated descending colon, status post surgery, resolved 2. Clostridium clostridia for me single blood culture, repeat cultures have been negative, to call cultures growing E. coli, Acinetobacter multiple anaerobes, recent abdominal CT on 07/28/18 showed no abscess abscess, on meropenem, ID following 3. Post-op/ICU delirium, resolved 4. 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 Type II DM, blood sugars are fairly stable, continue on Accu-Cheks with insulin sliding scale 6. DEMETRA, creatinine continues to improve 7. Hypokalemia, hypomagnesemia, replaced 8. History of SVT, in NSR, on amiodarone, neurology following 9. Hypertension, controlled, will continue with prn metoprolol 10. COPD, not in acute exacerbation 11. Hypothyroidism, off Synthroid, on account of NPO status, may need to replace IV if NPO persists 12. DVT PPx- Heparin SC Code Visit Inpatient E&M: 08748 Subs Hosp L2
[2018-08-02 18:10] LABS: Bedside Glucose 140 mg/dL (70-110)
[2018-08-03] VITALS (13 sets, daily range): BP systolic 125–137; BP diastolic 51–65; PULSE 67–80; RESP 16–18; TEMP 36.7–37.1; O2SAT 96–99
[2018-08-03 00:31] LABS: Bedside Glucose 140 mg/dL (70-110)
[2018-08-03 05:45] LABS: Bedside Glucose 143 mg/dL (70-110)
--- NOTE | 2018-08-03 08:08 | PCM.PN.SRG ---
Patient Problems: Active and Suspected Problems (Last Reviewed 03/01/18 @ 13:10 by Victoria Fu) Large bowel perforation (Acute) Septic shock (Acute) Subjective: Patient denies any nausea or abdominal pain, some flatus in her colostomy bag, irrigated with GoLYTELY twice daily with moderate soft stool results - Physical Exam General: Alert, Cooperative, No apparent distress HEENT: Atraumatic Abdomen: Soft, Non Tender, Distended - Mild, - - Incision clean dry and intact with yuriy, colostomy pink?flatus and small amount soft stool in the colostomy bag Vital Signs Temp Pulse Resp BP Pulse Ox 98.7 F 72 16 129/51 H 99 08/03/18 03:35 08/03/18 07:24 08/03/18 03:35 08/03/18 03:35 08/03/18 03:35 Oxygen Flow Rate (L/min) 2 Oxygen Delivery Method Room Air Weight: 195 lb 1.745 oz Body Mass Index (BMI) 29.2 Intake and Output for Last 24 Hours 08/01/18 08/02/18 08/03/18 23:59 23:59 23:59 Intake Total 3144 / 3144 2133 / 2133 1041 / 1041 Output Total 3255 / 3255 1690 / 1690 1193 / 1193 Balance -111 / -111 443 / 443 -152 / -152 Microbiology Past 72 Hours 07/28/18 12:00 Blood Culture - Final Blood Culture (Wb) - Central Line No growth in 5 days. POC Glucose 08/03/18 08/03/18 08/02/18 05:34 00:21 17:59 POC Glucose 143 H 140 H 140 H 08/02/18 12:11 POC Glucose 112 H Medical Necessity - Tobacco Use Smoking Status: Never smoker Tobacco Use: Non-smoker Assessment/Plan All Active Problems (Last Reviewed 03/01/18 @ 13:10 by Victoria Fu) Large bowel perforation (Acute) Septic shock (Acute) DEMETRA (acute kidney injury) (Acute) Pneumococcal pneumonia (Acute) SVT (supraventricular tachycardia) (Acute) 82-year-old female with pneumoperitoneum from perforated splenic flexure of the colon POD#14 s/p ex lap, L colon resection, end colostomy; septic shock-resolved, history of COPD, diabetes, tachycardia-resolved, leukocytosis 1. continue NG/TPN, will continue Golytely irrigation of stoma twice daily--KUB still showed air in the right colon likely surrounded by stool unable to see as well on KUB as CT. There is also air-fluid levels in the small bowel likely due to still impacted stool in the colon. Patient did have a small amount of flatus in her bag this morning hopefully we are making progress with the irrigation getting a large amount of hard stool out from before surgery. 2. Tachycardia-resolved, on amiodarone per cardiology 3. Leukocytosis?improving on meropenem per ID. Continue to monitor-labs pending 4. Creatinine improving. labs pending 5. Anemia?8.7 after 1 unit packed red blood cells-on thursday, labs pending this morning. Aurora Young M.D. Pager: [phone] [facility] [address] [place] [address], [facility], [address] [place] [id number] Office: [phone]
--- NOTE | 2018-08-03 08:12 | PN.SURG_ITS ---
Patient Problems: Active and Suspected Problems (Last Reviewed 03/01/18 @ 13:10 by Victoria Fu) Large bowel perforation (Acute) Septic shock (Acute) Subjective: Patient denies any nausea or abdominal pain, some flatus in her colostomy bag, irrigated with GoLYTELY twice daily with moderate soft stool results - Physical Exam General: Alert, Cooperative, No apparent distress HEENT: Atraumatic Abdomen: Soft, Non Tender, Distended - Mild, - - Incision clean dry and intact with yuriy, colostomy pink?flatus and small amount soft stool in the colostomy bag Vital Signs Temp Pulse Resp BP Pulse Ox 98.7 F 72 16 129/51 H 99 08/03/18 03:35 08/03/18 07:24 08/03/18 03:35 08/03/18 03:35 08/03/18 03:35 Oxygen Flow Rate (L/min) 2 Oxygen Delivery Method Room Air Weight: 195 lb 1.745 oz Body Mass Index (BMI) 29.2 Intake and Output for Last 24 Hours 08/01/18 08/02/18 08/03/18 23:59 23:59 23:59 Intake Total 3144 / 3144 2133 / 2133 1041 / 1041 Output Total 3255 / 3255 1690 / 1690 1193 / 1193 Balance -111 / -111 443 / 443 -152 / -152 Microbiology Past 72 Hours 07/28/18 12:00 Blood Culture - Final Blood Culture (Wb) - Central Line No growth in 5 days. POC Glucose 08/03/18 08/03/18 08/02/18 05:34 00:21 17:59 POC Glucose 143 H 140 H 140 H 08/02/18 12:11 POC Glucose 112 H Medical Necessity - Tobacco Use Smoking Status: Never smoker Tobacco Use: Non-smoker Assessment/Plan All Active Problems (Last Reviewed 03/01/18 @ 13:10 by Victoria Fu) Large bowel perforation (Acute) Septic shock (Acute) DEMETRA (acute kidney injury) (Acute) Pneumococcal pneumonia (Acute) SVT (supraventricular tachycardia) (Acute) 82-year-old female with pneumoperitoneum from perforated splenic flexure of the colon POD#14 s/p ex lap, L colon resection, end colostomy; septic shock- resolved, history of COPD, diabetes, tachycardia-resolved, leukocytosis 1. continue NG/TPN, will continue Golytely irrigation of stoma twice daily--KUB still showed air in the right colon likely surrounded by stool unable to see as well on KUB as CT. There is also air-fluid levels in the small bowel likely due to still impacted stool in the colon. Patient did have a small amount of flatus in her bag this morning hopefully we are making progress with the irrigation getting a large amount of hard stool out from before surgery. 2. Tachycardia-resolved, on amiodarone per cardiology 3. Leukocytosis?improving on meropenem per ID. Continue to monitor-labs pending 4. Creatinine improving. labs pending 5. Anemia?8.7 after 1 unit packed red blood cells-on thursday, labs pending this morning. Aurora Young M.D. Pager: [phone] [facility] [address] [place] [address], [facility], [address] [place] [id number] Office: [phone]
--- NOTE | 2018-08-03 08:28 | NURSING ---
was able to feel some soft brown stool. stoma irrigated with approx 300cc's of Golytely. there was a moderate amount of soft brown stool out with the irrigation. reapplied the stoma appliance. will monitor output. plan on irrigating again later this afternoon. discussed with Dr Young this am. pt tolerated well.
[2018-08-03 08:53] LABS: Hematocrit 25.8 % (37-47); Hemoglobin 8.5 g/dl (12.0-15.0); Mean Corp Hgb Conc 32.9 g/gl (32-36); Mean Corpuscular Hgb 30.9 pg (27.0-32.0); Mean Corpuscular Volume 93.8 fL (81-99); Platelet Count 340 K/mm3 (150-450); RBC Distribution Width CV 17.2 % (11.6-14.6); RBC Distribution Width SD 57.2 fl (35.1-43.9); Red Blood Count 2.75 M/mm3 (4.2-5.4); Scan Indicated on CBC? Y/N NO; White Blood Count 8.7 K/mm3 (4.4-11.0)
[2018-08-03 09:18] LABS: AST(SGOT) 11 U/L (15-37); Alanine Aminotransfer ALT/SGPT 7 U/L (13-56); Albumin, Serum 1.2 g/dL (3.2-5.0); Alkaline Phosphatase 92 U/L (45-117); Anion Gap 7 (5-15); BUN 46 mg/dL (7-18); BUN/Creat Ratio 41.1 RATIO (10-20); Bilirubin, Direct 0.11 mg/dL (0.00-0.30); Calcium,Total 7.6 mg/dL (8.5-10.1); Chloride 109 mmol/L (98-107); Creatinine, Serum 1.12 mg/dL (0.55-1.02); EST Glomerular Filtration Rate 50 mL/min (>60); Est Glom Filt Rate - Afr Amer 60 mL/min (>60); Estimated Creatinine Clearance 36.88 ml/min; Globulin 3.7 g/dL (2.2-4.2); Glucose 135 mg/dL (74-106); Potassium 4.4 mmol/L (3.5-5.1); Prealbumin 11.1 mg/dL (20.0-40.0); Protein, Total 4.9 g/dL (6.4-8.2); Sodium Level 139 mmol/L (136-145)
[2018-08-03 09:26] LABS: Pathologist Review Reviewed
--- NOTE | 2018-08-03 10:11 | NURSING ---
wound photo: sacrum
[2018-08-03] MEDS: Docusate Sodium 100 MG/10 ML UDC PO ×2 (10:33→22:10)
[2018-08-03] MEDS: Amiodarone 200 MG Tablet PO ×2 (10:33→22:09)
[2018-08-03] MEDS: Heparin Injection (Vial) 5,000 UNIT/ML VIAL 5000 UNIT SC ×2 (10:33→22:09)
[2018-08-03] MEDS: Metoprolol Tartrate 25 MG Tablet PO ×2 (10:34→22:09)
[2018-08-03] MEDS: NYSTATIN 500,000 UNIT/5 ML UDC 500000 UNIT PO ×4 (11:14→22:10)
[2018-08-03] MEDS: Magnesium Citrate 300 ML 150 ML NG ×2 (11:15→15:35)
--- NOTE | 2018-08-03 11:47 | PCM.PN.ID ---
Patient Problems: Active and Suspected Problems (Last Reviewed 03/01/18 @ 13:10 by Victoria Fu) Large bowel perforation (Acute) Septic shock (Acute) Subjective: Feeling better, no fever, no abd pain, no cough - Physical Exam General: Alert, Cooperative, No apparent distress Lungs: Clear to auscultation, Normal air movement Cardiovascular: Regular rate, Regular Rhythm Abdomen: Soft, Non Tender, Non-Distended Skin: No rashes Vital Signs Temp Pulse Resp BP Pulse Ox 98.4 F 74 16 125/54 H 96 08/03/18 09:34 08/03/18 10:34 08/03/18 09:34 08/03/18 10:34 08/03/18 09:34 Oxygen Flow Rate (L/min) 2 Oxygen Delivery Method Room Air Weight: 88.5 kg Body Mass Index (BMI) 29.2 Intake and Output for Last 24 Hours 08/01/18 08/02/18 08/03/18 23:59 23:59 23:59 Intake Total 3144 / 3144 2133 / 2133 1041 / 1041 Output Total 3255 / 3255 1690 / 1690 1193 / 1193 Balance -111 / -111 443 / 443 -152 / -152 Microbiology Past 72 Hours 07/28/18 12:00 Blood Culture - Final Blood Culture (Wb) - Central Line No growth in 5 days. Laboratory Tests Past 24 Hrs 08/02/18 08/03/18 08/03/18 06:32 08:42 08:42 WBC 8.7 RBC 2.75 L Hgb 8.5 L Hct 25.8 L MCV 93.8 MCH 30.9 MCHC 32.9 RDW 17.2 H RDW Differential 57.2 H Plt Count 340 MPV 10.0 [address] Review Reviewed Sodium 139 Potassium 4.4 Chloride 109 H Carbon Dioxide 23.0 Anion Gap 7 BUN 46 H Creatinine 1.12 H Estim Creat Clear Calc 36.88 Est GFR (MDRD) Af Amer 60 Est GFR (MDRD) Non-Af 50 L BUN/Creatinine Ratio 41.1 H Glucose 135 H Calcium 7.6 L Total Bilirubin 0.20 Direct Bilirubin 0.11 AST 11 L ALT 7 L Alkaline Phosphatase 92 Total Protein 4.9 L Albumin 1.2 L Globulin 3.7 Prealbumin 11.1 L POC Glucose 08/03/18 08/03/1818 05:34 00:21 17:59 POC Glucose 143 H 140 H 140 H 08/02/18 12:11 POC Glucose 112 H Medical Necessity - Tobacco Use Smoking Status: Never smoker Tobacco Use: Non-smoker Route of nutrition/ use of supplements: [] Nutritional Intake: [] IV Site: [] Benitez Catheter: [] - Assessment/Plan Antibiotics: [] Assessment/Plan: [] Active and Suspected Problems (Last Reviewed 03/01/18 @ 13:10 by Victoria Fu) Large bowel perforation (Acute) Septic shock (Acute) Septic shock improved. Single bcx with clostridium and prior surg cx with ecoli, Acinetobacter, and multiple anaerobes. Her acinetobacter was R to unasyn. CT showed no abscess. Suspect most likely explanation of persistent wbc is hard stool and little ostomy output. Covering for pneumonia as well. Wbc now normal. Day 7 of meropenem, plan on stopping tomorrow. Will follow
[2018-08-03] MEDS: Insulin Lispro 100 UNIT/ML INSULN.PEN SC ×2 (12:38→23:39)
[2018-08-03 12:46] LABS: Bedside Glucose 175 mg/dL (70-110)
--- NOTE | 2018-08-03 12:51 | NURSING ---
Nursing had started the Mag Citrate though the NG tube. ostomy appliance leaking. removed appliance. patient had 4 large firm pieces of stool out as well as some soft stool. new appliance placed. Pt had another formed piece into the appliance. will monitor.
--- NOTE | 2018-08-03 15:22 | NURSING ---
back in room to assess stoma and output. there was another 4 pieces of moderate size formed stool in appliance with some soft brown unformed stool. appliance emptied. MARNI Kessler to give the other half bottle of Mag Citrate this afternoon. will assess again in the morning. pt resting comfortably at this time.
--- NOTE | 2018-08-03 15:43 | PCM.PN.HOSP ---
Patient Problems: Active and Suspected Problems (Last Reviewed 03/01/18 @ 13:10 by Victoria Fu) Large bowel perforation (Acute) Septic shock (Acute) Subjective: Patient seen and examined. Denies any pain. Reportedly passing gas from stoma. Still not fully treated past 2 months. Discussed with nurse, plan for oral mag citrate as well as stoma enema ongoing by general surgery Objective: Physical exam: General: Alert, Oriented x3, Cooperative, No apparent distress, - HEENT: Atraumatic, PERRLA, EOMI, Normocephalic Oral: Moist Mucosa Neck: Supple, No JVD, Negative Carotid Bruits Lungs: Clear to auscultation, Normal air movement, Diminished - at the lung bases Cardiovascular: Regular rate, Regular Rhythm, Normal S1, Normal S2, No murmurs Abdomen: Bowel Sounds Present, Soft, Non Tender, Non-Distended, No Hepato-splenomegaly, Active Bowel Sounds, - - Colostomy bag in situ, liquid brownish green feces in bag, midline yuriy in situ, mild erythema of the incision, no discharge Extremities: No edema, Capillary Refill Less than 3 Seconds Skin: No rashes, No breakdown Musculoskeletal: No Tenderness to Palpation of Joints or Extremities Lymphatic: No Cervical, Supraclavicular, or Inguinal Adenopathy Neurological: Cranial nerves II-XII grossly intact, Neuro grossly intact Psych/Mental Status: Normal Affect, Appropriate Vitals/I&O's: Vital Signs Temp Pulse Resp BP Pulse Ox 98.4 F 70 16 125/54 H 96 08/03/18 09:34 08/03/18 11:53 08/03/18 09:34 08/03/18 10:34 08/03/18 09:34 Oxygen Flow Rate (L/min) 2 Oxygen Delivery Method Room Air Weight: 88.5 kg Body Mass Index (BMI) 29.2 Intake and Output for Last 24 Hours 08/01/18 08/02/18 08/03/18 23:59 23:59 23:59 Intake Total 3144 / 3144 2133 / 2133 1992 Output Total 3255 / 3255 1690 / 1690 1843 / 1843 Balance -111 / -111 443 / 443 150 / 150 Microbiology Past 72 Hours 07/28/18 12:00 Blood Culture (Wb) - Central Line Blood Culture - Final No growth in 5 days. Laboratory Results 08/02/18 06:32: Diff Path Review Reviewed 08/02/18 17:59: POC Glucose 140 H 08/03/18 00:21: POC Glucose 140 H 08/03/18 05:34: POC Glucose 143 H 08/03/18 08:42: WBC 8.7, RBC 2.75 L, Hgb 8.5 L, Hct 25.8 L, MCV 93.8, MCH 30.9, MCHC 32.9, RDW 17.2 H, RDW Differential 57.2 H, Plt Count 340, MPV 10.0 08/03/18 08:42: Sodium 139, Potassium 4.4, Chloride 109 H, Carbon Dioxide 23.0, Anion Gap 7, BUN 46 H, Creatinine 1.12 H, Estim Creat Clear Calc 36.88, Est GFR (MDRD) Af Amer 60, Est GFR (MDRD) Non-Af 50 L, BUN/Creatinine Ratio 41.1 H, Glucose 135 H, Calcium 7.6 L, Total Bilirubin 0.20, Direct Bilirubin 0.11, AST 11 L, ALT 7 L, Alkaline Phosphatase 92, Total Protein 4.9 L, Albumin 1.2 L, Globulin 3.7, Prealbumin 11.1 L 08/03/18 12:36: POC Glucose 175 H Current Medications Acetaminophen (Tylenol) 650 mg PO Q6H PRN PRN PRN Reason: Mild Pain (1-3)/Temp > 100.7 F Albuterol/Ipratropium (Duoneb) 3 ml INHALATION Q4H PRN PRN PRN Reason: SHORTNESS OF BREATH Amiodarone HCl (Cordarone) 200 mg PO BID [facility] Stop: 08/08/18 22:01 Last Admin: 08/03/18 10:33 Dose: 200 mg Amiodarone HCl (Cordarone) 200 mg PO DAILY [facility] Budesonide (Pulmicort Aerosol) 0.5 mg INHALATION BID.RT [facility] Last Admin: 08/03/18 06:30 Dose: Not Given Dextrose (D50w Syringe) 0 gm IV X1 PRN; Protocol PRN Reason: Hypoglycemia Docusate Sodium (Colace Syrup) 100 mg PO BID [facility] Glucagon () 1 mg IM .X1 PRN PRN Reason: Hypoglycemia Heparin Sodium (Porcine) (Heparin Na) 5,000 unit SC BID [facility] Last Admin: 08/03/18 10:33 Dose: 5,000 unit Sodium Chloride () 250 mls @ 15 mls/hr IV .[id number] PRN PRN Reason: SALINE FLUSH Last Admin: 07/21/18 09:47 Dose: 15 mls/hr Sodium Chloride () 250 mls @ 15 mls/hr IV .[id number] PRN PRN Reason: SALINE FLUSH Meropenem 500 mg/ Sodium (Chloride) 60 mls @ 100 mls/hr IV Q8 [facility] Last Admin: 08/03/18 15:35 Dose: 100 mls/hr Pantoprazole Sodium 40 mg/ (Sodium Chloride) 110 mls @ 330 mls/hr IV Q24 [facility] Last Admin: 08/03/18 10:34 Dose: 330 mls/hr Multivitamins 5 ml/ Chromium/Copper/Manganese/Seleni/Zn 0.5 ml/ Folic Acid 0.5 mg/ Sodium Acetate 40 meq/ Sodium Phosphate 12 mm/ Potassium Chloride 40 meq/ Magnesium Sulfate 1 gm/ Insulin Human Lispro 50 unit/ Amino Acids 1,052.1 mls @ 84 mls/hr IV .[id number] [facility]; Protocol Stop: 08/03/18 17:03 Last Admin: 08/03/18 04:47 Dose: 84 mls/hr Multivitamins 5 ml/ Chromium/Copper/Manganese/Seleni/Zn 0.5 ml/ Folic Acid 0.5 mg/ Sodium Acetate 40 meq/ Sodium Phosphate 6 mm/ Potassium Chloride 20 meq/ Magnesium Sulfate 1 gm/ Insulin Human Lispro 55 unit/ Amino Acids 400 ml/ Amino Acids 1,440.15 mls @ 98 mls/hr IV .[id number] [facility]; Protocol Stop: 08/04/18 21:23 Insulin Glargine (Lantus (Bkc)) 10 units SC 18 [facility] Last Admin: 08/03/18 05:35 Dose: 10 units Insulin Human Lispro (Humalog Kwikpen (Bkc)) 0 unit SC Q6 [facility]; Protocol Last Admin: 08/03/18 12:38 Dose: 3 u Magnesium Hydroxide (Milk Of Magnesia) 30 ml PO DAILY PRN PRN PRN Reason: Constipation Metoprolol Tartrate (Lopressor (Beta Jose)) 5 mg IV Q6 PRN PRN Reason: TO CONTROL HEART RATE Last Admin: 07/21/18 19:35 Dose: 2.5 mg Metoprolol Tartrate (Lopressor (Beta Jose)) 25 mg PO BID [facility] Last Admin: 08/03/18 10:34 Dose: 25 mg Morphine Sulfate () 1 mg IV Q4H PRN PRN PRN Reason: SEVERE PAIN (6-10/10) Nystatin (Nystatin) 500,000 unit PO 4X/DAY [facility] Last Admin: 08/03/18 15:35 Dose: 500,000 unit Ondansetron HCl (Zofran) 4 mg IV Q8H PRN PRN PRN Reason: NAUSEA Last Admin: 07/29/18 06:22 Dose: 4 mg Sodium Chloride () 10 - 40 ml IV UD PRN PRN Reason: MULTILUMEN/HICMAN CATH FLUSH Last Admin: 08/02/18 16:36 Dose: 10 ml Medical Necessity - Tobacco Use Smoking Status: Never smoker Tobacco Use: Non-smoker Assessment/Plan All Active Problems (Last Reviewed 03/01/18 @ 13:10 by Victoria Fu) Large bowel perforation (Acute) Septic shock (Acute) DEMETRA (acute kidney injury) (Acute) Pneumococcal pneumonia (Acute) SVT (supraventricular tachycardia) (Acute) 82 year old F with multiple comorbidities significant for Takusubo cardiomyopathy with SVTs, hypertension, type II DM, resident in a [facility] admitted with complaints of confusion and not feeling well as well as being diaphoretic. 1. Septic shock secondary to acute peritonitis secondary to perforated descending colon, status post surgery, resolved 2. Clostridium clostridiforme in a single blood culture, repeat cultures have been negative, wound cultures growing E. coli, Acinetobacter, multiple anaerobes, recent abdominal CT on 07/28/18 showed no abscess, on meropenem, ID following, plan for DC antibiotics tomorrow. 3. Post-op/ICU delirium, resolved 4. 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 Type II DM, blood sugars are fairly stable, continue on Accu-Cheks with insulin sliding scale 6. DEMETRA, creatinine continues to improve 7. Hypokalemia, hypomagnesemia, replaced 8. History of SVT, in NSR, on amiodarone, neurology following 9. Hypertension, controlled, will continue with prn metoprolol 10. COPD, not in acute exacerbation 11. Hypothyroidism, off Synthroid, on account of NPO status, may need to replace IV if NPO persists 12. DVT PPx- Heparin SC Code Visit Inpatient E&M: 04242 Subs Hosp L2
--- NOTE | 2018-08-03 15:47 | PN_ITS ---
Patient Problems: Active and Suspected Problems (Last Reviewed 03/01/18 @ 13:10 by Victoria Fu) Large bowel perforation (Acute) Septic shock (Acute) Subjective: Patient seen and examined. Denies any pain. Reportedly passing gas from stoma. Still not fully treated past 2 months. Discussed with nurse, plan for oral mag citrate as well as stoma enema ongoing by general surgery Objective: Physical exam: General: Alert, Oriented x3, Cooperative, No apparent distress, - HEENT: Atraumatic, PERRLA, EOMI, Normocephalic Oral: Moist Mucosa Neck: Supple, No JVD, Negative Carotid Bruits Lungs: Clear to auscultation, Normal air movement, Diminished - at the lung bases Cardiovascular: Regular rate, Regular Rhythm, Normal S1, Normal S2, No murmurs Abdomen: Bowel Sounds Present, Soft, Non Tender, Non-Distended, No Hepato- splenomegaly, Active Bowel Sounds, - - Colostomy bag in situ, liquid brownish green feces in bag, midline yuriy in situ, mild erythema of the incision, no discharge Extremities: No edema, Capillary Refill Less than 3 Seconds Skin: No rashes, No breakdown Musculoskeletal: No Tenderness to Palpation of Joints or Extremities Lymphatic: No Cervical, Supraclavicular, or Inguinal Adenopathy Neurological: Cranial nerves II-XII grossly intact, Neuro grossly intact Psych/Mental Status: Normal Affect, Appropriate Vitals/I&O's: Vital Signs Temp Pulse Resp BP Pulse Ox 98.4 F 70 16 125/54 H 96 08/03/18 09:34 08/03/18 11:53 08/03/18 09:34 08/03/18 10:34 08/03/18 09:34 Oxygen Flow Rate (L/min) 2 Oxygen Delivery Method Room Air Weight: 88.5 kg Body Mass Index (BMI) 29.2 Intake and Output for Last 24 Hours 08/01/18 08/02/18 08/03/18 23:59 23:59 23:59 Intake Total 3144 / 3144 2133 / 2133 1992 Output Total 3255 / 3255 1690 / 1690 1843 / 1843 Balance -111 / -111 443 / 443 150 / 150 Microbiology Past 72 Hours 07/28/18 12:00 Blood Culture (Wb) - Central Line Blood Culture - Final No growth in 5 days. Laboratory Results 08/02/18 06:32: Diff Path Review Reviewed 08/02/18 17:59: POC Glucose 140 H 08/03/18 00:21: POC Glucose 140 H 08/03/18 05:34: POC Glucose 143 H 08/03/18 08:42: WBC 8.7, RBC 2.75 L, Hgb 8.5 L, Hct 25.8 L, MCV 93.8, MCH 30.9, MCHC 32.9, RDW 17.2 H, RDW Differential 57.2 H, Plt Count 340, MPV 10.0 08/03/18 08:42: Sodium 139, Potassium 4.4, Chloride 109 H, Carbon Dioxide 23.0, Anion Gap 7, BUN 46 H, Creatinine 1.12 H, Estim Creat Clear Calc 36.88, Est GFR (MDRD) Af Amer 60, Est GFR (MDRD) Non-Af 50 L, BUN/Creatinine Ratio 41.1 H, Glucose 135 H, Calcium 7.6 L, Total Bilirubin 0.20, Direct Bilirubin 0.11, AST 11 L, ALT 7 L, Alkaline Phosphatase 92, Total Protein 4.9 L, Albumin 1.2 L, Globulin 3.7, Prealbumin 11.1 L 08/03/18 12:36: POC Glucose 175 H Current Medications Acetaminophen (Tylenol) 650 mg PO Q6H PRN PRN PRN Reason: Mild Pain (1-3)/Temp > 100.7 F Albuterol/Ipratropium (Duoneb) 3 ml INHALATION Q4H PRN PRN PRN Reason: SHORTNESS OF BREATH Amiodarone HCl (Cordarone) 200 mg PO BID [facility] Stop: 08/08/18 22:01 Last Admin: 08/03/18 10:33 Dose: 200 mg Amiodarone HCl (Cordarone) 200 mg PO DAILY [facility] Budesonide (Pulmicort Aerosol) 0.5 mg INHALATION BID.RT [facility] Last Admin: 08/03/18 06:30 Dose: Not Given Dextrose (D50w Syringe) 0 gm IV X1 PRN; Protocol PRN Reason: Hypoglycemia Docusate Sodium (Colace Syrup) 100 mg PO BID [facility] Glucagon () 1 mg IM .X1 PRN PRN Reason: Hypoglycemia Heparin Sodium (Porcine) (Heparin Na) 5,000 unit SC BID [facility] Last Admin: 08/03/18 10:33 Dose: 5,000 unit Sodium Chloride () 250 mls @ 15 mls/hr IV .[id number] PRN PRN Reason: SALINE FLUSH Last Admin: 07/21/18 09:47 Dose: 15 mls/hr Sodium Chloride () 250 mls @ 15 mls/hr IV .[id number] PRN PRN Reason: SALINE FLUSH Meropenem 500 mg/ Sodium (Chloride) 60 mls @ 100 mls/hr IV Q8 [facility] Last Admin: 08/03/18 15:35 Dose: 100 mls/hr Pantoprazole Sodium 40 mg/ (Sodium Chloride) 110 mls @ 330 mls/hr IV Q24 [facility] Last Admin: 08/03/18 10:34 Dose: 330 mls/hr Multivitamins 5 ml/ Chromium/Copper/Manganese/Seleni/Zn 0.5 ml/ Folic Acid 0.5 mg/ Sodium Acetate 40 meq/ Sodium Phosphate 12 mm/ Potassium Chloride 40 meq/ Magnesium Sulfate 1 gm/ Insulin Human Lispro 50 unit/ Amino Acids 1,052.1 mls @ 84 mls/hr IV .[id number] [facility]; Protocol Stop: 08/03/18 17:03 Last Admin: 08/03/18 04:47 Dose: 84 mls/hr Multivitamins 5 ml/ Chromium/Copper/Manganese/Seleni/Zn 0.5 ml/ Folic Acid 0.5 mg/ Sodium Acetate 40 meq/ Sodium Phosphate 6 mm/ Potassium Chloride 20 meq/ Magnesium Sulfate 1 gm/ Insulin Human Lispro 55 unit/ Amino Acids 400 ml/ Amino Acids 1,440.15 mls @ 98 mls/hr IV .[id number] [facility]; Protocol Stop: 08/04/18 21:23 Insulin Glargine (Lantus (Bkc)) 10 units SC 18 [facility] Last Admin: 08/03/18 05:35 Dose: 10 units Insulin Human Lispro (Humalog Kwikpen (Bkc)) 0 unit SC Q6 [facility]; Protocol Last Admin: 08/03/18 12:38 Dose: 3 u Magnesium Hydroxide (Milk Of Magnesia) 30 ml PO DAILY PRN PRN PRN Reason: Constipation Metoprolol Tartrate (Lopressor (Beta Jose)) 5 mg IV Q6 PRN PRN Reason: TO CONTROL HEART RATE Last Admin: 07/21/18 19:35 Dose: 2.5 mg Metoprolol Tartrate (Lopressor (Beta Jose)) 25 mg PO BID [facility] Last Admin: 08/03/18 10:34 Dose: 25 mg Morphine Sulfate () 1 mg IV Q4H PRN PRN PRN Reason: SEVERE PAIN (6-10/10) Nystatin (Nystatin) 500,000 unit PO 4X/DAY [facility] Last Admin: 08/03/18 15:35 Dose: 500,000 unit Ondansetron HCl (Zofran) 4 mg IV Q8H PRN PRN PRN Reason: NAUSEA Last Admin: 07/29/18 06:22 Dose: 4 mg Sodium Chloride () 10 - 40 ml IV UD PRN PRN Reason: MULTILUMEN/HICMAN CATH FLUSH Last Admin: 08/02/18 16:36 Dose: 10 ml Medical Necessity - Tobacco Use Smoking Status: Never smoker Tobacco Use: Non-smoker Assessment/Plan All Active Problems (Last Reviewed 03/01/18 @ 13:10 by Victoria Fu) Large bowel perforation (Acute) Septic shock (Acute) DEMETRA (acute kidney injury) (Acute) Pneumococcal pneumonia (Acute) SVT (supraventricular tachycardia) (Acute) 82 year old F with multiple comorbidities significant for Takusubo cardiomyopathy with SVTs, hypertension, type II DM, resident in a residential admitted with complaints of confusion and not feeling well as well as being diaphoretic. 1. Septic shock secondary to acute peritonitis secondary to perforated descending colon, status post surgery, resolved 2. Clostridium clostridiforme in a single blood culture, repeat cultures have been negative, wound cultures growing E. coli, Acinetobacter, multiple anaerobes, recent abdominal CT on 07/28/18 showed no abscess, on meropenem, ID following, plan for DC antibiotics tomorrow. 3. Post-op/ICU delirium, resolved 4. 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 Type II DM, blood sugars are fairly stable, continue on Accu-Cheks with insul in sliding scale 6. DEMETRA, creatinine continues to improve 7. Hypokalemia, hypomagnesemia, replaced 8. History of SVT, in NSR, on amiodarone, neurology following 9. Hypertension, controlled, will continue with prn metoprolol 10. COPD, not in acute exacerbation 11. Hypothyroidism, off Synthroid, on account of NPO status, may need to replace IV if NPO persists 12. DVT PPx- Heparin SC Code Visit Inpatient E&M: 49059 Subs Hosp L2
[2018-08-03 18:21] LABS: Bedside Glucose 147 mg/dL (70-110)
[2018-08-03] MEDS: Budesonide Respules 0.5 MG/2 ML AMPUL.NEB. INHALATION (19:28)
[2018-08-03 23:51] LABS: Bedside Glucose 173 mg/dL (70-110)
[2018-08-04] VITALS (14 sets, daily range): BP systolic 127–133; BP diastolic 46–63; PULSE 71–79; RESP 16–20; TEMP 36.6–37; O2SAT 98–100
[2018-08-04 05:10] LABS: Anion Gap 7 (5-15); BUN 47 mg/dL (7-18); BUN/Creat Ratio 45.2 RATIO (10-20); Calcium,Total 7.6 mg/dL (8.5-10.1); Chloride 106 mmol/L (98-107); Creatinine, Serum 1.04 mg/dL (0.55-1.02); EST Glomerular Filtration Rate 54 mL/min (>60); Est Glom Filt Rate - Afr Amer 65 mL/min (>60); Estimated Creatinine Clearance 39.72 ml/min; Glucose 147 mg/dL (74-106); Potassium 4.6 mmol/L (3.5-5.1); Sodium Level 138 mmol/L (136-145)
[2018-08-04] MEDS: Insulin Lispro 100 UNIT/ML INSULN.PEN SC ×3 (05:20→17:01)
[2018-08-04 05:46] LABS: Bedside Glucose 159 mg/dL (70-110)
[2018-08-04] MEDS: Budesonide Respules 0.5 MG/2 ML AMPUL.NEB. INHALATION (07:31)
--- NOTE | 2018-08-04 07:46 | PCM.PN.SRG ---
Patient Problems: Active and Suspected Problems (Last Reviewed 03/01/18 @ 13:10 by Victoria Fu) Large bowel perforation (Acute) Septic shock (Acute) Objective: +stool from colostomy with mag citrate, still NG output of about 200 over night, pt denies n/v or abd pain - Physical Exam General: Alert, Cooperative, No apparent distress HEENT: Atraumatic Abdomen: Soft, Non Tender, Non-Distended, - - midline incision w some serous drainage and yuriy, colostomy w liquid stool & small amount of flatus in bag-pink Vital Signs Temp Pulse Resp BP Pulse Ox 97.8 F 75 18 133/63 H 98 08/04/18 03:28 08/04/18 07:02 08/04/18 03:28 08/04/18 03:28 08/04/18 03:28 Oxygen Flow Rate (L/min) 2 Oxygen Delivery Method Room Air Weight: 192 lb 14.472 oz Body Mass Index (BMI) 29.2 Intake and Output for Last 24 Hours 08/02/18 08/03/18 08/04/18 23:59 23:59 23:59 Intake Total 2133 / 2133 3602 / 3602 932 / 932 Output Total 1690 / 1690 2543 / 2543 800 / 800 Balance 443 / 443 1059 / 1059 132 / 132 Microbiology Past 72 Hours 07/28/18 12:00 Blood Culture - Final Blood Culture (Wb) - Central Line No growth in 5 days. Laboratory Tests Past 24 Hrs 08/02/18 08/03/18 08/03/18 06:32 08:42 08:42 WBC 8.7 RBC 2.75 L Hgb 8.5 L Hct 25.8 L MCV 93.8 MCH 30.9 MCHC 32.9 RDW 17.2 H RDW Differential 57.2 H Plt Count 340 MPV 10.0 [address] Review Reviewed Sodium 139 Potassium 4.4 Chloride 109 H Carbon Dioxide 23.0 Anion Gap 7 BUN 46 H Creatinine 1.12 H Estim Creat Clear Calc 36.88 Est GFR (MDRD) Af Amer 60 Est GFR (MDRD) Non-Af 50 L BUN/Creatinine Ratio 41.1 H Glucose 135 H Calcium 7.6 L Total Bilirubin 0.20 Direct Bilirubin 0.11 AST 11 L ALT 7 L Alkaline Phosphatase 92 Total Protein 4.9 L Albumin 1.2 L Globulin 3.7 Prealbumin 11.1 L 08/04/18 04:30 WBC RBC Hgb Hct MCV MCH MCHC RDW RDW Differential Plt Count MPV Diff Path Review Sodium 138 Potassium 4.6 Chloride 106 Carbon Dioxide 25.0 Anion Gap 7 BUN 47 H Creatinine 1.04 H Estim Creat Clear Calc 39.72 Est GFR (MDRD) Af Amer 65 Est GFR (MDRD) Non-Af 54 L BUN/Creatinine Ratio 45.2 H Glucose 147 H Calcium 7.6 L Total Bilirubin Direct Bilirubin AST ALT Alkaline Phosphatase Total Protein Albumin Globulin Prealbumin POC Glucose 08/04/18 08/03/18 08/03/18 05:16 23:37 17:59 POC Glucose 159 H 173 H 147 H 08/03/18 12:36 POC Glucose 175 H Medical Necessity - Tobacco Use Smoking Status: Never smoker Tobacco Use: Non-smoker Assessment/Plan All Active Problems (Last Reviewed 03/01/18 @ 13:10 by Victoria Fu) Large bowel perforation (Acute) Septic shock (Acute) DEMETRA (acute kidney injury) (Acute) Pneumococcal pneumonia (Acute) SVT (supraventricular tachycardia) (Acute) 82-year-old female with pneumoperitoneum from perforated splenic flexure of the colon POD#15 s/p ex lap, L colon resection, end colostomy; septic shock-resolved, history of COPD, diabetes, tachycardia-resolved, leukocytosis 1. continue NG/TPN, +results with mag citrate yesterday, will plan to try again today, NG outpt still 200cc overnight, will remove most of the abd yuriy and give lasix 20 mg IV x1 2. Tachycardia-resolved, on amiodarone per cardiology 3. Leukocytosis?resolved. abx stopping today per ID 4. Creatinine improving. Aurora Young M.D. Pager: [phone] [facility] [address] [place] [address], Outpatient [facility]ilion, [address] [place] [address] Office: [phone]
--- NOTE | 2018-08-04 07:49 | PN.SURG_ITS ---
Patient Problems: Active and Suspected Problems (Last Reviewed 03/01/18 @ 13:10 by Victoria Fu) Large bowel perforation (Acute) Septic shock (Acute) Objective: +stool from colostomy with mag citrate, still NG output of about 200 over night, pt denies n/v or abd pain - Physical Exam General: Alert, Cooperative, No apparent distress HEENT: Atraumatic Abdomen: Soft, Non Tender, Non-Distended, - - midline incision w some serous drainage and yuriy, colostomy w liquid stool & small amount of flatus in bag- pink Vital Signs Temp Pulse Resp BP Pulse Ox 97.8 F 75 18 133/63 H 98 08/04/18 03:28 08/04/18 07:02 08/04/18 03:28 08/04/18 03:28 08/04/18 03:28 Oxygen Flow Rate (L/min) 2 Oxygen Delivery Method Room Air Weight: 192 lb 14.472 oz Body Mass Index (BMI) 29.2 Intake and Output for Last 24 Hours 08/02/18 08/03/18 08/04/18 23:59 23:59 23:59 Intake Total 2133 / 2133 3602 / 3602 932 / 932 Output Total 1690 / 1690 2543 / 2543 800 / 800 Balance 443 / 443 1059 / 1059 132 / 132 Microbiology Past 72 Hours 07/28/18 12:00 Blood Culture - Final Blood Culture (Wb) - Central Line No growth in 5 days. Laboratory Tests Past 24 Hrs 08/02/18 08/03/18 08/03/18 06:32 08:42 08:42 WBC 8.7 RBC 2.75 L Hgb 8.5 L Hct 25.8 L MCV 93.8 MCH 30.9 MCHC 32.9 RDW 17.2 H RDW Differential 57.2 H Plt Count 340 MPV 10.0 Diff Path Review Reviewed Sodium 139 Potassium 4.4 Chloride 109 H Carbon Dioxide 23.0 Anion Gap 7 BUN 46 H Creatinine 1.12 H Estim Creat Clear Calc 36.88 Est GFR (MDRD) Af Amer 60 Est GFR (MDRD) Non-Af 50 L BUN/Creatinine Ratio 41.1 H Glucose 135 H Calcium 7.6 L Total Bilirubin 0.20 Direct Bilirubin 0.11 AST 11 L ALT 7 L Alkaline Phosphatase 92 Total Protein 4.9 L Albumin 1.2 L Globulin 3.7 Prealbumin 11.1 L 08/04/18 04:30 WBC RBC Hgb Hct MCV MCH MCHC RDW RDW Differential Plt Count MPV Diff Path Review Sodium 138 Potassium 4.6 Chloride 106 Carbon Dioxide 25.0 Anion Gap 7 BUN 47 H Creatinine 1.04 H Estim Creat Clear Calc 39.72 Est GFR (MDRD) Af Amer 65 Est GFR (MDRD) Non-Af 54 L BUN/Creatinine Ratio 45.2 H Glucose 147 H Calcium 7.6 L Total Bilirubin Direct Bilirubin AST ALT Alkaline Phosphatase Total Protein Albumin Globulin Prealbumin POC Glucose 08/04/18 08/03/18 08/03/18 05:16 23:37 17:59 POC Glucose 159 H 173 H 147 H 08/03/18 12:36 POC Glucose 175 H Medical Necessity - Tobacco Use Smoking Status: Never smoker Tobacco Use: Non-smoker Assessment/Plan All Active Problems (Last Reviewed 03/01/18 @ 13:10 by Victoria Fu) Large bowel perforation (Acute) Septic shock (Acute) DEMETRA (acute kidney injury) (Acute) Pneumococcal pneumonia (Acute) SVT (supraventricular tachycardia) (Acute) 82-year-old female with pneumoperitoneum from perforated splenic flexure of the colon POD#15 s/p ex lap, L colon resection, end colostomy; septic shock- resolved, history of COPD, diabetes, tachycardia-resolved, leukocytosis 1. continue NG/TPN, +results with mag citrate yesterday, will plan to try again today, NG outpt still 200cc overnight, will remove most of the abd yuriy and give lasix 20 mg IV x1 2. Tachycardia-resolved, on amiodarone per cardiology 3. Leukocytosis?resolved. abx stopping today per ID 4. Creatinine improving. Aurora Young M.D. Pager: [phone] [facility] [address] [place] [address], Outpatient Pavilion, [address] [place] [address] Office: [phone]
[2018-08-04] MEDS: Heparin Injection (Vial) 5,000 UNIT/ML VIAL 5000 UNIT SC ×2 (09:01→22:57)
[2018-08-04] MEDS: Furosemide 20 MG/2 ML VIAL IV (09:02)
[2018-08-04] MEDS: NYSTATIN 500,000 UNIT/5 ML UDC 500000 UNIT PO ×4 (09:02→22:57)
[2018-08-04] MEDS: Amiodarone 200 MG Tablet PO ×2 (09:12→22:56)
[2018-08-04] MEDS: Docusate Sodium 100 MG/10 ML UDC PO ×2 (09:12→22:56)
[2018-08-04] MEDS: Metoprolol Tartrate 25 MG Tablet PO ×2 (09:12→22:56)
--- NOTE | 2018-08-04 09:21 | NURSING ---
colostomy appliance removed. there was some drainage on the medial portion of the appliance from surgical incision. there was still some stool noted in colon but seems much softer. patient is having a moderate amount of dark brown drainage from NG tube. patient appears more lethargic this am, but unsure how patient rested through the night. cleansed around stoma with warm water and pat dry. placed a new 2 piece convex appliance. see wound care intervention as well. pt tolerated well.
--- NOTE | 2018-08-04 10:05 | NURSING ---
wound/stoma photo: abdomen
--- NOTE | 2018-08-04 11:12 | CASEMGMT ---
PHILLIP faxed updates to [facility]. Marisel [employer]
[2018-08-04 12:05] LABS: Bedside Glucose 182 mg/dL (70-110)
[2018-08-04] MEDS: Magnesium Citrate 300 ML 150 ML PO (13:05)
--- NOTE | 2018-08-04 13:52 | NS ---
TPN order increased w/ an additional 400mL 5%AA/20%dextrose added d/t concerns regarding pt's protein/nutritional status. Albumin drawn 08/03/18 at 1.2g/dL compared to 3.0g/dL drawn on 07/20/18. Current standards of practice suggest albumin is not sensitive to acute protein malnutrition or the response to nutrition therapy. Pt's low albumin status may be r/t the acute-phase response s/p surgery and infection and/or reduction in colloid osmotic pressure AEB pt's generalized non-pitting edema and BLE 2+ pitting edema. Prealbumin level is mildly depleted, however prealbumin may also decline rapidly w/ an acute-phase response providing limitations in its interpretation of nutritional status. Pt's estimated nutritional needs remain at 0633-3785 calories/day and w/ current body wt, estimated protein needs are 97-105 g protein/day. Previous TPN order of 2L of 5% AA/20% dextrose @ 84mL/hour would provide 1760 calories and 100 g protein per day. Additional calories would best be provided by 250mL 20% lipid solution 3x/week. Since initiation of TPN on 07/26/18, pt has not had a significant wt loss and has meet 50% or greater of estimated nutritional needs. Pt's current clinical characteristics do not meeting AND/[facility] clinical diagnostic parameters for the identification of malnutrition. Recommend TPN 2L 5% AA/ 20% Dextrose to provide 1760 calories/100 g pro/day and 250 cc 20% Lipids 3x/wk to provide an additional 1500 calories/week. Tana Houston MS, RDN, LD
--- NOTE | 2018-08-04 14:13 | PCM.PN.ID ---
Patient Problems: Active and Suspected Problems (Last Reviewed 03/01/18 @ 13:10 by Victoria Fu) Large bowel perforation (Acute) Septic shock (Acute) Subjective: Feeling ok, a little tired today, no fever. - Physical Exam General: Cooperative, No apparent distress Lungs: Clear to auscultation, Normal air movement Cardiovascular: Regular rate, Regular Rhythm Abdomen: Soft, Non Tender, Non-Distended Skin: No rashes, Ulcer/ Wound - incision dressed next to ostomy Vital Signs Temp Pulse Resp BP Pulse Ox 97.8 F 71 20 H 127/58 H 100 08/04/18 09:10 08/04/18 10:59 08/04/18 09:10 08/04/18 09:10 08/04/18 09:10 Oxygen Flow Rate (L/min) 2 Oxygen Delivery Method Room Air Weight: 87.5 kg Body Mass Index (BMI) 29.2 Intake and Output for Last 24 Hours 08/02/18 08/03/18 08/04/18 23:59 23:59 23:59 Intake Total 2133 / 2133 3602 / 3602 1916 / 1916 Output Total 1690 / 1690 2543 / 2543 2800 / 2800 Balance 443 / 443 1059 / 1059 -884 / -884 Microbiology Past 72 Hours 07/28/18 12:00 Blood Culture - Final Blood Culture (Wb) - Central Line No growth in 5 days. Laboratory Tests Past 24 Hrs 08/04/18 04:30 Sodium 138 Potassium 4.6 Chloride 106 Carbon Dioxide 25.0 Anion Gap 7 BUN 47 H Creatinine 1.04 H Estim Creat Clear Calc 39.72 Est GFR (MDRD) Af Amer 65 Est GFR (MDRD) Non-Af 54 L BUN/Creatinine Ratio 45.2 H Glucose 147 H Calcium 7.6 L POC Glucose 08/04/18 08/04/18 08/03/18 11:55 05:16 23:37 POC Glucose 182 H 159 H 173 H 08/03/18 17:59 POC Glucose 147 H Medical Necessity - Tobacco Use Smoking Status: Never smoker Tobacco Use: Non-smoker Route of nutrition/ use of supplements: [] Nutritional Intake: [] IV Site: [] Benitez Catheter: [] - Assessment/Plan Antibiotics: [] Assessment/Plan: [] Active and Suspected Problems (Last Reviewed 03/01/18 @ 13:10 by Victoria Fu) Large bowel perforation (Acute) Septic shock (Acute) Septic shock improved. Single bcx with clostridium and prior surg cx with ecoli, Acinetobacter, and multiple anaerobes. Her acinetobacter was R to unasyn. CT showed no abscess. Suspect most likely explanation of persistent wbc is hard stool and little ostomy output. Covering for pneumonia as well. Wbc now normal. Day 8 of meropenem, stop today. Some drainage from incision sent for cx. Will follow
--- NOTE | 2018-08-04 14:18 | PCM.PN.BLA ---
Progress Note Pt continues to have stool/flatus in colostomy. Will give Mag. citrate 150 cc x 1 down NG. NG only put out minimal from 10:30-12:30, will recheck at 5pm, if still minimal ---may be able to d/c NG and start clears-honey thick- with ensure clears and advance if tolerates. midwound is packed w wet to dry-continue, yuriy removed. Dr. Dubois is covering starting tomorrow, hopefully patient will be ready for ECF in next 1-2 days, f/u with me in office in 1-2 weeks after d/c- also d/w pt daughter as well. Aurora Young MD
[2018-08-04] MEDS: Fat Emulsions 20% 250 ML IV (16:50)
[2018-08-04 17:06] LABS: Bedside Glucose 152 mg/dL (70-110)
--- NOTE | 2018-08-04 18:15 | PCM.PN.HOSP ---
Patient Problems: Active and Suspected Problems (Last Reviewed 03/01/18 @ 13:10 by Victoria Fu) Large bowel perforation (Acute) Septic shock (Acute) Subjective: Patient was seen and examined. She was admitted on 07/20/2018(day 15 of admission). Has some bowel movement in her colostomy, still has NG tube in situ. General surgery following Denies any complaints including pain Review of systems is negative except for progressive weakness Objective: Physical exam: General: Alert, Oriented x3, Cooperative, No apparent distress, - HEENT: Atraumatic, PERRLA, EOMI, Normocephalic Oral: Moist Mucosa Neck: Supple, No JVD, Negative Carotid Bruits Lungs: Clear to auscultation, Normal air movement, Diminished - at the lung bases Cardiovascular: Regular rate, Regular Rhythm, Normal S1, Normal S2, No murmurs Abdomen: Bowel Sounds Present, Soft, Non Tender, Non-Distended, No Hepato-splenomegaly, Active Bowel Sounds, - - Colostomy bag in situ, liquid brownish green feces in bag, midline yuriy in situ, mild erythema of the incision, no discharge Extremities: No edema, Capillary Refill Less than 3 Seconds Skin: No rashes, No breakdown Musculoskeletal: No Tenderness to Palpation of Joints or Extremities Lymphatic: No Cervical, Supraclavicular, or Inguinal Adenopathy Neurological: Cranial nerves II-XII grossly intact, Neuro grossly intact Psych/Mental Status: Normal Affect, Appropriate Vitals/I&O's: Vital Signs Temp Pulse Resp BP Pulse Ox 98.6 F 78 18 128/56 H 99 08/04/18 15:10 08/04/18 15:10 08/04/18 15:10 08/04/18 15:10 08/04/18 15:10 Oxygen Flow Rate (L/min) 2 Oxygen Delivery Method Room Air Weight: 87.5 kg Body Mass Index (BMI) 29.2 Intake and Output for Last 24 Hours 08/02/18 08/03/18 08/04/18 23:59 23:59 23:59 Intake Total 2133 / 2133 3602 / 3602 2424 / 2424 Output Total 1690 / 1690 2543 / 2543 3400 / 3400 Balance 443 / 443 1059 / 1059 -976 / -976 Microbiology Past 72 Hours 07/28/18 12:00 Blood Culture (Wb) - Central Line Blood Culture - Final No growth in 5 days. Laboratory Results 08/03/18 17:59: POC Glucose 147 H 08/03/18 23:37: POC Glucose 173 H 08/04/18 04:30: Sodium 138, Potassium 4.6, Chloride 106, Carbon Dioxide 25.0, Anion Gap 7, BUN 47 H, Creatinine 1.04 H, Estim Creat Clear Calc 39.72, Est GFR (MDRD) Af Amer 65, Est GFR (MDRD) Non-Af 54 L, BUN/Creatinine Ratio 45.2 H, Glucose 147 H, Calcium 7.6 L 08/04/18 05:16: POC Glucose 159 H 08/04/18 11:55: POC Glucose 182 H 08/04/18 17:00: POC Glucose 152 H Current Medications Acetaminophen (Tylenol) 650 mg PO Q6H PRN PRN PRN Reason: Mild Pain (1-3)/Temp > 100.7 F Albuterol/Ipratropium (Duoneb) 3 ml INHALATION Q4H PRN PRN PRN Reason: SHORTNESS OF BREATH Amiodarone HCl (Cordarone) 200 mg PO BID [facility] Stop: 08/08/18 22:01 Last Admin: 08/04/18 09:12 Dose: 200 mg Amiodarone HCl (Cordarone) 200 mg PO DAILY [facility] Budesonide (Pulmicort Aerosol) 0.5 mg INHALATION BID.RT [facility] Last Admin: 08/04/18 07:31 Dose: 0.5 mg Dextrose (D50w Syringe) 0 gm IV X1 PRN; Protocol PRN Reason: Hypoglycemia Docusate Sodium (Colace Syrup) 100 mg PO BID [facility] Last Admin: 08/04/18 09:12 Dose: 100 mg Glucagon () 1 mg IM .X1 PRN PRN Reason: Hypoglycemia Heparin Sodium (Porcine) (Heparin Na) 5,000 unit SC BID [facility] Last Admin: 08/04/18 09:01 Dose: 5,000 unit Sodium Chloride () 250 mls @ 15 mls/hr IV .[id number] PRN PRN Reason: SALINE FLUSH Last Admin: 07/21/18 09:47 Dose: 15 mls/hr Sodium Chloride () 250 mls @ 15 mls/hr IV .[id number] PRN PRN Reason: SALINE FLUSH Pantoprazole Sodium 40 mg/ (Sodium Chloride) 110 mls @ 330 mls/hr IV Q24 [facility] Last Admin: 08/04/18 09:00 Dose: 330 mls/hr Multivitamins 5 ml/ Chromium/Copper/Manganese/Seleni/Zn 0.5 ml/ Folic Acid 0.5 mg/ Sodium Acetate 40 meq/ Sodium Phosphate 6 mm/ Potassium Chloride 20 meq/ Magnesium Sulfate 1 gm/ Insulin Human Lispro 55 unit/ Amino Acids 400 ml/ Amino Acids 1,440.15 mls @ 98 mls/hr IV .[id number] [facility]; Protocol Stop: 08/04/18 21:23 Last Admin: 08/04/18 09:01 Dose: 98 mls/hr Multivitamins 5 ml/ Chromium/Copper/Manganese/Seleni/Zn 0.5 ml/ Folic Acid 0.5 mg/ Sodium Acetate 40 meq/ Potassium Chloride 10 meq/ Magnesium Sulfate 0.5 gm/ Insulin Human Lispro 60 unit/ Amino Acids 400 ml/ Amino Acids 1,432.2 mls @ 120 mls/hr IV .[id number] [facility]; Protocol Stop: 08/05/18 15:52 Last Admin: 08/04/18 16:50 Dose: 120 mls/hr Fat Emulsion Intravenous (Intralipid 20%) 250 mls @ 21 mls/hr IV X1 ONE Stop: 08/05/18 04:24 Last Admin: 08/04/18 16:50 Dose: 21 mls/hr Insulin Glargine (Lantus (Bkc)) 10 units SC ,18 [facility] Last Admin: 08/04/18 17:01 Dose: 10 units Insulin Human Lispro (Humalog Kwikpen (Bkc)) 0 unit SC Q6 [facility]; Protocol Last Admin: 08/04/18 17:01 Dose: 3 u Magnesium Hydroxide (Milk Of Magnesia) 30 ml PO DAILY PRN PRN PRN Reason: Constipation Metoprolol Tartrate (Lopressor (Beta Jose)) 5 mg IV Q6 PRN PRN Reason: TO CONTROL HEART RATE Last Admin: 07/21/18 19:35 Dose: 2.5 mg Metoprolol Tartrate (Lopressor (Beta Jose)) 25 mg PO BID [facility] Last Admin: 08/04/18 09:12 Dose: 25 mg Morphine Sulfate () 1 mg IV Q4H PRN PRN PRN Reason: SEVERE PAIN (6-10/10) Nystatin (Nystatin) 500,000 unit PO 4X/DAY [facility] Last Admin: 08/04/18 17:03 Dose: 500,000 unit Ondansetron HCl (Zofran) 4 mg IV Q8H PRN PRN PRN Reason: NAUSEA Last Admin: 07/29/18 06:22 Dose: 4 mg Sodium Chloride () 10 - 40 ml IV UD PRN PRN Reason: MULTILUMEN/HICMAN CATH FLUSH Last Admin: 08/04/18 09:02 Dose: 10 ml Medical Necessity - Tobacco Use Smoking Status: Never smoker Tobacco Use: Non-smoker Assessment/Plan All Active Problems (Last Reviewed 03/01/18 @ 13:10 by Victoria Fu) Large bowel perforation (Acute) Septic shock (Acute) DEMETRA (acute kidney injury) (Acute) Pneumococcal pneumonia (Acute) SVT (supraventricular tachycardia) (Acute) 82 year old F with multiple comorbidities significant for Takusubo cardiomyopathy with SVTs, hypertension, type II DM, resident in a long-term admitted with complaints of confusion and not feeling well as well as being diaphoretic. 1. Septic shock secondary to acute peritonitis secondary to perforated descending colon, status post surgery, resolved 2. Clostridium clostridiforme in a single blood culture, repeat cultures have been negative, wound cultures growing E. coli, Acinetobacter, multiple anaerobes, recent abdominal CT on 07/28/18 showed no abscess, on meropenem, ID following, antibiotics will be stopped today 3. Post-op/ICU delirium, resolved 4. 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 Type II DM, blood sugars are fairly stable, continue on Accu-Cheks with insulin sliding scale 6. DEMETRA, creatinine continues to improve 7. Hypokalemia, hypomagnesemia, replaced 8. History of SVT, in NSR, on amiodarone, neurology following 9. Hypertension, controlled, will continue with prn metoprolol 10. COPD, not in acute exacerbation 11. Hypothyroidism, off Synthroid, on account of NPO status, may need to replace IV if NPO persists 12. DVT PPx- Heparin SC Code Visit Inpatient E&M: 96009 Subs Hosp L2
--- NOTE | 2018-08-04 18:18 | PN_ITS ---
Patient Problems: Active and Suspected Problems (Last Reviewed 03/01/18 @ 13:10 by Victoria Fu) Large bowel perforation (Acute) Septic shock (Acute) Subjective: Patient was seen and examined. She was admitted on 07/20/2018(day 15 of admission). Has some bowel movement in her colostomy, still has NG tube in situ. General surgery following Denies any complaints including pain Review of systems is negative except for progressive weakness Objective: Physical exam: General: Alert, Oriented x3, Cooperative, No apparent distress, - HEENT: Atraumatic, PERRLA, EOMI, Normocephalic Oral: Moist Mucosa Neck: Supple, No JVD, Negative Carotid Bruits Lungs: Clear to auscultation, Normal air movement, Diminished - at the lung bases Cardiovascular: Regular rate, Regular Rhythm, Normal S1, Normal S2, No murmurs Abdomen: Bowel Sounds Present, Soft, Non Tender, Non-Distended, No Hepato- splenomegaly, Active Bowel Sounds, - - Colostomy bag in situ, liquid brownish green feces in bag, midline yuriy in situ, mild erythema of the incision, no discharge Extremities: No edema, Capillary Refill Less than 3 Seconds Skin: No rashes, No breakdown Musculoskeletal: No Tenderness to Palpation of Joints or Extremities Lymphatic: No Cervical, Supraclavicular, or Inguinal Adenopathy Neurological: Cranial nerves II-XII grossly intact, Neuro grossly intact Psych/Mental Status: Normal Affect, Appropriate Vitals/I&O's: Vital Signs Temp Pulse Resp BP Pulse Ox 98.6 F 78 18 128/56 H 99 08/04/18 15:10 08/04/18 15:10 08/04/18 15:10 08/04/18 15:10 08/04/18 15:10 Oxygen Flow Rate (L/min) 2 Oxygen Delivery Method Room Air Weight: 87.5 kg Body Mass Index (BMI) 29.2 Intake and Output for Last 24 Hours 08/02/18 08/03/18 08/04/18 23:59 23:59 23:59 Intake Total 2133 / 2133 3602 / 3602 2424 / 2424 Output Total 1690 / 1690 2543 / 2543 3400 / 3400 Balance 443 / 443 1059 / 1059 -976 / -976 Microbiology Past 72 Hours 07/28/18 12:00 Blood Culture (Wb) - Central Line Blood Culture - Final No growth in 5 days. Laboratory Results 08/03/18 17:59: POC Glucose 147 H 08/03/18 23:37: POC Glucose 173 H 08/04/18 04:30: Sodium 138, Potassium 4.6, Chloride 106, Carbon Dioxide 25.0, Anion Gap 7, BUN 47 H, Creatinine 1.04 H, Estim Creat Clear Calc 39.72, Est GFR (MDRD) Af Amer 65, Est GFR (MDRD) Non-Af 54 L, BUN/Creatinine Ratio 45.2 H, Glucose 147 H, Calcium 7.6 L 08/04/18 05:16: POC Glucose 159 H 08/04/18 11:55: POC Glucose 182 H 08/04/18 17:00: POC Glucose 152 H Current Medications Acetaminophen (Tylenol) 650 mg PO Q6H PRN PRN PRN Reason: Mild Pain (1-3)/Temp > 100.7 F Albuterol/Ipratropium (Duoneb) 3 ml INHALATION Q4H PRN PRN PRN Reason: SHORTNESS OF BREATH Amiodarone HCl (Cordarone) 200 mg PO BID [facility] Stop: 08/08/18 22:01 Last Admin: 08/04/18 09:12 Dose: 200 mg Amiodarone HCl (Cordarone) 200 mg PO DAILY [facility] Budesonide (Pulmicort Aerosol) 0.5 mg INHALATION BID.RT [facility] Last Admin: 08/04/18 07:31 Dose: 0.5 mg Dextrose (D50w Syringe) 0 gm IV X1 PRN; Protocol PRN Reason: Hypoglycemia Docusate Sodium (Colace Syrup) 100 mg PO BID [facility] Last Admin: 08/04/18 09:12 Dose: 100 mg Glucagon () 1 mg IM .X1 PRN PRN Reason: Hypoglycemia Heparin Sodium (Porcine) (Heparin Na) 5,000 unit SC BID [facility] Last Admin: 08/04/18 09:01 Dose: 5,000 unit Sodium Chloride () 250 mls @ 15 mls/hr IV .[id number] PRN PRN Reason: SALINE FLUSH Last Admin: 07/21/18 09:47 Dose: 15 mls/hr Sodium Chloride () 250 mls @ 15 mls/hr IV .[id number] PRN PRN Reason: SALINE FLUSH Pantoprazole Sodium 40 mg/ (Sodium Chloride) 110 mls @ 330 mls/hr IV Q24 [facility] Last Admin: 08/04/18 09:00 Dose: 330 mls/hr Multivitamins 5 ml/ Chromium/Copper/Manganese/Seleni/Zn 0.5 ml/ Folic Acid 0.5 mg/ Sodium Acetate 40 meq/ Sodium Phosphate 6 mm/ Potassium Chloride 20 meq/ Magnesium Sulfate 1 gm/ Insulin Human Lispro 55 unit/ Amino Acids 400 ml/ Amino Acids 1,440.15 mls @ 98 mls/hr IV .[id number] [facility]; Protocol Stop: 08/04/18 21:23 Last Admin: 08/04/18 09:01 Dose: 98 mls/hr Multivitamins 5 ml/ Chromium/Copper/Manganese/Seleni/Zn 0.5 ml/ Folic Acid 0.5 mg/ Sodium Acetate 40 meq/ Potassium Chloride 10 meq/ Magnesium Sulfate 0.5 gm/ Insulin Human Lispro 60 unit/ Amino Acids 400 ml/ Amino Acids 1,432.2 mls @ 120 mls/hr IV .[id number] [facility]; Protocol Stop: 08/05/18 15:52 Last Admin: 08/04/18 16:50 Dose: 120 mls/hr Fat Emulsion Intravenous (Intralipid 20%) 250 mls @ 21 mls/hr IV X1 ONE Stop: 08/05/18 04:24 Last Admin: 08/04/18 16:50 Dose: 21 mls/hr Insulin Glargine (Lantus (Bkc)) 10 units SC ,18 [facility] Last Admin: 08/04/18 17:01 Dose: 10 units Insulin Human Lispro (Humalog Kwikpen (Bkc)) 0 unit SC Q6 [facility]; Protocol Last Admin: 08/04/18 17:01 Dose: 3 u Magnesium Hydroxide (Milk Of Magnesia) 30 ml PO DAILY PRN PRN PRN Reason: Constipation Metoprolol Tartrate (Lopressor (Beta Jose)) 5 mg IV Q6 PRN PRN Reason: TO CONTROL HEART RATE Last Admin: 07/21/18 19:35 Dose: 2.5 mg Metoprolol Tartrate (Lopressor (Beta Jose)) 25 mg PO BID [facility] Last Admin: 08/04/18 09:12 Dose: 25 mg Morphine Sulfate () 1 mg IV Q4H PRN PRN PRN Reason: SEVERE PAIN (6-10/10) Nystatin (Nystatin) 500,000 unit PO 4X/DAY [facility] Last Admin: 08/04/18 17:03 Dose: 500,000 unit Ondansetron HCl (Zofran) 4 mg IV Q8H PRN PRN PRN Reason: NAUSEA Last Admin: 07/29/18 06:22 Dose: 4 mg Sodium Chloride () 10 - 40 ml IV UD PRN PRN Reason: MULTILUMEN/HICMAN CATH FLUSH Last Admin: 08/04/18 09:02 Dose: 10 ml Medical Necessity - Tobacco Use Smoking Status: Never smoker Tobacco Use: Non-smoker Assessment/Plan All Active Problems (Last Reviewed 03/01/18 @ 13:10 by Victoria Fu) Large bowel perforation (Acute) Septic shock (Acute) DEMETRA (acute kidney injury) (Acute) Pneumococcal pneumonia (Acute) SVT (supraventricular tachycardia) (Acute) 82 year old F with multiple comorbidities significant for Takusubo cardiomyopathy with SVTs, hypertension, type II DM, resident in a residential admitted with complaints of confusion and not feeling well as well as being diaphoretic. 1. Septic shock secondary to acute peritonitis secondary to perforated descending colon, status post surgery, resolved 2. Clostridium clostridiforme in a single blood culture, repeat cultures have been negative, wound cultures growing E. coli, Acinetobacter, multiple anaerobes, recent abdominal CT on 07/28/18 showed no abscess, on meropenem, ID following, antibiotics will be stopped today 3. Post-op/ICU delirium, resolved 4. 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 Type II DM, blood sugars are fairly stable, continue on Accu-Cheks with insulin sliding scale 6. DEMETRA, creatinine continues to improve 7. Hypokalemia, hypomagnesemia, replaced 8. History of SVT, in NSR, on amiodarone, neurology following 9. Hypertension, controlled, will continue with prn metoprolol 10. COPD, not in acute exacerbation 11. Hypothyroidism, off Synthroid, on account of NPO status, may need to replace IV if NPO persists 12. DVT PPx- Heparin SC Code Visit Inpatient E&M: 24447 Subs Hosp L2
[2018-08-04 23:15] LABS: Bedside Glucose 143 mg/dL (70-110)
[2018-08-05] VITALS (13 sets, daily range): BP systolic 104–122; BP diastolic 45–76; PULSE 69–82; RESP 16–22; TEMP 36.7–37.1; O2SAT 96–100
[2018-08-05 05:31] LABS: Bedside Glucose 134 mg/dL (70-110)
--- NOTE | 2018-08-05 06:51 | PCM.PN.SRG ---
Patient Problems: Active and Suspected Problems (Last Reviewed 03/01/18 @ 13:10 by Victoria Fu) Large bowel perforation (Acute) Septic shock (Acute) Subjective: Patient evaluated resting comfortably in bed. NG tube removed last night. Patient denies nausea, vomiting. She denies abdominal pain. She has not had clear thickened liquids as of yet. She denies new concerns or complaints. - Physical Exam General: Alert, Oriented x3, Cooperative Abdomen: Bowel Sounds Present, Soft, Non Tender, Non-Distended, - - Midline incision with dehiscence, currently packing with wet to dry dressing changes. Remaining incision intact. Ostomy- pink. No flatus or stool within the bag currently. Vital Signs Temp Pulse Resp BP Pulse Ox 98.1 F 78 18 122/45 H 98 08/05/18 03:45 08/05/18 03:45 08/05/18 03:45 08/05/18 03:45 08/05/18 03:45 Oxygen Flow Rate (L/min) 2 Oxygen Delivery Method Room Air Weight: 192 lb 14.472 oz Body Mass Index (BMI) 29.2 Intake and Output for Last 24 Hours 08/03/18 08/04/18 08/05/18 23:59 23:59 23:59 Intake Total 3502 / 3502 3351 / 3351 782 / 782 Output Total 2743 / 2743 4102 / 4102 250 / 250 Balance 759 / 759 -751 / -751 532 / 532 Microbiology Past 72 Hours 07/28/18 12:00 Blood Culture - Final Blood Culture (Wb) - Central Line No growth in 5 days. POC Glucose 08/05/18 08/04/18 08/04/18 05:22 23:05 17:00 POC Glucose 134 H 143 H 152 H 08/04/18 11:55 POC Glucose 182 H Medical Necessity - Tobacco Use Smoking Status: Never smoker Tobacco Use: Non-smoker Assessment/Plan All Active Problems (Last Reviewed 03/01/18 @ 13:10 by Victoria Fu) Large bowel perforation (Acute) Septic shock (Acute) DEMETRA (acute kidney injury) (Acute) Pneumococcal pneumonia (Acute) SVT (supraventricular tachycardia) (Acute) I am following this patient in conjunction with Dr. Dubois in Dr. Young's absence. S/p emergent exploratory lap with left april-colectomy with end colostomy. Continue with wet to dry dressing changes twice daily Diet according to speech therapy who needs to re-evaluate patient prior to restarting diet. Will hold Ensure clear. Continue therapy Abdominal wound culture pending No labs ordered We will continue to monitor this patient Code Visit Inpatient E&M: 00505 Subs Hosp L1 - POST-OP; NO CHARGE
--- NOTE | 2018-08-05 06:55 | PN.SURG_ITS ---
Patient Problems: Active and Suspected Problems (Last Reviewed 03/01/18 @ 13:10 by Victoria Fu) Large bowel perforation (Acute) Septic shock (Acute) Subjective: Patient evaluated resting comfortably in bed. NG tube removed last night. Patient denies nausea, vomiting. She denies abdominal pain. She has not had clear thickened liquids as of yet. She denies new concerns or complaints. - Physical Exam General: Alert, Oriented x3, Cooperative Abdomen: Bowel Sounds Present, Soft, Non Tender, Non-Distended, - - Midline incision with dehiscence, currently packing with wet to dry dressing changes. Remaining incision intact. Ostomy- pink. No flatus or stool within the bag currently. Vital Signs Temp Pulse Resp BP Pulse Ox 98.1 F 78 18 122/45 H 98 08/05/18 03:45 08/05/18 03:45 08/05/18 03:45 08/05/18 03:45 08/05/18 03:45 Oxygen Flow Rate (L/min) 2 Oxygen Delivery Method Room Air Weight: 192 lb 14.472 oz Body Mass Index (BMI) 29.2 Intake and Output for Last 24 Hours 08/03/18 08/04/18 08/05/18 23:59 23:59 23:59 Intake Total 3502 / 3502 3351 / 3351 782 / 782 Output Total 2743 / 2743 4102 / 4102 250 / 250 Balance 759 / 759 -751 / -751 532 / 532 Microbiology Past 72 Hours 07/28/18 12:00 Blood Culture - Final Blood Culture (Wb) - Central Line No growth in 5 days. POC Glucose 08/05/18 08/04/18 08/04/18 05:22 23:05 17:00 POC Glucose 134 H 143 H 152 H 08/04/18 11:55 POC Glucose 182 H Medical Necessity - Tobacco Use Smoking Status: Never smoker Tobacco Use: Non-smoker Assessment/Plan All Active Problems (Last Reviewed 03/01/18 @ 13:10 by Victoria Fu) Large bowel perforation (Acute) Septic shock (Acute) DEEMTRA (acute kidney injury) (Acute) Pneumococcal pneumonia (Acute) SVT (supraventricular tachycardia) (Acute) I am following this patient in conjunction with Dr. Dubois in Dr. Young's absence. S/p emergent exploratory lap with left april-colectomy with end colostomy. Continue with wet to dry dressing changes twice daily Diet according to speech therapy who needs to re-evaluate patient prior to restarting diet. Will hold Ensure clear. Continue therapy Abdominal wound culture pending No labs ordered We will continue to monitor this patient Code Visit Inpatient E&M: 73336 Subs Hosp L1 - POST-OP; NO CHARGE
[2018-08-05] MEDS: Budesonide Respules 0.5 MG/2 ML AMPUL.NEB. INHALATION (07:40)
[2018-08-05] MEDS: Amiodarone 200 MG Tablet PO ×2 (09:31→21:03)
[2018-08-05] MEDS: Docusate Sodium 100 MG/10 ML UDC PO ×2 (09:31→21:03)
[2018-08-05] MEDS: NYSTATIN 500,000 UNIT/5 ML UDC 500000 UNIT PO ×4 (09:31→21:03)
[2018-08-05] MEDS: Heparin Injection (Vial) 5,000 UNIT/ML VIAL 5000 UNIT SC ×2 (09:31→21:05)
[2018-08-05] MEDS: Metoprolol Tartrate 25 MG Tablet PO ×2 (09:31→21:05)
--- NOTE | 2018-08-05 10:42 | NS ---
Speech therapy recommending honey thick liquids at this time. Pt is on a clear liquid diet w/ Ensure Clear supplement ordered. Per [facility] product reps, Ensure Clear cannot safely be thickened- product separates rapidly. For patient to safely have a high-protein oral nutrition supplement, diet would need to be advanced to full liquids or Ensure Enlive would need to be ok'd by physician. Discussed w/ MARNI Noriega and Leann, [employer] ROOM OPERATOR that Ensure Clear is not appropriate while pt is on honey thick liquids. Discussed w/ TAMIKO Malik. Tana Houston MS, RDN, LD
--- NOTE | 2018-08-05 10:44 | PCM.PN.ID ---
Patient Problems: Active and Suspected Problems (Last Reviewed 03/01/18 @ 13:10 by Victoria Fu) Large bowel perforation (Acute) Septic shock (Acute) Subjective: Feeling ok. NG pulled, diet advanced. No fever. - Physical Exam General: Alert, Cooperative, No apparent distress Lungs: Clear to auscultation, Normal air movement Cardiovascular: Regular rate, Regular Rhythm Abdomen: Soft, Non Tender, Non-Distended Skin: No rashes Vital Signs Temp Pulse Resp BP Pulse Ox 98.4 F 72 18 121/53 H 100 08/05/18 09:30 08/05/18 09:31 08/05/18 09:30 08/05/18 09:30 08/05/18 09:30 Oxygen Flow Rate (L/min) 2 Oxygen Delivery Method Room Air Weight: 85.8 kg Body Mass Index (BMI) 29.2 Intake and Output for Last 24 Hours 08/03/18 08/04/18 08/05/18 23:59 23:59 23:59 Intake Total 3502 / 3502 3351 / 3351 782 / 782 Output Total 2743 / 2743 4102 / 4102 250 / 250 Balance 759 / 759 -751 / -751 532 / 532 Microbiology Past 72 Hours 08/04/18 08:50 Gram Stain - Final Wound - Abdominal 07/28/18 12:00 Blood Culture - Final Blood Culture (Wb) - Central Line No growth in 5 days. POC Glucose 08/05/18 08/04/18 08/04/18 05:22 23:05 17:00 POC Glucose 134 H 143 H 152 H 08/04/18 11:55 POC Glucose 182 H Medical Necessity - Tobacco Use Smoking Status: Never smoker Tobacco Use: Non-smoker Route of nutrition/ use of supplements: [] Nutritional Intake: [] IV Site: [] Benitez Catheter: [] - Assessment/Plan Antibiotics: [] Assessment/Plan: [] Active and Suspected Problems (Last Reviewed 03/01/18 @ 13:10 by Vicotria Fu) Large bowel perforation (Acute) Septic shock (Acute) Septic shock improved. Single bcx with clostridium and prior surg cx with ecoli, Acinetobacter, and multiple anaerobes. Her acinetobacter was R to unasyn. CT showed no abscess. Suspect most likely explanation of persistent wbc is hard stool and little ostomy output. Covered for pneumonia as well. Wbc now normal. Stopped meropenem 08/04 after 8 day course. Some drainage from incision sent for cx, neg so far. Will follow
[2018-08-05] MEDS: Insulin Lispro 100 UNIT/ML INSULN.PEN SC ×3 (11:35→21:04)
[2018-08-05 11:51] LABS: Bedside Glucose 190 mg/dL (70-110)
--- NOTE | 2018-08-05 14:03 | PCM.PROGNOTE ---
Patient Problems: Active and Suspected Problems (Last Reviewed 03/01/18 @ 13:10 by Victoria Fu) Large bowel perforation (Acute) Septic shock (Acute) Subjective: Tolerating thickened clear liquids. No n/v. No cough/sob. No fever/chills. No abdominal pain or ostomy irritation. - Physical Exam General: Alert, Oriented x3, Cooperative HEENT: Atraumatic, PERRLA, EOMI, Normocephalic Neck: Supple, No JVD, Negative Carotid Bruits Lungs: Clear to auscultation, Normal air movement Cardiovascular: Regular rate, No murmurs Abdomen: Bowel Sounds Present, Soft, Non Tender Extremities: No edema, Capillary Refill Less than 3 Seconds Skin: No rashes, No breakdown Musculoskeletal: No Tenderness to Palpation of Joints or Extremities Neurological: Cranial nerves II-XII grossly intact Psych/Mental Status: Normal Affect, Appropriate, Alert and oriented to time, place, person, mood and affect Vital Signs Temp Pulse Resp BP Pulse Ox 98.4 F 73 18 121/53 H 100 08/05/18 09:30 08/05/18 11:07 08/05/18 09:30 08/05/18 09:30 08/05/18 09:30 Oxygen Flow Rate (L/min) 2 Oxygen Delivery Method Room Air Weight: 189 lb 2.506 oz Body Mass Index (BMI) 29.2 Intake and Output for Last 24 Hours 08/03/18 08/04/18 08/05/18 23:59 23:59 23:59 Intake Total 3502 / 3502 3351 / 3351 1731 / 1731 Output Total 2743 / 2743 4102 / 4102 960 / 960 Balance 759 / 759 -751 / -751 771 / 771 Microbiology Past 72 Hours 08/04/18 08:50 Gram Stain - Final Wound - Abdominal Wound Culture - Preliminary Gram negative seng 07/28/18 12:00 Blood Culture - Final Blood Culture (Wb) - Central Line No growth in 5 days. POC Glucose 08/05/18 08/05/18 08/04/18 11:33 05:22 23:05 POC Glucose 190 H 134 H 143 H 08/04/18 17:00 POC Glucose 152 H Medical Necessity - Tobacco Use Smoking Status: Never smoker Tobacco Use: Non-smoker Assessment/Plan All Active Problems (Last Reviewed 03/01/18 @ 13:10 by Victoria Fu) Large bowel perforation (Acute) Septic shock (Acute) DEMETRA (acute kidney injury) (Acute) Pneumococcal pneumonia (Acute) SVT (supraventricular tachycardia) (Acute) 1. Septic shock secondary to acute peritonitis secondary to perforated descending colon, status post surgery, resolved. ID following. Abx dc'd today. Completed 8 days meropenem. One Blood cx with Clostridium clostridiforme, repeat cultures negative, wound cultures growing E. coli, Acinetobacter, multiple anaerobes, recent abdominal CT on 07/28/18 showed no abscess. 2. Post-op/ICU delirium, resolved 3. Acute perforated descending colon, status post exploratory laparotomy, left colon resection and end colostomy on 07/20/2018, general surgery following On TPN for postop ileus. Diet advanced to thickened clears. Defer advancement to gen surgery. 4. Type II DM - SSI 5. DEMETRA - resolved 6. History of SVT - NSR. 7. Hypertension - stable 8. COPD, not in acute exacerbation 9. Hypothyroidism - resume synthroid DVT PPx- Heparin Discharge planning: Pending ability to advance diet and discontinue TPN. SNF at [place]. This patient was seen by King Munguia PA-C under the supervision of Doctor Almendarez.
[2018-08-05 17:45] LABS: Bedside Glucose 179 mg/dL (70-110)
[2018-08-05] MEDS: traZODone 50 MG Tablet PO (21:08)
[2018-08-05] MEDS: Tolterodine Tartrate 2 MG CAP.SA PO (21:08)
[2018-08-05] MEDS: Pantoprazole Sodium 40 MG Tablet PO (21:08)
[2018-08-05] MEDS: Atorvastatin Calcium 20 MG Tablet PO (21:08)
[2018-08-05 21:11] LABS: Bedside Glucose 153 mg/dL (70-110)
[2018-08-06] VITALS (8 sets, daily range): BP systolic 116–131; BP diastolic 54–68; PULSE 67–88; RESP 16–20; TEMP 36.9–37.4; O2SAT 95–96
[2018-08-06 05:54] LABS: Hematocrit 24.5 % (37-47); Hemoglobin 8.2 g/dl (12.0-15.0); Mean Corp Hgb Conc 33.5 g/gl (32-36); Mean Corpuscular Hgb 32.2 pg (27.0-32.0); Mean Corpuscular Volume 96.1 fL (81-99); Platelet Count 344 K/mm3 (150-450); RBC Distribution Width CV 16.4 % (11.6-14.6); RBC Distribution Width SD 55.2 fl (35.1-43.9); Red Blood Count 2.55 M/mm3 (4.2-5.4); White Blood Count 7.3 K/mm3 (4.4-11.0)
[2018-08-06 05:55] LABS: Scan Indicated on CBC? Y/N NO
[2018-08-06 06:17] LABS: Anion Gap 8 (5-15); BUN 63 mg/dL (7-18); Calcium,Total 8.2 mg/dL (8.5-10.1); Chloride 106 mmol/L (98-107); Creatinine, Serum 1.26 mg/dL (0.55-1.02); EST Glomerular Filtration Rate 43 mL/min (>60); Est Glom Filt Rate - Afr Amer 52 mL/min (>60); Estimated Creatinine Clearance 32.78 ml/min; Glucose 187 mg/dL (74-106); Potassium 4.6 mmol/L (3.5-5.1); Sodium Level 138 mmol/L (136-145)
[2018-08-06] MEDS: Levothyroxine 25 MCG TABLET PO (06:37)
[2018-08-06 06:45] LABS: Bedside Glucose 186 mg/dL (70-110)
[2018-08-06] MEDS: Budesonide Respules 0.5 MG/2 ML AMPUL.NEB. INHALATION (06:52)
[2018-08-06] MEDS: Ipratropium/Albuterol Sulfate 3 ML AMPUL.NEB INHALATION ×2 (06:52→12:50)
[2018-08-06] MEDS: Docusate Sodium 100 MG/10 ML UDC PO (09:56)
[2018-08-06] MEDS: Aspirin 81 MG TAB.CHEW PO (09:56)
[2018-08-06] MEDS: Amiodarone 200 MG Tablet PO (09:56)
[2018-08-06] MEDS: Metoprolol Tartrate 25 MG Tablet PO (09:57)
[2018-08-06] MEDS: Pantoprazole Sodium 40 MG Tablet PO (09:57)
[2018-08-06] MEDS: Cyanocobalamin 500 MCG Tablet 1000 MCG PO (09:57)
[2018-08-06] MEDS: Heparin Injection (Vial) 5,000 UNIT/ML VIAL 5000 UNIT SC (10:06)
[2018-08-06] MEDS: Insulin Lispro 100 UNIT/ML INSULN.PEN SC ×2 (10:07→13:01)
[2018-08-06] MEDS: NYSTATIN 500,000 UNIT/5 ML UDC 500000 UNIT PO (10:12)
--- NOTE | 2018-08-06 11:31 | PCM.TXEXTCAR ---
- Diet 08/05/18 11:05 Diet: Full Liquid Dietary Modifications:: Honey Thick Liquids Is pt able to select menu?: No Diet Comments: honey thick liquids Glucerna 120 mL 4x / day - Routine Orders/Code Status Routine Lab Work: CBC - 3 days, BMP - 3 days Code Status: DNC-A - Wound(s) midline abd Wound Type: Surgical Incision Dressing Change: Wet to Dry Dressing Mid upper chest Wound Type: Abrasion Left Hip Wound Type: Abrasion R Neck Wound Type: Puncture - Therapies Physical Therapy: Eval and Treat Occupational Therapy: Eval and Treat Speech Therapy: Eval and Treat - Problem/Diagnosis (1) Large bowel perforation Status: Acute Current Visit: Yes (2) Peritonitis Status: Acute Current Visit: Yes (3) Septic shock Status: Acute Current Visit: Yes (4) SVT (supraventricular tachycardia) Status: Acute Current Visit: No (5) DEMETRA (acute kidney injury) Status: Acute Current Visit: No (6) GERD (gastroesophageal reflux disease) Status: Chronic Current Visit: Yes (7) Dysphagia Status: Chronic Current Visit: Yes (8) Atherosclerotic heart disease of [place] coronary artery without angina pectoris Status: Chronic Comment: Mild Current Visit: No (9) COPD (chronic obstructive pulmonary disease) Status: Chronic Current Visit: No (10) Hyperlipidemia Status: Chronic Current Visit: No (11) Hypothyroidism Status: Chronic Current Visit: No (12) Takotsubo cardiomyopathy Status: Chronic Current Visit: No (13) Type 2 diabetes mellitus Status: Chronic Current Visit: No - Allergies/Procedures Done in Hospital Allergies/Adverse Reactions: Allergies codeine Allergy (Severe, Verified 07/20/18 08:52) HEART ATTACK levofloxacin [From Levaquin] Allergy (Severe, Verified 07/20/18 08:52) Anaphylaxis Sulfa (Sulfonamide Antibiotics) Allergy (Unknown, Verified 07/20/18 08:52) Unknown adhesive tape Allergy (Verified 07/20/18 08:52) Other citalopram Allergy (Verified 07/20/18 08:52) Unknown Latex, Natural Rubber Allergy (Verified 07/20/18 08:52) Rash Penicillins Allergy (Verified 07/20/18 08:52) Rash acetaminophen [From Vicodin] Adverse Reaction (Verified 07/20/18 08:52) Chest tightness hydrocodone bitartrate [From Vicodin] Adverse Reaction (Verified 07/20/18 08:52) Chest tightness Procedures: - - left colon resection, laparotomy, end colostomy, TPN - Type of Care/Length of Stay Estimated LOS: Convalescent Care Less Than 30 days Type of Care Needed: Skilled Rehab Potential: Fair Prognosis: Fair - Additional Orders/Day of Discharge Day of Discharge: 08/06/18 - Dietary and Speech Recommendations Dietitian Recommendations/Changes: Even as oral diet advanced, recommend TPN for nutrition support until adequate PO at meals/tolerance of diet is established. Rec 2L 5% AA/ 20% Dextrose to provide 1760 calories/100 g pro/day and 250 cc 20% Lipids 3x/wk to provide an additional 1500 calories/week. Would advance diet as tolerated to transitional diet w/ Glucerna 120 mL 4x/day w/ medpass- consistency per IT TECHNICAL ARCHITECT. - Follow Up Care Primary Care Physician: Clement Vizcarra MD [Primary Care Provider] - Please follow up with your Primary Care Physician in: 3-4 weeks Please Follow Up With: Aurora Young MD When: 1 week Please Follow Up With: Lokesh Pulliam MD When: 2 weeks Please Follow Up With: Charly Ross MD When: 2 weeks
--- NOTE | 2018-08-06 12:11 | CASEMGMT ---
Patient is ready for d/c today. Faxed orders to [facility]. Completed convalescent [facility]. [facility] get picked [facility] at 2p via cot. SW notified RN, board of education secretary, Stella at [facility], and called patient's daughter, Arabella letting her know. All in agreement with d/c plan. Plan: [facility] under skilled level of care on a convalescent stay. [facility] Marisel WHITE LEAD ENTERPRISE ARCHITECT
[2018-08-06 13:16] LABS: Bedside Glucose 221 mg/dL (70-110)
--- NOTE | 2018-08-06 13:57 | PCM.DC.SUM ---
Discharge Date and Diagnosis - Problem List Patient Problems: Active and Suspected Problems (Last Reviewed 03/01/18 @ 13:10 by Victoria Fu) Large bowel perforation (Acute) Septic shock (Acute) Peritonitis (Acute) Date of Admission: 07/20/18 Date of Discharge: 08/06/18 - Primary Discharge Diagnosis Active and Suspected Problems (Last Reviewed 03/01/18 @ 13:10 by Victoria Fu) Large bowel perforation (Acute) Septic shock (Acute) Peritonitis (Acute) Postop ileus Supraventricular tachycardia Acute metabolic encephalopathy / ICU delirium Acute kidney injury secondary to sepsis History: COPD Takotsubo cardiomyopathy CAD Hypothyroidism Hyperlipidemia Type 2 diabetes - Secondary Discharge Diagnosis Chronic Problems (Last Reviewed 03/01/18 @ 13:10 by Victoria Fu) GERD (gastroesophageal reflux disease) (Chronic) Dysphagia (Chronic) Takotsubo cardiomyopathy (Chronic) Nonrheumatic tricuspid (valve) insufficiency (Chronic) Atherosclerotic heart disease of [place] coronary artery without angina pectoris (Chronic) Mild Hypothyroidism (Chronic) COPD (chronic obstructive pulmonary disease) (Chronic) Hyperlipidemia (Chronic) Type 2 diabetes mellitus (Chronic) Hospital Course and Treatment Imaging Results: RAD/Abd Inc Decub and/or Erect IMPRESSION: Nonspecific bowel gas pattern. RAD/Abdomen Single View (Portable) IMPRESSION: The tip of the orogastric tube is in the body of the stomach. CT/Abdomen/Pel W ORAL Cont Only IMPRESSION: Persistent infiltrate in the right lower lobe with a small pleural effusion. Sludge is seen within the gallbladder lumen and possible tiny gallstones. A colostomy is seen in the left mid abdomen. Increased markings in the mesentery most likely secondary to prior surgery. Thickened small bowel loops in the left mid abdomen with surrounding increased markings in the peritoneal fat. There is no evidence of free air at this time. RAD/Chest 1 View IMPRESSION: Progressive increased markings at the right lung base. The endotracheal tube has been removed. RAD/Abdomen Single View (Portable) IMPRESSION: Moderate amount of fecal material is seen in the colon. A colostomy is seen in the left lower quadrant. Atelectasis and/or infiltrate in the right lower lobe. RAD/Chest 1 View (Portable) IMPRESSION: All the side port tubes are in good position. Stable increased markings at the lung bases suggesting bibasilar atelectasis. RAD/CXR for Line Placement IMPRESSION: The tip of the right internal jugular venous catheter is in the right atrium. Increased markings at the lung bases suggestive bibasilar atelectasis and/or scarring. CT/Abdomen/Pelvis without Cont IMPRESSION: Free intraperitoneal air as well as retroperitoneal air. Sigmoid diverticulosis and possible perforation of the sigmoid colon Bibasilar atelectasis. Stable left renal cyst. RAD/Chest 1 View (Portable) IMPRESSION: Free intraperitoneal air. The referring physician was notified. RAD/Chest 1 View (Portable) IMPRESSION: Findings suggestive of underlying atelectasis and/or scarring at the lung bases. Questionable free air beneath the right hemidiaphragm. A right side up decubitus view is recommended for further evaluation. Consultations 07/21/18 06:48 Consult: Onc/Wound/medical intern Routine Comment: Reason for Consult:: new colostomy Ion - deputy probation officer Natashaispaisa - Cardiology [facility]/[place] - gen surgery [facility] - [place] Operations: - - Exploratory laparotomy with left colon resection, colostomy Procedures: - - TPN, NG tube Summary of Care Provided: The patient is a 82 year old F past medical history as above who presented to the emergency room from long term facility with generalized malaise and confusion. She was found to be in septic shock with significant lactic acidosis, hypotension, hypoxia and found to have free intraperitoneal air possible perforated sigmoid colon on CT of the abdomen. She was felt to have septic shock secondary to acute peritonitis, perforated colon. General surgery was consulted and the patient was taken to the OR for exploratory laparotomy. She is found to have bowel perforation, and underwent a left colon resection and colostomy. Patient was taken to the ICU and placed on pressors. She was sedated and intubated. She was also found to have acute kidney injury on presentation, likely secondary to sepsis. Infectious disease was consulted and she was placed on ertapenem. Her cultures demonstrated E. coli, Bacteroides, multiple anaerobes Acinetobacter, Clostridium. She completed an 8-day course after which point infectious disease stopped meropenem. She was started on TPN while here which was managed by surgery. Eventually she was extubated on 07/23/18. She had an episode of SVT while here and cardiology was consulted. She was placed on amiodarone. Eventually she was able to start a diet, she had significant dysphagia and requires honey thickened liquids. TPN was discontinued and she was ordered to have dietary supplementation. Her diet was advanced to a cardiac diet with thickened liquids. Overall she continued to improve but remained severely debilitated. She will continue to need long term with PT OT and ST. She needs ongoing ostomy care. She is now in stable condition and being discharged back to long term. She will need to follow-up with general surgery in 1 week, infectious disease, cardiology, and her PCP. [] Discharge Diet: Low fat/ Low Cholesterol, 2000 mg Sodium Diet, - - Glucerna 4x/day, honey thick liquids Discharge Activity: Return to Normal Activity Home Medications: Medications to take at Discharge Levothyroxine [Synthroid] 25 mcg PO DAILY@0600 05/23/16 Trazodone HCl 50 mg PO QHS 05/23/16 Atorvastatin Calcium [Lipitor] 20 mg PO QHS 03/01/18 oxybutynin chloride ER 10 mg tablet,extended release 24 hr 10 mg PO QHS 03/01/18 Fluticasone/Salmeterol [Advair 500/50 Mcg Diskus] 1 puff INHALATION BID 06/04/18 Aspirin [Aspirin, Baby] 81 mg PO DAILY@0800 07/20/18 Cholecalciferol (Vitamin D3) [Vitamin D3] 1,000 unit PO DAILY 07/20/18 Cyanocobalamin (Vitamin B-12) [Vitamin B-12] 1,000 mcg PO DAILY 07/20/18 Acetaminophen [Tylenol Tablet] 650 mg PO Q6H PRN PRN tablet 08/06/18 Albuterol Aerosols [Ventolin Aerosols] 2.5 mg INHALATION Q2H PRN PRN vial.neb. 08/06/18 Amiodarone HCl [Cordarone] 200 mg PO BID tablet 08/06/18 Amiodarone HCl [Cordarone] 200 mg PO DAILY tablet 08/06/18 Glucerna Shake 120 ml PO 4X/DAY liquid 08/06/18 Insulin Glargine [Lantus SoloStar Pen] 10 units SC BID pen 08/06/18 Ipratropium/Albuterol Sulfate [Duoneb] 3 ml INHALATION Q6HWA.RT ampul.neb 08/06/18 Magnesium Hydroxide [Milk Of Magnesia] 30 ml PO DAILY PRN PRN udc 08/06/18 Metoprolol Tartrate [Lopressor (beta katty)] 25 mg PO BID tablet 08/06/18 Nystatin 500,000 unit PO 4X/DAY udc 08/06/18 Pantoprazole Sodium [Protonix] 40 mg PO BID tablet 08/06/18 Primary Care Physician: Clement Vizcarra MD [Primary Care Provider] - Please follow up with your Primary Care Physician in: 3-4 weeks Please Follow Up With: Aurora Young MD When: 1 week Please Follow Up With: Lokesh Pulliam MD When: 2 weeks Please Follow Up With: Charly Ross MD When: 2 weeks Disposition: Long-Term facility Minutes spent on discharge:: 40 Patient Condition:: Stable Medical Necessity - Tobacco Use Smoking Status: Never smoker Tobacco Use: Non-smoker Meaningful Use Info Meaningful Use Diagnoses (Choose all that apply): None applicable
--- NOTE | 2018-08-06 14:07 | DS.PCM_ITS ---
Discharge Date and Diagnosis - Problem List Patient Problems: Active and Suspected Problems (Last Reviewed 03/01/18 @ 13:10 by Victoria Fu) Large bowel perforation (Acute) Septic shock (Acute) Peritonitis (Acute) Date of Admission: 07/20/18 Date of Discharge: 08/06/18 - Primary Discharge Diagnosis Active and Suspected Problems (Last Reviewed 03/01/18 @ 13:10 by Victoria Fu) Large bowel perforation (Acute) Septic shock (Acute) Peritonitis (Acute) Postop ileus Supraventricular tachycardia Acute metabolic encephalopathy / ICU delirium Acute kidney injury secondary to sepsis History: COPD Takotsubo cardiomyopathy CAD Hypothyroidism Hyperlipidemia Type 2 diabetes - Secondary Discharge Diagnosis Chronic Problems (Last Reviewed 03/01/18 @ 13:10 by Victoria Fu) GERD (gastroesophageal reflux disease) (Chronic) Dysphagia (Chronic) Takotsubo cardiomyopathy (Chronic) Nonrheumatic tricuspid (valve) insufficiency (Chronic) Atherosclerotic heart disease of [place] coronary artery without angina pectoris (Chronic) Mild Hypothyroidism (Chronic) COPD (chronic obstructive pulmonary disease) (Chronic) Hyperlipidemia (Chronic) Type 2 diabetes mellitus (Chronic) Hospital Course and Treatment Imaging Results: RAD/Abd Inc Decub and/or Erect IMPRESSION: Nonspecific bowel gas pattern. RAD/Abdomen Single View (Portable) IMPRESSION: The tip of the orogastric tube is in the body of the stomach. CT/Abdomen/Pel W ORAL Cont Only IMPRESSION: Persistent infiltrate in the right lower lobe with a small pleural effusion. Sludge is seen within the gallbladder lumen and possible tiny gallstones. A colostomy is seen in the left mid abdomen. Increased markings in the mesentery most likely secondary to prior surgery. Thickened small bowel loops in the left mid abdomen with surrounding increased markings in the peritoneal fat. There is no evidence of free air at this time. RAD/Chest 1 View IMPRESSION: Progressive increased markings at the right lung base. The endotracheal tube has been removed. RAD/Abdomen Single View (Portable) IMPRESSION: Moderate amount of fecal material is seen in the colon. A colostomy is seen in the left lower quadrant. Atelectasis and/or infiltrate in the right lower lobe. RAD/Chest 1 View (Portable) IMPRESSION: All the side port tubes are in good position. Stable increased markings at the lung bases suggesting bibasilar atelectasis. RAD/CXR for Line Placement IMPRESSION: The tip of the right internal jugular venous catheter is in the right atrium. Increased markings at the lung bases suggestive bibasilar atelectasis and/or scarring. CT/Abdomen/Pelvis without Cont IMPRESSION: Free intraperitoneal air as well as retroperitoneal air. Sigmoid diverticulosis and possible perforation of the sigmoid colon Bibasilar atelectasis. Stable left renal cyst. RAD/Chest 1 View (Portable) IMPRESSION: Free intraperitoneal air. The referring physician was notified. RAD/Chest 1 View (Portable) IMPRESSION: Findings suggestive of underlying atelectasis and/or scarring at the lung bases. Questionable free air beneath the right hemidiaphragm. A right side up decubitus view is recommended for further evaluation. Consultations 07/21/18 06:48 Consult: Onc/Wound/washer machine Routine Comment: Reason for Consult:: new colostomy Ion - rn labor delivery Natashaispaisa - Cardiology [facility]/[place] - gen surgery [facility] - [place] Operations: - - Exploratory laparotomy with left colon resection, colostomy Procedures: - - TPN, NG tube Summary of Care Provided: The patient is a 82 year old F past medical history as above who presented to the emergency room from senior care facility with generalized malaise and confusion. She was found to be in septic shock with significant lactic acidosis, hypotension, hypoxia and found to have free intraperitoneal air possib le perforated sigmoid colon on CT of the abdomen. She was felt to have septic shock secondary to acute peritonitis, perforated colon. General surgery was consulted and the patient was taken to the OR for exploratory laparotomy. She is found to have bowel perforation, and underwent a left colon resection and colostomy. Patient was taken to the ICU and placed on pressors. She was sedated and intubated. She was also found to have acute kidney injury on presentation, likely secondary to sepsis. Infectious disease was consulted and she was placed on ertapenem. Her cultures demonstrated E. coli, Bacteroides, multiple anaerobes Acinetobacter, Clostridium. She completed an 8-day course after which point infectious disease stopped meropenem. She was started on TPN while here which was managed by surgery. Eventually she was extubated on 07/23/18. She had an episode of SVT while here and cardiology was consulted. She was placed on amiodarone. Eventually she was able to start a diet, she had significant dysphagia and requires honey thickened liquids. TPN was discontinued and she was ordered to have dietary supplementation. Her diet was advanced to a cardiac diet with thickened liquids. Overall she continued to improve but remained severely debilitated. She will continue to need senior care with PT OT and ST. She needs ongoing ostomy care. She is now in stable condition and being discharged back to senior care. She will need to follow-up with general surgery in 1 week, infectious disease, cardiology, and her PCP. [] Discharge Diet: Low fat/ Low Cholesterol, 2000 mg Sodium Diet, - - Glucerna 4x/day, honey thick liquids Discharge Activity: Return to Normal Activity Home Medications: Medications to take at Discharge Levothyroxine [Synthroid] 25 mcg PO DAILY@0600 05/23/16 Trazodone HCl 50 mg PO QHS 05/23/16 Atorvastatin Calcium [Lipitor] 20 mg PO QHS 03/01/18 oxybutynin chloride ER 10 mg tablet,extended release 24 hr 10 mg PO QHS 03/01/18 Fluticasone/Salmeterol [Advair 500/50 Mcg Diskus] 1 puff INHALATION BID 06/04/18 Aspirin [Aspirin, Baby] 81 mg PO DAILY@0800 07/20/18 Cholecalciferol (Vitamin D3) [Vitamin D3] 1,000 unit PO DAILY 07/20/18 Cyanocobalamin (Vitamin B-12) [Vitamin B-12] 1,000 mcg PO DAILY 07/20/18 Acetaminophen [Tylenol Tablet] 650 mg PO Q6H PRN PRN tablet 08/06/18 Albuterol Aerosols [Ventolin Aerosols] 2.5 mg INHALATION Q2H PRN PRN vial.neb. 08/06/18 Amiodarone HCl [Cordarone] 200 mg PO BID tablet 08/06/18 Amiodarone HCl [Cordarone] 200 mg PO DAILY tablet 08/06/18 Glucerna Shake 120 ml PO 4X/DAY liquid 08/06/18 Insulin Glargine [Lantus SoloStar Pen] 10 units SC BID pen 08/06/18 Ipratropium/Albuterol Sulfate [Duoneb] 3 ml INHALATION Q6HWA.RT ampul.neb 08/06/18 Magnesium Hydroxide [Milk Of Magnesia] 30 ml PO DAILY PRN PRN udc 08/06/18 Metoprolol Tartrate [Lopressor (beta katty)] 25 mg PO BID tablet 08/06/18 Nystatin 500,000 unit PO 4X/DAY udc 08/06/18 Pantoprazole Sodium [Protonix] 40 mg PO BID tablet 08/06/18 Primary Care Physician: Clement Vizcarra MD [Primary Care Provider] - Please follow up with your Primary Care Physician in: 3-4 weeks Please Follow Up With: Aurora Young MD When: 1 week Please Follow Up With: Lokesh Pulliam MD When: 2 weeks Please Follow Up With: Charly Ross MD When: 2 weeks Disposition: Senior Care facility Minutes spent on discharge:: 40 Patient Condition:: Stable Medical Necessity - Tobacco Use Smoking Status: Never smoker Tobacco Use: Non-smoker Meaningful Use Info Meaningful Use Diagnoses (Choose all that apply): None applicable
== END 2018-08-06 14:03 | disposition skilled nursing facility (03) | DRG 853 ==
LOC: ED 08:08 → ICU 09:18 → PCU 07-25 19:57
PROVIDERS: Internal Medicine; Internal Medicine Critical Care Medicine; Physician Assistant; Surgery; Admitting Provider Internal Medicine; Emergency Provider Emergency Medicine; Family Provider Family Medicine; PCP Family Medicine; Visit Provider Family Medicine
PROC: 0DTG0ZZ Resection of Left Large Intestine, Open Approach (ICD-10-PCS; CPT 49320; principal; 2018-07-20 10:10)
DX: A41.89 Other specified sepsis (principal); R65.21 Severe sepsis with septic shock; K63.1 Perforation of intestine (nontraumatic); G93.41 Metabolic encephalopathy; K65.0 Generalized (acute) peritonitis; N17.9 Acute kidney failure, unspecified; I47.1 Supraventricular tachycardia; I51.81 Takotsubo syndrome; Z23 Encounter for immunization; E03.9 Hypothyroidism, unspecified; A41.51 Sepsis due to Escherichia coli [E. coli]; E78.5 Hyperlipidemia, unspecified; I25.10 Atherosclerotic heart disease of native coronary artery without angina pectoris; K21.9 Gastro-esophageal reflux disease without esophagitis; J44.9 Chronic obstructive pulmonary disease, unspecified; D64.9 Anemia, unspecified; I12.9 Hypertensive chronic kidney disease with stage 1 through stage 4 chronic kidney disease, or unspecified chronic kidney disease; Z79.84 Long term (current) use of oral hypoglycemic drugs; N18.3 Chronic kidney disease, stage 3 (moderate); E11.22 Type 2 diabetes mellitus with diabetic chronic kidney disease
CPT/HCPCS: 31720; 36415; 36569; 36600; 51702; 71045; 74018; 74019; 74176; 80048; 80053; 80076; 81001; 82550; 82803; 82947; 82962; 83605; 83735; 84100; 84134; 84478; 84484; 85025; 85027; 85610; 85730; 86850; 86900; 86920; 86922; 87040; 87070; 87075; 87077; 87086; 87088; 87186; 87205; 88307; 92526; 93005; 94002; 94003; 94640; 94660; 94762; 95831; 97110; 97162; 97166; 97530; 97802; 97803; 99285; J2185; J2997; J7030; J7040; J7050; J7120; P9016; 90686; A4216; J0153; J0295; J0610; J1940; J2405; J3475; J3490

== ENCOUNTER 2018-08-25 08:55 | Outpatient (RCR) | payer MEDICARE, OTHER, SELFPAY ==
[2018-08-25 09:14] VITALS: BP 137/87; PULSE 64; RESP 18; TEMP 36.2; BMI 27.6
--- NOTE | 2018-08-25 12:45 | PCM.WC.HP ---
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 (2) Type 2 diabetes mellitus Status: Chronic Current Visit: Yes Qualifiers: Code(s): E11.9 - Type 2 diabetes mellitus without complications History of Present Illness Chief Complaint: Nonhealing surgical wound. History of Wound: Ms. Wynn is a very pleasant 82-year-old who is in a stable state of health until over a month ago when she was admitted to the hospital due to large bowel perforation. She subsequently had surgery and was discharged to a halfway facility however in the facility she had reopening of the surgical wound. Since reopening, she has had wet-to-dry dressings without any significant improvement. She was again seen by her general surgeon subsequently referred to the wound center for continued management of her nonhealing surgical wound. Currently on IV antibiotics. She denies any concerns at this time. 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 Takotsubo cardiomyopathy (Chronic) Nonrheumatic tricuspid (valve) insufficiency (Chronic) Atherosclerotic heart disease of [place] coronary artery without angina pectoris (Chronic) Mild Hypothyroidism (Chronic) COPD (chronic obstructive pulmonary disease) (Chronic) Hyperlipidemia (Chronic) Type 2 diabetes mellitus (Chronic) Surgical History: hysterectomy, total hip arthroplasty, - - Fractured femur, bilateral knee surgeries and bilateral hip surgeries Allergies/Adverse Reactions: Allergies codeine Allergy (Severe, Verified 08/25/18 09:39) HEART ATTACK levofloxacin [From Levaquin] Allergy (Severe, Verified 08/25/18 09:39) Anaphylaxis Sulfa (Sulfonamide Antibiotics) Allergy (Unknown, Verified 08/25/18 09:39) Unknown adhesive tape Allergy (Verified 08/25/18 09:39) Other citalopram Allergy (Verified 08/25/18 09:39) Unknown Latex, Natural Rubber Allergy (Verified 08/25/18 09:39) Rash Penicillins Allergy (Verified 08/25/18 09:39) Rash acetaminophen [From Vicodin] Adverse Reaction (Verified 08/25/18 09:39) Chest tightness hydrocodone bitartrate [From Vicodin] Adverse Reaction (Verified 08/25/18 09:39) Chest tightness Home Medications: Ambulatory Orders Medication Instructions Recorded Levothyroxine [Synthroid] 25 mcg PO DAILY@0600 05/23/16 Atorvastatin Calcium [Lipitor] 20 mg PO QHS 03/01/18 oxybutynin chloride ER 10 mg 10 mg PO QHS 03/01/18 tablet,extended release 24 hr Fluticasone/Salmeterol [Advair 1 puff INHALATION BID 06/04/18 500/50 Mcg Diskus] Aspirin [Aspirin, Baby] 81 mg PO DAILY@0800 07/20/18 Cholecalciferol (Vitamin D3) 1,000 unit PO DAILY 07/20/18 [Vitamin D3] Cyanocobalamin (Vitamin B-12) 1,000 mcg PO DAILY 07/20/18 [Vitamin B-12] Acetaminophen [Tylenol Tablet] 650 mg PO Q6H PRN PRN tab 08/06/18 Albuterol Aerosols [Ventolin 2.5 mg INHALATION Q2H PRN PRN 08/06/18 Aerosols] vial.neb. Amiodarone HCl [Cordarone] 200 mg PO BID tab 08/06/18 Amiodarone HCl [Cordarone] 200 mg PO DAILY tab 08/06/18 Glucerna Shake 120 ml PO 4X/DAY liquid 08/06/18 Insulin Glargine [Lantus SoloStar 10 units SUBCUT BID pen 08/06/18 Pen] Ipratropium/Albuterol Sulfate 3 ml INHALATION Q6HWA.RT ampul.neb 08/06/18 [Duoneb] Magnesium Hydroxide [Milk Of 30 ml PO DAILY PRN PRN udc 08/06/18 Magnesia] Metoprolol Tartrate [Lopressor 25 mg PO BID tab 08/06/18 (beta katty)] Nystatin 500,000 unit PO 4X/DAY udc 08/06/18 Pantoprazole Sodium [Protonix] 40 mg PO BID tab 08/06/18 - Family History Maternal Family History: Family History (Last Updated 05/26/18 @ 10:48 by Sofia Allen) Mother Diabetes Brother Atrial fibrillation Brother Diabetes Sister Diabetes Diabetes Paternal Family History: Family History (Last Updated 05/26/18 @ 10:48 by Sofia Allen) Mother Diabetes Brother Atrial fibrillation Brother Diabetes Sister Diabetes Diabetes, Heart Disease Smoking Status: Never smoker Review of Systems Constitutional: Denies: Anorexia, Chills, Fever Eyes: Denies: Pain, Redness HEENT: Denies: Difficulty Swallowing Cardiovascular: Denies: Chest Pain, Chest Tightness Respiratory: Denies: Cough, Hemoptysis Gastrointestinal: Denies: Abdominal Pain, Hematemesis, Vomiting Genitourinary: Denies: Dysuria Skin: Denies: Jaundice - Physical Exam Vital Signs Temp Pulse Resp BP 97.1 F L 64 18 137/87 H 08/25/18 09:14 08/25/18 09:14 08/25/18 09:14 08/25/18 09:14 General: Alert, Oriented x3, Cooperative, No apparent distress HEENT: Atraumatic Oral: Moist Mucosa Neck: Supple Lungs: Normal air movement Cardiovascular: Regular rate, Regular Rhythm, Normal S1, Normal S2 Abdomen: Soft, Non Tender Extremities: No cyanosis, Edema Skin: Ulcer/ Wound Wound Measurements and Assessment WC - Nurse 1 - General Ulcer Measurement Start: 08/25/18 09:05 Freq: Status: Active Protocol: Activity Type Activity Date Activity User E-Sign Co-Sign Detail Recorded Client Recorded Date Recorded By Document 08/25/18 09:14 [id number] 08/25/18 09:34 DL 08/25/18 09:14 Wound Center Nurse 1 [Ulcer Assessment] #3 Abd -Current Size (cm) - Length 3.7 -Current Size (cm) - Width 4 -Current Size (cm) - Depth 3 -Total Square Cm 14.8 -Photo Taken Yes -Classification - Thickness Full Thickness without Exposed Support Structure -Exudate Amt Medium (34-66%) -Exudate Type Serosanguineous -Wound Margin Distinct, Outline Attached -Granulation Amt Medium (34-66%) -Granulation Quality Red -Necrosis Amt Medium (34-66%) -Necrotic Tissue Type Adherent Slough -Structure Exposed N/A -Texture (Raisa-wound Skin Appearance) Scarring -Moisture (Raisa-wound Skin Appearance No Abnormality ) -Color (Raisa-wound Skin Appearance) No Abnormality -Temperature (Raisa-wound Skin No Abnormality Appearance) (Pt Warm) -Tenderness on Palpation (Raisa-wound No Skin Appearance) -Ulcer Cleansing Rinsed/ Irrigated with Saline -Foul Odor after Cleansing No -Anesthetic Used 4% Lidocaine Solution WC - Nurse 2 - General Ulcer CM Notes Start: 08/25/18 09:05 Freq: Status: Active Protocol: Activity Type Activity Date Activity User E-Sign Co-Sign Detail Recorded Client Recorded Date Recorded By Document 08/25/18 10:07 MW [id number] 08/25/18 10:17 MW 08/25/18 10:07 Wound Center Nurse 2 [Procedure/Treatment] -Time 10:08 -Correct Patient Yes -Correct Side, Site, Position Yes -Correct Procedure Yes -Procedure Performed Yes -Type of Procedure Debridement -Clinical Debridement Subcutaneous -Post Debridement Size (cm) - Length 4.5 -Post Debridement Size (cm) - Width 4.3 -Post Debridement Size (cm) - Depth 3.1 -Total Square Cm 19.35 -Wound/Ulcer Outcome Not Healed -Ulcer Cleansing Rinsed/ Irrigated with Saline -Foul Odor after Cleansing No -Bioengineered Tissue No -Bleeding Controlled with Pressure -Other tunnel @ 6- 2. 2cm, @ 12- 5. 0cm -Treatment Response Procedure Tolerated Well [See Physician Procedure note for Specifics] Pain Scale: 0-10 Numeric [Pain] -Is Patient Pain Free? Yes Neurological: Cranial nerves II-XII grossly intact Psych/Mental Status: Normal Affect Debridement Note Post-Debridement Measurements/Treatment WC - Nurse 2 - General Ulcer CM Notes Start: 08/25/18 09:05 Freq: Status: Active Protocol: Activity Type Activity Date Activity User E-Sign Co-Sign Detail Recorded Client Recorded Date Recorded By Document 08/25/18 10:07 MW [id number] 08/25/18 10:17 MW 08/25/18 10:07 Wound Center Nurse 2 #3 Abd -Time 10:08 -Correct Patient Yes -Correct Side, Site, Position Yes -Correct Procedure Yes -Procedure Performed Yes -Type of Procedure Debridement -Clinical Debridement Subcutaneous -Post Debridement Size (cm) - Length 4.5 -Post Debridement Size (cm) - Width 4.3 -Post Debridement Size (cm) - Depth 3.1 -Total Square Cm 19.35 -Wound/Ulcer Outcome Not Healed -Ulcer Cleansing Rinsed/ Irrigated with Saline -Foul Odor after Cleansing No -Bioengineered Tissue No -Bleeding Controlled with Pressure -Other tunnel @ 6- 2. 2cm, @ 12- 5. 0cm -Treatment Response Procedure Tolerated Well Pain Scale: 0-10 Numeric Is Patient Pain Free? 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 Type 2 diabetes mellitus (Chronic) Assessment: Nonhealing surgical wound dehiscence status post large bowel perforation. Type 2 diabetes mellitus. Plan: Debridement done as documented above. Procedure was well-tolerated. Has a tunnel at the 6 o'clock position and at the 12:00 it extends to 5 cm. Wound otherwise appears healthy. No obvious signs of infection. Due to significant depth and tunneling, she will most definitely benefit from a wound VAC. Orders sent to her halfway. In the meantime Aquacel extra with Adaptic over top. Change daily. Increased protein intake strongly recommended. Continue antibiotics per recommendation. All the questions were answered and they were asked to call with any further questions or concerns. Follow-up in 1 week. This note was generated with [employer] dictation software. It may contain incorrect words, spelling, and punctuation that were not noted in checking the note before signing.
--- NOTE | 2018-08-25 12:49 | HP.PCM_ITS ---
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 (2) Type 2 diabetes mellitus Status: Chronic Current Visit: Yes Qualifiers: Code(s): E11.9 - Type 2 diabetes mellitus without complications History of Present Illness Chief Complaint: Nonhealing surgical wound. History of Wound: Ms. Wynn is a very pleasant 82-year-old who is in a stable state of health until over a month ago when she was admitted to the hospital due to large bowel perforation. She subsequently had surgery and was discharged to a senior care facility however in the facility she had reopening of the surgical wound. Since reopening, she has had wet-to-dry dressings without any significant improvement. She was again seen by her general surgeon subsequently referred to the wound center for continued management of her nonhealing surgical wound. Currently on IV antibiotics. She denies any concerns at this time. 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 Takotsubo cardiomyopathy (Chronic) Nonrheumatic tricuspid (valve) insufficiency (Chronic) Atherosclerotic heart disease of [place] coronary artery without angina pectoris (Chronic) Mild Hypothyroidism (Chronic) COPD (chronic obstructive pulmonary disease) (Chronic) Hyperlipidemia (Chronic) Type 2 diabetes mellitus (Chronic) Surgical History: hysterectomy, total hip arthroplasty, - - Fractured femur, bilateral knee surgeries and bilateral hip surgeries Allergies/Adverse Reactions: Allergies codeine Allergy (Severe, Verified 08/25/18 09:39) HEART ATTACK levofloxacin [From Levaquin] Allergy (Severe, Verified 08/25/18 09:39) Anaphylaxis Sulfa (Sulfonamide Antibiotics) Allergy (Unknown, Verified 08/25/18 09:39) Unknown adhesive tape Allergy (Verified 08/25/18 09:39) Other citalopram Allergy (Verified 08/25/18 09:39) Unknown Latex, Natural Rubber Allergy (Verified 08/25/18 09:39) Rash Penicillins Allergy (Verified 08/25/18 09:39) Rash acetaminophen [From Vicodin] Adverse Reaction (Verified 08/25/18 09:39) Chest tightness hydrocodone bitartrate [From Vicodin] Adverse Reaction (Verified 08/25/18 09:39) Chest tightness Home Medications: Ambulatory Orders Medication Instructions Recorded Levothyroxine [Synthroid] 25 mcg PO DAILY@0600 05/23/16 Atorvastatin Calcium [Lipitor] 20 mg PO QHS 03/01/18 oxybutynin chloride ER 10 mg 10 mg PO QHS 03/01/18 tablet,extended release 24 hr Fluticasone/Salmeterol [Advair 1 puff INHALATION BID 06/04/18 500/50 Mcg Diskus] Aspirin [Aspirin, Baby] 81 mg PO DAILY@0800 07/20/18 Cholecalciferol (Vitamin D3) 1,000 unit PO DAILY 07/20/18 [Vitamin D3] Cyanocobalamin (Vitamin B-12) 1,000 mcg PO DAILY 07/20/18 [Vitamin B-12] Acetaminophen [Tylenol Tablet] 650 mg PO Q6H PRN PRN tab 08/06/18 Albuterol Aerosols [Ventolin 2.5 mg INHALATION Q2H PRN PRN 08/06/18 Aerosols] vial.neb. Amiodarone HCl [Cordarone] 200 mg PO BID tab 08/06/18 Amiodarone HCl [Cordarone] 200 mg PO DAILY tab 08/06/18 Glucerna Shake 120 ml PO 4X/DAY liquid 08/06/18 Insulin Glargine [Lantus SoloStar 10 units SUBCUT BID pen 08/06/18 Pen] Ipratropium/Albuterol Sulfate 3 ml INHALATION Q6HWA.RT ampul.neb 08/06/18 [Duoneb] Magnesium Hydroxide [Milk Of 30 ml PO DAILY PRN PRN udc 08/06/18 Magnesia] Metoprolol Tartrate [Lopressor 25 mg PO BID tab 08/06/18 (beta katty)] Nystatin 500,000 unit PO 4X/DAY udc 08/06/18 Pantoprazole Sodium [Protonix] 40 mg PO BID tab 08/06/18 - Family History Maternal Family History: Family History (Last Updated 05/26/18 @ 10:48 by Sofia Allen) Mother Diabetes Brother Atrial fibrillation Brother Diabetes Sister Diabetes Diabetes Paternal Family History: Family History (Last Updated 05/26/18 @ 10:48 by Sofia Allen) Mother Diabetes Brother Atrial fibrillation Brother Diabetes Sister Diabetes Diabetes, Heart Disease Smoking Status: Never smoker Review of Systems Constitutional: Denies: Anorexia, Chills, Fever Eyes: Denies: Pain, Redness HEENT: Denies: Difficulty Swallowing Cardiovascular: Denies: Chest Pain, Chest Tightness Respiratory: Denies: Cough, Hemoptysis Gastrointestinal: Denies: Abdominal Pain, Hematemesis, Vomiting Genitourinary: Denies: Dysuria Skin: Denies: Jaundice - Physical Exam Vital Signs Temp Pulse Resp BP 97.1 F L 64 18 137/87 H 08/25/18 09:14 08/25/18 09:14 08/25/18 09:14 08/25/18 09:14 General: Alert, Oriented x3, Cooperative, No apparent distress HEENT: Atraumatic Oral: Moist Mucosa Neck: Supple Lungs: Normal air movement Cardiovascular: Regular rate, Regular Rhythm, Normal S1, Normal S2 Abdomen: Soft, Non Tender Extremities: No cyanosis, Edema Skin: Ulcer/ Wound Wound Measurements and Assessment WC - Nurse 1 - General Ulcer Measurement Start: 08/25/18 09:05 Freq: Status: Active Protocol: Activity Type Activity Date Activity User E-Sign Co-Sign Detail Recorded Client Recorded Date Recorded By Document 08/25/18 09:14 [id number] 08/25/18 09:34 DL 08/25/18 09:14 Wound Center Nurse 1 [Ulcer Assessment] #3 Abd -Current Size (cm) - Length 3.7 -Current Size (cm) - Width 4 -Current Size (cm) - Depth 3 -Total Square Cm 14.8 -Photo Taken Yes -Classification - Thickness Full Thickness without Exposed Support Structure -Exudate Amt Medium (34-66%) -Exudate Type Serosanguineous -Wound Margin Distinct, Outline Attached -Granulation Amt Medium (34-66%) -Granulation Quality Red -Necrosis Amt Medium (34-66%) -Necrotic Tissue Type Adherent Slough -Structure Exposed N/A -Texture (Raisa-wound Skin Appearance) Scarring -Moisture (Raisa-wound Skin Appearance No Abnormality ) -Color (Raisa-wound Skin Appearance) No Abnormality -Temperature (Raisa-wound Skin No Abnormality Appearance) (Pt Warm) -Tenderness on Palpation (Raisa-wound No Skin Appearance) -Ulcer Cleansing Rinsed/ Irrigated with Saline -Foul Odor after Cleansing No -Anesthetic Used 4% Lidocaine Solution WC - Nurse 2 - General Ulcer CM Notes Start: 08/25/18 09:05 Freq: Status: Active Protocol: Activity Type Activity Date Activity User E-Sign Co-Sign Detail Recorded Client Recorded Date Recorded By Document 08/25/18 10:07 MW [id number] 08/25/18 10:17 MW 08/25/18 10:07 Wound Center Nurse 2 [Procedure/Treatment] -Time 10:08 -Correct Patient Yes -Correct Side, Site, Position Yes -Correct Procedure Yes -Procedure Performed Yes -Type of Procedure Debridement -Clinical Debridement Subcutaneous -Post Debridement Size (cm) - Length 4.5 -Post Debridement Size (cm) - Width 4.3 -Post Debridement Size (cm) - Depth 3.1 -Total Square Cm 19.35 -Wound/Ulcer Outcome Not Healed -Ulcer Cleansing Rinsed/ Irrigated with Saline -Foul Odor after Cleansing No -Bioengineered Tissue No -Bleeding Controlled with Pressure -Other tunnel @ 6- 2. 2cm, @ 12- 5. 0cm -Treatment Response Procedure Tolerated Well [See Physician Procedure note for Specifics] Pain Scale: 0-10 Numeric [Pain] -Is Patient Pain Free? Yes Neurological: Cranial nerves II-XII grossly intact Psych/Mental Status: Normal Affect Debridement Note Post-Debridement Measurements/Treatment WC - Nurse 2 - General Ulcer CM Notes Start: 08/25/18 09:05 Freq: Status: Active Protocol: Activity Type Activity Date Activity User E-Sign Co-Sign Detail Recorded Client Recorded Date Recorded By Document 08/25/18 10:07 MW [id number] 08/25/18 10:17 MW 08/25/18 10:07 Wound Center Nurse 2 #3 Abd -Time 10:08 -Correct Patient Yes -Correct Side, Site, Position Yes -Correct Procedure Yes -Procedure Performed Yes -Type of Procedure Debridement -Clinical Debridement Subcutaneous -Post Debridement Size (cm) - Length 4.5 -Post Debridement Size (cm) - Width 4.3 -Post Debridement Size (cm) - Depth 3.1 -Total Square Cm 19.35 -Wound/Ulcer Outcome Not Healed -Ulcer Cleansing Rinsed/ Irrigated with Saline -Foul Odor after Cleansing No -Bioengineered Tissue No -Bleeding Controlled with Pressure -Other tunnel @ 6- 2. 2cm, @ 12- 5. 0cm -Treatment Response Procedure Tolerated Well Pain Scale: 0-10 Numeric Is Patient Pain Free? 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 Type 2 diabetes mellitus (Chronic) Assessment: Nonhealing surgical wound dehiscence status post large bowel perforation. Type 2 diabetes mellitus. Plan: Debridement done as documented above. Procedure was well-tolerated. Has a tunnel at the 6 o'clock position and at the 12:00 it extends to 5 cm. Wound otherwise appears healthy. No obvious signs of infection. Due to significant depth and tunneling, she will most definitely benefit from a wound VAC. Orders sent to her senior care. In the meantime Aquacel extra with Adaptic over top. Change daily. Increased protein intake strongly recommended. Continue antibiotics per recommendation. All the questions were answered and they were asked to call with any further questions or concerns. Follow-up in 1 week. This note was generated with [employer] dictation software. It may contain incorrect words, spelling, and punctuation that were not noted in checking the note before signing.
== END 2018-09-01 23:59 ==
LOC: WC 08:55
PROVIDERS: Family Provider Family Medicine; PCP Family Medicine; Visit Provider Internal Medicine
DX: T81.31XA Disruption of external operation (surgical) wound, not elsewhere classified, initial encounter (principal); Y83.9 Surgical procedure, unspecified as the cause of abnormal reaction of the patient, or of later complication, without mention of misadventure at the time of the procedure; E11.9 Type 2 diabetes mellitus without complications; K21.9 Gastro-esophageal reflux disease without esophagitis; E78.5 Hyperlipidemia, unspecified; J44.9 Chronic obstructive pulmonary disease, unspecified; I25.10 Atherosclerotic heart disease of native coronary artery without angina pectoris; Z79.899 Other long term (current) drug therapy; E03.9 Hypothyroidism, unspecified
CPT/HCPCS: 11042; 99213; G0463

== ENCOUNTER 2018-09-08 08:25 | Outpatient (RCR) | payer MEDICARE, OTHER, SELFPAY ==
[2018-09-02 02:08] VITALS: BP 137/87; PULSE 64; RESP 18; TEMP 36.2
[2018-09-08 10:04] VITALS: BP 147/62; PULSE 65; RESP 16; TEMP 35.7
--- NOTE | 2018-09-08 10:33 | PCM.WC.PN ---
(1) Non-healing surgical wound Status: Chronic Current Visit: Yes Code(s): T81.89XA - Other complications of procedures, not elsewhere classified, initial encounter (2) Wound dehiscence, surgical Status: Chronic Current Visit: Yes Code(s): T81.31XA - Disruption of external operation (surgical) wound, not elsewhere classified, initial encounter (3) Large bowel perforation Status: Acute Current Visit: No Code(s): K63.1 - Perforation of intestine (nontraumatic) Type of Wound Chief Complaint: Nonhealing surgical wound. History of Wound: Ms. Wynn is a very pleasant 82-year-old who is in a stable state of health until over a month ago when she was admitted to the hospital due to large bowel perforation. She subsequently had surgery and was discharged to a [facility] facility however in the facility she had reopening of the surgical wound. Since reopening, she has had wet-to-dry dressings without any significant improvement. She was again seen by her general surgeon subsequently referred to the wound center for continued management of her nonhealing surgical wound. Currently on IV antibiotics. She denies any concerns at this time. Progress of Wound: Improving. - Physical Exam Vital Signs Temp Pulse Resp BP 96.2 F L 65 16 147/62 H 09/08/18 10:04 09/08/18 10:04 09/08/18 10:04 09/08/18 10:04 General: Alert, Oriented x3, Cooperative, No apparent distress HEENT: Atraumatic Oral: Moist Mucosa Neck: Supple Lungs: Normal air movement Abdomen: Soft Extremities: No cyanosis Skin: Ulcer/ Wound Wound Measurements and Assessment - Nurse 1 - General Ulcer Measurement Start: 09/08/18 10:03 Freq: Status: Active Protocol: Activity Type Activity Date Activity User E-Sign Co-Sign Detail Recorded Client Recorded Date Recorded By Document 09/08/18 10:04 [facility] [id number] 09/08/18 10:18 [facility] 09/08/18 10:04 Wound Center Nurse 1 [Ulcer Assessment] #3 Abd -Combined with other wound No -Current Size (cm) - Length 2.4 -Current Size (cm) - Width 2.5 -Current Size (cm) - Depth 2.2 -Total Square Cm 6.00 -Photo Taken No -Epithelialization None Present -Tunneling Yes -Tunneling Position (O'clock) 12 -Tunneling Distance (cm) 3.9 -Exudate Amt Small (1-33%) -Exudate Type Serosanguineous -Wound Margin Distinct, Outline Attached -Granulation Amt Medium (34-66%) -Granulation Quality Red -Slough/Fibrin Yes -Necrosis Amt Medium (34-66%) -Necrotic Tissue Type Adherent Slough -Texture (Raisa-wound Skin Appearance) Scarring Rash -Moisture (Raisa-wound Skin Appearance Dry/Scaly ) -Color (Raisa-wound Skin Appearance) Assessed Erythema -Temperature (Raisa-wound Skin No Abnormality Appearance) (Pt Warm) -Tenderness on Palpation (Raisa-wound Yes Skin Appearance) -Ulcer Cleansing Rinsed/ Irrigated with Saline -Foul Odor after Cleansing No -Anesthetic Used 4% Lidocaine Solution WC - Nurse 2 - General Ulcer CM Notes Start: 09/08/18 10:03 Freq: Status: Active Protocol: Activity Type Activity Date Activity User E-Sign Co-Sign Detail Recorded Client Recorded Date Recorded By Document 09/08/18 10:25 MW [id number] 09/08/18 10:29 MW 09/08/18 10:25 Wound Center Nurse 2 [Procedure/Treatment] -Time 10:26 -Correct Patient Yes -Correct Side, Site, Position Yes -Correct Procedure Yes -Procedure Performed Yes -Type of Procedure Debridement -Clinical Debridement Subcutaneous -Post Debridement Size (cm) - Length 2.6 -Post Debridement Size (cm) - Width 2.6 -Post Debridement Size (cm) - Depth 2.4 -Total Square Cm 6.76 -Wound/Ulcer Outcome Not Healed -Ulcer Cleansing Rinsed/ Irrigated with Saline -Foul Odor after Cleansing No -Bioengineered Tissue No -Bleeding Controlled with Pressure -Other TUNNEL @ 6 - 1. 2CM, @12 - 3. 8CM -Treatment Response Procedure Tolerated Well [See Physician Procedure note for Specifics] Pain Scale: 0-10 Numeric [Pain] -Is Patient Pain Free? Yes Musculoskeletal: No Muscle Wasting Neurological: Cranial nerves II-XII grossly intact Psych/Mental Status: Normal Affect Debridement Note Post-Debridement Measurements/Treatment WC - Nurse 2 - General Ulcer CM Notes Start: 09/08/18 10:03 Freq: Status: Active Protocol: Activity Type Activity Date Activity User E-Sign Co-Sign Detail Recorded Client Recorded Date Recorded By Document 09/08/18 10:25 MW [id number] 09/08/18 10:29 MW 09/08/18 10:25 Wound Center Nurse 2 #3 Abd -Time 10:26 -Correct Patient Yes -Correct Side, Site, Position Yes -Correct Procedure Yes -Procedure Performed Yes -Type of Procedure Debridement -Clinical Debridement Subcutaneous -Post Debridement Size (cm) - Length 2.6 -Post Debridement Size (cm) - Width 2.6 -Post Debridement Size (cm) - Depth 2.4 -Total Square Cm 6.76 -Wound/Ulcer Outcome Not Healed -Ulcer Cleansing Rinsed/ Irrigated with Saline -Foul Odor after Cleansing No -Bioengineered Tissue No -Bleeding Controlled with Pressure -Other TUNNEL @ 6 - 1. 2CM, @12 - 3. 8CM -Treatment Response Procedure Tolerated Well Pain Scale: 0-10 Numeric Is Patient Pain Free? Yes Wound debrided: Abdominal wound Wound Grade/Stage: Stage III Type of Debridement: Excisional debridement Anesthesia Used: 4% Lidocaine Solution Depth: Down to and including healthy tissue, in the subcutaneous layer Percentage of wound debrided: 100 Instrument Used: 7mm curette Tissue Removed: Slough and devitalized tissue Severity: Fat Layer Exposed Amount of bleeding with debridement: Mild Bleeding Controlled with: Pressure Patient tolerated procedure well Assessment/Plan Active Problems (Last Reviewed 03/01/18 @ 13:10 by Victoria Fu) Non-healing surgical wound (Chronic) Wound dehiscence, surgical (Chronic) Assessment: Nonhealing surgical wound dehiscence status post large bowel perforation. Type 2 diabetes mellitus. Plan: Debridement done as documented above. Procedure was well-tolerated. . Wound has shown some improvement with the wound VAC. She has tolerated it at 125 mmHg. Will increase to 150 mmHg. Continued increased protein intake strongly recommended. All the questions were answered and they were asked to call with any further questions or concerns. Follow-up in 2 weeks. This note was generated with [employer] software. It may contain incorrect words, spelling, and punctuation that were not noted in checking the note before signing.
--- NOTE | 2018-09-08 10:43 | PN.PCM_ITS ---
(1) Non-healing surgical wound Status: Chronic Current Visit: Yes Code(s): T81.89XA - Other complications of procedures, not elsewhere classified, initial encounter (2) Wound dehiscence, surgical Status: Chronic Current Visit: Yes Code(s): T81.31XA - Disruption of external operation (surgical) wound, not elsewhere classified, initial encounter (3) Large bowel perforation Status: Acute Current Visit: No Code(s): K63.1 - Perforation of intestine (nontraumatic) Type of Wound Chief Complaint: Nonhealing surgical wound. History of Wound: Ms. Wynn is a very pleasant 82-year-old who is in a stable state of health until over a month ago when she was admitted to the hospital due to large bowel perforation. She subsequently had surgery and was discharged to a [facility] facility however in the facility she had reopening of the surgical wound. Since reopening, she has had wet-to-dry dressings without any significant improvement. She was again seen by her general surgeon subsequently referred to the wound center for continued management of her nonhealing surgical wound. Currently on IV antibiotics. She denies any concerns at this time. Progress of Wound: Improving. - Physical Exam Vital Signs Temp Pulse Resp BP 96.2 F L 65 16 147/62 H 09/08/18 10:04 09/08/18 10:04 09/08/18 10:04 09/08/18 10:04 General: Alert, Oriented x3, Cooperative, No apparent distress HEENT: Atraumatic Oral: Moist Mucosa Neck: Supple Lungs: Normal air movement Abdomen: Soft Extremities: No cyanosis Skin: Ulcer/ Wound Wound Measurements and Assessment - Nurse 1 - General Ulcer Measurement Start: 09/08/18 10:03 Freq: Status: Active Protocol: Activity Type Activity Date Activity User E-Sign Co-Sign Detail Recorded Client Recorded Date Recorded By Document 09/08/18 10:04 [facility] [id number] 09/08/18 10:18 [facility] 09/08/18 10:04 Wound Center Nurse 1 [Ulcer Assessment] #3 Abd -Combined with other wound No -Current Size (cm) - Length 2.4 -Current Size (cm) - Width 2.5 -Current Size (cm) - Depth 2.2 -Total Square Cm 6.00 -Photo Taken No -Epithelialization None Present -Tunneling Yes -Tunneling Position (O'clock) 12 -Tunneling Distance (cm) 3.9 -Exudate Amt Small (1-33%) -Exudate Type Serosanguineous -Wound Margin Distinct, Outline Attached -Granulation Amt Medium (34-66%) -Granulation Quality Red -Slough/Fibrin Yes -Necrosis Amt Medium (34-66%) -Necrotic Tissue Type Adherent Slough -Texture (Raisa-wound Skin Appearance) Scarring Rash -Moisture (Raisa-wound Skin Appearance Dry/Scaly ) -Color (Raisa-wound Skin Appearance) Assessed Erythema -Temperature (Raisa-wound Skin No Abnormality Appearance) (Pt Warm) -Tenderness on Palpation (Raisa-wound Yes Skin Appearance) -Ulcer Cleansing Rinsed/ Irrigated with Saline -Foul Odor after Cleansing No -Anesthetic Used 4% Lidocaine Solution WC - Nurse 2 - General Ulcer CM Notes Start: 09/08/18 10:03 Freq: Status: Active Protocol: Activity Type Activity Date Activity User E-Sign Co-Sign Detail Recorded Client Recorded Date Recorded By Document 09/08/18 10:25 MW [id number] 09/08/18 10:29 MW 09/08/18 10:25 Wound Center Nurse 2 [Procedure/Treatment] -Time 10:26 -Correct Patient Yes -Correct Side, Site, Position Yes -Correct Procedure Yes -Procedure Performed Yes -Type of Procedure Debridement -Clinical Debridement Subcutaneous -Post Debridement Size (cm) - Length 2.6 -Post Debridement Size (cm) - Width 2.6 -Post Debridement Size (cm) - Depth 2.4 -Total Square Cm 6.76 -Wound/Ulcer Outcome Not Healed -Ulcer Cleansing Rinsed/ Irrigated with Saline -Foul Odor after Cleansing No -Bioengineered Tissue No -Bleeding Controlled with Pressure -Other TUNNEL @ 6 - 1. 2CM, @12 - 3. 8CM -Treatment Response Procedure Tolerated Well [See Physician Procedure note for Specifics] Pain Scale: 0-10 Numeric [Pain] -Is Patient Pain Free? Yes Musculoskeletal: No Muscle Wasting Neurological: Cranial nerves II-XII grossly intact Psych/Mental Status: Normal Affect Debridement Note Post-Debridement Measurements/Treatment WC - Nurse 2 - General Ulcer CM Notes Start: 09/08/18 10:03 Freq: Status: Active Protocol: Activity Type Activity Date Activity User E-Sign Co-Sign Detail Recorded Client Recorded Date Recorded By Document 09/08/18 10:25 MW [id number] 09/08/18 10:29 MW 09/08/18 10:25 Wound Center Nurse 2 #3 Abd -Time 10:26 -Correct Patient Yes -Correct Side, Site, Position Yes -Correct Procedure Yes -Procedure Performed Yes -Type of Procedure Debridement -Clinical Debridement Subcutaneous -Post Debridement Size (cm) - Length 2.6 -Post Debridement Size (cm) - Width 2.6 -Post Debridement Size (cm) - Depth 2.4 -Total Square Cm 6.76 -Wound/Ulcer Outcome Not Healed -Ulcer Cleansing Rinsed/ Irrigated with Saline -Foul Odor after Cleansing No -Bioengineered Tissue No -Bleeding Controlled with Pressure -Other TUNNEL @ 6 - 1. 2CM, @12 - 3. 8CM -Treatment Response Procedure Tolerated Well Pain Scale: 0-10 Numeric Is Patient Pain Free? Yes Wound debrided: Abdominal wound Wound Grade/Stage: Stage III Type of Debridement: Excisional debridement Anesthesia Used: 4% Lidocaine Solution Depth: Down to and including healthy tissue, in the subcutaneous layer Percentage of wound debrided: 100 Instrument Used: 7mm curette Tissue Removed: Slough and devitalized tissue Severity: Fat Layer Exposed Amount of bleeding with debridement: Mild Bleeding Controlled with: Pressure Patient tolerated procedure well Assessment/Plan Active Problems (Last Reviewed 03/01/18 @ 13:10 by Victoria Fu) Non-healing surgical wound (Chronic) Wound dehiscence, surgical (Chronic) Assessment: Nonhealing surgical wound dehiscence status post large bowel perforation. Type 2 diabetes mellitus. Plan: Debridement done as documented above. Procedure was well-tolerated. . Wound has shown some improvement with the wound VAC. She has tolerated it at 125 mmHg. Will increase to 150 mmHg. Continued increased protein intake strongly recommended. All the questions were answered and they were asked to call with any further questions or concerns. Follow-up in 2 weeks. This note was generated with [employer] software. It may contain incorrect words, spelling, and punctuation that were not noted in checking the note before signing.
== END 2018-10-01 23:59 ==
LOC: WC 08:25
PROVIDERS: Family Provider Family Medicine; PCP Family Medicine; Visit Provider Internal Medicine
DX: T81.31XA Disruption of external operation (surgical) wound, not elsewhere classified, initial encounter (principal); Y83.9 Surgical procedure, unspecified as the cause of abnormal reaction of the patient, or of later complication, without mention of misadventure at the time of the procedure; E11.9 Type 2 diabetes mellitus without complications
CPT/HCPCS: 11042; 97605

== ENCOUNTER 2018-09-15 07:43 | Inpatient (IN) | payer MEDICARE, OTHER, SELFPAY ==
[2018-09-15] VITALS (37 sets, daily range): BP systolic 101–162; BP diastolic 51–117; PULSE 64–84; RESP 12–259; TEMP 36.9–37.7; O2SAT 98–100; BMI 31.4; BMI 29.6
--- NOTE | 2018-09-15 08:01 | CT_ITS ---
STUDY: CT BRAIN WITHOUT CONTRAST REASON FOR EXAM: Female, 82 years old. Seizure. RADIATION DOSAGE (If Supplied By Facility): CTDIvol = ( 44.99 ) mGy, DLP = ( 745.49 ) mGycm TECHNIQUE: Transaxial CT imaging of the brain was performed without administration of intravenous contrast material. Multiplanar reformations are submitted for interpretation. Individualized dose optimization techniques were used for this CT. COMPARISON: CT of the head dated March 26, 2017. FINDINGS: Normal soft tissue structures. Normal calvarium. There is opacification of several posterior mastoid air cells. This is new since the previous CT. There is mild cerebral atrophy with widening of the extra-axial spaces and ventricular dilatation. There is encephalomalacia within the left parietal lobe primarily due to old infarct. This is unchanged since the previous study. There are areas of decreased attenuation within the white matter tracts of the supratentorial brain, consistent with microvascular disease changes. Normal basal ganglia and thalami. Normal brainstem. There are multiple areas of encephalomalacia in the cerebellum probably related to old infarcts. This was visible on previous CT. There is no intracranial hemorrhage. There is mild atherosclerotic calcification of intracranial arteries. There is complete opacification of the right maxillary sinus, similar to previous study. There is thickening of the rob of bilateral maxillary sinuses may be the result of chronic inflammation. CT/Brain/Head without Contrast IMPRESSION: 1. Chronic involutional changes of the brain. 2. No CT evidence of acute intracranial hemorrhage. 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 5. Bilateral mild mastoid disease. Electronically Signed: Brandy Vizcarra MD at 9:20 EST , Service support ,
--- NOTE | 2018-09-15 08:02 | EKG12_ITS ---
Test Reason : SEIZURE Blood Pressure : / mmHG Vent. Rate : 079 BPM Atrial Rate : 079 BPM P-R Int : 162 ms QRS Dur : 088 ms QT Int : 390 ms P-R-T Axes : 034 -48 041 degrees QTc Int : 447 ms Normal sinus rhythm Left axis deviation Abnormal ECG Confirmed by TRICIA MERCER, PREET ([id number]), avid editor SADIQ BUENO ([id number]) on 09/17/2018 3:46:33 PM Referred By: NATE Confirmed By:PREET CLARKE MD
[2018-09-15] MEDS: Propofol 10MG/Ml 1,000 MG/100 ML Bottle 2.487 MG CONT INF ×2 (08:12→21:45)
[2018-09-15] MEDS: 0.9% Normal Saline 1,000 ML 125 ML IV (08:17)
[2018-09-15] MEDS: levETIRAcetam IV 1,000 MG/100 ML BAG 400 MG IV (08:17)
--- NOTE | 2018-09-15 08:20 | RAD_ITS ---
STUDY: X-RAY CHEST REASON FOR EXAM: Female, 82 years old. Unresponsive patient. Patient had a seizure around 6:30 AM. TECHNIQUE: Two AP portable views of the chest. COMPARISON: July 27, 2018. FINDINGS: Tip of the endotracheal tube is at the aortic arch. Enteric tube is visible with the distal and below the inferior edge of the image. Cardiac monitoring leads are present. The lungs are hyperexpanded. There is suggestion for right basilar subsegmental atelectasis. Left lung appears to be clear. There is no demonstrated pleural abnormality. There is mild cardiac enlargement. Normal mediastinum and aruna. Normal visualized pulmonary arteries. There is atherosclerotic calcification of the aortic arch with tortuosity. There is demineralization of the osseous structures. Normal visualized ribs, clavicles, and shoulders. There is no demonstrated abnormality of the visualized soft tissue structures of the upper abdomen. RAD/Chest 1 View (Portable) IMPRESSION: Appropriate positioning of endotracheal and enteric tubes. Electronically Signed: Brandy Vizcarra MD at 9:09 EST , Service support ,
[2018-09-15 08:23] LABS: Bacteria 0 SEEN /hpf (None Seen); Mucous, Urine 0 SEEN /hpf (<or=2+); Red Blood Cells-Urine 0 SEEN /hpf (0-5); Squamous Epithelial Cells - UA 0 SEEN /hpf (5-10)
[2018-09-15 08:26] LABS: Absolute Lymphocyte Count 2.05 X10^3/ul (0.83-4.51); Absolute Neutrophil Count 9.9 X10^3/uL (2.0-7.7); Basophil# 0.06 X10^3/uL; Basophil% 0.4 % (0-1); Eosinophil# 0.78 X10^3/uL; Eosinophils% 5.7 % (0-5); Hematocrit 30.1 % (37-47); Hemoglobin 9.7 g/dl (12.0-15.0); Lymphocyte # 2.05 X10^3/ul (4.0); Mean Corp Hgb Conc 32.2 g/gl (32-36); Mean Corpuscular Volume 99.3 fL (81-99); Mean Platelet Vol. 9.3 fl (6.2-12.0); Monocyte# 0.85 X10^3/uL; Monocyte% 6.2 % (0-10); Neutrophil # 9.87 X10^3/uL (2.7-7.7); Neutrophil % 72.1 % (47-70); POSITIVE COUNT NO; POSITIVE DIFFERENTIAL NO; POSITIVE MORPHOLOGY NO; Platelet Count 337 K/mm3 (150-450); RBC Distribution Width CV 17.7 % (11.6-14.6); RBC Distribution Width SD 62.2 fl (35.1-43.9); Red Blood Count 3.03 M/mm3 (4.2-5.4); White Blood Count 13.7 K/mm3 (4.4-11.0)
--- NOTE | 2018-09-15 08:27 | ED.VISSUMM ---
- ER Visit Summary Date of Service: 09/15/18 Chief Complaint: Unresponsive History of Present Illness: The patient is a 82 F who at 630 this morning was noted at the custodial by her primary care physician to be in her steady state. Shortly thereafter the patient was noted to have seizure activity. Reportedly was intermittent but became constant. EMS was called and they note seizure activity of the arms the face. He states that they gave Versed. After Versed she required bag respirations. Total time of seizure activity was estimated to be 30-40 minutes. EMS notes that that she has half normal saline running through a left arm PICC line. In July the patient presented to the emergency department with evidence of perforated descending colon. 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 Apparently she had wound healing issues but has been doing fine. She is been at the custodial and in the past week was noted to have acute kidney injury. Creatinine up to 3.6. BUN in the 60s. Ultrasound of the kidneys demonstrated no hydronephrosis. Patient has no reported seizure history. 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 Physical Examination: 143/94 heart rate is 79. Respirations are agonal at 25. Patient is in the 70s on room air she is 99% with bagged respirations. Temperature 99.8 Gen: Well-nourished well-developed Head: Normocephalic atraumatic Eyes: No corneal reflex. Pupils are 2 mm bilaterally. ENT: TMs clear no rhinorrhea moist mucous membranes Neck: Supple no lymphadenopathy no JVD nontender CVS: Regular rate rhythm no murmurs normal S1-S2 Respiratory: Agonal-like respirations that are shallow and ineffective at oxygenation/ventilation. Bagged respirations in progress. Chest nontender Abdomen: Soft nontender nondistended normal bowel sounds no masses Back: Nontender Extremity: Nontender diffusely edematous symmetric Skin: Normal color no rash Neuro: Patient is unresponsive. No corneal reflex. No response to sternal rub. No response to voice. There is no gag reflex. There is no movement of the extremities. Test Results: EKG demonstrated a normal sinus rhythm at a rate of 79 with left axis deviation. This appears unchanged from July 2018. White white blood cell count 13.7. Hemoglobin 9.7. Sodium 142 potassium 4.8. Glucose 202. BUN of 37 the creatinine 2.48. Lactic acid 6.3. Urinalysis greater than 100 white blood cells but no obvious bacteria. (Patient grew out E. coli in July and the sensitivities were reviewed) pH is 7.33. Bicarb is 14. CO2 26.7 PaO2 of 93 (on the vent) Emergency Department Course and Treatment: Patient is a DNR Comfort Care arrest. Family is present. Patient underwent intubation with a 7.5 endotracheal tube on the first attempt without difficulty after using 20 of etomidate for sedation. 16 Ukrainian oral gastric tube was placed. She was placed on low-dose propofol drip. Temperature sensitive Benitez was placed shows temperature 99.8. Chest x-ray shows adequate positioning of the endotracheal tube and orogastric tube. Blood and urine cultures were sent. Patient received Rocephin based on WHIT report from prior urinalysis culture plan will be admission into the hospital/icu. Impression: 1. Status epilepticus 2. Intubation 3. NG tube placement 4. Respiratory failure 5. Acute cystitis 6. Sepsis 7. Critical care time 35 minutes This note was generated with [employer] dictation software. It may contain incorrect words, spelling, and punctuation that were not noted in review of the chart prior to signing ED Disposition - Plan for ED Patient: Chief Complaint: Unresponsive Referrals: Clement Vizcarra MD [Primary Care Provider] -
[2018-09-15 08:31] LABS: Color, Urine Yellow (Yellow); Glucose, Dipstick Normal (Normal); Ketone-Dipstick Negative (Negative); Leukocyte Esterase-Dipstick 500 /ul (Negative); Nitrite-Dipstick Negative (Negative); Occult Blood-Urine 50 /ul (Negative); Protein-Dipstick 30 mg/dl (Negative); Specific Gravity, Urine 1.015 (1.002-1.030); Urine Bilirubin Dipstick Negative (Negative); Urine Clarity Sl. Cloudy (Clear); Urine Urobilinogen Normal (Normal)
[2018-09-15 08:33] LABS: International Normalized Ratio 1.4; Prothrombin Time (Protime)PT. 16.8 SECONDS (11.7-14.9)
[2018-09-15 08:34] LABS: Partial Thromboplast Time 28.1 Seconds (24.1-36.2)
--- NOTE | 2018-09-15 08:34 | ED.DCSUM_ITS ---
- ER Visit Summary Date of Service: 09/15/18 Chief Complaint: Unresponsive History of Present Illness: The patient is a 82 F who at 630 this morning was noted at the senior living by her primary care physician to be in her steady state. Shortly thereafter the patient was noted to have seizure activity. Rep ortedly was intermittent but became constant. EMS was called and they note seizure activity of the arms the face. He states that they gave Versed. After Versed she required bag respirations. Total time of seizure activity was estimated to be 30-40 minutes. EMS notes that that she has half normal saline running through a left arm PICC line. In July the patient presented to the emergency department with evidence of perforated descending colon. 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 Apparently she had wound healing issues but has been doing fine. She is been at the senior living and in the past week was noted to have acute kidney injury. Creatinine up to 3.6. BUN in the 60s. Ultrasound of the kidneys demonstrated no hydronephrosis. Patient has no reported seizure history. 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 Physical Examination: 143/94 heart rate is 79. Respirations are agonal at 25. Patient is in the 70s on room air she is 99% with bagged respirations. Temperature 99.8 Gen: Well-nourished well-developed Head: Normocephalic atraumatic Eyes: No corneal reflex. Pupils are 2 mm bilaterally. ENT: TMs clear no rhinorrhea moist mucous membranes Neck: Supple no lymphadenopathy no JVD nontender CVS: Regular rate rhythm no murmurs normal S1-S2 Respiratory: Agonal-like respirations that are shallow and ineffective at oxygenation/ventilation. Bagged respirations in progress. Chest nontender Abdomen: Soft nontender nondistended normal bowel sounds no masses Back: Nontender Extremity: Nontender diffusely edematous symmetric Skin: Normal color no rash Neuro: Patient is unresponsive. No corneal reflex. No response to sternal rub. No response to voice. There is no gag reflex. There is no movement of the extremities. Test Results: EKG demonstrated a normal sinus rhythm at a rate of 79 with left axis deviation. This appears unchanged from July 2018. White white blood cell count 13.7. Hemoglobin 9.7. Sodium 142 potassium 4.8. Glucose 202. BUN of 37 the creatinine 2.48. Lactic acid 6.3. Urinalysis greater than 100 white blood cells but no obvious bacteria. (Patient grew out E. coli in July and the sensitivities were reviewed) pH is 7.33. Bicarb is 14. CO2 26.7 PaO2 of 93 (on the vent) Emergency Department Course and Treatment: Patient is a DNR Comfort Care arrest. Family is present. Patient underwent intubation with a 7.5 endotracheal tube on the first attempt without difficulty after using 20 of etomidate for sedation. 16 Persian oral gastric tube was placed. She was placed on low-dose propofol drip. Temperature sensitive Benitez was placed shows temperature 99.8. Chest x-ray shows adequate positioning of the endotracheal tube and orogastric tube. Blood and urine cultures were sent. Patient received Rocephin based on WHIT report from prior urinalysis culture plan will be admission into the hospital/icu. Impression: 1. Status epilepticus 2. Intubation 3. NG tube placement 4. Respiratory failure 5. Acute cystitis 6. Sepsis 7. Critical care time 35 minutes This note was generated with [employer] dictation software. It may contain incorrect words, spelling, and punctuation that were not noted in review of the chart prior to signing ED Disposition - Plan for ED Patient: Chief Complaint: Unresponsive Referrals: Clement Vizcarra MD [Primary Care Provider] -
[2018-09-15 08:36] LABS: Allen Test POS; Base Excess -12 mmol/L (-2 to +2); Bicarbonate 14.1 mmol/L (22-26); Blood Gas Specimen Type ART; FI02 40; Mode A-C; O2 Delivery Device Vent; PEEP 5; PO2 93 mmHG (75-100); RR 12; SITE L Radial; SO2 97 % (95-99); Time Given 831; Total Carbon Dioxide 15 mmol/L; Vt 450; pCO2 26.7 mmHg (35-45); pH 7.33 (7.35-7.45)
[2018-09-15 08:38] LABS: White Blood Cells >100 SEEN /hpf (0-5)
[2018-09-15 08:50] LABS: Amphetamine Urine VISTA NEGATIVE (<1000 ng/mL); Barbiturate Urine VISTA NEGATIVE (< 200 ng/mL); Benzodiazepine Urine VISTA NEGATIVE (< 200 ng/mL); Cocaine Urine VISTA NEGATIVE (< 300 ng/mL); Ecstacy Urine VISTA NEGATIVE (< 500 ng/mL); Methadone Urine VISTA NEGATIVE (< 300 ng/mL); PCP Urine VISTA NEGATIVE (< 25 ng/mL); THC Urine VISTA NEGATIVE (< 50 ng/mL); Vista UDS pH Range 5
[2018-09-15 08:50] LABS: ALB/GLOB Ratio 0.5 RATIO (0.9-2.4); AST(SGOT) 30 U/L (15-37); Alanine Aminotransfer ALT/SGPT 19 U/L (13-56); Albumin, Serum 2.1 g/dL (3.2-5.0); Alkaline Phosphatase 110 U/L (45-117); Anion Gap 16 (5-15); BUN 37 mg/dL (7-18); BUN/Creat Ratio 14.9 RATIO (10-20); Calcium,Total 8.5 mg/dL (8.5-10.1); Chloride 111 mmol/L (98-107); Creatinine, Serum 2.48 mg/dL (0.55-1.02); EST Glomerular Filtration Rate 20 mL/min (>60); Est Glom Filt Rate - Afr Amer 24 mL/min (>60); Estimated Creatinine Clearance 15.36 ml/min; Globulin 4.5 g/dL (2.2-4.2); Glucose 202 mg/dL (74-106); Lactic Acid 6.3 mmol/L (0.4-2.0); Lipase 96 U/L (73-393); Potassium 4.8 mmol/L (3.5-5.1); Protein, Total 6.6 g/dL (6.4-8.2); Sodium Level 142 mmol/L (136-145)
--- NOTE | 2018-09-15 08:51 | ED.RN ---
lactic acid 6.3 dr faust aware
[2018-09-15 08:58] LABS: Alcohol, Blood (Medical)-Serum < 3.0 mg/dL
--- NOTE | 2018-09-15 09:34 | ED.RN ---
FAMILY STATES THAT PRIOR TO SURGERY IN AUGUST PT WALKED WITH A WALKER BY HAS NOT WALKED SINCE AFTER THE SURGERY. A BOOT WAS PLACED ON HER RT FOOT X2 WEEKS FOR FOOT DROP.
--- NOTE | 2018-09-15 10:00 | PCM.CONS.GEN ---
Reason for Consult Date of Consultation: 09/15/18 Reason for Consultation: status epilepticus History of Present Illness: The patient is a 82 year old F admitted from snf with status epilepticus as below. Is now intubated in the intensive care unit, EEG is in process. I discussed the case with the emergency room physician, initially she was unresponsive and reportedly had unreactive pupils but she is responsive to pain now and moving spontaneously. Per ER notes: History of Present Illness: The patient is a 82 F who at 630 this morning was noted at the snf by her primary care physician to be in her steady state. Shortly thereafter the patient was noted to have seizure activity. Reportedly was intermittent but became constant. EMS was called and they note seizure activity of the arms the face. He states that they gave Versed. After Versed she required bag respirations. Total time of seizure activity was estimated to be 30-40 minutes. EMS notes that that she has half normal saline running through a left arm PICC line. In July the patient presented to the emergency department with evidence of perforated descending colon. 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 Apparently she had wound healing issues but has been doing fine. She is been at the snf and in the past week was noted to have acute kidney injury. Creatinine up to 3.6. BUN in the 60s. Ultrasound of the kidneys demonstrated no hydronephrosis. Patient has no reported seizure history. 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 Past Medical History Past Medical History (Chronic Problems): Chronic Problems (Last Reviewed 09/15/18 @ 10:01 by Donnie Perkins MD) Status post colostomy (Chronic) History of left colon perforation (Chronic) GERD (gastroesophageal reflux disease) (Chronic) Dysphagia (Chronic) 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) I25.10 Mild Hypothyroidism (Chronic) E03.9 COPD (chronic obstructive pulmonary disease) (Chronic) J44.9 Hyperlipidemia (Chronic) E78.5 Type 2 diabetes mellitus (Chronic) E11.9 Anemia D64.9 CVA (cerebral vascular accident) I63.9 Depression F32.9 Osteoarthritis M19.90 History of hysterectomy Z90.710 Allergies codeine Allergy (Severe, Verified 09/15/18 07:48) HEART ATTACK levofloxacin [From Levaquin] Allergy (Severe, Verified 09/15/18 07:48) Anaphylaxis Sulfa (Sulfonamide Antibiotics) Allergy (Unknown, Verified 09/15/18 07:48) Unknown adhesive tape Allergy (Verified 09/15/18 07:48) Other citalopram Allergy (Verified 09/15/18 07:48) Unknown Latex, Natural Rubber Allergy (Verified 09/15/18 07:48) Rash Penicillins Allergy (Verified 09/15/18 07:48) Rash acetaminophen [From Vicodin] Adverse Reaction (Verified 09/15/18 07:48) Chest tightness hydrocodone bitartrate [From Vicodin] Adverse Reaction (Verified 09/15/18 07:48) Chest tightness Home Medications: Ambulatory Orders Medication Instructions Recorded Albuterol Aerosols [Ventolin 2.5 mg INHALATION Q2H PRN PRN 09/15/18 Aerosols] Amiodarone HCl [Cordarone] 200 mg PO DAILY 09/15/18 Argin/Glut/Cahmb/Collag/Mv-Min 1 each PO BID 09/15/18 [Harsha Packet] Aspirin [Aspirin, Baby] 81 mg PO DAILY@0800 09/15/18 Chamosyn Ointment 1 applicatio TOPICAL BID 09/15/18 Cholecalciferol (Vitamin D3) 1,000 unit PO DAILY 09/15/18 [Vitamin D3] Cyanocobalamin [Vitamin B12] 500 mcg PO DAILY@0800 09/15/18 Dimethicone/Zinc Oxide [Hamilton 1 applicatio TP BID 09/15/18 Protect Cream] Insulin Aspart [Novolog Flexpen units SC UD 09/15/18 ([facility])] Insulin Glargine,Hum.rec.anlog 15 unit SQ BID 09/15/18 [Lantus Solostar] Levothyroxine [Synthroid] 25 mcg PO DAILY 09/15/18 Magnesium Hydroxide [Milk Of 30 ml PO DAILY PRN PRN 09/15/18 Magnesia] Megestrol Acetate 400 mg PO DAILY 09/15/18 Metoprolol Tartrate [Lopressor 25 mg PO DAILY 09/15/18 (Beta Jose)] Miconazole Nitrate [Micro-Guard] 2 % TP BID 09/15/18 Mirtazapine [Remeron] 15 mg PO QHS 09/15/18 Nut.tx.gluc Intol,Lf,Soy/Fiber 120 ml PO BID 09/15/18 [Boost Glucose Control Liquid] Ondansetron HCl [Zofran] 4 mg PO Q4H PRN 09/15/18 Pantoprazole Sodium [Protonix] 40 mg PO BID 09/15/18 Sennosides [Senna] 8.6 mg PO BID PRN 09/15/18 Surgical History: Surgical History (Last Reviewed 09/15/18 @ 10:01 by Donnie Perkins MD) History of arthroplasty of right hip Z96.641 History of back surgery Z98.890 Lumbar Disc History of left hip replacement Z96.642 History of total bilateral knee replacement Z96.653 History of tonsillectomy Z90.89 Surgical History: hysterectomy, total hip arthroplasty, - - Fractured femur, bilateral knee surgeries and bilateral hip surgeries Smoking Status: Never smoker - *Family History Maternal Family History: Family History (Last Reviewed 09/15/18 @ 10:01 by Donnie Perkins MD) Mother Diabetes Brother Atrial fibrillation Brother Diabetes Sister Diabetes History Items: Diabetes Paternal Family History: Family History (Last Reviewed 09/15/18 @ 10:01 by Donnie Perkins MD) Mother Diabetes Brother Atrial fibrillation Brother Diabetes Sister Diabetes History Items: Diabetes, Heart Disease Review of Systems Unable to obtain accurate/complete ROS d/t: Intubated Patient Problems: Active and Suspected Problems (Last Reviewed 09/15/18 @ 10:01 by Donnie Perkins MD) Acute respiratory failure (Acute) Lactic acidosis (Acute) Acute on chronic renal failure (Acute) Status epilepticus (Acute) Objective: The patient is intubated Pupils are equal bilaterally Symmetric grimace to noxious stimuli Withdraws both hands and both feet to noxious stimuli Does not respond to commands - Physical Exam Vital Signs Temp Pulse Resp BP Pulse Ox 37.6 C H 77 18 123/97 H 99 09/15/18 09:45 09/15/18 09:45 09/15/18 09:45 09/15/18 09:45 09/15/18 09:45 Oxygen Delivery Method Mechanical Ventilator Weight: 82.9 kg Body Mass Index (BMI) 31.4 Laboratory Tests Past 24 Hrs 09/15/18 09/15/18 09/15/18 08:00 08:00 08:00 WBC 13.7 H RBC 3.03 L Hgb 9.7 L Hct 30.1 L MCV 99.3 H MCH 32.0 MCHC 32.2 RDW 17.7 H RDW Differential 62.2 H Plt Count 337 MPV 9.3 Immature Gran % (Auto) 0.600 Neut % (Auto) 72.1 H Lymph % (Auto) 15.0 L [place] % (Auto) 6.2 Eos % (Auto) 5.7 H Baso % (Auto) 0.4 Absolute Neuts (auto) 9.9 H Absolute Lymphs (auto) 2.05 Total Counted Not Reportable PT 16.8 H INR 1.4 APTT 28.1 Specimen Type Sample Site pH Bicarbonate Actual POC Total CO2 Base Excess O2 Saturation O2 % ABG pCO2 ABG pO2 Cory Test Respiration Rate O2 Delivery Device Vent Mode Tidal Volume POC PEEP Blood Gas Notified Whom Blood Gas Notified Time Sodium 142 Potassium 4.8 Chloride 111 H Carbon Dioxide 15.0 L Anion Gap 16 H BUN 37 H Creatinine 2.48 H Estim Creat Clear Calc 15.36 Est GFR (MDRD) Af Amer 24 L Est GFR (MDRD) Non-Af 20 L BUN/Creatinine Ratio 14.9 Glucose 202 H Lactic Acid Calcium 8.5 Total Bilirubin 0.30 AST 30 ALT 19 Alkaline Phosphatase 110 Troponin I < 0.015 Total Protein 6.6 Albumin 2.1 L Globulin 4.5 H Albumin/Globulin Ratio 0.5 L Lipase 96 Urine Color Urine Clarity Urine pH Ur Specific Pony Urine Protein Urine Glucose (UA) Urine Ketones Urine Occult Blood Urine Nitrite Urine Bilirubin Urine Urobilinogen Ur Leukocyte Esterase Urine RBC Urine WBC Ur Squamous Epith Cells Urine Bacteria Urine Mucus Urine Opiates Screen Urine Methadone Screen Ur Barbiturates Screen Ur Phencyclidine Scrn Ur Amphetamines Screen U Methamphetamin-MDMA U Benzodiazepines Scrn Urine Cocaine Screen U Cannabinoids Screen Ur Drug Screen Comment Ethyl Alcohol 09/15/18 09/15/18 09/15/18 08:00 08:00 08:05 WBC RBC Hgb Hct MCV MCH MCHC RDW RDW Differential Plt Count MPV Immature Gran % (Auto) Neut % (Auto) Lymph % (Auto) [place] % (Auto) Eos % (Auto) Baso % (Auto) Absolute Neuts (auto) Absolute Lymphs (auto) Total Counted PT INR APTT Specimen Type Sample Site pH Bicarbonate Actual POC Total CO2 Base Excess O2 Saturation O2 % ABG pCO2 ABG pO2 Cory Test Respiration Rate O2 Delivery Device Vent Mode Tidal Volume POC PEEP Blood Gas Notified Whom Blood Gas Notified Time Sodium Potassium Chloride Carbon Dioxide Anion Gap BUN Creatinine Estim Creat Clear Calc Est GFR (MDRD) Af Amer Est GFR (MDRD) Non-Af BUN/Creatinine Ratio Glucose Lactic Acid 6.3 H* Calcium Total Bilirubin AST ALT Alkaline Phosphatase Troponin I Total Protein Albumin Globulin Albumin/Globulin Ratio Lipase Urine Color Yellow Urine Clarity Sl. Cloudy Urine pH 5.0 Ur Specific Pony 1.015 Urine Protein 30 H Urine Glucose (UA) Normal Urine Ketones Negative Urine Occult Blood 50 H Urine Nitrite Negative Urine Bilirubin Negative Urine Urobilinogen Normal Ur Leukocyte Esterase 500 H Urine RBC 0 SEEN Urine WBC >100 SEEN Ur Squamous Epith Cells 0 SEEN Urine Bacteria 0 SEEN Urine Mucus 0 SEEN Urine Opiates Screen Urine Methadone Screen Ur Barbiturates Screen Ur Phencyclidine Scrn Ur Amphetamines Screen U Methamphetamin-MDMA U Benzodiazepines Scrn Urine Cocaine Screen U Cannabinoids Screen Ur Drug Screen Comment Ethyl Alcohol < 3.0 09/15/18 09/15/18 08:05 08:32 WBC RBC Hgb Hct MCV MCH MCHC RDW RDW Differential Plt Count MPV Immature Gran % (Auto) Neut % (Auto) Lymph % (Auto) [place] % (Auto) Eos % (Auto) Baso % (Auto) Absolute Neuts (auto) Absolute Lymphs (auto) Total Counted PT INR APTT Specimen Type ART Sample Site L Radial pH 7.33 L Bicarbonate Actual 14.1 L POC Total CO2 15 Base Excess -12 L O2 Saturation 97 O2 % 40 ABG pCO2 26.7 L ABG pO2 93 Cory Test POS Respiration Rate 12 O2 Delivery Device Vent Vent Mode A-C Tidal Volume 450 POC PEEP 5 Blood Gas Notified Whom ED Blood Gas Notified Time 831 Sodium Potassium Chloride Carbon Dioxide Anion Gap BUN Creatinine Estim Creat Clear Calc Est GFR (MDRD) Af Amer Est GFR (MDRD) Non-Af BUN/Creatinine Ratio Glucose Lactic Acid Calcium Total Bilirubin AST ALT Alkaline Phosphatase Troponin I Total Protein Albumin Globulin Albumin/Globulin Ratio Lipase Urine Color Urine Clarity Urine pH Ur Specific Pony Urine Protein Urine Glucose (UA) Urine Ketones Urine Occult Blood Urine Nitrite Urine Bilirubin Urine Urobilinogen Ur Leukocyte Esterase Urine RBC Urine WBC Ur Squamous Epith Cells Urine Bacteria Urine Mucus Urine Opiates Screen NEGATIVE Urine Methadone Screen NEGATIVE Ur Barbiturates Screen NEGATIVE Ur Phencyclidine Scrn NEGATIVE Ur Amphetamines Screen NEGATIVE U Methamphetamin-MDMA NEGATIVE U Benzodiazepines Scrn NEGATIVE Urine Cocaine Screen NEGATIVE U Cannabinoids Screen NEGATIVE Ur Drug Screen Comment Ethyl Alcohol Current Medications Generic Name Dose Route Start Last Admin Trade Name Freq PRN Reason Stop Dose Admin Sodium Chloride 1,000 mls @ 125 mls/hr 09/15/18 08:05 09/15/18 08:17 IV 125 mls/hr .Q8H DICKSON Administration Propofol 1,000 mg in 100 mls @ 2.487 mls/hr 09/15/18 08:05 09/15/18 08:13 Diprivan CONT INF Not Given .Q12H DICKSON Protocol 5 MCG/KG/MIN I reviewed CT today compared to CT 03/18, she has a chronic left MCA distribution infarct which today does look somewhat larger than previous scan but it looks old in any event on both scans and may be due to positioning in the scanner. Assessment/Plan All Active Problems (Last Reviewed 09/15/18 @ 10:01 by Donnie Perkins MD) Acute respiratory failure (Acute) Lactic acidosis (Acute) Acute on chronic renal failure (Acute) Status epilepticus (Acute) Status epilepticus: Likely due to old stroke. Character of the stroke although still looks chronic on CAT scan has changed from previous CAT scan. MRI brain when able EEG in process preliminarily no epileptiform discharges Received 1000 mg IV Keppra, continue 500 twice daily
--- NOTE | 2018-09-15 10:10 | CON.PCM_ITS ---
Reason for Consult Date of Consultation: 09/15/18 Reason for Consultation: status epilepticus History of Present Illness: The patient is a 82 year old F admitted from residential with status epilepticus as below. Is now intubated in the intensive care unit, EEG is in process. I discussed the case with the emergency room physician, initially she was unresponsive and reportedly had unreactive pupils but she is responsive to pain now and moving spontaneously. Per ER notes: History of Present Illness: The patient is a 82 F who at 630 this morning was noted at the residential by her primary care physician to be in her steady state. Shortly thereafter the patient was noted to have seizure activity. Reportedly was intermittent but became constant. EMS was called and they note seizure activity of the arms the face. He states that they gave Versed. After Versed she required bag respirations. Total time of seizure activity was estimated to be 30-40 minutes. EMS notes that that she has half normal saline running through a left arm PICC line. In July the patient presented to the emergency department with evidence of perforated descending colon. 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 Apparently she had wound healing issues but has been doing fine. She is been at the residential and in the past week was noted to have acute kidney injury. Creatinine up to 3.6. BUN in the 60s. Ultrasound of the kidneys demonstrated no hydronephrosis. Patient has no reported seizure history. 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 Past Medical History Past Medical History (Chronic Problems): Chronic Problems (Last Reviewed 09/15/18 @ 10:01 by Donnie Perkins MD) Status post colostomy (Chronic) History of left colon perforation (Chronic) GERD (gastroesophageal reflux disease) (Chronic) Dysphagia (Chronic) 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 Non-healing surgical wound (Chronic) Wound dehiscence, surgical (Chronic) Takotsubo cardiomyopathy (Chronic) Nonrheumatic tricuspid (valve) insufficiency (Chronic) 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 Hypothyroidism (Chronic) COPD (chronic obstructive pulmonary disease) (Chronic) Hyperlipidemia (Chronic) Type 2 diabetes mellitus (Chronic) Medical History: Medical History (Last Reviewed 09/15/18 @ 10:01 by Donnie Perkins MD) Takotsubo cardiomyopathy (Chronic) I51.81 Nonrheumatic tricuspid (valve) insufficiency (Chronic) I36.1 Atherosclerotic heart disease of [place] coronary artery without angina pectoris (Chronic) I25.10 Mild Hypothyroidism (Chronic) E03.9 COPD (chronic obstructive pulmonary disease) (Chronic) J44.9 Hyperlipidemia (Chronic) E78.5 Type 2 diabetes mellitus (Chronic) E11.9 Anemia D64.9 CVA (cerebral vascular accident) I63.9 Depression F32.9 Osteoarthritis M19.90 History of hysterectomy Z90.710 Allergies codeine Allergy (Severe, Verified 09/15/18 07:48) HEART ATTACK levofloxacin [From Levaquin] Allergy (Severe, Verified 09/15/18 07:48) Anaphylaxis Sulfa (Sulfonamide Antibiotics) Allergy (Unknown, Verified 09/15/18 07:48) Unknown adhesive tape Allergy (Verified 09/15/18 07:48) Other citalopram Allergy (Verified 09/15/18 07:48) Unknown Latex, Natural Rubber Allergy (Verified 09/15/18 07:48) Rash Penicillins Allergy (Verified 09/15/18 07:48) Rash acetaminophen [From Vicodin] Adverse Reaction (Verified 09/15/18 07:48) Chest tightness hydrocodone bitartrate [From Vicodin] Adverse Reaction (Verified 09/15/18 07:48) Chest tightness Home Medications: Ambulatory Orders Medication Instructions Recorded Albuterol Aerosols [Ventolin 2.5 mg INHALATION Q2H PRN PRN 09/15/18 Aerosols] Amiodarone HCl [Cordarone] 200 mg PO DAILY 09/15/18 Argin/Glut/Cahmb/Collag/Mv-Min 1 each PO BID 09/15/18 [Harsha Packet] Aspirin [Aspirin, Baby] 81 mg PO DAILY@0800 09/15/18 Chamosyn Ointment 1 applicatio TOPICAL BID 09/15/18 Cholecalciferol (Vitamin D3) 1,000 unit PO DAILY 09/15/18 [Vitamin D3] Cyanocobalamin [Vitamin B12] 500 mcg PO DAILY@0800 09/15/18 Dimethicone/Zinc Oxide [[place] 1 applicatio TP BID 09/15/18 Protect Cream] Insulin Aspart [Novolog Flexpen units SC UD 09/15/18 ([facility])] Insulin Glargine,Hum.rec.anlog 15 unit SQ BID 09/15/18 [Lantus Solostar] Levothyroxine [Synthroid] 25 mcg PO DAILY 09/15/18 Magnesium Hydroxide [Milk Of 30 ml PO DAILY PRN PRN 09/15/18 Magnesia] Megestrol Acetate 400 mg PO DAILY 09/15/18 Metoprolol Tartrate [Lopressor 25 mg PO DAILY 09/15/18 (Beta Jose)] Miconazole Nitrate [Micro-Guard] 2 % TP BID 09/15/18 Mirtazapine [Remeron] 15 mg PO QHS 09/15/18 Nut.tx.gluc Intol,Lf,Soy/Fiber 120 ml PO BID 09/15/18 [Boost Glucose Control Liquid] Ondansetron HCl [Zofran] 4 mg PO Q4H PRN 09/15/18 Pantoprazole Sodium [Protonix] 40 mg PO BID 09/15/18 Sennosides [Senna] 8.6 mg PO BID PRN 09/15/18 Surgical History: Surgical History (Last Reviewed 09/15/18 @ 10:01 by Donnie Perkins MD) History of arthroplasty of right hip Z96.641 History of back surgery Z98.890 Lumbar Disc History of left hip replacement Z96.642 History of total bilateral knee replacement Z96.653 History of tonsillectomy Z90.89 Surgical History: hysterectomy, total hip arthroplasty, - - Fractured femur, bilateral knee surgeries and bilateral hip surgeries Smoking Status: Never smoker - *Family History Maternal Family History: Family History (Last Reviewed 09/15/18 @ 10:01 by Donnie Perkins MD) Mother Diabetes Brother Atrial fibrillation Brother Diabetes Sister Diabetes History Items: Diabetes Paternal Family History: Family History (Last Reviewed 09/15/18 @ 10:01 by Donnie Perkins MD) Mother Diabetes Brother Atrial fibrillation Brother Diabetes Sister Diabetes History Items: Diabetes, Heart Disease Review of Systems Unable to obtain accurate/complete ROS d/t: Intubated Patient Problems: Active and Suspected Problems (Last Reviewed 09/15/18 @ 10:01 by Donnie Perkins MD) Acute respiratory failure (Acute) Lactic acidosis (Acute) Acute on chronic renal failure (Acute) Status epilepticus (Acute) Objective: The patient is intubated Pupils are equal bilaterally Symmetric grimace to noxious stimuli Withdraws both hands and both feet to noxious stimuli Does not respond to commands - Physical Exam Vital Signs Temp Pulse Resp BP Pulse Ox 37.6 C H 77 18 123/97 H 99 09/15/18 09:45 09/15/18 09:45 09/15/18 09:45 09/15/18 09:45 09/15/18 09:45 Oxygen Delivery Method Mechanical Ventilator Weight: 82.9 kg Body Mass Index (BMI) 31.4 Laboratory Tests Past 24 Hrs 09/15/18 09/15/18 09/15/18 08:00 08:00 08:00 WBC 13.7 H RBC 3.03 L Hgb 9.7 L Hct 30.1 L MCV 99.3 H MCH 32.0 MCHC 32.2 RDW 17.7 H RDW Differential 62.2 H Plt Count 337 MPV 9.3 Immature Gran % (Auto) 0.600 Neut % (Auto) 72.1 H Lymph % (Auto) 15.0 L Ross % (Auto) 6.2 Eos % (Auto) 5.7 H Baso % (Auto) 0.4 Absolute Neuts (auto) 9.9 H Absolute Lymphs (auto) 2.05 Total Counted Not Reportable PT 16.8 H INR 1.4 APTT 28.1 Specimen Type Sample Site pH Bicarbonate Actual POC Total CO2 Base Excess O2 Saturation O2 % ABG pCO2 ABG pO2 Croy Test Respiration Rate O2 Delivery Device Vent Mode Tidal Volume POC PEEP Blood Gas Notified Whom Blood Gas Notified Time Sodium 142 Potassium 4.8 Chloride 111 H Carbon Dioxide 15.0 L Anion Gap 16 H BUN 37 H Creatinine 2.48 H Estim Creat Clear Calc 15.36 Est GFR (MDRD) Af Amer 24 L Est GFR (MDRD) Non-Af 20 L BUN/Creatinine Ratio 14.9 Glucose 202 H Lactic Acid Calcium 8.5 Total Bilirubin 0.30 AST 30 ALT 19 Alkaline Phosphatase 110 Troponin I < 0.015 Total Protein 6.6 Albumin 2.1 L Globulin 4.5 H Albumin/Globulin Ratio 0.5 L Lipase 96 Urine Color Urine Clarity Urine pH Ur Specific [place] Urine Protein Urine Glucose (UA) Urine Ketones Urine Occult Blood Urine Nitrite Urine Bilirubin Urine Urobilinogen Ur Leukocyte Esterase Urine RBC Urine WBC Ur Squamous Epith Cells Urine Bacteria Urine Mucus Urine Opiates Screen Urine Methadone Screen Ur Barbiturates Screen Ur Phencyclidine Scrn Ur Amphetamines Screen U Methamphetamin-MDMA U Benzodiazepines Scrn Urine Cocaine Screen U Cannabinoids Screen Ur Drug Screen Comment Ethyl Alcohol 09/15/18 09/15/18 09/15/18 08:00 08:00 08:05 WBC RBC Hgb Hct MCV MCH MCHC RDW RDW Differential Plt Count MPV Immature Gran % (Auto) Neut % (Auto) Lymph % (Auto) Ross % (Auto) Eos % (Auto) Baso % (Auto) Absolute Neuts (auto) Absolute Lymphs (auto) Total Counted PT INR APTT Specimen Type Sample Site pH Bicarbonate Actual POC Total CO2 Base Excess O2 Saturation O2 % ABG pCO2 ABG pO2 Cory Test Respiration Rate O2 Delivery Device Vent Mode Tidal Volume POC PEEP Blood Gas Notified Whom Blood Gas Notified Time Sodium Potassium Chloride Carbon Dioxide Anion Gap BUN Creatinine Estim Creat Clear Calc Est GFR (MDRD) Af Amer Est GFR (MDRD) Non-Af BUN/Creatinine Ratio Glucose Lactic Acid 6.3 H* Calcium Total Bilirubin AST ALT Alkaline Phosphatase Troponin I Total Protein Albumin Globulin Albumin/Globulin Ratio Lipase Urine Color Yellow Urine Clarity Sl. Cloudy Urine pH 5.0 Ur Specific [place] 1.015 Urine Protein 30 H Urine Glucose (UA) Normal Urine Ketones Negative Urine Occult Blood 50 H Urine Nitrite Negative Urine Bilirubin Negative Urine Urobilinogen Normal Ur Leukocyte Esterase 500 H Urine RBC 0 SEEN Urine WBC >100 SEEN Ur Squamous Epith Cells 0 SEEN Urine Bacteria 0 SEEN Urine Mucus 0 SEEN Urine Opiates Screen Urine Methadone Screen Ur Barbiturates Screen Ur Phencyclidine Scrn Ur Amphetamines Screen U Methamphetamin-MDMA U Benzodiazepines Scrn Urine Cocaine Screen U Cannabinoids Screen Ur Drug Screen Comment Ethyl Alcohol < 3.0 09/15/18 09/15/18 08:05 08:32 WBC RBC Hgb Hct MCV MCH MCHC RDW RDW Differential Plt Count MPV Immature Gran % (Auto) Neut % (Auto) Lymph % (Auto) Ross % (Auto) Eos % (Auto) Baso % (Auto) Absolute Neuts (auto) Absolute Lymphs (auto) Total Counted PT INR APTT Specimen Type ART Sample Site L Radial pH 7.33 L Bicarbonate Actual 14.1 L POC Total CO2 15 Base Excess -12 L O2 Saturation 97 O2 % 40 ABG pCO2 26.7 L ABG pO2 93 Cory Test POS Respiration Rate 12 O2 Delivery Device Vent Vent Mode A-C Tidal Volume 450 POC PEEP 5 Blood Gas Notified Whom ED Blood Gas Notified Time 831 Sodium Potassium Chloride Carbon Dioxide Anion Gap BUN Creatinine Estim Creat Clear Calc Est GFR (MDRD) Af Amer Est GFR (MDRD) Non-Af BUN/Creatinine Ratio Glucose Lactic Acid Calcium Total Bilirubin AST ALT Alkaline Phosphatase Troponin I Total Protein Albumin Globulin Albumin/Globulin Ratio Lipase Urine Color Urine Clarity Urine pH Ur Specific [place] Urine Protein Urine Glucose (UA) Urine Ketones Urine Occult Blood Urine Nitrite Urine Bilirubin Urine Urobilinogen Ur Leukocyte Esterase Urine RBC Urine WBC Ur Squamous Epith Cells Urine Bacteria Urine Mucus Urine Opiates Screen NEGATIVE Urine Methadone Screen NEGATIVE Ur Barbiturates Screen NEGATIVE Ur Phencyclidine Scrn NEGATIVE Ur Amphetamines Screen NEGATIVE U Methamphetamin-MDMA NEGATIVE U Benzodiazepines Scrn NEGATIVE Urine Cocaine Screen NEGATIVE U Cannabinoids Screen NEGATIVE Ur Drug Screen Comment Ethyl Alcohol Current Medications Generic Name Dose Route Start Last Admin Trade Name Freq PRN Reason Stop Dose Admin Sodium Chloride 1,000 mls @ 125 mls/hr 09/15/18 08:05 09/15/18 08:17 IV 125 mls/hr .Q8H DICKSON Administration Propofol 1,000 mg in 100 mls @ 2.487 mls/hr 09/15/18 08:05 09/15/18 08:13 Diprivan CONT INF Not Given .Q12H DICKSON Protocol 5 MCG/KG/MIN I reviewed CT today compared to CT 03/18, she has a chronic left MCA distribution infarct which today does look somewhat larger than previous scan but it looks old in any event on both scans and may be due to positioning in the scanner. Assessment/Plan All Active Problems (Last Reviewed 09/15/18 @ 10:01 by Donnie Perkins MD) Acute respiratory failure (Acute) Lactic acidosis (Acute) Acute on chronic renal failure (Acute) Status epilepticus (Acute) Status epilepticus: Likely due to old stroke. Character of the stroke although still looks chronic on CAT scan has changed from previous CAT scan. * MRI brain when able * EEG in process preliminarily no epileptiform discharges * Received 1000 mg IV Keppra, continue 500 twice daily
--- NOTE | 2018-09-15 10:44 | PCM.HP.STD ---
Problem List (1) Acute respiratory failure Status: Acute (2) Lactic acidosis Status: Acute (3) Acute on chronic renal failure Status: Acute (4) Status epilepticus Status: Acute (5) Status post colostomy Status: Chronic (6) GERD (gastroesophageal reflux disease) Status: Chronic (7) Wound dehiscence, surgical Status: Chronic (8) Takotsubo cardiomyopathy Status: Chronic (9) Atherosclerotic heart disease of [place] coronary artery without angina pectoris Status: Chronic Qualifiers: [place] vs. transplanted heart: [place] heart Qualified Code(s): I25.10 - Atherosclerotic heart disease of [place] coronary artery without angina pectoris Comment: Mild (10) Hypothyroidism Status: Chronic Qualifiers: Hypothyroidism type: unspecified Qualified Code(s): E03.9 - Hypothyroidism, unspecified (11) COPD (chronic obstructive pulmonary disease) Status: Chronic Qualifiers: Emphysema type: unspecified (12) Hyperlipidemia Status: Chronic Qualifiers: Hyperlipidemia type: unspecified Qualified Code(s): E78.5 - Hyperlipidemia, unspecified (13) Type 2 diabetes mellitus Status: Chronic Qualifiers: History of Present Illness Date of Admission: 09/15/18 Chief Complaint: Unresponsiveness, status epilepticus. The patient is a 82 year old F with past medical history as mentioned above presented to the emergency room from the assisted because of continuous seizure. At this time, patient is intubated and on mechanical ventilation and she is not able to provide any history. No family members at the bedside. According to the ER physician, this morning around 6:30 AM, patient was seen by her PCP and she was okay. Shortly after, she was noted to have seizure involving her both upper extremities and her face and she was seizing for about 30-40 minutes. She was given IV Versed but patient continued to seize. At later time, patient's daughter was available at the bedside who is the power of commercial real estate attorney. She stated that her mother had single one-time seizure back in August, but never been on antiseizure medications. She had a recent history of left colon perforation complicated by peritonitis for which she underwent exploratory laparotomy, left colon resection and end colostomy on July,. Her postoperative course complicated by surgical abdominal wound infection and dehiscence status post wound VAC insertion. She has a history of type 2 diabetes mellitus which is apparently uncontrolled and she has been on Lantus insulin as well as sliding scale and her hemoglobin A1c was 10 on July,. She has history of coronary artery disease without prior interventions and she has been on aspirin and metoprolol. She has a history of Takotsubo cardiomyopathy which has been improving and she had 2D echocardiogram on Mar, 2018 that showed ejection fraction of 65%. At this time, no evidence of acute CHF. In the emergency department, patient was unresponsive. She was afebrile, blood pressure and heart rate are stable. She was intubated and started on mechanical ventilation for airway protection. Her routine blood work was remarkable for leukocytosis, hemoglobin of 9.7 g/dL. Creatinine is 2.48. Lactic acid was 6.3. EKG revealed no acute ischemic changes. Troponin was negative. LFT and lipase were normal. Urinalysis revealed cloudy urine, negative for nitrite, positive for leukocyte esterase and there was more than 100 WBCs consistent with pyuria and there was 0 bacteria seen. Urine drug screen was negative. ABG revealed pH of 7.33, PCO2 of 26 [address] PO2 of 93. CT scan brain showed no evidence of acute infarction or hemorrhage. She is being admitted for status epilepticus without history of seizure disorder in the past, also admitted for lactic acidosis which is attributed to status epilepticus, also found to have acute on chronic renal failure and acute cystitis. Past Medical History Past Medical History (Chronic Problems): Chronic Problems (Last Reviewed 09/15/18 @ 10:01 by Donnie Perkins MD) Status post colostomy (Chronic) History of left colon perforation (Chronic) GERD (gastroesophageal reflux disease) (Chronic) Dysphagia (Chronic) 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 Non-healing surgical wound (Chronic) Wound dehiscence, surgical (Chronic) Takotsubo cardiomyopathy (Chronic) Nonrheumatic tricuspid (valve) insufficiency (Chronic) Atherosclerotic heart disease of [place] coronary artery without angina pectoris (Chronic) Mild Hypothyroidism (Chronic) COPD (chronic obstructive pulmonary disease) (Chronic) Hyperlipidemia (Chronic) Type 2 diabetes mellitus (Chronic) Medical History: Medical History (Last Reviewed 09/15/18 @ 10:01 by Donnie Perkins MD) Takotsubo cardiomyopathy (Chronic) I51.81 Nonrheumatic tricuspid (valve) insufficiency (Chronic) I36.1 Atherosclerotic heart disease of [place] coronary artery without angina pectoris (Chronic) I25.10 Mild Hypothyroidism (Chronic) E03.9 COPD (chronic obstructive pulmonary disease) (Chronic) J44.9 Hyperlipidemia (Chronic) E78.5 Type 2 diabetes mellitus (Chronic) E11.9 Anemia D64.9 CVA (cerebral vascular accident) I63.9 Depression F32.9 Osteoarthritis M19.90 History of hysterectomy Z90.710 Allergies codeine Allergy (Severe, Verified 09/15/18 07:48) HEART ATTACK levofloxacin [From Levaquin] Allergy (Severe, Verified 09/15/18 07:48) Anaphylaxis Sulfa (Sulfonamide Antibiotics) Allergy (Unknown, Verified 09/15/18 07:48) Unknown adhesive tape Allergy (Verified 09/15/18 07:48) Other citalopram Allergy (Verified 09/15/18 07:48) Unknown Latex, Natural Rubber Allergy (Verified 09/15/18 07:48) Rash Penicillins Allergy (Verified 09/15/18 07:48) Rash acetaminophen [From Vicodin] Adverse Reaction (Verified 09/15/18 07:48) Chest tightness hydrocodone bitartrate [From Vicodin] Adverse Reaction (Verified 09/15/18 07:48) Chest tightness Home Medications: Ambulatory Orders Medication Instructions Recorded Amiodarone HCl [Cordarone] 200 mg PO DAILY 09/15/18 Argin/Glut/Cahmb/Collag/Mv-Min 1 each PO BID 09/15/18 [Harsha Packet] Aspirin [Aspirin, Baby] 81 mg PO DAILY@0800 09/15/18 Atorvastatin Calcium [Lipitor] 20 mg PO QHS 09/15/18 Cholecalciferol (Vitamin D3) 1,000 unit PO DAILY 09/15/18 [Vitamin D3] Cyanocobalamin [Vitamin B12] 500 mcg PO DAILY@0800 09/15/18 Insulin Aspart [Novolog Flexpen See Protocol SC UD 09/15/18 ([facility])] Insulin Glargine,Hum.rec.anlog 15 unit SQ BID 09/15/18 [Lantus Solostar] Levothyroxine [Synthroid] 25 mcg PO DAILY 09/15/18 Megestrol Acetate 400 mg PO DAILY 09/15/18 Metoprolol Tartrate [Lopressor 25 mg PO BID 09/15/18 (Beta Jose)] Mirtazapine [Remeron] 15 mg PO QHS 09/15/18 Nut.tx.gluc Intol,Lf,Soy/Fiber 120 ml PO 4X/DAY 09/15/18 [Boost Glucose Control Liquid] Pantoprazole Sodium [Protonix] 40 mg PO BID 09/15/18 Sennosides [Senna] 8.6 mg PO BID 09/15/18 Surgical History: Surgical History (Last Reviewed 09/15/18 @ 10:01 by Donnie Perkins MD) History of arthroplasty of right hip Z96.641 History of back surgery Z98.890 Lumbar Disc History of left hip replacement Z96.642 History of total bilateral knee replacement Z96.653 History of tonsillectomy Z90.89 Surgical History: hysterectomy, total hip arthroplasty, - - Fractured femur, bilateral knee surgeries and bilateral hip surgeries Psychiatric History: No pertinent psych hx 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 Eyes: Reports: - - Unobtainable, patient is intubated. HEENT: Reports: - - Unobtainable, patient is intubated. Cardiovascular: Reports: - - Unobtainable, patient is intubated. Respiratory: Reports: - - Unobtainable, patient is intubated. Gastrointestinal: Reports: - - Unobtainable, patient is intubated. Genitourinary: Reports: - - Unobtainable, patient is intubated. Musculoskeletal: Reports: - - Unobtainable, patient is intubated. Skin: Reports: - - Unobtainable, patient is intubated. Neurological: Reports: - - Unobtainable, patient is intubated. Endocrine: Reports: - - Unobtainable, patient is intubated. VTE Information - Inpt Only VTE Present on Admission: No VTE Mechan Device Prophylaxis: SCD's VTE Pharm Prophylaxis ordered?: Yes Patient Problems: Active and Suspected Problems (Last Reviewed 09/15/18 @ 10:01 by Donnie Perkins MD) Acute respiratory failure (Acute) Lactic acidosis (Acute) Acute on chronic renal failure (Acute) Status epilepticus (Acute) - Physical Exam General: - - Patient is intubated, spontaneous eye opening, flexor response to pain. HEENT: Atraumatic, PERRLA, EOMI Oral: Moist Mucosa, No Gingival or Mucosal Lesions/ Ulcerations Neck: Supple, No JVD, Negative Carotid Bruits, Trachea Midline, Thyroid Normal Size and Texture Lungs: Clear to auscultation, No wheeze, No rales, Diminished, Rhonchi Cardiovascular: Regular rate, Regular Rhythm, Normal S1, Normal S2, PMI Normal Abdomen: Bowel Sounds Present, Soft, Non Tender, Non-Distended, No Hepato-splenomegaly, - - Colostomy bag in place. Wound VAC on the midline surgical wound. Extremities: No clubbing, No cyanosis, Edema - Trace edema. Skin: No rashes, Ulcer/ Wound, Incision Lymphatic: No Cervical, Supraclavicular, or Inguinal Adenopathy Neurological: - - Unable to assess. At this time, patient started to wake up, spontaneous eye opening and flexor response to pain. Psych/Mental Status: - - Unable to assess. Vital Signs Temp Pulse Resp BP Pulse Ox 99.7 F H 75 17 151/82 H 100 09/15/18 09:45 09/15/18 10:00 09/15/18 10:00 09/15/18 10:00 09/15/18 10:00 Oxygen Delivery Method Mechanical Ventilator Weight: 182 lb 12.211 oz Body Mass Index (BMI) 31.4 Intake and Output for Last 24 Hours 09/13/18 09/14/18 09/15/18 23:59 23:59 23:59 Output Total 220 / 220 Balance -220 / -220 Laboratory Tests Past 24 Hrs 09/15/18 09/15/18 09/15/18 08:00 08:00 08:00 WBC 13.7 H RBC 3.03 L Hgb 9.7 L Hct 30.1 L MCV 99.3 H MCH 32.0 MCHC 32.2 RDW 17.7 H RDW Differential 62.2 H Plt Count 337 MPV 9.3 Immature Gran % (Auto) 0.600 Neut % (Auto) 72.1 H Lymph % (Auto) 15.0 L [place] % (Auto) 6.2 Eos % (Auto) 5.7 H Baso % (Auto) 0.4 Absolute Neuts (auto) 9.9 H Absolute Lymphs (auto) 2.05 Total Counted Not Reportable PT 16.8 H INR 1.4 APTT 28.1 Specimen Type Sample Site pH Bicarbonate Actual POC Total CO2 Base Excess O2 Saturation O2 % ABG pCO2 ABG pO2 Cory Test Respiration Rate O2 Delivery Device Vent Mode Tidal Volume POC PEEP Blood Gas Notified Whom Blood Gas Notified Time Sodium 142 Potassium 4.8 Chloride 111 H Carbon Dioxide 15.0 L Anion Gap 16 H BUN 37 H Creatinine 2.48 H Estim Creat Clear Calc 15.36 Est GFR (MDRD) Af Amer 24 L Est GFR (MDRD) Non-Af 20 L BUN/Creatinine Ratio 14.9 Glucose 202 H Lactic Acid Calcium 8.5 Total Bilirubin 0.30 AST 30 ALT 19 Alkaline Phosphatase 110 Troponin I < 0.015 Total Protein 6.6 Albumin 2.1 L Globulin 4.5 H Albumin/Globulin Ratio 0.5 L Lipase 96 Urine Color Urine Clarity Urine pH Ur Specific Wirt Urine Protein Urine Glucose (UA) Urine Ketones Urine Occult Blood Urine Nitrite Urine Bilirubin Urine Urobilinogen Ur Leukocyte Esterase Urine RBC Urine WBC Ur Squamous Epith Cells Urine Bacteria Urine Mucus Urine Opiates Screen Urine Methadone Screen Ur Barbiturates Screen Ur Phencyclidine Scrn Ur Amphetamines Screen U Methamphetamin-MDMA U Benzodiazepines Scrn Urine Cocaine Screen U Cannabinoids Screen Ur Drug Screen Comment Ethyl Alcohol 09/15/18 09/15/18 09/15/18 08:00 08:00 08:05 WBC RBC Hgb Hct MCV MCH MCHC RDW RDW Differential Plt Count MPV Immature Gran % (Auto) Neut % (Auto) Lymph % (Auto) [place] % (Auto) Eos % (Auto) Baso % (Auto) Absolute Neuts (auto) Absolute Lymphs (auto) Total Counted PT INR APTT Specimen Type Sample Site pH Bicarbonate Actual POC Total CO2 Base Excess O2 Saturation O2 % ABG pCO2 ABG pO2 Cory Test Respiration Rate O2 Delivery Device Vent Mode Tidal Volume POC PEEP Blood Gas Notified Whom Blood Gas Notified Time Sodium Potassium Chloride Carbon Dioxide Anion Gap BUN Creatinine Estim Creat Clear Calc Est GFR (MDRD) Af Amer Est GFR (MDRD) Non-Af BUN/Creatinine Ratio Glucose Lactic Acid 6.3 H* Calcium Total Bilirubin AST ALT Alkaline Phosphatase Troponin I Total Protein Albumin Globulin Albumin/Globulin Ratio Lipase Urine Color Yellow Urine Clarity Sl. Cloudy Urine pH 5.0 Ur Specific Wirt 1.015 Urine Protein 30 H Urine Glucose (UA) Normal Urine Ketones Negative Urine Occult Blood 50 H Urine Nitrite Negative Urine Bilirubin Negative Urine Urobilinogen Normal Ur Leukocyte Esterase 500 H Urine RBC 0 SEEN Urine WBC >100 SEEN Ur Squamous Epith Cells 0 SEEN Urine Bacteria 0 SEEN Urine Mucus 0 SEEN Urine Opiates Screen Urine Methadone Screen Ur Barbiturates Screen Ur Phencyclidine Scrn Ur Amphetamines Screen U Methamphetamin-MDMA U Benzodiazepines Scrn Urine Cocaine Screen U Cannabinoids Screen Ur Drug Screen Comment Ethyl Alcohol < 3.0 09/15/18 09/15/18 08:05 08:32 WBC RBC Hgb Hct MCV MCH MCHC RDW RDW Differential Plt Count MPV Immature Gran % (Auto) Neut % (Auto) Lymph % (Auto) [place] % (Auto) Eos % (Auto) Baso % (Auto) Absolute Neuts (auto) Absolute Lymphs (auto) Total Counted PT INR APTT Specimen Type ART Sample Site L Radial pH 7.33 L Bicarbonate Actual 14.1 L POC Total CO2 15 Base Excess -12 L O2 Saturation 97 O2 % 40 ABG pCO2 26.7 L ABG pO2 93 Cory Test POS Respiration Rate 12 O2 Delivery Device Vent Vent Mode A-C Tidal Volume 450 POC PEEP 5 Blood Gas Notified Whom ED Blood Gas Notified Time 831 Sodium Potassium Chloride Carbon Dioxide Anion Gap BUN Creatinine Estim Creat Clear Calc Est GFR (MDRD) Af Amer Est GFR (MDRD) Non-Af BUN/Creatinine Ratio Glucose Lactic Acid Calcium Total Bilirubin AST ALT Alkaline Phosphatase Troponin I Total Protein Albumin Globulin Albumin/Globulin Ratio Lipase Urine Color Urine Clarity Urine pH Ur Specific Wirt Urine Protein Urine Glucose (UA) Urine Ketones Urine Occult Blood Urine Nitrite Urine Bilirubin Urine Urobilinogen Ur Leukocyte Esterase Urine RBC Urine WBC Ur Squamous Epith Cells Urine Bacteria Urine Mucus Urine Opiates Screen NEGATIVE Urine Methadone Screen NEGATIVE Ur Barbiturates Screen NEGATIVE Ur Phencyclidine Scrn NEGATIVE Ur Amphetamines Screen NEGATIVE U Methamphetamin-MDMA NEGATIVE U Benzodiazepines Scrn NEGATIVE Urine Cocaine Screen NEGATIVE U Cannabinoids Screen NEGATIVE Ur Drug Screen Comment Ethyl Alcohol Clinical Impression(s) from Imaging Studies Brain CT 09/15/18 08:01 IMPRESSION: 1. Chronic involutional changes of the brain. 2. No CT evidence of acute intracranial hemorrhage. 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 5. Bilateral mild mastoid disease. Electronically Signed: Brandy Vizcarra MD at 9:20 EST , Service support , Chest X-Ray 09/15/18 08:20 IMPRESSION: Appropriate positioning of endotracheal and enteric tubes. Electronically Signed: Brandy Vizcarra MD at 9:09 EST , Service support , Assessment/Plan All Active Problems (Last Reviewed 09/15/18 @ 10:01 by Donnie Perkins MD) Acute respiratory failure (Acute) Lactic acidosis (Acute) Acute on chronic renal failure (Acute) Status epilepticus (Acute) This is an 82 years old female patient presented to the emergency room from assisted because of status epilepticus, found to have lactic acidosis which is attributed to continuous seizure, found to have acute kidney injury on top of stage III chronic kidney disease as well as acute cystitis, was intubated for airway protection. #1 status epilepticus: Without prior history of seizure disorder. Reportedly, patient was seizing for about 30-40 minutes. She received IV Versed by the squad. She was started on IV Keppra in the ER. CT scan brain showed no acute findings. Initially, she was unresponsive, absent corneal reflex and no motor movements. At this time, she started to wake, spontaneous eye opening, flexor response to pain. She is on mechanical ventilation. Blood pressure, heart rate are stable. She is afebrile. Plan: Admit to ICU, critical care monitoring, complete bedrest, insert Benitez catheter, IV fluids, keep on n.p.o., vent management per protocol, continue IV propofol for sedation, critical care consult, IV Keppra twice daily, neurology consult, EEG, IV Pepcid twice daily, IV antiemetics, aspiration precautions, repeat CBC and BMP tomorrow morning. #2 acute respiratory failure: Patient was intubated for airway protection. ABG revealed pH 7.33, PCO2 46 and PO2 of 93. Plan for vent management per protocol, suction, wound care, critical care consult, continue sedation with IV propofol. #3 lactic acidosis: This is likely because of status epilepticus. Patient does have acute cystitis with obvious pyuria although urinalysis was negative for bacteria. Plan: Urine culture, blood culture, start empiric IV Zosyn. #4 acute cystitis: Urinalysis reviewed. It has more than 100 WBCs but no bacteria. Plan as above, urine culture, IV Zosyn. #4 acute kidney injury on top of stage III chronic kidney disease: Baseline creatinine has been around 1.2-1.4 mg/dL. Since September 06, 2018, creatinine has been worsening, it was up to 5.48 around 2 weeks ago. Since then, but has been improving and it is down to 2.48 today but still above baseline range. Plan: IV fluids, input output chart, repeat BMP tomorrow morning. #6 recent history of left colonic perforation: Status post exploratory laparotomy, left colon resection and colostomy. Postoperative course complicated by wound dehiscence and infection, status post treatment with antibiotics and wound VAC insertion. Surgery was done on July 27, 2018. Abdominal examination is benign. Colostomy bag in place, no stool in it. Wound VAC is inserted to the midline surgical scar/wound. No significant erythema or swelling around the surgical incision/wound. Apparently, patient completed antibiotics. Plan: Wound care nurse consult. #7 chronic anemia: It is normocytic anemia secondary to anemia of chronic disease. Baseline hemoglobin has been around 8-9 g/dL. Admission hemoglobin is 9.7 g/dL, stable. No evidence of active bleeding. Plan to monitor CBC, transfuse if hemoglobin less than 8 g/dL. #8 type 2 diabetes mellitus: Keep on n.p.o., IV fluids, Accu-Cheks every 6 hours, insulin sliding scale every 6 hours. #9 hypothyroidism: Hold levothyroxine at this time. #10 hyperlipidemia: She is not on any statins. 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 No acute CHF. #12 COPD: Intubated, on mechanical ventilation. #13 CODE STATUS: DNR CCA. Patient was intubated for airway protection. I discussed the CODE STATUS with the patient's daughter who is the power of commercial real estate attorney and she confirmed that the patient is DNR CCA. This note was generated with [employer] dictation software. It may contain incorrect words, spelling, and punctuation that were not noted in checking the note before signing. Code Visit Inpatient E&M: 73725 Init Hosp L3
--- NOTE | 2018-09-15 10:55 | HP.PCM_ITS ---
Problem List (1) Acute respiratory failure Status: Acute (2) Lactic acidosis Status: Acute (3) Acute on chronic renal failure Status: Acute (4) Status epilepticus Status: Acute (5) Status post colostomy Status: Chronic (6) GERD (gastroesophageal reflux disease) Status: Chronic (7) Wound dehiscence, surgical Status: Chronic (8) Takotsubo cardiomyopathy Status: Chronic (9) Atherosclerotic heart disease of [place] coronary artery without angina pectoris Status: Chronic Qualifiers: [place] vs. transplanted heart: [place] heart Qualified Code(s): I25.10 - Atherosclerotic heart disease of [place] coronary artery without angina pectoris Comment: Mild (10) Hypothyroidism Status: Chronic Qualifiers: Hypothyroidism type: unspecified Qualified Code(s): E03.9 - Hypothyroidism, unspecified (11) COPD (chronic obstructive pulmonary disease) Status: Chronic Qualifiers: Emphysema type: unspecified (12) Hyperlipidemia Status: Chronic Qualifiers: Hyperlipidemia type: unspecified Qualified Code(s): E78.5 - Hyperlipidemia, unspecified (13) Type 2 diabetes mellitus Status: Chronic Qualifiers: History of Present Illness Date of Admission: 09/15/18 Chief Complaint: Unresponsiveness, status epilepticus. The patient is a 82 year old F with past medical history as mentioned above presented to the emergency room from the [facility] because of continuous seizure. At this time, patient is intubated and on mechanical ventilation and she is not able to provide any history. No family members at the bedside. According to the ER physician, this morning around 6:30 AM, patient was seen by her PCP and she was okay. Shortly after, she was noted to have seizure involving her both upper extremities and her face and she was seizing for about 30-40 minutes. She was given IV Versed but patient continued to seize. At later time, patient's daughter was available at the bedside who is the power of assistant signal maintainer. She stated that her mother had single one-time seizure back in August, but never been on antiseizure medications. She had a recent history of left colon perforation complicated by peritonitis for which she underwent exploratory laparotomy, left colon resection and end colostomy on July,. Her postoperative course complicated by surgical abdominal wound infection and dehiscence status post wound VAC insertion. She has a history of type 2 diabetes mellitus which is apparently uncontrolled and she has been on Lantus insulin as well as sliding scale and her hemoglobin A1c was 10 on July,. She has history of coronary artery disease without prior interventions and she has been on aspirin and metoprolol. She has a history of Takotsubo cardiomyopathy which has been improving and she had 2D echocardiogram on Mar, 2018 that showed ejection fraction of 65%. At this time, no evidence of acute CHF. In the emergency department, patient was unresponsi ve. She was afebrile, blood pressure and heart rate are stable. She was intubated and started on mechanical ventilation for airway protection. Her routine blood work was remarkable for leukocytosis, hemoglobin of 9.7 g/dL. Creatinine is 2.48. Lactic acid was 6.3. EKG revealed no acute ischemic changes. Troponin was negative. LFT and lipase were normal. Urinalysis revealed cloudy urine, negative for nitrite, positive for leukocyte esterase and there was more than 100 WBCs consistent with pyuria and there was 0 bacteria seen. Urine drug screen was negative. ABG revealed pH of 7.33, PCO2 of 26 [address] PO[address] of 93. CT scan brain showed no evidence of acute infarction or hemorrhage. She is being admitted for status epilepticus without history of seizure disorder in the past, also admitted for lactic acidosis which is attributed to status epilepticus, also found to have acute on chronic renal failure and acute cystitis. Past Medical History Past Medical History (Chronic Problems): Chronic Problems (Last Reviewed 09/15/18 @ 10:01 by Donnie Perkins MD) Status post colostomy (Chronic) History of left colon perforation (Chronic) GERD (gastroesophageal reflux disease) (Chronic) Dysphagia (Chronic) 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 Non-healing surgical wound (Chronic) Wound dehiscence, surgical (Chronic) Takotsubo cardiomyopathy (Chronic) Nonrheumatic tricuspid (valve) insufficiency (Chronic) Atherosclerotic heart disease of [place] coronary artery without angina pectoris (Chronic) Mild Hypothyroidism (Chronic) COPD (chronic obstructive pulmonary disease) (Chronic) Hyperlipidemia (Chronic) Type 2 diabetes mellitus (Chronic) Medical History: Medical History (Last Reviewed 09/15/18 @ 10:01 by Donnie Perkins MD) Takotsubo cardiomyopathy (Chronic) I51.81 Nonrheumatic tricuspid (valve) insufficiency (Chronic) I36.1 Atherosclerotic heart disease of [place] coronary artery without angina pectoris (Chronic) I25.10 Mild Hypothyroidism (Chronic) E03.9 COPD (chronic obstructive pulmonary disease) (Chronic) J44.9 Hyperlipidemia (Chronic) E78.5 Type 2 diabetes mellitus (Chronic) E11.9 Anemia D64.9 CVA (cerebral vascular accident) I63.9 Depression F32.9 Osteoarthritis M19.90 History of hysterectomy Z90.710 Allergies codeine Allergy (Severe, Verified 09/15/18 07:48) HEART ATTACK levofloxacin [From Levaquin] Allergy (Severe, Verified 09/15/18 07:48) Anaphylaxis Sulfa (Sulfonamide Antibiotics) Allergy (Unknown, Verified 09/15/18 07:48) Unknown adhesive tape Allergy (Verified 09/15/18 07:48) Other citalopram Allergy (Verified 09/15/18 07:48) Unknown Latex, Natural Rubber Allergy (Verified 09/15/18 07:48) Rash Penicillins Allergy (Verified 09/15/18 07:48) Rash acetaminophen [From Vicodin] Adverse Reaction (Verified 09/15/18 07:48) Chest tightness hydrocodone bitartrate [From Vicodin] Adverse Reaction (Verified 09/15/18 07:48) Chest tightness Home Medications: Ambulatory Orders Medication Instructions Recorded Amiodarone HCl [Cordarone] 200 mg PO DAILY 09/15/18 Argin/Glut/Cahmb/Collag/Mv-Min 1 each PO BID 09/15/18 [Harsha Packet] Aspirin [Aspirin, Baby] 81 mg PO DAILY@0800 09/15/18 Atorvastatin Calcium [Lipitor] 20 mg PO QHS 09/15/18 Cholecalciferol (Vitamin D3) 1,000 unit PO DAILY 09/15/18 [Vitamin D3] Cyanocobalamin [Vitamin B12] 500 mcg PO DAILY@0800 09/15/18 Insulin Aspart [Novolog Flexpen See Protocol SC UD 09/15/18 (BK)] Insulin Glargine,Hum.rec.anlog 15 unit SQ BID 09/15/18 [Lantus Solostar] Levothyroxine [Synthroid] 25 mcg PO DAILY 09/15/18 Megestrol Acetate 400 mg PO DAILY 09/15/18 Metoprolol Tartrate [Lopressor 25 mg PO BID 09/15/18 (Beta Jose)] Mirtazapine [Remeron] 15 mg PO QHS 09/15/18 Nut.tx.gluc Intol,Lf,Soy/Fiber 120 ml PO 4X/DAY 09/15/18 [Boost Glucose Control Liquid] Pantoprazole Sodium [Protonix] 40 mg PO BID 09/15/18 Sennosides [Senna] 8.6 mg PO BID 09/15/18 Surgical History: Surgical History (Last Reviewed 09/15/18 @ 10:01 by Donnie Perkins MD) History of arthroplasty of right hip Z96.641 History of back surgery Z98.890 Lumbar Disc History of left hip replacement Z96.642 History of total bilateral knee replacement Z96.653 History of tonsillectomy Z90.89 Surgical History: hysterectomy, total hip arthroplasty, - - Fractured femur, bilateral knee surgeries and bilateral hip surgeries Psychiatric History: No pertinent psych hx STATION INSPECTOR History: No pertinent STATION INSPECTOR history [facility]: [facility] Smoking Status: Never smoker Alcohol: None Drugs: None - *Family History Maternal Family History: Family History (Last Reviewed 09/15/18 @ 10:01 by Donnie Perkins MD) Mother Diabetes Brother Atrial fibrillation Brother Diabetes Sister Diabetes History Items: Diabetes Paternal Family History: Family History (Last Reviewed 09/15/18 @ 10:01 by Donnie Perkins MD) Mother Diabetes Brother Atrial fibrillation Brother Diabetes Sister Diabetes History Items: Diabetes, Heart Disease Review of Systems Constitutional: Reports: - - Unobtainable, patient is intubated. Eyes: Reports: - - Unobtainable, patient is intubated. HEENT: Reports: - - Unobtainable, patient is intubated. Cardiovascular: Reports: - - Unobtainable, patient is intubated. Respiratory: Reports: - - Unobtainable, patient is intubated. Gastrointestinal: Reports: - - Unobtainable, patient is intubated. Genitourinary: Reports: - - Unobtainable, patient is intubated. Musculoskeletal: Reports: - - Unobtainable, patient is intubated. Skin: Reports: - - Unobtainable, patient is intubated. Neurological: Reports: - - Unobtainable, patient is intubated. Endocrine: Reports: - - Unobtainable, patient is intubated. VTE Information - Inpt Only VTE Present on Admission: No VTE Mechan Device Prophylaxis: SCD's VTE Pharm Prophylaxis ordered?: Yes Patient Problems: Active and Suspected Problems (Last Reviewed 09/15/18 @ 10:01 by Donnie Perkins MD) Acute respiratory failure (Acute) Lactic acidosis (Acute) Acute on chronic renal failure (Acute) Status epilepticus (Acute) - Physical Exam General: - - Patient is intubated, spontaneous eye opening, flexor response to pain. HEENT: Atraumatic, PERRLA, EOMI Oral: Moist Mucosa, No Gingival or Mucosal Lesions/ Ulcerations Neck: Supple, No JVD, Negative Carotid Bruits, Trachea Midline, Thyroid Normal Size and Texture Lungs: Clear to auscultation, No wheeze, No rales, Diminished, Rhonchi Cardiovascular: Regular rate, Regular Rhythm, Normal S1, Normal S2, PMI Normal Abdomen: Bowel Sounds Present, Soft, Non Tender, Non-Distended, No Hepato- splenomegaly, - - Colostomy bag in place. Wound VAC on the midline surgical wound. Extremities: No clubbing, No cyanosis, Edema - Trace edema. Skin: No rashes, Ulcer/ Wound, Incision Lymphatic: No Cervical, Supraclavicular, or Inguinal Adenopathy Neurological: - - Unable to assess. At this time, patient started to wake up, spontaneous eye opening and flexor response to pain. Psych/Mental Status: - - Unable to assess. Vital Signs Temp Pulse Resp BP Pulse Ox 99.7 F H 75 17 151/82 H 100 09/15/18 09:45 09/15/18 10:00 09/15/18 10:00 09/15/18 10:00 09/15/18 10:00 Oxygen Delivery Method Mechanical Ventilator Weight: 182 lb 12.211 oz Body Mass Index (BMI) 31.4 Intake and Output for Last 24 Hours 09/13/18 09/14/18 09/15/18 23:59 23:59 23:59 Output Total 220 / 220 Balance -220 / -220 Laboratory Tests Past 24 Hrs 09/15/18 09/15/18 09/15/18 08:00 08:00 08:00 WBC 13.7 H RBC 3.03 L Hgb 9.7 L Hct 30.1 L MCV 99.3 H MCH 32.0 MCHC 32.2 RDW 17.7 H RDW Differential 62.2 H Plt Count 337 MPV 9.3 Immature Gran % (Auto) 0.600 Neut % (Auto) 72.1 H Lymph % (Auto) 15.0 L Gooding % (Auto) 6.2 Eos % (Auto) 5.7 H Baso % (Auto) 0.4 Absolute Neuts (auto) 9.9 H Absolute Lymphs (auto) 2.05 Total Counted Not Reportable PT 16.8 H INR 1.4 APTT 28.1 Specimen Type Sample Site pH Bicarbonate Actual POC Total CO2 Base Excess O2 Saturation O2 % ABG pCO2 ABG pO2 Cory Test Respiration Rate O2 Delivery Device Vent Mode Tidal Volume POC PEEP Blood Gas Notified Whom Blood Gas Notified Time Sodium 142 Potassium 4.8 Chloride 111 H Carbon Dioxide 15.0 L Anion Gap 16 H BUN 37 H Creatinine 2.48 H Estim Creat Clear Calc 15.36 Est GFR (MDRD) Af Amer 24 L Est GFR (MDRD) Non-Af 20 L BUN/Creatinine Ratio 14.9 Glucose 202 H Lactic Acid Calcium 8.5 Total Bilirubin 0.30 AST 30 ALT 19 Alkaline Phosphatase 110 Troponin I < 0.015 Total Protein 6.6 Albumin 2.1 L Globulin 4.5 H Albumin/Globulin Ratio 0.5 L Lipase 96 Urine Color Urine Clarity Urine pH Ur Specific [place] Urine Protein Urine Glucose (UA) Urine Ketones Urine Occult Blood Urine Nitrite Urine Bilirubin Urine Urobilinogen Ur Leukocyte Esterase Urine RBC Urine WBC Ur Squamous Epith Cells Urine Bacteria Urine Mucus Urine Opiates Screen Urine Methadone Screen Ur Barbiturates Screen Ur Phencyclidine Scrn Ur Amphetamines Screen U Methamphetamin-MDMA U Benzodiazepines Scrn Urine Cocaine Screen U Cannabinoids Screen Ur Drug Screen Comment Ethyl Alcohol 09/15/18 09/15/18 09/15/18 08:00 08:00 08:05 WBC RBC Hgb Hct MCV MCH MCHC RDW RDW Differential Plt Count MPV Immature Gran % (Auto) Neut % (Auto) Lymph % (Auto) Good[place] % (Auto) Eos % (Auto) Baso % (Auto) Absolute Neuts (auto) Absolute Lymphs (auto) Total Counted PT INR APTT Specimen Type Sample Site pH Bicarbonate Actual POC Total CO2 Base Excess O2 Saturation O2 % ABG pCO2 ABG pO2 Cory Test Respiration Rate O2 Delivery Device Vent Mode Tidal Volume POC PEEP Blood Gas Notified Whom Blood Gas Notified Time Sodium Potassium Chloride Carbon Dioxide Anion Gap BUN Creatinine Estim Creat Clear Calc Est GFR (MDRD) Af Amer Est GFR (MDRD) Non-Af BUN/Creatinine Ratio Glucose Lactic Acid 6.3 H* Calcium Total Bilirubin AST ALT Alkaline Phosphatase Troponin I Total Protein Albumin Globulin Albumin/Globulin Ratio Lipase Urine Color Yellow Urine Clarity Sl. Cloudy Urine pH 5.0 Ur Specific [place] 1.015 Urine Protein 30 H Urine Glucose (UA) Normal Urine Ketones Negative Urine Occult Blood 50 H Urine Nitrite Negative Urine Bilirubin Negative Urine Urobilinogen Normal Ur Leukocyte Esterase 500 H Urine RBC 0 SEEN Urine WBC >100 SEEN Ur Squamous Epith Cells 0 SEEN Urine Bacteria 0 SEEN Urine Mucus 0 SEEN Urine Opiates Screen Urine Methadone Screen Ur Barbiturates Screen Ur Phencyclidine Scrn Ur Amphetamines Screen U Methamphetamin-MDMA U Benzodiazepines Scrn Urine Cocaine Screen U Cannabinoids Screen Ur Drug Screen Comment Ethyl Alcohol < 3.0 09/15/18 09/15/18 08:05 08:32 WBC RBC Hgb Hct MCV MCH MCHC RDW RDW Differential Plt Count MPV Immature Gran % (Auto) Neut % (Auto) Lymph % (Auto) Good[place] % (Auto) Eos % (Auto) Baso % (Auto) Absolute Neuts (auto) Absolute Lymphs (auto) Total Counted PT INR APTT Specimen Type ART Sample Site L Radial pH 7.33 L Bicarbonate Actual 14.1 L POC Total CO2 15 Base Excess -12 L O2 Saturation 97 O2 % 40 ABG pCO2 26.7 L ABG pO2 93 Cory Test POS Respiration Rate 12 O2 Delivery Device Vent Vent Mode A-C Tidal Volume 450 POC PEEP 5 Blood Gas Notified Whom ED Blood Gas Notified Time 831 Sodium Potassium Chloride Carbon Dioxide Anion Gap BUN Creatinine Estim Creat Clear Calc Est GFR (MDRD) Af Amer Est GFR (MDRD) Non-Af BUN/Creatinine Ratio Glucose Lactic Acid Calcium Total Bilirubin AST ALT Alkaline Phosphatase Troponin I Total Protein Albumin Globulin Albumin/Globulin Ratio Lipase Urine Color Urine Clarity Urine pH Ur Specific Edroy Urine Protein Urine Glucose (UA) Urine Ketones Urine Occult Blood Urine Nitrite Urine Bilirubin Urine Urobilinogen Ur Leukocyte Esterase Urine RBC Urine WBC Ur Squamous Epith Cells Urine Bacteria Urine Mucus Urine Opiates Screen NEGATIVE Urine Methadone Screen NEGATIVE Ur Barbiturates Screen NEGATIVE Ur Phencyclidine Scrn NEGATIVE Ur Amphetamines Screen NEGATIVE U Methamphetamin-MDMA NEGATIVE U Benzodiazepines Scrn NEGATIVE Urine Cocaine Screen NEGATIVE U Cannabinoids Screen NEGATIVE Ur Drug Screen Comment Ethyl Alcohol Clinical Impression(s) from Imaging Studies Brain CT 09/15/18 08:01 IMPRESSION: 1. Chronic involutional changes of the brain. 2. No CT evidence of acute intracranial hemorrhage. 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 5. Bilateral mild mastoid disease. Electronically Signed: Brandy Vizcarra MD at 9:20 EST , Service support , Chest X-Ray 09/15/18 08:20 IMPRESSION: Appropriate positioning of endotracheal and enteric tubes. Electronically Signed: Brandy Vizcarra MD at 9:09 EST , Service support , Assessment/Plan All Active Problems (Last Reviewed 09/15/18 @ 10:01 by Donnei Perkins MD) Acute respiratory failure (Acute) Lactic acidosis (Acute) Acute on chronic renal failure (Acute) Status epilepticus (Acute) This is an 82 years old female patient presented to the emergency room from [facility] because of status epilepticus, found to have lactic acidosis which is attributed to continuous seizure, found to have acute kidney injury on top of stage III chronic kidney disease as well as acute cystitis, was intubated for airway protection. #1 status epilepticus: Without prior history of seizure disorder. Reportedly, patient was seizing for about 30-40 minutes. She received IV Versed by the squad. She was started on IV Keppra in the ER. CT scan brain showed no acute findings. Initially, she was unresponsive, absent corneal reflex and no motor movements. At this time, she started to wake, spontaneous eye opening, flexor response to pain. She is on mechanical ventilation. Blood pressure, heart rate are stable. She is afebrile. Plan: Admit to ICU, critical care monitoring, complete bedrest, insert Benitez catheter, IV fluids, keep on n.p.o., vent management per protocol, continue IV propofol for sedation, critical care consult, IV Keppra twice daily, neurology consult, EEG, IV Pepcid twice daily, IV antiemetics, aspiration precautions, repeat CBC and BMP tomorrow morning. #2 acute respiratory failure: Patient was intubated for airway protection. ABG revealed pH 7.33, PCO2 46 and PO2 of 93. Plan for vent management per protocol, suction, wound care, critical care consult, continue sedation with IV propofol. #3 lactic acidosis: This is likely because of status epilepticus. Patient does have acute cystitis with obvious pyuria although urinalysis was negative for bacteria. Plan: Urine culture, blood culture, start empiric IV Zosyn. #4 acute cystitis: Urinalysis reviewed. It has more than 100 WBCs but no bacteria. Plan as above, urine culture, IV Zosyn. #4 acute kidney injury on top of stage III chronic kidney disease: Baseline creatinine has been around 1.2-1.4 mg/dL. Since September 06, 2018, creatinine has been worsening, it was up to 5.48 around 2 weeks ago. Since then, but has been improving and it is down to 2.48 today but still above baseline range. Plan: IV fluids, input output chart, repeat BMP tomorrow morning. #6 recent history of left colonic perforation: Status post exploratory laparotomy, left colon resection and colostomy. Postoperative course complicated by wound dehiscence and infection, status post treatment with antibiotics and wound VAC insertion. Surgery was done on July 27, 2018. Abdominal examination is benign. Colostomy bag in place, no stool in it. Wound VAC is inserted to the midline surgical scar/wound. No significant erythema or swelling around the surgical incision/wound. Apparently, patient completed antibiotics. Plan: Wound care nurse consult. #7 chronic anemia: It is normocytic anemia secondary to anemia of chronic disease. Baseline hemoglobin has been around 8-9 g/dL. Admission hemoglobin is 9.7 g/dL, stable. No evidence of active bleeding. Plan to monitor CBC, transfuse if hemoglobin less than 8 g/dL. #8 type 2 diabetes mellitus: Keep on n.p.o., IV fluids, Accu-Cheks every 6 hours, insulin sliding scale every 6 hours. #9 hypothyroidism: Hold levothyroxine at this time. #10 hyperlipidemia: She is not on any statins. 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 No acute CHF. #12 COPD: Intubated, on mechanical ventilation. #13 CODE STATUS: DNR CCA. Patient was intubated for airway protection. I discussed the CODE STATUS with the patient's daughter who is the power of assistant signal maintainer and she confirmed that the patient is DNR CCA. This note was generated with [employer] dictation software. It may contain incorrect words, spelling, and punctuation that were not noted in checking the note before signing. Code Visit Inpatient E&M: 38714 Init Hosp L3
[2018-09-15] MEDS: Chlorhexidine 15 ML PO ×2 (11:00→21:46)
[2018-09-15] MEDS: fentaNYL drip 100 ML 5 MCG IV (11:08)
--- NOTE | 2018-09-15 12:04 | CASEMGMT ---
Addendum entered by Flora 09/15/18 13:18: SW spoke w/daughter Arabella in room, support offered. SW confirmed w/daughter plan will be for pt to return to [facility]. SW will continue to follow and remains available for support to family. DAVE Kulkarni, TRAINS SERVICE CONDUCTOR Original Note: Pt is here from [facility]. PHILLIP called Stella at [facility], confirmed pt is still in the assisted skilled. PHILLIP faxed updates to [facility]. Family not in room at present, SW will follow up w/family. DAVE Kulkarni, TRAINS SERVICE CONDUCTOR
[2018-09-15 12:19] LABS: Reflex Lactate? Y
[2018-09-15 12:30] LABS: Bedside Glucose 162 mg/dL (70-110)
[2018-09-15] MEDS: Insulin Lispro 100 UNIT/ML INSULN.PEN SC (12:31)
[2018-09-15 13:11] LABS: Lactic Acid 1.5 mmol/L (0.4-2.0)
--- NOTE | 2018-09-15 13:11 | CASEMGMT ---
POA form in E-chart. SW printed and placed in paper chart. DAVE Kulkarni, BUFFER OPERATOR
--- NOTE | 2018-09-15 13:32 | PCM.CON.CC ---
Problem List (1) Acute respiratory failure Status: Acute (2) Lactic acidosis Status: Acute (3) Acute on chronic renal failure Status: Acute (4) Status epilepticus Status: Acute (5) Status post colostomy Status: Chronic (6) History of left colon perforation Status: Chronic (7) GERD (gastroesophageal reflux disease) Status: Chronic (8) Dysphagia Status: Chronic (9) Nonhealing nonsurgical wound with fat layer exposed Status: Chronic Comment: Abdominal. (10) Takotsubo cardiomyopathy Status: Chronic (11) Nonrheumatic tricuspid (valve) insufficiency Status: Chronic (12) Atherosclerotic heart disease of [place] coronary artery without angina pectoris Status: Chronic Qualifiers: [place] vs. transplanted heart: [place] heart Qualified Code(s): I25.10 - Atherosclerotic heart disease of [place] coronary artery without angina pectoris Comment: Mild (13) Hypothyroidism Status: Chronic Qualifiers: Hypothyroidism type: unspecified Qualified Code(s): E03.9 - Hypothyroidism, unspecified (14) COPD (chronic obstructive pulmonary disease) Status: Chronic Qualifiers: Emphysema type: unspecified (15) Hyperlipidemia Status: Chronic Qualifiers: Hyperlipidemia type: unspecified Qualified Code(s): E78.5 - Hyperlipidemia, unspecified (16) Type 2 diabetes mellitus Status: Chronic Qualifiers: Reason for Consult Date of Consultation: 09/15/18 History of Present Illness: The patient is a 82 year old F with past medical history listed below, who presented to [facility] on 09/15/2018 after being found unresponsive. Patient was reportedly of her usual health at 630 this morning, but shortly thereafter started to have seizure activity. Patient reportedly was intermittently seizing initially, but then became constant. EMS was called. Patient was given Versed and required bag valve respirations. Total time of seizure activity was estimated at 30-40 minutes. Patient did have half normal saline running through a left PICC line, but no other medications were infusing at that time. In the emergency room, patient was noted to be in the 70s on room air with improvement with bagged respirations. Patient was noted to have agonal respirations. Patient did have a leukocytosis of 13.7, elevated glucose at 202 and a lactate of 6.3. Patient did have pyuria without bacteriuria. Patient was noted to be a DNR Comfort Care arrest, but family at the bedside had stated they would be okay with intubation. Patient was intubated without paralytics and chest x-ray showed no obvious infiltrates. Patient did undergo a left partial colectomy with colostomy secondary to a perforated descending colon. Patient has had a recent ultrasound of her kidneys showing no hydronephrosis. Patient reportedly has no history of seizure disorders previously, but did have a previous left-sided stroke with right-sided facial deficits. On arrival to the intensive care unit, patient was not noted to be seizing. Patient was not following commands. No family was at the bedside. Patient did have good ventilator synchrony on low-dose propofol drip. Patient was hemodynamically stable and saturating well with mechanical ventilation. Past Medical History Past Medical History (Chronic Problems): Chronic Problems (Last Reviewed 09/15/18 @ 10:01 by Donnie Perkins MD) Status post colostomy (Chronic) History of left colon perforation (Chronic) GERD (gastroesophageal reflux disease) (Chronic) Dysphagia (Chronic) 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 Non-healing surgical wound (Chronic) Wound dehiscence, surgical (Chronic) Takotsubo cardiomyopathy (Chronic) Nonrheumatic tricuspid (valve) insufficiency (Chronic) Atherosclerotic heart disease of [place] coronary artery without angina pectoris (Chronic) Mild Hypothyroidism (Chronic) COPD (chronic obstructive pulmonary disease) (Chronic) Hyperlipidemia (Chronic) Type 2 diabetes mellitus (Chronic) Medical History: Medical History (Last Reviewed 09/15/18 @ 10:01 by Donnie Perkins MD) Takotsubo cardiomyopathy (Chronic) I51.81 Nonrheumatic tricuspid (valve) insufficiency (Chronic) I36.1 Atherosclerotic heart disease of [place] coronary artery without angina pectoris (Chronic) I25.10 Mild Hypothyroidism (Chronic) E03.9 COPD (chronic obstructive pulmonary disease) (Chronic) J44.9 Hyperlipidemia (Chronic) E78.5 Type 2 diabetes mellitus (Chronic) E11.9 Anemia D64.9 CVA (cerebral vascular accident) I63.9 Depression F32.9 Osteoarthritis M19.90 History of hysterectomy Z90.710 Allergies codeine Allergy (Severe, Verified 09/15/18 07:48) HEART ATTACK levofloxacin [From Levaquin] Allergy (Severe, Verified 09/15/18 07:48) Anaphylaxis Sulfa (Sulfonamide Antibiotics) Allergy (Unknown, Verified 09/15/18 07:48) Unknown adhesive tape Allergy (Verified 09/15/18 07:48) Other citalopram Allergy (Verified 09/15/18 07:48) Unknown Latex, Natural Rubber Allergy (Verified 09/15/18 07:48) Rash Penicillins Allergy (Verified 09/15/18 07:48) Rash acetaminophen [From Vicodin] Adverse Reaction (Verified 09/15/18 07:48) Chest tightness hydrocodone bitartrate [From Vicodin] Adverse Reaction (Verified 09/15/18 07:48) Chest tightness Home Medications: Ambulatory Orders Medication Instructions Recorded Albuterol Aerosols [Ventolin 2.5 mg INHALATION Q2H PRN PRN 09/15/18 Aerosols] Amiodarone HCl [Cordarone] 200 mg PO DAILY 09/15/18 Argin/Glut/Cahmb/Collag/Mv-Min 1 each PO BID 09/15/18 [Harsha Packet] Aspirin [Aspirin, Baby] 81 mg PO DAILY@0800 09/15/18 Chamosyn Ointment 1 applicatio TOPICAL BID 09/15/18 Cholecalciferol (Vitamin D3) 1,000 unit PO DAILY 09/15/18 [Vitamin D3] Cyanocobalamin [Vitamin B12] 500 mcg PO DAILY@0800 09/15/18 Dimethicone/Zinc Oxide [[place] 1 applicatio TP BID 09/15/18 Protect Cream] Insulin Aspart [Novolog Flexpen units SC UD 09/15/18 ([facility])] Insulin Glargine,Hum.rec.anlog 15 unit SQ BID 09/15/18 [Lantus Solostar] Levothyroxine [Synthroid] 25 mcg PO DAILY 09/15/18 Magnesium Hydroxide [Milk Of 30 ml PO DAILY PRN PRN 09/15/18 Magnesia] Megestrol Acetate 400 mg PO DAILY 09/15/18 Metoprolol Tartrate [Lopressor 25 mg PO DAILY 09/15/18 (Beta Jose)] Miconazole Nitrate [Micro-Guard] 2 % TP BID 09/15/18 Mirtazapine [Remeron] 15 mg PO QHS 09/15/18 Nut.tx.gluc Intol,Lf,Soy/Fiber 120 ml PO BID 09/15/18 [Boost Glucose Control Liquid] Ondansetron HCl [Zofran] 4 mg PO Q4H PRN 09/15/18 Pantoprazole Sodium [Protonix] 40 mg PO BID 09/15/18 Sennosides [Senna] 8.6 mg PO BID PRN 09/15/18 Surgical History: Surgical History (Last Reviewed 09/15/18 @ 10:01 by Donnie Perkins MD) History of arthroplasty of right hip Z96.641 History of back surgery Z98.890 Lumbar Disc History of left hip replacement Z96.642 History of total bilateral knee replacement Z96.653 History of tonsillectomy Z90.89 Surgical History: hysterectomy, total hip arthroplasty, - - Fractured femur, bilateral knee surgeries and bilateral hip surgeries Psychiatric History: No pertinent psych hx 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 Lives: Snf Smoking Status: Never smoker Alcohol: None Drugs: None - *Family History Maternal Family History: Family History (Last Reviewed 09/15/18 @ 10:01 by Donnie Perkins MD) Mother Diabetes Brother Atrial fibrillation Brother Diabetes Sister Diabetes History Items: Diabetes Paternal Family History: Family History (Last Reviewed 09/15/18 @ 10:01 by Donnie Perkins MD) Mother Diabetes Brother Atrial fibrillation Brother Diabetes Sister Diabetes History Items: Diabetes, Heart Disease Review of Systems Unable to obtain accurate/complete ROS d/t: Intubated and unresponsive Patient Problems: Active and Suspected Problems (Last Reviewed 09/15/18 @ 10:01 by Donnie Perkins MD) Acute respiratory failure (Acute) Lactic acidosis (Acute) Acute on chronic renal failure (Acute) Status epilepticus (Acute) Subjective: Personally discussed case with hospitalist and neurology. Objective: All imaging was personally reviewed. Old CVA appreciated on CT scan. Chest x-ray showed endotracheal tube in appropriate position. - Physical Exam General: - - Intubated and sedated. RASS -4. Opens eyes to loud stimulus and suctioning. HEENT: Atraumatic, PERRLA, EOMI, Normocephalic, - - No scleral icterus or injection noted. Oral: Moist Mucosa, No Gingival or Mucosal Lesions/ Ulcerations Neck: Supple, No JVD, No Nodes, Trachea Midline Lungs: No rhonchi, No wheeze, No rales, Diminished, - - Mechanical breath sounds. Symmetric expansion. Cardiovascular: Regular rate, Regular Rhythm, Normal S1, Normal S2, No murmurs, No rub noted, No Gallop Abdomen: Bowel Sounds Present, Soft, Non Tender, Non-Distended, - - Colostomy bag in place. Wound VAC noted on midline surgical incision Extremities: No clubbing, No cyanosis, Edema - Trace Skin: Ulcer/ Wound, - - Incision noted midline. Musculoskeletal: No Tenderness to Palpation of Joints or Extremities Lymphatic: No Cervical, Supraclavicular, or Inguinal Adenopathy Neurological: - - Spontaneously opens eyes to loud noise, but falls asleep quickly. Flexor response to pain. No facial droop was appreciated. Positive cough and gag reflexes. Psych/Mental Status: - - Flat affect, but not following commands. Vital Signs Temp Pulse Resp BP Pulse Ox 37.6 C H 73 18 147/117 H 100 09/15/18 10:45 09/15/18 11:30 09/15/18 11:30 09/15/18 11:30 09/15/18 11:30 Oxygen Delivery Method Mechanical Ventilator Weight: 78.7 kg Body Mass Index (BMI) 29.6 Intake and Output for Last 24 Hours 09/13/18 09/14/18 09/15/18 23:59 23:59 23:59 Intake Total 520 / 520 Output Total 420 / 420 Balance 100 / 100 Laboratory Tests Past 24 Hrs 09/15/18 09/15/18 09/15/18 08:00 08:00 08:00 WBC 13.7 H RBC 3.03 L Hgb 9.7 L Hct 30.1 L MCV 99.3 H MCH 32.0 MCHC 32.2 RDW 17.7 H RDW Differential 62.2 H Plt Count 337 MPV 9.3 Immature Gran % (Auto) 0.600 Neut % (Auto) 72.1 H Lymph % (Auto) 15.0 L [place] % (Auto) 6.2 Eos % (Auto) 5.7 H Baso % (Auto) 0.4 Absolute Neuts (auto) 9.9 H Absolute Lymphs (auto) 2.05 Total Counted Not Reportable PT 16.8 H INR 1.4 APTT 28.1 Specimen Type Sample Site pH Bicarbonate Actual POC Total CO2 Base Excess O2 Saturation O2 % ABG pCO2 ABG pO2 Cory Test Respiration Rate O2 Delivery Device Vent Mode Tidal Volume POC PEEP Blood Gas Notified Whom Blood Gas Notified Time Sodium 142 Potassium 4.8 Chloride 111 H Carbon Dioxide 15.0 L Anion Gap 16 H BUN 37 H Creatinine 2.48 H Estim Creat Clear Calc 15.36 Est GFR (MDRD) Af Amer 24 L Est GFR (MDRD) Non-Af 20 L BUN/Creatinine Ratio 14.9 Glucose 202 H Lactic Acid Calcium 8.5 Total Bilirubin 0.30 AST 30 ALT 19 Alkaline Phosphatase 110 Troponin I < 0.015 Total Protein 6.6 Albumin 2.1 L Globulin 4.5 H Albumin/Globulin Ratio 0.5 L Lipase 96 Urine Color Urine Clarity Urine pH Ur Specific [place] Urine Protein Urine Glucose (UA) Urine Ketones Urine Occult Blood Urine Nitrite Urine Bilirubin Urine Urobilinogen Ur Leukocyte Esterase Urine RBC Urine WBC Ur Squamous Epith Cells Urine Bacteria Urine Mucus Urine Opiates Screen Urine Methadone Screen Ur Barbiturates Screen Ur Phencyclidine Scrn Ur Amphetamines Screen U Methamphetamin-MDMA U Benzodiazepines Scrn Urine Cocaine Screen U Cannabinoids Screen Ur Drug Screen Comment Ethyl Alcohol 09/15/18 09/15/18 09/15/18 08:00 08:00 08:05 WBC RBC Hgb Hct MCV MCH MCHC RDW RDW Differential Plt Count MPV Immature Gran % (Auto) Neut % (Auto) Lymph % (Auto) [place] % (Auto) Eos % (Auto) Baso % (Auto) Absolute Neuts (auto) Absolute Lymphs (auto) Total Counted PT INR APTT Specimen Type Sample Site pH Bicarbonate Actual POC Total CO2 Base Excess O2 Saturation O2 % ABG pCO2 ABG pO2 Cory Test Respiration Rate O2 Delivery Device Vent Mode Tidal Volume POC PEEP Blood Gas Notified Whom Blood Gas Notified Time Sodium Potassium Chloride Carbon Dioxide Anion Gap BUN Creatinine Estim Creat Clear Calc Est GFR (MDRD) Af Amer Est GFR (MDRD) Non-Af BUN/Creatinine Ratio Glucose Lactic Acid 6.3 H* Calcium Total Bilirubin AST ALT Alkaline Phosphatase Troponin I Total Protein Albumin Globulin Albumin/Globulin Ratio Lipase Urine Color Yellow Urine Clarity Sl. Cloudy Urine pH 5.0 Ur Specific [place] 1.015 Urine Protein 30 H Urine Glucose (UA) Normal Urine Ketones Negative Urine Occult Blood 50 H Urine Nitrite Negative Urine Bilirubin Negative Urine Urobilinogen Normal Ur Leukocyte Esterase 500 H Urine RBC 0 SEEN Urine WBC >100 SEEN Ur Squamous Epith Cells 0 SEEN Urine Bacteria 0 SEEN Urine Mucus 0 SEEN Urine Opiates Screen Urine Methadone Screen Ur Barbiturates Screen Ur Phencyclidine Scrn Ur Amphetamines Screen U Methamphetamin-MDMA U Benzodiazepines Scrn Urine Cocaine Screen U Cannabinoids Screen Ur Drug Screen Comment Ethyl Alcohol < 3.0 09/15/18 09/15/18 09/15/18 08:05 08:32 12:30 WBC RBC Hgb Hct MCV MCH MCHC RDW RDW Differential Plt Count MPV Immature Gran % (Auto) Neut % (Auto) Lymph % (Auto) [place] % (Auto) Eos % (Auto) Baso % (Auto) Absolute Neuts (auto) Absolute Lymphs (auto) Total Counted PT INR APTT Specimen Type ART Sample Site L Radial pH 7.33 L Bicarbonate Actual 14.1 L POC Total CO2 15 Base Excess -12 L O2 Saturation 97 O2 % 40 ABG pCO2 26.7 L ABG pO2 93 Cory Test POS Respiration Rate 12 O2 Delivery Device Vent Vent Mode A-C Tidal Volume 450 POC PEEP 5 Blood Gas Notified Whom ED Blood Gas Notified Time 831 Sodium Potassium Chloride Carbon Dioxide Anion Gap BUN Creatinine Estim Creat Clear Calc Est GFR (MDRD) Af Amer Est GFR (MDRD) Non-Af BUN/Creatinine Ratio Glucose Lactic Acid 1.5 Calcium Total Bilirubin AST ALT Alkaline Phosphatase Troponin I Total Protein Albumin Globulin Albumin/Globulin Ratio Lipase Urine Color Urine Clarity Urine pH Ur Specific [place] Urine Protein Urine Glucose (UA) Urine Ketones Urine Occult Blood Urine Nitrite Urine Bilirubin Urine Urobilinogen Ur Leukocyte Esterase Urine RBC Urine WBC Ur Squamous Epith Cells Urine Bacteria Urine Mucus Urine Opiates Screen NEGATIVE Urine Methadone Screen NEGATIVE Ur Barbiturates Screen NEGATIVE Ur Phencyclidine Scrn NEGATIVE Ur Amphetamines Screen NEGATIVE U Methamphetamin-MDMA NEGATIVE U Benzodiazepines Scrn NEGATIVE Urine Cocaine Screen NEGATIVE U Cannabinoids Screen NEGATIVE Ur Drug Screen Comment Ethyl Alcohol POC Glucose 09/15/18 12:19 POC Glucose 162 H Clinical Impression(s) from Imaging Studies Brain CT 09/15/18 08:01 IMPRESSION: 1. Chronic involutional changes of the brain. 2. No CT evidence of acute intracranial hemorrhage. 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 5. Bilateral mild mastoid disease. Electronically Signed: Brandy Vizcarra MD at 9:20 EST , Service support , Chest X-Ray 09/15/18 08:20 IMPRESSION: Appropriate positioning of endotracheal and enteric tubes. Electronically Signed: Brandy Vizcarra MD at 9:09 EST , Service support , Assessment/Plan Active and Suspected Problems (Last Reviewed 09/15/18 @ 10:01 by Donnie Perkins MD) Acute respiratory failure (Acute) Lactic acidosis (Acute) Acute on chronic renal failure (Acute) Status epilepticus (Acute) RECOMMENDATIONS: 1. Continue Keppra and propofol. 2. Continue neurologic exams 3. No further lactates required 4. Spontaneous breathing and awakening trials per protocol 5. Slow volume resuscitation 6. Wound nurse consultation for midline incision 7. Accu-Cheks with sliding scale insulin. Possible basal insulin once tube feeds initiated IMPRESSIONS: 1. Status epilepticus Patient with 20-30 minutes of seizure activity. EEG is currently pending. Did discuss with neurology and there is concern for seizure focus at old CVA site. We will continue with neurologic examinations. No signs of meningismus or meningitis at this time. Significant lactic acidosis on presentation has normalized. This would be consistent with patient's status epilepticus. 2. Acute hypoxic respiratory failure She noted to be 70s on room air on presentation. Patient is doing well on mechanical ventilation. ABG after intubation shows appropriate oxygenation and ventilation. Patient does not have a very good mental status at this time. We will continue with spontaneous breathing and awakening trials per protocol. 3. Acute cystitis/DEMETRA on CKD 3 Patient currently on empiric Zosyn therapy. Await culture data. Patient does have a leukocytosis, but no fevers have been reported. Patient's creatinine was significantly elevated approximately 2 weeks ago. This has been improving prior to discharge. However, patient's current creatinine is at 2.48. Unclear if this is a new baseline or patient needs to continue to previous baseline of 1.2-1.4 mg/dL. 4. Recent left colonic perforation Patient's postoperative course was complicated by wound dehiscence and infection. Patient has been treated with antibiotics in the past and has a wound VAC currently in place. Surgery was completed on July 27, 2018. Abdominal exam is relatively benign with a colostomy bag in good position. No signs superficially of infection. 5. Hypothyroidism/hyperlipidemia/COPD/chronic anemia/advanced age Complicates care, management, recovery and prognosis. Patient will continue with Accu-Cheks and sliding scale insulin. May need to initiate basal insulin with tube feeds if patient remains intubated. TIME: 50 minutes of critical care time spent addressing patient's status epilepticus, respiratory failure, acute kidney injury, review of all data and collaboration with care team (11 AM to 1:45 PM) Code Visit 9xxxx: [id number] Critical care first hour
--- NOTE | 2018-09-15 13:35 | NURSING ---
wound/stoma photo: abdomen
--- NOTE | 2018-09-15 13:37 | CON.PCM_ITS ---
Problem List (1) Acute respiratory failure Status: Acute (2) Lactic acidosis Status: Acute (3) Acute on chronic renal failure Status: Acute (4) Status epilepticus Status: Acute (5) Status post colostomy Status: Chronic (6) History of left colon perforation Status: Chronic (7) GERD (gastroesophageal reflux disease) Status: Chronic (8) Dysphagia Status: Chronic (9) Nonhealing nonsurgical wound with fat layer exposed Status: Chronic Comment: Abdominal. (10) Takotsubo cardiomyopathy Status: Chronic (11) Nonrheumatic tricuspid (valve) insufficiency Status: Chronic (12) Atherosclerotic heart disease of [place] coronary artery without angina pectoris Status: Chronic Qualifiers: [place] vs. transplanted heart: [place] heart Qualified Code(s): I25.10 - Atherosclerotic heart disease of [place] coronary artery without angina pectoris Comment: Mild (13) Hypothyroidism Status: Chronic Qualifiers: Hypothyroidism type: unspecified Qualified Code(s): E03.9 - Hypothyroidism, unspecified (14) COPD (chronic obstructive pulmonary disease) Status: Chronic Qualifiers: Emphysema type: unspecified (15) Hyperlipidemia Status: Chronic Qualifiers: Hyperlipidemia type: unspecified Qualified Code(s): E78.5 - Hyperlipidemia, unspecified (16) Type 2 diabetes mellitus Status: Chronic Qualifiers: Reason for Consult Date of Consultation: 09/15/18 History of Present Illness: The patient is a 82 year old F with past medical history listed below, who presented to [facility] on 09/15/2018 after being found unresponsive. Patient was reportedly of her usual health at 630 this morning, but shortly thereafter started to have seizure activity. Patient reportedly was intermittently seizing initially, but then became constant. EMS was called. Patient was given Versed and required bag valve respirations. Total time of seizure activity was estimated at 30-40 minutes. Patient did have half normal saline running through a left PICC line, but no other medications were infusing at that time. In the emergency room, patient was noted to be in the 70s on room air with improvement with bagged respirations. Patient was noted to have agonal respirations. Patient did have a leukocytosis of 13.7, elevated glucose at 202 and a lactate of 6.3. Patient did have pyuria without bacteriuria. Patient was noted to be a DNR Comfort Care arrest, but family at the bedside had stated they would be okay with intubation. Patient was intubated without paralytics and chest x-ray showed no obvious infiltrates. Patient did undergo a left partial colectomy with colostomy secondary to a perforated descending colon. Patient has had a recent ultrasound of her kidneys showing no hydronephrosis. Patient reportedly has no history of seizure disorders previously, but did have a previous left-sided stroke with right-sided facial deficits. On arrival to the intensive care unit, patient was not noted to be seizing. Patient was not following commands. No family was at the bedside. Patient did have good ventilator synchrony on low-dose propofol drip. Patient was hemodynamically stable and saturating well with mechanical ventilation. Past Medical History Past Medical History (Chronic Problems): Chronic Problems (Last Reviewed 09/15/18 @ 10:01 by Donnie Perkins MD) Status post colostomy (Chronic) History of left colon perforation (Chronic) GERD (gastroesophageal reflux disease) (Chronic) Dysphagia (Chronic) 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 Non-healing surgical wound (Chronic) Wound dehiscence, surgical (Chronic) Takotsubo cardiomyopathy (Chronic) Nonrheumatic tricuspid (valve) insufficiency (Chronic) Atherosclerotic heart disease of [place] coronary artery without angina pectoris (Chronic) Mild Hypothyroidism (Chronic) COPD (chronic obstructive pulmonary disease) (Chronic) Hyperlipidemia (Chronic) Type 2 diabetes mellitus (Chronic) Medical History: Medical History (Last Reviewed 09/15/18 @ 10:01 by Donnie Perkins MD) Takotsubo cardiomyopathy (Chronic) I51.81 Nonrheumatic tricuspid (valve) insufficiency (Chronic) I36.1 Atherosclerotic heart disease of [place] coronary artery without angina pectoris (Chronic) I25.10 Mild Hypothyroidism (Chronic) E03.9 COPD (chronic obstructive pulmonary disease) (Chronic) J44.9 Hyperlipidemia (Chronic) E78.5 Type 2 diabetes mellitus (Chronic) E11.9 Anemia D64.9 CVA (cerebral vascular accident) I63.9 Depression F32.9 Osteoarthritis M19.90 History of hysterectomy Z90.710 Allergies codeine Allergy (Severe, Verified 09/15/18 07:48) HEART ATTACK levofloxacin [From Levaquin] Allergy (Severe, Verified 09/15/18 07:48) Anaphylaxis Sulfa (Sulfonamide Antibiotics) Allergy (Unknown, Verified 09/15/18 07:48) Unknown adhesive tape Allergy (Verified 09/15/18 07:48) Other citalopram Allergy (Verified 09/15/18 07:48) Unknown Latex, Natural Rubber Allergy (Verified 09/15/18 07:48) Rash Penicillins Allergy (Verified 09/15/18 07:48) Rash acetaminophen [From Vicodin] Adverse Reaction (Verified 09/15/18 07:48) Chest tightness hydrocodone bitartrate [From Vicodin] Adverse Reaction (Verified 09/15/18 07:48) Chest tightness Home Medications: Ambulatory Orders Medication Instructions Recorded Albuterol Aerosols [Ventolin 2.5 mg INHALATION Q2H PRN PRN 09/15/18 Aerosols] Amiodarone HCl [Cordarone] 200 mg PO DAILY 09/15/18 Argin/Glut/Cahmb/Collag/Mv-Min 1 each PO BID 09/15/18 [Harsha Packet] Aspirin [Aspirin, Baby] 81 mg PO DAILY@0800 09/15/18 Chamosyn Ointment 1 applicatio TOPICAL BID 09/15/18 Cholecalciferol (Vitamin D3) 1,000 unit PO DAILY 09/15/18 [Vitamin D3] Cyanocobalamin [Vitamin B12] 500 mcg PO DAILY@0800 09/15/18 Dimethicone/Zinc Oxide [[place] 1 applicatio TP BID 09/15/18 Protect Cream] Insulin Aspart [Novolog Flexpen units SC UD 09/15/18 ([facility])] Insulin Glargine,Hum.rec.anlog 15 unit SQ BID 09/15/18 [Lantus Solostar] Levothyroxine [Synthroid] 25 mcg PO DAILY 09/15/18 Magnesium Hydroxide [Milk Of 30 ml PO DAILY PRN PRN 09/15/18 Magnesia] Megestrol Acetate 400 mg PO DAILY 09/15/18 Metoprolol Tartrate [Lopressor 25 mg PO DAILY 09/15/18 (Beta Jose)] Miconazole Nitrate [Micro-Guard] 2 % TP BID 09/15/18 Mirtazapine [Remeron] 15 mg PO QHS 09/15/18 Nut.tx.gluc Intol,Lf,Soy/Fiber 120 ml PO BID 09/15/18 [Boost Glucose Control Liquid] Ondansetron HCl [Zofran] 4 mg PO Q4H PRN 09/15/18 Pantoprazole Sodium [Protonix] 40 mg PO BID 09/15/18 Sennosides [Senna] 8.6 mg PO BID PRN 09/15/18 Surgical History: Surgical History (Last Reviewed 09/15/18 @ 10:01 by Donnie Perkins MD) History of arthroplasty of right hip Z96.641 History of back surgery Z98.890 Lumbar Disc History of left hip replacement Z96.642 History of total bilateral knee replacement Z96.653 History of tonsillectomy Z90.89 Surgical History: hysterectomy, total hip arthroplasty, - - Fractured femur, bilateral knee surgeries and bilateral hip surgeries Psychiatric History: No pertinent psych hx TSO History: No pertinent TSO history Lives: Senior Living Smoking Status: Never smoker Alcohol: None Drugs: None - *Family History Maternal Family History: Family History (Last Reviewed 09/15/18 @ 10:01 by Donnie Perkins MD) Mother Diabetes Brother Atrial fibrillation Brother Diabetes Sister Diabetes History Items: Diabetes Paternal Family History: Family History (Last Reviewed 09/15/18 @ 10:01 by Donnie Perkins MD) Mother Diabetes Brother Atrial fibrillation Brother Diabetes Sister Diabetes History Items: Diabetes, Heart Disease Review of Systems Unable to obtain accurate/complete ROS d/t: Intubated and unresponsive Patient Problems: Active and Suspected Problems (Last Reviewed 09/15/18 @ 10:01 by Donnie Perkins MD) Acute respiratory failure (Acute) Lactic acidosis (Acute) Acute on chronic renal failure (Acute) Status epilepticus (Acute) Subjective: Personally discussed case with hospitalist and neurology. Objective: All imaging was personally reviewed. Old CVA appreciated on CT scan. Chest x- ray showed endotracheal tube in appropriate position. - Physical Exam General: - - Intubated and sedated. RASS -4. Opens eyes to loud stimulus and suctioning. HEENT: Atraumatic, PERRLA, EOMI, Normocephalic, - - No scleral icterus or injection noted. Oral: Moist Mucosa, No Gingival or Mucosal Lesions/ Ulcerations Neck: Supple, No JVD, No Nodes, Trachea Midline Lungs: No rhonchi, No wheeze, No rales, Diminished, - - Mechanical breath sounds. Symmetric expansion. Cardiovascular: Regular rate, Regular Rhythm, Normal S1, Normal S2, No murmurs, No rub noted, No Gallop Abdomen: Bowel Sounds Present, Soft, Non Tender, Non-Distended, - - Colostomy bag in place. Wound VAC noted on midline surgical incision Extremities: No clubbing, No cyanosis, Edema - Trace Skin: Ulcer/ Wound, - - Incision noted midline. Musculoskeletal: No Tenderness to Palpation of Joints or Extremities Lymphatic: No Cervical, Supraclavicular, or Inguinal Adenopathy Neurological: - - Spontaneously opens eyes to loud noise, but falls asleep quickly. Flexor response to pain. No facial droop was appreciated. Positive cough and gag reflexes. Psych/Mental Status: - - Flat affect, but not following commands. Vital Signs Temp Pulse Resp BP Pulse Ox 37.6 C H 73 18 147/117 H 100 09/15/18 10:45 09/15/18 11:30 09/15/18 11:30 09/15/18 11:30 09/15/18 11:30 Oxygen Delivery Method Mechanical Ventilator Weight: 78.7 kg Body Mass Index (BMI) 29.6 Intake and Output for Last 24 Hours 09/13/18 09/14/18 09/15/18 23:59 23:59 23:59 Intake Total 520 / 520 Output Total 420 / 420 Balance 100 / 100 Laboratory Tests Past 24 Hrs 09/15/18 09/15/18 09/15/18 08:00 08:00 08:00 WBC 13.7 H RBC 3.03 L Hgb 9.7 L Hct 30.1 L MCV 99.3 H MCH 32.0 MCHC 32.2 RDW 17.7 H RDW Differential 62.2 H Plt Count 337 MPV 9.3 Immature Gran % (Auto) 0.600 Neut % (Auto) 72.1 H Lymph % (Auto) 15.0 L [place] % (Auto) 6.2 Eos % (Auto) 5.7 H Baso % (Auto) 0.4 Absolute Neuts (auto) 9.9 H Absolute Lymphs (auto) 2.05 Total Counted Not Reportable PT 16.8 H INR 1.4 APTT 28.1 Specimen Type Sample Site pH Bicarbonate Actual POC Total CO2 Base Excess O2 Saturation O2 % ABG pCO2 ABG pO2 Cory Test Respiration Rate O2 Delivery Device Vent Mode Tidal Volume POC PEEP Blood Gas Notified Whom Blood Gas Notified Time Sodium 142 Potassium 4.8 Chloride 111 H Carbon Dioxide 15.0 L Anion Gap 16 H BUN 37 H Creatinine 2.48 H Estim Creat Clear Calc 15.36 Est GFR (MDRD) Af Amer 24 L Est GFR (MDRD) Non-Af 20 L BUN/Creatinine Ratio 14.9 Glucose 202 H Lactic Acid Calcium 8.5 Total Bilirubin 0.30 AST 30 ALT 19 Alkaline Phosphatase 110 Troponin I < 0.015 Total Protein 6.6 Albumin 2.1 L Globulin 4.5 H Albumin/Globulin Ratio 0.5 L Lipase 96 Urine Color Urine Clarity Urine pH Ur Specific [place] Urine Protein Urine Glucose (UA) Urine Ketones Urine Occult Blood Urine Nitrite Urine Bilirubin Urine Urobilinogen Ur Leukocyte Esterase Urine RBC Urine WBC Ur Squamous Epith Cells Urine Bacteria Urine Mucus Urine Opiates Screen Urine Methadone Screen Ur Barbiturates Screen Ur Phencyclidine Scrn Ur Amphetamines Screen U Methamphetamin-MDMA U Benzodiazepines Scrn Urine Cocaine Screen U Cannabinoids Screen Ur Drug Screen Comment Ethyl Alcohol 09/15/18 09/15/18 09/15/18 08:00 08:00 08:05 WBC RBC Hgb Hct MCV MCH MCHC RDW RDW Differential Plt Count MPV Immature Gran % (Auto) Neut % (Auto) Lymph % (Auto) [place] % (Auto) Eos % (Auto) Baso % (Auto) Absolute Neuts (auto) Absolute Lymphs (auto) Total Counted PT INR APTT Specimen Type Sample Site pH Bicarbonate Actual POC Total CO2 Base Excess O2 Saturation O2 % ABG pCO2 ABG pO2 Cory Test Respiration Rate O2 Delivery Device Vent Mode Tidal Volume POC PEEP Blood Gas Notified Whom Blood Gas Notified Time Sodium Potassium Chloride Carbon Dioxide Anion Gap BUN Creatinine Estim Creat Clear Calc Est GFR (MDRD) Af Amer Est GFR (MDRD) Non-Af BUN/Creatinine Ratio Glucose Lactic Acid 6.3 H* Calcium Total Bilirubin AST ALT Alkaline Phosphatase Troponin I Total Protein Albumin Globulin Albumin/Globulin Ratio Lipase Urine Color Yellow Urine Clarity Sl. Cloudy Urine pH 5.0 Ur Specific [place] 1.015 Urine Protein 30 H Urine Glucose (UA) Normal Urine Ketones Negative Urine Occult Blood 50 H Urine Nitrite Negative Urine Bilirubin Negative Urine Urobilinogen Normal Ur Leukocyte Esterase 500 H Urine RBC 0 SEEN Urine WBC >100 SEEN Ur Squamous Epith Cells 0 SEEN Urine Bacteria 0 SEEN Urine Mucus 0 SEEN Urine Opiates Screen Urine Methadone Screen Ur Barbiturates Screen Ur Phencyclidine Scrn Ur Amphetamines Screen U Methamphetamin-MDMA U Benzodiazepines Scrn Urine Cocaine Screen U Cannabinoids Screen Ur Drug Screen Comment Ethyl Alcohol < 3.0 09/15/18 09/15/18 09/15/18 08:05 08:32 12:30 WBC RBC Hgb Hct MCV MCH MCHC RDW RDW Differential Plt Count MPV Immature Gran % (Auto) Neut % (Auto) Lymph % (Auto) [place] % (Auto) Eos % (Auto) Baso % (Auto) Absolute Neuts (auto) Absolute Lymphs (auto) Total Counted PT INR APTT Specimen Type ART Sample Site L Radial pH 7.33 L Bicarbonate Actual 14.1 L POC Total CO2 15 Base Excess -12 L O2 Saturation 97 O2 % 40 ABG pCO2 26.7 L ABG pO2 93 Cory Test POS Respiration Rate 12 O2 Delivery Device Vent Vent Mode A-C Tidal Volume 450 POC PEEP 5 Blood Gas Notified Whom ED Blood Gas Notified Time 831 Sodium Potassium Chloride Carbon Dioxide Anion Gap BUN Creatinine Estim Creat Clear Calc Est GFR (MDRD) Af Amer Est GFR (MDRD) Non-Af BUN/Creatinine Ratio Glucose Lactic Acid 1.5 Calcium Total Bilirubin AST ALT Alkaline Phosphatase Troponin I Total Protein Albumin Globulin Albumin/Globulin Ratio Lipase Urine Color Urine Clarity Urine pH Ur Specific [place] Urine Protein Urine Glucose (UA) Urine Ketones Urine Occult Blood Urine Nitrite Urine Bilirubin Urine Urobilinogen Ur Leukocyte Esterase Urine RBC Urine WBC Ur Squamous Epith Cells Urine Bacteria Urine Mucus Urine Opiates Screen NEGATIVE Urine Methadone Screen NEGATIVE Ur Barbiturates Screen NEGATIVE Ur Phencyclidine Scrn NEGATIVE Ur Amphetamines Screen NEGATIVE U Methamphetamin-MDMA NEGATIVE U Benzodiazepines Scrn NEGATIVE Urine Cocaine Screen NEGATIVE U Cannabinoids Screen NEGATIVE Ur Drug Screen Comment Ethyl Alcohol POC Glucose 09/15/18 12:19 POC Glucose 162 H Clinical Impression(s) from Imaging Studies Brain CT 09/15/18 08:01 IMPRESSION: 1. Chronic involutional changes of the brain. 2. No CT evidence of acute intracranial hemorrhage. 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 5. Bilateral mild mastoid disease. Electronically Signed: Brandy Vizcarra MD at 9:20 EST , Service support , Chest X-Ray 09/15/18 08:20 IMPRESSION: Appropriate positioning of endotracheal and enteric tubes. Electronically Signed: Brandy Vizcarra MD at 9:09 EST , Service support , Assessment/Plan Active and Suspected Problems (Last Reviewed 09/15/18 @ 10:01 by Donnie Perkins MD) Acute respiratory failure (Acute) Lactic acidosis (Acute) Acute on chronic renal failure (Acute) Status epilepticus (Acute) RECOMMENDATIONS: 1. Continue Keppra and propofol. 2. Continue neurologic exams 3. No further lactates required 4. Spontaneous breathing and awakening trials per protocol 5. Slow volume resuscitation 6. Wound nurse consultation for midline incision 7. Accu-Cheks with sliding scale insulin. Possible basal insulin once tube feeds initiated IMPRESSIONS: 1. Status epilepticus Patient with 20-30 minutes of seizure activity. EEG is currently pending. Did discuss with neurology and there is concern for seizure focus at old CVA site. We will continue with neurologic examinations. No signs of meningismus or meningitis at this time. Significant lactic acidosis on presentation has normalized. This would be consistent with patient's status epilepticus. 2. Acute hypoxic respiratory failure She noted to be 70s on room air on presentation. Patient is doing well on mechanical ventilation. ABG after intubation shows appropriate oxygenation and ventilation. Patient does not have a very good mental status at this time. We will continue with spontaneous breathing and awakening trials per protocol. 3. Acute cystitis/DEMETRA on CKD 3 Patient currently on empiric Zosyn therapy. Await culture data. Patient does have a leukocytosis, but no fevers have been reported. Patient's creatinine was significantly elevated approximately 2 weeks ago. This has been improving prior to discharge. However, patient's current creatinine is at 2.48. Unclear if this is a new baseline or patient needs to continue to previous baseline of 1.2-1.4 mg/dL. 4. Recent left colonic perforation Patient's postoperative course was complicated by wound dehiscence and infection. Patient has been treated with antibiotics in the past and has a wound VAC currently in place. Surgery was completed on July 27, 2018. Abdominal exam is relatively benign with a colostomy bag in good position. No signs superficially of infection. 5. Hypothyroidism/hyperlipidemia/COPD/chronic anemia/advanced age Complicates care, management, recovery and prognosis. Patient will continue with Accu-Cheks and sliding scale insulin. May need to initiate basal insulin with tube feeds if patient remains intubated. TIME: 50 minutes of critical care time spent addressing patient's status epilepticus, respiratory failure, acute kidney injury, review of all data and collaboration with care team (11 AM to 1:45 PM) Code Visit 9xxxx: [id number] Critical care first hour
[2018-09-15] MEDS: Heparin Injection (Vial) 5,000 UNIT/ML VIAL 5000 UNIT SC ×2 (14:09→21:47)
--- NOTE | 2018-09-15 15:59 | CHAPLAIN ---
Type of Pastoral Visit _x__ Initial Visit ___ Follow-up Visit ___ On-call Visit ___ General Patient Visit ___ Spiritual Assessment ___ Family Conference ___ Bereavement ___ Rapid Response ___ Code Blue ___ Other (describe below) Pastoral Care Referral From ___ Patient ___ Family ___ Nurse ___ Physician ___ E Commerce Analyst ___ Density Control Puncher _x__ Other (describe below) Sacrament/Intervention ___ Active listening ___ Anointing ___ Synagogue ___ Bereavement ___ Communion ___ Marifer exploration ___ ___ Life review _x__ Prayer ___ Reconciliation ___ Sacrament of Sick ___ Supportive presence ___ Wedding ___ Other (describe below) Pastoral Comments this patient has been seen by this channel director in previous admissions; pt has also welcomed spiritual care and support; pt is now on a vent and cannot speak; but a card was left for family members to know that prayer was given and channel director is available for needed support
[2018-09-15] MEDS: 0.9% Normal Saline 1,000 ML 100 ML IV (17:38)
[2018-09-15 17:51] LABS: Bedside Glucose 82 mg/dL (70-110)
[2018-09-15] MEDS: levETIRAcetam IV 100 ML 400 MG IV (21:45)
[2018-09-15] MEDS: Dextrose 50%-Water 25 GM/50 ML DISP.SYRIN IV (23:35)
[2018-09-15] MEDS: 0.9% NaCl Midline IV Flush IV (23:35)
[2018-09-15 23:36] LABS: Bedside Glucose 51 mg/dL (70-110)
[2018-09-16] VITALS (31 sets, daily range): BP systolic 99–154; BP diastolic 54–102; PULSE 65–83; RESP 11–23; TEMP 37.1–37.7; O2SAT 97–100
[2018-09-16 00:05] LABS: Bedside Glucose 78 mg/dL (70-110)
[2018-09-16] MEDS: Dextrose 50%-Water 25 GM/50 ML DISP.SYRIN IV (03:07)
[2018-09-16] MEDS: 0.9% NaCl Peripheral Flush Adult/Peds IV ×3 (03:09→21:38)
[2018-09-16 03:16] LABS: Bedside Glucose 66 mg/dL (70-110)
[2018-09-16] MEDS: CHLORHEXIDINE GLUC 2% CLOTH 1 EACH TOWELETTE TOPICAL (03:21)
[2018-09-16 03:35] LABS: Bedside Glucose 98 mg/dL (70-110)
[2018-09-16 04:25] LABS: Basophil# 0.04 X10^3/uL; Basophil% 0.5 % (0-1); Eosinophil# 0.48 X10^3/uL; Eosinophils% 5.7 % (0-5); Hematocrit 25.6 % (37-47); Hemoglobin 8.2 g/dl (12.0-15.0); Lymphocyte % 11.9 % (19-41); Mean Corpuscular Hgb 31.3 pg (27.0-32.0); Mean Corpuscular Volume 97.7 fL (81-99); Mean Platelet Vol. 9.3 fl (6.2-12.0); Monocyte# 0.83 X10^3/uL; Monocyte% 9.9 % (0-10); Neutrophil # 6.01 X10^3/uL (2.7-7.7); Neutrophil % 71.8 % (47-70); Platelet Count 197 K/mm3 (150-450); RBC Distribution Width CV 18.2 % (11.6-14.6); RBC Distribution Width SD 64.6 fl (35.1-43.9); Red Blood Count 2.62 M/mm3 (4.2-5.4); White Blood Count 8.4 K/mm3 (4.4-11.0)
[2018-09-16 04:26] LABS: POSITIVE COUNT NO; POSITIVE DIFFERENTIAL NO; POSITIVE MORPHOLOGY NO
[2018-09-16 04:33] LABS: Anion Gap 10 (5-15); BUN 30 mg/dL (7-18); BUN/Creat Ratio 14.7 RATIO (10-20); Calcium,Total 7.8 mg/dL (8.5-10.1); Chloride 116 mmol/L (98-107); Creatinine, Serum 2.04 mg/dL (0.55-1.02); EST Glomerular Filtration Rate 25 mL/min (>60); Est Glom Filt Rate - Afr Amer 30 mL/min (>60); Estimated Creatinine Clearance 18.68 ml/min; Glucose 112 mg/dL (74-106); Sodium Level 146 mmol/L (136-145)
[2018-09-16] MEDS: Heparin Injection (Vial) 5,000 UNIT/ML VIAL 5000 UNIT SC ×2 (05:12→21:36)
[2018-09-16 05:21] LABS: Bedside Glucose 99 mg/dL (70-110)
[2018-09-16 06:55] LABS: Allen Test NEG; Base Excess -7 mmol/L (-2 to +2); Blood Gas Specimen Type ART; FI02 30; Mode CPAP PS; O2 Delivery Device Vent; PEEP 5; PO2 100 mmHG (75-100); PS 5; SITE R Radial; SO2 98 % (95-99); Time Given 648; Total Carbon Dioxide 19 mmol/L; pCO2 28.9 mmHg (35-45)
--- NOTE | 2018-09-16 07:10 | PCM.PN.INT ---
Subjective: Patient did well overnight. No fever or seizure activity has been reported. Patient was transitioned to D5W overnight. Urine output has remained stable. Patient was able to be placed on a spontaneous breathing trial and tolerated 1 hour. Patient will be extubated shortly. General: Alert, Cooperative, No apparent distress, - - Follows commands HEENT: Atraumatic, PERRLA, EOMI, Normocephalic, - - No scleral icterus or injection noted. Oral: Moist Mucosa, No Gingival or Mucosal Lesions/ Ulcerations Neck: Supple, No JVD, No Nodes, Trachea Midline Lungs: No rhonchi, No wheeze, No rales, Diminished, - - Symmetric expansion. No dullness to percussion. Spontaneous tidal volumes of approximately 450 on SBT Cardiovascular: Normal S1, Normal S2, No murmurs, Irregular Rate, No rub noted, No Gallop Abdomen: Bowel Sounds Present, Soft, Non Tender, Non-Distended, Obese, - - Unchanged incision and colostomy Extremities: No clubbing, No cyanosis, Capillary Refill Less than 3 Seconds, Edema - Trace Skin: - - Grossly unchanged compared to previous Musculoskeletal: No Tenderness to Palpation of Joints or Extremities Lymphatic: No Cervical, Supraclavicular, or Inguinal Adenopathy Neurological: - - Grossly unchanged compared to previous. Some decreased movement of the right noted. Psych/Mental Status: Appropriate, Flat Affect Vital Signs Temp Pulse Resp BP Pulse Ox 37.4 C H 68 11 L 133/60 H 100 09/16/18 06:00 09/16/18 06:00 09/16/18 06:00 09/16/18 06:00 09/16/18 06:00 Oxygen Delivery Method Mechanical Ventilator Weight: 79 kg Body Mass Index (BMI) 29.6 Intake and Output for Last 24 Hours 09/14/18 09/15/18 09/16/18 23:59 23:59 23:59 Intake Total 1899.2 / 1899.2 677.2 / 677.2 Output Total 1070 / 1070 350 / 350 Balance 829.2 / 829.2 327.2 / 327.2 Labs (Last 48 Hours) 09/15/18 09/15/18 09/15/18 08:00 08:00 08:00 WBC 13.7 H RBC 3.03 L Hgb 9.7 L Hct 30.1 L MCV 99.3 H MCH 32.0 MCHC 32.2 RDW 17.7 H RDW Differential 62.2 H Plt Count 337 MPV 9.3 Immature Gran % (Auto) 0.600 Neut % (Auto) 72.1 H Lymph % (Auto) 15.0 L [place] % (Auto) 6.2 Eos % (Auto) 5.7 H Baso % (Auto) 0.4 Absolute Neuts (auto) 9.9 H Absolute Lymphs (auto) 2.05 Total Counted Not Reportable PT 16.8 H INR 1.4 APTT 28.1 Specimen Type Sample Site pH Bicarbonate Actual POC Total CO2 Base Excess O2 Saturation O2 % ABG pCO2 ABG pO2 Cory Test Respiration Rate O2 Delivery Device Vent Mode Tidal Volume POC PEEP POC Pressure Suppt Blood Gas Notified Whom Blood Gas Notified Time Sodium 142 Potassium 4.8 Chloride 111 H Carbon Dioxide 15.0 L Anion Gap 16 H BUN 37 H Creatinine 2.48 H Estim Creat Clear Calc 15.36 Est GFR (MDRD) Af Amer 24 L Est GFR (MDRD) Non-Af 20 L BUN/Creatinine Ratio 14.9 Glucose 202 H Lactic Acid Calcium 8.5 Total Bilirubin 0.30 AST 30 ALT 19 Alkaline Phosphatase 110 Troponin I < 0.015 Total Protein 6.6 Albumin 2.1 L Globulin 4.5 H Albumin/Globulin Ratio 0.5 L Lipase 96 Urine Color Urine Clarity Urine pH Ur Specific [place] Urine Protein Urine Glucose (UA) Urine Ketones Urine Occult Blood Urine Nitrite Urine Bilirubin Urine Urobilinogen Ur Leukocyte Esterase Urine RBC Urine WBC Ur Squamous Epith Cells Urine Bacteria Urine Mucus Urine Opiates Screen Urine Methadone Screen Ur Barbiturates Screen Ur Phencyclidine Scrn Ur Amphetamines Screen U Methamphetamin-MDMA U Benzodiazepines Scrn Urine Cocaine Screen U Cannabinoids Screen Ur Drug Screen Comment Ethyl Alcohol POC Glucose 09/15/18 09/15/18 09/15/18 08:00 08:00 08:05 WBC RBC Hgb Hct MCV MCH MCHC RDW RDW Differential Plt Count MPV Immature Gran % (Auto) Neut % (Auto) Lymph % (Auto) [place] % (Auto) Eos % (Auto) Baso % (Auto) Absolute Neuts (auto) Absolute Lymphs (auto) Total Counted PT INR APTT Specimen Type Sample Site pH Bicarbonate Actual POC Total CO2 Base Excess O2 Saturation O2 % ABG pCO2 ABG pO2 Cory Test Respiration Rate O2 Delivery Device Vent Mode Tidal Volume POC PEEP POC Pressure Suppt Blood Gas Notified Whom Blood Gas Notified Time Sodium Potassium Chloride Carbon Dioxide Anion Gap BUN Creatinine Estim Creat Clear Calc Est GFR (MDRD) Af Amer Est GFR (MDRD) Non-Af BUN/Creatinine Ratio Glucose Lactic Acid 6.3 H* Calcium Total Bilirubin AST ALT Alkaline Phosphatase Troponin I Total Protein Albumin Globulin Albumin/Globulin Ratio Lipase Urine Color Yellow Urine Clarity Sl. Cloudy Urine pH 5.0 Ur Specific [place] 1.015 Urine Protein 30 H Urine Glucose (UA) Normal Urine Ketones Negative Urine Occult Blood 50 H Urine Nitrite Negative Urine Bilirubin Negative Urine Urobilinogen Normal Ur Leukocyte Esterase 500 H Urine RBC 0 SEEN Urine WBC >100 SEEN Ur Squamous Epith Cells 0 SEEN Urine Bacteria 0 SEEN Urine Mucus 0 SEEN Urine Opiates Screen Urine Methadone Screen Ur Barbiturates Screen Ur Phencyclidine Scrn Ur Amphetamines Screen U Methamphetamin-MDMA U Benzodiazepines Scrn Urine Cocaine Screen U Cannabinoids Screen Ur Drug Screen Comment Ethyl Alcohol < 3.0 POC Glucose 09/15/18 09/15/18 09/15/18 08:05 08:32 12:19 WBC RBC Hgb Hct MCV MCH MCHC RDW RDW Differential Plt Count MPV Immature Gran % (Auto) Neut % (Auto) Lymph % (Auto) [place] % (Auto) Eos % (Auto) Baso % (Auto) Absolute Neuts (auto) Absolute Lymphs (auto) Total Counted PT INR APTT Specimen Type ART Sample Site L Radial pH 7.33 L Bicarbonate Actual 14.1 L POC Total CO2 15 Base Excess -12 L O2 Saturation 97 O2 % 40 ABG pCO2 26.7 L ABG pO2 93 Cory Test POS Respiration Rate 12 O2 Delivery Device Vent Vent Mode A-C Tidal Volume 450 POC PEEP 5 POC Pressure Suppt Blood Gas Notified Whom ED Blood Gas Notified Time 831 Sodium Potassium Chloride Carbon Dioxide Anion Gap BUN Creatinine Estim Creat Clear Calc Est GFR (MDRD) Af Amer Est GFR (MDRD) Non-Af BUN/Creatinine Ratio Glucose Lactic Acid Calcium Total Bilirubin AST ALT Alkaline Phosphatase Troponin I Total Protein Albumin Globulin Albumin/Globulin Ratio Lipase Urine Color Urine Clarity Urine pH Ur Specific [place] Urine Protein Urine Glucose (UA) Urine Ketones Urine Occult Blood Urine Nitrite Urine Bilirubin Urine Urobilinogen Ur Leukocyte Esterase Urine RBC Urine WBC Ur Squamous Epith Cells Urine Bacteria Urine Mucus Urine Opiates Screen NEGATIVE Urine Methadone Screen NEGATIVE Ur Barbiturates Screen NEGATIVE Ur Phencyclidine Scrn NEGATIVE Ur Amphetamines Screen NEGATIVE U Methamphetamin-MDMA NEGATIVE U Benzodiazepines Scrn NEGATIVE Urine Cocaine Screen NEGATIVE U Cannabinoids Screen NEGATIVE Ur Drug Screen Comment Ethyl Alcohol POC Glucose 162 H 09/15/18 09/15/18 09/15/18 12:30 17:45 23:28 WBC RBC Hgb Hct MCV MCH MCHC RDW RDW Differential Plt Count MPV Immature Gran % (Auto) Neut % (Auto) Lymph % (Auto) [place] % (Auto) Eos % (Auto) Baso % (Auto) Absolute Neuts (auto) Absolute Lymphs (auto) Total Counted PT INR APTT Specimen Type Sample Site pH Bicarbonate Actual POC Total CO2 Base Excess O2 Saturation O2 % ABG pCO2 ABG pO2 Cory Test Respiration Rate O2 Delivery Device Vent Mode Tidal Volume POC PEEP POC Pressure Suppt Blood Gas Notified Whom Blood Gas Notified Time Sodium Potassium Chloride Carbon Dioxide Anion Gap BUN Creatinine Estim Creat Clear Calc Est GFR (MDRD) Af Amer Est GFR (MDRD) Non-Af BUN/Creatinine Ratio Glucose Lactic Acid 1.5 Calcium Total Bilirubin AST ALT Alkaline Phosphatase Troponin I Total Protein Albumin Globulin Albumin/Globulin Ratio Lipase Urine Color Urine Clarity Urine pH Ur Specific [place] Urine Protein Urine Glucose (UA) Urine Ketones Urine Occult Blood Urine Nitrite Urine Bilirubin Urine Urobilinogen Ur Leukocyte Esterase Urine RBC Urine WBC Ur Squamous Epith Cells Urine Bacteria Urine Mucus Urine Opiates Screen Urine Methadone Screen Ur Barbiturates Screen Ur Phencyclidine Scrn Ur Amphetamines Screen U Methamphetamin-MDMA U Benzodiazepines Scrn Urine Cocaine Screen U Cannabinoids Screen Ur Drug Screen Comment Ethyl Alcohol POC Glucose 82 51 L 09/15/18 09/16/18 09/16/18 23:59 03:05 03:32 WBC RBC Hgb Hct MCV MCH MCHC RDW RDW Differential Plt Count MPV Immature Gran % (Auto) Neut % (Auto) Lymph % (Auto) [place] % (Auto) Eos % (Auto) Baso % (Auto) Absolute Neuts (auto) Absolute Lymphs (auto) Total Counted PT INR APTT Specimen Type Sample Site pH Bicarbonate Actual POC Total CO2 Base Excess O2 Saturation O2 % ABG pCO2 ABG pO2 Cory Test Respiration Rate O2 Delivery Device Vent Mode Tidal Volume POC PEEP POC Pressure Suppt Blood Gas Notified Whom Blood Gas Notified Time Sodium Potassium Chloride Carbon Dioxide Anion Gap BUN Creatinine Estim Creat Clear Calc Est GFR (MDRD) Af Amer Est GFR (MDRD) Non-Af BUN/Creatinine Ratio Glucose Lactic Acid Calcium Total Bilirubin AST ALT Alkaline Phosphatase Troponin I Total Protein Albumin Globulin Albumin/Globulin Ratio Lipase Urine Color Urine Clarity Urine pH Ur Specific [place] Urine Protein Urine Glucose (UA) Urine Ketones Urine Occult Blood Urine Nitrite Urine Bilirubin Urine Urobilinogen Ur Leukocyte Esterase Urine RBC Urine WBC Ur Squamous Epith Cells Urine Bacteria Urine Mucus Urine Opiates Screen Urine Methadone Screen Ur Barbiturates Screen Ur Phencyclidine Scrn Ur Amphetamines Screen U Methamphetamin-MDMA U Benzodiazepines Scrn Urine Cocaine Screen U Cannabinoids Screen Ur Drug Screen Comment Ethyl Alcohol POC Glucose 78 66 L 98 09/16/18 09/16/18 09/16/18 04:10 04:10 05:08 WBC 8.4 RBC 2.62 L Hgb 8.2 L Hct 25.6 L MCV 97.7 MCH 31.3 MCHC 32.0 RDW 18.2 H RDW Differential 64.6 H Plt Count 197 MPV 9.3 Immature Gran % (Auto) 0.200 Neut % (Auto) 71.8 H Lymph % (Auto) 11.9 L [place] % (Auto) 9.9 Eos % (Auto) 5.7 H Baso % (Auto) 0.5 Absolute Neuts (auto) 6.0 Absolute Lymphs (auto) 1.00 Total Counted Not Reportable PT INR APTT Specimen Type Sample Site pH Bicarbonate Actual POC Total CO2 Base Excess O2 Saturation O2 % ABG pCO2 ABG pO2 Cory Test Respiration Rate O2 Delivery Device Vent Mode Tidal Volume POC PEEP POC Pressure Suppt Blood Gas Notified Whom Blood Gas Notified Time Sodium 146 H Potassium 4.0 Chloride 116 H Carbon Dioxide 20.0 L Anion Gap 10 BUN 30 H Creatinine 2.04 H Estim Creat Clear Calc 18.68 Est GFR (MDRD) Af Amer 30 L Est GFR (MDRD) Non-Af 25 L BUN/Creatinine Ratio 14.7 Glucose 112 H Lactic Acid Calcium 7.8 L Total Bilirubin AST ALT Alkaline Phosphatase Troponin I Total Protein Albumin Globulin Albumin/Globulin Ratio Lipase Urine Color Urine Clarity Urine pH Ur Specific [place] Urine Protein Urine Glucose (UA) Urine Ketones Urine Occult Blood Urine Nitrite Urine Bilirubin Urine Urobilinogen Ur Leukocyte Esterase Urine RBC Urine WBC Ur Squamous Epith Cells Urine Bacteria Urine Mucus Urine Opiates Screen Urine Methadone Screen Ur Barbiturates Screen Ur Phencyclidine Scrn Ur Amphetamines Screen U Methamphetamin-MDMA U Benzodiazepines Scrn Urine Cocaine Screen U Cannabinoids Screen Ur Drug Screen Comment Ethyl Alcohol POC Glucose 99 09/16/18 06:49 WBC RBC Hgb Hct MCV MCH MCHC RDW RDW Differential Plt Count MPV Immature Gran % (Auto) Neut % (Auto) Lymph % (Auto) [place] % (Auto) Eos % (Auto) Baso % (Auto) Absolute Neuts (auto) Absolute Lymphs (auto) Total Counted PT INR APTT Specimen Type ART Sample Site R Radial pH 7.40 Bicarbonate Actual 18.0 L POC Total CO2 19 Base Excess -7 L O2 Saturation 98 O2 % 30 ABG pCO2 28.9 L ABG pO2 100 Cory Test NEG Respiration Rate O2 Delivery Device Vent Vent Mode CPAP PS Tidal Volume POC PEEP 5 POC Pressure Suppt 5 Blood Gas Notified Whom ICU MD Blood Gas Notified Time 648 Sodium Potassium Chloride Carbon Dioxide Anion Gap BUN Creatinine Estim Creat Clear Calc Est GFR (MDRD) Af Amer Est GFR (MDRD) Non-Af BUN/Creatinine Ratio Glucose Lactic Acid Calcium Total Bilirubin AST ALT Alkaline Phosphatase Troponin I Total Protein Albumin Globulin Albumin/Globulin Ratio Lipase Urine Color Urine Clarity Urine pH Ur Specific [place] Urine Protein Urine Glucose (UA) Urine Ketones Urine Occult Blood Urine Nitrite Urine Bilirubin Urine Urobilinogen Ur Leukocyte Esterase Urine RBC Urine WBC Ur Squamous Epith Cells Urine Bacteria Urine Mucus Urine Opiates Screen Urine Methadone Screen Ur Barbiturates Screen Ur Phencyclidine Scrn Ur Amphetamines Screen U Methamphetamin-MDMA U Benzodiazepines Scrn Urine Cocaine Screen U Cannabinoids Screen Ur Drug Screen Comment Ethyl Alcohol POC Glucose Clinical Impression(s) from Imaging Studies Brain CT 09/15/18 08:01 IMPRESSION: 1. Chronic involutional changes of the brain. 2. No CT evidence of acute intracranial hemorrhage. 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 5. Bilateral mild mastoid disease. Electronically Signed: Brandy Vizcarra MD at 9:20 EST , Service support , Chest X-Ray 09/15/18 08:20 IMPRESSION: Appropriate positioning of endotracheal and enteric tubes. Electronically Signed: Brandy Vizcarra MD at 9:09 EST , Service support , Medical Necessity - Tobacco Use Smoking Status: Never smoker Assessment/Plan All Active Problems (Last Reviewed 09/15/18 @ 10:01 by Donnie Perkins MD) Acute respiratory failure (Acute) Lactic acidosis (Acute) Acute on chronic renal failure (Acute) Status epilepticus (Acute) RECOMMENDATIONS: 1. Continue Keppra. 2. Continue neurologic exams 3. Wean oxygen as tolerated 4. Wound nurse consultation for midline incision 5. Accu-Cheks with sliding scale insulin. IMPRESSIONS: 1. Status epilepticus Patient with 20-30 minutes of seizure activity. EEG showed no seizure activity. Neurology is following. Patient's lactic acidosis normalized. Patient appears to be tolerating Keppra well. Patient was on cefepime and this may be leading to accumulation and decreased seizure threshold. This has been changed to Zosyn therapy. 2. Acute hypoxic respiratory failure She noted to be 70s on room air on presentation. Patient is doing well on mechanical ventilation. ABG after intubation shows appropriate oxygenation and ventilation. Patient able to pass spontaneous breathing and awakening trials. To be extubated soon. We will continue to wean oxygen as tolerated 3. Acute cystitis/DEMETRA on CKD 3 Patient currently on empiric Zosyn therapy. Await culture data. Patient does have a leukocytosis, but no fevers have been reported. Patient's creatinine was significantly elevated approximately 2 weeks ago. This has been improving prior to discharge. Patient's current creatinine is improving. Unclear if this is a new baseline or patient needs to continue to previous baseline of 1.2-1.4 mg/dL. 4. Recent left colonic perforation Patient's postoperative course was complicated by wound dehiscence and infection. Patient has been treated with antibiotics in the past and has a wound VAC currently in place. Surgery was completed on July 27, 2018. Abdominal exam is relatively benign with a colostomy bag in good position. No signs superficially of infection. 5. Hypothyroidism/hyperlipidemia/COPD/chronic anemia/advanced age Complicates care, management, recovery and prognosis. Patient will continue with Accu-Cheks and sliding scale insulin. May need to initiate basal insulin with tube feeds if patient remains intubated. TIME: 35 minutes of critical care time spent addressing patient's status epilepticus, respiratory failure, acute kidney injury, review of all data and collaboration with care team (5:50 AM to 6:30 AM) Code Visit [id number]: [id number] Critical care first hour
--- NOTE | 2018-09-16 08:31 | PCM.PROGNOTE ---
Subjective: Chief complaint: Follow-up after admission for status epilepticus, acute hypoxic respiratory failure, acute kidney injury double stage III chronic kidney disease and acute cystitis. Patient seen and examined. No acute events overnight. She was extubated this morning. At this time, she is awake and alert. She was not able to communicate and speak coherently. She just repeating saying yes. She is afebrile, blood pressure and heart rate are stable, pulse ox is 97% on 2 L. - Physical Exam General: Alert, Cooperative, No apparent distress HEENT: Atraumatic, PERRLA, EOMI, Normocephalic Oral: Moist Mucosa, No Gingival or Mucosal Lesions/ Ulcerations Neck: Supple, No JVD, Negative Carotid Bruits, Trachea Midline, Thyroid Normal Size and Texture Lungs: Clear to auscultation, No wheeze, No rales, Diminished, Rhonchi Cardiovascular: Regular rate, Regular Rhythm, Normal S1, Normal S2, No murmurs, PMI Normal Abdomen: Bowel Sounds Present, Soft, Non Tender, Non-Distended, No Hepato-splenomegaly Extremities: No clubbing, No cyanosis, No edema Skin: No rashes, No breakdown Lymphatic: No Cervical, Supraclavicular, or Inguinal Adenopathy Neurological: Cranial nerves II-XII grossly intact, - - Global weakness. Psych/Mental Status: Flat Affect, - - Not following commands. Vital Signs Temp Pulse Resp BP Pulse Ox 99.4 F H 69 20 H 133/60 H 97 09/16/18 06:00 09/16/18 07:32 09/16/18 07:32 09/16/18 06:00 09/16/18 07:32 Oxygen Flow Rate (L/min) 2 Oxygen Delivery Method Nasal Cannula Weight: 174 lb 2.643 oz Body Mass Index (BMI) 29.6 Intake and Output for Last 24 Hours 09/14/18 09/15/18 09/16/18 23:59 23:59 23:59 Intake Total 1899.2 / 1899.2 677.2 / 677.2 Output Total 1070 / 1070 350 / 350 Balance 829.2 / 829.2 327.2 / 327.2 Laboratory Tests Past 24 Hrs 09/15/18 09/15/18 09/15/18 08:00 08:00 08:00 WBC RBC Hgb Hct MCV MCH MCHC RDW RDW Differential Plt Count MPV Immature Gran % (Auto) Neut % (Auto) Lymph % (Auto) [place] % (Auto) Eos % (Auto) Baso % (Auto) Absolute Neuts (auto) Absolute Lymphs (auto) Total Counted PT 16.8 H INR 1.4 APTT 28.1 Specimen Type Sample Site pH Bicarbonate Actual POC Total CO2 Base Excess O2 Saturation O2 % ABG pCO2 ABG pO2 Cory Test Respiration Rate O2 Delivery Device Vent Mode Tidal Volume POC PEEP POC Pressure Suppt Blood Gas Notified Whom Blood Gas Notified Time Sodium 142 Potassium 4.8 Chloride 111 H Carbon Dioxide 15.0 L Anion Gap 16 H BUN 37 H Creatinine 2.48 H Estim Creat Clear Calc 15.36 Est GFR (MDRD) Af Amer 24 L Est GFR (MDRD) Non-Af 20 L BUN/Creatinine Ratio 14.9 Glucose 202 H Lactic Acid Calcium 8.5 Total Bilirubin 0.30 AST 30 ALT 19 Alkaline Phosphatase 110 Troponin I < 0.015 Total Protein 6.6 Albumin 2.1 L Globulin 4.5 H Albumin/Globulin Ratio 0.5 L Lipase 96 Urine Color Urine Clarity Urine pH Ur Specific [place] Urine Protein Urine Glucose (UA) Urine Ketones Urine Occult Blood Urine Nitrite Urine Bilirubin Urine Urobilinogen Ur Leukocyte Esterase Urine RBC Urine WBC Ur Squamous Epith Cells Urine Bacteria Urine Mucus Urine Opiates Screen Urine Methadone Screen Ur Barbiturates Screen Ur Phencyclidine Scrn Ur Amphetamines Screen U Methamphetamin-MDMA U Benzodiazepines Scrn Urine Cocaine Screen U Cannabinoids Screen Ethyl Alcohol < 3.0 09/15/18 09/15/18 09/15/18 08:00 08:05 08:05 WBC RBC Hgb Hct MCV MCH MCHC RDW RDW Differential Plt Count MPV Immature Gran % (Auto) Neut % (Auto) Lymph % (Auto) [place] % (Auto) Eos % (Auto) Baso % (Auto) Absolute Neuts (auto) Absolute Lymphs (auto) Total Counted PT INR APTT Specimen Type Sample Site pH Bicarbonate Actual POC Total CO2 Base Excess O2 Saturation O2 % ABG pCO2 ABG pO2 Cory Test Respiration Rate O2 Delivery Device Vent Mode Tidal Volume POC PEEP POC Pressure Suppt Blood Gas Notified Whom Blood Gas Notified Time Sodium Potassium Chloride Carbon Dioxide Anion Gap BUN Creatinine Estim Creat Clear Calc Est GFR (MDRD) Af Amer Est GFR (MDRD) Non-Af BUN/Creatinine Ratio Glucose Lactic Acid 6.3 H* Calcium Total Bilirubin AST ALT Alkaline Phosphatase Troponin I Total Protein Albumin Globulin Albumin/Globulin Ratio Lipase Urine Color Yellow Urine Clarity Sl. Cloudy Urine pH 5.0 Ur Specific [place] 1.015 Urine Protein 30 H Urine Glucose (UA) Normal Urine Ketones Negative Urine Occult Blood 50 H Urine Nitrite Negative Urine Bilirubin Negative Urine Urobilinogen Normal Ur Leukocyte Esterase 500 H Urine RBC 0 SEEN Urine WBC >100 SEEN Ur Squamous Epith Cells 0 SEEN Urine Bacteria 0 SEEN Urine Mucus 0 SEEN Urine Opiates Screen NEGATIVE Urine Methadone Screen NEGATIVE Ur Barbiturates Screen NEGATIVE Ur Phencyclidine Scrn NEGATIVE Ur Amphetamines Screen NEGATIVE U Methamphetamin-MDMA NEGATIVE U Benzodiazepines Scrn NEGATIVE Urine Cocaine Screen NEGATIVE U Cannabinoids Screen NEGATIVE Ethyl Alcohol 09/15/18 09/15/18 09/16/18 08:32 12:30 04:10 WBC 8.4 RBC 2.62 L Hgb 8.2 L Hct 25.6 L MCV 97.7 MCH 31.3 MCHC 32.0 RDW 18.2 H RDW Differential 64.6 H Plt Count 197 MPV 9.3 Immature Gran % (Auto) 0.200 Neut % (Auto) 71.8 H Lymph % (Auto) 11.9 L [place] % (Auto) 9.9 Eos % (Auto) 5.7 H Baso % (Auto) 0.5 Absolute Neuts (auto) 6.0 Absolute Lymphs (auto) 1.00 Total Counted Not Reportable PT INR APTT Specimen Type ART Sample Site L Radial pH 7.33 L Bicarbonate Actual 14.1 L POC Total CO2 15 Base Excess -12 L O2 Saturation 97 O2 % 40 ABG pCO2 26.7 L ABG pO2 93 Cory Test POS Respiration Rate 12 O2 Delivery Device Vent Vent Mode A-C Tidal Volume 450 POC PEEP 5 POC Pressure Suppt Blood Gas Notified Whom ED Blood Gas Notified Time 831 Sodium Potassium Chloride Carbon Dioxide Anion Gap BUN Creatinine Estim Creat Clear Calc Est GFR (MDRD) Af Amer Est GFR (MDRD) Non-Af BUN/Creatinine Ratio Glucose Lactic Acid 1.5 Calcium Total Bilirubin AST ALT Alkaline Phosphatase Troponin I Total Protein Albumin Globulin Albumin/Globulin Ratio Lipase Urine Color Urine Clarity Urine pH Ur Specific [place] Urine Protein Urine Glucose (UA) Urine Ketones Urine Occult Blood Urine Nitrite Urine Bilirubin Urine Urobilinogen Ur Leukocyte Esterase Urine RBC Urine WBC Ur Squamous Epith Cells Urine Bacteria Urine Mucus Urine Opiates Screen Urine Methadone Screen Ur Barbiturates Screen Ur Phencyclidine Scrn Ur Amphetamines Screen U Methamphetamin-MDMA U Benzodiazepines Scrn Urine Cocaine Screen U Cannabinoids Screen Ethyl Alcohol 09/16/18 09/16/18 04:10 06:49 WBC RBC Hgb Hct MCV MCH MCHC RDW RDW Differential Plt Count MPV Immature Gran % (Auto) Neut % (Auto) Lymph % (Auto) [place] % (Auto) Eos % (Auto) Baso % (Auto) Absolute Neuts (auto) Absolute Lymphs (auto) Total Counted PT INR APTT Specimen Type ART Sample Site R Radial pH 7.40 Bicarbonate Actual 18.0 L POC Total CO2 19 Base Excess -7 L O2 Saturation 98 O2 % 30 ABG pCO2 28.9 L ABG pO2 100 Cory Test NEG Respiration Rate O2 Delivery Device Vent Vent Mode CPAP PS Tidal Volume POC PEEP 5 POC Pressure Suppt 5 Blood Gas Notified Whom ICU MD Blood Gas Notified Time 648 Sodium 146 H Potassium 4.0 Chloride 116 H Carbon Dioxide 20.0 L Anion Gap 10 BUN 30 H Creatinine 2.04 H Estim Creat Clear Calc 18.68 Est GFR (MDRD) Af Amer 30 L Est GFR (MDRD) Non-Af 25 L BUN/Creatinine Ratio 14.7 Glucose 112 H Lactic Acid Calcium 7.8 L Total Bilirubin AST ALT Alkaline Phosphatase Troponin I Total Protein Albumin Globulin Albumin/Globulin Ratio Lipase Urine Color Urine Clarity Urine pH Ur Specific [place] Urine Protein Urine Glucose (UA) Urine Ketones Urine Occult Blood Urine Nitrite Urine Bilirubin Urine Urobilinogen Ur Leukocyte Esterase Urine RBC Urine WBC Ur Squamous Epith Cells Urine Bacteria Urine Mucus Urine Opiates Screen Urine Methadone Screen Ur Barbiturates Screen Ur Phencyclidine Scrn Ur Amphetamines Screen U Methamphetamin-MDMA U Benzodiazepines Scrn Urine Cocaine Screen U Cannabinoids Screen Ethyl Alcohol POC Glucose 09/16/18 09/16/18 09/16/18 05:08 03:32 03:05 POC Glucose 99 98 66 L 09/15/18 09/15/18 09/15/18 23:59 23:28 17:45 POC Glucose 78 51 L 82 09/15/18 12:19 POC Glucose 162 H Medical Necessity - Tobacco Use Smoking Status: Never smoker Assessment/Plan All Active Problems (Last Reviewed 09/15/18 @ 10:01 by Donnie Perkins MD) Acute respiratory failure (Acute) Lactic acidosis (Acute) Acute on chronic renal failure (Acute) Status epilepticus (Acute) This is an 82 years old female patient presented to the emergency room from skilled nursing because of status epilepticus, found to have lactic acidosis which is attributed to continuous seizure, found to have acute kidney injury on top of stage III chronic kidney disease as well as acute cystitis, was intubated for airway protection. #1 status epilepticus: She is on IV Keppra. She had no more seizures since admission. Status post extubation, her vital signs are stable. CT scan brain showed no acute findings. EEG performed, revealed abnormal elective encephalogram, no epileptiform changes. Neurology and critical care on the case. The seizure could be due to old stroke. Plan to continue Keppra, MRI brain when feasible. #2 acute respiratory failure: Status post extubation. This was done for protection of her airway. At this time, pulse ox is maintained on 2 L of oxygen, stable. #3 lactic acidosis: Attributed to status epilepticus. Lactic acid came down to normal in 3 hours. Acute cystitis also could be contributing. Vital signs are stable. Blood cultures are pending. Urine culture revealed yeast, awaiting final report. #4 acute cystitis: On IV Zosyn empirically. She has been afebrile, vital cell count is back to normal. Urine culture revealed yeast, final is pending. Blood culture is pending. #4 acute kidney injury on top of stage III chronic kidney disease: She has been on IV fluids. Baseline creatinine has been around 1.2-1.4 mg/dL. Creatinine improved, came down to 2.04 today. Plan to continue IV fluids. #6 recent history of left colonic perforation: Status post exploratory laparotomy, left colon resection and colostomy. Postoperative course complicated by wound dehiscence and infection, status post treatment with antibiotics and wound VAC insertion. Surgery was done on July 27, 2018. Abdominal examination is benign. Colostomy bag in place, no stool in it. Wound VAC is inserted to the midline surgical scar/wound. No significant erythema or swelling around the surgical incision/wound. Apparently, patient completed antibiotics. #7 chronic anemia: It is normocytic anemia secondary to anemia of chronic disease. Baseline hemoglobin has been around 8-9 g/dL. Admission hemoglobin is 9.7 g/dL, today's hemoglobin is 8.2 g/dL stable. No evidence of active bleeding. No indication for blood transfusion. #8 type 2 diabetes mellitus: Remained n.p.o., blood sugar stable. Continue IV fluids, Accu-Cheks every 6 hours, insulin sliding scale every 6 hours. #9 hypothyroidism: Resume levothyroxine after speech evaluation. #10 hyperlipidemia: She is not on any statins. 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 No acute CHF. #12 COPD: Status post extubation. Respiratory status stabilized. Pulse ox is maintained on 2 L of oxygen. #13 CODE STATUS: DNR CCA. This note was generated with [employer] dictation software. It may contain incorrect words, spelling, and punctuation that were not noted in checking the note before signing. Code Visit Inpatient E&M: 02153 Subs Hosp L2
--- NOTE | 2018-09-16 09:40 | CASEMGMT ---
SW participated in ICU rounds this morning, family present. Pt has been extubated. Discharge plan continues to be for pt to return to [facility] when able. DAVE Kulkarni, [employer]LECT[employer]IC [employer]OP INSTALLER
[2018-09-16] MEDS: levETIRAcetam IV 100 ML 400 MG IV ×2 (10:08→21:36)
--- NOTE | 2018-09-16 11:56 | PCM.PN.NEU ---
Subjective: Daughter present. The patient is now extubated and awake and alert but not able to follow commands or answer questions. Daughter tells me that the patient did have a seizure in 2016 but has not been on anticonvulsants. That seizure was attributed to Levaquin apparently. Objective: On examination there is a mild right central 7 which daughter tells me is baseline. She moves extremities spontaneously and withdraws to command. - Physical Exam Vital Signs Temp Pulse Resp BP Pulse Ox 37.5 C H 66 15 124/66 H 98 09/16/18 09:00 09/16/18 11:00 09/16/18 11:00 09/16/18 11:00 09/16/18 11:00 Oxygen Flow Rate (L/min) 2 Oxygen Delivery Method Room Air Weight: 79 kg Body Mass Index (BMI) 29.6 Intake and Output for Last 24 Hours 09/14/18 09/15/18 09/16/18 23:59 23:59 23:59 Intake Total 1899.2 / 1899.2 677.2 / 677.2 Output Total 1070 / 1070 350 / 350 Balance 829.2 / 829.2 327.2 / 327.2 Microbiology Past 72 Hours 09/15/18 08:05 Urine Culture - Preliminary Urine Catheter - Benitez Yeast Laboratory Tests Past 24 Hrs 09/15/18 09/16/18 09/16/18 12:30 04:10 04:10 WBC 8.4 RBC 2.62 L Hgb 8.2 L Hct 25.6 L MCV 97.7 MCH 31.3 MCHC 32.0 RDW 18.2 H RDW Differential 64.6 H Plt Count 197 MPV 9.3 Immature Gran % (Auto) 0.200 Neut % (Auto) 71.8 H Lymph % (Auto) 11.9 L [place] % (Auto) 9.9 Eos % (Auto) 5.7 H Baso % (Auto) 0.5 Absolute Neuts (auto) 6.0 Absolute Lymphs (auto) 1.00 Total Counted Not Reportable Specimen Type Sample Site pH Bicarbonate Actual POC Total CO2 Base Excess O2 Saturation O2 % ABG pCO2 ABG pO2 Cory Test O2 Delivery Device Vent Mode POC PEEP POC Pressure Suppt Blood Gas Notified Whom Blood Gas Notified Time Sodium 146 H Potassium 4.0 Chloride 116 H Carbon Dioxide 20.0 L Anion Gap 10 BUN 30 H Creatinine 2.04 H Estim Creat Clear Calc 18.68 Est GFR (MDRD) Af Amer 30 L Est GFR (MDRD) Non-Af 25 L BUN/Creatinine Ratio 14.7 Glucose 112 H Lactic Acid 1.5 Calcium 7.8 L 09/16/18 06:49 WBC RBC Hgb Hct MCV MCH MCHC RDW RDW Differential Plt Count MPV Immature Gran % (Auto) Neut % (Auto) Lymph % (Auto) [place] % (Auto) Eos % (Auto) Baso % (Auto) Absolute Neuts (auto) Absolute Lymphs (auto) Total Counted Specimen Type ART Sample Site R Radial pH 7.40 Bicarbonate Actual 18.0 L POC Total CO2 19 Base Excess -7 L O2 Saturation 98 O2 % 30 ABG pCO2 28.9 L ABG pO2 100 Cory Test NEG O2 Delivery Device Vent Vent Mode CPAP PS POC PEEP 5 POC Pressure Suppt 5 Blood Gas Notified Whom ICU MD Blood Gas Notified Time 648 Sodium Potassium Chloride Carbon Dioxide Anion Gap BUN Creatinine Estim Creat Clear Calc Est GFR (MDRD) Af Amer Est GFR (MDRD) Non-Af BUN/Creatinine Ratio Glucose Lactic Acid Calcium POC Glucose 09/16/18 09/16/18 09/16/18 05:08 03:32 03:05 POC Glucose 99 98 66 L 09/15/18 09/15/18 09/15/18 23:59 23:28 17:45 POC Glucose 78 51 L 82 09/15/18 12:19 POC Glucose 162 H Medical Necessity - Tobacco Use Smoking Status: Never smoker Assessment/Plan All Active Problems (Last Reviewed 09/15/18 @ 10:01 by Donnie Perkins MD) Acute respiratory failure (Acute) Lactic acidosis (Acute) Acute on chronic renal failure (Acute) Status epilepticus (Acute) Status epilepticus: Likely due to old stroke. Character of the stroke although still looks chronic on CAT scan has changed from previous CAT scan. That this is resolved. She remains confused but significantly improved and is now extubated. MRI brain when able Continue Mayurppra
--- NOTE | 2018-09-16 12:02 | EEG ---
- Electroencephalogram Date of service 09/15/18 This is an 18 channel echoencephalogram performed on this 82-year-old female with a history of stroke, and status epilepticus. The patient is now intubated in the ICU. Background activity is very slow at 3-4 Hz symmetrically in the posterior leads. Hyperventilation was not performed. The patient did undergo photic stimulation and EKG reference leads were obtained. The background activity remains slow throughout the recording without lateralizing or epileptiform changes. Hyperventilation again was not performed. EKG was normal throughout the recording and photic stimulation did demonstrate a normal symmetric driving response in the posterior leads. Impression this is an abnormal electroencephalogram due to the presence of diffuse severe slowing. There are no epileptiform changes noted
[2018-09-16 12:30] LABS: Bedside Glucose 133 mg/dL (70-110)
--- NOTE | 2018-09-16 15:12 | CHAPLAIN ---
Type of Pastoral Visit ___ Initial Visit _x__ Follow-up Visit ___ On-call Visit ___ General Patient Visit ___ Spiritual Assessment ___ Family Conference ___ Bereavement ___ Rapid Response ___ Code Blue ___ Other (describe below) Pastoral Care Referral From ___ Patient _x__ Family ___ Nurse ___ Physician ___ Cloth Winder ___ Thermoforming Operator ___ Other (describe below) Sacrament/Intervention _x__ Active listening ___ Anointing ___ Mandaen ___ Bereavement ___ Communion ___ Marifer exploration ___ ___ Life review _x__ Prayer ___ Reconciliation ___ Sacrament of Sick _x__ Supportive presence ___ Wedding ___ Other (describe below) Pastoral Comments patient is awake and aware; this family has become known to the manager insurance through previous interactions in the hospital and knowing mutual friends; family greets the manager insurance warmly; pt made some funny statements and laughed at herself; only some of pt speech was understandable; offered a prayer and support to family
[2018-09-16 17:46] LABS: Bedside Glucose 167 mg/dL (70-110)
[2018-09-16] MEDS: Piperacil/Tazobactam 3.375 GM/50 ML ML IV (22:03)
[2018-09-16 23:21] LABS: Bedside Glucose 173 mg/dL (70-110)
[2018-09-17] VITALS (22 sets, daily range): BP systolic 127–161; BP diastolic 37–117; PULSE 67–82; RESP 15–20; TEMP 36.2–37.6; O2SAT 96–100
[2018-09-17] MEDS: CHLORHEXIDINE GLUC 2% CLOTH 1 EACH TOWELETTE TOPICAL (05:13)
[2018-09-17 06:01] LABS: Bedside Glucose 204 mg/dL (70-110)
[2018-09-17 06:20] LABS: Absolute Lymphocyte Count 0.71 X10^3/ul (0.83-4.51); Absolute Neutrophil Count 5.8 X10^3/uL (2.0-7.7); Basophil# 0.02 X10^3/uL; Basophil% 0.3 % (0-1); Eosinophil# 0.46 X10^3/uL; Eosinophils% 5.8 % (0-5); Hematocrit 24.5 % (37-47); Lymphocyte # 0.71 X10^3/ul (4.0); Mean Corp Hgb Conc 32.7 g/gl (32-36); Mean Corpuscular Hgb 31.5 pg (27.0-32.0); Mean Corpuscular Volume 96.5 fL (81-99); Mean Platelet Vol. 9.3 fl (6.2-12.0); Monocyte# 0.86 X10^3/uL; Monocyte% 10.9 % (0-10); Neutrophil # 5.81 X10^3/uL (2.7-7.7); Neutrophil % 73.7 % (47-70); Platelet Count 210 K/mm3 (150-450); Red Blood Count 2.54 M/mm3 (4.2-5.4); White Blood Count 7.9 K/mm3 (4.4-11.0)
[2018-09-17 06:21] LABS: POSITIVE COUNT NO; POSITIVE DIFFERENTIAL NO; POSITIVE MORPHOLOGY NO
[2018-09-17 06:29] LABS: Anion Gap 11 (5-15); BUN 22 mg/dL (7-18); BUN/Creat Ratio 10.7 RATIO (10-20); Calcium,Total 7.5 mg/dL (8.5-10.1); Chloride 111 mmol/L (98-107); Creatinine, Serum 2.05 mg/dL (0.55-1.02); EST Glomerular Filtration Rate 25 mL/min (>60); Est Glom Filt Rate - Afr Amer 30 mL/min (>60); Estimated Creatinine Clearance 18.59 ml/min; Glucose 202 mg/dL (74-106); Potassium 3.6 mmol/L (3.5-5.1); Sodium Level 140 mmol/L (136-145)
--- NOTE | 2018-09-17 07:40 | MRI_ITS ---
STUDY: MRI BRAIN WITHOUT CONTRAST REASON FOR EXAM: Female, 82 years old. Confusion 40 minutes after witnessed seizure. TECHNIQUE: Standardized multiplanar fat and water weighted pulse sequences were obtained. COMPARISON: CT of the head dated September 15, 2018. FINDINGS: There is mild cerebral atrophy with widening of the extra-axial spaces and ventricular dilatation. There are a limited number of small white matter hyperintensities, distributed throughout the deep white matter tracts of the cerebral hemispheres, consistent with mild chronic white matter ischemic changes. There is confluent periventricular hyperintensity cloaking the lateral ventricles, consistent with periventricular leukoaraiosis. There is encephalomalacia in the left parietal lobe with adjacent abnormal signal probably related to gliosis. There is no evidence for recent intracranial ischemia or other cause of cytotoxic edema on diffusion weighted imaging (DWI). Apparent restricted diffusion in the basal ganglia, left greater than right, (best seen on MR series #901 images #15, and 16) maybe related to recent seizure. There is also restricted diffusion in the medial left temporal lobe (MR series 901, image #14). There is restricted diffusion in bilateral cerebellar hemispheres (MR series #901, image #9). Normal T2* images of the brain without demonstrated susceptibility artifact. There is no demonstrated hemosiderin stain. Normal bilateral basal ganglia. Normal thalami. There is no extra-axial fluid accumulation. Normal flow voids within the major intracranial circulation suggesting patency by spin echo criteria. Normal sella turcica, pituitary gland, infundibular stalk, optic chiasm and hypothalamus. Normal tectal plate and pineal gland. Normal midbrain, belle and medulla. There are several small areas of encephalomalacia in the cerebellum are probably related to old infarcts. There are large basal cisterns. 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 Normal bilateral internal auditory canals. No demonstrated orbital abnormality, within the constraints of a routine brain study. There is almost complete opacification of the right maxillary sinus. There is mild mucoperiosteal thickening within bilateral ethmoid and maxillary sinuses. Normal calvarium and skull base. Normal visualized soft tissue structures. There are degenerative changes of the anterior atlantoaxial articulation. MRI/Brain without Contrast IMPRESSION: 1. Involutional changes of the brain, as described above. 2. Restricted diffusion in bilateral basal ganglia, left greater than right; left temporal lobe and bilateral cerebellar hemispheres maybe secondary to cytotoxic edema and recent seizure. Electronically Signed: Brandy Vizcarra MD at 11:19 EST , Service support ,
--- NOTE | 2018-09-17 08:06 | PN_ITS ---
Subjective: Chief complaint: Follow-up after admission for status epilepticus, acute hypoxic respiratory failure, acute kidney injury double stage III chronic kidney disease and acute cystitis. Patient seen and examined. No acute events overnight. She is alert and awake. She was able to answer couple of simple questions. She can move her left hand, wiggle her toes on both legs but, cannot move her right upper extremity. No reported seizure activity overnight. Patient remained confused. She denies any pain. Her vital signs are stable. - Physical Exam General: Alert, Cooperative, No apparent distress HEENT: Atraumatic, PERRLA, EOMI, Normocephalic Oral: Moist Mucosa, No Gingival or Mucosal Lesions/ Ulcerations Neck: Supple, No JVD, Negative Carotid Bruits, Trachea Midline, Thyroid Normal Size and Texture Lungs: No wheeze, No rales, Diminished, Rhonchi Cardiovascular: Regular rate, Regular Rhythm, Normal S1, Normal S2, PMI Normal Abdomen: Bowel Sounds Present, Soft, Non Tender, Non-Distended, No Hepato- splenomegaly Extremities: No clubbing, No cyanosis, No edema Skin: No rashes, No breakdown Lymphatic: No Cervical, Supraclavicular, or Inguinal Adenopathy Neurological: Cranial nerves II-XII grossly intact, - - Unable to assess appropriately. Patient can wiggle her toes, move her left upper extremity but not the right upper extremity. Psych/Mental Status: Normal Affect, Appropriate Vital Signs Temp Pulse Resp BP Pulse Ox 99.3 F H 69 20 H 127/69 H 97 09/17/18 07:00 09/17/18 07:00 09/17/18 07:00 09/17/18 07:00 09/17/18 07:00 Oxygen Flow Rate (L/min) 2 Oxygen Delivery Method Room Air Weight: 173 lb 1.006 oz Body Mass Index (BMI) 29.6 Intake and Output for Last 24 Hours 09/15/18 09/16/18 09/17/18 23:59 23:59 23:59 Intake Total 1899.2 / 1899.2 2717.2 / 2717.2 713.4 / 713.4 Output Total 1070 / 1070 1700 / 1700 850 / 850 Balance 829.2 / 829.2 1017.2 / 1017.2 -136.6 / -136.6 Microbiology Past 72 Hours 09/15/18 08:05 Urine Culture - Preliminary Urine Catheter - [facility] Yeast Laboratory Tests Past 24 Hrs 09/17/18 09/17/18 09/17/18 04:10 04:10 06:10 WBC Cancelled Corrected WBC Cancelled RBC Cancelled Hgb Cancelled Hct Cancelled MCV Cancelled MCH Cancelled MCHC Cancelled RDW Cancelled RDW Differential Cancelled Plt Count Cancelled MPV Cancelled Immature Gran % (Auto) Cancelled Neut % (Auto) Cancelled Lymph % (Auto) Cancelled [place] % (Auto) Cancelled Eos % (Auto) Cancelled Baso % (Auto) Cancelled Immature Gran # (Auto) Cancelled Absolute Neuts (auto) Cancelled Absolute Lymphs (auto) Cancelled Absolute Monos (auto) Cancelled Total Counted Cancelled Neutrophils % (Manual) Cancelled Band Neutrophils % Cancelled Lymphocytes % (Manual) Cancelled Monocytes % (Manual) Cancelled Eosinophils % (Manual) Cancelled Basophils % (Manual) Cancelled Metamyelocytes % Cancelled Myelocytes % Cancelled Promyelocytes % Cancelled Blast Cells % Cancelled Plasma Cell % (Manual) Cancelled Other Cells % Cancelled Lymphocytes # Cancelled Nucleated RBCs/100 WBC Cancelled Differential Comment Cancelled Diff Path Review Cancelled Hypersegmented Neuts Cancelled Atypical Lymphocytes Cancelled Reactive Lymphocytes Cancelled Smudge Cells Cancelled Eosinophilia # Cancelled Basophilia # Cancelled Toxic Granulation Cancelled Dohle Bodies Cancelled Derek Rods Cancelled Platelet Estimate Cancelled Plt Morphology Comment Cancelled RBC Morphology Cancelled Polychromasia Cancelled Hypochromasia Cancelled Poikilocytosis Cancelled Basophilic Stippling Cancelled Anisocytosis Cancelled Microcytosis Cancelled Macrocytosis Cancelled Spherocytes Cancelled Sickle Cells Cancelled Target Cells Cancelled Tear Drop Cells Cancelled Ovalocytes Cancelled Stomatocytes Cancelled [place] Bodies Cancelled [place] Cells Cancelled Bite Cells Cancelled Acanthocytes (Spur) Cancelled Rouleaux Cancelled Schistocytes Cancelled Sodium Cancelled 140 Potassium Cancelled 3.6 Chloride Cancelled 111 H Carbon Dioxide Cancelled 18.0 L Anion Gap Cancelled 11 BUN Cancelled 22 H Creatinine Cancelled 2.05 H Estim Creat Clear Calc Cancelled 18.59 Est GFR (MDRD) Af Amer Cancelled 30 L Est GFR (MDRD) Non-Af Cancelled 25 L BUN/Creatinine Ratio Cancelled 10.7 Glucose Cancelled 202 H Calcium Cancelled 7.5 L 09/17/18 06:10 WBC 7.9 Corrected WBC RBC 2.54 L Hgb 8.0 L Hct 24.5 L MCV 96.5 MCH 31.5 MCHC 32.7 RDW 17.0 H RDW Differential 57.0 H Plt Count 210 MPV 9.3 Immature Gran % (Auto) 0.300 Neut % (Auto) 73.7 H Lymph % (Auto) 9.0 L [place] % (Auto) 10.9 H Eos % (Auto) 5.8 H Baso % (Auto) 0.3 Immature Gran # (Auto) Absolute Neuts (auto) 5.8 Absolute Lymphs (auto) 0.71 L Absolute Monos (auto) Total Counted Not Reportable Neutrophils % (Manual) Band Neutrophils % Lymphocytes % (Manual) Monocytes % (Manual) Eosinophils % (Manual) Basophils % (Manual) Metamyelocytes % Myelocytes % Promyelocytes % Blast Cells % Plasma Cell % (Manual) Other Cells % Lymphocytes # Nucleated RBCs/100 WBC Differential Comment Diff Path Review Hypersegmented Neuts Atypical Lymphocytes Reactive Lymphocytes Smudge Cells Eosinophilia # Basophilia # Toxic Granulation Dohle Bodies Derek Rods Platelet Estimate Plt Morphology Comment RBC Morphology Polychromasia Hypochromasia Poikilocytosis Basophilic Stippling Anisocytosis Microcytosis Macrocytosis Spherocytes Sickle Cells Target Cells Tear Drop Cells Ovalocytes Stomatocytes [place] Bodies Compa Cells Bite Cells Acanthocytes (Spur) Rouleaux Schistocytes Sodium Potassium Chloride Carbon Dioxide Anion Gap BUN Creatinine Estim Creat Clear Calc Est GFR (MDRD) Af Amer Est GFR (MDRD) Non-Af BUN/Creatinine Ratio Glucose Calcium POC Glucose 09/17/18 09/16/18 09/16/18 05:54 23:14 17:43 POC Glucose 204 H 173 H 167 H 09/16/18 12:25 POC Glucose 133 H Medical Necessity - Tobacco Use Smoking Status: Never smoker Assessment/Plan All Active Problems (Last Reviewed 09/15/18 @ 10:01 by Donnie Perkins MD) Acute respiratory failure (Acute) Lactic acidosis (Acute) Acute on chronic renal failure (Acute) Status epilepticus (Acute) This is an 82 years old female patient presented to the emergency room from senior living because of status epilepticus, found to have lactic acidosis which is attributed to continuous seizure, found to have acute kidney injury on top of stage III chronic kidney disease as well as acute cystitis, was intubated for airway protection. #1 status epilepticus: Remained on IV Keppra. She had no more seizures since admission. Status post extubation, her vital signs are stable. CT scan brain showed no acute findings. EEG performed, revealed abnormal elective encephalogram, no epileptiform changes. Neurology and critical care on the case. The seizure could be due to old stroke. MRI done today, awaiting the report. Plan to continue same treatment, transfer to PCU if okay with critical care. #2 acute respiratory failure: Status post extubation, resolved with. This was done for protection of her airway. At this time, pulse ox is maintained on room air. #3 lactic acidosis: Attributed to status epilepticus. Lactic acid came down to normal. Acute cystitis also could be contributing. She is on IV Zosyn. Vital signs are stable, remained afebrile. Blood cultures showed no growth in 48 hours. Urine culture revealed yeast, awaiting final report. #4 acute cystitis: On IV Zosyn empirically. She has been afebrile, vital cell count is back to normal. Urine culture revealed yeast, final is pending. Blood cultur showed no growth in 48 hours as above. #5 acute kidney injury on top of stage III chronic kidney disease: She has been on IV fluids. Baseline creatinine has been around 1.2-1.4 mg/dL. Creatinine remains almost the same compared to yesterday, plan to resume IV fluids repeat BMP tomorrow morning. #6 recent history of left colonic perforation: Status post exploratory laparotomy, left colon resection and colostomy. Postoperative course complicated by wound dehiscence and infection, status post treatment with antibiotics and wound VAC insertion. Surgery was done on July 27, 2018. Abdominal examination is benign. Colostomy bag in place, no stool in it. Wound VAC is inserted to the midline surgical scar/wound. No significant erythema or swelling around the surgical incision/wound. Apparently, patient completed antibiotics. #7 chronic anemia: It is normocytic anemia secondary to anemia of chronic disease. Baseline hemoglobin has been around 8-9 g/dL. Admission hemoglobin is 9.7 g/dL, today's hemoglobin is 8 g/dL stable. No evidence of active bleeding. No indication for blood transfusion. Plan to repeat CBC tomorrow morning. #8 type 2 diabetes mellitus: Remained n.p.o., blood sugar stable. Continue IV fluids, Accu-Cheks every 6 hours, insulin sliding scale every 6 hours. Awaiting speech therapy evaluation to start her on diet. #9 hypothyroidism: Resume levothyroxine after speech evaluation. #10 hyperlipidemia: She is not on any statins. 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 No acute CHF. #12 COPD: Status post extubation. Respiratory status stabilized. Pulse ox is maintained on room air. #13 CODE STATUS: DNR CCA. This note was generated with [employer] dictation software. It may contain incorrect words, spelling, and punctuation that were not noted in checking the note before signing. Code Visit Inpatient E&M: 35909 Subs Hosp L2
--- NOTE | 2018-09-17 08:13 | PN_ITS ---
Subjective: Patient did okay overnight. Patient has maintained her airway and no seizure activity has been reported. However, nursing reports the patient continues to be significantly confused. Patient is not reporting any pain at this time, but is not able to provide any other information. Patient was not able to be initiated on feeds yesterday after evaluation by speech therapy. General: Alert, No apparent distress, Confused, Disoriented, Non-Cooperative, - - Appears stated age HEENT: Atraumatic, PERRLA, EOMI, Normocephalic, - - No scleral icterus or injection noted. Oral: Moist Mucosa, No Gingival or Mucosal Lesions/ Ulcerations Neck: Supple, No JVD, No Nodes, Trachea Midline Lungs: No rhonchi, No wheeze, No rales, Diminished, - - Symmetric expansion. No dullness to percussion. Cardiovascular: Regular rate, Regular Rhythm, Normal S1, Normal S2, No murmurs, No rub noted, No Gallop Abdomen: Bowel Sounds Present, Soft, Non Tender, Non-Distended Extremities: No clubbing, No cyanosis, Edema - Trace lower extremity Skin: - - No significant change compared to yesterday except for a mild bruise on the right upper lip Musculoskeletal: No Tenderness to Palpation of Joints or Extremities Lymphatic: No Cervical, Supraclavicular, or Inguinal Adenopathy Neurological: - - Grossly unchanged compared to yesterday Psych/Mental Status: Flat Affect Vital Signs Temp Pulse Resp BP Pulse Ox 37.4 C H 69 20 H 127/69 H 97 09/17/18 07:00 09/17/18 07:00 09/17/18 07:00 09/17/18 07:00 09/17/18 07:00 Oxygen Flow Rate (L/min) 2 Oxygen Delivery Method Room Air Weight: 78.5 kg Body Mass Index (BMI) 29.6 Intake and Output for Last 24 Hours 09/15/18 09/16/18 09/17/18 23:59 23:59 23:59 Intake Total 1899.2 / 1899.2 2717.2 / 2717.2 713.4 / 713.4 Output Total 1070 / 1070 1700 / 1700 850 / 850 Balance 829.2 / 829.2 1017.2 / 1017.2 -136.6 / -136.6 Labs (Last 48 Hours) 09/15/18 09/15/18 09/15/18 08:00 08:00 08:00 WBC 13.7 H Corrected WBC RBC 3.03 L Hgb 9.7 L Hct 30.1 L MCV 99.3 H MCH 32.0 MCHC 32.2 RDW 17.7 H RDW Differential 62.2 H Plt Count 337 MPV 9.3 Immature Gran % (Auto) 0.600 Neut % (Auto) 72.1 H Lymph % (Auto) 15.0 L [place] % (Auto) 6.2 Eos % (Auto) 5.7 H Baso % (Auto) 0.4 Immature Gran # (Auto) Absolute Neuts (auto) 9.9 H Absolute Lymphs (auto) 2.05 Absolute Monos (auto) Total Counted Not Reportable Neutrophils % (Manual) Band Neutrophils % Lymphocytes % (Manual) Monocytes % (Manual) Eosinophils % (Manual) Basophils % (Manual) Metamyelocytes % Myelocytes % Promyelocytes % Blast Cells % Plasma Cell % (Manual) Other Cells % Lymphocytes # Nucleated RBCs/100 WBC Differential Comment Diff Path Review Hypersegmented Neuts Atypical Lymphocytes Reactive Lymphocytes Smudge Cells Eosinophilia # Basophilia # Toxic Granulation Dohle Bodies Derek Rods Platelet Estimate Plt Morphology Comment RBC Morphology Polychromasia Hypochromasia Poikilocytosis Basophilic Stippling Anisocytosis Microcytosis Macrocytosis Spherocytes Sickle Cells Target Cells Tear Drop Cells Ovalocytes Stomatocytes [place] Bodies [place] Cells Bite Cells Acanthocytes (Spur) Rouleaux Schistocytes PT 16.8 H INR 1.4 APTT 28.1 Specimen Type Sample Site pH Bicarbonate Actual POC Total CO2 Base Excess O2 Saturation O2 % ABG pCO2 ABG pO2 Cory Test Respiration Rate O2 Delivery Device Vent Mode Tidal Volume POC PEEP POC Pressure Suppt Blood Gas Notified Whom Blood Gas Notified Time Sodium 142 Potassium 4.8 Chloride 111 H Carbon Dioxide 15.0 L Anion Gap 16 H BUN 37 H Creatinine 2.48 H Estim Creat Clear Calc 15.36 Est GFR (MDRD) Af Amer 24 L Est GFR (MDRD) Non-Af 20 L BUN/Creatinine Ratio 14.9 Glucose 202 H Lactic Acid Calcium 8.5 Total Bilirubin 0.30 AST 30 ALT 19 Alkaline Phosphatase 110 Troponin I < 0.015 Total Protein 6.6 Albumin 2.1 L Globulin 4.5 H Albumin/Globulin Ratio 0.5 L Lipase 96 Urine Color Urine Clarity Urine pH Ur Specific [place] Urine Protein Urine Glucose (UA) Urine Ketones Urine Occult Blood Urine Nitrite Urine Bilirubin Urine Urobilinogen Ur Leukocyte Esterase Urine RBC Urine WBC Ur Squamous Epith Cells Urine Bacteria Urine Mucus Urine Opiates Screen Urine Methadone Screen Ur Barbiturates Screen Ur Phencyclidine Scrn Ur Amphetamines Screen U Methamphetamin-MDMA U Benzodiazepines Scrn Urine Cocaine Screen U Cannabinoids Screen Ur Drug Screen Comment Ethyl Alcohol POC Glucose 09/15/18 09/15/18 09/15/18 08:00 08:00 08:05 WBC Corrected WBC RBC Hgb Hct MCV MCH MCHC RDW RDW Differential Plt Count MPV Immature Gran % (Auto) Neut % (Auto) Lymph % (Auto) [place] % (Auto) Eos % (Auto) Baso % (Auto) Immature Gran # (Auto) Absolute Neuts (auto) Absolute Lymphs (auto) Absolute Monos (auto) Total Counted Neutrophils % (Manual) Band Neutrophils % Lymphocytes % (Manual) Monocytes % (Manual) Eosinophils % (Manual) Basophils % (Manual) Metamyelocytes % Myelocytes % Promyelocytes % Blast Cells % Plasma Cell % (Manual) Other Cells % Lymphocytes # Nucleated RBCs/100 WBC Differential Comment Diff Path Review Hypersegmented Neuts Atypical Lymphocytes Reactive Lymphocytes Smudge Cells Eosinophilia # Basophilia # Toxic Granulation Dohle Bodies Derek Rods Platelet Estimate Plt Morphology Comment RBC Morphology Polychromasia Hypochromasia Poikilocytosis Basophilic Stippling Anisocytosis Microcytosis Macrocytosis Spherocytes Sickle Cells Target Cells Tear Drop Cells Ovalocytes Stomatocytes [place] Bodies [place] Cells Bite Cells Acanthocytes (Spur) Rouleaux Schistocytes PT INR APTT Specimen Type Sample Site pH Bicarbonate Actual POC Total CO2 Base Excess O2 Saturation O2 % ABG pCO2 ABG pO2 Cory Test Respiration Rate O2 Delivery Device Vent Mode Tidal Volume POC PEEP POC Pressure Suppt Blood Gas Notified Whom Blood Gas Notified Time Sodium Potassium Chloride Carbon Dioxide Anion Gap BUN Creatinine Estim Creat Clear Calc Est GFR (MDRD) Af Amer Est GFR (MDRD) Non-Af BUN/Creatinine Ratio Glucose Lactic Acid 6.3 H* Calcium Total Bilirubin AST ALT Alkaline Phosphatase Troponin I Total Protein Albumin Globulin Albumin/Globulin Ratio Lipase Urine Color Yellow Urine Clarity Sl. Cloudy Urine pH 5.0 Ur Specific [place] 1.015 Urine Protein 30 H Urine Glucose (UA) Normal Urine Ketones Negative Urine Occult Blood 50 H Urine Nitrite Negative Urine Bilirubin Negative Urine Urobilinogen Normal Ur Leukocyte Esterase 500 H Urine RBC 0 SEEN Urine WBC >100 SEEN Ur Squamous Epith Cells 0 SEEN Urine Bacteria 0 SEEN Urine Mucus 0 SEEN Urine Opiates Screen Urine Methadone Screen Ur Barbiturates Screen Ur Phencyclidine Scrn Ur Amphetamines Screen U Methamphetamin-MDMA U Benzodiazepines Scrn Urine Cocaine Screen U Cannabinoids Screen Ur Drug Screen Comment Ethyl Alcohol < 3.0 POC Glucose 09/15/18 09/15/18 09/15/18 08:05 08:32 12:19 WBC Corrected WBC RBC Hgb Hct MCV MCH MCHC RDW RDW Differential Plt Count MPV Immature Gran % (Auto) Neut % (Auto) Lymph % (Auto) [place] % (Auto) Eos % (Auto) Baso % (Auto) Immature Gran # (Auto) Absolute Neuts (auto) Absolute Lymphs (auto) Absolute Monos (auto) Total Counted Neutrophils % (Manual) Band Neutrophils % Lymphocytes % (Manual) Monocytes % (Manual) Eosinophils % (Manual) Basophils % (Manual) Metamyelocytes % Myelocytes % Promyelocytes % Blast Cells % Plasma Cell % (Manual) Other Cells % Lymphocytes # Nucleated RBCs/100 WBC Differential Comment Diff Path Review Hypersegmented Neuts Atypical Lymphocytes Reactive Lymphocytes Smudge Cells Eosinophilia # Basophilia # Toxic Granulation Dohle Bodies Derek Rods Platelet Estimate Plt Morphology Comment RBC Morphology Polychromasia Hypochromasia Poikilocytosis Basophilic Stippling Anisocytosis Microcytosis Macrocytosis Spherocytes Sickle Cells Target Cells Tear Drop Cells Ovalocytes Stomatocytes [place] Bodies Compa Cells Bite Cells Acanthocytes (Spur) Rouleaux Schistocytes PT INR APTT Specimen Type ART Sample Site L Radial pH 7.33 L Bicarbonate Actual 14.1 L POC Total CO2 15 Base Excess -12 L O2 Saturation 97 O2 % 40 ABG pCO2 26.7 L ABG pO2 93 Cory Test POS Respiration Rate 12 O2 Delivery Device Vent Vent Mode A-C Tidal Volume 450 POC PEEP 5 POC Pressure Suppt Blood Gas Notified Whom ED Blood Gas Notified Time 831 Sodium Potassium Chloride Carbon Dioxide Anion Gap BUN Creatinine Estim Creat Clear Calc Est GFR (MDRD) Af Amer Est GFR (MDRD) Non-Af BUN/Creatinine Ratio Glucose Lactic Acid Calcium Total Bilirubin AST ALT Alkaline Phosphatase Troponin I Total Protein Albumin Globulin Albumin/Globulin Ratio Lipase Urine Color Urine Clarity Urine pH Ur Specific [place] Urine Protein Urine Glucose (UA) Urine Ketones Urine Occult Blood Urine Nitrite Urine Bilirubin Urine Urobilinogen Ur Leukocyte Esterase Urine RBC Urine WBC Ur Squamous Epith Cells Urine Bacteria Urine Mucus Urine Opiates Screen NEGATIVE Urine Methadone Screen NEGATIVE Ur Barbiturates Screen NEGATIVE Ur Phencyclidine Scrn NEGATIVE Ur Amphetamines Screen NEGATIVE U Methamphetamin-MDMA NEGATIVE U Benzodiazepines Scrn NEGATIVE Urine Cocaine Screen NEGATIVE U Cannabinoids Screen NEGATIVE Ur Drug Screen Comment Ethyl Alcohol POC Glucose 162 H 09/15/18 09/15/18 09/15/18 12:30 17:45 23:28 WBC Corrected WBC RBC Hgb Hct MCV MCH MCHC RDW RDW Differential Plt Count MPV Immature Gran % (Auto) Neut % (Auto) Lymph % (Auto) [place] % (Auto) Eos % (Auto) Baso % (Auto) Immature Gran # (Auto) Absolute Neuts (auto) Absolute Lymphs (auto) Absolute Monos (auto) Total Counted Neutrophils % (Manual) Band Neutrophils % Lymphocytes % (Manual) Monocytes % (Manual) Eosinophils % (Manual) Basophils % (Manual) Metamyelocytes % Myelocytes % Promyelocytes % Blast Cells % Plasma Cell % (Manual) Other Cells % Lymphocytes # Nucleated RBCs/100 WBC Differential Comment Diff Path Review Hypersegmented Neuts Atypical Lymphocytes Reactive Lymphocytes Smudge Cells Eosinophilia # Basophilia # Toxic Granulation Dohle Bodies Derek Rods Platelet Estimate Plt Morphology Comment RBC Morphology Polychromasia Hypochromasia Poikilocytosis Basophilic Stippling Anisocytosis Microcytosis Macrocytosis Spherocytes Sickle Cells Target Cells Tear Drop Cells Ovalocytes Stomatocytes [place] Bodies [place] Cells Bite Cells Acanthocytes (Spur) Rouleaux Schistocytes PT INR APTT Specimen Type Sample Site pH Bicarbonate Actual POC Total CO2 Base Excess O2 Saturation O2 % ABG pCO2 ABG pO2 Cory Test Respiration Rate O2 Delivery Device Vent Mode Tidal Volume POC PEEP POC Pressure Suppt Blood Gas Notified Whom Blood Gas Notified Time Sodium Potassium Chloride Carbon Dioxide Anion Gap BUN Creatinine Estim Creat Clear Calc Est GFR (MDRD) Af Amer Est GFR (MDRD) Non-Af BUN/Creatinine Ratio Glucose Lactic Acid 1.5 Calcium Total Bilirubin AST ALT Alkaline Phosphatase Troponin I Total Protein Albumin Globulin Albumin/Globulin Ratio Lipase Urine Color Urine Clarity Urine pH Ur Specific [place] Urine Protein Urine Glucose (UA) Urine Ketones Urine Occult Blood Urine Nitrite Urine Bilirubin Urine Urobilinogen Ur Leukocyte Esterase Urine RBC Urine WBC Ur Squamous Epith Cells Urine Bacteria Urine Mucus Urine Opiates Screen Urine Methadone Screen Ur Barbiturates Screen Ur Phencyclidine Scrn Ur Amphetamines Screen U Methamphetamin-MDMA U Benzodiazepines Scrn Urine Cocaine Screen U Cannabinoids Screen Ur Drug Screen Comment Ethyl Alcohol POC Glucose 82 51 L 09/15/18 09/16/18 09/16/18 23:59 03:05 03:32 WBC Corrected WBC RBC Hgb Hct MCV MCH MCHC RDW RDW Differential Plt Count MPV Immature Gran % (Auto) Neut % (Auto) Lymph % (Auto) [place] % (Auto) Eos % (Auto) Baso % (Auto) Immature Gran # (Auto) Absolute Neuts (auto) Absolute Lymphs (auto) Absolute Monos (auto) Total Counted Neutrophils % (Manual) Band Neutrophils % Lymphocytes % (Manual) Monocytes % (Manual) Eosinophils % (Manual) Basophils % (Manual) Metamyelocytes % Myelocytes % Promyelocytes % Blast Cells % Plasma Cell % (Manual) Other Cells % Lymphocytes # Nucleated RBCs/100 WBC Differential Comment Diff Path Review Hypersegmented Neuts Atypical Lymphocytes Reactive Lymphocytes Smudge Cells Eosinophilia # Basophilia # Toxic Granulation Dohle Bodies Derek Rods Platelet Estimate Plt Morphology Comment RBC Morphology Polychromasia Hypochromasia Poikilocytosis Basophilic Stippling Anisocytosis Microcytosis Macrocytosis Spherocytes Sickle Cells Target Cells Tear Drop Cells Ovalocytes Stomatocytes [place] Bodies [place] Cells Bite Cells Acanthocytes (Spur) Rouleaux Schistocytes PT INR APTT Specimen Type Sample Site pH Bicarbonate Actual POC Total CO2 Base Excess O2 Saturation O2 % ABG pCO2 ABG pO2 Cory Test Respiration Rate O2 Delivery Device Vent Mode Tidal Volume POC PEEP POC Pressure Suppt Blood Gas Notified Whom Blood Gas Notified Time Sodium Potassium Chloride Carbon Dioxide Anion Gap BUN Creatinine Estim Creat Clear Calc Est GFR (MDRD) Af Amer Est GFR (MDRD) Non-Af BUN/Creatinine Ratio Glucose Lactic Acid Calcium Total Bilirubin AST ALT Alkaline Phosphatase Troponin I Total Protein Albumin Globulin Albumin/Globulin Ratio Lipase Urine Color Urine Clarity Urine pH Ur Specific [place] Urine Protein Urine Glucose (UA) Urine Ketones Urine Occult Blood Urine Nitrite Urine Bilirubin Urine Urobilinogen Ur Leukocyte Esterase Urine RBC Urine WBC Ur Squamous Epith Cells Urine Bacteria Urine Mucus Urine Opiates Screen Urine Methadone Screen Ur Barbiturates Screen Ur Phencyclidine Scrn Ur Amphetamines Screen U Methamphetamin-MDMA U Benzodiazepines Scrn Urine Cocaine Screen U Cannabinoids Screen Ur Drug Screen Comment Ethyl Alcohol POC Glucose 78 66 L 98 09/16/18 09/16/18 09/16/18 04:10 04:10 05:08 WBC 8.4 Corrected WBC RBC 2.62 L Hgb 8.2 L Hct 25.6 L MCV 97.7 MCH 31.3 MCHC 32.0 RDW 18.2 H RDW Differential 64.6 H Plt Count 197 MPV 9.3 Immature Gran % (Auto) 0.200 Neut % (Auto) 71.8 H Lymph % (Auto) 11.9 L [place] % (Auto) 9.9 Eos % (Auto) 5.7 H Baso % (Auto) 0.5 Immature Gran # (Auto) Absolute Neuts (auto) 6.0 Absolute Lymphs (auto) 1.00 Absolute Monos (auto) Total Counted Not Reportable Neutrophils % (Manual) Band Neutrophils % Lymphocytes % (Manual) Monocytes % (Manual) Eosinophils % (Manual) Basophils % (Manual) Metamyelocytes % Myelocytes % Promyelocytes % Blast Cells % Plasma Cell % (Manual) Other Cells % Lymphocytes # Nucleated RBCs/100 WBC Differential Comment Diff Path Review Hypersegmented Neuts Atypical Lymphocytes Reactive Lymphocytes Smudge Cells Eosinophilia # Basophilia # Toxic Granulation Dohle Bodies Derek Rods Platelet Estimate Plt Morphology Comment RBC Morphology Polychromasia Hypochromasia Poikilocytosis Basophilic Stippling Anisocytosis Microcytosis Macrocytosis Spherocytes Sickle Cells Target Cells Tear Drop Cells Ovalocytes Stomatocytes [place] Bodies Compa Cells Bite Cells Acanthocytes (Spur) Rouleaux Schistocytes PT INR APTT Specimen Type Sample Site pH Bicarbonate Actual POC Total CO2 Base Excess O2 Saturation O2 % ABG pCO2 ABG pO2 Cory Test Respiration Rate O2 Delivery Device Vent Mode Tidal Volume POC PEEP POC Pressure Suppt Blood Gas Notified Whom Blood Gas Notified Time Sodium 146 H Potassium 4.0 Chloride 116 H Carbon Dioxide 20.0 L Anion Gap 10 BUN 30 H Creatinine 2.04 H Estim Creat Clear Calc 18.68 Est GFR (MDRD) Af Amer 30 L Est GFR (MDRD) Non-Af 25 L BUN/Creatinine Ratio 14.7 Glucose 112 H Lactic Acid Calcium 7.8 L Total Bilirubin AST ALT Alkaline Phosphatase Troponin I Total Protein Albumin Globulin Albumin/Globulin Ratio Lipase Urine Color Urine Clarity Urine pH Ur Specific [place] Urine Protein Urine Glucose (UA) Urine Ketones Urine Occult Blood Urine Nitrite Urine Bilirubin Urine Urobilinogen Ur Leukocyte Esterase Urine RBC Urine WBC Ur Squamous Epith Cells Urine Bacteria Urine Mucus Urine Opiates Screen Urine Methadone Screen Ur Barbiturates Screen Ur Phencyclidine Scrn Ur Amphetamines Screen U Methamphetamin-MDMA U Benzodiazepines Scrn Urine Cocaine Screen U Cannabinoids Screen Ur Drug Screen Comment Ethyl Alcohol POC Glucose 99 09/16/18 09/16/18 09/16/18 06:49 12:25 17:43 WBC Corrected WBC RBC Hgb Hct MCV MCH MCHC RDW RDW Differential Plt Count MPV Immature Gran % (Auto) Neut % (Auto) Lymph % (Auto) [place] % (Auto) Eos % (Auto) Baso % (Auto) Immature Gran # (Auto) Absolute Neuts (auto) Absolute Lymphs (auto) Absolute Monos (auto) Total Counted Neutrophils % (Manual) Band Neutrophils % Lymphocytes % (Manual) Monocytes % (Manual) Eosinophils % (Manual) Basophils % (Manual) Metamyelocytes % Myelocytes % Promyelocytes % Blast Cells % Plasma Cell % (Manual) Other Cells % Lymphocytes # Nucleated RBCs/100 WBC Differential Comment Diff Path Review Hypersegmented Neuts Atypical Lymphocytes Reactive Lymphocytes Smudge Cells Eosinophilia # Basophilia # Toxic Granulation Dohle Bodies Derek Rods Platelet Estimate Plt Morphology Comment RBC Morphology Polychromasia Hypochromasia Poikilocytosis Basophilic Stippling Anisocytosis Microcytosis Macrocytosis Spherocytes Sickle Cells Target Cells Tear Drop Cells Ovalocytes Stomatocytes [place] Bodies [place] Cells Bite Cells Acanthocytes (Spur) Rouleaux Schistocytes PT INR APTT Specimen Type ART Sample Site R Radial pH 7.40 Bicarbonate Actual 18.0 L POC Total CO2 19 Base Excess -7 L O2 Saturation 98 O2 % 30 ABG pCO2 28.9 L ABG pO2 100 Cory Test NEG Respiration Rate O2 Delivery Device Vent Vent Mode CPAP PS Tidal Volume POC PEEP 5 POC Pressure Suppt 5 Blood Gas Notified Whom ICU Blood Gas Notified Time 648 Sodium Potassium Chloride Carbon Dioxide Anion Gap BUN Creatinine Estim Creat Clear Calc Est GFR (MDRD) Af Amer Est GFR (MDRD) Non-Af BUN/Creatinine Ratio Glucose Lactic Acid Calcium Total Bilirubin AST ALT Alkaline Phosphatase Troponin I Total Protein Albumin Globulin Albumin/Globulin Ratio Lipase Urine Color Urine Clarity Urine pH Ur Specific [place] Urine Protein Urine Glucose (UA) Urine Ketones Urine Occult Blood Urine Nitrite Urine Bilirubin Urine Urobilinogen Ur Leukocyte Esterase Urine RBC Urine WBC Ur Squamous Epith Cells Urine Bacteria Urine Mucus Urine Opiates Screen Urine Methadone Screen Ur Barbiturates Screen Ur Phencyclidine Scrn Ur Amphetamines Screen U Methamphetamin-MDMA U Benzodiazepines Scrn Urine Cocaine Screen U Cannabinoids Screen Ur Drug Screen Comment Ethyl Alcohol POC Glucose 133 H 167 H 09/16/18 09/17/18 09/17/18 23:14 04:10 04:10 WBC Cancelled Corrected WBC Cancelled RBC Cancelled Hgb Cancelled Hct Cancelled MCV Cancelled MCH Cancelled MCHC Cancelled RDW Cancelled RDW Differential Cancelled Plt Count Cancelled MPV Cancelled Immature Gran % (Auto) Cancelled Neut % (Auto) Cancelled Lymph % (Auto) Cancelled [place] % (Auto) Cancelled Eos % (Auto) Cancelled Baso % (Auto) Cancelled Immature Gran # (Auto) Cancelled Absolute Neuts (auto) Cancelled Absolute Lymphs (auto) Cancelled Absolute Monos (auto) Cancelled Total Counted Cancelled Neutrophils % (Manual) Cancelled Band Neutrophils % Cancelled Lymphocytes % (Manual) Cancelled Monocytes % (Manual) Cancelled Eosinophils % (Manual) Cancelled Basophils % (Manual) Cancelled Metamyelocytes % Cancelled Myelocytes % Cancelled Promyelocytes % Cancelled Blast Cells % Cancelled Plasma Cell % (Manual) Cancelled Other Cells % Cancelled Lymphocytes # Cancelled Nucleated RBCs/100 WBC Cancelled Differential Comment Cancelled Diff Path Review Cancelled Hypersegmented Neuts Cancelled Atypical Lymphocytes Cancelled Reactive Lymphocytes Cancelled Smudge Cells Cancelled Eosinophilia # Cancelled Basophilia # Cancelled Toxic Granulation Cancelled Dohle Bodies Cancelled Derek Rods Cancelled Platelet Estimate Cancelled Plt Morphology Comment Cancelled RBC Morphology Cancelled Polychromasia Cancelled Hypochromasia Cancelled Poikilocytosis Cancelled Basophilic Stippling Cancelled Anisocytosis Cancelled Microcytosis Cancelled Macrocytosis Cancelled Spherocytes Cancelled Sickle Cells Cancelled Target Cells Cancelled Tear Drop Cells Cancelled Ovalocytes Cancelled Stomatocytes Cancelled [place] Bodies Cancelled Compa Cells Cancelled Bite Cells Cancelled Acanthocytes (Spur) Cancelled Rouleaux Cancelled Schistocytes Cancelled PT INR APTT Specimen Type Sample Site pH Bicarbonate Actual POC Total CO2 Base Excess O2 Saturation O2 % ABG pCO2 ABG pO2 Cory Test Respiration Rate O2 Delivery Device Vent Mode Tidal Volume POC PEEP POC Pressure Suppt Blood Gas Notified Whom Blood Gas Notified Time Sodium Cancelled Potassium Cancelled Chloride Cancelled Carbon Dioxide Cancelled Anion Gap Cancelled BUN Cancelled Creatinine Cancelled Estim Creat Clear Calc Cancelled Est GFR (MDRD) Af Amer Cancelled Est GFR (MDRD) Non-Af Cancelled BUN/Creatinine Ratio Cancelled Glucose Cancelled Lactic Acid Calcium Cancelled Total Bilirubin AST ALT Alkaline Phosphatase Troponin I Total Protein Albumin Globulin Albumin/Globulin Ratio Lipase Urine Color Urine Clarity Urine pH Ur Specific [place] Urine Protein Urine Glucose (UA) Urine Ketones Urine Occult Blood Urine Nitrite Urine Bilirubin Urine Urobilinogen Ur Leukocyte Esterase Urine RBC Urine WBC Ur Squamous Epith Cells Urine Bacteria Urine Mucus Urine Opiates Screen Urine Methadone Screen Ur Barbiturates Screen Ur Phencyclidine Scrn Ur Amphetamines Screen U Methamphetamin-MDMA U Benzodiazepines Scrn Urine Cocaine Screen U Cannabinoids Screen Ur Drug Screen Comment Ethyl Alcohol POC Glucose 173 H 09/17/18 09/17/18 09/17/18 05:54 06:10 06:10 WBC 7.9 Corrected WBC RBC 2.54 L Hgb 8.0 L Hct 24.5 L MCV 96.5 MCH 31.5 MCHC 32.7 RDW 17.0 H RDW Differential 57.0 H Plt Count 210 MPV 9.3 Immature Gran % (Auto) 0.300 Neut % (Auto) 73.7 H Lymph % (Auto) 9.0 L [place] % (Auto) 10.9 H Eos % (Auto) 5.8 H Baso % (Auto) 0.3 Immature Gran # (Auto) Absolute Neuts (auto) 5.8 Absolute Lymphs (auto) 0.71 L Absolute Monos (auto) Total Counted Not Reportable Neutrophils % (Manual) Band Neutrophils % Lymphocytes % (Manual) Monocytes % (Manual) Eosinophils % (Manual) Basophils % (Manual) Metamyelocytes % Myelocytes % Promyelocytes % Blast Cells % Plasma Cell % (Manual) Other Cells % Lymphocytes # Nucleated RBCs/100 WBC Differential Comment Diff Path Review Hypersegmented Neuts Atypical Lymphocytes Reactive Lymphocytes Smudge Cells Eosinophilia # Basophilia # Toxic Granulation Dohle Bodies Derek Rods Platelet Estimate Plt Morphology Comment RBC Morphology Polychromasia Hypochromasia Poikilocytosis Basophilic Stippling Anisocytosis Microcytosis Macrocytosis Spherocytes Sickle Cells Target Cells Tear Drop Cells Ovalocytes Stomatocytes [place] Bodies Compa Cells Bite Cells Acanthocytes (Spur) Rouleaux Schistocytes PT INR APTT Specimen Type Sample Site pH Bicarbonate Actual POC Total CO2 Base Excess O2 Saturation O2 % ABG pCO2 ABG pO2 Cory Test Respiration Rate O2 Delivery Device Vent Mode Tidal Volume POC PEEP POC Pressure Suppt Blood Gas Notified Whom Blood Gas Notified Time Sodium 140 Potassium 3.6 Chloride 111 H Carbon Dioxide 18.0 L Anion Gap 11 BUN 22 H Creatinine 2.05 H Estim Creat Clear Calc 18.59 Est GFR (MDRD) Af Amer 30 L Est GFR (MDRD) Non-Af 25 L BUN/Creatinine Ratio 10.7 Glucose 202 H Lactic Acid Calcium 7.5 L Total Bilirubin AST ALT Alkaline Phosphatase Troponin I Total Protein Albumin Globulin Albumin/Globulin Ratio Lipase Urine Color Urine Clarity Urine pH Ur Specific [place] Urine Protein Urine Glucose (UA) Urine Ketones Urine Occult Blood Urine Nitrite Urine Bilirubin Urine Urobilinogen Ur Leukocyte Esterase Urine RBC Urine WBC Ur Squamous Epith Cells Urine Bacteria Urine Mucus Urine Opiates Screen Urine Methadone Screen Ur Barbiturates Screen Ur Phencyclidine Scrn Ur Amphetamines Screen U Methamphetamin-MDMA U Benzodiazepines Scrn Urine Cocaine Screen U Cannabinoids Screen Ur Drug Screen Comment Ethyl Alcohol POC Glucose 204 H Microbiology 09/15/18 08:05 Urine Catheter - Benitez Urine Culture - Preliminary Yeast Medical Necessity - Tobacco Use Smoking Status: Never smoker Assessment/Plan All Active Problems (Last Reviewed 09/15/18 @ 10:01 by Donnie Perkins MD) Acute respiratory failure (Acute) Lactic acidosis (Acute) Acute on chronic renal failure (Acute) Status epilepticus (Acute) RECOMMENDATIONS: 1. Continue Keppra. 2. Obtain MRI 3. Increase activity as tolerated 4. Wound nurse consultation for midline incision 5. Accu-Cheks with sliding scale insulin. IMPRESSIONS: 1. Status epilepticus Patient with 20-30 minutes of seizure activity. EEG showed no seizure activity. Neurology is following. Patient's lactic acidosis normalized. Patient appears to be tolerating Keppra well. Patient was on cefepime and this may be leading to accumulation and decreased seizure threshold. This has been changed to Zosyn therapy. Will obtain an MRI today 2. Acute hypoxic respiratory failure She noted to be 70s on room air on presentation. Patient did well on mechanical ventilation. Patient remains hemodynamically stable on room air. 3. Acute cystitis/DEMETRA on CKD 3 Patient currently on empiric Zosyn therapy. Await culture data. Patient does have a leukocytosis, but no fevers have been reported. Patient's creatini ne was significantly elevated approximately 2 weeks ago. This has been improving prior to discharge. Patient's current creatinine is stable around 2. Unclear if this is a new baseline or patient needs to continue to previous baseline of 1.2-1.4 mg/dL. 4. Recent left colonic perforation Patient's postoperative course was complicated by wound dehiscence and infection. Patient has been treated with antibiotics in the past and has a wound VAC currently in place. Surgery was completed on July 27, 2018. Abdominal exam is relatively benign with a colostomy bag in good position. No signs superficially of infection. 5. Hypothyroidism/hyperlipidemia/COPD/chronic anemia/advanced age Complicates care, management, recovery and prognosis. Patient will continue with Accu-Cheks and sliding scale insulin. May need to initiate basal insulin with tube feeds if patient remains intubated. Code Visit Inpatient E&M: 41106 [facility] Hosp L3
--- NOTE | 2018-09-17 08:28 | NURSING ---
Pt tolerated wound VAC dressing change well. there is still no output from the colostomy today. small amount of flatus noted in pouch.
[2018-09-17] MEDS: levETIRAcetam IV 100 ML 400 MG IV ×2 (08:55→21:46)
[2018-09-17] MEDS: 0.9% Normal Saline 1,000 ML 100 ML IV (08:55)
[2018-09-17] MEDS: Heparin Injection (Vial) 5,000 UNIT/ML VIAL 5000 UNIT SC ×2 (08:56→21:46)
--- NOTE | 2018-09-17 09:22 | CASEMGMT ---
Addendum entered by Flora 09/17/18 10:49: SW did speak w/Stella at [facility] and gave her an update on pt. SW was also able to fax clinicals. DAVE Kulkarni, PAVEL Original Note: Addendum entered by Flora 09/17/18 10:23: SW did place green sheet and transport forms on chart in event pt is ready to discharge back to [facility] on the weekend. DAVE Kulkarni, PAVEL Original Note: SW participated in ICU rounds, pt's family present. SW offered support to family after rounds. SW called [facility], message left w/update. SW not able to fax updates as fax is down at present. SW will place green sheet on chart w/transport forms in event pt is ready for discharge on the weekend. DAVE Kulkarni, PAVEL
[2018-09-17] MEDS: Piperacil/Tazobactam 3.375 GM/50 ML ML IV ×2 (10:53→23:11)
[2018-09-17 12:30] LABS: Bedside Glucose 166 mg/dL (70-110)
--- NOTE | 2018-09-17 14:17 | PN.NEURO_ITS ---
Subjective: Patient remains in the ICU but is somewhat more alert and responsive today. She does follow simple commands she is able to tell me that she is not in pain and answers yes or no questions. Objective: Examination she is awake and alert and follows simple commands, moves all extremities and cranial nerves appear to be intact. She still has significant aphasia, she is not able to tell me her name or her location. - Physical Exam Vital Signs Temp Pulse Resp BP Pulse Ox 37.4 C H 67 20 H 146/68 H 100 09/17/18 10:47 09/17/18 11:04 09/17/18 10:47 09/17/18 10:47 09/17/18 10:47 Oxygen Flow Rate (L/min) 2 Oxygen Delivery Method Room Air Weight: 78.5 kg Body Mass Index (BMI) 29.6 Intake and Output for Last 24 Hours 09/15/18 09/16/18 09/17/18 23:59 23:59 23:59 Intake Total 1899.2 / 1899.2 2717.2 / 2717.2 1073.4 / 1073.4 Output Total 1070 / 1070 1700 / 1700 1750 / 1750 Balance 829.2 / 829.2 1017.2 / 1017.2 -676.6 / -676.6 Microbiology Past 72 Hours 09/15/18 08:05 Urine Culture - Final Urine Catheter - Benitez Laila albicans 09/15/18 09:00 Blood Culture - Preliminary Blood Culture (Wb) - Anticubital Right No growth in 48 hours. 09/15/18 08:00 Blood Culture - Preliminary Blood Culture (Wb) - Right Hand No growth in 48 hours. Laboratory Tests Past 24 Hrs 09/17/18 09/17/18 09/17/18 04:10 04:10 06:10 WBC Cancelled Corrected WBC Cancelled RBC Cancelled Hgb Cancelled Hct Cancelled MCV Cancelled MCH Cancelled MCHC Cancelled RDW Cancelled RDW Differential Cancelled Plt Count Cancelled MPV Cancelled Immature Gran % (Auto) Cancelled Neut % (Auto) Cancelled Lymph % (Auto) Cancelled [place] % (Auto) Cancelled Eos % (Auto) Cancelled Baso % (Auto) Cancelled Immature Gran # (Auto) Cancelled Absolute Neuts (auto) Cancelled Absolute Lymphs (auto) Cancelled Absolute Monos (auto) Cancelled Total Counted Cancelled Neutrophils % (Manual) Cancelled Band Neutrophils % Cancelled Lymphocytes % (Manual) Cancelled Monocytes % (Manual) Cancelled Eosinophils % (Manual) Cancelled Basophils % (Manual) Cancelled Metamyelocytes % Cancelled Myelocytes % Cancelled Promyelocytes % Cancelled Blast Cells % Cancelled Plasma Cell % (Manual) Cancelled Other Cells % Cancelled Lymphocytes # Cancelled Nucleated RBCs/100 WBC Cancelled Differential Comment Cancelled Diff Path Review Cancelled Hypersegmented Neuts Cancelled Atypical Lymphocytes Cancelled Reactive Lymphocytes Cancelled Smudge Cells Cancelled Eosinophilia # Cancelled Basophilia # Cancelled Toxic Granulation Cancelled Dohle Bodies Cancelled Derek Rods Cancelled Platelet Estimate Cancelled Plt Morphology Comment Cancelled RBC Morphology Cancelled Polychromasia Cancelled Hypochromasia Cancelled Poikilocytosis Cancelled Basophilic Stippling Cancelled Anisocytosis Cancelled Microcytosis Cancelled Macrocytosis Cancelled Spherocytes Cancelled Sickle Cells Cancelled Target Cells Cancelled Tear Drop Cells Cancelled Ovalocytes Cancelled Stomatocytes Cancelled [place] Bodies Cancelled Compa Cells Cancelled Bite Cells Cancelled Acanthocytes (Spur) Cancelled Rouleaux Cancelled Schistocytes Cancelled Sodium Cancelled 140 Potassium Cancelled 3.6 Chloride Cancelled 111 H Carbon Dioxide Cancelled 18.0 L Anion Gap Cancelled 11 BUN Cancelled 22 H Creatinine Cancelled 2.05 H Estim Creat Clear Calc Cancelled 18.59 Est GFR (MDRD) Af Amer Cancelled 30 L Est GFR (MDRD) Non-Af Cancelled 25 L BUN/Creatinine Ratio Cancelled 10.7 Glucose Cancelled 202 H Calcium Cancelled 7.5 L 09/17/18 06:10 WBC 7.9 Corrected WBC RBC 2.54 L Hgb 8.0 L Hct 24.5 L MCV 96.5 MCH 31.5 MCHC 32.7 RDW 17.0 H RDW Differential 57.0 H Plt Count 210 MPV 9.3 Immature Gran % (Auto) 0.300 Neut % (Auto) 73.7 H Lymph % (Auto) 9.0 L [place] % (Auto) 10.9 H Eos % (Auto) 5.8 H Baso % (Auto) 0.3 Immature Gran # (Auto) Absolute Neuts (auto) 5.8 Absolute Lymphs (auto) 0.71 L Absolute Monos (auto) Total Counted Not Reportable Neutrophils % (Manual) Band Neutrophils % Lymphocytes % (Manual) Monocytes % (Manual) Eosinophils % (Manual) Basophils % (Manual) Metamyelocytes % Myelocytes % Promyelocytes % Blast Cells % Plasma Cell % (Manual) Other Cells % Lymphocytes # Nucleated RBCs/100 WBC Differential Comment Diff Path Review Hypersegmented Neuts Atypical Lymphocytes Reactive Lymphocytes Smudge Cells Eosinophilia # Basophilia # Toxic Granulation Dohle Bodies Derek Rods Platelet Estimate Plt Morphology Comment RBC Morphology Polychromasia Hypochromasia Poikilocytosis Basophilic Stippling Anisocytosis Microcytosis Macrocytosis Spherocytes Sickle Cells Target Cells Tear Drop Cells Ovalocytes Stomatocytes [place] Bodies [place] Cells Bite Cells Acanthocytes (Spur) Rouleaux Schistocytes Sodium Potassium Chloride Carbon Dioxide Anion Gap BUN Creatinine Estim Creat Clear Calc Est GFR (MDRD) Af Amer Est GFR (MDRD) Non-Af BUN/Creatinine Ratio Glucose Calcium POC Glucose 09/17/18 09/17/18 09/16/18 12:27 05:54 23:14 POC Glucose 166 H 204 H 173 H 09/16/18 17:43 POC Glucose 167 H Reviewed the MRI of her brain. 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 Medical Necessity - Tobacco Use Smoking Status: Never smoker Assessment/Plan All Active Problems (Last Reviewed 09/15/18 @ 10:01 by Donnie Perkins MD) Acute respiratory failure (Acute) Lactic acidosis (Acute) Acute on chronic renal failure (Acute) Status epilepticus (Acute) Status epilepticus: Likely due to old stroke. Evidently she was on cefepime as well. MRI does not show acute brain injury. She is slowly improving, she remains postictal. Continue Keppra, therapies, will investigate the possibility of rehab.
[2018-09-17 17:06] LABS: Bedside Glucose 237 mg/dL (70-110)
[2018-09-17 23:21] LABS: Bedside Glucose 182 mg/dL (70-110)
[2018-09-18] VITALS (18 sets, daily range): BP systolic 126–152; BP diastolic 56–99; PULSE 63–79; RESP 15–22; TEMP 36.5–37.9; O2SAT 94–100
[2018-09-18] MEDS: 0.9% NaCl Peripheral Flush Adult/Peds IV (06:50)
[2018-09-18 06:51] LABS: Absolute Lymphocyte Count 0.86 X10^3/ul (0.83-4.51); Absolute Neutrophil Count 4.9 X10^3/uL (2.0-7.7); Basophil# 0.03 X10^3/uL; Basophil% 0.4 % (0-1); Eosinophil# 0.42 X10^3/uL; Eosinophils% 6.1 % (0-5); Hematocrit 23.3 % (37-47); Hemoglobin 7.6 g/dl (12.0-15.0); Lymphocyte # 0.86 X10^3/ul (4.0); Lymphocyte % 12.6 % (19-41); Mean Corp Hgb Conc 32.6 g/gl (32-36); Mean Corpuscular Hgb 31.8 pg (27.0-32.0); Mean Corpuscular Volume 97.5 fL (81-99); Mean Platelet Vol. 9.8 fl (6.2-12.0); Monocyte# 0.62 X10^3/uL; Monocyte% 9.1 % (0-10); Neutrophil % 71.5 % (47-70); Platelet Count 170 K/mm3 (150-450); RBC Distribution Width CV 17.3 % (11.6-14.6); RBC Distribution Width SD 58.5 fl (35.1-43.9); Red Blood Count 2.39 M/mm3 (4.2-5.4); White Blood Count 6.9 K/mm3 (4.4-11.0)
[2018-09-18 06:54] LABS: POSITIVE COUNT NO; POSITIVE DIFFERENTIAL NO; POSITIVE MORPHOLOGY NO
[2018-09-18] MEDS: 0.9% Normal Saline 1,000 ML 100 ML IV (08:08)
[2018-09-18] MEDS: Heparin Injection (Vial) 5,000 UNIT/ML VIAL 5000 UNIT SC ×2 (08:17→21:06)
--- NOTE | 2018-09-18 08:18 | PN_ITS ---
Subjective: Chief complaint: Follow-up after admission for status epilepticus, acute hypoxic respiratory failure, acute kidney injury double stage III chronic kidney disease and acute cystitis. Patient seen and examined. No acute events overnight. She is alert and awake, disoriented to time and place. She is oriented to self only. She denied chest pain. She denied abdominal pain. Her vital signs are stable. - Physical Exam General: Alert, Cooperative, No apparent distress, Confused, Disoriented HEENT: Atraumatic, PERRLA, EOMI, Normocephalic Oral: Moist Mucosa, No Gingival or Mucosal Lesions/ Ulcerations Neck: Supple, No JVD, Negative Carotid Bruits, Trachea Midline, Thyroid Normal Size and Texture Lungs: Clear to auscultation, No rhonchi, No wheeze, No rales, Diminished Cardiovascular: Regular rate, Regular Rhythm, Normal S1, Normal S2, PMI Normal Abdomen: Bowel Sounds Present, Soft, Non Tender, Non-Distended, No Hepato- splenomegaly, - - Colostomy bag and wound VAC in place. Extremities: No clubbing, No cyanosis, No edema Skin: No rashes, No breakdown Lymphatic: No Cervical, Supraclavicular, or Inguinal Adenopathy Neurological: Cranial nerves II-XII grossly intact, - - Moving all limbs. Psych/Mental Status: Normal Affect, Appropriate Vital Signs Temp Pulse Resp BP Pulse Ox 99.8 F H 79 18 143/90 H 100 09/18/18 08:05 09/18/18 08:05 09/18/18 08:05 09/18/18 08:05 09/18/18 08:05 Oxygen Flow Rate (L/min) 2 Oxygen Delivery Method Room Air Weight: 172 lb 2.896 oz Body Mass Index (BMI) 29.6 Intake and Output for Last 24 Hours 09/16/18 09/17/18 09/18/18 23:59 23:59 23:59 Intake Total 2717.2 / 2717.2 2388.4 / 2388.4 Output Total 1700 / 1700 2625 / 2625 Balance 1017.2 / 1017.2 -236.6 / -236.6 Microbiology Past 72 Hours 09/15/18 08:05 Urine Culture - Final Urine Catheter - Benitez Laila albicans 09/15/18 09:00 Blood Culture - Preliminary Blood Culture (Wb) - Anticubital Right No growth in 48 hours. 09/15/18 08:00 Blood Culture - Preliminary Blood Culture (Wb) - Right Hand No growth in 48 hours. Laboratory Tests Past 24 Hrs 09/18/18 09/18/18 09/18/18 06:40 06:40 06:40 WBC 6.9 RBC 2.39 L Hgb 7.6 L Hct 23.3 L MCV 97.5 MCH 31.8 MCHC 32.6 RDW 17.3 H RDW Differential 58.5 H Plt Count 170 MPV 9.8 Immature Gran % (Auto) 0.300 Neut % (Auto) 71.5 H Lymph % (Auto) 12.6 L [place] % (Auto) 9.1 Eos % (Auto) 6.1 H Baso % (Auto) 0.4 Absolute Neuts (auto) 4.9 Absolute Lymphs (auto) 0.86 Total Counted Not Reportable PT Cancelled INR Cancelled Sodium Cancelled Potassium Cancelled Chloride Cancelled Carbon Dioxide Cancelled Anion Gap Cancelled BUN Cancelled Creatinine Cancelled Estim Creat Clear Calc Cancelled Est GFR (MDRD) Af Amer Cancelled Est GFR (MDRD) Non-Af Cancelled BUN/Creatinine Ratio Cancelled Glucose Cancelled Calcium Cancelled POC Glucose 09/17/18 09/17/18 09/17/18 23:08 16:58 12:27 POC Glucose 182 H 237 H 166 H Clinical Impression(s) from Imaging Studies Brain MRI 09/17/18 07:40 IMPRESSION: 1. Involutional changes of the brain, as described above. 2. Restricted diffusion in bilateral basal ganglia, left greater than right; left temporal lobe and bilateral cerebellar hemispheres maybe secondary to cytotoxic edema and recent seizure. Electronically Signed: Brandy Vizcarra MD at 11:19 EST , Service support , Medical Necessity - Tobacco Use Smoking Status: Never smoker Assessment/Plan All Active Problems (Last Reviewed 09/15/18 @ 10:01 by Donnie Perkins MD) Acute respiratory failure (Acute) Lactic acidosis (Acute) Acute on chronic renal failure (Acute) Status epilepticus (Acute) This is an 82 years old female patient presented to the emergency room from intermediate because of status epilepticus, found to have lactic acidosis which is attributed to continuous seizure, found to have acute kidney injury on top of stage III chronic kidney disease as well as acute cystitis, was intubated for airway protection. #1 status epilepticus: Remained on IV Keppra. She had no more seizures since admission. Status post extubation, her vital signs are stable. MRI brain done yesterday and revealed no acute findings, no hemorrhage or infarction, revealed findings possibly due to cytotoxic edema secondary to recent seizure.n Neurology and critical care on the case. The seizure could be due to old stroke. Plan: DC IV Keppra, start oral Keppra 500 mg p.o. twice daily. #2 acute respiratory failure: Status post extubation, resolved . This was done for protection of her airway. Pulse ox has been maintained on room air. #3 lactic acidosis: Attributed to status epilepticus. Lactic acid came down to normal. Acute cystitis also could be contributing. She is on day 3 of IV Zosyn. Vital signs are stable, remained afebrile. Blood cultures showed no growth in 48 hours. Urine culture revealed Laila albicans. Plan to continue IV Zosyn, plan to DC tomorrow morning if patient remains afebrile. #4 acute cystitis: On IV Zosyn empirically. She has been afebrile, vital cell count is back to normal. Urine culture revealed Laila albicans. Blood culture showed no growth in 48 hours as above. Plan as above #5 acute kidney injury on top of stage III chronic kidney disease: Baseline creatinine has been around 1.2-1.4 mg/dL. Today's creatinine is 1.85, slightly improved, plan to continue gentle IV fluids for hydration. #6 recent history of left colonic perforation: Status post exploratory laparotomy, left colon resection and colostomy. Postoperative course complicated by wound dehiscence and infection, status post treatment with antibiotics and wound VAC insertion. Surgery was done on July 27, 2018. Abdominal examination is benign. Colostomy bag in place, no stool in it. Wound VAC is inserted to the midline surgical scar/wound. No significant erythema or swelling around the surgical incision/wound. Apparently, patient completed antibiotics. #7 Acute on chronic chronic anemia: It is normocytic anemia secondary to anemia of chronic disease. Baseline hemoglobin has been around 8-9 g/dL. Admission hemoglobin is 9.7 g/dL, today's hemoglobin is 7.6 g/dL stable, this is likely because of hemodilution. Plan to transfuse 1 unit of packed RBCs, repeat CBC tomorrow morning. #8 type 2 diabetes mellitus: Started on pur?ed diet. Continue IV fluids, Accu- Cheks every 6 hours, insulin sliding scale every 6 hours. Will resume her Lantus 50 units twice daily. #9 hypothyroidism: Resume levothyroxine. #10 hyperlipidemia: She is not on any statins. 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 No acute CHF. Resume amiodarone and metoprolol. #12 COPD: Status post extubation. Respiratory status stabilized. Pulse ox is maintained on room air. #13 CODE STATUS: DNR CCA. This note was generated with [employer] dictation software. It may contain incorrect words, spelling, and punctuation that were not noted in checking the note before signing. Code Visit Inpatient E&M: 81727 Subs Hosp L2
--- NOTE | 2018-09-18 08:18 | PCM.PN.INT ---
Subjective: Patient transferred out of the intensive care unit yesterday. No acute issues reported overnight. No seizure activity reported. Patient is much more interactive this morning and feels she is back to her baseline. Patient knows she is in the hospital, but is unable to recall the events that led to her admission. Patient denies any chest pain or headache. General: Alert, Cooperative, No apparent distress, Disoriented, - - Speaking in full sentences. HEENT: Atraumatic, PERRLA, EOMI, Normocephalic, - - No scleral icterus or injection noted. Oral: Moist Mucosa, No Gingival or Mucosal Lesions/ Ulcerations Neck: Supple, No JVD, No Nodes, Trachea Midline Lungs: Clear to auscultation, Normal air movement, No rhonchi, No wheeze, No rales Cardiovascular: Regular rate, Regular Rhythm, Normal S1, Normal S2, No murmurs, No rub noted, No Gallop Abdomen: Bowel Sounds Present, Soft, Non Tender, Non-Distended, Obese Extremities: No clubbing, No cyanosis, No edema, Capillary Refill Less than 3 Seconds Skin: No rashes, No breakdown Musculoskeletal: No Tenderness to Palpation of Joints or Extremities Lymphatic: No Cervical, Supraclavicular, or Inguinal Adenopathy Neurological: Cranial nerves II-XII grossly intact, Neuro grossly intact, Motor Exam 5/5 strength throughout Psych/Mental Status: Appropriate, Flat Affect Vital Signs Temp Pulse Resp BP Pulse Ox 37.7 C H 79 18 143/90 H 100 09/18/18 08:05 09/18/18 08:05 09/18/18 08:05 09/18/18 08:05 09/18/18 08:05 Oxygen Flow Rate (L/min) 2 Oxygen Delivery Method Room Air Weight: 78.1 kg Body Mass Index (BMI) 29.6 Intake and Output for Last 24 Hours 09/16/18 09/17/18 09/18/18 23:59 23:59 23:59 Intake Total 2717.2 / 2717.2 2388.4 / 2388.4 Output Total 1700 / 1700 2625 / 2625 Balance 1017.2 / 1017.2 -236.6 / -236.6 Labs (Last 48 Hours) 09/16/18 09/16/18 09/16/18 12:25 17:43 23:14 WBC Corrected WBC RBC Hgb Hct MCV MCH MCHC RDW RDW Differential Plt Count MPV Immature Gran % (Auto) Neut % (Auto) Lymph % (Auto) [place] % (Auto) Eos % (Auto) Baso % (Auto) Immature Gran # (Auto) Absolute Neuts (auto) Absolute Lymphs (auto) Absolute Monos (auto) Total Counted Neutrophils % (Manual) Band Neutrophils % Lymphocytes % (Manual) Monocytes % (Manual) Eosinophils % (Manual) Basophils % (Manual) Metamyelocytes % Myelocytes % Promyelocytes % Blast Cells % Plasma Cell % (Manual) Other Cells % Lymphocytes # Nucleated RBCs/100 WBC Differential Comment Diff Path Review Hypersegmented Neuts Atypical Lymphocytes Reactive Lymphocytes Smudge Cells Eosinophilia # Basophilia # Toxic Granulation Dohle Bodies Derek Rods Platelet Estimate Plt Morphology Comment RBC Morphology Polychromasia Hypochromasia Poikilocytosis Basophilic Stippling Anisocytosis Microcytosis Macrocytosis Spherocytes Sickle Cells Target Cells Tear Drop Cells Ovalocytes Stomatocytes [place] Bodies Compa Cells Bite Cells Acanthocytes (Spur) Rouleaux Schistocytes PT INR Sodium Potassium Chloride Carbon Dioxide Anion Gap BUN Creatinine Estim Creat Clear Calc Est GFR (MDRD) Af Amer Est GFR (MDRD) Non-Af BUN/Creatinine Ratio Glucose Calcium POC Glucose 133 H 167 H 173 H 09/17/18 09/17/18 09/17/18 04:10 04:10 05:54 WBC Cancelled Corrected WBC Cancelled RBC Cancelled Hgb Cancelled Hct Cancelled MCV Cancelled MCH Cancelled MCHC Cancelled RDW Cancelled RDW Differential Cancelled Plt Count Cancelled MPV Cancelled Immature Gran % (Auto) Cancelled Neut % (Auto) Cancelled Lymph % (Auto) Cancelled [place] % (Auto) Cancelled Eos % (Auto) Cancelled Baso % (Auto) Cancelled Immature Gran # (Auto) Cancelled Absolute Neuts (auto) Cancelled Absolute Lymphs (auto) Cancelled Absolute Monos (auto) Cancelled Total Counted Cancelled Neutrophils % (Manual) Cancelled Band Neutrophils % Cancelled Lymphocytes % (Manual) Cancelled Monocytes % (Manual) Cancelled Eosinophils % (Manual) Cancelled Basophils % (Manual) Cancelled Metamyelocytes % Cancelled Myelocytes % Cancelled Promyelocytes % Cancelled Blast Cells % Cancelled Plasma Cell % (Manual) Cancelled Other Cells % Cancelled Lymphocytes # Cancelled Nucleated RBCs/100 WBC Cancelled Differential Comment Cancelled Diff Path Review Cancelled Hypersegmented Neuts Cancelled Atypical Lymphocytes Cancelled Reactive Lymphocytes Cancelled Smudge Cells Cancelled Eosinophilia # Cancelled Basophilia # Cancelled Toxic Granulation Cancelled Dohle Bodies Cancelled Derek Rods Cancelled Platelet Estimate Cancelled Plt Morphology Comment Cancelled RBC Morphology Cancelled Polychromasia Cancelled Hypochromasia Cancelled Poikilocytosis Cancelled Basophilic Stippling Cancelled Anisocytosis Cancelled Microcytosis Cancelled Macrocytosis Cancelled Spherocytes Cancelled Sickle Cells Cancelled Target Cells Cancelled Tear Drop Cells Cancelled Ovalocytes Cancelled Stomatocytes Cancelled [place] Bodies Cancelled [place] Cells Cancelled Bite Cells Cancelled Acanthocytes (Spur) Cancelled Rouleaux Cancelled Schistocytes Cancelled PT INR Sodium Cancelled Potassium Cancelled Chloride Cancelled Carbon Dioxide Cancelled Anion Gap Cancelled BUN Cancelled Creatinine Cancelled Estim Creat Clear Calc Cancelled Est GFR (MDRD) Af Amer Cancelled Est GFR (MDRD) Non-Af Cancelled BUN/Creatinine Ratio Cancelled Glucose Cancelled Calcium Cancelled POC Glucose 204 H 09/17/18 09/17/18 09/17/18 06:10 06:10 12:27 WBC 7.9 Corrected WBC RBC 2.54 L Hgb 8.0 L Hct 24.5 L MCV 96.5 MCH 31.5 MCHC 32.7 RDW 17.0 H RDW Differential 57.0 H Plt Count 210 MPV 9.3 Immature Gran % (Auto) 0.300 Neut % (Auto) 73.7 H Lymph % (Auto) 9.0 L [place] % (Auto) 10.9 H Eos % (Auto) 5.8 H Baso % (Auto) 0.3 Immature Gran # (Auto) Absolute Neuts (auto) 5.8 Absolute Lymphs (auto) 0.71 L Absolute Monos (auto) Total Counted Not Reportable Neutrophils % (Manual) Band Neutrophils % Lymphocytes % (Manual) Monocytes % (Manual) Eosinophils % (Manual) Basophils % (Manual) Metamyelocytes % Myelocytes % Promyelocytes % Blast Cells % Plasma Cell % (Manual) Other Cells % Lymphocytes # Nucleated RBCs/100 WBC Differential Comment Diff Path Review Hypersegmented Neuts Atypical Lymphocytes Reactive Lymphocytes Smudge Cells Eosinophilia # Basophilia # Toxic Granulation Dohle Bodies Derek Rods Platelet Estimate Plt Morphology Comment RBC Morphology Polychromasia Hypochromasia Poikilocytosis Basophilic Stippling Anisocytosis Microcytosis Macrocytosis Spherocytes Sickle Cells Target Cells Tear Drop Cells Ovalocytes Stomatocytes [place] Bodies Compa Cells Bite Cells Acanthocytes (Spur) Rouleaux Schistocytes PT INR Sodium 140 Potassium 3.6 Chloride 111 H Carbon Dioxide 18.0 L Anion Gap 11 BUN 22 H Creatinine 2.05 H Estim Creat Clear Calc 18.59 Est GFR (MDRD) Af Amer 30 L Est GFR (MDRD) Non-Af 25 L BUN/Creatinine Ratio 10.7 Glucose 202 H Calcium 7.5 L POC Glucose 166 H 09/17/18 09/17/18 09/18/18 16:58 23:08 06:40 WBC 6.9 Corrected WBC RBC 2.39 L Hgb 7.6 L Hct 23.3 L MCV 97.5 MCH 31.8 MCHC 32.6 RDW 17.3 H RDW Differential 58.5 H Plt Count 170 MPV 9.8 Immature Gran % (Auto) 0.300 Neut % (Auto) 71.5 H Lymph % (Auto) 12.6 L [place] % (Auto) 9.1 Eos % (Auto) 6.1 H Baso % (Auto) 0.4 Immature Gran # (Auto) Absolute Neuts (auto) 4.9 Absolute Lymphs (auto) 0.86 Absolute Monos (auto) Total Counted Not Reportable Neutrophils % (Manual) Band Neutrophils % Lymphocytes % (Manual) Monocytes % (Manual) Eosinophils % (Manual) Basophils % (Manual) Metamyelocytes % Myelocytes % Promyelocytes % Blast Cells % Plasma Cell % (Manual) Other Cells % Lymphocytes # Nucleated RBCs/100 WBC Differential Comment Diff Path Review Hypersegmented Neuts Atypical Lymphocytes Reactive Lymphocytes Smudge Cells Eosinophilia # Basophilia # Toxic Granulation Dohle Bodies Derek Rods Platelet Estimate Plt Morphology Comment RBC Morphology Polychromasia Hypochromasia Poikilocytosis Basophilic Stippling Anisocytosis Microcytosis Macrocytosis Spherocytes Sickle Cells Target Cells Tear Drop Cells Ovalocytes Stomatocytes [place] Bodies [place] Cells Bite Cells Acanthocytes (Spur) Rouleaux Schistocytes PT INR Sodium Potassium Chloride Carbon Dioxide Anion Gap BUN Creatinine Estim Creat Clear Calc Est GFR (MDRD) Af Amer Est GFR (MDRD) Non-Af BUN/Creatinine Ratio Glucose Calcium POC Glucose 237 H 182 H 09/18/18 09/18/18 06:40 06:40 WBC Corrected WBC RBC Hgb Hct MCV MCH MCHC RDW RDW Differential Plt Count MPV Immature Gran % (Auto) Neut % (Auto) Lymph % (Auto) [place] % (Auto) Eos % (Auto) Baso % (Auto) Immature Gran # (Auto) Absolute Neuts (auto) Absolute Lymphs (auto) Absolute Monos (auto) Total Counted Neutrophils % (Manual) Band Neutrophils % Lymphocytes % (Manual) Monocytes % (Manual) Eosinophils % (Manual) Basophils % (Manual) Metamyelocytes % Myelocytes % Promyelocytes % Blast Cells % Plasma Cell % (Manual) Other Cells % Lymphocytes # Nucleated RBCs/100 WBC Differential Comment Diff Path Review Hypersegmented Neuts Atypical Lymphocytes Reactive Lymphocytes Smudge Cells Eosinophilia # Basophilia # Toxic Granulation Dohle Bodies Derek Rods Platelet Estimate Plt Morphology Comment RBC Morphology Polychromasia Hypochromasia Poikilocytosis Basophilic Stippling Anisocytosis Microcytosis Macrocytosis Spherocytes Sickle Cells Target Cells Tear Drop Cells Ovalocytes Stomatocytes [place] Bodies Compa Cells Bite Cells Acanthocytes (Spur) Rouleaux Schistocytes PT Cancelled INR Cancelled Sodium Cancelled Potassium Cancelled Chloride Cancelled Carbon Dioxide Cancelled Anion Gap Cancelled BUN Cancelled Creatinine Cancelled Estim Creat Clear Calc Cancelled Est GFR (MDRD) Af Amer Cancelled Est GFR (MDRD) Non-Af Cancelled BUN/Creatinine Ratio Cancelled Glucose Cancelled Calcium Cancelled POC Glucose Microbiology 09/15/18 08:05 Urine Catheter - Benitez Urine Culture - Final Laila albicans 09/15/18 09:00 Blood Culture (Wb) - Anticubital Right Blood Culture - Preliminary No growth in 48 hours. 09/15/18 08:00 Blood Culture (Wb) - Right Hand Blood Culture - Preliminary No growth in 48 hours. Clinical Impression(s) from Imaging Studies Brain MRI 09/17/18 07:40 IMPRESSION: 1. Involutional changes of the brain, as described above. 2. Restricted diffusion in bilateral basal ganglia, left greater than right; left temporal lobe and bilateral cerebellar hemispheres maybe secondary to cytotoxic edema and recent seizure. Electronically Signed: Brandy Vizcarra MD at 11:19 EST , Service support , Medical Necessity - Tobacco Use Smoking Status: Never smoker Assessment/Plan All Active Problems (Last Reviewed 09/15/18 @ 10:01 by Donnie Perkins MD) Acute respiratory failure (Acute) Lactic acidosis (Acute) Acute on chronic renal failure (Acute) Status epilepticus (Acute) RECOMMENDATIONS: 1. Continue Keppra. 2. Antibiotics per primary service 3. Increase activity as tolerated 4. Wound nurse consultation for midline incision 5. Accu-Cheks with sliding scale insulin. 6. Hemodynamically stable on room air. Will sign off from a critical care perspective IMPRESSIONS: 1. Status epilepticus Patient with 20-30 minutes of seizure activity. EEG showed no seizure activity. Neurology is following. Patient's lactic acidosis normalized. Patient appears to be tolerating Keppra well. Patient was on cefepime and this may be leading to accumulation and decreased seizure threshold. MRI shows some generalized edema, likely secondary to status epilepticus. Patient's mental status is much improved compared to previous. 2. Acute hypoxic respiratory failure RESOLVED> patient noted to be 70s on room air on presentation. Patient did well on mechanical ventilation. Patient remains hemodynamically stable on room air. 3. Acute cystitis/DEMETRA on CKD 3 Patient currently on empiric Zosyn therapy. Await culture data. Patient does have a leukocytosis, but no fevers have been reported. Patient's creatinine was significantly elevated approximately 2 weeks ago. This has been improving prior to discharge. Patient's current creatinine is stable around 2 yesterday. Morning BMP is still pending. Unclear if this is a new baseline or patient needs to continue to previous baseline of 1.2-1.4 mg/dL. 4. Recent left colonic perforation Patient's postoperative course was complicated by wound dehiscence and infection. Patient has been treated with antibiotics in the past and has a wound VAC currently in place. Surgery was completed on July 27, 2018. Abdominal exam is relatively benign with a colostomy bag in good position. No signs superficially of infection. 5. Hypothyroidism/hyperlipidemia/COPD/chronic anemia/advanced age Complicates care, management, recovery and prognosis. Patient will continue with Accu-Cheks and sliding scale insulin. Code Visit Inpatient E&M: 90798 Subs Hosp L2
[2018-09-18] MEDS: Piperacil/Tazobactam 3.375 GM/50 ML ML IV ×2 (08:21→21:01)
[2018-09-18 08:48] LABS: International Normalized Ratio 1.5
[2018-09-18 08:57] LABS: Anion Gap 14 (5-15); BUN 16 mg/dL (7-18); BUN/Creat Ratio 8.6 RATIO (10-20); Calcium,Total 7.7 mg/dL (8.5-10.1); Chloride 114 mmol/L (98-107); Creatinine, Serum 1.85 mg/dL (0.55-1.02); EST Glomerular Filtration Rate 28 mL/min (>60); Est Glom Filt Rate - Afr Amer 34 mL/min (>60); Estimated Creatinine Clearance 20.59 ml/min; Glucose 161 mg/dL (74-106); Potassium 3.4 mmol/L (3.5-5.1); Sodium Level 144 mmol/L (136-145)
[2018-09-18] MEDS: levETIRAcetam 500 MG Tablet PO ×2 (10:13→21:02)
[2018-09-18] MEDS: Metoprolol Tartrate 25 MG Tablet PO ×2 (10:13→21:02)
[2018-09-18] MEDS: Aspirin 81 MG TAB.CHEW PO (10:13)
[2018-09-18] MEDS: Amiodarone 200 MG Tablet PO (10:13)
[2018-09-18] MEDS: Pantoprazole Sodium 40 MG Tablet PO ×2 (10:13→21:02)
[2018-09-18] MEDS: Levothyroxine 25 MCG TABLET PO (10:15)
[2018-09-18] MEDS: Senna Tablet 1 TABLET PO ×2 (10:15→21:06)
[2018-09-18 10:21] LABS: Bedside Glucose 145 mg/dL (70-110)
[2018-09-18 11:20] LABS: Bedside Glucose 216 mg/dL (70-110)
[2018-09-18] MEDS: Glucerna Shake 120 ML LIQUID PO ×2 (12:32→17:12)
--- NOTE | 2018-09-18 16:25 | NURSING ---
This nurse taking over care.
[2018-09-18 17:25] LABS: Bedside Glucose 289 mg/dL (70-110)
[2018-09-18] MEDS: Atorvastatin Calcium 20 MG Tablet PO (21:04)
[2018-09-18 21:15] LABS: Bedside Glucose 331 mg/dL (70-110)
[2018-09-19] VITALS (13 sets, daily range): BP systolic 105–156; BP diastolic 60–79; PULSE 58–63; RESP 17–20; TEMP 36.6–37.3; O2SAT 97–99
[2018-09-19] MEDS: Insulin Lispro 100 UNIT/ML INSULN.PEN SC ×3 (01:03→17:33)
[2018-09-19 06:39] LABS: Absolute Lymphocyte Count 1.02 X10^3/ul (0.83-4.51); Absolute Neutrophil Count 4.4 X10^3/uL (2.0-7.7); Basophil# 0.02 X10^3/uL; Basophil% 0.3 % (0-1); Eosinophil# 0.58 X10^3/uL; Eosinophils% 8.6 % (0-5); Hematocrit 26.5 % (37-47); Hemoglobin 8.7 g/dl (12.0-15.0); Lymphocyte # 1.02 X10^3/ul (4.0); Lymphocyte % 15.2 % (19-41); Mean Corp Hgb Conc 32.8 g/gl (32-36); Mean Corpuscular Hgb 31.1 pg (27.0-32.0); Mean Corpuscular Volume 94.6 fL (81-99); Mean Platelet Vol. 9.4 fl (6.2-12.0); Monocyte# 0.67 X10^3/uL; Neutrophil # 4.41 X10^3/uL (2.7-7.7); Neutrophil % 65.6 % (47-70); Platelet Count 229 K/mm3 (150-450); RBC Distribution Width CV 17.5 % (11.6-14.6); RBC Distribution Width SD 58.6 fl (35.1-43.9); White Blood Count 6.7 K/mm3 (4.4-11.0)
[2018-09-19 06:45] LABS: POSITIVE COUNT NO; POSITIVE DIFFERENTIAL NO; POSITIVE MORPHOLOGY NO
[2018-09-19] MEDS: Levothyroxine 25 MCG TABLET PO (06:49)
[2018-09-19 06:57] LABS: Anion Gap 8 (5-15); BUN 16 mg/dL (7-18); BUN/Creat Ratio 9.2 RATIO (10-20); Calcium,Total 7.5 mg/dL (8.5-10.1); Chloride 116 mmol/L (98-107); Creatinine, Serum 1.74 mg/dL (0.55-1.02); EST Glomerular Filtration Rate 30 mL/min (>60); Est Glom Filt Rate - Afr Amer 36 mL/min (>60); Glucose 127 mg/dL (74-106); Potassium 3.3 mmol/L (3.5-5.1); Sodium Level 144 mmol/L (136-145)
[2018-09-19 07:10] LABS: Bedside Glucose 112 mg/dL (70-110)
[2018-09-19] MEDS: Glucerna Shake 120 ML LIQUID PO ×2 (08:55→10:30)
[2018-09-19] MEDS: Aspirin 81 MG TAB.CHEW PO (08:56)
[2018-09-19] MEDS: Pantoprazole Sodium 40 MG Tablet PO ×2 (10:23→21:03)
[2018-09-19] MEDS: Metoprolol Tartrate 25 MG Tablet PO ×2 (10:23→21:03)
[2018-09-19] MEDS: levETIRAcetam 500 MG Tablet PO ×2 (10:23→21:03)
[2018-09-19] MEDS: Senna Tablet 1 TABLET PO ×2 (10:23→21:03)
[2018-09-19] MEDS: Amiodarone 200 MG Tablet PO (10:23)
--- NOTE | 2018-09-19 10:25 | PCM.PROGNOTE ---
Subjective: Chief complaint: Follow-up after admission for status epilepticus, acute hypoxic respiratory failure, acute kidney injury double stage III chronic kidney disease and acute cystitis. Patient seen and examined. No acute events overnight. Again, she remained confused and disoriented. According to [facility] staff [facility], patient has been intermittently confused and disoriented and sometimes oriented. She seemed to be at her baseline. She denied any significant complaints. She has been in the bed and not able to ambulate or go out of bed to chair. Her vital signs are stable. - Physical Exam General: Alert, Cooperative, No apparent distress, Confused, Disoriented HEENT: Atraumatic, PERRLA, EOMI, Normocephalic Oral: Moist Mucosa, No Gingival or Mucosal Lesions/ Ulcerations Neck: Supple, No JVD, Negative Carotid Bruits, Trachea Midline, Thyroid Normal Size and Texture Lungs: Clear to auscultation, No rhonchi, No wheeze, No rales, Diminished Cardiovascular: Regular rate, Regular Rhythm, Normal S1, Normal S2, PMI Normal Abdomen: Bowel Sounds Present, Soft, Non Tender, Non-Distended, No Hepato-splenomegaly Extremities: No clubbing, No cyanosis, No edema Skin: No rashes, No breakdown Lymphatic: No Cervical, Supraclavicular, or Inguinal Adenopathy Neurological: Cranial nerves II-XII grossly intact, Motor Exam 5/5 strength throughout Psych/Mental Status: Normal Affect, Appropriate Vital Signs Temp Pulse Resp BP Pulse Ox 98.3 F 62 18 156/79 H 99 09/19/18 08:43 09/19/18 08:43 09/19/18 08:43 09/19/18 08:43 09/19/18 08:43 Oxygen Flow Rate (L/min) 2 Oxygen Delivery Method Room Air Weight: 171 lb 1.259 oz Body Mass Index (BMI) 29.6 Intake and Output for Last 24 Hours 09/17/18 09/18/18 09/19/18 23:59 23:59 23:59 Intake Total 2388.4 / 2388.4 2007. / 2007. 64.5 / 64.5 Output Total 2625 / 2625 1400 / 1400 650 / 650 Balance -236.6 / -236.6 608.4 / 608.4 -585.5 / -585.5 Microbiology Past 72 Hours 09/15/18 08:05 Urine Culture - Final Urine Catheter - Benitez Laila albicans 09/15/18 09:00 Blood Culture - Preliminary Blood Culture (Wb) - Anticubital Right No growth in 48 hours. 09/15/18 08:00 Blood Culture - Preliminary Blood Culture (Wb) - Right Hand No growth in 48 hours. Laboratory Tests Past 24 Hrs 09/18/18 09/19/18 09/19/18 08:20 06:14 06:14 WBC 6.7 RBC 2.80 L Hgb 8.7 L Hct 26.5 L MCV 94.6 MCH 31.1 MCHC 32.8 RDW 17.5 H RDW Differential 58.6 H Plt Count 229 MPV 9.4 Immature Gran % (Auto) 0.300 Neut % (Auto) 65.6 Lymph % (Auto) 15.2 L [place] % (Auto) 10.0 Eos % (Auto) 8.6 H Baso % (Auto) 0.3 Absolute Neuts (auto) 4.4 Absolute Lymphs (auto) 1.02 Total Counted Not Reportable Sodium 144 Potassium 3.3 L Chloride 116 H Carbon Dioxide 20.0 L Anion Gap 8 BUN 16 Creatinine 1.74 H Estim Creat Clear Calc 21.90 Est GFR (MDRD) Af Amer 36 L Est GFR (MDRD) Non-Af 30 L BUN/Creatinine Ratio 9.2 L Glucose 127 H Calcium 7.5 L Blood Type O POSITIVE Antibody Screen NEGATIVE Crossmatch See Detail POC Glucose 09/19/18 09/18/18 09/18/18 07:07 20:59 17:10 POC Glucose 112 H 331 H 289 H 09/18/18 11:07 POC Glucose 216 H Medical Necessity - Tobacco Use Smoking Status: Never smoker Assessment/Plan All Active Problems (Last Reviewed 09/15/18 @ 10:01 by Donnie Perkins MD) Acute respiratory failure (Acute) Lactic acidosis (Acute) Acute on chronic renal failure (Acute) Status epilepticus (Acute) This is an 82 years old female patient [facility] emergency [facility] because of status epilepticus, found to have lactic acidosis which is attributed to continuous seizure, found to have acute kidney injury on top of stage III chronic kidney disease as well as acute cystitis, was intubated for airway protection. #1 status epilepticus: She is on oral Keppra. She had no more seizures since admission. Vital signs remained stable. MRI brain done yesterday and revealed no acute findings, no hemorrhage or infarction, revealed findings possibly due to cytotoxic edema secondary to recent seizure.the seizure could be due to old stroke. Neurology on the case. Patient has been weak, bedbound since she came out of the ICU. Plan: Continue same treatment, out of bed to chair, PT OT evaluation and treatment, possible DC back to [facility] tomorrow morning. #2 acute respiratory failure: Status post extubation, resolved . This was done for protection of her airway. Pulse ox has been maintained on room air. #3 lactic acidosis: Attributed to status epilepticus. Lactic acid came down to normal. Acute cystitis also could be contributing. She is on day 4 of IV Zosyn. Vital signs are stable, remained afebrile. Blood cultures showed no growth in 48 hours. Urine culture revealed Laila albicans. Plan to DC Zosyn today. #4 acute cystitis: On IV Zosyn empirically. She has been afebrile, vital cell count is back to normal. Urine culture revealed Laila albicans. Blood culture showed no growth in 48 hours as above. Plan as above #5 acute kidney injury on top of stage III chronic kidney disease: Baseline creatinine has been around 1.2-1.4 mg/dL. Today's creatinine is 1.74, continue to improve slowly. #6 recent history of left colonic perforation: Status post exploratory laparotomy, left colon resection and colostomy. Postoperative course complicated by wound dehiscence and infection, status post treatment with antibiotics and wound VAC insertion. Surgery was done on July 27, 2018. Abdominal examination is benign. Colostomy bag in place, no stool in it. Wound VAC is inserted to the midline surgical scar/wound. No significant erythema or swelling around the surgical incision/wound. #7 Acute on chronic chronic anemia: It is normocytic anemia secondary to anemia of chronic disease. Baseline hemoglobin has been around 8-9 g/dL. Admission hemoglobin is 9.7 g/dL, today's hemoglobin is 8.7 g/dL after she received 1 unit of packed RBCs. No evidence of active bleeding. Plan to repeat CBC tomorrow morning. #8 type 2 diabetes mellitus: She is on a diet, started back on her Lantus insulin twice daily and continued on sliding scale. Blood sugar still fluctuating significantly. #9 hypothyroidism: Continue levothyroxine. #10 hyperlipidemia: She is not on any statins. 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 No acute CHF. Continue aspirin, statins, amiodarone and metoprolol. #12 COPD: Status post extubation. Respiratory status stabilized. Pulse ox is maintained on room air. #13 CODE STATUS: DNR CCA. This note was generated with [employer] dictation software. It may contain incorrect words, spelling, and punctuation that were not noted in checking the note before signing. Code Visit Inpatient E&M: 99973 Subs Hosp L2
[2018-09-19] MEDS: Piperacil/Tazobactam 3.375 GM/50 ML ML IV (10:30)
--- NOTE | 2018-09-19 10:32 | PN_ITS ---
Subjective: Chief complaint: Follow-up after admission for status epilepticus, acute hypoxic respiratory failure, acute kidney injury double stage III chronic kidney disease and acute cystitis. Patient seen and examined. No acute events overnight. Again, she remained confused and disoriented. According to [facility] staff [facility], patient has been intermittently confused and disoriented and sometimes oriented. She seemed to be at her baseline. She denied any significant complaints. She has been in the bed and not able to ambulate or go out of bed to chair. Her vital signs are stable. - Physical Exam General: Alert, Cooperative, No apparent distress, Confused, Disoriented HEENT: Atraumatic, PERRLA, EOMI, Normocephalic Oral: Moist Mucosa, No Gingival or Mucosal Lesions/ Ulcerations Neck: Supple, No JVD, Negative Carotid Bruits, Trachea Midline, Thyroid Normal Size and Texture Lungs: Clear to auscultation, No rhonchi, No wheeze, No rales, Diminished Cardiovascular: Regular rate, Regular Rhythm, Normal S1, Normal S2, PMI Normal Abdomen: Bowel Sounds Present, Soft, Non Tender, Non-Distended, No Hepato- splenomegaly Extremities: No clubbing, No cyanosis, No edema Skin: No rashes, No breakdown Lymphatic: No Cervical, Supraclavicular, or Inguinal Adenopathy Neurological: Cranial nerves II-XII grossly intact, Motor Exam 5/5 strength throughout Psych/Mental Status: Normal Affect, Appropriate Vital Signs Temp Pulse Resp BP Pulse Ox 98.3 F 62 18 156/79 H 99 09/19/18 08:43 09/19/18 08:43 09/19/18 08:43 09/19/18 08:43 09/19/18 08:43 Oxygen Flow Rate (L/min) 2 Oxygen Delivery Method Room Air Weight: 171 lb 1.259 oz Body Mass Index (BMI) 29.6 Intake and Output for Last 24 Hours 09/17/18 09/18/18 09/19/18 23:59 23:59 23:59 Intake Total 2388.4 / 2388.4 2007. / 2007. 64.5 / 64.5 Output Total 2625 / 2625 1400 / 1400 650 / 650 Balance -236.6 / -236.6 608.4 / 608.4 -585.5 / -585.5 Microbiology Past 72 Hours 09/15/18 08:05 Urine Culture - Final Urine Catheter - Benitez Laila albicans 09/15/18 09:00 Blood Culture - Preliminary Blood Culture (Wb) - Anticubital Right No growth in 48 hours. 09/15/18 08:00 Blood Culture - Preliminary Blood Culture (Wb) - Right Hand No growth in 48 hours. Laboratory Tests Past 24 Hrs 09/18/18 09/19/18 09/19/18 08:20 06:14 06:14 WBC 6.7 RBC 2.80 L Hgb 8.7 L Hct 26.5 L MCV 94.6 MCH 31.1 MCHC 32.8 RDW 17.5 H RDW Differential 58.6 H Plt Count 229 MPV 9.4 Immature Gran % (Auto) 0.300 Neut % (Auto) 65.6 Lymph % (Auto) 15.2 L [place] % (Auto) 10.0 Eos % (Auto) 8.6 H Baso % (Auto) 0.3 Absolute Neuts (auto) 4.4 Absolute Lymphs (auto) 1.02 Total Counted Not Reportable Sodium 144 Potassium 3.3 L Chloride 116 H Carbon Dioxide 20.0 L Anion Gap 8 BUN 16 Creatinine 1.74 H Estim Creat Clear Calc 21.90 Est GFR (MDRD) Af Amer 36 L Est GFR (MDRD) Non-Af 30 L BUN/Creatinine Ratio 9.2 L Glucose 127 H Calcium 7.5 L Blood Type O POSITIVE Antibody Screen NEGATIVE Crossmatch See Detail POC Glucose 09/19/18 09/18/18 09/18/18 07:07 20:59 17:10 POC Glucose 112 H 331 H 289 H 09/18/18 11:07 POC Glucose 216 H Medical Necessity - Tobacco Use Smoking Status: Never smoker Assessment/Plan All Active Problems (Last Reviewed 09/15/18 @ 10:01 by Donnie Perkins MD) Acute respiratory failure (Acute) Lactic acidosis (Acute) Acute on chronic renal failure (Acute) Status epilepticus (Acute) This is an 82 years old female patient [facility] because of status epilepticus, found to have lactic acidosis which is attributed to continuous seizure, found to have acute kidney injury on top of stage III chronic kidney disease as well as acute cystitis, was intubated for airway protection. #1 status epilepticus: She is on oral Keppra. She had no more seizures since admission. Vital signs remained stable. MRI brain done yesterday and revealed no acute findings, no hemorrhage or infarction, revealed findings possibly due to cytotoxic edema secondary to recent seizure.the seizure could be due to old stroke. Neurology on the case. Patient has been weak, bedbound since she came out of the ICU. Plan: Continue same treatment, out of bed to chair, PT OT evaluation and treatment, possible DC back to [facility] tomorrow morning. #2 acute respiratory failure: Status post extubation, resolved . This was done for protection of her airway. Pulse ox has been maintained on room air. #3 lactic acidosis: Attributed to status epilepticus. Lactic acid came down to normal. Acute cystitis also could be contributing. She is on day 4 of IV Zosyn. Vital signs are stable, remained afebrile. Blood cultures showed no growth in 48 hours. Urine culture revealed Laila albicans. Plan to DC Zosyn today. #4 acute cystitis: On IV Zosyn empirically. She has been afebrile, vital cell count is back to normal. Urine culture revealed Laila albicans. Blood culture showed no growth in 48 hours as above. Plan as above #5 acute kidney injury on top of stage III chronic kidney disease: Baseline creatinine has been around 1.2-1.4 mg/dL. Today's creatinine is 1.74, continue to improve slowly. #6 recent history of left colonic perforation: Status post exploratory laparotomy, left colon resection and colostomy. Postoperative course complicated by wound dehiscence and infection, status post treatment with antibiotics and wound VAC insertion. Surgery was done on July 27, 2018. Abdominal examination is benign. Colostomy bag in place, no stool in it. Wound VAC is inserted to the midline surgical scar/wound. No significant erythema or swelling around the surgical incision/wound. #7 Acute on chronic chronic anemia: It is normocytic anemia secondary to anemia of chronic disease. Baseline hemoglobin has been around 8-9 g/dL. Admission hemoglobin is 9.7 g/dL, today's hemoglobin is 8.7 g/dL after she received 1 unit of packed RBCs. No evidence of active bleeding. Plan to repeat CBC tomorrow morning. #8 type 2 diabetes mellitus: She is on a diet, started back on her Lantus insulin twice daily and continued on sliding scale. Blood sugar still fluctuating significantly. #9 hypothyroidism: Continue levothyroxine. #10 hyperlipidemia: She is not on any statins. 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 No acute CHF. Continue aspirin, statins, amiodarone and metoprolol. #12 COPD: Status post extubation. Respiratory status stabilized. Pulse ox is maintained on room air. #13 CODE STATUS: DNR CCA. This note was generated with [employer] dictation software. It may contain incorrect words, spelling, and punctuation that were not noted in checking the note before signing. Code Visit Inpatient E&M: 34762 Subs Hosp L2
[2018-09-19] MEDS: 0.9% NaCl Peripheral Flush Adult/Peds IV (10:37)
[2018-09-19] MEDS: Heparin Injection (Vial) 5,000 UNIT/ML VIAL 5000 UNIT SC ×2 (10:45→21:08)
[2018-09-19 11:06] LABS: Bedside Glucose 172 mg/dL (70-110)
[2018-09-19 17:40] LABS: Bedside Glucose 233 mg/dL (70-110)
[2018-09-19] MEDS: Atorvastatin Calcium 20 MG Tablet PO (21:03)
[2018-09-20 00:25] LABS: Bedside Glucose 137 mg/dL (70-110)
[2018-09-20 02:43] VITALS: BP 136/77; PULSE 60; RESP 18; TEMP 37; O2SAT 97
[2018-09-20 03:28] VITALS: PULSE 58
[2018-09-20 05:39] LABS: Absolute Lymphocyte Count 1.17 X10^3/ul (0.83-4.51); Absolute Neutrophil Count 4.4 X10^3/uL (2.0-7.7); Basophil# 0.02 X10^3/uL; Basophil% 0.3 % (0-1); Eosinophil# 0.75 X10^3/uL; Eosinophils% 11.1 % (0-5); Hematocrit 29.5 % (37-47); Hemoglobin 9.6 g/dl (12.0-15.0); Lymphocyte # 1.17 X10^3/ul (4.0); Lymphocyte % 17.3 % (19-41); Mean Corp Hgb Conc 32.5 g/gl (32-36); Mean Corpuscular Volume 95.2 fL (81-99); Mean Platelet Vol. 9.2 fl (6.2-12.0); Monocyte# 0.48 X10^3/uL; Monocyte% 7.1 % (0-10); Neutrophil # 4.35 X10^3/uL (2.7-7.7); Neutrophil % 64.1 % (47-70); Platelet Count 230 K/mm3 (150-450); RBC Distribution Width CV 17.6 % (11.6-14.6); RBC Distribution Width SD 60.8 fl (35.1-43.9); White Blood Count 6.8 K/mm3 (4.4-11.0)
[2018-09-20] MEDS: Levothyroxine 25 MCG TABLET PO (05:44)
[2018-09-20 05:46] LABS: POSITIVE COUNT NO; POSITIVE DIFFERENTIAL NO; POSITIVE MORPHOLOGY NO
[2018-09-20 06:06] LABS: Anion Gap 10 (5-15); BUN 14 mg/dL (7-18); BUN/Creat Ratio 8.4 RATIO (10-20); Chloride 116 mmol/L (98-107); Creatinine, Serum 1.67 mg/dL (0.55-1.02); EST Glomerular Filtration Rate 31 mL/min (>60); Est Glom Filt Rate - Afr Amer 38 mL/min (>60); Estimated Creatinine Clearance 22.81 ml/min; Glucose 90 mg/dL (74-106); Potassium 3.8 mmol/L (3.5-5.1); Sodium Level 145 mmol/L (136-145)
[2018-09-20 07:05] LABS: Bedside Glucose 98 mg/dL (70-110)
[2018-09-20 07:16] VITALS: PULSE 60
[2018-09-20 09:20] VITALS: BP 175/82; PULSE 99; RESP 17; TEMP 37.1; O2SAT 97
[2018-09-20] MEDS: Glucerna Shake 120 ML LIQUID PO (09:27)
[2018-09-20] MEDS: Aspirin 81 MG TAB.CHEW PO (09:27)
[2018-09-20] MEDS: Pantoprazole Sodium 40 MG Tablet PO (09:27)
[2018-09-20 09:28] VITALS: BP 175/82; PULSE 99
[2018-09-20] MEDS: Menthol/Lanolin/Calamine/Znox 113 GM Tube 1 APPLIC TOPICAL (09:28)
[2018-09-20] MEDS: levETIRAcetam 500 MG Tablet PO (09:28)
[2018-09-20] MEDS: Amiodarone 200 MG Tablet PO (09:28)
[2018-09-20] MEDS: Metoprolol Tartrate 25 MG Tablet PO (09:28)
[2018-09-20] MEDS: Senna Tablet 1 TABLET PO (09:28)
--- NOTE | 2018-09-20 09:35 | TREXTCAR_ITS ---
- Diet 09/17/18 12:14 Diet: Regular Diet Food consistency:: Puree Liquid Consistency:: [place] Thick Dietary Modifications:: Pureed Diet [place] Thick Liquids Is pt able to select menu?: No Diet Comments: TOTAL FEED via SPOON; seated upright at 90 degrees - Routine Orders/Code Status Suppository Type: Dulcolax 10mg Routine Lab Work: CBC - On 09/22/2018 and then weekly, BMP - On 09/22/2018 and then weekly Code Status: DNRCC-A - Wound(s) mid abdomen Wound Type: Surgical Incision Dressing Change: [facility] wound VAC - Therapies Weight Bearing: Weight bearing as tolerated Extremity Affected:: Bilateral Lower Physical Therapy: Eval and Treat Occupational Therapy: Eval and Treat Speech Therapy: Eval and Treat - Allergies/Procedures Done in Hospital Allergies/Adverse Reactions: Allergies codeine Allergy (Severe, Verified 09/15/18 07:48) HEART ATTACK levofloxacin [From Levaquin] Allergy (Severe, Verified 09/15/18 07:48) Anaphylaxis Sulfa (Sulfonamide Antibiotics) Allergy (Unknown, Verified 09/15/18 07:48) Unknown adhesive tape Allergy (Verified 09/15/18 07:48) Other citalopram Allergy (Verified 09/15/18 07:48) Unknown Latex, Natural Rubber Allergy (Verified 09/15/18 07:48) Rash Penicillins Allergy (Verified 09/15/18 07:48) Rash acetaminophen [From Vicodin] Adverse Reaction (Verified 09/15/18 07:48) Chest tightness hydrocodone bitartrate [From Vicodin] Adverse Reaction (Verified 09/15/18 07:48) Chest tightness - Type of Care/Length of Stay Estimated LOS: More Than 30 Days Type of Care Needed: Skilled Rehab Potential: Fair Prognosis: Fair - Additional Orders/Day of Discharge Day of Discharge: 09/20/18 - Dietary and Speech Recommendations Dietitian Recommendations/Changes: Rec adv diet as tolerated to regular- consistency per [employer]. Will provide ONS w/ meals and medpass pending diet advancement. - Follow Up Care Primary Care Physician: Clement Vizcarra MD [Primary Care Provider] - Please follow up with your Primary Care Physician in: in 1-2 week
--- NOTE | 2018-09-20 09:35 | PCM.DC.SUM ---
Discharge Date and Diagnosis Date of Admission: 09/15/18 Date of Discharge: 09/20/18 - Primary Discharge Diagnosis Status epilepticus: Resolved - Secondary Discharge Diagnosis Chronic Problems (Last Reviewed 09/15/18 @ 10:01 by Donnie Perkins MD) Status post colostomy (Chronic) History of left colon perforation (Chronic) GERD (gastroesophageal reflux disease) (Chronic) Dysphagia (Chronic) 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 Non-healing surgical wound (Chronic) Wound dehiscence, surgical (Chronic) Takotsubo cardiomyopathy (Chronic) Nonrheumatic tricuspid (valve) insufficiency (Chronic) Atherosclerotic heart disease of [place] coronary artery without angina pectoris (Chronic) Mild Hypothyroidism (Chronic) COPD (chronic obstructive pulmonary disease) (Chronic) Hyperlipidemia (Chronic) Type 2 diabetes mellitus (Chronic) Hospital Course and Treatment Consultations 09/15/18 10:37 Consult: Onc/Wound/well logging operator mud analysis Routine Comment: Operations: None Summary of Care Provided: [] This is an 82 years old female patient presented to the emergency room from detention because of status epilepticus, found to have lactic acidosis which is attributed to continuous seizure, found to have acute kidney injury on top of stage III chronic kidney disease as well as acute cystitis, was intubated for airway protection. #1 status epilepticus: She is on oral Keppra. She had no more seizures since admission. Vital signs remained stable. MRI brain was done and showed no acute ischemia, no hemorrhage or infarction, but restricted diffusion in bilateral basal ganglia, left greater than right, left temporal lobe and bilateral cerebellar hemispheres possibly due to cytotoxic edema secondary to recent seizure. the seizure could be due to old stroke. The patient was seen by the neurologist. Patient has been weak, bedbound since she came out of the ICU. Patient was seen and evaluated by PT and OT and recommended SNF. Patient was discharged to SNF. #2 acute respiratory failure: Status post extubation, resolved . This was done for protection of her airway. Pulse ox has been maintained on room air. #3 lactic acidosis: Attributed to status epilepticus. Lactic acid came down to normal. Acute cystitis also could be contributing. She is on day 4 of IV Zosyn. Vital signs are stable, remained afebrile. Blood cultures showed no growth in 48 hours. Urine culture revealed Laila albicans. Plan to DC Zosyn today. #4 Acute Laila albicans/fungal cystitis or lower UTI: Initially patient was treated with IV Zosyn empirically. She has been afebrile, vital cell count is back to normal. Urine culture revealed Laila albicans. Blood culture showed no growth in 48 hours as above. The antibiotic was discontinued. Patient started on Diflucan 100 mg daily for 7 days based on lower creatinine clearance 22 mill per minute. #5 acute kidney injury on top of stage III chronic kidney disease; gradually improving: Baseline creatinine has been around 1.2-1.4 mg/dL. Creatinine improved gradually 1.74, 1.67 with estimated 22 mL/min. Needs repeat BMP monitoring in SNF, next on 09/22/2018. Follow-up with PCP #6 recent history of left colonic perforation: Status post exploratory laparotomy, left colon resection and colostomy. Postoperative course complicated by wound dehiscence and infection, status post treatment with antibiotics and wound VAC insertion. Surgery was done on July 27, 2018. Abdominal examination is benign. Wound VAC is inserted to the midline surgical scar/wound. Patient had Zosyn for 4 days. Semisolid stool in colostomy bag. No significant erythema or swelling around the surgical incision/wound. Wound nurse to further monitor in SNF #7 Acute on chronic chronic anemia: It is normocytic anemia secondary to anemia of chronic disease. Baseline hemoglobin has been around 8-9 g/dL. Admission hemoglobin is 9.7 g/dL, today's hemoglobin is 8.7 g/dL after she received 1 unit of packed RBCs. No evidence of active bleeding. Hemoglobin 9.6 today. #8 type 2 diabetes mellitus: She is on a diet, started back on her Lantus insulin twice daily and continued on sliding scale. Blood sugar is controlled. #9 hypothyroidism: Continue levothyroxine. #10 hyperlipidemia: She is not on any statins. 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 No acute CHF. Continue aspirin, statins, amiodarone and metoprolol. #12 COPD: Status post extubation. Respiratory status stabilized. Pulse ox is maintained on room air. #13 CODE STATUS: DNR CCA. Discharge medication reconciliation done. Patient to follow with PCP in 1-2 weeks. Multiple comorbidities complicates the present care and expect difficult and delay recovery. Discharge follow-up instructions completed. Total time spent, exact 35 minutes on discharge meds reconciliation, examination, review of imaging and blood test and discussion with the patient on follow-up instructions. Microbiology Past 72 Hours 09/15/18 09:00 Blood Culture (Wb) - Anticubital Right Blood Culture - Final No growth in 5 days. 09/15/18 08:00 Blood Culture (Wb) - Right Hand Blood Culture - Final No growth in 5 days. 09/15/18 08:05 Urine Catheter - Benitez Urine Culture - Final Laila albicans Laboratory Results 09/19/18 16:27: POC Glucose 233 H 09/19/18 21:01: POC Glucose 137 H 09/20/18 05:20: WBC 6.8, RBC 3.10 L, Hgb 9.6 L, Hct 29.5 L, MCV 95.2, MCH 31.0, MCHC 32.5, RDW 17.6 H, RDW Differential 60.8 H, Plt Count 230, MPV 9.2, Immature Gran % (Auto) 0.100, Neut % (Auto) 64.1, Lymph % (Auto) 17.3 L, [place] % (Auto) 7.1, Eos % (Auto) 11.1 H, Baso % (Auto) 0.3, Absolute Neuts (auto) 4.4, Absolute Lymphs (auto) 1.17, Total Counted Not Reportable 09/20/18 05:20: Sodium 145, Potassium 3.8, Chloride 116 H, Carbon Dioxide 19.0 L, Anion Gap 10, BUN 14, Creatinine 1.67 H, Estim Creat Clear Calc 22.81, Est GFR (MDRD) Af Amer 38 L, Est GFR (MDRD) Non-Af 31 L, BUN/Creatinine Ratio 8.4 L, Glucose 90, Calcium 8.0 L 09/20/18 06:52: POC Glucose 98 Clinical Impression(s) from Imaging Studies Brain CT 09/15/18 08:01 IMPRESSION: 1. Chronic involutional changes of the brain. 2. No CT evidence of acute intracranial hemorrhage. 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 5. Bilateral mild mastoid disease. Brain MRI 09/17/18 07:40 IMPRESSION: 1. Involutional changes of the brain, as described above. 2. Restricted diffusion in bilateral basal ganglia, left greater than right; left temporal lobe and bilateral cerebellar hemispheres maybe secondary to cytotoxic edema and recent seizure. - Physical Exam General: Alert, Oriented x3, Cooperative HEENT: Atraumatic, PERRLA, EOMI, Normocephalic Neck: Supple, No JVD, Negative Carotid Bruits Lungs: Clear to auscultation, No rhonchi, No wheeze, No rales, Diminished - Air entry diminished in bilateral lung bases Cardiovascular: Regular rate, Regular Rhythm, Normal S1, Normal S2, No murmurs Abdomen: Bowel Sounds Present, Soft, Non Tender, Non-Distended, - - Colostomy bag contains semisolid yellow stool Extremities: No edema, Capillary Refill Less than 3 Seconds Skin: No rashes, No breakdown Musculoskeletal: No Tenderness to Palpation of Joints or Extremities, Arthritic Changes, Muscle Wasting Neurological: Cranial nerves II-XII grossly intact, Deep Tendon Reflexes 2+/4 and Symmetrical, Neuro grossly intact Psych/Mental Status: Normal Affect, Appropriate Vital Signs Temp Pulse Resp BP Pulse Ox 98.7 F 99 17 175/82 H 97 09/20/18 09:20 09/20/18 09:28 09/20/18 09:20 09/20/18 09:28 09/20/18 09:20 Oxygen Flow Rate (L/min) 2 Oxygen Delivery Method Room Air Weight: 171 lb 1.259 oz Body Mass Index (BMI) 29.6 Intake and Output for Last 24 Hours 09/18/18 09/19/18 09/20/18 23:59 23:59 23:59 Intake Total 2008.4 / 2008.4 527.4 / 527.4 Output Total 1400 / 1400 1150 / 1150 75 / 75 Balance 608.4 / 608.4 -622.6 / -622.6 -75 / -75 Microbiology Past 72 Hours 09/15/18 08:05 Urine Culture - Final Urine Catheter - Benitez Laila albicans 09/15/18 09:00 Blood Culture - Preliminary Blood Culture (Wb) - Anticubital Right No growth in 48 hours. 09/15/18 08:00 Blood Culture - Preliminary Blood Culture (Wb) - Right Hand No growth in 48 hours. Laboratory Tests Past 24 Hrs 09/20/18 09/20/18 05:20 05:20 WBC 6.8 RBC 3.10 L Hgb 9.6 L Hct 29.5 L MCV 95.2 MCH 31.0 MCHC 32.5 RDW 17.6 H RDW Differential 60.8 H Plt Count 230 MPV 9.2 Immature Gran % (Auto) 0.100 Neut % (Auto) 64.1 Lymph % (Auto) 17.3 L [place] % (Auto) 7.1 Eos % (Auto) 11.1 H Baso % (Auto) 0.3 Absolute Neuts (auto) 4.4 Absolute Lymphs (auto) 1.17 Total Counted Not Reportable Sodium 145 Potassium 3.8 Chloride 116 H Carbon Dioxide 19.0 L Anion Gap 10 BUN 14 Creatinine 1.67 H Estim Creat Clear Calc 22.81 Est GFR (MDRD) Af Amer 38 L Est GFR (MDRD) Non-Af 31 L BUN/Creatinine Ratio 8.4 L Glucose 90 Calcium 8.0 L POC Glucose 09/20/18 09/19/18 09/19/18 06:52 21:01 16:27 POC Glucose 98 137 H 233 H 09/19/18 10:44 POC Glucose 172 H Home Medications: Medications to take at Discharge Amiodarone HCl [Cordarone] 200 mg PO DAILY 09/15/18 Argin/Glut/Cahmb/Collag/Mv-Min [Harsha Packet] 1 each PO BID 09/15/18 Aspirin [Aspirin, Baby] 81 mg PO DAILY@0800 09/15/18 Atorvastatin Calcium [Lipitor] 20 mg PO QHS 09/15/18 Cholecalciferol (Vitamin D3) [Vitamin D3] 1,000 unit PO DAILY 09/15/18 Cyanocobalamin [Vitamin B12] 500 mcg PO DAILY@0800 09/15/18 Fluticasone/Vilanterol [Breo Ellipta 200-25 Mcg INH] 1 each IH DAILY 09/15/18 Insulin Aspart [Novolog Flexpen] See Protocol SC UD 09/15/18 Levothyroxine [Synthroid] 25 mcg PO DAILY 09/15/18 Megestrol Acetate 400 mg PO DAILY 09/15/18 Metoprolol Tartrate [Lopressor (beta katty)] 25 mg PO BID 09/15/18 Mirtazapine [Remeron] 15 mg PO QHS 09/15/18 Nut.tx.gluc Intol,Lf,Soy/Fiber [Boost Glucose Control Liquid] 120 ml PO 4X/DAY 09/15/18 Fluconazole [Diflucan] 100 mg PO DAILY #7 tab 09/20/18 Insulin Glargine,Hum.rec.anlog [Lantus Solostar] 15 unit SQ BID #0 09/20/18 Insulin Lispro [Humalog KwikPen] See Protocol SC ACHS insuln.pen 09/20/18 Menthol/Lanolin/Calamine/Znox [Calmoseptine Ointment] 1 applic TOPICAL BID tube 09/20/18 Pantoprazole Sodium [Protonix] 40 mg PO DAILY #0 09/20/18 Potassium Chloride [K-Dur] 20 meq PO BIDCM tablet 09/20/18 Sennosides [Senna] 8.6 mg PO BID PRN PRN #1 09/20/18 levETIRAcetam tablet [Keppra tablet] 500 mg PO BID tablet 09/20/18 Following Prescrptions Were Given to Patient: Fluconazole [Diflucan] 100 mg PO DAILY #7 tab Primary Care Physician: Clement Vizcarra MD [Primary Care Provider] - Please follow up with your Primary Care Physician in: in 1-2 week Medical Necessity - Tobacco Use Smoking Status: Never smoker Meaningful Use Info Meaningful Use Diagnoses (Choose all that apply): None applicable Code Visit Inpatient E&M: 22888 Disch Hosp
[2018-09-20] MEDS: Heparin Injection (Vial) 5,000 UNIT/ML VIAL 5000 UNIT SC (09:36)
--- NOTE | 2018-09-20 09:54 | CASEMGMT ---
Patient is ready for d/c back to [facility]. Faxed orders to [facility]. PHILLIP called [facility] and arranged for patient to get picked up at 11am via cot. PHILLIP called patient's daughter, Arabella and let her know. PHILLIP also left a message for Stella at [facility]. RN, clerical secretary, and JUSTICE COURT DEPUTY CLERK notified. Plan: d/c back to [facility] under skilled level of care. [facility] transported via cot. Marisel WHITE MSW
--- NOTE | 2018-09-20 11:02 | NURSING ---
REPORT CALLED TO [facility]
== END 2018-09-20 11:11 | disposition skilled nursing facility (03) | DRG 100 ==
LOC: ED 09:08 → ICU 09:55 → PCU 09-17 14:40
PROVIDERS: Internal Medicine Critical Care Medicine; Admitting Provider Hospitalist; Emergency Provider Emergency Medicine; Family Provider Family Medicine; PCP Family Medicine; Visit Provider Internal Medicine
DX: G40.901 Epilepsy, unspecified, not intractable, with status epilepticus (principal); J96.01 Acute respiratory failure with hypoxia; E87.2 Acidosis; N17.9 Acute kidney failure, unspecified; B37.41 Candidal cystitis and urethritis; T81.31XA Disruption of external operation (surgical) wound, not elsewhere classified, initial encounter; I51.81 Takotsubo syndrome; E11.22 Type 2 diabetes mellitus with diabetic chronic kidney disease; N18.3 Chronic kidney disease, stage 3 (moderate); D63.8 Anemia in other chronic diseases classified elsewhere; Z93.3 Colostomy status; E03.9 Hypothyroidism, unspecified; Z90.49 Acquired absence of other specified parts of digestive tract; Z66 Do not resuscitate; K21.9 Gastro-esophageal reflux disease without esophagitis; E78.5 Hyperlipidemia, unspecified; Z79.4 Long term (current) use of insulin; J44.9 Chronic obstructive pulmonary disease, unspecified; R13.10 Dysphagia, unspecified; I25.10 Atherosclerotic heart disease of native coronary artery without angina pectoris; I36.1 Nonrheumatic tricuspid (valve) insufficiency
CPT/HCPCS: 31500; 31720; 36415; 36600; 51702; 70450; 70551; 71045; 80048; 80053; 80307; 80320; 81001; 82803; 82962; 83605; 83690; 84484; 85025; 85610; 85730; 86850; 86900; 86920; 86922; 87040; 87086; 87088; 92526; 93005; 94002; 94003; 94660; 95819; 95831; 97110; 97163; 97165; 97530; 97802; 99251; 99285; J7030; J7040; P9016; A4216; G0463; G0480; J0696; J3490

== ENCOUNTER → 2018-10-18 05:50 | Outpatient (REF) | payer MEDICARE, OTHER, SELFPAY ==
[2018-10-13 11:00] VITALS: BMI 29.6
[2018-10-18 08:42] LABS: Hematocrit 32.2 % (37-47); Hemoglobin 10.5 g/dl (12.0-15.0); Mean Corp Hgb Conc 32.6 g/gl (32-36); Mean Corpuscular Hgb 32.2 pg (27.0-32.0); Mean Corpuscular Volume 98.8 fL (81-99); Mean Platelet Vol. 10.4 fl (6.2-12.0); Platelet Count 214 K/mm3 (150-450); RBC Distribution Width CV 16.6 % (11.6-14.6); RBC Distribution Width SD 57.3 fl (35.1-43.9); Red Blood Count 3.26 M/mm3 (4.2-5.4); White Blood Count 8.6 K/mm3 (4.4-11.0)
[2018-10-18 08:44] LABS: Scan Indicated on CBC? Y/N NO
[2018-10-18 08:54] LABS: Anion Gap 11 (5-15); BUN 47 mg/dL (7-18); BUN/Creat Ratio 35.6 RATIO (10-20); Calcium,Total 9.1 mg/dL (8.5-10.1); Chloride 111 mmol/L (98-107); Creatinine, Serum 1.32 mg/dL (0.55-1.02); EST Glomerular Filtration Rate 41 mL/min (>60); Est Glom Filt Rate - Afr Amer 50 mL/min (>60); Glucose 301 mg/dL (74-106); Potassium 4.8 mmol/L (3.5-5.1); Sodium Level 144 mmol/L (136-145)
--- OUTSIDE RECORDS SUMMARY | 2019-01-19 19:28 | XMS RPT_ITS ---
:1935 Author Organization OHIP Support Name Relationship Address Phone ARABELLA LÓPEZ Unavailable [address] + [place] [address] R Unavailable Unavailable Unavailable KINGSLEY, LOU Unavailable [address] + [place] [address] ARABELLA LÓPEZ Unavailable [address] + [facility] [place] [address] R Unavailable Unavailable Unavailable KINGSLEY, LOU Unavailable [address] + [place] [address] ARABELLA LÓPEZ Unavailable [address] + [place] [address] R Unavailable Unavailable Unavailable KINGSLEY, LOU Unavailable [address] + [place] [address] ARABELLA LÓPEZ Unavailable [address] + [place] [place] [address] R Unavailable Unavailable Unavailable KINGSLEY, LOU Unavailable [address] + [place] [address] ARABELLA LÓPEZ Unavailable [address] + [place] [place] [address] R Unavailable Unavailable Unavailable KINGSLEY, LOU Unavailable [address] + [place] [address] ARABELLA LÓPEZ Unavailable [address] + [place] [place] [address] R Unavailable Unavailable Unavailable KINGSLEY, LOU Unavailable [address] + [place] [address] ARABELLA LÓPEZ Unavailable [address] + [place] [address] R Unavailable Unavailable Unavailable KINGSLEY, LOU Unavailable [address] + [place] [address] ARABELLA LÓPEZ Unavailable [address] + [place] [address] R Unavailable Unavailable Unavailable KINGSLEY, LOU Unavailable [address] + [place] [address] JACK LÓPEZDY Unavailable [address] + [place] [address] R Unavailable Unavailable Unavailable KINGSLEY, LOU Unavailable [address] + [place] [address] JACK LÓPEZDY Unavailable [address] + [place] [address] R Unavailable Unavailable Unavailable KINGSLEY, LOU Unavailable [address] + [place] [address] ARABELLA LÓPEZ Unavailable [address] + [place] [address] R Unavailable Unavailable Unavailable KINGSLEY, LOU Unavailable [address] + [place] [address] ARABELLA LÓPEZ Unavailable [address] + [place] [address] R Unavailable Unavailable Unavailable KINGSLEY, LOU Unavailable [address] + [place] [address] ARABELLA LÓPEZ Unavailable [address] + [place] [address] R Unavailable Unavailable Unavailable KINGSLEY, LOU Unavailable [address] + [place] [address] ARABELLA LÓPEZ Unavailable [address] + [place] [address] R Unavailable Unavailable Unavailable KINGSLEY, LOU Unavailable [address] + [place] [address] ARABELLA LÓPEZ Unavailable [address] + [place] [address] R Unavailable Unavailable Unavailable KINGSLEY, LOU Unavailable [address] + [place] [address] JACK LÓPEZDY Unavailable [address] + [place] [address] R Unavailable Unavailable Unavailable KINGSLEY, LOU Unavailable [address] + [place] [address] ARABELLA LÓPEZ Unavailable [address] + [place] [address] R Unavailable Unavailable Unavailable KINGSLEY, LOU Unavailable [address] + [place] [address] ARABELLA LÓPEZ Unavailable [address] + [place] [address] R Unavailable Unavailable Unavailable KINGSLEY, LOU Unavailable [address] + [place] [address] ARABELLA LÓEPZ Unavailable [address] + [place] [address] R Unavailable Unavailable Unavailable KINGSLEY, LOU Unavailable [address] + [place] [address] ARABELLA LÓPEZ Unavailable [address] + [place] [address] R Unavailable Unavailable Unavailable KINGSLEY, LOU Unavailable [address] + [place] [address] ARABELLA LÓPEZ Unavailable [address] + [place] [address] R Unavailable Unavailable Unavailable KINGSLEY, LOU Unavailable [address] + [place] [address] ARABELLA LÓPEZ Unavailable [address] + [place] [address] R Unavailable Unavailable Unavailable KINGSLEY, LOU Unavailable [address] + [place] [address] ARABELLA LÓPEZ Unavailable [address] + [place] [address] R Unavailable Unavailable Unavailable KINGSLEY, LOU Unavailable [address] + [place] [address] ARABELLA LÓPEZ Unavailable [address] + [place] [address] R Unavailable Unavailable Unavailable KINGSLEY, LOU Unavailable [address] + [place] [address] JACK LÓPEZDY Unavailable [address] + [place] [address] R Unavailable Unavailable Unavailable KINGSLEY, LOU Unavailable [address] + [place] [address] ARABELLA LÓPEZ Unavailable [address] + [place] [address] R Unavailable Unavailable Unavailable KINGSLEY, LOU Unavailable [address] + [place] [address] ARABELLA LÓPEZ Unavailable [address] + [place] [address] R Unavailable Unavailable Unavailable KINGSLEY, LOU Unavailable [address] + [place] [address] ARABELLA LÓPEZ Unavailable [address] + [place] [address] R Unavailable Unavailable Unavailable KINGSLEY, LOU Unavailable [address] + [place] [address] Arabella López Unavailable [address] + [place] [address] R Unavailable Unavailable Unavailable Kingsley, Lou Unavailable [address] + [place] [address] ARABELLA LÓPEZ Unavailable [address] + [place] [address] R Unavailable Unavailable Unavailable KINGSLEY, LOU Unavailable [address] + [place] [address] ARABELLA LÓPEZ Unavailable [address] + [place] [address] R Unavailable Unavailable Unavailable KINGSLEY, LOU Unavailable [address] + [place] [address] ARABELLA LÓPEZ Unavailable [address] + [place] [address] R Unavailable Unavailable Unavailable KINGSLEY, LOU Unavailable [address] + [place] [address] ARABELLA LÓPEZ Unavailable [address] + [place] [address] R Unavailable Unavailable Unavailable KINGSLEY, LOU Unavailable [address] + [place] [address] Arabella López Unavailable [address] + [place] [address] R Unavailable Unavailable Unavailable Kingsley, Lou Unavailable [address] + [place] [address] Arabella López Unavailable [address] + [place] [address] R Unavailable Unavailable Unavailable Kingsley, Lou Unavailable [address] + [place] [address] Arabella López Unavailable [address] + [place] [address] R Unavailable Unavailable Unavailable Kingsley, Lou Unavailable [address] + [place] [address] Arabella López Unavailable [address] + [place] [address] R Unavailable Unavailable Unavailable Kingsley, Lou Unavailable [address] + [place] [address] Arabella López Unavailable [address] + [place] [address] R Unavailable Unavailable Unavailable Kingsley, Lou Unavailable [address] + [place] [address] Arabella López Unavailable [address] + [place] [address] R Unavailable Unavailable Unavailable Kingsley, Lou Unavailable [address] + [place] [address] Arabella Lpóez Unavailable [address] + [place] [address] R Unavailable Unavailable Unavailable Kingsley, Lou Unavailable [address] + [place] [address] Arabella López Unavailable [address] + [place] [address] R Unavailable Unavailable Unavailable Kingsley, Lou Unavailable [address] + [place] [address] Arabella López Unavailable [address] + [place] [address] R Unavailable Unavailable Unavailable Kingsley, Lou Unavailable [address] + [place] [address] Arabella López Unavailable [address] + [place] [address] R Unavailable Unavailable Unavailable Kingsley, Lou Unavailable [address] + [place] [address] Arabella López Unavailable [address] + [place] [address] R Unavailable Unavailable Unavailable Kingsley, Lou Unavailable [address] + [place] [address] Arabella López Unavailable [address] + [place] [address] R Unavailable Unavailable Unavailable Kingsley, Lou Unavailable [address] + [place] [address] Arabella López Unavailable [address] + [place] [address] R Unavailable Unavailable Unavailable Kingsley, Lou Unavailable [address] + [place] [address] Arabella López Unavailable [address] + [place] [address] R Unavailable Unavailable Unavailable Kingsley, Lou Unavailable [address] + [place] [address] Arabella López Unavailable [address] + [place] [address] R Unavailable Unavailable Unavailable Kingsley, Lou Unavailable [address] + [place] [address] Arabella López Unavailable [address] + [place] [address] R Unavailable Unavailable Unavailable Kingsley, Lou Unavailable [address] + [place] [address] Arabella López Unavailable [address] + [place] [address] R Unavailable Unavailable Unavailable Kingsley, Lou Unavailable [address] + [place] [address] Arabella López Unavailable [address] + [place] [address] R Unavailable Unavailable Unavailable Kingsley, Lou Unavailable [address] + [place] [address] Arabella López Unavailable [address] + [place] [address] R Unavailable Unavailable Unavailable Kingsley, Lou Unavailable [address] + [place] [address] Arabella López Unavailable [address] + [place] [address] R Unavailable Unavailable Unavailable Kingsley, Lou Unavailable [address] + [place] [address] Arabella López Unavailable [address] + [place] [address] R Unavailable Unavailable Unavailable Kingsley, Lou Unavailable [address] + [place] [address] Arabella López Unavailable [address] + [place] [address] R Unavailable Unavailable Unavailable Kingsley, Lou Unavailable [address] + [place] [address] Arabella López Unavailable [address] + [place] [address] R Unavailable Unavailable Unavailable Kingsley, Lou Unavailable [address] + [place] [address] Arabella López Unavailable [address] + [place] [address] R Unavailable Unavailable Unavailable Kingsley, Lou Unavailable [address] + [place] [address] Arabella López Unavailable [address] + [place] [address] R Unavailable Unavailable Unavailable Kingsley, Lou Unavailable [address] + [place] [address] Arabella López Unavailable [address] + [place] [address] R Unavailable Unavailable Unavailable Kingsley, Lou Unavailable [address] + [place] [address] Arabella López Unavailable [address] + [place] [address] R Unavailable Unavailable Unavailable Kingsley, Lou Unavailable [address] + [place] [address] Arabella López Unavailable [address] + [place] [address] R Unavailable Unavailable Unavailable Kingsley, Lou Unavailable [address] + [place] [address] Sardis, Arabella Unavailable [address] + [place] [address] R Unavailable Unavailable Unavailable Kingsley, Lou Unavailable [address] + [place] [address] Arabella López Unavailable [address] + [place] [address] R Unavailable Unavailable Unavailable Kingsley, Lou Unavailable [address] + [place] [address] Arabella López Unavailable [address] + [place] [address] R Unavailable Unavailable Unavailable Kingsley, Lou Unavailable [address] + [place] [address] Arabella López Unavailable [address] + [place] [address] R Unavailable Unavailable Unavailable Kingsley, Lou Unavailable [address] + [place] [address] Arabella López Unavailable [address] + [place] [address] R Unavailable Unavailable Unavailable Kingsley, Lou Unavailable [address] + [place] [address] Arabella López Unavailable [address] + [place] [address] R Unavailable Unavailable Unavailable Kingsley, Lou Unavailable [address] + [place] [address] Arabella López Unavailable [address] + [place] [address] R Unavailable Unavailable Unavailable Kingsley, Lou Unavailable [address] + [place] [address] Arabella López Unavailable [address] + [place] [address] R Unavailable Unavailable Unavailable Kingsley, Lou Unavailable [address] + [place] [address] Arabella López Unavailable [address] + [place] [address] R Unavailable Unavailable Unavailable Kingsley, Lou Unavailable [address] + [place] [address] Arabella López Unavailable [address] + [place] [address] R Unavailable Unavailable Unavailable Kingsley, Lou Unavailable [address] + [place] [address] Arabella López Unavailable [address] + [place] [address] R Unavailable Unavailable Unavailable Kingsley, Lou Unavailable [address] + [place] [address] Arabella López Unavailable [address] + [place] [address] R Unavailable Unavailable Unavailable Kingsley, Lou Unavailable [address] + [place] [address] Arabella López Unavailable [address] + [place] [address] R Unavailable Unavailable Unavailable Kingsley, Lou Unavailable [address] + [place] [address] Arabella López Unavailable [address] + [place] [address] R Unavailable Unavailable Unavailable Kingsley, Lou Unavailable [address] + [place] [address] Arabella López Unavailable [address] + [place] [address] R Unavailable Unavailable Unavailable Kingsley, Lou Unavailable [address] + [place] [address] Arabella López Unavailable [address] + [place] [address] R Unavailable Unavailable Unavailable Kingsley, Lou Unavailable [address] + [place] [address] Arabella López Unavailable [address] + [place] [address] R Unavailable Unavailable Unavailable Kingsley, Lou Unavailable [address] + [place] [address] Arabella López Unavailable [address] + [place] [address] R Unavailable Unavailable Unavailable Kingsley, Lou Unavailable [address] + [place] [address] Arabella López Unavailable [address] + [place] [address] R Unavailable Unavailable Unavailable Kingsley, Lou Unavailable [address] + [place] [address] Arabella López Unavailable [address] + [place] [address] R Unavailable Unavailable Unavailable Kingsley, Lou Unavailable [address] + [place] [address] Jack Lópezdy Unavailable [address] + [place] [address] R Unavailable Unavailable Unavailable Kingsley, Lou Unavailable [address] + [place] [address] Arabella López Unavailable [address] + [place] [address] R Unavailable Unavailable Unavailable Kingsley, Lou Unavailable [address] + [place] [address] Jack Lópezdy Unavailable [address] + [place] [address] R Unavailable Unavailable Unavailable Kingsley, Lou Unavailable [address] + [place] [address] Jack Lópezdy Unavailable [address] + [place] [address] R Unavailable Unavailable Unavailable Kingsley, Lou Unavailable [address] + [place] [address] Arabella López Unavailable [address] + [place] [address] R Unavailable Unavailable Unavailable Kingsley, Lou Unavailable [address] + [place] [address] Jack Lópezdy Unavailable [address] + [place] [address] R Unavailable Unavailable Unavailable Kingsley, Lou Unavailable [address] + [place] [address] Arabella López Unavailable [address] + [place] [address] R Unavailable Unavailable Unavailable Kingsley, Lou Unavailable [address] + [place] [address] Jack Lópezdy Unavailable [address] + [place] [address] R Unavailable Unavailable Unavailable Kingsley, Lou Unavailable [address] + [place] [address] Jack Lópezdy Unavailable [address] + [place] [address] R Unavailable Unavailable Unavailable Kingsley, Lou Unavailable [address] + [place] [address] Jack Lópezdy Unavailable [address] + [place] [address] R Unavailable Unavailable Unavailable Kingsley, Lou Unavailable [address] + [place] [address] Jack Lópezdy Unavailable [address] + [place] [address] R Unavailable Unavailable Unavailable Kingsley, Lou Unavailable [address] + [place] [address] Jack Lópezdy Unavailable [address] + [place] [address] R Unavailable Unavailable Unavailable Kingsley, Lou Unavailable [address] + [place] [address] Jack Lópezdy Unavailable [address] + [place] [address] R Unavailable Unavailable Unavailable Kingsley, Lou Unavailable [address] + [place] [address] ARABELLA LÓPEZ (POA) Unavailable [address] + [place] [address] R Unavailable Unavailable Unavailable KINGSLEY, LOU (POA) Unavailable [address] + [place] [address] Jack Lópezdy Unavailable [address] + [place] [address] R Unavailable Unavailable Unavailable Kingsley, Lou Unavailable [address] + [place] [address] Jack Lópezdy Unavailable [address] + [place] [address] R Unavailable Unavailable Unavailable Kingsley, Lou Unavailable [address] + [place] [address] ARABELLA LÓPEZ (POA) Unavailable [address] + [place] [place] [address] R Unavailable Unavailable Unavailable KINGSLEY LOU (POA) Unavailable [address] + [place] [address] ARABELLA LÓPEZ (POA) Unavailable [address] + [place] [place] [address] R Unavailable Unavailable Unavailable KINGSLEY LOU (POA) Unavailable [address] + [place] [address] ARABELLA LÓPEZ (POA) Unavailable [address] + [place] [address] R Unavailable Unavailable Unavailable KINGSLEY LOU (POA) Unavailable [address] + [place] [address] Arabella López Unavailable [address] + [place] [address] R Unavailable Unavailable Unavailable Kingsley, Lou Unavailable [address] + [place] [address] ARABELLA LÓPEZ (POA) Unavailable [address] + [place] [address] R Unavailable Unavailable Unavailable KINGSLEY, LOU (POA) Unavailable [address] + [place] [address] ARABELLA LÓPEZ (POA) Unavailable [address] + [place] [address] R Unavailable Unavailable Unavailable KINGSLEY, LOU (POA) Unavailable [address] + [place] [address] Arabella López Unavailable [address] + [place] [address] R Unavailable Unavailable Unavailable Kingsley, Lou Unavailable [address] + [place] [address] Arabella López Unavailable [address] + [place] [address] R Unavailable Unavailable Unavailable Kingsley, Olu Unavailable [address] + [place] [address] Arabella López Unavailable [address] + [place] [address] R Unavailable Unavailable Unavailable Kingsley, Lou Unavailable [address] + [place] [address] Jack Lópezdy Unavailable [address] + [place] [address] R Unavailable Unavailable Unavailable Kingsley, Lou Unavailable [address] + [place] [address] Jack Lópezdy Unavailable [address] + [place] [address] R Unavailable Unavailable Unavailable Kingsley, Lou Unavailable [address] + [place] [address] Jack Lópezdy Unavailable [address] + [place] [address] R Unavailable Unavailable Unavailable Kingsley, Lou Unavailable [address] + [place] [address] Jack Lópezdy Unavailable [address] + [place] [address] R Unavailable Unavailable Unavailable Kingsley, Lou Unavailable [address] + [place] [address] Jack Lópezdy Unavailable [address] + [place] [address] R Unavailable Unavailable Unavailable Kingsley, Lou Unavailable [address] + [place] [address] Jack Lópezdy Unavailable [address] + [place] [address] R Unavailable Unavailable Unavailable Kingsley, Lou Unavailable [address] + [place] [address] Jack Lópezdy Unavailable [address] + [place] [address] R Unavailable Unavailable Unavailable Kingsley, Lou Unavailable [address] + [place] [address] MaribelJack pateldy Unavailable [address] + [place] [address] R Unavailable Unavailable Unavailable Kingsley, Lou Unavailable [address] + [place] [address] Jack Lópezdy Unavailable [address] + [place] [address] R Unavailable Unavailable Unavailable Kingsley, Lou Unavailable [address] + [place] [address] Arabella López Unavailable [address] +[phone] [place] [address] R Unavailable Unavailable Unavailable Kingsley, Lou Unavailable [address] + [place] [address] Care Team Providers Name Role Phone Clement Bueno Attending Unavailable Zackery, Clement Attending Unavailable Zackery, Clement Attending Unavailable Ousmane Almanza Attending Unavailable Clement Bueno Primary Care Unavailable Ousmane Almanza Attending Unavailable Shanell Almanzaongbe Referring Unavailable Clement Bueno Attending Unavailable Victoria Fu Attending Unavailable Tracy Jones Attending Unavailable Tracy Jones Attending Unavailable Charly Ross Attending Unavailable Tracy Jones Referring Unavailable Benja, Tracy Primary Care Unavailable Benja, Tracy Primary Care Unavailable Ashelfah, Ghasem Admitting Unavailable Yefri Bartholomew Attending Unavailable Cody Charly Consulting Unavailable Clement Bueno Attending Unavailable Zackery, Clement Attending Unavailable Zackery, Clement Attending Unavailable Benja, Tracy Primary Care Unavailable Jeremi Rosales Attending Unavailable Ashelfah, Ghasem Admitting Unavailable Ashelfah, Ghasem Attending Unavailable Tracy Jones Primary Care Unavailable Ashelfah, Ghasem Consulting Unavailable Ashelfah, Ghasem Admitting Unavailable Benja, Tracy Primary Care Unavailable Moodoriana, Charly Consulting Unavailable Yefri Bartholomew Attending Unavailable Jogeovannaeri, Yefri Consulting Unavailable Ashelfah, Ghasem Admitting Unavailable Charly Ross Attending Unavailable Benja, Tracy Primary Care Unavailable Moodispaw, Charly Consulting Unavailable Jopperi, Yefri Consulting Unavailable Keeley Bartholomewic Attending Unavailable Ashelfah, Ghasem Admitting Unavailable Benja, Tracy Primary Care Unavailable Moodispaw, Charly Consulting Unavailable Jopperi, Yefri Consulting Unavailable Ashelfah, Ghasem Referring Unavailable Moodoriana Charly Attending Unavailable Markus Cueto Attending Unavailable Tracy Jones Attending Unavailable Benja, Tracy Primary Care Unavailable Elise, Jone Admitting Unavailable Margoth Carroll Attending Unavailable Pat Austin Consulting Unavailable Elise, Jone Admitting Unavailable Benja, Tracy Primary Care Unavailable Elise, Jone Consulting Unavailable Kasandra Almendarez Attending Unavailable Elise, Jone Admitting Unavailable Norman, Pat Attending Unavailable Tracy Jones Primary Care Unavailable Norman, Pat Consulting Unavailable Koram, Margoth Tia Consulting Unavailable Elise, Jone Admitting Unavailable Koram, Margoth Tia Attending Unavailable Tracy Jones Primary Care Unavailable Norman, Pat Consulting Unavailable Koram, Margoth Tia Consulting Unavailable Victoria Lambert Attending Unavailable Benja, Tracy Referring Unavailable Benja, Tracy Primary Care Unavailable Clement Coleman Attending Unavailable Benja, Tracy Referring Unavailable Charly San Attending Unavailable [facility] Care Unavailable Benja, Tracy Attending Unavailable Cody Charly Attending Unavailable Elise, Jone Referring Unavailable [facility] Attending Unavailable [facility] Unavailable Ion, Juan Jose Consulting Unavailable Paintsil, Richardton Admitting Unavailable Kasandra Almendarez Attending Unavailable Robotham, Aurora Consulting Unavailable Moodispaw, Charly Consulting Unavailable Lokesh Pulliam Consulting Unavailable Paintsil, Richardton Admitting Unavailable Robotham, Aurora Attending Unavailable [facility] Unavailable IonJuan Jose Consulting Unavailable Ion, Juan Jose Referring Unavailable Paintsil, Richardton Consulting Unavailable Paintsil, Richardton Admitting Unavailable Paintsil, Richardton Attending Unavailable [facility] Unavailable Ion, Juan Jose Consulting Unavailable Robotham, Aurora Consulting Unavailable Paintsil, Richardton Consulting Unavailable Paintsil, Richardton Admitting Unavailable Robotham, Aurora Attending Unavailable [facility] Unavailable Ion, Juan Jose Consulting Unavailable Robotham, Aurora Consulting Unavailable Paintsil, Richardton Consulting Unavailable Paintsil, Richardton Admitting Unavailable Paintsil, Richardton Attending Unavailable [facility] Unavailable Ion, Juan Jose Consulting Unavailable Robotham, Aurora Consulting Unavailable Paintsil, Richardton Consulting Unavailable Paintsil, Richardton Admitting Unavailable Robotham, Aurora Attending Unavailable [facility] Unavailable Ion, Juan Jose Consulting Unavailable Robotham, Aurora Consulting Unavailable Paintsil, Richardton Consulting Unavailable Paintsil, Richardton Admitting Unavailable Paintsil, Richardton Attending Unavailable [facility] Unavailable Ion, Juan Jose Consulting Unavailable Robotham, Aurora Consulting Unavailable Moodispaw, Charly Consulting Unavailable Paintsil, Richardton Consulting Unavailable Paintsil, Richardton Admitting Unavailable Moodispaw, Charly Attending Unavailable [facility] Unavailable Ion, Juan Jose Consulting Unavailable Robotham, Aurora Consulting Unavailable Moodispaw, Charly Consulting Unavailable Paintsil, Richardton Consulting Unavailable Paintsil, Richardton Admitting Unavailable Robotham, Aurora Attending Unavailable [facility] Unavailable Ion, Juan Jose Consulting Unavailable Robotham, Aurora Consulting Unavailable Moodispaw, Charly Consulting Unavailable Paintsil, Richardton Consulting Unavailable Paintsil, Richardton Admitting Unavailable Paintsil, Richardton Attending Unavailable [facility] Unavailable Ion, Juan Jose Consulting Unavailable Robotham, Aurora Consulting Unavailable Moodispaw, Charly Consulting Unavailable Paintsil, Richardton Consulting Unavailable Paintsil, Richardton Admitting Unavailable Moodispaw, Charly Attending Unavailable [facility] Unavailable Ion, Juan Jose Consulting Unavailable Robotham, Aurora Consulting Unavailable Moodispaw, Charly Consulting Unavailable Paintsil, Richardton Consulting Unavailable Paintsil, Richardton Admitting Unavailable Nathen Church Attending Unavailable [facility] Unavailable Ion, Juan Jose Consulting Unavailable Robotham, Aurora Consulting Unavailable Moodispaw, Charly Consulting Unavailable Paintsil, Richardton Consulting Unavailable Paintsil, Richardton Admitting Unavailable Paintsil, Richardton Attending Unavailable [facility] Unavailable Ion, Juan Jose Consulting Unavailable Robotham, Aurora Consulting Unavailable Moodispaw, Charly Consulting Unavailable Paintsil, Richardton Consulting Unavailable Paintsil, Richardton Admitting Unavailable Pat Austin Attending Unavailable [facility] Unavailable Ion, Juan Jose Consulting Unavailable Robotham, Aurora Consulting Unavailable Moodispaw, Charly Consulting Unavailable Paintsil, Richardton Consulting Unavailable Paintsil, Richardton Admitting Unavailable Nathen Church Attending Unavailable [facility] Unavailable Ion, Juan Jose Consulting Unavailable Robotham, Aurora Consulting Unavailable Moodispaw, Charly Consulting Unavailable Paintsil, Richardton Consulting Unavailable Paintsil, Richardton Admitting Unavailable Paintsil, Richardton Attending Unavailable [facility] Unavailable Ion, Juan Jose Consulting Unavailable Robotham, Aurora Consulting Unavailable Moodispaw, Charly Consulting Unavailable Paintsil, Richardton Consulting Unavailable Paintsil, Richardton Admitting Unavailable Robotham, Aurora Attending Unavailable [facility] Unavailable Ion, Juan Jose Consulting Unavailable Robotham, Aurora Consulting Unavailable Moodispaw, Chraly Consulting Unavailable KittoArnaud gay Consulting Unavailable Paintsil, Richardton Admitting Unavailable Moodispaw, Charly Attending Unavailable [facility] Unavailable Ion, Juan Jose Consulting Unavailable Robotham, Aurora Consulting Unavailable Moodispaw, Charly Consulting Unavailable Kittoe, Arnaud Consulting Unavailable Paintsil, Richardton Admitting Unavailable Kittoe, Arnaud Attending Unavailable [facility] Unavailable Ion, Juan Jose Consulting Unavailable Robotham, Aurora Consulting Unavailable Moodispaw, Charly Consulting Unavailable Kittoe, Arnaud Consulting Unavailable Paintsil, Richardton Admitting Unavailable Robotham, Aurora Attending Unavailable [facility] Unavailable Ion, Juan Jose Consulting Unavailable Ino, Juan Jose Referring Unavailable Robotham, Aurora Consulting Unavailable Moodispaw, Charly Consulting Unavailable Kittoe, Arnaud Consulting Unavailable Paintsil, Richardton Admitting Unavailable Kittoe, Arnaud Attending Unavailable [facility] Unavailable Ion, Juan Jose Consulting Unavailable Robotham, Aurora Consulting Unavailable Moodispaw, Charly Consulting Unavailable Kittoe, Arnaud Consulting Unavailable Paintsil, Richardton Admitting Unavailable Moodispaw, Charly Attending Unavailable [facility] Unavailable Ion, Juan Jose Consulting Unavailable Robotham, Aurora Consulting Unavailable Moodispaw, Charly Consulting Unavailable Kittoe, Arnaud Consulting Unavailable Paintsil, Richardton Admitting Unavailable Robotham, Aurora Attending Unavailable [facility] Unavailable Ion, Juan Jose Consulting Unavailable Robotham, Aurora Consulting Unavailable Moodispaw, Charly Consulting Unavailable Kittoe, Anraud Consulting Unavailable Paintsil, Richardton Admitting Unavailable Kittoe, Arnaud Attending Unavailable [facility] Unavailable Ion, Juan Jose Consulting Unavailable Robotham, Aurora Consulting Unavailable Moodispaw, Charly Consulting Unavailable Lokesh Pulliam Consulting Unavailable Kittoe, Arnaud Consulting Unavailable Paintsil, Richardton Admitting Unavailable Moodispaw, Charly Attending Unavailable [facility] Unavailable Ion, Juan Jose Consulting Unavailable Robotham, Aurora Consulting Unavailable Moodispaw, Charly Consulting Unavailable Shasha, Lokesh Consulting Unavailable KittoeArnaud Consulting Unavailable Paintsil, Richardton Admitting Unavailable Robotham, Aurora Attending Unavailable [facility] Unavailable Ion, Juan Jose Consulting Unavailable Robotham, Aurora Consulting Unavailable Moodispaw, Charly Consulting Unavailable Shasha, Lokesh Consulting Unavailable KittoArnaud gay Consulting Unavailable Paintsil, Richardton Admitting Unavailable Moodispaw, Charly Attending Unavailable [facility] Unavailable Ion, Juan Jose Consulting Unavailable Robotham, Aurora Consulting Unavailable Moodispaw, Charly Consulting Unavailable Shasha, Lokesh Consulting Unavailable Kittoe, Arnaud Consulting Unavailable Paintsil, Richardton Admitting Unavailable KittoeArnaud Attending Unavailable [facility] Unavailable Ion, Juan Jose Consulting Unavailable Robotham, Aurora Consulting Unavailable Moodispaw, Charly Consulting Unavailable Shasha, Lokesh Consulting Unavailable Kittoe, Arnaud Consulting Unavailable Paintsil, Richardton Admitting Unavailable Robotham, Aurora Attending Unavailable [facility] Unavailable Ion, Juan Jose Consulting Unavailable Robotham, Aurora Consulting Unavailable Moodispaw, Charly Consulting Unavailable Shasha, Lokesh Consulting Unavailable Kittoe, Arnaud Consulting Unavailable Paintsil, Richardton Admitting Unavailable Kittoe, Arnaud Attending Unavailable [facility] Unavailable Ion, Juan Jose Consulting Unavailable Robotham, Aurora Consulting Unavailable Moodispaw, Charly Consulting Unavailable Shasha, Lokesh Consulting Unavailable Kittoe, Arnaud Consulting Unavailable Paintsil, Richardton Admitting Unavailable Robotham, Aurora Attending Unavailable [facility] Unavailable Juan Jose Lemon Consulting Unavailable Robotham, Aurora Consulting Unavailable Moodispaw, Charly Consulting Unavailable Shasha, Lokesh Consulting Unavailable Kittoe, Arnaud Consulting Unavailable Paintsil, Richardton Admitting Unavailable Arnaud Lewis Attending Unavailable [facility] Unavailable IonJuan Jose orellana Consulting Unavailable Robotham, Aurora Consulting Unavailable Moodispaw, Charly Consulting Unavailable Shasha, Lokesh Consulting Unavailable Kittoe, Arnaud Consulting Unavailable Paintsil, Richardton Admitting Unavailable Moodispaw, Charly Attending Unavailable [facility] Unavailable Juan Jose Lemon Consulting Unavailable Robotham, Aurora Consulting Unavailable Moodispaw, Chraly Consulting Unavailable Shasha, Lokesh Consulting Unavailable KittoeArnaud Consulting Unavailable Paintsil, Richardton Admitting Unavailable Robotham, Aurora Attending Unavailable [facility] Unavailable Juan Jose Lemon Consulting Unavailable Robotham, Aurora Consulting Unavailable Moodispaw, Charly Consulting Unavailable Shasha, Lokesh Consulting Unavailable KittoeArnaud Consulting Unavailable Paintsil, Richardton Admitting Unavailable KittoArnaud gay Attending Unavailable [facility] Unavailable IonJuan Jose orellana Consulting Unavailable Robotham, Aurora Consulting Unavailable Moodispaw, Charly Consulting Unavailable Shasha, Lokesh Consulting Unavailable KittoeArnaud Consulting Unavailable Paintsil, Richardton Admitting Unavailable Moodispaw, Charly Attending Unavailable [facility] Unavailable Juan Jose Lemon Consulting Unavailable Robotham, Aurora Consulting Unavailable Moodispaw, Charly Consulting Unavailable Shasha, Lokesh Consulting Unavailable KittoeArnaud Consulting Unavailable Paintsil, Richardton Admitting Unavailable Robotham, Aurora Attending Unavailable [facility] Unavailable Juan Jose Lemon Consulting Unavailable Robotham, Aurora Consulting Unavailable Moodispaw, Charly Consulting Unavailable Shasha, Lokesh Consulting Unavailable Paintsil, Richardton Consulting Unavailable Paintsil, Richardton Admitting Unavailable Moodispaw, Charly Attending Unavailable [facility] Unavailable Juan Jose Lemon Consulting Unavailable Robotham, Aurora Consulting Unavailable Moodispaw, Charly Consulting Unavailable Shasha, Lokesh Consulting Unavailable Paintsil, Richardton Consulting Unavailable Paintsil, Richardton Admitting Unavailable Paintsil, Richardton Attending Unavailable [facility] Unavailable Juan Jose Lemon Consulting Unavailable Robotham, Aurora Consulting Unavailable Moodispaw, Charly Consulting Unavailable Shasha, Lokesh Consulting Unavailable Paintsil, Richardton Consulting Unavailable Paintsil, Richardton Admitting Unavailable Robotham, Aurora Attending Unavailable [facility] Unavailable Juan Jose Lemon Consulting Unavailable Robotham, Aurora Consulting Unavailable Moodispaw, Charly Consulting Unavailable Shasha, Lokesh Consulting Unavailable Paintsil, Richardton Consulting Unavailable Paintsil, Richardton Admitting Unavailable Paintsil, Richardton Attending Unavailable [facility] Unavailable Juan Jose Lemon Consulting Unavailable Robotham, Aurora Consulting Unavailable Moodispaw, Charly Consulting Unavailable Shasha, Lokesh Consulting Unavailable Paintsil, Richardton Consulting Unavailable Paintsil, Richardton Admitting Unavailable Robotham, Aurora Attending Unavailable [facility] Unavailable Juan Jose Lemon Consulting Unavailable Robotham, Aurora Consulting Unavailable Moodispaw, Charly Consulting Unavailable Shasha, Lokesh Consulting Unavailable Paintsil, Richardton Consulting Unavailable Paintsil, Richardton Admitting Unavailable Paintsil, Richardton Attending Unavailable [facility] Unavailable Juan Jose Lemon Consulting Unavailable Robotham, Aurora Consulting Unavailable Moodispaw, Charly Consulting Unavailable Shasha, Lokesh Consulting Unavailable Paintsil, Richardton Consulting Unavailable Paintsil, Richardton Admitting Unavailable Deborah Knapp PA-C Attending Unavailable [facility] Unavailable Juan Jose Lemon Consulting Unavailable Robotham, Aurora Consulting Unavailable Moodispaw, Charly Consulting Unavailable Shasha, Lokesh Consulting Unavailable White, Kasandra Consulting Unavailable White, Kasandra Attending Unavailable Paintsil, Richardton Admitting Unavailable Bueno, [facility] Unavailable Ion, Juan Jose Consulting Unavailable Robotham, Aurora Consulting Unavailable Moodispaw, Charly Consulting Unavailable Shasha, Lokesh Consulting Unavailable White, Kasandra Consulting Unavailable White, Kasandra Attending Unavailable Paintsil, Richardton Admitting Unavailable Bueno, Clement Primary Care Unavailable [...] Clement Referring Unavailable Bueno, Clement Attending Unavailable OlegheRommelbe Attending Unavailable Bueno, Clement Primary [facility] Unavailable Oleghe, Rommelbe Attending Unavailable Oleghe, Rommelbe Referring Unavailable Ion, Juan Jose Attending Unavailable Robotham, Aurora Referring Unavailable [...] Ghasem Admitting Unavailable Ashelfah, Ghasem Attending Unavailable Lawton, Clement Primary [facility] Unavailable Ion, Juan Jose Consulting Unavailable Perkins, Donnie Consulting Unavailable Ashelfah, Ghasem Consulting Unavailable Ashelfah, Ghasem Admitting Unavailable Ion, Juan Jose Attending Unavailable Bueno, Clement Primary [facility] Unavailable Ion, Juan Jose Consulting Unavailable Perkins, Donnie Consulting Unavailable Ashelfah, Ghasem Consulting Unavailable Ashelfah, Ghasem Admitting Unavailable Ashelfah, Ghasem Attending Unavailable Lawton, Clement Primary [facility] Unavailable Ion, Juan Jose Consulting Unavailable Perkins, Donnie Consulting Unavailable Ashelfah, Ghasem Consulting Unavailable Ashelfah, Ghasem Admitting Unavailable Ion, Juan Jose Attending Unavailable Bueno, Clement Primary [facility] Unavailable Ion, Juan Jose Consulting Unavailable Perkins, Donnie Consulting Unavailable Ashelfah, Ghasem Consulting Unavailable Ashelfah, Ghasem Admitting Unavailable Ashelfah, Ghasem Attending Unavailable Lawton, Clement Primary [facility] Unavailable Ion, Juan Jose Consulting Unavailable Perkins, Donnie Consulting Unavailable Ashelfah, Ghasem Consulting Unavailable Ashelfah, Ghasem Admitting Unavailable Sal, Eriberto Attending Unavailable Bueno, Clement Primary [facility] Unavailable Ion, Juan Jose Consulting Unavailable Perkins, Donnie Consulting Unavailable Sal, Eriberto Consulting Unavailable Zackery, Clement Attending Unavailable Ousmane Almanza Attending Unavailable Ousmane Almanza Referring Unavailable Zackery, Clement Attending Unavailable Ousmane Almanza Attending Unavailable Zackery Clement Primary Care Unavailable Bueno, Clement Attending Unavailable Bueno, Clement Attending Unavailable PROBLEMS PROBLEMS DATE TYPE CONDITION / CODE ATTENDING STATUS SOURCE 11/22/2018 Unknown D64.9 - Anemia, Clement Bueno Active [facility] unspecified / Community D64.9(ICD-10) Hospital Repository 11/22/2018 Unknown E11.9 - Type 2 Clement Bueno Active [facility] diabetes mellitus Community without complications Hospital / E11.9(ICD-10) Repository 11/22/2018 Unknown E78.5 - Bueno, Clement Active [facility] Hyperlipidemia, Community unspecified / Hospital E78.5(ICD-10) Repository 11/22/2018 Unknown E03.9 - Bueno, Clement Active [facility] Hypothyroidism, Community unspecified / Hospital E03.9(ICD-10) Repository 11/08/2018 Unknown J44.9 - Chronic Clement Bueno Active [facility] obstructive pulmonary Community disease, unspecified / Hospital J44.9(ICD-10) Repository 11/03/2018 Unknown T81.89XA - Other Oleghe, Active [facility] complications of [facility] procedures, not Hospital elsewhere classified, Repository initial encounter / T81.89XA(ICD-10) 11/15/2018 Unknown G40.901 - Epilepsy, Eriberto Huang Active [facility] unspecified, not Community intractable, with Hospital status epilepticus / Repository G40.901(ICD-10) 09/22/2018 Unknown T81.32XA - Disruption Oleghe, Active [facility] of internal operation [facility] (surgical) wound, not Hospital elsewhere classified, Repository initial encounter / T81.32XA(ICD-10) 09/22/2018 Unknown K63.1 - Perforation of Oleghe, Active [facility] intestine [facility] (nontraumatic) / Hospital K63.1(ICD-10) Repository 08/20/2018 Unknown S31.109A - Unspecified Robotham, Active [facility] open wound of [facility] abdominal wall, Hospital unspecified quadrant Repository without penetration into peritoneal cavity, initial encounter / S31.109A(ICD-10) 08/16/2018 Unknown R94.31 - Abnormal Nory, [place] Active [facility] electrocardiogram Community [ECG] [EKG] / Hospital R94.31(ICD-10) Repository 08/27/2018 Unknown A41.89 - Other IonJuan Jose orellana Active [facility] specified sepsis / Community A41.89(ICD-10) Hospital Repository 08/27/2018 Unknown R65.21 - Severe sepsis IonJuan Jose orellana Active [facility] with septic shock / Community R65.21(ICD-10) Hospital Repository 08/27/2018 Unknown J96.01 - Acute Ion, Juan Jose Active [facility] respiratory failure Community with hypoxia / Hospital J96.01(ICD-10) Repository 08/27/2018 Unknown E11.22 - Type 2 Ion, Juan Jose Active [facility]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 / Repository E11.22(ICD-10) 08/27/2018 Unknown N18.3 - Chronic kidney Ion, Juan Jose Active [facility] disease, stage 3 Community (moderate) / Hospital N18.3(ICD-10) Repository 08/04/2018 Unknown R00.2 - Palpitations / Cornici, Charly Active [facility] R00.2(ICD-10) [facility] Repository 06/23/2018 Unknown 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, Active [facility] Atherosclerotic heart [facility] disease of [facility] coronary artery Repository without angina pectoris / I25.10(ICD-10) 06/23/2018 Unknown I47.1 - Moodispaw, Active [facility] Supraventricular [facility] tachycardia / Hospital I47.1(ICD-10) Repository 06/23/2018 Unknown R06.02 - Shortness of Moodisp[place], Active [facility] breath / [facility] R06.02(ICD-10) Hospital Repository 03/01/2018 Unknown I36.1 - Nonrheumatic Moodispaw, Active [facility] tricuspid (valve) [facility] insufficiency / Hospital I36.1(ICD-10) Repository 03/01/2018 Unknown I51.81 - Takotsubo Moodispaw, Active [facility] syndrome / [facility] I51.81(ICD-10) Hospital Repository 03/01/2018 Unknown I34.0 - Nonrheumatic Moodispaw, Active [facility] mitral (valve) [facility] insufficiency / Hospital I34.0(ICD-10) Repository 04/27/2018 Unknown N17.9 - Acute kidney Tracy Jones Active [facility] failure, unspecified / Community N17.9(ICD-10) Hospital Repository PROCEDURES PROCEDURES No Procedure Records FoundRESULTS RESULTS Observed: 11/23/2018 Status: P Source: [facility] CULTURE, WOUND 3:00 PM [facility] REPOSITORY Comments: WOUND DRAINAGE Gram Stain Gram Stain 2+ Gram positive rods 1+ Gram positive cocci 1+ Gram negative rods Performed By: #### [id number] #### [facility] [place], [address] BASIC METABOLIC Collected: 11/22/2018 Status: F Source: GISSEL PROFILE (BMP) 6:15 AM [facility] REPOSITORY TYPE CODE TESTS RESULT OUT OF [...] GAP 7 Performed By: #### L500.2500 #### [facility] [address] [place], [address] CBC-COMPLETE BLOOD CNT Collected: 11/22/2018 Status: F Source: QUINTER NO DIFF 6:15 AM [facility] REPOSITORY TYPE CODE TESTS RESULT OUT OF [...] MPV 8.9 Performed By: #### [id number] #### [facility] [address] [place], [place], [address] BASIC METABOLIC Collected: 11/15/2018 Status: F Source: GISSEL PROFILE (BMP) 6:50 AM [facility] REPOSITORY Order Comment: 305-1 TYPE CODE TESTS [...] GAP 8 Performed By: #### L500.2500 #### [facility] [address] [place], [place], [address] CBC-COMPLETE BLOOD CNT Collected: 11/15/2018 Status: F Source: GISSEL NO DIFF 6:50 AM [facility] REPOSITORY TYPE CODE TESTS RESULT OUT OF [...] MPV 9.4 Performed By: #### [id number] #### [facility] [address] [place], [address] BASIC METABOLIC Collected: 11/08/2018 Status: F Source: QUINTER PROFILE ([facility]) 5:45 AM [facility] REPOSITORY Order Comment: ROOM 305-1 TYPE CODE [...] GAP 8 Performed By: #### [id number] #### [facility] [address] [place], [place], [id number] CBC-COMPLETE BLOOD CNT Collected: 11/08/2018 Status: F Source: GISSEL NO DIFF 5:45 AM [facility] REPOSITORY Order Comment: ROOM 305-1 TYPE CODE [...] MPV 9.1 Performed By: #### [id number] #### [facility] [address] [place], [place], [address] CBC-COMPLETE BLOOD CNT Collected: 11/01/2018 Status: F Source: GISSEL NO DIFF 5:00 AM [facility] REPOSITORY TYPE CODE TESTS RESULT OUT OF [...] MPV 10.4 Performed By: #### [id number] #### [facility] [address] [facility] [place], [place], [id number] BASIC METABOLIC Collected: 11/01/2018 Status: F Source: [employer] PROFILE (BMP) 5:00 AM [facility] REPOSITORY TYPE CODE TESTS RESULT OUT OF [...] GAP 13 Performed By: #### [id number] #### [facility] [address] [facility] [place], [place], [address] BASIC METABOLIC Collected: 10/25/2018 Status: F Source: GISSEL PROFILE (BMP) 6:37 AM [facility] REPOSITORY Order Comment: 408 TYPE CODE TESTS [...] GAP 14 Performed By: #### [id number] #### [facility] [address] [place], [place], [address] CBC-COMPLETE BLOOD CNT Collected: 10/25/2018 Status: F Source: GISSEL NO DIFF 6:37 AM [facility] REPOSITORY Order Comment: 408 TYPE CODE TESTS [...] MPV 10.2 Performed By: #### [id number] #### [facility] [address] [facility] [address] [place], [place], [address] CBC-COMPLETE BLOOD CNT Collected: 10/18/2018 Status: F Source: GISSEL NO DIFF 5:50 AM [facility] REPOSITORY TYPE CODE TESTS RESULT OUT OF [...] MPV 10.4 Performed By: #### [id number] #### [facility] [address] [place], [place], [id number] BASIC METABOLIC Collected: 10/18/2018 Status: F Source: GISSEL PROFILE (BMP) 5:50 AM [facility] REPOSITORY TYPE CODE TESTS RESULT OUT OF [...] GAP 11 Performed By: #### [id number] #### [facility] [address] [place], [place], [id number] CBC-COMPLETE BLOOD CNT Collected: 10/11/2018 Status: F Source: GISSEL NO DIFF 5:25 AM [facility] REPOSITORY Order Comment: 408 TYPE CODE TESTS [...] MPV 10.9 Performed By: #### [id number] #### [facility] [address] [place], [place], [id number] BASIC METABOLIC Collected: 10/11/2018 Status: F Source: QUINTER PROFILE ([facility]) 5:25 AM [facility] REPOSITORY Order Comment: 408 TYPE CODE TESTS [...] GAP 11 Performed By: #### [id number] #### [facility] [address] [place], [place], [address] BASIC METABOLIC Collected: 10/04/2018 Status: F Source: QUINTER PROFILE ([facility]) 5:25 AM [facility] REPOSITORY Order Comment: ROOM 408 TYPE CODE [...] GAP 10 Performed By: #### [id number] #### [facility] [address] [place], [place], [address] CBC-COMPLETE BLOOD CNT Collected: 10/04/2018 Status: F Source: GISSEL NO DIFF 5:25 AM [facility] REPOSITORY Order Comment: ROOM 408 TYPE CODE [...] MPV 10.5 Performed By: #### L100.0500 #### [facility] [address] [place], [address] 12 LEAD ELECTROCARDIOGRAM Observed: 10/01/2018 Status: F Source: GISSEL 9:08 AM [facility] REPOSITORY [facility] Cardiovascular Services [address] [facility] [address] [place] [address] 12 Lead EKG 09/15/18 0823 MR#: [id number] Acct: [id number] Name: Catie WYNN Rep #: [id number] : 1935 82 From: Markus Cueto MD Attending Dr: Sal MERCER,Eriberto Status: DIS IN Ordering Dr: Franklyn Gates DO Date: 09/15/18 Location: [facility] Sex: F C Admitted: 09/15/18 Test Reason [...] ECG Confirmed by NORY MERCER, MARKUS ([id number]), assistant film editor SADIQ BUENO ([id number]) on 09/17/2018 3:46:33 PM Referred By: NATE Confirmed By:MARKUS CUETO MD 09/17/18 1546 Date Markus Cueto MD CC: Franklyn Gates DO; Clement Bueno MD; Eriberto Huang MD Signed BASIC METABOLIC Collected: 09/27/2018 Status: F Source: GISSEL PROFILE (BMP) 6:05 AM [facility] REPOSITORY Order Comment: 408 TYPE CODE TESTS [...] GAP 12 Performed By: #### L500.2500 #### [facility] [address] [place], [place], CBC-COMPLETE BLOOD CNT Collected: 09/27/2018 Status: F Source: QUINTER NO DIFF 6:05 AM [facility] REPOSITORY Order Comment: 408 TYPE CODE TESTS [...] MPV 9.4 Performed By: #### L100.0500 #### [facility] [address] [place], [place], [id number] CBC-COMPLETE BLOOD CNT Collected: 09/22/2018 Status: F Source: GISSEL NO DIFF 6:25 AM [facility] REPOSITORY Order Comment: ROOM 408 TYPE CODE [...] MPV 10.2 Performed By: #### L100.0500 #### [facility] [address] [facility]. [place], [place], [id number] BASIC METABOLIC Collected: 09/22/2018 Status: F Source: GISSEL PROFILE (BMP) 6:25 AM [facility] REPOSITORY Order Comment: ROOM 408 TYPE CODE [...] GAP 10 Performed By: #### L500.2500 #### [facility] [address] [facility] [place], [address] DISCHARGE SUMMARY Observed: 09/20/2018 Status: F Source: QUINTER 3:24 PM [facility] REPOSITORY [facility] Medical Records Department [address] [place] [address] Discharge Summary 09/20/18 0935 MR#: [id number] Acct: [id number] Name: Catie WYNN Rep #: [id number] : 1935 82 From: Eriberto Huang MD PCP: Clement Bueno MD Status: DIS IN Y [id number] Date and Diagnosis Date of Admission: [...] (valve) insufficiency (Chronic) 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 Hypothyroidism (Chronic) COPD (chronic obstructive pulmonary disease) (Chronic) Hyperlipidemia (Chronic) Type 2 diabetes mellitus (Chronic) Hospital Course and Treatment Consultations 09/15/18 10:37 Consult: Onc/Wound/hand frame surgical elastic knitter Routine Comment: Operations: None Summary of Care Provided: [] This is an 82 years old female patient presented [facility] because of status epilepticus, found to have [...] (Auto) 64.1, Lymph % (Auto) 17.3 L, Jewell % (Auto) 7.1, Eos % (Auto) 11.1 [...] Output for Last 24 Hours Intake Total 2007.4 / 2007.4 527.4 / 527.4 Output Total 1400 / [...] applicable Code Visit Inpatient E AND M: [id number] Disch Hosp 09/20/18 1524 <Electronically signed by Eriberto Huang MD> Date Eriberto Huang MD Cosigner Signature (if applicable): Date CC: Clement Bueno MD; Eriberto Huang MD Signed TRANSFER TO EXTENDED Observed: 09/20/2018 Status: F Source: [facility] 9:35 AM [facility] REPOSITORY [facility] Medical Records Department [address] [place] [address] Transfer to Extended Care MR#: [id number] Acct: [id number] Name: Catie WYNN Rep #: [id number] : 1935 82 From: Eriberto Huang MD PCP: Clement Bueno MD Status: ADM IN Catie WYNN [id number] (Patient) (Health Ins. Claim No.) (Day of Discharge to Facility) Certification of patient admission REQUIRED AT TIME OF ADMISSION. I CERTIFY THAT POST-HOSPITAL ECF SERVICES ARE REQUIRED TO BE GIVEN ON AN IN-PATIENT BASIS BECAUSE OF THE ABOVE NAMED PATIENT'S NEED FOR [facility] CARE ON A CONTINUING BASIS FOR THE CONDITION(S) FOR WHICH HE/SHE WAS RECEIVING IN-PATIENT HOSPITAL SERVICES PRIOR TO HIS/HER TRANSFER TO THE ECF. 09/20/18 0935 <Electronically signed by Eriberto Huang MD> Date Eriberto Huang MD - Diet 09/17/18 12:14 Diet: Regular Diet Food consistency:: Puree Liquid Consistency:: [place] Thick Dietary Modifications:: Pureed Diet [place] Thick Liquids Is pt able to select [...] diet as tolerated to regular- consistency per SEW ON OPERATOR. Will provide ONS w/ meals and medpass [...] BEDSIDE GLUCOSE Collected: 09/20/2018 Status: F Source: GISSEL 6:52 AM [facility] REPOSITORY TYPE CODE TESTS RESULT OUT OF RANGE REFERENCE UNITS LAB L501.080 70-110 mg/dL Normal BEDSIDE GLU 98 Result Comment: MANAGEMENT OF PATIENT CARE PER NURSING PROTOCOL Performed By: #### L501.080 #### [facility] [address] [place] [address] CBC W/DIFF, AUTOMATED Collected: 09/20/2018 Status: F Source: GISSEL 5:20 AM [facility] REPOSITORY TYPE CODE TESTS RESULT OUT OF [...] Lymph 1.17 Performed By: #### L100.0100 #### [facility] [address] [place], [place], [address] BASIC METABOLIC Collected: 09/20/2018 Status: F Source: GISSEL PROFILE (BMP) 5:20 AM [facility] REPOSITORY TYPE CODE TESTS RESULT OUT OF [...] GAP 10 Performed By: #### L500.2500 #### [facility] [address] [facility]. [place], [place], [address] BEDSIDE GLUCOSE Collected: 09/19/2018 Status: F Source: GISSEL 9:01 PM [facility] REPOSITORY TYPE CODE TESTS RESULT OUT OF REFERENCE UNITS RANGE LAB L501.080 70-110 mg/dL High BEDSIDE GLU 137 Result Comment: MANAGEMENT OF PATIENT CARE PER NURSING PROTOCOL Performed By: #### L501.080 #### [facility] Point of Care [address] [place] [address] BEDSIDE GLUCOSE Collected: 09/19/2018 Status: F Source: GISSEL 4:27 PM [facility] REPOSITORY TYPE CODE TESTS RESULT OUT OF REFERENCE UNITS RANGE LAB L501.080 70-110 mg/dL High BEDSIDE GLU 233 Result Comment: MANAGEMENT OF PATIENT CARE PER NURSING PROTOCOL Performed By: #### L501.080 #### [facility] Point of Care [address] [place] [address] BEDSIDE GLUCOSE Collected: 09/19/2018 Status: F Source: GISSEL 10:44 AM [facility] REPOSITORY TYPE CODE TESTS RESULT OUT OF REFERENCE UNITS RANGE LAB L501.080 70-110 mg/dL High BEDSIDE GLU 172 Result Comment: MANAGEMENT OF PATIENT CARE PER NURSING PROTOCOL Performed By: #### L501.080 #### [facility] Point of Care [address] [place] [address] BEDSIDE GLUCOSE Collected: 09/19/2018 Status: F Source: GISSEL 7:07 AM [facility] REPOSITORY TYPE CODE TESTS RESULT OUT OF REFERENCE UNITS RANGE LAB L501.080 70-110 mg/dL High BEDSIDE GLU 112 Result Comment: MANAGEMENT OF PATIENT CARE PER NURSING PROTOCOL Performed By: #### L501.080 #### [facility] Point of Care [address] [facility]. [place], [place] [address] CBC W/DIFF, AUTOMATED Collected: 09/19/2018 Status: F Source: GISSEL 6:14 AM [facility] REPOSITORY TYPE CODE TESTS RESULT OUT OF [...] Lymph 1.02 Performed By: #### L100.0100 #### [facility] [address] [place], [place], [address] BASIC METABOLIC Collected: 09/19/2018 Status: F Source: QUINTER PROFILE (BMP) 6:14 AM [facility] REPOSITORY TYPE CODE TESTS RESULT OUT OF [...] GAP 8 Performed By: #### L500.2500 #### [facility] [address] [place], [address] BEDSIDE GLUCOSE Collected: 09/18/2018 Status: F Source: GISSEL 8:59 PM [facility] REPOSITORY TYPE CODE TESTS RESULT OUT OF REFERENCE UNITS RANGE LAB L501.080 70-110 mg/dL High BEDSIDE GLU 331 Result Comment: MANAGEMENT OF PATIENT CARE PER NURSING PROTOCOL Performed By: #### L501.080 #### [facility] Point of Care [address] [place] [address] BEDSIDE GLUCOSE Collected: 09/18/2018 Status: F Source: QUINTER 5:10 PM [facility] REPOSITORY TYPE CODE TESTS RESULT OUT OF REFERENCE UNITS RANGE LAB L501.080 70-110 mg/dL High BEDSIDE GLU 289 Result Comment: MANAGEMENT OF PATIENT CARE PER NURSING PROTOCOL Performed By: #### L501.080 #### [facility] Point of Care [address] [place] [address] BEDSIDE GLUCOSE Collected: 09/18/2018 Status: F Source: QUINTER 11:07 AM [facility] REPOSITORY TYPE CODE TESTS RESULT OUT OF REFERENCE UNITS RANGE LAB L501.080 70-110 mg/dL High BEDSIDE GLU 216 Result Comment: MANAGEMENT OF PATIENT CARE PER NURSING PROTOCOL Performed By: #### L501.080 #### [facility] Point of Care [address] [place] [address] PROTHROMBIN TIME W/INR Collected: 09/18/2018 Status: F Source: GISSEL 8:20 AM [facility] REPOSITORY Order Comment: REDRAW. PREVIOUS SPECIMEN REJECTED DUE TO Hemolyzed/QNS FOR COAG. 09/18/18 0657 Douglas Giron TYPE CODE TESTS RESULT OUT OF RANGE REFERENCE UNITS LAB L300.4150 11.7-14.9 SECONDS High PROTIME 18.0 LAB L300.4200 Normal INR 1.5 Performed By: #### L300.3900 #### [facility] [address] [place], [address] BASIC METABOLIC Collected: 09/18/2018 Status: F Source: GISSEL PROFILE (BMP) 8:20 AM [facility] REPOSITORY Order Comment: REDRAW. PREVIOUS SPECIMEN REJECTED [...] GAP 14 Performed By: #### L500.2500 #### [facility] [address] [place], [place], [address] TYPE AND SCREEN Collected: 09/18/2018 Status: F Source: GISSEL 8:20 AM [facility] REPOSITORY Order Comment: CMV NEG? N Number [...] NEGATIVE Screen Performed By: #### B101.7450 #### [facility] [address] [place], [address] RC Collected: 09/18/2018 Status: F Source: QUINTER 8:20 AM [facility] REPOSITORY TYPE CODE TESTS RESULT OUT OF REFERENCE UNITS RANGE LAB U100.0000 [id number] TRANSFUSED PRODUCT: T AND S with Crossmatch, Red Cells COUNT: 1 Performed By: #### U100.0000 #### [facility] - refer to report for specific site BEDSIDE GLUCOSE Collected: 09/18/2018 Status: F Source: QUINTER 8:16 AM [facility] REPOSITORY TYPE CODE TESTS RESULT OUT OF REFERENCE UNITS RANGE LAB L501.080 70-110 mg/dL High BEDSIDE GLU 145 Result Comment: MANAGEMENT OF PATIENT CARE PER NURSING PROTOCOL Performed By: #### L501.080 #### [facility] Point of Care [address] [place] [address] CBC W/DIFF, AUTOMATED Collected: 09/18/2018 Status: F Source: QUINTER 6:40 AM [facility] REPOSITORY Order Comment: SPECIMEN OBTAINED FROM LINE [...] Lymph 0.86 Performed By: #### L100.0100 #### [facility] [id number] BEDSIDE GLUCOSE Collected: 09/17/2018 Status: F Source: QUINTER 11:08 PM [facility] REPOSITORY TYPE CODE TESTS RESULT OUT OF REFERENCE UNITS RANGE LAB L501.080 70-110 mg/dL High BEDSIDE GLU 182 Result Comment: MANAGEMENT OF PATIENT CARE PER NURSING PROTOCOL Performed By: #### L501.080 #### [facility] Point of Care [address] [facility] [place] [address] BEDSIDE GLUCOSE Collected: 09/17/2018 Status: F Source: QUINTER 4:58 PM [facility] REPOSITORY TYPE CODE TESTS RESULT OUT OF REFERENCE UNITS RANGE LAB L501.080 70-110 mg/dL High BEDSIDE GLU 237 Result Comment: MANAGEMENT OF PATIENT CARE PER NURSING PROTOCOL Performed By: #### L501.080 #### [facility] Point of Care [address] [facility] [place] [address] BEDSIDE GLUCOSE Collected: 09/17/2018 Status: F Source: GISSEL 12:27 PM [facility] REPOSITORY TYPE CODE TESTS RESULT OUT OF REFERENCE UNITS RANGE LAB L501.080 70-110 mg/dL High BEDSIDE GLU 166 Result Comment: MANAGEMENT OF PATIENT CARE PER NURSING PROTOCOL Performed By: #### L501.080 #### [facility] Point of Care [address] [place], [place] [address] BRAIN WITHOUT Observed: 09/17/2018 Status: F Source: GISSEL CONTRAST 7:41 AM [facility] REPOSITORY [facility] Imaging Services [address] [place] [address] Brain without Contrast MR#: [id number] Acct: [id number] Name: Catie WYNN Rep #: [id number] : 1935 F 82 From: Brandy Bueno MD PCP: Clement Bueno MD Status: ADM IN Study: Brain without Contrast Date of Exam: 09/17/18 Exam# [id number] Ordering Dr: Juan Jose Lemon MD STUDY: [...] cytotoxic edema and recent seizure. Electronically Signed: Barndy Bueno MD at 11:19 EST , Service support , CC: Juan Jose Lemon MD; Clement Bueno MD Fleet Maintenance Manager: Signed EMERGENCY DEPARTMENT Observed: 09/17/2018 Status: F Source: QUINTER SUMMARY 7:05 AM [facility] REPOSITORY [facility] Medical Records Department [address] [place] [address] Emergency Department Summary 09/15/18 0827 MR#: [id number] Acct: [id number] Name: Catie WYNN Rep #: [id number] : 1935 82 From: Franklyn Gates DO PCP: Clement Bueno MD Status: ADM IN - ER Visit Summary Date of Service: 09/15/18 Chief Complaint: Unresponsive History of Present Illness: The patient is a 82 F who at 630 this morning was noted at the [facility] by her primary care physician to be [...] doing fine. She is been at the [facility] and in the past week was noted [...] using 20 of etomidate for sedation. 16 Bulgarian oral gastric tube was placed. She was [...] 35 minutes This note was generated with [employer] dictation software. It may contain incorrect words, [...] your Primary Care Provider. Call [facility] ([phone]) or report to the closest Emergency Room. Call 911 if necessary. 09/17/18 0705 <Electronically signed by Franklyn Gates DO> Date Franklyn Gates DO Cosigner Signature (If Indicated): Date CC: Clement Bueno MD CBC W/DIFF, AUTOMATED Collected: 09/17/2018 Status: F Source: GISSEL 6:10 AM [facility] REPOSITORY Order Comment: REDRAW. PREVIOUS SPECIMEN REJECTED [...] Lymph 0.71 Performed By: #### L100.0100 #### [facility] [address] [place], [address] BASIC METABOLIC Collected: 09/17/2018 Status: F Source: GISSEL PROFILE (BMP) 6:10 AM [facility] REPOSITORY Order Comment: REDRAW. PREVIOUS SPECIMEN REJECTED [...] GAP 11 Performed By: #### L500.2500 #### [facility] [address] [facility]. [place], [place], [address] BEDSIDE GLUCOSE Collected: 09/17/2018 Status: F Source: GISSEL 5:54 AM [facility] REPOSITORY TYPE CODE TESTS RESULT OUT OF REFERENCE UNITS RANGE LAB L501.080 70-110 mg/dL High BEDSIDE GLU 204 Result Comment: MANAGEMENT OF PATIENT CARE PER NURSING PROTOCOL Performed By: #### L501.080 #### [facility] Point of Care [address] [place], [place] [address] CBC W/DIFF, AUTOMATED Collected: 09/17/2018 Status: F Source: GISSEL 4:10 AM [facility] REPOSITORY TYPE CODE TESTS RESULT OUT OF [...] Normal 1+ Performed By: #### L100.0100 #### [facility] [facility] [address] [place], [address] BEDSIDE GLUCOSE Collected: 09/16/2018 Status: F Source: GISSEL 11:14 PM [facility] REPOSITORY TYPE CODE TESTS RESULT OUT OF REFERENCE UNITS RANGE LAB L501.080 70-110 mg/dL High BEDSIDE GLU 173 Result Comment: MANAGEMENT OF PATIENT CARE PER NURSING PROTOCOL Performed By: #### L501.080 #### [facility] Point of Care [address] [place] [address] BEDSIDE GLUCOSE Collected: 09/16/2018 Status: F Source: GISSEL 5:43 PM [facility] REPOSITORY TYPE CODE TESTS RESULT OUT OF REFERENCE UNITS RANGE LAB L501.080 70-110 mg/dL High BEDSIDE GLU 167 Result Comment: MANAGEMENT OF PATIENT CARE PER NURSING PROTOCOL Performed By: #### L501.080 #### [facility] Point of Care [address] [place] [address] BEDSIDE GLUCOSE Collected: 09/16/2018 Status: F Source: GISSEL 12:25 PM [facility] REPOSITORY TYPE CODE TESTS RESULT OUT OF REFERENCE UNITS RANGE LAB L501.080 70-110 mg/dL High BEDSIDE GLU 133 Result Comment: MANAGEMENT OF PATIENT CARE PER NURSING PROTOCOL Performed By: #### L501.080 #### [facility] Point of Care [address] [place] [address] ELECTROENCEPHALOGRAM Observed: 09/16/2018 Status: F Source: GISSEL 12:04 PM [facility] REPOSITORY [facility] Pulmonary Services/Neurology [address] [place] [address] MR#: [id number] Acct: [id number] Name: Catie WYNN Rep #: [id number] : 1935 82 From: Donnie Perkins MD [...] slowing. There are no epileptiform changes noted 09/16/181203 <Electronically signed by Donnie Perkins MD> Date Donnie Perkins MD CC: Mohsen Goncalves; Clement Bueno MD; Donnie Perkins MD Date Dictated: 09/16/181201 Date Transcribed: 09/16/181201 Fleet Maintenance Manager: NF Signed BLOOD GASES BY CPS Collected: 09/16/2018 Status: F Source: QUINTER 6:49 AM [facility] REPOSITORY TYPE CODE TESTS RESULT OUT OF [...] ISTAT 98 Performed By: #### L9000.0800 #### [facility] Point of Care [facility] [address] [place], [place] [id number] CONSULTATION Observed: 09/16/2018 Status: F Source: QUINTER 5:49 AM [facility] REPOSITORY [facility] Medical Records Department [address] [place] [address] Consultation 09/15/18 1332 MR#: [id number] Acct: [id number] Name: JIMENEZ WYNN Rep #: [id number] : 1935 82 From: Juan Jose Lemon [...] Status: Chronic (12) Atherosclerotic heart disease of [place] coronary artery without angina pectoris Status: Chronic Qualifiers: [facility] [place] vs. transplanted heart: [place] heart Qualified Code(s): I25.10 - Atherosclerotic heart disease of [place] coronary artery without angina pectoris Comment: Mild [...] medical history listed below, who presented to [facility] on 09/15/2018 after being found unresponsive. 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) I25.10 [...] surgeries Psychiatric History: No pertinent psych hx 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 Lives: Jail Smoking Status: Never smoker Alcohol: None Drugs: [...] AM to 1:45 PM) Code Visit 9xxxx: [id number] Critical care first hour 09/16/18 0549 <Electronically signed by Juan Jose Lemon MD> Date Juan Jose Lemon MD Cosigner Signature (if applicable): Date CC: Juan Jose Lemon MD; Clement Bueno MD; Donnie Perkins MD Signed BEDSIDE GLUCOSE Collected: 09/16/2018 Status: F Source: GISSEL 5:08 AM [facility] REPOSITORY TYPE CODE TESTS RESULT OUT OF RANGE REFERENCE UNITS LAB L501.080 70-110 mg/dL Normal BEDSIDE GLU 99 Result Comment: MANAGEMENT OF PATIENT CARE PER NURSING PROTOCOL Performed By: #### L501.080 #### [facility] Point of Care [address] [place] [address] CBC W/DIFF, AUTOMATED Collected: 09/16/2018 Status: F Source: GISSEL 4:10 AM [facility] REPOSITORY TYPE CODE TESTS RESULT OUT OF [...] Lymph 1.00 Performed By: #### L100.0100 #### [facility] [address] [place], [place], [address] BASIC METABOLIC Collected: 09/16/2018 Status: F Source: GISSEL PROFILE (BMP) 4:10 AM [facility] REPOSITORY TYPE CODE TESTS RESULT OUT OF [...] GAP 10 Performed By: #### L500.2500 #### [facility] [address] [place] [address], [id number] BEDSIDE GLUCOSE Collected: 09/16/2018 Status: F Source: QUINTER 3:32 AM [facility] REPOSITORY TYPE CODE TESTS RESULT OUT OF RANGE REFERENCE UNITS LAB L501.080 70-110 mg/dL Normal BEDSIDE GLU 98 Result Comment: MANAGEMENT OF PATIENT CARE PER NURSING PROTOCOL Performed By: #### L501.080 #### [facility] Point of Care [address] [place], [place] [address] BEDSIDE GLUCOSE Collected: 09/16/2018 Status: F Source: QUINTER 3:05 AM [facility] REPOSITORY TYPE CODE TESTS RESULT OUT OF REFERENCE UNITS RANGE LAB L501.080 70-110 mg/dL Low BEDSIDE GLU 66 Result Comment: MANAGEMENT OF PATIENT CARE PER NURSING PROTOCOL Performed By: #### L501.080 #### [facility] Point of Care [address] [place] [address] BEDSIDE GLUCOSE Collected: 09/15/2018 Status: F Source: GISSEL 11:59 PM [facility] REPOSITORY TYPE CODE TESTS RESULT OUT OF RANGE REFERENCE UNITS LAB L501.080 70-110 mg/dL Normal BEDSIDE GLU 78 Result Comment: MANAGEMENT OF PATIENT CARE PER NURSING PROTOCOL Performed By: #### L501.080 #### [facility] Point of Care [address] [place] [address] BEDSIDE GLUCOSE Collected: 09/15/2018 Status: F Source: GISSEL 11:28 PM [facility] REPOSITORY TYPE CODE TESTS RESULT OUT OF REFERENCE UNITS RANGE LAB L501.080 70-110 mg/dL Low BEDSIDE GLU 51 Result Comment: MANAGEMENT OF PATIENT CARE PER NURSING PROTOCOL Performed By: #### L501.080 #### [facility] Point of Care [address] [place] [address] BEDSIDE GLUCOSE Collected: 09/15/2018 Status: F Source: GISSEL 5:45 PM [facility] REPOSITORY TYPE CODE TESTS RESULT OUT OF RANGE REFERENCE UNITS LAB L501.080 70-110 mg/dL Normal BEDSIDE GLU 82 Result Comment: MANAGEMENT OF PATIENT CARE PER NURSING PROTOCOL Performed By: #### L501.080 #### [facility] Point of Care [address] [place] [address] HISTORY AND PHYSICAL Observed: 09/15/2018 Status: F Source: GISSEL EXAM 2:06 PM [facility] REPOSITORY [facility] Medical Records Department [address] [place] [address] History and Physical 09/15/18 1044 MR#: [id number] Acct: [id number] Name: JIMENEZ WYNN Rep #: [id number] : 1935 82 From: Mohsen Goncalves MD [...] Status: Chronic (9) Atherosclerotic heart disease of [place] coronary artery without angina pectoris Status: Chronic Qualifiers: [facility] [place] vs. transplanted heart: [place] heart Qualified Code(s): I25.10 - Atherosclerotic heart disease of [place] coronary artery without angina pectoris Comment: Mild [...] [facility] because of continuous seizure. At this time, [...] the bedside who is the power of compliance attorney. 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 This note was generated with flck.meation software. It may contain incorrect words, spelling, and punctuation that were not noted in checking the note before signing. Code Visit Inpatient E AND M: [id number] Init Hosp L3 09/15/18 1406 <Electronically signed by Mohsen Goncalves MD> Date Mohsen Goncalves MD Cosigner Signature: Date (if applicable) CC: Mohsen Goncalves; Clement Bueno MD Signed LACTIC ACID Collected: 09/15/2018 Status: F Source: QUINTER 12:30 PM [facility] REPOSITORY Order Comment: Yes/No query for Sepsis Lactate Rule Y TYPE CODE TESTS RESULT OUT OF RANGE REFERENCE UNITS LAB L503.6005 0.4-2.0 mmol/L Normal LACTIC ACID 1.5 Performed By: #### L503.6005 #### [facility] [address] [place], [place], [address] BEDSIDE GLUCOSE Collected: 09/15/2018 Status: F Source: QUINTER 12:19 PM [facility] REPOSITORY TYPE CODE TESTS RESULT OUT OF REFERENCE UNITS RANGE LAB L501.080 70-110 mg/dL High BEDSIDE GLU 162 Result Comment: MANAGEMENT OF PATIENT CARE PER NURSING PROTOCOL Performed By: #### L501.080 #### [facility] Point of Care [address] [place] [address] CONSULTATION Observed: 09/15/2018 Status: F Source: GISSEL 11:38 AM [facility] REPOSITORY [facility] Medical Records Department [address] [place] [address] Consultation 09/15/18 1000 MR#: [id number] Acct: [id number] Name: JIMENEZ WYNN Rep #: [id number] : 1935 82 From: Donnie Perkins MD PCP: Clement Bueno MD Status: ADM IN Y Location: ICU ICU02-1 Reason for Consult Date of Consultation: 09/15/18 Reason for Consultation: status epilepticus History of Present Illness: The patient is a 82 year old F admitted from [facility] with status epilepticus as below. Is now [...] 630 this morning was noted at the [facility] by her primary care physician to be [...] doing fine. 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 Performed By: #### M200.1000 #### [facility] [address] [place] [address]. [place], [address] BLOOD GASES BY CPS Collected: 09/15/2018 Status: F Source: QUINTER 8:32 AM [facility] REPOSITORY TYPE CODE TESTS RESULT OUT OF [...] 5 LAB L9001.1104 Normal Results To ED LAB L9001.1105 Normal Time Given 831 LAB [...] ISTAT 97 Performed By: #### L9000.0800 #### [facility] Point of Care [address] [place] [address] URINE DRUG SCREEN Collected: 09/15/2018 Status: F Source: GISSEL (VISTA) 8:05 AM [facility] REPOSITORY TYPE CODE TESTS RESULT OUT OF [...] Normal NEGATIVE Performed By: #### L505.5000 #### [facility] [address] [place], [place], [address] URINALYSIS, COMPLETE Collected: 09/15/2018 Status: F Source: GISSEL 8:05 AM [facility] REPOSITORY Order Comment: Microscopic field is filled. [...] URINE SEEN Performed By: #### L400.0001 #### [facility] [address] [place], [address] Observed: 09/15/2018 Status: F Source: QUINTER CULTURE, URINE 8:05 AM [facility] REPOSITORY Urine Culture Further studies to follow. ORGANISM 1: Laila albicans Lemmon Count >100,000 Performed By: #### M100.0650 #### [facility] [address] [place], [address] CHEST 1 VIEW Observed: 09/15/2018 Status: F Source: GISSEL (PORTABLE) 8:04 AM [facility] REPOSITORY [facility] Imaging Services [address] [place] [address] Chest 1 View (Portable) MR#: [id number] Acct: [id number] Name: JIMENEZ WYNN Rep #: [id number] : 1935 F 82 From: Brandy Bueno MD PCP: Clement Bueno MD Status: REG ER Study: Chest 1 View (Portable) Date of Exam: 09/15/18 Exam# [id number] Ordering Dr: Franklyn Gates DO STUDY: X-RAY [...] CC: Franklyn Gates DO; Clement Bueno MD Fleet Maintenance Manager: Signed BRAIN/HEAD WITHOUT Observed: 09/15/2018 Status: F Source: GISSEL CONTRAST 8:04 AM [facility] REPOSITORY [facility] Imaging Services [address] [place] [address] Brain/Head without Contrast MR#: [id number] Acct: [id number] Name: JIMENEZ WYNN Rep #: [id number] : 1935 F 82 From: Brandy Bueno MD PCP: Clement Bueno MD Status: REG ER Study: Brain/Head without Contrast Date of Exam: 09/15/18 Exam# [id number] Ordering Dr: Franklyn Gates DO STUDY: CT [...] CC: Franklyn Gates DO; Clement Bueno MD Fleet Maintenance Manager: Signed CBC W/DIFF, AUTOMATED Collected: 09/15/2018 Status: F Source: GISSEL 8:00 AM [facility] REPOSITORY TYPE CODE TESTS RESULT OUT OF [...] Lymph 2.05 Performed By: #### L100.0100 #### [facility] [place], [address] PROTHROMBIN TIME W/INR Collected: 09/15/2018 Status: F Source: GISSEL 8:00 AM [facility] REPOSITORY TYPE CODE TESTS RESULT OUT OF RANGE REFERENCE UNITS LAB L300.4150 11.7-14.9 SECONDS High PROTIME 16.8 LAB L300.4200 Normal INR 1.4 Performed By: #### L300.3900, L300.4310 #### [facility] [address] [place], [address] PARTIAL THROMBOPLAST Collected: 09/15/2018 Status: F Source: QUINTER TIME 8:00 AM [facility] REPOSITORY TYPE CODE TESTS RESULT OUT OF RANGE REFERENCE UNITS LAB L300.4310 24.1-36.2 Seconds Normal PTT 28.1 Performed By: #### L300.3900, L300.4310 #### [facility] [address] [place], [address] COMPREHENSIVE METABOLIC Collected: 09/15/2018 Status: F Source: QUINTER PROFIL 8:00 AM [facility] REPOSITORY TYPE CODE TESTS RESULT OUT OF [...] Performed By: #### L500.4050, L501.2450, L501.4010 #### [facility] [address] [facility] [place], [address] LIPASE Collected: 09/15/2018 Status: F Source: QUINTER 8:00 AM [facility] REPOSITORY TYPE CODE TESTS RESULT OUT OF RANGE REFERENCE UNITS LAB L501.2450 73-393 U/L Normal LIPASE 96 Performed By: #### L500.4050, L501.2450, L501.4010 #### [facility] [address] [facility] [place], [address] TROPONIN-I Collected: 09/15/2018 Status: F Source: QUINTER 8:00 AM [facility] REPOSITORY TYPE CODE TESTS RESULT OUT OF RANGE REFERENCE UNITS LAB L501.4010 <0.045 ng/mL Normal < 0.015 TROPONIN-I Result Comment: TROPONIN-I EXPECTED VALUES <0.045 Negative 0.045 - 0.590 Consistent with Cardiac Damage > OR = 0.600 Critical Value Not every elevated troponin is indicative of TX. These values should be used with clinical judgement in examining the patient's clinical picture for diagnosis. To establish a diagnosis of TX versus myocardial injury, there must be a demonstrated rise and/or fall in the troponin values, in addition to ischemic symptoms, EKG changes, new regional wall motion abnormality, and/or angiographical evidence. PLEASE NOTE: REFERENCE RANGES EDITED 18 Performed By: #### L500.4050, L501.2450, L501.4010 #### [facility] [address] [place], [address] LACTIC ACID Collected: 09/15/2018 Status: F Source: GISSEL 8:00 AM [facility] REPOSITORY Order Comment: Yes/No query for Sepsis Lactate Rule Y TYPE CODE TESTS RESULT OUT OF REFERENCE UNITS RANGE LAB L503.6005 0.4-2.0 mmol/L High alert LACTIC ACID 6.3 Result Comment: Critical Result(s) Called at: 08:50:58 09/15/2018 by: Lachelle Francisco Performed By: #### L503.6005 #### [facility] [address] [place], [address] ALCOHOL, BLOOD Collected: 09/15/2018 Status: F Source: GISSEL (MEDICAL)-SERUM 8:00 AM [facility] REPOSITORY TYPE CODE TESTS RESULT OUT OF [...] fatal coma Performed By: #### L501.9100 #### [facility] [address] [place], [address] Observed: 09/15/2018 Status: F Source: GISSEL CULTURE, BLOOD (WB) 8:00 AM [facility] REPOSITORY BC No growth in 5 days. Performed By: #### M200.1000 #### [facility] [address] [place], [address] BASIC METABOLIC Collected: 09/15/2018 Status: F Source: GISSEL PROFILE (BMP) 6:25 AM [facility] REPOSITORY Order Comment: RM 408 TYPE CODE [...] GAP 12 Performed By: #### L500.2500 #### [facility] [address] [place], [place], [address] CBC-COMPLETE BLOOD CNT Collected: 09/13/2018 Status: F Source: QUINTER NO DIFF 5:20 AM [facility] REPOSITORY TYPE CODE TESTS RESULT OUT OF [...] MPV 9.9 Performed By: #### L100.0500 #### [facility] [address] [place], [place], [address] BASIC METABOLIC Collected: 09/13/2018 Status: F Source: GISSEL PROFILE ([facility]) 5:20 AM [facility] REPOSITORY TYPE CODE TESTS RESULT OUT OF [...] GAP 9 Performed By: #### L500.2500 #### [facility] [address] [place], [place], [address] BASIC METABOLIC Collected: 09/10/2018 Status: F Source: GISSEL PROFILE ([facility]) 6:10 AM [facility] REPOSITORY Order Comment: 408 TYPE CODE TESTS [...] GAP 11 Performed By: #### L500.2500 #### [facility] [address] [place], [place], [address] CBC-COMPLETE BLOOD CNT Collected: 09/10/2018 Status: F Source: GISSEL NO DIFF 6:10 AM [facility] REPOSITORY Order Comment: 408 TYPE CODE TESTS [...] MPV 10.1 Performed By: #### L100.0500 #### [facility] [place], [address] CBC W/DIFF, AUTOMATED Collected: 09/08/2018 Status: F Source: GISSEL 5:30 AM [facility] REPOSITORY Order Comment: RM 408 TYPE CODE [...] Lymph 1.05 Performed By: #### L100.0100 #### [facility] [address] [place], [place], [address] BASIC METABOLIC Collected: 09/08/2018 Status: F Source: GISSEL PROFILE (BMP) 5:30 AM [facility] REPOSITORY Order Comment: RM 408 TYPE CODE [...] GAP 12 Performed By: #### L500.2500 #### [facility] [address] [place], [address] CBC-COMPLETE BLOOD CNT Collected: 09/06/2018 Status: F Source: GISSEL NO DIFF 9:30 AM [facility] REPOSITORY Order Comment: 408 TYPE CODE TESTS [...] MPV 10.2 Performed By: #### L100.0500 #### [facility] [address] [place], [address] BASIC METABOLIC Collected: 09/06/2018 Status: F Source: QUINTER PROFILE (BMP) 9:30 AM [facility] REPOSITORY Order Comment: 408 TYPE CODE TESTS [...] GAP 13 Performed By: #### L500.2500 #### [facility] [address] [place], [address] URINALYSIS, ROUTINE Collected: 09/03/2018 Status: F Source: GISSEL (DIPSTICK) 12:01 AM [facility] REPOSITORY Order Comment: How was Urine Obtained? [...] High LEUK 25 ESTERASE Performed By: #### L400.2010 #### [facility] [address] [place], [place], [address] Observed: 09/03/2018 Status: F Source: GISSEL CULTURE, URINE 12:01 AM [facility] REPOSITORY Urine Culture Culture exhibits no growth. Performed By: #### M100.0650 #### [facility] [address] [place], [place], [address] CBC W/DIFF, AUTOMATED Collected: 08/31/2018 Status: F Source: GISSEL 5:35 AM [facility] REPOSITORY Order Comment: 408 TYPE CODE TESTS [...] 1+ Normal Performed By: #### L100.0100 #### [facility] [place], [address] BASIC METABOLIC Collected: 08/31/2018 Status: F Source: GISSEL PROFILE (BMP) 5:35 AM [facility] REPOSITORY Order Comment: 408 TYPE CODE TESTS [...] GAP 11 Performed By: #### L500.2500 #### [facility] [address] [facility] [place], [address] SURGERY VISIT REPORT Observed: 08/30/2018 Status: F Source: QUINTER 2:22 PM [facility] REPOSITORY [facility] [address] [facility] [place] [address] OFFICE VISIT Date of Service: 08/30/18 MR#: [id number] Acct: [id number] Name: JIMENEZ WYNN Rep #: [id number] : 1935 Provider: Aurora Young MD Age/Sex: 82/F Location: [facility] Status: Signed Intake Intake Visit Reasons: F/U Colectomy 07/21 Chief Complaint: weakness Edge Stainer Required: No Is patient in pain?: No [...] question from the wound nurse at the the hospital at [facility] care facility there may have been coffee-ground stool [...] is agreeable plan and will have the [facility] call with updates on Thursday as far as her intake. We will also recheck a CBC with differential today to see if the platelets of 84 are real. Aurora Young M.D. Pager: [phone] [facility] [address] [place] [address], [address] [place] [address] Office: [phone] Plan Detail Follow Up 2 Weeks Coding Level of Care Code Global Post Op Diagnoses S/P colectomy Z90.49 Wound infection T14.8XXA; L08.9 Large bowel perforation K63.1 08/30/18 1422 <Electronically signed by Aurora Young MD> Date Aurora Young MD Cosigner Signature: Date (if applicable) CC: Clement Bueno MD WOUND CTR HISTORY Observed: 08/30/2018 Status: F Source: GISSEL AND PHYSICAL 1:10 PM [facility] REPOSITORY [facility] [address] [place] [address] Wound Ctr History AND Physical 08/25/18 1245 MR#: [id number] Acct: [id number] Name: JIMENEZ WYNN Rep #: [id number] : 1935 82 From: Ousmane Almanza MD [...] had surgery and was discharged to a [facility] facility however in the facility she had [...] (valve) insufficiency (Chronic) 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 [...] Date Recorded By Document 08/25/18 09:14 DL [id number] 08/25/18 09:34 DL Wound Center Nurse 1 WC - Nurse 2 - General Ulcer CM Notes Start: 08/25/18 09:05 Freq: Status: Active Protocol: Activity Type Activity Date Activity User E-Sign Co-Sign Detail Recorded Client Recorded Date Recorded By Document 08/25/18 10:07 MW [id number] 08/25/18 10:17 MW Wound Center Nurse 2 [Procedure/Treatment] Neurological: Cranial nerves II-XII grossly intact Psych/Mental Status: Normal Affect Debridement Note Post-Debridement Measurements/Treatment WC - Nurse 2 - General Ulcer CM Notes Start: 08/25/18 09:05 Freq: Status: Active Protocol: Activity Type Activity Date Activity User E-Sign Co-Sign Detail Recorded Client Recorded Date Recorded By Document 08/25/18 10:07 MW [id number] 08/25/18 10:17 MW Wound Center Nurse 2 [...] a wound VAC. [facility] sent to [facility]. In the meantime Aquacel extra with Adaptic over top. Change daily. Increased protein intake strongly recommended. Continue antibiotics per recommendation. All the questions were answered and they were asked to call with any further questions or concerns. Follow-up in 1 week. This note was generated with flck.meation software. It may contain incorrect words, spelling, and punctuation that were not noted in checking the note before signing. 08/30/18 1310 <Electronically signed by Ousmane Almanza MD> Date Ousmane Almanza MD CC: Signed CBC-COMPLETE BLOOD CNT Collected: 08/30/2018 Status: F Source: GISSEL NO DIFF 5:35 AM [facility] REPOSITORY Order Comment: 408 TYPE CODE TESTS [...] MPV 10.3 Performed By: #### L100.0500 #### [facility] [address] [place], [place], [address] BASIC METABOLIC Collected: 08/30/2018 Status: F Source: GISSEL PROFILE (BMP) 5:35 AM [facility] REPOSITORY Order Comment: 408 TYPE CODE TESTS [...] GAP 9 Performed By: #### L500.2500 #### [facility] [address] [place], [place], [address] CBC-COMPLETE BLOOD CNT Collected: 08/28/2018 Status: F Source: QUINTER NO DIFF 6:15 AM [facility] REPOSITORY TYPE CODE TESTS RESULT OUT OF [...] MPV 9.9 Performed By: #### L100.0500 #### [facility] [address] [place], [place], [address] BASIC METABOLIC Collected: 08/28/2018 Status: F Source: GISSEL PROFILE ([facility]) 6:15 AM [facility] REPOSITORY TYPE CODE TESTS RESULT OUT OF [...] GAP 8 Performed By: #### L500.2500 #### [facility] [address] [place], [place], [address] SURGERY VISIT REPORT Observed: 08/23/2018 Status: F Source: GISSEL 10:01 AM [facility] REPOSITORY [facility] [address] [place] [address] OFFICE VISIT Date of Service: 08/20/18 MR#: [id number] Acct: [id number] Name: JIMENEZ WYNN Rep #: [id number] : 1935 Provider: Aurora Young MD Age/Sex: 82/F Location: [facility] Status: Signed Intake Intake Visit Reasons: F/U COLECTOMY 07/21/18 Chief Complaint: weakness Edge Stainer Required: No Is patient in pain?: No [...] every 8 hours for 10 days at [facility]. Discussed with patient that she does need to drink boost 4 times a day even though she is not hungry as well as eat a portion of her meals to help with wound healing and strength. Discussed with the patient and family and also called [facility] and discussed with them the need for wet-to-dry dressings twice daily not just daily plan for a follow-up on August 30. Patient is also scheduled to follow- up with wound center next week on Thursday. Aurora Young M.D. Pager: [phone] [facility] [address] [place] [address], [address] [place] [address] Office: [phone] Orders Orders: Plan Detail Follow Up 1-2 weeks Coding Level of Care Code Global Post Op Diagnoses S/P colectomy Z90.49 Large bowel perforation K63.1 Wound infection T14.8XXA; L08.9 08/23/18 1001 <Electronically signed by uArora Young MD> Date [facility] Signature: Date (if applicable) CC: Clement Bueno MD CBC-COMPLETE BLOOD CNT Collected: 08/23/2018 Status: F Source: GISSEL NO DIFF 6:00 AM [facility] REPOSITORY Order Comment: 408 TYPE CODE TESTS [...] MPV 9.4 Performed By: #### L100.0500 #### [facility] [address] [place], [address] BASIC METABOLIC Collected: 08/23/2018 Status: F Source: QUINTER PROFILE (BMP) 6:00 AM [facility] REPOSITORY Order Comment: 408 TYPE CODE TESTS [...] GAP 11 Performed By: #### L500.2500 #### [facility] [address] [place], [address] Observed: 08/20/2018 Status: F Source: QUINTER CULTURE, DEEP WOUND 1:10 PM [facility] REPOSITORY Gram Stain Gram Stain 2+ [...] <=1 S (NF) indicates non-formulary drug at [facility]. Approval by Infectious Disease Specialist required [...] <=20 S (NF) indicates non-formulary drug at [facility]. Approval by Infectious Disease Specialist required [...] <=20 S (NF) indicates non-formulary drug at [facility]. Approval by Infectious Disease Specialist required before non-formulary drugs may be ordered and/or dispensed. Cult, Anaerobic No anaerobic bacteria isolated. Performed By: #### M100.1500 #### [facility] [address] [place], [place], [address] CBC-COMPLETE BLOOD CNT Collected: 08/16/2018 Status: F Source: GISSEL NO DIFF 6:20 AM [facility] REPOSITORY TYPE CODE TESTS RESULT OUT OF [...] MPV 9.2 Performed By: #### L100.0500 #### [facility] [address] [place], [place], [address] BASIC METABOLIC Collected: 08/16/2018 Status: F Source: GISSEL PROFILE (BMP) 6:20 AM [facility] REPOSITORY TYPE CODE TESTS RESULT OUT OF [...] GAP 7 Performed By: #### L500.2500 #### [facility] [address] [place], [address] COMPREHENSIVE METABOLIC Collected: 08/11/2018 Status: F Source: [facility] 7:25 AM [facility] REPOSITORY TYPE CODE TESTS RESULT OUT OF [...] GAP 9 Performed By: #### L500.4050 #### [facility] [address] [facility] [place], [address] CBC W/DIFF, AUTOMATED Collected: 08/11/2018 Status: F Source: QUINTER 7:25 AM [facility] REPOSITORY TYPE CODE TESTS RESULT OUT OF [...] Lymph 0.67 Performed By: #### L100.0100 #### [facility] [address] [place], [address] BASIC METABOLIC Collected: 08/09/2018 Status: F Source: QUINTER PROFILE (BMP) 5:40 AM [facility] REPOSITORY Order Comment: 408 TYPE CODE TESTS [...] GAP 8 Performed By: #### L500.2500 #### [facility] [address] [place], [place], [address] CBC-COMPLETE BLOOD CNT Collected: 08/09/2018 Status: F Source: GISSEL NO DIFF 5:40 AM [facility] REPOSITORY Order Comment: 408 TYPE CODE TESTS [...] MPV 9.6 Performed By: #### L100.0500 #### [facility] [place], [place], [address] Observed: 08/09/2018 Status: F Source: GISSEL CDIFF (MOLECULAR) 3:30 AM [facility] REPOSITORY Comments: SAMPLE FROM COLOSTOMY BAG Cdiff-Molecular Normal Reference Range = Negative C. Diff DNA Negative- No toxigenic C. Diff DNA Detected NAAT METHOD Testing was performed using nucleic acid amplification Performed By: #### M100.6796 #### [facility] [address] [place] [address], [address] DISCHARGE SUMMARY Observed: 08/06/2018 Status: F Source: GISSEL 2:27 PM [facility] REPOSITORY [facility] Medical Records Department [address] [place] [address] Discharge Summary 08/06/18 1357 MR#: [id number] Acct: [id number] Name: JIMENEZ WYNN Rep #: [id number] : 1935 82 From: King MORRISON PCP: Clement Bueno MD Status: DIS IN Y Location: [place] [address] ADDENDUM by Kasandra Almendarez on 08/06/18 at [...] SVT, Takotsubo Cardiomyopathy who presented to the [facility] ED on 07/20/18 w/ history of paresis, [...] transitioned to the PCU. Surgery discontinued NGT 10/4/18. Diet slowly advanced per Surgery discretion ADA, [...] primary care physician in addition to her Materials Buyer within 2 weeks, Surgery within 1 week [...] hospital summary above. Inpatient E AND M: [id number] [facility] Hosp 08/06/18 1427 <Electronically signed by Kasandra Almendarez > Date [...] (valve) insufficiency (Chronic) 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 [...] for further evaluation. Consultations 07/21/18 06:48 Consult: Onc/Wound/hand frame surgical elastic knitter Routine Comment: Reason for Consult:: new colostomy Ion - rag inspector [place] - Cardiology Robotham/Sherly - gen surgery Shasha - ID Operations: - - Exploratory laparotomy with left colon resection, colostomy Procedures: - - TPN, NG tube Summary of Care Provided: The patient is a 82 year old F past medical history as above who presented [facility] the emergency room from [facility] facility with generalized malaise and confusion. She [...] severely debilitated. She will continue to need [facility] with PT OT and ST. She needs ongoing ostomy care. She is now in stable condition and being discharged back to [facility]. She will need to follow-up with general [...] Charly Ross MD When: 2 weeks Disposition: [facility] facility Minutes spent on discharge:: 40 Patient Condition:: Stable Medical Necessity - Tobacco Use Smoking Status: Never smoker Tobacco Use: Non-smoker Meaningful Use Info Meaningful Use Diagnoses (Choose all that apply): None applicable 08/06/18 3464 <Electronically signed by King MORRISON> Date King MORRISON 08/06/18 1416<Electronically signed by Kasandra Almendarez > Cosigner Signature (if applicable): Date Kasandra Almendarez CC: TAMIKO Munguia; Kasandra Almendarez; Clement Bueno MD Signed BEDSIDE GLUCOSE Collected: 08/06/2018 Status: F Source: QUINTER 12:52 PM [facility] REPOSITORY TYPE CODE TESTS RESULT OUT OF REFERENCE UNITS RANGE LAB L501.080 70-110 mg/dL High BEDSIDE GLU 221 Result Comment: MANAGEMENT OF PATIENT CARE PER NURSING PROTOCOL Performed By: #### L501.080 #### [facility] Point of Care [address] [facility] [place] [address] TRANSFER TO EXTENDED Observed: 08/06/2018 Status: F Source: QUINTER CARE 11:53 AM [facility] REPOSITORY [facility] Medical Records Department [address] [place] [address] Transfer to Extended Care MR#: [id number] Acct: [id number] Name: JIMENEZ WYNN Rep #: [id number] : 1935 82 From: King MORRISON PCP: Clement Bueno MD Status: ADM IN [facility] (Patient) (Health Ins. Claim No.) (Day of Discharge to Facility) Certification of patient admission REQUIRED AT TIME OF ADMISSION. I CERTIFY THAT POST-HOSPITAL F SERVICES ARE REQUIRED TO BE GIVEN ON AN IN-PATIENT BASIS BECAUSE OF THE ABOVE NAMED PATIENT'S NEED FOR [facility] CARE ON A CONTINUING BASIS FOR THE CONDITION(S) FOR WHICH HE/SHE WAS RECEIVING IN-PATIENT HOSPITAL SERVICES PRIOR TO HIS/HER TRANSFER TO THE [facility]. 08/06/18 1139 <Electronically signed by King MORRISON> [...] Visit: Yes (8) Atherosclerotic heart disease of [place] coronary artery without angina pectoris Status: Chronic [...] Adverse Reaction (Verified 07/20/18 08:52) Chest tightness Procedures: - - left [...] 120 mL 4x/day w/ medpass- consistency per SEW ON OPERATOR. - Follow Up Care Primary Care Physician: [...] 08/06/2018 Status: F Source: GISSEL 6:32 AM [facility] REPOSITORY TYPE CODE TESTS RESULT OUT OF REFERENCE UNITS RANGE LAB L501.080 70-110 mg/dL High BEDSIDE GLU 186 Result Comment: MANAGEMENT OF PATIENT CARE PER NURSING PROTOCOL Performed By: #### L501.080 #### [facility] Point of Care [address] [place], [place] [id number] CBC-COMPLETE BLOOD CNT Collected: 08/06/2018 Status: F Source: GISSEL NO DIFF 5:45 AM [facility] REPOSITORY Order Comment: SPECIMEN OBTAINED FROM LINE [...] MPV 9.0 Performed By: #### L100.0500 #### [facility] [address] [place], [place], [address] BASIC METABOLIC Collected: 08/06/2018 Status: F Source: GISSEL PROFILE (BMP) 5:45 AM [facility] REPOSITORY Order Comment: SPECIMEN OBTAINED FROM LINE [...] GAP 8 Performed By: #### L500.2500 #### [facility] [address] [facility] [address] BEDSIDE GLUCOSE Collected: 08/05/2018 Status: F Source: QUINTER 9:02 PM [facility] REPOSITORY TYPE CODE TESTS RESULT OUT OF REFERENCE UNITS RANGE LAB L501.080 70-110 mg/dL High BEDSIDE GLU 153 Result Comment: MANAGEMENT OF PATIENT CARE PER NURSING PROTOCOL Performed By: #### L501.080 #### [facility] Point of Care [address] [place] [address] BEDSIDE GLUCOSE Collected: 08/05/2018 Status: F Source: QUINTER 5:28 PM [facility] REPOSITORY TYPE CODE TESTS RESULT OUT OF REFERENCE UNITS RANGE LAB L501.080 70-110 mg/dL High BEDSIDE GLU 179 Result Comment: MANAGEMENT OF PATIENT CARE PER NURSING PROTOCOL Performed By: #### L501.080 #### [facility] Point of Care [address] [place] [address] BEDSIDE GLUCOSE Collected: 08/05/2018 Status: F Source: GISSEL 11:33 AM [facility] REPOSITORY TYPE CODE TESTS RESULT OUT OF REFERENCE UNITS RANGE LAB L501.080 70-110 mg/dL High BEDSIDE GLU 190 Result Comment: MANAGEMENT OF PATIENT CARE PER NURSING PROTOCOL Performed By: #### L501.080 #### [facility] Point of Care [address] [place] [address] BEDSIDE GLUCOSE Collected: 08/05/2018 Status: F Source: GISSEL 5:22 AM [facility] REPOSITORY TYPE CODE TESTS RESULT OUT OF REFERENCE UNITS RANGE LAB L501.080 70-110 mg/dL High BEDSIDE GLU 134 Result Comment: MANAGEMENT OF PATIENT CARE PER NURSING PROTOCOL Performed By: #### L501.080 #### [facility] Point of Care [address] [place] [address] BEDSIDE GLUCOSE Collected: 08/04/2018 Status: F Source: GISSEL 11:05 PM [facility] REPOSITORY TYPE CODE TESTS RESULT OUT OF REFERENCE UNITS RANGE LAB L501.080 70-110 mg/dL High BEDSIDE GLU 143 Result Comment: MANAGEMENT OF PATIENT CARE PER NURSING PROTOCOL Performed By: #### L501.080 #### [facility] Point of Care [address] [place] [address] BEDSIDE GLUCOSE Collected: 08/04/2018 Status: F Source: GISSEL 5:00 PM [facility] REPOSITORY TYPE CODE TESTS RESULT OUT OF REFERENCE UNITS RANGE LAB L501.080 70-110 mg/dL High BEDSIDE GLU 152 Result Comment: MANAGEMENT OF PATIENT CARE PER NURSING PROTOCOL Performed By: #### L501.080 #### [facility] Point of Care [address] [place] [address] BEDSIDE GLUCOSE Collected: 08/04/2018 Status: F Source: GISSEL 11:55 AM [facility] REPOSITORY TYPE CODE TESTS RESULT OUT OF REFERENCE UNITS RANGE LAB L501.080 70-110 mg/dL High BEDSIDE GLU 182 Result Comment: MANAGEMENT OF PATIENT CARE PER NURSING PROTOCOL Performed By: #### L501.080 #### [facility] Point of Care [address] [place] [address] Observed: 08/04/2018 Status: F Source: GISSLE CULTURE, WOUND 8:50 AM [facility] REPOSITORY Comments: abdominal wound Gram Stain Gram [...] 160 R (NF) indicates non-formulary drug at [facility]. Approval by Infectious Disease Specialist required before non-formulary drugs may be ordered and/or dispensed. Performed By: #### M100.1400 #### [facility] [address] [facility] [place], [address] BEDSIDE GLUCOSE Collected: 08/04/2018 Status: F Source: QUINTER 5:16 AM [facility] REPOSITORY TYPE CODE TESTS RESULT OUT OF REFERENCE UNITS RANGE LAB L501.080 70-110 mg/dL High BEDSIDE GLU 159 Result Comment: MANAGEMENT OF PATIENT CARE PER NURSING PROTOCOL Performed By: #### L501.080 #### [facility] Point of Care [address] [place] [address] BASIC METABOLIC Collected: 08/04/2018 Status: F Source: QUINTER PROFILE (BMP) 4:30 AM [facility] REPOSITORY TYPE CODE TESTS RESULT OUT OF [...] GAP 7 Performed By: #### L500.2500 #### [facility] [address] [facility] [place], [address] BEDSIDE GLUCOSE Collected: 08/03/2018 Status: F Source: QUINTER 11:37 PM [facility] REPOSITORY TYPE CODE TESTS RESULT OUT OF REFERENCE UNITS RANGE LAB L501.080 70-110 mg/dL High BEDSIDE GLU 173 Result Comment: MANAGEMENT OF PATIENT CARE PER NURSING PROTOCOL Performed By: #### L501.080 #### [facility] Point of Care [address] [facility] [place] [address] BEDSIDE GLUCOSE Collected: 08/03/2018 Status: F Source: QUINTER 5:59 PM [facility] REPOSITORY TYPE CODE TESTS RESULT OUT OF REFERENCE UNITS RANGE LAB L501.080 70-110 mg/dL High BEDSIDE GLU 147 Result Comment: MANAGEMENT OF PATIENT CARE PER NURSING PROTOCOL Performed By: #### L501.080 #### [facility] Point of Care [address] [place] [address] BEDSIDE GLUCOSE Collected: 08/03/2018 Status: F Source: QUINTER 12:36 PM [facility] REPOSITORY TYPE CODE TESTS RESULT OUT OF REFERENCE UNITS RANGE LAB L501.080 70-110 mg/dL High BEDSIDE GLU 175 Result Comment: MANAGEMENT OF PATIENT CARE PER NURSING PROTOCOL Performed By: #### L501.080 #### [facility] Point of Care [address] [place], [place] [address] CBC-COMPLETE BLOOD CNT Collected: 08/03/2018 Status: F Source: GISSEL NO DIFF 8:42 AM [facility] REPOSITORY TYPE CODE TESTS RESULT OUT OF [...] MPV 10.0 Performed By: #### L100.0500 #### [facility] [address] [place], [place], [address] BASIC METABOLIC Collected: 08/03/2018 Status: F Source: GISSEL PROFILE (BMP) 8:42 AM [facility] REPOSITORY TYPE CODE TESTS RESULT OUT OF [...] Performed By: #### L500.2500, L500.3400, L506.0500 #### [facility] [address] [place], [address] LIVER PROFILE Collected: 08/03/2018 Status: F Source: QUINTER 8:42 AM [facility] REPOSITORY TYPE CODE TESTS RESULT OUT OF [...] Performed By: #### L500.2500, L500.3400, L506.0500 #### [facility] [address] [place], [address] PREALBUMIN Collected: 08/03/2018 Status: F Source: QUINTER 8:42 AM [facility] REPOSITORY TYPE CODE TESTS RESULT OUT OF REFERENCE UNITS RANGE LAB L506.0500 20.0-40.0 mg/dL Low PREALBUMIN 11.1 Performed By: #### L500.2500, L500.3400, L506.0500 #### [facility] [address] [place], [address] BEDSIDE GLUCOSE Collected: 08/03/2018 Status: F Source: GISSEL 5:34 AM [facility] REPOSITORY TYPE CODE TESTS RESULT OUT OF REFERENCE UNITS RANGE LAB L501.080 70-110 mg/dL High BEDSIDE GLU 143 Result Comment: MANAGEMENT OF PATIENT CARE PER NURSING PROTOCOL Performed By: #### L501.080 #### [facility] Point of Care [address] [place] [address] BEDSIDE GLUCOSE Collected: 08/03/2018 Status: F Source: GISSEL 12:21 AM [facility] REPOSITORY TYPE CODE TESTS RESULT OUT OF REFERENCE UNITS RANGE LAB L501.080 70-110 mg/dL High BEDSIDE GLU 140 Result Comment: MANAGEMENT OF PATIENT CARE PER NURSING PROTOCOL Performed By: #### L501.080 #### [facility] Point of Care [address] [place] [address] BEDSIDE GLUCOSE Collected: 08/02/2018 Status: F Source: GISSEL 5:59 PM [facility] REPOSITORY TYPE CODE TESTS RESULT OUT OF REFERENCE UNITS RANGE LAB L501.080 70-110 mg/dL High BEDSIDE GLU 140 Result Comment: MANAGEMENT OF PATIENT CARE PER NURSING PROTOCOL Performed By: #### L501.080 #### [facility] Point of Care [address] [place] [address] ABD INC DECUB Observed: 08/02/2018 Status: F Source: GISSEL AND/OR ERECT 12:36 PM [facility] REPOSITORY [facility] Imaging Services [address] [place] [address] Abd Inc Decub and/or Erect MR#: [id number] Acct: [id number] Name: JIMENEZ WYNN Rep #: [id number] : 1935 F 82 From: Jourdan De La Fuente MD PCP: Clement Bueno MD Status: ADM IN Study: Abd Inc Decub and/or Erect Date of Exam: 08/02/18 Exam# [id number] Ordering Dr: Aurora Young MD STUDY: X-RAY [...] La Fuente MD at 15:55 EDT Tel [phone], Service support , CC: Clement Bueno MD; Aurora Young MD Fleet 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 Point of Care [facility] [place] [address] BASIC METABOLIC Collected: 08/02/2018 Status: F Source: GISSEL PROFILE (BMP) 6:32 AM [facility] REPOSITORY TYPE CODE TESTS RESULT OUT OF [...] 10 Performed By: #### L500.2500, L501.5200 #### [facility] [address] [place], [address] MAGNESIUM Collected: 08/02/2018 Status: F Source: QUINTER 6:32 AM [facility] REPOSITORY TYPE CODE TESTS RESULT OUT OF RANGE REFERENCE UNITS LAB L501.5200 1.6-2.6 mg/dL Normal MG 2.2 Performed By: #### L500.2500, L501.5200 #### [facility] [address] [place], [address] PHOSPHORUS Collected: 08/02/2018 Status: F Source: QUINTER 6:32 AM [facility] REPOSITORY TYPE CODE TESTS RESULT OUT OF RANGE REFERENCE UNITS LAB L501.2300 2.5-4.9 mg/dL Normal PHOS 3.7 Performed By: #### L501.2300 #### [facility] [address] [place], [address] CBC W/DIFF, AUTOMATED Collected: 08/02/2018 Status: C Source: QUINTER 6:32 AM [facility] REPOSITORY Order Comment: REDRAW. PREVIOUS SPECIMEN REJECTED [...] March sylvia Performed By: #### L100.0100 #### [facility] [address] [place], [place], [address] BEDSIDE GLUCOSE Collected: 08/02/2018 Status: F Source: GISSEL 5:33 AM [facility] REPOSITORY TYPE CODE TESTS RESULT OUT OF REFERENCE UNITS RANGE LAB L501.080 70-110 mg/dL High BEDSIDE GLU 113 Result Comment: MANAGEMENT OF PATIENT CARE PER NURSING PROTOCOL Performed By: #### L501.080 #### [facility] Point of Care [address] [place] [address] BEDSIDE GLUCOSE Collected: 08/01/2018 Status: F Source: GISSEL 11:56 PM [facility] REPOSITORY TYPE CODE TESTS RESULT OUT OF RANGE REFERENCE UNITS LAB L501.080 70-110 mg/dL Normal BEDSIDE GLU 94 Result Comment: MANAGEMENT OF PATIENT CARE PER NURSING PROTOCOL Performed By: #### L501.080 #### [facility] Point of Care [address] [place] [address] BEDSIDE GLUCOSE Collected: 08/01/2018 Status: F Source: GISSEL 6:10 PM [facility] REPOSITORY TYPE CODE TESTS RESULT OUT OF REFERENCE UNITS RANGE LAB L501.080 70-110 mg/dL High BEDSIDE GLU 195 Result Comment: MANAGEMENT OF PATIENT CARE PER NURSING PROTOCOL Performed By: #### L501.080 #### [facility] Point of Care [address] [place] [address] TYPE AND SCREEN Collected: 08/01/2018 Status: F Source: GISSEL 12:16 PM [facility] REPOSITORY Order Comment: CMV NEG? N Number [...] NEGATIVE Screen Performed By: #### B101.7450 #### [facility] [address] [place], [address] RC Collected: 08/01/2018 Status: F Source: GISSEL 12:16 PM [facility] REPOSITORY TYPE CODE TESTS RESULT OUT OF REFERENCE UNITS RANGE LAB U100.0000 [id number] TRANSFUSED PRODUCT: T AND S with Crossmatch, Red Cells COUNT: 1 Performed By: #### U100.0000 #### [facility] - refer to report for specific site BEDSIDE GLUCOSE Collected: 08/01/2018 Status: F Source: GISSEL 11:28 AM [facility] REPOSITORY TYPE CODE TESTS RESULT OUT OF RANGE REFERENCE UNITS LAB L501.080 70-110 mg/dL Normal BEDSIDE GLU 110 Result Comment: MANAGEMENT OF PATIENT CARE PER NURSING PROTOCOL Performed By: #### L501.080 #### [facility] Point of Care [address] [place] [address] BEDSIDE GLUCOSE Collected: 08/01/2018 Status: F Source: GISSEL 7:58 AM [facility] REPOSITORY TYPE CODE TESTS RESULT OUT OF RANGE REFERENCE UNITS LAB L501.080 70-110 mg/dL Normal BEDSIDE GLU 96 Result Comment: MANAGEMENT OF PATIENT CARE PER NURSING PROTOCOL Performed By: #### L501.080 #### [facility] Point of Care [address] [place] [address] BEDSIDE GLUCOSE Collected: 08/01/2018 Status: F Source: GISSEL 5:26 AM [facility] REPOSITORY TYPE CODE TESTS RESULT OUT OF RANGE REFERENCE UNITS LAB L501.080 70-110 mg/dL Normal BEDSIDE GLU 89 Result Comment: MANAGEMENT OF PATIENT CARE PER NURSING PROTOCOL Performed By: #### L501.080 #### [facility] Point of Care [address] [place] [address] CBC W/DIFF, AUTOMATED Collected: 08/01/2018 Status: F Source: GISSEL 5:10 AM [facility] REPOSITORY Order Comment: SPECIMEN OBTAINED FROM LINE [...] Lymph 1.34 Performed By: #### L100.0100 #### [facility] [address] [place], [address] BASIC METABOLIC Collected: 08/01/2018 Status: F Source: QUINTER PROFILE ([facility]) 5:10 AM [facility] REPOSITORY Order Comment: SPECIMEN OBTAINED FROM LINE [...] GAP 8 Performed By: #### L500.2500 #### [facility] [address] [facility] [address] BEDSIDE GLUCOSE Collected: 08/01/2018 Status: F Source: GISSEL 12:00 AM [facility] REPOSITORY TYPE CODE TESTS RESULT OUT OF RANGE REFERENCE UNITS LAB L501.080 70-110 mg/dL Normal BEDSIDE GLU 105 Result Comment: MANAGEMENT OF PATIENT CARE PER NURSING PROTOCOL Performed By: #### L501.080 #### [facility] Point of Care [address] [facility] [place] [address] BEDSIDE GLUCOSE Collected: 07/31/2018 Status: F Source: GISSEL 6:02 PM [facility] REPOSITORY TYPE CODE TESTS RESULT OUT OF REFERENCE UNITS RANGE LAB L501.080 70-110 mg/dL High BEDSIDE GLU 128 Result Comment: MANAGEMENT OF PATIENT CARE PER NURSING PROTOCOL Performed By: #### L501.080 #### [facility] Point of Care [address] [place] [address] BEDSIDE GLUCOSE Collected: 07/31/2018 Status: F Source: GISSEL 11:42 AM [facility] REPOSITORY TYPE CODE TESTS RESULT OUT OF REFERENCE UNITS RANGE LAB L501.080 70-110 mg/dL High BEDSIDE GLU 118 Result Comment: MANAGEMENT OF PATIENT CARE PER NURSING PROTOCOL Performed By: #### L501.080 #### [facility] Point of Care [address] [place] [address] BEDSIDE GLUCOSE Collected: 07/31/2018 Status: F Source: GISSEL 5:03 AM [facility] REPOSITORY TYPE CODE TESTS RESULT OUT OF REFERENCE UNITS RANGE LAB L501.080 70-110 mg/dL High BEDSIDE GLU 163 Result Comment: MANAGEMENT OF PATIENT CARE PER NURSING PROTOCOL Performed By: #### L501.080 #### [facility] Point of Care [address] [place] [address] BASIC METABOLIC Collected: 07/31/2018 Status: F Source: GISSEL PROFILE (BMP) 4:55 AM [facility] REPOSITORY TYPE CODE TESTS RESULT OUT OF [...] 10 Performed By: #### L500.2500, L501.5200 #### [facility] [address] [facility] [address] [place], [place], [address] MAGNESIUM Collected: 07/31/2018 Status: F Source: GISSEL 4:55 AM [facility] REPOSITORY TYPE CODE TESTS RESULT OUT OF RANGE REFERENCE UNITS LAB L501.5200 1.6-2.6 mg/dL Normal MG 2.1 Performed By: #### L500.2500, L501.5200 #### [facility] [address] [facility] [place], [address] CBC-COMPLETE BLOOD CNT Collected: 07/31/2018 Status: F Source: GISSEL NO DIFF 4:55 AM [facility] REPOSITORY TYPE CODE TESTS RESULT OUT OF [...] MPV 11.1 Performed By: #### L100.0500 #### [facility] [address] [facility] [place], [place], [address] BEDSIDE GLUCOSE Collected: 07/30/2018 Status: F Source: GISSEL 11:15 PM [facility] REPOSITORY TYPE CODE TESTS RESULT OUT OF REFERENCE UNITS RANGE LAB L501.080 70-110 mg/dL High BEDSIDE GLU 229 Result Comment: MANAGEMENT OF PATIENT CARE PER NURSING PROTOCOL Performed By: #### L501.080 #### [facility] Point of Care [address] [place] [address] BEDSIDE GLUCOSE Collected: 07/30/2018 Status: F Source: GISSEL 5:38 PM [facility] REPOSITORY TYPE CODE TESTS RESULT OUT OF REFERENCE UNITS RANGE LAB L501.080 70-110 mg/dL High BEDSIDE GLU 258 Result Comment: MANAGEMENT OF PATIENT CARE PER NURSING PROTOCOL Performed By: #### L501.080 #### [facility] Point of Care [address] [place] [address] BEDSIDE GLUCOSE Collected: 07/30/2018 Status: F Source: GISSEL 11:56 AM [facility] REPOSITORY TYPE CODE TESTS RESULT OUT OF REFERENCE UNITS RANGE LAB L501.080 70-110 mg/dL High BEDSIDE GLU 289 Result Comment: MANAGEMENT OF PATIENT CARE PER NURSING PROTOCOL Performed By: #### L501.080 #### [facility] Point of Care [address] [facility] [place] [address] CBC W/DIFF, AUTOMATED Collected: 07/30/2018 Status: F Source: GISSEL 6:00 AM [facility] REPOSITORY TYPE CODE TESTS RESULT OUT OF [...] Lymph 1.24 Performed By: #### L100.0100 #### [facility] [address] [place], [address] BASIC METABOLIC Collected: 07/30/2018 Status: F Source: QUINTER PROFILE ([facility]) 6:00 AM [facility] REPOSITORY TYPE CODE TESTS RESULT OUT OF [...] Performed By: #### L500.2500, L501.2300, L501.5200 #### [facility] [address] [place], [address] PHOSPHORUS Collected: 07/30/2018 Status: F Source: GISSEL 6:00 AM [facility] REPOSITORY TYPE CODE TESTS RESULT OUT OF RANGE REFERENCE UNITS LAB L501.2300 2.5-4.9 mg/dL Low PHOS 1.9 Performed By: #### L500.2500, L501.2300, L501.5200 #### [facility] [address] [place], [address] MAGNESIUM Collected: 07/30/2018 Status: F Source: GISSEL 6:00 AM [facility] REPOSITORY TYPE CODE TESTS RESULT OUT OF RANGE REFERENCE UNITS LAB L501.5200 1.6-2.6 mg/dL Low MG 1.4 Performed By: #### L500.2500, L501.2300, L501.5200 #### [facility] [address] [place], [address] BEDSIDE GLUCOSE Collected: 07/30/2018 Status: F Source: GISSEL 5:37 AM [facility] REPOSITORY TYPE CODE TESTS RESULT OUT OF REFERENCE UNITS RANGE LAB L501.080 70-110 mg/dL High BEDSIDE GLU 260 Result Comment: MANAGEMENT OF PATIENT CARE PER NURSING PROTOCOL Performed By: #### L501.080 #### [facility] Point of Care [address] [place] [address] BEDSIDE GLUCOSE Collected: 07/30/2018 Status: F Source: GISSEL 12:25 AM [facility] REPOSITORY TYPE CODE TESTS RESULT OUT OF REFERENCE UNITS RANGE LAB L501.080 70-110 mg/dL High BEDSIDE GLU 278 Result Comment: MANAGEMENT OF PATIENT CARE PER NURSING PROTOCOL Performed By: #### L501.080 #### [facility] Point of Care [address] [place] [address] BEDSIDE GLUCOSE Collected: 07/29/2018 Status: F Source: GISSEL 6:24 PM [facility] REPOSITORY TYPE CODE TESTS RESULT OUT OF REFERENCE UNITS RANGE LAB L501.080 70-110 mg/dL High BEDSIDE GLU 198 Result Comment: MANAGEMENT OF PATIENT CARE PER NURSING PROTOCOL Performed By: #### L501.080 #### [facility] Point of Care [address] [place] [address] BEDSIDE GLUCOSE Collected: 07/29/2018 Status: F Source: GISSEL 12:07 PM [facility] REPOSITORY TYPE CODE TESTS RESULT OUT OF REFERENCE UNITS RANGE LAB L501.080 70-110 mg/dL High BEDSIDE GLU 153 Result Comment: MANAGEMENT OF PATIENT CARE PER NURSING PROTOCOL Performed By: #### L501.080 #### [facility] Point of Care [address] [place] [address] ABDOMEN SINGLE VIEW Observed: 07/29/2018 Status: F Source: GISSEL (PORTABLE) 8:42 AM [facility] REPOSITORY [facility] Imaging Services [address] [place] [address] Abdomen Single View (Portable) MR#: [id number] Acct: [id number] Name: JIMENEZ WYNN Rep #: [id number] : 1935 F 82 From: Jourdan De La Fuente MD PCP: Clement Bueno MD Status: ADM IN Study: Abdomen Single View (Portable) Date of Exam: 07/29/18 Exam# [id number] Ordering Dr: Aurora Young MD STUDY: X-RAY [...] La Fuente MD at 9:13 EDT Tel [phone], Service support , CC: Clement Bueno MD; Aurora Young MD Fleet Maintenance Manager: Signed BEDSIDE GLUCOSE Collected: 07/29/2018 Status: F Source: GISSEL 6:13 AM [facility] REPOSITORY TYPE CODE TESTS RESULT OUT OF REFERENCE UNITS RANGE LAB L501.080 70-110 mg/dL High BEDSIDE GLU 145 Result Comment: MANAGEMENT OF PATIENT CARE PER NURSING PROTOCOL Performed By: #### L501.080 #### [facility] Point of Care [address] [place] [address] BASIC METABOLIC Collected: 07/29/2018 Status: F Source: GISSEL PROFILE (BMP) 5:10 AM [facility] REPOSITORY Order Comment: SPECIMEN OBTAINED FROM LINE [...] GAP 8 Performed By: #### L500.2500 #### [facility] [address] [place], [address] CBC W/DIFF, AUTOMATED Collected: 07/29/2018 Status: F Source: QUINTER 5:10 AM [facility] REPOSITORY Order Comment: SPECIMEN OBTAINED FROM LINE [...] GRAN 1+ Performed By: #### L100.0100 #### [facility] [address] [facility] [address] BEDSIDE GLUCOSE Collected: 07/28/2018 Status: F Source: QUINTER 11:51 PM [facility] REPOSITORY TYPE CODE TESTS RESULT OUT OF RANGE REFERENCE UNITS LAB L501.080 70-110 mg/dL Normal BEDSIDE GLU 106 Result Comment: MANAGEMENT OF PATIENT CARE PER NURSING PROTOCOL Performed By: #### L501.080 #### [facility] Point of Care [address] [place] [address] BEDSIDE GLUCOSE Collected: 07/28/2018 Status: F Source: QUINTER 5:26 PM [facility] REPOSITORY TYPE CODE TESTS RESULT OUT OF RANGE REFERENCE UNITS LAB L501.080 70-110 mg/dL Normal BEDSIDE GLU 109 Result Comment: MANAGEMENT OF PATIENT CARE PER NURSING PROTOCOL Performed By: #### L501.080 #### [facility] Point of Care [address] [facility] [place] [address] BEDSIDE GLUCOSE Collected: 07/28/2018 Status: F Source: QUINTER 12:19 PM [facility] REPOSITORY TYPE CODE TESTS RESULT OUT OF RANGE REFERENCE UNITS LAB L501.080 70-110 mg/dL Normal BEDSIDE GLU 107 Result Comment: MANAGEMENT OF PATIENT CARE PER NURSING PROTOCOL Performed By: #### L501.080 #### [facility] Point of Care [address] [place] [address] CONSULTATION Observed: 07/28/2018 Status: F Source: QUINTER 12:08 PM [facility] REPOSITORY [facility] Medical Records Department [address] [address] Consultation 07/28/18 1157 MR#: [id number] Acct: [id number] Name: JIMENEZ WYNN Rep #: [id number] : 1935 82 From: Lokesh Pulliam MD PCP: Clement Bueno MD Status: ADM IN Y Location: [address] Problem List (1) Large bowel perforation Status: [...] of icu, line still in place in RIJ, feeling ok, starting some po intake, no [...] (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 Will follow, thank you. 07/28/18 3587 <Electronically signed by Lokesh Pulliam MD> Date Lokesh Gray Signature (if applicable): Date CC: Juan Jose Lemon MD; Clement Bueno MD; Charly Ross MD; Lokesh Pulliam MD; Aurora Young MD Signed Observed: 07/28/2018 Status: F Source: GISSEL CULTURE, BLOOD (WB) 12:00 PM [facility] REPOSITORY UTO X 6 3 PHLEBS TRIED Has pt arrived? Y BC No growth in 5 days. Performed By: #### M200.1000 #### [facility] [address] [facility] [place], [address] 12 LEAD ELECTROCARDIOGRAM Observed: 07/28/2018 Status: F Source: GISSEL 9:39 AM [facility] REPOSITORY [facility] Cardiovascular Services [address] [place] [address] 12 Lead EKG 07/21/18 192 MR#: [id number] Acct: [id number] Name: JIMENEZ WYNN Rep #: [id number] : 1935 82 From: Markus Cueto MD Attending Dr: Arnaud Lewis MD Status: ADM IN Ordering Dr: Eriberto Huang MD Date: 07/21/18 Location: [facility] Sex: F C Admitted: 07/20/18 Test Reason [...] 08:04, Significant changes have occurred Confirmed by MARKUS CUETO MD ([id number]), assistant film editor SADIQ BUENO ([id number]) on 07/28/2018 9:38:36 AM Referred By: Confirmed By:MARKUS CUETO MD 07/28/18 0938 Date Markus Cueto MD CC: Arnaud Lewis MD; Clement Bueno MD; Eriberto Huang MD Signed 12 LEAD ELECTROCARDIOGRAM Observed: 07/28/2018 Status: F Source: GISSEL 9:38 AM [facility] REPOSITORY [facility] Cardiovascular Services [address] [place] [address] 12 Lead EKG 07/22/18 0328 MR#: [id number] Acct: [id number] Name: JIMENEZ WYNN Rep #: [id number] : 1935 82 From: Markus Cueto MD Attending Dr: Arnaud Lewis MD Status: ADM IN Ordering Dr: Adrien Ford MD Date: 07/22/18 Location: [facility] Sex: F C Admitted: 07/20/18 Test Reason [...] UNCONFIRMED Confirmed by NORY MERCER, MARKUS ([id number]), assistant film editor SADIQ BUENO ([id number]) on 07/28/2018 9:37:46 AM Referred By: AILEEN Confirmed By:MARKUS CUETO MD 07/28/18 0937 Date Markus Cueto MD CC: Arnaud Lewis MD; Clement Bueno MD; Adrien Ford MD Signed 12 LEAD ELECTROCARDIOGRAM Observed: 07/28/2018 Status: F Source: GISSEL 9:38 AM [facility] REPOSITORY [facility] [place] Cardiovascular Services [address] [place] [address] 12 Lead EKG 07/22/18317 MR#: [id number] Acct: [id number] Name: JIMENEZ WYNN Rep #: [id number] : 1935 82 From: Markus Cueto MD [...] available Confirmed by MARKUS CUETO MD ([id number]), assistant film editor SADIQ BUENO ([id number]) on 07/28/2018 9:38:06 AM Referred By: AILEEN Confirmed By:MARKUS CUETO MD 07/28/18937 Date Markus Cueto MD CC: Arnaud Lewis MD; Clement Bueno MD; Adrien Ford MD Signed 12 LEAD ELECTROCARDIOGRAM Observed: 07/28/2018 Status: F Source: QUINTER 9:38 AM [facility] REPOSITORY [facility] Cardiovascular Services [address] [place] [address] 12 Lead EKG 07/21/181925 MR#: [id number] Acct: [id number] Name: JIMENEZ WYNN Rep #: [id number] : 1935 82 From: Markus Cueto MD Attending Dr: Arnaud Lewis MD Status: ADM IN Ordering Dr: Eriberto Huang MD Date: 07/21/18 Location: [facility] Sex: F C Admitted: 07/20/18 Test Reason [...] IS UNCONFIRMED Confirmed by MARKUS CUETO MD ([id number]), assistant film editor SADIQ BUENO ([id number]) on 07/28/2018 9:38:22 AM Referred By: Confirmed By:MARKUS CUETO MD 07/28/18 0938 Date Markus Cueto MD CC: Arnaud Lewis MD; Clement Bueno MD; Eriberto Huang MD Signed 12 LEAD ELECTROCARDIOGRAM Observed: 07/28/2018 Status: F Source: QUINTER 9:37 AM [facility] Cardiovascular Services [address] [place] [address] 12 Lead EKG 07/22/18 0349 MR#: [id number] Acct: [id number] Name: JIMENEZ WYNN Rep #: [id number] : 1935 82 From: Markus Cueto MD Attending Dr: Arnaud Lewis MD Status: ADM IN Ordering Dr: Adrien Ford MD Date: 07/22/18 Location: [facility] Sex: F C Admitted: 07/20/18 Test Reason [...] IS UNCONFIRMED Confirmed by MARKUS CUETO MD ([id number]), assistant film editor SADIQ BUENO ([id number]) on 07/28/2018 9:36:49 AM Referred By: AILEEN Confirmed By:MARKUS CUETO MD 07/28/18 0936 Date Markus Cueto MD CC: Arnaud Lewis MD; Clement Bueno MD; Adrien Ford MD Signed 12 LEAD ELECTROCARDIOGRAM Observed: 07/28/2018 Status: F Source: GISSEL 9:37 AM [facility] REPOSITORY [facility] Cardiovascular Services [address] [place] [address] 12 Lead EKG 07/22/18 0329 MR#: [id number] Acct: [id number] Name: JIMENEZ WYNN Rep #: [id number] : 1935 82 From: Markus Cueto MD Attending Dr: Arnaud Lewis MD Status: ADM IN Ordering Dr: Adrien Ford MD Date: 07/22/18 Location: [facility] Sex: F C Admitted: 07/20/18 Test Reason [...] UNCONFIRMED Confirmed by NORY MERCER, MARKUS ([id number]), assistant film editor SADIQ BUENO ([id number]) on 07/28/2018 9:37:23 AM Referred By: AILEEN Confirmed By:MARKUS CUETO MD 07/28/18 0937 Date Markus Cueto MD CC: Arnaud Lewis MD; Clement Bueno MD; Adrien Ford MD Signed ABDOMEN/PEL W ORAL CONT Observed: 07/28/2018 Status: F Source: GISSEL ONLY 7:36 AM [facility] REPOSITORY [facility] Imaging Services [address] [place] [address] Abdomen/Pel W ORAL Cont Only MR#: [id number] Acct: [id number] Name: JIMENEZ WYNN Rep #: [id number] : 1935 F 82 From: Jourdan De La Fuente MD PCP: Clement Bueno MD Status: ADM IN Study: Abdomen/Pel W ORAL Cont Only Date of Exam: 07/28/18 Exam# [id number] Ordering Dr: Aurora Young MD STUDY: CT [...] La Fuente MD at 13:30 EDT Tel [phone], Service support , CC: Clement Bueno MD; Aurora Young MD Fleet Maintenance Manager: Signed BEDSIDE GLUCOSE Collected: 07/28/2018 Status: F Source: QUINTER 6:12 AM [facility] REPOSITORY TYPE CODE TESTS RESULT OUT OF REFERENCE UNITS RANGE LAB L501.080 70-110 mg/dL High BEDSIDE GLU 111 Result Comment: MANAGEMENT OF PATIENT CARE PER NURSING PROTOCOL Performed By: #### L501.080 #### [facility] Point of Care [facility] [address] [place], [place] [address] BASIC METABOLIC Collected: 07/28/2018 Status: F Source: QUINTER PROFILE (BMP) 4:25 AM [facility] REPOSITORY TYPE CODE TESTS RESULT OUT OF [...] GAP 7 Performed By: #### L500.2500 #### [facility] [address] [place], [address] CBC W/DIFF, AUTOMATED Collected: 07/28/2018 Status: F Source: QUINTER 4:25 AM [facility] REPOSITORY TYPE CODE TESTS RESULT OUT OF [...] COMMENT SCANNED Performed By: #### L100.0100 #### [facility] [address] [facility] [place], [address] BEDSIDE GLUCOSE Collected: 07/27/2018 Status: F Source: QUINTER 11:49 PM [facility] REPOSITORY TYPE CODE TESTS RESULT OUT OF REFERENCE UNITS RANGE LAB L501.080 70-110 mg/dL High BEDSIDE GLU 229 Result Comment: MANAGEMENT OF PATIENT CARE PER NURSING PROTOCOL Performed By: #### L501.080 #### [facility] Point of Care [address] [facility] [place] [address] BEDSIDE GLUCOSE Collected: 07/27/2018 Status: F Source: QUINTER 5:37 PM [facility] REPOSITORY TYPE CODE TESTS RESULT OUT OF REFERENCE UNITS RANGE LAB L501.080 70-110 mg/dL High BEDSIDE GLU 330 Result Comment: MANAGEMENT OF PATIENT CARE PER NURSING PROTOCOL Performed By: #### L501.080 #### [facility] Point of Care [address] [place] [address] URINALYSIS, COMPLETE Collected: 07/27/2018 Status: F Source: QUINTER 11:30 AM [facility] REPOSITORY Order Comment: How was Urine Obtained? [...] 0-5 SEEN Performed By: #### L400.0001 #### [facility] [address] [place], [address] BEDSIDE GLUCOSE Collected: 07/27/2018 Status: F Source: QUINTER 9:55 AM [facility] REPOSITORY TYPE CODE TESTS RESULT OUT OF REFERENCE UNITS RANGE LAB L501.080 70-110 mg/dL High BEDSIDE GLU 140 Result Comment: MANAGEMENT OF PATIENT CARE PER NURSING PROTOCOL Performed By: #### L501.080 #### [facility] Point of Care [address] [place] [address] CHEST 1 VIEW Observed: 07/27/2018 Status: F Source: QUINTER 9:11 AM [facility] REPOSITORY [facility] Imaging Services [address] [place] [address] Chest 1 View MR#: [id number] Acct: [id number] Name: JIMENEZ WYNN Rep #: [id number] : 1935 F 82 From: Jourdan De La Fuente MD PCP: Clement Bueno MD Status: ADM IN Study: Chest 1 View Date of Exam: 07/27/18 Exam# [id number] Ordering Dr: Aurora Young MD STUDY: X-RAY [...] La Fuente MD at 13:11 EDT Tel [phone], Service support , CC: Clement Bueno MD; Aurora Young MD Fleet Maintenance Manager: Signed CBC W/DIFF, AUTOMATED Collected: 07/27/2018 Status: F Source: GISSEL 8:20 AM [facility] REPOSITORY TYPE CODE TESTS RESULT OUT OF [...] LYMPHS. Performed By: #### L100.0100, L100.4425 #### [facility] [address] [facility] [id number] NRBC PANEL Collected: 07/27/2018 Status: F Source: GISSEL 8:20 AM [facility] REPOSITORY TYPE CODE TESTS RESULT OUT OF RANGE REFERENCE UNITS LAB L100.4450 0-5 % Normal NRBC, FLAGGED 0.1 LAB L100.4455 0-5 10 3/uL Normal NRBC # 0.02 Performed By: #### L100.0100, L100.4425 #### [facility] [address] [place], [place], [address] BASIC METABOLIC Collected: 07/27/2018 Status: F Source: GISSEL PROFILE (BMP) 6:35 AM [facility] REPOSITORY Order Comment: SPECIMEN OBTAINED FROM LINE [...] GAP 9 Performed By: #### L500.2500 #### [facility] [address] [place], [place], [address] BEDSIDE GLUCOSE Collected: 07/27/2018 Status: F Source: GISSEL 6:00 AM [facility] REPOSITORY TYPE CODE TESTS RESULT OUT OF REFERENCE UNITS RANGE LAB L501.080 70-110 mg/dL High BEDSIDE GLU 166 Result Comment: MANAGEMENT OF PATIENT CARE PER NURSING PROTOCOL Performed By: #### L501.080 #### [facility] Point of Care [address] [facility] [place] [address] BEDSIDE GLUCOSE Collected: 07/27/2018 Status: F Source: GISSEL 2:20 AM [facility] REPOSITORY TYPE CODE TESTS RESULT OUT OF REFERENCE UNITS RANGE LAB L501.080 70-110 mg/dL High BEDSIDE GLU 282 Result Comment: MANAGEMENT OF PATIENT CARE PER NURSING PROTOCOL Performed By: #### L501.080 #### [facility] Point of Care [address] [place] [address] BEDSIDE GLUCOSE Collected: 07/26/2018 Status: F Source: GISSEL 9:42 PM [facility] REPOSITORY TYPE CODE TESTS RESULT OUT OF REFERENCE UNITS RANGE LAB L501.080 70-110 mg/dL High BEDSIDE GLU 161 Result Comment: MANAGEMENT OF PATIENT CARE PER NURSING PROTOCOL Performed By: #### L501.080 #### [facility] Point of Care [address] [place] [address] BEDSIDE GLUCOSE Collected: 07/26/2018 Status: F Source: GISSEL 6:21 PM [facility] REPOSITORY TYPE CODE TESTS RESULT OUT OF REFERENCE UNITS RANGE LAB L501.080 70-110 mg/dL High BEDSIDE GLU 215 Result Comment: MANAGEMENT OF PATIENT CARE PER NURSING PROTOCOL Performed By: #### L501.080 #### [facility] Point of Care [address] [place] [address] BEDSIDE GLUCOSE Collected: 07/26/2018 Status: F Source: GISSEL 2:17 PM [facility] REPOSITORY TYPE CODE TESTS RESULT OUT OF REFERENCE UNITS RANGE LAB L501.080 70-110 mg/dL High BEDSIDE GLU 307 Result Comment: MANAGEMENT OF PATIENT CARE PER NURSING PROTOCOL Performed By: #### L501.080 #### [facility] Point of Care [address] [place] [address] BEDSIDE GLUCOSE Collected: 07/26/2018 Status: F Source: GISSEL 10:17 AM [facility] REPOSITORY TYPE CODE TESTS RESULT OUT OF REFERENCE UNITS RANGE LAB L501.080 70-110 mg/dL High BEDSIDE GLU 282 Result Comment: MANAGEMENT OF PATIENT CARE PER NURSING PROTOCOL Performed By: #### L501.080 #### [facility] Point of Care [address] [place] [address] ABDOMEN SINGLE VIEW Observed: 07/26/2018 Status: F Source: GISSEL (PORTABLE) 7:29 AM [facility] REPOSITORY [facility] Imaging Services [address] [place] [address] Abdomen Single View (Portable) MR#: [id number] Acct: [id number] Name: JIMENEZ WYNN Rep #: [id number] : 1935 F 82 From: Jourdan De La Fuente MD PCP: Clement Bueno MD Status: ADM IN Study: Abdomen Single View (Portable) Date of Exam: 07/26/18 Exam# [id number] Ordering Dr: Aurora Young MD STUDY: X-RAY [...] La Fuente MD at 11:10 EDT Tel [phone], Service support , CC: Clement Bueno MD; Aurora Young MD Fleet Maintenance Manager: Signed BEDSIDE GLUCOSE Collected: 07/26/2018 Status: F Source: GISSEL 5:59 AM [facility] REPOSITORY TYPE CODE TESTS RESULT OUT OF REFERENCE UNITS RANGE LAB L501.080 70-110 mg/dL High BEDSIDE GLU 332 Result Comment: MANAGEMENT OF PATIENT CARE PER NURSING PROTOCOL Performed By: #### L501.080 #### [facility] Point of Care [address] [place], [place] [address] BASIC METABOLIC Collected: 07/26/2018 Status: F Source: GISSEL PROFILE (BMP) 4:30 AM [facility] REPOSITORY TYPE CODE TESTS RESULT OUT OF [...] Performed By: #### L500.2500, L501.2300, L501.5200 #### [facility] [address] [place], [place], [address] PHOSPHORUS Collected: 07/26/2018 Status: F Source: GISSEL 4:30 AM [facility] REPOSITORY TYPE CODE TESTS RESULT OUT OF RANGE REFERENCE UNITS LAB L501.2300 2.5-4.9 mg/dL Normal PHOS 3.4 Performed By: #### L500.2500, L501.2300, L501.5200 #### [facility] [address] [place], [address] MAGNESIUM Collected: 07/26/2018 Status: F Source: GISSEL 4:30 AM [facility] REPOSITORY TYPE CODE TESTS RESULT OUT OF RANGE REFERENCE UNITS LAB L501.5200 1.6-2.6 mg/dL Normal MG 2.0 Performed By: #### L500.2500, L501.2300, L501.5200 #### [facility] [address] [place], [address] BEDSIDE GLUCOSE Collected: 07/26/2018 Status: F Source: GISSEL 2:00 AM [facility] REPOSITORY TYPE CODE TESTS RESULT OUT OF REFERENCE UNITS RANGE LAB L501.080 70-110 mg/dL High BEDSIDE GLU 302 Result Comment: MANAGEMENT OF PATIENT CARE PER NURSING PROTOCOL Performed By: #### L501.080 #### [facility] Point of Care [address] [place] [address] BEDSIDE GLUCOSE Collected: 07/25/2018 Status: F Source: GISSEL 9:12 PM [facility] REPOSITORY TYPE CODE TESTS RESULT OUT OF REFERENCE UNITS RANGE LAB L501.080 70-110 mg/dL High BEDSIDE GLU 263 Result Comment: MANAGEMENT OF PATIENT CARE PER NURSING PROTOCOL Performed By: #### L501.080 #### [facility] Point of Care [address] [place] [address] BEDSIDE GLUCOSE Collected: 07/25/2018 Status: F Source: GISSEL 5:55 PM [facility] REPOSITORY TYPE CODE TESTS RESULT OUT OF REFERENCE UNITS RANGE LAB L501.080 70-110 mg/dL High BEDSIDE GLU 314 Result Comment: MANAGEMENT OF PATIENT CARE PER NURSING PROTOCOL Performed By: #### L501.080 #### [facility] Point of Care [address] [place] [address] BASIC METABOLIC Collected: 07/25/2018 Status: F Source: GISSEL PROFILE (BMP) 5:05 PM [facility] REPOSITORY TYPE CODE TESTS RESULT OUT OF [...] GAP 7 Performed By: #### L500.2500 #### [facility] [address] [place], [place], [address] BEDSIDE GLUCOSE Collected: 07/25/2018 Status: F Source: GISSEL 2:59 PM [facility] REPOSITORY TYPE CODE TESTS RESULT OUT OF REFERENCE UNITS RANGE LAB L501.080 70-110 mg/dL High BEDSIDE GLU 379 Result Comment: MANAGEMENT OF PATIENT CARE PER NURSING PROTOCOL Performed By: #### L501.080 #### [facility] Point of Care [address] [facility] [place], [place] [address] BEDSIDE GLUCOSE Collected: 07/25/2018 Status: F Source: GISSEL 9:44 AM [facility] REPOSITORY TYPE CODE TESTS RESULT OUT OF REFERENCE UNITS RANGE LAB L501.080 70-110 mg/dL High BEDSIDE GLU 320 Result Comment: MANAGEMENT OF PATIENT CARE PER NURSING PROTOCOL Performed By: #### L501.080 #### [facility] Point of Care [address] [place] [address] BEDSIDE GLUCOSE Collected: 07/25/2018 Status: F Source: GISSEL 7:58 AM [facility] REPOSITORY TYPE CODE TESTS RESULT OUT OF REFERENCE UNITS RANGE LAB L501.080 70-110 mg/dL High BEDSIDE GLU 329 Result Comment: MANAGEMENT OF PATIENT CARE PER NURSING PROTOCOL Performed By: #### L501.080 #### [facility] Point of Care [address] [place] [address] BEDSIDE GLUCOSE Collected: 07/25/2018 Status: F Source: GISSEL 6:11 AM [facility] REPOSITORY TYPE CODE TESTS RESULT OUT OF REFERENCE UNITS RANGE LAB L501.080 70-110 mg/dL High BEDSIDE GLU 336 Result Comment: MANAGEMENT OF PATIENT CARE PER NURSING PROTOCOL Performed By: #### L501.080 #### [facility] Point of Care [address] [place] [address] BASIC METABOLIC Collected: 07/25/2018 Status: F Source: GISSEL PROFILE (BMP) 4:23 AM [facility] REPOSITORY TYPE CODE TESTS RESULT OUT OF [...] 05:05:03 07/25/2018 by: DOUGLAS BRADFORD to [facility] LAB L501.5900 98-107 mmol/L High CL 108 LAB L501.6100 21.0-32.0 mmol/L Normal CO2 28.0 LAB L501.6200 5-15 Normal 9 GAP Performed By: #### L500.2500 #### [facility] [address] [place], [address] CBC W/DIFF, AUTOMATED Collected: 07/25/2018 Status: F Source: QUINTER 4:23 AM [facility] REPOSITORY TYPE CODE TESTS RESULT OUT OF [...] Lymph 0.38 Performed By: #### L100.0100 #### [facility] [address] [place], [address] PHOSPHORUS Collected: 07/25/2018 Status: F Source: QUINTER 4:23 AM [facility] REPOSITORY TYPE CODE TESTS RESULT OUT OF RANGE REFERENCE UNITS LAB L501.2300 2.5-4.9 mg/dL Normal PHOS 2.6 Performed By: #### L501.2300, L501.5200 #### [facility] [address] [place], [address] MAGNESIUM Collected: 07/25/2018 Status: F Source: QUINTER 4:23 AM [facility] REPOSITORY TYPE CODE TESTS RESULT OUT OF RANGE REFERENCE UNITS LAB L501.5200 1.6-2.6 mg/dL Normal MG 1.6 Performed By: #### L501.2300, L501.5200 #### [facility] [address] [place], [address] GLUCOSE Collected: 07/25/2018 Status: F Source: QUINTER 1:27 AM [facility] REPOSITORY TYPE CODE TESTS RESULT OUT OF RANGE REFERENCE UNITS LAB L501.0100 74-106 mg/dL High alert GLU 476 Result Comment: Critical Result(s) Called at: 02:28:04 07/25/2018 by: DOUGLAS Noriega Glucose result greater than or equal to 200 mg/dL suggests DIABETES MELLITUS per A.D.A. criteria. Please note revised GLUCOSE reference range effective 2017. Performed By: #### L501.0100 #### [facility] [address] [place], [address] BEDSIDE GLUCOSE Collected: 07/25/2018 Status: F Source: QUINTER 1:19 AM [facility] REPOSITORY TYPE CODE TESTS RESULT OUT OF REFERENCE UNITS RANGE LAB L501.080 70-110 mg/dL High alert BEDSIDE GLU 481 Result Comment: MANAGEMENT OF PATIENT CARE PER NURSING PROTOCOL Performed By: #### L501.080 #### [facility] Point of Care [address] [place] [address] GLUCOSE Collected: 07/24/2018 Status: F Source: GISSEL 9:43 PM [facility] REPOSITORY TYPE CODE TESTS RESULT OUT OF RANGE REFERENCE UNITS LAB L501.0100 74-106 mg/dL High alert GLU 527 Result Comment: Critical Result(s) Called Gelacio LEON at: 22:25:21 07/24/2018 by: RITESH FOOTE Glucose result greater than or equal to 200 mg/dL suggests DIABETES MELLITUS per A.D.A. criteria. Please note revised GLUCOSE reference range effective 2017. Performed By: #### L501.0100 #### [facility] [address] [place], [address] BEDSIDE GLUCOSE Collected: 07/24/2018 Status: F Source: QUINTER 9:36 PM [facility] REPOSITORY TYPE CODE TESTS RESULT OUT OF REFERENCE UNITS RANGE LAB L501.080 70-110 mg/dL High alert BEDSIDE GLU 495 Result Comment: MANAGEMENT OF PATIENT CARE PER NURSING PROTOCOL Performed By: #### L501.080 #### [facility] Point of Care [address] [place] [address] BEDSIDE GLUCOSE Collected: 07/24/2018 Status: F Source: GISSEL 6:05 PM [facility] REPOSITORY TYPE CODE TESTS RESULT OUT OF REFERENCE UNITS RANGE LAB L501.080 70-110 mg/dL High alert BEDSIDE GLU > 500 Result Comment: MANAGEMENT OF PATIENT CARE PER NURSING PROTOCOL Performed By: #### L501.080 #### [facility] Point of Care [address] [place] [address] BEDSIDE GLUCOSE Collected: 07/24/2018 Status: F Source: GISSEL 4:44 PM [facility] REPOSITORY TYPE CODE TESTS RESULT OUT OF REFERENCE UNITS RANGE LAB L501.080 70-110 mg/dL High alert BEDSIDE GLU > 500 Result Comment: MANAGEMENT OF PATIENT CARE PER NURSING PROTOCOL Performed By: #### L501.080 #### [facility] Point of Care [address] [place] [address] BEDSIDE GLUCOSE Collected: 07/24/2018 Status: F Source: GISSEL 11:50 AM [facility] REPOSITORY TYPE CODE TESTS RESULT OUT OF REFERENCE UNITS RANGE LAB L501.080 70-110 mg/dL High alert BEDSIDE GLU 454 Result Comment: MANAGEMENT OF PATIENT CARE PER NURSING PROTOCOL Performed By: #### L501.080 #### [facility] Point of Care [address] [place] [address] BEDSIDE GLUCOSE Collected: 07/24/2018 Status: F Source: GISSEL 10:29 AM [facility] REPOSITORY TYPE CODE TESTS RESULT OUT OF REFERENCE UNITS RANGE LAB L501.080 70-110 mg/dL High BEDSIDE GLU 398 Result Comment: MANAGEMENT OF PATIENT CARE PER NURSING PROTOCOL Performed By: #### L501.080 #### [facility] Point of Care [address] [place] [address] BEDSIDE GLUCOSE Collected: 07/24/2018 Status: F Source: GISSEL 5:16 AM [facility] REPOSITORY TYPE CODE TESTS RESULT OUT OF REFERENCE UNITS RANGE LAB L501.080 70-110 mg/dL High BEDSIDE GLU 438 Result Comment: Dr Orders Followed Insulin Given MANAGEMENT OF PATIENT CARE PER NURSING PROTOCOL Performed By: #### L501.080 #### [facility] Point of Care [address] [place] [address] CBC W/DIFF, AUTOMATED Collected: 07/24/2018 Status: F Source: GISSEL 4:00 AM [facility] REPOSITORY TYPE CODE TESTS RESULT OUT OF [...] LYMPHOPENIA NOTED Performed By: #### L100.0100 #### [facility] [address] [place], [place], [address] PHOSPHORUS Collected: 07/24/2018 Status: F Source: QUINTER 4:00 AM [facility] REPOSITORY TYPE CODE TESTS RESULT OUT OF RANGE REFERENCE UNITS LAB L501.2300 2.5-4.9 mg/dL Normal PHOS 3.1 Performed By: #### L501.2300, L501.5200 #### [facility] [address] [facility] [facility] [place], [place], [address] MAGNESIUM Collected: 07/24/2018 Status: F Source: QUINTER 4:00 AM [facility] REPOSITORY TYPE CODE TESTS RESULT OUT OF RANGE REFERENCE UNITS LAB L501.5200 1.6-2.6 mg/dL Normal MG 1.8 Performed By: #### L501.2300, L501.5200 #### [facility] [address] [place], [address] BASIC METABOLIC Collected: 07/24/2018 Status: F Source: GISSEL PROFILE (BMP) 4:00 AM [facility] REPOSITORY TYPE CODE TESTS RESULT OUT OF [...] GAP 11 Performed By: #### L500.2500 #### [facility] [address] [place], [address] BEDSIDE GLUCOSE Collected: 07/23/2018 Status: F Source: GISSEL 11:46 PM [facility] REPOSITORY TYPE CODE TESTS RESULT OUT OF REFERENCE UNITS RANGE LAB L501.080 70-110 mg/dL High BEDSIDE GLU 435 Result Comment: MANAGEMENT OF PATIENT CARE PER NURSING PROTOCOL Performed By: #### L501.080 #### [facility] Point of Care [address] [place] [address] BEDSIDE GLUCOSE Collected: 07/23/2018 Status: F Source: GISSEL 11:45 PM [facility] REPOSITORY TYPE CODE TESTS RESULT OUT OF REFERENCE UNITS RANGE LAB L501.080 70-110 mg/dL High BEDSIDE GLU 440 Result Comment: MANAGEMENT OF PATIENT CARE PER NURSING PROTOCOL Performed By: #### L501.080 #### [facility] Point of Care [address] [place] [address] BEDSIDE GLUCOSE Collected: 07/23/2018 Status: F Source: GISSEL 4:18 PM [facility] REPOSITORY TYPE CODE TESTS RESULT OUT OF REFERENCE UNITS RANGE LAB L501.080 70-110 mg/dL High BEDSIDE GLU 180 Result Comment: MANAGEMENT OF PATIENT CARE PER NURSING PROTOCOL Performed By: #### L501.080 #### [facility] Point of Care [address] [place] [address] Observed: 07/23/2018 Status: F Source: GISSEL CULTURE, BLOOD (WB) 3:20 PM [facility] REPOSITORY Has pt arrived? Y BC No growth in 5 days. Performed By: #### M200.1000 #### [facility] [address] [place], [address] BEDSIDE GLUCOSE Collected: 07/23/2018 Status: F Source: GISSEL 11:57 AM [facility] REPOSITORY TYPE CODE TESTS RESULT OUT OF REFERENCE UNITS RANGE LAB L501.080 70-110 mg/dL High BEDSIDE GLU 162 Result Comment: MANAGEMENT OF PATIENT CARE PER NURSING PROTOCOL Performed By: #### L501.080 #### [facility] Point of Care [address] [place] [address] BLOOD GASES BY CPS Collected: 07/23/2018 Status: F Source: GISSEL 6:21 AM [facility] REPOSITORY TYPE CODE TESTS RESULT OUT OF [...] ISTAT 93 Performed By: #### L9000.0800 #### [facility] Point of Care [address] [place] [address] BEDSIDE GLUCOSE Collected: 07/23/2018 Status: F Source: QUINTER 5:33 AM [facility] REPOSITORY TYPE CODE TESTS RESULT OUT OF REFERENCE UNITS RANGE LAB L501.080 70-110 mg/dL High BEDSIDE GLU 130 Result Comment: MANAGEMENT OF PATIENT CARE PER NURSING PROTOCOL Performed By: #### L501.080 #### [facility] Point of Care [address] [place] [address] CBC W/DIFF, AUTOMATED Collected: 07/23/2018 Status: F Source: QUINTER 4:00 AM [facility] REPOSITORY TYPE CODE TESTS RESULT OUT OF [...] LYMPHOPENIA NOTED Performed By: #### L100.0100 #### [facility] [address] [place], [address] BASIC METABOLIC Collected: 07/23/2018 Status: F Source: QUINTER PROFILE ([facility]) 4:00 AM [facility] REPOSITORY TYPE CODE TESTS RESULT OUT OF [...] Performed By: #### L500.2500, L501.2300, L501.5200 #### [facility] [address] [place], [address] PHOSPHORUS Collected: 07/23/2018 Status: F Source: GISSEL 4:00 AM [facility] REPOSITORY TYPE CODE TESTS RESULT OUT OF RANGE REFERENCE UNITS LAB L501.2300 2.5-4.9 mg/dL Normal PHOS 2.8 Performed By: #### L500.2500, L501.2300, L501.5200 #### [facility] [address] [place], [place], [address] MAGNESIUM Collected: 07/23/2018 Status: F Source: GISSEL 4:00 AM [facility] REPOSITORY TYPE CODE TESTS RESULT OUT OF RANGE REFERENCE UNITS LAB L501.5200 1.6-2.6 mg/dL Normal MG 2.1 Performed By: #### L500.2500, L501.2300, L501.5200 #### [facility] [address] [place], [address] BEDSIDE GLUCOSE Collected: 07/22/2018 Status: F Source: GISSEL 11:18 PM [facility] REPOSITORY TYPE CODE TESTS RESULT OUT OF REFERENCE UNITS RANGE LAB L501.080 70-110 mg/dL High BEDSIDE GLU 121 Result Comment: MANAGEMENT OF PATIENT CARE PER NURSING PROTOCOL Performed By: #### L501.080 #### [facility] Point of Care [address] [place] [address] CONSULTATION Observed: 07/22/2018 Status: F Source: QUINTER 9:19 PM [facility] REPOSITORY [facility] Medical Records Department [address] [place] [address] Consultation 07/22/182053 MR#: [id number] Acct: [id number] Name: JIMENEZ WYNN Rep #: [id number] : 1935 82 From: Charly Ross MD PCP: Clement Bueno MD Status: ADM IN Y Location: ICU ICU- Problem List (1) SVT (supraventricular tachycardia) Status: Acute (2) Takotsubo cardiomyopathy Status: Chronic (3) Atherosclerotic heart disease of [place] coronary artery without angina pectoris Status: Chronic Qualifiers: [facility] [place] vs. transplanted heart: [place] heart Comment: Mild (4) Hyperlipidemia Status: Chronic Qualifiers: Hyperlipidemia type: unspecified Qualified Code(s): E78.5 - Hyperlipidemia, unspecified (5) Type 2 diabetes mellitus Status: Chronic Qualifiers: Diabetes mellitus lobsterman insulin use: without detention use Diabetes mellitus complication status: with unspecified [...] (valve) insufficiency (Chronic) 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 Hypothyroidism (Chronic) COPD (chronic obstructive pulmonary disease) (Chronic) Hyperlipidemia (Chronic) Type 2 diabetes mellitus (Chronic) Surgical History: hysterectomy, total hip arthroplasty, - - Fractured femur, bilateral knee surgeries and bilateral hip surgeries Psychiatric History: No pertinent psych hx 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 - *Family History Maternal Family History: Family History (Last Updated 05/26/18 @ 10:48 by Sofia Allen) Mother Diabetes Brother Atrial fibrillation Brother Diabetes Sister Diabetes History Items: Diabetes Paternal Family History: Family History (Last Updated 05/26/18 @ 10:48 by Sofia Allen) Mother Diabetes Brother Atrial fibrillation Brother Diabetes Sister Diabetes History Items: Diabetes, Heart Disease Lives: Jail Smoking Status: Never smoker Tobacco Use: Non-smoker [...] 90.2 H, Lymph % (Auto) 6.4 L, Jewell % (Auto) 2.3, Eos % (Auto) 0.4, [...] TR; mild focal aortic valve calcification; trivial SD; estimated RV systolic pressure of 37 mmHg; decreased diastolic compliance Stress Test: 05/10/2018: Pharmacologic stress nuclear imaging study: Considered negative with a gated LVEF of 64% Cardiac Cath: 09/13/2012: [facility]: Left ventricle considered to demonstrate [...] Dr. Garrido. This note was generated with [email or web address] software. It may contain incorrect words, spelling, and punctuation that were not noted in checking the note before signing. 07/22/182118 <Electronically signed by Charly Ross MD> Date Charly Ross MD Cosigner Signature (if applicable): Date CC: Clement Bueno MD; Juan Jose Lemon MD; Clement Bueno MD; Charly Ross MD; Aurora Young MD Signed BEDSIDE GLUCOSE Collected: 07/22/2018 Status: F Source: GISSEL 6:10 PM [facility] REPOSITORY TYPE CODE TESTS RESULT OUT OF REFERENCE UNITS RANGE LAB L501.080 70-110 mg/dL High BEDSIDE GLU 137 Result Comment: MANAGEMENT OF PATIENT CARE PER NURSING PROTOCOL Performed By: #### L501.080 #### [facility] Point of Care [address] [place] [address] BEDSIDE GLUCOSE Collected: 07/22/2018 Status: F Source: GISSEL 12:04 PM [facility] REPOSITORY TYPE CODE TESTS RESULT OUT OF REFERENCE UNITS RANGE LAB L501.080 70-110 mg/dL High BEDSIDE GLU 148 Result Comment: MANAGEMENT OF PATIENT CARE PER NURSING PROTOCOL Performed By: #### L501.080 #### [facility] Point of Care [address] [place] [address] BEDSIDE GLUCOSE Collected: 07/22/2018 Status: F Source: GISSEL 6:30 AM [facility] REPOSITORY TYPE CODE TESTS RESULT OUT OF REFERENCE UNITS RANGE LAB L501.080 70-110 mg/dL High BEDSIDE GLU 160 Result Comment: MANAGEMENT OF PATIENT CARE PER NURSING PROTOCOL Performed By: #### L501.080 #### [facility] Point of Care [address] [place] [address] BASIC METABOLIC Collected: 07/22/2018 Status: F Source: GISSEL PROFILE (BMP) 4:15 AM [facility] REPOSITORY TYPE CODE TESTS RESULT OUT OF [...] GAP 9 Performed By: #### L500.2500 #### [facility] [address] [place], [address] PHOSPHORUS Collected: 07/22/2018 Status: F Source: QUINTER 4:15 AM [facility] REPOSITORY TYPE CODE TESTS RESULT OUT OF RANGE REFERENCE UNITS LAB L501.2300 2.5-4.9 mg/dL Normal PHOS 3.1 Performed By: #### L501.2300, L501.5200 #### [facility] [address] [place], [place], [address] MAGNESIUM Collected: 07/22/2018 Status: F Source: QUINTER 4:15 AM [facility] REPOSITORY TYPE CODE TESTS RESULT OUT OF RANGE REFERENCE UNITS LAB L501.5200 1.6-2.6 mg/dL High MG 2.7 Performed By: #### L501.2300, L501.5200 #### [facility] [address] [facility] [place], [place], [address] CBC W/DIFF, AUTOMATED Collected: 07/22/2018 Status: F Source: QUINTER 4:15 AM [facility] REPOSITORY TYPE CODE TESTS RESULT OUT OF [...] Lymph 0.45 Performed By: #### L100.0100 #### [facility] [address] [facility] [place], [place], [address] TROPONIN-I Collected: 07/22/2018 Status: F Source: QUINTER 4:15 AM [facility] REPOSITORY Order Comment: 'TROP' Serial specimen #1, #2 or #3: 1 TYPE CODE TESTS RESULT OUT OF RANGE REFERENCE UNITS LAB L501.4010 <0.045 ng/mL Normal < 0.015 TROPONIN-I Result Comment: TROPONIN-I EXPECTED VALUES <0.045 Negative 0.045 - 0.590 Consistent with Cardiac Damage > OR = 0.600 Critical Value Not every elevated troponin is indicative of TX. These values should be used with clinical judgement in examining the patient's clinical picture for diagnosis. To establish a diagnosis of TX versus myocardial injury, there must be a demonstrated rise and/or fall in the troponin values, in addition to ischemic symptoms, EKG changes, new regional wall motion abnormality, and/or angiographical evidence. PLEASE NOTE: REFERENCE RANGES EDITED 18 Performed By: #### L501.4010 #### [facility] [address] [facility] [place], [place], [address] BLOOD GASES BY [facility] Collected: 07/22/2018 Status: F Source: QUINTER 3:56 AM [facility] REPOSITORY TYPE CODE TESTS RESULT OUT OF [...] ISTAT 90 Performed By: #### L9000.0800 #### [facility] Point of Care [address] [place] [address] BEDSIDE GLUCOSE Collected: 07/21/2018 Status: F Source: QUINTER 11:48 PM [facility] REPOSITORY TYPE CODE TESTS RESULT OUT OF REFERENCE UNITS RANGE LAB L501.080 70-110 mg/dL High BEDSIDE GLU 144 Result Comment: MANAGEMENT OF PATIENT CARE PER NURSING PROTOCOL Performed By: #### L501.080 #### [facility] Point of Care [address] [facility] [place] [address] BASIC METABOLIC Collected: 07/21/2018 Status: F Source: QUINTER PROFILE (BMP) 7:49 PM [facility] REPOSITORY TYPE CODE TESTS RESULT OUT OF [...] Performed By: #### L500.2500, L501.2300, L501.5200 #### [facility] [address] [place], [address] PHOSPHORUS Collected: 07/21/2018 Status: F Source: QUINTER 7:49 PM [facility] REPOSITORY TYPE CODE TESTS RESULT OUT OF RANGE REFERENCE UNITS LAB L501.2300 2.5-4.9 mg/dL Normal PHOS 3.0 Performed By: #### L500.2500, L501.2300, L501.5200 #### [facility] [address] [place], [address] MAGNESIUM Collected: 07/21/2018 Status: F Source: QUINTER 7:49 PM [facility] REPOSITORY TYPE CODE TESTS RESULT OUT OF RANGE REFERENCE UNITS LAB L501.5200 1.6-2.6 mg/dL Normal MG 2.6 Performed By: #### L500.2500, L501.2300, L501.5200 #### [facility] [address] [place], [address] BEDSIDE GLUCOSE Collected: 07/21/2018 Status: F Source: QUINTER 5:40 PM [facility] REPOSITORY TYPE CODE TESTS RESULT OUT OF REFERENCE UNITS RANGE LAB L501.080 70-110 mg/dL High BEDSIDE GLU 139 Result Comment: MANAGEMENT OF PATIENT CARE PER NURSING PROTOCOL Performed By: #### L501.080 #### [facility] Point of Care [address] [place] [address] 12 LEAD ELECTROCARDIOGRAM Observed: 07/21/2018 Status: F Source: GISSEL 2:12 PM [facility] REPOSITORY [facility] Cardiovascular Services [address] [place] [address] 12 Lead EKG 07/20/18 0804 MR#: [id number] Acct: [id number] Name: JIMENEZ WYNN Rep #: [id number] : 1935 82 From: Charly Ross MD [...] Abnormal ECG Confirmed by CODY MERCER, CHARLY ([id number]), assistant film editor SADIQ BUENO ([id number]) on 07/21/2018 2:11:47 PM Referred By: MONA Confirmed By:CHARLY ROSS MD 07/21/18 1411 Date Charly Ross MD CC: Paula Garrido MD; Clement Bueno MD; Matias Cortes MD Signed BEDSIDE GLUCOSE Collected: 07/21/2018 Status: F Source: QUINTER 11:58 AM [facility] REPOSITORY TYPE CODE TESTS RESULT OUT OF REFERENCE UNITS RANGE LAB L501.080 70-110 mg/dL High BEDSIDE GLU 143 Result Comment: MANAGEMENT OF PATIENT CARE PER NURSING PROTOCOL Performed By: #### L501.080 #### [facility] Point of Care [address] [place] [address] OPERATIVE REPORT Observed: 07/21/2018 Status: F Source: GISSEL 9:55 AM [facility] REPOSITORY [facility] Medical Records Department [address] [place] [address] Operative Report 07/20/18 1343 MR#: [id number] Acct: [id number] Name: JIMENEZ WYNN Rep #: [id number] : 1935 82 From: Aurora Young MD PCP: Clement Bueno MD Status: ADM IN Y Location: ICU ICU07-1 Report of Operation Date of Procedure: 07/27/18 Pre-Operative Diagnosis: Pneumoperitoneum Post-Operative Diagnosis: Perforated descending colon near splenic flexure Surgery/Procedure Performed:: Exploratory laparotomy, mobilization of the splenic flexure, left colon resection, end colostomy waterproof bag sewer: Franklyn Dubois waterproof bag sewer: Deya Carrillo Type of Anesthesia:: General/Supplemental Anesthesiologist: [...] the cut on the Bovie form a [place] and then using [employer]'s to go down to the fascia which [...] 07/21/2018 Status: F Source: GISSEL 6:55 AM [facility] REPOSITORY Order Comment: Comments: please check after boluses given Yes/No query for Sepsis Lactate Rule Y TYPE CODE TESTS RESULT OUT OF RANGE REFERENCE UNITS LAB L503.6005 0.4-2.0 mmol/L Normal LACTIC ACID 1.9 Performed By: #### L503.6005 #### [facility] [address] [place], [place], [address] BEDSIDE GLUCOSE Collected: 07/21/2018 Status: F Source: GISSEL 5:36 AM [facility] REPOSITORY TYPE CODE TESTS RESULT OUT OF REFERENCE UNITS RANGE LAB L501.080 70-110 mg/dL High BEDSIDE GLU 169 Result Comment: MANAGEMENT OF PATIENT CARE PER NURSING PROTOCOL Performed By: #### L501.080 #### [facility] Point of Care [address] [place] [address] BASIC METABOLIC Collected: 07/21/2018 Status: F Source: GISSEL PROFILE (BMP) 5:28 AM [facility] REPOSITORY TYPE CODE TESTS RESULT OUT OF [...] Performed By: #### L500.2500, L501.2300, L501.5200 #### [facility] [address] [place], [address] PHOSPHORUS Collected: 07/21/2018 Status: F Source: QUINTER 5:28 AM [facility] REPOSITORY TYPE CODE TESTS RESULT OUT OF RANGE REFERENCE UNITS LAB L501.2300 2.5-4.9 mg/dL Normal PHOS 2.8 Performed By: #### L500.2500, L501.2300, L501.5200 #### [facility] [address] [place], [address] MAGNESIUM Collected: 07/21/2018 Status: F Source: QUINTER 5:28 AM [facility] REPOSITORY TYPE CODE TESTS RESULT OUT OF RANGE REFERENCE UNITS LAB L501.5200 1.6-2.6 mg/dL Low MG 1.2 Performed By: #### L500.2500, L501.2300, L501.5200 #### [facility] [address] [facility] [place], [address] CBC W/DIFF, AUTOMATED Collected: 07/21/2018 Status: C Source: QUINTER 5:28 AM [facility] REPOSITORY TYPE CODE TESTS RESULT OUT OF [...] 07/21/18 1352 PATH REV previously reported as: March sylvia Performed By: #### L100.0100 #### [facility] [address] [place] [address]. [place], [place], [address] LIVER PROFILE Collected: 07/21/2018 Status: F Source: QUINTER 5:25 AM [facility] REPOSITORY TYPE CODE TESTS RESULT OUT OF [...] BILI 0.17 Performed By: #### L500.3400 #### [facility] [address] [place], [address] CONSULTATION Observed: 07/21/2018 Status: F Source: QUINTER 5:20 AM [facility] REPOSITORY [facility] Medical Records Department [address] [place] [address] Consultation 07/20/18 1504 MR#: [id number] Acct: [id number] Name: JIMENEZ WYNN Rep #: [id number] : 1935 82 From: Juan Jose Lemon MD PCP: Clement Bueno MD Status: ADM IN Y [facility] Problem List (1) Large bowel perforation Status: [...] listed below, who presented to [facility] on 07/20/2018 secondary to confusion and not feeling well from a [facility]. Patient reportedly had reported feeling worse over [...] (valve) insufficiency (Chronic) 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 Hypothyroidism (Chronic) COPD (chronic obstructive pulmonary disease) (Chronic) Hyperlipidemia (Chronic) Type 2 diabetes mellitus (Chronic) Medical History: Medical History (Last Reviewed 03/01/18 @ 13:10 by Victoria Fu) Takotsubo cardiomyopathy (Chronic) I51.81 Nonrheumatic tricuspid (valve) insufficiency (Chronic) I36.1 Atherosclerotic heart disease of [place] coronary artery without angina pectoris (Chronic) I25.10 [...] - Ostomy is clean, dry and intact. [place] mucosa noted. Extremities: No clubbing, No cyanosis, [...] La Fuente MD at 8:36 EDT Tel [phone], Service support , Chest X-Ray 07/20/18 08:30 IMPRESSION: Free intraperitoneal air. The referring physician was notified. Electronically Signed: Jourdan De La Fuente MD at 9:15 EDT Tel [phone], Service support , Abdomen/Pelvis CT 07/20/18 08:55 IMPRESSION: Free intraperitoneal air as well as retroperitoneal air. Sigmoid diverticulosis and possible perforation of the sigmoid colon Bibasilar atelectasis. Stable left renal cyst. Electronically Signed: Jourdan De La Fuente MD at 9:38 EDT Tel [phone], Service support , Chest X-Ray 07/20/18 10:26 IMPRESSION: The tip of the right internal jugular venous catheter is in the right atrium. Increased markings at the lung bases suggestive bibasilar atelectasis and/or scarring. Electronically Signed: Jourdan De La Fuente MD at 12:15 EDT Tel [phone], Service support , Chest X-Ray 07/20/18 14:23 IMPRESSION: All the side port tubes are in good position. Stable increased markings at the lung bases suggesting bibasilar atelectasis. Electronically Signed: Jourdan De La Fuente MD at 14:55 EDT Tel [phone], Service support , Assessment/Plan Active and Suspected Problems (Last Reviewed 03/01/18 @ 13:10 by Victoira Fu) Large bowel perforation (Acute) Septic shock [...] a DNR [facility] arrest at the [facility] prior to acute situation. Area of the [...] PM to 3:30 PM) Code Visit 9xxxx: [id number] Critical care first hour 07/21/18 0520 <Electronically signed by Juan Jose Lemon MD> Date Juan Jose Lemon MD Cosigner Signature (if applicable): Date CC: Juan Jose Lemon MD; Clement Bueno MD; Aurora Young MD Signed BEDSIDE GLUCOSE Collected: 07/21/2018 Status: F Source: GISSEL 12:34 AM [facility] REPOSITORY TYPE CODE TESTS RESULT OUT OF REFERENCE UNITS RANGE LAB L501.080 70-110 mg/dL High BEDSIDE GLU 196 Result Comment: MANAGEMENT OF PATIENT CARE PER NURSING PROTOCOL Performed By: #### L501.080 #### [facility] Point of Care [address] [place] [address] LACTIC ACID Collected: 07/20/2018 Status: F Source: QUINTER 10:30 PM [facility] REPOSITORY Order Comment: Yes/No query for Sepsis Lactate Rule Y TYPE CODE TESTS RESULT OUT OF REFERENCE UNITS RANGE LAB L503.6005 0.4-2.0 mmol/L High LACTIC ACID 2.6 Result Comment: SPECIMEN NOT ON ICE Critical Result(s) Called at: 23:18:04 07/20/2018 by: Nataly AUGUSTINE Performed By: #### L503.6005 #### [facility] [address] [place], [address] BEDSIDE GLUCOSE Collected: 07/20/2018 Status: F Source: QUINTER 5:44 PM [facility] REPOSITORY TYPE CODE TESTS RESULT OUT OF REFERENCE UNITS RANGE LAB L501.080 70-110 mg/dL High BEDSIDE GLU 232 Result Comment: MANAGEMENT OF PATIENT CARE PER NURSING PROTOCOL Performed By: #### L501.080 #### [facility] Point of Care [address] [place] [address] HISTORY AND PHYSICAL Observed: 07/20/2018 Status: F Source: QUINTER EXAM 5:26 PM [facility] REPOSITORY [facility] Medical Records Department [address] [place] [address] History and Physical 07/20/18 1506 MR#: [id number] Acct: [id number] Name: JIMENEZ WYNN Rep #: [id number] : 1935 82 From: Paula Garrido MD PCP: Clement Bueno MD Status: ADM IN Y Location: ICU ICU07-1 Problem List (1) Large bowel perforation Status: Acute (2) Septic shock Status: Acute (3) DEMETRA (acute kidney injury) Status: Acute (4) Takotsubo cardiomyopathy Status: Chronic (5) Nonrheumatic tricuspid (valve) insufficiency Status: Chronic (6) Atherosclerotic heart disease of [place] coronary artery without angina pectoris Status: Chronic Qualifiers: [facility] [place] vs. transplanted heart: [place] heart Comment: Mild (7) Hypothyroidism Status: Chronic Qualifiers: Hypothyroidism type: unspecified (8) COPD (chronic obstructive pulmonary disease) Status: Chronic Qualifiers: Emphysema type: unspecified (9) Hyperlipidemia Status: Chronic Qualifiers: Hyperlipidemia type: unspecified Qualified Code(s): E78.5 - Hyperlipidemia, unspecified (10) Type 2 diabetes mellitus Status: Chronic Qualifiers: Diabetes mellitus lobsterman insulin use: without lobsterman use Diabetes mellitus complication status: with unspecified complications Qualified Code(s): E11.8 - Type 2 diabetes mellitus with unspecified complications History of Present Illness Date of Admission: 07/20/18 Chief Complaint: Not feeling well, confusion The patient is a 82 year old F with multiple comorbidities significant for Takusubo cardiomyopathy with SVTs, hypertension, type II DM, resident in a [facility] who was brought to the emergency room [...] (valve) insufficiency (Chronic) 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 Hypothyroidism (Chronic) COPD (chronic obstructive pulmonary disease) (Chronic) Hyperlipidemia (Chronic) Type 2 diabetes mellitus (Chronic) Medical History: Medical History (Last Reviewed 03/01/18 @ 13:10 by Victoria Fu) Takotsubo cardiomyopathy (Chronic) I51.81 Nonrheumatic tricuspid (valve) insufficiency (Chronic) I36.1 Atherosclerotic heart disease of [place] coronary artery without angina pectoris (Chronic) I25.10 [...] 05/23/16 Meloxicam [Mobic] 15 mg PO QODAY 16 Surgical History: Surgical History (Last Updated 05/26/18 [...] surgeries Psychiatric History: No pertinent psych hx 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 1. Septic shock secondary to acute peritonitis secondary to perforated descending colon, status post surgery, on IV Zosyn, vancomycin added by rag inspector We will continue to monitor patient's vitals closely 2. Postop day #0 status post exploratory laparotomy, colon resection and end colostomy, on fentanyl drip 3. Acute respiratory failure, patient electively intubated for surgery, kept intubated on account of current septic shock, rag inspector consulted. 4. Type II DM, on insulin, [...] SC Code Visit Inpatient E AND M: 53768 Subs Hosp L3 07/20/18 5053 <Electronically signed by Paula Garrido MD> Date Paula Garrido MD Cosigner Signature: Date (if applicable) CC: Paula Garrido MD; Clement Bueno MD Signed BLOOD GASES BY CPS Collected: 07/20/2018 Status: F Source: GISSEL 3:35 PM [facility] REPOSITORY TYPE CODE TESTS RESULT OUT OF [...] 5 LAB L9001.1104 Normal Results To ICU MD LAB L9001.1105 Normal Time Given 1540 LAB [...] ISTAT 96 Performed By: #### L9000.0800 #### [facility] Point of Care [address] [place] [address] CONSULTATION Observed: 07/20/2018 Status: F Source: GISSEL 3:34 PM [facility] REPOSITORY [facility] Medical Records Department [address] [place] [address] Consultation 07/20/18 0916 MR#: [id number] Acct: [id number] Name: JIMENEZ WYNN Rep #: [id number] : 1935 82 From: Aurora Young MD [...] (valve) insufficiency (Chronic) 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 Hypothyroidism (Chronic) COPD (chronic obstructive pulmonary disease) (Chronic) Hyperlipidemia (Chronic) Type 2 diabetes mellitus (Chronic) Medical History: Medical History (Last Reviewed 03/01/18 @ 13:10 by Victoria Fu) Takotsubo cardiomyopathy (Chronic) I51.81 Nonrheumatic tricuspid (valve) insufficiency (Chronic) I36.1 Atherosclerotic heart disease of [place] coronary artery without angina pectoris (Chronic) I25.10 [...] F 82 20 H 103/58 L 98 09/18/18 08:50 07/20/18 09:12 07/20/18 09:12 07/20/18 09:12 [...] be intubated after surgery, and anesthesia. Aurora Robotham, M.D. Pager: [phone] [facility] [address] [place] [address], [facility], [address] [place] [address] Office: [phone] 07/20/18 1537 <Electronically signed by Aurora Young MD> Date Aurora Young MD Cosigner Signature (if applicable): Date CC: Juan Jose Lemon MD; Clement Bueno MD Signed CBC-COMPLETE BLOOD CNT Collected: 07/20/2018 Status: F Source: GISSEL NO DIFF 2:50 PM [facility] REPOSITORY TYPE CODE TESTS RESULT OUT OF [...] MPV 8.8 Performed By: #### L100.0500 #### [facility] [address] [place] [address]. [place], [address] BASIC METABOLIC Collected: 07/20/2018 Status: F Source: GISSEL PROFILE (BMP) 2:50 PM [facility] REPOSITORY TYPE CODE TESTS RESULT OUT OF [...] GAP 11 Performed By: #### L500.2500 #### [facility] [address] [facility]. [place], [place], [address] LACTIC ACID Collected: 07/20/2018 Status: F Source: GISSEL 2:50 PM [facility] REPOSITORY TYPE CODE TESTS RESULT OUT OF REFERENCE UNITS RANGE LAB L503.6005 0.4-2.0 mmol/L High LACTIC ACID 3.3 Result Comment: Critical Result(s) Called at: 15:32:16 07/20/2018 by: Nataly BOWEN Performed By: #### L503.6005 #### [facility] [address] [facility] [place], [address] CPK TOTAL, CREATINE Collected: 07/20/2018 Status: F Source: GISSEL KINASE 2:50 PM [facility] REPOSITORY Order Comment: Comments: DC when propofol is d/c'd Comments: DC when propofol is d/c'd TYPE CODE TESTS RESULT OUT OF RANGE REFERENCE UNITS LAB L501.3620 26-192 U/L Normal CPK TOTAL 63 Performed By: #### L501.3620, L501.5000 #### [facility] [address] [facility] [place], [address] TRIGLYCERIDES Collected: 07/20/2018 Status: F Source: GISSEL 2:50 PM [facility] REPOSITORY Order Comment: Comments: DC when propofol [...] mg/dL Performed By: #### L501.3620, L501.5000 #### [facility] [address] [place], [address] CHEST 1 VIEW Observed: 07/20/2018 Status: F Source: GISSEL (PORTABLE) 2:24 PM [facility] REPOSITORY [facility] Imaging Services [address] [place] [address] Chest 1 View (Portable) MR#: [id number] Acct: [id number] Name: JIMENEZ WYNN Rep #: [id number] : 1935 F 82 From: Jourdan De La Fuente MD PCP: Clement Bueno MD Status: ADM IN Study: Chest 1 View (Portable) Date of Exam: 07/20/18 Exam# [id number] Ordering Dr: Juan Jose Lemon MD STUDY: [...] La Fuente MD at 14:55 EDT Tel [phone], Service support , CC: Juan Jose Lemon MD; Clement Bueno MD Fleet Maintenance Manager: Signed Observed: 07/20/2018 Status: F Source: GISSEL CULTURE, DEEP WOUND 12:10 PM [facility] REPOSITORY Order Date: 06/03/17 Comments: Peritoneal Fluid Gram Stain Gram Stain 1+ Red Blood Cells 3+ White Blood Cells 1+ Gram negative rods Rare Gram positive rods Wound Culture * This is an amended result. * A prior result that was reported as final has been changed. 07/23/18 08 by TIARRA Previously reported as: FINAL, POSSIBLE [...] <=20 S (NF) indicates non-formulary drug at [facility]. Approval by Infectious Disease Specialist required before non-formulary drugs may be ordered and/or dispensed. Acinetobacter spp: REACTION Cefepime $ 2 S Ceftazidime *NF 4 S Ceftriaxone $ 16 I Ciprofloxacin $ <=0.25 S Gentamicin $ <=1 S Imipenem *NF 0.5 S Levofloxacin $ <=0.12 S Tobramycin $ <=1 S Trimethoprim/Sulfametho $ 80 R (NF) indicates non-formulary drug at [facility]. Approval by Infectious Disease Specialist required [...] Anaerobic cocci Performed By: #### M100.1500 #### [facility] [address] [place], [address] BEDSIDE GLUCOSE Collected: 07/20/2018 Status: F Source: QUINTER 11:02 AM [facility] REPOSITORY TYPE CODE TESTS RESULT OUT OF REFERENCE UNITS RANGE LAB L501.080 70-110 mg/dL High BEDSIDE GLU 212 Result Comment: MANAGEMENT OF PATIENT CARE PER NURSING PROTOCOL Performed By: #### L501.080 #### [facility] Point of Care [address] [place] [address] COLON (NO NEOPLASM) Observed: 07/20/2018 Status: F Source: QUINTER 10:30 AM [facility] REPOSITORY Patient: JIMENEZ WYNN : 1935 (82/F) Acct Num: [id number] Phys: Paula Garrido MD Unit Num: [id number] Loc: ICU ICU07-1 Specimen: [id number] Received: 07/21/18 - 1006 Spec Type: COLON TISSUES TISSUES: Colon, [...] will be submitted after overnight fixation. / SJ:mac 07/21/18 Sections of pericolonic adipose tissue do not reveal any obviously enlarged lymph node. Performance Improvement Specialist sections are submitted in six cassettes as follows: 1 omentum, 2 proximal and distal resection margin, distal resection margin is inked black, 3 AND 4 area of perforation, 5 - scheduling representative sections from the other area, 6 pericolonic adipose tissue. / GERALDINE:mac 07/22/18 TC:5 CPT: 01671 HEADER OPERATION: Exploratory laparotomy, colon resection, colostomy creation PRE-OP DIAGNOSIS: Pneumoperitoneum TISSUE SUBMITTED: Left colon, omentum, suture marking distal MICROSCOPIC DESCRIPTION Slides are reviewed. MICROSCOPIC DIAGNOSIS Left colon and omentum, colectomy: Segment of colon with area of perforation with associated hemorrhage and inflammation. Omentum with focal mild congestion. SJ:mac 07/23/18 Signed Jeffrey Ryan 07/23/18 <signature on file> Performed By: #### PCOL #### [facility] [address] [facility] [place], [address] EMERGENCY DEPARTMENT Observed: 07/20/2018 Status: F Source: QUINTER SUMMARY 10:27 AM [facility] REPOSITORY [facility] Medical Records Department [address] [place] [address] Emergency Department Summary 07/20/18 0812 MR#: [id number] Acct: [id number] Name: JIMENEZ WYNN Rep #: [id number] : 1935 82 From: Matias Cortes MD [...] first attempt. Using Seldinger technique a 7.5 Bulgarian tube was placed. Portal chest x-ray was [...] Service: 07/20/18 Chief Complaint: Patient presents from [facility] because of confusion and not feeling History of Present Illness: The patient is a 82 F who states I feel like she had . Patient denies every question asked except weakness and not feeling well. Paperwork that accompanied her from [facility] was reviewed and there is no new [...] 4. Hyperglycemia This note was generated with [employer] dictation software. It may contain incorrect words, spelling, and punctuation that were not noted in review of the chart prior to signing ED Disposition - Plan for ED Patient: Chief Complaint: Weakness What to do if you have Problems For any increased pain, shortness of breath, bleeding, nausea or vomiting, chest pain, or any unexpected problems, contact your Primary Care Provider. Call [facility] ([phone]) or report to the closest Emergency Room. Call 911 if necessary. 07/20/18 0934 <Electronically signed by Matias Cortes MD> Date Matias Cortes MD Cosigner Signature (If Indicated): Date CC: Clement Bueno MD; Aurora Young MD CXR FOR LINE PLACEMENT Observed: 07/20/2018 Status: F Source: GISSEL 10:26 AM [facility] REPOSITORY [facility] Imaging Services [address] [place] [address] CXR for Line Placement MR#: [id number] Acct: [id number] Name: KINGSLEYLELANDSHIN Rep #: [id number] : 1935 F 82 From: Jourdan De La Fuente MD PCP: Clement Bueno MD Status: ADM IN Study: CXR for Line Placement Date of Exam: 07/20/18 Exam# [id number] Ordering Dr: Matias Cortes MD STUDY: X-RAY [...] La Fuente MD at 12:15 EDT Tel [phone], Service support , CC: Clement Bueno MD; Matias Cortes MD Fleet Maintenance Manager: Signed Observed: 07/20/2018 Status: F Source: GISSEL CULTURE, BLOOD (WB) 9:45 AM [facility] REPOSITORY ANAEROBIC BOTTLE GRAM STAIN= ANAEROBIC GRAM NEGATIVE JUSTICE AEROBIC BOTTLE: No growth in 5 DAYS. RESULTS CALLED TO KVNG 07/21/18 1251 Debi Sanabria. REPORT READ BACK BY [facility]. Studies Have Confirmed That Clostridium perferingens is routinely susceptible to: Ampicillin/Sulbactam, Piperacillin/Tazobactam, Cefoxitin, Ertapenem, Imipenem, Meropenem, Penicillin/Ampicillin, Moxifloxacin, Clindamycin and Metronidazole. Clostridium species other than C. perferingens are variable in resistance to: Cefoxitin, Clindamycin, Moxifloxacin, imipenem and Penicillin/Ampicillin. RESULTS CALLED TO MARNI DE LA O 07/23/18 0752 Brandi Estrella. REPORT READ BACK BY SAME. ORGANISM 1: Clostridium clostridioforme Amount Growth Growth Performed By: #### M200.1000 #### [facility] [address] [facility] [place], [address] ABDOMEN/PELVIS WITHOUT Observed: 07/20/2018 Status: F Source: QUINTER CONT 8:55 AM [facility] REPOSITORY [facility] Imaging Services [address] [place] [address] Abdomen/Pelvis without Cont MR#: [id number] Acct: [id number] Name: JIMENEZ WYNN Rep #: [id number] : 1935 F 82 From: Jourdan De La Fuetne MD PCP: Clement Bueno MD Status: ADM IN Study: Abdomen/Pelvis without Cont Date of Exam: 07/20/18 Exam# [id number] Ordering Dr: Matias Cortes MD STUDY: CT [...] well as in the region of the kam hepatis and left paracolic gutter. Small amount [...] La Fuente MD at 9:38 EDT Tel [phone], Service support , CC: Clement Bueno MD; Matisa Cortes MD Fleet Maintenance Manager: Signed CHEST 1 VIEW Observed: 07/20/2018 Status: F Source: QUINTER (PORTABLE) 8:27 AM [facility] REPOSITORY [facility] Imaging Services [address] [place] [address] Chest 1 View (Portable) MR#: [id number] Acct: [id number] Name: JIMENEZ WYNN Rep #: [id number] : 1935 F 82 From: Jourdan De La Fuente MD PCP: Clement Bueno MD Status: REG ER Study: Chest 1 View (Portable) Date of Exam: 07/20/18 Exam# [id number] Ordering Dr: Matias Cortes MD STUDY: X-RAY [...] La Fuente MD at 9:15 EDT Tel [phone], Service support , CC: Clement Bueno MD; Matias Cortes MD Fleet Maintenance Manager: Signed URINALYSIS, COMPLETE Collected: 07/20/2018 Status: F Source: GISSEL 8:25 AM [facility] REPOSITORY Order Comment: Microscopic field is filled. Other elements may be obscured. Has pt arrived? Y How was Urine Obtained? MOLECULAR TECHNOLOGIST TO SPECIFY TYPE CODE TESTS RESULT OUT [...] URINE RARE Performed By: #### L400.0001 #### [facility] [address] [facility] [place], [address] Observed: 07/20/2018 Status: F Source: QUINTER CULTURE, URINE 8:25 AM [facility] REPOSITORY Has pt arrived? Y Urine Culture ORGANISM 1: Presumptive E. coli Lemmon Count >100,000 Presumptive E. coli: REACTION Amoxacillin/Clavulanic [...] <=20 S (NF) indicates non-formulary drug at [facility]. Approval by Infectious Disease Specialist required before non-formulary drugs may be ordered and/or dispensed. Performed By: #### M100.0650 #### [facility] [address] [place], [address] VENOUS BLOOD GAS Collected: 07/20/2018 Status: F Source: QUINTER 8:19 AM [facility] REPOSITORY TYPE CODE TESTS RESULT OUT OF [...] 28 ISTAT Performed By: #### L9000.0810 #### [facility] Point of Care [address] [place] [address] CBC W/DIFF, AUTOMATED Collected: 07/20/2018 Status: F Source: GISSEL 8:00 AM [facility] REPOSITORY TYPE CODE TESTS RESULT OUT OF [...] LYMPHOPENIA NOTED. Performed By: #### L100.0100 #### [facility] [address] [place], [address] COMPREHENSIVE METABOLIC Collected: 07/20/2018 Status: F Source: [facility] 8:00 AM [facility] REPOSITORY TYPE CODE TESTS RESULT OUT OF [...] 15 Performed By: #### L500.4050, L501.4010 #### [facility] [address] [place], [place], [address] TROPONIN-I Collected: 07/20/2018 Status: F Source: QUINTER 8:00 [facility] REPOSITORY TYPE CODE TESTS RESULT OUT OF RANGE REFERENCE UNITS LAB L501.4010 <0.045 ng/mL Normal < 0.015 TROPONIN-I Result Comment: TROPONIN-I EXPECTED VALUES <0.045 Negative 0.045 - 0.590 Consistent with Cardiac Damage > OR = 0.600 Critical Value Not every elevated troponin is indicative of TX. These values should be used with clinical judgement in examining the patient's clinical picture for diagnosis. To establish a diagnosis of TX versus myocardial injury, there must be a demonstrated rise and/or fall in the troponin values, in addition to ischemic symptoms, EKG changes, new regional wall motion abnormality, and/or angiographical evidence. PLEASE NOTE: REFERENCE RANGES EDITED 18 Performed By: #### L500.4050, L501.4010 #### [facility] [address] [place], [place], [address] LACTIC ACID Collected: 07/20/2018 Status: F Source: QUINTER 8:00 [facility] REPOSITORY Order Comment: Yes/No query for Sepsis Lactate Rule Y TYPE CODE TESTS RESULT OUT OF REFERENCE UNITS RANGE LAB L503.6005 0.4-2.0 mmol/L High alert LACTIC ACID 5.9 Result Comment: Critical Result(s) Called at: 08:38:50 07/20/2018 by: Lachelle STRANGEyahirtim Performed By: #### L503.6005 #### [facility] [address] [facility] [place], [address] PROTHROMBIN TIME W/INR Collected: 07/20/2018 Status: F Source: GISSEL 8:00 AM [facility] REPOSITORY TYPE CODE TESTS RESULT OUT OF RANGE REFERENCE UNITS LAB L300.4150 11.7-14.9 SECONDS Normal PROTIME 13.4 LAB L300.4200 Normal INR 1.0 Performed By: #### L300.3900, L300.4310 #### [facility] [address] [facility] [place], [address] PARTIAL THROMBOPLAST Collected: 07/20/2018 Status: F Source: GISSEL TIME 8:00 AM [facility] REPOSITORY TYPE CODE TESTS RESULT OUT OF REFERENCE UNITS RANGE LAB L300.4310 24.1-36.2 Seconds Low PTT 23.9 Performed By: #### L300.3900, L300.4310 #### [facility] [place], [address] Observed: 07/20/2018 Status: F Source: GISSEL CULTURE, BLOOD (WB) 8:00 AM [facility] REPOSITORY BC No growth in 5 days. Performed By: #### M200.1000 #### [facility] [address] [place], [place] [address], [address] CHEST 1 VIEW Observed: 07/20/2018 Status: F Source: GISSEL (PORTABLE) 7:58 AM [facility] REPOSITORY [facility] Imaging Services [address] [place] [address] [place] [address] Chest 1 View (Portable) MR#: [id number] Acct: [id number] Name: JIMENEZ WYNN Rep #: [id number] : 1935 F 82 From: Jourdan De La Fuente MD PCP: Clement Bueno MD Status: REG ER Study: Chest 1 View (Portable) Date of Exam: 07/20/18 Exam# [id number] Ordering Dr: Matias Cortes MD STUDY: X-RAY [...] La Fuente MD at 8:36 EDT Tel [phone], Service support , CC: Clement Bueno MD; Matias Cortes MD Fleet Maintenance Manager: Signed LIPID PROFILE Collected: 07/07/2018 Status: F Source: GISSEL 6:20 AM [facility] REPOSITORY Order Comment: ROOM 204 TYPE CODE [...] VLDL 12 Performed By: #### L500.4100 #### [facility] [address] [place], [address] HEMOGLOBIN A1C Collected: 07/07/2018 Status: F Source: QUINTER 6:20 AM [facility] REPOSITORY Order Comment: ROOM 204 TYPE CODE TESTS RESULT OUT OF RANGE REFERENCE UNITS LAB L501.9985 4.2-6.3 % High HGB A1C 10.0 Performed By: #### L501.9985 #### [facility] [address] [facility] [place], [address] VITAMIN D,25 HYDROXY Collected: 07/07/2018 Status: F Source: QUINTER 6:20 AM [facility] REPOSITORY Order Comment: ROOM 204 TYPE CODE TESTS RESULT OUT OF RANGE REFERENCE UNITS LAB L506.1000 29.95-100.01 ng/mL Normal Vitamin D 39.8 25-OH Result Comment: Vitamin D 25(OH) Status Range Deficiency <20 ng/mL (50nmol/L) Insuffciency 20 - 30 ng/mL (50 - 75 nmol/L) Sufficiency 30 - 100 ng/mL (75 - 250 nmol/L) Toxicity >100 ng/mL (>250 nmol/L) Performed By: #### L506.1000 #### [facility] [address] [place], [address] LIVER PROFILE Collected: 06/09/2018 Status: F Source: QUINTER 6:20 AM [facility] REPOSITORY Order Comment: 204 TYPE CODE TESTS [...] 0.14 Performed By: #### L500.3400, L500.4100 #### [facility] [address] [facility]. [place], [place], [address] LIPID PROFILE Collected: 06/09/2018 Status: F Source: QUINTER 6:20 AM [facility] REPOSITORY Order Comment: 204 TYPE CODE TESTS [...] 7 Performed By: #### L500.3400, L500.4100 #### [facility] [address] [facility]. [place], [place], [address] 12 LEAD ELECTROCARDIOGRAM Observed: 06/07/2018 Status: F Source: QUINTER 2:26 PM [facility] REPOSITORY [facility] Cardiovascular Services [address] [place] [address] 12 Lead EKG 06/04/18 0927 MR#: [id number] Acct: [id number] Name: JIMENEZ WYNN Rep #: [id number] : 1935 82 From: Charly Ross MD [...] axis Poor R wave progression Confirmed by CODY MERCER, CHARLY ([id number]), assistant film editor SADIQ BUENO ([id number]) on 06/07/2018 2:26:22 PM Referred By: Confirmed By:CHARLY ROSS MD 06/07/18 1426 Date Charly Ross MD CC: Clement Bueno MD; Charly San MD Signed EMERGENCY DEPARTMENT Observed: 06/04/2018 Status: F Source: QUINTER SUMMARY 9:51 AM [facility] [facility] REPOSITORY [facility] Medical Records Department [address] [place] [address] Emergency Department Summary 06/04/18 0949 MR#: [id number] Acct: [id number] Name: JIMENEZ WYNN Rep #: [id number] : 1935 82 From: Charly San MD [...] sees cardiology she is to follow-up with down. Otherwise she will be discharged in stable condition Impression: SVT resolved This note was generated with [employer] dictation software. It may contain incorrect words, [...] problems, contact your Primary Care Provider. Call [facility] ([phone]) or report to the closest Emergency Room. Call 911 if necessary. 06/04/18 0951 <Electronically signed by Charly San MD> Date Charly San MD Cosigner Signature (If Indicated): Date CC: Tracy Jones DO CARDIOLOGY VISIT Observed: 05/26/2018 Status: F Source: QUINTER REPORT 12:48 PM [facility] REPOSITORY [facility] [address] [place] [address]. [address] [place] [address] OFFICE VISIT Date of Service: 05/26/18 MR#: [id number] Acct: [id number] Name: JIMENEZ WYNN Rep #: [id number] : 1935 Provider: Victoria Lambert Age/Sex: 82/F [place] [facility] [place]: Signed HPI HPI Details: JIMENEZ WYNN, [...] Location Lt brachial Intake Visit Reasons: palpitations Edge Stainer Required: No Accompanied by: Daughter Is patient [...] (valve) insufficiency (Chronic) Atherosclerotic heart disease of [place] coronary artery without angina pectoris (Chronic) Hypothyroidism [...] LEAD ELECTROCARDIOGRAM Observed: 05/13/2018 Status: F Source: QUINTER 2:07 PM [facility] REPOSITORY [facility] Cardiovascular Services [address] [place], [place] [address] [address] 12 Lead EKG 05/09/18 0710 MR#: [id number] Acct: [id number] Name: JIMENEZ WYNN Rep #: [id number] : 1935 82 From: Charly Ross MD Attending Dr: Margoth Carroll MD Status: DIS IN Ordering Dr: Jone Olivares MD Date: 05/09/18 Location: [facility] Sex: F C Admitted: 05/09/18 Test Reason [...] T wave abnormality Abnormal ECG Confirmed by CHARLY ROSS MD ([id number]), assistant film editor SADIQ BUENO ([id number]) on 05/13/2018 2:07:12 PM Referred By: LIZABETH Confirmed By:CHARLY ROSS MD 05/13/18 617 Date Charly Ross MD CC: Tracy Jones DO; Margoth Carroll MD; Jone Olivares MD Signed 12 LEAD ELECTROCARDIOGRAM Observed: 05/13/2018 Status: F Source: QUINTER 2:05 PM [facility] REPOSITORY [facility] [place] Cardiovascular Services [address] [place] [address] 12 Lead EKG 05/10/18 0528 MR#: [id number] Acct: [id number] Name: JIMENEZ WYNN Rep #: [id number] : 1935 82 From: Charly Ross MD Attending Dr: Margoth Carroll MD Status: DIS IN Ordering Dr: Margoth Carroll MD Date: 05/10/18 Location: [facility] Sex: F C Admitted: 05/09/18 Test Reason : AM EKG Blood Pressure : / mmHG Vent. Rate : 063 BPM Atrial Rate : 063 BPM P-R Int : 142 ms QRS Dur : 090 ms QT Int : 424 ms P-R-T Axes : 021 -25 010 degrees QTc Int : 433 ms Normal sinus rhythm Normal ECG Confirmed by CHARLY ROSS MD ([id number]), assistant film editor SADIQ BUENO ([id number]) on 05/13/2018 2:05:31 PM Referred By: COURTNEY Confirmed By:CHARLY ROSS MD 05/13/18 8877 Date Charly Ross MD CC: Tracy Jones DO; Margoth Carroll MD Signed DISCHARGE SUMMARY Observed: 05/10/2018 Status: F Source: GISSEL 3:37 PM [facility] REPOSITORY [facility] Medical Records Department [address] [place] [address] Discharge Summary 05/10/18 1353 MR#: [id number] Acct: [id number] Name: JIMENEZ WYNN Rep #: [id number] : 1935 82 From: Margoth Carroll MD PCP: Tracy Jones DO Status: ADM IN Y Location: [place] [address] Discharge Date and Diagnosis - Problem List [...] (valve) insufficiency (Chronic) 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 [...] 2 diabetes. She [facility] with a complaint of shortness of breath [...] follow-up with her primary care doctor and eyeglass lens generator in 1 week. Patient seen and examined [...] facility today. To follow-up with PCP and eyeglass lens generator. Weight Bearing Status: Weight bearing as tolerated [...] applicable Code Visit Inpatient E AND M: 60527 Disch Hosp 05/10/18 1537 <Electronically signed by Margoth Carroll MD> Date Margoth Carroll MD Cosigner Signature (if applicable): Date CC: Tracy Jones DO; Margoth Carroll MD Signed 12 LEAD ELECTROCARDIOGRAM Observed: 05/10/2018 Status: F Source: QUINTER 3:12 PM [facility] REPOSITORY [facility] [place] Cardiovascular Services [address] [place] [address] 12 Lead EKG 05/08/18 1829 MR#: [id number] Acct: [id number] Name: JIMENEZ WYNN Rep #: [id number] : 1935 82 From: Markus Cueto MD Attending Dr: Margoth Carroll MD Status: ADM IN Ordering Dr: Blake Powers MD Date: 05/08/18 Location: [facility] Sex: F C Admitted: 05/09/18 Test Reason [...] ECG Confirmed by MARKUS CUETO MD ([id number]), assistant film editor SADIQ BUENO ([id number]) on 05/10/2018 3:11:47 PM Referred By: MIGUEL Confirmed By:MARKUS CUETO MD 05/10/18 9841 Date Markus Cueto MD CC: Tracy Jones DO; Margoth Carroll MD; Blake Powers MD Signed DISCHARGE INSTRUCTION Observed: 05/10/2018 Status: F Source: QUINTER 2:40 PM [facility] REPOSITORY [facility] [place] Medical Records Department [address] [place] [address] Instructions for Home/Discharge Instructions 05/10/18 1440 MR#: [id number] Acct: [id number] Name: JIMENEZ WYNN Rep #: [id number] : 1935 82 From: Margoth Carroll MD [...] Austin MD; Tracy Jones DO TRANSFER TO EXTENDED Observed: 05/10/2018 Status: F Source: QUINTER CARE 2:05 PM [facility] REPOSITORY [facility] [place] Medical Records Department [address] [place] [address] Transfer to [facility] Care MR#: [id number] Acct: [id number] Name: JIMENEZ WYNN Rep #: [id number] : 1935 82 From: Margoth Carroll MD PCP: Tracy Jones DO Status: ADM IN JIMENEZ WYNN (Patient) (Health Ins. Claim No.) (Day of Discharge to Facility) Certification of patient admission REQUIRED AT TIME OF ADMISSION. I CERTIFY THAT POST-HOSPITAL ECF SERVICES ARE REQUIRED TO BE GIVEN ON AN IN-PATIENT BASIS BECAUSE OF THE ABOVE NAMED PATIENT'S NEED FOR [facility] CARE ON A CONTINUING BASIS FOR THE CONDITION(S) FOR WHICH HE/SHE WAS RECEIVING IN-PATIENT HOSPITAL SERVICES PRIOR TO HIS/HER TRANSFER TO THE [facility]. 05/10/18 1405 <Electronically signed by Margoth Carroll [...] Than 30 Days Type of Care Needed: Snf/Assisted Living Rehab Potential: Good Prognosis: Good - [...] STRESS REPORT Observed: 05/10/2018 Status: F Source: GISSEL 1:25 PM [facility] REPOSITORY [facility] Cardiovascular Services [address] [place] [address] MR#: [id number] Acct: [id number] Name: KINGSLEYLELANDSHIN Rep #: [id number] : 1935 82 From: Markus Cueto MD [...] MD Date Dictated: 05/10/18 1323 Date Transcribed: 05/10/18 132 Fleet Maintenance Manager: [place] Signed BEDSIDE GLUCOSE Collected: 05/10/2018 Status: F Source: GISSEL 12:52 PM [facility] REPOSITORY TYPE CODE TESTS RESULT OUT OF REFERENCE UNITS RANGE LAB L501.080 70-110 mg/dL High BEDSIDE GLU 161 Result Comment: MANAGEMENT OF PATIENT CARE PER NURSING PROTOCOL Performed By: #### L501.080 #### [facility] [facility] Point of Care [address] [place] [address] BEDSIDE GLUCOSE Collected: 05/10/2018 Status: F Source: GISSEL 6:53 AM [facility] REPOSITORY TYPE CODE TESTS RESULT OUT OF RANGE REFERENCE UNITS LAB L501.080 70-110 mg/dL Normal BEDSIDE GLU 99 Result Comment: MANAGEMENT OF PATIENT CARE PER NURSING PROTOCOL Performed By: #### L501.080 #### [facility] [facility] Point of Care [address] [place] [address] BASIC METABOLIC Collected: 05/10/2018 Status: F Source: GISSEL PROFILE (BMP) 5:00 AM [facility] REPOSITORY TYPE CODE TESTS RESULT OUT OF [...] GAP 7 Performed By: #### L500.2500 #### [facility] [address] [place], [place], [address] PROTHROMBIN TIME W/INR Collected: 05/10/2018 Status: F Source: GISSEL 5:00 AM [facility] REPOSITORY TYPE CODE TESTS RESULT OUT OF RANGE REFERENCE UNITS LAB L300.4150 11.7-14.9 SECONDS Normal PROTIME 14.2 LAB L300.4200 Normal INR 1.1 Performed By: #### L300.3900, L300.4310 #### [facility] [address] [facility] [place], [address] PARTIAL THROMBOPLAST Collected: 05/10/2018 Status: F Source: QUINTER TIME 5:00 AM [facility] REPOSITORY TYPE CODE TESTS RESULT OUT OF RANGE REFERENCE UNITS LAB L300.4310 24.1-36.2 Seconds Normal PTT 34.3 Performed By: #### L300.3900, L300.4310 #### [facility] [place], [place], [address] CBC W/DIFF, AUTOMATED Collected: 05/10/2018 Status: F Source: QUINTER 5:00 AM [facility] REPOSITORY TYPE CODE TESTS RESULT OUT OF [...] Lymph 1.27 Performed By: #### L100.0100 #### [facility] [address] [facility] [place], [address] BEDSIDE GLUCOSE Collected: 05/09/2018 Status: F Source: GISSEL 9:25 PM [facility] RE[facility]IT[facility] TYPE CODE TESTS RESULT OUT OF REFERENCE UNITS RANGE LAB L501.080 70-110 mg/dL High BEDSIDE GLU 183 Result Comment: MANAGEMENT OF PATIENT CARE PER NURSING PROTOCOL Performed By: #### L501.080 #### [facility] Point of Care [address] [facility] [place] [address] BEDSIDE GLUCOSE Collected: 05/09/2018 Status: F Source: GISSEL 4:45 PM [facility] RE[facility] TYPE CODE TESTS RESULT OUT OF REFERENCE UNITS RANGE LAB L501.080 70-110 mg/dL High BEDSIDE GLU 246 Result Comment: MANAGEMENT OF PATIENT CARE PER NURSING PROTOCOL Performed By: #### L501.080 #### [facility] Point of Care [address] [facility] [place] [address] CTA CHEST W/WO Observed: 05/09/2018 Status: F Source: GISSEL CONTRAST 2:31 PM [facility] REPOSITORY [facility] Imaging Services [address] [place] [address] CTA Chest W/WO Contrast MR#: [id number] Acct: [id number] Name: JIMENEZ WYNN Rep #: [id number] : 1935 F 82 From: Cosme Melendez MD PCP: Tracy Jones DO Status: ADM IN Study: CTA Chest W/WO Contrast Date of Exam: 05/09/18 Exam# [id number] Ordering Dr: Margoth Carroll MD STUDY: CTA [...] CC: Tracy Jones DO; Margoth Carroll MD Fleet Maintenance Manager: Signed D-DIMER QUANTITATIVE Collected: 05/09/2018 Status: F Source: GISSEL (DVT/PE) 1:55 PM [facility] REPOSIT[facility] TYPE CODE TESTS RESULT OUT OF [...] SAME . Performed By: #### L300.8000 #### [facility] [address] [facility] [place], [address] CONSULTATION Observed: 05/09/2018 Status: F Source: GISSEL 11:39 AM [facility] REPOSITORY [facility] Medical Records Department [address] [place] [address] Consultation 05/09/18 1129 MR#: [id number] Acct: [id number] Name: JIMENEZ WYNN Rep #: [id number] : 1935 82 From: Pat Austin MD PCP: Tracy Jones DO Status: ADM KIANA Y Location: [place] [address] Problem List (1) SVT (supraventricular tachycardia) Status: [...] Problems (Last Reviewed 03/01/18 @ 13:10 by Victoira Fu) Takotsubo cardiomyopathy (Chronic) Nonrheumatic tricuspid (valve) insufficiency (Chronic) 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 Will check a [employer] stress Cardiolite to evaluate for progression of disease 3. History of Takotsubo's cardiomyopathy. Ejection fraction normalized as per last echocardiogram done in January of this year 4. History of CVA 5. Dyspnea. Resolved. Likely secondary to #1 above. Will check a d-dimer however 6. Acute on chronic kidney insufficiency 05/09/18 1139 <Electronically signed by Pat Austin MD> Date Pat Austin MD [facility] Signature (if applicable): Date CC: Pat Austin MD; Tracy Jones DO Signed BEDSIDE GLUCOSE Collected: 05/09/2018 Status: F Source: GISSEL 11:35 AM [facility] RE[facility] TYPE CODE TESTS RESULT OUT OF REFERENCE UNITS RANGE LAB L501.080 70-110 mg/dL High BEDSIDE GLU 308 Result Comment: MANAGEMENT OF PATIENT CARE PER NURSING PROTOCOL Performed By: #### L501.080 #### [facility] Point of Care [address] [facility] [place] [address] TROPONIN-I Collected: 05/09/2018 Status: F Source: GISSEL 7:50 AM [facility] REPOSITORY Order Comment: 'TROP' Serial specimen #1, #2 or #3: 3 TYPE CODE TESTS RESULT OUT OF RANGE REFERENCE UNITS LAB L501.4010 <0.045 ng/mL High 0.387 TROPONIN-I Result Comment: TROPONIN-I EXPECTED VALUES <0.045 Negative 0.045 - 0.590 Consistent with Cardiac Damage > OR = 0.600 Critical Value Not every elevated troponin is indicative of [place]. These values should be used with clinical judgement in examining the patient's clinical picture for diagnosis. To establish a diagnosis of [place] versus myocardial injury, there must be a demonstrated rise and/or fall in the troponin values, in addition to ischemic symptoms, EKG changes, new regional wall motion abnormality, and/or angiographical evidence. PLEASE NOTE: REFERENCE RANGES EDITED 18 Performed By: #### L501.4010 #### [facility] [address] [facility] [place], [address] BEDSIDE GLUCOSE Collected: 05/09/2018 Status: F Source: GISSEL 6:45 AM [facility] TYPE CODE TESTS RESULT OUT OF REFERENCE UNITS RANGE LAB L501.080 70-110 mg/dL High BEDSIDE GLU 165 Result Comment: MANAGEMENT OF PATIENT CARE PER NURSING PROTOCOL Performed By: #### L501.080 #### [facility] Point of Care [address] [place] [address] HISTORY AND PHYSICAL Observed: 05/09/2018 Status: F Source: QUINTER EXAM 5:51 AM [facility] REPOSITORY [facility] Medical Records Department [address] [place] [address] History and Physical 05/08/182148 MR#: [id number] Acct: [id number] Name: JIMENEZ WYNN Rep #: [id number] : 1935 82 From: Jone Olivares MD PCP: Tracy Jones DO Status: ADM KIANA Y Location: [place] [address] Problem List (1) DEMETRA (acute kidney injury) Status: Acute (2) SVT (supraventricular tachycardia) Status: Acute (3) Nonrheumatic tricuspid (valve) insufficiency Status: Chronic (4) Atherosclerotic heart disease of [place] coronary artery without angina pectoris Status: Chronic [...] (valve) insufficiency (Chronic) 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 2) Elevated trops: Probably type II TX. Will consult cards. Probably no aggressive care [...] 05/09/2018 Status: F Source: GISSEL 4:33 AM [facility] REPOSITORY TYPE CODE TESTS RESULT OUT OF RANGE REFERENCE UNITS LAB L300.4150 11.7-14.9 SECONDS Normal PROTIME 14.0 LAB L300.4200 Normal INR 1.1 Performed By: #### L300.3900 #### [facility] [address] [place], [address] TROPONIN-I Collected: 05/09/2018 Status: F Source: QUINTER 4:33 AM [facility] REPOSIT[facility] Order Comment: 'TROP' Serial specimen #1, #2 or #3: 2 TYPE CODE TESTS RESULT OUT OF RANGE REFERENCE UNITS LAB L501.4010 <0.045 ng/mL High 0.383 TROPONIN-I Result Comment: TROPONIN-I EXPECTED VALUES <0.045 Negative 0.045 - 0.590 Consistent with Cardiac Damage > OR = 0.600 Critical Value Not every elevated troponin is indicative of [place]. These values should be used with clinical judgement in examining the patient's clinical picture for diagnosis. To establish a diagnosis of TX versus myocardial injury, there must be a demonstrated rise and/or fall in the troponin values, in addition to ischemic symptoms, EKG changes, new regional wall motion abnormality, and/or angiographical evidence. PLEASE NOTE: REFERENCE RANGES EDITED 18 Performed By: #### L501.4010 #### [facility] [address] [place], [address] BASIC METABOLIC Collected: 05/09/2018 Status: F Source: QUINTER PROFILE (BMP) 4:33 AM [facility] RE[facility] TYPE CODE TESTS RESULT OUT OF [...] GAP 10 Performed By: #### L500.2500 #### [facility] [address] [facility] [place], [address] EMERGENCY DEPARTMENT Observed: 05/09/2018 Status: F Source: QUINTER SUMMARY 2:01 AM [facility] REPOSITORY [facility] Medical Records Department [address] [place] [address] Emergency Department Summary 05/08/182023 MR#: [id number] Acct: [id number] Name: JIMENEZ WYNN Rep #: [id number] : 1935 82 From: Blake Powers MD [...] 2. Conversion with adenosine. 3. Hyperglycemia with nbb-zfkybrx-skhwwhmrh diabetes mellitus. 4. Acute renal insufficiency. 5. Critical care time 30 minutes. This note was generated with [employer] dictation software. It may contain incorrect words, [...] your Primary Care Provider. Call [facility] ([phone]) or report to the closest Emergency Room. Call 911 if necessary. 05/09/18 0201 <Electronically signed by Blake Powers MD> Date Blake Powers MD Cosigner Signature (If Indicated): Date CC: Tracy Jones DO TROPONIN-I Collected: 05/09/2018 Status: F Source: QUINTER 1:58 AM [facility] REPOSITORY Order Comment: 'TROP' Serial specimen #1, #2 or #3: 1 TYPE CODE TESTS RESULT OUT OF RANGE REFERENCE UNITS LAB L501.4010 <0.045 ng/mL High 0.372 TROPONIN-I Result Comment: TROPONIN-I EXPECTED VALUES <0.045 Negative 0.045 - 0.590 Consistent with Cardiac Damage > OR = 0.600 Critical Value Not every elevated troponin is indicative of [place]. These values should be used with clinical judgement in examining the patient's clinical picture for diagnosis. To establish a diagnosis of TX versus myocardial injury, there must be a demonstrated rise and/or fall in the troponin values, in addition to ischemic symptoms, EKG changes, new regional wall motion abnormality, and/or angiographical evidence. PLEASE NOTE: REFERENCE RANGES EDITED 18 Performed By: #### L501.4010 #### [facility] [place], [address] BEDSIDE GLUCOSE Collected: 05/08/2018 Status: F Source: GISSEL 11:31 PM [facility] REPOSIT[facility] TYPE CODE TESTS RESULT OUT OF REFERENCE UNITS RANGE LAB L501.080 70-110 mg/dL High BEDSIDE GLU 210 Result Comment: MANAGEMENT OF PATIENT CARE PER NURSING PROTOCOL Performed By: #### L501.080 #### [facility] Point of Care [address] [place], [place] [address] CBC W/DIFF, AUTOMATED Collected: 05/08/2018 Status: F Source: GISSEL 6:35 PM [facility] REPOSIT[facility] TYPE CODE TESTS RESULT OUT OF [...] Lymph 1.42 Performed By: #### L100.0100 #### [facility] [address] [facility] [place], [address] BASIC METABOLIC Collected: 05/08/2018 Status: F Source: GISSEL PROFILE (BMP) 6:35 PM [facility] RE[facility] TYPE CODE TESTS RESULT OUT OF [...] Performed By: #### L500.2500, L501.4010, L501.9520 #### [facility] [address] [place], [address] TROPONIN-I Collected: 05/08/2018 Status: F Source: QUINTER 6:35 PM [facility] RE[facility] TYPE CODE TESTS RESULT OUT OF RANGE REFERENCE UNITS LAB L501.4010 <0.045 ng/mL High 0.082 TROPONIN-I Result Comment: TROPONIN-I EXPECTED VALUES <0.045 Negative 0.045 - 0.590 Consistent with Cardiac Damage > OR = 0.600 Critical Value Not every elevated troponin is indicative of TX. These values should be used with clinical judgement in examining the patient's clinical picture for diagnosis. To establish a diagnosis of TX versus myocardial injury, there must be a demonstrated rise and/or fall in the troponin values, in addition to ischemic symptoms, EKG changes, new regional wall motion abnormality, and/or angiographical evidence. PLEASE NOTE: REFERENCE RANGES EDITED 18 Performed By: #### L500.2500, L501.4010, L501.9520 #### [facility] [address] [place], [address] THYROID STIM HORMONE Collected: 05/08/2018 Status: F Source: QUINTER (TSH) 6:35 PM [facility] REPOSITORY TYPE CODE TESTS RESULT OUT OF RANGE REFERENCE UNITS LAB L501.9520 0.358-3.74 uIU/mL Normal TSH 2.96 Performed By: #### L500.2500, L501.4010, L501.9520 #### [facility] [address] [place], [address] CHEST 1 VIEW Observed: 05/08/2018 Status: F Source: QUINTER (PORTABLE) 6:32 PM [facility] REPOSITORY [facility] Imaging Services [address] [place] [address] Chest 1 View (Portable) MR#: [id number] Acct: [id number] Name: JIMENEZ WYNN Rep #: [id number] : 1935 F 82 From: Jose G Vo MD PCP: Tracy Jones DO Status: REG ER Study: Chest 1 View (Portable) Date of Exam: 05/08/18 Exam# [id number] Ordering Dr: Blake Powers MD STUDY: X-RAY [...] CC: Tracy Jones DO; Blake Powers MD Fleet Maintenance Manager: Signed CBC W/DIFF, AUTOMATED Collected: 04/14/2018 Status: F Source: GISSEL 5:40 AM [facility] REPOSITORY Order Comment: ROOM 204 [place] TYPE CODE TESTS RESULT OUT OF RANGE [...] Lymph 1.60 Performed By: #### L100.0100 #### [facility] [address] [facility] [place], [place], [address] HEMOGLOBIN A1C Collected: 04/14/2018 Status: F Source: QUINTER 5:40 AM [facility] REPOSITORY Order Comment: ROOM 204 [place] TYPE CODE TESTS RESULT OUT OF RANGE REFERENCE UNITS LAB L501.9985 4.2-6.3 % High HGB A1C 9.1 Performed By: #### L501.9985 #### [facility] [address] [facility] [place], [address] COMPREHENSIVE METABOLIC Collected: 04/14/2018 Status: F Source: [facility] 5:40 AM [facility] REPOSITORY Order Comment: ROOM 204 [place] TYPE [...] 9 Performed By: #### L500.4050, L503.6150 #### [facility] [address] [facility] [place], [place], [address] IRON Collected: 04/14/2018 Status: F Source: GISSEL 5:40 AM [facility] REPOSITORY Order Comment: ROOM 204 [place] TYPE CODE TESTS RESULT OUT OF RANGE REFERENCE UNITS LAB L503.6150 50-170 ug/dL Low IRON 42 Performed By: #### L500.4050, L503.6150 #### [facility] [address] [facility]. [place], [place], [address] VITAMIN B12 Collected: 04/14/2018 Status: F Source: QUINTER 5:40 AM [facility] REPOSITORY Order Comment: ROOM 204 ZURITA TYPE CODE TESTS RESULT OUT OF RANGE REFERENCE UNITS LAB L503.0105 211-911 pg/mL Normal Vitamin B12 350 Performed By: #### L503.0105 #### [facility] [address] [place], [address] 12 LEAD ELECTROCARDIOGRAM Observed: 03/25/2018 Status: F Source: GISSEL 10:39 AM [facility] REPOSITORY [facility] Cardiovascular Services [address] [place] [address] 12 Lead EKG 03/01/18 1402 MR#: [id number] Acct: [id number] Name: JIMENEZ WYNN Rep #: [id number] : 1935 82 From: Charly Ross MD Attending Dr: Yefri Bartholomew DO Status: DIS IN Ordering Dr: Jeremi Rosales DO Date: 03/01/18 Location: [facility] Sex: F C Admitted: 03/01/18 Test Reason : HYPOTENSION Blood Pressure : / mmHG Vent. Rate : 164 BPM Atrial Rate : 174 BPM P-R Int : 000 ms QRS Dur : 086 ms QT Int : 282 ms P-R-T Axes : 000 -31 084 degrees QTc Int : 465 ms Supraventricular tachycardia Left axis deviation Abnormal ECG Confirmed by CODY MERCER, CHARLY ([id number]), assistant film editor SADIQ BUENO (56) on 03/03/2018 9:08:14 AM Referred By: SL Confirmed By:CHARLY ROSS MD 03/03/18 0908 Date Charly Ross MD CC: Yefri Bartholomew DO; Tracy Jones DO; Jeremi Rosales DO Signed 12 LEAD ELECTROCARDIOGRAM Observed: 03/03/2018 Status: F Source: GISSEL 6:10 PM [facility] REPOSITORY [facility] [place] Cardiovascular Services [address] [address] 12 Lead EKG 03/01/18 1402 MR#: [id number] Acct: [id number] Name: JIMENEZ WYNN Rep #: [id number] : 1935 82 From: Charly Ross MD [...] Abnormal ECG Confirmed by CHARLY ROSS MD ([id number]), assistant film editor SADIQ BUEON (56) on 03/03/2018 9:08:14 AM Referred By: DARA Confirmed By:CHARLY ROSS MD 03/03/18907 Date Charly Ross MD CC: Tracy Jones DO; Jeremi Rosales DO Signed 12 LEAD ELECTROCARDIOGRAM Observed: 03/03/2018 Status: F Source: GISSEL 6:10 PM [facility] REPOSITORY [facility] [place] Cardiovascular Services [address] [place] [address] 12 Lead EKG 03/01/18 1416 MR#: [id number] Acct: [id number] Name: JIMENEZ WYNN Rep #: [id number] : 1935 82 From: Charly Ross MD Attending Dr: Yefri Bartholomew DO Status: DIS IN Ordering Dr: Jeremi Rosales DO Date: 03/01/18 Location: [facility] Sex: F C Admitted: 03/01/18 Test Reason [...] R wave progression Abnormal ECG Confirmed by CHARLY ROSS MD ([id number]), assistant film editor SADIQ BUENO (56) on 03/03/2018 9:08:35 AM Referred By: UNGUR Confirmed By:CHARLY ROSS MD 03/03/18 0908 Date Charly Ross MD CC: Yefri Bartholomew DO; Tracy Jones DO; Jeremi Rosales Signed DISCHARGE SUMMARY Observed: 03/03/2018 Status: F Source: QUINTER 1:27 PM [facility] REPOSITORY [facility] [place] Medical Records Department [address] [place] [address] Discharge Summary 03/03/18 1022 MR#: [id number] Acct: [id number] Name: JIMENEZ WYNN Rep #: [id number] : 1935 82 From: Brandi Simpson INDUSTRIAL GAS SERVICE HELPERAnnie PCP: Tracy Jones DO Status: ADM IN Y Location: [place] [id number] <Brandi Simpson - Last Filed: 03/03/18 10:31> [...] (valve) insufficiency (Chronic) 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 [...] living facility. This patient was seen by LEONARDO Alejandra under the supervision of Dr. Bartholomew. 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 I agree with the above INDUSTRIAL GAS SERVICE HELPER note. The patient is a 82 year [...] Increased palpitations (irregular heartbeat) Disposition: Asstd Living/Non-[place]ill [place] Patient Condition:: Stable Medical Necessity - Tobacco Use Smoking Status: Never smoker Meaningful Use Info Meaningful Use Diagnoses (Choose all that apply): None applicable Code Visit Inpatient E AND M: 04503 Disch Hosp 03/03/18 1032 <Electronically signed by Brandi PATTERSON> Date Brandi GALINDOC 03/03/18 1327<Electronically signed by Yefri Bartholomew DO> Cosigner Signature (if applicable): Date Yefri Bartholomew DO CC: LEONARDO Simpson; Yefri Bartholomew DO; Tracy Jones DO Signed BEDSIDE GLUCOSE Collected: 03/03/2018 Status: F Source: QUINTER 11:18 AM [facility] REPOSITORY TYPE CODE TESTS RESULT OUT OF REFERENCE UNITS RANGE LAB L501.080 70-110 mg/dL High BEDSIDE GLU 413 Result Comment: MANAGEMENT OF PATIENT CARE PER NURSING PROTOCOL Performed By: #### L501.080 #### [facility] Point of Care [address] [place] [address] DISCHARGE INSTRUCTION Observed: 03/03/2018 Status: F Source: QUINTER 10:22 AM [facility] REPOSITORY [facility] [place] Medical Records Department [address] [place] [address] Instructions for Home/Discharge Instructions 03/03/18 1019 MR#: [id number] Acct: [id number] Name: JIMENEZ WYNN Rep #: [id number] : 1935 82 From: Brandi PATTERSON PCP: [...] 03/03/18 03/03/18 1022 <Electronically signed by Brandi GALINDOC> Date Brandi PATTERSON CC: Tracy Jones DO; Charly Ross MD BEDSIDE GLUCOSE Collected: 03/03/2018 Status: F Source: GISSEL 6:57 AM [facility] REPOSITORY TYPE CODE TESTS RESULT OUT OF RANGE REFERENCE UNITS LAB L501.080 70-110 mg/dL Normal BEDSIDE GLU 105 Result Comment: MANAGEMENT OF PATIENT CARE PER NURSING PROTOCOL Performed By: #### L501.080 #### [facility] Point of Care [address] [place], [place] [address], [place] [address] CBC-COMPLETE BLOOD CNT Collected: 03/03/2018 Status: F Source: GISSEL NO DIFF 5:40 AM [facility] REPOSITORY TYPE CODE TESTS RESULT OUT OF [...] MPV 8.8 Performed By: #### L100.0500 #### [facility] [address] [place], [place], [address] BASIC METABOLIC Collected: 03/03/2018 Status: F Source: QUINTER PROFILE ([facility]) 5:40 AM [facility] REPOSITORY TYPE CODE TESTS RESULT OUT OF [...] GAP 11 Performed By: #### L500.2500 #### [facility] [address] [place], [place], [address] BEDSIDE GLUCOSE Collected: 03/02/2018 Status: F Source: GISSEL 9:04 PM [facility] REPOSITORY TYPE CODE TESTS RESULT OUT OF REFERENCE UNITS RANGE LAB L501.080 70-110 mg/dL High BEDSIDE GLU 249 Result Comment: MANAGEMENT OF PATIENT CARE PER NURSING PROTOCOL Performed By: #### L501.080 #### [facility] Point of Care [address] [place], [place] [address] BEDSIDE GLUCOSE Collected: 03/02/2018 Status: F Source: GISSEL 4:07 PM [facility] REPOSITORY TYPE CODE TESTS RESULT OUT OF REFERENCE UNITS RANGE LAB L501.080 70-110 mg/dL Low BEDSIDE GLU 64 Result Comment: MANAGEMENT OF PATIENT CARE PER NURSING PROTOCOL Performed By: #### L501.080 #### [facility] Point of Care [address] [place], [place] [address] ECHOCARDIOGRAM COMPLETE Observed: 03/02/2018 Status: F Source: QUINTER 2:00 PM [facility] REPOSITORY [facility] Cardiovascular Services [address] [place] [address] Echo Complete 03/02/18 0907 MR#: [id number] Acct: [id number] Name: JIMENEZ WYNN Rep #: [id number] : 1935 82 From: Charly Ross MD Attending Dr: Yefri Bartholomew DO Status: ADM IN Ordering Dr: Mohsen Goncalves MD Date: 03/01/18 Location: U Sex: F C Admitted: 03/01/18 Reason For [...] flow velocities suggest diastolic dysfunction. Ordering Physician: Mohsen Goncalves Referring Physician: TRACY JONES Performed By: Екатерина Boss, ROBERT, RVT 03/02/18 1400 Date Charly Ross MD CC: Yefri Bartholomew DO; Mohsen Goncalves; Tracy Jones DO Date Dictated: 03/02/18 0907 Date Transcribed: 03/02/18 1400 Fleet Maintenance Manager: Signed BEDSIDE GLUCOSE Collected: 03/02/2018 Status: F Source: GISSEL 1:16 PM [facility] REPOSITORY TYPE CODE TESTS RESULT OUT OF REFERENCE UNITS RANGE LAB L501.080 70-110 mg/dL High BEDSIDE GLU 370 Result Comment: MANAGEMENT OF PATIENT CARE PER NURSING PROTOCOL Performed By: #### L501.080 #### [facility] Point of Care [address] [place] [address] Observed: 03/02/2018 Status: F Source: GISSEL LEGIONELLA ANTIGEN 12:45 PM [facility] URINE REPOSITORY Legionella, UR Legionella Antigen result interpretation: Negative Presumptive negative for Legionella pneumophila serogroup 1 antigen in urine, suggesting no recent or current infection. Legionella Ag, Urine Negative (See interpretation below) Performed By: #### M300.4500 #### [facility] [address] [place] [address], [address] STREP Observed: 03/02/2018 Status: F Source: QUINTER PNEUMONIAE ANTIG(UR,CSF) 12:45 PM [facility] REPOSITORY S pneumo Ag URINE INTERPRETATION Negative Urine Presumptive negative for pneumococcal pneumonia, suggesting no current or recent pneumococcal infection. Infection due to S pneumoniae cannot be ruled out since the antigen present in the sample may be below the detection limit of the test. Strep pneumo Test Negative URINE (See interpretation below) Performed By: #### M300.4600 #### [facility] [address] [place] [address], [address] BEDSIDE GLUCOSE Collected: 03/02/2018 Status: F Source: QUINTER 10:54 AM [facility] REPOSITORY TYPE CODE TESTS RESULT OUT OF REFERENCE UNITS RANGE LAB L501.080 70-110 mg/dL High alert BEDSIDE GLU 465 Result Comment: Repeat Test MANAGEMENT OF PATIENT CARE PER NURSING PROTOCOL Performed By: #### L501.080 #### [facility] Point of Care [address] [place] [address] CONSULTATION Observed: 03/02/2018 Status: F Source: QUINTER 10:23 AM [facility] REPOSITORY [facility] [place] Medical Records Department [address] [place] [address] Consultation 03/02/18 0641 MR#: [id number] Acct: [id number] Name: JIMENEZ WYNN Rep #: [id number] : 1935 82 From: Markus Cueto MD PCP: Tracy Jones DO Status: ADM IN Y Location: [place] [id number] Reason for Consult Date of Consultation: 03/02/18 [...] (valve) insufficiency (Chronic) 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 Hypothyroidism (Chronic) COPD (chronic obstructive pulmonary disease) (Chronic) Hyperlipidemia (Chronic) Type 2 diabetes mellitus (Chronic) Surgical History: hysterectomy, total hip arthroplasty, - - Fractured femur Psychiatric History: No pertinent psych hx 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 Point of Care [address] [place] [address] CBC W/DIFF, AUTOMATED Collected: 03/02/2018 Status: F Source: QUINTER 5:50 AM [facility] REPOSITORY Order Comment: REDRAW. PREVIOUS SPECIMEN REJECTED [...] OVALOCYTE RARE Performed By: #### L100.0100 #### [facility] [address] [place], [address] TROPONIN-I Collected: 03/02/2018 Status: F Source: GISSEL 4:45 AM [facility] REPOSITORY Order Comment: 'TROP' Serial specimen #1, #2, #3, or #4: 4 TYPE CODE TESTS RESULT OUT OF RANGE REFERENCE UNITS LAB L501.4010 <0.06 ng/mL High 0.15 TROPONIN-I Result Comment: TROPONIN-I EXPECTED VALUES <0.05 NEGATIVE 0.06 - 0.59 AT RISK OF [place] > OR = 0.60 SUGGEST TX Performed By: #### L501.4010, L500.2500 #### [facility] [address] [place], [address] BASIC METABOLIC Collected: 03/02/2018 Status: F Source: QUINTER PROFILE (BMP) 4:45 AM [facility] REPOSITORY Order Comment: 'TROP' Serial specimen #1, [...] 8 Performed By: #### L501.4010, L500.2500 #### [facility] [address] [place], [address] MAGNESIUM Collected: 03/02/2018 Status: F Source: GISSEL 4:45 AM [facility] REPOSITORY TYPE CODE TESTS RESULT OUT OF RANGE REFERENCE UNITS LAB L501.5200 1.6-2.6 mg/dL Low MG 1.5 Performed By: #### L501.5200 #### [facility] [address] [place], [address] BEDSIDE GLUCOSE Collected: 03/01/2018 Status: F Source: GISSEL 10:31 PM [facility] REPOSITORY TYPE CODE TESTS RESULT OUT OF REFERENCE UNITS RANGE LAB L501.080 70-110 mg/dL High BEDSIDE GLU 339 Result Comment: MANAGEMENT OF PATIENT CARE PER NURSING PROTOCOL Performed By: #### L501.080 #### [facility] Point of Care [address] [place] [address] TROPONIN-I Collected: 03/01/2018 Status: F Source: GISSEL 6:55 PM [facility] REPOSITORY Order Comment: 'TROP' Serial specimen #1, #2, #3, or #4: 2 TYPE CODE TESTS RESULT OUT OF RANGE REFERENCE UNITS LAB L501.4010 <0.06 ng/mL High 0.15 TROPONIN-I Result Comment: TROPONIN-I EXPECTED VALUES <0.05 NEGATIVE 0.06 - 0.59 AT RISK OF [place] > OR = 0.60 SUGGEST TX Performed By: #### L501.4010 #### [facility] [place], [address] POTASSIUM Collected: 03/01/2018 Status: F Source: GISSEL 6:55 PM [facility] REPOSITORY TYPE CODE TESTS RESULT OUT OF RANGE REFERENCE UNITS LAB L501.5600 3.5-5.1 mmol/L Normal K 5.1 Performed By: #### L501.5600 #### [facility] [address] [place], [address] THYROID STIM HORMONE Collected: 03/01/2018 Status: F Source: GISSEL (TSH) 6[facility]55 PM [facility] TYPE CODE TESTS RESULT OUT OF RANGE REFERENCE UNITS LAB L501.9520 0.358-3.74 uIU/mL Normal TSH 2.14 Performed By: #### L501.9520 #### [facility] [address] [place], [address] HISTORY AND PHYSICAL Observed: 03/01/2018 Status: F Source: QUINTER EXAM 5:14 PM [facility] REPOSITORY [facility] Medical Records Department [address] [place] [address] History and Physical 03/01/18 1557 MR#: [id number] Acct: [id number] Name: JIMENEZ WYNN Rep #: [id number] : 1935 82 From: Mohsen Goncalves MD PCP: Tracy Jones DO Status: ADM IN Location: [place] [address] Problem List (1) Takotsubo cardiomyopathy Status: Chronic (2) Nonrheumatic tricuspid (valve) insufficiency Status: Chronic (3) Atherosclerotic heart disease of [place] coronary artery without angina pectoris Status: Chronic [...] (valve) insufficiency (Chronic) 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 [...] femur Psychiatric History: No pertinent psych hx 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 This note was generated with [employer] dictation software. It may contain incorrect words, spelling, and punctuation that were not noted in checking the note before signing. Code Visit Inpatient E AND M: 23045 Init Hosp L3 03/01/18 7064 <Electronically signed by Mohsen Goncalves MD> Date Mohsen Goncalves MD Cosigner Signature: Date (if applicable) CC: Mohsen Goncalves; Tracy Jones DO Signed BEDSIDE GLUCOSE Collected: 03/01/2018 Status: F Source: GISSEL 4:10 PM [facility] REPOSITORY TYPE CODE TESTS RESULT OUT OF REFERENCE UNITS RANGE LAB L501.080 70-110 mg/dL High BEDSIDE GLU 264 Result Comment: MANAGEMENT OF PATIENT CARE PER NURSING PROTOCOL Performed By: #### L501.080 #### [facility] Point of Care [address] [place] [address] Observed: 03/01/2018 Status: F Source: GISSEL CULTURE, BLOOD (WB) 3:44 PM [facility] REPOSITORY BC No growth in 5 days. Performed By: #### M200.1000 #### [facility] [address] [place] [address], [address] Observed: 03/01/2018 Status: F Source: GISSEL CULTURE, BLOOD (WB) 3:39 PM [facility] REPOSITORY GRAM STAIN: GRAM POSITIVE COCCI CALLED TO LEANN HARDY 03/02/18 1722 BY CPOPIEL Possible skin contamination, further Identification and sensitivity will be performed only by physician's request. ORGANISM 1: Coag Negative Staph Amount Growth Growth Performed By: #### M200.1000, M100.636 #### [facility] [address] [place], [place] [address], [address] Observed: 03/01/2018 Status: F Source: GISSEL GPC ID 3:39 PM [facility] REPOSITORY GPC ID Staphylococcus sp. Coagulase - Negative Staphylococcus sp. Enterococcus sp. Not Detected Streptococcus spp. Not Detected Listeria spp Not Detected Russell/vanB Not Detected mecA Not Detected NAAT METHOD Testing was performed using nucleic acid amplification ORGANISM 1: Coag Negative Staph Performed By: #### M200.1000, M100.636 #### [facility] [address] [place] [address]. [place], [address] EMERGENCY DEPARTMENT Observed: 03/01/2018 Status: F Source: GISSEL SUMMARY 3:32 PM [facility] Medical Records Department [address] [place] [address] Emergency Department Summary 03/01/18 1527 MR#: [id number] Acct: [id number] Name: JIMENEZ WYNN Rep #: [id number] : 1935 82 From: Jeremi Rosales DO PCP: Tracy Jones DO Status: REG ER - ER [...] office showed SVT. Patient is at a [facility] and presents with daughter who gives some [...] failure Hyperkalemia] This note was generated with [employer] dictation software. It may contain incorrect words, spelling, and punctuation that were not noted in review of the chart prior to signing ED Disposition - Plan for ED Patient: Chief Complaint: Palpitations Referrals: Tracy Jones, [Primary Care Provider] - What to do if you have Problems For any increased pain, shortness of breath, bleeding, nausea or vomiting, chest pain, or any unexpected problems, contact your Primary Care Provider. Call [facility] ([phone]) or report to the closest Emergency Room. Call 911 if necessary. 03/01/18 1532 <Electronically signed by Jeremi Rosales DO> Date Jeremi Rosales DO Cosigner Signature (If Indicated): Date CC: Tracy Jones DO CARDIOLOGY VISIT Observed: 03/01/2018 Status: F Source: GISSEL REPORT 2:09 PM [facility] REPOSITORY [facility] [address] [place] [place] [address] OFFICE VISIT Date of Service: 03/01/18 MR#: [id number] Acct: [id number] Name: JIMENEZ WYNN Rep #: [id number] : 1935 Provider: Charly Ross MD Age/Sex: 82/F [place] [facility] [place] Status: Signed HPI HPI Details: [...] (valve) insufficiency (Chronic) Atherosclerotic heart disease of [place] coronary artery without angina pectoris (Chronic) Hypothyroidism [...] Supplemental Info Her most recent echocardiogram from [facility] was on 08/28/2016. The results are as noted below. Interpretation Summary Mild segmental systolic dysfunction (see wail motion) The estimated ejection fraction is 45 %. The left atrium is mildly enlarged. Mild (1+) eccentric mitral Valve insufficiency. Trivial tricuspid valve insufficiency. Her previous stress test at [facility] was on 07/20/2007. At that point in time she had no significant fixed defects to suggest infarct and no reversible defects to suggest ischemia. He had a diagnostic cardiac catheterization performed at [facility] on 09/13/2012. At that point [...] breath/dyspnea. She will be referred to the [facility] emergency department for further evaluation and care. [...] cardiomyopathy as deemed appropriate. 3. Atherosclerosis of [place] coronary artery of [place] heart without angina pectoris I25.10 Mild Plan [...] tachycardia I47.1 Takotsubo cardiomyopathy I51.81 Atherosclerosis of [place] coronary artery of [place] heart without angina pectoris I25.10 [place] vs. transplanted heart: [place] heart Mitral valve insufficiency, unspecified etiology I34.0 [...] tachycardia I47.1 Takotsubo cardiomyopathy I51.81 Atherosclerosis of [place] coronary artery of [place] heart without angina pectoris I25.10 [place] vs. transplanted heart: [place] heart Mitral valve insufficiency, unspecified etiology I34.0 [...] Cosigner Signature: Date (if applicable) CC: Tracy Benja PERKINS CHEST 1 VIEW Observed: 03/01/2018 Status: F Source: GISSEL (PORTABLE) 2:09 PM [facility] REPOSITORY [facility] Imaging Services [address] [place] [address] Chest 1 View (Portable) MR#: [id number] Acct: [id number] Name: JIMENEZ WYNN Rep #: [id number] : 1935 F 82 From: Lou Lim MD PCP: Tracy Jones DO Status: PRE ER Study: Chest 1 View (Portable) Date of Exam: 03/01/18 Exam# [id number] Ordering Dr: Jeremi Rosales DO STUDY: X-RAY [...] CC: Tracy Jones DO; Jeremi Rosales DO Fleet Maintenance Manager: Signed CHEST 1 VIEW Observed: 03/01/2018 Status: F Source: GISSEL (PORTABLE) 2:09 PM [facility] REPOSITORY [facility] Imaging Services [address] [place] [address] Chest 1 View (Portable) MR#: [id number] Acct: [id number] Name: JIMENEZ WYNN Rep #: [id number] : 1935 F 82 From: Lou Lim MD PCP: Tracy Jones DO Status: DIS IN Study: Chest 1 View (Portable) Date of Exam: 03/01/18 Exam# [id number] Ordering Dr: Jeremi Rosales DO STUDY: X-RAY [...] CC: Tracy Jones DO; Jeremi Rosales DO Fleet Maintenance Manager: Signed CBC W/DIFF, AUTOMATED Collected: 03/01/2018 Status: F Source: GISSEL 2:07 PM [facility] REPOSITORY TYPE CODE TESTS RESULT OUT OF [...] Lymph 1.24 Performed By: #### L100.0100 #### [facility] [place], [address] BNP,B-TYPE NATRIURETIC Collected: 03/01/2018 Status: F Source: GISSEL PEPTIDE 2:07 PM [facility] REPOSITORY TYPE CODE TESTS RESULT OUT OF RANGE REFERENCE UNITS LAB L503.6620 0-100 pg/mL High B-TYPE 120.4 SIMA PEP Performed By: #### L503.6620 #### [facility] [place], [address] CBC W/DIFF, AUTOMATED Collected: 03/01/2018 Status: F Source: QUINTER 2:07 PM [facility] REPOSITORY TYPE CODE TESTS RESULT OUT OF [...] Lymph 1.24 Performed By: #### L100.0100 #### [facility] [address] [place], [address] BNP,B-TYPE NATRIURETIC Collected: 03/01/2018 Status: F Source: GISSEL PEPTIDE 2:07 PM [facility] REPOSITORY TYPE CODE TESTS RESULT OUT OF RANGE REFERENCE UNITS LAB L503.6620 0-100 pg/mL High B-TYPE 120.4 SIMA PEP Performed By: #### L503.6620 #### [facility] [address] [place], [address] BASIC METABOLIC Collected: 03/01/2018 Status: F Source: GISSEL PROFILE (BMP) 2:07 PM [facility] REPOSITORY Order Comment: 'TROP' Serial specimen #1, [...] 10 Performed By: #### L500.2500, L501.4010 #### [facility] [address] [place], [address] TROPONIN-I Collected: 03/01/2018 Status: F Source: QUINTER 2:07 PM [facility] REPOSITORY Order Comment: 'TROP' Serial specimen #1, #2, #3, or #4: 1 TYPE CODE TESTS RESULT OUT OF RANGE REFERENCE UNITS LAB L501.4010 <0.06 ng/mL Normal 0.02 TROPONIN-I Result Comment: TROPONIN-I EXPECTED VALUES <0.05 NEGATIVE 0.06 - 0.59 AT RISK OF TX > OR = 0.60 SUGGEST TX Performed By: #### L500.2500, L501.4010 #### [facility] [address] [place], [address] 12 LEAD EKG PERFORMED Observed: 03/01/2018 Status: F [place] [facility] [place] [facility] REPOS[facility] [address] [place] [address] 12 Lead EKG [place] [facility] [place]01[place]18 1320 MR#: [id number] Acct: [id number] Name: JIMENEZ WYNN Rep #: [id number] : 1935 82 From: Charly Ross MD Attending Dr: Charly Ross MD Status: REG AMB Ordering Dr: Charly Ross MD Date: 03/01/18 [place] [facility] [place]: F C Admitted: BMS/12 Lead EKG performed [place] [facility] [place] Report Interpretation Supraventricular Tachycardia Leftward axisPoor R wave progressionElectronically signed on 03/01/2018 at 13:45 by Charly Ross 03/01/18 1348 Date Charly Ross MD CC: Tracy Jones DO Date Dictated: 03/01/181319 Date Transcribed: 03/01/181319 Fleet Maintenance Manager: PM Signed BASIC METABOLIC Collected: 01/21/2018 Status: F Source: GISSEL PROFILE (BMP) 6:10 AM [facility] REPOSITORY Order Comment: 204 TYPE CODE TESTS [...] 8 GAP Performed By: #### L500.2500 #### [facility] [address] [place], [address] CBC W/DIFF, AUTOMATED Collected: 01/18/2018 Status: F Source: [place] 6:30 AM [facility] REPOSITORY Order Comment: ROOM 204 ZURITA TYPE [...] Lymph 1.57 Performed By: #### L100.0100 #### [facility] [address] [place], [place], [address] COMPREHENSIVE METABOLIC Collected: 01/18/2018 Status: F Source: [facility] 6:30 AM [facility] REPOSITORY Order Comment: ROOM 204 ZURITA TYPE [...] Performed By: #### L500.4050, L500.4100, L501.9520 #### [facility] [address] [place], [address] LIPID PROFILE Collected: 01/18/2018 Status: F Source: [place] 6:30 AM [facility] REPOSITORY Order Comment: ROOM 204 ZURITA TYPE [...] Performed By: #### L500.4050, L500.4100, L501.9520 #### [facility] [address] [place], [address] THYROID STIM HORMONE Collected: 01/18/2018 Status: F Source: GISSEL (TSH) 6:30 AM [facility] REPOSITORY Order Comment: ROOM 204 ZURITA TYPE CODE TESTS RESULT OUT OF RANGE REFERENCE UNITS LAB L501.9520 0.358-3.74 uIU/mL Normal TSH 1.77 Performed By: #### L500.4050, L500.4100, L501.9520 #### [facility] [address] [place], [address] HEMOGLOBIN A1C Collected: 01/18/2018 Status: F Source: [place] 6:30 AM [facility] REPOSITORY Order Comment: ROOM 204 ZURITA TYPE CODE TESTS RESULT OUT OF RANGE REFERENCE UNITS LAB L501.9985 4.2-6.3 % High HGB A1C 9.1 Performed By: #### L501.9985 #### [facility] [address] [place], [address] VITAMIN D,25 HYDROXY Collected: 01/18/2018 Status: F Source: [place] 6:30 AM [facility] REPOSITORY Order Comment: ROOM 204 ZURITA TYPE CODE TESTS RESULT OUT OF RANGE REFERENCE UNITS LAB L506.1000 29.95-100.01 ng/mL Normal Vitamin D 53.1 25-OH Result Comment: Vitamin D 25(OH) Status Range Deficiency <20 ng/mL (50nmol/L) Insuffciency 20 - 30 ng/mL (50 - 75 nmol/L) Sufficiency 30 - 100 ng/mL (75 - 250 nmol/L) Toxicity >100 ng/mL (>250 nmol/L) Performed By: #### L506.1000 #### [facility] [address] [place], [address] ALLERGIES ALLERGIES DATE TYPE / NAME / CODE REACTION SEVERITY SOURCE CODE 09/15/2018 Drug hydrocodone Chest tightness Unknown [place] Allergy/41 bitartrate/W26359 [facility]ly [facility] 5559180( 1555(RXNORM) [facility]) Repository 09/15/2018 Drug Penicillins/F0010 Rash Unknown [place] Allergy/41 68025(RXNORM) Formerly [facility] [id number]([facility]) Repository 09/15/2018 Drug Sulfa Unknown Unknown [place] Allergy/41 (Sulfonamide [facility]ly [facility] 7366706( Antibiotics)/F001 [facility]) 191358(RXNORM) Repository 09/15/2018 Drug Latex, Natural Rash Unknown [place] Allergy/41 Rubber/[id number] Formerly [facility] 3173061( (RXNORM) [facility]) Repository 09/15/2018 Drug codeine/[id number] HEART ATTACK SV [place] Allergy/41 0(RXNORM) [facility]ly [facility] 9072091([facility]) Repository 09/15/2018 Drug acetaminophen/F00 Chest tightness Unknown [place] Allergy/41 5933412(RXNORM) Formerly [facility] 7423687([facility]) Repository 09/15/2018 Drug adhesive Other Unknown [place] Allergy/41 tape/Y434741590(R [facility] 2792573( XNORM) [facility]) Repository 09/15/2018 Drug citalopram/N15948 Unknown Unknown [place] Allergy/41 5106(RXNORM) [facility] 7623739([facility]) Repository 09/15/2018 Drug levofloxacin/F006 Anaphylaxis SV [place] Allergy/41 722420(RXNORM) [facility] 5606293([facility]) Repository ENCOUNTERS ENCOUNTERS ADMIT/DISCHARGE ACCOUNT ADMITTING ENCOUNTER LOCATION SOURCE NUMBER CLASS 11/23/2018 [id number] Ambulatory Gissel Gissel 8 [facility] ing:OLS.LCA Repository R 11/22/2018 [id number] Ambulatory Malott Malott 1 [facility] ing:OLS.LCA Repository R 11/15/2018 [id number] Ambulatory Gissel [place] 8 [facility] ing:OLS.LCA Repository R 11/12/2018 [id number] Ambulatory Gissel Gissel 6 [facility] ing:WC Repository 11/08/2018 [id number] Ambulatory Malott Malott 2 [facility] ing:OLS.LCA Repository R 11/01/2018 [id number] Ambulatory Gissel Gissel 8 [facility] ing:OLS.LCA Repository R 10/27/2018/ [id number] Ambulatory Gissel Malott 8 1 [facility] ing:WC Repository 10/25/2018 [id number] Ambulatory Malott Malott 0 [facility] ing:OLS.LCA Repository R 10/18/2018 [id number] Ambulatory Gissel Gissel 0 [facility] ing:OLS.LCA Repository R 10/13/2018 [id number] Ambulatory BMSBuilding:W Mal[place] 8 [facility] Repository 10/11/2018 [id number] Ambulatory Malott Malott 1 [facility] C 10/04/2018 [id number] Ambulatory Gissel Malott 6 [facility] ing:OLS.LTC Repository C 09/27/2018 [id number] Ambulatory Mal[place] Gissel 3 [facility] ing:OLS.LTC Repository C 09/22/2018 [id number] Ambulatory Malott Malott 5 [facility] ing:OLS.LTC Repository C 09/15/2018/ [id number] [place], Inpatient Malott Gissel 8 4 Ghasem Encounter [facility] ing:PCURoom: Repository [id number]: 1 09/15/2018 [id number] [place], Ambulatory BMSBuilding:B Gissel 8 Ghasem [place] Repository 09/15/2018 [id number] [place], Ambulatory BMSBuilding:B Gissel 8 [place] [facility] [place] 09/15/2018 [id number] [place], Ambulatory BMSBuilding:B [place] 8 [place]hasem [facility] Repository 09/15/2018 [id number] [place]helf, Ambulatory BMSBuilding:B Gissel 1 [place]hasem [place] Repository 09/15/2018 [id number] [place]helf, Ambulatory BMSBuilding:B Malott 9 [place]hasem [place].[facility] Repository 09/15/2018 [id number] [place]helf, Ambulatory BMSBuilding:B [place] 6 [place].[facility] Repository 09/15/2018 [id number] [place]helf, Ambulatory BMSBuilding:B [place] 8 [place].[facility] Repository 09/15/2018 [id number] [place]helf, Ambulatory BMSBuilding:B [place] 9 [place].[facility] Repository 09/15/2018 [id number] [place]helf, Ambulatory BMSBuilding:B Mal[place] 0 Ghasem [facility] Repository 09/15/2018 [id number] Ashelf, Ambulatory BMSBuilding:B [place] 7 Ghasem [facility] Repository 09/15/2018 [id number] Ambulatory Mal[place] Gissel 1 [facility] ing:DONITA Repository S 09/13/2018 [id number] Ambulatory Gissel Gissel 1 [facility] Repository C 09/10/2018 [id number] Ambulatory Gissel Malott 4 [facility] ing:[facility] Repository C 09/08/2018/ [id number] Ambulatory Gissel Malott 8 0 [facility] ing: Repository 09/08/2018 [id number] Ambulatory BMSBuilding:W Gissel 4 [facility] Repository 09/08/2018 [id number] Ambulatory Malott Malott 4 [facility] ing:OLS.[facility] Repository C 09/06/2018 [id number] Ambulatory Malott Malott 9 [facility] ing:OLS.[facility] Repository C 09/03/2018 [id number] Ambulatory Malott Malott 3 [facility] ing:OLS.[facility] Repository C 08/31/2018 [id number] Ambulatory Malott Gissel 0 [facility] ing:OLS.[facility] Repository C 08/30/2018/ [id number] Ambulatory BMSBuilding:B [place] 8 2 [facility] Repository 08/30/2018 [id number] Ambulatory Gissel Gissel 8 [facility] ing:OLS.[facility] Repository C 08/28/2018 [id number] Ambulatory Gissel Malott 3 [facility] ing:OLS.[facility] Repository C 08/25/2018/ [id number] Ambulatory Malott Gissel 8 0 [facility] ing: Repository 08/25/2018 [id number] Ambulatory BMSBuilding:W [place] 8 [facility] Repository 08/24/2018 [id number] Ambulatory BMSBuilding:B Mal[place] 9 [facility] Repository 08/23/2018 [id number] Ambulatory Mal[place] Gissel 0 [facility] ing:OLS.[facility] Repository C 08/20/2018/ [id number] Ambulatory BMSBuilding:B Mal[place] 8 7 [facility] Repository 08/16/2018 [id number] Ambulatory Mal[place] Gissel 1 [facility] ing:OLS.[facility] Repository C 08/11/2018 [id number] Ambulatory Malott Gissel 5 [facility] ing:OLS.[facility] Repository C 08/09/2018 [id number] Ambulatory Gissel Malott 6 [facility] ing:OLS.[facility] Repository C 07/20/2018/ [id number] [place], [place] Inpatient [place] Gissel 8 3 Encounter [facility] ing:PCURoom: Repository [id number]: 1 07/20/2018 [id number] [place], [place] Ambulatory BMSBuilding:B [place] 9 [place].[facility] Repository 07/20/2018 [id number] [place], [place] Ambulatory BMSBuilding:B Gissel 7 [facility] Repository 07/20/2018 [id number] [place], [place] Ambulatory BMSBuilding:B [place] 7 MS.[facility] Repository 07/20/2018 [id number] [place], [place] Ambulatory BMSBuilding:B Gissel 4 [facility] Repository 07/20/2018 [id number] [place], [place] Ambulatory BMSBuilding:B Gissel 6 MS.[facility] Repository 07/20/2018 [id number] [place], [place] Ambulatory BMSBuilding:B Gissel 3 [facility] Repository 07/20/2018 [id number] [place], [place] Ambulatory BMSBuilding:B Malott 2 MS.[facility] Repository 07/20/2018 [id number] [place], [place] Ambulatory BMSBuilding:B Mal[place] 1 [facility] Repository 07/20/2018 [id number] [place], [place] Ambulatory BMSBuilding:B Malott 9 [facility] Repository 07/20/2018 [id number] [place], [place] Ambulatory BMSBuilding:B Malott 5 MS.[facility] Repository 07/20/2018 [id number] [place], [place] Ambulatory BMSBuilding:B Gissel 9 [facility] Repository 07/20/2018 [id number] [place], [place] Ambulatory BMSBuilding:B Mal[place] 2 [facility] Repository 07/20/2018 [id number] [place], [place] Ambulatory BMSBuilding:B [place] 3 MS.[facility] Repository 07/20/2018 [id number] [place], [place] Ambulatory BMSBuilding:B Mal[place] 3 MS.[facility] Repository 07/20/2018 [id number] [place], [place] Ambulatory BMSBuilding:B Malott 5 [facility] Repository 07/20/2018 [id number] [place], [place] Ambulatory BMSBuilding:B Gissel 6 MS.[facility] Repository 07/20/2018 [id number] [place], [place] Ambulatory BMSBuilding:B Malott 0 MS.CF.[facility] Repository 07/20/2018 [id number] [place], [place] Ambulatory BMSBuilding:B Gissel 1 [facility] Repository 07/20/2018 [id number] [place], [place] Ambulatory BMSBuilding:B Gissel 0 MS.CF.[facility] Repository 07/20/2018 [id number] [place], [place] Ambulatory BMSBuilding:B Gissel 7 [facility] Repository 07/20/2018 [id number] [place], [place] Ambulatory BMSBuilding:B Gissel 0 MS.CF.[facility] Repository 07/20/2018 [id number] [place], [place] Ambulatory BMSBuilding:B Malott 3 MS..[facility] Repository 07/20/2018 [id number] [place], [place] Ambulatory BMSBuilding:B Malott 8 [facility] Repository 07/20/2018 [id number] [place], [place] Ambulatory BMSBuilding:B Gissel 8 MS..[facility] Repository 07/20/2018 [id number] [place], [place] Ambulatory BMSBuilding:B Malott 3 MS..[facility] Repository 07/20/2018 [id number] [place], [place] Ambulatory BMSBuilding:B Gissel 7 MS..[facility] Repository 07/20/2018 [id number] [place], [place] Ambulatory BMSBuilding:B Malott 0 [facility] Repository 07/20/2018 [id number] [place], [place] Ambulatory BMSBuilding:B [place] 7 [facility] 07/20/2018 [id number] [place], [place] Ambulatory BMSBuilding:B Gissel 8 [facility] Repository 07/20/2018 [id number] [place], [place] Ambulatory BMSBuilding:B Gissel 1 MS.CF.[facility] Repository 07/20/2018 [id number] [place], [place] Ambulatory BMSBuilding:B Malott 0 [facility] Repository 07/20/2018 [id number] [place], [place] Ambulatory BMSBuilding:B Malott 3 MS.[facility] Repository 07/20/2018 [id number] [place], [place] Ambulatory BMSBuilding:B Gissel 8 [facility] Repository 07/20/2018 [id number] [place], [place] Ambulatory BMSBuilding:B Gissel 5 [facility] Repository 07/20/2018 [id number] [place], [place] Ambulatory BMSBuilding:B Gissel 5 MS.[facility] Repository 07/20/2018 [id number] [place], [place] Ambulatory BMSBuilding:B Gissel 2 [facility] Repository 07/20/2018 [id number] [place], [place] Ambulatory BMSBuilding:B Gissel 4 MS..[facility] Repository 07/20/2018 [id number] [place], [place] Ambulatory BMSBuilding:B Gissel 4 [facility] Repository 07/20/2018 [id number] [place], [place] Ambulatory BMSBuilding:B Gissel 7 MS..[facility] Repository 07/20/2018 [id number] [place], [place] Ambulatory BMSBuilding:B Malott 4 [facility] Repository 07/20/2018 [id number] [place], [place] Ambulatory BMSBuilding:B Malott 8 MS.[facility] Repository 07/20/2018 [id number] [place], [place] Ambulatory BMSBuilding:B Gissel 9 [facility] Repository 07/20/2018 [id number] [place], [place] Ambulatory BMSBuilding:B Malott 9 MS.[facility] Repository 07/20/2018 [id number] [place], [place] Ambulatory BMSBuilding:B Gissel 0 [facility] Repository 07/20/2018 [id number] [place], [place] Ambulatory BMSBuilding:B Malott 1 [facility] Repository 07/20/2018/ [id number] Ambulatory BMSBuilding:W Gissel 8 6 [facility] Repository 07/20/2018/ [id number] Ambulatory BMSBuilding:W Mal[place] 8 6 [facility] Repository 07/07/2018 [id number] Ambulatory Gissel Gissel 0 [facility] ing:OLS.[facility]BE Repository N 06/17/2018 [id number] Ambulatory BMSBuilding:B Gissel 0 [facility] Repository 06/09/2018 [id number] Ambulatory Mal[place] Gissel 1 [facility] ing:OLS.[facility] Repository N 06/04/2018/ [id number] Emergency Gissel Gissel 8 3 [facility] ing:ED Repository 05/26/2018/ [id number] Ambulatory BMSBuilding:B Malott 8 4 MS.[facility] Repository 05/09/2018/ [id number] Jone Olivares Inpatient Gissel Malott 8 6 Encounter [facility] ing:PCURoom: Repository [id number]: 1 05/09/2018 [id number] Jone Olivares Ambulatory BMSBuilding:B Malott 0 [facility] Repository 05/09/2018/ [id number] Ambulatory BMSBuilding:W Gissel 8 4 [facility] Repository 05/08/2018 [id number] Jone Olivares Ambulatory BMSBuilding:B Malott 9 [facility] Repository 05/08/2018 [id number] Elise Jone Ambulatory BMSBuilding:W Gissel 1 [facility] Repository 04/14/2018 [id number] Ambulatory Mal[place] Gissel 2 [facility] N 03/01/2018/ [id number] [place], Inpatient Malott Malott 8 9 Ghasem Encounter [facility] ing:PCURoom: Repository [id number]: 1 03/01/2018 [id number] [place], Ambulatory BMSBuilding:B Malott 9 Ghasem [place].[facility] Repository 03/01/2018 [id number] [place], Ambulatory BMSBuilding:B Malott 2 Ghasem MS.[facility] Repository 03/01/2018 [id number] [place]helf, Ambulatory BMSBuilding:B Gissel 2 Ghasem MS.[facility] Repository 03/01/2018 [id number] [place], Ambulatory BMSBuilding:B Malott 7 Ghasem [place].[facility] Repository 03/01/2018/ [id number] Ambulatory BMSBuilding:W Malott 8 1 [facility] Repository 03/01/2018/ [id number] Ambulatory BMSBuilding:W Gissel 8 6 [facility] Repository 03/01/2018 [id number] Inpatient Malott Malott 5 Encounter [facility] ing:ED Repository 03/01/2018/ [id number] Ambulatory BMSBuilding:B Malott 8 7 [facility] Repository 01/21/2018 [id number] Ambulatory Malott Malott 5 [facility] ing:OLS.LBE Repository N 01/18/2018 [id number] Ambulatory Gissel Malott 9 [facility] ing:OLS.LBE Repository N 01/15/2018 [id number] Ambulatory BMSBuilding:B Gissel 8 MS.[facility] Repository PAYERS PAYERS ENCOUNTER GUARANTOR PAYER SUBSCRIBER SOURCE 11/23/2018 N [place] Primary NOT GIVENUNK [place] Insurance:SELF PAY [place] [id number] [facility] Number: Effective [place] Date:2018-11-23 [id number]: () 11/22/2018 N ELDOR[place] Primary NOT GIVENUNK [place] Insurance:SELF PAY [facility] HEALTHY [address] Number: Effective [place] Date:2018-11-22 15006Yoq: () 11/15/2018 N E[place] Primary NOT GIVENUNK [place] Insurance:SELF PAY [address] Number: Effective [place] Date:2018-11-15 [phone]: (HP) 11/12/2018 N [place] Primary NOT GIVENUNK [place] Insurance:SELF PAY [facility] HEALTHY [id number] [facility] Number: Effective Repository ADRIANA wa Date:2018-11-02 [phone]: (HP) 11/08/2018 N [place] Primary N ELDORA [place] Insurance:MEDICARE STARLINDOB: Community HEALTHY [id number] PART A [facility] [id number] Number: [place] [id number]: (330) Date:2018-11-08 [phone] () 11/08/2018 Secondary NOT GIVENUNK [place] Insurance:SELF PAY [facility] Number: Effective Repository Date:2018-11-08 11/01/2018 N ELDOR[place] Primary N ELDORA [place] Insurance:MEDICARE STARLINDOB: Community HEALTHY [id number] PART A [facility] [id number] [facility] Number: [place] [id number]: (330) Date:2018-11-01 [phone] () 11/01/2018 Secondary NOT GIVENUNK Gissel Insurance:SELF PAY [facility] Number: Effective Repository Date:2018-11-01 10/27/2018 N ELDOR[place] Primary N ELDORA [place] Insurance:MEDICARE STARLINDOB: Community HEALTHY [id number] PART A [facility] [id number] Memorial Hospital Number: [place] [id number]: (330) Date:2018-08-17 [phone] () 10/27/2018 Secondary NOT GIVENUNK [place] Insurance:SELF PAY [facility] Number: Effective Repository Date:2018-10-02 10/25/2018 N ELD[place] Primary NOT GIVENUNK [place] Insurance:SELF PAY [address] Number: Effective Repository [facility] Date:2018-10-25 [phone]: (HP) 10/18/2018 N ELDOR[place] Primary N ELDORA [place] Insurance:MEDICARE STARLINDOB: Community HEALTHY [id number] PART A [facility] [id number] Memorial Hospital Number: [place], [place] [id number]: 330) Date:2018-10-18 [phone] (HP) 10/18/2018 Secondary N ELDORA Gissel Insurance:RURAL STARLINDOB: Community [employer]ER [employer]EFIT [id number] Number: Repository [id number] Date:[id number] CARA GREGOR LAGOS 43330QM: 10/18/2018 Tertiary NOT GIVENUNK Gissel Insurance:SELF PAY [facility] Number: Effective Repository Date:2018-10-18 10/13/2018 N ELDOR[place] Primary N ELDORA [place] Insurance:MEDICARE STARLINDOB: Community HEALTHY [id number] PART A [facility] [id number] Memorial Hospital Number: [place]ository [place] [id number] [address]Mon: 330) Date:2018-08-17 [phone] () 10/13/2018 Secondary NOT GIVENUNK Malott Insurance:SELF PAY [facility] Number: Effective Repository Date:2018-10-13 10/11/2018 N ELD[place] Primary NOT GIVENUNK [place] Insurance:SELF PAY Formerly [facility] HEALTHY [id number] [facility] Number: [place] Date:2018-10-11 [phone]: (HP) 10/04/2018 N [place] Primary NOT GIVENUNK [place] Insurance:SELF PAY Formerly [facility] HEALTHY [id number] [facility] [place]: [place] Date:2018-10-04 70944Vll: (HP) 09/27/2018 N [place] Primary NOT GIVENUNK [place] Insurance:SELF PAY Formerly [facility] HEALTHY [address] Number: Effective [place] Date:2018-09-27 52876Hrn: (HP) 09/22/2018 N [place] Primary NOT GIVENUNK [place] Insurance:SELF PAY Formerly [facility] HEALTHY [id number] [facility] [place] Date:2018-09-22 00958Wbg: (HP) 09/15/2018 N ELDOR[place] Primary N ELDORA [place]ott [place] Insurance:MEDICARE [place]: Community HEALTHY [id number] PART A [facility] [id number] [facility] Number: Repository [place] [id number] [address]Erd: (330) Date:2018-09-15 [phone] (HP) 09/15/2018 Secondary N ELDORA Malott Insurance:AETNAPolic [place]: Community y Number: Effective [id number] Hospital Date:6303-10-09TE Repository [address] [address]UG: 09/15/2018 Tertiary N ELDORA Gissel Insurance:RURAL STAR[place]INDOB: Community [employer] [id number] Number: Repository [id number] Date:6885-26-51VI [address] [address]PB: 09/15/2018 Tertiary NOT GIVENUNK Malott Insurance:SELF PAY [facility]: Effective Repository Date:2018-09-15 09/15/2018 ELDORA Primary ELDORA [place]ott [place] Insurance[place]MEDICARE [place]OB: Community HEALTHY [id number] PART A [facility] [id number] Memorial Hospital Number: Repository [place] [id number]: (330) Date:2018-09-15 [phone] (HP) 09/15/2018 Secondary ELDORA Gissel Insurance:RURAL [place]OB: Community [employer]ER [employer] [id number] Hospital PLANPolicy Number: Repository [id number] Date:9962-02-66AB [address] [address]YR: 09/15/2018 Tertiary NOT GIVENUNK Gissel Insurance:SELF PAY [facility] Number: Effective Repository Date:2018-09-15 09/15/2018 ELDORA Primary ELDORA Gissel [place] Insurance[place]MEDICARE [place]OB: Community HEALTHY [id number] PART A [facility] [id number] Memorial Hospital Number: Repository [place] [id number]: 330) Date:2018-09-15 [phone] () 09/15/2018 Secondary ELDORA Malott Insurance:RURAL STAR[place]OB: Community [employer]ER [employer]EF[employer] [id number] Number: Repository [id number] Date:6034-50-35GS [facility] [address] [address]CA: 09/15/2018 Tertiary NOT GIVENUNK Gissel Insurance:SELF PAY [facility] Number: Effective Repository Date:2018-09-15 09/15/2018 N ELDOR[place] Primary N ELD[place] Gissel [place] Insurance:MEDICARE [place]: Community HEALTHY [id number] PART A [facility] [id number] Memorial Hospital Number: Repository [place] [id number] [address]Xhh: 330) Date:2018-09-159728 () 09/15/2018 Secondary N ELDORA Malott Insurance:RURAL [place]AR[place]OB: Community [employer]ER [employer]EFIT [id number] [facility] Number: Repository [id number] Date:9114-88-81TH [address] [address]BB: 09/15/2018 Tertiary NOT GIVENUNK Gissel Insurance:SELF PAY [facility] Number: Effective Repository Date:2018-09-15 09/15/2018 N ELDOR[place] Primary N ELDORA Malott [place] Insurance:MEDICARE [place]: Community HEALTHY [id number] PART A [facility] [id number] Memorial Hospital Number: Repository [place] [id number]: (330) Date:2018-09-1592 () 09/15/2018 Secondary N ELDORA Gissel Insurance:RURAL [place]: Community [employer]IT [id number] Hospital PLANPolicy Number: Repository [id number] Date:2383-43-33[address] [place] [address]TZ: 09/15/2018 Tertiary NOT GIVENUNK Gissel Insurance:SELF PAY Community [facility] Number: Effective Repository Date:2018-09-15 09/15/2018 N ELDOR[place] Primary N ELDOR[place] Gissel [place] Insurance[place]MEDICARE [place]: Community HEALTHY [id number] PART A [facility] [id number] Memorial Hospital Number: Repository [place] [id number]: (330) Date:2018-09-1570 () 09/15/2018 Secondary N ELDORA Malott Insurance:RURAL [place]: Community [employer] [id number] Hospital PLANPolicy Number: Repository [id number] Date:3830-08-50YK [address] [place] [address]FT: 09/15/2018 Tertiary NOT GIVENUNK Malott Insurance:SELF PAY [facility] Number: Effective Repository Date:2018-09-15 09/15/2018 N ELDOR[place] Primary N ELDOR[place] Gissel [place] Insurance:MEDICARE [place]: Community HEALTHY [id number] PART A [facility] [id number] Memorial Hospital Number: Repository [place] [id number] [address]Kjx: (330) Date:2018-09-157899 () 09/15/2018 Secondary N ELDORA Gissel Insurance:RURAL [place]: Community [employer] [id number] Hospital PLANPolicy Number: Repository [id number] Date:8726-90-39MO [address] [place] [address]XO: 09/15/2018 Tertiary NOT GIVENUNK Malott Insurance:SELF PAY Community [facility] Number: Effective Repository Date:2018-09-15 09/15/2018 N ELDOR[place] Primary N ELDOR[place] Gissel [place] Insurance:MEDICARE [place]: Community HEALTHY [id number] PART A [facility] [id number] Memorial Hospital Number: Repository [place] [id number]: 330) Date:2018-09-1562 () 09/15/2018 Secondary N ELDORA Malott Insurance:RURAL [place]OB: Community [employer]IT [id number] Hospital PLANPolicy Number: Repository [id number] Date:9214-51-84LG [facility] [address], [place] [address]WX: 09/15/2018 Tertiary NOT GIVENUNK Malott Insurance:SELF PAY [facility] Number: Effective Repository Date:2018-09-15 09/15/2018 N ELDOR[place] Primary N ELDORA Gissel [place] Insurance:MEDICARE ST[place]OB: Community HEALTHY [id number] PART A [facility] [id number] Memorial Hospital Number: Repository [place] [id number]: (032) Date:2018-09-154256 () 09/15/2018 Secondary N ELDORA Gissel Insurance:RURAL [place]OB: Community [employer] [id number] Hospital PLANPolicy Number: Repository [id number] Date:0567-60-17GQ [address] [place] [address]AJ: 09/15/2018 Tertiary NOT GIVENUNK Gissel Insurance:SELF PAY Community [facility] Number: Effective Repository Date:2018-09-15 09/15/2018 N ELDOR[place] Primary N ELDORA Malott [place] Insurance:MEDICARE [place]AR[place]OB: Community HEALTHY [id number] PART A [facility] [id number] Memorial Hospital Number: Repository [place] [id number] [address]Yki: (553) Date:2018-09-15 [phone] (HP) 09/15/2018 Secondary N ELDORA Gissel Insurance:RURAL [place]OB: Community CARRIER BENEFIT [id number] [facility]irie [facility] Number: Repository [id number] Date:0415-25-25JF [address] [place] [address]WT: 09/15/2018 Tertiary NOT GIVENUNK Gissel Insurance:SELF PAY [facility] Number: Effective Repository Date:2018-09-15 09/15/2018 N ELDOR[place] Primary N ELDORA Gissel [place] Insurance:MEDICARE STARLINDOB: Formerly [facility] HEALTHY [id number] PART A BPolicy [id number] Memorial Hospital Number: Repository [place], [place] [id number] [address]Pwm: (062) Date:2018-09-15 [phone] () 09/15/2018 Secondary N ELDORA Malott Insurance:RURAL [place]OB: Community CARRIER BENEFIT [id number] [facility] Number: Repository [id number] Date:1200-83-86MP [address] [place] [address]IG: 09/15/2018 Tertiary NOT GIVENUNK Malott Insurance:SELF PAY [facility] Number: Effective Repository Date:2018-09-15 09/15/2018 N ELDOR[place] Primary NOT GIVENUNK Gissel [place] Insurance:SELF PAY Formerly [facility] HEALTHY [id number] [facility] Number: Effective [place] Date:2018-09-15 [phone]: (HP) 09/13/2018 N ELDORA Primary NOT GIVENUNK Gissel [place] Insurance:SELF PAY Formerly [facility] HEALTHY [id number] [place] [address] Number: Effective Repository [place]DWJHOANK[place]LEYsan [place] Date:2018-09-13 97517Qyb: (HP) 09/10/2018 N ELDORA Primary NOT GIVENUNK Malott [place] Insurance:SELF PAY Formerly [facility] HEALTHY [id number] [place] [address] Number: Effective [place]ository [place] Date:2018-09-10 10122Jnq: () 09/08/2018 ELDORA Primary ELDORA Gissel [place] Insurance:MEDICARE STARLINDOB: Community HEALTHY [id number] PART A [facility] [id number] Memorial Hospital Number: Repository [place] [id number]: 330) Date:2018-08-17 [phone] () 09/08/2018 Secondary ELDORA Gissel Insurance:RURAL STARL[place]OB: Community [employer]RIER B[employer]EFIT [id number] Hospital PLANPolicy Number: Repository [id number] Date:6128-98-60SI [address] [place] [address]ES: 09/08/2018 Tertiary NOT GIVENUNK Malott Insurance:SELF PAY [facility] Number: Effective Repository Date:2018-09-02 09/08/2018 N ELDORA Primary N ELDORA Malott [place] Insurance:MEDICARE STAR[place]OB: Community HEALTHY [id number] PART A [facility] [id number] Memorial Hospital Number: [place] [id number] [address]Aab: (148) Date:2018-08-17 [phone] () 09/08/2018 Secondary N ELDORA Gissel Insurance:RURAL STARL[place]OB: Community [employer]RIER [employer]EFIT [id number] Hospital PLANPolicy Number: Repository [id number] Date:9826-44-17YF [address] [place] [address]QR: 09/08/2018 Tertiary NOT GIVENUNK Gissel Insurance:SELF PAY [facility] Number: Effective Repository Date:2018-09-08 09/08/2018 N ELDORA Primary NOT GIVENUNK Malott [place] Insurance:SELF PAY Formerly [facility] HEALTHY [id number] [facility] Number: Effective Repository [place] Date:2018-09-08 07676Lco: () 09/06/2018 N ELDOR[place] Primary NOT GIVENUNK [place]issel [place] Insurance:SELF PAY Community HEALTHY [id number] [facility] Number: Effective Rep[place] Date:2018-09-06 03605Ypn: (HP) 09/03/2018 N ELDORA Primary NOT GIVENUNK Gissel [place] Insurance:SELF PAY Formerly [facility] HEALTHY [id number] [facility] Number: Effective Repository [place] Date:2018-09-03 52266Olb: (HP) 08/31/2018 ELDOR[place] Primary NOT GIVENUNK Malott [place] Insurance:SELF PAY Formerly [facility] HEALTHY [id number] [facility] Number: Effective Repository [place] Date:2018-08-31 27676Vez: (HP) 08/30/2018 ELDOR[place] Primary ELDORA Malott [place] Insurance:MEDICARE STARLINDOB: Formerly [facility] HEALTHY [id number] PART A BPolicy [id number] Memorial Hospital Number: Repository [place], [place] [id number] [address]Njr: (560) Date:2018-08-20 [phone] (HP) 08/30/2018 Secondary ELDORA Gissel Insurance:RURAL STAR[place]OB: Community CARRIER BENEFIT [id number] [facility]irie [facility] Number: Repository [id number] Date:4852-11-79[address] [place] [address]SZ: 08/30/2018 Tertiary NOT GIVENUNK Gissel Insurance:SELF PAY [facility] Number: Effective Repository Date:2018-08-20 08/30/2018 ELDORA Primary NOT GIVENUNK Malott [place] Insurance:SELF PAY [facility] HEALTHY [id number] [facility] Number: Effective [place] Date:2018-08-30 37262Xid: (HP) 08/28/2018 ELDORA Primary NOT GIVENUNK Malott [place] Insurance:SELF PAY Formerly [facility] HEALTHY [id number] [facility] Number: Effective [facility] [place] Date:2018-08-28 65484Wrx: () 08/25/2018 ELDORA Primary ELDORA Malott [place] Insurance:MEDICARE STARLINDOB: Community HEALTHY [id number] PART A [facility] [id number] Memorial Hospital Number: Repository [place] [id number]: (330) Date:2018-08-1700 () 08/25/2018 Secondary ELDORA Malott Insurance:RURAL STARLINDOB: Community CARRIER BENEFIT [id number] [facility]irie [facility] Number: Repository [id number] Date:8702-07-97OI [facility] [address] [address]UB: 08/25/2018 Tertiary NOT GIVENUNK Gissel Insurance:SELF PAY [facility] Number: Effective Repository Date:2018-08-17 08/25/2018 ELDORA Primary ELDORA Malott [place] Insurance:MEDICARE STARLINDOB: Community HEALTHY [id number] PART A [facility] [id number] Memorial Hospital Number: Repository [place] [id number]: (330) Date:2018-08-17 [phone] () 08/25/2018 Secondary ELDORA Malott Insurance:RURAL STARLINDOB: Community CARRIER BENEFIT [id number] Prairie [facility] Number: Repository [id number] Date:9608-72-56VI [facility] [address] [address]GJ: 08/25/2018 Tertiary NOT GIVENUNK Gissel Insurance:SELF PAY [facility] Number: Effective Repository Date:2018-08-25 08/24/2018 ELDORA Primary ELDORA [place]issel [place] Insurance:MEDICARE STARLINDOB: Community HEALTHY [id number] PART A [facility] [id number] Memorial Hospital Number: Repository [place] [id number]: (330) Date:2018-08-10 [phone] () 08/24/2018 Secondary ELDORA Malott Insurance:RURAL STARLINDOB: Community CARRIER BENEFIT [id number] [facility]irie [facility] Number: Repository [id number] Date:0459-78-02OU [address] [address]BJ: 08/24/2018 Tertiary NOT GIVENUNK Gissel Insurance:SELF PAY [facility] Number: Effective Repository Date:2018-08-20 08/23/2018 ELDORA Primary NOT GIVENUNK [place]issel [place] Insurance:SELF PAY [facility]ly [facility] HEALTHY [id number] [facility] Number: Effective [facility] [place] [place] Date:2018-08-23 38225Dfw: (HP) 08/20/2018 ELDORA Primary ELDORA Gissel [place] Insurance:MEDICARE STARLINDOB: Formerly [facility] HEALTHY [id number] PART A BPolicy [id number] Memorial Hospital Number: Repository [place], [place] [id number] [address]Jgr: (302) Date:2018-08-10 [phone] (HP) 08/20/2018 Secondary ELDORA Gissel Insurance:RURAL STARLINDOB: Community CARRIER BENEFIT [id number] Prairie [facility] Number: Repository [id number] Date:1130-97-54JJ [address] [place] [address]LS: 08/20/2018 Tertiary NOT GIVENUNK Malott Insurance:SELF PAY [facility] Number: Effective Repository Date:2018-08-10 08/16/2018 ELDORA Primary NOT GIVENUNK Malott [place] Insurance:SELF PAY [facility]ly [facility] HEALTHY [id number] [facility] Number: Effective [place] Date:2018-08-16 03358Pso: (HP) 08/11/2018 ELDORA Primary NOT GIVENUNK Mal[place] Insurance:SELF PAY [facility]ly [facility] HEALTHY [id number] [facility] Number: Effective Repository [place] Date:2018-08-11 53921Xci: (HP) 08/09/2018 ELDORA Primary NOT GIVENUNK [place]ott [place] Insurance:SELF PAY Community HEALTHY [id number] [facility] Number: Effective Repository [place] Date:2018-08-09 31926Cfi: () 07/20/2018 ELDORA Primary ELDORA Gissel [place] Insurance:MEDICARE STARLINDOB: Community HEALTHY [id number] PART A [facility] [id number] Memorial Hospital Number: Repository [place] [id number] [address]Mvn: (330) Date:2018-07-20 [phone] (HP) 07/20/2018 Secondary ELDORA Gissel Insurance:RURAL STARLINDOB: Community CARRIER BENEFIT [id number] Prairie [facility] Number: Repository [id number] Date:4392-62-77FT [address] [place] [address]TT: 07/20/2018 Tertiary NOT GIVENUNK Gissel Insurance:SELF PAY [facility] Number: Effective Repository Date:2018-07-20 07/20/2018 ELDORA Primary ELDORA [place]issel [place] Insurance:MEDICARE STARLINDOB: Community HEALTHY [id number] PART A [facility] [id number] Memorial Hospital Number: Repository [place] [id number] [address]Fqy: (330) Date:2018-07-20 [phone] () 07/20/2018 Secondary ELDORA Malott Insurance:RURAL STARLINDOB: Community [employer]ER [employer]EF[employer] [id number] Number: Repository [id number] Date:7993-88-70TY [address] [place] [address]AY: 07/20/2018 Tertiary NOT GIVENUNK Malott Insurance:SELF PAY [facility] Number: Effective Repository Date:2018-07-20 07/20/2018 ELDORA Primary [place]LDORA [place]issel [place] Insurance:MEDICARE STARLINDOB: Community HEALTHY [id number] PART A [facility] [id number] Memorial Hospital Number: Repository [place] [id number] [address]Hut: (330) Date:2018-07-20 () 07/20/2018 Secondary ELDORA Gissel Insurance:RURAL STARLINDOB: Community CARRIER BENEFIT [id number] Number: Repository [id number] Date:2696-66-12EI [address] [address]VK: 07/20/2018 Tertiary NOT GIVENUNK Malott Insurance:SELF PAY [facility] Number: Effective Repository Date:2018-07-20 07/20/2018 ELDORA Primary ELDORA [place]issel [place] Insurance:MEDICARE STARLINDOB: Community HEALTHY [id number] PART A [facility] [id number] Number: Repository [place]JHOANKEELEYsan [place], [place] [id number] [address]Dyb: (330) Date:2018-07-20 () 07/20/2018 Secondary ELDORA Gissel Insurance:RURAL STARLINDOB: Community CARRIER BENEFIT [id number] Number: Repository [id number] Date:4320-79-13JO [address] [place] [address]KD: 07/20/2018 Tertiary NOT GIVENUNK Malott Insurance:SELF PAY [facility] Number: Effective Repository Date:2018-07-20 07/20/2018 ELDORA Primary ELDORA [place] Insurance:MEDICARE STARLINDOB: Community HEALTHY [id number] PART A [facility] [id number] Number: Repository [place] [id number] [address]Ide: (330) Date:2018-07-20 [phone] () 07/20/2018 Secondary ELDORA Malott Insurance:RURAL STARLINDOB: Community CARRIER BENEFIT [id number] Number: Repository [id number] Date:7988-30-76VB [address] [place] [address]QD: 07/20/2018 Tertiary NOT GIVENUNK Gissel Insurance:SELF PAY [facility] Number: Effective Repository Date:2018-07-20 07/20/2018 ELDORA Primary ELDORA [place]ott [place] Insurance:MEDICARE STARLINDOB: Community HEALTHY [id number] PART A [address] Number: Repository RDGIS[place] [id number] [phone]: (330) Date:2018-07-20 () 07/20/2018 Secondary ELDORA Gissel Insurance:RURAL STARLINDOB: Community CARRIER B[employer]EFIT [address] [place] [address] Number: Repository [id number] Date:1373-44-02CP [address] [place] [address]NO: 07/20/2018 Tertiary NOT GIVENUNK Malott Insurance:SELF PAY [facility] Number: Effective Repository Date:2018-07-20 07/20/2018 ELDORA Primary ELDORA [place] Insurance:MEDICARE STARLINDOB: Community HEALTHY [id number] PART A [facility] [id number] Number: Repository [place]san [place] [id number] [address]Hpj: (330) Date:2018-07-20 () 07/20/2018 Secondary ELDORA Malott Insurance:RURAL STARLINDOB: Community CARRIER BENEFIT [address] [place] [address] Number: Repository [id number] Date:9924-70-14MI [address] [place] [address]RE: 07/20/2018 Tertiary NOT GIVENUNK Gissel Insurance:SELF PAY [facility] Number: Effective Repository Date:2018-07-20 07/20/2018 ELDORA Primary [place]A [place] Insurance:MEDICARE STARLINDOB: Community HEALTHY [id number] PART A [address] Number: Repository [place] [id number] [address]Mgl: (330) Date:2018-07-20 () 07/20/2018 Secondary ELDORA Gissel Insurance:RURAL STARLINDOB: Community CARRIER BENEFIT [id number] Hospital PLANPolicy Number: Repository [id number] Date:8758-09-85QL [address] [place] [address]HQ: 07/20/2018 Tertiary NOT GIVENUNK Malott Insurance:SELF PAY [facility] Number: Effective Repository Date:2018-07-20 07/20/2018 ELDORA Primary [place]A [place] Insurance:MEDICARE STARLINDOB: Community HEALTHY [id number] PART A [facility] [id number] Memorial Hospital Number: Repository RDM[place] [id number] [address]Irs: (867) Date:2018-07-2086 () 07/20/2018 Secondary ELDORA Malott Insurance:RURAL STARLINDOB: Community CARRIER BENEFIT [id number] PLANPolicy Number: Repository [id number] Date:6558-01-65IE [address] [address]LJ: 07/20/2018 Tertiary NOT GIVENUNK Gissel Insurance:SELF PAY [facility] Number: Effective Repository Date:2018-07-20 07/20/2018 ELDORA Primary [place]LD[place]A [place] Insurance:MEDICARE STARLINDOB: Community HEALTHY [id number] PART A [facility] [id number] Memorial Hospital Number: Repository [place] [id number]: (330) Date:2018-07-20 () 07/20/2018 Secondary ELDORA Gissel Insurance:RURAL STARLINDOB: Community CARRIER BENEFIT [id number] PLANPolicy Number: Repository [id number] Date:6839-12-69CZ [address] [place] [address]YW: 07/20/2018 Tertiary NOT GIVENUNK Malott Insurance:SELF PAY [facility] [facility] Number: Effective Repository Date:2018-07-20 07/20/2018 ELDORA Primary E[place]A [place] Insurance:MEDICARE STARLINDOB: Community HEALTHY [id number] PART A [facility] [id number] Number: Repository RDGIS[place] [id number]: (330) Date:2018-07-20 () 07/20/2018 Secondary ELDORA Gissel Insurance:RURAL STARLINDOB: Community CARRIER BENEFIT [id number] Hospital PLANPolicy Number: Repository [id number] Date:3596-61-68[address] [place] [address]FG: 07/20/2018 Tertiary NOT GIVENUNK Gissel Insurance:SELF PAY [facility]ly [facility] Number: Effective Repository Date:2018-07-20 07/20/2018 ELDORA Primary ELDORA [place]iss[place] Insurance:MEDICARE STARLINDOB: Community HEALTHY [id number] PART A [facility] [id number] [facility] Number: Repository [place] [id number]: (330) Date:2018-07-20 () 07/20/2018 Secondary ELDORA Malott Insurance:RURAL STARLINDOB: Community CARRIER BENEFIT [id number] Hospital PLANPolicy Number: Repository [id number] Date:3340-64-36MV [address] [place] [address]BQ: 07/20/2018 Tertiary NOT GIVENUNK Malott Insurance:SELF PAY [facility] Number[facility] Effective Rep[facility] Date:2018-07-20 07/20/2018 ELDORA Primary ELDORA [place]ott [place] Insurance:MEDICARE STARLINDOB: Community HEALTHY [id number] PART A [facility] [id number] [facility] Number: Repository [place] [id number]: (330) Date:2018-07-20 () 07/20/2018 Secondary ELDORA Malott Insurance:RURAL STARLINDOB: Community CARRIER BENEFIT [id number] Hospital PLANPolicy Number: Repository [id number] Date:0004-14-09HC [address] [place] [address]DP: 07/20/2018 Tertiary NOT GIVENUNK Malott Insurance:SELF PAY Community [facility] Number: Effective Repository Date:2018-07-20 07/20/2018 ELDORA Primary ELDORA [place]issel [place] Insurance:MEDICARE STARLINDOB: Community HEALTHY [id number] PART A [facility] [id number] Memorial Hospital Number: Repository [place] [id number]: (330) Date:2018-07-20 () 07/20/2018 Secondary ELDORA Gissel Insurance:RURAL [place]: Community CARRIER BENEFIT [id number] Hospital PLANPolicy Number: Repository [id number] Date:2402-27-80UB [facility] [address] [address]CD: 07/20/2018 Tertiary NOT GIVENUNK Malott Insurance:SELF PAY [facility] Number: Effective Repository Date:2018-07-20 07/20/2018 ELDORA Primary ELDORA Malott [place] Insurance:MEDICARE STARLINDOB: Community HEALTHY [id number] PART A [facility] [id number] Memorial Hospital Number: Repository [place] [id number]: 330) Date:2018-07-2082 () 07/20/2018 Secondary ELDORA Gissel Insurance:RURAL STAR[place]OB: Community CARRIER BENEFIT [id number] Hospital PLANPolic Number: Repository [id number] Date:9497-50-98TZ [address] [address]XH: 07/20/2018 Tertiary NOT GIVENUNK Malott Insurance:SELF PAY Formerly [facility] Number: Effective Repository Date:2018-07-20 07/20/2018 ELDORA Primary ELDORA [place]issel [place] Insurance:MEDICARE STARL[place]OB: Community HEALTHY [id number] PART A [facility] [id number] Memorial Hospital Number: Repository [place] [id number] [address]Wjg: (330) Date:2018-07-20 () 07/20/2018 Secondary ELDORA Malott Insurance:RURAL STARLINDOB: Community CARRIER BENEFIT [id number] Number: Repository [id number] Date:8471-95-61LU [address] [address]IC: 07/20/2018 Tertiary NOT GIVENUNK Malott Insurance:SELF PAY [facility]ly [facility] Number: Effective Repository Date:2018-07-20 07/20/2018 ELDORA Primary ELDORA Malott [place] Insurance:MEDICARE STARLINDOB: Community HEALTHY [id number] PART A [facility] [id number] Number: Repository RDWMIR[place] [id number]: (330) Date:2018-07-20 () 07/20/2018 Secondary ELDORA Gissel Insurance:RURAL STAR[place]OB: Community CARRIER BENEFIT [id number] Number: Repository [id number] Date:1848-45-44JG [address] [place] [address]JA: 07/20/2018 Tertiary NOT GIVENUNK Gissel Insurance:SELF PAY [facility] Number: Effective Repository Date:2018-07-20 07/20/2018 ELDORA Primary ELDORA [place]ott [place] Insurance:MEDICARE STARLINDOB: Community HEALTHY [id number] PART A [facility] [id number] Number: [place] [id number]: (330) Date:2018-07-20 13609 () 07/20/2018 Secondary ELDORA Gissel Insurance:[place]URAL [place]: Community CARRIER BENEFIT [id number] Number: Repository [id number] Date:1799-40-84SG [address] [place] [address]HG: 07/20/2018 Tertiary NOT GIVENUNK Malott Insurance:SELF PAY [facility] Number: Effective Repository Date:2018-07-20 07/20/2018 ELDORA Primary ELDORA Gissel [place] Insurance:MEDICARE [place]OB: Community HEALTHY [id number] PART A [facility] [id number] Memorial [facility] Number: Repository [place] [id number] [phone]: (330) Date:2018-07-20 () 07/20/2018 Secondary ELDORA Malott Insurance:[place]URAL [place]: Community CARRIER BENEFIT [id number] Number: Repository [id number] Date:8714-21-30NN [address] [place] [address]VU: 07/20/2018 Tertiary NOT GIVENUNK Malott Insurance:SELF PAY Formerly [facility] Number: Effective Repository Date:2018-07-20 07/20/2018 ELDORA Primary ELDORA Malott [place] Insurance:MEDICARE STARLINDOB: Community HEALTHY [id number] PART A [facility] [id number] Number: Repository [place] [id number]: (330) Date:2018-07-20 () 07/20/2018 Secondary ELDORA Malott Insurance:RURAL STAR[place]OB: Community CARRIER BENEFIT [id number] [facility] Number: Repository [id number] Date:3980-74-77MJ [address] [place] [address]ZN: 07/20/2018 Tertiary NOT GIVENUNK Malott Insurance:SELF PAY [facility] Number: Effective Repository Date:2018-07-20 07/20/2018 ELDORA Primary ELDORA Malott [place] Insurance:MEDICARE STARLINDOB: Community HEALTHY [id number] PART A [facility] [id number] Memorial Hospital Number: Repository [place] [id number]: (330) Date:2018-07-20 () 07/20/2018 Secondary ELDORA Malott Insurance:RURAL [place]: Community CARRIER BENEFIT [id number] PLANPolicy Number: Repository [id number] Date:1827-69-07CD [address] [place] [address]DM: 07/20/2018 Tertiary NOT GIVENUNK Gissel Insurance:SELF PAY Community [facility] Number: Effective Repository Date:2018-07-20 07/20/2018 ELDORA Primary ELDORA Gissel [place] Insurance:MEDICARE STARLINDOB: Community HEALTHY [id number] PART A [facility] [id number] Memorial Hospital Number: Repository [place] [id number] [phone]: (677) Date:2018-07-20 () 07/20/2018 Secondary ELDORA Malott Insurance:RURAL [place]AR[place]OB: Community CARRIER BENEFIT [id number] PLANPolicy Number: Repository [id number] Date:1088-53-64WW [address] [place] [address]JC: 07/20/2018 Tertiary NOT GIVENUNK Gissel Insurance:SELF PAY Formerly [facility] Number: Effective Repository Date:2018-07-20 07/20/2018 ELDORA Primary ELDORA Gissel [place] Insurance:MEDICARE STARLINDOB: Community HEALTHY [id number] PART A [facility] [id number] Number: Repository [place] [id number]: (330) Date:2018-07-20 () 07/20/2018 Secondary ELDORA Gissel Insurance:RURAL STAR[place]OB: Community CARRIER BENEFIT [id number] Number: Repository [id number] Date:6934-34-48LX [facility] [address] [place] [address]WD: 07/20/2018 Tertiary NOT GIVENUNK Gissel Insurance:SELF PAY Community [facility] Number: Effective Repository Date:2018-07-20 07/20/2018 ELDORA Primary ELDORA Gissel [place] Insurance:MEDICARE STARLINDOB: Community HEALTHY [id number] PART A [facility] [id number] Memorial Hospital Number: Repository RDWMIR[place] [id number]: (330) Date:2018-07-20 () 07/20/2018 Secondary ELDORA Malott Insurance:RURAL [place]AR[place]OB: Community CARRIER BENEFIT [id number] PLANPolicy Number: Repository [id number] Date:4146-19-25IQ [address] [place] [address]ZX: 07/20/2018 Tertiary NOT GIVENUNK Malott Insurance:SELF PAY Formerly [facility] Number: Effective Repository Date:2018-07-20 07/20/2018 ELDORA Primary ELDORA Malott [place] Insurance:MEDICARE STARLINDOB: Community HEALTHY [id number] PART A [facility] [id number] Memorial Hospital Number: Repository [place] [id number]: (330) Date:2018-07-20 () 07/20/2018 Secondary ELDORA Malott Insurance:RURAL [place]OB: Community CARRIER BENEFIT [id number] Hospital PLANPolicy Number: Repository [id number] Date:5080-43-08LG [address] [place] [address]JC: 07/20/2018 Tertiary NOT GIVENUNK Malott Insurance:SELF PAY [facility] Number: Effective Repository Date:2018-07-20 07/20/2018 ELDORA Primary ELDORA Gissel [place] Insurance:MEDICARE STARLINDOB: Community HEALTHY [id number] PART A [facility] [id number] Memorial Hospital Number: Repository [place] [id number]: (330) Date:2018-07-20 () 07/20/2018 Secondary ELDORA Gissel Insurance:RURAL [place]: Community CARRIER BENEFIT [id number] [place] [address] PLANPolicy Number: Repository [id number] Date:2958-94-13CP [address] [place] [address]VS: 07/20/2018 Tertiary NOT GIVENUNK Malott Insurance:SELF PAY Community [facility] Number: Effective Repository Date:2018-07-20 07/20/2018 ELDORA Primary ELDORA Gissel [place] Insurance:MEDICARE STARLINDOB: Community HEALTHY [id number] PART A [facility] [id number] Memorial Hospital Number: Repository [place] [id number]: (330) Date:2018-07-20 () 07/20/2018 Secondary ELDORA Gissel Insurance:RURAL [place]OB: Community CARRIER BENEFIT [id number] Hospital PLANPolic Number: Repository [id number] Date:6402-57-59RX [facility] [address] [place] [address]QJ: 07/20/2018 Tertiary NOT GIVENUNK Gissel Insurance:SELF PAY [facility] Number: Effective Repository Date:2018-07-20 07/20/2018 ELDORA Primary ELDORA Malott [place] Insurance:MEDICARE STARLINDOB: Community HEALTHY [id number] PART A [facility] [id number] Memorial Hospital Number: Repository [place] [id number]: 330) Date:2018-07-2069 () 07/20/2018 Secondary ELDORA Gissel Insurance:[place]URAL [place]: Community CARRIER BENEFIT [id number] Hospital PLANPolicy Number: Repository [id number] Date:2191-09-90YV [facility] [address] [place] [address]MN: 07/20/2018 Tertiary NOT GIVENUNK Gissel Insurance:SELF PAY Community [facility] Number: Effective Repository Date:2018-07-20 07/20/2018 ELDORA Primary ELDORA Malott [place] Insurance:MEDICARE STARLINDOB: Community HEALTHY [id number] PART A [facility] [id number] Memorial Hospital Number: Repository [place] [id number]: 330) Date:2018-07-2036 () 07/20/2018 Secondary ELDORA Gissel Insurance:RURAL STAR[place]OB: Community CARRIER BENEFIT [id number] [facility] Number: Repository [id number] Date:6829-07-48BJ [address] [place] [address]HQ: 07/20/2018 Tertiary NOT GIVENUNK Gissel Insurance:SELF PAY [facility] Number: Effective Repository Date:2018-07-20 07/20/2018 ELDORA Primary ELDORA [place]ott [place] Insurance:MEDICARE STARLINDOB: Community HEALTHY [id number] PART A [facility] [id number] Memorial Hospital Number: Repository RDWMIR[place] [id number] [address]Zrz: 330) Date:2018-07-2048 () 07/20/2018 Secondary ELDORA Gissel Insurance:RURAL [place]OB: Community CARRIER BENEFIT [id number] [facility] Number: Repository [id number] Date:8642-05-12YC [address] [place] [address]UQ: 07/20/2018 Tertiary NOT GIVENUNK Malott Insurance:SELF PAY [facility] Number: Effective Repository Date:2018-07-20 07/20/2018 ELDORA Primary ELDORA [place]issel [place] Insurance:MEDICARE STARLINDOB: Community HEALTHY [id number] PART A [facility] [id number] Memorial Hospital Number: [place] [id number] [address]Qsz: (330) Date:2018-07-20 [id number] () 07/20/2018 Secondary ELDORA Gissel Insurance:RURAL [place]AR[place]OB: Community CARRIER BENEFIT [id number] [facility] Number: Repository [id number] Date:4925-32-94EH [address] [address]CZ: 07/20/2018 Tertiary NOT GIVENUNK Malott Insurance:SELF PAY [facility] Number: Effective Repository Date:2018-07-20 07/20/2018 ELDORA Primary ELDORA [place] Insurance:MEDICARE STARLINDOB: Community HEALTHY [id number] PART A [facility] [id number] Number: Repository RDGIS[place] [id number] [address]Sss: (330) Date:2018-07-20 () 07/20/2018 Secondary ELDORA Gissel Insurance:RURAL STAR[place]OB: Community CARRIER BENEFIT [id number] Number: Repository [id number] Date:6242-88-95VA [address] [place] [address]OS: 07/20/2018 Tertiary NOT GIVENUNK Malott Insurance:SELF PAY [facility] Number: Effective Repository Date:2018-07-20 07/20/2018 ELDORA Primary ELDORA [place]issel [place] Insurance:MEDICARE STARLINDOB: Community HEALTHY [id number] PART A [facility] [id number] Number: [place] [id number] [address]Ize: (330) Date:2018-07-20 () 07/20/2018 Secondary ELDORA Gissel Insurance:RURAL [place]AR[place]OB: Community CARRIER BENEFIT [address] [place] [address] Number: Repository [id number] Date:0337-09-26IK [address] [place] [address]VF: 07/20/2018 Tertiary NOT GIVENUNK Gissel Insurance:SELF PAY [facility] Number: Effective Repository Date:2018-07-20 07/20/2018 ELDORA Primary ELDORA [place]iss[place] Insurance:MEDICARE STARLINDOB: Community HEALTHY [id number] PART A [facility] [id number] Number: Repository [place] [id number]: (330) Date:2018-07-20 () 07/20/2018 Secondary ELDORA Gissel Insurance:RURAL [place]AR[place]OB: Community CARRIER BENEFIT [id number] PLANPolicy Number: Repository [id number] Date:0544-57-42HO [address] [address]TJ: 07/20/2018 Tertiary NOT GIVENUNK Malott Insurance:SELF PAY Community [facility] Number: Effective Repository Date:2018-07-20 07/20/2018 ELDORA Primary ELDORA [place]iss[place] Insurance:MEDICARE STARLINDOB: Community HEALTHY [id number] PART A [facility] [id number] Memorial Hospital Number: Repository [place] [id number]: (376) Date:2018-07-20 () 07/20/2018 Secondary ELDORA Malott Insurance:RURAL [place]AR[place]OB: Community CARRIER BENEFIT [id number] Hospital PLANPolicy Number: Repository [id number] Date:1394-83-75SA [facility] [address] [address]QP: 07/20/2018 Tertiary NOT GIVENUNK Gissel Insurance:SELF PAY Community [facility] Number: Effective Repository Date:2018-07-20 07/20/2018 ELDORA Primary ELDORA [place] Insurance:MEDICARE STARLINDOB: Community HEALTHY [id number] PART A [facility] [id number] Memorial Hospital Number: Repository RDWM[place] [id number]: 330) Date:2018-07-20 () 07/20/2018 Secondary ELDORA Gissel Insurance:RURAL STARLINDOB: Community CARRIER BENEFIT [id number] Hospital PLANPolic Number: Repository [id number] Date:2509-07-58ZP [address] [address]CC: 07/20/2018 Tertiary NOT GIVENUNK Gissel Insurance:SELF PAY Community [facility] Number: Effective Repository Date:2018-07-20 07/20/2018 ELDORA Primary ELDORA [place] Insurance:MEDICARE STARLINDOB: Community HEALTHY [id number] PART A [facility] [id number] Memorial Hospital Number: Repository RDMIRNA [place] [id number]: (330) Date:2018-07-20 () 07/20/2018 Secondary ELDORA Gissel Insurance:RURAL STARLINDOB: Community CARRIER BENEFIT [id number] Hospital PLANPolicy Number: Repository [id number] Date:3030-68-44KL [address] [place] [address]VX: 07/20/2018 Tertiary NOT GIVENUNK Gissel Insurance:SELF PAY [facility] Number: Effective Repository Date:2018-07-20 07/20/2018 ELDORA Primary ELDORA [place] Insurance:MEDICARE STARLINDOB: Community HEALTHY [id number] PART A [facility] [id number] Memorial Hospital Number: Rep[place] [id number] [address]Djm: (330) Date:2018-07-20 () 07/20/2018 Secondary ELDORA Gissel Insurance:RURAL STARLINDOB: Community CARRIER BENEFIT [id number] Hospital PLANPolicy Number: Repository [id number] Date:7192-23-13GH [address] [place] [address]OW: 07/20/2018 Tertiary NOT GIVENUNK Malott Insurance:SELF PAY Community [facility] Number: Effective Repository Date:2018-07-20 07/20/2018 ELDORA Primary ELD[place] Insurance:MEDICARE STARLINDOB: Community HEALTHY [id number] PART A [facility] [id number] Memorial Hospital Number: Repository [place] [id number] [address]Los: (330) Date:2018-07-20 () 07/20/2018 Secondary ELDORA Gissel Insurance:RURAL STARLINDOB: Community CARRIER BENEFIT [id number] Hospital PLANPolicy Number: Repository [id number] Date:8369-36-03BB [address] [place] [address]HT: 07/20/2018 Tertiary NOT GIVENUNK Gissel Insurance:SELF PAY Community [facility] Number: Effective Repository Date:2018-07-20 07/20/2018 ELDORA Primary ELDORA [place] Insurance:MEDICARE STARLINDOB: Community HEALTHY [id number] PART A [facility] [id number] Memorial Hospital Number: Repository [place] [id number] [address]Gwe: 330) Date:2018-07-20 () 07/20/2018 Secondary ELDORA Gissel Insurance:RURAL STARLINDOB: Community CARRIER BENEFIT [id number] Hospital PLANPolicy Number: Repository [id number] Date:1215-34-24GA [facility] [address] [place] [address]AS: 07/20/2018 Tertiary NOT GIVENUNK Gissel Insurance:SELF PAY Community [facility] Number: Effective Repository Date:2018-07-20 07/20/2018 ELDORA Primary ELDORA [place] Insurance:MEDICARE STARLINDOB: Community HEALTHY [id number] PART A [facility] [id number] Memorial Hospital Number: Repository [place] [id number] [address]Bxp: 330) Date:2018-07-20 () 07/20/2018 Secondary ELDORA Gissel Insurance:RURAL STARLINDOB: Community CARRIER BENEFIT [id number] Hospital PLANPolicy Number: Repository [id number] Date:4783-79-15DD [facility] [address] [place] [address]CV: 07/20/2018 Tertiary NOT GIVENUNK Gissel Insurance:SELF PAY Community [facility] Number: Effective Repository Date:2018-07-20 07/20/2018 ELDORA Primary [place]LD[place]A [place] Insurance:MEDICARE STARLINDOB: Community HEALTHY [id number] PART A [facility] [id number] Memorial Hospital Number: Repository [place] [id number]: 800) Date:2018-07-20 () 07/20/2018 Secondary ELDORA Gissel Insurance:RURAL STARLINDOB: Community CARRIER BENEFIT [id number] [facility] Number: Repository [id number] Date:0182-63-18FT [address] [address]AR: 07/20/2018 Tertiary NOT GIVENUNK Gissel Insurance:SELF PAY [facility] Number: Effective Repository Date:2018-07-20 07/20/2018 ELDORA Primary ELD[place]A [place] Insurance:MEDICARE STARLINDOB: Community HEALTHY [id number] PART A [facility] [id number] Memorial Hospital Number: Repository RDMIRNA [place] [id number]: 330) Date:2018-07-20 () 07/20/2018 Secondary ELDORA Gissel Insurance:RURAL STARLINDOB: Community CARRIER BENEFIT [id number] Number: Repository [id number] Date:6755-04-51KH [address] [address]MW: 07/20/2018 Tertiary NOT GIVENUNK [place] Insurance:SELF PAY [facility]ly [facility] Number: Effective Repository Date:2018-07-20 07/20/2018 ELDORA Primary [place]LD[place]A [place] Insurance:MEDICARE STARLINDOB: Community HEALTHY [id number] PART A [facility] [id number] Memorial Hospital Number: Repository [place]DW[place] [id number]: (330) Date:2018-07-20 [id number] () 07/20/2018 Secondary ELDORA Gissel Insurance:RURAL STARLINDOB: Community CARRIER BENEFIT [id number] [facility] Number: Repository [id number] Date:7782-14-57LG [address] [address]GF: 07/20/2018 Tertiary NOT GIVENUNK Gissel Insurance:SELF PAY [facility] Number: Effective Repository Date:2018-07-20 07/20/2018 ELDORA Primary ELDORA [place] Insurance:MEDICARE STARLINDOB: Community HEALTHY [id number] PART A [facility] [id number] Memorial Hospital Number: Repository [place] [id number] [address]Fji: (330) Date:2018-07-20 () 07/20/2018 Secondary ELDORA Gissel Insurance:RURAL STARLINDOB: Community CARRIER BENEFIT [id number] Number: Repository [id number] Date:5709-03-21FB [address] [address]YB: 07/20/2018 Tertiary NOT GIVENUNK [place] Insurance:SELF PAY [facility]ly [facility] Number: Effective Repository Date:2018-07-20 07/20/2018 ELDORA Primary [place] Insurance:MEDICARE STARLINDOB: Community HEALTHY [id number] PART A [facility] [id number] Memorial Hospital Number: Repository [place] [id number]: (330) Date:2018-07-20 () 07/20/2018 Secondary ELDORA Gissel Insurance:RURAL STARLINDOB: Community CARRIER BENEFIT [id number] Number: Repository [id number] Date:[id number] [address]QS: 07/20/2018 Tertiary NOT GIVENUNK Gissel Insurance:SELF PAY [facility] Number: Effective Repository Date:2018-07-20 07/20/2018 ELDORA Primary [place]MEDICARE [place]: Community HEALTHY [id number] PART A [facility] [id number] Number: Repository [place] [id number]: (330) Date:2018-07-20 () 07/20/2018 Secondary ELDORA Gissel Insurance:RURAL STARLINDOB: Community CARRIER BENEFIT [id number] Hospital PLANPolicy Number: Repository [id number] Date:0443-27-42[address] [place] [address]FY: 07/20/2018 Tertiary NOT GIVENUNK Gissel Insurance:SELF PAY Community [facility] Number: Effective Repository Date:2018-07-20 07/20/2018 [place] Primary [place] Insurance:MEDICARE STARLINDOB: Community HEALTHY [id number] PART A [facility] [id number] Number: Repository RDGISSEL [place] [id number]: (045) Date:2018-07-2004 () 07/20/2018 Secondary ELDORA Malott Insurance:RURAL STARLINDOB: Community CARRIER BENEFIT [id number] PLANPolicy Number: Repository [id number] Date:5383-66-40[address] [address]MB: 07/20/2018 Tertiary NOT GIVENUNK [place] Insurance:SELF PAY Community [facility] Number: Effective Repository Date:2018-07-20 07/07/2018 ELDOR[place] Primary E[place] Insurance:MEDICARE STARLINDOB: Community HEALTHY [id number] PART A [facility] [id number] Number: Repository RDWMIRNA [place] [id number]: (873) Date:2018-07-07 () 07/07/2018 Secondary ELDORA Gissel Insurance:RURAL STARLINDOB: Community CARRIER BENEFIT [id number] PLANPolicy Number: Repository [id number] Date:5114-02-15[address] [place] [address]MK: 07/07/2018 Tertiary NOT GIVENUNK [place] Insurance:SELF PAY Community [facility] Number: Effective Repository Date:2018-07-07 06/17/2018 ELDORA Primary E[place] Insurance:MEDICARE STARLINDOB: Community HEALTHY [id number] PART A [facility] [id number] Number: [place] [id number]: (330) Date:2018-03-08 () 06/17/2018 Secondary ELDORA Gissel Insurance:RURAL STARLINDOB: Community CARRIER BENEFIT [id number] PLANPolicy Number: Repository [id number] Date:9660-69-54[address] [address]FQ: 06/17/2018 Tertiary NOT GIVENUNK Gissel Insurance:SELF PAY [facility] Number: Effective Repository Date:2018-03-08 06/09/2018 ELDORA Primary E[place]A [place] Insurance:MEDICARE STARLINDOB: Community HEALTHY [id number] PART A [facility] [id number] [facility] Number: Repository RDWOOST[place] [id number]: (330) Date:2018-06-09 () 06/09/2018 Secondary ELDORA Malott Insurance:RURAL STARLINDOB: Community CARRIER BENEFIT [id number] PLANPolicy Number: Repository [id number] Date:5084-16-85[address] [address]OK: 06/09/2018 Tertiary NOT GIVENUNK Gissel Insurance:SELF PAY [facility] Number: Effective Repository Date:2018-06-09 06/04/2018 ELDORA Primary ELD[place]A [place] Insurance:MEDICARE STARLINDOB: Community HEALTHY [id number] PART A [facility] [id number] [place] [address] Number: Repository RDWOOHAIDER [place] [id number]: (330) Date:2018-06-04 () 06/04/2018 Secondary ELDORA Gissel Insurance:RURAL STARLINDOB: Community CARRIER BENEFIT [id number] Hospital PLANPolicy Number: Repository [id number] Date:4431-92-48[address] [place] [address]MR: 06/04/2018 Tertiary NOT GIVENUNK Gissel Insurance:SELF PAY Community [facility] Number: Effective Repository Date:2018-06-04 05/26/2018 ELDOR[place] Primary ELD[place] Insurance:MEDICARE STARLINDOB: Community HEALTHY [id number] PART A [facility] [id number] Number: Repository [place] [id number]: (330) Date:2018-05-1489 () 05/26/2018 Secondary ELDORA Gissel Insurance:RURAL STARLINDOB: Community CARRIER BENEFIT [id number] Hospital PLANPolicy Number: Repository [id number] Date:8507-65-35OZ [facility] [address] [place] [address]TD: 05/26/2018 Tertiary NOT GIVENUNK Gissel Insurance:SELF PAY Community [facility] Number: Effective Repository Date:2018-05-26 05/09/2018 ELDORA Primary ELDORA [place]ott [place] Insurance:MEDICARE STARLINDOB: Community HEALTHY [id number] PART A [facility] [id number] [facility] Hospital Number: Repository [place] [id number]: 330) Date:2018-05-0809 () 05/09/2018 Secondary ELDORA Malott Insurance:RURAL STARLINDOB: Community CARRIER BENEFIT [id number] Hospital PLANPolicy Number: Repository [id number] Date:1532-31-39QG [facility] [address] [place] [address]MY: 05/09/2018 Tertiary NOT GIVENUNK Gissel Insurance:SELF PAY Community [facility] Number: Effective Repository Date:2018-05-08 05/09/2018 ELDOR[place] Primary ELD[place]A [place] Insurance:MEDICARE STARLINDOB: Community HEALTHY [id number] PART A [facility] [id number] Memorial Hospital Number: Repository [place] [id number]: (330) Date:2018-05-08 () 05/09/2018 Secondary ELDORA Gissel Insurance:RURAL STARLINDOB: Community CARRIER BENEFIT [id number] Hospital PLANPolicy Number: Repository [id number] Date:3355-03-49AE [address] [address]BG: 05/09/2018 Tertiary NOT GIVENUNK [place]ott Insurance:SELF PAY [facility] Number: Effective Repository Date:2018-05-09 05/09/2018 ELDOR[place] Primary ELD[place]A [place]ott [place] Insurance:MEDICARE STARLINDOB: Community HEALTHY [id number] PART A [facility] [id number] Memorial Hospital Number: Repository [facility] [id number]: 330) Date:2018-05-08 [id number] () 05/09/2018 Secondary ELDORA Malott Insurance:RURAL STARLINDOB: Community CARRIER BENEFIT [id number] Hospital PLANPolicy Number: Repository [id number] Date:4119-24-83[address] [place] [address]ZH: 05/09/2018 Tertiary NOT GIVENUNK Gissel Insurance:SELF PAY [facility] Number: Effective Repository Date:2018-05-09 05/08/2018 ELDORA Primary ELD[place]A [place]ott [place] Insurance:MEDICARE STARLINDOB: Community HEALTHY [id number] PART A [facility] [id number] Memorial Hospital Number: [place] [id number]: (330) Date:2018-05-08 [id number] () 05/08/2018 Secondary ELDORA Gissel Insurance:RURAL STARLINDOB: Community CARRIER BENEFIT [id number] Hospital PLANPolicy Number: Repository [id number] Date:2677-71-72[address] [address]CR: 05/08/2018 Tertiary NOT GIVENUNK Malott Insurance:SELF PAY [facility] Number: Effective Repository Date:2018-05-08 05/08/2018 ELDORA Primary ELD[place]A [place]ott [place] Insurance:MEDICARE STARLINDOB: Community HEALTHY [id number] PART A [facility] [id number] Memorial Hospital Number: Repository [place] [id number]: (330) Date:2018-05-08 [id number] () 05/08/2018 Secondary ELDORA Malott Insurance:RURAL STARLINDOB: Community CARRIER BENEFIT [id number] [place] [address] PLANPolicy Number: Repository [id number] Date:9250-64-63ZS [address] [place] [address]GG: 05/08/2018 Tertiary NOT GIVENUNK Gissel Insurance:SELF PAY [facility] Number: Effective Repository Date:2018-05-08 04/14/2018 [place] Insurance:MEDICARE StarlinDOB: Community HEALTHY [id number] PART A [facility] [id number] Memorial Hospital Number: [place], [place] [id number]: (330) Date:2018-04-14 [id number] () 04/14/2018 Secondary [place] Insurance:RURAL StarlinDOB: Community CARRIER BENEFIT [id number] Number: Repository [id number] Date:0909-02-03TZ [facility] [address] [place] [address]QN: 04/14/2018 Tertiary NOT GIVENUNK Gissel Insurance:SELF PAY [facility]ly [facility] Number: Effective Repository Date:2018-04-14 03/01/2018 ELDORA [id number] Primary ELDORA [facility] Insurance:MEDICARE STARLINDOB: Community [address] PART A [facility] [id number] Number: Repository [id number]: [phone]) [id number] [phone] ([phone]) Date:2018-03-01 03/01/2018 Secondary ELDORA Malott Insurance:RURAL STARLINDOB: Community CARRIER BENEFIT [id number] Hospital PLANPolicy Number: Repository [id number] Date:6361-70-41CH [address] [address]BT: 03/01/2018 Tertiary NOT GIVENUNK Gissel Insurance:SELF PAY Community [facility] Number: Effective Repository Date:2018-03-01 03/01/2018 ELDORA [id number] Primary ELDORA Gissel [place] Insurance:MEDICARE STARLINDOB: Community [address] PART A [facility] [id number] Number: Repository [id number]: [phone] [id number] [phone] () Date:2018-03-01 03/01/2018 Secondary ELDORA Gissel Insurance:RURAL STARLINDOB: Community CARRIER BENEFIT [address] [place] [address] PLANPolicy Number: Repository [id number] Date:4574-46-15QL [facility] [address] [place] [address]SP: 03/01/2018 Tertiary NOT GIVENUNK Gissel Insurance:SELF PAY Community [facility] Number: Effective Repository Date:2018-03-01 03/01/2018 ELDORA [id number] Primary ELDORA Gissel [place] Insurance:MEDICARE STARLINDOB: Community [address] PART A [address] Number: Repository [id number]: [phone] [id number] [phone] () Date:2018-03-01 03/01/2018 Secondary ELDORA Gissel Insurance:RURAL STARLINDOB: Community CARRIER BENEFIT [address] [place] [address] PLANPolicy Number: Repository [id number] Date:7993-14-96[address] [address]JQ: 03/01/2018 Tertiary NOT GIVENUNK Gissel Insurance:SELF PAY [facility] Number: Effective Repository Date:2018-03-01 03/01/2018 ELDORA [id number] Primary ELDORA Malott [place] Insurance:MEDICARE STARLINDOB: Community [address] PART A [facility] [id number] [place] Number: Repository [id number]: 419 [id number] [phone] () Date:2018-03-01 03/01/2018 Secondary ELDORA Malott Insurance:RURAL STARLINDOB: Community CARRIER BENEFIT [id number] PLANPolicy Number: Repository [id number] Date:8683-39-33JG [address] [address]ZK: 03/01/2018 Tertiary NOT GIVENUNK [place] Insurance:SELF PAY [facility] Number: Effective Repository Date:2018-03-01 03/01/2018 ELDORA [id number] Primary ELDORA Gissel [place] Insurance:MEDICARE STARLINDOB: Community [address] PART A [facility] [id number], [place] Number: Repository [address]Dnb: 419 [id number] [phone] () Date:2018-03-01 03/01/2018 Secondary ELDORA Gissel Insurance:RURAL STARLINDOB: Community CARRIER BENEFIT [id number] PLANPolicy Number: Repository [id number] Date:5271-71-38UF [address] [address]OS: 03/01/2018 Tertiary NOT GIVENUNK [place]ott Insurance:SELF PAY [facility] Number: Effective Repository Date:2018-03-01 03/01/2018 ELDORA [id number] Primary ELDORA Gissel [place] Insurance:MEDICARE STARLINDOB: Community [address] PART A [facility] [id number] [place] Number[facility] Repository [id number]: [phone] [id number] [phone] () Date:2018-03-01 03/01/2018 Secondary ELDORA Malott Insurance:RURAL STARLINDOB: Community CARRIER BENEFIT [id number] PLANPolicy Number: Repository [id number] Date:4345-68-75[address] [address]JJ: 03/01/2018 Tertiary NOT GIVENUNK [place]ott Insurance:SELF PAY Community [facility] Number: Effective Repository Date:2018-03-01 03/01/2018 ELDORA [id number] Primary ELDORA Malott [place] Insurance:MEDICARE STARLINDOB: Community [address] PART A [facility] [id number], [place] Number: Repository [id number]: 419 [id number] [phone] () Date:2018-03-01 03/01/2018 Secondary ELDORA Malott Insurance:RURAL STARL[place]OB: Community CARRIER BENEFIT [id number] Hospital PLANPolicy Number: Repository [id number] Date:8267-63-29OE [facility] [address] [place] [address]ZY: 03/01/2018 Tertiary NOT GIVENUNK [place]ott Insurance:SELF PAY Community [facility] Number: Effective Repository Date:2018-03-01 03/01/2018 ELDORA [id number] Primary ELDORA Malott [place] Insurance:MEDICARE STARLINDOB: Community [address] PART A [facility] [id number], [place] Number: Repository [address]Kpr: 419 [id number] [phone] () Date:2018-03-01 03/01/2018 Secondary ELDORA Malott Insurance:RURAL STARLINDOB: Community CARRIER BENEFIT [id number] Hospital PLANPolicy Number: Repository [id number] Date:9330-82-72TZ [address] [address]XX: 03/01/2018 Tertiary NOT GIVENUNK [place] Insurance:SELF PAY Community [facility] Number: Effective Repository Date:2018-03-01 03/01/2018 ELDORA [id number] Primary ELDORA Malott [place] Insurance:MEDICARE STARLINDOB: Community [address] PART A [facility] [id number], [place] Number: Repository [id number]: [phone] [id number] [phone] () Date:2017-10-20 03/01/2018 Secondary ELDORA Gissel Insurance:RURAL STARLINDOB: Community CARRIER BENEFIT [id number] Hospital PLANPolicy Number: Repository [id number] Date:5359-73-70EI [address] [address]IA: 03/01/2018 Tertiary NOT GIVENUNK Gissel Insurance:SELF PAY Community [facility] Number: Effective Repository Date:2017-10-20 01/21/2018 [place] [id number] Primary [place] [facility] Insurance:MEDICARE StarlinDOB: Community [address] PART A [facility] [id number] Number: Repository [id number]: [phone] [id number] [phone] () Date:2018-01-21 01/21/2018 Secondary [place] Gissel Insurance:RURAL StarlinDOB: Community CARRIER BENEFIT [id number] Hospital PLANPolicy Number: Repository [id number] Date:0644-93-07PC [address] [place] [address]UQ: 01/21/2018 Tertiary NOT GIVENUNK [place] Insurance:SELF PAY [facility] Number: Effective Repository Date:2018-01-21 01/18/2018 [place] [id number] Primary [place] [facility] Insurance:MEDICARE StarlinDOB: Community [address] PART A [facility] [id number], [place] Number: Repository [id number]: [phone] [id number] [phone] () Date:2018-01-18 01/18/2018 Secondary [place] Insurance:RURAL StarlinDOB: Community CARRIER BENEFIT [id number] Hospital PLANPolicy Number: Repository [id number] Date:1067-58-10NQ [address] [address]CP: 01/18/2018 Tertiary NOT GIVENUNK Gissel Insurance:SELF PAY [facility] Number: Effective Repository Date:2018-01-18 01/15/2018 [place] [id number] Primary ELDORA Gissel [place] Insurance:MEDICARE STARLINDOB: Community [address] PART A BPolicy [id number], [place] Number: Repository [id number]: [phone] [id number] [phone] () Date:2018-01-15 01/15/2018 Secondary ELDORA Malott Insurance:RURAL STARLINDOB: Community CARRIER BENEFIT [id number] Hospital PLANPoly Number: Repository [id number] Date:7676-78-55AC [address] [address]FM: 01/15/2018 Tertiary NOT [facility] [place] Insurance:SELF PAY [facility] Number: Effective Repository Date:2018-01-15
== END ==
LOC: OLS.WHLCAR 05:50
PROVIDERS: Visit Provider Family Medicine
DX: E11.9 Type 2 diabetes mellitus without complications (principal); D64.9 Anemia, unspecified; E78.5 Hyperlipidemia, unspecified; J44.9 Chronic obstructive pulmonary disease, unspecified
CPT/HCPCS: 36415; 80048; 85027

== ENCOUNTER 2018-10-27 10:30 | Outpatient (RCR) | payer MEDICARE, OTHER, SELFPAY ==
[2018-09-15 10:33] VITALS: BMI 29.6
[2018-10-02 01:42] VITALS: BP 147/62; PULSE 65; RESP 16; TEMP 35.7
[2018-10-13 11:00] VITALS: BP 139/77; PULSE 68; RESP 18; TEMP 35.5; BMI 29.6
--- NOTE | 2018-10-13 11:39 | PCM.WC.PN ---
(1) Non-healing surgical wound Status: Chronic Current Visit: Yes Code(s): T81.89XA - Other complications of procedures, not elsewhere classified, initial encounter Type of Wound Chief Complaint: Nonhealing surgical wound. History of Wound: Ms. Wynn is a very pleasant 82-year-old who is in a stable state of health until over a month ago when she was admitted to the hospital due to large bowel perforation. She subsequently had surgery and was discharged to a intermediate facility however in the facility she had reopening of the surgical wound. Since reopening, she has had wet-to-dry dressings without any significant improvement. She was again seen by her general surgeon subsequently referred to the wound center for continued management of her nonhealing surgical wound. Currently on IV antibiotics. She denies any concerns at this time. Progress of Wound: Improving. - Physical Exam Vital Signs Temp Pulse Resp BP 96 F L 68 18 139/77 H 10/13/18 11:00 10/13/18 11:00 10/13/18 11:00 10/13/18 11:00 General: Alert, Cooperative, No apparent distress HEENT: Atraumatic, Normocephalic Oral: Moist Mucosa Neck: Supple Lungs: Normal air movement Abdomen: Non Tender Extremities: No cyanosis Skin: Ulcer/ Wound Wound Measurements and Assessment WC - Nurse 1 - General Ulcer Measurement Start: 10/13/18 11:00 Freq: Status: Active Protocol: Activity Type Activity Date Activity User E-Sign Co-Sign Detail Recorded Client Recorded Date Recorded By Document 10/13/18 11:00 [id number] 10/13/18 11:12 RB 10/13/18 11:00 Wound Center Nurse 1 [Ulcer Assessment] #3 Abd -Combined with other wound No -Current Size (cm) - Length 0.8 -Current Size (cm) - Width 0.6 -Current Size (cm) - Depth 0.1 -Total Square Cm 0.48 -Photo Taken No -Tunneling No -Undermining/Tunneling No -Circular Undermining No -Exudate Amt Small (1-33%) -Exudate Type Serosanguineous -Wound Margin Distinct, Outline Attached -Granulation Amt Medium (34-66%) -Granulation Quality [place] -Slough/Fibrin Yes -Necrosis Amt Medium (34-66%) -Necrotic Tissue Type Adherent Slough -Structure Exposed N/A -Texture (Raisa-wound Skin Appearance) Assessed -Moisture (Raisa-wound Skin Appearance Assessed ) -Color (Raisa-wound Skin Appearance) Assessed -Temperature (Raisa-wound Skin No Abnormality Appearance) (Pt Warm) -Tenderness on Palpation (Raisa-wound No Skin Appearance) -Ulcer Cleansing Rinsed/ Irrigated with Saline -Foul Odor after Cleansing No -Anesthetic Used 4% Lidocaine Solution WC - Nurse 2 - General Ulcer CM Notes Start: 10/13/18 11:00 Freq: Status: Active Protocol: Activity Type Activity Date Activity User E-Sign Co-Sign Detail Recorded Client Recorded Date Recorded By Document 10/13/18 11:27 MW [id number] 10/13/18 11:29 MW 10/13/18 11:27 Wound Center Nurse 2 [Procedure/Treatment] -Time 11:27 -Correct Patient Yes -Correct Side, Site, Position Yes -Correct Procedure Yes -Procedure Performed Yes -Type of Procedure Debridement -Clinical Debridement Subcutaneous -Post Debridement Size (cm) - Length 0.9 -Post Debridement Size (cm) - Width 0.5 -Post Debridement Size (cm) - Depth 0.2 -Total Square Cm 0.45 -Wound/Ulcer Outcome Not Healed -Ulcer Cleansing Rinsed/ Irrigated with Saline -Foul Odor after Cleansing No -Bioengineered Tissue No -Bleeding Controlled with Pressure -Offloading No -Treatment Response Procedure Tolerated Well [See Physician Procedure note for Specifics] Pain Scale: 0-10 Numeric [Pain] -Is Patient Pain Free? Yes Musculoskeletal: No Muscle Wasting Psych/Mental Status: Normal Affect Debridement Note Post-Debridement Measurements/Treatment WC - Nurse 2 - General Ulcer CM Notes Start: 10/13/18 11:00 Freq: Status: Active Protocol: Activity Type Activity Date Activity User E-Sign Co-Sign Detail Recorded Client Recorded Date Recorded By Document 10/13/18 11:27 MW [id number] 10/13/18 11:29 MW 10/13/18 11:27 Wound Center Nurse 2 #3 Abd -Time 11:27 -Correct Patient Yes -Correct Side, Site, Position Yes -Correct Procedure Yes -Procedure Performed Yes -Type of Procedure Debridement -Clinical Debridement Subcutaneous -Post Debridement Size (cm) - Length 0.9 -Post Debridement Size (cm) - Width 0.5 -Post Debridement Size (cm) - Depth 0.2 -Total Square Cm 0.45 -Wound/Ulcer Outcome Not Healed -Ulcer Cleansing Rinsed/ Irrigated with Saline -Foul Odor after Cleansing No -Bioengineered Tissue No -Bleeding Controlled with Pressure -Offloading No -Treatment Response Procedure Tolerated Well Pain Scale: 0-10 Numeric Is Patient Pain Free? Yes Wound debrided: Abdominal Wound Grade/Stage: Stage III Type of Debridement: Excisional debridement Anesthesia Used: 4% Lidocaine Solution Depth: Down to and including healthy tissue, in the subcutaneous layer Percentage of wound debrided: 100 Instrument Used: 3mm curette Tissue Removed: Slough and devitalized tissue Severity: Fat Layer Exposed Amount of bleeding with debridement: Mild Bleeding Controlled with: Pressure Patient tolerated procedure well Assessment/Plan Active Problems (Last Reviewed 09/15/18 @ 10:01 by Donnie Perkins MD) Non-healing surgical wound (Chronic) Assessment: Nonhealing surgical wound dehiscence status post large bowel perforation. Type 2 diabetes mellitus. Plan: Significantly improved. Wound VAC DC'd by intermediate about 6 days ago. Debridement done as documented above. Procedure was well-tolerated. Okay to discontinue wound VAC. Apply Promogran daily with Adaptic over top. Continued increased protein intake strongly recommended. All the questions were answered and they were asked to call with any further questions or concerns. Follow-up in 2 weeks. This note was generated with [employer] software. It may contain incorrect words, spelling, and punctuation that were not noted in checking the note before signing.
--- NOTE | 2018-10-13 11:43 | PN.PCM_ITS ---
(1) Non-healing surgical wound Status: Chronic Current Visit: Yes Code(s): T81.89XA - Other complications of procedures, not elsewhere classified, initial encounter Type of Wound Chief Complaint: Nonhealing surgical wound. History of Wound: Ms. Wynn is a very pleasant 82-year-old who is in a stable state of health until over a month ago when she was admitted to the hospital due to large bowel perforation. She subsequently had surgery and was discharged to a residential facility however in the facility she had reopening of the surgical wound. Since reopening, she has had wet-to-dry dressings without any significant improvement. She was again seen by her general surgeon subsequently referred to the wound center for continued management of her nonhealing surgical wound. Currently on IV antibiotics. She denies any concerns at this time. Progress of Wound: Improving. - Physical Exam Vital Signs Temp Pulse Resp BP 96 F L 68 18 139/77 H 10/13/18 11:00 10/13/18 11:00 10/13/18 11:00 10/13/18 11:00 General: Alert, Cooperative, No apparent distress HEENT: Atraumatic, Normocephalic Oral: Moist Mucosa Neck: Supple Lungs: Normal air movement Abdomen: Non Tender Extremities: No cyanosis Skin: Ulcer/ Wound Wound Measurements and Assessment WC - Nurse 1 - General Ulcer Measurement Start: 10/13/18 11:00 Freq: Status: Active Protocol: Activity Type Activity Date Activity User E-Sign Co-Sign Detail Recorded Client Recorded Date Recorded By Document 10/13/18 11:00 [id number] 10/13/18 11:12 RB 10/13/18 11:00 Wound Center Nurse 1 [Ulcer Assessment] #3 Abd -Combined with other wound No -Current Size (cm) - Length 0.8 -Current Size (cm) - Width 0.6 -Current Size (cm) - Depth 0.1 -Total Square Cm 0.48 -Photo Taken No -Tunneling No -Undermining/Tunneling No -Circular Undermining No -Exudate Amt Small (1-33%) -Exudate Type Serosanguineous -Wound Margin Distinct, Outline Attached -Granulation Amt Medium (34-66%) -Granulation Quality [place] -Slough/Fibrin Yes -Necrosis Amt Medium (34-66%) -Necrotic Tissue Type Adherent Slough -Structure Exposed N/A -Texture (Raisa-wound Skin Appearance) Assessed -Moisture (Raisa-wound Skin Appearance Assessed ) -Color (Raisa-wound Skin Appearance) Assessed -Temperature (Raisa-wound Skin No Abnormality Appearance) (Pt Warm) -Tenderness on Palpation (Raisa-wound No Skin Appearance) -Ulcer Cleansing Rinsed/ Irrigated with Saline -Foul Odor after Cleansing No -Anesthetic Used 4% Lidocaine Solution WC - Nurse 2 - General Ulcer CM Notes Start: 10/13/18 11:00 Freq: Status: Active Protocol: Activity Type Activity Date Activity User E-Sign Co-Sign Detail Recorded Client Recorded Date Recorded By Document 10/13/18 11:27 MW [id number] 10/13/18 11:29 MW 10/13/18 11:27 Wound Center Nurse 2 [Procedure/Treatment] -Time 11:27 -Correct Patient Yes -Correct Side, Site, Position Yes -Correct Procedure Yes -Procedure Performed Yes -Type of Procedure Debridement -Clinical Debridement Subcutaneous -Post Debridement Size (cm) - Length 0.9 -Post Debridement Size (cm) - Width 0.5 -Post Debridement Size (cm) - Depth 0.2 -Total Square Cm 0.45 -Wound/Ulcer Outcome Not Healed -Ulcer Cleansing Rinsed/ Irrigated with Saline -Foul Odor after Cleansing No -Bioengineered Tissue No -Bleeding Controlled with Pressure -Offloading No -Treatment Response Procedure Tolerated Well [See Physician Procedure note for Specifics] Pain Scale: 0-10 Numeric [Pain] -Is Patient Pain Free? Yes Musculoskeletal: No Muscle Wasting Psych/Mental Status: Normal Affect Debridement Note Post-Debridement Measurements/Treatment WC - Nurse 2 - General Ulcer CM Notes Start: 10/13/18 11:00 Freq: Status: Active Protocol: Activity Type Activity Date Activity User E-Sign Co-Sign Detail Recorded Client Recorded Date Recorded By Document 10/13/18 11:27 MW [id number] 10/13/18 11:29 MW 10/13/18 11:27 Wound Center Nurse 2 #3 Abd -Time 11:27 -Correct Patient Yes -Correct Side, Site, Position Yes -Correct Procedure Yes -Procedure Performed Yes -Type of Procedure Debridement -Clinical Debridement Subcutaneous -Post Debridement Size (cm) - Length 0.9 -Post Debridement Size (cm) - Width 0.5 -Post Debridement Size (cm) - Depth 0.2 -Total Square Cm 0.45 -Wound/Ulcer Outcome Not Healed -Ulcer Cleansing Rinsed/ Irrigated with Saline -Foul Odor after Cleansing No -Bioengineered Tissue No -Bleeding Controlled with Pressure -Offloading No -Treatment Response Procedure Tolerated Well Pain Scale: 0-10 Numeric Is Patient Pain Free? Yes Wound debrided: Abdominal Wound Grade/Stage: Stage III Type of Debridement: Excisional debridement Anesthesia Used: 4% Lidocaine Solution Depth: Down to and including healthy tissue, in the subcutaneous layer Percentage of wound debrided: 100 Instrument Used: 3mm curette Tissue Removed: Slough and devitalized tissue Severity: Fat Layer Exposed Amount of bleeding with debridement: Mild Bleeding Controlled with: Pressure Patient tolerated procedure well Assessment/Plan Active Problems (Last Reviewed 09/15/18 @ 10:01 by Donnie Perkins MD) Non-healing surgical wound (Chronic) Assessment: Nonhealing surgical wound dehiscence status post large bowel perforation. Type 2 diabetes mellitus. Plan: Significantly improved. Wound VAC DC'd by residential about 6 days ago. Debridement done as documented above. Procedure was well-tolerated. Okay to discontinue wound VAC. Apply Promogran daily with Adaptic over top. Continued increased protein intake strongly recommended. All the questions were answered and they were asked to call with any further questions or concerns. Follow-up in 2 weeks. This note was generated with [employer] software. It may contain incorrect words, spelling, and punctuation that were not noted in checking the note before signing.
--- OUTSIDE RECORDS SUMMARY | 2018-11-29 12:14 | XMS RPT_ITS ---
:1935 Author Organization OHIP Support Name Relationship Address Phone ARABELLA LÓPEZ Unavailable [address] + [facility] [place] [address] R Unavailable Unavailable Unavailable KINGSLEY, LOU Unavailable [address] + [place] [address] ARABELLA LÓPEZ Unavailable [address] + [place] [address] R Unavailable Unavailable Unavailable KINGSLEY, LOU Unavailable [address] + [place] [address] ARABELLA LÓPEZ Unavailable [address] + [place] [address] R Unavailable Unavailable Unavailable KINGSLEY, LOU Unavailable [address] + [place] [address] ARABELLA LÓPEZ Unavailable [address] + [place] [address] R Unavailable Unavailable Unavailable KINGSLEY, LOU Unavailable [address] + [place] [address] ARABELLA LÓPEZ Unavailable [address] + [place] [address] R Unavailable Unavailable Unavailable KINGSLEY, LOU Unavailable [address] + [place] [address] ARABELLA LÓPEZ Unavailable [address] + [place] [address] R Unavailable Unavailable Unavailable KINGSLEY, LOU Unavailable [address] + [place] [address] ARABELLA LÓPEZ Unavailable [address] + [place] [address] R Unavailable Unavailable Unavailable KINGSLEY, LOU Unavailable [address] + [place] [address] ARABELLA LÓPEZ Unavailable [address] + [facility] [place] [address] R Unavailable Unavailable Unavailable KINGSLEY, LOU Unavailable [address] + [place] [address] JACK LÓPEZDY Unavailable [address] + [facility] [place] [address] R Unavailable Unavailable Unavailable KINGSLEY, LOU Unavailable [address] + [place] [address] JACK LÓPEZDY Unavailable [address] + [place] [address] R Unavailable Unavailable Unavailable KINGSLEY, LOU Unavailable [address] + [place] [address] ARABELLA LÓPEZ Unavailable [address] + [facility] [place] [address] R Unavailable Unavailable Unavailable KINGSLEY, LOU Unavailable [address] + [place] [address] ARABELLA LÓPEZ Unavailable [address] + [facility] [place] [address] R Unavailable Unavailable Unavailable KINGSLEY, LOU Unavailable [address] + [place] [address] ARABELLA LÓPEZ Unavailable [address] + [facility] [place] [address] R Unavailable Unavailable Unavailable KINGSLEY, LOU Unavailable [address] + [place] [address] ARABELLA LÓPEZ Unavailable [address] + [facility] [place] [address] R Unavailable Unavailable Unavailable KINGSLEY, LOU Unavailable [address] + [place] [address] ARABELLA LÓPEZ Unavailable [address] + [facility] [place] [address] R Unavailable Unavailable Unavailable KINGSLEY, LOU Unavailable [address] + [place] [address] JACK LÓPEZDY Unavailable [address] + [facility] [place] [address] R Unavailable Unavailable Unavailable KINGSLEY, LOU Unavailable [address] + [place] [address] ARABELLA LÓPEZ Unavailable [address] + [place] [address] R Unavailable Unavailable Unavailable KINGSLEY, LOU Unavailable [address] + [place] [address] ARABELLA LÓPEZ Unavailable [address] + [place] [address] R Unavailable Unavailable Unavailable KINGSLEY, LOU Unavailable [address] + [place] [address] ARABELLA LÓPEZ Unavailable [address] + [facility] [place] [address] R Unavailable Unavailable Unavailable KINGSLEY, LOU Unavailable [address] + [place] [address] ARABELLA LÓPEZ Unavailable [address] + [facility] [place] [address] R Unavailable Unavailable Unavailable KINGSLEY, LOU Unavailable [address] + [place] [address] ARABELLA LÓPEZ Unavailable [address] + [facility] [place] [address] R Unavailable Unavailable Unavailable KINGSLEY, LOU Unavailable [address] + [place] [address] ARABELLA LÓPEZ Unavailable [address] + [facility] [place] [address] R Unavailable Unavailable Unavailable KINGSLEY, LOU Unavailable [address] + [place] [address] ARABELLA LÓPEZ Unavailable [address] + [facility] [place] [address] R Unavailable Unavailable Unavailable KINGSLEY, LOU Unavailable [address] + [place] [address] ARABELLA LÓPEZ Unavailable [address] + [facility] [place] [address] R Unavailable Unavailable Unavailable KINGSLEY, LOU Unavailable [address] + [place] [address] JACK LÓPEZDY Unavailable [address] + [facility] [place] [address] R Unavailable Unavailable Unavailable KINGSLEY, LOU Unavailable [address] + [place] [address] ARABELLA LÓPEZ Unavailable [address] + [facility] [place] [address] R Unavailable Unavailable Unavailable KINGSLEY, LOU Unavailable [address] + [place] [address] ARABELLA LÓPEZ Unavailable [address] + [facility] [place] [address] R Unavailable Unavailable Unavailable KINGSLEY, LOU Unavailable [address] + [place] [address] Arabella López Unavailable [address] + [facility] [place] [address] R Unavailable Unavailable Unavailable Kingsley, Lou Unavailable [address] + [place] [address] ARABELLA LÓPEZ Unavailable [address] + [facility] [place] [address] R Unavailable Unavailable Unavailable KINGSLEY, LOU Unavailable [address] + [place] [address] ARABELLA LÓPZE Unavailable [address] + [facility] [place] [address] R Unavailable Unavailable Unavailable KINGSLEY, LOU Unavailable [address] + [place] [address] ARABELLA LÓPEZ Unavailable [address] + [facility] [place] [address] R Unavailable Unavailable Unavailable KINGSLEY, LOU Unavailable [address] + [place] [address] ARABELLA LÓPEZ Unavailable [address] + [facility] [place] [address] R Unavailable Unavailable Unavailable KINGSLEY, LOU Unavailable [address] + [place] [address] Arabella López Unavailable [address] + [facility] [place] [address] R Unavailable Unavailable Unavailable Kingsley, Lou Unavailable [address] + [place] [address] Arabella López Unavailable [address] + [facility] [place] [address] R Unavailable Unavailable Unavailable Kingsley, Lou Unavailable [address] + [place] [address] Arabella López Unavailable [address] + [facility] [place] [address] R Unavailable Unavailable Unavailable Kingsley, Lou Unavailable [address] + [place] [address] Arabella López Unavailable [address] + [facility] [place] [address] R Unavailable Unavailable Unavailable Kingsley, Lou Unavailable [address] + [place] [address] Arabella López Unavailable [address] + [facility] [place] [address] R Unavailable Unavailable Unavailable Kingsley, Lou Unavailable [address] + [place] [address] Arabella López Unavailable [address] + [facility] [place] [address] R Unavailable Unavailable Unavailable Kingsley, Lou Unavailable [address] + [place] [address] Arabella López Unavailable [address] + [facility] [place] [address] R Unavailable Unavailable Unavailable Kingsley, Lou Unavailable [address] + [place] [address] Arabella López Unavailable [address] + [facility] [place] [address] R Unavailable Unavailable Unavailable Kingsley, Lou Unavailable [address] + [place] [address] Arabella López Unavailable [address] + [facility] [place] [address] R Unavailable Unavailable Unavailable Kingsley, Lou Unavailable [address] + [place] [address] Arabella López Unavailable [address] + [facility] [place] [address] R Unavailable Unavailable Unavailable Kingsley, Lou Unavailable [address] + [place] [address] Arabella López Unavailable [address] + [facility] [place] [address] R Unavailable Unavailable Unavailable Kingsley, Lou Unavailable [address] + [place] [address] Arabella López Unavailable [address] + [facility] [place] [address] R Unavailable Unavailable Unavailable Kingsley, Lou Unavailable [address] + [place] [address] Arabella López Unavailable [address] + [facility] [place] [address] R Unavailable Unavailable Unavailable Kingsley, Lou Unavailable [address] + [place] [address] Arabella López Unavailable [address] + [facility] [place] [address] R Unavailable Unavailable Unavailable Kingsley, Lou Unavailable [address] + [place] [address] Arabella López Unavailable [address] + [facility] [place] [address] R Unavailable Unavailable Unavailable Kingsley, Lou Unavailable [address] + [place] [address] Arabella López Unavailable [address] + [facility] [place] [address] R Unavailable Unavailable Unavailable Kingsley, Lou Unavailable [address] + [place] [address] Arabella López Unavailable [address] + [facility] [place] [address] R Unavailable Unavailable Unavailable Kingsley, Lou Unavailable [address] + [place] [address] Arabella López Unavailable [address] + [facility] [place] [address] R Unavailable Unavailable Unavailable Kingsley, Lou Unavailable [address] + [place] [address] Arabella López Unavailable [address] + [place] [address] R Unavailable Unavailable Unavailable Kingsley, Lou Unavailable [address] + [place] [address] Arabella López Unavailable [address] + [facility] [place] [address] R Unavailable Unavailable Unavailable Kingsley, Lou Unavailable [address] + [place] [address] Arabella López Unavailable [address] + [facility] [place] [address] R Unavailable Unavailable Unavailable Kingsley, Lou Unavailable [address] + [place] [address] Arabella López Unavailable [address] + [facility] [place] [address] R Unavailable Unavailable Unavailable Kingsley, Lou Unavailable [address] + [place] [address] Arabella López Unavailable [address] + [place] [address] R Unavailable Unavailable Unavailable Kingsley, Lou Unavailable [address] + [place] [address] Arabella López Unavailable [address] + [place] [address] R Unavailable Unavailable Unavailable Kingsley, Lou Unavailable [address] + [place] [address] Arabella López Unavailable [address] + [facility] [place] [address] R Unavailable Unavailable Unavailable Kingsley, Lou Unavailable [address] + [place] [address] Arabella López Unavailable [address] + [place] [address] R Unavailable Unavailable Unavailable Kingsley, Lou Unavailable [address] + [place] [address] Arabella López Unavailable [address] + [facility] [place] [address] R Unavailable Unavailable Unavailable Kingsley, Lou Unavailable [address] + [place] [address] Arabella López Unavailable [address] + [place] [address] R Unavailable Unavailable Unavailable Kingsley, Lou Unavailable [address] + [place] [address] Arabella López Unavailable [address] + [facility] [place] [address] R Unavailable Unavailable Unavailable Kingsley, Lou Unavailable [address] + [place] [address] Huntley, Araeblla Unavailable [address] + [facility] [place] [address] R Unavailable Unavailable Unavailable Kingsley, Lou Unavailable [address] + [place] [address] Arabella López Unavailable [address] + [facility] [place] [address] R Unavailable Unavailable Unavailable Kingsley, Lou Unavailable [address] + [place] [address] Arabella López Unavailable [address] + [place] [address] R Unavailable Unavailable Unavailable Kingsley, Lou Unavailable [address] + [place] [address] Arabella López Unavailable [address] + [facility] [place] [address] R Unavailable Unavailable Unavailable Kingsley, Lou Unavailable [address] + [place] [address] Arabella López Unavailable [address] + [facility] [place] [address] R Unavailable Unavailable Unavailable Kingsley, Lou Unavailable [address] + [place] [address] Arabella López Unavailable [address] + [facility] [place] [address] R Unavailable Unavailable Unavailable Kingsley, Lou Unavailable [address] + [place] [address] Arabella López Unavailable [address] + [facility] [place] [address] R Unavailable Unavailable Unavailable Kingsley, Lou Unavailable [address] + [place] [address] Arabella López Unavailable [address] + [facility] [place] [address] R Unavailable Unavailable Unavailable Kingsley, Lou Unavailable [address] + [place] [address] Arabella López Unavailable [address] + [facility] [place] [address] R Unavailable Unavailable Unavailable Kingsley, Lou Unavailable [address] + [place] [address] Arabella López Unavailable [address] + [place] [address] R Unavailable Unavailable Unavailable Kingsley, Lou Unavailable [address] + [place] [address] Arabella López Unavailable [address] + [place] [address] R Unavailable Unavailable Unavailable Kingsley, Lou Unavailable [address] + [place] [address] Arabella López Unavailable [address] + [place] [address] R Unavailable Unavailable Unavailable Kingsley, Lou Unavailable [address] + [place] [address] Arabella López Unavailable [address] + [place] [address] R Unavailable Unavailable Unavailable Kingsley, Lou Unavailable [address] + [place] [address] Arabella López Unavailable [address] + [place] [address] R Unavailable Unavailable Unavailable Kingsley, Lou Unavailable [address] + [place] [address] Arabella López Unavailable [address] + [place] [address] R Unavailable Unavailable Unavailable Kingsley, Lou Unavailable [address] + [place] [address] Arabella López Unavailable [address] + [place] [address] R Unavailable Unavailable Unavailable Kingsley, Lou Unavailable [address] + [place] [address] Arabella López Unavailable [address] + [place] [address] R Unavailable Unavailable Unavailable Kingsley, Lou Unavailable [address] + [place] [address] Arabella López Unavailable [address] + [place] [address] R Unavailable Unavailable Unavailable Kingsley, Lou Unavailable [address] + [place] [address] Arabella López Unavailable [address] + [place] [address] R Unavailable Unavailable Unavailable Kingsley, Lou Unavailable [address] + [place] [address] Arabella López Unavailable [address] + [facility] [place] [address] R Unavailable Unavailable Unavailable Kingsley, Lou Unavailable [address] + [place] [address] Jack Lópezdy Unavailable [address] + [facility] [place] [address] R Unavailable Unavailable Unavailable Kingsley, Lou Unavailable [address] + [place] [address] Arabella López Unavailable [address] + [place] [address] R Unavailable Unavailable Unavailable Kingsley, Lou Unavailable [address] + [place] [address] Jack Lópezdy Unavailable [address] + [place] [address] R Unavailable Unavailable Unavailable Kingsley, Lou Unavailable [address] + [place] [address] Jack Lópezdy Unavailable [address] + [place] [address] R Unavailable Unavailable Unavailable Kingsley, Lou Unavailable [address] + [place] [address] Arabella López Unavailable [address] + [place] [address] R Unavailable Unavailable Unavailable Kingsley, Lou Unavailable [address] + [place] [address] Jack Lópezdy Unavailable [address] + [place] [address] R Unavailable Unavailable Unavailable Kingsley, Lou Unavailable [address] + [place] [address] Arabella López Unavailable [address] + [place] [address] R Unavailable Unavailable Unavailable Kingsley, Lou Unavailable [address] + [place] [address] Jack Lópezdy Unavailable [address] + [place] [address] R Unavailable Unavailable Unavailable Kingsley, Lou Unavailable [address] + [place] [address] Jack Lópezdy Unavailable [address] + [facility] [place] [address] R Unavailable Unavailable Unavailable Kingsley, Lou Unavailable [address] + [place] [address] Jack Lópezdy Unavailable [address] + [facility] [place] [address] R Unavailable Unavailable Unavailable Kingsley, Lou Unavailable [address] + [place] [address] Jack Lópezdy Unavailable [address] + [facility] [place] [address] R Unavailable Unavailable Unavailable Kingsley, Lou Unavailable [address] + [place] [address] Jack Lópezdy Unavailable [address] + [place] [address] R Unavailable Unavailable Unavailable Kingsley, Lou Unavailable [address] + [place] [address] ARABELLA LÓPEZ (POA) Unavailable [address] + [facility] [place] [address] R Unavailable Unavailable Unavailable KINGSLEY LOU (POA) Unavailable [address] + [place] [address] Jack Lópezdy Unavailable [address] + [facility] [place] [address] R Unavailable Unavailable Unavailable Kingsley, Lou Unavailable [address] + [place] [address] MaribelJack pateldy Unavailable [address] + [facility] [place] [address] R Unavailable Unavailable Unavailable Kingsley, Lou Unavailable [address] + [place] [address] JACK LÓPEZDY (POA) Unavailable [address] + [facility] [place] [address] R Unavailable Unavailable Unavailable KINGSLEY, LOU (POA) Unavailable [address] + [place] [address] JACK LÓPEZDY (POA) Unavailable [address] + [facility] [place] [address] R Unavailable Unavailable Unavailable KINGSLEY, LOU (POA) Unavailable [address] + [place] [address] ARABELLA LÓPEZ (POA) Unavailable [address] + [facility] [place] [address] R Unavailable Unavailable Unavailable KINGSLEY, LOU (POA) Unavailable [address] + [place] [address] Arabella López Unavailable [address] + [facility] [place] [address] R Unavailable Unavailable Unavailable Kingsley, Lou Unavailable [address] + [place] [address] ARABELLA LÓPEZ (POA) Unavailable [address] + [facility] [place] [address] R Unavailable Unavailable Unavailable KINGSLEY, LOU (POA) Unavailable [address] + [place] [address] ARABELLA LÓPEZ (POA) Unavailable [address] + [place] [address] R Unavailable Unavailable Unavailable KINGSLEY LOU (POA) Unavailable [address] + [place] [address] Arabella López Unavailable [address] + [facility] [place] [address] R Unavailable Unavailable Unavailable Kingsley, Lou Unavailable [address] + [place] [address] Arabella López Unavailable [address] + [facility] [place] [address] R Unavailable Unavailable Unavailable Kingsley, Lou Unavailable [address] + [place] [address] Arabella López Unavailable [address] + [facility] [place] [address] R Unavailable Unavailable Unavailable Kingsley, Lou Unavailable [address] + [place] [address] Arabella López Unavailable [address] + [facility] [place] [address] R Unavailable Unavailable Unavailable Kingsley, Lou Unavailable [address] + [place] [address] Arabella López Unavailable [address] + [place] [address] R Unavailable Unavailable Unavailable Kingsley, Lou Unavailable [address] + [place] [address] aJck Lópezdy Unavailable [address] + [place] [address] R Unavailable Unavailable Unavailable Kingsley, Lou Unavailable [address] + [place] [address] Jack Lópezdy Unavailable [address] + [place] [address] R Unavailable Unavailable Unavailable Kingsley, Lou Unavailable [address] + [place] [address] Jack Lópezdy Unavailable [address] + [place] [address] R Unavailable Unavailable Unavailable Kingsley, Lou Unavailable [address] + [place] [address] Jack Lópezdy Unavailable [address] + [place] [address] R Unavailable Unavailable Unavailable Kingsley, Lou Unavailable [address] + [place] [address] Jack Lópezdy Unavailable [address] + [place] [address] R Unavailable Unavailable Unavailable Kingsley, Lou Unavailable [address] + [place] [address] Arabella López Unavailable [address] + [place] [address] R Unavailable Unavailable Unavailable Kingsley, Lou Unavailable [address] + [place] [address] Jack Lópezdy Unavailable [address] + [place] [address] R Unavailable Unavailable Unavailable Kingsley, Lou Unavailable [address] + [place] [address] Jack Lópezdy Unavailable [address] +[phone] [place] [address] R Unavailable Unavailable Unavailable Kingsley, Lou Unavailable [address] [facility] [address] + [place] [address] Care Team Providers Name Role Phone Clement Bueno Attending Unavailable Zackery, Clement Attending Unavailable Zackery, Clement Attending Unavailable Ousmane Almanza Attending Unavailable Clement Bueno Primary Care Unavailable Ousmane Almanza Attending Unavailable Ousmane Almanza Referring Unavailable Zackery, Clement Attending Unavailable Victoria Fu Attending Unavailable Tracy Jones Attending Unavailable Tracy Jones Attending Unavailable Charly Ross Attending Unavailable Benja, Tracy Referring Unavailable Benja, Tracy Primary Care Unavailable Benja, Tracy Primary Care Unavailable Ashelfah, Ghasem Admitting Unavailable Yefri Bartholomew Attending Unavailable Charly Ross Consulting Unavailable Benja, Tracy Primary Care Unavailable Jereim Rosales Attending Unavailable Zackery, Clement Attending Unavailable Zackery, Clement Attending Unavailable Ashelfah, Ghasem Admitting Unavailable Ashelfah, Ghasem Attending Unavailable Benja, Tracy Primary Care Unavailable Ashelfah, Ghasem Consulting Unavailable Ashelfah, Ghasem Admitting Unavailable Benja, Tracy Primary Care Unavailable Cody Chalry Consulting Unavailable Yefri Bartholomew Attending Unavailable Puma, Yefri Consulting Unavailable Ashelfah, Ghasem Admitting Unavailable Charly Ross Attending Unavailable Benja, Tracy Primary Care Unavailable Cody Charly Consulting Unavailable Puma, Yefri Consulting Unavailable Yefri Bartholomew Attending Unavailable Ashelfah, Ghasem Admitting Unavailable Benja, Tracy Primary Care Unavailable Charly Ross Consulting Unavailable Puma, Yefri Consulting Unavailable Ashelfah, Ghasem Referring Unavailable Charly Ross Attending Unavailable Markus Cueto Attending Unavailable Tracy Jones Attending Unavailable Benja, Tracy Primary Care Unavailable Elise, Jone Admitting Unavailable Koram, Margoth Tia Attending Unavailable Norman, Pat Consulting Unavailable Elise, Jone Admitting Unavailable Benja, Tracy Primary Care Unavailable Elise, Jone Consulting Unavailable Kasandra Almendarez Attending Unavailable Elise, Jone Admitting Unavailable Norman, Pat Attending Unavailable Benja, Tracy Primary Care Unavailable Norman, Pat Consulting Unavailable Koram, Margoth Tia Consulting Unavailable Elise, Jone Admitting Unavailable Koram, Margoth Tia Attending Unavailable Benja, Tracy Primary Care Unavailable Norman, Pat Consulting Unavailable Koram, Margoth Tia Consulting Unavailable Victoria Lambert Attending Unavailable Benja, Tracy Referring Unavailable Benja, Tracy Primary Care Unavailable Clement Coleman Attending Unavailable Benja, Tracy Referring Unavailable Charly San Attending Unavailable [facility] Unavailable Benja, Tracy Attending Unavailable Moodoriana, Charly Attending Unavailable Jone Olivares Referring Unavailable [facility] Attending Unavailable [facility] Unavailable IonJuan Jose orellana Consulting Unavailable Paintsil, Lenore Admitting Unavailable Kasandra Almendarez Attending Unavailable Robotham, Aurora Consulting Unavailable Moodispaw, Charly Consulting Unavailable Shasha, Lokesh Consulting Unavailable Paintsil, Lenore Admitting Unavailable Robotham, Aurora Attending Unavailable [facility] Unavailable IonJuan Jose orellana Consulting Unavailable Ion Juan Jose Referring Unavailable Paintsil, Lenore Consulting Unavailable Paintsil, Lenore Admitting Unavailable Paintsil, Lenore Attending Unavailable [facility] Unavailable IonJuan Jose orellana Consulting Unavailable Robotham, Aurora Consulting Unavailable Paintsil, Lenore Consulting Unavailable Paintsil, Lenore Admitting Unavailable Rob[place], Aurora Attending Unavailable [facility] Unavailable Ion, Juan Jose Consulting Unavailable Roboth[place], Aurora Consulting Unavailable Paintsil, Lenore Consulting Unavailable Paintsil, Lenore Admitting Unavailable Paintsil, Lenore Attending Unavailable [facility] Unavailable IonJuan Jose Consulting Unavailable Robotham, Aurora Consulting Unavailable Paintsil, Lenore Consulting Unavailable Paintsil, Lenore Admitting Unavailable [place], Aurora Attending Unavailable [facility] Unavailable IonJuan Jose orellana Consulting Unavailable Robotham, Aurora Consulting Unavailable Paintsil, Lenore Consulting Unavailable Paintsil, Lenore Admitting Unavailable Paintsil, Lenore Attending Unavailable [facility] Unavailable IonJuan Jose Consulting Unavailable [place], Aurora Consulting Unavailable Moodispaw, Charly Consulting Unavailable Paintsil, Lenore Consulting Unavailable Paintsil, Lenore Admitting Unavailable Moodisp[place], Charly Attending Unavailable [facility] Unavailable Ion, Juan Jose Consulting Unavailable [place], Aurora Consulting Unavailable Moodisp[place], Charly Consulting Unavailable Paintsil, Lenore Consulting Unavailable Paintsil, Lenore Admitting Unavailable Rob[place], Aurora Attending Unavailable [facility] Unavailable Ion, Juan Jose Consulting Unavailable Roboth[place], Aurora Consulting Unavailable Moodisp[place], Charly Consulting Unavailable Paintsil, Lenore Consulting Unavailable Paintsil, Lenore Admitting Unavailable Paintsil, Lenore Attending Unavailable [facility] Unavailable Ion, Juan Jose Consulting Unavailable Roboth[place], Aurora Consulting Unavailable Moodispaw, Charly Consulting Unavailable Paintsil, Lenore Consulting Unavailable Paintsil, Lenore Admitting Unavailable [place]isp[place], Charly Attending Unavailable [facility] Unavailable Ion, Juan Jose Consulting Unavailable Robotham, Aurora Consulting Unavailable [place], Charly Consulting Unavailable Paintsil, Lenore Consulting Unavailable Paintsil, Lenore Admitting Unavailable Nathen Church Attending Unavailable [facility] Unavailable Ion, Juan Jose Consulting Unavailable Roboth[place], Aurora Consulting Unavailable [place], Charly Consulting Unavailable Paintsil, Lenore Consulting Unavailable Paintsil, Lenore Admitting Unavailable Paintsil, Lenore Attending Unavailable [facility] Unavailable Ion, Juan Jose Consulting Unavailable Robotham, Aurora Consulting Unavailable Moodisp[place], Charly Consulting Unavailable Paintsil, Lenore Consulting Unavailable Paintsil, Lenore Admitting Unavailable Pat Austin Attending Unavailable [facility] Unavailable Ion, Juan Jose Consulting Unavailable Robotham, Aurora Consulting Unavailable [place], Charly Consulting Unavailable Paintsil, Lenore Consulting Unavailable Paintsil, Lenore Admitting Unavailable Nathen Church Attending Unavailable [facility] Unavailable Ion, Juan Jose Consulting Unavailable Robotham, Aurora Consulting Unavailable [place], Charly Consulting Unavailable Paintsil, Lenore Consulting Unavailable Paintsil, Lenore Admitting Unavailable Paintsil, Lenore Attending Unavailable [facility] Unavailable Ion, Juan Jose Consulting Unavailable Robotham, Aurora Consulting Unavailable Moodisp[place], Charly Consulting Unavailable Paintsil, Lenore Consulting Unavailable Paintsil, Lenore Admitting Unavailable Robotham, Aurora Attending Unavailable [facility] Unavailable Ion, Juan Jose Consulting Unavailable Robotham, Aurora Consulting Unavailable Moodisp[place], Charly Consulting Unavailable Arnaud Lewis Consulting Unavailable Paintsil, Lenore Admitting Unavailable Moodisp[place], Charly Attending Unavailable [facility] Unavailable Ion, Juan Jose Consulting Unavailable Robotham, Aurora Consulting Unavailable Moodisp[place], Charly Consulting Unavailable Arnaud Lewis Consulting Unavailable Paintsil, Lenore Admitting Unavailable Arnaud Lewis Attending Unavailable [facility] Unavailable Juan Jose Lemon Consulting Unavailable Robotham, Aurora Consulting Unavailable [place]isp[place], Charly Consulting Unavailable KittoArnaud gay Consulting Unavailable Paintsil, Lenore Admitting Unavailable Robotham, Aurora Attending Unavailable [facility] Unavailable Ion, Juan Jose Consulting Unavailable IonJuan Jose Referring Unavailable Robotham, Aurora Consulting Unavailable Moodispaw, Charly Consulting Unavailable KittoeArnaud Consulting Unavailable Paintsil, Lenore Admitting Unavailable KittoeArnaud Attending Unavailable [facility] Unavailable Ion, Juan Jose Consulting Unavailable Robotham, Aurora Consulting Unavailable Moodispaw, Charly Consulting Unavailable KittoeArnaud Consulting Unavailable Paintsil, Lenore Admitting Unavailable Moodispaw, Charly Attending Unavailable [facility] Unavailable Ion, Juan Jose Consulting Unavailable Robotham, Aurora Consulting Unavailable Moodisp[place], Charly Consulting Unavailable KittoeArnaud Consulting Unavailable Paintsil, Lenore Admitting Unavailable Robotham, Aurora Attending Unavailable [facility] Unavailable Juan Jose Lemon Consulting Unavailable Robotham, Aurora Consulting Unavailable Moodisp[place], Charly Consulting Unavailable Arnaud Lewis Consulting Unavailable Paintsil, Lenore Admitting Unavailable KittoArnaud gay Attending Unavailable [facility] Unavailable Ion, Juan Jose Consulting Unavailable Robotham, Aurora Consulting Unavailable Moodispaw, Charly Consulting Unavailable Lokesh Pulliam Consulting Unavailable HugotoArnaud gay Consulting Unavailable Paintsil, Lenore Admitting Unavailable Moodispaw, Charly Attending Unavailable [facility] Unavailable Juan Jose Lemon Consulting Unavailable Robotham, Aurora Consulting Unavailable Mood[place], Charly Consulting Unavailable Lokesh Pulliam Consulting Unavailable KittoArnaud gay Consulting Unavailable Paintsil, Lenore Admitting Unavailable Robotham, Aurora Attending Unavailable [facility] Unavailable IonJuan Jose orellana Consulting Unavailable Robotham, Aurora Consulting Unavailable [place], Charly Consulting Unavailable Lokesh Pulliam Consulting Unavailable Arnaud Lewis Consulting Unavailable Paintsil, Lenore Admitting Unavailable Moodispaw, Charly Attending Unavailable [facility] Unavailable IonJuan Jose Consulting Unavailable Robotham, Aurora Consulting Unavailable Moodisp[place], Charly Consulting Unavailable Shasha, Lokesh Consulting Unavailable Arnaud Lewis Consulting Unavailable Paintsil, Lenore Admitting Unavailable KittoArnaud gay Attending Unavailable [facility] Unavailable IonJuan Jose orellana Consulting Unavailable Robotham, Aurora Consulting Unavailable Moodispaw, Charly Consulting Unavailable Shasha, Lokesh Consulting Unavailable Kittoe, Arnaud Consulting Unavailable Paintsil, Lenore Admitting Unavailable Robotham, Aurora Attending Unavailable [facility] Unavailable Ion, Juan Jose Consulting Unavailable Robotham, Aurora Consulting Unavailable Moodispaw, Charly Consulting Unavailable Shasha, Lokesh Consulting Unavailable Kittoe, Arnaud Consulting Unavailable Paintsil, Lenore Admitting Unavailable KittoeArnaud Attending Unavailable [facility] Unavailable Ion, Juan Jose Consulting Unavailable Robotham, Aurora Consulting Unavailable Moodispaw, Charly Consulting Unavailable Shasha, Lokesh Consulting Unavailable Kittoe, Arnaud Consulting Unavailable Paintsil, Lenore Admitting Unavailable Robotham, Aurora Attending Unavailable [facility] Unavailable Ion, Juan Jose Consulting Unavailable Robotham, Aurora Consulting Unavailable Moodispaw, Charly Consulting Unavailable Shasha, Lokesh Consulting Unavailable Kittoe, Arnaud Consulting Unavailable Paintsil, Lenore Admitting Unavailable KittoeArnaud Attending Unavailable [facility] Unavailable Juan Jose Lemon Consulting Unavailable Robotham, Aurora Consulting Unavailable Moodisp[place], Charly Consulting Unavailable Shasha, Lokesh Consulting Unavailable Kittoe, Arnaud Consulting Unavailable Paintsil, Lenore Admitting Unavailable Moodispaw, Charly Attending Unavailable [facility] Unavailable Ion, Juan Jose Consulting Unavailable Robotham, Aurora Consulting Unavailable Moodispaw, Charly Consulting Unavailable Shasha, Lokesh Consulting Unavailable Kittoe, Arnaud Consulting Unavailable Paintsil, Lenore Admitting Unavailable Robotham, Aurora Attending Unavailable [facility] Unavailable Juan Jose Lemon Consulting Unavailable Robotham, Aurora Consulting Unavailable Moodisp[place], Charly Consulting Unavailable Shasha, Lokesh Consulting Unavailable Kittoe, Arnaud Consulting Unavailable Paintsil, Lenore Admitting Unavailable Kittoe, Arnaud Attending Unavailable [facility] Unavailable Ion, Juan Jose Consulting Unavailable Robotham, Aurora Consulting Unavailable Moodispaw, Charly Consulting Unavailable Shasha, Lokesh Consulting Unavailable Kittoe, Arnaud Consulting Unavailable Paintsil, Lenore Admitting Unavailable Moodispaw, Charly Attending Unavailable [facility] Unavailable IonJuan Jose orellana Consulting Unavailable Robotham, Aurora Consulting Unavailable Moodispaw, Charly Consulting Unavailable Shasha, Lokesh Consulting Unavailable Kittoe, Arnaud Consulting Unavailable Paintsil, Lenore Admitting Unavailable Robotham, Aurora Attending Unavailable [facility] Unavailable IonJuan Jose orellana Consulting Unavailable Robotham, Aurora Consulting Unavailable Moodispaw, Charly Consulting Unavailable Shasha, Lokesh Consulting Unavailable Paintsil, Lenore Consulting Unavailable Paintsil, Lenore Admitting Unavailable Moodispaw, Charly Attending Unavailable [facility] Unavailable IonJuan Jose Consulting Unavailable Robotham, Aurora Consulting Unavailable Moodispaw, Charly Consulting Unavailable Shasha, Lokesh Consulting Unavailable Paintsil, Lenore Consulting Unavailable Paintsil, Lenore Admitting Unavailable Paintsil, Lenore Attending Unavailable [facility] Unavailable IonJuan Jose orellana Consulting Unavailable Robotham, Aurora Consulting Unavailable Moodispaw, Charly Consulting Unavailable Shasha, Lokesh Consulting Unavailable Paintsil, Lenore Consulting Unavailable Paintsil, Lenore Admitting Unavailable Robotham, Aurora Attending Unavailable [facility] Unavailable IonJuan Jose orellana Consulting Unavailable Robotham, Aurora Consulting Unavailable Moodispaw, Charly Consulting Unavailable Shasha, Lokesh Consulting Unavailable Paintsil, Lenore Consulting Unavailable Paintsil, Lenore Admitting Unavailable Paintsil, Lenore Attending Unavailable [facility] Unavailable Juan Jose Lemon Consulting Unavailable Robotham, Aurora Consulting Unavailable Moodispaw, Charly Consulting Unavailable Shasha, Lokesh Consulting Unavailable Paintsil, Lenore Consulting Unavailable Paintsil, Lenore Admitting Unavailable Robotham, Aurora Attending Unavailable [facility] Unavailable IonJuan Jose orellana Consulting Unavailable Robotham, Aurora Consulting Unavailable Moodispaw, Charly Consulting Unavailable Shasha, Lokesh Consulting Unavailable Paintsil, Lenore Consulting Unavailable Paintsil, Lenore Admitting Unavailable Paintsil, Lenore Attending Unavailable [facility] Unavailable IonJuan Jose orellana Consulting Unavailable Robotham, Aurora Consulting Unavailable Moodispaw, Charly Consulting Unavailable Shasha, Lokehs Consulting Unavailable Paintsil, Lenore Consulting Unavailable Paintsil, Lenore Admitting Unavailable Deborah Knapp PA-C Attending Unavailable [facility] Unavailable IonJuan Jose orellana Consulting Unavailable Robotham, Aurora Consulting Unavailable Moodispaw, Charly Consulting Unavailable Shasha, Lokesh Consulting Unavailable Kasandra Almendarez Consulting Unavailable Kasandra Almendarez Attending Unavailable Paintsil, Lenore Admitting Unavailable [facility] Unavailable IonJuan Jose orellana Consulting Unavailable Robotham, Aurora Consulting Unavailable Moodispaw, Charly Consulting Unavailable Shasha, Lokesh Consulting Unavailable White, Kasandra Consulting Unavailable White, Kasandra Attending Unavailable Paintsil, Lenore Admitting Unavailable Bueno, Clement Primary [facility] Unavailable Ion, Juan Jose Consulting Unavailable Robotham, Aurora Consulting Unavailable Moodispaw, Charly Consulting Unavailable Shasha, Lokesh Consulting Unavailable White, Kasandra Consulting Unavailable Bueno, Clement Attending Unavailable Bueno, Clement Attending Unavailable Bueno, Clement Attending Unavailable Nory, Markus Attending Unavailable Victoria Lambert Attending Unavailable Bueno, Clement Referring Unavailable Robotham, Aurora Attending Unavailable Bueno, Clement Referring Unavailable Bueno, Clement Attending Unavailable Oleghe, Rommelbe Attending Unavailable Bueno, Clement Primary Care Unavailable Oleghe, Pakoewradhabe Attending Unavailable Oleghe, Efewongbe Referring Unavailable IonJuan Jose Attending Unavailable Robotham, Aurora Referring Unavailable Bueno, Clement Attending Unavailable Bueno, Clement Attending Unavailable Robotham, Aurora Attending Unavailable Bueno, Clement Referring Unavailable Bueno, Clement Attending Unavailable Oleghe, Rommelbe Attending Unavailable Bueno, Clement Primary Care Unavailable Bueno, Clement Attending Unavailable Bueno, Clement Attending Unavailable Bueno, Clement Attending Unavailable Bueno, Clement Attending Unavailable Bueno, Clement Attending Unavailable Bueno, Clement Attending Unavailable Bueno, Clement Primary Care Unavailable Ion, Juan Jose Consulting Unavailable Ashelfah, Ghasem Admitting Unavailable Eriberto Huang Attending Unavailable Perkins, Donnie Consulting Unavailable Ashelfah, Ghasem Admitting Unavailable Ashelfah, Ghasem Attending Unavailable [place], Clement Primary Care Unavailable Ion, Juan Jose Consulting Unavailable Perkins, Donnie Consulting Unavailable Ashelfah, Ghasem Consulting Unavailable Ashelfah, Ghasem Admitting Unavailable Juan Jose Lemon Attending Unavailable [place], Clement Primary Care Unavailable Ion, Juan Jose Consulting Unavailable Perkins, Donnie Consulting Unavailable Ashelfah, Ghasem Consulting Unavailable Ashelfah, Ghasem Admitting Unavailable Ashelfah, Ghasem Attending Unavailable [place], Clement Primary Care Unavailable Ion, Juan Jose Consulting Unavailable Perkins, Donnie Consulting Unavailable Ashelfah, Ghasem Consulting Unavailable Ashelfah, Ghasem Admitting Unavailable Ion Juan Jose Attending Unavailable Bueno, Clement Primary Care Unavailable Ion, Juan Jose Consulting Unavailable Perkins, Donnie Consulting Unavailable Ashelfah, Ghasem Consulting Unavailable Ashelfah, Ghasem Admitting Unavailable Ashelfah, Ghasem Attending Unavailable [place], Clement Primary Care Unavailable Ion, Juan Jose Consulting Unavailable Perkins, Donnie Consulting Unavailable Ashelfah, Ghasem Consulting Unavailable Ashelfah, Ghasem Admitting Unavailable Ion, Juan Jose Attending Unavailable Bueno, Clement Primary Care Unavailable Ion, Juan Jose Consulting Unavailable Perkins, Donnie Consulting Unavailable Ashelfah, Ghasem Consulting Unavailable Ashelfah, Ghasem Admitting Unavailable Ashelfah, Ghasem Attending Unavailable Bueno, Clement Primary Care Unavailable Ion, Juan Jose Consulting Unavailable Perkins, Donnie Consulting Unavailable Ashelfah, Ghasem Consulting Unavailable Ashelfah, Ghasem Admitting Unavailable Ion, Juan Jose Attending Unavailable Bueno, Clement Primary Care Unavailable Ion, Juan Jose Consulting Unavailable Perkins, Donnie Consulting Unavailable Ashelfah, Ghasem Consulting Unavailable Ashelfah, Ghasem Admitting Unavailable Ashelfah, Ghasem Attending Unavailable Bueno, Clement Primary Care Unavailable Ion, Juan Jose Consulting Unavailable Perkins, Donnie Consulting Unavailable Ashelfah, Ghasem Consulting Unavailable Ashelfah, Ghasem Admitting Unavailable Sal, Eriberto Attending Unavailable Bueno, Clement Primary Care Unavailable Ion, Juan Jose Consulting Unavailable Perkins, Donnie Consulting Unavailable Sal, Eriberto Consulting Unavailable Zackery, Clement Attending Unavailable Ousmane Almanza Attending Unavailable Pako Almanzaewongbe Referring Unavailable Zackery, Clement Attending Unavailable Rommel Almanzabe Attending Unavailable Clement Bueno Primary Care Unavailable Bueno, Clement Attending Unavailable Bueno, Clement Attending Unavailable PROBLEMS PROBLEMS DATE TYPE CONDITION / CODE ATTENDING STATUS SOURCE 11/22/2018 Unknown D64.9 - Anemia, Clement Bueno Active [facility] unspecified / Community D64.9(ICD-10) Hospital Repository 11/22/2018 Unknown E11.9 - Type 2 Clement Bueno Active [facility] [place] diabetes mellitus Community without complications Hospital / E11.9(ICD-10) Repository 11/22/2018 Unknown E78.5 - Clement Bueno Active [facility] [place] Hyperlipidemia, Community unspecified / Hospital E78.5(ICD-10) Repository 11/22/2018 Unknown E03.9 - Clement Bueno Active [facility] Hypothyroidism, Community unspecified / Hospital E03.9(ICD-10) Repository 11/08/2018 Unknown J44.9 - Chronic Clement Bueno Active [facility] obstructive pulmonary Community disease, unspecified / Hospital J44.9(ICD-10) Repository 11/03/2018 Unknown T81.89XA - Other Oleghe, Active [facility] complications of [place] Community procedures, not Hospital elsewhere classified, Repository initial encounter / T81.89XA(ICD-10) 11/15/2018 Unknown G40.901 - Epilepsy, Sal, Eriberto Active [place] unspecified, not Community intractable, with Hospital status epilepticus / Repository G40.901(ICD-10) 09/22/2018 Unknown T81.32XA - Disruption Oleghe, Active [facility] of internal operation [facility] (surgical) wound, not Hospital elsewhere classified, Repository initial encounter / T81.32XA(ICD-10) 09/22/2018 Unknown K63.1 - Perforation of Oleghe, Active [place] intestine [facility] (nontraumatic) / Hospital K63.1(ICD-10) Repository 08/20/2018 Unknown S31.109A - Unspecified Robotham, Active [place] open wound of [facility] abdominal wall, Hospital unspecified quadrant Repository without penetration into peritoneal cavity, initial encounter / S31.109A(ICD-10) 08/16/2018 Unknown R94.31 - Abnormal Nory, Markus Active [facility] electrocardiogram Community [ECG] [EKG] / Hospital R94.31(ICD-10) Repository 08/27/2018 Unknown A41.89 - Other Ion, Juan Jose Active [facility] specified sepsis / Community A41.89(ICD-10) Hospital Repository 08/27/2018 Unknown R65.21 - Severe sepsis Ion, Juan Jose Active [facility] with septic shock / Community R65.21(ICD-10) Hospital Repository 08/27/2018 Unknown J96.01 - Acute Ion, Juan Jose Active [facility] [place] respiratory failure Community with hypoxia / Hospital J96.01(ICD-10) Repository 08/27/2018 Unknown E11.22 - Type 2 Ion, Juan Jose Active [place]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 / Repository E11.22(ICD-10) 08/27/2018 Unknown N18.3 - Chronic kidney Ion, Juan Jose Active [facility] [place] disease, stage 3 Community (moderate) / Hospital N18.3(ICD-10) Repository 08/04/2018 Unknown R00.2 - Palpitations / Jaswinder Charly Active [facility](ICD[facility]10) [facility] 06/23/2018 Unknown 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, 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 / I25.10(ICD-10) 06/23/2018 Unknown I47.1 - [place], Active [place] Supraventricular [facility] tachycardia / Hospital I47.1(ICD-10) Repository 06/23/2018 Unknown R06.02 - Shortness of [place], Active [facility] breath / [facility] R06.02(ICD-10) Hospital Repository 03/01/2018 Unknown I36.1 - Nonrheumatic [place], Active [facility] 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 / Hospital I36.1(ICD-10) Repository 03/01/2018 Unknown I51.81 - Takotsubo Moodispaw, Active [facility] syndrome / [facility] I51.81(ICD-10) Hospital Repository 03/01/2018 Unknown I34.0 - Nonrheumatic [place], Active [place] mitral (valve) [facility] insufficiency / Hospital I34.0(ICD-10) Repository 04/27/2018 Unknown N17.9 - Acute kidney Tracy Jones Active [place] failure, unspecified / Community N17.9(ICD-10) Hospital Repository PROCEDURES PROCEDURES No Procedure Records FoundRESULTS RESULTS BASIC METABOLIC Collected: 11/22/2018 Status: F Source: [facility] PROFILE (BMP) 6:15 AM [facility] REPOSITORY TYPE CODE TESTS RESULT OUT OF RANGE REFERENCE UNITS LAB L501.0100 74-106 mg/dL High GLU 152 Result Comment: Fasting Glucose result greater than or equal to 126 mg/dL suggests DIABETES MELLITUS per A.D.A. criteria. Please note revised GLUCOSE reference range effective 2017. LAB L501.1000 7-18 mg/dL High BUN 26 LAB L501.1100 0.55-1.02 mg/dL High CREAT,SERUM 1.28 Result Comment: The validity of the calculated GFR AND GFRAA in patients over 70 years has not been determined. Clinical correlation is essential. LAB L501.1110 >60 mL/min Low EST GFR 42 Result Comment: Non- GFR Calc LAB L501.1115 >60 mL/min Low EST GFR - AA 51 Result Comment: GFR Calc LAB L501.1300 10-20 RATIO High BUN/CRE 20.3 LAB L501.2200 8.5-10.1 mg/dL Low CA 8.4 LAB L501.5300 136-145 mmol/L NA Normal 139 LAB L501.5600 3.5-5.1 mmol/L K Normal 4.5 LAB L501.5900 98-107 mmol/L CL Normal 104 LAB L501.6100 21.0-32.0 mmol/L Normal CO2 28.0 LAB L501.6200 5-15 Normal GAP 7 Performed By: #### L500.2500 #### [facility] [address] [place], [address] CBC-COMPLETE BLOOD CNT Collected: 11/22/2018 Status: F Source: [facility] NO DIFF 6:15 AM [facility] REPOSITORY TYPE CODE TESTS RESULT OUT OF RANGE REFERENCE UNITS LAB L100.1000 4.4-11.0 K/mm3 Normal WBC 7.4 LAB L100.1200 4.2-5.4 M/mm3 Low RBC 2.78 LAB L100.1300 12.0-15.0 g/dl Low HGB 8.9 LAB L100.1400 37-47 % Low HCT 28.0 LAB L100.1500 81-99 fL High MCV 100.7 LAB L100.1600 27.0-32.0 pg Normal MCH 32.0 LAB L100.1700 32-36 g/gl Low MCHC 31.8 LAB L100.1810 11.6-14.6 % High RDW CV 16.4 LAB L100.1820 35.1-43.9 fl High RDW SD 60.7 LAB L100.1900 150-450 K/mm3 Normal PLT 226 LAB L100.2000 6.2-12.0 fl Normal MPV 8.9 Performed By: #### L100.0500 #### [facility] [address] [place], [place], [address] BASIC METABOLIC Collected: 11/15/2018 Status: F Source: GISSEL PROFILE (BMP) 6:50 AM [facility] REPOSITORY Order Comment: 305-1 TYPE CODE TESTS RESULT OUT OF RANGE REFERENCE UNITS LAB L501.0100 74-106 mg/dL High GLU 152 Result Comment: Fasting Glucose result greater than or equal to 126 mg/dL suggests DIABETES MELLITUS per A.D.A. criteria. Please note revised GLUCOSE reference range effective 2017. LAB L501.1000 7-18 mg/dL High BUN 32 LAB L501.1100 0.55-1.02 mg/dL High CREAT,SERUM 1.36 Result Comment: The validity of the calculated GFR AND GFRAA in patients over 70 years has not been determined. Clinical correlation is essential. LAB L501.1110 >60 mL/min Low EST GFR 40 Result Comment: Non- GFR Calc LAB L501.1115 >60 mL/min Low EST GFR - AA 48 Result Comment: GFR Calc LAB L501.1300 10-20 RATIO High BUN/CRE 23.5 LAB L501.2200 8.5-10.1 mg/dL CA Normal 8.9 LAB L501.5300 136-145 mmol/L NA Normal 141 LAB L501.5600 3.5-5.1 mmol/L K Normal 4.5 LAB L501.5900 98-107 mmol/L CL Normal 104 LAB L501.6100 21.0-32.0 mmol/L Normal CO2 29.0 LAB L501.6200 5-15 Normal GAP 8 Performed By: #### L500.2500 #### [facility] [address] [place], [address] CBC-COMPLETE BLOOD CNT Collected: 11/15/2018 Status: F Source: GISSEL NO DIFF 6:50 AM [facility] REPOSITORY TYPE CODE TESTS RESULT OUT OF RANGE REFERENCE UNITS LAB L100.1000 4.4-11.0 K/mm3 Normal WBC 9.2 LAB L100.1200 4.2-5.4 M/mm3 Low RBC 3.08 LAB L100.1300 12.0-15.0 g/dl Low HGB 9.8 LAB L100.1400 37-47 % Low HCT 31.4 LAB L100.1500 81-99 fL High MCV 101.9 LAB L100.1600 27.0-32.0 pg Normal MCH 31.8 LAB L100.1700 32-36 g/gl Low MCHC 31.2 LAB L100.1810 11.6-14.6 % High RDW CV 15.9 LAB L100.1820 35.1-43.9 fl High RDW SD 57.9 LAB L100.1900 150-450 K/mm3 Normal PLT 287 LAB L100.2000 6.2-12.0 fl Normal MPV 9.4 Performed By: #### L100.0500 #### [facility] [address] [place], [place], [address] BASIC METABOLIC Collected: 11/08/2018 Status: F Source: GISSEL PROFILE (BMP) 5:45 AM [facility] REPOSITORY Order Comment: ROOM 305-1 TYPE CODE TESTS RESULT OUT OF RANGE REFERENCE UNITS LAB L501.0100 74-106 mg/dL Low GLU 69 Result Comment: Please note revised GLUCOSE reference range effective 2017. LAB L501.1000 7-18 mg/dL High BUN 27 LAB L501.1100 0.55-1.02 mg/dL High CREAT,SERUM 1.25 Result Comment: The validity of the calculated GFR AND GFRAA in patients over 70 years has not been determined. Clinical correlation is essential. LAB L501.1110 >60 mL/min Low EST GFR 44 Result Comment: Non- GFR Calc LAB L501.1115 >60 mL/min Low EST GFR - AA 53 Result Comment: GFR Calc LAB L501.1300 10-20 RATIO High BUN/CRE 21.6 LAB L501.2200 8.5-10.1 mg/dL CA Normal 9.0 LAB L501.5300 136-145 mmol/L NA Normal 143 LAB L501.5600 3.5-5.1 mmol/L K Normal 4.4 LAB L501.5900 98-107 mmol/L CL Normal 106 LAB L501.6100 21.0-32.0 mmol/L Normal CO2 29.0 LAB L501.6200 5-15 Normal GAP 8 Performed By: #### L500.2500 #### [facility] [address] [place], [address] CBC-COMPLETE BLOOD CNT Collected: 11/08/2018 Status: F Source: GISSEL NO DIFF 5:45 AM [facility] REPOSITORY Order Comment: ROOM 305-1 TYPE CODE TESTS RESULT OUT OF RANGE REFERENCE UNITS LAB L100.1000 4.4-11.0 K/mm3 Normal WBC 7.5 LAB L100.1200 4.2-5.4 M/mm3 Low RBC 3.02 LAB L100.1300 12.0-15.0 g/dl Low HGB 9.6 LAB L100.1400 37-47 % Low HCT 30.3 LAB L100.1500 81-99 fL High MCV 100.3 LAB L100.1600 27.0-32.0 pg Normal MCH 31.8 LAB L100.1700 32-36 g/gl Low MCHC 31.7 LAB L100.1810 11.6-14.6 % High RDW CV 17.5 LAB L100.1820 35.1-43.9 fl High RDW SD 64.1 LAB L100.1900 150-450 K/mm3 Normal PLT 209 LAB L100.2000 6.2-12.0 fl Normal MPV 9.1 Performed By: #### L100.0500 #### [facility] [address] [place], [place], [id number] CBC-COMPLETE BLOOD CNT Collected: 11/01/2018 Status: F Source: GISSEL NO DIFF 5:00 AM [facility] REPOSITORY TYPE CODE TESTS RESULT OUT OF RANGE REFERENCE UNITS LAB L100.1000 4.4-11.0 K/mm3 Normal WBC 7.8 LAB L100.1200 4.2-5.4 M/mm3 Low RBC 3.53 LAB L100.1300 12.0-15.0 g/dl Low HGB 11.5 LAB L100.1400 37-47 % Low HCT 35.8 LAB L100.1500 81-99 fL High MCV 101.4 LAB L100.1600 27.0-32.0 pg High MCH 32.6 LAB L100.1700 32-36 g/gl Normal MCHC 32.1 LAB L100.1810 11.6-14.6 % High RDW CV 16.7 LAB L100.1820 35.1-43.9 fl High RDW SD 60.0 LAB L100.1900 150-450 K/mm3 Normal PLT 177 LAB L100.2000 6.2-12.0 fl Normal MPV 10.4 Performed By: #### L100.0500 #### [facility] [address] [place], [place], [id number] BASIC METABOLIC Collected: 11/01/2018 Status: F Source: GISSEL PROFILE (BMP) 5:00 AM [facility] REPOSITORY TYPE CODE TESTS RESULT OUT OF RANGE REFERENCE UNITS LAB L501.0100 74-106 mg/dL High GLU 159 Result Comment: Fasting Glucose result greater than or equal to 126 mg/dL suggests DIABETES MELLITUS per A.D.A. criteria. Please note revised GLUCOSE reference range effective 2017. LAB L501.1000 7-18 mg/dL High BUN 36 LAB L501.1100 0.55-1.02 mg/dL High CREAT,SERUM 1.21 Result Comment: The validity of the calculated GFR AND GFRAA in patients over 70 years has not been determined. Clinical correlation is essential. LAB L501.1110 >60 mL/min Low EST GFR 45 Result Comment: Non- GFR Calc LAB L501.1115 >60 mL/min Low EST GFR - AA 55 Result Comment: GFR Calc LAB L501.1300 10-20 RATIO High BUN/CRE 29.8 LAB L501.2200 8.5-10.1 mg/dL CA Normal 9.4 LAB L501.5300 136-145 mmol/L NA Normal 140 LAB L501.5600 3.5-5.1 mmol/L High K 5.4 LAB L501.5900 98-107 mmol/L CL Normal 107 LAB L501.6100 21.0-32.0 mmol/L Low CO2 20.0 LAB L501.6200 5-15 Normal GAP 13 Performed By: #### L500.2500 #### [facility] [address] [place], [address] BASIC METABOLIC Collected: 10/25/2018 Status: F Source: FIREBAUGH PROFILE ([facility]) 6:37 AM [facility] REPOSITORY Order Comment: 408 TYPE CODE TESTS RESULT OUT OF RANGE REFERENCE UNITS LAB L501.0100 74-106 mg/dL High GLU 173 Result Comment: Fasting Glucose result greater than or equal to 126 mg/dL suggests DIABETES MELLITUS per A.D.A. criteria. Please note revised GLUCOSE reference range effective 2017. LAB L501.1000 7-18 mg/dL High BUN 31 LAB L501.1100 0.55-1.02 mg/dL High CREAT,SERUM 1.31 Result Comment: The validity of the calculated GFR AND GFRAA in patients over 70 years has not been determined. Clinical correlation is essential. LAB L501.1110 >60 mL/min Low EST GFR 41 Result Comment: Non- GFR Calc LAB L501.1115 >60 mL/min Low EST GFR - AA 50 Result Comment: GFR Calc LAB L501.1300 10-20 RATIO High BUN/CRE 23.7 LAB L501.2200 8.5-10.1 mg/dL CA Normal 9.3 LAB L501.5300 136-145 mmol/L NA Normal 144 LAB L501.5600 3.5-5.1 mmol/L K Normal 4.6 LAB L501.5900 98-107 mmol/L CL Normal 107 LAB L501.6100 21.0-32.0 mmol/L Normal CO2 23.0 LAB L501.6200 5-15 Normal GAP 14 Performed By: #### L500.2500 #### [facility] [address] [place], [place], [id number] CBC-COMPLETE BLOOD CNT Collected: 10/25/2018 Status: F Source: GISSEL NO DIFF 6:37 AM [facility] REPOSITORY Order Comment: 408 TYPE CODE TESTS RESULT OUT OF RANGE REFERENCE UNITS LAB L100.1000 4.4-11.0 K/mm3 Normal WBC 9.8 LAB L100.1200 4.2-5.4 M/mm3 Low RBC 3.51 LAB L100.1300 12.0-15.0 g/dl Low HGB 11.3 LAB L100.1400 37-47 % Low HCT 34.6 LAB L100.1500 81-99 fL Normal MCV 98.6 LAB L100.1600 27.0-32.0 pg High MCH 32.2 LAB L100.1700 32-36 g/gl Normal MCHC 32.7 LAB L100.1810 11.6-14.6 % High RDW CV 16.7 LAB L100.1820 35.1-43.9 fl High RDW SD 58.0 LAB L100.1900 150-450 K/mm3 Normal PLT 239 LAB L100.2000 6.2-12.0 fl Normal MPV 10.2 Performed By: #### L100.0500 #### [facility] [address] [place], [address] CBC-COMPLETE BLOOD CNT Collected: 10/18/2018 Status: F Source: GISSEL NO DIFF 5:50 AM [facility] REPOSITORY TYPE CODE TESTS RESULT OUT OF RANGE REFERENCE UNITS LAB L100.1000 4.4-11.0 K/mm3 Normal WBC 8.6 LAB L100.1200 4.2-5.4 M/mm3 Low RBC 3.26 LAB L100.1300 12.0-15.0 g/dl Low HGB 10.5 LAB L100.1400 37-47 % Low HCT 32.2 LAB L100.1500 81-99 fL Normal MCV 98.8 LAB L100.1600 27.0-32.0 pg High MCH 32.2 LAB L100.1700 32-36 g/gl Normal MCHC 32.6 LAB L100.1810 11.6-14.6 % High RDW CV 16.6 LAB L100.1820 35.1-43.9 fl High RDW SD 57.3 LAB L100.1900 150-450 K/mm3 Normal PLT 214 LAB L100.2000 6.2-12.0 fl Normal MPV 10.4 Performed By: #### L100.0500 #### [facility] [address] [place], [address] BASIC METABOLIC Collected: 10/18/2018 Status: F Source: GISSEL PROFILE (BMP) 5:50 AM [facility] REPOSITORY TYPE CODE TESTS RESULT OUT OF RANGE REFERENCE UNITS LAB L501.0100 74-106 mg/dL High GLU 301 Result Comment: Glucose result greater than or equal to 200 mg/dL suggests DIABETES MELLITUS per A.D.A. criteria. Please note revised GLUCOSE reference range effective 2017. LAB L501.1000 7-18 mg/dL High BUN 47 LAB L501.1100 0.55-1.02 mg/dL High CREAT,SERUM 1.32 Result Comment: The validity of the calculated GFR AND GFRAA in patients over 70 years has not been determined. Clinical correlation is essential. LAB L501.1110 >60 mL/min Low EST GFR 41 Result Comment: Non- GFR Calc LAB L501.1115 >60 mL/min Low EST GFR - AA 50 Result Comment: GFR Calc LAB L501.1300 10-20 RATIO High BUN/CRE 35.6 LAB L501.2200 8.5-10.1 mg/dL CA Normal 9.1 LAB L501.5300 136-145 mmol/L NA Normal 144 LAB L501.5600 3.5-5.1 mmol/L K Normal 4.8 LAB L501.5900 98-107 mmol/L High CL 111 LAB L501.6100 21.0-32.0 mmol/L Normal CO2 22.0 LAB L501.6200 5-15 Normal GAP 11 Performed By: #### L500.2500 #### [facility] [address] [place], [place], [address] CBC-COMPLETE BLOOD CNT Collected: 10/11/2018 Status: F Source: GISSEL NO DIFF 5:25 AM [facility] REPOSITORY Order Comment: 408 TYPE CODE TESTS RESULT OUT OF RANGE REFERENCE UNITS LAB L100.1000 4.4-11.0 K/mm3 Normal WBC 9.4 LAB L100.1200 4.2-5.4 M/mm3 Low RBC 3.57 LAB L100.1300 12.0-15.0 g/dl Low HGB 11.4 LAB L100.1400 37-47 % Low HCT 34.5 LAB L100.1500 81-99 fL Normal MCV 96.6 LAB L100.1600 27.0-32.0 pg Normal MCH 31.9 LAB L100.1700 32-36 g/gl Normal MCHC 33.0 LAB L100.1810 11.6-14.6 % High RDW CV 16.4 LAB L100.1820 35.1-43.9 fl High RDW SD 55.5 LAB L100.1900 150-450 K/mm3 Normal PLT 179 LAB L100.2000 6.2-12.0 fl Normal MPV 10.9 Performed By: #### L100.0500 #### [facility] [address] [place], [place], [id number] BASIC METABOLIC Collected: 10/11/2018 Status: F Source: GISSEL PROFILE (BMP) 5:25 AM [facility] REPOSITORY Order Comment: 408 TYPE CODE TESTS RESULT OUT OF RANGE REFERENCE UNITS LAB L501.0100 74-106 mg/dL High GLU 233 Result Comment: Glucose result greater than or equal to 200 mg/dL suggests DIABETES MELLITUS per A.D.A. criteria. Please note revised GLUCOSE reference range effective 2017. LAB L501.1000 7-18 mg/dL High BUN 46 LAB L501.1100 0.55-1.02 mg/dL High CREAT,SERUM 1.56 Result Comment: The validity of the calculated GFR AND GFRAA in patients over 70 years has not been determined. Clinical correlation is essential. LAB L501.1110 >60 mL/min Low EST GFR 34 Result Comment: Non- GFR Calc LAB L501.1115 >60 mL/min Low EST GFR - AA 41 Result Comment: GFR Calc LAB L501.1300 10-20 RATIO High BUN/CRE 29.5 LAB L501.2200 8.5-10.1 mg/dL CA Normal 9.3 LAB L501.5300 136-145 mmol/L NA Normal 143 LAB L501.5600 3.5-5.1 mmol/L K Normal 4.6 LAB L501.5900 98-107 mmol/L High CL 111 LAB L501.6100 21.0-32.0 mmol/L Normal CO2 21.0 LAB L501.6200 5-15 Normal GAP 11 Performed By: #### L500.2500 #### [facility] [address]. [place], [place], [address] BASIC METABOLIC Collected: 10/04/2018 Status: F Source: IGSSEL PROFILE (BMP) 5:25 AM [facility] REPOSITORY Order Comment: ROOM 408 TYPE CODE TESTS RESULT OUT OF RANGE REFERENCE UNITS LAB L501.0100 74-106 mg/dL High GLU 262 Result Comment: Glucose result greater than or equal to 200 mg/dL suggests DIABETES MELLITUS per A.D.A. criteria. Please note revised GLUCOSE reference range effective 2017. LAB L501.1000 7-18 mg/dL High BUN 47 LAB L501.1100 0.55-1.02 mg/dL High CREAT,SERUM 1.76 Result Comment: The validity of the calculated GFR AND GFRAA in patients over 70 years has not been determined. Clinical correlation is essential. LAB L501.1110 >60 mL/min Low EST GFR 29 Result Comment: Non- GFR Calc LAB L501.1115 >60 mL/min Low EST GFR - AA 36 Result Comment: GFR Calc LAB L501.1300 10-20 RATIO High BUN/CRE 26.7 LAB L501.2200 8.5-10.1 mg/dL CA Normal 9.8 LAB L501.5300 136-145 mmol/L NA Normal 142 LAB L501.5600 3.5-5.1 mmol/L K Normal 4.9 LAB L501.5900 98-107 mmol/L High CL 110 LAB L501.6100 21.0-32.0 mmol/L Normal CO2 22.0 LAB L501.6200 5-15 Normal GAP 10 Performed By: #### L500.2500 #### [facility] [address] [facility] [facility] [place], [address] CBC-COMPLETE BLOOD CNT Collected: 10/04/2018 Status: F Source: GISSEL NO DIFF 5:25 AM [facility] REPOSITORY Order Comment: ROOM 408 TYPE CODE TESTS RESULT OUT OF RANGE REFERENCE UNITS LAB L100.1000 4.4-11.0 K/mm3 Normal WBC 9.4 LAB L100.1200 4.2-5.4 M/mm3 Low RBC 3.76 LAB L100.1300 12.0-15.0 g/dl Low HGB 11.8 LAB L100.1400 37-47 % Low HCT 36.8 LAB L100.1500 81-99 fL Normal MCV 97.9 LAB L100.1600 27.0-32.0 pg Normal MCH 31.4 LAB L100.1700 32-36 g/gl Normal MCHC 32.1 LAB L100.1810 11.6-14.6 % High RDW CV 16.3 LAB L100.1820 35.1-43.9 fl High RDW SD 56.2 LAB L100.1900 150-450 K/mm3 Normal PLT 171 LAB L100.2000 6.2-12.0 fl Normal MPV 10.5 Performed By: #### L100.0500 #### [facility] [address] [facility] [address] [place], [address] 12 LEAD ELECTROCARDIOGRAM Observed: 10/01/2018 Status: F Source: GISSEL 9:08 AM [facility] REPOSITORY [facility] Cardiovascular Services [address] [facility] [place] [address] 12 Lead EKG 09/15/18 0823 MR#: [id number] Acct: [id number] Name: Catie WYNN Rep #: [id number] : 1935 82 From: Markus Cueto MD Attending Dr: Eriberto Huang MD Status: DIS IN Ordering Dr: Franklyn Gates DO Date: 09/15/18 Location: [facility] Sex: F C Admitted: 09/15/18 Test Reason : SEIZURE Blood Pressure : / mmHG Vent. Rate : 079 BPM Atrial Rate : 079 BPM P-R Int : 162 ms QRS Dur : 088 ms QT Int : 390 ms P-R-T Axes : 034 -48 041 degrees QTc Int : 447 ms Normal sinus rhythm Left axis deviation Abnormal ECG Confirmed by NORY MERCER, MARKUS ([id number]), video tape editor SADIQ BUENO ([id number]) on 09/17/2018 3:46:33 PM Referred By: NATE Confirmed By:MARKUS CUETO MD 09/17/18 1546 Date Markus Cueto MD CC: Franklyn Gates DO; Clement Bueno MD; Eriberto Huang MD Signed BASIC METABOLIC Collected: 09/27/2018 Status: F Source: GISSEL PROFILE (BMP) 6:05 AM [facility] REPOSITORY Order Comment: 408 TYPE CODE TESTS RESULT OUT OF RANGE REFERENCE UNITS LAB L501.0100 74-106 mg/dL High GLU 144 Result Comment: Fasting Glucose result greater than or equal to 126 mg/dL suggests DIABETES MELLITUS per A.D.A. criteria. Please note revised GLUCOSE reference range effective 2017. LAB L501.1000 7-18 mg/dL High BUN 22 LAB L501.1100 0.55-1.02 mg/dL High CREAT,SERUM 1.64 Result Comment: The validity of the calculated GFR AND GFRAA in patients over 70 years has not been determined. Clinical correlation is essential. LAB L501.1110 >60 mL/min Low EST GFR 32 Result Comment: Non- GFR Calc LAB L501.1115 >60 mL/min Low EST GFR - AA 39 Result Comment: GFR Calc LAB L501.1300 10-20 RATIO Normal BUN/CRE 13.4 LAB L501.2200 8.5-10.1 mg/dL CA Normal 9.2 LAB L501.5300 136-145 mmol/L NA Normal 141 LAB L501.5600 3.5-5.1 mmol/L High K 5.7 LAB L501.5900 98-107 mmol/L High CL 108 LAB L501.6100 21.0-32.0 mmol/L Normal CO2 21.0 LAB L501.6200 5-15 Normal GAP 12 Performed By: #### L500.2500 #### [facility] [address] [place], [place], [id number] CBC-COMPLETE BLOOD CNT Collected: 09/27/2018 Status: F Source: GISSEL NO DIFF 6:05 AM [facility] REPOSITORY Order Comment: 408 TYPE CODE TESTS RESULT OUT OF RANGE REFERENCE UNITS LAB L100.1000 4.4-11.0 K/mm3 Normal WBC 9.7 LAB L100.1200 4.2-5.4 M/mm3 Low RBC 3.66 LAB L100.1300 12.0-15.0 g/dl Low HGB 11.2 LAB L100.1400 37-47 % Low HCT 35.0 LAB L100.1500 81-99 fL Normal MCV 95.6 LAB L100.1600 27.0-32.0 pg Normal MCH 30.6 LAB L100.1700 32-36 g/gl Normal MCHC 32.0 LAB L100.1810 11.6-14.6 % High RDW CV 16.7 LAB L100.1820 35.1-43.9 fl High RDW SD 58.3 LAB L100.1900 150-450 K/mm3 Normal PLT 247 LAB L100.2000 6.2-12.0 fl Normal MPV 9.4 Performed By: #### L100.0500 #### [facility] [address] [place], [address] CBC-COMPLETE BLOOD CNT Collected: 09/22/2018 Status: F Source: GISSEL NO DIFF 6:25 AM [facility] REPOSITORY Order Comment: ROOM 408 TYPE CODE TESTS RESULT OUT OF RANGE REFERENCE UNITS LAB L100.1000 4.4-11.0 K/mm3 Normal WBC 6.7 LAB L100.1200 4.2-5.4 M/mm3 Low RBC 3.57 LAB L100.1300 12.0-15.0 g/dl Low HGB 11.1 LAB L100.1400 37-47 % Low HCT 34.5 LAB L100.1500 81-99 fL Normal MCV 96.6 LAB L100.1600 27.0-32.0 pg Normal MCH 31.1 LAB L100.1700 32-36 g/gl Normal MCHC 32.2 LAB L100.1810 11.6-14.6 % High RDW CV 16.8 LAB L100.1820 35.1-43.9 fl High RDW SD 57.3 LAB L100.1900 150-450 K/mm3 Normal PLT 247 LAB L100.2000 6.2-12.0 fl Normal MPV 10.2 Performed By: #### L100.0500 #### [facility] [address] [place], [address] BASIC METABOLIC Collected: 09/22/2018 Status: F Source: FIREBAUGH PROFILE (BMP) 6:25 AM [facility] REPOSITORY Order Comment: ROOM 408 TYPE CODE TESTS RESULT OUT OF RANGE REFERENCE UNITS LAB L501.0100 74-106 mg/dL High GLU 139 Result Comment: Fasting Glucose result greater than or equal to 126 mg/dL suggests DIABETES MELLITUS per A.D.A. criteria. Please note revised GLUCOSE reference range effective 2017. LAB L501.1000 7-18 mg/dL High BUN 21 LAB L501.1100 0.55-1.02 mg/dL High CREAT,SERUM 1.55 Result Comment: The validity of the calculated GFR AND GFRAA in patients over 70 years has not been determined. Clinical correlation is essential. LAB L501.1110 >60 mL/min Low EST GFR 34 Result Comment: Non- GFR Calc LAB L501.1115 >60 mL/min Low EST GFR - AA 41 Result Comment: GFR Calc LAB L501.1300 10-20 RATIO Normal BUN/CRE 13.5 LAB L501.2200 8.5-10.1 mg/dL CA Normal 8.6 LAB L501.5300 136-145 mmol/L NA Normal 142 LAB L501.5600 3.5-5.1 mmol/L K Normal 4.7 Result Comment: Slight Hemolysis, Result may be falsely increased. LAB L501.5900 98-107 mmol/L High CL 113 LAB L501.6100 21.0-32.0 mmol/L Low CO2 19.0 LAB L501.6200 5-15 Normal GAP 10 Performed By: #### L500.2500 #### [facility] [address] [place], [address] DISCHARGE SUMMARY Observed: 09/20/2018 Status: F Source: FIREBAUGH 3:24 PM [facility] REPOSITORY [facility] Medical Records Department [address] [place] [address] Discharge Summary 09/20/18 0935 MR#: [id number] Acct: [id number] Name: Catie WYNN Rep #: [id number] : 1935 82 From: Eriberto Huang MD PCP: Clement Bueno MD Status: DIS IN Y Location: [place] [id number] Discharge Date and Diagnosis Date of Admission: 09/15/18 Date of Discharge: 09/20/18 - Primary Discharge Diagnosis Status epilepticus: Resolved - Secondary Discharge Diagnosis Chronic Problems (Last Reviewed 09/15/18 @ 10:01 by Donnie Perkins MD) Status post colostomy (Chronic) History of left colon perforation (Chronic) GERD (gastroesophageal reflux disease) (Chronic) Dysphagia (Chronic) 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 Non-healing surgical wound (Chronic) Wound dehiscence, surgical (Chronic) Takotsubo cardiomyopathy (Chronic) Nonrheumatic tricuspid (valve) insufficiency (Chronic) Atherosclerotic heart disease of [place] coronary artery without angina pectoris (Chronic) Mild Hypothyroidism (Chronic) COPD (chronic obstructive pulmonary disease) (Chronic) Hyperlipidemia (Chronic) Type 2 diabetes mellitus (Chronic) Hospital Course and Treatment Consultations 09/15/18 10:37 Consult: Onc/Wound/thermostatic controls supervisor Routine Comment: Operations: None Summary of Care Provided: [] This is an 82 years old female patient [facility] because of status epilepticus, found to have lactic acidosis which is attributed to continuous seizure, found to have acute kidney injury on top of stage III chronic kidney disease as well as acute cystitis, was intubated for airway protection. #1 status epilepticus: She is on oral Keppra. She had no more seizures since admission. Vital signs remained stable. MRI brain was done and showed no acute ischemia, no hemorrhage or infarction, but restricted diffusion in bilateral basal ganglia, left greater than right, left temporal lobe and bilateral cerebellar hemispheres possibly due to cytotoxic edema secondary to recent seizure. the seizure could be due to old stroke. The patient was seen by the neurologist. Patient has been weak, bedbound since she came out of the ICU. Patient was seen and evaluated by PT and OT and recommended SNF. Patient was discharged to SNF. #2 acute respiratory failure: Status post extubation, resolved . This was done for protection of her airway. Pulse ox has been maintained on room air. #3 lactic acidosis: Attributed to status epilepticus. Lactic acid came down to normal. Acute cystitis also could be contributing. She is on day 4 of IV Zosyn. Vital signs are stable, remained afebrile. Blood cultures showed no growth in 48 hours. Urine culture revealed Laila albicans. Plan to DC Zosyn today. #4 Acute Laila albicans/fungal cystitis or lower UTI: Initially patient was treated with IV Zosyn empirically. She has been afebrile, vital cell count is back to normal. Urine culture revealed Laila albicans. Blood culture showed no growth in 48 hours as above. The antibiotic was discontinued. Patient started on Diflucan 100 mg daily for 7 days based on lower creatinine clearance 22 mill per minute. #5 acute kidney injury on top of stage III chronic kidney disease; gradually improving: Baseline creatinine has been around 1.2-1.4 mg/dL. Creatinine improved gradually 1.74, 1.67 with estimated 22 mL/min. Needs repeat BMP monitoring in SNF, next on 09/22/2018. Follow-up with PCP #6 recent history of left colonic perforation: Status post exploratory laparotomy, left colon resection and colostomy. Postoperative course complicated by wound dehiscence and infection, status post treatment with antibiotics and wound VAC insertion. Surgery was done on July 27, 2018. Abdominal examination is benign. Wound VAC is inserted to the midline surgical scar/wound. Patient had Zosyn for 4 days. Semisolid stool in colostomy bag. No significant erythema or swelling around the surgical incision/wound. Wound nurse to further monitor in SNF #7 Acute on chronic chronic anemia: It is normocytic anemia secondary to anemia of chronic disease. Baseline hemoglobin has been around 8-9 g/dL. Admission hemoglobin is 9.7 g/dL, today's hemoglobin is 8.7 g/dL after she received 1 unit of packed RBCs. No evidence of active bleeding. Hemoglobin 9.6 today. #8 type 2 diabetes mellitus: She is on a diet, started back on her Lantus insulin twice daily and continued on sliding scale. Blood sugar is controlled. #9 hypothyroidism: Continue levothyroxine. #10 hyperlipidemia: She is not on any statins. 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 No acute CHF. Continue aspirin, statins, amiodarone and metoprolol. #12 COPD: Status post extubation. Respiratory status stabilized. Pulse ox is maintained on room air. #13 CODE STATUS: DNR CCA. Discharge medication reconciliation done. Patient to follow with PCP in 1-2 weeks. Multiple comorbidities complicates the present care and expect difficult and delay recovery. Discharge follow-up instructions completed. Total time spent, exact 35 minutes on discharge meds reconciliation, examination, review of imaging and blood test and discussion with the patient on follow-up instructions. Microbiology Past 72 Hours 09/15/18 09:00 Blood Culture (Wb) - Anticubital Right Blood Culture - Final No growth in 5 days. 09/15/18 08:00 Blood Culture (Wb) - Right Hand Blood Culture - Final No growth in 5 days. 09/15/18 08:05 Urine Catheter - Benitez Urine Culture - Final Laila albicans Laboratory Results 09/19/18 16:27: POC Glucose 233 H 09/19/18 21:01: POC Glucose 137 H 09/20/18 05:20: WBC 6.8, RBC 3.10 L, Hgb 9.6 L, Hct 29.5 L, MCV 95.2, MCH 31.0, MCHC 32.5, RDW 17.6 H, RDW Differential 60.8 H, Plt Count 230, MPV 9.2, Immature Gran % (Auto) 0.100, Neut % (Auto) 64.1, Lymph % (Auto) 17.3 L, Mcintosh % (Auto) 7.1, Eos % (Auto) 11.1 H, Baso % (Auto) 0.3, Absolute Neuts (auto) 4.4, Absolute Lymphs (auto) 1.17, Total Counted Not Reportable 09/20/18 05:20: Sodium 145, Potassium 3.8, Chloride 116 H, Carbon Dioxide 19.0 L, Anion Gap 10, BUN 14, Creatinine 1.67 H, Estim Creat Clear Calc 22.81, Est GFR (MDRD) Af Amer 38 L, Est GFR (MDRD) Non-Af 31 L, BUN/Creatinine Ratio 8.4 L, Glucose 90, Calcium 8.0 L 09/20/18 06:52: POC Glucose 98 Clinical Impression(s) from Imaging Studies Brain CT 09/15/18 08:01 IMPRESSION: 1. Chronic involutional changes of the brain. 2. No CT evidence of acute intracranial hemorrhage. 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 5. Bilateral mild mastoid disease. Brain MRI 09/17/18 07:40 IMPRESSION: 1. Involutional changes of the brain, as described above. 2. Restricted diffusion in bilateral basal ganglia, left greater than right; left temporal lobe and bilateral cerebellar hemispheres maybe secondary to cytotoxic edema and recent seizure. - Physical Exam General: Alert, Oriented x3, Cooperative HEENT: Atraumatic, PERRLA, EOMI, Normocephalic Neck: Supple, No JVD, Negative Carotid Bruits Lungs: Clear to auscultation, No rhonchi, No wheeze, No rales, Diminished - Air entry diminished in bilateral lung bases Cardiovascular: Regular rate, Regular Rhythm, Normal S1, Normal S2, No murmurs Abdomen: Bowel Sounds Present, Soft, Non Tender, Non-Distended, - - Colostomy bag contains semisolid yellow stool Extremities: No edema, Capillary Refill Less than 3 Seconds Skin: No rashes, No breakdown Musculoskeletal: No Tenderness to Palpation of Joints or Extremities, Arthritic Changes, Muscle Wasting Neurological: Cranial nerves II-XII grossly intact, Deep Tendon Reflexes 2+/4 and Symmetrical, Neuro grossly intact Psych/Mental Status: Normal Affect, Appropriate Vital Signs Temp Pulse Resp BP Pulse Ox 98.7 F 99 17 175/82 H 97 09/20/18 09:20 09/20/18 09:28 09/20/18 09:20 09/20/18 09:28 09/20/18 09:20 Oxygen Flow Rate (L/min) 2 Oxygen Delivery Method Room Air Weight: 171 lb 1.259 oz Body Mass Index (BMI) 29.6 Intake and Output for Last 24 Hours Intake Total 2008.4 / 2008.4 527.4 / 527.4 Output Total 1400 / 1400 1150 / 1150 75 / 75 Balance 608.4 / 608.4 -622.6 / -622.6 -75 / -75 Microbiology Past 72 Hours 09/15/18 08:05 Urine Culture - Final Urine Catheter - Benitez Laila albicans 09/15/18 09:00 Blood Culture - Preliminary Laboratory Tests Past 24 Hrs WBC 6.8 RBC 3.10 L Hgb 9.6 L Hct 29.5 L MCV 95.2 MCH 31.0 MCHC 32.5 RDW 17.6 H POC Glucose POC Glucose 98 137 H 233 H POC Glucose 172 H Home Medications: Medications to take at Discharge Amiodarone HCl [Cordarone] 200 mg PO DAILY 09/15/18 Argin/Glut/Cahmb/Collag/Mv-Min [Harsha Packet] 1 each PO BID 09/15/18 Aspirin [Aspirin, Baby] 81 mg PO DAILY@0800 09/15/18 Atorvastatin Calcium [Lipitor] 20 mg PO QHS 09/15/18 Cholecalciferol (Vitamin D3) [Vitamin D3] 1,000 unit PO DAILY 09/15/18 Cyanocobalamin [Vitamin B12] 500 mcg PO DAILY@0800 09/15/18 Fluticasone/Vilanterol [Breo Ellipta 200-25 Mcg INH] 1 each IH DAILY 09/15/18 Insulin Aspart [Novolog Flexpen] See Protocol SC UD 09/15/18 Levothyroxine [Synthroid] 25 mcg PO DAILY 09/15/18 Megestrol Acetate 400 mg PO DAILY 09/15/18 Metoprolol Tartrate [Lopressor (beta katty)] 25 mg PO BID 09/15/18 Mirtazapine [Remeron] 15 mg PO QHS 09/15/18 Nut.tx.gluc Intol,Lf,Soy/Fiber [Boost Glucose Control Liquid] 120 ml PO 4X/DAY 09/15/18 Fluconazole [Diflucan] 100 mg PO DAILY #7 tab 09/20/18 Insulin Glargine,Hum.rec.anlog [Lantus Solostar] 15 unit SQ BID #0 09/20/18 Insulin Lispro [Humalog KwikPen] See Protocol SC ACHS insuln.pen 09/20/18 Menthol/Lanolin/Calamine/Znox [Calmoseptine Ointment] 1 applic TOPICAL BID tube 09/20/18 Pantoprazole Sodium [Protonix] 40 mg PO DAILY #0 09/20/18 Potassium Chloride [K-Dur] 20 meq PO BIDCM tablet 09/20/18 Sennosides [Senna] 8.6 mg PO BID PRN PRN #1 09/20/18 levETIRAcetam tablet [Keppra tablet] 500 mg PO BID tablet 09/20/18 Following Prescrptions Were Given to Patient: Fluconazole [Diflucan] 100 mg PO DAILY #7 tab Primary Care Physician: Clement Bueno MD [Primary Care Provider] - Please follow up with your Primary Care Physician in: in 1- 2 week Medical Necessity - Tobacco Use Smoking Status: Never smoker Meaningful Use Info Meaningful Use Diagnoses (Choose all that apply): None applicable Code Visit Inpatient E AND M: 35691 Disch Hosp 09/20/18 1524 <Electronically signed by Eriberto Huang MD> Date Eriberto Huang MD Cosigner Signature (if applicable): Date CC: Clement Bueno MD; Eriberot Huang MD Signed TRANSFER TO [facility] Observed: 09/20/2018 Status: F Source: [facility] 9:35 AM [facility] REPOSITORY [facility] Medical Records Department [address] [place] [address] Transfer to [facility] Care MR#: [id number] Acct: [id number] Name: Catie WYNN Rep #: [id number] : [id number] 82 From: Eriberto Huang MD PCP: Clement Bueno MD Status: ADM IN Catie WYNN [id number] (Patient) (Health Ins. Claim No.) (Day of Discharge to Facility) Certification of patient admission REQUIRED AT TIME OF ADMISSION. I CERTIFY THAT POST-HOSPITAL ECF SERVICES ARE REQUIRED TO BE GIVEN ON AN IN-PATIENT BASIS BECAUSE OF THE ABOVE NAMED PATIENT'S NEED FOR SNF CARE ON A CONTINUING BASIS FOR THE CONDITION(S) FOR WHICH HE/SHE WAS RECEIVING IN-PATIENT HOSPITAL SERVICES PRIOR TO HIS/HER TRANSFER TO THE ECF. 09/20/18 0935 <Electronically signed by Eriberto Huang MD> Date Eriberto Huang MD - Diet 09/17/18 12:14 Diet: Regular Diet Food consistency:: Puree Liquid Consistency:: [place] Thick Dietary Modifications:: Pureed Diet [place] Thick Liquids Is pt able to select menu?: No Diet Comments: TOTAL FEED via SPOON; seated upright at 90 degrees - Routine Orders/Code Status Suppository Type: Dulcolax 10mg Routine Lab Work: CBC - On 09/22/2018 and then weekly, BMP - On 09/22/2018 and then weekly Code Status: DNRCC-A - Wound(s) mid abdomen Wound Type: Surgical Incision Dressing Change: KCI wound VAC - Therapies Weight Bearing: Weight bearing as tolerated Extremity Affected:: Bilateral Lower Physical Therapy: Eval and Treat Occupational Therapy: Eval and Treat Speech Therapy: Eval and Treat - Allergies/Procedures Done in Hospital Allergies/Adverse Reactions: Allergies codeine Allergy (Severe, Verified 09/15/18 07:48) HEART ATTACK levofloxacin [From Levaquin] Allergy (Severe, Verified 09/15/18 07:48) Anaphylaxis Sulfa (Sulfonamide Antibiotics) Allergy (Unknown, Verified 09/15/18 07:48) Unknown adhesive tape Allergy (Verified 09/15/18 07:48) Other citalopram Allergy (Verified 09/15/18 07:48) Unknown Latex, Natural Rubber Allergy (Verified 09/15/18 07:48) Rash Penicillins Allergy (Verified 09/15/18 07:48) Rash acetaminophen [From Vicodin] Adverse Reaction (Verified 09/15/18 07:48) Chest tightness hydrocodone bitartrate [From Vicodin] Adverse Reaction (Verified 09/15/18 07:48) Chest tightness - Type of Care/Length of Stay Estimated LOS: More Than 30 Days Type of Care Needed: Skilled Rehab Potential: Fair Prognosis: Fair - Additional Orders/Day of Discharge Day of Discharge: 09/20/18 - Dietary and Speech Recommendations Dietitian Recommendations/Changes: Rec adv diet as tolerated to regular- consistency per AUTOMATION DRIVER. Will provide ONS w/ meals and medpass pending diet advancement. - Follow Up Care Primary Care Physician: Clement Bueno MD [Primary Care Provider] - Please follow up with your Primary Care Physician in: in 1- 2 week 09/20/18 0935 <Electronically signed by Eriberto Huang MD> Date Eriberto Huang MD CC: Juan Jose Lemon MD; Clement Bueno MD; Donnie Perkins MD Signed BEDSIDE GLUCOSE Collected: 09/20/2018 Status: F Source: [place] 6:52 AM [facility] REPOSITORY TYPE CODE TESTS RESULT OUT OF RANGE REFERENCE UNITS LAB L501.080 70-110 mg/dL Normal BEDSIDE GLU 98 Result Comment: MANAGEMENT OF PATIENT CARE PER NURSING PROTOCOL Performed By: #### L501.080 #### [facility] [place], [place] [address] CBC W/DIFF, AUTOMATED Collected: 09/20/2018 Status: F Source: [place] 5:20 AM [facility] REPOSITORY TYPE CODE TESTS RESULT OUT OF RANGE REFERENCE UNITS LAB L100.1000 4.4-11.0 K/mm3 Normal WBC 6.8 LAB L100.1200 4.2-5.4 M/mm3 Low RBC 3.10 LAB L100.1300 12.0-15.0 g/dl Low HGB 9.6 LAB L100.1400 37-47 % Low HCT 29.5 LAB L100.1500 81-99 fL Normal MCV 95.2 LAB L100.1600 27.0-32.0 pg Normal MCH 31.0 LAB L100.1700 32-36 g/gl Normal MCHC 32.5 LAB L100.1810 11.6-14.6 % High RDW CV 17.6 LAB L100.1820 35.1-43.9 fl High RDW SD 60.8 LAB L100.1900 150-450 K/mm3 Normal PLT 230 LAB L100.2000 6.2-12.0 fl Normal MPV 9.2 LAB L100.2100 47-70 % Normal NEUT% 64.1 LAB L100.2200 19-41 % Low LY% 17.3 LAB L100.2300 0-10 % Normal MONO% 7.1 LAB L100.2400 0-5 % High EO% 11.1 LAB L100.2500 0-1 % Normal BASO% 0.3 LAB L100.2550 0.0-0.9 % Normal IM GRAN % 0.100 Result Comment: IG% - Immature Granulocytes (promyelocytes, myelocytes and metamyelocytes) > 1% indicates that a LEFT SHIFT is Present. LAB L100.2620 2.0-7.7 X10 3/uL Normal Absolute Neut 4.4 LAB L100.2720 0.83-4.51 X10 3/ul Normal Absolute Lymph 1.17 Performed By: #### L100.0100 #### [facility] [address] [place], [place], [id number] BASIC METABOLIC Collected: 09/20/2018 Status: F Source: [place] PROFILE (BMP) 5:20 AM [facility] REPOSITORY TYPE CODE TESTS RESULT OUT OF RANGE REFERENCE UNITS LAB L501.0100 74-106 mg/dL Normal GLU 90 Result Comment: Please note revised GLUCOSE reference range effective 2017. LAB L501.1000 7-18 mg/dL Normal BUN 14 LAB L501.1100 0.55-1.02 mg/dL High CREAT,SERUM 1.67 Result Comment: The validity of the calculated GFR AND GFRAA in patients over 70 years has not been determined. Clinical correlation is essential. LAB L501.1110 >60 mL/min Low EST GFR 31 Result Comment: Non- GFR Calc LAB L501.1115 >60 mL/min Low EST GFR - AA 38 Result Comment: GFR Calc LAB L501.1255 ml/min Normal Estimated CRCL 22.81 LAB L501.1300 10-20 RATIO Low BUN/CRE 8.4 LAB L501.2200 8.5-10 mg/dL Low .1 CA 8.0 LAB L501.5300 136-14 mmol/L Normal 5 NA 145 LAB L501.5600 3.5-5. mmol/L Normal 1 K 3.8 LAB L501.5900 98-107 mmol/L High CL 116 LAB L501.6100 21.0-3 mmol/L Low 2.0 CO2 19.0 LAB L501.6200 5-15 Normal GAP 10 Performed By: #### L500.2500 #### [facility] [address] [facility] [address] BEDSIDE GLUCOSE Collected: 09/19/2018 Status: F Source: [place] 9:01 PM [facility] REPOSITORY TYPE CODE TESTS RESULT OUT OF REFERENCE UNITS RANGE LAB L501.080 70-110 mg/dL High BEDSIDE GLU 137 Result Comment: MANAGEMENT OF PATIENT CARE PER NURSING PROTOCOL Performed By: #### L501.080 #### [facility] Point of Care [address] [place] [address] BEDSIDE GLUCOSE Collected: 09/19/2018 Status: F Source: [place] 4:27 PM [facility] REPOSITORY TYPE CODE TESTS RESULT OUT OF REFERENCE UNITS RANGE LAB L501.080 70-110 mg/dL High BEDSIDE GLU 233 Result Comment: MANAGEMENT OF PATIENT CARE PER NURSING PROTOCOL Performed By: #### L501.080 #### [facility] Point of Care [address] [place] [address] BEDSIDE GLUCOSE Collected: 09/19/2018 Status: F Source: [place] 10:44 AM [facility] REPOSITORY TYPE CODE TESTS RESULT OUT OF REFERENCE UNITS RANGE LAB L501.080 70-110 mg/dL High BEDSIDE GLU 172 Result Comment: MANAGEMENT OF PATIENT CARE PER NURSING PROTOCOL Performed By: #### L501.080 #### [facility] Point of Care [address] [place] [address] BEDSIDE GLUCOSE Collected: 09/19/2018 Status: F Source: [place] 7:07 AM [facility] REPOSITORY TYPE CODE TESTS RESULT OUT OF REFERENCE UNITS RANGE LAB L501.080 70-110 mg/dL High BEDSIDE GLU 112 Result Comment: MANAGEMENT OF PATIENT CARE PER NURSING PROTOCOL Performed By: #### L501.080 #### [facility] Point of Care [address] [place] [address] CBC W/DIFF, AUTOMATED Collected: 09/19/2018 Status: F Source: [place] 6:14 AM [facility] REPOSITORY TYPE CODE TESTS RESULT OUT OF RANGE REFERENCE UNITS LAB L100.1000 4.4-11.0 K/mm3 Normal WBC 6.7 LAB L100.1200 4.2-5.4 M/mm3 Low RBC 2.80 LAB L100.1300 12.0-15.0 g/dl Low HGB 8.7 LAB L100.1400 37-47 % Low HCT 26.5 LAB L100.1500 81-99 fL Normal MCV 94.6 LAB L100.1600 27.0-32.0 pg Normal MCH 31.1 LAB L100.1700 32-36 g/gl Normal MCHC 32.8 LAB L100.1810 11.6-14.6 % High RDW CV 17.5 LAB L100.1820 35.1-43.9 fl High RDW SD 58.6 LAB L100.1900 150-450 K/mm3 Normal PLT 229 LAB L100.2000 6.2-12.0 fl Normal MPV 9.4 LAB L100.2100 47-70 % Normal NEUT% 65.6 LAB L100.2200 19-41 % Low LY% 15.2 LAB L100.2300 0-10 % Normal MONO% 10.0 LAB L100.2400 0-5 % High EO% 8.6 LAB L100.2500 0-1 % Normal BASO% 0.3 LAB L100.2550 0.0-0.9 % Normal IM GRAN % 0.300 Result Comment: IG% - Immature Granulocytes (promyelocytes, myelocytes and metamyelocytes) > 1% indicates that a LEFT SHIFT is Present. LAB L100.2620 2.0-7.7 X10 3/uL Normal Absolute Neut 4.4 LAB L100.2720 0.83-4.51 X10 3/ul Normal Absolute Lymph 1.02 Performed By: #### L100.0100 #### [facility] [address] [place], [address] BASIC METABOLIC Collected: 09/19/2018 Status: F Source: [place] PROFILE (BMP) 6:14 AM [facility] REPOSITORY TYPE CODE TESTS RESULT OUT OF RANGE REFERENCE UNITS LAB L501.0100 74-106 mg/dL High GLU 127 Result Comment: Fasting Glucose result greater than or equal to 126 mg/dL suggests DIABETES MELLITUS per A.D.A. criteria. Please note revised GLUCOSE reference range effective 2017. LAB L501.1000 7-18 mg/dL Normal BUN 16 LAB L501.1100 0.55-1.02 mg/dL High CREAT,SERUM 1.74 Result Comment: The validity of the calculated GFR AND GFRAA in patients over 70 years has not been determined. Clinical correlation is essential. LAB L501.1110 >60 mL/min Low EST GFR 30 Result Comment: Non- GFR Calc LAB L501.1115 >60 mL/min Low EST GFR - AA 36 Result Comment: GFR Calc LAB L501.1255 ml/min Normal Estimated CRCL 21.90 LAB L501.1300 10-20 RATIO Low BUN/CRE 9.2 LAB L501.2200 8.5-10 mg/dL Low .1 CA 7.5 LAB L501.5300 136-14 mmol/L Normal 5 NA 144 LAB L501.5600 3.5-5. mmol/L Low 1 K 3.3 LAB L501.5900 98-107 mmol/L High CL 116 LAB L501.6100 21.0-3 mmol/L Low 2.0 CO2 20.0 LAB L501.6200 5-15 Normal GAP 8 Performed By: #### L500.2500 #### [facility] [address] [place], [address] BEDSIDE GLUCOSE Collected: 09/18/2018 Status: F Source: [place] 8:59 PM [facility] REPOSITORY TYPE CODE TESTS RESULT OUT OF REFERENCE UNITS RANGE LAB L501.080 70-110 mg/dL High BEDSIDE GLU 331 Result Comment: MANAGEMENT OF PATIENT CARE PER NURSING PROTOCOL Performed By: #### L501.080 #### [facility] Point of Care [address] [place], [place] [address] BEDSIDE GLUCOSE Collected: 09/18/2018 Status: F Source: [place] 5:10 PM [facility] REPOSITORY TYPE CODE TESTS RESULT OUT OF REFERENCE UNITS RANGE LAB L501.080 70-110 mg/dL High BEDSIDE GLU 289 Result Comment: MANAGEMENT OF PATIENT CARE PER NURSING PROTOCOL Performed By: #### L501.080 #### [facility] Point of Care [address] [place], [place] [address] BEDSIDE GLUCOSE Collected: 09/18/2018 Status: F Source: [place] 11:07 AM [facility] REPOSITORY TYPE CODE TESTS RESULT OUT OF REFERENCE UNITS RANGE LAB L501.080 70-110 mg/dL High BEDSIDE GLU 216 Result Comment: MANAGEMENT OF PATIENT CARE PER NURSING PROTOCOL Performed By: #### L501.080 #### [facility] Point of Care [address] [place] [address] PROTHROMBIN TIME W/INR Collected: 09/18/2018 Status: F Source: [place] 8:20 AM [facility] REPOSITORY Order Comment: REDRAW. PREVIOUS SPECIMEN REJECTED DUE TO Hemolyzed/QNS FOR COAG. 09/18/18 0657 Douglas Bradford. TYPE CODE TESTS RESULT OUT OF RANGE REFERENCE UNITS LAB L300.4150 11.7-14.9 SECONDS High PROTIME 18.0 LAB L300.4200 Normal INR 1.5 Performed By: #### L300.3900 #### [facility] [address] [place], [address] BASIC METABOLIC Collected: 09/18/2018 Status: F Source: [place] PROFILE (BMP) 8:20 AM [facility] REPOSITORY Order Comment: REDRAW. PREVIOUS SPECIMEN REJECTED DUE TO Hemolyzed/QNS FOR COAG. 09/18/18 0657 Douglas Bradford. TYPE CODE TESTS RESULT OUT OF RANGE REFERENCE UNITS LAB L501.0100 74-106 mg/dL High GLU 161 Result Comment: Fasting Glucose result greater than or equal to 126 mg/dL suggests DIABETES MELLITUS per A.D.A. criteria. Please note revised GLUCOSE reference range effective 2017. LAB L501.1000 7-18 mg/dL Normal BUN 16 LAB L501.1100 0.55-1.02 mg/dL High CREAT,SERUM 1.85 Result Comment: The validity of the calculated GFR AND GFRAA in patients over 70 years has not been determined. Clinical correlation is essential. LAB L501.1110 >60 mL/min Low EST GFR 28 Result Comment: Non- GFR Calc LAB L501.1115 >60 mL/min Low EST GFR - AA 34 Result Comment: GFR Calc LAB L501.1255 ml/min Normal Estimated CRCL 20.59 LAB L501.1300 10-20 RATIO Low BUN/CRE 8.6 LAB L501.2200 8.5-10 mg/dL Low .1 CA 7.7 LAB L501.5300 136-14 mmol/L Normal 5 NA 144 LAB L501.5600 3.5-5. mmol/L Low 1 K 3.4 LAB L501.5900 98-107 mmol/L High CL 114 LAB L501.6100 21.0-3 mmol/L Low 2.0 CO2 16.0 LAB L501.6200 5-15 Normal GAP 14 Performed By: #### L500.2500 #### [facility] [address] [place], [place], [id number] TYPE AND SCREEN Collected: 09/18/2018 Status: F Source: [place] 8:20 AM [facility] REPOSITORY Order Comment: CMV NEG? N Number of units to transfuse: 1 Is this product for anemia associated with hemoglobinopathy? N Is pt's Hgb is </= to 7.0 mg/dl or Hct </= 21%? N Is there an orthostatic change in BP (SBP drop > 10mmHg)? N Is this for PREOP anemia correction prior to anesthesia? N Reason for Ordering Blood: Chronic Is there symptomatic anemia? N Are the blood/blood products to be transfused? Y Is the patient having/had surgery? N Give When? When Ready Irradiated? N Leukodepleted? Y TYPE CODE TESTS RESULT OUT OF RANGE REFERENCE UNITS LAB B10.0800 O Normal BLOOD TYPE GEL POSITIVE LAB B100.4000 Normal Antibody NEGATIVE Screen Performed By: #### B101.7450 #### [facility] [address] [place], [place], [id number] RC Collected: 09/18/2018 Status: F Source: [place] 8:20 AM [facility] REPOSITORY TYPE CODE TESTS RESULT OUT OF REFERENCE UNITS RANGE LAB U100.0000 [id number] TRANSFUSED PRODUCT: T AND S with Crossmatch, Red Cells COUNT: 1 Performed By: #### U100.0000 #### Non-[facility] - refer to report for specific site BEDSIDE GLUCOSE Collected: 09/18/2018 Status: F Source: [place] 8:16 AM [facility] REPOSITORY TYPE CODE TESTS RESULT OUT OF REFERENCE UNITS RANGE LAB L501.080 70-110 mg/dL High BEDSIDE GLU 145 Result Comment: MANAGEMENT OF PATIENT CARE PER NURSING PROTOCOL Performed By: #### L501.080 #### [facility] Point [place] [address] CBC W/DIFF, AUTOMATED Collected: 09/18/2018 Status: F Source: [place] 6:40 AM [facility] REPOSITORY Order Comment: SPECIMEN OBTAINED FROM LINE DRAW TYPE CODE TESTS RESULT OUT OF RANGE REFERENCE UNITS LAB L100.1000 4.4-11.0 K/mm3 Normal WBC 6.9 LAB L100.1200 4.2-5.4 M/mm3 Low RBC 2.39 LAB L100.1300 12.0-15.0 g/dl Low HGB 7.6 LAB L100.1400 37-47 % Low HCT 23.3 LAB L100.1500 81-99 fL Normal MCV 97.5 LAB L100.1600 27.0-32.0 pg Normal MCH 31.8 LAB L100.1700 32-36 g/gl Normal MCHC 32.6 LAB L100.1810 11.6-14.6 % High RDW CV 17.3 LAB L100.1820 35.1-43.9 fl High RDW SD 58.5 LAB L100.1900 150-450 K/mm3 Normal PLT 170 LAB L100.2000 6.2-12.0 fl Normal MPV 9.8 LAB L100.2100 47-70 % High NEUT% 71.5 LAB L100.2200 19-41 % Low LY% 12.6 LAB L100.2300 0-10 % Normal MONO% 9.1 LAB L100.2400 0-5 % High EO% 6.1 LAB L100.2500 0-1 % Normal BASO% 0.4 LAB L100.2550 0.0-0.9 % Normal IM GRAN % 0.300 Result Comment: IG% - Immature Granulocytes (promyelocytes, myelocytes and metamyelocytes) > 1% indicates that a LEFT SHIFT is Present. LAB L100.2620 2.0-7.7 X10 3/uL Normal Absolute Neut 4.9 LAB L100.2720 0.83-4.51 X10 3/ul Normal Absolute Lymph 0.86 Performed By: #### L100.0100 #### [facility] [address] [place], [address] BEDSIDE GLUCOSE Collected: 09/17/2018 Status: F Source: [place] 11:08 PM [facility] REPOSITORY TYPE CODE TESTS RESULT OUT OF REFERENCE UNITS RANGE LAB L501.080 70-110 mg/dL High BEDSIDE GLU 182 Result Comment: MANAGEMENT OF PATIENT CARE PER NURSING PROTOCOL Performed By: #### L501.080 #### [facility] Point of Care [address] [place] [address] BEDSIDE GLUCOSE Collected: 09/17/2018 Status: F Source: [place] 4:58 PM [facility] REPOSITORY TYPE CODE TESTS RESULT OUT OF REFERENCE UNITS RANGE LAB L501.080 70-110 mg/dL High BEDSIDE GLU 237 Result Comment: MANAGEMENT OF PATIENT CARE PER NURSING PROTOCOL Performed By: #### L501.080 #### [facility] Point of Care [address] [place] [address] BEDSIDE GLUCOSE Collected: 09/17/2018 Status: F Source: [place] 12:27 PM [facility] REPOSITORY TYPE CODE TESTS RESULT OUT OF REFERENCE UNITS RANGE LAB L501.080 70-110 mg/dL High BEDSIDE GLU 166 Result Comment: MANAGEMENT OF PATIENT CARE PER NURSING PROTOCOL Performed By: #### L501.080 #### [facility] Point of Care [address] [place] [address] BRAIN WITHOUT Observed: 09/17/2018 Status: F Source: [place] CONTRAST 7:41 AM [facility] REPOSITORY [facility] Imaging Services [address] [place] [address] Brain without Contrast MR#: [id number] Acct: [id number] Name: Catie WYNN Rep #: [id number] : 1935 F 82 From: Brandy Bueno MD PCP: Clemnet Bueno MD Status: ADM IN Study: Brain without Contrast Date of Exam: 09/17/18 Exam# [id number] Ordering Dr: Juan Jose Lemon MD STUDY: MRI BRAIN WITHOUT CONTRAST REASON FOR EXAM: Female, 82 years old. Confusion 40 minutes after witnessed seizure. TECHNIQUE: Standardized multiplanar fat and water weighted pulse sequences were obtained. COMPARISON: CT of the head dated September 15, 2018. FINDINGS: There is mild cerebral atrophy with widening of the extra- axial spaces and ventricular dilatation. There are a limited number of small white matter hyperintensities, distributed throughout the deep white matter tracts of the cerebral hemispheres, consistent with mild chronic white matter ischemic changes. There is confluent periventricular hyperintensity cloaking the lateral ventricles, consistent with periventricular leukoaraiosis. There is encephalomalacia in the left parietal lobe with adjacent abnormal signal probably related to gliosis. There is no evidence for recent intracranial ischemia or other cause of cytotoxic edema on diffusion weighted imaging (DWI). Apparent restricted diffusion in the basal ganglia, left greater than right, (best seen on MR series #901 images #15, and 16) maybe related to recent seizure. There is also restricted diffusion in the medial left temporal lobe (MR series 901, image #14). There is restricted diffusion in bilateral cerebellar hemispheres (MR series #901, image #9). Normal T2* images of the brain without demonstrated susceptibility artifact. There is no demonstrated hemosiderin stain. Normal bilateral basal ganglia. Normal thalami. There is no extra-axial fluid accumulation. Normal flow voids within the major intracranial circulation suggesting patency by spin echo criteria. Normal sella turcica, pituitary gland, infundibular stalk, optic chiasm and hypothalamus. Normal tectal plate and pineal gland. Normal midbrain, belle and medulla. There are several small areas of encephalomalacia in the cerebellum are probably related to old infarcts. There are large basal cisterns. 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 Normal bilateral internal auditory canals. No demonstrated orbital abnormality, within the constraints of a routine brain study. There is almost complete opacification of the right maxillary sinus. There is mild mucoperiosteal thickening within bilateral ethmoid and maxillary sinuses. Normal calvarium and skull base. Normal visualized soft tissue structures. There are degenerative changes of the anterior atlantoaxial articulation. MRI/Brain without Contrast IMPRESSION: 1. Involutional changes of the brain, as described above. 2. Restricted diffusion in bilateral basal ganglia, left greater than right; left temporal lobe and bilateral cerebellar hemispheres maybe secondary to cytotoxic edema and recent seizure. Electronically Signed: Brandy Bueno MD at 11:19 EST , Service support , CC: Juan Jose Lemon MD; Clement Bueno MD Sales Manager: Signed EMERGENCY DEPARTMENT Observed: 09/17/2018 Status: F Source: [place] SUMMARY 7:05 AM [facility] REPOSITORY [facility] Medical Records Department [address] [place] [address] Emergency Department Summary 09/15/18 0827 MR#: [id number] Acct: [id number] Name: Catie WYNN Rep #: [id number] : 1935 82 From: Franklyn Gates DO PCP: Clement Bueno MD Status: ADM IN - ER Visit Summary Date of Service: 09/15/18 Chief Complaint: Unresponsive History of Present Illness: The patient is a 82 F who at 630 this morning [place] [facility] [place] her primary care physician to be in her steady state. Shortly thereafter the patient was noted to have seizure activity. Reportedly was intermittent but became constant. EMS was called and they note seizure activity of the arms the face. He states that they gave Versed. After Versed she required bag respirations. Total time of seizure activity was estimated to be 30-40 minutes. EMS notes that that she has half normal saline running through a left arm PICC line. In July the patient presented to the emergency department with evidence of perforated descending colon. 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 Apparently she had wound healing issues but has been doing fine. She is been at the jail and in the past week was noted to have acute kidney injury. Creatinine up to 3.6. BUN in the 60s. Ultrasound of the kidneys demonstrated no hydronephrosis. Patient has no reported seizure history. 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 Physical Examination: 143/94 heart rate is 79. Respirations are agonal at 25. Patient is in the 70s on room air she is 99% with bagged respirations. Temperature 99.8 Gen: Well-nourished well-developed Head: Normocephalic atraumatic Eyes: No corneal reflex. Pupils are 2 mm bilaterally. ENT: TMs clear no rhinorrhea moist mucous membranes Neck: Supple no lymphadenopathy no JVD nontender CVS: Regular rate rhythm no murmurs normal S1-S2 Respiratory: Agonal-like respirations that are shallow and ineffective at oxygenation/ventilation. Bagged respirations in progress. Chest nontender Abdomen: Soft nontender nondistended normal bowel sounds no masses Back: Nontender Extremity: Nontender diffusely edematous symmetric Skin: Normal color no rash Neuro: Patient is unresponsive. No corneal reflex. No response to sternal rub. No response to voice. There is no gag reflex. There is no movement of the extremities. Test Results: EKG demonstrated a normal sinus rhythm at a rate of 79 with left axis deviation. This appears unchanged from July 2018. White white blood cell count 13.7. Hemoglobin 9.7. Sodium 142 potassium 4.8. Glucose 202. BUN of 37 the creatinine 2.48. Lactic acid 6.3. Urinalysis greater than 100 white blood cells but no obvious bacteria. (Patient grew out E. coli in July and the sensitivities were reviewed) pH is 7.33. Bicarb is 14. CO2 26.7 PaO2 of 93 (on the vent) Emergency Department Course and Treatment: Patient is a DNR Comfort Care arrest. Family is present. Patient underwent intubation with a 7.5 endotracheal tube on the first attempt without difficulty after using 20 of etomidate for sedation. 16 [place] oral gastric tube was placed. She was placed on low-dose propofol drip. Temperature sensitive Benitez was placed shows temperature 99.8. Chest x-ray shows adequate positioning of the endotracheal tube and orogastric tube. Blood and urine cultures were sent. Patient received Rocephin based on WHIT report from prior urinalysis culture plan will be admission into the hospital/icu. Impression: 1. Status epilepticus 2. Intubation 3. NG tube placement 4. Respiratory failure 5. Acute cystitis 6. Sepsis 7. Critical care time 35 minutes This note was generated with Connect dictation software. It may contain incorrect words, spelling, and punctuation that were not noted in review of the chart prior to signing ED Disposition - Plan for ED Patient: Chief Complaint: Unresponsive Referrals: Clement Bueno MD [Primary Care Provider] - What to do if you have Problems For any increased pain, shortness of breath, bleeding, nausea or vomiting, chest pain, or any unexpected problems, contact your Primary Care Provider. Call [facility] ([phone]) or report to the closest Emergency Room. Call 911 if necessary. 09/17/18 0705 <Electronically signed by Franklyn Gates DO> Date Franklyn Gates DO Cosigner Signature (If Indicated): Date CC: Clement Bueno MD CBC W/DIFF, AUTOMATED Collected: 09/17/2018 Status: F Source: [place]ISSEL 6:10 AM [facility] REPOSITORY Order Comment: REDRAW. PREVIOUS SPECIMEN REJECTED DUE TO CONTAMINATION. 09/17/18 0552 Trevin Sanabria. TYPE CODE TESTS RESULT OUT OF RANGE REFERENCE UNITS LAB L100.1000 4.4-11.0 K/mm3 Normal WBC 7.9 LAB L100.1200 4.2-5.4 M/mm3 Low RBC 2.54 LAB L100.1300 12.0-15.0 g/dl Low HGB 8.0 LAB L100.1400 37-47 % Low HCT 24.5 LAB L100.1500 81-99 fL Normal MCV 96.5 LAB L100.1600 27.0-32.0 pg Normal MCH 31.5 LAB L100.1700 32-36 g/gl Normal MCHC 32.7 LAB L100.1810 11.6-14.6 % High RDW CV 17.0 LAB L100.1820 35.1-43.9 fl High RDW SD 57.0 LAB L100.1900 150-450 K/mm3 Normal PLT 210 LAB L100.2000 6.2-12.0 fl Normal MPV 9.3 LAB L100.2100 47-70 % High NEUT% 73.7 LAB L100.2200 19-41 % Low LY% 9.0 LAB L100.2300 0-10 % High MONO% 10.9 LAB L100.2400 0-5 % High EO% 5.8 LAB L100.2500 0-1 % Normal BASO% 0.3 LAB L100.2550 0.0-0.9 % Normal IM GRAN % 0.300 Result Comment: IG% - Immature Granulocytes (promyelocytes, myelocytes and metamyelocytes) > 1% indicates that a LEFT SHIFT is Present. LAB L100.2620 2.0-7.7 X10 3/uL Normal Absolute Neut 5.8 LAB L100.2720 0.83-4.51 X10 3/ul Low Absolute Lymph 0.71 Performed By: #### L100.0100 #### [facility] [address] [place], [address] BASIC METABOLIC Collected: 09/17/2018 Status: F Source: [facility] PROFILE ([facility]) 6:10 AM [facility] REPOSITORY Order Comment: REDRAW. PREVIOUS SPECIMEN REJECTED DUE TO CONTAMINATION. 09/17/18 0552 Trevin Sanabria. TYPE CODE TESTS RESULT OUT OF RANGE REFERENCE UNITS LAB L501.0100 74-106 mg/dL High GLU 202 Result Comment: Glucose result greater than or equal to 200 mg/dL suggests DIABETES MELLITUS per A.D.A. criteria. Please note revised GLUCOSE reference range effective 2017. LAB L501.1000 7-18 mg/dL High BUN 22 LAB L501.1100 0.55-1.02 mg/dL High CREAT,SERUM 2.05 Result Comment: The validity of the calculated GFR AND GFRAA in patients over 70 years has not been determined. Clinical correlation is essential. LAB L501.1110 >60 mL/min Low EST GFR 25 Result Comment: Non- GFR Calc LAB L501.1115 >60 mL/min Low EST GFR - AA 30 Result Comment: GFR Calc LAB L501.1255 ml/min Normal Estimated CRCL 18.59 LAB L501.1300 10-20 RATIO Normal BUN/CRE 10.7 LAB L501.2200 8.5-10 mg/dL Low .1 CA 7.5 LAB L501.5300 136-14 mmol/L Normal 5 NA 140 LAB L501.5600 3.5-5. mmol/L Normal 1 K 3.6 LAB L501.5900 98-107 mmol/L High CL 111 LAB L501.6100 21.0-3 mmol/L Low 2.0 CO2 18.0 LAB L501.6200 5-15 Normal GAP 11 Performed By: #### L500.2500 #### [facility] [address] [place], [place], [address] BEDSIDE GLUCOSE Collected: 09/17/2018 Status: F Source: [place] 5:54 AM [facility] REPOSITORY TYPE CODE TESTS RESULT OUT OF REFERENCE UNITS RANGE LAB L501.080 70-110 mg/dL High BEDSIDE GLU 204 Result Comment: MANAGEMENT OF PATIENT CARE PER NURSING PROTOCOL Performed By: #### L501.080 #### [facility] Laboratory Point of Care [address] [place], [place] [address] CBC W/DIFF, AUTOMATED Collected: 09/17/2018 Status: F Source: [place] 4:10 AM [facility] REPOSITORY TYPE CODE TESTS RESULT OUT OF RANGE REFERENCE UNITS LAB L100.1000 4.4-11.0 K/mm3 Normal WBC 6.4 LAB L100.1200 4.2-5.4 M/mm3 Low RBC 2.23 LAB L100.1300 12.0-15.0 g/dl Low HGB 7.0 LAB L100.1400 37-47 % Low HCT 24.8 LAB L100.1500 81-99 fL High MCV 111.2 LAB L100.1600 27.0-32.0 pg Normal MCH 31.4 LAB L100.1700 32-36 g/gl Low MCHC 28.2 LAB L100.1810 11.6-14.6 % High RDW CV 18.4 LAB L100.1820 35.1-43.9 fl High RDW SD 71.4 LAB L100.1900 150-450 K/mm3 Normal PLT 178 LAB L100.2000 6.2-12.0 fl Normal MPV 10.1 LAB L100.2100 47-70 % High NEUT% 75.4 LAB L100.2200 19-41 % Low LY% 8.8 LAB L100.2300 0-10 % Normal MONO% 9.6 LAB L100.2400 0-5 % High EO% 5.7 LAB L100.2500 0-1 % Normal BASO% 0.3 LAB L100.2550 0.0-0.9 % Normal IM GRAN % 0.200 Result Comment: IG% - Immature Granulocytes (promyelocytes, myelocytes and metamyelocytes) > 1% indicates that a LEFT SHIFT is Present. LAB L100.2620 2.0-7.7 X10 3/uL Absolute Neut Normal 4.8 LAB L100.2720 0.83-4.51 X10 3/ul Low Absolute Lymph 0.56 LAB L100.4500 SMEAR COMMENT Normal SCAN LAB L100.7300 ANISO Normal 1+ LAB L100.7500 POLYCHROMASIA Normal 1+ LAB L100.7600 HYPOCHROMASIA Normal 1+ LAB L100.7700 MICROCYTES Normal 1+ Performed By: #### L100.0100 #### [facility] [address] [place], [place], [address] BEDSIDE GLUCOSE Collected: 09/16/2018 Status: F Source: [place] 11:14 PM [facility] REPOSITORY TYPE CODE TESTS RESULT OUT OF REFERENCE UNITS RANGE LAB L501.080 70-110 mg/dL High BEDSIDE GLU 173 Result Comment: MANAGEMENT OF PATIENT CARE PER NURSING PROTOCOL Performed By: #### L501.080 #### [facility] Laboratory Point of Care [address] [facility] [place], [place] [address] BEDSIDE GLUCOSE Collected: 09/16/2018 Status: F Source: [place] 5:43 PM [facility] REPOSITORY TYPE CODE TESTS RESULT OUT OF REFERENCE UNITS RANGE LAB L501.080 70-110 mg/dL High BEDSIDE GLU 167 Result Comment: MANAGEMENT OF PATIENT CARE PER NURSING PROTOCOL Performed By: #### L501.080 #### [facility] Laboratory Point of Care [address] [place] [address] BEDSIDE GLUCOSE Collected: 09/16/2018 Status: F Source: [place] 12:25 PM [facility] REPOSITORY TYPE CODE TESTS RESULT OUT OF REFERENCE UNITS RANGE LAB L501.080 70-110 mg/dL High BEDSIDE GLU 133 Result Comment: MANAGEMENT OF PATIENT CARE PER NURSING PROTOCOL Performed By: #### L501.080 #### [facility] Laboratory Point of Care [address] [place] [address] ELECTROENCEPHALOGRAM Observed: 09/16/2018 Status: F Source: [place] 12:04 PM [facility] REPOSITORY [facility] Pulmonary Services/Neurology [address] [place] [address] MR#: [id number] Acct: [id number] Name: Catie WYNN Rep #: [id number] : 1935 82 From: Donnie Perkins MD Referring Dr: Mohsen Goncalves Status: ADM IN Ordering Dr: Date: Location: ICU ICU02- Sex: F C - Electroencephalogram Date of service 09/15/18 This is an 18 channel echoencephalogram performed on this 82-year-old female with a history of stroke, and status epilepticus. The patient is now intubated in the ICU. Background activity is very slow at 3-4 Hz symmetrically in the posterior leads. Hyperventilation was not performed. The patient did undergo photic stimulation and EKG reference leads were obtained. The background activity remains slow throughout the recording without lateralizing or epileptiform changes. Hyperventilation again was not performed. EKG was normal throughout the recording and photic stimulation did demonstrate a normal symmetric driving response in the posterior leads. Impression this is an abnormal electroencephalogram due to the presence of diffuse severe slowing. There are no epileptiform changes noted 09/16/18 1204 <Electronically signed by Donnie Perkins MD> Date Donnie Perkins MD CC: Mohsen Goncalves; Clement Bueno MD; Donnie Perkins MD Date Dictated: 09/16/181201 Date Transcribed: 09/16/181201 Sales Manager: NF Signed BLOOD GASES BY CPS Collected: 09/16/2018 Status: F Source: [place] 6:49 AM [facility] REPOSITORY TYPE CODE TESTS RESULT OUT OF RANGE REFERENCE UNITS LAB L9000.9990 Normal BLD GAS TYPE ART LAB L9001.1000 Normal SITE R Radial LAB L9001.1010 Normal MAKSIM TEST NEG LAB L9001.1048 Normal Mode CPAP PS LAB L9001.1050 O2 Normal Delivery Dev Vent LAB L9001.1074 Normal FI02 30 LAB L9001.1076 Normal PEEP 5 LAB L9001.1078 PS Normal 5 LAB L9001.1104 Normal Results To ICU LAB L9001.1105 Normal Time Given 648 LAB L9001.1110 7.35-7.45 pH Normal - I-STAT 7.40 LAB L9001.1210 35-45 mmHg Low pCO2 - ISTAT 28.9 LAB L9001.1310 75-100 mmHG Normal PO2 I-STAT 100 LAB L9001.2300 22-26 mmol/L Low HCO3 ISTAT 18.0 LAB L9001.2400 -2 to +2 mmol/L Low BE ISTAT -7 LAB L9001.2415 mmol/L Normal TOTAL CO2 19 ISTAT LAB L9001.2425 95-99 % Normal SO2 ISTAT 98 Performed By: #### L9000.0800 #### [facility] Laboratory Point of Care [address] [place] [address] CONSULTATION Observed: 09/16/2018 Status: F Source: [place] 5:49 AM [facility] REPOSITORY [facility] Medical Records Department [address] [place] [address] Consultation 09/15/18 1332 MR#: [id number] Acct: [id number] Name: JIMENEZ WYNN Rep #: [id number] : 1935 82 From: Juan Jose Lemon MD PCP: Clement Bueno MD Status: ADM IN Y Location: ICU ICU02-1 Problem List (1) Acute respiratory failure Status: Acute (2) Lactic acidosis Status: Acute (3) Acute on chronic renal failure Status: Acute (4) Status epilepticus Status: Acute (5) Status post colostomy Status: Chronic (6) History of left colon perforation Status: Chronic (7) GERD (gastroesophageal reflux disease) Status: Chronic (8) Dysphagia Status: Chronic (9) Nonhealing nonsurgical wound with fat layer exposed Status: Chronic Comment: Abdominal. (10) Takotsubo cardiomyopathy Status: Chronic (11) Nonrheumatic tricuspid (valve) insufficiency Status: Chronic (12) Atherosclerotic heart disease of [place] coronary artery without angina pectoris Status: Chronic Qualifiers: [place] vs. transplanted heart: [place] heart Qualified Code(s): I25.10 - Atherosclerotic heart disease of [place] coronary artery without angina pectoris Comment: Mild (13) Hypothyroidism Status: Chronic Qualifiers: Hypothyroidism type: unspecified Qualified Code(s): E03.9 - Hypothyroidism, unspecified (14) COPD (chronic obstructive pulmonary disease) Status: Chronic Qualifiers: Emphysema type: unspecified (15) Hyperlipidemia Status: Chronic Qualifiers: Hyperlipidemia type: unspecified Qualified Code(s): E78.5 - Hyperlipidemia, unspecified (16) Type 2 diabetes mellitus Status: Chronic Qualifiers: Reason for Consult Date of Consultation: 09/15/18 History of Present Illness: The patient is a 82 year old F with past medical history listed below, who presented to [facility] on 09/15/2018 after being found unresponsive. Patient was reportedly of her usual health at 630 this morning, but shortly thereafter started to have seizure activity. Patient reportedly was intermittently seizing initially, but then became constant. EMS was called. Patient was given Versed and required bag valve respirations. Total time of seizure activity was estimated at 30-40 minutes. Patient did have half normal saline running through a left PICC line, but no other medications were infusing at that time. In the emergency room, patient was noted to be in the 70s on room air with improvement with bagged respirations. Patient was noted to have agonal respirations. Patient did have a leukocytosis of 13.7, elevated glucose at 202 and a lactate of 6.3. Patient did have pyuria without bacteriuria. Patient was noted to be a DNR Comfort Care arrest, but family at the bedside had stated they would be okay with intubation. Patient was intubated without paralytics and chest x-ray showed no obvious infiltrates. Patient did undergo a left partial colectomy with colostomy secondary to a perforated descending colon. Patient has had a recent ultrasound of her kidneys showing no hydronephrosis. Patient reportedly has no history of seizure disorders previously, but did have a previous left-sided stroke with right-sided facial deficits. On arrival to the intensive care unit, patient was not noted to be seizing. Patient was not following commands. No family was at the bedside. Patient did have good ventilator synchrony on low-dose propofol drip. Patient was hemodynamically stable and saturating well with mechanical ventilation. Past Medical History Past Medical History (Chronic Problems): Chronic Problems (Last Reviewed 09/15/18 @ 10:01 by Donnie Perkins MD) Status post colostomy (Chronic) History of left colon perforation (Chronic) GERD (gastroesophageal reflux disease) (Chronic) Dysphagia (Chronic) 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 Non-healing surgical wound (Chronic) Wound dehiscence, surgical (Chronic) Takotsubo cardiomyopathy (Chronic) Nonrheumatic tricuspid (valve) insufficiency (Chronic) Atherosclerotic heart disease of [place] coronary artery without angina pectoris (Chronic) Mild Hypothyroidism (Chronic) COPD (chronic obstructive pulmonary disease) (Chronic) Hyperlipidemia (Chronic) Type 2 diabetes mellitus (Chronic) Medical History: Medical History (Last Reviewed 09/15/18 @ 10:01 by Donnie Perkins MD) Takotsubo cardiomyopathy (Chronic) I51.81 Nonrheumatic tricuspid (valve) insufficiency (Chronic) I36.1 Atherosclerotic heart disease of [place] coronary artery without angina pectoris (Chronic) I25.10 Mild Hypothyroidism (Chronic) E03.9 COPD (chronic obstructive pulmonary disease) (Chronic) J44.9 Hyperlipidemia (Chronic) E78.5 Type 2 diabetes mellitus (Chronic) E11.9 Anemia D64.9 CVA (cerebral vascular accident) I63.9 Depression F32.9 Osteoarthritis M19.90 History of hysterectomy Z90.710 Allergies codeine Allergy (Severe, Verified 09/15/18 07:48) HEART ATTACK levofloxacin [From Levaquin] Allergy (Severe, Verified 09/15/18 07:48) Anaphylaxis Sulfa (Sulfonamide Antibiotics) Allergy (Unknown, Verified 09/15/18 07:48) Unknown adhesive tape Allergy (Verified 09/15/18 07:48) Other citalopram Allergy (Verified 09/15/18 07:48) Unknown Latex, Natural Rubber Allergy (Verified 09/15/18 07:48) Rash Penicillins Allergy (Verified 09/15/18 07:48) Rash acetaminophen [From Vicodin] Adverse Reaction (Verified 09/15/18 07:48) Chest tightness hydrocodone bitartrate [From Vicodin] Adverse Reaction (Verified 09/15/18 07:48) Chest tightness Home Medications: Ambulatory Orders Medication Instructions Recorded Albuterol Aerosols [Ventolin 2.5 mg INHALATION Q2H PRN PRN 09/15/18 Aerosols] Surgical History: Surgical History (Last Reviewed 09/15/18 @ 10:01 by Donnie Perkins MD) History of arthroplasty of right hip Z96.641 History of back surgery Z98.890 Lumbar Disc History of left hip replacement Z96.642 History of total bilateral knee replacement Z96.653 History of tonsillectomy Z90.89 Surgical History: hysterectomy, total hip arthroplasty, - - Fractured femur, bilateral knee surgeries and bilateral hip surgeries Psychiatric History: 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 Lives: [facility] Smoking Status: Never smoker Alcohol: None Drugs: None - *Family History Maternal Family History: Family History (Last Reviewed 09/15/18 @ 10:01 by Donnie Perkins MD) Mother Diabetes Brother Atrial fibrillation Brother Diabetes Sister Diabetes History Items: Diabetes Paternal Family History: Family History (Last Reviewed 09/15/18 @ 10:01 by Donnie Perkins MD) Mother Diabetes Brother Atrial fibrillation Brother Diabetes Sister Diabetes History Items: Diabetes, Heart Disease Review of Systems Unable to obtain accurate/complete ROS d/t: Intubated and unresponsive Patient Problems: Active and Suspected Problems (Last Reviewed 09/15/18 @ 10:01 by Donnie Perkins MD) Acute respiratory failure (Acute) Lactic acidosis (Acute) Acute on chronic renal failure (Acute) Status epilepticus (Acute) Subjective: Personally discussed case with hospitalist and neurology. Objective: All imaging was personally reviewed. Old CVA appreciated on CT scan. Chest x-ray showed endotracheal tube in appropriate position. - Physical Exam General: - - Intubated and sedated. RASS -4. Opens eyes to loud stimulus and suctioning. HEENT: Atraumatic, PERRLA, EOMI, Normocephalic, - - No scleral icterus or injection noted. Oral: Moist Mucosa, No Gingival or Mucosal Lesions/ Ulcerations Neck: Supple, No JVD, No Nodes, Trachea Midline Lungs: No rhonchi, No wheeze, No rales, Diminished, - - Mechanical breath sounds. Symmetric expansion. Cardiovascular: Regular rate, Regular Rhythm, Normal S1, Normal S2, No murmurs, No rub noted, No Gallop Abdomen: Bowel Sounds Present, Soft, Non Tender, Non-Distended, - - Colostomy bag in place. Wound VAC noted on midline surgical incision Extremities: No clubbing, No cyanosis, Edema - Trace Skin: Ulcer/ Wound, - - Incision noted midline. Musculoskeletal: No Tenderness to Palpation of Joints or Extremities Lymphatic: No Cervical, Supraclavicular, or Inguinal Adenopathy Neurological: - - Spontaneously opens eyes to loud noise, but falls asleep quickly. Flexor response to pain. No facial droop was appreciated. Positive cough and gag reflexes. Psych/Mental Status: - - Flat affect, but not following commands. Vital Signs Temp Pulse Resp BP Pulse Ox 37.6 C H 73 18 147/117 H 100 09/15/18 10:45 09/15/18 11:30 09/15/18 11:30 09/15/18 11:30 09/15/18 11:30 Oxygen Delivery Method Mechanical Ventilator Weight: 78.7 kg Body Mass Index (BMI) 29.6 Intake and Output for Last 24 Hours Intake Total 520 / 520 Output Total 420 / 420 Balance 100 / 100 Laboratory Tests Past 24 Hrs WBC RBC Hgb Hct MCV MCH MCHC RDW WBC RBC Hgb Hct MCV M[facility] RDW RDW Differential Plt Count POC Glucose POC Glucose 162 H Clinical Impression(s) from Imaging Studies Brain CT 09/15/18 08:01 IMPRESSION: 1. Chronic involutional changes of the brain. 2. No CT evidence of acute intracranial hemorrhage. 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 5. Bilateral mild mastoid disease. Electronically Signed: Brandy Bueno MD at 9:20 EST , Service support , Chest X-Ray 09/15/18 08:20 IMPRESSION: Appropriate positioning of endotracheal and enteric tubes. Electronically Signed: Brandy Bueno MD at 9:09 EST , Service support , Assessment/Plan Active and Suspected Problems (Last Reviewed 09/15/18 @ 10:01 by Donnie Perkins MD) Acute respiratory failure (Acute) Lactic acidosis (Acute) Acute on chronic renal failure (Acute) Status epilepticus (Acute) RECOMMENDATIONS: 1. Continue Keppra and propofol. 2. Continue neurologic exams 3. No further lactates required 4. Spontaneous breathing and awakening trials per protocol 5. Slow volume resuscitation 6. Wound nurse consultation for midline incision 7. Accu-Cheks with sliding scale insulin. Possible basal insulin once tube feeds initiated IMPRESSIONS: 1. Status epilepticus Patient with 20-30 minutes of seizure activity. EEG is currently pending. Did discuss with neurology and there is concern for seizure focus at old CVA site. We will continue with neurologic examinations. No signs of meningismus or meningitis at this time. Significant lactic acidosis on presentation has normalized. This would be consistent with patient's status epilepticus. 2. Acute hypoxic respiratory failure She noted to be 70s on room air on presentation. Patient is doing well on mechanical ventilation. ABG after intubation shows appropriate oxygenation and ventilation. Patient does not have a very good mental status at this time. We will continue with spontaneous breathing and awakening trials per protocol. 3. Acute cystitis/DEMETRA on CKD 3 Patient currently on empiric Zosyn therapy. Await culture data. Patient does have a leukocytosis, but no fevers have been reported. Patient's creatinine was significantly elevated approximately 2 weeks ago. This has been improving prior to discharge. However, patient's current creatinine is at 2.48. Unclear if this is a new baseline or patient needs to continue to previous baseline of 1.2-1.4 mg/dL. 4. Recent left colonic perforation Patient's postoperative course was complicated by wound dehiscence and infection. Patient has been treated with antibiotics in the past and has a wound VAC currently in place. Surgery was completed on July 27, 2018. Abdominal exam is relatively benign with a colostomy bag in good position. No signs superficially of infection. 5. Hypothyroidism/hyperlipidemia/COPD/chronic anemia/advanced age Complicates care, management, recovery and prognosis. Patient will continue with Accu-Cheks and sliding scale insulin. May need to initiate basal insulin with tube feeds if patient remains intubated. TIME: 50 minutes of critical care time spent addressing patient's status epilepticus, respiratory failure, acute kidney injury, review of all data and collaboration with care team (11 AM to 1:45 PM) Code Visit [id number]: [id number] Critical care first hour 09/16/18 0549 <Electronically signed by Juan Jose Lemon MD> Date Juan Jose Lemon MD Cosigner Signature (if applicable): Date CC: Juan Jose Lemon MD; Clement Bueno MD; Donnie Perkins MD Signed BEDSIDE GLUCOSE Collected: 09/16/2018 Status: F Source: FIRE[place]UGH 5:08 AM [facility] REPOSITORY TYPE CODE TESTS RESULT OUT OF RANGE REFERENCE UNITS LAB L501.080 70-110 mg/dL Normal BEDSIDE GLU 99 Result Comment: MANAGEMENT OF PATIENT CARE PER NURSING PROTOCOL Performed By: #### L501.080 #### [facility] Point of Care [facility] [place] [address] CBC W/DIFF, AUTOMATED Collected: 09/16/2018 Status: F Source: FIREBAUGH 4:10 AM [facility] REPOSITORY TYPE CODE TESTS RESULT OUT OF RANGE REFERENCE UNITS LAB L100.1000 4.4-11.0 K/mm3 Normal WBC 8.4 LAB L100.1200 4.2-5.4 M/mm3 Low RBC 2.62 LAB L100.1300 12.0-15.0 g/dl Low HGB 8.2 LAB L100.1400 37-47 % Low HCT 25.6 LAB L100.1500 81-99 fL Normal MCV 97.7 LAB L100.1600 27.0-32.0 pg Normal MCH 31.3 LAB L100.1700 32-36 g/gl Normal MCHC 32.0 LAB L100.1810 11.6-14.6 % High RDW CV 18.2 LAB L100.1820 35.1-43.9 fl High RDW SD 64.6 LAB L100.1900 150-450 K/mm3 Normal PLT 197 LAB L100.2000 6.2-12.0 fl Normal MPV 9.3 LAB L100.2100 47-70 % High NEUT% 71.8 LAB L100.2200 19-41 % Low LY% 11.9 LAB L100.2300 0-10 % Normal MONO% 9.9 LAB L100.2400 0-5 % High EO% 5.7 LAB L100.2500 0-1 % Normal BASO% 0.5 LAB L100.2550 0.0-0.9 % Normal IM GRAN % 0.200 Result Comment: IG% - Immature Granulocytes (promyelocytes, myelocytes and metamyelocytes) > 1% indicates that a LEFT SHIFT is Present. LAB L100.2620 2.0-7.7 X10 3/uL Normal Absolute Neut 6.0 LAB L100.2720 0.83-4.51 X10 3/ul Normal Absolute Lymph 1.00 Performed By: #### L100.0100 #### [facility] [address] [place], [place], [address] BASIC METABOLIC Collected: 09/16/2018 Status: F Source: FIRE[place]UGH PROFILE (BMP) 4:10 AM [facility] REPOSITORY TYPE CODE TESTS RESULT OUT OF RANGE REFERENCE UNITS LAB L501.0100 74-106 mg/dL High GLU 112 Result Comment: Fasting Glucose result from 100 to 125 mg/dL suggests IMPAIRED HOMEOSTASIS per A.D.A. criteria. Please note revised GLUCOSE reference range effective 2017. LAB L501.1000 7-18 mg/dL High BUN 30 LAB L501.1100 0.55-1.02 mg/dL High CREAT,SERUM 2.04 Result Comment: The validity of the calculated GFR AND GFRAA in patients over 70 years has not been determined. Clinical correlation is essential. LAB L501.1110 >60 mL/min Low EST GFR 25 Result Comment: Non- GFR Calc LAB L501.1115 >60 mL/min Low EST GFR - AA 30 Result Comment: GFR Calc LAB L501.1255 ml/min Normal Estimated CRCL 18.68 LAB L501.1300 10-20 RATIO Normal BUN/CRE 14.7 LAB L501.2200 8.5-10 mg/dL Low .1 CA 7.8 LAB L501.5300 136-14 mmol/L High 5 NA 146 LAB L501.5600 3.5-5. mmol/L Normal 1 K 4.0 LAB L501.5900 98-107 mmol/L High CL 116 LAB L501.6100 21.0-3 mmol/L Low 2.0 CO2 20.0 LAB L501.6200 5-15 Normal GAP 10 Performed By: #### L500.2500 #### [facility] [address] [place], [address] BEDSIDE GLUCOSE Collected: 09/16/2018 Status: F Source: GISSEL 3:32 AM [facility] REPOSITORY TYPE CODE TESTS RESULT OUT OF RANGE REFERENCE UNITS LAB L501.080 70-110 mg/dL Normal BEDSIDE GLU 98 Result Comment: MANAGEMENT OF PATIENT CARE PER NURSING PROTOCOL Performed By: #### L501.080 #### [facility] Point of Care [address] [place] [address] BEDSIDE GLUCOSE Collected: 09/16/2018 Status: F Source: GISSEL 3:05 AM [facility] REPOSITORY TYPE CODE TESTS RESULT OUT OF REFERENCE UNITS RANGE LAB L501.080 70-110 mg/dL Low BEDSIDE GLU 66 Result Comment: MANAGEMENT OF PATIENT CARE PER NURSING PROTOCOL Performed By: #### L501.080 #### [facility] Point of Care [address] [place] [address] BEDSIDE GLUCOSE Collected: 09/15/2018 Status: F Source: GISSEL 11:59 PM [facility] REPOSITORY TYPE CODE TESTS RESULT OUT OF RANGE REFERENCE UNITS LAB L501.080 70-110 mg/dL Normal BEDSIDE GLU 78 Result Comment: MANAGEMENT OF PATIENT CARE PER NURSING PROTOCOL Performed By: #### L501.080 #### [facility] Point of Care [address] [place] [address] BEDSIDE GLUCOSE Collected: 09/15/2018 Status: F Source: GISSEL 11:28 PM [facility] REPOSITORY TYPE CODE TESTS RESULT OUT OF REFERENCE UNITS RANGE LAB L501.080 70-110 mg/dL Low BEDSIDE GLU 51 Result Comment: MANAGEMENT OF PATIENT CARE PER NURSING PROTOCOL Performed By: #### L501.080 #### [facility] Point of Care [address] [place] [address] BEDSIDE GLUCOSE Collected: 09/15/2018 Status: F Source: GISSEL 5:45 PM [facility] REPOSITORY TYPE CODE TESTS RESULT OUT OF RANGE REFERENCE UNITS LAB L501.080 70-110 mg/dL Normal BEDSIDE GLU 82 Result Comment: MANAGEMENT OF PATIENT CARE PER NURSING PROTOCOL Performed By: #### L501.080 #### [facility] Point of Care [address] [place] [address] HISTORY AND PHYSICAL Observed: 09/15/2018 Status: F Source: FIREBAUGH EXAM 2:06 PM [facility] REPOSITORY [facility] Medical Records Department [address] [place] [address] History and Physical 09/15/18 1044 MR#: [id number] Acct: [id number] Name: JIMENEZ WYNN Rep #: [id number] : 1935 82 From: Mohsen Goncalves MD PCP: Clement Bueno MD Status: ADM IN Y Location: ICU ICU02-1 Problem List (1) Acute respiratory failure Status: Acute (2) Lactic acidosis Status: Acute (3) Acute on chronic renal failure Status: Acute (4) Status epilepticus Status: Acute (5) Status post colostomy Status: Chronic (6) GERD (gastroesophageal reflux disease) Status: Chronic (7) Wound dehiscence, surgical Status: Chronic (8) Takotsubo cardiomyopathy Status: Chronic (9) Atherosclerotic heart disease of [place] coronary artery without angina pectoris Status: Chronic Qualifiers: [place] vs. transplanted heart: [place] heart Qualified Code(s): I25.10 - Atherosclerotic heart disease of [place] coronary artery without angina pectoris Comment: Mild (10) Hypothyroidism Status: Chronic Qualifiers: Hypothyroidism type: unspecified Qualified Code(s): E03.9 - Hypothyroidism, unspecified (11) COPD (chronic obstructive pulmonary disease) Status: Chronic Qualifiers: Emphysema type: unspecified (12) Hyperlipidemia Status: Chronic Qualifiers: Hyperlipidemia type: unspecified Qualified Code(s): E78.5 - Hyperlipidemia, unspecified (13) Type 2 diabetes mellitus Status: Chronic Qualifiers: History of Present Illness Date of Admission: 09/15/18 Chief Complaint: Unresponsiveness, status epilepticus. The patient is a 82 year old F with past medical history as mentioned above [facility] because of continuous seizure. At this time, patient is intubated and on mechanical ventilation and she is not able to provide any history. No family members at the bedside. According to the ER physician, this morning around 6:30 AM, patient was seen by her PCP and she was okay. Shortly after, she was noted to have seizure involving her both upper extremities and her face and she was seizing for about 30-40 minutes. She was given IV Versed but patient continued to seize. At later time, patient's daughter was available at the bedside who is the power of food and nutrition services supervisor. She stated that her mother had single one-time seizure back in August, but never been on antiseizure medications. She had a recent history of left colon perforation complicated by peritonitis for which she underwent exploratory laparotomy, left colon resection and end colostomy on July,. Her postoperative course complicated by surgical abdominal wound infection and dehiscence status post wound VAC insertion. She has a history of type 2 diabetes mellitus which is apparently uncontrolled and she has been on Lantus insulin as well as sliding scale and her hemoglobin A1c was 10 on July,. She has history of coronary artery disease without prior interventions and she has been on aspirin and metoprolol. She has a history of Takotsubo cardiomyopathy which has been improving and she had 2D echocardiogram on Mar, 2018 that showed ejection fraction of 65%. At this time, no evidence of acute CHF. In the emergency department, patient was unresponsive. She was afebrile, blood pressure and heart rate are stable. She was intubated and started on mechanical ventilation for airway protection. Her routine blood work was remarkable for leukocytosis, hemoglobin of 9.7 g/dL. Creatinine is 2.48. Lactic acid was 6.3. EKG revealed no acute ischemic changes. Troponin was negative. LFT and lipase were normal. Urinalysis revealed cloudy urine, negative for nitrite, positive for leukocyte esterase and there was more than 100 WBCs consistent with pyuria and there was 0 bacteria seen. Urine drug screen was negative. ABG revealed pH of 7.33, PCO2 of 26 [address] PO[address] of [address] CT scan brain showed no evidence of acute infarction or hemorrhage. She is being admitted for status epilepticus without history of seizure disorder in the past, also admitted for lactic acidosis which is attributed to status epilepticus, also found to have acute on chronic renal failure and acute cystitis. Past Medical History Past Medical History (Chronic Problems): Chronic Problems (Last Reviewed 09/15/18 @ 10:01 by Donnie Perkins MD) Status post colostomy (Chronic) History of left colon perforation (Chronic) GERD (gastroesophageal reflux disease) (Chronic) Dysphagia (Chronic) 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 Non-healing surgical wound (Chronic) Wound dehiscence, surgical (Chronic) Takotsubo cardiomyopathy (Chronic) Nonrheumatic tricuspid (valve) insufficiency (Chronic) Atherosclerotic heart disease of [place] coronary artery without angina pectoris (Chronic) Mild Hypothyroidism (Chronic) COPD (chronic obstructive pulmonary disease) (Chronic) Hyperlipidemia (Chronic) Type 2 diabetes mellitus (Chronic) Medical History: Medical History (Last Reviewed 09/15/18 @ 10:01 by Donnie Perkins MD) Takotsubo cardiomyopathy (Chronic) I51.81 Nonrheumatic tricuspid (valve) insufficiency (Chronic) I36.1 Atherosclerotic heart disease of [place] coronary artery without angina pectoris (Chronic) I25.10 Mild Hypothyroidism (Chronic) E03.9 COPD (chronic obstructive pulmonary disease) (Chronic) J44.9 Hyperlipidemia (Chronic) E78.5 Type 2 diabetes mellitus (Chronic) E11.9 Anemia D64.9 CVA (cerebral vascular accident) I63.9 Depression F32.9 Osteoarthritis M19.90 History of hysterectomy Z90.710 Allergies codeine Allergy (Severe, Verified 09/15/18 07:48) HEART ATTACK levofloxacin [From Levaquin] Allergy (Severe, Verified 09/15/18 07:48) Anaphylaxis Sulfa (Sulfonamide Antibiotics) Allergy (Unknown, Verified 09/15/18 07:48) Unknown adhesive tape Allergy (Verified 09/15/18 07:48) Other citalopram Allergy (Verified 09/15/18 07:48) Unknown Latex, Natural Rubber Allergy (Verified 09/15/18 07:48) Rash Penicillins Allergy (Verified 09/15/18 07:48) Rash acetaminophen [From Vicodin] Adverse Reaction (Verified 09/15/18 07:48) Chest tightness hydrocodone bitartrate [From Vicodin] Adverse Reaction (Verified 09/15/18 07:48) Chest tightness Home Medications: Ambulatory Orders Medication Instructions Recorded Amiodarone HCl [Cordarone] 200 mg PO DAILY 09/15/18 Argin/Glut/Cahmb/Collag/Mv-Min 1 each PO BID 09/15/18 [Harsha Packet] Aspirin [Aspirin, Baby] 81 mg PO DAILY@0800 09/15/18 Surgical History: Surgical History (Last Reviewed 09/15/18 @ 10:01 by Donnie Perkins MD) History of arthroplasty of right hip Z96.641 History of back surgery Z98.890 Lumbar Disc History of left hip replacement Z96.642 History of total bilateral knee replacement Z96.653 History of tonsillectomy Z90.89 Surgical History: hysterectomy, total hip arthroplasty, - - Fractured femur, bilateral knee surgeries and bilateral hip surgeries Psychiatric History: 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 Eyes: Reports: - - Unobtainable, patient is intubated. HEENT: Reports: - - Unobtainable, patient is intubated. Cardiovascular: Reports: - - Unobtainable, patient is intubated. Respiratory: Reports: - - Unobtainable, patient is intubated. Gastrointestinal: Reports: - - Unobtainable, patient is intubated. Genitourinary: Reports: - - Unobtainable, patient is intubated. Musculoskeletal: Reports: - - Unobtainable, patient is intubated. Skin: Reports: - - Unobtainable, patient is intubated. Neurological: Reports: - - Unobtainable, patient is intubated. Endocrine: Reports: - - Unobtainable, patient is intubated. VTE Information - Inpt Only VTE Present on Admission: No VTE Mechan Device Prophylaxis: SCD's VTE Pharm Prophylaxis ordered?: Yes Patient Problems: Active and Suspected Problems (Last Reviewed 09/15/18 @ 10:01 by Donnie Perkins MD) Acute respiratory failure (Acute) Lactic acidosis (Acute) Acute on chronic renal failure (Acute) Status epilepticus (Acute) - Physical Exam General: - - Patient is intubated, spontaneous eye opening, flexor response to pain. HEENT: Atraumatic, PERRLA, EOMI Oral: Moist Mucosa, No Gingival or Mucosal Lesions/ Ulcerations Neck: Supple, No JVD, Negative Carotid Bruits, Trachea Midline, Thyroid Normal Size and Texture Lungs: Clear to auscultation, No wheeze, No rales, Diminished, Rhonchi Cardiovascular: Regular rate, Regular Rhythm, Normal S1, Normal S2, PMI Normal Abdomen: Bowel Sounds Present, Soft, Non Tender, Non-Distended, No Hepato-splenomegaly, - - Colostomy bag in place. Wound VAC on the midline surgical wound. Extremities: No clubbing, No cyanosis, Edema - Trace edema. Skin: No rashes, Ulcer/ Wound, Incision Lymphatic: No Cervical, Supraclavicular, or Inguinal Adenopathy Neurological: - - Unable to assess. At this time, patient started to wake up, spontaneous eye opening and flexor response to pain. Psych/Mental Status: - - Unable to assess. Vital Signs Temp Pulse Resp BP Pulse Ox 99.7 F H 75 17 151/82 H 100 09/15/18 09:45 09/15/18 10:00 09/15/18 10:00 09/15/18 10:00 09/15/18 10:00 Oxygen Delivery Method Mechanical Ventilator Weight: 182 lb 12.211 oz Body Mass Index (BMI) 31.4 Intake and Output for Last 24 Hours Output Total 220 / 220 Balance -220 / -220 Laboratory Tests Past 24 Hrs WBC RBC Hgb Hct MCV MCH MCHC RDW WBC Clinical Impression(s) from Imaging Studies Brain CT 09/15/18 08:01 IMPRESSION: 1. Chronic involutional changes of the brain. 2. No CT evidence of acute intracranial hemorrhage. 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 5. Bilateral mild mastoid disease. Electronically Signed: Brandy Bueno MD at 9:20 EST , Service support , Chest X-Ray 09/15/18 08:20 IMPRESSION: Appropriate positioning of endotracheal and enteric tubes. Electronically Signed: Brandy Bueno MD at 9:09 EST , Service support , Assessment/Plan All Active Problems (Last Reviewed 09/15/18 @ 10:01 by Donnie Perkins MD) Acute respiratory failure (Acute) Lactic acidosis (Acute) Acute on chronic renal failure (Acute) Status epilepticus (Acute) This is an 82 years old female patient presented [facility] because of status epilepticus, found to have lactic acidosis which is attributed to continuous seizure, found to have acute kidney injury on top of stage III chronic kidney disease as well as acute cystitis, was intubated for airway protection. #1 status epilepticus: Without prior history of seizure disorder. Reportedly, patient was seizing for about 30-40 minutes. She received IV Versed by the squad. She was started on IV Keppra in the ER. CT scan brain showed no acute findings. Initially, she was unresponsive, absent corneal reflex and no motor movements. At this time, she started to wake, spontaneous eye opening, flexor response to pain. She is on mechanical ventilation. Blood pressure, heart rate are stable. She is afebrile. Plan: Admit to ICU, critical care monitoring, complete bedrest, insert Benitez catheter, IV fluids, keep on n.p.o., vent management per protocol, continue IV propofol for sedation, critical care consult, IV Keppra twice daily, neurology consult, EEG, IV Pepcid twice daily, IV antiemetics, aspiration precautions, repeat CBC and BMP tomorrow morning. #2 acute respiratory failure: Patient was intubated for airway protection. ABG revealed pH 7.33, PCO2 46 and PO2 of 93. Plan for vent management per protocol, suction, wound care, critical care consult, continue sedation with IV propofol. #3 lactic acidosis: This is likely because of status epilepticus. Patient does have acute cystitis with obvious pyuria although urinalysis was negative for bacteria. Plan: Urine culture, blood culture, start empiric IV Zosyn. #4 acute cystitis: Urinalysis reviewed. It has more than 100 WBCs but no bacteria. Plan as above, urine culture, IV Zosyn. #4 acute kidney injury on top of stage III chronic kidney disease: Baseline creatinine has been around 1.2-1.4 mg/dL. Since September 06, 2018, creatinine has been worsening, it was up to 5.48 around 2 weeks ago. Since then, but has been improving and it is down to 2.48 today but still above baseline range. Plan: IV fluids, input output chart, repeat BMP tomorrow morning. #6 recent history of left colonic perforation: Status post exploratory laparotomy, left colon resection and colostomy. Postoperative course complicated by wound dehiscence and infection, status post treatment with antibiotics and wound VAC insertion. Surgery was done on July 27, 2018. Abdominal examination is benign. Colostomy bag in place, no stool in it. Wound VAC is inserted to the midline surgical scar/wound. No significant erythema or swelling around the surgical incision/wound. Apparently, patient completed antibiotics. Plan: Wound care nurse consult. #7 chronic anemia: It is normocytic anemia secondary to anemia of chronic disease. Baseline hemoglobin has been around 8-9 g/dL. Admission hemoglobin is 9.7 g/dL, stable. No evidence of active bleeding. Plan to monitor CBC, transfuse if hemoglobin less than 8 g/dL. #8 type 2 diabetes mellitus: Keep on n.p.o., IV fluids, Accu- Cheks every 6 hours, insulin sliding scale every 6 hours. #9 hypothyroidism: Hold levothyroxine at this time. #10 hyperlipidemia: She is not on any statins. 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 No acute CHF. #12 COPD: Intubated, on mechanical ventilation. #13 CODE STATUS: DNR CCA. Patient was intubated for airway protection. I discussed the CODE STATUS with the patient's daughter who is the power of food and nutrition services supervisor and she confirmed that the patient is DNR CCA. This note was generated with Dragon dictation software. It may contain incorrect words, spelling, and punctuation that were not noted in checking the note before signing. Code Visit Inpatient E AND M: 13959 Init Hosp L3 09/15/18 1406 <Electronically signed by Mohsen Goncalves MD> Date Mohsen Goncalves MD Cosigner Signature: Date (if applicable) CC: Mohsen Goncalves; Clement Bueno MD Signed LACTIC ACID Collected: 09/15/2018 Status: F Source: GISSEL 12:30 PM [facility] REPOSITORY Order Comment: Yes/No query for Sepsis Lactate Rule Y TYPE CODE TESTS RESULT OUT OF RANGE REFERENCE UNITS LAB L503.6005 0.4-2.0 mmol/L Normal LACTIC ACID 1.5 Performed By: #### L503.6005 #### [facility] [address] [place], [address] BEDSIDE GLUCOSE Collected: 09/15/2018 Status: F Source: GISSEL 12:19 PM [facility] REPOSITORY TYPE CODE TESTS RESULT OUT OF REFERENCE UNITS RANGE LAB L501.080 70-110 mg/dL High BEDSIDE GLU 162 Result Comment: MANAGEMENT OF PATIENT CARE PER NURSING PROTOCOL Performed By: #### L501.080 #### [facility] Point of Care [address] [place] [address] CONSULTATION Observed: 09/15/2018 Status: F Source: GISSEL 11:38 AM [facility] REPOSITORY [facility] Medical Records Department [address] [place] [address] Consultation 09/15/18 1000 MR#: [id number] Acct: [id number] Name: JIMENEZ WYNN Rep #: [id number] : 1935 82 From: Donnie Perkins MD PCP: Clement Bueno MD Status: ADM IN Y Location: ICU ICU02-1 Reason for Consult Date of Consultation: 09/15/18 Reason for Consultation: status epilepticus History of Present Illness: The patient is a 82 year old F [facility] with status epilepticus as below. Is now intubated in the intensive care unit, EEG is in process. I discussed the case with the emergency room physician, initially she was unresponsive and reportedly had unreactive pupils but she is responsive to pain now and moving spontaneously. Per ER notes: History of Present Illness: The patient is a 82 F who at 630 this morning was noted at the jail by her primary care physician to be in her steady state. Shortly thereafter the patient was noted to have seizure activity. Reportedly was intermittent but became constant. EMS was called and they note seizure activity of the arms the face. He states that they gave Versed. After Versed she required bag respirations. Total time of seizure activity was estimated to be 30-40 minutes. EMS notes that that she has half normal saline running through a left arm PICC line. In July the patient presented to the emergency department with evidence of perforated descending colon. 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 Apparently she had wound healing issues but has been doing fine. She is been at the jail and in the past week was noted to have acute kidney injury. Creatinine up to 3.6. BUN in the 60s. Ultrasound of the kidneys demonstrated no hydronephrosis. Patient has no reported seizure history. 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 Past Medical History Past Medical History (Chronic Problems): Chronic Problems (Last Reviewed 09/15/18 @ 10:01 by Donnie Perkins MD) Status post colostomy (Chronic) History of left colon perforation (Chronic) GERD (gastroesophageal reflux disease) (Chronic) Dysphagia (Chronic) 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 Non-healing surgical wound (Chronic) Wound dehiscence, surgical (Chronic) Takotsubo cardiomyopathy (Chronic) Nonrheumatic tricuspid (valve) insufficiency (Chronic) Atherosclerotic heart disease of [place] coronary artery without angina pectoris (Chronic) Mild Hypothyroidism (Chronic) COPD (chronic obstructive pulmonary disease) (Chronic) Hyperlipidemia (Chronic) Type 2 diabetes mellitus (Chronic) Medical History: Medical History (Last Reviewed 09/15/18 @ 10:01 by Donnie Perkins MD) Takotsubo cardiomyopathy (Chronic) I51.81 Nonrheumatic tricuspid (valve) insufficiency (Chronic) I36.1 Atherosclerotic heart disease of [place] coronary artery without angina pectoris (Chronic) I25.10 Mild Hypothyroidism (Chronic) E03.9 COPD (chronic obstructive pulmonary disease) (Chronic) J44.9 Hyperlipidemia (Chronic) E78.5 Type 2 diabetes mellitus (Chronic) E11.9 Anemia D64.9 CVA (cerebral vascular accident) I63.9 Depression F32.9 Osteoarthritis M19.90 History of hysterectomy Z90.710 Allergies codeine Allergy (Severe, Verified 09/15/18 07:48) HEART ATTACK levofloxacin [From Levaquin] Allergy (Severe, Verified 09/15/18 07:48) Anaphylaxis Sulfa (Sulfonamide Antibiotics) Allergy (Unknown, Verified 09/15/18 07:48) Unknown adhesive tape Allergy (Verified 09/15/18 07:48) Other citalopram Allergy (Verified 09/15/18 07:48) Unknown Latex, Natural Rubber Allergy (Verified 09/15/18 07:48) Rash Penicillins Allergy (Verified 09/15/18 07:48) Rash acetaminophen [From Vicodin] Adverse Reaction (Verified 09/15/18 07:48) Chest tightness hydrocodone bitartrate [From Vicodin] Adverse Reaction (Verified 09/15/18 07:48) Chest tightness Home Medications: Ambulatory Orders Medication Instructions Recorded Albuterol Aerosols [Ventolin 2.5 mg INHALATION Q2H PRN PRN 09/15/18 Aerosols] Surgical History: Surgical History (Last Reviewed 09/15/18 @ 10:01 by Donnie Perkins MD) History of arthroplasty of right hip Z96.641 History of back surgery Z98.890 Lumbar Disc History of left hip replacement Z96.642 History of total bilateral knee replacement Z96.653 History of tonsillectomy Z90.89 Surgical History: hysterectomy, total hip arthroplasty, - - Fractured femur, bilateral knee surgeries and bilateral hip surgeries Smoking Status: Never smoker - *Family History Maternal Family History: Family History (Last Reviewed 09/15/18 @ 10:01 by Donnie Perkins MD) Mother Diabetes Brother Atrial fibrillation Brother Diabetes Sister Diabetes History Items: Diabetes Paternal Family History: Family History (Last Reviewed 09/15/18 @ 10:01 by Donnie Perkins MD) Mother Diabetes Brother Atrial fibrillation Brother Diabetes Sister Diabetes History Items: Diabetes, Heart Disease Review of Systems Unable to obtain accurate/complete ROS d/t: Intubated Patient Problems: Active and Suspected Problems (Last Reviewed 09/15/18 @ 10:01 by Donnie Perkins MD) Acute respiratory failure (Acute) Lactic acidosis (Acute) Acute on chronic renal failure (Acute) Status epilepticus (Acute) Objective: The patient is intubated Pupils are equal bilaterally Symmetric grimace to noxious stimuli Withdraws both hands and both feet to noxious stimuli Does not respond to commands - Physical Exam Vital Signs Temp Pulse Resp BP Pulse Ox 37.6 C H 77 18 123/97 H 99 09/15/18 09:45 09/15/18 09:45 09/15/18 09:45 09/15/18 09:45 09/15/18 09:45 Oxygen Delivery Method Mechanical Ventilator Weight: 82.9 kg Body Mass Index (BMI) 31.4 Laboratory Tests Past 24 Hrs WBC RBC Hgb Hct MCV MCH MCHC RDW WBC Current Medications Generic Name Dose Route Start Last Admin I reviewed CT today compared to CT 03/18, she has a chronic left MCA distribution infarct which today does look somewhat larger than previous scan but it looks old in any event on both scans and may be due to positioning in the scanner. Assessment/Plan All Active Problems (Last Reviewed 09/15/18 @ 10:01 by Donnie Perkins MD) Acute respiratory failure (Acute) Lactic acidosis (Acute) Acute on chronic renal failure (Acute) Status epilepticus (Acute) Status epilepticus: Likely due to old stroke. Character of the stroke although still looks chronic on CAT scan has changed from previous CAT scan. * MRI brain when able * EEG in process preliminarily no epileptiform discharges * Received 1000 mg IV Keppra, continue 500 twice daily 09/15/18 1138 <Electronically signed by Donnie Perkins MD> Date Donnie Perkins MD Cosigner Signature (if applicable): Date CC: Juan Jose Lemon MD; Clement Bueno MD; Donnie Perkins MD Signed Observed: 09/15/2018 Status: F Source: GISSEL CULTURE, BLOOD (WB) 9:00 AM [facility] REPOSITORY BC No growth in 5 days. Performed By: #### M200.1000 #### [facility] [address] [place], [address] BLOOD GASES BY CPS Collected: 09/15/2018 Status: F Source: GISSEL 8:32 AM [facility] REPOSITORY TYPE CODE TESTS RESULT OUT OF RANGE REFERENCE UNITS LAB L9000.9990 Normal BLD GAS TYPE ART LAB L9001.1000 Normal SITE L Radial LAB L9001.1010 Normal MAKSIM TEST POS LAB L9001.1048 Normal Mode A-C LAB L9001.1050 O2 Normal Delivery Dev Vent LAB L9001.1065 Vt Normal 450 LAB L9001.1070 RR Normal 12 LAB L9001.1074 Normal FI02 40 LAB L9001.1076 Normal PEEP 5 LAB L9001.1104 Normal Results To ED MD LAB L9001.1105 Normal Time Given 831 LAB L9001.1110 7.35-7.45 Low pH - I-STAT 7.33 LAB L9001.1210 35-45 mmHg Low pCO2 - ISTAT 26.7 LAB L9001.1310 75-100 mmHG Normal PO2 I-STAT 93 LAB L9001.2300 22-26 mmol/L Low HCO3 ISTAT 14.1 LAB L9001.2400 -2 to +2 mmol/L Low BE ISTAT -12 LAB L9001.2415 mmol/L Normal TOTAL CO2 15 ISTAT LAB L9001.2425 95-99 % Normal SO2 ISTAT 97 Performed By: #### L9000.0800 #### [facility] Point of Care [address] [place], [place] [address] URINE DRUG SCREEN Collected: 09/15/2018 Status: F Source: GISSEL (VISTA) 8:05 AM [facility] REPOSITORY TYPE CODE TESTS RESULT OUT OF RANGE REFERENCE UNITS LAB L505.0075 TO BE Normal CONFIRMED Result Comment: CONFIRMATORY TESTING FOR ALL POSITIVE URINE DRUG SCREEN RESULTS WILL ONLY BE SENT OUT UPON PHYSICIAN ORDER. VISTA Urine Drug Screen methods provide only preliminary analytical test results. A more specific alternate chemical method must be used in order to obtain a confirmed analytical result. Gas chromatography/mass spectrometery (GC/MS) is the preferred confirmatory method. Clinical consideration and professional judgement should be applied to any drug of abuse test result, particularly when preliminary positive results are used. URINE TCA TESTING MUST BE ORDERED SEPARATELY. USE TEST MNEMONIC: [facility] LAB L505.5005 VISTA UDS PH 5 Normal LAB L505.5015 <1000 ng/mL AMPHETAMINES Normal NEGATIVE LAB L505.5025 < 200 ng/mL BARBITIURATES Normal NEGATIVE LAB L505.5035 < 200 ng/mL BENZODIAZIPINE Normal NEGATIVE LAB L505.5045 < 300 ng/mL COCAINE Normal NEGATIVE LAB L505.5055 < 500 ng/mL ECSTACY Normal NEGATIVE LAB L505.5065 < 300 ng/mL METHADONE Normal NEGATIVE LAB L505.5075 < 300 ng/mL OPIATES Normal NEGATIVE LAB L505.5085 < 25 ng/mL PCP Normal NEGATIVE LAB L505.5095 < 50 ng/mL THC Normal NEGATIVE Performed By: #### L505.5000 #### [facility] [address] [place], [place], [address] URINALYSIS, COMPLETE Collected: 09/15/2018 Status: F Source: FIREBAUGH 8:05 AM [facility] REPOSITORY Order Comment: Microscopic field is filled. Other elements may be obscured. How was Urine Obtained? CLEAN CATCH TYPE CODE TESTS RESULT OUT OF RANGE REFERENCE UNITS LAB L400.3000 Yellow COLOR Normal Yellow LAB L400.3050 Clear Normal CLARITY Sl. Cloudy LAB L400.3200 Normal mg/dl Normal GLUCOSE, UR Normal LAB L400.3300 Negative mg/dL Normal BILIRUBIN URINE Negative LAB L400.3400 Negative mg/dl Normal KETONE UR Negative LAB L400.3465 1.002-1.030 Normal SP.GR. DIPSTX 1.015 LAB L400.3550 5.0 - 8.0 pH UR Normal 5.0 LAB L400.3600 Negative mg/dl High PROT 30 DIPSTX LAB L400.3700 Normal mg/dl Normal UROBILI Normal LAB L400.3750 Negative Normal NITRITE UR Negative LAB L400.3780 Negative /ul High 50 OCCULT BLOOD-UR LAB L400.3800 Negative /ul High LEUK ESTERASE 500 LAB L400.4050 0-5 /hpf WBC Normal >100 SEEN LAB L400.4100 0-5 /hpf 0 Normal RBC-UA SEEN LAB L400.4150 5-10 /hpf SQUAM 0 Normal EPI SEEN LAB L400.4300 None Seen /hpf 0 Normal BACTERIA SEEN LAB L400.4350 <or=2+ /hpf 0 Normal MUCUS, URINE SEEN Performed By: #### L400.0001 #### [facility] [address] [place], [address] Observed: 09/15/2018 Status: F Source: FIREBAUGH CULTURE, URINE 8:05 AM [facility] REPOSITORY Urine Culture Further studies to follow. ORGANISM 1: Laila albicans Frierson Count >100,000 Performed By: #### M100.0650 #### [facility] [address] [place], [address] CHEST 1 VIEW Observed: 09/15/2018 Status: F Source: GISSEL (PORTABLE) 8:04 AM [facility] REPOSITORY [facility] Imaging Services [address] [place] [address] Chest 1 View (Portable) MR#: [id number] Acct: [id number] Name: JIMENEZ WYNN Rep #: [id number] : 1935 F 82 From: Brandy Bueno MD PCP: Clement Bueno MD Status: REG ER Study: Chest 1 View (Portable) Date of Exam: 09/15/18 Exam# [id number] Ordering Dr: Franklyn Gates DO STUDY: X-RAY CHEST REASON FOR EXAM: Female, 82 years old. Unresponsive patient. Patient had a seizure around 6:30 AM. TECHNIQUE: Two AP portable views of the chest. COMPARISON: July 27, 2018. FINDINGS: Tip of the endotracheal tube is at the aortic arch. Enteric tube is visible with the distal and below the inferior edge of the image. Cardiac monitoring leads are present. The lungs are hyperexpanded. There is suggestion for right basilar subsegmental atelectasis. Left lung appears to be clear. There is no demonstrated pleural abnormality. There is mild cardiac enlargement. Normal mediastinum and aruna. Normal visualized pulmonary arteries. There is atherosclerotic calcification of the aortic arch with tortuosity. There is demineralization of the osseous structures. Normal visualized ribs, clavicles, and shoulders. There is no demonstrated abnormality of the visualized soft tissue structures of the upper abdomen. RAD/Chest 1 View (Portable) IMPRESSION: Appropriate positioning of endotracheal and enteric tubes. Electronically Signed: Brandy Bueno MD at 9:09 EST , Service support , CC: Franklyn Gates DO; Clement Bueno MD Sales Manager: Signed BRAIN/HEAD WITHOUT Observed: 09/15/2018 Status: F Source: FIRE[place]UGH CONTRAST 8:04 AM [facility] REPOSITORY [facility] Imaging Services [address] [place] [address] Brain/Head without Contrast MR#: [id number] Acct: [id number] Name: JIMENEZ WYNN Rep #: [id number] : 1935 F 82 From: Brandy Bueno MD PCP: Clement Bueno MD Status: REG ER Study: Brain/Head without Contrast Date of Exam: 09/15/18 Exam# [id number] Ordering Dr: Franklyn Gates DO STUDY: CT BRAIN WITHOUT CONTRAST REASON FOR EXAM: Female, 82 years old. Seizure. RADIATION DOSAGE (If Supplied By Facility): CTDIvol = ( 44.99 ) mGy, DLP = ( 745.49 ) mGycm TECHNIQUE: Transaxial CT imaging of the brain was performed without administration of intravenous contrast material. Multiplanar reformations are submitted for interpretation. Individualized dose optimization techniques were used for this CT. COMPARISON: CT of the head dated March 26, 2017. FINDINGS: Normal soft tissue structures. Normal calvarium. There is opacification of several posterior mastoid air cells. This is new since the previous CT. There is mild cerebral atrophy with widening of the extra- axial spaces and ventricular dilatation. There is encephalomalacia within the left parietal lobe primarily due to old infarct. This is unchanged since the previous study. There are areas of decreased attenuation within the white matter tracts of the supratentorial brain, consistent with microvascular disease changes. Normal basal ganglia and thalami. Normal brainstem. There are multiple areas of encephalomalacia in the cerebellum probably related to old infarcts. This was visible on previous CT. There is no intracranial hemorrhage. There is mild atherosclerotic calcification of intracranial arteries. There is complete opacification of the right maxillary sinus, similar to previous study. There is thickening of the rob of bilateral maxillary sinuses may be the result of chronic inflammation. CT/Brain/Head without Contrast IMPRESSION: 1. Chronic involutional changes of the brain. 2. No CT evidence of acute intracranial hemorrhage. 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 5. Bilateral mild mastoid disease. Electronically Signed: Brandy Bueno MD at 9:20 EST , Service support , CC: Franklyn Gates DO; Clement Bueno MD Sales Manager: Signed CBC W/DIFF, AUTOMATED Collected: 09/15/2018 Status: F Source: GISSEL 8:00 AM [facility] REPOSITORY TYPE CODE TESTS RESULT OUT OF RANGE REFERENCE UNITS LAB L100.1000 4.4-11.0 K/mm3 High WBC 13.7 LAB L100.1200 4.2-5.4 M/mm3 Low RBC 3.03 LAB L100.1300 12.0-15.0 g/dl Low HGB 9.7 LAB L100.1400 37-47 % Low HCT 30.1 LAB L100.1500 81-99 fL High MCV 99.3 LAB L100.1600 27.0-32.0 pg Normal MCH 32.0 LAB L100.1700 32-36 g/gl Normal MCHC 32.2 LAB L100.1810 11.6-14.6 % High RDW CV 17.7 LAB L100.1820 35.1-43.9 fl High RDW SD 62.2 LAB L100.1900 150-450 K/mm3 Normal PLT 337 LAB L100.2000 6.2-12.0 fl Normal MPV 9.3 LAB L100.2100 47-70 % High NEUT% 72.1 LAB L100.2200 19-41 % Low LY% 15.0 LAB L100.2300 0-10 % Normal MONO% 6.2 LAB L100.2400 0-5 % High EO% 5.7 LAB L100.2500 0-1 % Normal BASO% 0.4 LAB L100.2550 0.0-0.9 % Normal IM GRAN % 0.600 Result Comment: IG% - Immature Granulocytes (promyelocytes, myelocytes and metamyelocytes) > 1% indicates that a LEFT SHIFT is Present. LAB L100.2620 2.0-7.7 X10 3/uL High Absolute Neut 9.9 LAB L100.2720 0.83-4.51 X10 3/ul Normal Absolute Lymph 2.05 Performed By: #### L100.0100 #### [facility] [address] [place], [address] PROTHROMBIN TIME W/INR Collected: 09/15/2018 Status: F Source: FIREBAUGH 8:00 AM [facility] REPOSITORY TYPE CODE TESTS RESULT OUT OF RANGE REFERENCE UNITS LAB L300.4150 11.7-14.9 SECONDS High PROTIME 16.8 LAB L300.4200 Normal INR 1.4 Performed By: #### L300.3900, L300.4310 #### [facility] [address] [place], [place], [address] PARTIAL THROMBOPLAST Collected: 09/15/2018 Status: F Source: FIREBAUGH TIME 8:00 AM [facility] REPOSITORY TYPE CODE TESTS RESULT OUT OF RANGE REFERENCE UNITS LAB L300.4310 24.1-36.2 Seconds Normal PTT 28.1 Performed By: #### L300.3900, L300.4310 #### [facility] [address] [facility] [place], [address] COMPREHENSIVE METABOLIC Collected: 09/15/2018 Status: F Source: GISSEL PROFIL 8:00 AM [facility] REPOSITORY TYPE CODE TESTS RESULT OUT OF RANGE REFERENCE UNITS LAB L501.0100 74-106 mg/dL High GLU 202 Result Comment: Glucose result greater than or equal to 200 mg/dL suggests DIABETES MELLITUS per A.D.A. criteria. Please note revised GLUCOSE reference range effective 2017. LAB L501.1000 7-18 mg/dL High BUN 37 LAB L501.1100 0.55-1.02 mg/dL High CREAT,SERUM 2.48 Result Comment: The validity of the calculated GFR AND GFRAA in patients over 70 years has not been determined. Clinical correlation is essential. LAB L501.1110 >60 mL/min Low EST GFR 20 Result Comment: Non- GFR Calc LAB L501.1115 >60 mL/min Low EST GFR - AA 24 Result Comment: GFR Calc LAB L501.1255 ml/min Normal Estimated CRCL 15.36 LAB L501.1300 10-20 RATIO Normal BUN/CRE 14.9 LAB L501.1500 6.4-8. g/dL Normal 2 T PROT 6.6 LAB L501.1800 3.2-5. g/dL Low 0 ALB 2.1 LAB L501.1950 2.2-4. g/dL High 2 GLOB 4.5 LAB L501.2000 0.9-2. RATIO Low 4 A/G 0.5 LAB L501.2200 8.5-10 mg/dL Normal .1 CA 8.5 LAB L501.4100 15-37 U/L Normal AST 30 Result Comment: Moderate Hemolysis, Result may be falsely increased. LAB L501.4305 45-117 U/L Normal ALK P 110 LAB L501.4405 13-56 U/L Normal ALT 19 LAB L501.4600 0.20-1.00 mg/dL Normal T BILI 0.30 LAB L501.5300 136-145 mmol/L Normal NA 142 LAB L501.5600 3.5-5.1 mmol/L Normal K 4.8 Result Comment: Moderate Hemolysis, Result may be falsely increased. LAB L501.5900 98-107 mmol/L High CL 111 LAB L501.6100 21.0-32.0 mmol/L Low CO2 15.0 LAB L501.6200 5-15 High GAP 16 Performed By: #### L500.4050, L501.2450, L501.4010 #### [facility] [address] [place], [address] LIPASE Collected: 09/15/2018 Status: F Source: FIREBAUGH 8:00 AM [facility] REPOSITORY TYPE CODE TESTS RESULT OUT OF RANGE REFERENCE UNITS LAB L501.2450 73-393 U/L Normal LIPASE 96 Performed By: #### L500.4050, L501.2450, L501.4010 #### [facility] [address] [place], [address] TROPONIN-I Collected: 09/15/2018 Status: F Source: FIREBAUGH 8:00 AM [facility] REPOSITORY TYPE CODE TESTS RESULT OUT OF RANGE REFERENCE UNITS LAB L501.4010 <0.045 ng/mL Normal < 0.015 TROPONIN-I Result Comment: TROPONIN-I EXPECTED VALUES <0.045 Negative 0.045 - 0.590 Consistent with Cardiac Damage > OR = 0.600 Critical Value Not every elevated troponin is indicative of MD. These values should be used with clinical judgement in examining the patient's clinical picture for diagnosis. To establish a diagnosis of MD versus myocardial injury, there must be a demonstrated rise and/or fall in the troponin values, in addition to ischemic symptoms, EKG changes, new regional wall motion abnormality, and/or angiographical evidence. PLEASE NOTE: REFERENCE RANGES EDITED 18 Performed By: #### L500.4050, L501.2450, L501.4010 #### [facility] [address] [place], [place], [address] LACTIC ACID Collected: 09/15/2018 Status: F Source: FIREBAUGH 8:00 AM [facility] REPOSITORY Order Comment: Yes/No query for Sepsis Lactate Rule Y TYPE CODE TESTS RESULT OUT OF REFERENCE UNITS RANGE LAB L503.6005 0.4-2.0 mmol/L High alert LACTIC ACID 6.3 Result Comment: Critical Result(s) Called at: 08:50:58 09/15/2018 by: Lachelle Latham to Nolan Performed By: #### L503.6005 #### [facility] [address] [place], [address] ALCOHOL, BLOOD Collected: 09/15/2018 Status: F Source: GISSEL (MEDICAL)-SERUM 8:00 AM [facility] REPOSITORY TYPE CODE TESTS RESULT OUT OF RANGE REFERENCE UNITS LAB L501.9100 mg/dL Normal SERUM < 3.0 ETOH Result Comment: The serum:whole blood ethanol ratio is approximately 1.14 and varies slightly with hematocrit. Medical Alcohol reference interval and critical value in non-tolerant individuals; 50 - 100 Impairment 100 Intoxication 100 - 250 Severe Poisoning 250 - 400 Deep/possible fatal coma Performed By: #### L501.9100 #### [facility] [address] [place], [place], [address] Observed: 09/15/2018 Status: F Source: GISSEL CULTURE, BLOOD (WB) 8:00 AM [facility] REPOSITORY BC No growth in 5 days. Performed By: #### M200.1000 #### [facility] [address] [place], [place], [address] BASIC METABOLIC Collected: 09/15/2018 Status: F Source: GISSEL PROFILE (BMP) 6:25 AM [facility] REPOSITORY Order Comment: RM 408 TYPE CODE TESTS RESULT OUT OF RANGE REFERENCE UNITS LAB L501.0100 74-106 mg/dL Normal GLU 99 Result Comment: Please note revised GLUCOSE reference range effective 2017. LAB L501.1000 7-18 mg/dL High BUN 38 LAB L501.1100 0.55-1.02 mg/dL High CREAT,SERUM 2.20 Result Comment: The validity of the calculated GFR AND GFRAA in patients over 70 years has not been determined. Clinical correlation is essential. LAB L501.1110 >60 mL/min Low EST GFR 23 Result Comment: Non- GFR Calc LAB L501.1115 >60 mL/min Low EST GFR - AA 28 Result Comment: GFR Calc LAB L501.1300 10-20 RATIO Normal BUN/CRE 17.3 LAB L501.2200 8.5-10.1 mg/dL Low CA 8.2 LAB L501.5300 136-145 mmol/L NA Normal 144 LAB L501.5600 3.5-5.1 mmol/L K Normal 4.1 LAB L501.5900 98-107 mmol/L High CL 114 LAB L501.6100 21.0-32.0 mmol/L Low CO2 18.0 LAB L501.6200 5-15 Normal GAP 12 Performed By: #### L500.2500 #### [facility] [address] [place], [place], [address] CBC-COMPLETE BLOOD CNT Collected: 09/13/2018 Status: F Source: GISSEL NO DIFF 5:20 AM [facility] REPOSITORY TYPE CODE TESTS RESULT OUT OF RANGE REFERENCE UNITS LAB L100.1000 4.4-11.0 K/mm3 Normal WBC 6.8 LAB L100.1200 4.2-5.4 M/mm3 Low RBC 2.69 LAB L100.1300 12.0-15.0 g/dl Low HGB 8.6 LAB L100.1400 37-47 % Low HCT 26.2 LAB L100.1500 81-99 fL Normal MCV 97.4 LAB L100.1600 27.0-32.0 pg Normal MCH 32.0 LAB L100.1700 32-36 g/gl Normal MCHC 32.8 LAB L100.1810 11.6-14.6 % High RDW CV 17.4 LAB L100.1820 35.1-43.9 fl High RDW SD 58.2 LAB L100.1900 150-450 K/mm3 Normal PLT 218 LAB L100.2000 6.2-12.0 fl Normal MPV 9.9 Performed By: #### L100.0500 #### [facility] [address] [place], [place], [address] BASIC METABOLIC Collected: 09/13/2018 Status: F Source: GISSEL PROFILE (BMP) 5:20 AM [facility] REPOSITORY TYPE CODE TESTS RESULT OUT OF RANGE REFERENCE UNITS LAB L501.0100 74-106 mg/dL High GLU 109 Result Comment: Fasting Glucose result from 100 to 125 mg/dL suggests IMPAIRED HOMEOSTASIS per A.D.A. criteria. Please note revised GLUCOSE reference range effective 2017. LAB L501.1000 7-18 mg/dL High BUN 51 LAB L501.1100 0.55-1.02 mg/dL High CREAT,SERUM 2.63 Result Comment: The validity of the calculated GFR AND GFRAA in patients over 70 years has not been determined. Clinical correlation is essential. LAB L501.1110 >60 mL/min Low EST GFR 19 Result Comment: Non- GFR Calc LAB L501.1115 >60 mL/min Low EST GFR - AA 22 Result Comment: GFR Calc LAB L501.1300 10-20 RATIO Normal BUN/CRE 19.4 LAB L501.2200 8.5-10.1 mg/dL Low CA 8.2 LAB L501.5300 136-145 mmol/L NA Normal 141 LAB L501.5600 3.5-5.1 mmol/L K Normal 4.0 LAB L501.5900 98-107 mmol/L High CL 111 LAB L501.6100 21.0-32.0 mmol/L Normal CO2 21.0 LAB L501.6200 5-15 Normal GAP 9 Performed By: #### L500.2500 #### [facility] [address] [place], [address] BASIC METABOLIC Collected: 09/10/2018 Status: F Source: FIREBAUGH PROFILE (BMP) 6:10 AM [facility] REPOSITORY Order Comment: 408 TYPE CODE TESTS RESULT OUT OF RANGE REFERENCE UNITS LAB L501.0100 74-106 mg/dL High GLU 121 Result Comment: Fasting Glucose result from 100 to 125 mg/dL suggests IMPAIRED HOMEOSTASIS per A.D.A. criteria. Please note revised GLUCOSE reference range effective 2017. LAB L501.1000 7-18 mg/dL High BUN 61 LAB L501.1100 0.55-1.02 mg/dL High CREAT,SERUM 3.69 Result Comment: The validity of the calculated GFR AND GFRAA in patients over 70 years has not been determined. Clinical correlation is essential. LAB L501.1110 >60 mL/min Low EST GFR 13 Result Comment: Non- GFR Calc LAB L501.1115 >60 mL/min Low EST GFR - AA 15 Result Comment: GFR Calc LAB L501.1300 10-20 RATIO Normal BUN/CRE 16.5 LAB L501.2200 8.5-10.1 mg/dL Low CA 8.2 LAB L501.5300 136-145 mmol/L NA Normal 142 LAB L501.5600 3.5-5.1 mmol/L K Normal 3.7 LAB L501.5900 98-107 mmol/L High CL 113 LAB L501.6100 21.0-32.0 mmol/L Low CO2 18.0 LAB L501.6200 5-15 Normal GAP 11 Performed By: #### L500.2500 #### [facility] [address] [place], [place], [address] CBC-COMPLETE BLOOD CNT Collected: 09/10/2018 Status: F Source: GISSEL NO DIFF 6:10 AM [facility] REPOSITORY Order Comment: 408 TYPE CODE TESTS RESULT OUT OF RANGE REFERENCE UNITS LAB L100.1000 4.4-11.0 K/mm3 Normal WBC 6.8 LAB L100.1200 4.2-5.4 M/mm3 Low RBC 2.67 LAB L100.1300 12.0-15.0 g/dl Low HGB 8.5 LAB L100.1400 37-47 % Low HCT 26.2 LAB L100.1500 81-99 fL Normal MCV 98.1 LAB L100.1600 27.0-32.0 pg Normal MCH 31.8 LAB L100.1700 32-36 g/gl Normal MCHC 32.4 LAB L100.1810 11.6-14.6 % High RDW CV 17.6 LAB L100.1820 35.1-43.9 fl High RDW SD 60.2 LAB L100.1900 150-450 K/mm3 Normal PLT 156 LAB L100.2000 6.2-12.0 fl Normal MPV 10.1 Performed By: #### L100.0500 #### [facility] [address] [place], [place], [id number] CBC W/DIFF, AUTOMATED Collected: 09/08/2018 Status: F Source: GISSEL 5:30 AM [facility] REPOSITORY Order Comment: RM 408 TYPE CODE TESTS RESULT OUT OF RANGE REFERENCE UNITS LAB L100.1000 4.4-11.0 K/mm3 Normal WBC 9.1 LAB L100.1200 4.2-5.4 M/mm3 Low RBC 3.14 LAB L100.1300 12.0-15.0 g/dl Low HGB 9.6 LAB L100.1400 37-47 % Low HCT 30.9 LAB L100.1500 81-99 fL Normal MCV 98.4 LAB L100.1600 27.0-32.0 pg Normal MCH 30.6 LAB L100.1700 32-36 g/gl Low MCHC 31.1 LAB L100.1810 11.6-14.6 % High RDW CV 18.5 LAB L100.1820 35.1-43.9 fl High RDW SD 64.0 LAB L100.1900 150-450 K/mm3 Low PLT 146 LAB L100.2000 6.2-12.0 fl Normal MPV 10.1 LAB L100.2100 47-70 % High NEUT% 75.4 LAB L100.2200 19-41 % Low LY% 11.6 LAB L100.2300 0-10 % Normal MONO% 7.6 LAB L100.2400 0-5 % Normal EO% 5.0 LAB L100.2500 0-1 % Normal BASO% 0.1 LAB L100.2550 0.0-0.9 % Normal IM GRAN % 0.300 Result Comment: IG% - Immature Granulocytes (promyelocytes, myelocytes and metamyelocytes) > 1% indicates that a LEFT SHIFT is Present. LAB L100.2620 2.0-7.7 X10 3/uL Normal Absolute Neut 6.9 LAB L100.2720 0.83-4.51 X10 3/ul Normal Absolute Lymph 1.05 Performed By: #### L100.0100 #### [facility] [address] [facility]. [place], [place], [address] BASIC METABOLIC Collected: 09/08/2018 Status: F Source: FIREBAUGH PROFILE ([facility]) 5:30 AM [facility] REPOSITORY Order Comment: RM 408 TYPE CODE TESTS RESULT OUT OF RANGE REFERENCE UNITS LAB L501.0100 74-106 mg/dL High GLU 203 Result Comment: Glucose result greater than or equal to 200 mg/dL suggests DIABETES MELLITUS per A.D.A. criteria. Please note revised GLUCOSE reference range effective 2017. LAB L501.1000 7-18 mg/dL High BUN 69 LAB L501.1100 0.55-1.02 mg/dL High CREAT,SERUM 4.74 Result Comment: The validity of the calculated GFR AND GFRAA in patients over 70 years has not been determined. Clinical correlation is essential. LAB L501.1110 >60 mL/min Low EST GFR 9 Result Comment: Non- GFR Calc LAB L501.1115 >60 mL/min Low EST GFR - AA 11 Result Comment: GFR Calc LAB L501.1300 10-20 RATIO Normal BUN/CRE 14.6 LAB L501.2200 8.5-10.1 mg/dL Low CA 8.4 LAB L501.5300 136-145 mmol/L High NA 149 LAB L501.5600 3.5-5.1 mmol/L K Normal 3.6 Result Comment: Slight Hemolysis, Result may be falsely increased. LAB L501.5900 98-107 mmol/L High CL 121 LAB L501.6100 21.0-32.0 mmol/L Low CO2 16.0 LAB L501.6200 5-15 Normal GAP 12 Performed By: #### L500.2500 #### [facility] [address] [place], [address] CBC-COMPLETE BLOOD CNT Collected: 09/06/2018 Status: F Source: GISSEL NO DIFF 9:30 AM [facility] REPOSITORY Order Comment: 408 TYPE CODE TESTS RESULT OUT OF RANGE REFERENCE UNITS LAB L100.1000 4.4-11.0 K/mm3 Normal WBC 9.7 LAB L100.1200 4.2-5.4 M/mm3 Low RBC 3.36 LAB L100.1300 12.0-15.0 g/dl Low HGB 10.5 LAB L100.1400 37-47 % Low HCT 32.9 LAB L100.1500 81-99 fL Normal MCV 97.9 LAB L100.1600 27.0-32.0 pg Normal MCH 31.3 LAB L100.1700 32-36 g/gl Low MCHC 31.9 LAB L100.1810 11.6-14.6 % High RDW CV 18.4 LAB L100.1820 35.1-43.9 fl High RDW SD 62.8 LAB L100.1900 150-450 K/mm3 Low PLT 148 LAB L100.2000 6.2-12.0 fl Normal MPV 10.2 Performed By: #### L100.0500 #### [facility] [address] [place], [place], [address] BASIC METABOLIC Collected: 09/06/2018 Status: F Source: GISSEL PROFILE (BMP) 9:30 AM [facility] REPOSITORY Order Comment: 408 TYPE CODE TESTS RESULT OUT OF RANGE REFERENCE UNITS LAB L501.0100 74-106 mg/dL High GLU 158 Result Comment: Fasting Glucose result greater than or equal to 126 mg/dL suggests DIABETES MELLITUS per A.D.A. criteria. Please note revised GLUCOSE reference range effective 2017. LAB L501.1000 7-18 mg/dL High BUN 75 LAB L501.1100 0.55-1.02 mg/dL High CREAT,SERUM 5.48 Result Comment: The validity of the calculated GFR AND GFRAA in patients over 70 years has not been determined. Clinical correlation is essential. LAB L501.1110 >60 mL/min Low EST GFR 8 Result Comment: Non- GFR Calc LAB L501.1115 >60 mL/min Low EST GFR - AA 10 Result Comment: GFR Calc LAB L501.1300 10-20 RATIO Normal BUN/CRE 13.7 LAB L501.2200 8.5-10.1 mg/dL CA Normal 9.2 LAB L501.5300 136-145 mmol/L High NA 146 LAB L501.5600 3.5-5.1 mmol/L K Normal 3.6 LAB L501.5900 98-107 mmol/L High CL 114 LAB L501.6100 21.0-32.0 mmol/L Low CO2 19.0 LAB L501.6200 5-15 Normal GAP 13 Performed By: #### L500.2500 #### [facility] [address] [place], [address] URINALYSIS, ROUTINE Collected: 09/03/2018 Status: F Source: GISSEL (DIPSTICK) 12:01 AM [facility] REPOSITORY Order Comment: How was Urine Obtained? CLEAN CATCH TYPE CODE TESTS RESULT OUT OF RANGE REFERENCE UNITS LAB L400.3000 Yellow COLOR Normal Yellow LAB L400.3050 Clear Normal CLARITY Sl. Cloudy LAB L400.3200 Normal mg/dl Normal GLUCOSE, UR Normal LAB L400.3300 Negative mg/dL Normal BILIRUBIN URINE Negative LAB L400.3400 Negative mg/dl Normal KETONE UR Negative LAB L400.3465 1.002-1.030 Normal SP.GR. DIPSTX 1.015 LAB L400.3550 5.0 - 8.0 pH UR Normal 5.0 LAB L400.3600 Negative mg/dl High PROT 30 DIPSTX LAB L400.3700 Normal mg/dl Normal UROBILI Normal LAB L400.3750 Negative Normal NITRITE UR Negative LAB L400.3780 Negative /ul High 10 OCCULT BLOOD-UR LAB L400.3800 Negative /ul High LEUK 25 ESTERASE Performed By: #### L400.2011 #### [facility] [address] [place], [address] Observed: 09/03/2018 Status: F Source: FIREBAUGH CULTURE, URINE 12:01 AM [facility] REPOSITORY Urine Culture Culture exhibits no growth. Performed By: #### M100.0650 #### [facility] [address] [facility] [place], [address] CBC W/DIFF, AUTOMATED Collected: 08/31/2018 Status: F Source: GISSEL 5:35 AM [facility] REPOSITORY Order Comment: 408 TYPE CODE TESTS RESULT OUT OF RANGE REFERENCE UNITS LAB L100.1000 4.4-11.0 K/mm3 Normal WBC 9.9 LAB L100.1200 4.2-5.4 M/mm3 Low RBC 2.80 LAB L100.1300 12.0-15.0 g/dl Low HGB 8.7 LAB L100.1400 37-47 % Low HCT 27.5 LAB L100.1500 81-99 fL Normal MCV 98.2 LAB L100.1600 27.0-32.0 pg Normal MCH 31.1 LAB L100.1700 32-36 g/gl Low MCHC 31.6 LAB L100.1810 11.6-14.6 % High RDW CV 16.4 LAB L100.1820 35.1-43.9 fl High RDW SD 55.0 LAB L100.1900 150-450 K/mm3 Low PLT 141 LAB L100.2000 6.2-12.0 fl Normal MPV 10.6 LAB L100.2100 47-70 % High NEUT% 73.4 LAB L100.2200 19-41 % Low LY% 13.4 LAB L100.2300 0-10 % Normal MONO% 7.7 LAB L100.2400 0-5 % Normal EO% 4.2 LAB L100.2500 0-1 % Normal BASO% 0.3 LAB L100.2550 0.0-0.9 % High IM GRAN % 1.000 Result Comment: IG% - Immature Granulocytes (promyelocytes, myelocytes and metamyelocytes) > 1% indicates that a LEFT SHIFT is Present. LAB L100.2620 2.0-7.7 X10 3/uL Normal Absolute Neut 7.2 LAB L100.2720 0.83-4.51 X10 3/ul Normal Absolute Lymph 1.32 LAB L100.4500 Normal SMEAR COMMENT SCANNED Result Comment: RARE PLATELET CLUMPS NOTED PLATELET ESTIMATE GIVEN LAB L100.5500 ADEQ PLT EST Normal ADEQUATE LAB L100.7600 HYPOCHROMASIA 1+ Normal Performed By: #### L100.0100 #### [facility] [address] [place], [place], [id number] BASIC METABOLIC Collected: 08/31/2018 Status: F Source: FIREBAUGH PROFILE (BMP) 5:35 AM [facility] REPOSITORY Order Comment: 408 TYPE CODE TESTS RESULT OUT OF RANGE REFERENCE UNITS LAB L501.0100 74-106 mg/dL High GLU 112 Result Comment: Fasting Glucose result from 100 to 125 mg/dL suggests IMPAIRED HOMEOSTASIS per A.D.A. criteria. Please note revised GLUCOSE reference range effective 2017. LAB L501.1000 7-18 mg/dL High BUN 33 LAB L501.1100 0.55-1.02 mg/dL High CREAT,SERUM 1.37 Result Comment: The validity of the calculated GFR AND GFRAA in patients over 70 years has not been determined. Clinical correlation is essential. LAB L501.1110 >60 mL/min Low EST GFR 39 Result Comment: Non- GFR Calc LAB L501.1115 >60 mL/min Low EST GFR - AA 48 Result Comment: GFR Calc LAB L501.1300 10-20 RATIO High BUN/CRE 24.1 LAB L501.2200 8.5-10.1 mg/dL CA Normal 8.5 LAB L501.5300 136-145 mmol/L NA Normal 145 LAB L501.5600 3.5-5.1 mmol/L K Normal 3.6 LAB L501.5900 98-107 mmol/L High CL 116 LAB L501.6100 21.0-32.0 mmol/L Low CO2 18.0 LAB L501.6200 5-15 Normal GAP 11 Performed By: #### L500.2500 #### [facility] [address] [place], [address] SURGERY VISIT REPORT Observed: 08/30/2018 Status: F Source: FIREBAUGH 2:22 PM [facility] REPOSITORY [facility] 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 Required: No Is patient in pain?: No Allergies codeine Allergy (Severe, Verified 08/30/18 13:03) HEART ATTACK levofloxacin [From Levaquin] Allergy (Severe, Verified 08/30/18 13:03) Anaphylaxis Sulfa (Sulfonamide Antibiotics) Allergy (Unknown, Verified 08/30/18 13:03) Unknown adhesive tape Allergy (Verified 08/30/18 13:03) Other citalopram Allergy (Verified 08/30/18 13:03) Unknown Latex, Natural Rubber Allergy (Verified 08/30/18 13:03) Rash Penicillins Allergy (Verified 08/30/18 13:03) Rash acetaminophen [From Vicodin] Adverse Reaction (Verified 08/30/18 13:03) Chest tightness hydrocodone bitartrate [From Vicodin] Adverse Reaction (Verified 08/30/18 13:03) Chest tightness Medications Levothyroxine [Synthroid] 25 mcg PO DAILY@0600 05/23/16 [History Confirmed 08/30/18] Atorvastatin Calcium [Lipitor] 20 mg PO QHS 03/01/18 [History Confirmed 08/30/18] oxybutynin chloride ER 10 mg tablet,extended release 24 hr 10 mg PO QHS 03/01/18 [History Confirmed 08/30/18] Fluticasone/Salmeterol [Advair 500/50 Mcg Diskus] 1 puff INHALATION BID 06/04/18 [History Confirmed 08/30/18] Aspirin [Aspirin, Baby] 81 mg PO DAILY@0800 07/20/18 [History Confirmed 08/30/18] Cholecalciferol (Vitamin D3) [Vitamin D3] 1,000 unit PO DAILY 07/20/18 [History Confirmed 08/30/18] Cyanocobalamin (Vitamin B-12) [Vitamin B-12] 1,000 mcg PO DAILY 07/20/18 [History Confirmed 08/30/18] Acetaminophen [Tylenol Tablet] 650 mg PO Q6H PRN PRN tab 08/06/18 [Rx Confirmed 08/30/18] Albuterol Aerosols [Ventolin Aerosols] 2.5 mg INHALATION Q2H PRN PRN vial.neb. 08/06/18 [Rx Confirmed 08/30/18] Amiodarone HCl [Cordarone] 200 mg PO BID tab 08/06/18 [Rx Confirmed 08/30/18] Amiodarone HCl [Cordarone] 200 mg PO DAILY tab 08/06/18 [Rx Confirmed 08/30/18] Glucerna Shake 120 ml PO 4X/DAY liquid 08/06/18 [Rx Confirmed 08/30/18] Insulin Glargine [Lantus SoloStar Pen] 10 units SUBCUT BID pen 08/06/18 [Rx Confirmed 08/30/18] Ipratropium/Albuterol Sulfate [Duoneb] 3 ml INHALATION Q6HWA.RT ampul.neb 08/06/18 [Rx Confirmed 08/30/18] Magnesium Hydroxide [Milk Of Magnesia] 30 ml PO DAILY PRN PRN udc 08/06/18 [Rx Confirmed 08/30/18] Metoprolol Tartrate [Lopressor (beta katty)] 25 mg PO BID tab 08/06/18 [Rx Confirmed 08/30/18] Nystatin 500,000 unit PO 4X/DAY udc 08/06/18 [Rx Confirmed 08/30/18] Pantoprazole Sodium [Protonix] 40 mg PO BID tab 08/06/18 [Rx Confirmed 08/30/18] Subjective Details: Patient presents status post colectomy, colostomy due to left colon perforation 07/21/18. Patient also presented last time with wound infection the midline incision which she has seen the wound center for and a wound VAC has been placed. Patient has completed her 10 days of cefepime IV. However on Thursday and Thursday patient's daughter states she was quite confused and she also had decreased urine output to the point where she did not have a urine for a day they did start her on IV fluids and that has improved. Daughter still states she is a little confused but it is improved and she is also starting to eat a little more again. Previously discussed with patient the importance of drinking her 4 boost daily along with trying to eat some of her meals. She was doing fairly well until last Thursday. Patient did have labs which did show a leukocytosis of 13.9 however today's labs white blood cell count is normal but the platelets are 84 which normally they have been in the 200s. There is also question from the wound nurse at the [facility] there may have been coffee-ground stool in her colostomy bag this morning. Patient's hemoglobin today was 9 from 10.1 however she was likely dehydrated during that 10.1. Objective Details: Abdomen: Soft, nontender, nondistended, wound VAC in place on midline wound, colostomy light mendez stool no evidence of coffee-ground substance. Assessment AND Plan Problems 1. S/P colectomy Z90.49 2. Wound infection T14.8XXA; L08.9 3. Large bowel perforation K63.1 Plan Patient is continue to see wound center as well as has a wound VAC to the midline incision. Will stop the cefepime after the total of 10 days which is today. Encourage patient again to try to take 4 boost daily along with eating some of her meals to help her nutrition to help her healing as well as strength. Unsure what happened Thursday/Thursday to cause the confusion. Patient had been on cefepime IV so I would doubt that it would be a UTI, but patient is currently improving. Follow-up in 2 weeks patient is agreeable plan and will have the jail call with updates on Thursday as far as her intake. We will also recheck a CBC with differential today to see if the platelets of 84 are real. Aurora Young M.D. Pager: [phone] [facility] [address] [place] [address], [address] [place] [address] Office: [phone] Plan Detail Follow Up 2 Weeks Coding Level of Care Code Global Post Op Diagnoses S/P colectomy Z90.49 Wound infection T14.8XXA; L08.9 Large bowel perforation K63.1 08/30/18 1422 <Electronically signed by Aurora Young MD> Date Aurora Young MD Cosigner Signature: Date (if applicable) CC: Clement Bueno MD WOUND CTR HISTORY Observed: 08/30/2018 Status: F Source: GISESL AND PHYSICAL 1:10 PM [facility] REPOSITORY [facility] [address] [place] [address] [facility] C[facility] History AND Physical 08/25/18 1245 MR#: [id number] Acct: [id number] Name: JIMENEZ WYNN Rep #: [id number] : 1935 82 From: Ousmane Almanza MD PCP: Clement Bueno MD Status: REG RCR Y Location: WC (1) 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 (2) Type 2 diabetes mellitus Status: Chronic Current Visit: Yes Qualifiers: Code(s): E11.9 - Type 2 diabetes mellitus without complications History of Present Illness Chief Complaint: Nonhealing surgical wound. History of Wound: Ms. Wynn is a very pleasant 82-year-old who is in a stable state of health until over a month ago when she was admitted to the hospital due to large bowel perforation. She subsequently had surgery and was discharged to a jail facility however in the facility she had reopening of the surgical wound. Since reopening, she has had wet-to-dry dressings without any significant improvement. She was again seen by her general surgeon subsequently referred to the wound center for continued management of her nonhealing surgical wound. Currently on IV antibiotics. She denies any concerns at this time. 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 Takotsubo cardiomyopathy (Chronic) Nonrheumatic tricuspid (valve) insufficiency (Chronic) Atherosclerotic heart disease of [place] coronary artery without angina pectoris (Chronic) Mild Hypothyroidism (Chronic) COPD (chronic obstructive pulmonary disease) (Chronic) Hyperlipidemia (Chronic) Type 2 diabetes mellitus (Chronic) Surgical History: hysterectomy, total hip arthroplasty, - - Fractured femur, bilateral knee surgeries and bilateral hip surgeries Allergies/Adverse Reactions: Allergies codeine Allergy (Severe, Verified 08/25/18 09:39) HEART ATTACK levofloxacin [From Levaquin] Allergy (Severe, Verified 08/25/18 09:39) Anaphylaxis Sulfa (Sulfonamide Antibiotics) Allergy (Unknown, Verified 08/25/18 09:39) Unknown adhesive tape Allergy (Verified 08/25/18 09:39) Other citalopram Allergy (Verified 08/25/18 09:39) Unknown Latex, Natural Rubber Allergy (Verified 08/25/18 09:39) Rash Penicillins Allergy (Verified 08/25/18 09:39) Rash acetaminophen [From Vicodin] Adverse Reaction (Verified 08/25/18 09:39) Chest tightness hydrocodone bitartrate [From Vicodin] Adverse Reaction (Verified 08/25/18 09:39) Chest tightness Home Medications: Ambulatory Orders Medication Instructions Recorded Levothyroxine [Synthroid] 25 mcg PO DAILY@0600 05/23/16 - Family History Maternal Family History: Family History (Last Updated 05/26/18 @ 10:48 by Sofia Allen) Mother Diabetes Brother Atrial fibrillation Brother Diabetes Sister Diabetes Diabetes Paternal Family History: Family History (Last Updated 05/26/18 @ 10:48 by Sofia Allen) Mother Diabetes Brother Atrial fibrillation Brother Diabetes Sister Diabetes Diabetes, Heart Disease Smoking Status: Never smoker Review of Systems Constitutional: Denies: Anorexia, Chills, Fever Eyes: Denies: Pain, Redness HEENT: Denies: Difficulty Swallowing Cardiovascular: Denies: Chest Pain, Chest Tightness Respiratory: Denies: Cough, Hemoptysis Gastrointestinal: Denies: Abdominal Pain, Hematemesis, Vomiting Genitourinary: Denies: Dysuria Skin: Denies: Jaundice - Physical Exam Vital Signs Temp Pulse Resp BP 97.1 F L 64 18 137/87 H 08/25/18 09:14 08/25/18 09:14 08/25/18 09:14 08/25/18 09:14 General: Alert, Oriented x3, Cooperative, No apparent distress HEENT: Atraumatic Oral: Moist Mucosa Neck: Supple Lungs: Normal air movement Cardiovascular: Regular rate, Regular Rhythm, Normal S1, Normal S2 Abdomen: Soft, Non Tender Extremities: No cyanosis, Edema Skin: Ulcer/ Wound Wound Measurements and Assessment WC - Nurse 1 - General Ulcer Measurement Start: 08/25/18 09:05 Freq: Status: Active Protocol: Activity Type Activity Date Activity User E-Sign Co-Sign Detail Recorded Client Recorded Date Recorded By Document 08/25/18 09:14 DL [id number] 08/25/18 09:34 DL Wound Center Nurse 1 WC - Nurse 2 - General Ulcer CM Notes Start: 08/25/18 09:05 Freq: Status: Active Protocol: Activity Type Activity Date Activity User E-Sign Co-Sign Detail Recorded Client Recorded Date Recorded By Document 08/25/18 10:07 MW [id number] 08/25/18 10:17 MW Wound Center Nurse 2 [Procedure/Treatment] Neurological: Cranial nerves II-XII grossly intact Psych/Mental Status: Normal Affect Debridement Note Post-Debridement Measurements/Treatment WC - Nurse 2 - General Ulcer CM Notes Start: 08/25/18 09:05 Freq: Status: Active Protocol: Activity Type Activity Date Activity User E-Sign Co-Sign Detail Recorded Client Recorded Date Recorded By Document 08/25/18 10:07 MW [id number] 08/25/18 10:17 MW Wound Center Nurse 2 #3 Abd -Time 10:08 -Correct Patient Yes -Correct Side, Site, Position Yes -Correct Procedure Yes Wound debrided: Midline abdominal wound Wound Grade/Stage: Stage III Type of Debridement: Excisional debridement Anesthesia Used: 4% Lidocaine Solution Depth: Down to and including healthy tissue, in the subcutaneous layer Percentage of wound debrided: 100 Instrument Used: 7mm curette Tissue Removed: Slough and devitalized tissue Severity: Fat Layer Exposed Amount of bleeding with debridement: Mild Bleeding Controlled with: Pressure Patient tolerated procedure well Assessment/Plan Active Problems (Last Reviewed 03/01/18 @ 13:10 by Victoria Fu) 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 Type 2 diabetes mellitus (Chronic) Assessment: Nonhealing surgical wound dehiscence status post large bowel perforation. Type 2 diabetes mellitus. Plan: Debridement done as documented above. Procedure was well-tolerated. Has a tunnel at the 6 o'clock position and at the 12:00 it extends to 5 cm. Wound otherwise appears healthy. No obvious signs of infection. Due to significant depth and tunneling, she will most definitely benefit from a wound VAC. Orders sent to her jail. In the meantime Aquacel extra with Adaptic over top. Change daily. Increased protein intake strongly recommended. Continue antibiotics per recommendation. All the questions were answered and they were asked to call with any further questions or concerns. Follow-up in 1 week. This note was generated with Connect dictation software. It may contain incorrect words, spelling, and punctuation that were not noted in checking the note before signing. 08/30/18 1310 <Electronically signed by Ousmane Almanza MD> Date Ousmane Almanza MD CC: Signed CBC-COMPLETE BLOOD CNT Collected: 08/30/2018 Status: F Source: GISSEL NO DIFF 5:35 AM [facility] REPOSITORY Order Comment: 408 TYPE CODE TESTS RESULT OUT OF RANGE REFERENCE UNITS LAB L100.1000 4.4-11.0 K/mm3 Normal WBC 9.0 LAB L100.1200 4.2-5.4 M/mm3 Low RBC 2.91 LAB L100.1300 12.0-15.0 g/dl Low HGB 9.0 LAB L100.1400 37-47 % Low HCT 28.3 LAB L100.1500 81-99 fL Normal MCV 97.3 LAB L100.1600 27.0-32.0 pg Normal MCH 30.9 LAB L100.1700 32-36 g/gl Low MCHC 31.8 LAB L100.1810 11.6-14.6 % High RDW CV 16.5 LAB L100.1820 35.1-43.9 fl High RDW SD 57.4 LAB L100.1900 150-450 K/mm3 Low PLT 84 LAB L100.2000 6.2-12.0 fl Normal MPV 10.3 Performed By: #### L100.0500 #### [facility] [facility] [address] [place], [address] BASIC METABOLIC Collected: 08/30/2018 Status: F Source: FIREBAUGH PROFILE ([facility]) 5:35 AM [facility] REPOSITORY Order Comment: 408 TYPE CODE TESTS RESULT OUT OF RANGE REFERENCE UNITS LAB L501.0100 74-106 mg/dL High GLU 192 Result Comment: Fasting Glucose result greater than or equal to 126 mg/dL suggests DIABETES MELLITUS per A.D.A. criteria. Please note revised GLUCOSE reference range effective 2017. LAB L501.1000 7-18 mg/dL High BUN 38 LAB L501.1100 0.55-1.02 mg/dL High CREAT,SERUM 1.43 Result Comment: The validity of the calculated GFR AND GFRAA in patients over 70 years has not been determined. Clinical correlation is essential. LAB L501.1110 >60 mL/min Low EST GFR 37 Result Comment: Non- GFR Calc LAB L501.1115 >60 mL/min Low EST GFR - AA 45 Result Comment: GFR Calc LAB L501.1300 10-20 RATIO High BUN/CRE 26.6 LAB L501.2200 8.5-10.1 mg/dL CA Normal 8.5 LAB L501.5300 136-145 mmol/L NA Normal 144 LAB L501.5600 3.5-5.1 mmol/L K Normal 3.6 LAB L501.5900 98-107 mmol/L High CL 116 LAB L501.6100 21.0-32.0 mmol/L Low CO2 19.0 LAB L501.6200 5-15 Normal GAP 9 Performed By: #### L500.2500 #### [facility] [address] [place], [place], [address] CBC-COMPLETE BLOOD CNT Collected: 08/28/2018 Status: F Source: GISSEL NO DIFF 6:15 AM [facility] REPOSITORY TYPE CODE TESTS RESULT OUT OF RANGE REFERENCE UNITS LAB L100.1000 4.4-11.0 K/mm3 High WBC 13.9 LAB L100.1200 4.2-5.4 M/mm3 Low RBC 3.22 LAB L100.1300 12.0-15.0 g/dl Low HGB 10.1 LAB L100.1400 37-47 % Low HCT 31.4 LAB L100.1500 81-99 fL Normal MCV 97.5 LAB L100.1600 27.0-32.0 pg Normal MCH 31.4 LAB L100.1700 32-36 g/gl Normal MCHC 32.2 LAB L100.1810 11.6-14.6 % High RDW CV 15.4 LAB L100.1820 35.1-43.9 fl High RDW SD 52.5 LAB L100.1900 150-450 K/mm3 Normal PLT 221 LAB L100.2000 6.2-12.0 fl Normal MPV 9.9 Performed By: #### L100.0500 #### [facility] [address] [place], [place], [address] BASIC METABOLIC Collected: 08/28/2018 Status: F Source: GISSEL PROFILE (BMP) 6:15 AM [facility] REPOSITORY TYPE CODE TESTS RESULT OUT OF RANGE REFERENCE UNITS LAB L501.0100 74-106 mg/dL High GLU 124 Result Comment: Fasting Glucose result from 100 to 125 mg/dL suggests IMPAIRED HOMEOSTASIS per A.D.A. criteria. Please note revised GLUCOSE reference range effective 2017. LAB L501.1000 7-18 mg/dL High BUN 47 LAB L501.1100 0.55-1.02 mg/dL High CREAT,SERUM 1.41 Result Comment: The validity of the calculated GFR AND GFRAA in patients over 70 years has not been determined. Clinical correlation is essential. LAB L501.1110 >60 mL/min Low EST GFR 38 Result Comment: Non- GFR Calc LAB L501.1115 >60 mL/min Low EST GFR - AA 46 Result Comment: GFR Calc LAB L501.1300 10-20 RATIO High BUN/CRE 33.3 LAB L501.2200 8.5-10.1 mg/dL CA Normal 9.4 LAB L501.5300 136-145 mmol/L NA Normal 137 LAB L501.5600 3.5-5.1 mmol/L K Normal 4.4 LAB L501.5900 98-107 mmol/L High CL 113 LAB L501.6100 21.0-32.0 mmol/L Low CO2 16.0 LAB L501.6200 5-15 Normal GAP 8 Performed By: #### L500.2500 #### [facility] [address] [employer] [place], [address] SURGERY VISIT REPORT Observed: 08/23/2018 Status: F Source: FIREBAUGH 10:01 AM [facility] REPOSITORY [facility] [address] [place] [address] OFFICE VISIT Date of Service: 08/20/18 MR#: [id number] Acct: [id number] Name: JIMENEZ WYNN Rep #: [id number] : 1935 Provider: Aurora Young MD Age/Sex: 82/F Location: [facility] Status: Signed Intake Intake Visit Reasons: F/U COLECTOMY 07/21/18 Chief Complaint: weakness Building Official Required: No Is patient in pain?: No Allergies codeine Allergy (Severe, Verified 08/20/18 10:25) HEART ATTACK levofloxacin [From Levaquin] Allergy (Severe, Verified 08/20/18 10:25) Anaphylaxis Sulfa (Sulfonamide Antibiotics) Allergy (Unknown, Verified 08/20/18 10:25) Unknown adhesive tape Allergy (Verified 08/20/18 10:25) Other citalopram Allergy (Verified 08/20/18 10:25) Unknown Latex, Natural Rubber Allergy (Verified 08/20/18 10:25) Rash Penicillins Allergy (Verified 08/20/18 10:25) Rash acetaminophen [From Vicodin] Adverse Reaction (Verified 08/20/18 10:25) Chest tightness hydrocodone bitartrate [From Vicodin] Adverse Reaction (Verified 08/20/18 10:25) Chest tightness Medications Levothyroxine [Synthroid] 25 mcg PO DAILY@0600 05/23/16 [History Confirmed 08/20/18] Trazodone HCl 50 mg PO QHS 05/23/16 [History Confirmed 08/20/18] Atorvastatin Calcium [Lipitor] 20 mg PO QHS 03/01/18 [History Confirmed 08/20/18] oxybutynin chloride ER 10 mg tablet,extended release 24 hr 10 mg PO QHS 03/01/18 [History Confirmed 08/20/18] Fluticasone/Salmeterol [Advair 500/50 Mcg Diskus] 1 puff INHALATION BID 06/04/18 [History Confirmed 08/20/18] Aspirin [Aspirin, Baby] 81 mg PO DAILY@0800 07/20/18 [History Confirmed 08/20/18] Cholecalciferol (Vitamin D3) [Vitamin D3] 1,000 unit PO DAILY 07/20/18 [History Confirmed 08/20/18] Cyanocobalamin (Vitamin B-12) [Vitamin B-12] 1,000 mcg PO DAILY 07/20/18 [History Confirmed 08/20/18] Acetaminophen [Tylenol Tablet] 650 mg PO Q6H PRN PRN tab 08/06/18 [Rx Confirmed 08/20/18] Albuterol Aerosols [Ventolin Aerosols] 2.5 mg INHALATION Q2H PRN PRN vial.neb. 08/06/18 [Rx Confirmed 08/20/18] Amiodarone HCl [Cordarone] 200 mg PO BID tab 08/06/18 [Rx Confirmed 08/20/18] Amiodarone HCl [Cordarone] 200 mg PO DAILY tab 08/06/18 [Rx Confirmed 08/20/18] Glucerna Shake 120 ml PO 4X/DAY liquid 08/06/18 [Rx Confirmed 08/20/18] Insulin Glargine [Lantus SoloStar Pen] 10 units SUBCUT BID pen 08/06/18 [Rx Confirmed 08/20/18] Ipratropium/Albuterol Sulfate [Duoneb] 3 ml INHALATION Q6HWA.RT ampul.neb 08/06/18 [Rx Confirmed 08/20/18] Magnesium Hydroxide [Milk Of Magnesia] 30 ml PO DAILY PRN PRN udc 08/06/18 [Rx Confirmed 08/20/18] Metoprolol Tartrate [Lopressor (beta katty)] 25 mg PO BID tab 08/06/18 [Rx Confirmed 08/20/18] Nystatin 500,000 unit PO 4X/DAY udc 08/06/18 [Rx Confirmed 08/20/18] Pantoprazole Sodium [Protonix] 40 mg PO BID tab 08/06/18 [Rx Confirmed 08/20/18] Subjective Details: Patient presents status post colectomy and colostomy due to perforated left colon. Patient has not been eating well has only been having sort of minimal intake and only even about half the boost offered. Patient's midline wound is larger than previously and the family is concerned about this they do have a wound center appointment next Thursday. Patient also states she has been weak with physical therapy. She also some concern about left hand weakness and arm which has improved but is still noticeably weaker than the right side. Objective Details: Abdomen, superior midline wound open about 6.5 cm x 3.5 cm x 3 cm had a greenish drainage on dressing, small amount of wound slough which was debrided in the office with scissors. Patient's ostomy was putting out stool and flatus. The inferior portion of patient's wound is healing well. Assessment AND Plan Problems 1. S/P colectomy Z90.49 2. Large bowel perforation K63.1 3. Wound infection T14.8XXA; L08.9 Plan Discussed with the patient as well as her family the importance of nutrition and wound healing. Patient's wound also appeared to have a greenish drainage on the dressing. Culture cultures were sent Gram stain showed gram-negative rods and patient was called and cefepime 2 g IV every 8 hours for 10 days at [facility]. Discussed with patient that she does need to drink boost 4 times a day even though she is not hungry as well as eat a portion of her meals to help with wound healing and strength. Discussed with the patient and family and also called [facility] and discussed with them the need for wet-to-dry dressings twice daily not just daily plan for a follow-up on August 30. Patient is also scheduled to follow- up with wound center next week on Thursday. Aurora Young M.D. Pager: [phone] [facility] [address] [place] [address], [facility], [address] [place] [address] Office: [phone] Orders Orders: Plan Detail Follow Up 1-2 weeks Coding Level of Care Code Global Post Op Diagnoses S/P colectomy Z90.49 Large bowel perforation K63.1 Wound infection T14.8XXA; L08.9 08/23/18 1001 <Electronically signed by Aurora Young MD> Date Aurora Young MD Cosigner Signature: Date (if applicable) CC: Clement Bueno MD CBC-COMPLETE BLOOD CNT Collected: 08/23/2018 Status: F Source: GISSEL NO DIFF 6:00 AM [facility] REPOSITORY Order Comment: 408 TYPE CODE TESTS RESULT OUT OF RANGE REFERENCE UNITS LAB L100.1000 4.4-11.0 K/mm3 Normal WBC 9.4 LAB L100.1200 4.2-5.4 M/mm3 Low RBC 3.09 LAB L100.1300 12.0-15.0 g/dl Low HGB 9.5 LAB L100.1400 37-47 % Low HCT 29.3 LAB L100.1500 81-99 fL Normal MCV 94.8 LAB L100.1600 27.0-32.0 pg Normal MCH 30.7 LAB L100.1700 32-36 g/gl Normal MCHC 32.4 LAB L100.1810 11.6-14.6 % High RDW CV 14.9 LAB L100.1820 35.1-43.9 fl High RDW SD 51.8 LAB L100.1900 150-450 K/mm3 Normal PLT 320 LAB L100.2000 6.2-12.0 fl Normal MPV 9.4 Performed By: #### L100.0500 #### [facility] [address] [place], [address] BASIC METABOLIC Collected: 08/23/2018 Status: F Source: GISSEL PROFILE (BMP) 6:00 AM [facility] REPOSITORY Order Comment: 408 TYPE CODE TESTS RESULT OUT OF RANGE REFERENCE UNITS LAB L501.0100 74-106 mg/dL High GLU 237 Result Comment: Glucose result greater than or equal to 200 mg/dL suggests DIABETES MELLITUS per A.D.A. criteria. Please note revised GLUCOSE reference range effective 2017. LAB L501.1000 7-18 mg/dL High BUN 20 LAB L501.1100 0.55-1.02 mg/dL High CREAT,SERUM 1.31 Result Comment: The validity of the calculated GFR AND GFRAA in patients over 70 years has not been determined. Clinical correlation is essential. LAB L501.1110 >60 mL/min Low EST GFR 41 Result Comment: Non- GFR Calc LAB L501.1115 >60 mL/min Low EST GFR - AA 50 Result Comment: GFR Calc LAB L501.1300 10-20 RATIO Normal BUN/CRE 15.3 LAB L501.2200 8.5-10.1 mg/dL CA Normal 9.0 LAB L501.5300 136-145 mmol/L NA Normal 137 LAB L501.5600 3.5-5.1 mmol/L K Normal 4.2 LAB L501.5900 98-107 mmol/L CL Normal 101 LAB L501.6100 21.0-32.0 mmol/L Normal CO2 25.0 LAB L501.6200 5-15 Normal GAP 11 Performed By: #### L500.2500 #### [facility] [address] [place], [address] Observed: 08/20/2018 Status: F Source: GISSEL CULTURE, DEEP WOUND 1:10 PM [facility] REPOSITORY Gram Stain Gram Stain 2+ White Blood Cells 4+ Gram negative rods Wound Culture ORGANISM 1: Pseudomonas spp Amount Growth 3+ ORGANISM 2: Escherichia coli Amount Growth 2+ ORGANISM 3: Enterobacter cloacae complex Amount Growth Rare Pseudomonas spp: REACTION Cefepime $ 2 S Ceftazidime *NF 4 S Gentamicin $ <=1 S Imipenem *NF 2 S Levofloxacin $ <=0.12 S Piperacillin/Tazobactam $$ 8 S Tobramycin $ <=1 S (NF) indicates non-formulary drug at [facility]. Approval by Infectious Disease Specialist required before non-formulary drugs may be ordered and/or dispensed. Escherichia coli: REACTION Amoxacillin/Clavulanic Acid $ <=2 S Ampicillin $ <=2 S Ampicillin/Sulbactam $ <=2 S Cefazolin $ <=4 S Cefepime $ <=1 S Ceftriaxone $ <=1 S Ciprofloxacin $ <=0.25 S ESBL - Ertapenim $$$ <=0.5 S Gentamicin $ <=1 S Imipenem *NF <=0.25 S Levofloxacin $ <=0.12 S Piperacillin/Tazobactam $$ <=4 S Tobramycin $ <=1 S Trimethoprim/Sulfametho $ <=20 S (NF) indicates non-formulary drug at [facility]. Approval by Infectious Disease Specialist required before non-formulary drugs may be ordered and/or dispensed. Enterobacter cloacae complex: REACTION Amoxacillin/Clavulanic Acid $ >=32 R Cefazolin $ >=64 R Cefepime $ <=1 S Ceftriaxone $ <=1 S Ciprofloxacin $ <=0.25 S Ertapenim $$$ <=0.5 S Gentamicin $ <=1 S Imipenem *NF <=0.25 S Levofloxacin $ <=0.12 S Piperacillin/Tazobactam $$ <=4 S Tobramycin $ <=1 S Trimethoprim/Sulfametho $ <=20 S (NF) indicates non-formulary drug at [facility]. Approval by Infectious Disease Specialist required before non-formulary drugs may be ordered and/or dispensed. Cult, Anaerobic No anaerobic bacteria isolated. Performed By: #### M100.1500 #### [facility] [address] [place], [address] CBC-COMPLETE BLOOD CNT Collected: 08/16/2018 Status: F Source: FIREBAUGH NO DIFF 6:20 AM [facility] REPOSITORY TYPE CODE TESTS RESULT OUT OF RANGE REFERENCE UNITS LAB L100.1000 4.4-11.0 K/mm3 Normal WBC 7.6 LAB L100.1200 4.2-5.4 M/mm3 Low RBC 2.79 LAB L100.1300 12.0-15.0 g/dl Low HGB 8.6 LAB L100.1400 37-47 % Low HCT 27.0 LAB L100.1500 81-99 fL Normal MCV 96.8 LAB L100.1600 27.0-32.0 pg Normal MCH 30.8 LAB L100.1700 32-36 g/gl Low MCHC 31.9 LAB L100.1810 11.6-14.6 % High RDW CV 15.8 LAB L100.1820 35.1-43.9 fl High RDW SD 55.5 LAB L100.1900 150-450 K/mm3 Normal PLT 275 LAB L100.2000 6.2-12.0 fl Normal MPV 9.2 Performed By: #### L100.0500 #### [facility] [address] [place], [address] BASIC METABOLIC Collected: 08/16/2018 Status: F Source: FIREBAUGH PROFILE (BMP) 6:20 AM [facility] REPOSITORY TYPE CODE TESTS RESULT OUT OF RANGE REFERENCE UNITS LAB L501.0100 74-106 mg/dL High GLU 121 Result Comment: Fasting Glucose result from 100 to 125 mg/dL suggests IMPAIRED HOMEOSTASIS per A.D.A. criteria. Please note revised GLUCOSE reference range effective 2017. LAB L501.1000 7-18 mg/dL High BUN 21 LAB L501.1100 0.55-1.02 mg/dL High CREAT,SERUM 1.15 Result Comment: The validity of the calculated GFR AND GFRAA in patients over 70 years has not been determined. Clinical correlation is essential. LAB L501.1110 >60 mL/min Low EST GFR 48 Result Comment: Non- GFR Calc LAB L501.1115 >60 mL/min Low EST GFR - AA 58 Result Comment: GFR Calc LAB L501.1300 10-20 RATIO Normal BUN/CRE 18.3 LAB L501.2200 8.5-10.1 mg/dL Low CA 8.1 LAB L501.5300 136-145 mmol/L NA Normal 139 LAB L501.5600 3.5-5.1 mmol/L K Normal 4.0 LAB L501.5900 98-107 mmol/L CL Normal 104 LAB L501.6100 21.0-32.0 mmol/L Normal CO2 28.0 LAB L501.6200 5-15 Normal GAP 7 Performed By: #### L500.2500 #### [facility] [address] [place], [address] COMPREHENSIVE METABOLIC Collected: 08/11/2018 Status: F Source: GISSEL [facility] 7:25 AM [facility] REPOSITORY TYPE CODE TESTS RESULT OUT OF RANGE REFERENCE UNITS LAB L501.0100 74-106 mg/dL Low GLU 69 Result Comment: Please note revised GLUCOSE reference range effective 2017. LAB L501.1000 7-18 mg/dL High BUN 22 LAB L501.1100 0.55-1.02 mg/dL High CREAT,SERUM 1.10 Result Comment: The validity of the calculated GFR AND GFRAA in patients over 70 years has not been determined. Clinical correlation is essential. LAB L501.1110 >60 mL/min Low EST GFR 51 Result Comment: Non- GFR Calc LAB L501.1115 >60 mL/min Normal EST GFR - AA 61 Result Comment: GFR Calc LAB L501.1300 10-20 RATIO Normal BUN/CRE 20.0 LAB L501.1500 6.4-8.2 g/dL Low T PROT 5.6 LAB L501.1800 3.2-5.0 g/dL Low ALB 1.6 LAB L501.1950 2.2-4.2 g/dL Normal GLOB 4.0 LAB L501.2000 0.9-2.4 RATIO Low A/G 0.4 LAB L501.2200 8.5-10.1 mg/dL Low CA 8.3 LAB L501.4100 15-37 U/L Low AST 12 LAB L501.4305 45-117 U/L Normal ALK P 100 LAB L501.4405 13-56 U/L Low ALT 12 LAB L501.4600 0.20-1.00 mg/dL T Normal BILI 0.30 LAB L501.5300 136-145 mmol/L NA Normal 140 LAB L501.5600 3.5-5.1 mmol/L K Normal 4.0 LAB L501.5900 98-107 mmol/L CL Normal 107 LAB L501.6100 21.0-32.0 mmol/L Normal CO2 24.0 LAB L501.6200 5-15 Normal GAP 9 Performed By: #### L500.4050 #### [facility] [place], [address] CBC W/DIFF, AUTOMATED Collected: 08/11/2018 Status: F Source: FIREBAUGH 7:25 AM [facility] REPOSITORY TYPE CODE TESTS RESULT OUT OF RANGE REFERENCE UNITS LAB L100.1000 4.4-11.0 K/mm3 Normal WBC 7.5 LAB L100.1200 4.2-5.4 M/mm3 Low RBC 2.72 LAB L100.1300 12.0-15.0 g/dl Low HGB 8.5 LAB L100.1400 37-47 % Low HCT 26.3 LAB L100.1500 81-99 fL Normal MCV 96.7 LAB L100.1600 27.0-32.0 pg Normal MCH 31.3 LAB L100.1700 32-36 g/gl Normal MCHC 32.3 LAB L100.1810 11.6-14.6 % High RDW CV 16.2 LAB L100.1820 35.1-43.9 fl High RDW SD 56.6 LAB L100.1900 150-450 K/mm3 Normal PLT 306 LAB L100.2000 6.2-12.0 fl Normal MPV 9.2 LAB L100.2100 47-70 % High NEUT% 77.3 LAB L100.2200 19-41 % Low LY% 9.0 LAB L100.2300 0-10 % High MONO% 10.1 LAB L100.2400 0-5 % Normal EO% 3.2 LAB L100.2500 0-1 % Normal BASO% 0.3 LAB L100.2550 0.0-0.9 % Normal IM GRAN % 0.100 Result Comment: IG% - Immature Granulocytes (promyelocytes, myelocytes and metamyelocytes) > 1% indicates that a LEFT SHIFT is Present. LAB L100.2620 2.0-7.7 X10 3/uL Normal Absolute Neut 5.8 LAB L100.2720 0.83-4.51 X10 3/ul Low Absolute Lymph 0.67 Performed By: #### L100.0100 #### [facility] [address] [place], [place], [id number] BASIC METABOLIC Collected: 08/09/2018 Status: F Source: GISSEL PROFILE (BMP) 5:40 AM [facility] REPOSITORY Order Comment: 408 TYPE CODE TESTS RESULT OUT OF RANGE REFERENCE UNITS LAB L501.0100 74-106 mg/dL High GLU 118 Result Comment: Fasting Glucose result from 100 to 125 mg/dL suggests IMPAIRED HOMEOSTASIS per A.D.A. criteria. Please note revised GLUCOSE reference range effective 2017. LAB L501.1000 7-18 mg/dL High BUN 31 LAB L501.1100 0.55-1.02 mg/dL High CREAT,SERUM 1.15 Result Comment: The validity of the calculated GFR AND GFRAA in patients over 70 years has not been determined. Clinical correlation is essential. LAB L501.1110 >60 mL/min Low EST GFR 48 Result Comment: Non- GFR Calc LAB L501.1115 >60 mL/min Low EST GFR - AA 58 Result Comment: GFR Calc LAB L501.1300 10-20 RATIO High BUN/CRE 27.0 LAB L501.2200 8.5-10.1 mg/dL Low CA 8.2 LAB L501.5300 136-145 mmol/L NA Normal 141 LAB L501.5600 3.5-5.1 mmol/L K Normal 4.2 LAB L501.5900 98-107 mmol/L High CL 108 LAB L501.6100 21.0-32.0 mmol/L Normal CO2 25.0 LAB L501.6200 5-15 Normal GAP 8 Performed By: #### L500.2500 #### [facility] [address] [place], [address] CBC-COMPLETE BLOOD CNT Collected: 08/09/2018 Status: F Source: GISSEL NO DIFF 5:40 AM [facility] REPOSITORY Order Comment: 408 TYPE CODE TESTS RESULT OUT OF RANGE REFERENCE UNITS LAB L100.1000 4.4-11.0 K/mm3 Normal WBC 6.7 LAB L100.1200 4.2-5.4 M/mm3 Low RBC 2.50 LAB L100.1300 12.0-15.0 g/dl Low HGB 8.0 LAB L100.1400 37-47 % Low HCT 24.5 LAB L100.1500 81-99 fL Normal MCV 98.0 LAB L100.1600 27.0-32.0 pg Normal MCH 32.0 LAB L100.1700 32-36 g/gl Normal MCHC 32.7 LAB L100.1810 11.6-14.6 % High RDW CV 16.0 LAB L100.1820 35.1-43.9 fl High RDW SD 54.1 LAB L100.1900 150-450 K/mm3 Normal PLT 329 LAB L100.2000 6.2-12.0 fl Normal MPV 9.6 Performed By: #### L100.0500 #### [facility] [address] [place], [address] Observed: 08/09/2018 Status: F Source: FIREBAUGH CDIFF (MOLECULAR) 3:30 AM [facility] REPOSITORY Comments: SAMPLE FROM COLOSTOMY BAG Cdiff-Molecular Normal Reference Range = Negative C. Diff DNA Negative- No toxigenic C. Diff DNA Detected NAAT METHOD Testing was performed using nucleic acid amplification Performed By: #### M100.6796 #### [facility] [address] [place], [address] DISCHARGE SUMMARY Observed: 08/06/2018 Status: F Source: FIREBAUGH 2:27 PM [facility] REPOSITORY [facility] Medical Records Department [address] [place] [address] Discharge Summary 08/06/18 1357 MR#: [id number] Acct: [id number] Name: JIMENEZ WYNN Rep #: [id number] : 1935 82 From: [place] PCP: Clement Bueno MD Status: DIS IN Y [id number] ADDENDUM by Kasandra Almendarez on 08/06/18 at 1427 Code Visit ATTENDING PHYSICIAN DISCHARGE NOTE: I have seen and examined the patient independently and agree with the assessment, plan, history per [place] as noted. Discharge Diagnoses: (1) Septic Shock secondary to Bacteremia w/ Clostridium w/ Surgical Culture w/ E. Coli, Acinetobacter and Anaerobes secondary to Acute Large Bowel Perforation w/ Peritonitis (2) Acute Metabolic, Infectious Encephalopathy complicated by ICU delirium (3) Episodes SVT (4) Acute kidney injury, Secondary to acute presentation, #1 (5) Takotsubo Cardiomyopathy (6) CAD (7) Diabetes mellitus type II (8) Chronic COPD (9) Hypothyroidism (10) Hypertension (11) Hyperlipidemia (12) GERD Discharge Summary: The patient is a 82 y/o F residing in SNF w/ PMHx: Diabetes mellitus type II, HTN, HLD, Chronic COPD, Hypothyroidism, CAD, Hx SVT, Takotsubo Cardiomyopathy who presented to the [facility] ED on 07/20/18 w/ history of paresis, hypotensive in the ED with initial ED plain film with pneumoperitoneum with follow-up CT abdomen and pelvis with suspected perforation of the sigmoid colon. Patient admitted and treated with prolonged hospitalization secondary to Septic Shock secondary to Bacteremia w/ Clostridium w/ Surgical Culture w/ E. Coli, Acinetobacter and Anaerobes secondary to Acute Large Bowel Perforation w/ Peritonitis. As noted, ED evaluation w/ hypotension, CXR w/ evidence per pneumoperitoneum, CT abdomen and pelvis with evidence of suspected perforated descending colon, transitioned immediately from ED to ex lap with left colon resection with end colostomy with noted perforated descending colon near the splenic flexure. LA admission 5.9-->improved following operative intervention and aggressive hydration. Following intervention patient transitioned to the ICU, ICU physician consulted, treated with broad-spectrum antibiotics including unasyn initially, transitioned to meropenem eventually stopped on 08/04/18 per ICU discretion given clinical improvement. Patient clinically improved and transitioned to the PCU. Surgery discontinued NGT 08/05/18. Diet slowly advanced per Surgery discretion ADA, thickened liquids. TPN discontinued. During admission, patient w/ SVT episodes although evidence of potential atrial flutter as well as SVT with aberrancy responsive to IV adenosine. Patient treated w/ initially IV and transitioned to oral amiodarone. Noted DEMETRA upon presentation, secondary to acute presentation w/ admission BUN/Cr 27/2.35, prior baseline creatinine noted to be 1.2-1.5. Patient hydrated, nephrotoxic regimen held, improved with improvement of septic shock. 08/06/18 BUN/Cr 63/1.26 with requested repeat CBC, BMP at facility. Once improved as noted, added back additionally home metoprolol regimen and daily 81 mg ASA as well as oral statin. During admission, held home higher dose regimen, changed to BID lower dose lantus, transitioned to ACHS ISS as advanced diet. Patient discharged to SNF in improved condition with planned ongoing PT, OT therapies with follow-up with Surgery, Cardiology, PCP and ID as needed. Discharge Time: > 35 Minutes DAY OF DISCHARGE PROGRESS NOTE: Subjective: Patient without acute event overnight per self and nursing report. She has been tolerating her diet advancement and this AM per Dr. Hannah transitioned allowance to ADA with alterations. Patient denies fever, chills, nausea, emesis, worsened abdominal pain, chest pain or dyspnea. Patient agreeable to discharge to SNF for continued PT and OT evaluations. Patient will be discharged with follow-up with primary care physician in addition to her Assistant Site Manager within 2 weeks, Surgery within 1 week and ID as needed. Objective: T 98.5, heart rate 77, BP 131/68, respiratory rate 18, 95% on room air. Physical Examination: General: awake, alert, oriented x 3 and cooperative, seated upright in bed in no apparent distress. Skin: normal color, turgor, no icterus, cyanosis except occasional staged ecchymoses to extremities, midline incision with dressing in place, ostomy appropriate. HEENT: AT/NC, EOMI, PERRLA, improved MMM. Lungs: Breath sounds bilaterally, greater bilateral poor to mild effort, no rales, ronchi or wheezing. Heart: Regular rate and rhythm; no gallop, rub audible. Abdomen: soft, expected TTP near incision, ostomy in place, normal BS. Extremities: no cyanosis, clubbing, BL hand, ankle edema. Neurological: patient awake, alert, oriented x 3; cognitive function intact; pupils equally reactive to light and accomodation; cranial nerves II-XII grossly normal, moving all 4 extremities, no focal deficits, strength severely globally decreased. Psychiatric: affect appears fatigued, no acute evidence of depressive or anxiety feelings. Assessment and Plan: Please see hospital summary above. Inpatient E AND M: [id number] Disch Hosp 08/06/18 1421 <Electronically signed by Kasandra Almendarez > Date Kasandra Almendarez cc: TAMIKO Munguia; Kasandra Almendarez; Clement Bueno MD * Signed Discharge Date and Diagnosis - Problem List Patient Problems: Active and Suspected Problems (Last Reviewed 03/01/18 @ 13:10 by Victoria Fu) Large bowel perforation (Acute) Septic shock (Acute) Peritonitis (Acute) Date of Admission: 07/20/18 Date of Discharge: 08/06/18 - Primary Discharge Diagnosis Active and Suspected Problems (Last Reviewed 03/01/18 @ 13:10 by Victoria Fu) Large bowel perforation (Acute) Septic shock (Acute) Peritonitis (Acute) Postop ileus Supraventricular tachycardia Acute metabolic encephalopathy / ICU delirium Acute kidney injury secondary to sepsis History: COPD Takotsubo cardiomyopathy CAD Hypothyroidism Hyperlipidemia Type 2 diabetes - Secondary Discharge Diagnosis Chronic Problems (Last Reviewed 03/01/18 @ 13:10 by Victoria Fu) GERD (gastroesophageal reflux disease) (Chronic) Dysphagia (Chronic) Takotsubo cardiomyopathy (Chronic) Nonrheumatic tricuspid (valve) insufficiency (Chronic) Atherosclerotic heart disease of [place] coronary artery without angina pectoris (Chronic) Mild Hypothyroidism (Chronic) COPD (chronic obstructive pulmonary disease) (Chronic) Hyperlipidemia (Chronic) Type 2 diabetes mellitus (Chronic) Hospital Course and Treatment Imaging Results: RAD/Abd Inc Decub and/or Erect IMPRESSION: Nonspecific bowel gas pattern. RAD/Abdomen Single View (Portable) IMPRESSION: The tip of the orogastric tube is in the body of the stomach. CT/Abdomen/Pel W ORAL Cont Only IMPRESSION: Persistent infiltrate in the right lower lobe with a small pleural effusion. Sludge is seen within the gallbladder lumen and possible tiny gallstones. A colostomy is seen in the left mid abdomen. Increased markings in the mesentery most likely secondary to prior surgery. Thickened small bowel loops in the left mid abdomen with surrounding increased markings in the peritoneal fat. There is no evidence of free air at this time. RAD/Chest 1 View IMPRESSION: Progressive increased markings at the right lung base. The endotracheal tube has been removed. RAD/Abdomen Single View (Portable) IMPRESSION: Moderate amount of fecal material is seen in the colon. A colostomy is seen in the left lower quadrant. Atelectasis and/or infiltrate in the right lower lobe. RAD/Chest 1 View (Portable) IMPRESSION: All the side port tubes are in good position. Stable increased markings at the lung bases suggesting bibasilar atelectasis. RAD/CXR for Line Placement IMPRESSION: The tip of the right internal jugular venous catheter is in the right atrium. Increased markings at the lung bases suggestive bibasilar atelectasis and/or scarring. CT/Abdomen/Pelvis without Cont IMPRESSION: Free intraperitoneal air as well as retroperitoneal air. Sigmoid diverticulosis and possible perforation of the sigmoid colon Bibasilar atelectasis. Stable left renal cyst. RAD/Chest 1 View (Portable) IMPRESSION: Free intraperitoneal air. The referring physician was notified. RAD/Chest 1 View (Portable) IMPRESSION: Findings suggestive of underlying atelectasis and/or scarring at the lung bases. Questionable free air beneath the right hemidiaphragm. A right side up decubitus view is recommended for further evaluation. 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 She was found to be in septic shock with significant lactic acidosis, hypotension, hypoxia and found to have free intraperitoneal air possible perforated sigmoid colon on CT of the abdomen. She was felt to have septic shock secondary to acute peritonitis, perforated colon. General surgery was consulted and the patient was taken to the OR for exploratory laparotomy. She is found to have bowel perforation, and underwent a left colon resection and colostomy. Patient was taken to the ICU and placed on pressors. She was sedated and intubated. She was also found to have acute kidney injury on presentation, likely secondary to sepsis. Infectious disease was consulted and she was placed on ertapenem. Her cultures demonstrated E. coli, Bacteroides, multiple anaerobes Acinetobacter, Clostridium. She completed an 8-day course after which point infectious disease stopped meropenem. She was started on TPN while here which was managed by surgery. Eventually she was extubated on 07/23/18. She had an episode of SVT while here and cardiology was consulted. She was placed on amiodarone. Eventually she was able to start a diet, she had significant dysphagia and requires honey thickened liquids. TPN was discontinued and she was ordered to have dietary supplementation. Her diet was advanced to a cardiac diet with thickened liquids. Overall she continued to improve but remained severely debilitated. She will continue to need nursing home with PT OT and ST. She needs ongoing ostomy care. She is now in stable condition and being discharged back to nursing home. She will need to follow-up with general surgery in 1 week, infectious disease, cardiology, and her PCP. [] Discharge Diet: Low fat/ Low Cholesterol, 2000 mg Sodium Diet, - - Glucerna 4x/day, honey thick liquids Discharge Activity: Return to Normal Activity Home Medications: Medications to take at Discharge Levothyroxine [Synthroid] 25 mcg PO DAILY@0600 05/23/16 Trazodone HCl 50 mg PO QHS 05/23/16 Atorvastatin Calcium [Lipitor] 20 mg PO QHS 03/01/18 oxybutynin chloride ER 10 mg tablet,extended release 24 hr 10 mg PO QHS 03/01/18 Fluticasone/Salmeterol [Advair 500/50 Mcg Diskus] 1 puff INHALATION BID 06/04/18 Aspirin [Aspirin, Baby] 81 mg PO DAILY@0800 07/20/18 Cholecalciferol (Vitamin D3) [Vitamin D3] 1,000 unit PO DAILY 07/20/18 Cyanocobalamin (Vitamin B-12) [Vitamin B-12] 1,000 mcg PO DAILY 07/20/18 Acetaminophen [Tylenol Tablet] 650 mg PO Q6H PRN PRN tablet 08/06/18 Albuterol Aerosols [Ventolin Aerosols] 2.5 mg INHALATION Q2H PRN PRN vial.neb. 08/06/18 Amiodarone HCl [Cordarone] 200 mg PO BID tablet 08/06/18 Amiodarone HCl [Cordarone] 200 mg PO DAILY tablet 08/06/18 Glucerna Shake 120 ml PO 4X/DAY liquid 08/06/18 Insulin Glargine [Lantus SoloStar Pen] 10 units SC BID pen 08/06/18 Ipratropium/Albuterol Sulfate [Duoneb] 3 ml INHALATION Q6HWA.RT ampul.neb 08/06/18 Magnesium Hydroxide [Milk Of Magnesia] 30 ml PO DAILY PRN PRN udc 08/06/18 Metoprolol Tartrate [Lopressor (beta katty)] 25 mg PO BID tablet 08/06/18 Nystatin 500,000 unit PO 4X/DAY udc 08/06/18 Pantoprazole Sodium [Protonix] 40 mg PO BID tablet 08/06/18 Primary Care Physician: Clement Bueno MD [Primary Care Provider] - Please follow up with your Primary Care Physician in: 3-4 weeks Please Follow Up With: Aurora Young MD When: 1 week Please Follow Up With: Lokesh Pulilam MD When: 2 weeks Please Follow Up With: Charly Ross MD When: 2 weeks Disposition: Correction facility Minutes spent on discharge:: 40 Patient Condition:: Stable Medical Necessity - Tobacco Use Smoking Status: Never smoker Tobacco Use: Non-smoker Meaningful Use Info Meaningful Use Diagnoses (Choose all that apply): None applicable 08/06/18 1414 <Electronically signed by King MORRISON> Date King MORRISON 08/06/18 1416<Electronically signed by Kasandra Almendarez > Cosigner Signature (if applicable): Date Kasandra Almendarez CC: TAMIKO Munguia; Kasandra Almendarez; Clement Bueno MD Signed BEDSIDE GLUCOSE Collected: 08/06/2018 Status: F Source: [place] 12:52 PM [facility] REPOSITORY TYPE CODE TESTS RESULT OUT OF REFERENCE UNITS RANGE LAB L501.080 70-110 mg/dL High BEDSIDE GLU 221 Result Comment: MANAGEMENT OF PATIENT CARE PER NURSING PROTOCOL Performed By: #### L501.080 #### [facility] Laboratory Point of Care [address] [place] [address] TRANSFER TO [facility] Observed: 08/06/2018 Status: F Source: [facility] 11:53 AM [facility] REPOSITORY [facility] Medical Records Department [address] [place] [address] Transfer to [facility] Care MR#: [id number] Acct: [id number] Name: JIMENEZ WYNN Rep #: [id number] : [id number] From: King MORRISON PCP: Clement Bueno MD Status: ADM IN JIMENEZ WYNN (Patient) (Health Ins. Claim No.) (Day of Discharge to Facility) Certification of patient admission REQUIRED AT TIME OF ADMISSION. I CERTIFY THAT POST-HOSPITAL ECF SERVICES ARE REQUIRED TO BE GIVEN ON AN IN-PATIENT BASIS BECAUSE OF THE ABOVE NAMED PATIENT'S NEED FOR SNF CARE ON A CONTINUING BASIS FOR THE CONDITION(S) FOR WHICH HE/SHE WAS RECEIVING IN-PATIENT HOSPITAL SERVICES PRIOR TO HIS/HER TRANSFER TO THE [facility]. 08/06/18 1139 <Electronically signed by King MORRISON> Date King MORRISON ADDENDUM by Kasandra Almendarez on 08/06/18 at 1152 Code Visit Surgery re-evaluation on day of discharge and amenable to advancing diet w/ alteration parameters (thickening) to ADA 2000 diet. 08/06/18 1153 <Electronically signed by Kasandra Almendarez > Date Kasandra Almendarez cc: Juan Jose Lemon MD; Clement Bueno MD; Charly Ross MD; Lokesh Pulliam MD; Aurora Young MD * Signed - Diet 08/05/18 11:05 Diet: Full Liquid Dietary Modifications:: Honey Thick Liquids Is pt able to select menu?: No Diet Comments: honey thick liquids Glucerna 120 mL 4x / day - Routine Orders/Code Status Routine Lab Work: CBC - 3 days, BMP - 3 days Code Status: DNRCC-A - Wound(s) midline abd Wound Type: Surgical Incision Dressing Change: Wet to Dry Dressing Mid upper chest Wound Type: Abrasion Left Hip Wound Type: Abrasion R Neck Wound Type: Puncture - Therapies Physical Therapy: Eval and Treat Occupational Therapy: Eval and Treat Speech Therapy: Eval and Treat - Problem/Diagnosis (1) Large bowel perforation Status: Acute Current Visit: Yes (2) Peritonitis Status: Acute Current Visit: Yes (3) Septic shock Status: Acute Current Visit: Yes (4) SVT (supraventricular tachycardia) Status: Acute Current Visit: No (5) DEMETRA (acute kidney injury) Status: Acute Current Visit: No (6) GERD (gastroesophageal reflux disease) Status: Chronic Current Visit: Yes (7) Dysphagia Status: Chronic Current Visit: Yes (8) Atherosclerotic heart disease of [place] coronary artery without angina pectoris Status: Chronic Comment: Mild Current Visit: No (9) COPD (chronic obstructive pulmonary disease) Status: Chronic Current Visit: No (10) Hyperlipidemia Status: Chronic Current Visit: No (11) Hypothyroidism Status: Chronic Current Visit: No (12) Takotsubo cardiomyopathy Status: Chronic Current Visit: No (13) Type 2 diabetes mellitus Status: Chronic Current Visit: No - Allergies/Procedures Done in Hospital Allergies/Adverse Reactions: Allergies codeine Allergy (Severe, Verified 07/20/18 08:52) HEART ATTACK levofloxacin [From Levaquin] Allergy (Severe, Verified 07/20/18 08:52) Anaphylaxis Sulfa (Sulfonamide Antibiotics) Allergy (Unknown, Verified 07/20/18 08:52) Unknown adhesive tape Allergy (Verified 07/20/18 08:52) Other citalopram Allergy (Verified 07/20/18 08:52) Unknown Latex, Natural Rubber Allergy (Verified 07/20/18 08:52) Rash Penicillins Allergy (Verified 07/20/18 08:52) Rash acetaminophen [From Vicodin] Adverse Reaction (Verified 07/20/18 08:52) Chest tightness hydrocodone bitartrate [From Vicodin] Adverse Reaction (Verified 09/18/18 08:52) Chest tightness Procedures: - - left colon resection, laparotomy, end colostomy, TPN - Type of Care/Length of Stay Estimated LOS: Convalescent Care Less Than 30 days Type of Care Needed: Skilled Rehab Potential: Fair Prognosis: Fair - Additional Orders/Day of Discharge Day of Discharge: 08/06/18 - Dietary and Speech Recommendations Dietitian Recommendations/Changes: Even as oral diet advanced, recommend TPN for nutrition support until adequate PO at meals/tolerance of diet is established. Rec 2L 5% AA/ 20% Dextrose to provide 1760 calories/100 g pro/day and 250 cc 20% Lipids 3x/wk to provide an additional 1500 calories/week. Would advance diet as tolerated to transitional diet w/ Glucerna 120 mL 4x/day w/ medpass- consistency per AUTOMATION DRIVER. - Follow Up Care Primary Care Physician: Clement Bueno MD [Primary Care Provider] - Please follow up with your Primary Care Physician in: 3-4 weeks Please Follow Up With: Aurora Young MD When: 1 week Please Follow Up With: Lokesh Pulliam MD When: 2 weeks Please Follow Up With: Charly Ross MD When: 2 weeks 08/06/18 1139 <Electronically signed by King MORRISON> Date King MORRISON CC: Juan Jose Lemon MD; Clement Bueno MD; Charly Ross MD; Lokesh Pulliam MD; Aurora Young MD Signed BEDSIDE GLUCOSE Collected: 08/06/2018 Status: F Source: [place] 6:32 AM [facility] REPOSITORY TYPE CODE TESTS RESULT OUT OF REFERENCE UNITS RANGE LAB L501.080 70-110 mg/dL High BEDSIDE GLU 186 Result Comment: MANAGEMENT OF PATIENT CARE PER NURSING PROTOCOL Performed By: #### L501.080 #### [facility] Laboratory Point of Care [address] [place] [address] CBC-COMPLETE BLOOD CNT Collected: 08/06/2018 Status: F Source: [place] NO DIFF 5:45 AM [facility] REPOSITORY Order Comment: SPECIMEN OBTAINED FROM LINE DRAW TYPE CODE TESTS RESULT OUT OF RANGE REFERENCE UNITS LAB L100.1000 4.4-11.0 K/mm3 Normal WBC 7.3 LAB L100.1200 4.2-5.4 M/mm3 Low RBC 2.55 LAB L100.1300 12.0-15.0 g/dl Low HGB 8.2 LAB L100.1400 37-47 % Low HCT 24.5 LAB L100.1500 81-99 fL Normal MCV 96.1 LAB L100.1600 27.0-32.0 pg High MCH 32.2 LAB L100.1700 32-36 g/gl Normal MCHC 33.5 LAB L100.1810 11.6-14.6 % High RDW CV 16.4 LAB L100.1820 35.1-43.9 fl High RDW SD 55.2 LAB L100.1900 150-450 K/mm3 Normal PLT 344 LAB L100.2000 6.2-12.0 fl Normal MPV 9.0 Performed By: #### L100.0500 #### [facility] Laboratory [address] [place], [address] BASIC METABOLIC Collected: 08/06/2018 Status: F Source: [place] PROFILE (BMP) 5:45 AM [facility] REPOSITORY Order Comment: SPECIMEN OBTAINED FROM LINE DRAW TYPE CODE TESTS RESULT OUT OF RANGE REFERENCE UNITS LAB L501.0100 74-106 mg/dL High GLU 187 Result Comment: Fasting Glucose result greater than or equal to 126 mg/dL suggests DIABETES MELLITUS per A.D.A. criteria. Please note revised GLUCOSE reference range effective 2017. LAB L501.1000 7-18 mg/dL High BUN 63 LAB L501.1100 0.55-1.02 mg/dL High CREAT,SERUM 1.26 Result Comment: The validity of the calculated GFR AND GFRAA in patients over 70 years has not been determined. Clinical correlation is essential. LAB L501.1110 >60 mL/min Low EST GFR 43 Result Comment: Non- GFR Calc LAB L501.1115 >60 mL/min Low EST GFR - AA 52 Result Comment: GFR Calc LAB L501.1255 ml/min Normal Estimated CRCL 32.78 LAB L501.1300 10-20 RATIO High BUN/CRE 50.0 LAB L501.2200 8.5-10 mg/dL Low .1 CA 8.2 LAB L501.5300 136-14 mmol/L Normal 5 NA 138 LAB L501.5600 3.5-5. mmol/L Normal 1 K 4.6 LAB L501.5900 98-107 mmol/L Normal CL 106 LAB L501.6100 21.0-3 mmol/L Normal 2.0 CO2 24.0 LAB L501.6200 5-15 Normal GAP 8 Performed By: #### L500.2500 #### [facility] Laboratory [address] [facility] [address] BEDSIDE GLUCOSE Collected: 08/05/2018 Status: F Source: [place] 9:02 PM [facility] REPOSITORY TYPE CODE TESTS RESULT OUT OF REFERENCE UNITS RANGE LAB L501.080 70-110 mg/dL High BEDSIDE GLU 153 Result Comment: MANAGEMENT OF PATIENT CARE PER NURSING PROTOCOL Performed By: #### L501.080 #### [facility] Laboratory Point of Care [address] [place] [address] BEDSIDE GLUCOSE Collected: 08/05/2018 Status: F Source: [place] 5:28 PM [facility] REPOSITORY TYPE CODE TESTS RESULT OUT OF REFERENCE UNITS RANGE LAB L501.080 70-110 mg/dL High BEDSIDE GLU 179 Result Comment: MANAGEMENT OF PATIENT CARE PER NURSING PROTOCOL Performed By: #### L501.080 #### [facility] Laboratory Point of Care [address] [place] [address] BEDSIDE GLUCOSE Collected: 08/05/2018 Status: F Source: [place] 11:33 AM [facility] REPOSITORY TYPE CODE TESTS RESULT OUT OF REFERENCE UNITS RANGE LAB L501.080 70-110 mg/dL High BEDSIDE GLU 190 Result Comment: MANAGEMENT OF PATIENT CARE PER NURSING PROTOCOL Performed By: #### L501.080 #### [facility] Laboratory Point of Care [address] [place] [address] BEDSIDE GLUCOSE Collected: 08/05/2018 Status: F Source: [place] 5:22 AM [facility] REPOSITORY TYPE CODE TESTS RESULT OUT OF REFERENCE UNITS RANGE LAB L501.080 70-110 mg/dL High BEDSIDE GLU 134 Result Comment: MANAGEMENT OF PATIENT CARE PER NURSING PROTOCOL Performed By: #### L501.080 #### [facility] Laboratory Point of Care [address] [place] [address] BEDSIDE GLUCOSE Collected: 08/04/2018 Status: F Source: [place] 11:05 PM [facility] REPOSITORY TYPE CODE TESTS RESULT OUT OF REFERENCE UNITS RANGE LAB L501.080 70-110 mg/dL High BEDSIDE GLU 143 Result Comment: MANAGEMENT OF PATIENT CARE PER NURSING PROTOCOL Performed By: #### L501.080 #### [facility] Laboratory Point of Care [address] [place] [address] BEDSIDE GLUCOSE Collected: 08/04/2018 Status: F Source: [place] 5:00 PM [facility] REPOSITORY TYPE CODE TESTS RESULT OUT OF REFERENCE UNITS RANGE LAB L501.080 70-110 mg/dL High BEDSIDE GLU 152 Result Comment: MANAGEMENT OF PATIENT CARE PER NURSING PROTOCOL Performed By: #### L501.080 #### [facility] Laboratory Point of Care [address] [place] [address] BEDSIDE GLUCOSE Collected: 08/04/2018 Status: F Source: [place] 11:55 AM [facility] REPOSITORY TYPE CODE TESTS RESULT OUT OF REFERENCE UNITS RANGE LAB L501.080 70-110 mg/dL High BEDSIDE GLU 182 Result Comment: MANAGEMENT OF PATIENT CARE PER NURSING PROTOCOL Performed By: #### L501.080 #### [facility] Laboratory Point of Care [address] 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 Approval by Infectious Disease Specialist required before non-formulary drugs may be ordered and/or dispensed. Performed By: #### M100.1400 #### [facility] [address] [place], [place], [address] BEDSIDE GLUCOSE Collected: 08/04/2018 Status: F Source: [place] 5:16 AM [facility] REPOSITORY TYPE CODE TESTS RESULT OUT OF REFERENCE UNITS RANGE LAB L501.080 70-110 mg/dL High BEDSIDE GLU 159 Result Comment: MANAGEMENT OF PATIENT CARE PER NURSING PROTOCOL Performed By: #### L501.080 #### [facility] Laboratory Point of Care [address] [place] [address] BASIC METABOLIC Collected: 08/04/2018 Status: F Source: [place] PROFILE (BMP) 4:30 AM [facility] REPOSITORY TYPE CODE TESTS RESULT OUT OF RANGE REFERENCE UNITS LAB L501.0100 74-106 mg/dL High GLU 147 Result Comment: Fasting Glucose result greater than or equal to 126 mg/dL suggests DIABETES MELLITUS per A.D.A. criteria. Please note revised GLUCOSE reference range effective 2017. LAB L501.1000 7-18 mg/dL High BUN 47 LAB L501.1100 0.55-1.02 mg/dL High CREAT,SERUM 1.04 Result Comment: The validity of the calculated GFR AND GFRAA in patients over 70 years has not been determined. Clinical correlation is essential. LAB L501.1110 >60 mL/min Low EST GFR 54 Result Comment: Non- GFR Calc LAB L501.1115 >60 mL/min Normal EST GFR - AA 65 Result Comment: GFR Calc LAB L501.1255 ml/min Normal Estimated CRCL 39.72 LAB L501.1300 10-20 RATIO High BUN/CRE 45.2 LAB L501.2200 8.5-10 mg/dL Low .1 CA 7.6 LAB L501.5300 136-14 mmol/L Normal 5 NA 138 LAB L501.5600 3.5-5. mmol/L Normal 1 K 4.6 LAB L501.5900 98-107 mmol/L Normal CL 106 LAB L501.6100 21.0-3 mmol/L Normal 2.0 CO2 25.0 LAB L501.6200 5-15 Normal GAP 7 Performed By: #### L500.2500 #### [facility] [address] [place], [place], [id number] BEDSIDE GLUCOSE Collected: 08/03/2018 Status: F Source: [place]IS[place] 11:37 PM [facility] REPOSITORY TYPE CODE TESTS RESULT OUT OF REFERENCE UNITS RANGE LAB L501.080 70-110 mg/dL High BEDSIDE GLU 173 Result Comment: MANAGEMENT OF PATIENT CARE PER NURSING PROTOCOL Performed By: #### L501.080 #### [facility] Laboratory Point of Care [address] [place], [place] [id number] BEDSIDE GLUCOSE Collected: 08/03/2018 Status: F Source: [place]IS[place] 5:59 PM [facility] REPOSITORY TYPE CODE TESTS RESULT OUT OF REFERENCE UNITS RANGE LAB L501.080 70-110 mg/dL High BEDSIDE GLU 147 Result Comment: MANAGEMENT OF PATIENT CARE PER NURSING PROTOCOL Performed By: #### L501.080 #### [facility] Laboratory Point of Care [address] [place] [address] BEDSIDE GLUCOSE Collected: 08/03/2018 Status: F Source: [place]IS[place] 12:36 PM [facility] REPOSITORY TYPE CODE TESTS RESULT OUT OF REFERENCE UNITS RANGE LAB L501.080 70-110 mg/dL High BEDSIDE GLU 175 Result Comment: MANAGEMENT OF PATIENT CARE PER NURSING PROTOCOL Performed By: #### L501.080 #### [facility] Laboratory Point of Care [address] [place] [address] CBC-COMPLETE BLOOD CNT Collected: 08/03/2018 Status: F Source: [place] NO DIFF 8:42 AM [facility] REPOSITORY TYPE CODE TESTS RESULT OUT OF RANGE REFERENCE UNITS LAB L100.1000 4.4-11.0 K/mm3 Normal WBC 8.7 LAB L100.1200 4.2-5.4 M/mm3 Low RBC 2.75 LAB L100.1300 12.0-15.0 g/dl Low HGB 8.5 LAB L100.1400 37-47 % Low HCT 25.8 LAB L100.1500 81-99 fL Normal MCV 93.8 LAB L100.1600 27.0-32.0 pg Normal MCH 30.9 LAB L100.1700 32-36 g/gl Normal MCHC 32.9 LAB L100.1810 11.6-14.6 % High RDW CV 17.2 LAB L100.1820 35.1-43.9 fl High RDW SD 57.2 LAB L100.1900 150-450 K/mm3 Normal PLT 340 LAB L100.2000 6.2-12.0 fl Normal MPV 10.0 Performed By: #### L100.0500 #### [facility] [address] [place], [address] BASIC METABOLIC Collected: 08/03/2018 Status: F Source: [place] PROFILE (BMP) 8:42 AM [facility] REPOSITORY TYPE CODE TESTS RESULT OUT OF RANGE REFERENCE UNITS LAB L501.0100 74-106 mg/dL High GLU 135 Result Comment: Fasting Glucose result greater than or equal to 126 mg/dL suggests DIABETES MELLITUS per A.D.A. criteria. Please note revised GLUCOSE reference range effective 2017. LAB L501.1000 7-18 mg/dL High BUN 46 LAB L501.1100 0.55-1.02 mg/dL High CREAT,SERUM 1.12 Result Comment: The validity of the calculated GFR AND GFRAA in patients over 70 years has not been determined. Clinical correlation is essential. LAB L501.1110 >60 mL/min Low EST GFR 50 Result Comment: Non- GFR Calc LAB L501.1115 >60 mL/min Normal EST GFR - AA 60 Result Comment: GFR Calc LAB L501.1255 ml/min Normal Estimated CRCL 36.88 LAB L501.1300 10-20 RATIO High BUN/CRE 41.1 LAB L501.2200 8.5-10 mg/dL Low .1 CA 7.6 LAB L501.5300 136-14 mmol/L Normal 5 NA 139 LAB L501.5600 3.5-5. mmol/L Normal 1 K 4.4 LAB L501.5900 98-107 mmol/L High CL 109 LAB L501.6100 21.0-3 mmol/L Normal 2.0 CO2 23.0 LAB L501.6200 5-15 Normal GAP 7 Performed By: #### L500.2500, L500.3400, L506.0500 #### [facility] [address] [place], [address] LIVER PROFILE Collected: 08/03/2018 Status: F Source: GISSEL 8:42 AM [facility] REPOSITORY TYPE CODE TESTS RESULT OUT OF RANGE REFERENCE UNITS LAB L501.1500 6.4-8.2 g/dL Low T PROT 4.9 LAB L501.1800 3.2-5.0 g/dL Low ALB 1.2 LAB L501.1950 2.2-4.2 g/dL Normal GLOB 3.7 LAB L501.4100 15-37 U/L Low AST 11 LAB L501.4305 45-117 U/L Normal ALK P 92 LAB L501.4405 13-56 U/L Low ALT 7 LAB L501.4600 0.20-1.00 mg/dL Normal T BILI 0.20 LAB L501.4700 0.00-0.30 mg/dL Normal D BILI 0.11 Performed By: #### L500.2500, L500.3400, L506.0500 #### [facility] [address] [place], [address] PREALBUMIN Collected: 08/03/2018 Status: F Source: FIREBAUGH 8:42 AM [facility] REPOSITORY TYPE CODE TESTS RESULT OUT OF REFERENCE UNITS RANGE LAB L506.0500 20.0-40.0 mg/dL Low PREALBUMIN 11.1 Performed By: #### L500.2500, L500.3400, L506.0500 #### [facility] [address] [place], [address] BEDSIDE GLUCOSE Collected: 08/03/2018 Status: F Source: FIREBAUGH 5:34 AM [facility] REPOSITORY TYPE CODE TESTS RESULT OUT OF REFERENCE UNITS RANGE LAB L501.080 70-110 mg/dL High BEDSIDE GLU 143 Result Comment: MANAGEMENT OF PATIENT CARE PER NURSING PROTOCOL Performed By: #### L501.080 #### [facility] Point of Care [address] [place] [address] BEDSIDE GLUCOSE Collected: 08/03/2018 Status: F Source: GISSEL 12:21 AM [facility] REPOSITORY TYPE CODE TESTS RESULT OUT OF REFERENCE UNITS RANGE LAB L501.080 70-110 mg/dL High BEDSIDE GLU 140 Result Comment: MANAGEMENT OF PATIENT CARE PER NURSING PROTOCOL Performed By: #### L501.080 #### [facility] Point of Care [address] [place] [address] BEDSIDE GLUCOSE Collected: 08/02/2018 Status: F Source: GISSEL 5:59 PM [facility] REPOSITORY TYPE CODE TESTS RESULT OUT OF REFERENCE UNITS RANGE LAB L501.080 70-110 mg/dL High BEDSIDE GLU 140 Result Comment: MANAGEMENT OF PATIENT CARE PER NURSING PROTOCOL Performed By: #### L501.080 #### [facility] Point of Care [address] [place] [address] ABD INC DECUB Observed: 08/02/2018 Status: F Source: GISSEL AND/OR ERECT 12:36 PM [facility] REPOSITORY [facility] Imaging Services [address] [place] [address] Abd Inc Decub and/or Erect MR#: [id number] Acct: [id number] Name: JIMENEZ WYNN Rep #: [id number] : 1935 F 82 From: Jourdan De La Fuente MD PCP: Clement Bueno MD Status: ADM IN Study: Abd Inc Decub and/or Erect Date of Exam: 08/02/18 Exam# [id number] Ordering Dr: Aurora Young MD STUDY: X-RAY - ABDOMEN/PELVIS REASON FOR EXAM: Female, 82 years old. Prior laparotomy. Possible obstruction. Colostomy placement. TECHNIQUE: AP supine and decubitus views of the abdomen and pelvis. COMPARISON: Comparison is made with prior study dated July 29, 2018. FINDINGS: A nasogastric tube is seen. The tip is in the body of the stomach. There is an unremarkable bowel gas pattern. Gas and fecal material are seen in the rectum. There is no demonstrated free abdominal air. The visualized liver, spleen and kidneys are grossly normal in size and morphology. Normal soft tissue structures. There are diffuse degenerative changes of the visualized lumbar spine. The patient is status post bilateral hip replacement. RAD/Abd Inc Decub and/or Erect IMPRESSION: Nonspecific bowel gas pattern. Electronically Signed: Jourdan De La Fuente MD at 15:55 EDT Tel [phone], Service support , CC: Clement Bueno MD; Aurora Young MD Sales Manager: Signed BEDSIDE GLUCOSE Collected: 08/02/2018 Status: F Source: GISSEL 12:11 PM [facility] REPOSITORY TYPE CODE TESTS RESULT OUT OF REFERENCE UNITS RANGE LAB L501.080 70-110 mg/dL High BEDSIDE GLU 112 Result Comment: MANAGEMENT OF PATIENT CARE PER NURSING PROTOCOL Performed By: #### L501.080 #### [facility] [place] [address] BASIC METABOLIC Collected: 08/02/2018 Status: F Source: GISSEL PROFILE (BMP) 6:32 AM [facility] REPOSITORY TYPE CODE TESTS RESULT OUT OF RANGE REFERENCE UNITS LAB L501.0100 74-106 mg/dL Normal GLU 98 Result Comment: Please note revised GLUCOSE reference range effective 2017. LAB L501.1000 7-18 mg/dL High BUN 52 LAB L501.1100 0.55-1.02 mg/dL High CREAT,SERUM 1.22 Result Comment: The validity of the calculated GFR AND GFRAA in patients over 70 years has not been determined. Clinical correlation is essential. LAB L501.1110 >60 mL/min Low EST GFR 45 Result Comment: Non- GFR Calc LAB L501.1115 >60 mL/min Low EST GFR - AA 54 Result Comment: GFR Calc LAB L501.1255 ml/min Normal Estimated CRCL 33.86 LAB L501.1300 10-20 RATIO High BUN/CRE 42.6 LAB L501.2200 8.5-10 mg/dL Low .1 CA 7.7 LAB L501.5300 136-14 mmol/L Normal 5 NA 137 LAB L501.5600 3.5-5. mmol/L Normal 1 K 4.2 LAB L501.5900 98-107 mmol/L Normal CL 107 LAB L501.6100 21.0-3 mmol/L Low 2.0 CO2 20.0 LAB L501.6200 5-15 Normal GAP 10 Performed By: #### L500.2500, L501.5200 #### [facility] [address] [place], [address] MAGNESIUM Collected: 08/02/2018 Status: F Source: FIREBAUGH 6:32 AM [facility] REPOSITORY TYPE CODE TESTS RESULT OUT OF RANGE REFERENCE UNITS LAB L501.5200 1.6-2.6 mg/dL Normal MG 2.2 Performed By: #### L500.2500, L501.5200 #### [facility] [address] [place], [address] PHOSPHORUS Collected: 08/02/2018 Status: F Source: FIREBAUGH 6:32 AM [facility] REPOSITORY TYPE CODE TESTS RESULT OUT OF RANGE REFERENCE UNITS LAB L501.2300 2.5-4.9 mg/dL Normal PHOS 3.7 Performed By: #### L501.2300 #### [facility] [address] [place], [address] CBC W/DIFF, AUTOMATED Collected: 08/02/2018 Status: C Source: FIREBAUGH 6:32 AM [facility] REPOSITORY Order Comment: REDRAW. PREVIOUS SPECIMEN REJECTED DUE TO QNS. 08/02/18 0717 Dorie Reynolds. TYPE CODE TESTS RESULT OUT OF RANGE REFERENCE UNITS LAB L100.1000 4.4-11.0 K/mm3 Normal WBC 10.3 LAB L100.1200 4.2-5.4 M/mm3 Low RBC 2.81 LAB L100.1300 12.0-15.0 g/dl Low HGB 8.7 LAB L100.1400 37-47 % Low HCT 26.2 LAB L100.1500 81-99 fL Normal MCV 93.2 LAB L100.1600 27.0-32.0 pg Normal MCH 31.0 LAB L100.1700 32-36 g/gl Normal MCHC 33.2 LAB L100.1810 11.6-14.6 % High RDW CV 17.2 LAB L100.1820 35.1-43.9 fl High RDW SD 56.8 LAB L100.1900 150-450 K/mm3 Normal PLT 320 LAB L100.2000 6.2-12.0 fl Normal MPV 10.8 LAB L100.2100 47-70 % High NEUT% 71.3 LAB L100.2200 19-41 % Low LY% 11.5 LAB L100.2300 0-10 % High MONO% 11.6 LAB L100.2400 0-5 % Normal EO% 2.6 LAB L100.2500 0-1 % Normal BASO% 0.5 LAB L100.2550 0.0-0.9 % High IM GRAN % 2.500 Result Comment: IG% - Immature Granulocytes (promyelocytes, myelocytes and metamyelocytes) > 1% indicates that a LEFT SHIFT is Present. LAB L100.2620 2.0-7.7 X10 3/uL Normal Absolute Neut 7.4 LAB L100.2720 0.83-4.51 X10 3/ul Normal Absolute Lymph 1.19 LAB L100.9900 Normal PATH REV Reviewed Result Comment: Normocytic anemia. Clinical correlation necessary. Jeffrey Ryan M.D. 08/03/18 AMENDED REPORT 08/03/18 0925 PATH REV previously reported as: March sylvia Performed By: #### L100.0100 #### [facility] [address] [place] [address]. [place], [place], [address] BEDSIDE GLUCOSE Collected: 08/02/2018 Status: F Source: GISSEL 5:33 AM [facility] REPOSITORY TYPE CODE TESTS RESULT OUT OF REFERENCE UNITS RANGE LAB L501.080 70-110 mg/dL High BEDSIDE GLU 113 Result Comment: MANAGEMENT OF PATIENT CARE PER NURSING PROTOCOL Performed By: #### L501.080 #### [facility] Point of Care [address] [place], [place] [address] BEDSIDE GLUCOSE Collected: 08/01/2018 Status: F Source: GISSEL 11:56 PM [facility] REPOSITORY TYPE CODE TESTS RESULT OUT OF RANGE REFERENCE UNITS LAB L501.080 70-110 mg/dL Normal BEDSIDE GLU 94 Result Comment: MANAGEMENT OF PATIENT CARE PER NURSING PROTOCOL Performed By: #### L501.080 #### [facility] Point of Care [address] [place], [place] [address] BEDSIDE GLUCOSE Collected: 08/01/2018 Status: F Source: GISSEL 6:10 PM [facility] REPOSITORY TYPE CODE TESTS RESULT OUT OF REFERENCE UNITS RANGE LAB L501.080 70-110 mg/dL High BEDSIDE GLU 195 Result Comment: MANAGEMENT OF PATIENT CARE PER NURSING PROTOCOL Performed By: #### L501.080 #### [facility] Point of Care [address] [place], [place] [address] TYPE AND SCREEN Collected: 08/01/2018 Status: F Source: GISSEL 12:16 PM [facility] REPOSITORY Order Comment: CMV NEG? N Number of units to transfuse: 1 Is pt's Hgb is </= to 7.0 mg/dl or Hct </= 21%? Y Reason for Ordering Blood: Chronic Are the blood/blood products to be transfused? Y Is the patient having/had surgery? N CMV NEG?* N Give When? When Ready Irradiated? N Leukodepleted? Y Reason for Type AND Screen/Red Cells: ANEMIA TYPE CODE TESTS RESULT OUT OF RANGE REFERENCE UNITS LAB B10.0800 O Normal BLOOD TYPE GEL POSITIVE LAB B100.4000 Normal Antibody NEGATIVE Screen Performed By: #### B101.7450 #### [facility] [address] [place], [place] [address] [place], [place], [address] RC Collected: 08/01/2018 Status: F Source: GISSEL 12:16 PM [facility] REPOSITORY TYPE CODE TESTS RESULT OUT OF REFERENCE UNITS RANGE LAB U100.0000 [id number] TRANSFUSED PRODUCT: T AND S with Crossmatch, Red Cells COUNT: 1 Performed By: #### U100.0000 #### Non-[facility] - refer to report for specific site BEDSIDE GLUCOSE Collected: 08/01/2018 Status: F Source: GISSEL 11:28 AM [facility] REPOSITORY TYPE CODE TESTS RESULT OUT OF RANGE REFERENCE UNITS LAB L501.080 70-110 mg/dL Normal BEDSIDE GLU 110 Result Comment: MANAGEMENT OF PATIENT CARE PER NURSING PROTOCOL Performed By: #### L501.080 #### [facility] Point of Care [address] [place], [place] [id number] BEDSIDE GLUCOSE Collected: 08/01/2018 Status: F Source: GISSEL 7:58 AM [facility] REPOSITORY TYPE CODE TESTS RESULT OUT OF RANGE REFERENCE UNITS LAB L501.080 70-110 mg/dL Normal BEDSIDE GLU 96 Result Comment: MANAGEMENT OF PATIENT CARE PER NURSING PROTOCOL Performed By: #### L501.080 #### [facility] Point of Care [address] [place], [place] [address] BEDSIDE GLUCOSE Collected: 08/01/2018 Status: F Source: FIREBAUGH 5:26 AM [facility] REPOSITORY TYPE CODE TESTS RESULT OUT OF RANGE REFERENCE UNITS LAB L501.080 70-110 mg/dL Normal BEDSIDE GLU 89 Result Comment: MANAGEMENT OF PATIENT CARE PER NURSING PROTOCOL Performed By: #### L501.080 #### [facility] Point of Care [address] [place], [place] [address] CBC W/DIFF, AUTOMATED Collected: 08/01/2018 Status: F Source: GISSEL 5:10 AM [facility] REPOSITORY Order Comment: SPECIMEN OBTAINED FROM LINE DRAW TYPE CODE TESTS RESULT OUT OF RANGE REFERENCE UNITS LAB L100.1000 4.4-11.0 K/mm3 High WBC 11.9 LAB L100.1200 4.2-5.4 M/mm3 Low RBC 2.35 LAB L100.1300 12.0-15.0 g/dl Low HGB 7.4 LAB L100.1400 37-47 % Low HCT 22.4 LAB L100.1500 81-99 fL Normal MCV 95.3 LAB L100.1600 27.0-32.0 pg Normal MCH 31.5 LAB L100.1700 32-36 g/gl Normal MCHC 33.0 LAB L100.1810 11.6-14.6 % High RDW CV 16.5 LAB L100.1820 35.1-43.9 fl High RDW SD 55.5 LAB L100.1900 150-450 K/mm3 Normal PLT 324 LAB L100.2000 6.2-12.0 fl Normal MPV 10.8 LAB L100.2100 47-70 % High NEUT% 70.2 LAB L100.2200 19-41 % Low LY% 11.3 LAB L100.2300 0-10 % High MONO% 13.9 LAB L100.2400 0-5 % Normal EO% 2.6 LAB L100.2500 0-1 % Normal BASO% 0.3 LAB L100.2550 0.0-0.9 % High IM GRAN % 1.700 Result Comment: IG% - Immature Granulocytes (promyelocytes, myelocytes and metamyelocytes) > 1% indicates that a LEFT SHIFT is Present. LAB L100.2620 2.0-7.7 X10 3/uL High Absolute Neut 8.3 LAB L100.2720 0.83-4.51 X10 3/ul Normal Absolute Lymph 1.34 Performed By: #### L100.0100 #### [facility] [address] [place], [place] [address]. [place], [place], [address] BASIC METABOLIC Collected: 08/01/2018 Status: F Source: FIREBAUGH PROFILE (BMP) 5:10 AM [facility] REPOSITORY Order Comment: SPECIMEN OBTAINED FROM LINE DRAW TYPE CODE TESTS RESULT OUT OF RANGE REFERENCE UNITS LAB L501.0100 74-106 mg/dL Normal GLU 82 Result Comment: Please note revised GLUCOSE reference range effective 2017. LAB L501.1000 7-18 mg/dL High BUN 56 LAB L501.1100 0.55-1.02 mg/dL High CREAT,SERUM 1.28 Result Comment: The validity of the calculated GFR AND GFRAA in patients over 70 years has not been determined. Clinical correlation is essential. LAB L501.1110 >60 mL/min Low EST GFR 43 Result Comment: Non- GFR Calc LAB L501.1115 >60 mL/min Low EST GFR - AA 51 Result Comment: GFR Calc LAB L501.1255 ml/min Normal Estimated CRCL 32.27 LAB L501.1300 10-20 RATIO High BUN/CRE 43.8 LAB L501.2200 8.5-10 mg/dL Low .1 CA 7.8 LAB L501.5300 136-14 mmol/L Low 5 NA 135 LAB L501.5600 3.5-5. mmol/L Low 1 K 3.2 LAB L501.5900 98-107 mmol/L Normal CL 105 LAB L501.6100 21.0-3 mmol/L Normal 2.0 CO2 22.0 LAB L501.6200 5-15 Normal GAP 8 Performed By: #### L500.2500 #### [facility] [address] [facility] [id number] BEDSIDE GLUCOSE Collected: 08/01/2018 Status: F Source: GISSEL 12:00 AM [facility] REPOSITORY TYPE CODE TESTS RESULT OUT OF RANGE REFERENCE UNITS LAB L501.080 70-110 mg/dL Normal BEDSIDE GLU 105 Result Comment: MANAGEMENT OF PATIENT CARE PER NURSING PROTOCOL Performed By: #### L501.080 #### [facility] Point of Care [address] [place] [address] BEDSIDE GLUCOSE Collected: 07/31/2018 Status: F Source: GISSEL 6:02 PM [facility] REPOSITORY TYPE CODE TESTS RESULT OUT OF REFERENCE UNITS RANGE LAB L501.080 70-110 mg/dL High BEDSIDE GLU 128 Result Comment: MANAGEMENT OF PATIENT CARE PER NURSING PROTOCOL Performed By: #### L501.080 #### [facility] Point of Care [address] [place] [address] BEDSIDE GLUCOSE Collected: 07/31/2018 Status: F Source: GISSEL 11:42 AM [facility] REPOSITORY TYPE CODE TESTS RESULT OUT OF REFERENCE UNITS RANGE LAB L501.080 70-110 mg/dL High BEDSIDE GLU 118 Result Comment: MANAGEMENT OF PATIENT CARE PER NURSING PROTOCOL Performed By: #### L501.080 #### [facility] Point of Care [address] [place] [address] BEDSIDE GLUCOSE Collected: 07/31/2018 Status: F Source: GISSEL 5:03 AM [facility] REPOSITORY TYPE CODE TESTS RESULT OUT OF REFERENCE UNITS RANGE LAB L501.080 70-110 mg/dL High BEDSIDE GLU 163 Result Comment: MANAGEMENT OF PATIENT CARE PER NURSING PROTOCOL Performed By: #### L501.080 #### [facility] Point of Care [address] [place] [address] BASIC METABOLIC Collected: 07/31/2018 Status: F Source: GISSEL PROFILE (BMP) 4:55 AM [facility] REPOSITORY TYPE CODE TESTS RESULT OUT OF RANGE REFERENCE UNITS LAB L501.0100 74-106 mg/dL High GLU 164 Result Comment: Fasting Glucose result greater than or equal to 126 mg/dL suggests DIABETES MELLITUS per A.D.A. criteria. Please note revised GLUCOSE reference range effective 2017. LAB L501.1000 7-18 mg/dL High BUN 57 LAB L501.1100 0.55-1.02 mg/dL High CREAT,SERUM 1.29 Result Comment: The validity of the calculated GFR AND GFRAA in patients over 70 years has not been determined. Clinical correlation is essential. LAB L501.1110 >60 mL/min Low EST GFR 42 Result Comment: Non- GFR Calc LAB L501.1115 >60 mL/min Low EST GFR - AA 51 Result Comment: GFR Calc LAB L501.1255 ml/min Normal Estimated CRCL 32.02 LAB L501.1300 10-20 RATIO High BUN/CRE 44.2 LAB L501.2200 8.5-10 mg/dL Low .1 CA 7.5 LAB L501.5300 136-14 mmol/L Normal 5 NA 137 LAB L501.5600 3.5-5. mmol/L Low 1 K 3.4 LAB L501.5900 98-107 mmol/L Normal CL 106 LAB L501.6100 21.0-3 mmol/L Normal 2.0 CO2 21.0 LAB L501.6200 5-15 Normal GAP 10 Performed By: #### L500.2500, L501.5200 #### [facility] [address] [place], [address] MAGNESIUM Collected: 07/31/2018 Status: F Source: GISSEL 4:55 AM [facility] REPOSITORY TYPE CODE TESTS RESULT OUT OF RANGE REFERENCE UNITS LAB L501.5200 1.6-2.6 mg/dL Normal MG 2.1 Performed By: #### L500.2500, L501.5200 #### [facility] [address] [place], [address] CBC-COMPLETE BLOOD CNT Collected: 07/31/2018 Status: F Source: GISSEL NO DIFF 4:55 AM [facility] REPOSITORY TYPE CODE TESTS RESULT OUT OF RANGE REFERENCE UNITS LAB L100.1000 4.4-11.0 K/mm3 High WBC 15.4 LAB L100.1200 4.2-5.4 M/mm3 Low RBC 2.38 LAB L100.1300 12.0-15.0 g/dl Low HGB 7.7 LAB L100.1400 37-47 % Low HCT 22.8 LAB L100.1500 81-99 fL Normal MCV 95.8 LAB L100.1600 27.0-32.0 pg High MCH 32.4 LAB L100.1700 32-36 g/gl Normal MCHC 33.8 LAB L100.1810 11.6-14.6 % High RDW CV 16.0 LAB L100.1820 35.1-43.9 fl High RDW SD 52.2 LAB L100.1900 150-450 K/mm3 Normal PLT 281 LAB L100.2000 6.2-12.0 fl Normal MPV 11.1 Performed By: #### L100.0500 #### [facility] [address] [place], [address] BEDSIDE GLUCOSE Collected: 07/30/2018 Status: F Source: GISSEL 11:15 PM [facility] REPOSITORY TYPE CODE TESTS RESULT OUT OF REFERENCE UNITS RANGE LAB L501.080 70-110 mg/dL High BEDSIDE GLU 229 Result Comment: MANAGEMENT OF PATIENT CARE PER NURSING PROTOCOL Performed By: #### L501.080 #### [facility] Point of Care [address] [place] [address] BEDSIDE GLUCOSE Collected: 07/30/2018 Status: F Source: GISSEL 5:38 PM [facility] REPOSITORY TYPE CODE TESTS RESULT OUT OF REFERENCE UNITS RANGE LAB L501.080 70-110 mg/dL High BEDSIDE GLU 258 Result Comment: MANAGEMENT OF PATIENT CARE PER NURSING PROTOCOL Performed By: #### L501.080 #### [facility] Point of Care [address] [place] [address] BEDSIDE GLUCOSE Collected: 07/30/2018 Status: F Source: GISSEL 11:56 AM [facility] REPOSITORY TYPE CODE TESTS RESULT OUT OF REFERENCE UNITS RANGE LAB L501.080 70-110 mg/dL High BEDSIDE GLU 289 Result Comment: MANAGEMENT OF PATIENT CARE PER NURSING PROTOCOL Performed By: #### L501.080 #### [facility] Point [place] [address] CBC W/DIFF, AUTOMATED Collected: 07/30/2018 Status: F Source: GISSEL 6:00 AM [facility] REPOSITORY TYPE CODE TESTS RESULT OUT OF RANGE REFERENCE UNITS LAB L100.1000 4.4-11.0 K/mm3 High WBC 13.9 LAB L100.1200 4.2-5.4 M/mm3 Low RBC 2.58 LAB L100.1300 12.0-15.0 g/dl Low HGB 8.0 LAB L100.1400 37-47 % Low HCT 24.3 LAB L100.1500 81-99 fL Normal MCV 94.2 LAB L100.1600 27.0-32.0 pg Normal MCH 31.0 LAB L100.1700 32-36 g/gl Normal MCHC 32.9 LAB L100.1810 11.6-14.6 % High RDW CV 16.3 LAB L100.1820 35.1-43.9 fl High RDW SD 56.0 LAB L100.1900 150-450 K/mm3 Normal PLT 240 LAB L100.2000 6.2-12.0 fl Normal MPV 11.2 LAB L100.2100 47-70 % High NEUT% 81.0 LAB L100.2200 19-41 % Low LY% 8.9 LAB L100.2300 0-10 % Normal MONO% 6.8 LAB L100.2400 0-5 % Normal EO% 1.8 LAB L100.2500 0-1 % Normal BASO% 0.2 LAB L100.2550 0.0-0.9 % High IM GRAN % 1.300 Result Comment: IG% - Immature Granulocytes (promyelocytes, myelocytes and metamyelocytes) > 1% indicates that a LEFT SHIFT is Present. LAB L100.2620 2.0-7.7 X10 3/uL High Absolute Neut 11.2 LAB L100.2720 0.83-4.51 X10 3/ul Normal Absolute Lymph 1.24 Performed By: #### L100.0100 #### [facility] [address] [place], [place], [address] BASIC METABOLIC Collected: 07/30/2018 Status: F Source: GISSEL PROFILE (BMP) 6:00 AM [facility] REPOSITORY TYPE CODE TESTS RESULT OUT OF RANGE REFERENCE UNITS LAB L501.0100 74-106 mg/dL High GLU 235 Result Comment: Glucose result greater than or equal to 200 mg/dL suggests DIABETES MELLITUS per A.D.A. criteria. Please note revised GLUCOSE reference range effective 2017. LAB L501.1000 7-18 mg/dL High BUN 60 LAB L501.1100 0.55-1.02 mg/dL High CREAT,SERUM 1.42 Result Comment: The validity of the calculated GFR AND GFRAA in patients over 70 years has not been determined. Clinical correlation is essential. LAB L501.1110 >60 mL/min Low EST GFR 38 Result Comment: Non- GFR Calc LAB L501.1115 >60 mL/min Low EST GFR - AA 46 Result Comment: GFR Calc LAB L501.1255 ml/min Normal Estimated CRCL 29.09 LAB L501.1300 10-20 RATIO High BUN/CRE 42.3 LAB L501.2200 8.5-10 mg/dL Low .1 CA 7.5 LAB L501.5300 136-14 mmol/L Normal 5 NA 138 LAB L501.5600 3.5-5. mmol/L Normal 1 K 4.1 LAB L501.5900 98-107 mmol/L High CL 109 LAB L501.6100 21.0-3 mmol/L Normal 2.0 CO2 21.0 LAB L501.6200 5-15 Normal GAP 8 Performed By: #### L500.2500, L501.2300, L501.5200 #### [facility] [address] [place], [place], [address] PHOSPHORUS Collected: 07/30/2018 Status: F Source: GISSEL 6:00 AM [facility] REPOSITORY TYPE CODE TESTS RESULT OUT OF RANGE REFERENCE UNITS LAB L501.2300 2.5-4.9 mg/dL Low PHOS 1.9 Performed By: #### L500.2500, L501.2300, L501.5200 #### [facility] [address] [place], [address] MAGNESIUM Collected: 07/30/2018 Status: F Source: GISSEL 6:00 AM [facility] REPOSITORY TYPE CODE TESTS RESULT OUT OF RANGE REFERENCE UNITS LAB L501.5200 1.6-2.6 mg/dL Low MG 1.4 Performed By: #### L500.2500, L501.2300, L501.5200 #### [facility] [address] [place], [address] BEDSIDE GLUCOSE Collected: 07/30/2018 Status: F Source: GISSEL 5:37 AM [facility] REPOSITORY TYPE CODE TESTS RESULT OUT OF REFERENCE UNITS RANGE LAB L501.080 70-110 mg/dL High BEDSIDE GLU 260 Result Comment: MANAGEMENT OF PATIENT CARE PER NURSING PROTOCOL Performed By: #### L501.080 #### [facility] Point of Care [address] [place] [address] BEDSIDE GLUCOSE Collected: 07/30/2018 Status: F Source: GISSEL 12:25 AM [facility] REPOSITORY TYPE CODE TESTS RESULT OUT OF REFERENCE UNITS RANGE LAB L501.080 70-110 mg/dL High BEDSIDE GLU 278 Result Comment: MANAGEMENT OF PATIENT CARE PER NURSING PROTOCOL Performed By: #### L501.080 #### [facility] Point of Care [address] [place] [address] BEDSIDE GLUCOSE Collected: 07/29/2018 Status: F Source: GISSEL 6:24 PM [facility] REPOSITORY TYPE CODE TESTS RESULT OUT OF REFERENCE UNITS RANGE LAB L501.080 70-110 mg/dL High BEDSIDE GLU 198 Result Comment: MANAGEMENT OF PATIENT CARE PER NURSING PROTOCOL Performed By: #### L501.080 #### [facility] Point of Care [address] [place] [address] BEDSIDE GLUCOSE Collected: 07/29/2018 Status: F Source: GISSEL 12:07 PM [facility] REPOSITORY TYPE CODE TESTS RESULT OUT OF REFERENCE UNITS RANGE LAB L501.080 70-110 mg/dL High BEDSIDE GLU 153 Result Comment: MANAGEMENT OF PATIENT CARE PER NURSING PROTOCOL Performed By: #### L501.080 #### [facility] Point of Care [address] [place] [address] ABDOMEN SINGLE VIEW Observed: 07/29/2018 Status: F Source: GISSEL (PORTABLE) 8:42 AM [facility] REPOSITORY [facility] Imaging Services [address] [place] [address] Abdomen Single View (Portable) MR#: [id number] Acct: [id number] Name: JIMENEZ WYNN Rep #: [id number] : 1935 F 82 From: Jourdan De La Fuente MD PCP: Clement Bueno MD Status: ADM IN Study: Abdomen Single View (Portable) Date of Exam: 07/29/18 Exam# [id number] Ordering Dr: Aurora Young MD STUDY: X-RAY - ABDOMEN/PELVIS REASON FOR EXAM: Female, 82 years old. Nasogastric tube placement. TECHNIQUE: Single AP view of the abdomen / pelvis. COMPARISON: Comparison is made with prior study dated July 26, 2018. FINDINGS: An orogastric tube is seen. The tip is in the body of the stomach. There is an unremarkable bowel gas pattern. Bilateral hip replacement. RAD/Abdomen Single View (Portable) IMPRESSION: The tip of the orogastric tube is in the body of the stomach. Electronically Signed: Jourdan De La Fuente MD at 9:13 EDT Tel [phone], Service support , CC: Clement Bueno MD; Aurora Young MD Sales Manager: Signed BEDSIDE GLUCOSE Collected: 07/29/2018 Status: F Source: GISSEL 6:13 AM [facility] REPOSITORY TYPE CODE TESTS RESULT OUT OF REFERENCE UNITS RANGE LAB L501.080 70-110 mg/dL High BEDSIDE GLU 145 Result Comment: MANAGEMENT OF PATIENT CARE PER NURSING PROTOCOL Performed By: #### L501.080 #### [facility] Point of Care [address] [place] [address] BASIC METABOLIC Collected: 07/29/2018 Status: F Source: GISSEL PROFILE (BMP) 5:10 AM [facility] REPOSITORY Order Comment: SPECIMEN OBTAINED FROM LINE DRAW TYPE CODE TESTS RESULT OUT OF RANGE REFERENCE UNITS LAB L501.0100 74-106 mg/dL High GLU 138 Result Comment: Fasting Glucose result greater than or equal to 126 mg/dL suggests DIABETES MELLITUS per A.D.A. criteria. Please note revised GLUCOSE reference range effective 2017. LAB L501.1000 7-18 mg/dL High BUN 67 LAB L501.1100 0.55-1.02 mg/dL High CREAT,SERUM 1.62 Result Comment: The validity of the calculated GFR AND GFRAA in patients over 70 years has not been determined. Clinical correlation is essential. LAB L501.1110 >60 mL/min Low EST GFR 32 Result Comment: Non- GFR Calc LAB L501.1115 >60 mL/min Low EST GFR - AA 39 Result Comment: GFR Calc LAB L501.1255 ml/min Normal Estimated CRCL 25.50 LAB L501.1300 10-20 RATIO High BUN/CRE 41.4 LAB L501.2200 8.5-10 mg/dL Low .1 CA 8.0 LAB L501.5300 136-14 mmol/L Normal 5 NA 138 LAB L501.5600 3.5-5. mmol/L Normal 1 K 5.1 LAB L501.5900 98-107 mmol/L High CL 110 LAB L501.6100 21.0-3 mmol/L Low 2.0 CO2 20.0 LAB L501.6200 5-15 Normal GAP 8 Performed By: #### L500.2500 #### [facility] [address] [place], [address] CBC W/DIFF, AUTOMATED Collected: 07/29/2018 Status: F Source: GISSEL 5:10 AM [facility] REPOSITORY Order Comment: SPECIMEN OBTAINED FROM LINE DRAW TYPE CODE TESTS RESULT OUT OF RANGE REFERENCE UNITS LAB L100.1000 4.4-11.0 K/mm3 High WBC 16.1 LAB L100.1200 4.2-5.4 M/mm3 Low RBC 2.73 LAB L100.1300 12.0-15.0 g/dl Low HGB 8.6 LAB L100.1400 37-47 % Low HCT 25.8 LAB L100.1500 81-99 fL Normal MCV 94.5 LAB L100.1600 27.0-32.0 pg Normal MCH 31.5 LAB L100.1700 32-36 g/gl Normal MCHC 33.3 LAB L100.1810 11.6-14.6 % High RDW CV 16.4 LAB L100.1820 35.1-43.9 fl High RDW SD 54.9 LAB L100.1900 150-450 K/mm3 Normal PLT 221 LAB L100.2000 6.2-12.0 fl Normal MPV 11.5 LAB L100.2100 47-70 % High NEUT% 83.1 LAB L100.2200 19-41 % Low LY% 10.4 LAB L100.2300 0-10 % Normal MONO% 3.0 LAB L100.2400 0-5 % Normal EO% 2.2 LAB L100.2500 0-1 % Normal BASO% 0.2 LAB L100.2550 0.0-0.9 % High IM GRAN % 1.100 Result Comment: IG% - Immature Granulocytes (promyelocytes, myelocytes and metamyelocytes) > 1% indicates that a LEFT SHIFT is Present. LAB L100.2620 2.0-7.7 X10 3/uL High Absolute Neut 13.3 LAB L100.2720 0.83-4.51 X10 3/ul Normal Absolute Lymph 1.67 LAB L100.4500 Normal SMEAR COMMENT SCANNED LAB L100.4800 Normal TOXIC GRAN 1+ Performed By: #### L100.0100 #### [facility] [address] [place], [address] BEDSIDE GLUCOSE Collected: 07/28/2018 Status: F Source: GISSEL 11:51 PM [facility] REPOSITORY TYPE CODE TESTS RESULT OUT OF RANGE REFERENCE UNITS LAB L501.080 70-110 mg/dL Normal BEDSIDE GLU 106 Result Comment: MANAGEMENT OF PATIENT CARE PER NURSING PROTOCOL Performed By: #### L501.080 #### [facility] Point of Care [address] [place] [address] BEDSIDE GLUCOSE Collected: 07/28/2018 Status: F Source: [place] 5:26 PM [facility] REPOSITORY TYPE CODE TESTS RESULT OUT OF RANGE REFERENCE UNITS LAB L501.080 70-110 mg/dL Normal BEDSIDE GLU 109 Result Comment: MANAGEMENT OF PATIENT CARE PER NURSING PROTOCOL Performed By: #### L501.080 #### [facility] Point of Care [address] [place] [address] BEDSIDE GLUCOSE Collected: 07/28/2018 Status: F Source: [place] 12:19 PM [facility] REPOSITORY TYPE CODE TESTS RESULT OUT OF RANGE REFERENCE UNITS LAB L501.080 70-110 mg/dL Normal BEDSIDE GLU 107 Result Comment: MANAGEMENT OF PATIENT CARE PER NURSING PROTOCOL Performed By: #### L501.080 #### [facility] Point of Care [address] [place] [address] CONSULTATION Observed: 07/28/2018 Status: F Source: [place] 12:08 PM [facility] Medical Records Department [address] [place] [address] Consultation 07/28/18 1157 MR#: [id number] Acct: [id number] Name: JIMENEZ WYNN Rep #: [id number] : 1935 82 From: Lokesh Pulliam MD PCP: Clement Bueno MD Status: ADM IN Y Location: [place] [address] Problem List (1) Large bowel perforation Status: Acute Reason for Consult: leukocytosis Consulted by: Dr. Lewis History of Present Illness: The patient is a 82 year old F with presentation 07/20 with sudden onset severe abd pain, found to have bowel perf, taken to OR that day, large amount of stool removed from abd. Ostomy placed. bcx with Clostridium. Initially on clinda/aztreonam, changed to unasyn. Was in icu with septic shock. Now out of icu, line still in place in MA[facility], feeling ok, starting some po intake, no fever, no abd pain, mild nausea. Wbc up for past 2 days. Unasyn changed to zosyn on 07/27. Daughter at bedside. Denies any cough or SOB. Full ROS performed and neg except as noted above. 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 Hypothyroidism (Chronic) COPD (chronic obstructive pulmonary disease) (Chronic) Hyperlipidemia (Chronic) Type 2 diabetes mellitus (Chronic) Allergies/Adverse Reactions: Allergies codeine Allergy (Severe, Verified 07/20/18 08:52) HEART ATTACK levofloxacin [From Levaquin] Allergy (Severe, Verified 07/20/18 08:52) Anaphylaxis Sulfa (Sulfonamide Antibiotics) Allergy (Unknown, Verified 07/20/18 08:52) Unknown adhesive tape Allergy (Verified 07/20/18 08:52) Other citalopram Allergy (Verified 07/20/18 08:52) Unknown Latex, Natural Rubber Allergy (Verified 07/20/18 08:52) Rash Penicillins Allergy (Verified 07/20/18 08:52) Rash acetaminophen [From Vicodin] Adverse Reaction (Verified 07/20/18 08:52) Chest tightness hydrocodone bitartrate [From Vicodin] Adverse Reaction (Verified 07/20/18 08:52) Chest tightness Home Medications: Ambulatory Orders Medication Instructions Recorded - Social History SMOKING STATUS:: Never smoker Vital Signs Temp Pulse Resp BP Pulse Ox 97.8 F 85 19 H 117/74 94 07/28/18 11:24 07/28/18 11:24 07/28/18 11:24 07/28/18 11:24 07/28/18 11:24 Oxygen Flow Rate (L/min) 2 Oxygen Delivery Method Room Air Weight: 87.5 kg Body Mass Index (BMI) 29.2 Microbiology Past 72 Hours 07/20/18 12:10 Gram Stain - Final Wound Drainage - Other Wound Culture - Final Laboratory Tests Past 24 Hrs WBC 15.2 H RBC 2.82 L Hgb 8.8 L Hct 26.1 L MCV 92.6 - Other Studies Radiology: [] reviewed Other Studies: [] Route of nutrition/ use of supplements: [] Nutritional Intake: [] IV Site: [] Benitez Catheter: [] - Physical Exam General: Alert, Cooperative, No apparent distress HEENT: Atraumatic, PERRLA, EOMI Neck: Supple, No Nodes Lungs: Diminished, Rhonchi - scattered Cardiovascular: Regular rate, Regular Rhythm Abdomen: Soft, Non Tender, Non-Distended, - - ostomy and incision with yuriy, no redness Extremities: Edema IV Site: Central Line, without redness Musculoskeletal: No Tenderness to Palpation of Joints or Extremities Neurological: Cranial nerves II-XII grossly intact - Assessment/Plan Antibiotics: [] Assessment/Plan: [] Active and Suspected Problems (Last Reviewed 03/01/18 @ 13:10 by Victoria Fu) Large bowel perforation (Acute) Septic shock (Acute) Septic shock improved. New leukocytosis. Overall no new complaints, but some lung changes on exam and xray. Single bcx with clostridium and prior surg cx with ecoli, Acinetobacter, and multiple anaerobes. Spoke with micro lab, and they do not have unasyn sensitivity testing on the acinetobacter; they will perform unasyn and tetracycline testing. Zosyn does not have acinetobacter activity. 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 Repeat CT abd/pelvis pending. Surg incision appears to be doing well. Will follow, thank you. 07/28/18 1208 <Electronically signed by Lokesh Pulliam MD> Date Lokesh Pulliam MD Cosigner Signature (if applicable): Date CC: Juan Jose Lemon MD; Clement Bueno MD; Charly Ross MD; Lokesh Pulliam MD; Aurora Young MD Signed Observed: 07/28/2018 Status: F Source: GISSEL CULTURE, BLOOD (WB) 12:00 PM [facility] REPOSITORY UTO X 6 3 PHLEBS TRIED Has pt arrived? Y BC No growth in 5 days. Performed By: #### M200.1000 #### [facility] [address] [place], [address] 12 LEAD ELECTROCARDIOGRAM Observed: 07/28/2018 Status: F Source: GISSEL 9:39 AM [facility] REPOSITORY [facility] Cardiovascular Services [address] [place] [address] 12 Lead EKG 07/21/181921 MR#: [id number] Acct: [id number] Name: JIMENEZ WYNN Rep #: [id number] : 1935 82 From: Markus Cueto MD Attending Dr: Arnaud Lewis MD Status: ADM IN Ordering Dr: Eriberto Huang MD Date: 07/21/18 Location: [facility] Sex: F C Admitted: 07/20/18 Test Reason : Blood Pressure : / mmHG Vent. Rate : 211 BPM Atrial Rate : 214 BPM P-R Int : 000 ms QRS Dur : 108 ms QT Int : 230 ms P-R-T Axes : 000 010 188 degrees QTc Int : 431 ms Supraventricular tachycardia Low voltage QRS Marked ST abnormality, possible inferior subendocardial injury Abnormal ECG When compared with ECG of 20-JUL-2018 08:04, Significant changes have occurred Confirmed by NORY MERCER, MARKUS ([id number]), video tape editor SADIQ BUENO ([id number]) on 07/28/2018 9:38:36 AM Referred By: Confirmed By:MARKUS CUETO MD 07/28/18 0938 Date Markus Cueto MD CC: Arnaud Lewis MD; Clement Bueno MD; Eriberto Huang MD Signed 12 LEAD ELECTROCARDIOGRAM Observed: 07/28/2018 Status: F Source: GISSEL 9:38 AM [facility] REPOSITORY [facility] Cardiovascular Services [address] [place] [address] 12 Lead EKG 07/22/18 0328 MR#: [id number] Acct: [id number] Name: JIMENEZ WYNN Rep #: [id number] : 1935 82 From: Markus Cueto MD Attending Dr: Arnaud Lewis MD Status: ADM IN Ordering Dr: Adrien Ford MD Date: 07/22/18 Location: U Sex: F C Admitted: 07/20/18 Test Reason : SVT Blood Pressure : / mmHG Vent. Rate : 084 BPM Atrial Rate : 084 BPM P-R Int : 138 ms QRS Dur : 090 ms QT Int : 360 ms P-R-T Axes : 018 -27 051 degrees QTc Int : 425 ms Sinus rhythm with Premature atrial complexes Low voltage QRS Borderline ECG When compared with ECG of 22-JUL-2018 03:18, MANUAL COMPARISON REQUIRED, DATA IS UNCONFIRMED Confirmed by NORY MERCER, MARKUS ([id number]), video tape editor SADIQ BUENO ([id number]) on 07/28/2018 9:37:46 AM Referred By: AILEEN Confirmed By:MARKUS CUETO MD 07/28/18 0937 Date Markus Cueto MD CC: Arnaud Lewis MD; Clement Bueno MD; Adrien Ford MD Signed 12 LEAD ELECTROCARDIOGRAM Observed: 07/28/2018 Status: F Source: [place] 9:38 AM [facility] Cardiovascular Services [address] [place] [address] 12 Lead EKG 07/22/18 0318 MR#: [id number] Acct: [id number] Name: JIMENEZ WYNN Rep #: [id number] : 1935 82 From: Markus Cueto MD Attending Dr: Arnaud Lewis MD Status: ADM IN Ordering Dr: Adrien Ford MD Date: 07/22/18 Location: U Sex: F C Admitted: 07/20/18 Test Reason : SVT Blood Pressure : / mmHG Vent. Rate : 165 BPM Atrial Rate : 159 BPM P-R Int : 000 ms QRS Dur : 096 ms QT Int : 294 ms P-R-T Axes : 000 -37 156 degrees QTc Int : 487 ms Supraventricular tachycardia Left axis deviation Low voltage QRS Inferior infarct , age undetermined Abnormal ECG No previous ECGs available Confirmed by MARKUS CUETO MD ([id number]), SADIQ Dominguez ([id number]) on 07/28/2018 9:38:06 AM Referred By: AILEEN Confirmed By:MARKUS CUETO MD 07/28/18937 Date Markus Cueto MD CC: Arnaud Lewis MD; Clement Bueno MD; Adrien Ford MD Signed 12 LEAD ELECTROCARDIOGRAM Observed: 07/28/2018 Status: F Source: [place] 9:38 AM [facility] REPOSITORY [facility] Cardiovascular Services [address] [place] [address] 12 Lead EKG 07/21/181925 MR#: [id number] Acct: [id number] Name: JIMENEZ WYNN Rep #: [id number] : 1935 82 From: Markus Cueto MD Attending Dr: Arnaud Lewis MD Status: ADM IN Ordering Dr: Eriberto Huang MD Date: 07/21/18 Location: [facility] Sex: F C Admitted: 07/20/18 Test Reason : Blood Pressure : / mmHG Vent. Rate : 126 BPM Atrial Rate : 126 BPM P-R Int : 144 ms QRS Dur : 092 ms QT Int : 282 ms P-R-T Axes : 006 -26 077 degrees QTc Int : 408 ms Sinus tachycardia with occasional Premature ventricular complexes Low voltage QRS Borderline ECG When compared with ECG of 21-JUL-2018 19:22, MANUAL COMPARISON REQUIRED, DATA IS UNCONFIRMED Confirmed by MARKUS CUETO MD ([id number]), video tape editor SADIQ BUENO (56) on 07/28/2018 9:38:22 AM Referred By: Confirmed By:MARKUS CUETO MD 07/28/18937 Date Markus Cueto MD CC: Arnaud Lewis MD; Clement Bueno MD; Eriberto Hunag MD Signed 12 LEAD ELECTROCARDIOGRAM Observed: 07/28/2018 Status: F Source: GISSEL 9:37 AM [facility] REPOSITORY [facility] Cardiovascular Services [address] [place] [address] 12 Lead EKG 07/22/18 0349 MR#: [id number] Acct: [id number] Name: JIMENEZ WYNN Rep #: [id number] : 1935 82 From: Markus Cueto MD Attending Dr: Arnaud Lewis MD Status: ADM IN Ordering Dr: Adrien Ford MD Date: 07/22/18 Location: [facility] Sex: F C Admitted: 07/20/18 Test Reason : SVT Blood Pressure : / mmHG Vent. Rate : 085 BPM Atrial Rate : 085 BPM P-R Int : 152 ms QRS Dur : 094 ms QT Int : 376 ms P-R-T Axes : 018 -25 043 degrees QTc Int : 447 ms Normal sinus rhythm Low voltage QRS Borderline ECG When compared with ECG of 22-JUL-2018 03:29, MANUAL COMPARISON REQUIRED, DATA IS UNCONFIRMED Confirmed by NORY MERCER, MARKUS ([id number]), video tape editor SADIQ BUENO (56) on 07/28/2018 9:36:49 AM Referred By: AILEEN Confirmed By:MARKUS CUETO MD 07/28/18 0936 Date Markus Cueto MD CC: Arnaud Lewis MD; Clement Bueno MD; Adrien Ford MD Signed 12 LEAD ELECTROCARDIOGRAM Observed: 07/28/2018 Status: F Source: GISSEL 9:37 AM [facility] REPOSITORY [facility] Cardiovascular Services [address] [place] [address] 12 Lead EKG 07/22/18 0329 MR#: [id number] Acct: [id number] Name: JIMENEZ WYNN Rep #: [id number] : 1935 82 From: Markus Cueto MD Attending Dr: Arnaud Lewis MD Status: ADM IN Ordering Dr: Adrien Ford MD Date: 07/22/18 Location: [facility] Sex: F C Admitted: 07/20/18 Test Reason : SVT Blood Pressure : / mmHG Vent. Rate : 140 BPM Atrial Rate : 280 BPM P-R Int : 000 ms QRS Dur : 086 ms QT Int : 274 ms P-R-T Axes : -37 -38 148 degrees QTc Int : 418 ms Atrial flutter with 2:1 block Left axis deviation Low voltage QRS Inferior infarct , age undetermined Abnormal ECG When compared with ECG of 22-JUL-2018 03:28, MANUAL COMPARISON REQUIRED, DATA IS UNCONFIRMED Confirmed by MARKUS CUETO MD ([id number]), video tape editor SADIQ BUENO (56) on 07/28/2018 9:37:23 AM Referred By: AILEEN Confirmed By:MARKUS CUETO MD 07/28/18 0937 Date Markus Cueto MD CC: Arnaud Lewis MD; Clement Bueno MD; Adrien Ford MD Signed ABDOMEN/PEL W ORAL CONT Observed: 07/28/2018 Status: F Source: GISSEL ONLY 7:36 AM [facility] REPOSITORY [facility] Imaging Services [address] [place] [address] Abdomen/Pel W ORAL Cont Only MR#: [id number] Acct: [id number] Name: JIMENEZ WYNN Rep #: [id number] : 1935 F 82 From: Jourdan De La Fuente MD PCP: Clement Bueno MD Status: ADM IN Study: Abdomen/Pel W ORAL Cont Only Date of Exam: 07/28/18 Exam# [id number] Ordering Dr: Aurora Young MD STUDY: CT ABDOMEN AND PELVIS WITHOUT CONTRAST REASON FOR EXAM: Female, 82 years old. Elevated white cell count. Recent sepsis from a colon perforation and peritonitis. RADIATION DOSAGE (If Supplied By Facility): CTDIvol = ( 14.72 ) mGy, DLP = ( 678.08 ) mGycm TECHNIQUE: Transaxial images were obtained from the dome of the diaphragm to the symphysis pubis with oral contrast, and without intravenous contrast. Sagittal and coronal images were reconstructed. Individualized dose optimization techniques were used for this CT. COMPARISON: Comparison is made with prior examination dated July 20, 2018. FINDINGS: Persistent right lower lobe infiltrate. Tiny pleural effusion. Mild degree of increased markings at the left lung base. The visualized portions of the heart are within normal limits. Normal liver. Tiny gallstones or sludge in the gallbladder lumen. There are multiple benign calcified granulomata of the spleen. There is diffuse atrophy of the pancreas. Normal bilateral adrenal glands. Normal right kidney. Stable 2.5 cm cyst in the left kidney. Normal visualized stomach. Minimally thickened small bowel loops in left midabdomen with a small amount of fluid surrounding these bowel loops. Fecal material is seen in the right hemicolon. Fluid is also seen within the right hemicolon. A transverse colostomy is seen in the left midabdomen just lateral to the umbilicus. Sigmoid diverticulosis. There is non-visualization of the appendix. There is diffuse atherosclerotic calcification of the abdominal aorta, without a demonstrated aneurysm. Normal inferior vena cava. Normal retroperitoneum. Mild increased markings in the root of the mesentery most likely secondary to the recent surgery. Normal urinary bladder. There is absence of the uterus consistent with a prior hysterectomy. Normal abdominal wall. There are diffuse degenerative changes of the visualized lumbar spine. Status post bilateral total hip replacement. CT/Abdomen/Pel W ORAL Cont Only IMPRESSION: Persistent infiltrate in the right lower lobe with a small pleural effusion. Sludge is seen within the gallbladder lumen and possible tiny gallstones. A colostomy is seen in the left mid abdomen. Increased markings in the mesentery most likely secondary to prior surgery. Thickened small bowel loops in the left mid abdomen with surrounding increased markings in the peritoneal fat. There is no evidence of free air at this time. Electronically Signed: Jourdan De La Fuente MD at 13:30 EDT Tel [phone], Service support , CC: Clement Bueno MD; Aurora Young MD Sales Manager: Signed BEDSIDE GLUCOSE Collected: 07/28/2018 Status: F Source: [place] 6:12 AM [facility] REPOSITORY TYPE CODE TESTS RESULT OUT OF REFERENCE UNITS RANGE LAB L501.080 70-110 mg/dL High BEDSIDE GLU 111 Result Comment: MANAGEMENT OF PATIENT CARE PER NURSING PROTOCOL Performed By: #### L501.080 #### [facility] Point of Care [address] [place], [place] [id number] BASIC METABOLIC Collected: 07/28/2018 Status: F Source: [place]IS[place] PROFILE (BMP) 4:25 AM [facility] REPOSITORY TYPE CODE TESTS RESULT OUT OF RANGE REFERENCE UNITS LAB L501.0100 74-106 mg/dL High GLU 118 Result Comment: Fasting Glucose result from 100 to 125 mg/dL suggests IMPAIRED HOMEOSTASIS per A.D.A. criteria. Please note revised GLUCOSE reference range effective 2017. LAB L501.1000 7-18 mg/dL High BUN 62 LAB L501.1100 0.55-1.02 mg/dL High CREAT,SERUM 1.51 Result Comment: The validity of the calculated GFR AND GFRAA in patients over 70 years has not been determined. Clinical correlation is essential. LAB L501.1110 >60 mL/min Low EST GFR 35 Result Comment: Non- GFR Calc LAB L501.1115 >60 mL/min Low EST GFR - AA 43 Result Comment: GFR Calc LAB L501.1255 ml/min Normal Estimated CRCL 27.35 LAB L501.1300 10-20 RATIO High BUN/CRE 41.1 LAB L501.2200 8.5-10 mg/dL Low .1 CA 7.8 LAB L501.5300 136-14 mmol/L Normal 5 NA 140 LAB L501.5600 3.5-5. mmol/L Normal 1 K 4.5 LAB L501.5900 98-107 mmol/L High CL 110 LAB L501.6100 21.0-3 mmol/L Normal 2.0 CO2 23.0 LAB L501.6200 5-15 Normal GAP 7 Performed By: #### L500.2500 #### [facility] [address] [place], [place], [address] CBC W/DIFF, AUTOMATED Collected: 07/28/2018 Status: F Source: [place] 4:25 AM [facility] REPOSITORY TYPE CODE TESTS RESULT OUT OF RANGE REFERENCE UNITS LAB L100.1000 4.4-11.0 K/mm3 High WBC 15.2 LAB L100.1200 4.2-5.4 M/mm3 Low RBC 2.82 LAB L100.1300 12.0-15.0 g/dl Low HGB 8.8 LAB L100.1400 37-47 % Low HCT 26.1 LAB L100.1500 81-99 fL Normal MCV 92.6 LAB L100.1600 27.0-32.0 pg Normal MCH 31.2 LAB L100.1700 32-36 g/gl Normal MCHC 33.7 LAB L100.1810 11.6-14.6 % High RDW CV 15.8 LAB L100.1820 35.1-43.9 fl High RDW SD 53.4 LAB L100.1900 150-450 K/mm3 Normal PLT 206 LAB L100.2000 6.2-12.0 fl Normal MPV 11.3 LAB L100.2100 47-70 % High NEUT% 79.9 LAB L100.2200 19-41 % Low LY% 6.4 LAB L100.2300 0-10 % Normal MONO% 9.6 LAB L100.2400 0-5 % Normal EO% 2.4 LAB L100.2500 0-1 % Normal BASO% 0.2 LAB L100.2550 0.0-0.9 % High IM GRAN % 1.500 Result Comment: IG% - Immature Granulocytes (promyelocytes, myelocytes and metamyelocytes) > 1% indicates that a LEFT SHIFT is Present. LAB L100.2620 2.0-7.7 X10 3/uL High Absolute Neut 12.1 LAB L100.2720 0.83-4.51 X10 3/ul Normal Absolute Lymph 0.97 LAB L100.4500 Normal SMEAR COMMENT SCANNED Performed By: #### L100.0100 #### [facility] [address] [place], [address] BEDSIDE GLUCOSE Collected: 07/27/2018 Status: F Source: [place] 11:49 PM [facility] REPOSITORY TYPE CODE TESTS RESULT OUT OF REFERENCE UNITS RANGE LAB L501.080 70-110 mg/dL High BEDSIDE GLU 229 Result Comment: MANAGEMENT OF PATIENT CARE PER NURSING PROTOCOL Performed By: #### L501.080 #### [facility] Point of Care [address] [place] [address] BEDSIDE GLUCOSE Collected: 07/27/2018 Status: F Source: GISSEL 5:37 PM [facility] REPOSITORY TYPE CODE TESTS RESULT OUT OF REFERENCE UNITS RANGE LAB L501.080 70-110 mg/dL High BEDSIDE GLU 330 Result Comment: MANAGEMENT OF PATIENT CARE PER NURSING PROTOCOL Performed By: #### L501.080 #### [facility] Point of Care [address] [place] [address] URINALYSIS, COMPLETE Collected: 07/27/2018 Status: F Source: GISSEL 11:30 AM [facility] REPOSITORY Order Comment: How was Urine Obtained? CATHETER SPECIMEN TYPE CODE TESTS RESULT OUT OF RANGE REFERENCE UNITS LAB L400.3000 Yellow COLOR Normal Yellow LAB L400.3050 Clear Normal CLARITY Clear LAB L400.3200 Normal mg/dl Normal GLUCOSE, UR Normal LAB L400.3300 Negative mg/dL Normal BILIRUBIN URINE Negative LAB L400.3400 Negative mg/dl Normal KETONE UR Negative LAB L400.3465 1.002-1.030 Normal SP.GR. DIPSTX 1.015 LAB L400.3550 5.0 - 8.0 pH UR Normal 6.0 LAB L400.3600 Negative mg/dl High PROT 30 DIPSTX LAB L400.3700 Normal mg/dl Normal UROBILI Normal LAB L400.3750 Negative Normal NITRITE UR Negative LAB L400.3780 Negative /ul High 25 OCCULT BLOOD-UR LAB L400.3800 Negative /ul High LEUK 25 ESTERASE LAB L400.4050 0-5 /hpf WBC Normal 0-5 SEEN LAB L400.4100 0-5 /hpf Normal RBC-UA 0-5 SEEN LAB L400.4150 5-10 /hpf SQUAM Normal EPI 0-5 SEEN LAB L400.4300 None Seen /hpf 1+ Normal BACTERIA LAB L400.4350 <or=2+ /hpf 1+ Normal MUCUS, URINE LAB L400.4400 0-5 /lpf Normal HYALINE CAST 0-5 SEEN Performed By: #### L400.0001 #### [facility] [address] [place], [address] BEDSIDE GLUCOSE Collected: 07/27/2018 Status: F Source: FIREBAUGH 9:55 AM [facility] REPOSITORY TYPE CODE TESTS RESULT OUT OF REFERENCE UNITS RANGE LAB L501.080 70-110 mg/dL High BEDSIDE GLU 140 Result Comment: MANAGEMENT OF PATIENT CARE PER NURSING PROTOCOL Performed By: #### L501.080 #### [facility] Point of Care [address] [place] [address] CHEST 1 VIEW Observed: 07/27/2018 Status: F Source: FIREBAUGH 9:11 AM [facility] REPOSITORY [facility] Imaging Services [address] [facility] [place] [address] Chest 1 View MR#: [id number] Acct: [id number] Name: JIMENEZ WYNN Rep #: [id number] : 1935 F 82 From: Jourdan De La Fuente MD PCP: Clement Bueno MD Status: ADM IN Study: Chest 1 View Date of Exam: 07/27/18 Exam# [id number] Ordering Dr: Aurora Young MD STUDY: X-RAY CHEST REASON FOR EXAM: Female, 82 years old. Leukocytosis. TECHNIQUE: Single AP portable view of the chest. COMPARISON: Comparison is made with prior study dated July 20, 2018. FINDINGS: A right-sided internal jugular venous catheter is seen with the tip in the right atrium. EKG electrodes are seen. The endotracheal tube has been removed. There now is evidence of atelectasis and/or infiltrate in the right lung base. Mild increased markings are seen in the left upper lobe. There is no demonstrated pleural abnormality. There is borderline cardiomegaly. Normal mediastinum and aruna. Normal visualized pulmonary arteries. There is atherosclerotic calcification of the aortic arch with tortuosity. There are diffuse degenerative changes of the visualized thoracic spine. There is degenerative osteoarthritis of the bilateral shoulders. There is no demonstrated abnormality of the visualized soft tissue structures of the upper abdomen. RAD/Chest 1 View IMPRESSION: Progressive increased markings at the right lung base. The endotracheal tube has been removed. Electronically Signed: Jourdan De La Fuente MD at 13:11 EDT Tel [phone], Service support , CC: Clement Bueno MD; Aurora Young MD Sales Manager: Signed CBC W/DIFF, AUTOMATED Collected: 07/27/2018 Status: F Source: FIREBAUGH 8:20 AM [facility] REPOSITORY TYPE CODE TESTS RESULT OUT OF RANGE REFERENCE UNITS LAB L100.1000 4.4-11.0 K/mm3 High WBC 13.0 LAB L100.1200 4.2-5.4 M/mm3 Low RBC 2.93 LAB L100.1300 12.0-15.0 g/dl Low HGB 9.1 LAB L100.1400 37-47 % Low HCT 27.2 LAB L100.1500 81-99 fL Normal MCV 92.8 LAB L100.1600 27.0-32.0 pg Normal MCH 31.1 LAB L100.1700 32-36 g/gl Normal MCHC 33.5 LAB L100.1810 11.6-14.6 % High RDW CV 15.8 LAB L100.1820 35.1-43.9 fl High RDW SD 53.5 LAB L100.1900 150-450 K/mm3 Normal PLT 178 LAB L100.2000 6.2-12.0 fl Normal MPV 11.0 LAB L100.2100 47-70 % High NEUT% 78.4 LAB L100.2200 19-41 % Low LY% 7.3 LAB L100.2300 0-10 % Normal MONO% 8.8 LAB L100.2400 0-5 % Normal EO% 3.8 LAB L100.2500 0-1 % Normal BASO% 0.4 LAB L100.2550 0.0-0.9 % High IM GRAN % 1.300 Result Comment: IG% - Immature Granulocytes (promyelocytes, myelocytes and metamyelocytes) > 1% indicates that a LEFT SHIFT is Present. LAB L100.2620 2.0-7.7 X10 3/uL High Absolute Neut 10.2 LAB L100.2720 0.83-4.51 X10 3/ul Normal Absolute Lymph 0.95 LAB L100.4500 Normal SMEAR COMMENT COMMENT Result Comment: SLIDE SCANNED - RARE ATYPICAL LYMPHS. Performed By: #### L100.0100, L100.4425 #### [facility] [address] [place], [place], [address] NRBC PANEL Collected: 07/27/2018 Status: F Source: FIREBAUGH 8:20 AM [facility] REPOSITORY TYPE CODE TESTS RESULT OUT OF RANGE REFERENCE UNITS LAB L100.4450 0-5 % Normal NRBC, FLAGGED 0.1 LAB L100.4455 0-5 10 3/uL Normal NRBC # 0.02 Performed By: #### L100.0100, L100.4425 #### [facility] [address] [place], [place], [address] BASIC METABOLIC Collected: 07/27/2018 Status: F Source: FIREBAUGH PROFILE (BMP) 6:35 AM [facility] REPOSITORY Order Comment: SPECIMEN OBTAINED FROM LINE DRAW TYPE CODE TESTS RESULT OUT OF RANGE REFERENCE UNITS LAB L501.0100 74-106 mg/dL High GLU 167 Result Comment: Fasting Glucose result greater than or equal to 126 mg/dL suggests DIABETES MELLITUS per A.D.A. criteria. Please note revised GLUCOSE reference range effective 2017. LAB L501.1000 7-18 mg/dL High BUN 48 LAB L501.1100 0.55-1.02 mg/dL High CREAT,SERUM 1.29 Result Comment: The validity of the calculated GFR AND GFRAA in patients over 70 years has not been determined. Clinical correlation is essential. LAB L501.1110 >60 mL/min Low EST GFR 42 Result Comment: Non- GFR Calc LAB L501.1115 >60 mL/min Low EST GFR - AA 51 Result Comment: GFR Calc LAB L501.1255 ml/min Normal Estimated CRCL 32.02 LAB L501.1300 10-20 RATIO High BUN/CRE 37.2 LAB L501.2200 8.5-10 mg/dL Low .1 CA 7.8 LAB L501.5300 136-14 mmol/L Normal 5 NA 143 LAB L501.5600 3.5-5. mmol/L Low 1 K 3.3 LAB L501.5900 98-107 mmol/L High CL 109 LAB L501.6100 21.0-3 mmol/L Normal 2.0 CO2 25.0 LAB L501.6200 5-15 Normal GAP 9 Performed By: #### L500.2500 #### [facility] [address] [place], [address] BEDSIDE GLUCOSE Collected: 07/27/2018 Status: F Source: GISSEL 6:00 AM [facility] REPOSITORY TYPE CODE TESTS RESULT OUT OF REFERENCE UNITS RANGE LAB L501.080 70-110 mg/dL High BEDSIDE GLU 166 Result Comment: MANAGEMENT OF PATIENT CARE PER NURSING PROTOCOL Performed By: #### L501.080 #### [facility] Point of Care [address] [place] [address] BEDSIDE GLUCOSE Collected: 07/27/2018 Status: F Source: GISSEL 2:20 AM [facility] REPOSITORY TYPE CODE TESTS RESULT OUT OF REFERENCE UNITS RANGE LAB L501.080 70-110 mg/dL High BEDSIDE GLU 282 Result Comment: MANAGEMENT OF PATIENT CARE PER NURSING PROTOCOL Performed By: #### L501.080 #### [facility] Point of Care [address] [place] [address] BEDSIDE GLUCOSE Collected: 07/26/2018 Status: F Source: GISSEL 9:42 PM [facility] REPOSITORY TYPE CODE TESTS RESULT OUT OF REFERENCE UNITS RANGE LAB L501.080 70-110 mg/dL High BEDSIDE GLU 161 Result Comment: MANAGEMENT OF PATIENT CARE PER NURSING PROTOCOL Performed By: #### L501.080 #### [facility] Point of Care [address] [place] [address] BEDSIDE GLUCOSE Collected: 07/26/2018 Status: F Source: GISSEL 6:21 PM [facility] REPOSITORY TYPE CODE TESTS RESULT OUT OF REFERENCE UNITS RANGE LAB L501.080 70-110 mg/dL High BEDSIDE GLU 215 Result Comment: MANAGEMENT OF PATIENT CARE PER NURSING PROTOCOL Performed By: #### L501.080 #### [facility] Point of Care [address] [place] [address] BEDSIDE GLUCOSE Collected: 07/26/2018 Status: F Source: GISSEL 2:17 PM [facility] REPOSITORY TYPE CODE TESTS RESULT OUT OF REFERENCE UNITS RANGE LAB L501.080 70-110 mg/dL High BEDSIDE GLU 307 Result Comment: MANAGEMENT OF PATIENT CARE PER NURSING PROTOCOL Performed By: #### L501.080 #### [facility] Point of Care [address] [place] [address] BEDSIDE GLUCOSE Collected: 07/26/2018 Status: F Source: GISSEL 10:17 AM [facility] REPOSITORY TYPE CODE TESTS RESULT OUT OF REFERENCE UNITS RANGE LAB L501.080 70-110 mg/dL High BEDSIDE GLU 282 Result Comment: MANAGEMENT OF PATIENT CARE PER NURSING PROTOCOL Performed By: #### L501.080 #### [facility] Point of Care [address] [place] [address] ABDOMEN SINGLE VIEW Observed: 07/26/2018 Status: F Source: GISSEL (PORTABLE) 7:29 AM [facility] REPOSITORY [facility] Imaging Services [address] [place] [address] Abdomen Single View (Portable) MR#: [id number] Acct: [id number] Name: JIMENEZ WYNN Rep #: [id number] : 1935 F 82 From: Jourdan De La Fuente MD PCP: Clement Bueno MD Status: ADM IN Study: Abdomen Single View (Portable) Date of Exam: 07/26/18 Exam# [id number] Ordering Dr: Aurora Young MD STUDY: X-RAY - ABDOMEN/PELVIS REASON FOR EXAM: Female, 82 years old. Abdominal distention. TECHNIQUE: Two AP supine views of the abdomen and pelvis. COMPARISON: None. FINDINGS: Increased markings at the right lung base suggestive of atelectasis and/or infiltrate. There is a moderate amount of colonic fecal material. A colostomy is seen in the left lower quadrant. The visualized liver, spleen and kidneys are grossly normal in size and morphology. Normal soft tissue structures. There are diffuse degenerative changes of the visualized lumbar spine. Dextroscoliosis. Bilateral total hip replacement. RAD/Abdomen Single View (Portable) IMPRESSION: Moderate amount of fecal material is seen in the colon. A colostomy is seen in the left lower quadrant. Atelectasis and/or infiltrate in the right lower lobe. Electronically Signed: Jourdan De La Fuente MD at 11:10 EDT Tel [phone], Service support , CC: Clement Bueno MD; Aurora Young MD Sales Manager: Signed BEDSIDE GLUCOSE Collected: 07/26/2018 Status: F Source: GISSEL 5:59 AM [facility] REPOSITORY TYPE CODE TESTS RESULT OUT OF REFERENCE UNITS RANGE LAB L501.080 70-110 mg/dL High BEDSIDE GLU 332 Result Comment: MANAGEMENT OF PATIENT CARE PER NURSING PROTOCOL Performed By: #### L501.080 #### [facility] Point of Care [address] [place] [address]. [place] [address] BASIC METABOLIC Collected: 07/26/2018 Status: F Source: GISSEL PROFILE (BMP) 4:30 AM [facility] REPOSITORY TYPE CODE TESTS RESULT OUT OF RANGE REFERENCE UNITS LAB L501.0100 74-106 mg/dL High GLU 307 Result Comment: Glucose result greater than or equal to 200 mg/dL suggests DIABETES MELLITUS per A.D.A. criteria. Please note revised GLUCOSE reference range effective 2017. LAB L501.1000 7-18 mg/dL High BUN 46 LAB L501.1100 0.55-1.02 mg/dL High CREAT,SERUM 1.35 Result Comment: The validity of the calculated GFR AND GFRAA in patients over 70 years has not been determined. Clinical correlation is essential. LAB L501.1110 >60 mL/min Low EST GFR 40 Result Comment: Non- GFR Calc LAB L501.1115 >60 mL/min Low EST GFR - AA 48 Result Comment: GFR Calc LAB L501.1255 ml/min Normal Estimated CRCL 30.60 LAB L501.1300 10-20 RATIO High BUN/CRE 34.1 LAB L501.2200 8.5-10 mg/dL Low .1 CA 7.9 LAB L501.5300 136-14 mmol/L High 5 NA 147 LAB L501.5600 3.5-5. mmol/L Normal 1 K 3.5 LAB L501.5900 98-107 mmol/L High CL 110 LAB L501.6100 21.0-3 mmol/L Normal 2.0 CO2 29.0 LAB L501.6200 5-15 Normal GAP 8 Performed By: #### L500.2500, L501.2300, L501.5200 #### [facility] [address] [place], [address] PHOSPHORUS Collected: 07/26/2018 Status: F Source: FIREBAUGH 4:30 AM [facility] REPOSITORY TYPE CODE TESTS RESULT OUT OF RANGE REFERENCE UNITS LAB L501.2300 2.5-4.9 mg/dL Normal PHOS 3.4 Performed By: #### L500.2500, L501.2300, L501.5200 #### [facility] [address] [place], [address] MAGNESIUM Collected: 07/26/2018 Status: F Source: GISSEL 4:30 AM [facility] REPOSITORY TYPE CODE TESTS RESULT OUT OF RANGE REFERENCE UNITS LAB L501.5200 1.6-2.6 mg/dL Normal MG 2.0 Performed By: #### L500.2500, L501.2300, L501.5200 #### [facility] [address] [place], [address] BEDSIDE GLUCOSE Collected: 07/26/2018 Status: F Source: GISSEL 2:00 AM [facility] REPOSITORY TYPE CODE TESTS RESULT OUT OF REFERENCE UNITS RANGE LAB L501.080 70-110 mg/dL High BEDSIDE GLU 302 Result Comment: MANAGEMENT OF PATIENT CARE PER NURSING PROTOCOL Performed By: #### L501.080 #### [facility] Point of Care [address] [place] [address] BEDSIDE GLUCOSE Collected: 07/25/2018 Status: F Source: FIREBAUGH 9:12 PM [facility] REPOSITORY TYPE CODE TESTS RESULT OUT OF REFERENCE UNITS RANGE LAB L501.080 70-110 mg/dL High BEDSIDE GLU 263 Result Comment: MANAGEMENT OF PATIENT CARE PER NURSING PROTOCOL Performed By: #### L501.080 #### [facility] Point of Care [address] [place] [address] BEDSIDE GLUCOSE Collected: 07/25/2018 Status: F Source: FIREBAUGH 5:55 PM [facility] REPOSITORY TYPE CODE TESTS RESULT OUT OF REFERENCE UNITS RANGE LAB L501.080 70-110 mg/dL High BEDSIDE GLU 314 Result Comment: MANAGEMENT OF PATIENT CARE PER NURSING PROTOCOL Performed By: #### L501.080 #### [facility] Point of Care [address] [place] [address] BASIC METABOLIC Collected: 07/25/2018 Status: F Source: GISSEL PROFILE (BMP) 5:05 PM [facility] REPOSITORY TYPE CODE TESTS RESULT OUT OF RANGE REFERENCE UNITS LAB L501.0100 74-106 mg/dL High GLU 330 Result Comment: Glucose result greater than or equal to 200 mg/dL suggests DIABETES MELLITUS per A.D.A. criteria. Please note revised GLUCOSE reference range effective 2017. LAB L501.1000 7-18 mg/dL High BUN 42 LAB L501.1100 0.55-1.02 mg/dL High CREAT,SERUM 1.38 Result Comment: The validity of the calculated GFR AND GFRAA in patients over 70 years has not been determined. Clinical correlation is essential. LAB L501.1110 >60 mL/min Low EST GFR 39 Result Comment: Non- GFR Calc LAB L501.1115 >60 mL/min Low EST GFR - AA 47 Result Comment: GFR Calc LAB L501.1255 ml/min Normal Estimated CRCL 29.93 LAB L501.1300 10-20 RATIO High BUN/CRE 30.4 LAB L501.2200 8.5-10 mg/dL Low .1 CA 7.8 LAB L501.5300 136-14 mmol/L Normal 5 NA 144 LAB L501.5600 3.5-5. mmol/L Normal 1 K 4.4 LAB L501.5900 98-107 mmol/L High CL 112 LAB L501.6100 21.0-3 mmol/L Normal 2.0 CO2 25.0 LAB L501.6200 5-15 Normal GAP 7 Performed By: #### L500.2500 #### [facility] [address] [place], [address] BEDSIDE GLUCOSE Collected: 07/25/2018 Status: F Source: GISSEL 2:59 PM [facility] REPOSITORY TYPE CODE TESTS RESULT OUT OF REFERENCE UNITS RANGE LAB L501.080 70-110 mg/dL High BEDSIDE GLU 379 Result Comment: MANAGEMENT OF PATIENT CARE PER NURSING PROTOCOL Performed By: #### L501.080 #### [facility] Point of Care [address] [place] [address] BEDSIDE GLUCOSE Collected: 07/25/2018 Status: F Source: GISSEL 9:44 AM [facility] REPOSITORY TYPE CODE TESTS RESULT OUT OF REFERENCE UNITS RANGE LAB L501.080 70-110 mg/dL High BEDSIDE GLU 320 Result Comment: MANAGEMENT OF PATIENT CARE PER NURSING PROTOCOL Performed By: #### L501.080 #### [facility] Point of Care [address] [place] [address] BEDSIDE GLUCOSE Collected: 07/25/2018 Status: F Source: GISSEL 7:58 AM [facility] REPOSITORY TYPE CODE TESTS RESULT OUT OF REFERENCE UNITS RANGE LAB L501.080 70-110 mg/dL High BEDSIDE GLU 329 Result Comment: MANAGEMENT OF PATIENT CARE PER NURSING PROTOCOL Performed By: #### L501.080 #### [facility] Point of Care [address] [place] [address] BEDSIDE GLUCOSE Collected: 07/25/2018 Status: F Source: GISSEL 6:11 AM [facility] REPOSITORY TYPE CODE TESTS RESULT OUT OF REFERENCE UNITS RANGE LAB L501.080 70-110 mg/dL High BEDSIDE GLU 336 Result Comment: MANAGEMENT OF PATIENT CARE PER NURSING PROTOCOL Performed By: #### L501.080 #### [facility] Point of Care [address] [place] [address] BASIC METABOLIC Collected: 07/25/2018 Status: F Source: FIREBAUGH PROFILE (BMP) 4:23 AM [facility] REPOSITORY TYPE CODE TESTS RESULT OUT OF RANGE REFERENCE UNITS LAB L501.0100 74-106 mg/dL High GLU 375 Result Comment: Glucose result greater than or equal to 200 mg/dL suggests DIABETES MELLITUS per A.D.A. criteria. Please note revised GLUCOSE reference range effective 2017. LAB L501.1000 7-18 mg/dL High BUN 44 LAB L501.1100 0.55-1.02 mg/dL High CREAT,SERUM 1.65 Result Comment: The validity of the calculated GFR AND GFRAA in patients over 70 years has not been determined. Clinical correlation is essential. LAB L501.1110 >60 mL/min Low EST GFR 32 Result Comment: Non- GFR Calc LAB L501.1115 >60 mL/min Low EST GFR - AA 38 Result Comment: GFR Calc LAB L501.1255 ml/min Normal Estimated CRCL 25.03 LAB L501.1300 10-20 RATIO High BUN/CRE 26.7 LAB L501.2200 8.5-10 mg/dL Low .1 CA 8.3 LAB L501.5300 136-14 mmol/L Normal 5 NA 145 LAB L501.5600 3.5-5. mmol/L Low 1 K alert 2.7 Result Comment: Critical Result(s) Called at: 05:05:03 07/25/2018 by: DOUGLAS BRADFORD to Leann [facility] LAB L501.5900 98-107 mmol/L High CL 108 LAB L501.6100 21.0-32.0 mmol/L Normal CO2 28.0 LAB L501.6200 5-15 Normal 9 GAP Performed By: #### L500.2500 #### [facility] [address] [place], [address] CBC W/DIFF, AUTOMATED Collected: 07/25/2018 Status: F Source: FIREBAUGH 4:23 AM [facility] REPOSITORY TYPE CODE TESTS RESULT OUT OF RANGE REFERENCE UNITS LAB L100.1000 4.4-11.0 K/mm3 Normal WBC 4.9 LAB L100.1200 4.2-5.4 M/mm3 Low RBC 2.79 LAB L100.1300 12.0-15.0 g/dl Low HGB 9.0 LAB L100.1400 37-47 % Low HCT 25.9 LAB L100.1500 81-99 fL Normal MCV 92.8 LAB L100.1600 27.0-32.0 pg High MCH 32.3 LAB L100.1700 32-36 g/gl Normal MCHC 34.7 LAB L100.1810 11.6-14.6 % High RDW CV 14.8 LAB L100.1820 35.1-43.9 fl High RDW SD 48.2 LAB L100.1900 150-450 K/mm3 Low PLT 124 LAB L100.2000 6.2-12.0 fl Normal MPV 9.8 LAB L100.2100 47-70 % High NEUT% 82.0 LAB L100.2200 19-41 % Low LY% 7.7 LAB L100.2300 0-10 % Normal MONO% 7.7 LAB L100.2400 0-5 % Normal EO% 1.6 LAB L100.2500 0-1 % Normal BASO% 0.2 LAB L100.2550 0.0-0.9 % Normal IM GRAN % 0.800 Result Comment: IG% - Immature Granulocytes (promyelocytes, myelocytes and metamyelocytes) > 1% indicates that a LEFT SHIFT is Present. LAB L100.2620 2.0-7.7 X10 3/uL Normal Absolute Neut 4.0 LAB L100.2720 0.83-4.51 X10 3/ul Low Absolute Lymph 0.38 Performed By: #### L100.0100 #### [facility] [address] [place], [address] PHOSPHORUS Collected: 07/25/2018 Status: F Source: FIREBAUGH 4:23 AM [facility] REPOSITORY TYPE CODE TESTS RESULT OUT OF RANGE REFERENCE UNITS LAB L501.2300 2.5-4.9 mg/dL Normal PHOS 2.6 Performed By: #### L501.2300, L501.5200 #### [facility] [address] [place], [address] MAGNESIUM Collected: 07/25/2018 Status: F Source: GISSEL 4:23 AM [facility] REPOSITORY TYPE CODE TESTS RESULT OUT OF RANGE REFERENCE UNITS LAB L501.5200 1.6-2.6 mg/dL Normal MG 1.6 Performed By: #### L501.2300, L501.5200 #### [facility] [address] [place], [address] GLUCOSE Collected: 07/25/2018 Status: F Source: GISSEL 1:27 AM [facility] REPOSITORY TYPE CODE TESTS RESULT OUT OF RANGE REFERENCE UNITS LAB L501.0100 74-106 mg/dL High alert GLU 476 Result Comment: Critical Result(s) Called at: 02:28:04 07/25/2018 by: DOUGLAS Noriega Glucose result greater than or equal to 200 mg/dL suggests DIABETES MELLITUS per A.D.A. criteria. Please note revised GLUCOSE reference range effective 2017. Performed By: #### L501.0100 #### [facility] [address] [place], [address] BEDSIDE GLUCOSE Collected: 07/25/2018 Status: F Source: GISSEL 1:19 AM [facility] REPOSITORY TYPE CODE TESTS RESULT OUT OF REFERENCE UNITS RANGE LAB L501.080 70-110 mg/dL High alert BEDSIDE GLU 481 Result Comment: MANAGEMENT OF PATIENT CARE PER NURSING PROTOCOL Performed By: #### L501.080 #### [facility] Point of Care [address] [place] [address] GLUCOSE Collected: 07/24/2018 Status: F Source: GISSEL 9:43 PM [facility] REPOSITORY TYPE CODE TESTS RESULT OUT OF RANGE REFERENCE UNITS LAB L501.0100 74-106 mg/dL High alert GLU 527 Result Comment: Critical Result(s) Called Gelacio LEON at: 22:25:21 07/24/2018 by: RITESH FOOTE Glucose result greater than or equal to 200 mg/dL suggests DIABETES MELLITUS per A.D.A. criteria. Please note revised GLUCOSE reference range effective 2017. Performed By: #### L501.0100 #### [facility] [address] [place], [address] BEDSIDE GLUCOSE Collected: 07/24/2018 Status: F Source: GISSEL 9:36 PM [facility] REPOSITORY TYPE CODE TESTS RESULT OUT OF REFERENCE UNITS RANGE LAB L501.080 70-110 mg/dL High alert BEDSIDE GLU 495 Result Comment: MANAGEMENT OF PATIENT CARE PER NURSING PROTOCOL Performed By: #### L501.080 #### [facility] Point of Care [address] [place] [address] BEDSIDE GLUCOSE Collected: 07/24/2018 Status: F Source: GISSEL 6:05 PM [facility] REPOSITORY TYPE CODE TESTS RESULT OUT OF REFERENCE UNITS RANGE LAB L501.080 70-110 mg/dL High alert BEDSIDE GLU > 500 Result Comment: MANAGEMENT OF PATIENT CARE PER NURSING PROTOCOL Performed By: #### L501.080 #### [facility] Point of Care [address] [place] [address] BEDSIDE GLUCOSE Collected: 07/24/2018 Status: F Source: GISSEL 4:44 PM [facility] REPOSITORY TYPE CODE TESTS RESULT OUT OF REFERENCE UNITS RANGE LAB L501.080 70-110 mg/dL High alert BEDSIDE GLU > 500 Result Comment: MANAGEMENT OF PATIENT CARE PER NURSING PROTOCOL Performed By: #### L501.080 #### [facility] Point of Care [address] [place] [address] BEDSIDE GLUCOSE Collected: 07/24/2018 Status: F Source: GISSEL 11:50 AM [facility] REPOSITORY TYPE CODE TESTS RESULT OUT OF REFERENCE UNITS RANGE LAB L501.080 70-110 mg/dL High alert BEDSIDE GLU 454 Result Comment: MANAGEMENT OF PATIENT CARE PER NURSING PROTOCOL Performed By: #### L501.080 #### [facility] Point of Care [address] [place] [address] BEDSIDE GLUCOSE Collected: 07/24/2018 Status: F Source: GISSEL 10:29 AM [facility] REPOSITORY TYPE CODE TESTS RESULT OUT OF REFERENCE UNITS RANGE LAB L501.080 70-110 mg/dL High BEDSIDE GLU 398 Result Comment: MANAGEMENT OF PATIENT CARE PER NURSING PROTOCOL Performed By: #### L501.080 #### [facility] Point of Care [address] [place], [place] [id number] BEDSIDE GLUCOSE Collected: 07/24/2018 Status: F Source: GISSEL 5:16 AM [facility] REPOSITORY TYPE CODE TESTS RESULT OUT OF REFERENCE UNITS RANGE LAB L501.080 70-110 mg/dL High BEDSIDE GLU 438 Result Comment: Dr Orders Followed Insulin Given MANAGEMENT OF PATIENT CARE PER NURSING PROTOCOL Performed By: #### L501.080 #### [facility] Point of Care [address] [place] [address] CBC W/DIFF, AUTOMATED Collected: 07/24/2018 Status: F Source: GISSEL 4:00 AM [facility] REPOSITORY TYPE CODE TESTS RESULT OUT OF RANGE REFERENCE UNITS LAB L100.1000 4.4-11.0 K/mm3 Normal WBC 5.6 LAB L100.1200 4.2-5.4 M/mm3 Low RBC 2.93 LAB L100.1300 12.0-15.0 g/dl Low HGB 9.1 LAB L100.1400 37-47 % Low HCT 27.6 LAB L100.1500 81-99 fL Normal MCV 94.2 LAB L100.1600 27.0-32.0 pg Normal MCH 31.1 LAB L100.1700 32-36 g/gl Normal MCHC 33.0 LAB L100.1810 11.6-14.6 % High RDW CV 15.3 LAB L100.1820 35.1-43.9 fl High RDW SD 52.8 LAB L100.1900 150-450 K/mm3 Low PLT 118 LAB L100.2000 6.2-12.0 fl Normal MPV 9.3 LAB L100.2100 47-70 % High NEUT% 82.7 LAB L100.2200 19-41 % Low LY% 6.4 LAB L100.2300 0-10 % Normal MONO% 8.0 LAB L100.2400 0-5 % Normal EO% 2.5 LAB L100.2500 0-1 % Normal BASO% 0.2 LAB L100.2550 0.0-0.9 % Normal IM GRAN % 0.200 Result Comment: IG% - Immature Granulocytes (promyelocytes, myelocytes and metamyelocytes) > 1% indicates that a LEFT SHIFT is Present. LAB L100.2620 2.0-7.7 X10 3/uL Normal Absolute Neut 4.6 LAB L100.2720 0.83-4.51 X10 3/ul Low Absolute Lymph 0.36 LAB L100.4500 SMEAR Normal COMMENT Result Comment: LYMPHOPENIA NOTED Performed By: #### L100.0100 #### [facility] [address] [place], [address] PHOSPHORUS Collected: 07/24/2018 Status: F Source: GISESL 4:00 AM [facility] REPOSITORY TYPE CODE TESTS RESULT OUT OF RANGE REFERENCE UNITS LAB L501.2300 2.5-4.9 mg/dL Normal PHOS 3.1 Performed By: #### L501.2300, L501.5200 #### [facility] [address] [place], [address] MAGNESIUM Collected: 07/24/2018 Status: F Source: GISSEL 4:00 AM [facility] REPOSITORY TYPE CODE TESTS RESULT OUT OF RANGE REFERENCE UNITS LAB L501.5200 1.6-2.6 mg/dL Normal MG 1.8 Performed By: #### L501.2300, L501.5200 #### [facility] [address] [place], [address] BASIC METABOLIC Collected: 07/24/2018 Status: F Source: FIREBAUGH PROFILE (BMP) 4:00 AM [facility] REPOSITORY TYPE CODE TESTS RESULT OUT OF RANGE REFERENCE UNITS LAB L501.0100 74-106 mg/dL High GLU 435 Result Comment: Critical Result(s) Called at: 04:44:20 07/24/2018 by: Rosalina Child Glucose result greater than or equal to 200 mg/dL suggests DIABETES MELLITUS per A.D.A. criteria. Please note revised GLUCOSE reference range effective 2017. LAB L501.1000 7-18 mg/dL High BUN 36 LAB L501.1100 0.55-1.02 mg/dL High CREAT,SERUM 1.98 Result Comment: The validity of the calculated GFR AND GFRAA in patients over 70 years has not been determined. Clinical correlation is essential. LAB L501.1110 >60 mL/min Low EST GFR 26 Result Comment: Non- GFR Calc LAB L501.1115 >60 mL/min Low EST GFR - AA 31 Result Comment: GFR Calc LAB L501.1255 ml/min Normal Estimated CRCL 20.86 LAB L501.1300 10-20 RATIO Normal BUN/CRE 18.2 LAB L501.2200 8.5-10 mg/dL Low .1 CA 7.9 LAB L501.5300 136-14 mmol/L Normal 5 NA 141 LAB L501.5600 3.5-5. mmol/L Low 1 K 3.3 LAB L501.5900 98-107 mmol/L Normal CL 106 LAB L501.6100 21.0-3 mmol/L Normal 2.0 CO2 24.0 LAB L501.6200 5-15 Normal GAP 11 Performed By: #### L500.2500 #### [facility] [address] [facility] [id number] BEDSIDE GLUCOSE Collected: 07/23/2018 Status: F Source: FIREBAUGH 11:46 PM [facility] REPOSITORY TYPE CODE TESTS RESULT OUT OF REFERENCE UNITS RANGE LAB L501.080 70-110 mg/dL High BEDSIDE GLU 435 Result Comment: MANAGEMENT OF PATIENT CARE PER NURSING PROTOCOL Performed By: #### L501.080 #### [facility] Point of Care [address] [place] [address] BEDSIDE GLUCOSE Collected: 07/23/2018 Status: F Source: FIREBAUGH 11:45 PM [facility] REPOSITORY TYPE CODE TESTS RESULT OUT OF REFERENCE UNITS RANGE LAB L501.080 70-110 mg/dL High BEDSIDE GLU 440 Result Comment: MANAGEMENT OF PATIENT CARE PER NURSING PROTOCOL Performed By: #### L501.080 #### [facility] Point of Care [address] [place] [address] BEDSIDE GLUCOSE Collected: 07/23/2018 Status: F Source: GISSEL 4:18 PM [facility] REPOSITORY TYPE CODE TESTS RESULT OUT OF REFERENCE UNITS RANGE LAB L501.080 70-110 mg/dL High BEDSIDE GLU 180 Result Comment: MANAGEMENT OF PATIENT CARE PER NURSING PROTOCOL Performed By: #### L501.080 #### [facility] Point of Care [address] [place] [address] Observed: 07/23/2018 Status: F Source: GISSEL CULTURE, BLOOD (WB) 3:20 PM [facility] REPOSITORY Has pt arrived? Y BC No growth in 5 days. Performed By: #### M200.1000 #### [facility] [address] [place], [address] BEDSIDE GLUCOSE Collected: 07/23/2018 Status: F Source: GISSEL 11:57 AM [facility] REPOSITORY TYPE CODE TESTS RESULT OUT OF REFERENCE UNITS RANGE LAB L501.080 70-110 mg/dL High BEDSIDE GLU 162 Result Comment: MANAGEMENT OF PATIENT CARE PER NURSING PROTOCOL Performed By: #### L501.080 #### [facility] Point of Care [address] [place] [address] BLOOD GASES BY CPS Collected: 07/23/2018 Status: F Source: GISSEL 6:21 AM [facility] REPOSITORY TYPE CODE TESTS RESULT OUT OF RANGE REFERENCE UNITS LAB L9000.9990 Normal BLD GAS TYPE ART LAB L9001.1000 Normal SITE R Radial LAB L9001.1010 Normal MAKSIM TEST POS LAB L9001.1048 Normal Mode CPAP PS LAB L9001.1050 O2 Normal Delivery Dev Vent LAB L9001.1074 Normal FI02 30 LAB L9001.1076 Normal PEEP 5 LAB L9001.1078 PS Normal 5 LAB L9001.1104 Normal Results To ICU LAB L9001.1105 Normal Time Given 612 LAB L9001.1110 7.35-7.45 Low pH - I-STAT 7.33 LAB L9001.1210 35-45 mmHg Low pCO2 - ISTAT 31.3 LAB L9001.1310 75-100 mmHG Low PO2 I-STAT 71 LAB L9001.2300 22-26 mmol/L Low HCO3 ISTAT 16.5 LAB L9001.2400 -2 to +2 mmol/L Low BE ISTAT -9 LAB L9001.2415 mmol/L Normal TOTAL CO2 17 ISTAT LAB L9001.2425 95-99 % Low SO2 ISTAT 93 Performed By: #### L9000.0800 #### [facility] Point of Care [address] [place] [address] BEDSIDE GLUCOSE Collected: 07/23/2018 Status: F Source: FIREBAUGH 5:33 AM [facility] REPOSITORY TYPE CODE TESTS RESULT OUT OF REFERENCE UNITS RANGE LAB L501.080 70-110 mg/dL High BEDSIDE GLU 130 Result Comment: MANAGEMENT OF PATIENT CARE PER NURSING PROTOCOL Performed By: #### L501.080 #### [facility] Point of Care [address] [place] [address] CBC W/DIFF, AUTOMATED Collected: 07/23/2018 Status: F Source: FIREBAUGH 4:00 AM [facility] REPOSITORY TYPE CODE TESTS RESULT OUT OF RANGE REFERENCE UNITS LAB L100.1000 4.4-11.0 K/mm3 Normal WBC 7.3 LAB L100.1200 4.2-5.4 M/mm3 Low RBC 2.61 LAB L100.1300 12.0-15.0 g/dl Low HGB 8.2 LAB L100.1400 37-47 % Low HCT 24.7 LAB L100.1500 81-99 fL Normal MCV 94.6 LAB L100.1600 27.0-32.0 pg Normal MCH 31.4 LAB L100.1700 32-36 g/gl Normal MCHC 33.2 LAB L100.1810 11.6-14.6 % High RDW CV 15.2 LAB L100.1820 35.1-43.9 fl High RDW SD 52.4 LAB L100.1900 150-450 K/mm3 Low PLT 124 LAB L100.2000 6.2-12.0 fl Normal MPV 8.9 LAB L100.2100 47-70 % High NEUT% 87.1 LAB L100.2200 19-41 % Low LY% 7.3 LAB L100.2300 0-10 % Normal MONO% 3.2 LAB L100.2400 0-5 % Normal EO% 2.3 LAB L100.2500 0-1 % Normal BASO% 0.0 LAB L100.2550 0.0-0.9 % Normal IM GRAN % 0.100 Result Comment: IG% - Immature Granulocytes (promyelocytes, myelocytes and metamyelocytes) > 1% indicates that a LEFT SHIFT is Present. LAB L100.2620 2.0-7.7 X10 3/uL Normal Absolute Neut 6.3 LAB L100.2720 0.83-4.51 X10 3/ul Low Absolute Lymph 0.53 LAB L100.4500 Normal SMEAR COMMENT SCANNED Result Comment: LYMPHOPENIA NOTED Performed By: #### L100.0100 #### [facility] [address] [place], [place], [address] BASIC METABOLIC Collected: 07/23/2018 Status: F Source: FIREBAUGH PROFILE (BMP) 4:00 AM [facility] REPOSITORY TYPE CODE TESTS RESULT OUT OF RANGE REFERENCE UNITS LAB L501.0100 74-106 mg/dL High GLU 136 Result Comment: Fasting Glucose result greater than or equal to 126 mg/dL suggests DIABETES MELLITUS per A.D.A. criteria. Please note revised GLUCOSE reference range effective 2017. LAB L501.1000 7-18 mg/dL High BUN 32 LAB L501.1100 0.55-1.02 mg/dL High CREAT,SERUM 1.95 Result Comment: The validity of the calculated GFR AND GFRAA in patients over 70 years has not been determined. Clinical correlation is essential. LAB L501.1110 >60 mL/min Low EST GFR 26 Result Comment: Non- GFR Calc LAB L501.1115 >60 mL/min Low EST GFR - AA 32 Result Comment: GFR Calc LAB L501.1255 ml/min Normal Estimated CRCL 21.18 LAB L501.1300 10-20 RATIO Normal BUN/CRE 16.4 LAB L501.2200 8.5-10 mg/dL Low .1 CA 7.7 LAB L501.5300 136-14 mmol/L Normal 5 NA 140 LAB L501.5600 3.5-5. mmol/L Normal 1 K 3.8 LAB L501.5900 98-107 mmol/L High CL 111 LAB L501.6100 21.0-3 mmol/L Low 2.0 CO2 19.0 LAB L501.6200 5-15 Normal GAP 10 Performed By: #### L500.2500, L501.2300, L501.5200 #### [facility] [address] [place], [address] PHOSPHORUS Collected: 07/23/2018 Status: F Source: GISSEL 4:00 AM [facility] REPOSITORY TYPE CODE TESTS RESULT OUT OF RANGE REFERENCE UNITS LAB L501.2300 2.5-4.9 mg/dL Normal PHOS 2.8 Performed By: #### L500.2500, L501.2300, L501.5200 #### [facility] [address] [place], [address] MAGNESIUM Collected: 07/23/2018 Status: F Source: GISSEL 4:00 AM [facility] REPOSITORY TYPE CODE TESTS RESULT OUT OF RANGE REFERENCE UNITS LAB L501.5200 1.6-2.6 mg/dL Normal MG 2.1 Performed By: #### L500.2500, L501.2300, L501.5200 #### [facility] [address] [place], [address] BEDSIDE GLUCOSE Collected: 07/22/2018 Status: F Source: GISSEL 11:18 PM [facility] REPOSITORY TYPE CODE TESTS RESULT OUT OF REFERENCE UNITS RANGE LAB L501.080 70-110 mg/dL High BEDSIDE GLU 121 Result Comment: MANAGEMENT OF PATIENT CARE PER NURSING PROTOCOL Performed By: #### L501.080 #### [facility] Point of Care [address] [place] [address] CONSULTATION Observed: 07/22/2018 Status: F Source: GISSEL 9:19 PM [facility] REPOSITORY [facility] Medical Records Department [address] [place], [place] [address] [address] Consultation 07/22/182053 MR#: [id number] Acct: [id number] Name: JIMENEZ WYNN Rep #: [id number] : [id number] From: Charly Ross MD PCP: Clement Bueno MD Status: ADM IN Y Location: ICU ICU07-1 Problem List (1) SVT (supraventricular tachycardia) Status: Acute (2) Takotsubo cardiomyopathy Status: Chronic (3) Atherosclerotic heart disease of [place] coronary artery without angina pectoris Status: Chronic Qualifiers: [place] vs. 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 insulin use: without bed bug exterminator use Diabetes mellitus complication status: with unspecified complications Qualified Code(s): E11.8 - Type 2 diabetes mellitus with unspecified complications (6) COPD (chronic obstructive pulmonary disease) Status: Chronic Qualifiers: Emphysema type: unspecified (7) Hypothyroidism Status: Chronic Qualifiers: Hypothyroidism type: unspecified (8) Large bowel perforation Status: Acute (9) Septic shock Status: Acute (10) DEMETRA (acute kidney injury) Status: Acute Reason for Consult Date of Consultation: 07/22/18 History of Present Illness: The patient is a 82 year old who presented for concerns of mental status and diaphoresis and was subsequently found to have evidence of a descending colon perforation and septicemia requiring further evaluation and care with exploratory surgery, partial colectomy, and colostomy who is referred for evaluation of recurrent SVT. The patient has a cardiovascular history which has included underlying SVT as well as a Takotsubo syndrome/apical ballooning syndrome superimposed upon a history of hyperlipidemia, diabetes mellitus, COPD, and hypothyroidism. At the present time the patient is in the ICU mechanically intubated/ventilated and partially sedated. It appears following her diagnosis and surgical procedure she has had recurrent episodes of supraventricular tachydysrhythmias. Based upon her cardiac rhythm strips it appears she has had evidence of underlying sinus rhythm, SVT appearing compatible with possible atrial flutter, as well as a wide complex tachydysrhythmia appearing compatible with an underlying SVT with aberrancy with subsequent abrupt termination to sinus rhythm status post IV adenosine infusion. The patient had recurrent episodes requiring recurrent IV adenosine infusion. She was subsequently placed on additional medical management with IV amiodarone as her hypotension, secondary to her sepsis syndrome, would not allow her to have other agents such as beta blockers, calcium channel blockers, etc. Since being on IV amiodarone she has remained in sinus rhythm. She has remained somewhat hypotensive which has been treated with IV vasopressor support which has been weaned off. There has been no report of any obvious acute chest discomfort or evidence of acute CHF or pulmonary edema. There was no report of near syncope or syncope. She remains anemic. Her creatinine level was elevated upon admission. It appears to be improving. Her troponin I levels have been negative. Her ECGs have demonstrated no other acute ECG changes. [] Past Medical History Allergies/Adverse Reactions: Allergies codeine Allergy (Severe, Verified 07/20/18 08:52) HEART ATTACK levofloxacin [From Levaquin] Allergy (Severe, Verified 07/20/18 08:52) Anaphylaxis Sulfa (Sulfonamide Antibiotics) Allergy (Unknown, Verified 07/20/18 08:52) Unknown adhesive tape Allergy (Verified 07/20/18 08:52) Other citalopram Allergy (Verified 07/20/18 08:52) Unknown Latex, Natural Rubber Allergy (Verified 07/20/18 08:52) Rash Penicillins Allergy (Verified 07/20/18 08:52) Rash acetaminophen [From Vicodin] Adverse Reaction (Verified 07/20/18 08:52) Chest tightness hydrocodone bitartrate [From Vicodin] Adverse Reaction (Verified 07/20/18 08:52) Chest tightness Home Medications: Ambulatory Orders Medication Instructions Recorded Past Medical History (Chronic Problems): Chronic Problems (Last Reviewed 03/01/18 @ 13:10 by Victoria Fu) Takotsubo cardiomyopathy (Chronic) Nonrheumatic tricuspid (valve) insufficiency (Chronic) Atherosclerotic heart disease of [place] coronary artery without angina pectoris (Chronic) Mild Hypothyroidism (Chronic) COPD (chronic obstructive pulmonary disease) (Chronic) Hyperlipidemia (Chronic) Type 2 diabetes mellitus (Chronic) Surgical History: hysterectomy, total hip arthroplasty, - - Fractured femur, bilateral knee surgeries and bilateral hip surgeries Psychiatric History: 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 - *Family History Maternal Family History: Family History (Last Updated 05/26/18 @ 10:48 by Sofia Allen) Mother Diabetes Brother Atrial fibrillation Brother Diabetes Sister Diabetes History Items: Diabetes Paternal Family History: Family History (Last Updated 05/26/18 @ 10:48 by Sofia Allen) Mother Diabetes Brother Atrial fibrillation Brother Diabetes Sister Diabetes History Items: Diabetes, Heart Disease Lives: [facility] Smoking Status: Never smoker Tobacco Use: Non-smoker Alcohol: None Drugs: None Review of Systems - Review of Systems General: Denies: Fever, Night Sweats, Fatigue Cardiovascular: Denies: Chest Discomfort, Shortness of Breath, Orthopnea, PND, Peripheral Edema, Palpitations, Lightheadedness, Dizziness, Near Syncope, Syncope Respiratory: Denies: Cough, Sputum Production, Hemoptysis Gastrointestinal: Denies: Hematemesis, Hematochezia, Melena Genitourinary: Denies: Dysuria, Hematuria Psychiatric: Reports: - - Mental status changes/confusion Subjectve: This is an 82-year-old white female who appears to be mechanically intubated, ventilated, and partially sedated at this time. Objective: Vital Signs Temp Pulse Resp BP Pulse Ox 98.5 F 71 19 H 99/54 L 99 07/22/18 20:00 07/22/18 20:00 07/22/18 20:00 07/22/18 20:00 07/22/18 20:00 Oxygen Flow Rate (L/min) 4 Oxygen Delivery Method Mechanical Ventilator Weight: 204 lb 2.369 oz Body Mass Index (BMI) 29.2 Intake and Output for Last 24 Hours HEENT: Atraumatic, Normocephalic Neck: Supple, Good ROM Lungs: - - Scattered upper airway sounds Cardiovascular: Regular Rhythm, Normal S1, Normal S2 Abdomen: Hypoactive Bowel Sounds Extremities: No edema 07/22/18 03:56: pH 7.24 L, Bicarbonate Actual 14.9 L, POC Total CO2 16, Base Excess -13 L, O2 Saturation 90 L, ABG pCO2 34.6 L, ABG pO2 69 L, Maksim Test POS 07/22/18 04:15: Sodium 141, Potassium 4.7, Chloride 114 H, Carbon Dioxide 18.0 L, Anion Gap 9, BUN 32 H, Creatinine 1.64 H, Est GFR (MDRD) Af Amer 39 L, Est GFR (MDRD) Non-Af 32 L, BUN/Creatinine Ratio 19.5, Glucose 167 H, Calcium 7.5 L 07/22/18 04:15: Phosphorus 3.1, Magnesium 2.7 H 07/22/18 04:15: WBC 7.0, RBC 2.94 L, Hgb 9.2 L, Hct 29.0 L, MCV 98.6, MCH 31.3, MCHC 31.7 L, RDW 15.1 H, RDW Differential 54.2 H, Plt Count 163, MPV 8.9, Immature Gran % (Auto) 0.600, Neut % (Auto) 90.2 H, Lymph % (Auto) 6.4 L, Mcintosh % (Auto) 2.3, Eos % (Auto) 0.4, Baso % (Auto) 0.1, Absolute Neuts (auto) 6.3, Total Counted Not Reportable 07/22/18 04:15: Troponin I < 0.015 Rhythm: As noted above EKG: As noted above ECHO: 03/02/2018: Left ventricle: LVEF normal at 65%; mild left atrial enlargement; mild mitral annular calcification; extension of the mitral annular calcification onto the posterior mitral valve leaflet; mild MR; mild TR; mild focal aortic valve calcification; trivial VA; estimated RV systolic pressure of 37 mmHg; decreased diastolic compliance Stress Test: 05/10/2018: Pharmacologic stress nuclear imaging study: Considered negative with a gated LVEF of 64% Cardiac Cath: 09/13/2012: [facility]: Left ventricle considered to demonstrate mid to apical left ventricular akinesis with an LVEF of 35%; left main coronary artery normal; LAD mildly calcified; LCx normal; RCA normal; 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 Supraventricular tachycardia The patient has had recurrent supraventricular tachycardia. Based upon her cardiac rhythm strips it appears she has had evidence of a potential atrial flutter as well as a supraventricular tachycardia with aberrancy-responsive to IV adenosine therapy. 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 Her current recurrent supraventricular tachycardia may be exacerbated by her underlying acute noncardiac condition/sepsis syndrome. At the present time, as she remains hypotensive, but she is not an ideal candidate for rate control therapy. She is receiving IV amiodarone and thus far it appears to be assisting with control of her cardiac rate and rhythm. Thus it will be continued at this time. As she is able to take oral medications hopefully she can resume rate limiting therapy. However she may need to be considered for continued antiarrhythmic therapy. Over time, based upon her recurrent episodes, she may also need to be considered for formal EP consultation for possible EPS/RFA. 2. The Takotsubo syndrome The patient has a history of an underlying non-CAD related cardiomyopathy compatible with a Takotsubo syndrome lash apical ballooning interim. Over time her LV systolic function has improved. Her recent noninvasive studies would suggest preserved overall LV systolic function and no obvious evidence of myocardial ischemia to suggest the development of underlying CAD. Thus at the present time she will need to be followed, during the stressful event, for any obvious recurrence of the aforementioned syndrome. She may need, depending upon her clinical course, to be reevaluated with echocardiographic studies, etc. Depending upon her clinical course, if her LV systolic function declines, she may when she is able need to be on additional medical therapy such as beta blockers and DAI inhibitors or ARB's as tolerated. 3. CAD The patient has a history of LAD mild calcification as noted above. She was not described as having angiographically significant appearing CAD. Her recent pharmacologic stress nuclear imaging study would not suggest any obvious hemodynamically significant CAD as she had no obvious evidence of ongoing myocardial ischemia. Thus she should continue risk factor evaluation care as deemed appropriate when she is able. 4. Hyperlipidemia The patient should continue evaluation and medical management as deemed appropriate for her age when she is able. 5. Diabetes mellitus She will need to continue under the care of internal medicine for this. 6. COPD She is being evaluated by internal medicine and pulmonology. 7. Hypothyroidism Again she will need to continue under the care of internal medicine for this. If she remains on amiodarone she will need to have her thyroid functions followed and medications adjusted as deemed appropriate. 8. Colon perforation She is now status post surgical intervention. She is recovering in the ICU. She is being followed by general surgery. 9. Sepsis syndrome This is thought due to her underlying colon perforation. She continues supportive measures in the ICU. 10. Acute renal insufficiency Her creatinine level was markedly elevated upon admission. It appears to be gradually improving. This will be followed as this may impact what medication she may or may not be able to receive. Comment: The above was discussed with the patient's son-in-law as well as Dr. Garrido. This note was generated with [employer] software. It may contain incorrect words, spelling, and punctuation that were not noted in checking the note before signing. 07/22/182118 <Electronically signed by Charly Ross MD> Date Charly Ross MD Cosigner Signature (if applicable): Date CC: Clement Bueno MD; Juan Jose Lemon MD; Clement Bueno MD; Charly Ross MD; Aurora Young MD Signed BEDSIDE GLUCOSE Collected: 07/22/2018 Status: F Source: GISSEL 6:10 PM [facility] REPOSITORY TYPE CODE TESTS RESULT OUT OF REFERENCE UNITS RANGE LAB L501.080 70-110 mg/dL High BEDSIDE GLU 137 Result Comment: MANAGEMENT OF PATIENT CARE PER NURSING PROTOCOL Performed By: #### L501.080 #### [facility] Point of Care [address] [place] [address] BEDSIDE GLUCOSE Collected: 07/22/2018 Status: F Source: GISSEL 12:04 PM [facility] REPOSITORY TYPE CODE TESTS RESULT OUT OF REFERENCE UNITS RANGE LAB L501.080 70-110 mg/dL High BEDSIDE GLU 148 Result Comment: MANAGEMENT OF PATIENT CARE PER NURSING PROTOCOL Performed By: #### L501.080 #### [facility] Point of Care [address] [place] [address] BEDSIDE GLUCOSE Collected: 07/22/2018 Status: F Source: GISSEL 6:30 AM [facility] REPOSITORY TYPE CODE TESTS RESULT OUT OF REFERENCE UNITS RANGE LAB L501.080 70-110 mg/dL High BEDSIDE GLU 160 Result Comment: MANAGEMENT OF PATIENT CARE PER NURSING PROTOCOL Performed By: #### L501.080 #### [facility] Point of Care [address] [place] [address] BASIC METABOLIC Collected: 07/22/2018 Status: F Source: GISSEL PROFILE (BMP) 4:15 AM [facility] REPOSITORY TYPE CODE TESTS RESULT OUT OF RANGE REFERENCE UNITS LAB L501.0100 74-106 mg/dL High GLU 167 Result Comment: Fasting Glucose result greater than or equal to 126 mg/dL suggests DIABETES MELLITUS per A.D.A. criteria. Please note revised GLUCOSE reference range effective 2017. LAB L501.1000 7-18 mg/dL High BUN 32 LAB L501.1100 0.55-1.02 mg/dL High CREAT,SERUM 1.64 Result Comment: The validity of the calculated GFR AND GFRAA in patients over 70 years has not been determined. Clinical correlation is essential. LAB L501.1110 >60 mL/min Low EST GFR 32 Result Comment: Non- GFR Calc LAB L501.1115 >60 mL/min Low EST GFR - AA 39 Result Comment: GFR Calc LAB L501.1255 ml/min Normal Estimated CRCL 25.19 LAB L501.1300 10-20 RATIO Normal BUN/CRE 19.5 LAB L501.2200 8.5-10 mg/dL Low .1 CA 7.5 LAB L501.5300 136-14 mmol/L Normal 5 NA 141 LAB L501.5600 3.5-5. mmol/L Normal 1 K 4.7 LAB L501.5900 98-107 mmol/L High CL 114 LAB L501.6100 21.0-3 mmol/L Low 2.0 CO2 18.0 LAB L501.6200 5-15 Normal GAP 9 Performed By: #### L500.2500 #### [facility] [address] [place], [place], [address] PHOSPHORUS Collected: 07/22/2018 Status: F Source: FIREBAUGH 4:15 AM [facility] REPOSITORY TYPE CODE TESTS RESULT OUT OF RANGE REFERENCE UNITS LAB L501.2300 2.5-4.9 mg/dL Normal PHOS 3.1 Performed By: #### L501.2300, L501.5200 #### [facility] [address] [place], [address] MAGNESIUM Collected: 07/22/2018 Status: F Source: FIREBAUGH 4:15 AM [facility] REPOSITORY TYPE CODE TESTS RESULT OUT OF RANGE REFERENCE UNITS LAB L501.5200 1.6-2.6 mg/dL High MG 2.7 Performed By: #### L501.2300, L501.5200 #### [facility] [address] [place], [place], [address] CBC W/DIFF, AUTOMATED Collected: 07/22/2018 Status: F Source: GISSEL 4:15 AM [facility] REPOSITORY TYPE CODE TESTS RESULT OUT OF RANGE REFERENCE UNITS LAB L100.1000 4.4-11.0 K/mm3 Normal WBC 7.0 LAB L100.1200 4.2-5.4 M/mm3 Low RBC 2.94 LAB L100.1300 12.0-15.0 g/dl Low HGB 9.2 LAB L100.1400 37-47 % Low HCT 29.0 LAB L100.1500 81-99 fL Normal MCV 98.6 LAB L100.1600 27.0-32.0 pg Normal MCH 31.3 LAB L100.1700 32-36 g/gl Low MCHC 31.7 LAB L100.1810 11.6-14.6 % High RDW CV 15.1 LAB L100.1820 35.1-43.9 fl High RDW SD 54.2 LAB L100.1900 150-450 K/mm3 Normal PLT 163 LAB L100.2000 6.2-12.0 fl Normal MPV 8.9 LAB L100.2100 47-70 % High NEUT% 90.2 LAB L100.2200 19-41 % Low LY% 6.4 LAB L100.2300 0-10 % Normal MONO% 2.3 LAB L100.2400 0-5 % Normal EO% 0.4 LAB L100.2500 0-1 % Normal BASO% 0.1 LAB L100.2550 0.0-0.9 % Normal IM GRAN % 0.600 Result Comment: IG% - Immature Granulocytes (promyelocytes, myelocytes and metamyelocytes) > 1% indicates that a LEFT SHIFT is Present. LAB L100.2620 2.0-7.7 X10 3/uL Normal Absolute Neut 6.3 LAB L100.2720 0.83-4.51 X10 3/ul Low Absolute Lymph 0.45 Performed By: #### L100.0100 #### [facility] [address] [place], [address] TROPONIN-I Collected: 07/22/2018 Status: F Source: FIREBAUGH 4:15 AM [facility] REPOSITORY Order Comment: 'TROP' Serial specimen #1, #2 or #3: 1 TYPE CODE TESTS RESULT OUT OF RANGE REFERENCE UNITS LAB L501.4010 <0.045 ng/mL Normal < 0.015 TROPONIN-I Result Comment: TROPONIN-I EXPECTED VALUES <0.045 Negative 0.045 - 0.590 Consistent with Cardiac Damage > OR = 0.600 Critical Value Not every elevated troponin is indicative of MD. These values should be used with clinical judgement in examining the patient's clinical picture for diagnosis. To establish a diagnosis of MD versus myocardial injury, there must be a demonstrated rise and/or fall in the troponin values, in addition to ischemic symptoms, EKG changes, new regional wall motion abnormality, and/or angiographical evidence. PLEASE NOTE: REFERENCE RANGES EDITED 18 Performed By: #### L501.4010 #### [facility] [address] [place], [address] BLOOD GASES BY [facility] Collected: 07/22/2018 Status: F Source: GISSEL 3:56 AM [facility] REPOSITORY TYPE CODE TESTS RESULT OUT OF RANGE REFERENCE UNITS LAB L9000.9990 Normal BLD GAS TYPE ART LAB L9001.1000 Normal SITE R Radial LAB L9001.1010 Normal MAKSIM TEST POS LAB L9001.1048 Normal Mode A-C LAB L9001.1050 O2 Normal Delivery Dev Vent LAB L9001.1065 Vt Normal 450 LAB L9001.1070 RR Normal 12 LAB L9001.1074 Normal FI02 30 LAB L9001.1076 Normal PEEP 5 LAB L9001.1104 Normal Results To HOSP MD LAB L9001.1105 Normal Time Given 358 LAB L9001.1110 7.35-7.45 Low pH - I-STAT 7.24 LAB L9001.1210 35-45 mmHg Low pCO2 - ISTAT 34.6 LAB L9001.1310 75-100 mmHG Low PO2 I-STAT 69 LAB L9001.2300 22-26 mmol/L Low HCO3 ISTAT 14.9 LAB L9001.2400 -2 to +2 mmol/L Low BE ISTAT -13 LAB L9001.2415 mmol/L Normal TOTAL CO2 16 ISTAT LAB L9001.2425 95-99 % Low SO2 ISTAT 90 Performed By: #### L9000.0800 #### [facility] Point of Care [address] [place] [address] BEDSIDE GLUCOSE Collected: 07/21/2018 Status: F Source: GISSEL 11:48 PM [facility] REPOSITORY TYPE CODE TESTS RESULT OUT OF REFERENCE UNITS RANGE LAB L501.080 70-110 mg/dL High BEDSIDE GLU 144 Result Comment: MANAGEMENT OF PATIENT CARE PER NURSING PROTOCOL Performed By: #### L501.080 #### [facility] Point of Care [address] [place] [address] BASIC METABOLIC Collected: 07/21/2018 Status: F Source: GISSEL PROFILE (BMP) 7:49 PM [facility] REPOSITORY TYPE CODE TESTS RESULT OUT OF RANGE REFERENCE UNITS LAB L501.0100 74-106 mg/dL High GLU 145 Result Comment: Fasting Glucose result greater than or equal to 126 mg/dL suggests DIABETES MELLITUS per A.D.A. criteria. Please note revised GLUCOSE reference range effective 2017. LAB L501.1000 7-18 mg/dL High BUN 31 LAB L501.1100 0.55-1.02 mg/dL High CREAT,SERUM 1.59 Result Comment: The validity of the calculated GFR AND GFRAA in patients over 70 years has not been determined. Clinical correlation is essential. LAB L501.1110 >60 mL/min Low EST GFR 33 Result Comment: Non- GFR Calc LAB L501.1115 >60 mL/min Low EST GFR - AA 40 Result Comment: GFR Calc LAB L501.1255 ml/min Normal Estimated CRCL 25.98 LAB L501.1300 10-20 RATIO Normal BUN/CRE 19.5 LAB L501.2200 8.5-10 mg/dL Low .1 CA 7.1 LAB L501.5300 136-14 mmol/L Normal 5 NA 138 LAB L501.5600 3.5-5. mmol/L Normal 1 K 4.5 LAB L501.5900 98-107 mmol/L High CL 112 LAB L501.6100 21.0-3 mmol/L Low 2.0 CO2 16.0 LAB L501.6200 5-15 Normal GAP 10 Performed By: #### L500.2500, L501.2300, L501.5200 #### [facility] [address] [place], [address] PHOSPHORUS Collected: 07/21/2018 Status: F Source: GISSEL 7:49 PM [facility] REPOSITORY TYPE CODE TESTS RESULT OUT OF RANGE REFERENCE UNITS LAB L501.2300 2.5-4.9 mg/dL Normal PHOS 3.0 Performed By: #### L500.2500, L501.2300, L501.5200 #### [facility] [address] [place], [address] MAGNESIUM Collected: 07/21/2018 Status: F Source: GISSEL 7:49 PM [facility] REPOSITORY TYPE CODE TESTS RESULT OUT OF RANGE REFERENCE UNITS LAB L501.5200 1.6-2.6 mg/dL Normal MG 2.6 Performed By: #### L500.2500, L501.2300, L501.5200 #### [facility] [address] [place], [address] BEDSIDE GLUCOSE Collected: 07/21/2018 Status: F Source: GISSEL 5:40 PM [facility] REPOSITORY TYPE CODE TESTS RESULT OUT OF REFERENCE UNITS RANGE LAB L501.080 70-110 mg/dL High BEDSIDE GLU 139 Result Comment: MANAGEMENT OF PATIENT CARE PER NURSING PROTOCOL Performed By: #### L501.080 #### [facility] Point of Care [address] [place] [address] 12 LEAD ELECTROCARDIOGRAM Observed: 07/21/2018 Status: F Source: GISSEL 2:12 PM [facility] REPOSITORY [facility] Cardiovascular Services [address] [place] [address] 12 Lead EKG 07/20/18 0804 MR#: [id number] Acct: [id number] Name: JIMENEZ WYNN Rep #: [id number] : 1935 82 From: Charly Ross MD Attending Dr: Paula Garrido MD Status: ADM IN Ordering Dr: Matias Cortes MD Date: 07/20/18 Location: ICU Sex: F C Admitted: 07/20/18 Test Reason : WEAKNESS Blood Pressure : / mmHG Vent. Rate : 086 BPM Atrial Rate : 086 BPM P-R Int : 138 ms QRS Dur : 090 ms QT Int : 388 ms P-R-T Axes : 021 -42 013 degrees QTc Int : 464 ms Normal sinus rhythm Left axis deviation Minimal voltage criteria for LVH, may be normal variant Anterolateral infarct , age undetermined , cannot be excluded Abnormal ECG Confirmed by CODY MERCER, CHARLY ([id number]), video tape editor SADIQ BUENO ([id number]) on 07/21/2018 2:11:47 PM Referred By: MONA Confirmed By:CHARLY ROSS MD 07/21/18 1411 Date Charly Ross MD CC: Paula Garrido MD; Clement Bueno MD; Matias Cortes MD Signed BEDSIDE GLUCOSE Collected: 07/21/2018 Status: F Source: FIREBAUGH 11:58 AM [facility] REPOSITORY TYPE CODE TESTS RESULT OUT OF REFERENCE UNITS RANGE LAB L501.080 70-110 mg/dL High BEDSIDE GLU 143 Result Comment: MANAGEMENT OF PATIENT CARE PER NURSING PROTOCOL Performed By: #### L501.080 #### [facility] Point of Care [address] [place] [address] OPERATIVE REPORT Observed: 07/21/2018 Status: F Source: FIREBAUGH 9:55 AM [facility] REPOSITORY [facility] Medical Records Department [address] [place] [address] Operative Report 07/20/18 1343 MR#: [id number] Acct: [id number] Name: JIMENEZ WYNN Rep #: [id number] : 1935 82 From: Aurora Young MD PCP: Clement Bueno MD Status: ADM IN Y Location: ICU ICU07-1 Report of Operation Date of Procedure: 07/27/18 Pre-Operative Diagnosis: Pneumoperitoneum Post-Operative Diagnosis: Perforated descending colon near splenic flexure Surgery/Procedure Performed:: Exploratory laparotomy, mobilization of the splenic flexure, left colon resection, end colostomy adolescent specialist: Franklyn Dubois adolescent specialist: Deya Carrillo Type of Anesthesia:: General/Supplemental Anesthesiologist: Vasquez Barlow Special Medications: Patient was given clindamycin 900 mg IV and aztreonam 1 gram IV in the ER for perforated bowel prior to surgery Specimen's removed: Left colon and omentum Drains: benitez Estimated Blood Loss (mL): <20 cc Fluids Replaced: 1999 Description of Procedure: 82-year-old female was found to have pneumoperitoneum likely source sigmoid colon. Patient was given clindamycin 900 mg IV 1 and aztreonam 1 g IV 1 prior to surgery in the ER for perforated bowel. She is also given multiple fluid boluses and did need to start on Levophed 5 mcg/min. Expiratory laparotomy possible bowel resection possible stoma was elected and discussed with the patient and her family who agreed to proceed. Patient was brought to the operating room and placed supine on the operating room table. General anesthesia was induced after timeout was completed verifying correct patient, site, positioning, procedure, and special equipment. The abdomen was prepped draped in usual sterile fashion. A midline incision was made with the 10 blade scalpel and deepened with electrocautery. Entry into the abdomen did note tannish purulent fluid. This was sent for culture. On further exploration of abdomen, there was noted to be perforation of the left colon with a large ball of feces sitting in the left posterior abdomen. This was removed along with several other balls of feces milk from her transverse/proximal descending colon. The colon was mobilized along the white line of Toldt laterally and the splenic flexure was also mobilized using the LigaSure impact. TEJ 75 was used to come across the bowel distally and proximally at mid transverse. The LigaSure impact again was used to come across the omentum and mesentery of the left colon. The left colon was sent to pathology as specimen. The abdomen was irrigated with 5 L of warmed normal saline. Hemostasis was assured. Left lower quadrant ostomy site formed using the cut on the Bovie form a salamatof and then using Army-Goldonna's to go down to the fascia which was incised with electrocautery and the rectus muscle was split and the peritoneum was also incised under direct visualization. The mid transverse colon was brought through the left lower quadrant ostomy site. The mid transverse colon was easily able to be brought to the ostomy site without tension. Prior to closing all gowns and gloves were changed. The midline fascia was closed with 1-0 PDS suture. The wound was again irrigated. The subcutaneous was bought together with a few interrupted 2-0 Vicryl sutures. The skin was closed loosely with yuriy and Betadine mamadou. 4 x 4 gauzes were placed over the top with tape. Next stoma was secured to the fascia with 3-0 Vicryl interrupted sutures 2. The colostomy was matured with with 3-0 Vicryl sutures. Additional ball of feces was removed from the colostomy. The colostomy site was dressed with Vaseline gauze and appliance will be placed on the patient's in the ICU. Patient remained extubated, on Levophed at 10 mcg/min and was transferred to the ICU. - Complications none 07/21/18 0955 <Electronically signed by Aurora Young MD> Date Aurora Young MD CC: Juan Jose Lemon MD; Clement Bueno MD; Aurora Young MD Signed LACTIC ACID Collected: 07/21/2018 Status: F Source: GISSEL 6:55 AM [facility] REPOSITORY Order Comment: Comments: please check after boluses given Yes/No query for Sepsis Lactate Rule Y TYPE CODE TESTS RESULT OUT OF RANGE REFERENCE UNITS LAB L503.6005 0.4-2.0 mmol/L Normal LACTIC ACID 1.9 Performed By: #### L503.6005 #### [facility] [address] [place], [address] BEDSIDE GLUCOSE Collected: 07/21/2018 Status: F Source: GISSEL 5:36 AM [facility] REPOSITORY TYPE CODE TESTS RESULT OUT OF REFERENCE UNITS RANGE LAB L501.080 70-110 mg/dL High BEDSIDE GLU 169 Result Comment: MANAGEMENT OF PATIENT CARE PER NURSING PROTOCOL Performed By: #### L501.080 #### [facility] Point of Care [address] [place] [address] BASIC METABOLIC Collected: 07/21/2018 Status: F Source: GISSEL PROFILE (BMP) 5:28 AM [facility] REPOSITORY TYPE CODE TESTS RESULT OUT OF RANGE REFERENCE UNITS LAB L501.0100 74-106 mg/dL High GLU 174 Result Comment: Fasting Glucose result greater than or equal to 126 mg/dL suggests DIABETES MELLITUS per A.D.A. criteria. Please note revised GLUCOSE reference range effective 2017. LAB L501.1000 7-18 mg/dL High BUN 29 LAB L501.1100 0.55-1.02 mg/dL High CREAT,SERUM 1.42 Result Comment: The validity of the calculated GFR AND GFRAA in patients over 70 years has not been determined. Clinical correlation is essential. LAB L501.1110 >60 mL/min Low EST GFR 38 Result Comment: Non- GFR Calc LAB L501.1115 >60 mL/min Low EST GFR - AA 46 Result Comment: GFR Calc LAB L501.1255 ml/min Normal Estimated CRCL 29.09 LAB L501.1300 10-20 RATIO High BUN/CRE 20.4 LAB L501.2200 8.5-10 mg/dL Low .1 CA alert 6.3 Result Comment: Critical Result(s) Called at: 06:08:58 07/21/2018 by: Jeremy Drummond RN. (ICU). LAB L501.5300 136-145 mmol/L Normal NA 142 LAB L501.5600 3.5-5.1 mmol/L Normal K 4.6 LAB L501.5900 98-107 mmol/L High CL 116 LAB L501.6100 21.0-32.0 mmol/L Low CO2 17.0 LAB L501.6200 5-15 Normal 9 GAP Performed By: #### L500.2500, L501.2300, L501.5200 #### [facility] [address] [place], [address] PHOSPHORUS Collected: 07/21/2018 Status: F Source: GISSEL 5:28 AM [facility] REPOSITORY TYPE CODE TESTS RESULT OUT OF RANGE REFERENCE UNITS LAB L501.2300 2.5-4.9 mg/dL Normal PHOS 2.8 Performed By: #### L500.2500, L501.2300, L501.5200 #### [facility] [address] [place], [place], [address] MAGNESIUM Collected: 07/21/2018 Status: F Source: FIREBAUGH 5:28 AM [facility] REPOSITORY TYPE CODE TESTS RESULT OUT OF RANGE REFERENCE UNITS LAB L501.5200 1.6-2.6 mg/dL Low MG 1.2 Performed By: #### L500.2500, L501.2300, L501.5200 #### [facility] [address] [place], [place], [address] CBC W/DIFF, AUTOMATED Collected: 07/21/2018 Status: C Source: FIREBAUGH 5:28 AM [facility] REPOSITORY TYPE CODE TESTS RESULT OUT OF RANGE REFERENCE UNITS LAB L100.1000 4.4-11.0 K/mm3 Normal WBC 8.1 LAB L100.1200 4.2-5.4 M/mm3 Low RBC 3.27 LAB L100.1300 12.0-15.0 g/dl Low HGB 10.6 LAB L100.1400 37-47 % Low HCT 32.5 LAB L100.1500 81-99 fL High MCV 99.4 LAB L100.1600 27.0-32.0 pg High MCH 32.4 LAB L100.1700 32-36 g/gl Normal MCHC 32.6 LAB L100.1810 11.6-14.6 % High RDW CV 14.8 LAB L100.1820 35.1-43.9 fl High RDW SD 51.6 LAB L100.1900 150-450 K/mm3 Normal PLT 234 LAB L100.2000 6.2-12.0 fl Normal MPV 8.6 LAB L100.2100 47-70 % High NEUT% 88.5 LAB L100.2200 19-41 % Low LY% 7.1 LAB L100.2300 0-10 % Normal MONO% 1.1 LAB L100.2400 0-5 % Normal EO% 0.9 LAB L100.2500 0-1 % Normal BASO% 0.2 LAB L100.2550 0.0-0.9 % High IM GRAN % 2.200 Result Comment: IG% - Immature Granulocytes (promyelocytes, myelocytes and metamyelocytes) > 1% indicates that a LEFT SHIFT is Present. LAB L100.2620 2.0-7.7 X10 3/uL Normal Absolute Neut 7.1 LAB L100.2720 0.83-4.51 X10 3/ul Low Absolute Lymph 0.57 LAB L100.4500 SMEAR Normal COMMENT Result Comment: BANDS NOTED LAB L100.8100 Normal 1+ CRENATED RBC LAB L100.9900 Normal PATH REV Reviewed Result Comment: Neutrophilic left shift. Macrocytic anemia. Clinical correlation necessary. Jeffrey Ryan M.D. 07/21/18 AMENDED REPORT 07/21/18 1352 PATH REV previously reported as: Danelle ward Performed By: #### L100.0100 #### [facility] [address] [place], [address] LIVER PROFILE Collected: 07/21/2018 Status: F Source: FIREBAUGH 5:25 AM [facility] REPOSITORY TYPE CODE TESTS RESULT OUT OF RANGE REFERENCE UNITS LAB L501.1500 6.4-8.2 g/dL Low T PROT 4.5 LAB L501.1800 3.2-5.0 g/dL Low ALB 1.8 LAB L501.1950 2.2-4.2 g/dL Normal GLOB 2.7 LAB L501.4100 15-37 U/L Normal AST 20 LAB L501.4305 45-117 U/L Normal ALK P 72 LAB L501.4405 13-56 U/L Low ALT 11 LAB L501.4600 0.20-1.00 mg/dL Normal T BILI 0.30 LAB L501.4700 0.00-0.30 mg/dL Normal D BILI 0.17 Performed By: #### L500.3400 #### [facility] [address] [place], [place], [address] CONSULTATION Observed: 07/21/2018 Status: F Source: FIREBAUGH 5:20 AM [facility] REPOSITORY [facility] Medical Records Department [address] [place] [address] Consultation 07/20/18 1504 MR#: [id number] Acct: [id number] Name: JIMENEZ WYNN Rep #: [id number] : 1935 82 From: Juan Jose Lemon MD PCP: Clement Bueno MD Status: ADM IN Y Location: ICU ICU07-1 Problem List (1) Large bowel perforation Status: Acute (2) Septic shock Status: Acute (3) DEMETRA (acute kidney injury) Status: Acute (4) SVT (supraventricular tachycardia) Status: Acute (5) Takotsubo cardiomyopathy Status: Chronic (6) Nonrheumatic tricuspid (valve) insufficiency Status: Chronic (7) Hypothyroidism Status: Chronic Qualifiers: (8) COPD (chronic obstructive pulmonary disease) Status: Chronic Qualifiers: (9) Hyperlipidemia Status: Chronic Qualifiers: Hyperlipidemia type: pure hypercholesterolemia Qualified Code(s): E78.00 - Pure hypercholesterolemia, unspecified; E78.0 - Pure hypercholesterolemia (10) Type 2 diabetes mellitus Status: Chronic Reason for Consult Date of Consultation: 07/20/18 Reason for Consultation: Septic shock, acute respiratory failure History of Present Illness: The patient is a 82 year old F, with past medical history listed below, who presented to [facility] on 07/20/2018 secondary to confusion and not feeling well from a jail. Patient reportedly had reported feeling worse over the last 24-48 hours. On presentation to the emergency room, patient was noted to be 87/58 without significant hypoxia. Patient does have a baseline facial droop on the right according to the son, but chest x-ray showed free air under the right hemidiaphragm. Initial lactate was noted to be 5.9. Dr. Young was made aware into the patient emergently to the OR. Patient was treated with clindamycin and azactam. During the OR, patient reportedly was hypotensive as measured by art line. She was initiated on Levophed therapy, but reportedly tolerated the surgery well. Personally discussed with Dr. Young. Patient reportedly tolerated the procedure well. A large hole was noted in the splenic flexure with balls of stool noted throughout the abdomen. Patient was given a colostomy and partial colectomy. Patient was transferred to the intensive care unit with mechanical ventilation. Patient was not attempted at extubation while in the PACU. Able to obtain any review of systems secondary to intubation. Past Medical History Past Medical History (Chronic Problems): Chronic Problems (Last Reviewed 03/01/18 @ 13:10 by Victoria Fu) Takotsubo cardiomyopathy (Chronic) Nonrheumatic tricuspid (valve) insufficiency (Chronic) Atherosclerotic heart disease of [place] coronary artery without angina pectoris (Chronic) Mild Hypothyroidism (Chronic) COPD (chronic obstructive pulmonary disease) (Chronic) Hyperlipidemia (Chronic) Type 2 diabetes mellitus (Chronic) Medical History: Medical History (Last Reviewed 03/01/18 @ 13:10 by Victoria Fu) Takotsubo cardiomyopathy (Chronic) I51.81 Nonrheumatic tricuspid (valve) insufficiency (Chronic) I36.1 Atherosclerotic heart disease of [place] coronary artery without angina pectoris (Chronic) I25.10 Mild Hypothyroidism (Chronic) E03.9 COPD (chronic obstructive pulmonary disease) (Chronic) J44.9 Hyperlipidemia (Chronic) E78.5 Type 2 diabetes mellitus (Chronic) E11.9 Anemia D64.9 CVA (cerebral vascular accident) I63.9 Depression F32.9 Osteoarthritis M19.90 Allergies codeine Allergy (Severe, Verified 07/20/18 08:52) HEART ATTACK levofloxacin [From Levaquin] Allergy (Severe, Verified 07/20/18 08:52) Anaphylaxis Sulfa (Sulfonamide Antibiotics) Allergy (Unknown, Verified 07/20/18 08:52) Unknown adhesive tape Allergy (Verified 07/20/18 08:52) Other citalopram Allergy (Verified 07/20/18 08:52) Unknown Latex, Natural Rubber Allergy (Verified 07/20/18 08:52) Rash Penicillins Allergy (Verified 07/20/18 08:52) Rash acetaminophen [From Vicodin] Adverse Reaction (Verified 07/20/18 08:52) Chest tightness hydrocodone bitartrate [From Vicodin] Adverse Reaction (Verified 07/20/18 08:52) Chest tightness Home Medications: Ambulatory Orders Medication Instructions Recorded Levothyroxine [Synthroid] 25 mcg PO DAILY@0600 05/23/16 Meloxicam [Mobic] 15 mg PO QODAY 05/23/16 Surgical History: Surgical History (Last Updated 05/26/18 @ 10:46 by Sofia Allen) History of arthroplasty of right hip Z96.641 History of back surgery Z98.890 Lumbar Disc History of left hip replacement Z96.642 History of total bilateral knee replacement Z96.653 History of hysterectomy Z90.710 History of tonsillectomy Z90.89 Surgical History: hysterectomy, total hip arthroplasty, - - Fractured femur, bilateral knee surgeries and bilateral hip surgeries Psychiatric History: No pertinent psych hx Smoking Status: Never smoker - *Family History Maternal Family History: Family History (Last Updated 05/26/18 @ 10:48 by Sofia Allen) Mother Diabetes Brother Atrial fibrillation Brother Diabetes Sister Diabetes History Items: No pertinent history Paternal Family History: Family History (Last Updated 05/26/18 @ 10:48 by Sofia Allen) Mother Diabetes Brother Atrial fibrillation Brother Diabetes Sister Diabetes History Items: No pertinent history Review of Systems Unable to obtain accurate/complete ROS d/t: Intubated and sedated Patient Problems: Active and Suspected Problems (Last Reviewed 03/01/18 @ 13:10 by Victoria Fu) Large bowel perforation (Acute) Septic shock (Acute) Objective: All imaging was personally reviewed. CT scan of the abdomen did show free intraperitoneal air with retroperitoneal air. Sigmoid diverticulosis was noted. Patient did have bilateral atelectasis. Original chest x-ray did show underlying atelectasis at the bases with free air. Chest x-ray while in the intensive care unit showed appropriate placement of endotracheal tube. - Physical Exam General: - - Intubated and sedated. Fair vent synchrony noted. Appears stated age. HEENT: Atraumatic, PERRLA, EOMI, Normocephalic, - - No scleral icterus or injection noted. Oral: No Gingival or Mucosal Lesions/ Ulcerations, Dry Mucosa Neck: Supple, No JVD, No Nodes, Trachea Midline Lungs: No rhonchi, No wheeze, No rales, Diminished, - - Symmetric expansion. No dullness to percussion. Cardiovascular: Regular rate, Regular Rhythm, Normal S1, Normal S2, No murmurs, No rub noted, No Gallop Abdomen: Soft, Bowel Sounds Not Present, Distended - Slightly, Obese, - - Ostomy is clean, dry and intact. [place] mucosa noted. Extremities: No clubbing, No cyanosis, Capillary Refill Less than 3 Seconds, Edema - Trace peripheral edema Skin: Incision - Clean, dry and intact Musculoskeletal: No Tenderness to Palpation of Joints or Extremities Lymphatic: No Cervical, Supraclavicular, or Inguinal Adenopathy Neurological: - - Patient with paralytic on board during initial evaluation Psych/Mental Status: Flat Affect Vital Signs Temp Pulse Resp BP Pulse Ox 36.3 C L 88 12 104/67 100 07/20/18 11:04 07/20/18 14:38 07/20/18 14:38 07/20/18 11:04 07/20/18 14:38 Oxygen Flow Rate (L/min) 4 Oxygen Delivery Method Nasal Cannula Weight: 79.3 kg Body Mass Index (BMI) 28.2 Intake and Output for Last 24 Hours Output Total 100 / 100 Balance -100 / -100 Laboratory Tests WBC 8.1 WBC RBC Hgb Hct MCV MCH MCHC RDW RDW Differential Plt Count MPV Immature Gran % (Auto) WBC 4.8 RBC 3.90 L Hgb 12.2 Hct 38.3 MCV 98.2 MCH 31.3 MCHC 31.9 L RDW 14.6 RDW Differential 52.0 H Plt Count 228 Clinical Impression(s) from Imaging Studies Chest X-Ray 07/20/18 07:55 IMPRESSION: Findings suggestive of underlying atelectasis and/or scarring at the lung bases. Questionable free air beneath the right hemidiaphragm. A right side up decubitus view is recommended for further evaluation. Electronically Signed: Jourdan De La Fuente MD at 8:36 EDT Tel [phone], Service support , Chest X-Ray 07/20/18 08:30 IMPRESSION: Free intraperitoneal air. The referring physician was notified. Electronically Signed: Jourdan De La Fuente MD at 9:15 EDT Tel [phone], Service support , Abdomen/Pelvis CT 07/20/18 08:55 IMPRESSION: Free intraperitoneal air as well as retroperitoneal air. Sigmoid diverticulosis and possible perforation of the sigmoid colon Bibasilar atelectasis. Stable left renal cyst. Electronically Signed: Jourdan De La Fuente MD at 9:38 EDT Tel [phone], Service support , Chest X-Ray 07/20/18 10:26 IMPRESSION: The tip of the right internal jugular venous catheter is in the right atrium. Increased markings at the lung bases suggestive bibasilar atelectasis and/or scarring. Electronically Signed: Jourdan De La Fuente MD at 12:15 EDT Tel [phone], Service support , Chest X-Ray 07/20/18 14:23 IMPRESSION: All the side port tubes are in good position. Stable increased markings at the lung bases suggesting bibasilar atelectasis. Electronically Signed: Jourdan De La Fuente MD at 14:55 EDT Tel [phone], Service support , Assessment/Plan Active and Suspected Problems (Last Reviewed 03/01/18 @ 13:10 by Victoria Fu) Large bowel perforation (Acute) Septic shock (Acute) RECOMMENDATIONS: 1. Initiate propofol and fentanyl sedation 2. Spontaneous breathing and awakening trials per protocol 3. Continue pressors as necessary 4. Add empiric vancomycin given history of MRSA 5. Hold on any tube feeds for now 6. Initiate Pulmicort for therapeutic substitution of Advair IMPRESSIONS: 1. Septic shock secondary to bowel perforation Patient currently on Zosyn therapy. Will monitor for reported rash and can treat symptomatically with steroids if necessary. Patient should have vancomycin added given history of MRSA. Anticipate continued decompensation over the next 24-48 hours given stool found in the abdomen. Patient currently is a full code, but reportedly was a DNR [facility] arrest at the jail prior to acute situation. Area of the lesion is suggestive of ischemic etiology. 2. Acute hypoxic respiratory failure/history of COPD Patient does have a history of COPD in the past. Will treat with bronchodilators. Hold off on steroid therapy. Chest x-ray shows only areas of atelectasis, which were likely secondary to abdominal pain. We will continue with spontaneous awakening and breathing trials per protocol. Fentanyl and propofol for sedation. Initiate Pulmicort therapy for substitution of baseline Advair 3. Diabetes mellitus Patient will be n.p.o. given acute surgical intervention. Following with sliding scale insulin is likely appropriate at this time. Not recommend continuation of metformin given patient's current renal function. 4. Acute on chronic kidney disease stage III Likely secondary to septic shock. Patient has been fluid resuscitated. Continue to support blood pressure. We will continue to monitor and replace electrolytes as necessary. 5. History of CVA/hyperlipidemia/hypothyroidism/osteoarthritis/multiple surgeries/multiple allergies/advanced age Complicates care, management, recovery and prognosis. Patient does have a right facial droop at baseline. Hold medications for now. Possibly reinitiate Synthroid once patient has bowel function. Hold baseline hypertensive medications. TIME: 45 minutes critical care time spent addressing patient's septic shock, acute respiratory failure, diabetes mellitus, acute kidney injury, review of all data and collaboration with care team (2:30 PM to 3:30 PM) Code Visit [id number]: [id number] Critical care first hour 07/21/18519 <Electronically signed by Juan Jose Lemon MD> Date Juan Jose Lemon MD Cosigner Signature (if applicable): Date CC: Juan Jose Lemon MD; Clement Bueno MD; Aurora Young MD Signed BEDSIDE GLUCOSE Collected: 07/21/2018 Status: F Source: GISSEL 12:34 AM [facility] REPOSITORY TYPE CODE TESTS RESULT OUT OF REFERENCE UNITS RANGE LAB L501.080 70-110 mg/dL High BEDSIDE GLU 196 Result Comment: MANAGEMENT OF PATIENT CARE PER NURSING PROTOCOL Performed By: #### L501.080 #### [facility] Laboratory Point of Care [address] [place] [address] LACTIC ACID Collected: 07/20/2018 Status: F Source: GISSEL 10:30 PM [facility] REPOSITORY Order Comment: Yes/No query for Sepsis Lactate Rule Y TYPE CODE TESTS RESULT OUT OF REFERENCE UNITS RANGE LAB L503.6005 0.4-2.0 mmol/L High LACTIC ACID 2.6 Result Comment: SPECIMEN NOT ON ICE Critical Result(s) Called at: 23:18:04 07/20/2018 by: Nataly AUGUSTINE Performed By: #### L503.6005 #### [facility] [address] [place], [address] BEDSIDE GLUCOSE Collected: 07/20/2018 Status: F Source: [place] 5:44 PM [facility] REPOSITORY TYPE CODE TESTS RESULT OUT OF REFERENCE UNITS RANGE LAB L501.080 70-110 mg/dL High BEDSIDE GLU 232 Result Comment: MANAGEMENT OF PATIENT CARE PER NURSING PROTOCOL Performed By: #### L501.080 #### [facility] Laboratory Point of Care [address] [facility] [place] [address] HISTORY AND PHYSICAL Observed: 07/20/2018 Status: F Source: [place]RE[place] EXAM 5:26 PM [facility] REPOSITORY [facility] Medical Records Department [address] [facility] [place] [address] History and Physical 07/20/18 1506 MR#: [id number] Acct: [id number] Name: JIMENEZ WYNN Rep #: [id number] : 1935 82 From: Paula Garrido MD PCP: Clement Bueno MD Status: [facility] IN Y [facility] (1) Large bowel perforation Status: Acute (2) Septic shock Status: Acute (3) DEMETRA (acute kidney injury) Status: Acute (4) Takotsubo cardiomyopathy Status: Chronic (5) Nonrheumatic tricuspid (valve) insufficiency Status: Chronic (6) Atherosclerotic heart disease of [place] coronary artery without angina pectoris Status: Chronic Qualifiers: [place] vs. transplanted heart: [place] heart Comment: Mild (7) Hypothyroidism Status: Chronic Qualifiers: Hypothyroidism type: unspecified (8) COPD (chronic obstructive pulmonary disease) Status: Chronic Qualifiers: Emphysema type: unspecified (9) Hyperlipidemia Status: Chronic Qualifiers: Hyperlipidemia type: unspecified Qualified Code(s): E78.5 - Hyperlipidemia, unspecified (10) Type 2 diabetes mellitus Status: Chronic Qualifiers: Diabetes mellitus snf insulin use: without snf use Diabetes mellitus complication status: with unspecified complications Qualified Code(s): E11.8 - Type 2 diabetes mellitus with unspecified complications History of Present Illness Date of Admission: 07/20/18 Chief Complaint: Not feeling well, confusion The patient is a 82 year old F with multiple comorbidities significant for Takusubo cardiomyopathy with SVTs, hypertension, type II DM, resident in a jail who was brought to the emergency room with complaints of confusion and not feeling well as well as being diaphoretic Patient was seen in the emergency room and found to be hypotensive, pressure was 87/58, heart rate was 89, respiratory rate of 16, temperature 96.9F. Admitting blood work showed RBC count of 8.1, Hb 13.9, platelets 298, INR 1.0, BMP shows sodium of 139, potassium 4.9, chloride 99, bicarbonate 25, BUN 27, creatinine 2.35, baseline creatinine is between 1.1-1.2. Lactic acid was 5.9. Admitting chest x-ray was suggestive of underlying atelectasis and scarring at the lung bases, free air under the right hemidiaphragm. Abdominal and pelvic CT shows free intraperitoneal air as well as retroperitoneal air with sigmoid diverticulosis and possible perforation of the sigmoid colon. Patient was sent into the OR, underwent exploratory laparotomy with left colon resection and end colostomy, findings included a perforated descending colon near splenic flexure. She was subsequently sent to the ICU for further management. At time of being examined in the ICU, patient still under sedation, vital signs stable, off levophed. Past Medical History Past Medical History (Chronic Problems): Chronic Problems (Last Reviewed 03/01/18 @ 13:10 by Victoria Fu) Takotsubo cardiomyopathy (Chronic) Nonrheumatic tricuspid (valve) insufficiency (Chronic) Atherosclerotic heart disease of [place] coronary artery without angina pectoris (Chronic) Mild Hypothyroidism (Chronic) COPD (chronic obstructive pulmonary disease) (Chronic) Hyperlipidemia (Chronic) Type 2 diabetes mellitus (Chronic) Medical History: Medical History (Last Reviewed 03/01/18 @ 13:10 by Victoria Fu) Takotsubo cardiomyopathy (Chronic) I51.81 Nonrheumatic tricuspid (valve) insufficiency (Chronic) I36.1 Atherosclerotic heart disease of [place] coronary artery without angina pectoris (Chronic) I25.10 Mild Hypothyroidism (Chronic) E03.9 COPD (chronic obstructive pulmonary disease) (Chronic) J44.9 Hyperlipidemia (Chronic) E78.5 Type 2 diabetes mellitus (Chronic) E11.9 Anemia D64.9 CVA (cerebral vascular accident) I63.9 Depression F32.9 Osteoarthritis M19.90 Allergies codeine Allergy (Severe, Verified 07/20/18 08:52) HEART ATTACK levofloxacin [From Levaquin] Allergy (Severe, Verified 07/20/18 08:52) Anaphylaxis Sulfa (Sulfonamide Antibiotics) Allergy (Unknown, Verified 07/20/18 08:52) Unknown adhesive tape Allergy (Verified 07/20/18 08:52) Other citalopram Allergy (Verified 07/20/18 08:52) Unknown Latex, Natural Rubber Allergy (Verified 07/20/18 08:52) Rash Penicillins Allergy (Verified 07/20/18 08:52) Rash acetaminophen [From Vicodin] Adverse Reaction (Verified 07/20/18 08:52) Chest tightness hydrocodone bitartrate [From Vicodin] Adverse Reaction (Verified 07/20/18 08:52) Chest tightness Home Medications: Ambulatory Orders Medication Instructions Recorded Levothyroxine [Synthroid] 25 mcg PO DAILY@0600 05/23/16 Meloxicam [Mobic] 15 mg PO QODAY 05/23/16 Surgical History: Surgical History (Last Updated 05/26/18 @ 10:46 by Sofia Allen) History of arthroplasty of right hip Z96.641 History of back surgery Z98.890 Lumbar Disc History of left hip replacement Z96.642 History of total bilateral knee replacement Z96.653 History of hysterectomy Z90.710 History of tonsillectomy Z90.89 Surgical History: hysterectomy, total hip arthroplasty, - - Fractured femur, bilateral knee surgeries and bilateral hip surgeries Psychiatric History: 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 [facility] Smoking Status: Never smoker Tobacco Use: Non-smoker Alcohol: None Drugs: None - *Family History Maternal Family History: Family History (Last Updated 05/26/18 @ 10:48 by Sofia Allen) Mother Diabetes Brother Atrial fibrillation Brother Diabetes Sister Diabetes History Items: Diabetes Paternal Family History: Family History (Last Updated 05/26/18 @ 10:48 by Sofia Allen) Mother Diabetes Brother Atrial fibrillation Brother Diabetes Sister Diabetes History Items: Diabetes, Heart Disease Review of Systems Unable to obtain accurate/complete ROS d/t: Patient is lethargic, sedated from surgery VTE Information - Inpt Only VTE Present on Admission: No VTE Pharm Prophylaxis ordered?: Yes Patient Problems: Active and Suspected Problems (Last Reviewed 03/01/18 @ 13:10 by Victoria Fu) Large bowel perforation (Acute) Septic shock (Acute) - Physical Exam General: Alert, Oriented x3, Cooperative, No apparent distress HEENT: Atraumatic, PERRLA, EOMI, Normocephalic, - - Intubated Oral: Dry Mucosa Neck: Supple, No JVD, Negative Carotid Bruits Lungs: Clear to auscultation, Normal air movement Cardiovascular: Regular rate, Regular Rhythm, Normal S1, Normal S2, No murmurs Abdomen: Bowel Sounds Present, Soft, Non Tender, Non-Distended, - - Left-sided colostomy, midline dressing intact, abdomen soft Extremities: No edema Skin: No rashes, No breakdown Musculoskeletal: No Tenderness to Palpation of Joints or Extremities Lymphatic: No Cervical, Supraclavicular, or Inguinal Adenopathy Neurological: Cranial nerves II-XII grossly intact, Neuro grossly intact Psych/Mental Status: Normal Affect, Appropriate Vital Signs Temp Pulse Resp BP Pulse Ox 97.3 F L 88 12 104/67 100 07/20/18 11:04 07/20/18 14:38 07/20/18 14:38 07/20/18 11:04 07/20/18 14:38 Oxygen Flow Rate (L/min) 4 Oxygen Delivery Method Nasal Cannula Weight: 79.3 kg Body Mass Index (BMI) 28.2 Intake and Output for Last 24 Hours Output Total 100 / 100 Balance -100 / -100 Laboratory Tests Past 24 Hrs WBC 4.8 RBC 3.90 L Hgb 12.2 Hct 38.3 MCV 98.2 MCH 31.3 MCHC 31.9 L RDW 14.6 POC Glucose POC Glucose 212 H Assessment/Plan All Active Problems (Last Reviewed 03/01/18 @ 13:10 by Victoria Fu) Large bowel perforation (Acute) Septic shock (Acute) DEMETRA (acute kidney injury) (Acute) Pneumococcal pneumonia (Acute) SVT (supraventricular tachycardia) (Acute) 82 year old F with multiple comorbidities significant for Takusubo cardiomyopathy with SVTs, hypertension, type II DM, resident in a jail who was brought to the emergency room with complaints of confusion and not feeling well as well as being diaphoretic. 1. Septic shock secondary to acute peritonitis secondary to perforated descending colon, status post surgery, on IV Zosyn, vancomycin added by printmaker We will continue to monitor patient's vitals closely 2. Postop day #0 status post exploratory laparotomy, colon resection and end colostomy, on fentanyl drip 3. Acute respiratory failure, patient electively intubated for surgery, kept intubated on account of current septic shock, printmaker consulted. 4. Type II DM, on insulin, n.p.o., will continue with Accu- Cheks every 6 with insulin sliding scale 5. Hypertension, now hypotensive, home medications on hold, will continue to monitor 6. COPD, not in acute exacerbation 7. History of SVT, on Cardizem, metoprolol, will monitor with as needed metoprolol. For now patient is hypotensive, will be monitoring 8. Hypothyroidism, on Synthroid, meds on hold 9. DVT PPx- Heparin SC Code Visit Inpatient E AND M: [id number] Subs Hosp L3 07/20/18 1726 <Electronically signed by Paula Garrido MD> Date Paula Garrido MD Cosigner Signature: Date (if applicable) CC: Paula Garrido MD; Clement Bueno MD Signed BLOOD GASES BY [facility] Collected: 07/20/2018 Status: F Source: GISSEL 3:35 PM [facility] REPOSITORY TYPE CODE TESTS RESULT OUT OF RANGE REFERENCE UNITS LAB L9000.9990 Normal BLD GAS TYPE ART LAB L9001.1000 Normal SITE OTHER LAB L9001.1010 Normal MAKSIM TEST NA LAB L9001.1048 Normal Mode A-C LAB L9001.1050 O2 Normal Delivery Dev Vent LAB L9001.1060 MV Normal 6.00 LAB L9001.1065 Vt Normal 450 LAB L9001.1070 RR Normal 12 LAB L9001.1074 Normal FI02 45 LAB L9001.1076 Normal PEEP 5 LAB L9001.1104 Normal Results To ICU LAB L9001.1105 Normal Time Given 1540 LAB L9001.1110 7.35-7.45 pH Normal - I-STAT 7.35 LAB L9001.1210 35-45 mmHg Normal pCO2 - ISTAT 35.3 LAB L9001.1310 75-100 mmHG Normal PO2 I-STAT 85 LAB L9001.2300 22-26 mmol/L Low HCO3 ISTAT 19.4 LAB L9001.2400 -2 to +2 mmol/L Low BE ISTAT -6 LAB L9001.2415 mmol/L Normal TOTAL CO2 20 ISTAT LAB L9001.2425 95-99 % Normal SO2 ISTAT 96 Performed By: #### L9000.0800 #### [facility] Point of Care [address] [place] [address] CONSULTATION Observed: 07/20/2018 Status: F Source: [place] 3:34 PM [facility] REPOSITORY [facility] Medical Records Department [address] [place] [address] Consultation 07/20/18915 MR#: [id number] Acct: [id number] Name: JIMENEZ WYNN Rep #: [id number] : 1935 82 From: Aurora Young MD PCP: Clement Bueno MD Status: ADM IN Y Location: ICU ICU07-1 Reason for Consult Date of Consultation: 07/20/18 Reason for Consultation: Pneumoperitoneum History of Present Illness: The patient is a 82 year old F presented to the ER from her assisted living due to not feeling well for the past day and not been able to sleep. Patient is accompanied by her family. Patient and her family denies any nausea/vomiting/complains of abdominal pain. Patient states she has had a normal bowel movement denies any blood. Patient had a chest x-ray which questions whether there is pneumoperitoneum. Her white blood count within normal limits but she does have a left shift with also a lactate of 5.9 and acute kidney injury with a creatinine of 2.35. She was initially hypotensive and has been getting boluses of fluid in the ER and has been responding. Patient does have past medical history for SVT, diabetes and history of stroke about 2 years ago with continued deficit of speech. Per the family she lives in the assisted living and she is able to get around with a walker. Past Medical History Past Medical History (Chronic Problems): Chronic Problems (Last Reviewed 03/01/18 @ 13:10 by Victoria Fu) Takotsubo cardiomyopathy (Chronic) Nonrheumatic tricuspid (valve) insufficiency (Chronic) Atherosclerotic heart disease of [place] coronary artery without angina pectoris (Chronic) Mild Hypothyroidism (Chronic) COPD (chronic obstructive pulmonary disease) (Chronic) Hyperlipidemia (Chronic) Type 2 diabetes mellitus (Chronic) Medical History: Medical History (Last Reviewed 03/01/18 @ 13:10 by Victoria Fu) Takotsubo cardiomyopathy (Chronic) I51.81 Nonrheumatic tricuspid (valve) insufficiency (Chronic) I36.1 Atherosclerotic heart disease of [place] coronary artery without angina pectoris (Chronic) I25.10 Mild Hypothyroidism (Chronic) E03.9 COPD (chronic obstructive pulmonary disease) (Chronic) J44.9 Hyperlipidemia (Chronic) E78.5 Type 2 diabetes mellitus (Chronic) E11.9 Anemia D64.9 CVA (cerebral vascular accident) I63.9 Depression F32.9 Osteoarthritis M19.90 Allergies codeine Allergy (Severe, Verified 07/20/18 08:52) HEART ATTACK levofloxacin [From Levaquin] Allergy (Severe, Verified 07/20/18 08:52) Anaphylaxis Sulfa (Sulfonamide Antibiotics) Allergy (Unknown, Verified 07/20/18 08:52) Unknown adhesive tape Allergy (Verified 07/20/18 08:52) Other citalopram Allergy (Verified 07/20/18 08:52) Unknown Latex, Natural Rubber Allergy (Verified 07/20/18 08:52) Rash Penicillins Allergy (Verified 07/20/18 08:52) Rash acetaminophen [From Vicodin] Adverse Reaction (Verified 07/20/18 08:52) Chest tightness hydrocodone bitartrate [From Vicodin] Adverse Reaction (Verified 07/20/18 08:52) Chest tightness Home Medications: Ambulatory Orders Medication Instructions Recorded Levothyroxine [Synthroid] 25 mcg PO DAILY@0600 05/23/16 Meloxicam [Mobic] 15 mg PO QODAY 05/23/16 Surgical History: Surgical History (Last Updated 05/26/18 @ 10:46 by Sofia Allen) History of arthroplasty of right hip Z96.641 History of back surgery Z98.890 Lumbar Disc History of left hip replacement Z96.642 History of total bilateral knee replacement Z96.653 History of hysterectomy Z90.710 History of tonsillectomy Z90.89 Surgical History: hysterectomy, total hip arthroplasty, - - Fractured femur, bilateral knee surgeries and bilateral hip surgeries Psychiatric History: No pertinent psych hx Smoking Status: Never smoker - *Family History Maternal Family History: Family History (Last Updated 05/26/18 @ 10:48 by Sofia Allen) Mother Diabetes Brother Atrial fibrillation Brother Diabetes Sister Diabetes History Items: No pertinent history Paternal Family History: Family History (Last Updated 05/26/18 @ 10:48 by Sofia Allen) Mother Diabetes Brother Atrial fibrillation Brother Diabetes Sister Diabetes History Items: No pertinent history Review of Systems Constitutional: Denies: Chills, Fever Cardiovascular: Denies: Chest Pain Gastrointestinal: Denies: Abdominal Pain, Nausea, Vomiting Patient Problems: Active and Suspected Problems (Last Reviewed 03/01/18 @ 13:10 by Victoria Fu) Large bowel perforation (Acute) Septic shock (Acute) - Physical Exam General: Alert, Cooperative, No apparent distress Cardiovascular: Regular rate Abdomen: Soft, Distended - mild, Tender - Diffusely tender may be more so in the upper abdomen, some voluntary guarding, no rebound, - - Previous well-healed lower midline incision Extremities: No clubbing, No cyanosis, Edema - mild Skin: No rashes Neurological: Slurred Speech - Secondary to previous stroke 2 years ago Psych/Mental Status: Appropriate Vital Signs Temp Pulse Resp BP Pulse Ox 98.7 F 81 20 H 103/58 L 98 07/20/18 08:50 07/20/18 09:12 07/20/18 09:12 07/20/18 09:12 07/20/18 09:12 Oxygen Flow Rate (L/min) 2 Oxygen Delivery Method Nasal Cannula Weight: 174 lb 13.225 oz Body Mass Index (BMI) 28.2 Laboratory Tests Past 24 Hrs WBC RBC Hgb Hct MCV MCH MCHC RDW RDW Differential Plt Count Assessment/Plan All Active Problems (Last Reviewed 03/01/18 @ 13:10 by Victoria Fu) Large bowel perforation (Acute) Septic shock (Acute) DEMETRA (acute kidney injury) (Acute) Pneumococcal pneumonia (Acute) SVT (supraventricular tachycardia) (Acute) 82-year-old female with pneumoperitoneum, hypotension, history of COPD, diabetes 1. Discussed with patient and her son and daughter CT abdomen pelvis did show some inflammation near the left colon likely site of perforation causing the free air. Patient has been hypotensive in the ER has been getting boluses of fluid which initially responds and then goes back to being hypotensive again. The ER is pending and a central line currently. The patient and her son and daughter are agreeable to surgery. Discussed would be exploratory laparoscopic, possible laparotomy, possible bowel resection, possible stoma. Discussed with the family that patient may be on the ventilator after surgery and would definitely be in the ICU. Also discussed that likely she would have stoma after surgery due to all the hard stool that she has in the right side of her colon re-anastomosis may cause possible leak due to the hard stool in right colon. Patient and her family are agreeable to full code during the surgery; however normally it seems that she is DNR CCA. Patient family had no further questions at this time. Patient did receive clindamycin 900 as well as aztreonam due to patient allergies. ER physician did talk to Dr. Lemon who is aware of the patient and she would be going to the ICU. Addendum: Patient was started on Levophed 5 mcg. Discussed with family and patient that I would not be doing laparoscopy and would just proceed with exploratory laparotomy to hopefully limit her time under general anesthesia. Also reviewed risks including not limited to bleeding, infection, injury to another organ, patient remains on Levophed she may have issues with perfusion to her stoma, patient may continue to be intubated after surgery, and anesthesia. Aurora Young M.D. Pager: [phone] [facility] [address] [place] [address], [address] [place] [address] Office: [phone] 07/20/18 3788 <Electronically signed by Aurora Young MD> Date Aurora Young MD Cosigner Signature (if applicable): Date CC: Juan Jose Lemon MD; Clement Bueno MD Signed CBC-COMPLETE BLOOD CNT Collected: 07/20/2018 Status: F Source: [place] NO DIFF 2:50 PM [facility] REPOSITORY TYPE CODE TESTS RESULT OUT OF RANGE REFERENCE UNITS LAB L100.1000 4.4-11.0 K/mm3 Normal WBC 4.8 LAB L100.1200 4.2-5.4 M/mm3 Low RBC 3.90 LAB L100.1300 12.0-15.0 g/dl Normal HGB 12.2 LAB L100.1400 37-47 % Normal HCT 38.3 LAB L100.1500 81-99 fL Normal MCV 98.2 LAB L100.1600 27.0-32.0 pg Normal MCH 31.3 LAB L100.1700 32-36 g/gl Low MCHC 31.9 LAB L100.1810 11.6-14.6 % Normal RDW CV 14.6 LAB L100.1820 35.1-43.9 fl High RDW SD 52.0 LAB L100.1900 150-450 K/mm3 Normal PLT 228 LAB L100.2000 6.2-12.0 fl Normal MPV 8.8 Performed By: #### L100.0500 #### [facility] [address] [place], [address] BASIC METABOLIC Collected: 07/20/2018 Status: F Source: [place] PROFILE (BMP) 2:50 PM [facility] REPOSITORY TYPE CODE TESTS RESULT OUT OF RANGE REFERENCE UNITS LAB L501.0100 74-106 mg/dL High GLU 241 Result Comment: Glucose result greater than or equal to 200 mg/dL suggests DIABETES MELLITUS per A.D.A. criteria. Please note revised GLUCOSE reference range effective 2017. LAB L501.1000 7-18 mg/dL High BUN 28 LAB L501.1100 0.55-1.02 mg/dL High CREAT,SERUM 1.64 Result Comment: The validity of the calculated GFR AND GFRAA in patients over 70 years has not been determined. Clinical correlation is essential. LAB L501.1110 >60 mL/min Low EST GFR 32 Result Comment: Non- GFR Calc LAB L501.1115 >60 mL/min Low EST GFR - AA 39 Result Comment: GFR Calc LAB L501.1255 ml/min Normal Estimated CRCL 25.19 LAB L501.1300 10-20 RATIO Normal BUN/CRE 17.1 LAB L501.2200 8.5-10 mg/dL Low .1 CA 7.1 LAB L501.5300 136-14 mmol/L Normal 5 NA 140 LAB L501.5600 3.5-5. mmol/L High 1 K 5.4 LAB L501.5900 98-107 mmol/L High CL 109 LAB L501.6100 21.0-3 mmol/L Low 2.0 CO2 20.0 LAB L501.6200 5-15 Normal GAP 11 Performed By: #### L500.2500 #### [facility] [address] [place], [address] LACTIC ACID Collected: 07/20/2018 Status: F Source: [place] 2:50 PM [facility] REPOSITORY TYPE CODE TESTS RESULT OUT OF REFERENCE UNITS RANGE LAB L503.6005 0.4-2.0 mmol/L High LACTIC ACID 3.3 Result Comment: Critical Result(s) Called at: 15:32:16 07/20/2018 by: Nataly BOWEN Performed By: #### L503.6005 #### [facility] [address] [place], [place], [address] CPK TOTAL, CREATINE Collected: 07/20/2018 Status: F Source: [place] KINASE 2:50 PM [facility] REPOSITORY Order Comment: Comments: DC when propofol is d/c'd Comments: DC when propofol is d/c'd TYPE CODE TESTS RESULT OUT OF RANGE REFERENCE UNITS LAB L501.3620 26-192 U/L Normal CPK TOTAL 63 Performed By: #### L501.3620, L501.5000 #### [facility] [address] [place], [address] TRIGLYCERIDES Collected: 07/20/2018 Status: F Source: [place] 2:50 PM [facility] REPOSITORY Order Comment: Comments: DC when propofol is d/c'd Comments: DC when propofol is d/c'd TYPE CODE TESTS RESULT OUT OF RANGE REFERENCE UNITS LAB L501.5000 mg/dL Normal TRIG 67 Result Comment: The drugs N-Acetylcysteine and Metamizole may falsely depress this assay. Serum Triglycerides Reference Interval Normal <150 mg/dL Borderline high 150 - 199 mg/dL High 200 - 499 mg/dL Very High > or = 500 mg/dL Performed By: #### L501.3620, L501.5000 #### [facility] [address] [place], [address] CHEST 1 VIEW Observed: 07/20/2018 Status: F Source: [place] (PORTABLE) 2:24 PM [facility] REPOSITORY [facility] Imaging Services [address] [place] [address] Chest 1 View (Portable) MR#: [id number] Acct: [id number] Name: JIMENEZ WYNN Rep #: [id number] : 1935 F 82 From: Jourdan De La Fuente MD PCP: Clement Bueno MD Status: ADM IN Study: Chest 1 View (Portable) Date of Exam: 07/20/18 Exam# [id number] Ordering Dr: Juan Jose Lemon MD STUDY: X-RAY CHEST REASON FOR EXAM: Female, 82 years old. Endotracheal tube and orogastric tube placement. TECHNIQUE: Single AP portable view of the chest. COMPARISON: Comparison is made with prior examination done earlier today at 10:46 AM. FINDINGS: The tip of the endotracheal tube is at 3.3 cm proximal to the shena. An oral gastric tube is seen with the tip in the body of the stomach. A right-sided internal jugular venous catheter is seen with the tip in the right atrium. EKG electrodes are seen. Increased markings at the lung bases likely worse on the left side in keeping with bibasilar atelectasis. Blunting of left costophrenic angle. There is borderline cardiomegaly. Normal mediastinum and aruna. Normal visualized pulmonary arteries. There is atherosclerotic calcification of the aortic arch with tortuosity. There are diffuse degenerative changes of the visualized thoracic spine. There is degenerative osteoarthritis of the bilateral shoulders. There is no demonstrated abnormality of the visualized soft tissue structures of the upper abdomen. RAD/Chest 1 View (Portable) IMPRESSION: All the side port tubes are in good position. Stable increased markings at the lung bases suggesting bibasilar atelectasis. Electronically Signed: Jourdan De La Fuente MD at 14:55 EDT Tel [phone], Service support , CC: Juan Jose Lemon MD; Clement Bueno MD Sales Manager: Signed Observed: 07/20/2018 Status: F Source: [place] CULTURE, DEEP WOUND 12:10 PM [facility] REPOSITORY Order Date: 06/03/17 Comments: Peritoneal Fluid Gram Stain Gram Stain 1+ Red Blood Cells 3+ White Blood Cells 1+ Gram negative rods Rare Gram positive rods Wound Culture * This is an amended result. * A prior result that was reported as final has been changed. 07/23/18 0823 by TIARRA Previously reported as: FINAL, POSSIBLE #2 ORGANISM * This is an amended result. * ORGANISM 1: Escherichia coli Amount Growth 2+ ORGANISM 2: Acinetobacter spp Escherichia coli: REACTION Amoxacillin/Clavulanic Acid $ <=2 S Ampicillin $ <=2 S Ampicillin/Sulbactam $ <=2 S Cefazolin $ <=4 S Cefepime $ <=1 S Ceftriaxone $ <=1 S Ciprofloxacin $ <=0.25 S ESBL - Ertapenim $$$ <=0.5 S Gentamicin $ <=1 S Imipenem *NF <=0.25 S Levofloxacin $ 0.25 S Piperacillin/Tazobactam $$ <=4 S Tobramycin $ <=1 S Trimethoprim/Sulfametho $ <=20 S (NF) indicates non-formulary drug at [facility]. Approval by Infectious Disease Specialist required before non-formulary drugs may be ordered and/or dispensed. Acinetobacter spp: REACTION Cefepime $ 2 S Ceftazidime *NF 4 S Ceftriaxone $ 16 I Ciprofloxacin $ <=0.25 S Gentamicin $ <=1 S Imipenem *NF 0.5 S Levofloxacin $ <=0.12 S Tobramycin $ <=1 S Trimethoprim/Sulfametho $ 80 R (NF) indicates non-formulary drug at [facility]. Approval by Infectious Disease Specialist required before non-formulary drugs may be ordered and/or dispensed. Cult, Anaerobic #1,2 Studies Have Confirmed That B. Fragilis Group are Routinely Susceptible to: Metronidazole, Piperacillin/Tazobactam, Tigecycline, Ertapenem, Imipenem, Meropenem and variable in resistance to: Clindamycin, Moxifloxacin, Cefoxitin and Ampicillin/Sulbactam. #3 Studies have confirmed that Anaerobic Gram Positive Cocci are routinely susceptible to: Penicillin/Ampicillin, Ampicillin/Sulbactam, Piperacillin/Tazobactam, Cefoxatin, Ertapenem, Imipenem, Meropenem and Metronidazole and vary in resistance to: Clindamycin and Moxifloxacin. Copy of report sent to Infection Control Printer [id number] 07/24/18 1040 BLADIMIR. RESULTS CALLED TO NAOMI MACIAS 07/24/18 1040 Lisbeth Choe.REPORT READ BACK BY SAME. ORGANISM 1: Bacteroides thetaiotaomicron ORGANISM 2: Bacteroides caccae ORGANISM 3: Anaerobic cocci Performed By: #### M100.1500 #### [facility] [address] [place], [address] BEDSIDE GLUCOSE Collected: 07/20/2018 Status: F Source: [place] 11:02 AM [facility] REPOSITORY TYPE CODE TESTS RESULT OUT OF REFERENCE UNITS RANGE LAB L501.080 70-110 mg/dL High BEDSIDE GLU 212 Result Comment: MANAGEMENT OF PATIENT CARE PER NURSING PROTOCOL Performed By: #### L501.080 #### [facility] Point of Care [address] [place] [address] COLON (NO NEOPLASM) Observed: 07/20/2018 Status: F Source: [place] 10:30 AM [facility] REPOSITORY Patient: JIMENEZ WYNN : 1935 (82/F) Acct Num: [id number] Phys: Paula Garrido MD Unit Num: [id number] Loc: ICU ICU07-1 Specimen: [id number] Received: 07/21/18 1006 Spec Type: COLON TISSUES TISSUES: Colon, NOS GROSS DESCRIPTION Received in fixative is one container labeled with the patient's name and designated left colon and omentum, suture marking distal. The specimen consists of a segment of colon with attached pericolonic adipose tissue measuring 25 cm in length. Both resection margins are stapled. The distal margin is identified by a suture. 7 cm away from the distal resection margin an area of perforation is noted measuring 4 x 3 cm. No other mucosal lesion is identified. The lumen is filled with solid fecal material. Also present in the container is a piece of adipose tissue consistent with omentum measuring 15 x 8 x 2 cm. Sections of omentum do not reveal any mass lesion. Sections will be submitted after overnight fixation. / GERALDINE:mac 07/21/18 Sections of pericolonic adipose tissue do not reveal any obviously enlarged lymph node. Swing Type Lathe Operator sections are submitted in six cassettes as follows: 1 omentum, 2 proximal and distal resection margin, distal resection margin is inked black, 3 AND 4 area of perforation, 5 - account retention representative sections from the other area, 6 pericolonic adipose tissue. / GERALDINE:mac 07/22/18 TC:5 CPT: 14746 HEADER OPERATION: Exploratory laparotomy, colon resection, colostomy creation PRE-OP DIAGNOSIS: Pneumoperitoneum TISSUE SUBMITTED: Left colon, omentum, suture marking distal MICROSCOPIC DESCRIPTION Slides are reviewed. MICROSCOPIC DIAGNOSIS Left colon and omentum, colectomy: Segment of colon with area of perforation with associated hemorrhage and inflammation. Omentum with focal mild congestion. GERALDINE:mac 07/23/18 Signed Jeffrey Ryan 07/23/18 <signature on file> Performed By: #### PCOL #### [facility] [address] [place], [address] EMERGENCY DEPARTMENT Observed: 07/20/2018 Status: F Source: [place] SUMMARY 10:27 AM [facility] REPOSITORY [facility] Medical Records Department [address] [place] [address] Emergency Department Summary 07/20/18 0812 MR#: [id number] Acct: [id number] Name: JIMENEZ WYNN Rep #: [id number] : 1935 82 From: Matias Cortes MD PCP: Clement Bueno MD Status: ADM IN ADDENDUM by Matias Cortes MD on 07/20/18 at 1027 I was asked to place a central line by Dr. Aurora Young. Children who are POA signed consent. Initial attempt at subclavian since carotid pulse was not palpable was unsuccessful. With the assistance of Zander the right internal jugular line was cannulated successfully on first attempt. Using Seldinger technique a 7.5 Kazakh tube was placed. Portal chest x-ray was ordered to evaluate and rule out pneumothorax and for line placement. Levophed was ordered since patient remains hypotensive in spite of fluid bolus. OR has been contacted and informed that the central line has been placed. The children were informed of risk benefits of the central line and indication for the central line. They were given opportunity ask questions and none were asked. Timeout was called and attempt at right subclavian line was unsuccessful and aborted. Right internal jugular line was placed successfully. Blood was aspirated from all 3 ports. Date Matias Cortes MD cc: Clement Bueno MD; Aurora Young MD * Signed - ER Visit Summary Date of Service: 07/20/18 Chief Complaint: Patient presents from jail because of confusion and not feeling History of Present Illness: The patient is a 82 F who states I feel like she had . Patient denies every question asked except weakness and not feeling well. Paperwork that accompanied her from jail was reviewed and there is no new medication that would explain her confusion or hypotension. Physical Examination: Initial blood pressure 87/58 temperature 96.9. She is not hypoxic. She appears pale. HEENT is remarkable for dry mucosa. She has a facial droop on the right, which is old according to son. He arrived after initial history and physical. Lungs are clear to auscultation. Heart is regular. Abdomen is soft nontender. She has mild edema both lower extremities. Carotid and femoral pulses palpable. Diminished radial pulse and absent DP and PT pulse. She is alert but disoriented. She laughs inappropriately. Motor sensory intact. DTRs are 1+ and symmetric. She withdraws to Babinski testing. Test Results: EKG reveals a sinus rhythm rate 86 with left ear anterior fascicular block. There is evidence of LVH. There is a flipped T-wave in lead III which is a normal variant. Portable upright chest x-ray reveals free air under the right hemidiaphragm. I was contacted by Dr. Jimenez who was concerned this may represent free air. Recommended decubitus film. Decubitus film confirms pneumoperitoneum. CBC is unremarkable. Electrolyte panel is remarkable for glucose of 222 and a BUN creatinine of 27 and 2.35 respectively. Troponin is less than 0.015. Lactate is 5.9. Emergency Department Course and Treatment: Since patient is hypothermic and hypotensive infectious workup was undertaken. This also may be a drug related issue or metabolic. Blood cultures were ordered. A temperature probe Benitez was placed for accurate temperature as well as I's and O's. She will receive a 30 cc/kg bolus of normal saline. Dr. Hannah was contacted and is presently seeing patient. Because of her antibiotic allergies she will receive 900 mg of clindamycin and Azactam. Nurse was asked to place a second line. Radiology suite was contacted since Dr. sauer and requested a CT of the abdomen pelvis without contrast to further delineate the cause of the pneumoperitoneum. Dr. Juan Jose Lemon who is on duty for ICU admissions was made aware the patient. Critical care time 37 minutes Treatment Plan: Surgical intervention to OR and treat for septic shock Disposition: To OR then ICU Impression: 1. Septic shock 2. Acute kidney injury 3. Pneumoperitoneum 4. Hyperglycemia This note was generated with Connect dictation software. It may contain incorrect words, spelling, and punctuation that were not noted in review of the chart prior to signing ED Disposition - Plan for ED Patient: Chief Complaint: Weakness What to do if you have Problems For any increased pain, shortness of breath, bleeding, nausea or vomiting, chest pain, or any unexpected problems, contact your Primary Care Provider. Call [facility] ([phone]) or report to the closest Emergency Room. Call 911 if necessary. 07/20/18 0934 <Electronically signed by Matias Cortes MD> Date Matias Cortes MD Cosigner Signature (If Indicated): Date CC: Clement Bueno MD; Aurora Young MD CXR FOR LINE PLACEMENT Observed: 07/20/2018 Status: F Source: [place] 10:26 AM [facility] REPOSITORY [facility] Imaging Services [address] [place] [address] CXR for Line Placement MR#: [id number] Acct: [id number] Name: JIMENEZ WYNN Rep #: [id number] : 1935 F 82 From: Jourdan De La Fuente MD PCP: Clement Bueno MD Status: ADM IN Study: CXR for Line Placement Date of Exam: 07/20/18 Exam# [id number] Ordering Dr: Matias Cortes MD STUDY: X-RAY CHEST REASON FOR EXAM: Female, 82 years old. Line placement. TECHNIQUE: Single AP portable view of the chest. COMPARISON: Comparison is made with prior study done earlier in the day. FINDINGS: A right-sided internal jugular venous catheter has been placed. The tip is in the right atrium. EKG like to proceed. Increased linear markings at the lung bases suggestive of either scarring and/or atelectasis. There is no demonstrated pleural abnormality. There is mild cardiac enlargement. Normal mediastinum and aruna. Normal visualized pulmonary arteries. There is atherosclerotic calcification of the aortic arch with tortuosity. Normal visualized thoracic spine. There is degenerative osteoarthritis of the bilateral shoulders. There is no demonstrated abnormality of the visualized soft tissue structures of the upper abdomen. RAD/CXR for Line Placement IMPRESSION: The tip of the right internal jugular venous catheter is in the right atrium. Increased markings at the lung bases suggestive bibasilar atelectasis and/or scarring. Electronically Signed: Jourdan De La Fuente MD at 12:15 EDT Tel [phone], Service support , CC: Clement Bueno MD; Matias Cortes MD Sales Manager: Signed Observed: 07/20/2018 Status: F Source: [place] CULTURE, BLOOD (WB) 9:45 AM [facility] REPOSITORY ANAEROBIC BOTTLE GRAM STAIN= ANAEROBIC GRAM NEGATIVE JUSTICE AEROBIC BOTTLE: No growth in 5 DAYS. RESULTS CALLED TO KVNG 07/21/18 1251 Debi Sanabria. REPORT READ BACK BY [facility]. Studies Have Confirmed That Clostridium perferingens is routinely susceptible to: Ampicillin/Sulbactam, Piperacillin/Tazobactam, Cefoxitin, Ertapenem, Imipenem, Meropenem, Penicillin/Ampicillin, Moxifloxacin, Clindamycin and Metronidazole. Clostridium species other than C. perferingens are variable in resistance to: Cefoxitin, Clindamycin, Moxifloxacin, imipenem and Penicillin/Ampicillin. RESULTS CALLED TO MARNI DE LA O 07/23/18 1449 Brandi Estrella. REPORT READ BACK BY [facility]. ORGANISM 1: Clostridium clostridioforme Amount Growth Growth Performed By: #### M200.1000 #### [facility] [address], [address] ABDOMEN/PELVIS WITHOUT Observed: 07/20/2018 Status: F Source: [place] CONT 8:55 AM [facility] REPOSITORY [facility] Imaging Services [place] [address] Abdomen/Pelvis without Cont MR#: [id number] Acct: [id number] Name: JIMENEZ WYNN Rep #: [id number] : 1935 F 82 From: Jourdan De La Fuente MD PCP: Clement Bueno MD Status: ADM IN Study: Abdomen/Pelvis without Cont Date of Exam: 07/20/18 Exam# [id number] Ordering Dr: Matias Cortes MD STUDY: CT ABDOMEN AND PELVIS WITHOUT CONTRAST REASON FOR EXAM: Female, 82 years old. Weakness. Free intraperitoneal air. RADIATION DOSAGE (If Supplied By Facility): CTDIvol = ( 16 ) mGy, DLP = ( 775.35 ) mGycm TECHNIQUE: Transaxial images were obtained from the dome of the diaphragm to the symphysis pubis without oral contrast, and without intravenous contrast. Sagittal and coronal images were reconstructed. Individualized dose optimization techniques were used for this CT. COMPARISON: Comparison is made with prior study dated August 29, 2016. FINDINGS: Increased markings at the lung bases with areas of confluence suggestive of bibasilar atelectasis. The visualized portions of the heart are within normal limits. There is evidence of free intraperitoneal air. There is also evidence of free air in the retroperitoneum as well as in the region of the kma hepatis and left paracolic gutter. Small amount of the perihepatic fluid. Normal gallbladder and extrahepatic biliary system. There are multiple benign calcified granulomata of the spleen. There is diffuse atrophy of the pancreas. Normal bilateral adrenal glands. Normal right kidney. There is a 2.8 cm x 2.5 cm cyst in the upper midportion of the left kidney. Normal visualized stomach. Normal small intestine. Moderate amount of fecal material is seen within the colon. There is evidence of a sigmoid diverticulosis. Loculated free air is seen along the mesenteric surface of the descending colon and sigmoid colon. A small amount of fluid is seen at that level with increased markings in the surrounding peritoneal fat. This may represent the area of perforation. The appendix is visualized and appears normal. There is diffuse atherosclerotic calcification of the abdominal aorta, without a demonstrated aneurysm. Normal inferior vena cava. Normal retroperitoneum. Normal urinary bladder. There is absence of the uterus consistent with a prior hysterectomy. There is a small umbilical hernia containing fat. There are diffuse degenerative changes of the visualized lumbar spine. Status post bilateral total hip replacement causing limited view of the pelvis due to beam hardening artifacts. CT/Abdomen/Pelvis without Cont IMPRESSION: Free intraperitoneal air as well as retroperitoneal air. Sigmoid diverticulosis and possible perforation of the sigmoid colon Bibasilar atelectasis. Stable left renal cyst. Electronically Signed: Jourdan De La Fuente MD at 9:38 EDT Tel [phone], Service support , CC: Clement Bueno MD; Matias Cortes MD Sales Manager: Signed CHEST 1 VIEW Observed: 07/20/2018 Status: F Source: [place] (PORTABLE) 8:27 AM [facility] REPOSITORY [facility] Imaging Services [address] [place] [address] Chest 1 View (Portable) MR#: [id number] Acct: [id number] Name: JIMENEZ WYNN Rep #: [id number] : 1935 F 82 From: Jourdan De La Fuente MD PCP: Clement Bueno MD Status: REG ER Study: Chest 1 View (Portable) Date of Exam: 07/20/18 Exam# [id number] Ordering Dr: Matias Cortes MD STUDY: X-RAY CHEST REASON FOR EXAM: Female, 82 years old. Abdominal pain. Evaluation for free intraperitoneal air. TECHNIQUE: Left side down decubitus view COMPARISON: Comparison is made with prior chest radiograph done earlier today. FINDINGS: There is evidence of free intraperitoneal air. RAD/Chest 1 View (Portable) IMPRESSION: Free intraperitoneal air. The referring physician was notified. Electronically Signed: Jourdan De La Fuente MD at 9:15 EDT Tel [phone], Service support , CC: Clement Bueno MD; Matias Cortes MD Sales Manager: Signed URINALYSIS, COMPLETE Collected: 07/20/2018 Status: F Source: FIREBAUGH 8:25 AM [facility] REPOSITORY Order Comment: Microscopic field is filled. Other elements may be obscured. Has pt arrived? Y How was Urine Obtained? TENNIS BALL COVER CEMENTER TO SPECIFY TYPE CODE TESTS RESULT OUT OF RANGE REFERENCE UNITS LAB L400.3000 Yellow COLOR Normal Yellow LAB L400.3050 Clear Normal CLARITY Cloudy LAB L400.3200 Normal mg/dl Normal GLUCOSE, UR Normal LAB L400.3300 Negative mg/dL High BILIRUBIN URINE 1 Result Comment: COLOR OF URINE MAY AFFECT DIPSTICK RESULTS. LAB L400.3400 Negative mg/dl High KETONE UR 5 LAB L400.3465 1.002-1.030 Normal SP.GR. DIPSTX 1.015 LAB L400.3550 5.0 - 8.0 pH Normal UR 5.0 LAB L400.3600 Negative mg/dl High PROT DIPSTX 100 LAB L400.3700 Normal mg/dl High UROBILI 1 LAB L400.3750 Negative Normal NITRITE UR Negative LAB L400.3780 Negative /ul High OCCULT 50 BLOOD-UR LAB L400.3800 Negative /ul High LEUK ESTERASE 500 LAB L400.4050 0-5 /hpf Normal WBC >100 SEEN Result Comment: Microscopic field is filled. Other elements may be obscured. LAB L400.4100 0-5 /hpf Normal RBC-UA 0-5 SEEN LAB L400.4150 5-10 /hpf Normal SQUAM EPI 0-5 SEEN LAB L400.4300 None Seen /hpf Normal BACTERIA 4+ LAB L400.4350 <or=2+ /hpf Normal MUCUS, URINE RARE Performed By: #### L400.0001 #### [facility] [address] [place], [address] Observed: 07/20/2018 Status: F Source: FIREBAUGH CULTURE, URINE 8:25 AM [facility] REPOSITORY Has pt arrived? Y Urine Culture ORGANISM 1: Presumptive E. coli Frierson Count >100,000 Presumptive E. coli: REACTION Amoxacillin/Clavulanic Acid $ <=2 S Ampicillin $ <=2 S Ampicillin/Sulbactam $ <=2 S Cefazolin $ <=4 S Cefepime $ <=1 S Ceftriaxone $ <=1 S Ciprofloxacin $ <=0.25 S ESBL - Ertapenim $$$ <=0.5 S Gentamicin $ <=1 S Imipenem *NF <=0.25 S Levofloxacin $ <=0.12 S Nitrofurantoin $ <=16 S Piperacillin/Tazobactam $$ <=4 S Tobramycin $ <=1 S Trimethoprim/Sulfametho $ <=20 S (NF) indicates non-formulary drug at [facility]. Approval by Infectious Disease Specialist required before non-formulary drugs may be ordered and/or dispensed. Performed By: #### M100.0650 #### [facility] [place], [address] VENOUS BLOOD GAS Collected: 07/20/2018 Status: F Source: FIREBAUGH 8:19 AM [facility] REPOSITORY TYPE CODE TESTS RESULT OUT OF RANGE REFERENCE UNITS LAB L9000.9990 Normal BLD GAS TYPE MICHAEL LAB L9001.1050 O2 Normal Delivery Dev Room Air LAB L9001.1104 Normal Results To ED LAB L9001.1105 Normal Time Given 818 LAB L9002.1110 7.32-7.42 Normal VBGpH - I-STAT 7.36 LAB L9002.1212 41-51 mmHg Normal VBG pCO2 - 47.1 ISTA LAB L9002.1310 25-40 mmHg Low VBG PO2 I-STAT 23 LAB L9002.2300 22-26 mmol/L High VBG HCO3 ISTAT 27 LAB L9002.2400 -1.0-3.5 mmol/L Normal VBG BE ISTAT 1 LAB L9002.2410 50-70 % Low VBG SO2 ISTAT 37 LAB L9002.2415 23-33 mmol/L Normal VBG O2 CT 28 ISTAT Performed By: #### L9000.0810 #### [facility] [place] [address] CBC W/DIFF, AUTOMATED Collected: 07/20/2018 Status: F Source: GISSEL 8:00 AM [facility] REPOSITORY TYPE CODE TESTS RESULT OUT OF RANGE REFERENCE UNITS LAB L100.1000 4.4-11.0 K/mm3 Normal WBC 8.1 LAB L100.1200 4.2-5.4 M/mm3 Normal RBC 4.43 LAB L100.1300 12.0-15.0 g/dl Normal HGB 13.9 LAB L100.1400 37-47 % Normal HCT 42.8 LAB L100.1500 81-99 fL Normal MCV 96.6 LAB L100.1600 27.0-32.0 pg Normal MCH 31.4 LAB L100.1700 32-36 g/gl Normal MCHC 32.5 LAB L100.1810 11.6-14.6 % Normal RDW CV 14.2 LAB L100.1820 35.1-43.9 fl High RDW SD 50.1 LAB L100.1900 150-450 K/mm3 Normal PLT 298 LAB L100.2000 6.2-12.0 fl Normal MPV 8.9 LAB L100.2100 47-70 % High NEUT% 85.9 LAB L100.2200 19-41 % Low LY% 6.2 LAB L100.2300 0-10 % Normal MONO% 7.3 LAB L100.2400 0-5 % Normal EO% 0.0 LAB L100.2500 0-1 % Normal BASO% 0.2 LAB L100.2550 0.0-0.9 % Normal IM GRAN % 0.400 Result Comment: IG% - Immature Granulocytes (promyelocytes, myelocytes and metamyelocytes) > 1% indicates that a LEFT SHIFT is Present. LAB L100.2620 2.0-7.7 X10 3/uL Normal Absolute Neut 7.0 LAB L100.2720 0.83-4.51 X10 3/ul Low Absolute Lymph 0.50 LAB L100.4500 Normal SMEAR COMMENT COMMENT Result Comment: SLIDE SCANNED - LYMPHOPENIA NOTED. Performed By: #### L100.0100 #### [facility] [address] [place], [address] COMPREHENSIVE METABOLIC Collected: 07/20/2018 Status: F Source: GISSEL PROFIL 8:00 AM [facility] REPOSITORY TYPE CODE TESTS RESULT OUT OF RANGE REFERENCE UNITS LAB L501.0100 74-106 mg/dL High GLU 222 Result Comment: Glucose result greater than or equal to 200 mg/dL suggests DIABETES MELLITUS per A.D.A. criteria. Please note revised GLUCOSE reference range effective 2017. LAB L501.1000 7-18 mg/dL High BUN 27 LAB L501.1100 0.55-1.02 mg/dL High CREAT,SERUM 2.35 Result Comment: The validity of the calculated GFR AND GFRAA in patients over 70 years has not been determined. Clinical correlation is essential. LAB L501.1110 >60 mL/min Low EST GFR 21 Result Comment: Non- GFR Calc LAB L501.1115 >60 mL/min Low EST GFR - AA 26 Result Comment: GFR Calc LAB L501.1255 ml/min Normal Estimated CRCL 17.58 LAB L501.1300 10-20 RATIO Normal BUN/CRE 11.5 LAB L501.1500 6.4-8. g/dL Normal 2 T PROT 6.6 LAB L501.1800 3.2-5. g/dL Low 0 ALB 3.0 LAB L501.1950 2.2-4. g/dL Normal 2 GLOB 3.6 LAB L501.2000 0.9-2. RATIO Low 4 A/G 0.8 LAB L501.2200 8.5-10 mg/dL Normal .1 CA 9.4 LAB L501.4100 15-37 U/L Normal AST 18 LAB L501.4305 45-117 U/L Normal ALK P 101 LAB L501.4405 13-56 U/L Normal ALT 15 LAB L501.4600 0.20-1 mg/dL Normal .00 T BILI 0.70 LAB L501.5300 136-14 mmol/L Normal 5 NA 139 LAB L501.5600 3.5-5. mmol/L Normal 1 K 4.9 LAB L501.5900 98-107 mmol/L Normal CL 99 LAB L501.6100 21.0-3 mmol/L Normal 2.0 CO2 25.0 LAB L501.6200 5-15 Normal GAP 15 Performed By: #### L500.4050, L501.4010 #### [facility] [address] [place], [address] TROPONIN-I Collected: 07/20/2018 Status: F Source: FIREBAUGH 8:00 AM [facility] REPOSITORY TYPE CODE TESTS RESULT OUT OF RANGE REFERENCE UNITS LAB L501.4010 <0.045 ng/mL Normal < 0.015 TROPONIN-I Result Comment: TROPONIN-I EXPECTED VALUES <0.045 Negative 0.045 - 0.590 Consistent with Cardiac Damage > OR = 0.600 Critical Value Not every elevated troponin is indicative of MD. These values should be used with clinical judgement in examining the patient's clinical picture for diagnosis. To establish a diagnosis of MD versus myocardial injury, there must be a demonstrated rise and/or fall in the troponin values, in addition to ischemic symptoms, EKG changes, new regional wall motion abnormality, and/or angiographical evidence. PLEASE NOTE: REFERENCE RANGES EDITED 18 Performed By: #### L500.4050, L501.4010 #### [facility] [address] [place], [address] LACTIC ACID Collected: 07/20/2018 Status: F Source: FIREBAUGH 8:00 AM [facility] REPOSITORY Order Comment: Yes/No query for Sepsis Lactate Rule Y TYPE CODE TESTS RESULT OUT OF REFERENCE UNITS RANGE LAB L503.6005 0.4-2.0 mmol/L High alert LACTIC ACID 5.9 Result Comment: Critical Result(s) Called at: 08:38:50 07/20/2018 by: Lachelle Urban Performed By: #### L503.6005 #### [facility] [address] [place], [address] PROTHROMBIN TIME W/INR Collected: 07/20/2018 Status: F Source: FIREBAUGH 8:00 AM [facility] REPOSITORY TYPE CODE TESTS RESULT OUT OF RANGE REFERENCE UNITS LAB L300.4150 11.7-14.9 SECONDS Normal PROTIME 13.4 LAB L300.4200 Normal INR 1.0 Performed By: #### L300.3900, L300.4310 #### [facility] [address] [place], [address] PARTIAL THROMBOPLAST Collected: 07/20/2018 Status: F Source: GISSEL TIME 8:00 AM [facility] REPOSITORY TYPE CODE TESTS RESULT OUT OF REFERENCE UNITS RANGE LAB L300.4310 24.1-36.2 Seconds Low PTT 23.9 Performed By: #### L300.3900, L300.4310 #### [facility] [address] [place], [address] Observed: 07/20/2018 Status: F Source: GISSEL CULTURE, BLOOD (WB) 8:00 AM [facility] REPOSITORY BC No growth in 5 days. Performed By: #### M200.1000 #### [facility] [address] [place], [address] CHEST 1 VIEW Observed: 07/20/2018 Status: F Source: GISSEL (PORTABLE) 7:58 AM [facility] REPOSITORY [facility] Imaging Services [address] [place] [address] Chest 1 View (Portable) MR#: [id number] Acct: [id number] Name: JIMENEZ WYNN Rep #: [id number] : 1935 F 82 From: Jourdan De La Fuente MD PCP: Clement Bueno MD Status: REG ER Study: Chest 1 View (Portable) Date of Exam: 07/20/18 Exam# [id number] Ordering Dr: Matias Cortes MD STUDY: X-RAY CHEST REASON FOR EXAM: Female, 82 years old. Hypothermia. Sepsis. TECHNIQUE: Single AP portable view of the chest. COMPARISON: Comparison is made with prior examination dated May 08, 2018. FINDINGS: EKG electrodes are seen. Increased linear markings at the lung bases suggestive of early atelectasis and possible scarring. Blunting of the left costophrenic angle. There is mild cardiac enlargement. Normal mediastinum and aruna. Normal visualized pulmonary arteries. There is atherosclerotic calcification of the aortic arch with tortuosity. There are diffuse degenerative changes of the visualized thoracic spine. There is degenerative osteoarthritis of the bilateral shoulders. Questionable free intraperitoneal air. I recommend a right side up lateral decubitus view for further assessment. RAD/Chest 1 View (Portable) IMPRESSION: Findings suggestive of underlying atelectasis and/or scarring at the lung bases. Questionable free air beneath the right hemidiaphragm. A right side up decubitus view is recommended for further evaluation. Electronically Signed: Jourdan De La Fuente MD at 8:36 EDT Tel [phone], Service support , CC: Clement Bueno MD; Matias Cortes MD Sales Manager: Signed LIPID PROFILE Collected: 07/07/2018 Status: F Source: FIREBAUGH 6:20 AM [facility] REPOSITORY Order Comment: ROOM 204 TYPE CODE TESTS RESULT OUT OF RANGE REFERENCE UNITS LAB L501.4900 200 mg/dL Normal CHOL 105 Result Comment: <200 mg/dL Desirable 200-240 mg/dL Borderline >240 mg/dL High Risk LAB L501.5000 mg/dL Normal TRIG 61 Result Comment: The drugs N-Acetylcysteine and Metamizole may falsely depress this assay. Serum Triglycerides Reference Interval Normal <150 mg/dL Borderline high 150 - 199 mg/dL High 200 - 499 mg/dL Very High > or = 500 mg/dL LAB L501.6400 mg/dL Normal HDL 65 Result Comment: The drugs N-Acetylcysteine and Metamizole may falsely depress this assay. Reference Range HDL <40 mg/dL Low HDL Cholesterol HDL >or= 60 mg/dL High HDL Cholesterol LAB L501.6500 0-130 mg/dL Normal LDL 28 LAB L501.6600 5-40 mg/dL Normal VLDL 12 Performed By: #### L500.4100 #### [facility] [place], [address] HEMOGLOBIN A1C Collected: 07/07/2018 Status: F Source: GISSEL 6:20 AM [facility] REPOSITORY Order Comment: ROOM 204 TYPE CODE TESTS RESULT OUT OF RANGE REFERENCE UNITS LAB L501.9985 4.2-6.3 % High HGB A1C 10.0 Performed By: #### L501.9985 #### [facility] [address] [place], [place], [address] VITAMIN D,25 HYDROXY Collected: 07/07/2018 Status: F Source: GISSEL 6:20 AM [facility] REPOSITORY Order Comment: ROOM 204 TYPE CODE TESTS RESULT OUT OF RANGE REFERENCE UNITS LAB L506.1000 29.95-100.01 ng/mL Normal Vitamin D 39.8 25-OH Result Comment: Vitamin D 25(OH) Status Range Deficiency <20 ng/mL (50nmol/L) Insuffciency 20 - 30 ng/mL (50 - 75 nmol/L) Sufficiency 30 - 100 ng/mL (75 - 250 nmol/L) Toxicity >100 ng/mL (>250 nmol/L) Performed By: #### L506.1000 #### [facility] [address] [place], [place], [address] LIVER PROFILE Collected: 06/09/2018 Status: F Source: GISSEL 6:20 AM [facility] REPOSITORY Order Comment: 204 TYPE CODE TESTS RESULT OUT OF RANGE REFERENCE UNITS LAB L501.1500 6.4-8.2 g/dL Low T PROT 5.8 LAB L501.1800 3.2-5.0 g/dL Low ALB 2.8 LAB L501.1950 2.2-4.2 g/dL Normal GLOB 3.0 LAB L501.4100 15-37 U/L Low AST 14 LAB L501.4305 45-117 U/L Normal ALK P 116 LAB L501.4405 13-56 U/L Normal ALT 18 LAB L501.4600 0.20-1.00 mg/dL Normal T BILI 0.30 LAB L501.4700 0.00-0.30 mg/dL Normal D BILI 0.14 Performed By: #### L500.3400, L500.4100 #### [facility] [address] [place], [address] LIPID PROFILE Collected: 06/09/2018 Status: F Source: GISSEL 6:20 AM [facility] REPOSITORY Order Comment: 204 TYPE CODE TESTS RESULT OUT OF RANGE REFERENCE UNITS LAB L501.4900 200 mg/dL Normal CHOL 96 Result Comment: <200 mg/dL Desirable 200-240 mg/dL Borderline >240 mg/dL High Risk LAB L501.5000 mg/dL Normal TRIG 35 Result Comment: The drugs N-Acetylcysteine and Metamizole may falsely depress this assay. Serum Triglycerides Reference Interval Normal <150 mg/dL Borderline high 150 - 199 mg/dL High 200 - 499 mg/dL Very High > or = 500 mg/dL LAB L501.6400 mg/dL Normal HDL 63 Result Comment: The drugs N-Acetylcysteine and Metamizole may falsely depress this assay. Reference Range HDL <40 mg/dL Low HDL Cholesterol HDL >or= 60 mg/dL High HDL Cholesterol LAB L501.6500 0-130 mg/dL Normal LDL 26 LAB L501.6600 5-40 mg/dL Normal VLDL 7 Performed By: #### L500.3400, L500.4100 #### [facility] [address] [place], [address] 12 LEAD ELECTROCARDIOGRAM Observed: 06/07/2018 Status: F Source: GISSEL 2:26 PM [facility] REPOSITORY [facility] Cardiovascular Services [address] [place] [address] 12 Lead EKG 06/04/18 0927 MR#: [id number] Acct: [id number] Name: JIMENEZ WYNN Rep #: [id number] : 1935 82 From: Charly Ross MD Attending Dr: Status: DEP ER Ordering Dr: Charly San MD Date: 06/04/18 Location: ED Sex: F C Admitted: Test Reason : PALPS Blood Pressure : / mmHG Vent. Rate : 082 BPM Atrial Rate : 082 BPM P-R Int : 128 ms QRS Dur : 084 ms QT Int : 384 ms P-R-T Axes : 013 -26 008 degrees QTc Int : 448 ms Normal sinus rhythm Leftward axis Poor R wave progression Confirmed by CHARLY ROSS MD ([id number]), video tape editor SADIQ BUENO ([id number]) on 06/07/2018 2:26:22 PM Referred By: Confirmed By:CHARLY ROSS MD 06/07/18 1426 Date Charly Ross MD CC: Clement Bueno MD; Charly San MD Signed EMERGENCY DEPARTMENT Observed: 06/04/2018 Status: F Source: FIREBAUGH SUMMARY 9:51 AM [facility] REPOSITORY [facility] Medical Records Department [address] [place] [address] Emergency Department Summary 06/04/18 0949 MR#: [id number] Acct: [id number] Name: JIMENEZ WYNN Rep #: [id number] : 1935 82 From: Charly San MD PCP: Tracy Jones DO Status: PRE ER - ER Visit Summary Date of Service: 06/04/18 Chief Complaint: Palpitations History of Present Illness: The patient is a 82 F with history of SVT had palpitations, a prehospital EKG showed SVT and she was given adenosine she converted prior to arrival she appears in no acute distress and she tells me she is now asymptomatic and feels back to normal. Physical Examination: Not appear in acute distress. Moist mucous membranes, no obvious facial deformity No C-spine tenderness supple neck. Regular rate and rhythm without any obvious murmurs Clear lungs bilaterally speaking in full sentences without any obvious respiratory distress Abdomen soft and nontender no guarding or rebound Moves all extremities without any difficulty or pain. Skin does not show any obvious rashes or lesions, no trauma. Alert oriented 3 with no gross focal deficit Emergency Department Course and Treatment: A repeat EKG showed sinus rhythm, I compared it to the prehospital EKGs which showed SVT, this is quite clear she converted this is chronic and recurrent she sees cardiology she is to follow-up with eknney. Otherwise she will be discharged in stable condition Impression: SVT resolved This note was generated with [employer] software. It may contain incorrect words, spelling, and punctuation that were not noted in review of the chart prior to signing ED Disposition - Plan for ED Patient: Disposition: Home or Assisted Living Chief Complaint: Palpitations Instructions: ED Tachycardia Pat PSVT Referrals: Tracy Jones, [Primary Care Provider] - 3-5 Days What to do if you have Problems For any increased pain, shortness of breath, bleeding, nausea or vomiting, chest pain, or any unexpected problems, contact your Primary Care Provider. Call [facility] ([phone]) or report to the closest Emergency Room. Call 911 if necessary. 06/04/18 0951 <Electronically signed by Charly San MD> Date Charly San MD Cosigner Signature (If Indicated): Date CC: Tracy Jones DO CARDIOLOGY VISIT Observed: 05/26/2018 Status: F Source: FIREBAUGH REPORT 12:48 PM [facility] REPOSITORY [facility] [address] [place] [address] OFFICE VISIT Date of Service: 05/26/18 MR#: [id number] Acct: [id number] Name: JIMENEZ WYNN Rep #: [id number] : 1935 Provider: Victoria Lambert Age/Sex: 82/F Location: [facility] Status: Signed HPI HPI Details: JIMENEZ WYNN, is a 82 F who presents to the office today for a hospital follow-up. She has a history of SVT, Takotsubo cardiomyopathy, hypertension and hyperlipidemia. She was hospitalized earlier this month for acute kidney injury and SVT. Her troponin was noted be slightly elevated at 0.82 and trended up to 0.387. She had a stress test which was negative for ischemia. Her SVT did resolve on her own. She does reside in an extended care facility. She states that since she has been out of the hospital she has noted that she has been fatigued. She is lacking energy. She has not had any fast heart rates that she is aware of. She does not have any worsening shortness of breath. She does not have any chest pain or heaviness. She does not have any lightheadedness or dizziness. She does not have any lower extremity edema. Intake Vital Signs05/26/18 Height 5 ft 6 in 05/26/18 Weight: 169 lb 05/26/18 Body Mass Index (BMI) 27.2 05/26/18 Blood Pressure 122/68 05/26/18 Blood Pressure Location Lt brachial Intake Visit Reasons: palpitations Building Official Required: No Accompanied by: Daughter Is patient in pain?: No Allergies codeine Allergy (Severe, Verified 05/26/18 10:44) HEART ATTACK levofloxacin [From Levaquin] Allergy (Severe, Verified 05/26/18 10:44) Anaphylaxis Sulfa (Sulfonamide Antibiotics) Allergy (Unknown, Verified 05/08/18 18:32) Unknown adhesive tape Allergy (Verified 05/08/18 18:32) Other citalopram Allergy (Verified 05/09/18 13:25) Unknown Latex, Natural Rubber Allergy (Verified 05/08/18 18:32) Rash Penicillins Allergy (Verified 05/08/18 18:32) Rash acetaminophen [From Vicodin] Adverse Reaction (Verified 05/08/18 18:32) Chest tightness hydrocodone bitartrate [From Vicodin] Adverse Reaction (Verified 05/08/18 18:32) Chest tightness Medications Levothyroxine [Synthroid] 25 mcg PO DAILY@0600 05/23/16 [History Confirmed 05/26/18] Meloxicam [Mobic] 15 mg PO QODAY 05/23/16 [History Confirmed 05/26/18] Multivit with Calcium,Iron,Min [Multiple Vitamins For Women] 1 tab PO DAILY 05/23/16 [History Confirmed 05/26/18] Trazodone HCl 50 mg PO QHS 05/23/16 [History Confirmed 05/26/18] Insulin Detemir [Levemir FlexPen] 32 units SC QHS 03/26/17 [History Confirmed 05/26/18] Ubidecarenone [Coenzyme Q-10] 200 mg PO DAILY 03/26/17 [History Confirmed 05/26/18] Vitamin E 400 unit PO DAILY 03/26/17 [History Confirmed 05/26/18] ergocalciferol (vitamin D2) 50,000 unit capsule 50,000 unit PO QMONTH 01/15/18 [History Confirmed 05/26/18] Atorvastatin Calcium [Lipitor] 20 mg PO QHS 03/01/18 [History Confirmed 05/26/18] Metformin HCl [Glucophage] 1,000 mg PO BIDCM 03/01/18 [History Confirmed 05/26/18] megestrol 20 mg tablet 10 mg PO TID tab 03/01/18 [History Confirmed 05/26/18] ondansetron HCl 4 mg tablet 4 mg PO Q8H PRN tab 03/01/18 [History Confirmed 05/26/18] oxybutynin chloride ER 10 mg tablet,extended release 24 hr 10 mg PO QHS 03/01/18 [History Confirmed 05/26/18] Aspirin [Aspirin, Baby] 81 mg PO DAILY@0800 #30 tab.chew 03/03/18 [Rx Confirmed 05/26/18] Hydroxyzine HCl 25 mg PO DAILY PRN 03/03/18 [History Confirmed 05/26/18] Cyanocobalamin (Vitamin B-12) [Vitamin B-12] 1,000 mcg PO TID 05/09/18 [History Confirmed 05/26/18] Ipratropium/Albuterol Sulfate [Duoneb] 3 ml INHALATION Q4H.RT PRN 05/09/18 [History Confirmed 05/26/18] Loperamide HCl [Loperamide] 2 mg PO PRN PRN 05/09/18 [History Confirmed 05/26/18] Metoprolol Tartrate [Lopressor (beta katty)] 25 mg PO BID #60 tab 05/10/18 [Rx Confirmed 05/26/18] Ejection fraction %: 65 to 70 PFSH Medical History Takotsubo cardiomyopathy (Chronic) Nonrheumatic tricuspid (valve) insufficiency (Chronic) Atherosclerotic heart disease of [place] coronary artery without angina pectoris (Chronic) Hypothyroidism (Chronic) COPD (chronic obstructive pulmonary disease) (Chronic) Hyperlipidemia (Chronic) Type 2 diabetes mellitus (Chronic) Anemia (Acute) CVA (cerebral vascular accident) (Acute) Depression (Chronic) Osteoarthritis (Chronic) Surgical History History of arthroplasty of right hip (Chronic) History of back surgery (Chronic) History of left hip replacement (Chronic) History of total bilateral knee replacement (Chronic) History of hysterectomy (Resolved) History of tonsillectomy (Resolved) Family History Mother Diabetes Brother Atrial fibrillation Brother Diabetes Sister Diabetes Social History Smoking Status: Never smoker alcohol intake: never substance use type: does not use caffeine: Yes Type: tea Number of servings: 1 ROS Const Const: Positive for weakness and fatigue; negative for fever(s) or headache(s) Eyes Eyes: Negative for blind spots, loss of peripheral vision or transient loss of vision ENT ENT: Positive for balance problems; negative for headache(s), dizziness, tinnitus or Nosebleed/epistaxis Cardio Chest Pain: No Palpitations: No Edema: None Muscle aches with walking: None Resp Respiratory: Negative for SOB with activity, SOB at rest, SOB orthopnea\SOB lying down or Cough GI GI: Negative nausea, vomiting, heartburn or vomiting blood/hematemesis : Negative for hematuria Musc Musc: Positive for muscle weakness and balance problems; negative for muscle aches/ myalgia Neuro Neuro: Positive for weakness; negative for headache(s), dizziness, near syncope, syncope, lightheadedness or orthostatic symptoms Elan Hematologic/Lymphatic: Negative for easy bleeding Endo Endo: Positive for fatigue Cardiology Exam Const Appearance: cooperative, no acute distress, well developed and other (In WC) Orientation: alert, awake and oriented x3 Head Head: normocephalic and atraumatic Mouth: moist mucous membranes Eyes General: appearance normal, both eyes and all related structures Conjunctivae: conjunctivae normal Pupils: PERRL EOM: EOM intact bilaterally Neck Neck: normal visual inspection, no lymphadenopathy and no JVD Carotids: Negative bruit Neck Mass: Negative Neck mass Chest Chest inspection: normal inspection of the chest and symmetric chest movement Auscultation: Bilateral: Clear to Auscultation Cardio Palpation: normal PMI Rate: regular rate Rhythm: regular rhythm Heart sounds: S1 normal and S2 normal; negative rub, gallop or murmur GI GI: normal to inspection, soft, no hepatosplenomegaly and bowel sounds present; negative tender Neuro General: alert, awake, oriented x3, CN's II-XI intact bilaterally and moves all extremities Gait: gait assisted Extremities Pulses: Normal: Right Posterior Tibial Pulse, Left Posterior Tibial Pulse, Right Radial Pulse, Left Radial Pulse Lower Extremity Edema: None: Bilateral Psych Psychological: normal affect Supplemental Info Stress test in May 2017 was negative for ischemia. Echocardiogram in March 2018 demonstrated Left ventricular systolic function is normal. The estimated ejection fraction is 65 %. The left atrium is mildly enlarged. There is mild mitral annular calcification. Extension of the mitral annular calcification onto the posterior mitral valve leaflet. Mild (1+) eccentric mitral valve insufficiency. Mild tricuspid valve insufficiency. Mild focal aortic valve calcification. Trivial pulmonic valve insufficiency. Right ventricular systolic pressure estimated to be 37 mmHg. Transmitral diastolic flow velocities suggest diastolic dysfunction. Assessment AND Plan 1. SVT (supraventricular tachycardia) I47.1 Plan - TAMIKO Huff Patient has not had any further recurrence of her SVT. She will continue with her current dose of metoprolol. Advised family that if she does have recurrence of elevated heart rate that they should let our office know. If she has any recurrence we can consider increasing metoprolol or adding an antiarrhythmic. If we are unable to control her SVT at that time would consider an EP referral. Do feel that her fatigue is likely related to to her 2 episodes of SVT that she had recently. Encouraged that if this is not improved that she should give her PCP a call. 2. Takotsubo cardiomyopathy I51.81 Plan - TAMIKO Huff Echocardiogram was repeated in March 2018 during hospital stay. Ejection fraction has improved. She will continue with current medical management. 3. Pure hypercholesterolemia E78.00; E78.0 Plan - TAMIKO Huff Patient is currently on a low-dose statin, will continue with current medications. Will adjust accordingly. Plan Detail Additional Comments - TAMIKO Huff Thank you for allowing us to participate in the patients plan of care, if you have any questions please do not hesitate to call. This note was generated using a voice recognition system and there may be incorrect words, spelling or punctuation that were not noted when reviewing the office note prior to saving. Follow Up 05/26/18 (Cancel appt in June, keep August appt. ) Coding Level of Care Code Off vis,est,level 4 Diagnoses SVT (supraventricular tachycardia) I47.1 Takotsubo cardiomyopathy I51.81 Pure hypercholesterolemia E78.00; E78.0 Hyperlipidemia type: pure hypercholesterolemia Coding Level of Care Code Off vis,est,level 4 Diagnoses SVT (supraventricular tachycardia) I47.1 Takotsubo cardiomyopathy I51.81 Pure hypercholesterolemia E78.00; E78.0 Hyperlipidemia type: pure hypercholesterolemia 05/26/18 1125 <Electronically signed by Victoria MORRISON> Date Victoria MORRISON 05/26/18 1248<Electronically signed by Charly Ross MD> Cosigner Signature: Date (if applicable) Charly Ross MD CC: Tracy Jones DO 12 LEAD ELECTROCARDIOGRAM Observed: 05/13/2018 Status: F Source: [place] 2:07 PM [facility] REPOSITORY [facility] Cardiovascular Services [address] [place], [place] [address] [address] 12 Lead EKG 05/09/18 0710 MR#: [id number] Acct: [id number] Name: JIMENEZ WYNN Rep #: [id number] : 1935 82 From: Charly Ross MD Attending Dr: Margoth Carroll MD Status: DIS IN Ordering Dr: Jone Olivares MD Date: 05/09/18 Location: [facility] Sex: F C Admitted: 05/09/18 Test Reason : RYTHM Blood Pressure : / mmHG Vent. Rate : 071 BPM Atrial Rate : 071 BPM P-R Int : 140 ms QRS Dur : 084 ms QT Int : 394 ms P-R-T Axes : 025 -26 -06 degrees QTc Int : 428 ms Poor data quality, interpretation may be adversely affected Normal sinus rhythm Low voltage QRS ( precordial leads) Nonspecific T wave abnormality Abnormal ECG Confirmed by CODY MERCER, CHARLY ([id number]), video tape editor SADIQ BUENO ([id number]) on 05/13/2018 2:07:12 PM Referred By: VERNON Confirmed By:CHARLY ROSS MD 05/13/18 2860 Date Charly Ross MD CC: Tracy Jones DO; Margoth Carroll MD; Jone Olivares MD Signed 12 LEAD ELECTROCARDIOGRAM Observed: 05/13/2018 Status: F Source: [place] 2:05 PM [facility] HOSPITAL REPOSITORY [facility] Cardiovascular Services [address] [place] [address] 12 Lead EKG 05/10/18 0528 MR#: [id number] Acct: [id number] Name: JIMENEZ WYNN Rep #: [id number] : 1935 82 From: Charly Ross MD Attending Dr: Margoth Carroll MD Status: DIS IN Ordering Dr: Margoth Carroll MD Date: 05/10/18 Location: [facility] Sex: F C Admitted: 05/09/18 Test Reason : AM EKG Blood Pressure : / mmHG Vent. Rate : 063 BPM Atrial Rate : 063 BPM P-R Int : 142 ms QRS Dur : 090 ms QT Int : 424 ms P-R-T Axes : 021 -25 010 degrees QTc Int : 433 ms Normal sinus rhythm Normal ECG Confirmed by CODY MERCER, CHARLY ([id number]), video tape editor SADIQ BUENO ([id number]) on 05/13/2018 2:05:31 PM Referred By: COURTNEY Confirmed By:CHARLY ROSS MD 05/13/18 1405 Date Charly Ross MD CC: Tracy Jones DO; Margoth Carroll MD Signed DISCHARGE SUMMARY Observed: 05/10/2018 Status: F Source: [place] 3:37 PM [facility] HOSPITAL REPOSITORY [facility] Medical Records Department [address] [place] [address] Discharge Summary 05/10/18 1353 MR#: [id number] Acct: [id number] Name: JIMENEZ WYNN Rep #: [id number] : 1935 82 From: Margoth Carroll MD PCP: Tracy Jones DO Status: ADM IN Y Location: [place] [address] Discharge Date and Diagnosis - Problem List Patient Problems: Active and Suspected Problems (Last Reviewed 03/01/18 @ 13:10 by Victoria Fu) DEMETRA (acute kidney injury) (Acute) Date of Admission: 05/08/18 Date of Discharge: 05/10/18 - Primary Discharge Diagnosis Active and Suspected Problems (Last Reviewed 03/01/18 @ 13:10 by Victoria Fu) SVT DEMETRA (acute kidney injury) (Acute) - Secondary Discharge Diagnosis Chronic Problems (Last Reviewed 03/01/18 @ 13:10 by Victoria Fu) Takotsubo cardiomyopathy (Chronic) Nonrheumatic tricuspid (valve) insufficiency (Chronic) 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 Recommend further evaluation with CT scan. Otherwise negative. Electronically Signed: Jose G Vo MD at 18:54 EDT , Service support , Chest CTA 05/09/18 14:31 Laboratory Tests WBC 9.7 RBC 3.76 L Hgb 12.1 Hct 37.3 WBC RBC Hgb Hct MCV MCH MCHC RDW RDW Differential Plt Count MPV Immature Gran % (Auto) WBC RBC Hgb Hct MCV MCH MCHC RDW WBC RBC Hgb Hct MCV MCH MCHC RDW WBC 5.8 RBC 3.01 L Hgb 9.7 L WBC RBC Hgb Hct MCV MCH MCHC RDW Operations: None Procedures: EKG, Nuclear stress test Summary of Care Provided: Patient is a 82-year-old female with a history of SVT, CAD, hypertension and type 2 diabetes. [facility] a complaint of shortness of breath on 05/08/2018 and was unable to provide much history. According to her family than they said she had been short of breath for at least a day and a heart rate was noted to be in the 170s. Patient was noted to be in SVT on admission to ED and converted with administration of IV adenosine. D-dimer done was noted to be elevated and CT PE was negative for any PE. Troponins were noted to be slightly elevated at 0.082 and trended up to 0.387. Cardiology was on board I recommended a stress test. She had a stress test on 05/10/2018 which was negative. Patient remained stable and SVT did not recur. She was discharged to her extended- care facility on 05/10/2018. She is to follow-up with her primary care doctor and parachute/combatant diver officer in 1 week. Patient seen and examined this morning. She had no complaints and her daughter and son were at her bedside. She denied any fever or chills, any cough or chest pain, any shortness of breath, any belly pain, any diarrhea vomiting. Review of systems otherwise negative o/e: elderly female, pleasant, no complaints. HEENT: EOMI, PERRLA, no pallor or jaundice Oral: mucos moist Neck: supple, no JVD Lungs: clear to auscultation CVS: normal S1/S2, no murmurs ABdomen: soft,non tender, no organomegaly Skin: no rash Extremities: no edema Neuro: alert, CN II-XII intact Psych: normal affect, appropriate, AO x 3 Lumphatic: no lymphadenopathy Plan is to discharge patient to extended-care facility today. To follow-up with PCP and parachute/combatant diver officer. Weight Bearing Status: Weight bearing as tolerated Call your doctor if you observe: Shortness of breath, Increased palpitations (irregular heartbeat), - Home Medications: Medications to take at Discharge Levothyroxine [Synthroid] 25 mcg PO DAILY@0600 05/23/16 Meloxicam [Mobic] 15 mg PO QODAY 05/23/16 Multivit with Calcium,Iron,Min [Multiple Vitamins For Women] 1 tab PO DAILY 05/23/16 Trazodone HCl 50 mg PO QHS 05/23/16 Insulin Detemir [Levemir FlexPen] 32 units SC QHS 03/26/17 Ubidecarenone [Coenzyme Q-10] 200 mg PO DAILY 03/26/17 Vitamin E 400 unit PO DAILY 03/26/17 ergocalciferol (vitamin D2) 50,000 unit capsule 50,000 unit PO QMONTH 01/15/18 Atorvastatin Calcium [Lipitor] 20 mg PO QHS 03/01/18 Fluticasone/Salmeterol [Advair 500-50 Diskus] 1 each IH BID 03/01/18 Metformin HCl [Glucophage] 1,000 mg PO BIDCM 03/01/18 megestrol 20 mg tablet 10 mg PO TID tab 03/01/18 ondansetron HCl 4 mg tablet 4 mg PO Q8H PRN tab 03/01/18 oxybutynin chloride ER 10 mg tablet,extended release 24 hr 10 mg PO QHS 03/01/18 Aspirin [Aspirin, Baby] 81 mg PO DAILY@0800 #30 tab.chew 03/03/18 Hydroxyzine HCl 25 mg PO DAILY PRN 03/03/18 Cyanocobalamin (Vitamin B-12) [Vitamin B-12] 1,000 mcg PO TID 05/09/18 Ipratropium/Albuterol Sulfate [Duoneb] 3 ml INHALATION Q4H.RT PRN 05/09/18 Loperamide HCl [Loperamide] 2 mg PO PRN PRN 05/09/18 Ondansetron [Zofran Odt] 4 mg PO TID 05/09/18 Metoprolol Tartrate [Lopressor (beta katty)] 25 mg PO BID #60 tab 05/10/18 Following Prescrptions Were Given to Patient: Metoprolol Tartrate [Lopressor (beta katty)] 25 mg PO BID #60 tab Primary Care Physician: Tracy Jones DO [Primary Care Provider] - Please follow up with your Primary Care Physician in: one week Please Follow Up With: Markus Cueto MD When: one week Medical Necessity - Tobacco Use Smoking Status: Never smoker Meaningful Use Info Meaningful Use Diagnoses (Choose all that apply): None applicable Code Visit Inpatient E AND M: 28741 Disch Hosp 05/10/18 1537 <Electronically signed by Margoth Carroll MD> Date Margoth Carroll MD Cosigner Signature (if applicable): Date CC: Tracy Jones DO; Margoth Carroll MD Signed 12 LEAD ELECTROCARDIOGRAM Observed: 05/10/2018 Status: F Source: [place] 3:12 PM [facility] HOSPITAL REPOSITORY [facility] Cardiovascular Services [address] [place] [address] 12 Lead EKG 05/08/18 1829 MR#: [id number] Acct: [id number] Name: KINGSLEY,LELANDSHIN Rep #: [id number] : 1935 82 From: Markus Cueto MD Attending Dr: Margoth Carroll MD Status: ADM IN Ordering Dr: Blake Powers MD Date: 05/08/18 Location: [facility] Sex: F C Admitted: 05/09/18 Test Reason : Blood Pressure : / mmHG Vent. Rate : 174 BPM Atrial Rate : 087 BPM P-R Int : 000 ms QRS Dur : 086 ms QT Int : 270 ms P-R-T Axes : 000 -32 132 degrees QTc Int : 459 ms Supraventricular tachycardia Left axis deviation ST AND T wave abnormality, consider lateral ischemia Abnormal ECG Confirmed by MARKUS CUETO MD ([id number]), video tape editor SADIQ BUENO ([id number]) on 05/10/2018 3:11:47 PM Referred By: MIGUEL Confirmed By:MARKUS CUETO MD 05/10/18 1511 Date Markus Cueto MD CC: Tracy Jones DO; Margoth Carroll MD; Blake Powers MD Signed DISCHARGE INSTRUCTION Observed: 05/10/2018 Status: F Source: [place] 2:40 PM [facility] HOSPITAL REPOSITORY [facility] Medical Records Department [address] [place] [address] Instructions for Home/Discharge Instructions 05/10/18 1440 MR#: [id number] Acct: [id number] Name: JIMENEZ WYNN Rep #: [id number] : 1935 82 From: Margoth Carroll MD PCP: Tracy Jones DO Status: ADM IN - Discharge Diagnoses Current Active Problems: Current Active and Chronic Problems (Last Reviewed 03/01/18 @ 13:10 by Victoria Fu) DEMETRA (acute kidney injury) (Acute) You will use the following diet at home:: Cardiac Your food should be the consistency of: Regular Your liquids should be the consistency of: Regular/Thin Discharge Activity: Return to Normal Activity Weight Bearing Status: Weight bearing as tolerated Call your doctor if you observe: Shortness of breath, Increased palpitations (irregular heartbeat), - Allergies/Adverse Reactions: Allergies Sulfa (Sulfonamide Antibiotics) Allergy (Unknown, Verified 05/08/18 18:32) Unknown adhesive tape Allergy (Verified 05/08/18 18:32) Other citalopram Allergy (Verified 05/09/18 13:25) Unknown codeine Allergy (Verified 05/08/18 18:32) HEART ATTACK Latex, Natural Rubber Allergy (Verified 05/08/18 18:32) Rash levofloxacin [From Levaquin] Allergy (Verified 05/08/18 18:32) Anaphylaxis Penicillins Allergy (Verified 05/08/18 18:32) Rash acetaminophen [From Vicodin] Adverse Reaction (Verified 05/08/18 18:32) Chest tightness hydrocodone bitartrate [From Vicodin] Adverse Reaction (Verified 05/08/18 18:32) Chest tightness Medications to take at Discharge Levothyroxine [Synthroid] 25 mcg PO DAILY@0600 05/23/16 Meloxicam [Mobic] 15 mg PO QODAY 05/23/16 Multivit with Calcium,Iron,Min [Multiple Vitamins For Women] 1 tab PO DAILY 05/23/16 Trazodone HCl 50 mg PO QHS 05/23/16 Insulin Detemir [Levemir FlexPen] 32 units SC QHS 03/26/17 Ubidecarenone [Coenzyme Q-10] 200 mg PO DAILY 03/26/17 Vitamin E 400 unit PO DAILY 03/26/17 ergocalciferol (vitamin D2) 50,000 unit capsule 50,000 unit PO QMONTH 01/15/18 Atorvastatin Calcium [Lipitor] 20 mg PO QHS 04/30/18 Fluticasone/Salmeterol [Advair 500-50 Diskus] 1 each IH BID 03/01/18 Metformin HCl [Glucophage] 1,000 mg PO BIDCM 03/01/18 megestrol 20 mg tablet 10 mg PO TID tab 03/01/18 ondansetron HCl 4 mg tablet 4 mg PO Q8H PRN tab 03/01/18 oxybutynin chloride ER 10 mg tablet,extended release 24 hr 10 mg PO QHS 03/01/18 Aspirin [Aspirin, Baby] 81 mg PO DAILY@0800 #30 tab.chew 03/03/18 Hydroxyzine HCl 25 mg PO DAILY PRN 03/03/18 Cyanocobalamin (Vitamin B-12) [Vitamin B-12] 1,000 mcg PO TID 05/09/18 Ipratropium/Albuterol Sulfate [Duoneb] 3 ml INHALATION Q4H.RT PRN 05/09/18 Loperamide HCl [Loperamide] 2 mg PO PRN PRN 05/09/18 Ondansetron [Zofran Odt] 4 mg PO TID 05/09/18 Metoprolol Tartrate [Lopressor (beta katty)] 25 mg PO BID #60 tab 05/10/18 The following prescriptions were given: Metoprolol Tartrate [Lopressor (beta katty)] 25 mg PO BID #60 tab Primary Care Physician: Tracy Jones DO [Primary Care Provider] - Please follow up with your Primary Care Physician in: one week Test Results: Test results from this visit will be discussed in further detail at your follow-up appointment, if applicable. Please Follow Up With: Markus Cueto MD When: one week Proposed Discharge Date: 05/10/18 05/10/18 1440 <Electronically signed by Margoth Carroll MD> Date Margoth Carroll MD CC: Pat Austin MD; Tracy Jones DO TRANSFER TO [facility] Observed: 05/10/2018 Status: F Source: [facility] 2:05 PM [facility] REPOSITORY [facility] Medical Records Department [address] [place] [address] Transfer to Extended Care MR#: [id number] Acct: [id number] Name: JIMENEZ WYNN Rep #: [id number] : 1935 82 From: Margoth Carroll MD PCP: Tracy Jones DO Status: ADM IN JIMENEZ WYNN (Patient) (Health Ins. Claim No.) (Day of Discharge to Facility) Certification of patient admission REQUIRED AT TIME OF ADMISSION. I CERTIFY THAT POST-HOSPITAL ECF SERVICES ARE REQUIRED TO BE GIVEN ON AN IN-PATIENT BASIS BECAUSE OF THE ABOVE NAMED PATIENT'S NEED FOR SNF CARE ON A CONTINUING BASIS FOR THE CONDITION(S) FOR WHICH HE/SHE WAS RECEIVING IN-PATIENT HOSPITAL SERVICES PRIOR TO HIS/HER TRANSFER TO THE F. 05/10/18 1405 <Electronically signed by Margoth Carroll MD> Date Margoth Carroll MD - Diet 05/10/18 13:39 Diet: Cardiac: Calorie-Controlled Is pt able to select menu?: No How many daily calories?: 2000 calorie - Routine Orders/Code Status Enema Type: Fleetz Enema Frequency: Daily PRN Suppository Type: Dulcolax 10mg Suppository Frequency: Daily PRN Code Status: Full Code - Therapies Weight Bearing: Weight bearing as tolerated Physical Therapy: Eval and Treat Occupational Therapy: Eval and Treat - Allergies/Procedures Done in Hospital Allergies/Adverse Reactions: Allergies Sulfa (Sulfonamide Antibiotics) Allergy (Unknown, Verified 05/08/18 18:32) Unknown adhesive tape Allergy (Verified 05/08/18 18:32) Other citalopram Allergy (Verified 05/09/18 13:25) Unknown codeine Allergy (Verified 05/08/18 18:32) HEART ATTACK Latex, Natural Rubber Allergy (Verified 05/08/18 18:32) Rash levofloxacin [From Levaquin] Allergy (Verified 05/08/18 18:32) Anaphylaxis Penicillins Allergy (Verified 05/08/18 18:32) Rash acetaminophen [From Vicodin] Adverse Reaction (Verified 05/08/18 18:32) Chest tightness hydrocodone bitartrate [From Vicodin] Adverse Reaction (Verified 05/08/18 18:32) Chest tightness Procedures: EKG, Nuclear Stress Test - Type of Care/Length of Stay Estimated LOS: More Than 30 Days Type of Care Needed: Shelter/Assisted Living Rehab Potential: Good Prognosis: Good - Additional Orders/Day of Discharge H AND P will serve as current which was dated: 05/08/18 Day of Discharge: 05/10/18 - Dietary and Speech Recommendations Dietitian Recommendations/Changes: Rec diet change to CHO Control Cardiac. Rec continue ONS medpass - Follow Up Care Primary Care Physician: Tracy Jones DO [Primary Care Provider] - Please follow up with your Primary Care Physician in: one week Please Follow Up With: Markus Cueto MD When: one week 05/10/18 1405 <Electronically signed by Margoth Carroll MD> Date Margoth Carroll MD CC: Pat Austin MD; Tracy Jones DO Signed STRESS REPORT Observed: 05/10/2018 Status: F Source: [place] 1:25 PM [facility] REPOSITORY [facility] Cardiovascular Services [address] [place] [address] MR#: [id number] Acct: [id number] Name: JIMENEZ WYNN Rep #: [id number] : 1935 82 From: Markus Cueto MD Primary Care: Tracy Jones DO Status: ADM IN Ordering Dr: Sex: F C Stress Test Report Pharmacologic myocardial perfusion stress test. 82-year-old lady with a history of mildly abnormal troponin and a history of supraventricular tachycardia. Stress protocol. Resting EKG demonstrates sinus bradycardia with a rate of 59 beats minute normal intervals are noted. Resting blood pressure is 116/70 mmHg. 0.4 mg regadenoson was infused per usual protocol followed by rapid intravenous saline flush injection continuous EKG monitoring was performed. The patient maintained sinus rhythm throughout the recording. The maximum heart rate attained was 95 beats minute to 60% maximum predicted heart rate the maximum workload attained was 1 metabolic equivalent. The final blood pressure was 112/64 mmHg. Myocardial perfusion protocol. 10.9 mCi of technetium 99m sestamibi was injected at rest. 0.4 mg regadenoson was infused per usual protocol peak infusion 32.7 mCi of technetium 99m sestamibi was injected stress images were obtained stress and rest images were reconstructed and compared in the short axis vertical long horizontal long axis. Gated images were also obtained next Perfusion SPECT analysis. Review of the stress images demonstrate normal uptake of tracer noted in all areas of the myocardium. The review of the resting images demonstrate normal uptake of tracer noted in all areas myocardium except for the inferior wall with significant GI and bowel attenuation artifact noted. This does not do note ischemia. Gated SPECT analysis: The gated ejection fraction is 64%. Conclusion: Normal pharmacologic myocardial perfusion stress test. Preserved ejection fraction. 05/10/18 1325 <Electronically signed by Markus Cueto MD> Date Markus Cueto MD CC: Tracy Jones DO; Margoth Carroll MD Date Dictated: 05/10/18 1323 Date Transcribed: 05/10/181322 Sales Manager: [place] Signed BEDSIDE GLUCOSE Collected: 05/10/2018 Status: F Source: [place] 12:52 PM [facility] REPOSITORY TYPE CODE TESTS RESULT OUT OF REFERENCE UNITS RANGE LAB L501.080 70-110 mg/dL High BEDSIDE GLU 161 Result Comment: MANAGEMENT OF PATIENT CARE PER NURSING PROTOCOL Performed By: #### L501.080 #### [facility] Laboratory Point of Care [address] [place], [place] [address] BEDSIDE GLUCOSE Collected: 05/10/2018 Status: F Source: [place] 6:53 AM [facility] REPOSITORY TYPE CODE TESTS RESULT OUT OF RANGE REFERENCE UNITS LAB L501.080 70-110 mg/dL Normal BEDSIDE GLU 99 Result Comment: MANAGEMENT OF PATIENT CARE PER NURSING PROTOCOL Performed By: #### L501.080 #### [facility] Laboratory Point of Care [address] [place], [place] [address] BASIC METABOLIC Collected: 05/10/2018 Status: F Source: [place] PROFILE (BMP) 5:00 AM [facility] REPOSITORY TYPE CODE TESTS RESULT OUT OF RANGE REFERENCE UNITS LAB L501.0100 74-106 mg/dL High GLU 123 Result Comment: Fasting Glucose result from 100 to 125 mg/dL suggests IMPAIRED HOMEOSTASIS per A.D.A. criteria. Please note revised GLUCOSE reference range effective 2017. LAB L501.1000 7-18 mg/dL High BUN 19 LAB L501.1100 0.55-1.02 mg/dL High CREAT,SERUM 1.15 Result Comment: The validity of the calculated GFR AND GFRAA in patients over 70 years has not been determined. Clinical correlation is essential. LAB L501.1110 >60 mL/min Low EST GFR 48 Result Comment: Non- GFR Calc LAB L501.1115 >60 mL/min Low EST GFR - AA 58 Result Comment: GFR Calc LAB L501.1255 ml/min Normal Estimated CRCL 35.92 LAB L501.1300 10-20 RATIO Normal BUN/CRE 16.5 LAB L501.2200 8.5-10 mg/dL Low .1 CA 8.0 LAB L501.5300 136-14 mmol/L Normal 5 NA 144 LAB L501.5600 3.5-5. mmol/L Normal 1 K 4.4 LAB L501.5900 98-107 mmol/L High CL 112 LAB L501.6100 21.0-3 mmol/L Normal 2.0 CO2 25.0 LAB L501.6200 5-15 Normal GAP 7 Performed By: #### L500.2500 #### [facility] Laboratory [address] [place], [place], [address] PROTHROMBIN TIME W/INR Collected: 05/10/2018 Status: F Source: [place] 5:00 AM [facility] REPOSITORY TYPE CODE TESTS RESULT OUT OF RANGE REFERENCE UNITS LAB L300.4150 11.7-14.9 SECONDS Normal PROTIME 14.2 LAB L300.4200 Normal INR 1.1 Performed By: #### L300.3900, L300.4310 #### [facility] Laboratory [address] [place], [address] PARTIAL THROMBOPLAST Collected: 05/10/2018 Status: F Source: [place] TIME 5:00 AM [facility] REPOSITORY TYPE CODE TESTS RESULT OUT OF RANGE REFERENCE UNITS LAB L300.4310 24.1-36.2 Seconds Normal PTT 34.3 Performed By: #### L300.3900, L300.4310 #### [facility] [address] [place], [place], [id number] CBC W/DIFF, AUTOMATED Collected: 05/10/2018 Status: F Source: [place] 5:00 AM [facility] REPOSITORY TYPE CODE TESTS RESULT OUT OF RANGE REFERENCE UNITS LAB L100.1000 4.4-11.0 K/mm3 Normal WBC 5.8 LAB L100.1200 4.2-5.4 M/mm3 Low RBC 3.01 LAB L100.1300 12.0-15.0 g/dl Low HGB 9.7 LAB L100.1400 37-47 % Low HCT 29.5 LAB L100.1500 81-99 fL Normal MCV 98.0 LAB L100.1600 27.0-32.0 pg High MCH 32.2 LAB L100.1700 32-36 g/gl Normal MCHC 32.9 LAB L100.1810 11.6-14.6 % Normal RDW CV 13.2 LAB L100.1820 35.1-43.9 fl High RDW SD 47.2 LAB L100.1900 150-450 K/mm3 Normal PLT 197 LAB L100.2000 6.2-12.0 fl Normal MPV 8.5 LAB L100.2100 47-70 % Normal NEUT% 56.3 LAB L100.2200 19-41 % Normal LY% 21.9 LAB L100.2300 0-10 % Normal MONO% 9.1 LAB L100.2400 0-5 % High EO% 12.4 LAB L100.2500 0-1 % Normal BASO% 0.3 LAB L100.2550 0.0-0.9 % Normal IM GRAN % 0.000 Result Comment: IG% - Immature Granulocytes (promyelocytes, myelocytes and metamyelocytes) > 1% indicates that a LEFT SHIFT is Present. LAB L100.2620 2.0-7.7 X10 3/uL Normal Absolute Neut 3.3 LAB L100.2720 0.83-4.51 X10 3/ul Normal Absolute Lymph 1.27 Performed By: #### L100.0100 #### [facility] [address] [facility] [place], [address] BEDSIDE GLUCOSE Collected: 05/09/2018 Status: F Source: GISSEL 9:25 PM [facility] REPOSITORY TYPE CODE TESTS RESULT OUT OF REFERENCE UNITS RANGE LAB L501.080 70-110 mg/dL High BEDSIDE GLU 183 Result Comment: MANAGEMENT OF PATIENT CARE PER NURSING PROTOCOL Performed By: #### L501.080 #### [facility] Point of Care [address] [place] [address] BEDSIDE GLUCOSE Collected: 05/09/2018 Status: F Source: FIREBAUGH 4:45 PM [facility] REPOSITORY TYPE CODE TESTS RESULT OUT OF REFERENCE UNITS RANGE LAB L501.080 70-110 mg/dL High BEDSIDE GLU 246 Result Comment: MANAGEMENT OF PATIENT CARE PER NURSING PROTOCOL Performed By: #### L501.080 #### [facility] Point of Care [address] [facility] [place] [address] CTA CHEST W/WO Observed: 05/09/2018 Status: F Source: FIREBAUGH CONTRAST 2:31 PM [facility] REPOSITORY [facility] Imaging Services [address] [place] [address] CTA Chest W/WO Contrast MR#: [id number] Acct: [id number] Name: JIMENEZ WYNN Rep #: [id number] : 1935 F 82 From: Cosme Melendez MD PCP: Tracy Jones DO Status: ADM IN Study: CTA Chest W/WO Contrast Date of Exam: 05/09/18 Exam# [id number] Ordering Dr: Margoth Carroll MD STUDY: CTA CHEST REASON FOR EXAM: Female, 82 years old. Elevated d-dimer. Concern for pulmonary embolus RADIATION DOSAGE (If Supplied By Facility): CTDIvol = ( 12.54 ) mGy, DLP = ( 472.59 ) mGycm TECHNIQUE: The examination was performed with the intravenous administration of 75mL ml of Isovue 370 contrast material. Post-processing of the angiographic images was performed, with multiplanar reformation and 3D reconstruction. Individualized dose optimization techniques were used for this CT. COMPARISON: May 082017 chest radiograph FINDINGS: No axillary or mediastinal adenopathy seen. Scattered mediastinal lymph nodes not enlarged by CT criteria. Pulmonary artery and its branches demonstrate no evidence of filling defects to suggest pulmonary embolus. Cardiac size is enlarged. Mitral annular calcifications. Reflux of contrast into the IVC. Low-attenuation structure in the left kidney possibly renal cyst partially visualized. Adrenal glands appear unremarkable. Coronary vascular calcifications no pericardial effusion. Right lower lobe atelectasis with wedge-shaped pleural-based density may relate with discoid atelectasis. Hazy groundglass opacities bilaterally. Subtle subsegmental atelectasis in the right upper lobe also seen. Degenerative changes in the thoracic spine. Diffuse osteopenia. Mild wedging of the thoracic vertebrae possibly chronic. IMPRESSION: Bilateral hazy groundglass opacities can be seen in the setting of atypical infection or pulmonary edema. Cardiomegaly with coronary vascular calcifications Wedge-shaped pleural based density in the right lower lobe possibly discoid atelectasis however this can be assessed with short-term follow- up imaging in 6 months. No evidence for pulmonary embolus. No definite evidence for aortic dissection Electronically Signed: Cosme Melendez, at 16:08 EDT Tel , Service support , CT/CTA Chest W/WO Contrast CC: Tracy Jones DO; Margoth Carroll MD Sales Manager: Signed D-DIMER QUANTITATIVE Collected: 05/09/2018 Status: F Source: GISSEL (DVT/PE) 1:55 PM [facility]PITAL REPOSITORY TYPE CODE TESTS RESULT OUT OF RANGE REFERENCE UNITS LAB L300.8000 0.27-0.49 FEU/ug/m High alert D-DIMER 0.87 QUANT Result Comment: D-Dimer ELEVATED (>0.49): Additional studies and clinical assessments are indicated to conclude diagnosis of: Deep Vein Thrombosis (DVT) or Pulmonary Embolism (PE) CRITICAL VALUE VERIFIED. CALLED TO MARNI PETERSON 05/09/18 1422 Brandi Estrella. RESULTS READ BACK BY SAME . Performed By: #### L300.8000 #### [facility] [address] [place], [address] CONSULTATION Observed: 05/09/2018 Status: F Source: FIREBAUGH 11:39 AM [facility] REPOSITORY [facility] Medical Records Department [address] [place] [address] Consultation 05/09/18 1129 MR#: [id number] Acct: [id number] Name: JIMENEZ WYNN Rep #: [id number] : 1935 82 From: Pat Austin MD PCP: Tracy Jones DO Status: ADM KIANA Y Location: [place] [address] Problem List (1) SVT (supraventricular tachycardia) Status: Acute Reason for Consult Date of Consultation: 05/09/18 History of Present Illness: The patient is a 82 year old F with past medical history significant for Takotsubo's cardiomyopathy with ejection fraction normalized on last echocardiogram, COPD and supraventricular tachycardia. She presented to the emergency room with complaints of acute onset shortness of breath. According to the daughter of the patient, the patient's pulse was checked and it was noted to be rapid. In the emergency room, the patient was noted to be in supraventricular tachycardia at 1 70 bpm. Successful conversion was done with administration of IV adenosine. Patient has since been asymptomatic. Denies any chest pain. Denies any shortness of breath. Denies any further palpitations. [] Past Medical History Allergies/Adverse Reactions: Allergies Sulfa (Sulfonamide Antibiotics) Allergy (Unknown, Verified 05/08/18 18:32) Unknown adhesive tape Allergy (Verified 05/08/18 18:32) Other codeine Allergy (Verified 05/08/18 18:32) HEART ATTACK Latex, Natural Rubber Allergy (Verified 05/08/18 18:32) Rash levofloxacin [From Levaquin] Allergy (Verified 05/08/18 18:32) Anaphylaxis Penicillins Allergy (Verified 05/08/18 18:32) Rash acetaminophen [From Vicodin] Adverse Reaction (Verified 05/08/18 18:32) Chest tightness hydrocodone bitartrate [From Vicodin] Adverse Reaction (Verified 05/08/18 18:32) Chest tightness Home Medications: Ambulatory Orders Medication Instructions Recorded Levothyroxine [Synthroid] 25 mcg PO DAILY@0600 05/23/16 Past Medical History (Chronic Problems): Chronic Problems (Last Reviewed 03/01/18 @ 13:10 by Victoria Fu) Takotsubo cardiomyopathy (Chronic) Nonrheumatic tricuspid (valve) insufficiency (Chronic) Atherosclerotic heart disease of [place] coronary artery without angina pectoris (Chronic) Mild Hypothyroidism (Chronic) COPD (chronic obstructive pulmonary disease) (Chronic) Hyperlipidemia (Chronic) Type 2 diabetes mellitus (Chronic) Surgical History: hysterectomy, total hip arthroplasty, - - Fractured femur - *Family History Maternal History Items: No pertinent history Paternal History Items: No pertinent history Lives: Penitentiary Smoking Status: Never smoker Alcohol: None Drugs: None Review of Systems - Review of Systems General: Denies: Fever, Chills HEENT: Denies: Head Aches Cardiovascular: Reports: Shortness of Breath at Rest, Palpitations. Denies: Chest Discomfort at Rest, Chest Discomfort with Exertion, Orthopnea, PND, Peripheral Edema Respiratory: Denies: Cough Gastrointestinal: Denies: Abdominal Discomfort, Jaundice, Nausea Neurological: Reports: History of CVA Hematologic/ Lymphatic: Denies: Easy Brusing, Easy Bleeding Subjectve: Comfortable. No apparent distress Objective: Vital Signs Temp Pulse Resp BP Pulse Ox 97.6 F L 79 16 131/73 H 95 05/09/18 08:40 05/09/18 09:11 05/09/18 08:40 05/09/18 09:11 05/09/18 08:40 Oxygen Flow Rate (L/min) 2 Oxygen Delivery Method Room Air Weight: 76.6 kg Body Mass Index (BMI) 27.2 Intake and Output for Last 24 Hours Intake Total 50 / 50 653 / 653 Balance 50 / 50 653 / 653 General: Healthy Appearing, Awake, Alert, Oriented x 3 HEENT: Atraumatic, Normocephalic Oral: Moist Mucosa Neck: - - Minimally elevated JVP Lungs: Clear to auscultation Cardiovascular: Regular Rhythm, Normal S1, Normal S2, No Murmurs Vascular: No Carotid Bruits Abdomen: Bowel Sounds Present, Soft Extremities: - - Trace bilateral edema Neurological: CN II-XII Intact Psych/Mental Status: Appropriate 05/09/18 01:58: Troponin I 0.372 H 05/09/18 04:33: PT 14.0, INR 1.1 05/09/18 04:33: Sodium 141, Potassium 4.8, Chloride 108 H, Carbon Dioxide 23.0, Anion Gap 10, BUN 24 H, Creatinine 1.40 H, Est GFR (MDRD) Af Amer 46 L, Est GFR (MDRD) Non-Af 38 L, BUN/Creatinine Ratio 17.1, Glucose 175 H, Calcium 8.3 L 05/09/18 04:33: Troponin I 0.383 H 05/09/18 07:50: Troponin I 0.387 H Rhythm: Normal sinus rhythm. Rhythm on first EKG done in the emergency room was SVT EKG: Normal sinus rhythm. First EKG showed supraventricular tachycardia ECHO: Last echocardiogram done in January of this year showed intact LV systolic function Assessment/Plan 1. Supraventricular tachycardia. Successfully converted with administration of IV adenosine. Continue beta katty. Increase dose 2. Minimally elevated troponin. Likely secondary to demand phenomenon with #1 above. Patient had cardiac catheterization done in 2011 which showed minimal atherosclerotic disease. Will check a Lexiscan stress Cardiolite to evaluate for progression of disease 3. History of Takotsubo's cardiomyopathy. Ejection fraction normalized as per last echocardiogram done in January of this year 4. History of CVA 5. Dyspnea. Resolved. Likely secondary to #1 above. Will check a d-dimer however 6. Acute on chronic kidney insufficiency 05/09/18 1139 <Electronically signed by Pat uAstin MD> Date Pat Austin MD Cosigner Signature (if applicable): Date CC: Pat Austin MD; Tracy Jones DO Signed BEDSIDE GLUCOSE Collected: 05/09/2018 Status: F Source: GISSEL 11:35 AM [facility] HOSPITAL REPOSITORY TYPE CODE TESTS RESULT OUT OF REFERENCE UNITS RANGE LAB L501.080 70-110 mg/dL High BEDSIDE GLU 308 Result Comment: MANAGEMENT OF PATIENT CARE PER NURSING PROTOCOL Performed By: #### L501.080 #### [facility] Point of Care [address] [place] [address] TROPONIN-I Collected: 05/09/2018 Status: F Source: FIREBAUGH 7:50 AM [facility] REPOSITORY Order Comment: 'TROP' Serial specimen #1, #2 or #3: 3 TYPE CODE TESTS RESULT OUT OF RANGE REFERENCE UNITS LAB L501.4010 <0.045 ng/mL High 0.387 TROPONIN-I Result Comment: TROPONIN-I EXPECTED VALUES <0.045 Negative 0.045 - 0.590 Consistent with Cardiac Damage > OR = 0.600 Critical Value Not every elevated troponin is indicative of MD. These values should be used with clinical judgement in examining the patient's clinical picture for diagnosis. To establish a diagnosis of MD versus myocardial injury, there must be a demonstrated rise and/or fall in the troponin values, in addition to ischemic symptoms, EKG changes, new regional wall motion abnormality, and/or angiographical evidence. PLEASE NOTE: REFERENCE RANGES EDITED 18 Performed By: #### L501.4010 #### [facility] [address] [place], [address] BEDSIDE GLUCOSE Collected: 05/09/2018 Status: F Source: FIREBAUGH 6:45 AM [facility] REPOSITORY TYPE CODE TESTS RESULT OUT OF REFERENCE UNITS RANGE LAB L501.080 70-110 mg/dL High BEDSIDE GLU 165 Result Comment: MANAGEMENT OF PATIENT CARE PER NURSING PROTOCOL Performed By: #### L501.080 #### [facility] Point of Care [address] [place] [address] HISTORY AND PHYSICAL Observed: 05/09/2018 Status: F Source: FIREBAUGH EXAM 5:51 AM [facility] REPOSITORY [facility] Medical Records Department [address] [place] [address] History and Physical 05/08/189 MR#: [id number] Acct: [id number] Name: KINGSLEY,LELANDSHIN Rep #: [id number] : 1935 82 From: Jone Olivares MD PCP: Tracy Jones DO Status: ADM KIANA Y Location: [place] [address] Problem List (1) DEMETRA (acute kidney injury) Status: Acute (2) SVT (supraventricular tachycardia) Status: Acute (3) Nonrheumatic tricuspid (valve) insufficiency Status: Chronic (4) Atherosclerotic heart disease of [place] coronary artery without angina pectoris Status: Chronic Qualifiers: Comment: Mild (5) Hypothyroidism Status: Chronic Qualifiers: (6) COPD (chronic obstructive pulmonary disease) Status: Chronic Qualifiers: History of Present Illness Date of Admission: 05/08/18 Chief Complaint: SOB The patient is a 82 year old female w/ h/o SVT, DMII, CAD, and HTN admitted for SOB. She is unable to provide any history. History is taken from family. Family said that she has been SOB for at least a day. Family member also noted that her heart rate was in the 170s and that was why she was sent to the ED. No cough. No fever. Past Medical History Past Medical History (Chronic Problems): Chronic Problems (Last Reviewed 03/01/18 @ 13:10 by Victoria Fu) Takotsubo cardiomyopathy (Chronic) Nonrheumatic tricuspid (valve) insufficiency (Chronic) Atherosclerotic heart disease of [place] coronary artery without angina pectoris (Chronic) Mild Hypothyroidism (Chronic) COPD (chronic obstructive pulmonary disease) (Chronic) Hyperlipidemia (Chronic) Type 2 diabetes mellitus (Chronic) Medical History: Medical History (Last Reviewed 03/01/18 @ 13:10 by Victoria Fu) Takotsubo cardiomyopathy (Chronic) I51.81 Nonrheumatic tricuspid (valve) insufficiency (Chronic) I36.1 Atherosclerotic heart disease of [place] coronary artery without angina pectoris (Chronic) I25.10 Mild Hypothyroidism (Chronic) E03.9 COPD (chronic obstructive pulmonary disease) (Chronic) J44.9 Hyperlipidemia (Chronic) E78.5 Type 2 diabetes mellitus (Chronic) E11.9 Anemia D64.9 CVA (cerebral vascular accident) I63.9 Depression F32.9 Osteoarthritis M19.90 Allergies Sulfa (Sulfonamide Antibiotics) Allergy (Unknown, Verified 05/08/18 18:32) Unknown adhesive tape Allergy (Verified 05/08/18 18:32) Other codeine Allergy (Verified 05/08/18 18:32) HEART ATTACK Latex, Natural Rubber Allergy (Verified 05/08/18 18:32) Rash levofloxacin [From Levaquin] Allergy (Verified 05/08/18 18:32) Anaphylaxis Penicillins Allergy (Verified 05/08/18 18:32) Rash acetaminophen [From Vicodin] Adverse Reaction (Verified 05/08/18 18:32) Chest tightness hydrocodone bitartrate [From Vicodin] Adverse Reaction (Verified 05/08/18 18:32) Chest tightness Home Medications: Ambulatory Orders Medication Instructions Recorded Levothyroxine [Synthroid] 25 mcg PO DAILY@0600 05/23/16 Surgical History: Surgical History (Last Reviewed 05/09/18 @ 05:43 by Jone Olivares MD) History of arthroplasty of right hip Z96.641 History of back surgery Z98.890 Lumbar Disc History of left hip replacement Z96.642 History of total bilateral knee replacement Z96.653 Surgical History: hysterectomy, total hip arthroplasty, - - Fractured femur Lives: Penitentiary Smoking Status: Never smoker Alcohol: None Drugs: None - *Family History Maternal History Items: No pertinent history Paternal History Items: No pertinent history Review of Systems Unable to obtain accurate/complete ROS d/t: Unable to obtain secondary to dementia. VTE Information - Inpt Only VTE Present on Admission: No VTE Mechan Device Prophylaxis: SCD's VTE Pharm Prophylaxis ordered?: Yes Patient Problems: Active and Suspected Problems (Last Reviewed 03/01/18 @ 13:10 by Victoria Fu) DEMETRA (acute kidney injury) (Acute) - Physical Exam General: Confused, Disoriented HEENT: Atraumatic, PERRLA, EOMI, Normocephalic Neck: Supple, No JVD, Negative Carotid Bruits Lungs: Diminished, Short of Breath Cardiovascular: Irregular Rate, Murmur Abdomen: Bowel Sounds Present, Soft, Non Tender Extremities: No edema, Capillary Refill Less than 3 Seconds Skin: No rashes, No breakdown Musculoskeletal: No Tenderness to Palpation of Joints or Extremities Neurological: Cranial nerves II-XII grossly intact Psych/Mental Status: Normal Affect, Appropriate Vital Signs Temp Pulse Resp BP Pulse Ox 97.7 F L 80 15 123/69 H 97 05/08/18 18:28 05/08/18 19:41 05/08/18 19:41 05/08/18 19:41 05/08/18 19:41 Oxygen Flow Rate (L/min) 2 Oxygen Delivery Method Room Air Weight: 78.3 kg Body Mass Index (BMI) 29.6 Laboratory Tests Past 24 Hrs WBC 9.7 RBC 3.76 L Hgb 12.1 Hct 37.3 MCV 99.2 H MCH 32.2 H MCHC 32.4 RDW 13.4 RDW Differential 48.6 H Plt Count 306 Assessment/Plan All Active Problems (Last Reviewed 03/01/18 @ 13:10 by Victoria Fu) DEMETRA (acute kidney injury) (Acute) Pneumococcal pneumonia (Acute) SVT (supraventricular tachycardia) (Acute) 82 year old female w/ h/o SVT, DMII, CAD, and HTN admitted for SOB. 1) SOB: Probably secondary to SVT. Converted with adenosine. Chest xray disclosed improved but persistent irregular density in the right lung base. Recommend further evaluation with CT scan. Otherwise negative. Will get trops. Monitor. 2) Elevated trops: Probably type II MD. Will consult cards. Probably no aggressive care give family deciding on hospice. Resume meds. 3) DEMETRA: Probably azotemia. Resume hydration. Improving w/ hydration. 4) Hyperglycemia: H/o DMII. Resume meds. Added sliding scale and accucheck. 05/09/18 0551 <Electronically signed by Jone Olivares MD> Date Jone Olivares MD Cosigner Signature: Date (if applicable) CC: Tracy Jones DO; Jone Olivares MD Signed PROTHROMBIN TIME W/INR Collected: 05/09/2018 Status: F Source: GISSEL 4:33 AM [facility] REPOSITORY TYPE CODE TESTS RESULT OUT OF RANGE REFERENCE UNITS LAB L300.4150 11.7-14.9 SECONDS Normal PROTIME 14.0 LAB L300.4200 Normal INR 1.1 Performed By: #### L300.3900 #### [facility] [address] [place], [address] TROPONIN-I Collected: 05/09/2018 Status: F Source: FIREBAUGH 4:33 AM [facility] REPOSITORY Order Comment: 'TROP' Serial specimen #1, #2 or #3: 2 TYPE CODE TESTS RESULT OUT OF RANGE REFERENCE UNITS LAB L501.4010 <0.045 ng/mL High 0.383 TROPONIN-I Result Comment: TROPONIN-I EXPECTED VALUES <0.045 Negative 0.045 - 0.590 Consistent with Cardiac Damage > OR = 0.600 Critical Value Not every elevated troponin is indicative of MD. These values should be used with clinical judgement in examining the patient's clinical picture for diagnosis. To establish a diagnosis of MD versus myocardial injury, there must be a demonstrated rise and/or fall in the troponin values, in addition to ischemic symptoms, EKG changes, new regional wall motion abnormality, and/or angiographical evidence. PLEASE NOTE: REFERENCE RANGES EDITED 18 Performed By: #### L501.4010 #### [facility] [address] [place], [address] BASIC METABOLIC Collected: 05/09/2018 Status: F Source: FIREBAUGH PROFILE ([facility]) 4:33 AM [facility] REPOSITORY TYPE CODE TESTS RESULT OUT OF RANGE REFERENCE UNITS LAB L501.0100 74-106 mg/dL High GLU 175 Result Comment: Fasting Glucose result greater than or equal to 126 mg/dL suggests DIABETES MELLITUS per A.D.A. criteria. Please note revised GLUCOSE reference range effective 2017. LAB L501.1000 7-18 mg/dL High BUN 24 LAB L501.1100 0.55-1.02 mg/dL High CREAT,SERUM 1.40 Result Comment: The validity of the calculated GFR AND GFRAA in patients over 70 years has not been determined. Clinical correlation is essential. LAB L501.1110 >60 mL/min Low EST GFR 38 Result Comment: Non- GFR Calc LAB L501.1115 >60 mL/min Low EST GFR - AA 46 Result Comment: GFR Calc LAB L501.1255 ml/min Normal Estimated CRCL 29.50 LAB L501.1300 10-20 RATIO Normal BUN/CRE 17.1 LAB L501.2200 8.5-10 mg/dL Low .1 CA 8.3 LAB L501.5300 136-14 mmol/L Normal 5 NA 141 LAB L501.5600 3.5-5. mmol/L Normal 1 K 4.8 LAB L501.5900 98-107 mmol/L High CL 108 LAB L501.6100 21.0-3 mmol/L Normal 2.0 CO2 23.0 LAB L501.6200 5-15 Normal GAP 10 Performed By: #### L500.2500 #### [facility] [address] [place], [address] EMERGENCY DEPARTMENT Observed: 05/09/2018 Status: F Source: FIREBAUGH SUMMARY 2:01 AM [facility] REPOSITORY [facility] Medical Records Department [address] [facility] [place] [address] Emergency Department Summary 05/08/182023 MR#: [id number] Acct: [id number] Name: JIMENEZ WYNN Rep #: [id number] : 1935 82 From: Blake Powers MD PCP: Tracy Jones DO Status: ADM KIANA - ER Visit Summary Date of Service: 05/08/18 Chief Complaint: Palpitations History of Present Illness: The patient is a [address] Jones and Dr. Ross. She reports she has palpitations began at 7:00 this morning. She denies any chest pain with it. She has felt that it makes her short of breath. Review of systems: General: No fever, chills, cold sweats. Cardiovascular: No chest pain. Respiratory: No cough. Gastrointestinal: No abdominal pain, nausea, vomiting, diarrhea, melena, or hematochezia. Genitourinary: No dysuria, frequency, hematuria. Skin: No rash. Neuro: No headache, numbness, weakness. Physical Examination: Vitals: 97.7, 115/93, 174, 24, 97% room air which is not hypoxic. General: Well-nourished and well-developed. Head: Normocephalic atraumatic. Neck: Supple, no lymphadenopathy. No JVD. Nontender. Cardiovascular: Tachycardic regular rhythm. No murmurs. Respiratory: No respiratory distress. Clear to auscultation bilaterally. Abdominal: Soft, nontender, nondistended, normal bowel sounds. No guarding, rebound, or peritoneal signs. Back: Nontender. Extremities: Nontender, no edema. Skin: Normal color, no rash. Neurologic: Alert and oriented 3. Cranial nerves II through XII are intact. Normal strength and sensation. Psych: Normal affect. Test Results: EKG is SVT at 174. CBC is more for segment neutrophils 7106 15. Chem-7 is more for sodium 135, potassium 5.2 (moderate hemolysis), CO2 of 20, BUN 25, creatinine 1.94, glucose of 339. Creatinine has ranged between 0.99-2.48 in 2018. Troponin 0 0.082. Clinical Impression(s) from Imaging Studies Chest X-Ray 05/08/18 18:37 IMPRESSION: Improved but persistent irregular density in the right lung base. Recommend further evaluation with CT scan. Otherwise negative. Electronically Signed: Jose G Vo MD at 18:54 EDT , Service support , Emergency Department Course and Treatment: Patient had an IV placed. She was given 6 mg of adenosine IV and converted into sinus rhythm. Treatment Plan: Patient will be discussed with Dr. Olivares. Given her acute renal insufficiency and hyperglycemia feel she warrants observation and further treatment/evaluation. Disposition: Admitted in improved condition. Impression: 1. SVT. 2. Conversion with adenosine. 3. Hyperglycemia with qrq-fxiebid-uaeluxogp diabetes mellitus. 4. Acute renal insufficiency. 5. Critical care time 30 minutes. This note was generated with Connect dictation software. It may contain incorrect words, spelling, and punctuation that were not noted in review of the chart prior to signing ED Disposition - Plan for ED Patient: Chief Complaint: Palpitations Referrals: Tracy Jones, DO [Primary Care Provider] - What to do if you have Problems For any increased pain, shortness of breath, bleeding, nausea or vomiting, chest pain, or any unexpected problems, contact your Primary Care Provider. Call [facility] ([phone]) or report to the closest Emergency Room. Call 911 if necessary. 05/09/18 0201 <Electronically signed by Blake Powers MD> Date Blake Gray Signature (If Indicated): Date CC: Tracy RestrepoBenja DO TROPONIN-I Collected: 05/09/2018 Status: F Source: GISSEL 1:58 AM [facility] REPOSITORY Order Comment: 'TROP' Serial specimen #1, #2 or #3: 1 TYPE CODE TESTS RESULT OUT OF RANGE REFERENCE UNITS LAB L501.4010 <0.045 ng/mL High 0.372 TROPONIN-I Result Comment: TROPONIN-I EXPECTED VALUES <0.045 Negative 0.045 - 0.590 Consistent with Cardiac Damage > OR = 0.600 Critical Value Not every elevated troponin is indicative of MD. These values should be used with clinical judgement in examining the patient's clinical picture for diagnosis. To establish a diagnosis of MD versus myocardial injury, there must be a demonstrated rise and/or fall in the troponin values, in addition to ischemic symptoms, EKG changes, new regional wall motion abnormality, and/or angiographical evidence. PLEASE NOTE: REFERENCE RANGES EDITED 18 Performed By: #### L501.4010 #### [facility] [address] [place], [place], [address] BEDSIDE GLUCOSE Collected: 05/08/2018 Status: F Source: [place] 11:31 PM [facility] REPOSITORY TYPE CODE TESTS RESULT OUT OF REFERENCE UNITS RANGE LAB L501.080 70-110 mg/dL High BEDSIDE GLU 210 Result Comment: MANAGEMENT OF PATIENT CARE PER NURSING PROTOCOL Performed By: #### L501.080 #### [facility] Point of Care [address] [place] [address] CBC W/DIFF, AUTOMATED Collected: 05/08/2018 Status: F Source: [place] 6:35 PM [facility] REPOSITORY TYPE CODE TESTS RESULT OUT OF RANGE REFERENCE UNITS LAB L100.1000 4.4-11.0 K/mm3 Normal WBC 9.7 LAB L100.1200 4.2-5.4 M/mm3 Low RBC 3.76 LAB L100.1300 12.0-15.0 g/dl Normal HGB 12.1 LAB L100.1400 37-47 % Normal HCT 37.3 LAB L100.1500 81-99 fL High MCV 99.2 LAB L100.1600 27.0-32.0 pg High MCH 32.2 LAB L100.1700 32-36 g/gl Normal MCHC 32.4 LAB L100.1810 11.6-14.6 % Normal RDW CV 13.4 LAB L100.1820 35.1-43.9 fl High RDW SD 48.6 LAB L100.1900 150-450 K/mm3 Normal PLT 306 LAB L100.2000 6.2-12.0 fl Normal MPV 9.2 LAB L100.2100 47-70 % High NEUT% 72.0 LAB L100.2200 19-41 % Low LY% 14.7 LAB L100.2300 0-10 % Normal MONO% 8.8 LAB L100.2400 0-5 % Normal EO% 4.0 LAB L100.2500 0-1 % Normal BASO% 0.3 LAB L100.2550 0.0-0.9 % Normal IM GRAN % 0.200 Result Comment: IG% - Immature Granulocytes (promyelocytes, myelocytes and metamyelocytes) > 1% indicates that a LEFT SHIFT is Present. LAB L100.2620 2.0-7.7 X10 3/uL Normal Absolute Neut 7.0 LAB L100.2720 0.83-4.51 X10 3/ul Normal Absolute Lymph 1.42 Performed By: #### L100.0100 #### [facility] [address] [place], [place], [address] BASIC METABOLIC Collected: 05/08/2018 Status: F Source: [place] PROFILE ([facility]) 6:35 PM [facility] REPOSITORY TYPE CODE TESTS RESULT OUT OF RANGE REFERENCE UNITS LAB L501.0100 74-106 mg/dL High GLU 339 Result Comment: Glucose result greater than or equal to 200 mg/dL suggests DIABETES MELLITUS per A.D.A. criteria. Please note revised GLUCOSE reference range effective 2017. LAB L501.1000 7-18 mg/dL High BUN 25 LAB L501.1100 0.55-1.02 mg/dL High CREAT,SERUM 1.94 Result Comment: The validity of the calculated GFR AND GFRAA in patients over 70 years has not been determined. Clinical correlation is essential. LAB L501.1110 >60 mL/min Low EST GFR 26 Result Comment: Non- GFR Calc LAB L501.1115 >60 mL/min Low EST GFR - AA 32 Result Comment: GFR Calc LAB L501.1255 ml/min Normal Estimated CRCL 19.64 LAB L501.1300 10-20 RATIO Normal BUN/CRE 12.9 LAB L501.2200 8.5-10 mg/dL Normal .1 CA 9.1 LAB L501.5300 136-14 mmol/L Low 5 NA 135 LAB L501.5600 3.5-5. mmol/L High 1 K 5.2 Result Comment: Moderate Hemolysis, Result may be falsely increased. LAB L501.5900 98-107 mmol/L Normal CL 101 LAB L501.6100 21.0-32.0 mmol/L Low CO2 20.0 LAB L501.6200 5-15 Normal GAP 14 Performed By: #### L500.2500, L501.4010, L501.9520 #### [facility] [address] [place], [address] TROPONIN-I Collected: 05/08/2018 Status: F Source: [place] 6:35 PM [facility] REPOSITORY TYPE CODE TESTS RESULT OUT OF RANGE REFERENCE UNITS LAB L501.4010 <0.045 ng/mL High 0.082 TROPONIN-I Result Comment: TROPONIN-I EXPECTED VALUES <0.045 Negative 0.045 - 0.590 Consistent with Cardiac Damage > OR = 0.600 Critical Value Not every elevated troponin is indicative of MD. These values should be used with clinical judgement in examining the patient's clinical picture for diagnosis. To establish a diagnosis of MD versus myocardial injury, there must be a demonstrated rise and/or fall in the troponin values, in addition to ischemic symptoms, EKG changes, new regional wall motion abnormality, and/or angiographical evidence. PLEASE NOTE: REFERENCE RANGES EDITED 18 Performed By: #### L500.2500, L501.4010, L501.9520 #### [facility] [address] [place], [address] THYROID STIM HORMONE Collected: 05/08/2018 Status: F Source: [place] ([facility]) 6:35 PM [facility] REPOSITORY TYPE CODE TESTS RESULT OUT OF RANGE REFERENCE UNITS LAB L501.9520 0.358-3.74 uIU/mL Normal TSH 2.96 Performed By: #### L500.2500, L501.4010, L501.9520 #### [facility] [address] [place], [address] CHEST 1 VIEW Observed: 05/08/2018 Status: F Source: [place] (PORTABLE) 6:32 PM [facility]OSPITAL REPOSITORY [facility] Imaging Services [address] [facility] [place] [address] Chest 1 View (Portable) MR#: [id number] Acct: [id number] Name: JIMENEZ WYNN Rep #: [id number] : 1935 F 82 From: Jose G Vo MD PCP: Tracy Jones DO Status: REG ER Study: Chest 1 View (Portable) Date of Exam: 05/08/18 Exam# [id number] Ordering Dr: Blake Powers MD STUDY: X-RAY CHEST REASON FOR EXAM: Female, 82 years old. Chest pain and palpitations. TECHNIQUE: Single AP portable view of the chest. COMPARISON: 03/01/2018. FINDINGS: Normal lung volumes. Irregular density in the right lung base, less prominent than on the previous exam. Probable scarring but recommend CT scan for further evaluation. No effusions. Normal size heart. Normal mediastinum and aruna. Normal visualized pulmonary arteries. There is atherosclerotic tortuosity of the aortic arch and descending thoracic aorta. The visualized bones and joints show degenerative changes. There is no demonstrated abnormality of the visualized soft tissue structures of the upper abdomen. RAD/Chest 1 View (Portable) IMPRESSION: Improved but persistent irregular density in the right lung base. Recommend further evaluation with CT scan. Otherwise negative. Electronically Signed: Jose G Vo MD at 18:54 EDT , Service support , CC: Tracy Jones DO; Blake Powers MD Sales Manager: Signed CBC W/DIFF, AUTOMATED Collected: 04/14/2018 Status: F Source: [place] 5:40 AM [facility] REPOSITORY Order Comment: ROOM [address] [place] TYPE CODE TESTS RESULT OUT OF RANGE REFERENCE UNITS LAB L100.1000 4.4-11.0 K/mm3 Normal WBC 7.8 LAB L100.1200 4.2-5.4 M/mm3 Low RBC 3.24 LAB L100.1300 12.0-15.0 g/dl Low HGB 10.7 LAB L100.1400 37-47 % Low HCT 32.4 LAB L100.1500 81-99 fL High MCV 100.0 LAB L100.1600 27.0-32.0 pg High MCH 33.0 LAB L100.1700 32-36 g/gl Normal MCHC 33.0 LAB L100.1810 11.6-14.6 % Normal RDW CV 13.4 LAB L100.1820 35.1-43.9 fl High RDW SD 49.6 LAB L100.1900 150-450 K/mm3 Normal PLT 238 LAB L100.2000 6.2-12.0 fl Normal MPV 9.0 LAB L100.2100 47-70 % Normal NEUT% 50.4 LAB L100.2200 19-41 % Normal LY% 20.6 LAB L100.2300 0-10 % Normal MONO% 8.4 LAB L100.2400 0-5 % High EO% 19.9 LAB L100.2500 0-1 % Normal BASO% 0.6 LAB L100.2550 0.0-0.9 % Normal IM GRAN % 0.100 Result Comment: IG% - Immature Granulocytes (promyelocytes, myelocytes and metamyelocytes) > 1% indicates that a LEFT SHIFT is Present. LAB L100.2620 2.0-7.7 X10 3/uL Normal Absolute Neut 3.9 LAB L100.2720 0.83-4.51 X10 3/ul Normal Absolute Lymph 1.60 Performed By: #### L100.0100 #### [facility] [address] [place], [address] HEMOGLOBIN A1C Collected: 04/14/2018 Status: F Source: [place] 5:40 AM [facility] REPOSITORY Order Comment: ROOM 204 [place] TYPE CODE TESTS RESULT OUT OF RANGE REFERENCE UNITS LAB L501.9985 4.2-6.3 % High HGB A1C 9.1 Performed By: #### L501.9985 #### [facility] [address] [facility] [place], [address] COMPREHENSIVE METABOLIC Collected: 04/14/2018 Status: F Source: [facility] 5:40 AM [facility] REPOSITORY Order Comment: ROOM 204 [place] TYPE CODE TESTS RESULT OUT OF RANGE REFERENCE UNITS LAB L501.0100 74-106 mg/dL High GLU 131 Result Comment: Fasting Glucose result greater than or equal to 126 mg/dL suggests DIABETES MELLITUS per A.D.A. criteria. Please note revised GLUCOSE reference range effective 2017. LAB L501.1000 7-18 mg/dL Normal BUN 17 LAB L501.1100 0.55-1.02 mg/dL High CREAT,SERUM 1.28 Result Comment: The validity of the calculated GFR AND GFRAA in patients over 70 years has not been determined. Clinical correlation is essential. LAB L501.1110 >60 mL/min Low EST GFR 43 Result Comment: Non- GFR Calc LAB L501.1115 >60 mL/min Low EST GFR - AA 51 Result Comment: GFR Calc LAB L501.1300 10-20 RATIO Normal BUN/CRE 13.3 LAB L501.1500 6.4-8.2 g/dL Low T PROT 6.1 LAB L501.1800 3.2-5.0 g/dL Low ALB 2.9 LAB L501.1950 2.2-4.2 g/dL Normal GLOB 3.2 LAB L501.2000 0.9-2.4 RATIO Normal A/G 0.9 LAB L501.2200 8.5-10.1 mg/dL Low CA 8.1 LAB L501.4100 15-37 U/L Low AST 14 LAB L501.4305 45-117 U/L High ALK P 123 LAB L501.4405 13-56 U/L Normal ALT 19 LAB L501.4600 0.20-1.00 mg/dL T Normal BILI 0.50 LAB L501.5300 136-145 mmol/L NA Normal 141 LAB L501.5600 3.5-5.1 mmol/L K Normal 4.5 LAB L501.5900 98-107 mmol/L CL Normal 107 LAB L501.6100 21.0-32.0 mmol/L Normal CO2 25.0 LAB L501.6200 5-15 Normal GAP 9 Performed By: #### L500.4050, L503.6150 #### [facility] [address] [facility] [place], [address] IRON Collected: 04/14/2018 Status: F Source: [place] 5:40 AM [facility] REPOSITORY Order Comment: ROOM 204 [place] TYPE CODE TESTS RESULT OUT OF RANGE REFERENCE UNITS LAB L503.6150 50-170 ug/dL Low IRON 42 Performed By: #### L500.4050, L503.6150 #### [facility] [address] [place], [address] VITAMIN B12 Collected: 04/14/2018 Status: F Source: [place] 5:40 AM [facility] REPOSITORY Order Comment: ROOM 204 [place] TYPE CODE TESTS RESULT OUT OF RANGE REFERENCE UNITS LAB L503.0105 211-911 pg/mL Normal Vitamin B12 350 Performed By: #### L503.0105 #### [facility] [address] [place], [address] 12 LEAD ELECTROCARDIOGRAM Observed: 03/25/2018 Status: F Source: [place] 10:39 AM [facility] REPOSITORY [facility] Cardiovascular Services [address] [place] [address] 12 Lead EKG 03/01/18 1402 MR#: [id number] Acct: [id number] Name: JIMENEZ WYNN Rep #: [id number] : 1935 82 From: Charly Ross MD Attending Dr: Yefri Bartholomew DO Status: DIS IN Ordering Dr: Jeremi Rosales DO Date: 03/01/18 Location: U Sex: F C Admitted: 03/01/18 Test Reason : HYPOTENSION Blood Pressure : / mmHG Vent. Rate : 164 BPM Atrial Rate : 174 BPM P-R Int : 000 ms QRS Dur : 086 ms QT Int : 282 ms P-R-T Axes : 000 -31 084 degrees QTc Int : 465 ms Supraventricular tachycardia Left axis deviation Abnormal ECG Confirmed by CHARLY ROSS MD ([id number]), video tape editor SADIQ BUENO ([id number]) on 03/03/2018 9:08:14 AM Referred By: DARA Confirmed By:CHARLY ROSS MD 03/03/18 09 Date Charly Ross MD CC: Yefri Bartholomew DO; Tracy Jones DO; Jeremi Rosales DO Signed 12 LEAD ELECTROCARDIOGRAM Observed: 03/03/2018 Status: F Source: [place] 6:10 PM [facility] REPOSITORY [facility] Cardiovascular Services [address] [place] [address] 12 Lead EKG 03/01/18 1402 MR#: [id number] Acct: [id number] Name: JIMENEZ WYNN Rep #: [id number] : 1935 82 From: Charly Ross MD Attending Dr: Status: PRE ER Ordering Dr: Jeremi Rosales DO Date: 03/01/18 Location: ED Sex: F C Admitted: Test Reason : HYPOTENSION Blood Pressure : / mmHG Vent. Rate : 164 BPM Atrial Rate : 174 BPM P-R Int : 000 ms QRS Dur : 086 ms QT Int : 282 ms P-R-T Axes : 000 -31 084 degrees QTc Int : 465 ms Supraventricular tachycardia Left axis deviation Abnormal ECG Confirmed by CHARLY ROSS MD ([id number]), video tape editor SADIQ BUENO ([id number]) on 03/03/2018 9:08:14 AM Referred By: DARA Confirmed By:CHARLY ROSS MD 03/03/18907 Date Charly Ross MD CC: Tracy Jones DO; Jeremi Rosales DO Signed 12 LEAD ELECTROCARDIOGRAM Observed: 03/03/2018 Status: F Source: [place] 6:10 PM [facility] REPOSITORY [facility] Cardiovascular Services [address] [place] [address] 12 Lead EKG 03/01/18 1416 MR#: [id number] Acct: [id number] Name: JIMENEZ WYNN Rep #: [id number] : 1935 82 From: Charly Ross MD Attending Dr: Yefri Bartholomew DO Status: DIS IN Ordering Dr: Jeremi Rosales DO Date: 03/01/18 Location: [facility] Sex: F C Admitted: 03/01/18 Test Reason : REPEAT Blood Pressure : / mmHG Vent. Rate : 086 BPM Atrial Rate : 086 BPM P-R Int : 132 ms QRS Dur : 084 ms QT Int : 356 ms P-R-T Axes : 039 -34 026 degrees QTc Int : 426 ms Normal sinus rhythm Left axis deviation Poor R wave progression Abnormal ECG Confirmed by CODY MERCER, CHARLY ([id number]), video tape editor SADIQ BUENO ([id number]) on 03/03/2018 9:08:35 AM Referred By: PRANAV Confirmed By:CHARLY ROSS MD 03/03/18907 Date Charly Ross MD CC: Yefri Rosales DO Signed DISCHARGE SUMMARY Observed: 03/03/2018 Status: F Source: [place] 1:27 PM [facility] HOSPITAL REPOSITORY [facility] Medical Records Department [address] [place] [address] Discharge Summary 03/03/18 1022 MR#: [id number] Acct: [id number] Name: JIMENEZ WYNN Rep #: [id number] : 1935 82 From: Brandi PATTERSON PCP: Tracy Jones DO Status: ADM IN Y Location: [facility] [id number] <Brandi Simpson - Last Filed: 03/03/18 10:31> Discharge Date and Diagnosis Date of Admission: 03/01/18 Date of Discharge: 03/03/18 - Primary Discharge Diagnosis Active and Suspected Problems (Last Reviewed 03/01/18 @ 13:10 by Victoria Fu) 1. SVT 2. Acute community-acquired right lower lobe pneumonia, suspected gram-negative 3. Acute kidney injury on chronic kidney disease stage III 4. Hyperkalemia-secondary to #3. 5. Elevated troponin-demand ischemia secondary to #1. - Secondary Discharge Diagnosis Chronic Problems (Last Reviewed 03/01/18 @ 13:10 by Victoria Fu) Takotsubo cardiomyopathy (Chronic) Nonrheumatic tricuspid (valve) insufficiency (Chronic) Atherosclerotic heart disease of [place] coronary artery without angina pectoris (Chronic) Mild Hypothyroidism (Chronic) COPD (chronic obstructive pulmonary disease) (Chronic) Hyperlipidemia (Chronic) Type 2 diabetes mellitus (Chronic) Hospital Course and Treatment Dr. Cueto- Cardiology Operations: None Procedures: 2-D Echocardiogram Summary of Care Provided: Patient is an 82-year-old female admitted 03/01/18 due to SVT and shortness of breath. Patient was sent from Dr. Ross's office. She has a past medical history of takotsubo cardiomyopathy, CAD, hypothyroidism, COPD, hyperlipidemia, type 2 diabetes mellitus, hypertension, depression. 1. SVT-resolved status post chemical cardioversion with 2 doses of IV adenosine. No further events on telemetry. TSH within normal limits. Begin low- dose beta-katty per cardiology recommendation. Lisinopril discontinued. Follow-up with Dr. Cueto as outpatient in 1-2 weeks. 2. Acute community-acquired right lower lobe pneumonia, suspect gram-negative organism-chest x-ray on admission showed right lower lobe infiltrate. Blood cultures . Send sputum for culture shows staph, suspect contamination. Patient received IV azithromycin and Rocephin. Leukocytosis improved. Patient afebrile. Urine for strep and Legionella negative Patient will be discharged on further oral antibiotic therapy with cefdinir and doxycycline. 3. Acute kidney injury on chronic kidney disease stage III- resolved with IV fluids. 4. Hyperkalemia-secondary #3. Resolved. Patient received Kayexalate, sodium bicarb and IV insulin. 5. Elevated troponin-suspect demand ischemia secondary to #1. Cardiology consulted. Echocardiogram shows an ejection fraction of 65%, mild mitral valve insufficiency, mild tricuspid valve insufficiency, mild aortic valve calcification, RVSP estimated to be 37 mmHg. Continue outpatient follow-up with Dr. Cueto. 6. CAD-continue aspirin, statin. Low-dose beta-katty added. 7. History of takotsubo cardiomyopathy-Echocardiogram August 2016 showed an EF of 45%. Repeat echocardiogram shows an ejection fraction of 65%, mild mitral valve insufficiency, mild tricuspid valve insufficiency, mild aortic valve calcification, RVSP estimated to be 37 mmHg. 8. Type 2 diabetes mellitus-hemoglobin A1c December 2017 was 9.1%. Blood glucose elevated intermittently during admission. Metformin regimen has been on hold. Continue home Levemir regimen. Recommend Accu-Cheks before meals at bedtime with addition of sliding scale insulin if blood sugar is not improved at discharge. 9. Hypothyroidism-TSH within normal limits. Continue home Synthroid regimen. 10. Hyperlipidemia-continue statin. 11. Hypertension-home lisinopril regimen discontinued. Started on metoprolol 12.5 mg twice daily. 12. Depression-previously on SSRI. No longer taking. 13. Chronic macrocytic anemia-stable. General: Alert, Oriented x3, Cooperative, No apparent distress HEENT: Atraumatic, PERRLA, EOMI, Normocephalic Oral: Dry Mucosa Neck: Supple, No JVD, Negative Carotid Bruits Lungs: Diminished, clear to auscultation Cardiovascular: Regular rate, Regular Rhythm, Normal S1, Normal S2, No murmurs Abdomen: Bowel Sounds Present, Soft, Non Tender, Non-Distended Extremities: No clubbing, No cyanosis, No edema, Capillary Refill Less than 3 Seconds Skin: No rashes, No breakdown Musculoskeletal: No Tenderness to Palpation of Joints or Extremities Neurological: Cranial nerves II-XII grossly intact, Neuro grossly intact Psych/Mental Status: Normal Affect, Appropriate Patient seen and examined prior to discharge. Physical assessment as noted above. Patient is stable for discharge to assisted living facility. This patient was seen by LEOANRDO Alejandra under the supervision of Dr. Bartholomew. Discharge Activity: Return to Normal Activity Call your doctor if you observe: Shortness of breath, Dizziness, Fainting spells, Chest pain, Increased palpitations (irregular heartbeat) Home Medications: Medications to take at Discharge Levothyroxine [Synthroid] 25 mcg PO DAILY@0600 05/23/16 Meloxicam [Mobic] 15 mg PO QODAY 05/23/16 Multivit with Calcium,Iron,Min [Multiple Vitamins For Women] 1 tab PO DAILY 05/23/16 Trazodone HCl 50 mg PO QHS 05/23/16 Insulin Detemir [Levemir FlexPen] 24 units SC QHS 03/26/17 Ubidecarenone [Coenzyme Q-10] 200 mg PO DAILY 03/26/17 Vitamin E 400 unit PO DAILY 03/26/17 ergocalciferol (vitamin D2) 50,000 unit capsule 50,000 unit PO QMONTH 01/15/18 Atorvastatin Calcium [Lipitor] 20 mg PO QHS 03/01/18 Fluticasone/Salmeterol [Advair 500-50 Diskus] 1 each IH BID 03/01/18 Metformin HCl [Glucophage] 1,000 mg PO BIDCM 03/01/18 megestrol 20 mg tablet 10 mg PO TID tab 03/01/18 ondansetron HCl 4 mg tablet 4 mg PO Q8H PRN tab 03/01/18 oxybutynin chloride ER 10 mg tablet,extended release 24 hr 10 mg PO QHS 03/01/18 Aspirin [Aspirin, Baby] 81 mg PO DAILY@0800 #30 tab.chew 03/03/18 Cefdinir 300 mg PO BID #10 cap 03/03/18 Doxycycline 100 mg PO BID #10 cap 03/03/18 Metoprolol Tartrate [Lopressor (beta katty)] 12.5 mg PO BID #60 tab 03/03/18 Following Prescrptions Were Given to Patient: Aspirin [Aspirin, Baby] 81 mg PO DAILY@0800 #30 tab.chew Cefdinir 300 mg PO BID #10 cap Doxycycline 100 mg PO BID #10 cap Metoprolol Tartrate [Lopressor (beta katty)] 12.5 mg PO BID #60 tab Primary Care Physician: Benja,Tracy, DO [Primary Care Provider] - Please follow up with your Primary Care Physician in: 1 Week Please Follow Up With: Markus Cuteo MD When: 1-2 Weeks Disposition: Asstd Living/Non-Skill NM Minutes spent on discharge:: 35 Patient Condition:: Stable Medical Necessity - Tobacco Use Smoking Status: Never smoker Meaningful Use Info Meaningful Use Diagnoses (Choose all that apply): None applicable <Yefri Bartholomew - Last Filed: 03/03/18 13:25> Discharge Date and Diagnosis - Secondary Discharge Diagnosis Chronic Problems (Last Reviewed 03/01/18 @ 13:10 by Victoria Fu) Takotsubo cardiomyopathy (Chronic) Nonrheumatic tricuspid (valve) insufficiency (Chronic) 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 I agree with the above WATER TAXI BOAT MATE note. The patient is a 82 year old F presents with SVT. Received 2 rounds of adenosine. Started on low-dose beta-katty. She did well. Patient also found to have a RLL infiltration. Started on cetriaxone and azithromycin. Did well with this, too. Discharged with doxycycline and cefdinir.[] Discharge Diet: No Restrictions Discharge Activity: Return to Normal Activity Call your doctor if you observe: Shortness of breath, Dizziness, Fainting spells, Chest pain, Increased palpitations (irregular heartbeat) Disposition: Asstd Living/Non-Skill NM Patient Condition:: Stable Medical Necessity - Tobacco Use Smoking Status: Never smoker Meaningful Use Info Meaningful Use Diagnoses (Choose all that apply): None applicable Code Visit Inpatient E AND M: 73738 Disch Hosp 03/03/18 1032 <Electronically signed by Brandi Simpson WATER TAXI BOAT MATE-C> Date Brandi Simpson [employer] BOAT MATE-C 03/03/18 1327<Electronically signed by Yefri Bartholomew DO> Cosigner Signature (if applicable): Date Yefri Bartholomew DO CC: LEONARDO Simpson; Yefri Bartholomew DO; Tracy Jones DO Signed BEDSIDE GLUCOSE Collected: 03/03/2018 Status: F Source: [place] 11:18 AM [facility] REPOSITORY TYPE CODE TESTS RESULT OUT OF REFERENCE UNITS RANGE LAB L501.080 70-110 mg/dL High BEDSIDE GLU 413 Result Comment: MANAGEMENT OF PATIENT CARE PER NURSING PROTOCOL Performed By: #### L501.080 #### [facility] Point of Care [address] [place] [address] DISCHARGE INSTRUCTION Observed: 03/03/2018 Status: F Source: [place] 10:22 AM [facility] REPOSITORY [facility] Medical Records Department [address] [place] [address] Instructions for Home/Discharge Instructions 03/03/18 1019 MR#: [id number] Acct: [id number] Name: JIMENEZ WYNN Rep #: [id number] : 1935 82 From: Brandi PATTERSON PCP: Tracy Jones DO Status: ADM IN - Discharge Diagnoses Current Active Problems: Current Active and Chronic Problems (Last Reviewed 03/01/18 @ 13:10 by Victoria Fu) Pneumococcal pneumonia (Acute) SVT (supraventricular tachycardia) (Acute) You will use the following diet at home:: Other - Carb control Discharge Activity: Return to Normal Activity Call your doctor if you observe: Shortness of breath, Dizziness, Fainting spells, Chest pain, Increased palpitations (irregular heartbeat) Allergies/Adverse Reactions: Allergies Sulfa (Sulfonamide Antibiotics) Allergy (Unknown, Verified 03/01/18 14:05) Unknown adhesive tape Allergy (Verified 03/01/18 14:05) Other codeine Allergy (Verified 03/01/18 14:05) HEART ATTACK Latex, Natural Rubber Allergy (Verified 03/01/18 14:05) Rash levofloxacin [From Levaquin] Allergy (Verified 03/01/18 14:05) Anaphylaxis Penicillins Allergy (Verified 03/01/18 14:05) Rash acetaminophen [From Vicodin] Adverse Reaction (Verified 03/01/18 14:05) Chest tightness hydrocodone bitartrate [From Vicodin] Adverse Reaction (Verified 03/01/18 14:05) Chest tightness Medications to take at Discharge Levothyroxine [Synthroid] 25 mcg PO DAILY 05/23/16 Meloxicam [Mobic] 15 mg PO QODAY 05/23/16 Multivit with Calcium,Iron,Min [Multiple Vitamins For Women] 1 tab PO DAILY 05/23/16 Trazodone HCl 50 mg PO QHS 05/23/16 Insulin Detemir [Levemir FlexPen] 24 units SC DAILY 03/26/17 Ubidecarenone [Coenzyme Q-10] 200 mg PO DAILY 03/26/17 Vitamin E 400 unit PO DAILY 03/26/17 ergocalciferol (vitamin D2) 50,000 unit capsule 50,000 unit PO QMONTH 01/15/18 Atorvastatin Calcium [Lipitor] 20 mg PO QHS 03/01/18 Fluticasone/Salmeterol [Advair 500-50 Diskus] 1 each IH BID 03/01/18 Metformin HCl [Glucophage] 1,000 mg PO BIDCM 03/01/18 megestrol 20 mg tablet 10 mg PO TID tab 03/01/18 ondansetron HCl 4 mg tablet 4 mg PO Q8H PRN tab 03/01/18 oxybutynin chloride ER 10 mg tablet,extended release 24 hr 10 mg PO DAILY 03/01/18 Aspirin [Aspirin, Baby] 81 mg PO DAILY@0800 #30 tab.chew 03/03/18 Cefdinir 300 mg PO BID #10 cap 03/03/18 Doxycycline 100 mg PO BID #10 cap 03/03/18 Metoprolol Tartrate [Lopressor (beta katty)] 12.5 mg PO BID #60 tab 03/03/18 The following prescriptions were given: Aspirin [Aspirin, Baby] 81 mg PO DAILY@0800 #30 tab.chew Cefdinir 300 mg PO BID #10 cap Doxycycline 100 mg PO BID #10 cap Metoprolol Tartrate [Lopressor (beta katty)] 12.5 mg PO BID #60 tab Primary Care Physician: Tracy Jones DO [Primary Care Provider] - Please follow up with your Primary Care Physician in: 1 Week Please Follow Up With: Markus Cueto MD When: 1-2 Weeks Proposed Discharge Date: 03/03/18 03/03/18 1022 <Electronically signed by Brandi PATTERSON> Date Brandi PATTERSON CC: Tracy Jones DO; Charly Ross MD BEDSIDE GLUCOSE Collected: 03/03/2018 Status: F Source: GISSEL 6:57 AM [facility] REPOSITORY TYPE CODE TESTS RESULT OUT OF RANGE REFERENCE UNITS LAB L501.080 70-110 mg/dL Normal BEDSIDE GLU 105 Result Comment: MANAGEMENT OF PATIENT CARE PER NURSING PROTOCOL Performed By: #### L501.080 #### [facility] Point of Care [address] [place], [place] [id number] CBC-COMPLETE BLOOD CNT Collected: 03/03/2018 Status: F Source: GISSEL NO DIFF 5:40 AM [facility] REPOSITORY TYPE CODE TESTS RESULT OUT OF RANGE REFERENCE UNITS LAB L100.1000 4.4-11.0 K/mm3 High WBC 12.1 LAB L100.1200 4.2-5.4 M/mm3 Low RBC 2.87 LAB L100.1300 12.0-15.0 g/dl Low HGB 9.6 LAB L100.1400 37-47 % Low HCT 28.7 LAB L100.1500 81-99 fL High MCV 100.0 LAB L100.1600 27.0-32.0 pg High MCH 33.4 LAB L100.1700 32-36 g/gl Normal MCHC 33.4 LAB L100.1810 11.6-14.6 % Normal RDW CV 13.2 LAB L100.1820 35.1-43.9 fl High RDW SD 48.2 LAB L100.1900 150-450 K/mm3 Normal PLT 278 LAB L100.2000 6.2-12.0 fl Normal MPV 8.8 Performed By: #### L100.0500 #### [facility] [address] [facility] [place], [place], [id number] BASIC METABOLIC Collected: 03/03/2018 Status: F Source: GISSEL PROFILE (BMP) 5:40 AM [facility] REPOSITORY TYPE CODE TESTS RESULT OUT OF RANGE REFERENCE UNITS LAB L501.0100 74-106 mg/dL Normal GLU 80 Result Comment: Please note revised GLUCOSE reference range effective 2017. LAB L501.1000 7-18 mg/dL Normal BUN 14 LAB L501.1100 0.55-1.02 mg/dL Normal CREAT,SERUM 0.99 Result Comment: The validity of the calculated GFR AND GFRAA in patients over 70 years has not been determined. Clinical correlation is essential. LAB L501.1110 >60 mL/min Low EST GFR 57 Result Comment: Non- GFR Calc LAB L501.1115 >60 mL/min Normal EST GFR - AA 69 Result Comment: GFR Calc LAB L501.1255 ml/min Normal Estimated CRCL 35.25 LAB L501.1300 10-20 RATIO Normal BUN/CRE 14.1 LAB L501.2200 8.5-10 mg/dL Low .1 CA 7.7 LAB L501.5300 136-14 mmol/L Normal 5 NA 142 LAB L501.5600 3.5-5. mmol/L Normal 1 K 4.0 LAB L501.5900 98-107 mmol/L High CL 112 LAB L501.6100 21.0-3 mmol/L Low 2.0 CO2 19.0 LAB L501.6200 5-15 Normal GAP 11 Performed By: #### L500.2500 #### [facility] [address] [place], [place], [address] BEDSIDE GLUCOSE Collected: 03/02/2018 Status: F Source: GISSEL 9:04 PM [facility] REPOSITORY TYPE CODE TESTS RESULT OUT OF REFERENCE UNITS RANGE LAB L501.080 70-110 mg/dL High BEDSIDE GLU 249 Result Comment: MANAGEMENT OF PATIENT CARE PER NURSING PROTOCOL Performed By: #### L501.080 #### [facility] Point of Care [address] [place], [place] [address] BEDSIDE GLUCOSE Collected: 03/02/2018 Status: F Source: GISSEL 4:07 PM [facility] REPOSITORY TYPE CODE TESTS RESULT OUT OF REFERENCE UNITS RANGE LAB L501.080 70-110 mg/dL Low BEDSIDE GLU 64 Result Comment: MANAGEMENT OF PATIENT CARE PER NURSING PROTOCOL Performed By: #### L501.080 #### [facility] Point of Care [address] [place] [address] ECHOCARDIOGRAM COMPLETE Observed: 03/02/2018 Status: F Source: FIREBAUGH 2:00 PM [facility] REPOSITORY [facility] Cardiovascular Services [address] [place] [address] Echo Complete 03/02/18 0907 MR#: [id number] Acct: [id number] Name: JIMENEZ WYNN Rep #: [id number] : 1935 82 From: Charly Ross MD Attending Dr: Yefri Bartholomew DO Status: ADM IN Ordering Dr: Mohsen Goncalves MD Date: 03/01/18 Location: [facility] Sex: F C Admitted: 03/01/18 Reason For Study: ARRHYTHMIA Procedure This was a 2D Doppler, Color Flow transthoracic echocardiogram. The exam was of adequate technical quality. Exam performed portable in patient room. Left Ventricle Normal LV size. Left ventricular systolic function is normal. The estimated ejection fraction is 65 %. No regional wall motion abnormalities noted. Right Ventricle Normal RV size. Normal systolic function. Atria The left atrium is mildly enlarged. Normal right atrium. No doppler evidence for ASD. Mitral Valve There is mild mitral annular calcification. Extension of the mitral annular calcification onto the posterior mitral valve leaflet. Mild (1+) eccentric mitral valve insufficiency. Tricuspid Valve Normal tricuspid valve. Mild tricuspid valve insufficiency. Right ventricular systolic pressure estimated to be 37 mmHg. Aortic Valve Trisinus/trileaflet aortic valve. Mild focal aortic valve calcification. Pulmonic Valve The pulmonic valve is not well visualized. Trivial pulmonic valve insufficiency. Great Vessels Normal sized aortic root. Pericardium/Pleural No pericardial effusion. MMode/2D Measurements AND Calculations LVIDd: 3.6 cm IVSd: 1.0 cm Ao root diam: 2.9 cm LVIDs: 2.3 cm LVPWd: 1.0 cm RVDd: 3.5 cm FS: 37.6 % LAV(MOD-bp): 59.4 ml LA A4 area: 19.4 cm2 RA A4 area: 15.0 cm2 LAV(MOD-bp) Indexed: 33.9 ml/m2 LAV(MOD-sp2): 61.1 ml LAV(MOD-sp4): 56.0 ml Doppler Measurements AND Calculations MV E max chaka: 82.5 cm/sec Lat Peak E' Chaka: 10.9 cm/sec Med Peak E' Chaka: 8.8 cm/sec MV A max chaka: 118.7 cm/sec E/E' lat: 7.5 E/E' med: 9.4 MV E/A: 0.69 Ao V2 max: 140.2 cm/sec LV V1 max: 113.4 cm/sec TR max chaka: 290.8 cm/sec Ao max P.9 mmHg LV V1 max P.1 mmHg TR max P.9 mmHg Interpretation Summary Left ventricular systolic function is normal. The estimated ejection fraction is 65 %. The left atrium is mildly enlarged. There is mild mitral annular calcification. Extension of the mitral annular calcification onto the posterior mitral valve leaflet. Mild (1+) eccentric mitral valve insufficiency. Mild tricuspid valve insufficiency. Mild focal aortic valve calcification. Trivial pulmonic valve insufficiency. Right ventricular systolic pressure estimated to be 37 mmHg. Transmitral diastolic flow velocities suggest diastolic dysfunction. Ordering Physician: Moshen Goncalves Referring Physician: TRACY JONES Performed By: Екатерина Boss, ROBERT, RVT 03/02/18 1400 Date Charly Ross MD CC: Yefri Bartholomew DO; Mohsen Goncalves; Tracy Jones DO Date Dictated: 03/02/1807 Date Transcribed: 03/02/18 1400 Sales Manager: Signed BEDSIDE GLUCOSE Collected: 03/02/2018 Status: F Source: FIREBAUGH 1:16 PM [facility] REPOSITORY TYPE CODE TESTS RESULT OUT OF REFERENCE UNITS RANGE LAB L501.080 70-110 mg/dL High BEDSIDE GLU 370 Result Comment: MANAGEMENT OF PATIENT CARE PER NURSING PROTOCOL Performed By: #### L501.080 #### [facility] Point of Care [address] [place] [address]. [place], [place] [address] Observed: 03/02/2018 Status: F Source: FIREBAUGH LEGIONELLA ANTIGEN 12:45 PM [facility] URINE REPOSITORY Legionella, UR Legionella Antigen result interpretation: Negative Presumptive negative for Legionella pneumophila serogroup 1 antigen in urine, suggesting no recent or current infection. Legionella Ag, Urine Negative (See interpretation below) Performed By: #### M300.4500 #### [facility] [address] [place] [address]. [place], [address] STREP Observed: 03/02/2018 Status: F Source: FIREBAUGH PNEUMONIAE ANTIG(UR,CSF) 12:45 PM [facility] REPOSITORY S pneumo Ag URINE INTERPRETATION Negative Urine Presumptive negative for pneumococcal pneumonia, suggesting no current or recent pneumococcal infection. Infection due to S pneumoniae cannot be ruled out since the antigen present in the sample may be below the detection limit of the test. Strep pneumo Test Negative URINE (See interpretation below) Performed By: #### M300.4600 #### [facility] [address] [place] [address]. [place], [address] BEDSIDE GLUCOSE Collected: 03/02/2018 Status: F Source: FIREBAUGH 10:54 AM [facility] REPOSITORY TYPE CODE TESTS RESULT OUT OF REFERENCE UNITS RANGE LAB L501.080 70-110 mg/dL High alert BEDSIDE GLU 465 Result Comment: Repeat Test MANAGEMENT OF PATIENT CARE PER NURSING PROTOCOL Performed By: #### L501.080 #### [facility] Point of Care [address] [place] [address] CONSULTATION Observed: 03/02/2018 Status: F Source: FIREBAUGH 10:23 AM [facility] REPOSITORY [facility] Medical Records Department [address] [place] [address] Consultation 03/02/18 0641 MR#: [id number] Acct: [id number] Name: JIMENEZ WYNN Rep #: [id number] : 1935 82 From: Markus Cueto MD PCP: Tracy Jones DO Status: ADM IN Location: [address] Reason for Consult Date of Consultation: 03/02/18 Reason for Consultation: Fast heart rate History of Present Illness: The patient is a 82 year old F with past medical history as mentioned above was referred to the emergency department from Dr. Ross's office for evaluation for SVT. The patient came in today for follow-up with Dr. Ross for history of nonischemic cardiomyopathy and she was found to be an supraventricular tachycardia and she was sent to the emergency department for evaluation and treatment. According to the patient's daughter, patient has been having symptoms of exertional shortness of breath and weakness over the last couple of days. The patient herself denies any significant symptoms. She did mention that she has been having dry cough over the last few days. She denied chest pain, palpitation, dizziness, lightheadedness, syncope or presyncope. Denies fever or chills. She has a history of Takotsubo cardiomyopathy and she had an echocardiogram that was done on August, and revealed ejection fraction of 45%. She has a history of type 2 diabetes mellitus which seemed to be uncontrolled, most recent hemoglobin A1c was in December, and it was 9.1. She has a history of stage III chronic kidney disease with baseline creatinine has been fluctuating from 0.9 up to 1.7 and admission creatinine is 2.48. In the emergency department, patient was found to be in SVT with heart rate of around 164. She was asymptomatic. She received 2 dose of IV adenosine and she converted back to sinus rhythm. She remained asymptomatic. Her routine blood work is remarkable for leukocytosis, potassium 6.4, creatinine of 2.48. Initial EKG revealed SVT and after she received IV adenosine, EKG revealed sinus rhythm without acute ischemic changes. Her chest x-ray showed new right lower base infiltrate. She is being admitted for SVT, right lower lobe community-acquired pneumonia, acute kidney injury top of stage III chronic kidney disease and hyperkalemia. Cardiology was called for further evaluation and management. She has had no further symptoms of fast heartbeat since she was admitted to the hospital. [] Past Medical History Allergies/Adverse Reactions: Allergies Sulfa (Sulfonamide Antibiotics) Allergy (Unknown, Verified 03/01/18 14:05) Unknown adhesive tape Allergy (Verified 03/01/18 14:05) Other codeine Allergy (Verified 03/01/18 14:05) HEART ATTACK Latex, Natural Rubber Allergy (Verified 03/01/18 14:05) Rash levofloxacin [From Levaquin] Allergy (Verified 03/01/18 14:05) Anaphylaxis Penicillins Allergy (Verified 03/01/18 14:05) Rash acetaminophen [From Vicodin] Adverse Reaction (Verified 03/01/18 14:05) Chest tightness hydrocodone bitartrate [From Vicodin] Adverse Reaction (Verified 03/01/18 14:05) Chest tightness Home Medications: Ambulatory Orders Medication Instructions Recorded Levothyroxine [Synthroid] 25 mcg PO DAILY 05/23/16 Meloxicam [Mobic] 15 mg PO QODAY 05/23/16 Multivit with Calcium,Iron,Min 1 tab PO DAILY 05/23/16 Past Medical History (Chronic Problems): Chronic Problems (Last Reviewed 03/01/18 @ 13:10 by Victoria Fu) Takotsubo cardiomyopathy (Chronic) Nonrheumatic tricuspid (valve) insufficiency (Chronic) Atherosclerotic heart disease of [place] coronary artery without angina pectoris (Chronic) Mild Hypothyroidism (Chronic) COPD (chronic obstructive pulmonary disease) (Chronic) Hyperlipidemia (Chronic) Type 2 diabetes mellitus (Chronic) Surgical History: hysterectomy, total hip arthroplasty, - - Fractured femur Psychiatric History: 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 Denies: Chest Discomfort, Orthopnea, PND, Peripheral Edema, Palpitations, Lightheadedness, Dizziness, Near Syncope, Syncope Respiratory: Denies: Cough, Sputum Production, Hemoptysis Gastrointestinal: Denies: Hematemesis, Hematochezia, Melena Genitourinary: Denies: Dysuria, Hematuria Skin: Denies: Rash Subjectve: Pleasant lady in no apparent distress Objective: Vital Signs Temp Pulse Resp BP Pulse Ox 98.1 F 78 18 100/52 L 94 03/02/18 04:30 03/02/18 04:30 03/02/18 04:30 03/02/18 04:30 03/02/18 04:30 Oxygen Delivery Method Room Air Weight: 163 lb 2.273 oz Body Mass Index (BMI) 29.8 Intake and Output for Last 24 Hours Intake Total 749 / 749 589 / 589 Balance 749 / 749 589 / 589 General: Awake, Alert, Oriented x 3 HEENT: PERRL, EOMI, Sclera Non Icteric Neck: Supple, Good ROM, No Lymph Node Enlargement Lungs: Clear to auscultation Cardiovascular: Regular Rhythm, Normal S1, Normal S2, No Murmurs, No Rubs, No Gallops Vascular: No Carotid Bruits, Normal Femoral Pulses, Normal Radial Pulses, Normal Dorsalis Pedal Pulse, Normal Posterior Tibial Pulses Abdomen: Bowel Sounds Present, Soft, Non Tender, No HSM, No Organomegaly Extremities: No Cyanosis, No Clubbing, No edema Neurological: No Focal Motor or Sensory Deficit 03/01/18 18:55: Potassium 5.1 03/01/18 18:55: Troponin I 0.15 H 03/01/18 22:31: Troponin I 0.19 H 03/02/18 04:45: WBC Cancelled, Corrected WBC Cancelled, RBC Cancelled, Hgb Cancelled, Hct Cancelled, MCV Cancelled, MCH Cancelled, MCHC Cancelled, RDW Cancelled, RDW Differential Cancelled, Plt Count Cancelled, MPV Cancelled, Immature Gran % (Auto) Cancelled, Neut % (Auto) Cancelled, Lymph % (Auto) Cancelled, Mcintosh % (Auto) Cancelled, Eos % (Auto) Cancelled, Baso % (Auto) Cancelled, Absolute Neuts (auto) Cancelled, Total Counted Cancelled, Neutrophils % (Manual) Cancelled, Band Neutrophils % Cancelled, Lymphocytes % (Manual) Cancelled, Monocytes % (Manual) Cancelled, Eosinophils % (Manual) Cancelled, Basophils % (Manual) Cancelled, Metamyelocytes % Cancelled, Myelocytes % Cancelled, Promyelocytes % Cancelled, Blast Cells % Cancelled, Plasma Cell % (Manual) Cancelled, Other Cells % Cancelled 03/02/18 04:45: Sodium 142, Potassium 4.6, Chloride 112 H, Carbon Dioxide 22.0, Anion Gap 8, BUN 27 H, Creatinine 1.40 H, Est GFR (MDRD) Af Amer 46 L, Est GFR (MDRD) Non-Af 38 L, BUN/Creatinine Ratio 19.3, Glucose 223 H, Calcium 8.5, Troponin I 0.15 H Rhythm: EKG: Initial EKG from March 01 1402 demonstrates supraventricular tachycardia with a rate of 164 bpm, follow-up EKG after conversion demonstrates normal sinus rhythm with a rate of 86 bpm left axis deviation Assessment/Plan 1. Supraventricular tachycardia. The etiology of the above is not entirely clear. She has had no previous obstructive coronary disease but she did have significant electrolyte abnormal 80s including renal dysfunction and hyperkalemia. My recommendation at this time would be to institute low-dose beta-katty and discontinue the lisinopril and observe her. Would recommend an echocardiogram to assess her left ventricular function and further recommendations will depend on the results of the above. 2. History of takutsobo cardiomyopathy She has had a previous history of apical ballooning syndrome but has been asymptomatic with no heart failure symptoms her last ejection fraction was estimated to be 45% in 2016 and this would be reevaluated. 3. Hyperlipidemia She does have a history of hyperlipidemia and will continue with primary risk factor modification. 4. Hyperkalemia Suggest discontinuation of the lisinopril. Thank you for allowing me to participate in the care of your patient. Please don't hesitate to call if any issues arise 03/02/18 1023 <Electronically signed by Markus Cueto MD> Date Markus Cueto MD Cosigner Signature (if applicable): Date CC: Tracy Jones DO; Charly Ross MD Signed BEDSIDE GLUCOSE Collected: 03/02/2018 Status: F Source: GISSEL 6:55 AM [facility] REPOSITORY TYPE CODE TESTS RESULT OUT OF REFERENCE UNITS RANGE LAB L501.080 70-110 mg/dL High BEDSIDE GLU 224 Result Comment: MANAGEMENT OF PATIENT CARE PER NURSING PROTOCOL Performed By: #### L501.080 #### [facility] Point of Care [facility] [place] [address] CBC W/DIFF, AUTOMATED Collected: 03/02/2018 Status: F Source: FIREBAUGH 5:50 AM [facility] REPOSITORY Order Comment: REDRAW. PREVIOUS SPECIMEN REJECTED DUE TO QNS. 03/02/18 0541 Dorie Reynolds. TYPE CODE TESTS RESULT OUT OF RANGE REFERENCE UNITS LAB L100.1000 4.4-11.0 K/mm3 Normal WBC 9.5 LAB L100.1200 4.2-5.4 M/mm3 Low RBC 2.80 LAB L100.1300 12.0-15.0 g/dl Low HGB 9.5 LAB L100.1400 37-47 % Low HCT 28.3 LAB L100.1500 81-99 fL High MCV 101.1 LAB L100.1600 27.0-32.0 pg High MCH 33.9 LAB L100.1700 32-36 g/gl Normal MCHC 33.6 LAB L100.1810 11.6-14.6 % Normal RDW CV 13.4 LAB L100.1820 35.1-43.9 fl High RDW SD 49.9 LAB L100.1900 150-450 K/mm3 Normal PLT 245 LAB L100.2000 6.2-12.0 fl Normal MPV 9.5 LAB L100.2100 47-70 % High NEUT% 71.2 LAB L100.2200 19-41 % Low LY% 15.5 LAB L100.2300 0-10 % Normal MONO% 7.5 LAB L100.2400 0-5 % Normal EO% 4.6 LAB L100.2500 0-1 % Normal BASO% 0.4 LAB L100.2550 0.0-0.9 % Normal IM GRAN % 0.800 Result Comment: IG% - Immature Granulocytes (promyelocytes, myelocytes and metamyelocytes) > 1% indicates that a LEFT SHIFT is Present. LAB L100.2620 2.0-7.7 X10 3/uL Normal Absolute Neut 6.8 LAB L100.2720 0.83-4.51 X10 3/ul Normal Absolute Lymph 1.47 LAB L100.4500 Normal SMEAR COMMENT SCANNED Result Comment: RARE PLATELET CLUMPS NOTED LAB L100.7300 Normal ANISO 2+ LAB L100.7600 Normal HYPOCHROMASIA 1+ LAB L100.8000 Normal ACANTHOCYTE RARE LAB L100.8100 Normal CRENATED RBC RARE LAB L100.8200 Normal OVALOCYTE RARE Performed By: #### L100.0100 #### [facility] [address] [place], [place], [id number] TROPONIN-I Collected: 03/02/2018 Status: F Source: FIREBAUGH 4:45 AM [facility] REPOSITORY Order Comment: 'TROP' Serial specimen #1, #2, #3, or #4: 4 TYPE CODE TESTS RESULT OUT OF RANGE REFERENCE UNITS LAB L501.4010 <0.06 ng/mL High 0.15 TROPONIN-I Result Comment: TROPONIN-I EXPECTED VALUES <0.05 NEGATIVE 0.06 - 0.59 AT RISK OF MD > OR = 0.60 SUGGEST MD Performed By: #### L501.4010, L500.2500 #### [facility] [address] [place], [place], [id number] BASIC METABOLIC Collected: 03/02/2018 Status: F Source: FIREBAUGH PROFILE (BMP) 4:45 AM [facility] REPOSITORY Order Comment: 'TROP' Serial specimen #1, #2, #3, or #4: 4 TYPE CODE TESTS RESULT OUT OF RANGE REFERENCE UNITS LAB L501.0100 74-106 mg/dL High GLU 223 Result Comment: Glucose result greater than or equal to 200 mg/dL suggests DIABETES MELLITUS per A.D.A. criteria. Please note revised GLUCOSE reference range effective 2017. LAB L501.1000 7-18 mg/dL High BUN 27 LAB L501.1100 0.55-1.02 mg/dL High CREAT,SERUM 1.40 Result Comment: The validity of the calculated GFR AND GFRAA in patients over 70 years has not been determined. Clinical correlation is essential. LAB L501.1110 >60 mL/min Low EST GFR 38 Result Comment: Non- GFR Calc LAB L501.1115 >60 mL/min Low EST GFR - AA 46 Result Comment: GFR Calc LAB L501.1255 ml/min Normal Estimated CRCL 24.93 LAB L501.1300 10-20 RATIO Normal BUN/CRE 19.3 LAB L501.2200 8.5-10 mg/dL Normal .1 CA 8.5 LAB L501.5300 136-14 mmol/L Normal 5 NA 142 LAB L501.5600 3.5-5. mmol/L Normal 1 K 4.6 LAB L501.5900 98-107 mmol/L High CL 112 LAB L501.6100 21.0-3 mmol/L Normal 2.0 CO2 22.0 LAB L501.6200 5-15 Normal GAP 8 Performed By: #### L501.4010, L500.2500 #### [facility] [address] [place], [place], [address] MAGNESIUM Collected: 03/02/2018 Status: F Source: GISSEL 4:45 AM [facility] REPOSITORY TYPE CODE TESTS RESULT OUT OF RANGE REFERENCE UNITS LAB L501.5200 1.6-2.6 mg/dL Low MG 1.5 Performed By: #### L501.5200 #### [facility] [address] [place], [address] BEDSIDE GLUCOSE Collected: 03/01/2018 Status: F Source: GISSEL 10:31 PM [facility] REPOSITORY TYPE CODE TESTS RESULT OUT OF REFERENCE UNITS RANGE LAB L501.080 70-110 mg/dL High BEDSIDE GLU 339 Result Comment: MANAGEMENT OF PATIENT CARE PER NURSING PROTOCOL Performed By: #### L501.080 #### [facility] Point of Care [address] [place] [address] TROPONIN-I Collected: 03/01/2018 Status: F Source: FIREBAUGH 6:55 PM [facility] REPOSITORY Order Comment: 'TROP' Serial specimen #1, #2, #3, or #4: 2 TYPE CODE TESTS RESULT OUT OF RANGE REFERENCE UNITS LAB L501.4010 <0.06 ng/mL High 0.15 TROPONIN-I Result Comment: TROPONIN-I EXPECTED VALUES <0.05 NEGATIVE 0.06 - 0.59 AT RISK OF MD > OR = 0.60 SUGGEST MD Performed By: #### L501.4010 #### [facility] [address] [place], [address] POTASSIUM Collected: 03/01/2018 Status: F Source: FIREBAUGH 6:55 PM [facility] REPOSITORY TYPE CODE TESTS RESULT OUT OF RANGE REFERENCE UNITS LAB L501.5600 3.5-5.1 mmol/L Normal K 5.1 Performed By: #### L501.5600 #### [facility] [address] [place], [address] THYROID STIM HORMONE Collected: 03/01/2018 Status: F Source: FIREBAUGH (TSH) 6:55 PM [facility] REPOSITORY TYPE CODE TESTS RESULT OUT OF RANGE REFERENCE UNITS LAB L501.9520 0.358-3.74 uIU/mL Normal TSH 2.14 Performed By: #### L501.9520 #### [facility] [address] [place], [address] HISTORY AND PHYSICAL Observed: 03/01/2018 Status: F Source: GISSEL EXAM 5:14 PM [facility] REPOSITORY [facility] Medical Records Department [facility] [place] [address] History and Physical 03/01/18 1557 MR#: [id number] Acct: [id number] Name: JIMENEZ WYNN Rep #: [id number] : 1935 82 From: Mohsen Goncalves MD PCP: Tracy Jones DO Status: ADM IN Y Location: [place] [id number] Problem List (1) Takotsubo cardiomyopathy Status: Chronic (2) Nonrheumatic tricuspid (valve) insufficiency Status: Chronic (3) Atherosclerotic heart disease of [place] coronary artery without angina pectoris Status: Chronic Qualifiers: Comment: Mild (4) Hypothyroidism Status: Chronic Qualifiers: (5) COPD (chronic obstructive pulmonary disease) Status: Chronic Qualifiers: (6) Hyperlipidemia Status: Chronic Qualifiers: (7) Type 2 diabetes mellitus Status: Chronic History of Present Illness Date of Admission: 03/01/18 Chief Complaint: SVT, shortness of breath. The patient is a 82 year old F with past medical history as mentioned above was referred to the emergency department from Dr. Ross's office for evaluation for SVT. The patient came in today for follow-up with Dr. Ross for history of nonischemic cardiomyopathy and she was found to be an supraventricular tachycardia and she was sent to the emergency department for evaluation and treatment. According to the patient's daughter, patient has been having symptoms of exertional shortness of breath and weakness over the last couple of days. The patient herself denies any significant symptoms. She did mention that she has been having dry cough over the last few days. She denied chest pain, palpitation, dizziness, lightheadedness, syncope or presyncope. Denies fever or chills. She has a history of Takotsubo cardiomyopathy and she had an echocardiogram that was done on August, and revealed ejection fraction of 45%. She has a history of type 2 diabetes mellitus which seemed to be uncontrolled, most recent hemoglobin A1c was in December, and it was 9.1. She has a history of stage III chronic kidney disease with baseline creatinine has been fluctuating from 0.9 up to 1.7 and admission creatinine is 2.48. In the emergency department, patient was found to be in SVT with heart rate of around 170. She was asymptomatic. She received 2 dose of IV adenosine and she converted back to sinus rhythm. She remained asymptomatic. Her routine blood work is remarkable for leukocytosis, potassium 6.4, creatinine of 2.48. Initial EKG revealed SVT and after she received IV adenosine, EKG revealed sinus rhythm without acute ischemic changes. Her chest x-ray showed new right lower base infiltrate. She is being admitted for SVT, right lower lobe community-acquired pneumonia, acute kidney injury top of stage III chronic kidney disease and hyperkalemia. Past Medical History Past Medical History (Chronic Problems): Chronic Problems (Last Reviewed 03/01/18 @ 13:10 by Victoria Fu) Takotsubo cardiomyopathy (Chronic) Nonrheumatic tricuspid (valve) insufficiency (Chronic) Atherosclerotic heart disease of [place] coronary artery without angina pectoris (Chronic) Mild Hypothyroidism (Chronic) COPD (chronic obstructive pulmonary disease) (Chronic) Hyperlipidemia (Chronic) Type 2 diabetes mellitus (Chronic) Allergies Sulfa (Sulfonamide Antibiotics) Allergy (Unknown, Verified 03/01/18 14:05) Unknown adhesive tape Allergy (Verified 03/01/18 14:05) Other codeine Allergy (Verified 03/01/18 14:05) HEART ATTACK Latex, Natural Rubber Allergy (Verified 03/01/18 14:05) Rash levofloxacin [From Levaquin] Allergy (Verified 03/01/18 14:05) Anaphylaxis Penicillins Allergy (Verified 03/01/18 14:05) Rash acetaminophen [From Vicodin] Adverse Reaction (Verified 03/01/18 14:05) Chest tightness hydrocodone bitartrate [From Vicodin] Adverse Reaction (Verified 03/01/18 14:05) Chest tightness Home Medications: Ambulatory Orders Medication Instructions Recorded Levothyroxine [Synthroid] 25 mcg PO DAILY 05/23/16 Meloxicam [Mobic] 15 mg PO QODAY 05/23/16 Surgical History: hysterectomy, total hip arthroplasty, - - Fractured femur Psychiatric History: 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 Denies: Chills, Fever Eyes: Denies: Blurred vision, Double vision, Drainage, Redness HEENT: Denies: Difficulty Hearing, Ear Pain, Eye Pain, Nasal Congestion, Sore Throat Cardiovascular: Denies: Chest Pain, Chest Pressure, Chest Tightness, Heaviness, Light Headedness, Palpitations, Paroxysmal Noc. Dyspnea, Syncope Respiratory: Reports: Cough, Shortness of breath upon exertion. Denies: Pleuritic Pain, Sputum production, Wheezing Gastrointestinal: Denies: Abdominal Pain, Constipation, Diarrhea, Nausea, Vomiting Genitourinary: Denies: Dysuria, Frequency, Hematuria Musculoskeletal: Denies: Arm Pain, Back Pain, Foot Pain Skin: Denies: Dryness, Rash Neurological: Denies: Balance problems, Double vision, Change in Speech, Slurred speech, Confusion, Focal weakness, Headaches, Incoordination Psychiatric: Denies: Anxiety, Depression Endocrine: Denies: Change in Body Habitus, Polydipsia VTE Information - Inpt Only VTE Present on Admission: No VTE Mechan Device Prophylaxis: None VTE Pharm Prophylaxis ordered?: Yes - Physical Exam General: Alert, Oriented x3, Cooperative, No apparent distress HEENT: Atraumatic, PERRLA, EOMI Oral: Moist Mucosa, No Gingival or Mucosal Lesions/ Ulcerations Neck: Supple, No JVD, Negative Carotid Bruits, Trachea Midline, Thyroid Normal Size and Texture Lungs: Clear to auscultation, No rhonchi, No wheeze, No rales, Diminished Cardiovascular: Regular rate, Regular Rhythm, Normal S1, Normal S2, PMI Normal Abdomen: Bowel Sounds Present, Soft, Non Tender, Non-Distended, No Hepato-splenomegaly Extremities: No clubbing, No cyanosis, No edema Skin: No rashes, No breakdown Lymphatic: No Cervical, Supraclavicular, or Inguinal Adenopathy Neurological: Cranial nerves II-XII grossly intact, Motor Exam 5/5 strength throughout Psych/Mental Status: Normal Affect, Appropriate, Alert and oriented to time, place, person, mood and affect Vital Signs Temp Pulse Resp BP Pulse Ox 96.8 F L 77 19 H 109/59 L 98 03/01/18 13:56 03/01/18 15:48 03/01/18 15:48 03/01/18 15:48 03/01/18 15:48 Oxygen Flow Rate (L/min) 2 Oxygen Delivery Method Nasal Cannula Weight: 150 lb Body Mass Index (BMI) 27.4 Laboratory Tests Past 24 Hrs Assessment/Plan This is 82 years old female patient was sent to the emergency department by Dr. Ross for SVT as well as symptoms of mild shortness of breath and weakness and she was found to have right lower lobe community acquired pneumonia, acute kidney injury on top of stage III chronic kidney disease, hyperkalemia and SVT that returned back to sinus rhythm after IV adenosine. #1 SVT: Status post chemical cardioversion, patient received 2 doses of IV adenosine she converted back to sinus rhythm. EKG after the adenosine reviewed, revealed sinus rhythm without acute ischemic changes. Plan: Admit to PCU, cardiac monitoring, serial cardiac enzymes, 2D echocardiogram, cardiology consult, check serum magnesium and TSH, PT OT evaluation and treatment. #2 right lower lobe community-acquired pneumonia: Chest x- ray reviewed. She does have significant leukocytosis. She is afebrile. Plan: Blood culture, sputum culture, urine culture, urinalysis, start IV Rocephin and Zithromax, albuterol as needed, chest physical therapy. #3 acute kidney injury double stage III chronic kidney disease: This is secondary to poor oral intake in addition to medication side effects including lisinopril, meloxicam and metformin. At baseline creatinine has been fluctuating anywhere from 0.9-1.7. Admission creatinine is 2.48. Plan: Gentle IV fluids for hydration to avoid volume overload, hold nephrotoxic drugs, input output chart, repeat BMP tomorrow morning. #4 hyperkalemia: Secondary to #3. In addition to that, patient has been on lisinopril. EKG revealed sinus rhythm without changes related to hyperkalemia. She received 1 dose of Kayexalate, sodium bicarb, IV insulin and calcium chloride in the ER. Plan: IV fluids, repeat potassium at 8 PM tonight, repeat BMP tomorrow morning, hold lisinopril. #5 Takotsubo cardiomyopathy: With low ejection fraction, most recent 2D echo cardiogram was from August, with ejection fraction of 45%. At this time, no evidence of acute CHF. Plan: 2D echocardiogram, gentle IV fluids for hydration to avoid volume overload, hold lisinopril. #6 type 2 diabetes mellitus: ADA diet, Accu-Cheks, insulin sliding scale, continue home doses of Levemir insulin, hold metformin as above. #7 hypothyroidism: Continue levothyroxine, check TSH. #8 COPD: Clinically stable, pulse ox is maintained on room air. Plan for albuterol as needed. #9 hyperlipidemia: Continue statins. #10 DVT prophylaxis: Subcu heparin. This note was generated with Dragon dictation software. It may contain incorrect words, spelling, and punctuation that were not noted in checking the note before signing. Code Visit Inpatient E AND M: 94249 Init Hosp L3 03/01/18 1714 <Electronically signed by Mohsen Goncalves MD> Date Mohsen Goncalves MD Cosigner Signature: Date (if applicable) CC: Mohsen Goncalves; Tracy Jones DO Signed BEDSIDE GLUCOSE Collected: 03/01/2018 Status: F Source: GISSEL 4:10 PM [facility] HOSPITAL REPOSITORY TYPE CODE TESTS RESULT OUT OF REFERENCE UNITS RANGE LAB L501.080 70-110 mg/dL High BEDSIDE GLU 264 Result Comment: MANAGEMENT OF PATIENT CARE PER NURSING PROTOCOL Performed By: #### L501.080 #### [facility] Laboratory Point of Care [address] [place], [place] [address] Observed: 03/01/2018 Status: F Source: GISSEL CULTURE, BLOOD (WB) 3:44 PM [facility] REPOSITORY BC No growth in 5 days. Performed By: #### M200.1000 #### [facility] Laboratory [address] [place], [address] Observed: 03/01/2018 Status: F Source: GISSEL CULTURE, BLOOD (WB) 3:39 PM [facility] HOSPITAL REPOSITORY BC GRAM STAIN: GRAM POSITIVE COCCI CALLED TO LEANN HARDY 03/02/18 1722 BY CPOPIEL Possible skin contamination, further Identification and sensitivity will be performed only by physician's request. ORGANISM 1: Coag Negative Staph Amount Growth Growth Performed By: #### M200.1000, M100.636 #### [facility] Laboratory [address] [place], [address] Observed: 03/01/2018 Status: F Source: [facility] GPC ID 3:39 PM [facility] REPOSITORY GPC ID Staphylococcus sp. Coagulase - Negative Staphylococcus sp. Enterococcus sp. Not Detected Streptococcus spp. Not Detected Listeria spp Not Detected Russell/vanB Not Detected mecA Not Detected NAAT METHOD Testing was performed using nucleic acid amplification ORGANISM 1: Coag Negative Staph Performed By: #### M200.1000, M100.636 #### [facility] Laboratory [address] [place], [address] EMERGENCY DEPARTMENT Observed: 03/01/2018 Status: F Source: FIREBAUGH SUMMARY 3:32 PM [facility] REPOSITORY [facility] Medical Records Department [address] [place] [address] Emergency Department Summary 03/01/18 1527 MR#: [id number] Acct: [id number] Name: JIMENEZ WYNN Rep #: [id number] : 1935 82 From: Jeremi Rosales DO PCP: Trcay Jones DO Status: REG ER - ER Visit Summary Date of Service: 03/01/18 Chief Complaint: [Dyspnea and SVT] History of Present Illness: The patient is a 82 F [presents to the emergency department from Dr. Charly Ross's office for evaluation of SVT. Patient was being seen for a routine visit when she was noted to be tachycardic and EKG performed in the office showed SVT. [facility] a [facility] and presents with daughter who gives some of the history. Patient has been short of breath over last several days with minimal exertion. Patient's had a mild cough. She has not had a fever. Patient does not feel like her heart racing and she denies any chest pain. Patient has a history of tachycardia Tacosubo syndrome, diabetes, hypertension, high cholesterol, and COPD.] Physical Examination: [HEENT-PERRLA, EOMI. Cranial nerves II through XII grossly intact. TMs clear. Mucous membranes moist. No adenopathy. Cardiovascular-regular and tachycardic, no murmurs auscultated initially Lungs-good aeration bilaterally, faint expiratory wheezes, no accessory muscle use or retractions Abdomen-normoactive bowel sounds, soft, nontender, no rebound or rigidity, no peritoneal signs. Extremities-intact 4, normal range of motion, normal pulses, atraumatic] Test Results: [EKG obtained on arrival showed SVT with a ventricular rate of 164 bpm]. CBC with differential showed a white count of . 18.7, hemoglobin 12, hematocrit 37, platelets 427. Chemistry shows sodium 136, potassium 6.4, chloride 106, CO2 20. BUN and creatinine are both elevated from baseline. Troponin was less than 0.02. BNP was 120. Chest x-ray showed a right lower lobe pneumonia. Emergency Department Course and Treatment: [Patient had blood cultures ordered and was started on Azactam 2 g IV. Patient was given Kayexalate 30 g p.o. and given sodium bicarb, calcium chloride, and insulin.] Patient on arrival received 6 mg's of adenosine IV and her SVT resolved to a normal sinus rhythm. Treatment Plan: [Admit] Disposition: [Admit] Impression: [SVT Pneumonia Renal failure Hyperkalemia] This note was generated with Connect dictation software. It may contain incorrect words, spelling, and punctuation that were not noted in review of the chart prior to signing ED Disposition - Plan for ED Patient: Chief Complaint: Palpitations Referrals: Tracy Jones DO [Primary Care Provider] - What to do if you have Problems For any increased pain, shortness of breath, bleeding, nausea or vomiting, chest pain, or any unexpected problems, contact your Primary Care Provider. Call [facility] ([phone]) or report to the closest Emergency Room. Call 911 if necessary. 03/01/18 1532 <Electronically signed by Jeremi Rosales DO> Date Jeremi Rosales DO Cosigner Signature (If Indicated): Date CC: Tracy Jones DO CARDIOLOGY VISIT Observed: 03/01/2018 Status: F Source: GISSEL REPORT 2:09 PM [facility] REPOSITORY [facility] [address] [place] [address] OFFICE VISIT Date of Service: 03/01/18 MR#: [id number] Acct: [id number] Name: JIMENEZ WYNN Rep #: [id number] : 1935 Provider: Charly Ross MD Age/Sex: 82/F Location: [facility] Status: Signed HPI HPI Details: JIMENEZ WYNN, is a 82 F who presents to the office today for outpatient cardiovascular follow-up of her history of an underlying non- CAD related cardiomyopathy (Takotsubos syndrome). Since her last outpatient visit on 06/02/2017 she states she had been doing well until recently. Recently she noted not feeling perky . She notes she has been more tired and fatigued. She has been somewhat more short of breath and dyspneic with activity. There is been no associated chest discomfort. There has been no orthopnea or PND or worsening peripheral pitting edema. There has been no loss of consciousness. She has had laboratory work in December of this year. Based upon her laboratory results available for review her hemoglobin was 10.7 with a hematocrit of 32.5, her potassium was 5.1, her BUN was 19 with a creatinine of 1.35, and her TSH level was 1.77- within normal range. She also had lipid labs performed. Her cholesterol was 88 with an LDL of 20 and an HDL of 56 and a triglyceride level of 59. In the office today she was noted to be tachycardic. An ECG was performed. She had an underlying supraventricular tachycardia with a leftward axis and poor R-wave progression. Her ventricular rate was approximately 170 bpm. Intake Vital Signs03/01/18 Height 5 ft 4 in 03/01/18 Weight: 162 lb 03/01/18 Body Mass Index (BMI) 27.8 03/01/18 Respiratory Rate 18 03/01/18 Pulse Rate 176 03/01/18 Pulse Source Auscultation Intake Visit Reasons: 9 M FU Allergies Sulfa (Sulfonamide Antibiotics) Allergy (Unknown, Verified 03/01/18 14:05) Unknown adhesive tape Allergy (Verified 03/01/18 14:05) Other codeine Allergy (Verified 03/01/18 14:05) HEART ATTACK Latex, Natural Rubber Allergy (Verified 03/01/18 14:05) Rash levofloxacin [From Levaquin] Allergy (Verified 03/01/18 14:05) Anaphylaxis Penicillins Allergy (Verified 03/01/18 14:05) Rash acetaminophen [From Vicodin] Adverse Reaction (Verified 03/01/18 14:05) Chest tightness hydrocodone bitartrate [From Vicodin] Adverse Reaction (Verified 03/01/18 14:05) Chest tightness Medications Levothyroxine [Synthroid] 25 mcg PO DAILY 05/23/16 [History Confirmed 03/01/18] Meloxicam [Mobic] 15 mg PO QODAY 05/23/16 [History Confirmed 03/01/18] Multivit with Calcium,Iron,Min [Multiple Vitamins For Women] 1 ea PO DAILY 05/23/16 [History Confirmed 03/01/18] Trazodone HCl 50 mg PO QHS 05/23/16 [History Confirmed 03/01/18] Aspirin 325 mg PO DAILY@0800 #0 tab 08/30/16 [Rx Confirmed 03/01/18] Atorvastatin Calcium [Lipitor] 20 mg PO QHS #30 tab 09/23/16 [Rx Confirmed 03/01/18] Metformin HCl [Glucophage] 1,000 mg PO BIDCM #60 tab 09/23/16 [Rx Confirmed 03/01/18] Albuterol Aerosols [Ventolin Aerosols] 2.5 mg INHALATION Q2H PRN PRN 03/26/17 [History Confirmed 03/01/18] Insulin Detemir [Levemir FlexPen] 20 units SC DAILY 03/26/17 [History Confirmed 03/01/18] Lisinopril [Prinivil] 10 mg PO DAILY 03/26/17 [History Confirmed 03/01/18] Loperamide [Imodium] 2 mg PO PRN PRN 03/26/17 [History Confirmed 03/01/18] Ubidecarenone [Coenzyme Q-10] 200 mg PO DAILY 03/26/17 [History Confirmed 03/01/18] Vitamin E 400 unit PO DAILY 03/26/17 [History Confirmed 03/01/18] citalopram 10 mg tablet 10 mg PO QDAY 01/15/18 [History Confirmed 03/01/18] ergocalciferol (vitamin D2) 50,000 unit capsule 50,000 unit PO QMONTH 01/15/18 [History Confirmed 03/01/18] fluticasone 250 mcg-salmeterol 50 mcg/dose blistr powdr for inhalation 1 inh INHALATION Q12H 01/15/18 [History Confirmed 03/01/18] hydroxyzine HCl 25 mg tablet 25 mg PO DAILY PRN 01/15/18 [History Confirmed 03/01/18] megestrol 20 mg tablet 10 mg PO TID tab 03/01/18 [History Confirmed 03/01/18] ondansetron HCl 4 mg tablet 4 mg PO Q8H PRN tab 03/01/18 [History Confirmed 03/01/18] oxybutynin chloride ER 10 mg tablet,extended release 24 hr 10 mg PO QDAY 03/01/18 [History Confirmed 03/01/18] PFSH Medical History Takotsubo cardiomyopathy (Chronic) Nonrheumatic tricuspid (valve) insufficiency (Chronic) Atherosclerotic heart disease of [place] coronary artery without angina pectoris (Chronic) Hypothyroidism (Chronic) COPD (chronic obstructive pulmonary disease) (Chronic) Hyperlipidemia (Chronic) Type 2 diabetes mellitus (Chronic) Anemia (Acute) CVA (cerebral vascular accident) (Acute) Depression (Chronic) Osteoarthritis (Chronic) Surgical History History of arthroplasty of right hip (Chronic) History of back surgery (Chronic) History of left hip replacement (Chronic) History of total bilateral knee replacement (Chronic) Social History Smoking Status: Never smoker alcohol intake: never substance use type: does not use ROS Const Const: Positive for fatigue (past several days; no energy); negative for weakness, weight gain, weight loss, frequent falls or excessive sweating Eyes Eyes: Negative for change in vision, blurry vision or transient loss of vision ENT ENT: Positive for balance problems (ambulates with a wheeled walker); negative for dizziness Cardio Chest Pain: No Edema: None, Right (slight) Muscle aches with walking: None Resp Respiratory: Positive for SOB with activity (increased) Additional Details: HX chronic bronchitis GI GI: Negative vomiting or vomiting blood/hematemesis : Negative for hematuria Musc Musc: Positive for balance problems (ambulates with a wheeled walker); negative for muscle aches/ myalgia, muscle weakness or joint pain Skin Skin: Negative non-healing lesions or rash Neuro Neuro: Negative for weakness, blurry vision, dizziness, lightheadedness, frequent falls or orthostatic symptoms Elan Hematologic/Lymphatic: Negative for easy bleeding Endo Endo: Positive for fatigue (past several days; no energy); negative for excessive sweating Psych Psych: Negative for anxiety or depression Allergy Allergy/Immunology: Negative for hives, Negative for rash Cardiology Exam Const Appearance: cooperative, well developed, well groomed, comfortable and healthy appearing Nutritional Appearance: average body habitus Orientation: alert, awake and oriented x3 Head Head: normal to inspection, normocephalic and atraumatic Ears: hearing grossly normal bilaterally Nose: external nose normal Face and Sinus: face symmetric Mouth: oral mucosae normal Eyes Eyelids: eyelids normal Conjunctivae: conjunctivae normal Pupils: PERRL EOM: EOM intact bilaterally Neck Neck: normal visual inspection and full ROM Chest Chest inspection: normal inspection of the chest and symmetric chest movement Auscultation: Bilateral: Clear to Auscultation Cardio Palpation: normal PMI Rate: tachycardic Rhythm: regular rhythm Heart sounds: S1 normal and S2 normal GI GI: normal to inspection, soft, no hepatosplenomegaly and bowel sounds present Neuro General: alert, awake and oriented x3 Extremities Pulses: Normal: Right Radial Pulse, Left Radial Pulse Lower Extremity Edema: Trace: Bilateral Psych Psychological: normal affect Supplemental Info Her most recent echocardiogram from [facility] was on 08/28/2016. The results are as noted below. Interpretation Summary Mild segmental systolic dysfunction (see wail motion) The estimated ejection fraction is 45 %. The left atrium is mildly enlarged. Mild (1+) eccentric mitral Valve insufficiency. Trivial tricuspid valve insufficiency. Her previous stress test at [facility] was on 07/20/2007. At that point in time she had no significant fixed defects to suggest infarct and no reversible defects to suggest ischemia. He had a diagnostic cardiac catheterization performed at [facility] on 09/13/2012. At that point in time the results are as noted below. Impression: Minimal atherosclerotic coronary artery disease. The left ventricular ejection fraction was 35%. The overall left ventricular systolic function was moderately reduced. Mid to apical left ventricular akinesis. 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 Assessment AND Plan 1. Paroxysmal supraventricular tachycardia I47.1 Plan At the present time she is in an underlying supraventricular tachycardia. This may be a reentry mechanism. This may also be the etiology for her recent fatigue and shortness of breath/dyspnea. She will be referred to the [facility] emergency department for further evaluation and care. This will include additional diagnostic studies as deemed appropriate as well as potential therapeutic intervention with agent such as IV adenosine. 2. Takotsubo cardiomyopathy I51.81 Plan She does have a history of the aforementioned cardiomyopathy. She appears to be without acute CHF or pulmonary edema at this time. However this could change based upon her underlying progressive SVT. At the present time she will proceed with further evaluation care of her SVT as noted above. She will need to continue medical therapy and follow-up for her underlying cardiomyopathy as deemed appropriate. 3. Atherosclerosis of [place] coronary artery of [place] heart without angina pectoris I25.10 Mild Plan She does have a history of underlying CAD as noted above. It did not appear to be angiographically significant. She has not required catheter- based or surgical based revascularization therapy. She continues with risk factor modification medical management as deemed appropriate. Orders Orders: 4. Mitral valve insufficiency, unspecified etiology I34.0 Plan Based upon her last transthoracic echocardiogram she did have mild MR and trivial TR respectively. This will be reassessed as needed 5. Hyperlipidemia, unspecified hyperlipidemia type E78.5 Plan Her lipid profile is as noted above. She will continue risk factor modification medical therapy as deemed appropriate. 6. Hypothyroidism, unspecified type E03.9 Plan Her TSH level is as noted above. It appears this may be less likely an etiology for her underlying cardiac dysrhythmia. This can be reassessed as needed. 7. Diabetes mellitus, type II E11.9 Plan She will continue under the care of her primary care physician for this diagnosis. 8. Chronic obstructive pulmonary disease, unspecified COPD type J44.9 Plan She will continue under the care of her primary care physician for this diagnosis. Plan Detail Other Orders Orders: Additional Comments The above was discussed with the patient and her daughter. They are agreeable to this approach. Thank you for allowing me to participate in the care of your patient. Please don't hesitate to call if any issues arise. This note was generated using a voice recognition system and there may be incorrect words, spelling or punctuation that were not noted when reviewing the office note prior to saving. Follow Up 6 Months (PFM) Coding Level of Care Code Off vis,est,level 4 Diagnoses Paroxysmal supraventricular tachycardia I47.1 Takotsubo cardiomyopathy I51.81 Atherosclerosis of [place] coronary artery of [place] heart without angina pectoris I25.10 [place] vs. transplanted heart: [place] heart Mitral valve insufficiency, unspecified etiology I34.0 Cardiac valve disease etiology: etiology unspecified Hyperlipidemia, unspecified hyperlipidemia type E78.5 Hyperlipidemia type: unspecified Hypothyroidism, unspecified type E03.9 Hypothyroidism type: unspecified Diabetes mellitus, type II E11.9 Diabetes mellitus complication status: with unspecified complications Chronic obstructive pulmonary disease, unspecified COPD type J44.9 COPD type: unspecified COPD Coding Level of Care Code Off vis,est,level 4 Diagnoses Paroxysmal supraventricular tachycardia I47.1 Takotsubo cardiomyopathy I51.81 Atherosclerosis of [place] coronary artery of [place] heart without angina pectoris I25.10 [place] vs. transplanted heart: [place] heart Mitral valve insufficiency, unspecified etiology I34.0 Cardiac valve disease etiology: etiology unspecified Hyperlipidemia, unspecified hyperlipidemia type E78.5 Hyperlipidemia type: unspecified Hypothyroidism, unspecified type E03.9 Hypothyroidism type: unspecified Diabetes mellitus, type II E11.9 Diabetes mellitus complication status: with unspecified complications Chronic obstructive pulmonary disease, unspecified COPD type J44.9 COPD type: unspecified COPD 03/01/18 1409 <Electronically signed by Charly Ross MD> Date Charly Ross MD Cosigner Signature: Date (if applicable) CC: Tracy Jones DO CHEST 1 VIEW Observed: 03/01/2018 Status: F Source: GISSEL (PORTABLE) 2:09 PM [facility] REPOSITORY [facility] [place] [address] Chest 1 View (Portable) MR#: [id number] Acct: [id number] Name: JIMENEZ WYNN Rep #: [id number] : 1935 F 82 From: Lou Lim MD PCP: Tracy Jones DO Status: PRE ER Study: Chest 1 View (Portable) Date of Exam: 03/01/18 Exam# [id number] Ordering Dr: Jeremi Rosales DO STUDY: X-RAY CHEST REASON FOR EXAM: Female, 82 years old. Tachycardia TECHNIQUE: Single AP portable view of the chest. COMPARISON: 03/26/2017 FINDINGS: EKG leads overlie the chest Lungs are expanded. Left lung is clear. There is new opacification in the right lung base, likely infiltrate or atelectasis. Follow- up recommended to assure resolution There is no demonstrated pleural abnormality. Normal size heart. Normal mediastinum and aruna. Normal visualized pulmonary arteries. Normal visualized aortic arch and descending thoracic aorta. There are diffuse degenerative changes of the visualized thoracic spine. There is degenerative osteoarthritis of the bilateral shoulders. There is no demonstrated abnormality of the visualized soft tissue structures of the upper abdomen. RAD/Chest 1 View (Portable) IMPRESSION: Airspace opacification in the right lower lobe suspicious for infiltrate or atelectasis. Follow-up recommended to assure resolution. No demonstrated effusion. Electronically Signed: Cristhian Lim MD at 14:30 EDT , Service support , CC: Tracy Jones DO; Jeremi Rosales DO Sales Manager: Signed CHEST 1 VIEW Observed: 03/01/2018 Status: F Source: [place]RE[place]UGH (PORTABLE) 2:09 PM [facility] REPOSITORY [facility] Imaging Services [address] [place] [address] [place] [address] Chest 1 View (Portable) MR#: [id number] Acct: [id number] Name: JIMENEZ WYNN Rep #: [id number] : 1935 F 82 From: Lou Lim MD PCP: Tracy Jones DO Status: DIS IN Study: Chest 1 View (Portable) Date of Exam: 03/01/18 Exam# [id number] Ordering Dr: Jeremi Rosales DO STUDY: X-RAY CHEST REASON FOR EXAM: Female, 82 years old. Tachycardia TECHNIQUE: Single AP portable view of the chest. COMPARISON: 03/26/2017 FINDINGS: EKG leads overlie the chest Lungs are expanded. Left lung is clear. There is new opacification in the right lung base, likely infiltrate or atelectasis. Follow- up recommended to assure resolution There is no demonstrated pleural abnormality. Normal size heart. Normal mediastinum and aruna. Normal visualized pulmonary arteries. Normal visualized aortic arch and descending thoracic aorta. There are diffuse degenerative changes of the visualized thoracic spine. There is degenerative osteoarthritis of the bilateral shoulders. There is no demonstrated abnormality of the visualized soft tissue structures of the upper abdomen. RAD/Chest 1 View (Portable) IMPRESSION: Airspace opacification in the right lower lobe suspicious for infiltrate or atelectasis. Follow-up recommended to assure resolution. No demonstrated effusion. Electronically Signed: Cristhian Lim MD at 14:30 EDT , Service support , CC: rTacy Jones DO; Jeremi Rosales DO Sales Manager: Signed CBC W/DIFF, AUTOMATED Collected: 03/01/2018 Status: F Source: GISSEL 2:07 PM [facility] REPOSITORY TYPE CODE TESTS RESULT OUT OF RANGE REFERENCE UNITS LAB L100.1000 4.4-11.0 K/mm3 High WBC 18.2 LAB L100.1200 4.2-5.4 M/mm3 Low RBC 3.57 LAB L100.1300 12.0-15.0 g/dl Normal HGB 12.2 LAB L100.1400 37-47 % Low HCT 36.6 LAB L100.1500 81-99 fL High MCV 102.5 LAB L100.1600 27.0-32.0 pg High MCH 34.2 LAB L100.1700 32-36 g/gl Normal MCHC 33.3 LAB L100.1810 11.6-14.6 % Normal RDW CV 13.0 LAB L100.1820 35.1-43.9 fl High RDW SD 48.2 LAB L100.1900 150-450 K/mm3 Normal PLT 427 LAB L100.2000 6.2-12.0 fl Normal MPV 8.9 LAB L100.2100 47-70 % High NEUT% 83.4 LAB L100.2200 19-41 % Low LY% 6.8 LAB L100.2300 0-10 % Normal MONO% 7.6 LAB L100.2400 0-5 % Normal EO% 0.9 LAB L100.2500 0-1 % Normal BASO% 0.4 LAB L100.2550 0.0-0.9 % Normal IM GRAN % 0.900 Result Comment: IG% - Immature Granulocytes (promyelocytes, myelocytes and metamyelocytes) > 1% indicates that a LEFT SHIFT is Present. LAB L100.2620 2.0-7.7 X10 3/uL High Absolute Neut 15.2 LAB L100.2720 0.83-4.51 X10 3/ul Normal Absolute Lymph 1.24 Performed By: #### L100.0100 #### [facility] [address] [place], [place], [id number] BNP,B-TYPE NATRIURETIC Collected: 03/01/2018 Status: F Source: FIRE[place]UGH PEPTIDE 2:07 PM [facility] REPOSITORY TYPE CODE TESTS RESULT OUT OF RANGE REFERENCE UNITS LAB L503.6620 0-100 pg/mL High B-TYPE 120.4 SIMA PEP Performed By: #### L503.6620 #### [facility] [address], [place], [address] CBC W/DIFF, AUTOMATED Collected: 03/01/2018 Status: F Source: GISSEL 2:07 PM [facility] REPOSITORY TYPE CODE TESTS RESULT OUT OF RANGE REFERENCE UNITS LAB L100.1000 4.4-11.0 K/mm3 High WBC 18.2 LAB L100.1200 4.2-5.4 M/mm3 Low RBC 3.57 LAB L100.1300 12.0-15.0 g/dl Normal HGB 12.2 LAB L100.1400 37-47 % Low HCT 36.6 LAB L100.1500 81-99 fL High MCV 102.5 LAB L100.1600 27.0-32.0 pg High MCH 34.2 LAB L100.1700 32-36 g/gl Normal MCHC 33.3 LAB L100.1810 11.6-14.6 % Normal RDW CV 13.0 LAB L100.1820 35.1-43.9 fl High RDW SD 48.2 LAB L100.1900 150-450 K/mm3 Normal PLT 427 LAB L100.2000 6.2-12.0 fl Normal MPV 8.9 LAB L100.2100 47-70 % High NEUT% 83.4 LAB L100.2200 19-41 % Low LY% 6.8 LAB L100.2300 0-10 % Normal MONO% 7.6 LAB L100.2400 0-5 % Normal EO% 0.9 LAB L100.2500 0-1 % Normal BASO% 0.4 LAB L100.2550 0.0-0.9 % Normal IM GRAN % 0.900 Result Comment: IG% - Immature Granulocytes (promyelocytes, myelocytes and metamyelocytes) > 1% indicates that a LEFT SHIFT is Present. LAB L100.2620 2.0-7.7 X10 3/uL High Absolute Neut 15.2 LAB L100.2720 0.83-4.51 X10 3/ul Normal Absolute Lymph 1.24 Performed By: #### L100.0100 #### [facility] [address] [facility] [place], [place], [address] BNP,B-TYPE NATRIURETIC Collected: 03/01/2018 Status: F Source: FIRE[place] PEPTIDE 2:07 PM [facility] REPOSITORY TYPE CODE TESTS RESULT OUT OF RANGE REFERENCE UNITS LAB L503.6620 0-100 pg/mL High B-TYPE 120.4 SIMA PEP Performed By: #### L503.6620 #### [facility] [address] [place], [place], [address] BASIC METABOLIC Collected: 03/01/2018 Status: F Source: GISSEL PROFILE (BMP) 2:07 PM [facility] REPOSITORY Order Comment: 'TROP' Serial specimen #1, #2, #3, or #4: 1 TYPE CODE TESTS RESULT OUT OF RANGE REFERENCE UNITS LAB L501.0100 74-106 mg/dL High GLU 327 Result Comment: Glucose result greater than or equal to 200 mg/dL suggests DIABETES MELLITUS per A.D.A. criteria. Please note revised GLUCOSE reference range effective 2017. LAB L501.1000 7-18 mg/dL High BUN 33 LAB L501.1100 0.55-1.02 mg/dL High CREAT,SERUM 2.48 Result Comment: The validity of the calculated GFR AND GFRAA in patients over 70 years has not been determined. Clinical correlation is essential. LAB L501.1110 >60 mL/min Low EST GFR 20 Result Comment: Non- GFR Calc LAB L501.1115 >60 mL/min Low EST GFR - AA 24 Result Comment: GFR Calc LAB L501.1255 ml/min Normal Estimated CRCL 14.07 LAB L501.1300 10-20 RATIO Normal BUN/CRE 13.3 LAB L501.2200 8.5-10 mg/dL Normal .1 CA 9.2 LAB L501.5300 136-14 mmol/L Normal 5 NA 136 LAB L501.5600 3.5-5. mmol/L High 1 K alert 6.4 Result Comment: Critical Result(s) Called Ivan ARREOLA at: 15:05:57 03/01/2018 by: RITESH FOOTE LAB L501.5900 98-107 mmol/L Normal CL 106 LAB L501.6100 21.0-32.0 mmol/L Low CO2 20.0 LAB L501.6200 5-15 Normal GAP 10 Performed By: #### L500.2500, L501.4010 #### [facility] [address] [place], [place], [address] TROPONIN-I Collected: 03/01/2018 Status: F Source: GISSEL 2:07 PM [facility] REPOSITORY Order Comment: 'TROP' Serial specimen #1, #2, #3, or #4: 1 TYPE CODE TESTS RESULT OUT OF RANGE REFERENCE UNITS LAB L501.4010 <0.06 ng/mL Normal 0.02 TROPONIN-I Result Comment: TROPONIN-I EXPECTED VALUES <0.05 NEGATIVE 0.06 - 0.59 AT RISK OF MD > OR = 0.60 SUGGEST MD Performed By: #### L500.2500, L501.4010 #### [facility] [address] [place], [address] 12 LEAD EKG PERFORMED Observed: 03/01/2018 Status: F Source: GISSEL BY [facility] 1:21 PM [facility] REPOSITORY [facility] [address] [place] [address] 12 Lead EKG performed by [facility] 03/01/18 1320 MR#: [id number] Acct: [id number] Name: JIMENEZ WYNN Rep #: [id number] : 1935 82 From: Charly Ross MD Attending Dr: Charly Ross MD Status: REG AMB Ordering Dr: Charly Ross MD Date: 03/01/18 Location: [facility] Sex: F C Admitted: BMS/12 Lead EKG performed by [facility] ECG Report Interpretation Supraventricular Tachycardia Leftward axisPoor R wave progressionElectronically signed on 03/01/2018 at 13:45 by Charly Ross 03/01/18 1348 Date Charly Ross MD CC: Tracy Jones DO Date Dictated: 03/01/18 1320 Date Transcribed: 03/01/18 132 Sales Manager: PM Signed BASIC METABOLIC Collected: 01/21/2018 Status: F Source: GISSEL PROFILE (BMP) 6:10 AM [facility] REPOSITORY Order Comment: 204 TYPE CODE TESTS RESULT OUT OF RANGE REFERENCE UNITS LAB L501.0100 74-106 mg/dL High GLU 152 Result Comment: Fasting Glucose result greater than or equal to 126 mg/dL suggests DIABETES MELLITUS per A.D.A. criteria. Please note revised GLUCOSE reference range effective 2017. LAB L501.1000 7-18 mg/dL High BUN 19 LAB L501.1100 0.55-1.02 mg/dL High CREAT,SERUM 1.35 Result Comment: The validity of the calculated GFR AND GFRAA in patients over 70 years has not been determined. Clinical correlation is essential. LAB L501.1110 >60 mL/min Low EST GFR 40 Result Comment: Non- GFR Calc LAB L501.1115 >60 mL/min Low EST GFR - AA 48 Result Comment: GFR Calc LAB L501.1300 10-20 RATIO Normal BUN/CRE 14.1 LAB L501.2200 8.5-10.1 mg/dL Low CA 8.4 LAB L501.5300 136-145 mmol/L Low NA 134 LAB L501.5600 3.5-5.1 mmol/L K Normal 5.1 Result Comment: Moderate Hemolysis, Result may be falsely increased. LAB L501.5900 98-107 mmol/L Normal CL 103 LAB L501.6100 21.0-32.0 mmol/L Normal CO2 23.0 LAB L501.6200 5-15 Normal 8 GAP Performed By: #### L500.2500 #### [facility] [address] [place], [place], [address] CBC W/DIFF, AUTOMATED Collected: 01/18/2018 Status: F Source: [place]RE[place]UGH 6:30 AM [facility] REPOSITORY Order Comment: ROOM 204 [place] TYPE CODE TESTS RESULT OUT OF RANGE REFERENCE UNITS LAB L100.1000 4.4-11.0 K/mm3 Normal WBC 7.5 LAB L100.1200 4.2-5.4 M/mm3 Low RBC 3.24 LAB L100.1300 12.0-15.0 g/dl Low HGB 10.7 LAB L100.1400 37-47 % Low HCT 32.5 LAB L100.1500 81-99 fL High MCV 100.3 LAB L100.1600 27.0-32.0 pg High MCH 33.0 LAB L100.1700 32-36 g/gl Normal MCHC 32.9 LAB L100.1810 11.6-14.6 % High RDW CV 15.2 LAB L100.1820 35.1-43.9 fl High RDW SD 56.4 LAB L100.1900 150-450 K/mm3 Normal PLT 257 LAB L100.2000 6.2-12.0 fl Normal MPV 8.9 LAB L100.2100 47-70 % Normal NEUT% 65.2 LAB L100.2200 19-41 % Normal LY% 21.0 LAB L100.2300 0-10 % Normal MONO% 9.1 LAB L100.2400 0-5 % Normal EO% 4.0 LAB L100.2500 0-1 % Normal BASO% 0.3 LAB L100.2550 0.0-0.9 % Normal IM GRAN % 0.400 Result Comment: IG% - Immature Granulocytes (promyelocytes, myelocytes and metamyelocytes) > 1% indicates that a LEFT SHIFT is Present. LAB L100.2620 2.0-7.7 X10 3/uL Normal Absolute Neut 4.9 LAB L100.2720 0.83-4.51 X10 3/ul Normal Absolute Lymph 1.57 Performed By: #### L100.0100 #### [facility] [address] [place], [address] COMPREHENSIVE METABOLIC Collected: 01/18/2018 Status: F Source: [facility] 6:30 AM [facility] REPOSITORY Order Comment: ROOM 204 [place] TYPE CODE TESTS RESULT OUT OF RANGE REFERENCE UNITS LAB L501.0100 74-106 mg/dL High GLU 118 Result Comment: Fasting Glucose result from 100 to 125 mg/dL suggests IMPAIRED HOMEOSTASIS per A.D.A. criteria. Please note revised GLUCOSE reference range effective 2017. LAB L501.1000 7-18 mg/dL High BUN 25 LAB L501.1100 0.55-1.02 mg/dL High CREAT,SERUM 1.76 Result Comment: The validity of the calculated GFR AND GFRAA in patients over 70 years has not been determined. Clinical correlation is essential. LAB L501.1110 >60 mL/min Low EST GFR 29 Result Comment: Non- GFR Calc LAB L501.1115 >60 mL/min Low EST GFR - AA 36 Result Comment: GFR Calc LAB L501.1300 10-20 RATIO Normal BUN/CRE 14.2 LAB L501.1500 6.4-8.2 g/dL Low T PROT 5.2 LAB L501.1800 3.2-5.0 g/dL Low ALB 2.5 LAB L501.1950 2.2-4.2 g/dL Normal GLOB 2.7 LAB L501.2000 0.9-2.4 RATIO Normal A/G 0.9 LAB L501.2200 8.5-10.1 mg/dL Low CA 8.0 LAB L501.4100 15-37 U/L Low AST 11 LAB L501.4305 45-117 U/L Normal ALK P 85 LAB L501.4405 13-56 U/L Normal ALT 19 Result Comment: Please note revised ALT reference range effective 2017. LAB L501.4600 0.20-1.00 mg/dL Normal T BILI 0.50 LAB L501.5300 136-145 mmol/L Normal NA 138 LAB L501.5600 3.5-5.1 mmol/L Normal K 5.1 LAB L501.5900 98-107 mmol/L Normal CL 107 LAB L501.6100 21.0-32.0 mmol/L Normal CO2 22.0 LAB L501.6200 5-15 Normal GAP 9 Performed By: #### L500.4050, L500.4100, L501.9520 #### [facility] [address] [place], [place], [address] LIPID PROFILE Collected: 01/18/2018 Status: F Source: [place]RE[place] 6:30 AM [facility] REPOSITORY Order Comment: ROOM 204 [place] TYPE CODE TESTS RESULT OUT OF RANGE REFERENCE UNITS LAB L501.4900 200 mg/dL Normal CHOL 88 Result Comment: <200 mg/dL Desirable 200-240 mg/dL Borderline >240 mg/dL High Risk LAB L501.5000 mg/dL Normal TRIG 59 Result Comment: The drugs N-Acetylcysteine and Metamizole may falsely depress this assay. Serum Triglycerides Reference Interval Normal <150 mg/dL Borderline high 150 - 199 mg/dL High 200 - 499 mg/dL Very High > or = 500 mg/dL LAB L501.6400 mg/dL Normal HDL 56 Result Comment: The drugs N-Acetylcysteine and Metamizole may falsely depress this assay. Reference Range HDL <40 mg/dL Low HDL Cholesterol HDL >or= 60 mg/dL High HDL Cholesterol LAB L501.6500 0-130 mg/dL Normal LDL 20 LAB L501.6600 5-40 mg/dL Normal VLDL 12 Performed By: #### L500.4050, L500.4100, L501.9520 #### [facility] [address] [place], [address] THYROID STIM HORMONE Collected: 01/18/2018 Status: F Source: GISSEL (TSH) 6:30 AM [facility] REPOSITORY Order Comment: ROOM 204 [place] TYPE CODE TESTS RESULT OUT OF RANGE REFERENCE UNITS LAB L501.9520 0.358-3.74 uIU/mL Normal TSH 1.77 Performed By: #### L500.4050, L500.4100, L501.9520 #### [facility] [address] [place], [place], [address] HEMOGLOBIN A1C Collected: 01/18/2018 Status: F Source: GISSEL 6:30 AM [facility] REPOSITORY Order Comment: ROOM 204 [place] TYPE CODE TESTS RESULT OUT OF RANGE REFERENCE UNITS LAB L501.9985 4.2-6.3 % High HGB A1C 9.1 Performed By: #### L501.9985 #### [facility] [address] [facility] [place], [place], [address] VITAMIN D,25 HYDROXY Collected: 01/18/2018 Status: F Source: GISSEL 6:30 AM [facility] REPOSITORY Order Comment: ROOM 204 [place] TYPE CODE TESTS RESULT OUT OF RANGE REFERENCE UNITS LAB L506.1000 29.95-100.01 ng/mL Normal Vitamin D 53.1 25-OH Result Comment: Vitamin D 25(OH) Status Range Deficiency <20 ng/mL (50nmol/L) Insuffciency 20 - 30 ng/mL (50 - 75 nmol/L) Sufficiency 30 - 100 ng/mL (75 - 250 nmol/L) Toxicity >100 ng/mL (>250 nmol/L) Performed By: #### L506.1000 #### [facility] [address] [place], [place], [address] ALLERGIES ALLERGIES DATE TYPE / NAME / CODE REACTION SEVERITY SOURCE CODE 09/15/2018 Drug hydrocodone Chest tightness Unknown [place] Allergy/41 bitartrate/V93398 Community [id number]( 1555(RXNORM) [facility]) Repository 09/15/2018 Drug Penicillins/F0010 Rash Unknown [place] Allergy/41 75553(RXNORM) Community 6187141([facility]) Repository 09/15/2018 Drug Sulfa Unknown Unknown [place] Allergy/41 (Sulfonamide Community 2439870( Antibiotics)/F001 [facility] 538244(RXNORM) Repository 09/15/2018 Drug Latex, Natural Rash Unknown [place] Allergy/41 Rubber/[id number] Community 4119504( (RXNORM) [facility]) Repository 09/15/2018 Drug codeine/[id number] HEART ATTACK SV [place] Allergy/41 [facility] [id number] Repository 09/15/2018 Drug acetaminophen/F00 Chest tightness Unknown [place] Allergy/41 9090290(RXNORM) [facility] [id number][facility]) Repository 09/15/2018 Drug adhesive Other Unknown [place] Allergy/41 tape/[id number](R Community 4135071( XNORM) [facility]) Repository 09/15/2018 Drug citalopram/E34845 Unknown Unknown [place] Allergy/41 5106(RXNORM) [facility] 0332863([facility]) Repository 09/15/2018 Drug levofloxacin/F006 Anaphylaxis SV [place] Allergy/41 335438(RXNORM) [facility] 1233959([facility]) Repository ENCOUNTERS ENCOUNTERS ADMIT/DISCHARGE ACCOUNT ADMITTING ENCOUNTER LOCATION SOURCE NUMBER CLASS 11/22/2018 [id number] Ambulatory [place] 1 [facility] ing:[facility]S.[facility] Repository R 11/15/2018 [id number] [place] 8 [facility] ing:[facility] Repository R 11/12/2018 [id number] Ambulatory [place] [facility] ing:WC Repository 11/08/2018 [id number] Ambulatory [place] 2 [facility] ing:[facility] Repository R 11/01/2018 [id number] [place] [facility] ing:[facility] Repository R 10/27/2018/ [id number] Ambulatory [place] [address] 1 [facility] ing: Repository 10/25/2018 [id number] [place] 0 [facility] ing:[facility] Repository R 10/18/2018 [id number] Ambulatory [place] 0 [facility] ing:[facility] Repository R 10/13/2018 [id number] Ambulatory BMSBuilding:W [place] 8 [facility] Repository 10/11/2018 [id number] Ambulatory [place] 1 [facility] ing:[facility] Repository C 10/04/2018 [id number] Ambulatory [place] 6 [facility] ing:[facility] Repository C 09/27/2018 [id number] [place] 3 [facility] ing:[facility] Repository C 09/22/2018 [id number] Ambulatory [place] 5 [facility] ing:[facility] Repository C 09/15/2018/ [id number] [place], Inpatient [place] 8 4 [place] Encounter [facility] ing:PCURoom: Repository [id number]: 1 09/15/2018 [id number] [place], Ambulatory BMSBuilding:B [place] 8 [place] [facility] Repository 09/15/2018 [id number] [place], Ambulatory BMSBuilding:B [place] 8 [place] MS.[facility] Repository 09/15/2018 [id number] [place], Ambulatory BMSBuilding:B [place] 8 [place] [facility] Repository 09/15/2018 [id number] [place], Ambulatory BMSBuilding:B [place] 1 [place] MS.[facility] Repository 09/15/2018 [id number] [place], Ambulatory BMSBuilding:B [place] 9 [place] MS.[facility] Repository 09/15/2018 [id number] [place], Ambulatory BMSBuilding:B [place] 6 [place] MS.CF.[facility] Repository 09/15/2018 [id number] [facility], Ambulatory BMSBuilding:B [place] 8 [place].[facility] Repository 09/15/2018 [id number] [place], Ambulatory BMSBuilding:B [place] 9 [place] MS.CF.[facility] Repository 09/15/2018 [id number] [facility], Ambulatory BMSBuilding:B [place] 0 [place].[facility] Repository 09/15/2018 [id number] [facility], Ambulatory BMSBuilding:B [place] 7 [place].[facility] Repository 09/15/2018 [id number] Ambulatory [place] 1 [facility] Repository S 09/13/2018 [id number] Ambulatory [place] 1 [facility] ing:[facility] Repository C 09/10/2018 [id number] Ambulatory [place] 4 [facility] ing:[facility] Repository C 09/08/2018/ [id number] [place] 8 0 [facility] ing: Repository 09/08/2018 [id number] Ambulatory BMSBuilding:W [place] 4 [facility] Repository 09/08/2018 [id number] Ambulatory [place] 4 [facility] ing:[facility] Repository C 09/06/2018 [id number] Ambulatory [place] 9 [facility] ing:[facility] Repository C 09/03/2018 [id number] Ambulatory [place] 3 [facility] Repository C 08/31/2018 [id number] Ambulatory [place] 0 [facility] Repository C 08/30/2018/ [id number] Ambulatory BMSBuilding:B [place] 8 2 [facility] Repository 08/30/2018 [id number] Ambulatory [place] 8 [facility] ing:[facility] Repository C 08/28/2018 [id number] [place] [facility] ing:[facility] Repository C 08/25/2018/ [id number] Ambulatory [place] 8 0 [facility] ing: Repository 08/25/2018 [id number] Ambulatory BMSBuilding:W [place] 8 [facility] Repository 08/24/2018 [id number] Ambulatory BMSBuilding:B [place] 9 [facility] Repository 08/23/2018 [id number] Ambulatory [place] 0 [facility] ing:[facility] Repository C 08/20/2018/ [id number] Ambulatory BMSBuilding:B [place] 8 7 [facility] Repository 08/16/2018 [id number] [place] [facility] ing:[facility] Repository C 08/11/2018 [id number] [place] [facility] ing:[facility] Repository C 08/09/2018 [id number] [place] [facility] ing:[facility] Repository C 07/20/2018/ [id number] [place], [place] Inpatient [place] 8 3 Encounter [facility] ing:PCURoom: Repository [id number]: 1 07/20/2018 [id number] [place], [place] Ambulatory BMSBuilding:B [place] 9 MS.[facility] Repository 07/20/2018 [id number] [place], [place]ore Ambulatory BMSBuilding:B [place] 7 [facility] Repository 07/20/2018 [id number] [place], [place] Ambulatory BMSBuilding:B [place] 7 MS.[facility] Repository 07/20/2018 [id number] [place], Lenore Ambulatory BMSBuilding:B [place] 4 [facility] Repository 07/20/2018 [id number] [place], [place]ore Ambulatory BMSBuilding:B [place] 6 [place].[facility] Repository 07/20/2018 [id number] [place], [place]ore Ambulatory BMSBuilding:B [place] 3 MS.[facility] Repository 07/20/2018 [id number] [place], Lenore Ambulatory BMSBuilding:B [place] 2 MS..[facility] Repository 07/20/2018 [id number] [place], Lenore Ambulatory BMSBuilding:B [place] 1 MS.[facility] Repository 07/20/2018 [id number] [place], Lenore Ambulatory BMSBuilding:B [place] 9 [facility] Repository 07/20/2018 [id number] [place], [place] Ambulatory BMSBuilding:B [place] 5 [place].[facility] Repository 07/20/2018 [id number] [place], [place]ore Ambulatory BMSBuilding:B [place] 9 MS..[facility] Repository 07/20/2018 [id number] [place], [place] Ambulatory BMSBuilding:B [place] 2 [facility] Repository 07/20/2018 [id number] [place], [place] Ambulatory BMSBuilding:B [place] 3 [place].[facility] Repository 07/20/2018 [id number] [place], [place]ore Ambulatory BMSBuilding:B [place] 3 MS.[facility] Repository 07/20/2018 [id number] [place], Lenore Ambulatory BMSBuilding:B [place] 5 [facility] Repository 07/20/2018 [id number] [place], Lenore Ambulatory BMSBuilding:B [place] 6 [place]..[facility] Repository 07/20/2018 [id number] Paintsil, Lenore Ambulatory BMSBuilding:B [place] 0 [place].[facility] Repository 07/20/2018 [id number] Paintsil, Lenore Ambulatory BMSBuilding:B [place] 1 [facility] Repository 07/20/2018 [id number] Paintsil, Lenore Ambulatory BMSBuilding:B [place] 0 MS.[facility] Repository 07/20/2018 [id number] Paintsil, Lenore Ambulatory BMSBuilding:B [place] 7 [facility] Repository 07/20/2018 [id number] [place], [place]ore Ambulatory BMSBuilding:B [place] 0 [place].[facility] Repository 07/20/2018 [id number] [place], Lenore Ambulatory BMSBuilding:B [place] 3 MS..[facility] Repository 07/20/2018 [id number] Paint[place], Lenore Ambulatory BMSBuilding:B [place] 8 MS.[facility] Repository 07/20/2018 [id number] Paintsil, Lenore Ambulatory BMSBuilding:B [place] 8 MS.[facility] Repository 07/20/2018 [id number] Paint[place], Lenore Ambulatory BMSBuilding:B [place] 3 [place].[facility] Repository 07/20/2018 [id number] Paint[place], Lenore Ambulatory BMSBuilding:B [place] 7 MS..[facility] Repository 07/20/2018 [id number] Paintsil, Lenore Ambulatory BMSBuilding:B [place] 0 [facility] Repository 07/20/2018 [id number] Paintsil, Lenore Ambulatory BMSBuilding:B [place] 7 MS.[facility] Repository 07/20/2018 [id number] Paintsil, Lenore Ambulatory BMSBuilding:B [place] 8 MS.[facility] Repository 07/20/2018 [id number] Paintsil, Lenore Ambulatory BMSBuilding:B [place] 1 [facility] Repository 07/20/2018 [id number] Paint[place], [place]ore Ambulatory BMSBuilding:B [place] 0 [facility] Repository 07/20/2018 [id number] Paint[place], Lenore Ambulatory BMSBuilding:B [place] 3 [place].[facility] Repository 07/20/2018 [id number] Paintsil, Lenore Ambulatory BMSBuilding:B [place] 8 [facility] Repository 07/20/2018 [id number] Paint[place], Lenore Ambulatory BMSBuilding:B [place] 5 MS.[facility] Repository 07/20/2018 [id number] Paintsil, Lenore Ambulatory BMSBuilding:B [place] 5 MS.[facility] Repository 07/20/2018 [id number] [place], Lenore Ambulatory BMSBuilding:B [place] 2 MS.[facility] Repository 07/20/2018 [id number] Paint[place], Lenore Ambulatory BMSBuilding:B [place] 4 MS.[facility] Repository 07/20/2018 [id number] Paint[place], Lenore Ambulatory BMSBuilding:B [place] 4 [facility] Repository 07/20/2018 [id number] [place], Lenore Ambulatory BMSBuilding:B [place] 7 MS.[facility] Repository 07/20/2018 [id number] [place], [place]ore Ambulatory BMSBuilding:B [place] 4 [facility] Repository 07/20/2018 [id number] Paintsil, Lenore Ambulatory BMSBuilding:B [place] 8 MS.[facility] Repository 07/20/2018 [id number] [place], [place]ore Ambulatory BMSBuilding:B [place] 9 [facility] Repository 07/20/2018 [id number] [place], Lenore Ambulatory BMSBuilding:B [place] 9 [place].[facility] Repository 07/20/2018 [id number] Paint[place], Lenore Ambulatory BMSBuilding:B [place] 0 [facility] Repository 07/20/2018 [id number] Paint[place], Lenore Ambulatory BMSBuilding:B [place] 1 [place].[facility] Repository 07/20/2018/ [id number] Ambulatory BMSBuilding:W [place] 8 6 [facility] Repository 07/20/2018/ [id number] Ambulatory BMSBuilding:W [place] 8 6 [facility] Repository 07/07/2018 [id number] Ambulatory [place] [facility] 0 [facility] ing:[facility] Repository N 06/17/2018 [id number] Ambulatory BMSBuilding:B [place] 0 [facility] Repository 06/09/2018 [id number] Ambulatory [place] [facility] 1 [facility] ing:[facility] Repository N 06/04/2018/ [id number] Emergency [place] Giss[place] 8 3 [facility] ing:ED Repository 05/26/2018/ [id number] Ambulatory BMSBuilding:B [place] 8 4 [facility] Repository 05/09/2018/ [id number] Jone Olivares Inpatient [place] 8 6 [facility]counter [facility] ing:PCURoom: Repository [id number]: 1 05/09/2018 [id number] Jone Olivares Ambulatory BMSBuilding:B [place] 0 [facility] Repository 05/09/2018/ [id number] Ambulatory BMSBuilding:W [place] 8 4 [facility] Repository 05/08/2018 [id number] Jone Olivares Ambulatory BMSBuilding:B [place] 9 [facility] Repository 05/08/2018 [id number] Jone Olivares Ambulatory BMSBuilding:W [place] 1 [facility] Repository 04/14/2018 [id number] [place] [facility] N 03/01/2018/ [id number] [place], Inpatient [place] 8 9 Ghas[place] Encounter [facility] ing:PCURoom: Repository [id number]: 1 03/01/2018 [id number] [place], Ambulatory BMSBuilding:B [place] 9 G[place].[facility] Repository 03/01/2018 [id number] [place], Ambulatory BMSBuilding:B [place] 2 [place].[facility] Repository 03/01/2018 [id number] [place], Ambulatory BMSBuilding:B [place] 2 [place] MS.[facility] Repository 03/01/2018 [id number] [place], Ambulatory BMSBuilding:B [place] 7 Ghasem [place].[facility] Repository 03/01/2018/ [id number] Ambulatory BMSBuilding:W [place] 8 1 [facility] Repository 03/01/2018/ [id number] Ambulatory BMSBuilding:W [place] 8 6 [facility] Repository 03/01/2018 [id number] Inpatient [place] 5 Encounter [facility] ing:ED Repository 03/01/2018/04/30 [id number] Ambulatory BMSBuilding:B [place] 8 7 [facility] Repository 01/21/2018 [id number] Ambulatory [place] 5 [facility] ing:[facility]S.[facility] Repository N 01/18/2018 [id number] Ambulatory [place] 9 [facility] ing:[facility] Repository N 01/15/2018 [id number] Ambulatory BMSBuilding:B [place] 8 [facility] Repository PAYERS PAYERS ENCOUNTER GUARANTOR PAYER SUBSCRIBER SOURCE 11/22/2018 N [place] Primary [place]UNK [place] Insurance:SELF PAY [address] Number: Effective [place] [facility] [place] Date:[place]-11-22 22624Szm: (HP) 11/15/2018 N [place] Primary NOT GIVENUNK [place] Insurance:SELF PAY [address] Number: Effective Repository [place] Date:2018-11-15 42432Med: (HP) 11/12/2018 N [place] Primary NOT [place]UNK [place] Insurance:SELF PAY [address] Number: [place] Date:2018-11-02 59055Uqh: (HP) 11/08/2018 N [place] Primary N [place] Insurance:MEDICARE STARLINDOB: [facility] HEALTHY [id number] PART A [facility] [id number] Valley Health System Number: Repository [place], [place] [id number]: (365) Date:2018-11-08 [phone] (HP) 11/08/2018 Secondary NOT GIVENUNK [place] Insurance:SELF PAY [facility] Number: Effective Repository Date:2018-11-08 11/01/2018 N [place] Primary N [place] Insurance:MEDICARE STARLINDOB: Community HEALTHY [id number] PART A [facility] [id number] Valley Health System Number: [place]ository [place] [id number]: (330) Date:2018-11-01 [phone] () 11/01/2018 Secondary NOT GIVENUNK [place] Insurance:SELF PAY [facility] Number: Effective Repository Date:2018-11-01 10/27/2018 N [place] Primary N [place] Insurance:MEDICARE STARLINDOB: Community HEALTHY [id number] PART A [facility] [id number] Valley Health System Number: [place] [id number]: (330) Date:2018-08-17 [phone] (HP) 10/27/2018 Secondary NOT GIVENUNK [place] Insurance:SELF PAY [facility] Number: Effective Repository Date:2018-10-02 10/25/2018 N [place] Primary NOT GIVENUNK [place] Insurance:SELF PAY [facility] HEALTHY [id number] [place] [address] Number: Effective Repository [facility] Date:2018-10-25 [id number]: (HP) 10/18/2018 N [place] Primary N [place] Insurance:MEDICARE STARLINDOB: Community HEALTHY [id number] PART A [facility] [id number] Valley Health System Number: Repository [place]DW[place] [id number]: (330) Date:2018-10-18 [phone] () 10/18/2018 Secondary N [place] Insurance:RURAL STARLINDOB: Community CARRIER BENEFIT [id number] [facility] Number: Repository [id number] Date:8027-67-02ZA CARA 74AnilELIZABETHGREGOR POLANCO [address]AL: 10/18/2018 Tertiary NOT GIVENUNK [place] Insurance:SELF PAY [facility] Number: Effective Repository Date:2018-10-18 10/13/2018 N [place] Primary N [place] Insurance:MEDICARE STARLINDOB: Community HEALTHY [id number] PART A [facility] [id number] Valley Health System Number: Repository [place] [id number]: (330) Date:2018-08-17 [phone] (HP) 10/13/2018 Secondary NOT GIVENUNK [place] Insurance:SELF PAY [facility] Number: Effective Repository Date:2018-10-13 10/11/2018 N [place] Primary NOT GIVENUNK [place] Insurance:SELF PAY [facility] HEALTHY [id number] [facility] Number: [place] Date:2018-10-11 [id number]: (HP) 10/04/2018 N [place] Primary NOT G[place]ENUNK [place] Insurance:SELF PAY [facility] HEALTHY [id number] [facility] Number: Effective [place] Date:2018-10-04 [id number]: (HP) 09/27/2018 N [place] Primary NOT GIVENUNK [place] Insurance:SELF PAY [facility] HEALTHY [id number] [place] [address] Number: Effective [place] Date:2018-09-27 03608Omn: (HP) 09/22/2018 N [place] Primary NOT GIVENUNK [place] Insurance:SELF PAY [facility] HEALTHY [id number] [facility] Number: Effective Repository [place] Date:2018-09-22 [id number]: (HP) 09/15/2018 N [place] Primary N [place] Insurance:MEDICARE STARLINDOB: Community HEALTHY [id number] PART A BPolicy [id number] Valley Health System Number: Repository [place] [id number]: (330) Date:2018-09-15 [phone] (HP) 09/15/2018 Secondary N [place] Insurance:AETNAPolic STARLINDOB: Community y Number: Effective [id number] Hospital Date:7712-74-66JC Repository [address] BRODERICK BUENO [address]WD: 09/15/2018 Tertiary N [place] Insurance:RURAL STARLINDOB: Community CARRIER BENEFIT [id number] [facility]aukes[facility] Number: Repository [id number] Date:0394-66-75HT [address] [place] [address]UF: 09/15/2018 Tertiary NOT GIVENUNK [place] Insurance:SELF PAY [facility]: Effective Repository Date:2018-09-15 09/15/2018 [place] Primary [place] Insurance:MEDICARE STARLINDOB: Community HEALTHY [id number] PART A [facility] [id number] Valley Health System Number: Repository [place]DM[place] [id number]: 330) Date:2018-09-155939 () 09/15/2018 Secondary [place]A [place] Insurance:RURAL STARLINDOB: Community CARRIER BENEFIT [id number] [facility]aukes[facility] Number: Repository [id number] Date:7321-69-43NJ [address] [place] [address]VB: 09/15/2018 Tertiary NOT GIVENUNK [place] Insurance:SELF PAY [facility] Number: Effective Repository Date:2018-09-15 09/15/2018 E[place] Primary [place] Insurance:MEDICARE STARLINDOB: Community HEALTHY [id number] PART A [facility] [id number] Valley Health System Number: [place] [id number]: (330) Date:2018-09-150523 () 09/15/2018 Secondary ELD[place]A [place] Insurance:RURAL STARLINDOB: Community CARRIER BENEFIT [id number] Waukes[facility] Number: Repository [id number] Date:5330-41-29[address] [place] [address]OQ: 09/15/2018 Tertiary NOT GIVENUNK [place] Insurance:SELF PAY [facility] Number: Effective Repository Date:2018-09-15 09/15/2018 N [place] Primary N [place] Insurance:MEDICARE STARLINDOB: Community HEALTHY [id number] PART A [facility] [id number] Valley Health System Number: [place] [id number]: (330) Date:2018-09-15 () 09/15/2018 Secondary N [place] Insurance:RURAL STARLINDOB: Community CARRIER BENEFIT [id number] PLANPolicy Number: Repository [id number] Date:5230-76-55[address] [place] [address]DA: 09/15/2018 Tertiary NOT GIVENUNK [place] Insurance:SELF PAY [facility] Number: Effective Repository Date:2018-09-15 09/15/2018 N [place] Primary N [place] Insurance:MEDICARE STARLINDOB: Community HEALTHY [id number] PART A [facility] [id number] Valley Health System Number: Repository [place] [id number]: (330) Date:2018-09-15 () 09/15/2018 Secondary N [place] Insurance:RURAL STARLINDOB: Community CARRIER BENEFIT [id number] PLANPolicy Number: Repository [id number] Date:9709-92-74CG [address] [place] [address]IZ: 09/15/2018 Tertiary NOT GIVENUNK [place] Insurance:SELF PAY [facility] Number: Effective Repository Date:2018-09-15 09/15/2018 N [place] Primary N [place] Insurance:MEDICARE STARLINDOB: Community HEALTHY [id number] PART A [facility] [id number] Valley Health System Number: Repository [place] [id number]: (330) Date:2018-09-15 () 09/15/2018 Secondary N [place] Insurance:RURAL STARLINDOB: Community CARRIER BENEFIT [id number] Hospital PLANPolicy Number: Repository [id number] Date:1002-32-85DM [facility] [address] [place] [address]BD: 09/15/2018 Tertiary NOT GIVENUNK [place] Insurance:SELF PAY [facility] Number: Effective Repository Date:2018-09-15 09/15/2018 N [place] Primary N [place] Insurance:MEDICARE STARLINDOB: Community HEALTHY [id number] PART A [facility] [id number] Valley Health System Number: Repository [address] [address] CENT[facility]LEY[facility] [id number]: 330) Date:2018-09-15 () 09/15/2018 Secondary N [place] Insurance:RURAL STARLINDOB: Community CARRIER BENEFIT [id number] PLANPolicy Number: Repository [id number] Date:9636-47-18DI [facility] [address] [place] [address]IP: 09/15/2018 Tertiary NOT GIVENUNK [place] Insurance:SELF PAY [facility] Number: Effective Repository Date:2018-09-15 09/15/2018 N [place] Primary N [place] Insurance:MEDICARE STARLINDOB: Community HEALTHY [id number] PART A [facility] [id number] Valley Health System Number: Rep[place] [id number]: (330) Date:2018-09-1527 () 09/15/2018 Secondary N [place] Insurance:RURAL STARLINDOB: Community CARRIER BENEFIT [id number] [place] [address] PLANPolicy Number: Repository [id number] Date:9967-80-49YI [address] [place] [address]DH: 09/15/2018 Tertiary NOT GIVENUNK [place] Insurance:SELF PAY Community [facility] Number: Effective Repository Date:2018-09-15 09/15/2018 N [place] Primary N [place] Insurance:MEDICARE STARLINDOB: Community HEALTHY [id number] PART A [facility] [id number] Valley Health System Number: Repository [place] [id number]: (330) Date:2018-09-1517 () 09/15/2018 Secondary N [place] Insurance:RURAL STARLINDOB: Community CARRIER BENEFIT [id number] Hospital PLANPolicy Number: Repository [id number] Date:1096-45-33XP [address] [address]NC: 09/15/2018 Tertiary NOT [place]IV[place]UNK [place] Insurance:SELF PAY [facility] Number: Effective Repository Date:2018-09-15 09/15/2018 N [place] Primary N [place] Insurance:MEDICARE STARLINDOB: Community HEALTHY [id number] PART A [facility] [id number] Valley Health System Number: Repository [place] [id number]: (330) Date:2018-09-1520 () 09/15/2018 Secondary N [place] Insurance:RURAL STARLINDOB: Community CARRIER BENEFIT [id number] Hospital PLANPolicy Number: Repository [id number] Date:5441-49-01II [facility] [address] [place] [address]BC: 09/15/2018 Tertiary NOT GIVENUNK [place] Insurance:SELF PAY Community [facility] Number: Effective Repository Date:2018-09-15 09/15/2018 N [place] Primary N [place] Insurance:MEDICARE STARLINDOB: Community HEALTHY [id number] PART A [facility] [id number] Valley Health System Number: Repository [place] [id number]: (330) Date:2018-09-153079 () 09/15/2018 Secondary N [place] Insurance:RURAL STARLINDOB: Community CARRIER BENEFIT [id number] Hospital PLANPolicy Number: Repository [id number] Date:9364-94-87WH [address] [address]XD: 09/15/2018 Tertiary NOT GIVENUNK [place] Insurance:SELF PAY [facility] Number: Effective Repository Date:2018-09-15 09/15/2018 N [place] Primary NOT GIVENUNK [place] Insurance:SELF [facility]Y [facility] HEALTHY [id number] [place] [address] Number: Effective Repository [place] Date:2018-09-15 80011Duf: (HP) 09/13/2018 N [place] Primary NOT GIVENUNK [place] Insurance:SELF PAY [facility] HEALTHY [id number] [place] [address] Number: Effective Repository [place] Date:2018-09-13 65590Rcq: (HP) 09/10/2018 N [place] Primary NOT GIVENUNK [place] Insurance:SELF PAY [facility] HEALTHY [id number] [place] [address] Number: Effective Repository [place] Date:2018-09-10 [id number]: (HP) 09/08/2018 E[place] Primary [place]A [place] Insurance:MEDICARE STARLINDOB: Community HEALTHY [id number] PART A BPolicy [id number] Valley Health System Number: Repository [place] [id number]: (493) Date:2018-08-17 [phone] (HP) 09/08/2018 Secondary [place]A [place] Insurance:RURAL STARLINDOB: Community CARRIER BENEFIT [id number] [facility] Number: Repository [id number] Date:1039-67-45OL [address] [address]MU: 09/08/2018 Tertiary NOT GIVENUNK [place] Insurance:SELF PAY [facility] Number: Effective Repository Date:2018-09-02 09/08/2018 N [place] Primary N [place] Insurance:MEDICARE STARLINDOB: Community HEALTHY [id number] PART A [facility] [id number] Valley Health System Number: Repository [place] [id number]: 330) Date:2018-08-17 [phone] (HP) 09/08/2018 Secondary N [place] Insurance:RURAL STARLINDOB: Community CARRIER BENEFIT [id number] [facility]au[facility] Number: Repository [id number] Date:8371-00-92JV [address] DIAZ [address]DQ: 09/08/2018 Tertiary NOT GIVENUNK [place] Insurance:SELF PAY [facility] Number: Effective Repository Date:2018-09-08 09/08/2018 N [place] Primary NOT GIVENUNK [place] Insurance:SELF PAY [facility] HEALTHY [id number] [facility] Number: Effective Repository [facility] [place] Date:2018-09-08 24711Sqc: (HP) 09/06/2018 N [place] Primary NOT GIVENUNK [place] Insurance:SELF PAY Community HEALTHY [id number] [facility] Number: Effective [place] Date:2018-09-06 34949Riq: (HP) 09/03/2018 N [place] Primary [place]IVEN[place]K [place] Insurance:SELF PAY [facility] HEALTHY [id number] [facility] Number: Effective [place] Date:2018-09-03 12539Udt: (HP) 08/31/2018 [place] Primary NOT GIVENUNK [place] Insurance:SELF PAY Community HEALTHY [id number] [facility] Number: [place] Date:2018-08-31 96249Gti: (HP) 08/30/2018 [place] Primary [place] Insurance:MEDICARE STARLINDOB: Community HEALTHY [id number] PART A [facility] [id number] Valley Health [facility] Number: [place] [id number]: (330) Date:2018-08-20 [phone] () 08/30/2018 Secondary [place] Insurance:RURAL STARLINDOB: Community CARRIER BENEFIT [id number] Number: Repository [id number] Date:6364-30-56HT [address] [address]TT: 08/30/2018 Tertiary [place] GIVENUNK [place] Insurance:SELF [facility]Y [facility] Number: Effective Repository Date:2018-08-20 08/30/2018 [place] Primary NOT GIVENUNK [place] Insurance:SELF PAY [facility] HEALTHY [id number] [place] [address] Number: Effective Repository [facility] Date:2018-08-30 66480Cnd: () 08/28/2018 [place] Primary NOT GIVENUNK [place] Insurance:SELF PAY [facility] HEALTHY [id number] [place] [address] Number: Effective [facility] Date:2018-08-28 66212Chs: () 08/25/2018 E[place] Primary [place] Insurance:MEDICARE STARLINDOB: Community HEALTHY [id number] PART A [facility] [id number] Valley Health [facility] Number: [place] [id number]: 330) Date:2018-08-17 [phone] () 08/25/2018 Secondary [place] Insurance:RURAL STARLINDOB: Community CARRIER BENEFIT [id number] [facility]au[facility] Number: Repository [id number] Date:5452-88-03TN [address] [address]JB: 08/25/2018 Tertiary NOT GIVENUNK [place] Insurance:SELF PAY [facility] Number: Effective Repository Date:2018-08-17 08/25/2018 E[place] Primary [place] Insurance:MEDICARE STARLINDOB: Community HEALTHY [id number] PART A [facility] [id number] Valley Health System Number: [place] [id number]: (330) Date:2018-08-17 () 08/25/2018 Secondary E[place] Insurance:RURAL STARLINDOB: Community CARRIER BENEFIT [id number] Hospital PLANPolicy Number: Repository [id number] Date:2489-00-54J[address] [place] [address]BU: 08/25/2018 Tertiary NOT GIVENUNK [place] Insurance:SELF PAY [facility] Number: Effective Repository Date:2018-08-25 08/24/2018 [place] Primary [place] Insurance:MEDICARE STARLINDOB: Community HEALTHY [id number] PART A [facility] [id number] Valley Health System Number: [place] [id number]: 330) Date:2018-08-10 () 08/24/2018 Secondary [place] Insurance:RURAL STARLINDOB: Community CARRIER BENEFIT [id number] St. [facility] Physicians [facility] CenterPolicy Number: Repository [id number] Date:1533-45-90[address] [place] [address]KA: 08/24/2018 Tertiary NOT GIVENUNK [place] Insurance:SELF PAY [facility] Number: Effective Repository Date:2018-08-20 08/23/2018 [place] Primary NOT GIVENUNK [place] Insurance:SELF PAY Community HEALTHY [id number] [facility] Number: Effective Repository [place] Date:2018-08-23 18435Eht: () 08/20/2018 [place] Primary [place] Insurance:MEDICARE STAR[place]INDOB: Community HEALTHY [id number] PART A [facility] [id number] Valley Health System Number: Repository [place] [id number]: (330) Date:2018-08-10 [phone] () 08/20/2018 Secondary [place] Insurance:RURAL STARLINDOB: Community CARRIER BENEFIT [id number] [facility] Number: Repository [id number] Date:9910-61-10CQ [address] [address]XR: 08/20/2018 Tertiary NOT GIVENUNK [place] Insurance:SELF PAY [facility] Number: Effective Repository Date:2018-08-10 08/16/2018 [place] Primary NOT [place]IV[place]K [place] Insurance:SELF PAY [facility] HEALTHY [id number] [facility] Number: Effective [place] Date:2018-08-16 09385Rhk: () 08/11/2018 [place] Primary NOT GIVENUNK [place] Insurance:SELF PAY [facility] HEALTHY [id number] [place] [address] Number: Effective [place] Date:2018-08-11 40489Hul: (HP) 08/09/2018 [place] Primary NOT GIVENUNK [place] Insurance:SELF PAY [facility] HEALTHY [id number] [place] [address] Number: Effective [place] Date:2018-08-09 55658Akl: (HP) 07/20/2018 [place] Primary [place] Insurance:MEDICARE STARLINDOB: [facility] HEALTHY [id number] PART A BPolicy [id number] Valley Health System Number: [place] [id number]: (396) Date:2018-07-20 [phone] (HP) 07/20/2018 Secondary [place] Insurance:RURAL [place]AR[place]OB: Community CARRIER BENEFIT [id number] [facility]au[facility] Number: Repository [id number] Date:1174-49-63NX [address] [address]SU: 07/20/2018 Tertiary NOT GIVENUNK [place] Insurance:SELF PAY [facility] Number: Effective Repository Date:2018-07-20 07/20/2018 [place] Primary [place] Insurance:MEDICARE STAR[place]OB: Community HEALTHY [id number] PART A [facility] [id number] Valley Health System Number: [place] [id number]: (330) Date:2018-07-20 () 07/20/2018 Secondary [place] Insurance:RURAL STARLINDOB: Community CARRIER BENEFIT [id number] Hospital PLANPolicy Number: Repository [id number] Date:4299-10-48UC [address] [place] [address]DM: 07/20/2018 Tertiary NOT [place]IVENUNK [place] Insurance:SELF PAY [facility] Number: Effective Repository Date:2018-07-20 07/20/2018 ELD[place] Primary [place] Insurance:MEDICARE STARLINDOB: Community HEALTHY [id number] PART A [facility] [id number] Valley Health System Number: [place] [id number]: (330) Date:2018-07-20 () 07/20/2018 Secondary [place] Insurance:RURAL STARLINDOB: Community CARRIER BENEFIT [id number] General Hospitalic Number: Repository [id number] Date:9742-38-23VN [address] [place] [address]TJ: 07/20/2018 Tertiary NOT GIVENUNK [place] Insurance:SELF PAY [facility] Number: Effective Repository Date:2018-07-20 07/20/2018 E[place] Primary [place] Insurance:MEDICARE STARLINDOB: Community HEALTHY [id number] PART A [facility] [id number] Valley Health System Number: [place] [id number]: (330) Date:2018-07-20 () 07/20/2018 Secondary [place] Insurance:RURAL STARLINDOB: Community CARRIER BENEFIT [id number] Hospital PLANPolicy Number: Repository [id number] Date:3254-19-57IW [address] [address]VA: 07/20/2018 Tertiary NOT GIVENUNK [place] Insurance:SELF PAY Community [facility] Number: Effective Repository Date:2018-07-20 07/20/2018 ELD[place] Primary [place] Insurance:MEDICARE STARLINDOB: Community HEALTHY [id number] PART A [facility] [id number] Number: Repository [place] [id number]: (330) Date:2018-07-20 () 07/20/2018 Secondary [place] Insurance:RURAL STARLINDOB: Community CARRIER BENEFIT [id number] [place] [address] PLANPolicy Number: Repository [id number] Date:3752-47-68PQ [facility] [address] [address]FE: 07/20/2018 Tertiary NOT GIVENUNK [place] Insurance:SELF PAY [facility] Number: Effective Repository Date:2018-07-20 07/20/2018 ELD[place] Primary [place] Insurance:MEDICARE STARLINDOB: Community HEALTHY [id number] PART A [facility] [id number] Number: [place] [id number]: 330) Date:2018-07-20 () 07/20/2018 Secondary ELD[place]A [place] Insurance:RURAL STARLINDOB: Community CARRIER BENEFIT [address] [place] [address] PLANPolicy Number: Repository [id number] Date:8304-85-13XK [address] [address]LZ: 07/20/2018 Tertiary NOT GIVENUNK [place] Insurance:SELF PAY [facility] Number: Effective Repository Date:2018-07-20 07/20/2018 [place] Primary [place] Insurance:MEDICARE STARLINDOB: Community HEALTHY [id number] PART A [facility] [id number] Number: Repository [place]GIS[place] [id number]: (330) Date:2018-07-20 () 07/20/2018 Secondary [place] Insurance:RURAL STARLINDOB: Community CARRIER BENEFIT [address] [place] [address] PLANPolicy Number: Repository [id number] Date:9695-57-78PV [address] [place] [address]TG: 07/20/2018 Tertiary NOT GIVENUNK [place] Insurance:SELF PAY [facility] Number: Effective Repository Date:2018-07-20 07/20/2018 ELD[place] Primary [place] Insurance:MEDICARE STARLINDOB: Community HEALTHY [id number] PART A [facility] [id number] Number: [place] [id number] [address]Oyf: (330) Date:2018-07-20 () 07/20/2018 Secondary [place] Insurance:RURAL STARL[place]OB: Community CARRIER BENEFIT [id number] [place] [address] PLANPolicy Number: Repository [id number] Date:3707-09-50TW [address] [place] [address]VT: 07/20/2018 Tertiary NOT [place]IV[place]UNK [place] Insurance:SELF PAY [facility] Number: Effective Repository Date:2018-07-20 07/20/2018 ELD[place] Primary [place] Insurance:MEDICARE STARLINDOB: Community HEALTHY [id number] PART A [facility] [id number] Number: [place] [id number]: (330) Date:2018-07-20 () 07/20/2018 Secondary E[place] Insurance:RURAL STARLINDOB: Community CARRIER BENEFIT [id number] PLANPolicy Number: Repository [id number] Date:9601-67-84UJ [address] [address]AB: 07/20/2018 Tertiary NOT GIVENUNK [place] Insurance:SELF PAY Community [facility] Number: Effective Repository Date:2018-07-20 07/20/2018 E[place] Primary [place] Insurance:MEDICARE STARLINDOB: Community HEALTHY [id number] PART A [facility] [id number] Valley Health System Number: [place] [id number]: (330) Date:2018-07-20 () 07/20/2018 Secondary [place] Insurance:RURAL STARLINDOB: Community CARRIER BENEFIT [id number] Hospital PLANPolicy Number: Repository [id number] Date:3520-98-68RZ [address] [place] [address]PB: 07/20/2018 Tertiary NOT [place]IV[place]K [place] Insurance:SELF PAY [facility] Number: Effective Repository Date:2018-07-20 07/20/2018 [place] Primary [place] Insurance:MEDICARE STARLINDOB: Community HEALTHY [id number] PART A [facility] [id number] Valley Health System Number: [place] [id number] [address]Arv: (330) Date:2018-07-20 () 07/20/2018 Secondary [place] Insurance:RURAL STARLINDOB: Community CARRIER BENEFIT [id number] Hospital PLANPolicy Number: Repository [id number] Date:4684-46-49TL [address] [address]ZL: 07/20/2018 Tertiary NOT [place]IV[place]K [place] Insurance:SELF PAY [facility] Number: Effective Repository Date:2018-07-20 07/20/2018 [place] Primary [place] Insurance:MEDICARE STARLINDOB: Community HEALTHY [id number] PART A [facility] [id number] Valley Health System Number: Repository [place] [id number] [phone]: (330) Date:2018-07-20 () 07/20/2018 Secondary [place] Insurance:RURAL STARLINDOB: Community CARRIER BENEFIT [id number] Hospital PLANPolicy Number: Repository [id number] Date:1773-06-03KE [facility] [address] [place] [address]UL: 07/20/2018 Tertiary NOT [place]IV[place]K [place] Insurance:SELF PAY Community [facility] Number: Effective Repository Date:2018-07-20 07/20/2018 [place] Primary [place] Insurance:MEDICARE STARLINDOB: Community HEALTHY [id number] PART A [facility] [id number] Valley Health System Number: Repository [address] [address] MEDICAL CENTERK[facility]LEYr[place] [id number] [id number]: 330) Date:2018-07-2092 () 07/20/2018 Secondary [place] Insurance:RURAL STARLINDOB: Community CARRIER BENEFIT [id number] St. [facility] Physicians Medical CenterPolicy Number: Repository [id number] Date:1894-88-89BH [facility] [address] [address]TZ: 07/20/2018 Tertiary NOT [place]IV[place]K [place] Insurance:SELF PAY [facility] Number: Effective Repository Date:2018-07-20 07/20/2018 [place] Primary [place] Insurance:MEDICARE STARLINDOB: Community HEALTHY [id number] PART A [facility] [id number] Valley Health System Number: Repository RDJHOANKEELEYr[place], [place] [id number] [address]Wan: (330) Date:2018-07-20 84805 () 07/20/2018 Secondary [place] Insurance:RURAL STARLINDOB: Community CARRIER BENEFIT [id number] Hospital PLANPolic Number: Repository [id number] Date:8329-13-92BE [facility] [address] [address]WE: 07/20/2018 Tertiary NOT GIVENUNK [place] Insurance:SELF PAY [facility] Number: Effective Repository Date:2018-07-20 07/20/2018 E[place] Primary [place] Insurance:MEDICARE STARLINDOB: Community HEALTHY [id number] PART A [facility] [id number] Valley Health System Number: Repository [place] [id number] [phone]: (330) Date:2018-07-20 () 07/20/2018 Secondary [place] Insurance:RURAL STARLINDOB: Community CARRIER BENEFIT [id number] Hospital PLANPolicy Number: Repository [id number] Date:4372-63-83NN [address] [place] [address]NL: 07/20/2018 Tertiary NOT [place]IV[place]UNK [place] Insurance:SELF PAY [facility] Number: Effective Repository Date:2018-07-20 07/20/2018 [place] Primary [place] Insurance:MEDICARE STARLINDOB: Community HEALTHY [id number] PART A [facility] [id number] Valley Health System Number: [place] [id number] [address]Aoz: (330) Date:2018-07-2071 () 07/20/2018 Secondary [place] Insurance:RURAL STARLINDOB: Community CARRIER BENEFIT [id number] General Hospitalic Number: Repository [id number] Date:4408-87-08DF [address] [place] [address]HS: 07/20/2018 Tertiary NOT [place]UNK [place] Insurance:SELF PAY [facility] Number: Effective Repository Date:2018-07-20 07/20/2018 [place] Primary [place] Insurance:MEDICARE STARLINDOB: Community HEALTHY [id number] PART A [facility] [id number] Valley Health System Number: Repository [place] [id number]: (330) Date:2018-07-20 () 07/20/2018 Secondary [place] Insurance:RURAL STARLINDOB: Community CARRIER BENEFIT [id number] Hospital PLANPolic Number: Repository [id number] Date:6921-88-38HV [address] [address]HP: 07/20/2018 Tertiary NOT [place]IV[place]UNK [place] Insurance:SELF PAY [facility] Number: Effective Repository Date:2018-07-20 07/20/2018 E[place] Primary [place] Insurance:MEDICARE STARLINDOB: Community HEALTHY [id number] PART A [facility] [id number] Number: [place]ository [place] [id number]: (330) Date:2018-07-2065 () 07/20/2018 Secondary [place] Insurance:RURAL STARLINDOB: Community CARRIER BENEFIT [id number] [place] [address] Number: Repository [id number] Date:4526-89-15ZJ [facility] [address] [address]DF: 07/20/2018 Tertiary NOT GIVENUNK [place] Insurance:SELF PAY [facility] Number: Effective Repository Date:2018-07-20 07/20/2018 ELD[place] Primary [place] Insurance:MEDICARE STARLINDOB: Community HEALTHY [id number] PART A [facility] [id number] [place] [address] Number: [place]ository [place] [id number] [phone]: 330) Date:2018-07-2035 () 07/20/2018 Secondary [place] Insurance:RURAL STARLINDOB: Community CARRIER BENEFIT [address] [place] [address] Number: Repository [id number] Date:7904-88-61AD [address] [address]DO: 07/20/2018 Tertiary NOT GIVENUNK [place] Insurance:SELF PAY [facility] Number: Effective Repository Date:2018-07-20 07/20/2018 ELDORA Primary [place] Insurance:MEDICARE STARLINDOB: Community HEALTHY [id number] PART A [address] Number: Repository [place] [id number]: (330) Date:2018-07-20 () 07/20/2018 Secondary E[place] Insurance:RURAL STARLINDOB: Community CARRIER BENEFIT [id number] PLANPolicy Number: Repository [id number] Date:1960-01-50XG [address] [place] [address]NT: 07/20/2018 Tertiary NOT GIVENUNK [place] Insurance:SELF PAY [facility] Number: Effective Repository Date:2018-07-20 07/20/2018 [place] Primary [place] Insurance:MEDICARE STARLINDOB: Community HEALTHY [id number] PART A [facility] [id number] Valley Health System Number: [place]ository [place] [id number] [address]Esh: (330) Date:2018-07-20 () 07/20/2018 Secondary [place] Insurance:RURAL STARLINDOB: Community CARRIER BENEFIT [id number] Hospital PLANPolicy Number: Repository [id number] Date:4097-99-79CZ [address] [place] [address]FL: 07/20/2018 Tertiary NOT [place]IVENUNK [place] Insurance:SELF PAY [facility] Number: Effective Repository Date:2018-07-20 07/20/2018 ELDORA Primary [place] Insurance:MEDICARE STARLINDOB: Community HEALTHY [id number] PART A [facility] [id number] Valley Health System Number: Repository [place] [id number] [phone]: (330) Date:2018-07-20 () 07/20/2018 Secondary [place] Insurance:RURAL STARLINDOB: Community CARRIER BENEFIT [id number] Hospital PLANPolicy Number: Repository [id number] Date:3651-88-76AV [address] [place] [address]MW: 07/20/2018 Tertiary NOT [place]K [place] Insurance:SELF PAY Community [facility] Number: Effective Repository Date:2018-07-20 07/20/2018 ELDOR[place] Primary [place] Insurance:MEDICARE STARLINDOB: Community HEALTHY [id number] PART A [facility] [id number] Valley Health System Number: Repository [place] [id number] [address]Rvt: (330) Date:2018-07-20 () 07/20/2018 Secondary [place] Insurance:RURAL STARLINDOB: Community CARRIER BENEFIT [id number] Hospital PLANPolicy Number: Repository [id number] Date:2905-65-81BS [facility] [address] [address]JP: 07/20/2018 Tertiary NOT [place]K [place] Insurance:SELF PAY Community [facility] Number: Effective Repository Date:2018-07-20 07/20/2018 ELDORA Primary [place] Insurance:MEDICARE STARLINDOB: Community HEALTHY [id number] PART A [facility] [id number] Valley Health System Number: Repository [place] [id number] [phone]: (330) Date:2018-07-2061 () 07/20/2018 Secondary [place] Insurance:RURAL STARLINDOB: Community CARRIER BENEFIT [id number] Hospital PLANPolicy Number: Repository [id number] Date:2242-56-61QB [address] [address]AZ: 07/20/2018 Tertiary NOT GIVENUNK [place] Insurance:SELF PAY Community [facility] Number: Effective Repository Date:2018-07-20 07/20/2018 ELDOR[place] Primary [place] Insurance:MEDICARE STARLINDOB: Community HEALTHY [id number] PART A [facility] [id number] Valley Health System Number: Repository [place] [id number] [address]Kuv: (330) Date:2018-07-20 () 07/20/2018 Secondary [place] Insurance:RURAL STARLINDOB: Community CARRIER BENEFIT [id number] Hospital PLANPolicy Number: Repository [id number] Date:8128-74-34OL [facility] [address] [address]ZX: 07/20/2018 Tertiary NOT [place] Insurance:SELF PAY [place] [facility] Number: Effective Repository Date:2018-07-20 07/20/2018 ELDORA Primary [place] Insurance:MEDICARE STARLINDOB: Community HEALTHY [id number] PART A [facility] [id number] Valley Health System Number: Rep[facility] [place] [id number]: 330) Date:2018-07-2092 () 07/20/2018 Secondary [place] Insurance:RURAL STARLINDOB: Community CARRIER BENEFIT [id number] Hospital PLANPolicy Number: Repository [id number] Date:3045-51-23AT [facility] [address] [place] [address]IG: 07/20/2018 Tertiary NOT GIVENUNK [place] Insurance:SELF [facility]Y [facility] Number: Effective Repository Date:2018-07-20 07/20/2018 ELDORA Primary [place] Insurance:MEDICARE STARLINDOB: Community HEALTHY [id number] PART A [facility] [id number] Valley Health System Number: Repository [place] [id number] [address]Mhj: (330) Date:2018-07-20 () 07/20/2018 Secondary [place]A [place] Insurance:RURAL STARLINDOB: Community CARRIER BENEFIT [id number] Hospital PLANPolicy Number: Repository [id number] Date:6743-64-75DE [facility] [address] [place] [address]RU: 07/20/2018 Tertiary NOT [place]K [place] Insurance:SELF PAY [facility] Number: Effective Repository Date:2018-07-20 07/20/2018 ELDORA Primary [place] Insurance:MEDICARE STARLINDOB: Community HEALTHY [id number] PART A [id number] Number: [place]ository [place] [id number]: (330) Date:2018-07-20 () 07/20/2018 Secondary ELDORA [place] Insurance:RURAL STARLINDOB: Community CARRIER BENEFIT [id number] Hospital PLANPolicy Number: Repository [id number] Date:[id number] [place] [address]RN: 07/20/2018 Tertiary NOT GIVENUNK [place] Insurance[facility] [facility]: Effective Repository Date:2018-07-20 07/20/2018 [place] Primary [place] Insurance:MEDICARE STARLINDOB: Community HEALTHY [id number] PART A [facility] [id number] Number: [place] [id number]: (330) Date:2018-07-20 () 07/20/2018 Secondary [place] Insurance:RURAL STARLINDOB: Community CARRIER BENEFIT [id number] Hospital PLANPolicy Number: Repository [id number] Date:0299-51-57PJ [address] [place] [address]RQ: 07/20/2018 Tertiary NOT [place]IV[place]K [place] Insurance:SELF PAY [facility] Number: Effective Repository Date:2018-07-20 07/20/2018 ELD[place] Primary [place] Insurance:MEDICARE STARLINDOB: Community HEALTHY [id number] PART A [facility] [id number] Valley Health System Number: Repository [place]DW[place] [id number]: (330) Date:2018-07-20 () 07/20/2018 Secondary [place] Insurance:RURAL STARLINDOB: Community CARRIER BENEFIT [id number] Hospital PLANPolic Number: Repository [id number] Date:0533-52-90ZE [address] [address]LM: 07/20/2018 Tertiary NOT GIVENUNK [place] Insurance:SELF PAY Community [facility] Number: Effective Repository Date:2018-07-20 07/20/2018 ELD[place] Primary [place] Insurance:MEDICARE STARLINDOB: Community HEALTHY [id number] PART A [facility] [id number] Valley Health System Number: [place] [id number]: (330) Date:2018-07-20 [id number] () 07/20/2018 Secondary [place] Insurance:RURAL STARLINDOB: Community CARRIER BENEFIT [id number] Number: Repository [id number] Date:3153-49-76XB [facility] [address] [place] [address]KS: 07/20/2018 Tertiary NOT GIVENUNK [place] Insurance:SELF PAY [facility] Number: Effective Repository Date:2018-07-20 07/20/2018 E[place] Primary [place] Insurance:MEDICARE STARLINDOB: Community HEALTHY [id number] PART A [facility] [id number] Number: [place]ository [place] [id number]: (330) Date:2018-07-20 () 07/20/2018 Secondary [place] Insurance:RURAL STARLINDOB: Community CARRIER BENEFIT [id number] Number: Repository [id number] Date:9512-00-17QB [address] [address]QD: 07/20/2018 Tertiary NOT GIVENUNK [place] Insurance:SELF PAY [facility] Number: Effective Repository Date:2018-07-20 07/20/2018 [place] Primary [place] Insurance:MEDICARE STARLINDOB: Community HEALTHY [id number] PART A [facility] [id number] Number: [place]ository [place] [id number]: (330) Date:2018-07-20 () 07/20/2018 Secondary [place] Insurance:RURAL STARLINDOB: Community CARRIER BENEFIT [id number] PLANPolicy Number: Repository [id number] Date:5909-09-43QH [address] [address]AK: 07/20/2018 Tertiary NOT GIVENUNK [place] Insurance:SELF PAY [facility] Number: Effective Repository Date:2018-07-20 07/20/2018 [place] Primary [place] Insurance:MEDICARE STARLINDOB: Community HEALTHY [id number] PART A [facility] [id number] Number: [place] [id number]: (330) Date:2018-07-20 () 07/20/2018 Secondary [place] Insurance:RURAL STARLINDOB: Community CARRIER BENEFIT [id number] [place], [place] [address]Policy Number: Repository [id number] Date:0036-13-89KO [address] [place] [address]JS: 07/20/2018 Tertiary NOT GIVENUNK [place] Insurance:SELF PAY [facility] Number: Effective Repository Date:2018-07-20 07/20/2018 E[place] Primary [place] Insurance:MEDICARE STARLINDOB: Community HEALTHY [id number] PART A [facility] [id number] Number: Repository [place], [place] [id number]: (330) Date:2018-07-20 () 07/20/2018 Secondary [place] Insurance:RURAL STARLINDOB: Community CARRIER BENEFIT [id number] PLANPolic Number: Repository [id number] Date:2926-60-33IW [address] [place] [address]SK: 07/20/2018 Tertiary NOT GIVENUNK [place] Insurance:SELF PAY Community [facility] Number: Effective Repository Date:2018-07-20 07/20/2018 E[place] Primary [place] Insurance:MEDICARE STARLINDOB: Community HEALTHY [id number] PART A [facility] [id number] Valley Health System Number: Repository [place] [id number]: (330) Date:2018-07-20 () 07/20/2018 Secondary [place] Insurance:RURAL STARLINDOB: Community CARRIER BENEFIT [id number] Hospital PLANPolicy Number: Repository [id number] Date:8452-47-81YG [address] [place] [address]KD: 07/20/2018 Tertiary NOT [place]K [place] Insurance:SELF PAY [facility] Number: Effective Repository Date:2018-07-20 07/20/2018 [place] Primary [place] Insurance:MEDICARE STARLINDOB: Community HEALTHY [id number] PART A [facility] [id number] Valley Health System Number: [place] [id number]: (330) Date:2018-07-20 () 07/20/2018 Secondary [place] Insurance:RURAL STARLINDOB: Community CARRIER BENEFIT [id number] PLANPolic Number: Repository [id number] Date:4818-58-06GC [address] [place] [address]PN: 07/20/2018 Tertiary NOT GIVENUNK [place] Insurance:SELF PAY [facility] Number: Effective Repository Date:2018-07-20 07/20/2018 [place] Primary [place] Insurance:MEDICARE STARLINDOB: Community HEALTHY [id number] PART A [facility] [id number] Valley Health System Number: Repository [place] [id number]: (330) Date:2018-07-20 () 07/20/2018 Secondary [place] Insurance:RURAL STARLINDOB: Community CARRIER BENEFIT [id number] Hospital PLANPolicy Number: Repository [id number] Date:2160-12-42DX [address] [address]UO: 07/20/2018 Tertiary NOT GIVENUNK [place] Insurance:SELF PAY Community [facility] Number: Effective Repository Date:2018-07-20 07/20/2018 E[place] Primary [place] Insurance:MEDICARE STARLINDOB: Community HEALTHY [id number] PART A [facility] [id number] Valley Health System Number: [place] RDMIRNA [place] [id number]: 330) Date:2018-07-2080 () 07/20/2018 Secondary [place] Insurance:RURAL STARLINDOB: Community CARRIER BENEFIT [id number] Hospital PLANPolicy Number: Repository [id number] Date:1281-56-27XZ [facility] [address] [address]JV: 07/20/2018 Tertiary NOT [place]IV[place]K [place] Insurance:SELF PAY Community [facility] Number: Effective Repository Date:2018-07-20 07/20/2018 E[place] Primary [place] Insurance:MEDICARE STARLINDOB: Community HEALTHY [id number] PART A [facility] [id number] Valley Health System Number: Repository [place] [id number]: (330) Date:2018-07-20 () 07/20/2018 Secondary [place] Insurance:RURAL STARLINDOB: Community CARRIER BENEFIT [id number] Hospital PLANPolicy Number: Repository [id number] Date:3843-11-03QO [address] [address]ZB: 07/20/2018 Tertiary NOT [place] Insurance:SELF PAY Community [facility] Number: Effective Repository Date:2018-07-20 07/20/2018 [place] Primary [place] Insurance:MEDICARE STARLINDOB: Community HEALTHY [id number] PART A [facility] [id number] Valley Health System Number: [place] [id number]: (330) Date:2018-07-20 () 07/20/2018 Secondary [place] Insurance:RURAL STARLINDOB: Community CARRIER BENEFIT [id number] Hospital PLANPolicy Number: Repository [id number] Date:9367-95-16[address] [place] [address]GK: 07/20/2018 Tertiary NOT [place] Insurance:SELF PAY [facility] Number: Effective Repository Date:2018-07-20 07/20/2018 [place] Primary [place] Insurance:MEDICARE STARLINDOB: Community HEALTHY [id number] PART A [facility] [id number] Valley Health System Number: Repository [place] [id number]: (330) Date:2018-07-20 () 07/20/2018 Secondary [place] Insurance:RURAL STARLINDOB: Community CARRIER BENEFIT [id number] St. Vincent Physicians Medical CenterPolicy Number: Repository [id number] Date:8816-79-57PZ [address] [place] [address]ZO: 07/20/2018 Tertiary NOT GIVENUNK [place] Insurance:SELF PAY [facility] Number: Effective Repository Date:2018-07-20 07/20/2018 [place] Primary [place] Insurance:MEDICARE STARLINDOB: Community HEALTHY [id number] PART A [facility] [id number] Valley Health System Number: Repository [place] [id number] [address]Bvb: (330) Date:2018-07-20 () 07/20/2018 Secondary [place] Insurance:RURAL STARLINDOB: Community CARRIER BENEFIT [id number] Hospital PLANPolic Number: Repository [id number] Date:3100-36-93AM [address] [address]ZF: 07/20/2018 Tertiary NOT [place] Insurance:SELF PAY [facility] Number: Effective Repository Date:2018-07-20 07/20/2018 [place] Primary [place] Insurance:MEDICARE STARLINDOB: Community HEALTHY [id number] PART A [facility] [id number] Valley Health System Number: [place] [id number]: (330) Date:2018-07-20 [phone] () 07/20/2018 Secondary [place] Insurance:RURAL STARLINDOB: Community CARRIER BENEFIT [id number] Number: Repository [id number] Date:0252-53-74NB [facility] [address] [address]OT: 07/20/2018 Tertiary NOT [place] Insurance:SELF PAY [facility] Number: Effective Repository Date:2018-07-20 07/20/2018 [place] Primary [place] Insurance:MEDICARE STARLINDOB: Community HEALTHY [id number] PART A [facility] [id number] Number: [place] [id number]: (330) Date:2018-07-2059 () 07/20/2018 Secondary [place] Insurance:RURAL STARLINDOB: Community CARRIER BENEFIT [id number] Number: Repository [id number] Date:5632-38-80YF [address] [address]XY: 07/20/2018 Tertiary NOT [place]UNK [place] Insurance:SELF PAY [facility] Number: Effective Repository Date:2018-07-20 07/20/2018 [place] Primary [place] Insurance:MEDICARE STARLINDOB: Community HEALTHY [id number] PART A [facility] [id number] Number: [place] [id number]: (330) Date:2018-07-20 () 07/20/2018 Secondary [place] Insurance:RURAL STARLINDOB: Community CARRIER BENEFIT [id number] Number: Repository [id number] Date:4183-07-34UR [address] [address]KC: 07/20/2018 Tertiary NOT GIVENUNK [place] Insurance:SELF PAY [facility] Number: Effective Repository Date:2018-07-20 07/20/2018 [place] Primary [place] Insurance:MEDICARE STARLINDOB: Community HEALTHY [id number] PART A [facility] [id number] Number: [place] [id number]: (330) Date:2018-07-20 () 07/20/2018 Secondary [place] Insurance:RURAL STARLINDOB: Community CARRIER BENEFIT [address] [place] [address] [facility] Number: Repository [id number] Date:5202-73-13RI [address] [place] [address]OX: 07/20/2018 Tertiary NOT [place]IVENUNK [place] Insurance:SELF PAY [facility] Number: Effective Repository Date:2018-07-20 07/20/2018 [place] Primary [place] Insurance:MEDICARE STARLINDOB: Community HEALTHY [id number] PART A [facility] [id number] Number: Repository [place] [id number]: (330) Date:2018-07-20 () 07/20/2018 Secondary [place] Insurance:RURAL STARLINDOB: Community CARRIER BENEFIT [id number] Number: Repository [id number] Date:6233-30-83IL [address] [address]SG: 07/20/2018 Tertiary NOT [place]K [place] Insurance:SELF PAY Community [facility] Number: Effective Repository Date:2018-07-20 07/07/2018 [place] Primary [place] Insurance:MEDICARE STARLINDOB: Community HEALTHY [id number] PART A [facility] [id number] Valley Health System Number: Repository [place] [id number] [phone]: (330) Date:2018-07-07 () 07/07/2018 Secondary [place] Insurance:RURAL STARLINDOB: Community CARRIER BENEFIT [id number] Hospital PLANPolicy Number: Repository [id number] Date:5576-23-26GV [address] [place] [address]JS: 07/07/2018 Tertiary NOT GIVENUNK [place] Insurance:SELF PAY [facility] Number: Effective Repository Date:2018-07-07 06/17/2018 [place] Primary [place] Insurance:MEDICARE STARLINDOB: Community HEALTHY [id number] PART A [facility] [id number] Valley Health System Number: Repository [place] [id number] [address]Cld: (330) Date:2018-03-08 () 06/17/2018 Secondary [place] Insurance:RURAL STARLINDOB: Community CARRIER BENEFIT [id number] St. Vincent Physicians Medical CenterPolic Number: Repository [id number] Date:9925-21-84UN [facility] [address] [place] [address]UL: 06/17/2018 Tertiary NOT [place] Insurance:SELF PAY [facility] Number: Effective Repository Date:2018-03-08 06/09/2018 [place] Primary [place] Insurance:MEDICARE STARLINDOB: Community HEALTHY [id number] PART A [facility] [id number] Valley Health System Number: Repository [place] [id number]: (330) Date:2018-06-09 () 06/09/2018 Secondary [place] Insurance:RURAL STARLINDOB: Community CARRIER BENEFIT [id number] PLANPolicy Number: Repository [id number] Date:8726-89-79UY [facility] [address] [address]VX: 06/09/2018 Tertiary NOT [place] Insurance:SELF PAY Community [facility] Number: Effective Repository Date:2018-06-09 06/04/2018 [place] Primary [place] Insurance:MEDICARE STARLINDOB: Community HEALTHY [id number] PART A [facility] [id number] Valley Health System Number: Repository [place]DM[place] [id number] [phone]: 330) Date:2018-06-049895 () 06/04/2018 Secondary [place] Insurance:RURAL STARLINDOB: Community CARRIER BENEFIT [id number] PLANPolicy Number: Repository [id number] Date:7409-27-79RY [facility] [address] [address]EP: 06/04/2018 Tertiary NOT [place]K [place] Insurance:SELF PAY [facility] Number: Effective Repository Date:2018-06-04 05/26/2018 [place] Primary [place] Insurance:MEDICARE STARLINDOB: Community HEALTHY [id number] PART A [facility] [id number] Number: Repository [place] [id number]: (330) Date:2018-05-1454 () 05/26/2018 Secondary [place] Insurance:RURAL STARLINDOB: Community CARRIER BENEFIT [id number] PLANPolicy Number: Repository [id number] Date:5890-65-74XK [facility] [address] [place] [address]EY: 05/26/2018 Tertiary NOT GIVENUNK [place] Insurance:SELF PAY Community [facility] Number: Effective Repository Date:2018-05-26 05/09/2018 [place] Primary [place] Insurance:MEDICARE STARLINDOB: Community HEALTHY [id number] PART A [facility] [id number] Valley Health System Number: Repository [place] [id number] [address]Vsz: (330) Date:2018-05-08 () 05/09/2018 Secondary [place] Insurance:RURAL STARLINDOB: Community CARRIER BENEFIT [id number] Hospital PLANPolicy Number: Repository [id number] Date:2245-05-70MC [address] [place] [address]DN: 05/09/2018 Tertiary NOT [place]K [place] Insurance:SELF PAY [facility] Number: Effective Repository Date:2018-05-08 05/09/2018 [place] Primary [place] Insurance:MEDICARE STARLINDOB: Community HEALTHY [id number] PART A [facility] [id number] Valley Health System Number: Repository [place] [id number]: (330) Date:2018-05-0801 () 05/09/2018 Secondary [place] Insurance:RURAL STARLINDOB: Community CARRIER BENEFIT [id number] Hospital PLANPolicy Number: Repository [id number] Date:6970-20-88EA [address] [place] [address]EH: 05/09/2018 Tertiary NOT GIVENUNK [place] Insurance:SELF PAY [facility] Number: Effective Repository Date:2018-05-09 05/09/2018 [place] Primary [place] Insurance:MEDICARE STARLINDOB: Community HEALTHY [id number] PART A [facility] [id number] Valley Health System Number: Repository [place] [id number]: (330) Date:2018-05-08 () 05/09/2018 Secondary [place] Insurance:RURAL STARLINDOB: Community CARRIER BENEFIT [id number] Hospital PLANPolicy Number: Repository [id number] Date:4871-31-07FV [address] [address]PB: 05/09/2018 Tertiary NOT GIVENUNK [place] Insurance:SELF PAY [facility] Number: Effective Repository Date:2018-05-09 05/08/2018 [place] Primary [place] Insurance:MEDICARE STARLINDOB: Community HEALTHY [id number] PART A [facility] [id number] Valley Health System Number: Repository [place] [id number] 164[address]Hvx: (330) Date:2018-05-084359 () 05/08/2018 Secondary [place] Insurance:RURAL STARLINDOB: Community CARRIER BENEFIT [id number] [facility] Number: Repository [id number] Date:2336-04-41VB [facility] [address] [address]HC: 05/08/2018 Tertiary NOT GIVENUNK [place] Insurance:SELF PAY [facility] Number: Effective Repository Date:2018-05-08 05/08/2018 [place] Primary [place] Insurance:MEDICARE STARLINDOB: Community HEALTHY [id number] PART A [facility] [id number] Valley Health System Number: Repository [place] [id number] [address]Cwx: (330) Date:2018-05-0832 () 05/08/2018 Secondary [place] Insurance:RURAL STARLINDOB: Community CARRIER BENEFIT [id number] Number: Repository [id number] Date:5744-35-05KB [facility] [address] [address]YV: 05/08/2018 Tertiary NOT [place]K [place] Insurance:SELF PAY [facility] Number: Effective Repository Date:2018-05-08 04/14/2018 [place] Insurance:MEDICARE StarlinDOB: Community HEALTHY [id number] PART A [facility] [id number] Valley Health System Number: Repository [address]GIS[place] [id number]: (330) Date:2018-04-14 [phone] () 04/14/2018 Secondary [place] Insurance:RURAL StarlinDOB: Community CARRIER BENEFIT [address] [place] [address] PLANPolicy Number: Repository [id number] Date:2270-24-71PZ [address] [address]VM: 04/14/2018 Tertiary NOT G[place]UNK [place] Insurance:SELF PAY Community [facility] Number: Effective Repository Date:2018-04-14 03/01/2018 [place] [id number] Primary [place] Insurance:MEDICARE STARLINDOB: Community [address] PART A [address] Number: Repository [id number]: [phone] [id number] [phone] () Date:2018-03-01 03/01/2018 Secondary [place] Insurance:RURAL STARLINDOB: Community CARRIER BENEFIT [address] [place], [place] [address]Policy Number: Repository [id number] Date:1254-28-94OG [address] [address]AV: 03/01/2018 Tertiary NOT [place]K [place] Insurance:SELF PAY [facility] Number: Effective Repository Date:2018-03-01 03/01/2018 [place] [id number] [facility] STARLINDOB: Community [address]West[facility] PART A [address] Number: Repository [id number]: (752) [id number] [phone] () Date:2018-03-01 03/01/2018 Secondary [place] Insurance:RURAL STARLINDOB: Community CARRIER BENEFIT [id number] Number: Repository [id number] Date:5192-37-58LE [address] [address]ZB: 03/01/2018 Tertiary NOT GIVENUNK [place] Insurance:SELF [facility]Y [facility] Number: Effective Repository Date:2018-03-01 03/01/2018 [place] [id number] Primary [place] Insurance:MEDICARE STARLINDOB: Community [address]West[facility] PART A [address] Number: Repository [id number]: [phone] [id number] [phone] () Date:2018-03-01 03/01/2018 Secondary [place] Insurance:RURAL STARLINDOB: Community CARRIER BENEFIT [address] [place] [address] PLANPolicy Number: Repository [id number] Date:4984-07-44EZ [address] [place] [address]WX: 03/01/2018 Tertiary NOT GIVENUNK [place] Insurance:SELF PAY [facility] Number: Effective Repository Date:2018-03-01 03/01/2018 [place] [id number] Primary [place] Insurance:MEDICARE STARLINDOB: Community [address]West[facility] PART A [address] [place] Number: Repository [id number]: 419 [id number] [phone] () Date:2018-03-01 03/01/2018 Secondary [place] Insurance:RURAL STARLINDOB: Community CARRIER BENEFIT [address] [place] [address] PLANPolicy Number: Repository [id number] Date:9369-07-64JY [address] [place] [address]KQ: 03/01/2018 Tertiary NOT [place] Insurance:SELF PAY [facility] Number: Effective Repository Date:2018-03-01 03/01/2018 [place] [id number] Primary [place] Insurance:MEDICARE STARLINDOB: Community [address] PART A [address] Number: Repository [id number]: [phone] [id number] [phone] () Date:2018-03-01 03/01/2018 Secondary ELDORA [place] Insurance:RURAL STARLINDOB: Community CARRIER BENEFIT [id number] PLANPolicy Number: Repository [id number] Date:[id number] [address] [place] [id number]: 03/01/2018 Tertiary NOT GIVENUNK [place] Insurance:SELF PAY [facility] Effective Repository Date:2018-03-01 03/01/2018 LELANDDORA [id number] Primary [place] Insurance:MEDICARE STARLINDOB: Community [address] [facility] [id number] Number: Repository [id number]: [phone] [id number] [phone] () Date:2018-03-01 03/01/2018 Secondary E[place] Insurance:RURAL STARLINDOB: Community CARRIER BENEFIT [id number] PLANPolicy Number: Repository [id number] Date:1033-87-46[address] [address]GS: 03/01/2018 Tertiary NOT GIVENUNK [place] Insurance:SELF PAY [facility] Number: Effective Repository Date:2018-03-01 03/01/2018 LELANDDORA [id number] Primary [place] Insurance:MEDICARE STARLINDOB: [address] [facility] PART A [facility] [id number] Number: Repository [id number]: [phone] [id number] [phone] () Date:2018-03-01 03/01/2018 Secondary [place] Insurance:RURAL STARLINDOB: Community CARRIER BENEFIT [id number] [place] [address] PLANPolicy Number: Repository [id number] Date:0213-42-15[address] [address]HO: 03/01/2018 Tertiary NOT GIVENUNK [place] Insurance:SELF PAY [facility] Number: Effective Repository Date:2018-03-01 03/01/2018 ELDORA [id number] Primary [place] Insurance:MEDICARE STARLINDOB: [address] [facility] PART A [facility] [id number] Number: Repository [id number]: [phone] [id number] [phone] () Date:2018-03-01 03/01/2018 Secondary E[place] Insurance:RURAL STARLINDOB: Community CARRIER BENEFIT [id number] Hospital PLANPolicy Number: Repository [id number] Date:9260-01-94SW [facility] [address] [place] [address] [place] [address]HK: 03/01/2018 Tertiary NOT GIVENUNK [place] Insurance:SELF PAY [facility] Effective Repository Date:2018-03-01 03/01/2018 ELDORA [id number] Primary [place] Insurance:MEDICARE STARLINDOB: [address] PART A [facility] [id number] Number: Repository [phone]: [phone] [id number] [phone] () Date:2017-10-20 03/01/2018 Secondary E[place] Insurance:RURAL STARLINDOB: Community CARRIER BENEFIT [id number] Hospital PLANPolicy Number: Repository [id number] Date:0674-52-78OB [facility] [place] [place] [address]CW: 03/01/2018 Tertiary NOT GIVENUNK [place] Insurance:SELF PAY [facility] Number: Effective Repository Date:2017-10-20 01/21/2018 [place] [id number] Primary [place] Insurance:MEDICARE StarlinDOB: [address] PART A [facility] [id number] Number: Repository [id number]: [phone] [id number] [phone] () Date:2018-01-21 01/21/2018 Secondary [place] Insurance:RURAL StarlinDOB: Community CARRIER BENEFIT [id number] Hospital PLANPolicy Number: Repository [id number] Date:8097-32-34[address] [address]OU: 01/21/2018 Tertiary NOT GIVENUNK [place] Insurance:SELF PAY [facility] Number: Effective Repository Date:2018-01-21 01/18/2018 [place] [id number] Primary [place] Insurance:MEDICARE StarlinDOB: [address] PART A [facility] [id number] Number: Repository [id number]: [phone] [id number] [phone] (HP) Date:2018-01-18 01/18/2018 Secondary [place] Insurance:RURAL StarlinDOB: Community CARRIER BENEFIT [id number] Hospital PLANPolicy Number: Repository [id number] Date:7629-68-76[address] [address]QA: 01/18/2018 Tertiary NOT GIVENUNK [place] Insurance:SELF PAY [facility] Number: Effective Repository Date:2018-01-18 01/15/2018 [place] [id number] Primary ELDOR[place] Insurance:MEDICARE STARLINDOB: [address] [facility] PART A [facility] [id number], [place] Number: Repository [id number]: [phone] [id number] [phone] (HP) Date:2018-01-15 01/15/2018 Secondary ELD[place] Insurance:RURAL STARLINDOB: Community CARRIER BENEFIT [id number] Hospital PLANPolicy Number: Repository [id number] Date:1431-39-84HJ [address] [address]OQ: 01/15/2018 Tertiary NOT GIVENUNK [place] Insurance:SELF PAY [facility] Number: Effective Repository Date:2018-01-15
== END 2018-11-01 23:59 ==
LOC: WC 10:30
PROVIDERS: Family Provider Family Medicine; PCP Family Medicine; Visit Provider Internal Medicine
DX: T81.31XA Disruption of external operation (surgical) wound, not elsewhere classified, initial encounter (principal); Y83.9 Surgical procedure, unspecified as the cause of abnormal reaction of the patient, or of later complication, without mention of misadventure at the time of the procedure; E11.9 Type 2 diabetes mellitus without complications
CPT/HCPCS: 11042

== ENCOUNTER → 2018-11-01 05:00 | Outpatient (REF) | payer MEDICARE, OTHER, SELFPAY ==
[2018-10-13 11:00] VITALS: BMI 29.6
[2018-11-01 06:21] LABS: Hematocrit 35.8 % (37-47); Hemoglobin 11.5 g/dl (12.0-15.0); Mean Corp Hgb Conc 32.1 g/gl (32-36); Mean Corpuscular Hgb 32.6 pg (27.0-32.0); Mean Corpuscular Volume 101.4 fL (81-99); Mean Platelet Vol. 10.4 fl (6.2-12.0); Platelet Count 177 K/mm3 (150-450); RBC Distribution Width CV 16.7 % (11.6-14.6); Red Blood Count 3.53 M/mm3 (4.2-5.4); White Blood Count 7.8 K/mm3 (4.4-11.0)
[2018-11-01 06:27] LABS: Scan Indicated on CBC? Y/N NO
[2018-11-01 06:36] LABS: Anion Gap 13 (5-15); BUN 36 mg/dL (7-18); BUN/Creat Ratio 29.8 RATIO (10-20); Calcium,Total 9.4 mg/dL (8.5-10.1); Chloride 107 mmol/L (98-107); Creatinine, Serum 1.21 mg/dL (0.55-1.02); EST Glomerular Filtration Rate 45 mL/min (>60); Est Glom Filt Rate - Afr Amer 55 mL/min (>60); Glucose 159 mg/dL (74-106); Potassium 5.4 mmol/L (3.5-5.1); Sodium Level 140 mmol/L (136-145)
== END ==
LOC: OLS.WHLCAR 05:00
PROVIDERS: Visit Provider Family Medicine
DX: D64.9 Anemia, unspecified (principal); E11.9 Type 2 diabetes mellitus without complications; E78.5 Hyperlipidemia, unspecified; J44.9 Chronic obstructive pulmonary disease, unspecified
CPT/HCPCS: 36415; 80048; 85027

== ENCOUNTER → 2018-11-08 04:00 | Outpatient (REF) | payer MEDICARE, OTHER, SELFPAY ==
[2018-10-13 11:00] VITALS: BMI 29.6
[2018-11-08 07:12] LABS: Anion Gap 8 (5-15); BUN 27 mg/dL (7-18); BUN/Creat Ratio 21.6 RATIO (10-20); Chloride 106 mmol/L (98-107); Creatinine, Serum 1.25 mg/dL (0.55-1.02); EST Glomerular Filtration Rate 44 mL/min (>60); Est Glom Filt Rate - Afr Amer 53 mL/min (>60); Glucose 69 mg/dL (74-106); Potassium 4.4 mmol/L (3.5-5.1); Sodium Level 143 mmol/L (136-145)
[2018-11-08 07:18] LABS: Hematocrit 30.3 % (37-47); Hemoglobin 9.6 g/dl (12.0-15.0); Mean Corp Hgb Conc 31.7 g/gl (32-36); Mean Corpuscular Hgb 31.8 pg (27.0-32.0); Mean Corpuscular Volume 100.3 fL (81-99); Mean Platelet Vol. 9.1 fl (6.2-12.0); Platelet Count 209 K/mm3 (150-450); RBC Distribution Width CV 17.5 % (11.6-14.6); RBC Distribution Width SD 64.1 fl (35.1-43.9); Red Blood Count 3.02 M/mm3 (4.2-5.4); White Blood Count 7.5 K/mm3 (4.4-11.0)
[2018-11-08 07:30] LABS: Scan Indicated on CBC? Y/N NO
== END ==
LOC: OLS.WHLCAR 04:00
PROVIDERS: Visit Provider Family Medicine
DX: D64.9 Anemia, unspecified (principal); J44.9 Chronic obstructive pulmonary disease, unspecified; E11.9 Type 2 diabetes mellitus without complications; E78.5 Hyperlipidemia, unspecified; E03.9 Hypothyroidism, unspecified
CPT/HCPCS: 36415; 80048; 85027

== ENCOUNTER → 2018-11-15 05:00 | Outpatient (REF) | payer MEDICARE, OTHER, SELFPAY ==
[2018-10-13 11:00] VITALS: BMI 29.6
[2018-11-15 08:41] LABS: Hematocrit 31.4 % (37-47); Hemoglobin 9.8 g/dl (12.0-15.0); Mean Corp Hgb Conc 31.2 g/gl (32-36); Mean Corpuscular Hgb 31.8 pg (27.0-32.0); Mean Corpuscular Volume 101.9 fL (81-99); Mean Platelet Vol. 9.4 fl (6.2-12.0); Platelet Count 287 K/mm3 (150-450); RBC Distribution Width CV 15.9 % (11.6-14.6); RBC Distribution Width SD 57.9 fl (35.1-43.9); Red Blood Count 3.08 M/mm3 (4.2-5.4); White Blood Count 9.2 K/mm3 (4.4-11.0)
[2018-11-15 08:48] LABS: Anion Gap 8 (5-15); BUN 32 mg/dL (7-18); BUN/Creat Ratio 23.5 RATIO (10-20); Calcium,Total 8.9 mg/dL (8.5-10.1); Chloride 104 mmol/L (98-107); Creatinine, Serum 1.36 mg/dL (0.55-1.02); EST Glomerular Filtration Rate 40 mL/min (>60); Est Glom Filt Rate - Afr Amer 48 mL/min (>60); Glucose 152 mg/dL (74-106); Potassium 4.5 mmol/L (3.5-5.1); Sodium Level 141 mmol/L (136-145)
[2018-11-15 09:05] LABS: Scan Indicated on CBC? Y/N NO
== END ==
LOC: OLS.WHLCAR 05:00
PROVIDERS: Visit Provider Family Medicine
DX: D64.9 Anemia, unspecified (principal); E11.9 Type 2 diabetes mellitus without complications; E78.5 Hyperlipidemia, unspecified; E03.9 Hypothyroidism, unspecified; J44.9 Chronic obstructive pulmonary disease, unspecified
CPT/HCPCS: 36415; 80048; 85027

== ENCOUNTER → 2018-11-22 04:30 | Outpatient (REF) | payer MEDICARE, OTHER, SELFPAY ==
[2018-10-13 11:00] VITALS: BMI 29.6
[2018-11-22 07:07] LABS: Hemoglobin 8.9 g/dl (12.0-15.0); Mean Corp Hgb Conc 31.8 g/gl (32-36); Mean Corpuscular Volume 100.7 fL (81-99); Mean Platelet Vol. 8.9 fl (6.2-12.0); Platelet Count 226 K/mm3 (150-450); RBC Distribution Width CV 16.4 % (11.6-14.6); RBC Distribution Width SD 60.7 fl (35.1-43.9); Red Blood Count 2.78 M/mm3 (4.2-5.4); White Blood Count 7.4 K/mm3 (4.4-11.0)
[2018-11-22 07:15] LABS: Anion Gap 7 (5-15); BUN 26 mg/dL (7-18); BUN/Creat Ratio 20.3 RATIO (10-20); Calcium,Total 8.4 mg/dL (8.5-10.1); Chloride 104 mmol/L (98-107); Creatinine, Serum 1.28 mg/dL (0.55-1.02); EST Glomerular Filtration Rate 42 mL/min (>60); Est Glom Filt Rate - Afr Amer 51 mL/min (>60); Glucose 152 mg/dL (74-106); Potassium 4.5 mmol/L (3.5-5.1); Sodium Level 139 mmol/L (136-145)
[2018-11-22 07:24] LABS: Scan Indicated on CBC? Y/N NO
--- OUTSIDE RECORDS SUMMARY | 2019-01-24 13:13 | XMS RPT_ITS ---
:1935 Author Organization [place] Support Name Relationship Address Phone ARABELLA LÓPEZ Unavailable [address] + [place] [address] R Unavailable Unavailable Unavailable KINGSLEY, LOU Unavailable [address] + [place] [address] ARABELLA LÓPEZ Unavailable [address] + [facility] [place] [address] R Unavailable Unavailable Unavailable KINGSLEY, LOU Unavailable [address] + [place] [address] ARABELLA LÓPEZ Unavailable [address] + [place] [address] R Unavailable Unavailable Unavailable KINGSLEY, LOU Unavailable [address] + [place] [address] ARABELLA LÓPEZ Unavailable [address] + [facility] [place] [address] R Unavailable Unavailable Unavailable KINGSLEY, LOU Unavailable [address] + [place] [address] ARABELLA LÓPEZ Unavailable [address] + [facility] [place] [address] R Unavailable Unavailable Unavailable KINGSLEY, LOU Unavailable [address] + [place] [address] ARABELLA LÓPEZ Unavailable [address] + [facility] [place] [address] R Unavailable Unavailable Unavailable KINGSLEY, LOU Unavailable [address] + [place] [address] ARABELLA LÓPEZ Unavailable [address] + [place] [address] R Unavailable Unavailable Unavailable KINGSLEY, LOU Unavailable [address] + [place] [address] ARABELLA LÓPEZ Unavailable [address] + [facility] [place] [address] R Unavailable Unavailable Unavailable KINGSLEY, LOU Unavailable [address] + [place] [address] JACK LÓPEZDY Unavailable [address] + [facility] [place] [address] R Unavailable Unavailable Unavailable KINGSLEY, LOU Unavailable [address] + [place] [address] JACK LÓPEZDY Unavailable [address] + [place] [address] R Unavailable Unavailable Unavailable KINGSLEY, LOU Unavailable [address] + [place] [address] ARABELLA LÓPEZ Unavailable [address] + [facility] [place] [address] R Unavailable Unavailable Unavailable KINGSLEY, LOU Unavailable [address] + [place] [address] ARABELLA LÓPEZ Unavailable [address] + [facility] [place] [address] R Unavailable Unavailable Unavailable KINGSLEY, LOU Unavailable [address] + [place] [address] ARABELLA LÓPEZ Unavailable [address] + [facility] [place] [address] R Unavailable Unavailable Unavailable KINGSLEY, LOU Unavailable [address] + [place] [address] ARABELLA LÓPEZ Unavailable [address] + [facility] [place] [address] R Unavailable Unavailable Unavailable KINGSLEY, LOU Unavailable [address] + [place] [address] ARABELLA LÓPEZ Unavailable [address] + [facility] [place] [address] R Unavailable Unavailable Unavailable KINGSLEY, LOU Unavailable [address] + [place] [address] JACK LÓPEZDY Unavailable [address] + [facility] [place] [address] R Unavailable Unavailable Unavailable KINGSLEY, LOU Unavailable [address] + [place] [address] ARABELLA LÓPEZ Unavailable [address] + [place] [address] R Unavailable Unavailable Unavailable KINGSLEY, LOU Unavailable [address] + [place] [address] ARABELLA LÓPEZ Unavailable [address] + [place] [address] R Unavailable Unavailable Unavailable KINGSLEY, LOU Unavailable [address] + [place] [address] ARABELLA LÓPEZ Unavailable [address] + [facility] [place] [address] R Unavailable Unavailable Unavailable KINGSLEY, LOU Unavailable [address] + [place] [address] ARABELLA LÓPEZ Unavailable [address] + [facility] [place] [address] R Unavailable Unavailable Unavailable KINGSLEY, LOU Unavailable [address] + [place] [address] ARABELLA LÓPEZ Unavailable [address] + [facility] [place] [address] R Unavailable Unavailable Unavailable KINGSLEY, LOU Unavailable [address] + [place] [address] ARABELLA LÓPEZ Unavailable [address] + [facility] [place] [address] R Unavailable Unavailable Unavailable KINGSLEY, LOU Unavailable [address] + [place] [address] ARABELLA LÓPEZ Unavailable [address] + [facility] [place] [address] R Unavailable Unavailable Unavailable KINGSLEY, LOU Unavailable [address] + [place] [address] ARABELLA LÓPEZ Unavailable [address] + [facility] [place] [address] R Unavailable Unavailable Unavailable KINGSLEY, LOU Unavailable [address] + [place] [address] JACK LÓPEZDY Unavailable [address] + [facility] [place] [address] R Unavailable Unavailable Unavailable KINGSLEY, LOU Unavailable [address] + [place] [address] ARABELLA LÓPEZ Unavailable [address] + [facility] [place] [address] R Unavailable Unavailable Unavailable KINGSLEY, LOU Unavailable [address] + [place] [address] ARABELLA LÓPEZ Unavailable [address] + [facility] [place] [address] R Unavailable Unavailable Unavailable KINGSLEY, LOU Unavailable [address] + [place] [address] ARABELLA LÓPEZ Unavailable [address] + [facility] [place] [address] R Unavailable Unavailable Unavailable KINGSLEY, LOU Unavailable [address] + [place] [address] Arabella López Unavailable [address] + [facility] [place] [address] R Unavailable Unavailable Unavailable Kingsley, Lou Unavailable [address] + [place] [address] ARABELLA LÓPEZ Unavailable [address] + [facility] [place] [address] R Unavailable Unavailable Unavailable KINGSLEY, LOU Unavailable [address] + [place] [address] ARABELLA LÓPEZ Unavailable [address] + [facility] [place] [address] R Unavailable Unavailable Unavailable KINGSLEY, LOU Unavailable [address] + [place] [address] ARABELLA LÓPEZ Unavailable [address] + [facility] [place] [address] R Unavailable Unavailable Unavailable KINGSLEY, LOU Unavailable [address] + [place] [address] ARABELLA LÓPEZ Unavailable [address] + [facility] [place] [address] R Unavailable Unavailable Unavailable KINGSLEY, LOU Unavailable [address] + [place] [address] Arabella López Unavailable [address] + [facility] [place] [address] R Unavailable Unavailable Unavailable Kingsley, Lou Unavailable [address] + [place] [address] Arabella López Unavailable [address] + [facility] [place] [address] R Unavailable Unavailable Unavailable Kingsley, Lou Unavailable [address] + [place] [address] Arabella Lóepz Unavailable [address] + [facility] [place] [address] R Unavailable Unavailable Unavailable Kingsley, Lou Unavailable [address] + [place] [address] Arabella López Unavailable [address] + [facility] [place] [address] R Unavailable Unavailable Unavailable Kingsley, Lou Unavailable [address] + [place] [address] Arabella López Unavailable [address] + [facility] [place] [address] R Unavailable Unavailable Unavailable Kingsley, Lou Unavailable [address] + [place] [address] Arabella López Unavailable [address] + [facility] [place] [address] R Unavailable Unavailable Unavailable Kingsley, Lou Unavailable [address] + [place] [address] Arabella López Unavailable [address] + [facility] [place] [address] R Unavailable Unavailable Unavailable Kingsley, Lou Unavailable [address] + [place] [address] Arabella López Unavailable [address] + [facility] [place] [address] R Unavailable Unavailable Unavailable Kingsley, Lou Unavailable [address] + [place] [address] Arabella López Unavailable [address] + [facility] [place] [address] R Unavailable Unavailable Unavailable Kingsley, Lou Unavailable [address] + [place] [address] Arabella López Unavailable [address] + [facility] [place] [address] R Unavailable Unavailable Unavailable Kingsley, Lou Unavailable [address] + [place] [address] Arabella López Unavailable [address] + [facility] [place] [address] R Unavailable Unavailable Unavailable Kingsley, Lou Unavailable [address] + [place] [address] Arabella López Unavailable [address] + [facility] [place] [address] R Unavailable Unavailable Unavailable Kingsley, Lou Unavailable [address] + [place] [address] Arabella López Unavailable [address] + [facility] [place] [address] R Unavailable Unavailable Unavailable Kingsley, Lou Unavailable [address] + [place] [address] Arabella López Unavailable [address] + [facility] [place] [address] R Unavailable Unavailable Unavailable Kingsley, Lou Unavailable [address] + [place] [address] Arabella López Unavailable [address] + [facility] [place] [address] R Unavailable Unavailable Unavailable Kingsley, Lou Unavailable [address] + [place] [address] Arabella López Unavailable [address] + [facility] [place] [address] R Unavailable Unavailable Unavailable Kingsley, Lou Unavailable [address] + [place] [address] Arabella López Unavailable [address] + [facility] [place] [address] R Unavailable Unavailable Unavailable Kingsley, Lou Unavailable [address] + [place] [address] Arabella López Unavailable [address] + [place] [address] R Unavailable Unavailable Unavailable Kingsley, Lou Unavailable [address] + [place] [address] Arabella López Unavailable [address] + [facility] [place] [address] R Unavailable Unavailable Unavailable Kingsley, Lou Unavailable [address] + [place] [address] Arabella López Unavailable [address] + [facility] [place] [address] R Unavailable Unavailable Unavailable Kingsley, Lou Unavailable [address] + [place] [address] Arabella López Unavailable [address] + [facility] [place] [address] R Unavailable Unavailable Unavailable Kingsley, Lou Unavailable [address] + [place] [address] Arabella López Unavailable [address] + [place] [address] R Unavailable Unavailable Unavailable Kingsley, Lou Unavailable [address] + [place] [address] Arabella López Unavailable [address] + [place] [address] R Unavailable Unavailable Unavailable Kingsley, Lou Unavailable [address] + [place] [address] Arabella López Unavailable [address] + [facility] [place] [address] R Unavailable Unavailable Unavailable Kingsley, Lou Unavailable [address] + [place] [address] Arabella López Unavailable [address] + [place] [address] R Unavailable Unavailable Unavailable Kingsley, Lou Unavailable [address] + [place] [address] Arabella López Unavailable [address] + [facility] [place] [address] R Unavailable Unavailable Unavailable Kingsley, Lou Unavailable [address] + [place] [address] Arabella López Unavailable [address] + [place] [address] R Unavailable Unavailable Unavailable Kingsley, Lou Unavailable [address] + [place] [address] Arabella López Unavailable [address] + [facility] [place] [address] R Unavailable Unavailable Unavailable Kingsley, Lou Unavailable [address] + [place] [address] [place], Arabella Unavailable [address] + [facility] [place] [address] R Unavailable Unavailable Unavailable Kingsley, Lou Unavailable [address] + [place] [address] Arabella López Unavailable [address] + [facility] [place] [address] R Unavailable Unavailable Unavailable Kingsley, Lou Unavailable [address] + [place] [address] Arabella López Unavailable [address] + [place] [address] R Unavailable Unavailable Unavailable Kingsley, Lou Unavailable [address] + [place] [address] Arabella López Unavailable [address] + [facility] [place] [address] R Unavailable Unavailable Unavailable Kingsley, Lou Unavailable [address] + [place] [address] Arabella López Unavailable [address] + [facility] [place] [address] R Unavailable Unavailable Unavailable Kingsley, Lou Unavailable [address] + [place] [address] Arabella López Unavailable [address] + [facility] [place] [address] R Unavailable Unavailable Unavailable Kingsley, Lou Unavailable [address] + [place] [address] Arabella López Unavailable [address] + [facility] [place] [address] R Unavailable Unavailable Unavailable Kingsley, Lou Unavailable [address] + [place] [address] Arabella López Unavailable [address] + [facility] [place] [address] R Unavailable Unavailable Unavailable Kingsley, Lou Unavailable [address] + [place] [address] Arabella López Unavailable [address] + [facility] [place] [address] R Unavailable Unavailable Unavailable Kingsley, Lou Unavailable [address] + [place] [address] Arabella López Unavailable [address] + [place] [address] R Unavailable Unavailable Unavailable Kingsley, Lou Unavailable [address] + [place] [address] Arabella López Unavailable [address] + [place] [address] R Unavailable Unavailable Unavailable Kingsley, Lou Unavailable [address] + [place] [address] Arabella López Unavailable [address] + [place] [address] R Unavailable Unavailable Unavailable Kingsley, Lou Unavailable [address] + [place] [address] Arabella López Unavailable [address] + [place] [address] R Unavailable Unavailable Unavailable Kingsley, Lou Unavailable [address] + [place] [address] Arabella López Unavailable [address] + [place] [address] R Unavailable Unavailable Unavailable Kingsley, Lou Unavailable [address] + [place] [address] Arabella López Unavailable [address] + [place] [address] R Unavailable Unavailable Unavailable Kingsley, Lou Unavailable [address] + [place] [address] Arabella López Unavailable [address] + [place] [address] R Unavailable Unavailable Unavailable Kingsley, Lou Unavailable [address] + [place] [address] Arabella López Unavailable [address] + [place] [address] R Unavailable Unavailable Unavailable Kingsley, Lou Unavailable [address] + [place] [address] Arabella López Unavailable [address] + [place] [address] R Unavailable Unavailable Unavailable Kingsley, Lou Unavailable [address] + [place] [address] Arabella López Unavailable [address] + [place] [address] R Unavailable Unavailable Unavailable Kingsley, Lou Unavailable [address] + [place] [address] Arabella López Unavailable [address] + [facility] [place] [address] R Unavailable Unavailable Unavailable Kingsley, Lou Unavailable [address] + [place] [address] Jack Lópezdy Unavailable [address] + [facility] [place] [address] R Unavailable Unavailable Unavailable Kingsley, Lou Unavailable [address] + [place] [address] Arabella López Unavailable [address] + [place] [address] R Unavailable Unavailable Unavailable Kingsley, Lou Unavailable [address] + [place] [address] Jack Lópezdy Unavailable [address] + [place] [address] R Unavailable Unavailable Unavailable Kingsley, Lou Unavailable [address] + [place] [address] Jack Lópezdy Unavailable [address] + [place] [address] R Unavailable Unavailable Unavailable Kingsley, Lou Unavailable [address] + [place] [address] Arabella López Unavailable [address] + [place] [address] R Unavailable Unavailable Unavailable Kingsley, Lou Unavailable [address] + [place] [address] Jack Lópezdy Unavailable [address] + [place] [address] R Unavailable Unavailable Unavailable Kingsley, Lou Unavailable [address] + [place] [address] Arabella López Unavailable [address] + [place] [address] R Unavailable Unavailable Unavailable Kingsley, Lou Unavailable [address] + [place] [address] Jack Lópezdy Unavailable [address] + [place] [address] R Unavailable Unavailable Unavailable Kingsley, Lou Unavailable [address] + [place] [address] Jack Lópezdy Unavailable [address] + [facility] [place] [address] R Unavailable Unavailable Unavailable Kingsley, Lou Unavailable [address] + [place] [address] Jack Lópezdy Unavailable [address] + [place] [address] R Unavailable Unavailable Unavailable Kingsley, Lou Unavailable [address] + [place] [address] Jack Lópezdy Unavailable [address] + [place] [address] R Unavailable Unavailable Unavailable Kingsley, Lou Unavailable [address] + [place] [address] Jack Lópezdy Unavailable [address] + [place] [address] R Unavailable Unavailable Unavailable Kingsley, Lou Unavailable [address] + [place] [address] Jack Lópezdy Unavailable [address] + [place] [address] R Unavailable Unavailable Unavailable Kingsley, Lou Unavailable [address] + [place] [address] ARABELLA LÓPEZ (POA) Unavailable [address] + [place] [address] R Unavailable Unavailable Unavailable KINGSLEY, LOU (POA) Unavailable [address] + [place] [address] Jack Lópezdy Unavailable [address] + [facility] [place] [address] R Unavailable Unavailable Unavailable Kingsley, Lou Unavailable [address] + [place] [address] Jack Lópezdy Unavailable [address] + [facility] [place] [address] R Unavailable Unavailable Unavailable Kingsley, Lou Unavailable [address] + [place] [address] ARABELLA LÓPEZ (POA) Unavailable [address] + [facility] [place] [address] R Unavailable Unavailable Unavailable KINGSLEY LOU (POA) Unavailable [address] + [place] [address] ARABELLA LÓPEZ (POA) Unavailable [address] + [facility] [place] [address] R Unavailable Unavailable Unavailable KINGSLEY LOU (POA) Unavailable [address] + [place] [address] ARABELLA LÓPEZ (POA) Unavailable [address] + [facility] [place] [address] R Unavailable Unavailable Unavailable KINGSLEY LOU (POA) Unavailable [address] + [place] [address] Arabella López Unavailable [address] + [place] [address] R Unavailable Unavailable Unavailable Kingsley, Lou Unavailable [address] + [place] [address] ARABELLA LÓPEZ (POA) Unavailable [address] + [place] [address] R Unavailable Unavailable Unavailable KINGSLEY, LOU (POA) Unavailable [address] + [place] [address] ARABELLA LÓPEZ (POA) Unavailable [address] + [place] [address] R Unavailable Unavailable Unavailable KINGSLEY, LOU (POA) Unavailable [address] + [place] [address] Arabella López Unavailable [address] + [facility] [place] [address] R Unavailable Unavailable Unavailable Kingsley, Lou Unavailable [address] + [place] [address] Arabella López Unavailable [address] + [facility] [place] [address] R Unavailable Unavailable Unavailable Kingsley, Lou Unavailable [address] + [place] [address] Arabella López Unavailable [address] + [facility] [place] [address] R Unavailable Unavailable Unavailable Kingsley, Lou Unavailable [address] + [place] [address] Jack Lópezdy Unavailable [address] + [place] [address] R Unavailable Unavailable Unavailable Kingsley, Lou Unavailable [address] + [place] [address] Jack Lópezdy Unavailable [address] + [place] [address] R Unavailable Unavailable Unavailable Kingsley, Lou Unavailable [address] + [place] [address] Jack Lópezdy Unavailable [address] + [place] [address] R Unavailable Unavailable Unavailable Kingsley, Lou Unavailable [address] + [place] [address] Jack Lópezdy Unavailable [address] + [place] [address] R Unavailable Unavailable Unavailable Kingsley, Lou Unavailable [address] + [place] [address] Jack Lópezdy Unavailable [address] + [place] [address] R Unavailable Unavailable Unavailable Kingsley, Lou Unavailable [address] + [place] [address] Jack Lópezdy Unavailable [address] + [place] [address] R Unavailable Unavailable Unavailable Kingsley, Lou Unavailable [address] + [place] [address] Jack Lópezdy Unavailable [address] + [place] [address] R Unavailable Unavailable Unavailable Kingsley, Lou Unavailable [address] + [place] [address] MaribelJack pateldy Unavailable [address] + [place] [address] R Unavailable Unavailable Unavailable Kingsley, Lou Unavailable [address] + [place] [address] Jack Lópezdy Unavailable [address] + [place] [address] R Unavailable Unavailable Unavailable Kingsley, Lou Unavailable [address] + [place] [address] Arabella López Unavailable [address] +[phone] [place] [address] R Unavailable Unavailable Unavailable Kingsley, Lou Unavailable [address] + [place] [address] Care Team Providers Name Role Phone Clement [...] Tracy Referring Unavailable Charly San Attending Unavailable [facility] Care Unavailable Benja, Tracy Attending Unavailable Cody Charly Attending Unavailable Elise, Jone Referring Unavailable [facility] Attending Unavailable [facility] Unavailable Ion, Juan Jose Consulting Unavailable Paintsil, Downey Admitting Unavailable Kasandra Almendarez Attending Unavailable Robotham, Aurora Consulting Unavailable Moodisp[place], Charly Consulting Unavailable Lokesh Pulliam Consulting Unavailable Paintsil, Downey Admitting Unavailable Robotham, Aurora Attending Unavailable [facility] Unavailable IonJuan Jose Consulting Unavailable Ion, Juan Jose Referring Unavailable Paintsil, Downey Consulting Unavailable Paintsil, Downey Admitting Unavailable Paintsil, Downey Attending Unavailable [facility] Unavailable Ion, Juan Jose Consulting Unavailable Robotham, Aurora Consulting Unavailable Paintsil, Downey Consulting Unavailable Paintsil, Downey Admitting Unavailable Rob[place], Aurora Attending Unavailable [facility] Unavailable Ion, Juan Jose Consulting Unavailable Robotham, Aurora Consulting Unavailable Paintsil, Downey Consulting Unavailable Paintsil, Downey Admitting Unavailable Paintsil, Downey Attending Unavailable [facility] Unavailable Ion, Juan Jose Consulting Unavailable Robotham, Aurora Consulting Unavailable Paintsil, Downey Consulting Unavailable Paintsil, Downey Admitting Unavailable Rob[place], Aurora Attending Unavailable [facility] Unavailable Ion, Juan Jose Consulting Unavailable Roboth[place], Aurora Consulting Unavailable Paintsil, Downey Consulting Unavailable Paintsil, Downey Admitting Unavailable Paintsil, Downey Attending Unavailable [facility] Unavailable Ion, Juan Jose Consulting Unavailable Rob[place], Aurora Consulting Unavailable [place], Charly Consulting Unavailable Paintsil, Downey Consulting Unavailable Paintsil, Downey Admitting Unavailable [place], Charly Attending Unavailable [facility] Unavailable Ion, Juan Jose Consulting Unavailable Rob[place], Aurora Consulting Unavailable [place], Charly Consulting Unavailable Paint[place], Downey Consulting Unavailable Paintsil, Downey Admitting Unavailable [place], Aurora Attending Unavailable [facility] Unavailable Ion, Juan Jose Consulting Unavailable [place], [place] Consulting Unavailable [place], Charly Consulting Unavailable Paintsil, Downey Consulting Unavailable Paintsil, Downey Admitting Unavailable Paint[place], Downey Attending Unavailable [facility] Unavailable Ion, Juan Jose Consulting Unavailable [place], [place] Consulting Unavailable [place], Charly Consulting Unavailable [place], Downey Consulting Unavailable Paint[place], Downey Admitting Unavailable [place], Charly Attending Unavailable [facility] Unavailable Ion, Juan Jose Consulting Unavailable [place], Aurora Consulting Unavailable [place], Charly Consulting Unavailable Paint[place], Downey Consulting Unavailable Paintsil, Downey Admitting Unavailable Nathen Church Attending Unavailable [facility] Unavailable Ion, Juan Jose Consulting Unavailable [place], [place] Consulting Unavailable [place], Charly Consulting Unavailable [place], Downey Consulting Unavailable Paintsil, Downey Admitting Unavailable Paint[place], Downey Attending Unavailable [facility] Unavailable Ion, Juan Jose Consulting Unavailable [place], Aurora Consulting Unavailable [place], Charly Consulting Unavailable Paint[place], Downey Consulting Unavailable Paint[place], Downey Admitting Unavailable Pat Austin Attending Unavailable [facility] Unavailable Ion, Juan Jose Consulting Unavailable [place], [place] Consulting Unavailable [place], Charly Consulting Unavailable Paint[place], Downey Consulting Unavailable Paintsil, Downey Admitting Unavailable Nathen Church Attending Unavailable [facility] Unavailable Ion, Juan Jose Consulting Unavailable [place], Aurora Consulting Unavailable [place], Charly Consulting Unavailable Paint[place], Downey Consulting Unavailable Paintsil, Downey Admitting Unavailable Paint[place], Downey Attending Unavailable [facility] Unavailable Ion, Juan Jose Consulting Unavailable [place], [place] Consulting Unavailable [place], Charly Consulting Unavailable Paint[place], Downey Consulting Unavailable Paintsil, Downey Admitting Unavailable [place], Aurora Attending Unavailable [facility] Unavailable Ion, Juan Jose Consulting Unavailable [place], [place] Consulting Unavailable [place], Charly Consulting Unavailable KittoArnaud gay Consulting Unavailable [place], Downey Admitting Unavailable [place], Charly Attending Unavailable [facility] Unavailable Ion, Juan Jose Consulting Unavailable [place], [place] Consulting Unavailable [place], Charly Consulting Unavailable Kittoe, Arnaud Consulting Unavailable Paintsil, Downey Admitting Unavailable Kittoe, Arnaud Attending Unavailable [facility] Unavailable Ion, Juan Jose Consulting Unavailable [place], [place] Consulting Unavailable [place], Charly Consulting Unavailable [place], Arnaud Consulting Unavailable Paint[place], Downey Admitting Unavailable [place], Aurora Attending Unavailable [facility] Unavailable Ion, Juan Jose Consulting Unavailable Ion, Juan Jose Referring Unavailable [place], [place] Consulting Unavailable [place], Charly Consulting Unavailable [place], Arnaud Consulting Unavailable Paintsil, Downey Admitting Unavailable [place], Arnaud Attending Unavailable [facility] Unavailable Ion, Juan Jose Consulting Unavailable [place], [place] Consulting Unavailable [place], Charly Consulting Unavailable [place], Arnaud Consulting Unavailable Paintsil, Downey Admitting Unavailable [place], Charly Attending Unavailable [facility] Unavailable Ion, Juan Jose Consulting Unavailable [place], [place] Consulting Unavailable [place], Charly Consulting Unavailable [place], Arnaud Consulting Unavailable Paintsil, Downey Admitting Unavailable [place], Aurora Attending Unavailable [facility] Unavailable Ion, Juan Jose Consulting Unavailable [place], [place] Consulting Unavailable [place], Charly Consulting Unavailable [place], Arnaud Consulting Unavailable Paintsil, Downey Admitting Unavailable [place], Arnaud Attending Unavailable [facility] Unavailable Ion, Juan Jose Consulting Unavailable [place], [place] Consulting Unavailable [place], Charly Consulting Unavailable Lokesh Pulliam Consulting Unavailable [place], Arnaud Consulting Unavailable Paintsil, Downey Admitting Unavailable [place], Charly Attending Unavailable [facility] Unavailable Ion, Juan Jose Consulting Unavailable [place], [place] Consulting Unavailable [place], Charly Consulting Unavailable Shasha, Lokesh Consulting Unavailable KittoeArnaud Consulting Unavailable Paintsil, Downey Admitting Unavailable [place], Aurora Attending Unavailable [facility] Unavailable Ion, Juan Jose Consulting Unavailable [place], [place] Consulting Unavailable [place], Charly Consulting Unavailable Shasha, Lokesh Consulting Unavailable KittoArnaud gay Consulting Unavailable Paint[place], Downey Admitting Unavailable [place], Charly Attending Unavailable [facility] Unavailable Ion, Juan Jose Consulting Unavailable [place], [place] Consulting Unavailable [place], Charly Consulting Unavailable Shasha, Lokesh Consulting Unavailable [place], Arnaud Consulting Unavailable Paintsil, Downey Admitting Unavailable KittoeArnaud Attending Unavailable [facility] Unavailable Ion, Juan Jose Consulting Unavailable [place], [place] Consulting Unavailable [place], Charly Consulting Unavailable Shasha, Lokesh Consulting Unavailable [place], Arnaud Consulting Unavailable Paintsil, Downey Admitting Unavailable [place], Aurora Attending Unavailable [facility] Unavailable Ion, Juan Jose Consulting Unavailable [place], [place] Consulting Unavailable [place], Charly Consulting Unavailable Shasha, Lokesh Consulting Unavailable [place], Arnaud Consulting Unavailable Paintsil, Downey Admitting Unavailable [place], Arnaud Attending Unavailable [facility] Unavailable Ion, Juan Jose Consulting Unavailable [place], [place] Consulting Unavailable [place], Charly Consulting Unavailable Shasha, Lokesh Consulting Unavailable Kitt[place], Arnaud Consulting Unavailable Paintsil, Downey Admitting Unavailable [place], Aurora Attending Unavailable [facility] Unavailable Juan Jose Lemon Consulting Unavailable [place], [place] Consulting Unavailable [place], Charly Consulting Unavailable Shasha, Lokesh Consulting Unavailable Kittoe, Arnaud Consulting Unavailable Paintsil, Downey Admitting Unavailable Arnaud Lewis Attending Unavailable [facility] Unavailable IonJuan Jose orellana Consulting Unavailable [place], [place] Consulting Unavailable [place], Charly Consulting Unavailable Shasha, Lokesh Consulting Unavailable [place], Arnaud Consulting Unavailable Paintsil, Downey Admitting Unavailable [place], Charly Attending Unavailable [facility] Unavailable Juan Jose Lemon Consulting Unavailable [place], Aurora Consulting Unavailable [place], Charly Consulting Unavailable Shasha, Lokesh Consulting Unavailable KittoeArnaud Consulting Unavailable Paintsil, Downey Admitting Unavailable [place], Aurora Attending Unavailable [facility] Unavailable Juan Jose Lemon Consulting Unavailable [place], Aurora Consulting Unavailable [place], Charly Consulting Unavailable Shasha, Lokesh Consulting Unavailable KittoeArnaud Consulting Unavailable Paintsil, Downey Admitting Unavailable KittoArnaud gay Attending Unavailable [facility] Unavailable IonJuan Jose orellana Consulting Unavailable [place], [place] Consulting Unavailable [place], Charly Consulting Unavailable Shasha, Lokesh Consulting Unavailable KittoeArnaud Consulting Unavailable Paintsil, Downey Admitting Unavailable [place], Charly Attending Unavailable [facility] Unavailable Juan Jose Lemon Consulting Unavailable [place], Aurora Consulting Unavailable [place], Charly Consulting Unavailable Shasha, Lokesh Consulting Unavailable KittoeArnaud Consulting Unavailable Paintsil, Downey Admitting Unavailable [place], Aurora Attending Unavailable [facility] Unavailable Juan Jose Lemon Consulting Unavailable [place], Aurora Consulting Unavailable [place], Charly Consulting Unavailable Shasha, Lokesh Consulting Unavailable Paintsil, Downey Consulting Unavailable Paintsil, Downey Admitting Unavailable [place], Charly Attending Unavailable [facility] Unavailable Juan Jose Lemon Consulting Unavailable [place], Aurora Consulting Unavailable [place], Charly Consulting Unavailable Shasha, Lokesh Consulting Unavailable Paintsil, Downey Consulting Unavailable Paintsil, Downey Admitting Unavailable Paintsil, Downey Attending Unavailable [facility] Unavailable Juan Jose Lemon Consulting Unavailable [place], Aurora Consulting Unavailable [place], Charly Consulting Unavailable Shasha, Lokesh Consulting Unavailable Paintsil, Downey Consulting Unavailable Paintsil, Downey Admitting Unavailable [place], Aurora Attending Unavailable [facility] Unavailable Juan Jose Lemon Consulting Unavailable [place], Aurora Consulting Unavailable [place], Charly Consulting Unavailable Shasha, Lokesh Consulting Unavailable Paintsil, Downey Consulting Unavailable Paintsil, Downey Admitting Unavailable Paintsil, Downey Attending Unavailable [facility] Unavailable Juan Jose Lemon Consulting Unavailable [place], Aurora Consulting Unavailable [place], Charly Consulting Unavailable Shasha, Lokesh Consulting Unavailable Paintsil, Downey Consulting Unavailable Paintsil, Downey Admitting Unavailable [place], Aurora Attending Unavailable [facility] Unavailable Juan Jose Lemon Consulting Unavailable [place], Aurora Consulting Unavailable [place], Charly Consulting Unavailable Shasha, Lokesh Consulting Unavailable Paintsil, Downey Consulting Unavailable Paintsil, Downey Admitting Unavailable Paintsil, Downey Attending Unavailable [facility] Unavailable Juan Jose Lemon Consulting Unavailable [place], [place] Consulting Unavailable [place], Charly Consulting Unavailable Shasha, Lokesh Consulting Unavailable Paintsil, Downey Consulting Unavailable Paintsil, Downey Admitting Unavailable Deborah Knapp PA-C Attending Unavailable [facility] Unavailable Juan Jose Lemon Consulting Unavailable [place], Aurora Consulting Unavailable [place], Charly Consulting Unavailable Shasha, Lokesh Consulting Unavailable White, Kasandra Consulting Unavailable White, Kasandra Attending Unavailable Paintsil, Downey Admitting Unavailable Bueno, [facility] Unavailable Ion, Juan Jose Consulting Unavailable [place], Aurora Consulting Unavailable [place], Charly Consulting Unavailable Shasha, Lokesh Consulting Unavailable White, Kasandra Consulting Unavailable White, Kasandra Attending Unavailable Paintsil, Downey Admitting Unavailable Bueno, Clement Primary Care Unavailable [...] Ghasem Admitting Unavailable [place], Ghasem Attending Unavailable [place], [facility] Unavailable Ion, Juan Jose Consulting Unavailable Perkins, Donnie Consulting Unavailable [place]helf[place], Ghasem Consulting Unavailable [place], Ghasem Admitting Unavailable Ion, Juan Jose Attending Unavailable Bueno, [facility] Unavailable Ion, Juan Jose Consulting Unavailable Perkins, Donnie Consulting Unavailable [place], Ghasem Consulting Unavailable [place], Ghasem Admitting Unavailable [place], Ghasem Attending Unavailable [place], [facility] Unavailable Ion, Juan Jose Consulting Unavailable Perkins, Donnie Consulting Unavailable [place], Ghasem Consulting Unavailable [place], Ghasem Admitting Unavailable Ion, Jua Njose Attending Unavailable Bueno, [facility] Unavailable Ion, Juan Jose Consulting Unavailable Perkins, Donnie Consulting Unavailable [place], Ghasem Consulting Unavailable [place], Ghasem Admitting Unavailable [place], Ghasem Attending Unavailable [place], [facility] Unavailable Ion, Juan Jose [...] Unknown D64.9 - Anemia, Clement Bueno Active [place] unspecified / Community D64.9(ICD-10) Hospital Repository 11/22/2018 Unknown E11.9 - Type 2 Clement Bueno Active [facility] diabetes mellitus Community without complications Hospital / E11.9(ICD-10) Repository 11/22/2018 Unknown E78.5 - Bueno, Clement Active [facility] Hyperlipidemia, Community unspecified / Hospital E78.5(ICD-10) Repository 11/22/2018 Unknown E03.9 - Bueno, Clement Active [place] Hypothyroidism, Community unspecified / Hospital E03.9(ICD-10) Repository 11/08/2018 Unknown J44.9 - Chronic Clement Bueno Active [facility] obstructive pulmonary Community disease, unspecified / Hospital J44.9(ICD-10) Repository 11/03/2018 Unknown T81.89XA - Other Oleghe, Active [facility] complications of [facility] procedures, not Hospital elsewhere classified, Repository initial encounter / T81.89XA(ICD-10) 11/15/2018 Unknown G40.901 - Epilepsy, Eriberto Huang Active [place] unspecified, not Community intractable, with Hospital status epilepticus / Repository G40.901(ICD-10) 09/22/2018 Unknown T81.32XA - Disruption Oleg[place], Active [place] of internal operation [facility] (surgical) wound, not Hospital elsewhere classified, Repository initial encounter / T81.32XA(ICD-10) 09/22/2018 Unknown K63.1 - Perforation of Oleg[place], Active [facility] intestine [facility] (nontraumatic) / Hospital K63.1(ICD-10) Repository 08/20/2018 Unknown S31.109A - Unspecified [place], Active [place] open wound of [facility] abdominal wall, Hospital unspecified quadrant Repository without penetration into peritoneal cavity, initial encounter / S31.109A(ICD-10) 08/16/2018 Unknown R94.31 - Abnormal Nory, [place] Active [place] electrocardiogram Community [ECG] [EKG] / Hospital R94.31(ICD-10) Repository 08/27/2018 Unknown A41.89 - Other IonJuan Jose orellana Active [facility] specified sepsis / Community A41.89(ICD-10) Hospital Repository 08/27/2018 Unknown R65.21 - Severe sepsis IonJuan Jose orellana Active [place] with septic shock / Community R65.21(ICD-10) Hospital Repository 08/27/2018 Unknown J96.01 - Acute Ion, Juan Jose Active [facility] respiratory failure Community with hypoxia / Hospital J96.01(ICD-10) Repository 08/27/2018 Unknown E11.22 - Type 2 Ion, Juan Jose Active [place]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 / Repository E11.22(ICD-10) 08/27/2018 Unknown N18.3 - Chronic kidney Ion, Juan Jose Active [place] disease, stage 3 Community (moderate) / Hospital N18.3(ICD-10) Repository 08/04/2018 Unknown R00.2 - Palpitations / Cornici, Charly Active [place] R00.2(ICD-10) [facility] Hospital Repository 06/23/2018 Unknown 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, Active [place] Atherosclerotic heart [facility] disease of [facility] coronary artery Repository without angina pectoris / I25.10(ICD-10) 06/23/2018 Unknown I47.1 - [place], Active [place] Supraventricular [facility] tachycardia / Hospital I47.1(ICD-10) Repository 06/23/2018 Unknown R06.02 - Shortness of [place], Active [place] breath / [facility] R06.02(ICD-10) Hospital Repository 03/01/2018 Unknown I36.1 - Nonrheumatic [place], Active [place] tricuspid (valve) [facility] insufficiency / Hospital I36.1(ICD-10) Repository 03/01/2018 Unknown I51.81 - Takotsubo [place], Active [place] syndrome / [facility] I51.81(ICD-10) Hospital Repository 03/01/2018 Unknown I34.0 - Nonrheumatic [place], Active [place] mitral (valve) [facility] insufficiency / Hospital I34.0(ICD-10) Repository 04/27/2018 Unknown N17.9 - Acute kidney Tracy Jones Active [facility] failure, unspecified / Community N17.9(ICD-10) Hospital Repository PROCEDURES PROCEDURES No Procedure Records FoundRESULTS RESULTS Observed: 11/23/2018 Status: F Source: [facility] CULTURE, WOUND 3:00 PM [facility] REPOSITORY Comments: WOUND DRAINAGE Gram Stain Gram Stain 2+ Gram positive rods 1+ Gram positive cocci 1+ Gram negative rods Wound Culture ORGANISM 1: Klebsiella pneumoniae sp pneum Amount Growth 3+ ORGANISM 2: Staphylococcus aureus Amount Growth 3+ Klebsiella pneumoniae sp pneum: REACTION Ampicillin $ >=32 R Ampicillin/Sulbactam $ 8 S Cefazolin $ <=4 S Cefepime $ <=0.12 S Ceftazidime *NF <=1 S Ceftriaxone $ <=0.25 S Ciprofloxacin $ <=0.25 S Ertapenim $$$ <=0.12 S ESBL NEG Gentamicin $ <=1 S Imipenem *NF <=0.25 S Levofloxacin $ <=0.12 S Piperacillin/Tazobactam $$ <=4 S Tobramycin $ <=1 S Trimethoprim/Sulfametho $ <=20 S (NF) indicates non-formulary drug at [facility]. Approval by Infectious Disease Specialist required before non-formulary drugs may be ordered and/or dispensed. Staphylococcus aureus: REACTION Cefoxitin *NF NEG Doxycline <=0.5 S Daptomycin $$ 0.25 S Clindamycin $$ >=4 R Inducable Clindamycin [place] NEG Erythromycin $ >=8 R Gentamicin $ <=0.5 S Levofloxacin $ <=0.12 S Linezolid $$$$ 1 S Moxifloxicin *NF <=0.25 S Oxacillin NF 0.5 S Tigecycline $$$$ <=0.12 S Rifampin $$ <=0.5 S Tetracycline NF <=1 S Trimethoprim/Sulfametho $ <=10 S Vancomycin $ <=0.5 S (NF) indicates non-formulary drug at [facility]. Approval by Infectious Disease Specialist required before non-formulary drugs may be ordered and/or dispensed. * CLSI guidelines does not recommend testing of cephalosporins. This interpretation is deduced from Beta-lactam/penicillin results. Performed By: #### M100.1400 #### [facility] [address] [place], [address] BASIC METABOLIC Collected: 11/22/2018 Status: F Source: [place] PROFILE (BMP) 6:15 AM [facility] REPOSITORY TYPE CODE TESTS RESULT OUT OF [...] GAP 7 Performed By: #### L500.2500 #### [facility] [address] [place], [place], [address] CBC-COMPLETE BLOOD CNT Collected: 11/22/2018 Status: F Source: [place] NO DIFF 6:15 AM [facility] REPOSITORY TYPE CODE TESTS RESULT OUT OF [...] MPV 8.9 Performed By: #### [id number] #### [facility] [address] [facility]. [place], [place], [address] BASIC METABOLIC Collected: 11/15/2018 Status: F Source: [place] PROFILE (BMP) 6:50 AM [facility] REPOSITORY Order Comment: 305-1 TYPE CODE TESTS [...] GAP 8 Performed By: #### L500.2500 #### [facility] [address] [place], [address] CBC-COMPLETE BLOOD CNT Collected: 11/15/2018 Status: F Source: [place] NO DIFF 6:50 AM [facility] REPOSITORY TYPE CODE TESTS RESULT OUT OF [...] MPV 9.4 Performed By: #### [id number] #### [facility] [address] [place], [place], [id number] BASIC METABOLIC Collected: 11/08/2018 Status: F Source: [place] PROFILE (BMP) 5:45 AM [facility] REPOSITORY Order Comment: ROOM 305-1 TYPE CODE [...] GAP 8 Performed By: #### L500.2500 #### [facility] [address] [place], [place], [address] CBC-COMPLETE BLOOD CNT Collected: 11/08/2018 Status: F Source: [place] NO DIFF 5:45 AM [facility] REPOSITORY Order Comment: ROOM 305-1 TYPE CODE [...] MPV 9.1 Performed By: #### L100.0500 #### [facility] [address] [place] [address]. [place], [place], [id number] CBC-COMPLETE BLOOD CNT Collected: 11/01/2018 Status: F Source: [place] NO DIFF 5:00 AM [facility] REPOSITORY TYPE CODE TESTS RESULT OUT OF [...] MPV 10.4 Performed By: #### L100.0500 #### [facility] [address] [facility]. [place], [place], [address] BASIC METABOLIC Collected: 11/01/2018 Status: F Source: [place] PROFILE ([facility]) 5:00 AM [facility] REPOSITORY TYPE CODE TESTS RESULT OUT OF [...] GAP 13 Performed By: #### L500.2500 #### [facility] [address] [place], [address] BASIC METABOLIC Collected: 10/25/2018 Status: F Source: [place] PROFILE ([facility]) 6:37 AM [facility] REPOSITORY Order Comment: 408 TYPE CODE TESTS [...] GAP 14 Performed By: #### L500.2500 #### [facility] [address] [place], [place], [address] CBC-COMPLETE BLOOD CNT Collected: 10/25/2018 Status: F Source: [place] NO DIFF 6:37 AM [facility] REPOSITORY Order Comment: 408 TYPE CODE TESTS [...] MPV 10.2 Performed By: #### [id number] #### [facility] [address] [place], [place], [address] CBC-COMPLETE BLOOD CNT Collected: 10/18/2018 Status: F Source: [place] NO DIFF 5:50 AM [facility] REPOSITORY TYPE CODE TESTS RESULT OUT OF [...] MPV 10.4 Performed By: #### L100.0500 #### [facility] [address] [place], [address] BASIC METABOLIC Collected: 10/18/2018 Status: F Source: [place] PROFILE (BMP) 5:50 AM [facility] REPOSITORY TYPE CODE TESTS RESULT OUT OF [...] GAP 11 Performed By: #### L500.2500 #### [facility] [address] [place], [place], [id number] CBC-COMPLETE BLOOD CNT Collected: 10/11/2018 Status: F Source: [place] NO DIFF 5:25 AM [facility] REPOSITORY Order Comment: 408 TYPE CODE TESTS [...] MPV 10.9 Performed By: #### [id number] #### [facility] [address] [place], [place], [id number] BASIC METABOLIC Collected: 10/11/2018 Status: F Source: [place] PROFILE (BMP) 5:25 AM [facility] REPOSITORY Order Comment: 408 TYPE CODE TESTS [...] GAP 11 Performed By: #### [id number] #### [facility] [address] [place], [address] BASIC METABOLIC Collected: 10/04/2018 Status: F Source: [place] PROFILE ([facility]) 5:25 AM [facility] REPOSITORY Order Comment: ROOM 408 TYPE CODE [...] GAP 10 Performed By: #### [id number] #### [facility] [address] [facility]. [place], [place], [id number] CBC-COMPLETE BLOOD CNT Collected: 10/04/2018 Status: F Source: [place] NO DIFF 5:25 AM [facility] REPOSITORY Order Comment: ROOM 408 TYPE CODE [...] MPV 10.5 Performed By: #### [id number] #### [facility] [address] [place], [place], [id number] 12 LEAD ELECTROCARDIOGRAM Observed: 10/01/2018 Status: F Source: [place] 9:08 AM [facility] REPOSITORY [facility] Cardiovascular Services [address] [place] [address] 12 Lead EKG 09/15/18 0823 MR#: [id number] Acct: [id number] Name: Catie WYNN Rep #: [id number] : [id number] 82 From: Markus Cueto MD Attending Dr: Eriberto Huang MD Status: DIS IN Ordering Dr: Franklyn Gates DO Date: 09/15/18 Location: [facility] Sex: F C Admitted: 09/15/18 Test Reason [...] ECG Confirmed by NORY MERCER, MARKUS ([id number]), sound editor SADIQ BUENO ([id number]) on 09/17/2018 3:46:33 PM Referred By: NATE Confirmed By:MARKUS CUETO MD 09/17/18 1546 Date Markus Cueto MD CC: Franklyn Gates DO; Clement Bueno MD; Eriberto Huang MD Signed BASIC METABOLIC Collected: 09/27/2018 Status: F Source: [place] PROFILE (BMP) 6:05 AM [facility] REPOSITORY Order Comment: 408 TYPE CODE TESTS [...] GAP 12 Performed By: #### [id number] #### [facility] [address] [place], [place], [id number] CBC-COMPLETE BLOOD CNT Collected: 09/27/2018 Status: F Source: [place] NO DIFF 6:05 AM [facility] REPOSITORY Order Comment: 408 TYPE CODE TESTS [...] MPV 9.4 Performed By: #### [id number] #### [facility] [address], [place], [address] CBC-COMPLETE BLOOD CNT Collected: 09/22/2018 Status: F Source: [place] NO DIFF 6:25 AM [facility] REPOSITORY Order Comment: ROOM 408 TYPE CODE [...] MPV 10.2 Performed By: #### L100.0500 #### [facility] [address] [place], [address] BASIC METABOLIC Collected: 09/22/2018 Status: F Source: [place] PROFILE (BMP) 6:25 AM [facility] REPOSITORY Order Comment: ROOM 408 TYPE CODE [...] GAP 10 Performed By: #### L500.2500 #### [facility] [address] [facility] 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 Hypothyroidism (Chronic) COPD (chronic obstructive pulmonary disease) (Chronic) Hyperlipidemia (Chronic) Type 2 diabetes mellitus (Chronic) Hospital Course and Treatment Consultations 09/15/18 10:37 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: 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 Routine Comment: Operations: None Summary of Care Provided: [] This is an 82 years old female patient presented to the emergency room from skilled nursing because of status epilepticus, found to have [...] (Auto) 64.1, Lymph % (Auto) 17.3 L, [place] % (Auto) 7.1, Eos % (Auto) 11.1 [...] applicable Code Visit Inpatient E AND M: 44234 Disch Hosp 09/20/18 1524 <Electronically signed by Eriberto Huang MD> Date Eriberto Huang MD Cosigner Signature (if applicable): Date CC: Clement Bueno MD; Eriberto Huang MD Signed TRANSFER TO [facility] Observed: 09/20/2018 Status: F Source: [facility] 9:35 AM [facility] REPOSITORY [facility] Medical Records Department [address] [place] [address] Transfer to [facility] MR#: [id number] Acct: [id number] Name: Catie WYNN Rep #: [id number] : 1935 82 From: Eriberto Huang MD PCP: Clement Bueno MD Status: ADM IN Catie WYNN [id number] (Patient) (Health Ins. Claim No.) (Day of Discharge to Facility) Certification of patient admission REQUIRED AT TIME OF ADMISSION. I CERTIFY THAT POST-HOSPITAL ECF SERVICES ARE REQUIRED TO BE GIVEN ON AN IN-PATIENT BASIS BECAUSE OF THE ABOVE NAMED PATIENT'S NEED FOR [facility] CARE ON A CONTINUING BASIS FOR THE CONDITION(S) FOR WHICH HE/SHE WAS RECEIVING IN-PATIENT HOSPITAL SERVICES PRIOR TO HIS/HER TRANSFER TO THE ECF. 09/20/18 0935 <Electronically signed by Eriberto Huang MD> Date Eriberto Huang MD - Diet 09/17/18 12:14 Diet: Regular Diet Food consistency:: Puree Liquid Consistency:: [place] Thick Dietary Modifications:: Pureed Diet [place] Thick Liquids Is pt able to select [...] diet as tolerated to regular- consistency per DOLL SURGEON. Will provide ONS w/ meals and medpass [...] BEDSIDE GLUCOSE Collected: 09/20/2018 Status: F Source: [place] 6:52 AM [facility] REPOSITORY TYPE CODE TESTS RESULT OUT OF RANGE REFERENCE UNITS LAB L501.080 70-110 mg/dL Normal BEDSIDE GLU 98 Result Comment: MANAGEMENT OF PATIENT CARE PER NURSING PROTOCOL Performed By: #### L501.080 #### [facility] Point of Care [facility] [place] [address] CBC W/DIFF, AUTOMATED Collected: 09/20/2018 Status: F Source: [place] 5:20 AM [facility] REPOSITORY TYPE CODE TESTS RESULT OUT OF [...] Lymph 1.17 Performed By: #### L100.0100 #### [facility] [address] [place], [address] BASIC METABOLIC Collected: 09/20/2018 Status: F Source: [place] PROFILE ([facility]) 5:20 AM [facility] REPOSITORY TYPE CODE TESTS RESULT OUT OF [...] GAP 10 Performed By: #### L500.2500 #### [facility] [address] [place], [address] BEDSIDE GLUCOSE Collected: 09/19/2018 Status: F Source: [place] 9:01 PM [facility] REPOSITORY TYPE CODE TESTS RESULT OUT OF REFERENCE UNITS RANGE LAB L501.080 70-110 mg/dL High BEDSIDE GLU 137 Result Comment: MANAGEMENT OF PATIENT CARE PER NURSING PROTOCOL Performed By: #### L501.080 #### [facility] Point of Care [address] [place] [address] BEDSIDE GLUCOSE Collected: 09/19/2018 Status: F Source: [place] 4:27 PM [facility] REPOSITORY TYPE CODE TESTS RESULT OUT OF REFERENCE UNITS RANGE LAB L501.080 70-110 mg/dL High BEDSIDE GLU 233 Result Comment: MANAGEMENT OF PATIENT CARE PER NURSING PROTOCOL Performed By: #### L501.080 #### [facility] Point of Care [address] [place] [address] BEDSIDE GLUCOSE Collected: 09/19/2018 Status: F Source: [place] 10:44 AM [facility] REPOSITORY TYPE CODE TESTS RESULT OUT OF REFERENCE UNITS RANGE LAB L501.080 70-110 mg/dL High BEDSIDE GLU 172 Result Comment: MANAGEMENT OF PATIENT CARE PER NURSING PROTOCOL Performed By: #### L501.080 #### [facility] Point of Care [address] [place] [address] BEDSIDE GLUCOSE Collected: 09/19/2018 Status: F Source: [place] 7:07 AM [facility] REPOSITORY TYPE CODE TESTS RESULT OUT OF REFERENCE UNITS RANGE LAB L501.080 70-110 mg/dL High BEDSIDE GLU 112 Result Comment: MANAGEMENT OF PATIENT CARE PER NURSING PROTOCOL Performed By: #### L501.080 #### [facility] Point of Care [address] [place], [place] [address] CBC W/DIFF, AUTOMATED Collected: 09/19/2018 Status: F Source: [place] 6:14 AM [facility] REPOSITORY TYPE CODE TESTS RESULT OUT OF [...] Lymph 1.02 Performed By: #### L100.0100 #### [facility] [address] [facility] [address] [place], [place], [address] BASIC METABOLIC Collected: 09/19/2018 Status: F Source: [place] PROFILE (BMP) 6:14 AM [facility] REPOSITORY TYPE CODE TESTS RESULT OUT OF [...] GAP 8 Performed By: #### L500.2500 #### [facility] [address] [facility] [address] [place], [place], [address] BEDSIDE GLUCOSE Collected: 09/18/2018 Status: F Source: [place] 8:59 PM [facility] REPOSITORY TYPE CODE TESTS RESULT OUT OF REFERENCE UNITS RANGE LAB L501.080 70-110 mg/dL High BEDSIDE GLU 331 Result Comment: MANAGEMENT OF PATIENT CARE PER NURSING PROTOCOL Performed By: #### L501.080 #### [facility] Point of Care [address] [place] [address] BEDSIDE GLUCOSE Collected: 09/18/2018 Status: F Source: [place] 5:10 PM [facility] REPOSITORY TYPE CODE TESTS RESULT OUT OF REFERENCE UNITS RANGE LAB L501.080 70-110 mg/dL High BEDSIDE GLU 289 Result Comment: MANAGEMENT OF PATIENT CARE PER NURSING PROTOCOL Performed By: #### L501.080 #### [facility] Point of Care [address] [place] [address] BEDSIDE GLUCOSE Collected: 09/18/2018 Status: F Source: [place] 11:07 AM [facility] REPOSITORY TYPE CODE TESTS RESULT OUT OF REFERENCE UNITS RANGE LAB L501.080 70-110 mg/dL High BEDSIDE GLU 216 Result Comment: MANAGEMENT OF PATIENT CARE PER NURSING PROTOCOL Performed By: #### L501.080 #### [facility] Point of Care [address] [place] [address] PROTHROMBIN TIME W/INR Collected: 09/18/2018 Status: F Source: [place] 8:20 AM [facility] REPOSITORY Order Comment: REDRAW. PREVIOUS SPECIMEN REJECTED DUE TO Hemolyzed/QNS FOR COAG. 09/18/18 06Carlos Bradford. TYPE CODE TESTS RESULT OUT OF RANGE REFERENCE UNITS LAB L300.4150 11.7-14.9 SECONDS High PROTIME 18.0 LAB L300.4200 Normal INR 1.5 Performed By: #### L300.3900 #### [facility] [address] [place], [address] BASIC METABOLIC Collected: 09/18/2018 Status: F Source: [place] PROFILE (BMP) 8:20 AM [facility] REPOSITORY Order Comment: REDRAW. PREVIOUS SPECIMEN REJECTED [...] GAP 14 Performed By: #### L500.2500 #### [facility] [address] [place], [place], [address] TYPE AND SCREEN Collected: 09/18/2018 Status: F Source: [place] 8:20 AM [facility] REPOSITORY Order Comment: CMV NEG? N Number [...] NEGATIVE Screen Performed By: #### B101.7450 #### [facility] [address] [place], [place], [address] RC Collected: 09/18/2018 Status: F Source: [place] 8:20 AM [facility] REPOSITORY TYPE CODE TESTS RESULT OUT OF REFERENCE UNITS RANGE LAB U100.0000 [id number] TRANSFUSED PRODUCT: T AND S with Crossmatch, Red Cells COUNT: 1 Performed By: #### U100.0000 #### [facility] - refer to report for specific site BEDSIDE GLUCOSE Collected: 09/18/2018 Status: F Source: [place] 8:16 AM [facility] REPOSITORY TYPE CODE TESTS RESULT OUT OF REFERENCE UNITS RANGE LAB L501.080 70-110 mg/dL High BEDSIDE GLU 145 Result Comment: MANAGEMENT OF PATIENT CARE PER NURSING PROTOCOL Performed By: #### L501.080 #### [facility] Point of Care [address] [place], [place] [address] CBC W/DIFF, AUTOMATED Collected: 09/18/2018 Status: F Source: [place] 6:40 AM [facility] REPOSITORY Order Comment: SPECIMEN OBTAINED FROM LINE [...] Lymph 0.86 Performed By: #### L100.0100 #### [facility] [address] [place], [address] BEDSIDE GLUCOSE Collected: 09/17/2018 Status: F Source: [place] 11:08 PM [facility] REPOSITORY TYPE CODE TESTS RESULT OUT OF REFERENCE UNITS RANGE LAB L501.080 70-110 mg/dL High BEDSIDE GLU 182 Result Comment: MANAGEMENT OF PATIENT CARE PER NURSING PROTOCOL Performed By: #### L501.080 #### [facility] Point of Care [address] [place] [address] BEDSIDE GLUCOSE Collected: 09/17/2018 Status: F Source: [place] 4:58 PM [facility] REPOSITORY TYPE CODE TESTS RESULT OUT OF REFERENCE UNITS RANGE LAB L501.080 70-110 mg/dL High BEDSIDE GLU 237 Result Comment: MANAGEMENT OF PATIENT CARE PER NURSING PROTOCOL Performed By: #### L501.080 #### [facility] Point of Care [address] [place] [address] BEDSIDE GLUCOSE Collected: 09/17/2018 Status: F Source: [place] 12:27 PM [facility] REPOSITORY TYPE CODE TESTS RESULT OUT OF REFERENCE UNITS RANGE LAB L501.080 70-110 mg/dL High BEDSIDE GLU 166 Result Comment: MANAGEMENT OF PATIENT CARE PER NURSING PROTOCOL Performed By: #### L501.080 #### [facility] Point of Care [address] [place] [address] BRAIN WITHOUT Observed: 09/17/2018 Status: F Source: [place] CONTRAST 7:41 AM [facility] REPOSITORY [facility] Imaging [place] [address] Brain without Contrast MR#: [id number] Acct: [id number] Name: Catie WYNN Rep #: [id number] : 1935 F 82 From: Brandy Bueno MD PCP: Clement Bueno MD Status: ADM IN Study: Brain without Contrast Date of Exam: 09/17/18 Exam# [id number] Ordering Dr: Juan Jose Lemon MD STUDY: [...] Juan Jose Lemon MD; Clement Bueno MD Band Scroll Saw Operator: Signed EMERGENCY DEPARTMENT Observed: 09/17/2018 Status: F Source: [place] SUMMARY 7:05 AM [facility] REPOSITORY [facility] Medical Records Department [address] [place] [address] Emergency Department Summary 09/15/18 0827 MR#: [id number] Acct: [id number] Name: Catie WYNN Rep #: [id number] : 1935 82 From: Franklyn Gates DO PCP: Clement Bueno MD Status: ADM IN - ER Visit Summary Date of Service: 09/15/18 Chief Complaint: Unresponsive History of Present Illness: The patient is a 82 F who at 630 this morning was noted at the skilled nursing by her primary care physician to be [...] doing fine. She is been at the skilled nursing and in the past week was noted [...] using 20 of etomidate for sedation. 16 [place] oral gastric tube was placed. She was [...] 35 minutes This note was generated with HipChatation software. It may contain incorrect words, spelling, [...] your Primary Care Provider. Call [facility] ([phone]) or report to the closest Emergency Room. Call 911 if necessary. 09/17/18 0705 <Electronically signed by Franklyn Gates DO> Date Franklyn Gates DO Cosigner Signature (If Indicated): Date CC: Clement Bueno MD CBC W/DIFF, AUTOMATED Collected: 09/17/2018 Status: F Source: [place] 6:10 AM [facility] REPOSITORY Order Comment: REDRAW. PREVIOUS SPECIMEN REJECTED [...] Lymph 0.71 Performed By: #### L100.0100 #### [facility] [address] [place] [address]. [place], [place], [address] BASIC METABOLIC Collected: 09/17/2018 Status: F Source: [place] PROFILE (BMP) 6:10 AM [facility] REPOSITORY Order Comment: REDRAW. PREVIOUS SPECIMEN REJECTED [...] GAP 11 Performed By: #### L500.2500 #### [facility] [address] [place], [place], [address] BEDSIDE GLUCOSE Collected: 09/17/2018 Status: F Source: [place] 5:54 AM [facility] REPOSITORY TYPE CODE TESTS RESULT OUT OF REFERENCE UNITS RANGE LAB L501.080 70-110 mg/dL High BEDSIDE GLU 204 Result Comment: MANAGEMENT OF PATIENT CARE PER NURSING PROTOCOL Performed By: #### L501.080 #### [facility] Point of Care [address] [place] [address] CBC W/DIFF, AUTOMATED Collected: 09/17/2018 Status: F Source: [place] 4:10 AM [facility] REPOSITORY TYPE CODE TESTS RESULT OUT OF [...] Normal 1+ Performed By: #### L100.0100 #### [facility] [address] [place], [place], [address] BEDSIDE GLUCOSE Collected: 09/16/2018 Status: F Source: [place] 11:14 PM [facility] REPOSITORY TYPE CODE TESTS RESULT OUT OF REFERENCE UNITS RANGE LAB L501.080 70-110 mg/dL High BEDSIDE GLU 173 Result Comment: MANAGEMENT OF PATIENT CARE PER NURSING PROTOCOL Performed By: #### L501.080 #### [facility] Point of Care [address] [place], [place] [address] BEDSIDE GLUCOSE Collected: 09/16/2018 Status: F Source: [place] 5:43 PM [facility] REPOSITORY TYPE CODE TESTS RESULT OUT OF REFERENCE UNITS RANGE LAB L501.080 70-110 mg/dL High BEDSIDE GLU 167 Result Comment: MANAGEMENT OF PATIENT CARE PER NURSING PROTOCOL Performed By: #### L501.080 #### [facility] Point of Care [address] [place] [address] BEDSIDE GLUCOSE Collected: 09/16/2018 Status: F Source: [place] 12:25 PM [facility] REPOSITORY TYPE CODE TESTS RESULT OUT OF REFERENCE UNITS RANGE LAB L501.080 70-110 mg/dL High BEDSIDE GLU 133 Result Comment: MANAGEMENT OF PATIENT CARE PER NURSING PROTOCOL Performed By: #### L501.080 #### [facility] Point of Care [address] [place] [address] ELECTROENCEPHALOGRAM Observed: 09/16/2018 Status: F Source: [place] 12:04 PM [facility] REPOSITORY [facility] Pulmonary Services/Neurology [address] [place] [address] MR#: [id number] Acct: [id number] Name: Catie WYNN Rep #: [id number] : 1935 82 From: Donnie Perkins MD Referring Dr: Mohsen Goncalves Status: ADM IN Ordering Dr: Date: Location: ICU ICU- Sex: F C - Electroencephalogram Date of [...] MD Date Dictated: 09/16/181201 Date Transcribed: 09/16/181201 Band Scroll Saw Operator: NF Signed BLOOD GASES BY CPS Collected: 09/16/2018 Status: F Source: [place] 6:49 AM [facility] REPOSITORY TYPE CODE TESTS RESULT OUT OF [...] ISTAT 98 Performed By: #### L9000.0800 #### [facility] Point of Care [address] [place] [address] CONSULTATION Observed: 09/16/2018 Status: F Source: [place] 5:49 AM [facility] REPOSITORY [facility] Medical Records Department [address] [place] [address] Consultation 09/15/18 1332 MR#: [id number] Acct: [id number] Name: JOE WYNN Rep #: [id number] : 1935 82 From: Juan Jose Lemon [...] Status: Chronic (12) Atherosclerotic heart disease of [place] coronary artery without angina pectoris Status: Chronic Qualifiers: [place] vs. transplanted heart: [place] heart Qualified Code(s): I25.10 - Atherosclerotic heart disease of [place] coronary artery without angina pectoris Comment: Mild [...] medical history listed below, who presented to [facility] on 09/15/2018 after being found unresponsive. 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) I25.10 [...] surgeries Psychiatric History: No pertinent psych hx TALENT MANAGER History: No pertinent TALENT MANAGER history Lives: Group Home Smoking Status: Never smoker Alcohol: None Drugs: [...] AM to 1:45 PM) Code Visit 9xxxx: [id number] Critical care first hour 09/16/18 0549 <Electronically signed by Juan Jose Lemon MD> Date Juan Jose Lemon MD Cosigner Signature (if applicable): Date CC: Juan Jose Lemon MD; Clement Bueno MD; Donnie Perkins MD Signed BEDSIDE GLUCOSE Collected: 09/16/2018 Status: F Source: [place] 5:08 AM [facility] REPOSITORY TYPE CODE TESTS RESULT OUT OF RANGE REFERENCE UNITS LAB L501.080 70-110 mg/dL Normal BEDSIDE GLU 99 Result Comment: MANAGEMENT OF PATIENT CARE PER NURSING PROTOCOL Performed By: #### L501.080 #### [facility] Point of Care [facility] [address] [place], [place] [address] CBC W/DIFF, AUTOMATED Collected: 09/16/2018 Status: F Source: [place] 4:10 AM [facility] REPOSITORY TYPE CODE TESTS RESULT OUT OF [...] Lymph 1.00 Performed By: #### L100.0100 #### [facility] [address] [place], [address] BASIC METABOLIC Collected: 09/16/2018 Status: F Source: [place] PROFILE ([facility]) 4:10 AM [facility] REPOSITORY TYPE CODE TESTS RESULT OUT OF [...] GAP 10 Performed By: #### L500.2500 #### [facility] [address] [place], [place], [address] BEDSIDE GLUCOSE Collected: 09/16/2018 Status: F Source: [place] 3:32 AM [facility] REPOSITORY TYPE CODE TESTS RESULT OUT OF RANGE REFERENCE UNITS LAB L501.080 70-110 mg/dL Normal BEDSIDE GLU 98 Result Comment: MANAGEMENT OF PATIENT CARE PER NURSING PROTOCOL Performed By: #### L501.080 #### [facility] Point of Care [address] [facility] [place] [address] BEDSIDE GLUCOSE Collected: 09/16/2018 Status: F Source: [place] 3:05 AM [facility] REPOSITORY TYPE CODE TESTS RESULT OUT OF REFERENCE UNITS RANGE LAB L501.080 70-110 mg/dL Low BEDSIDE GLU 66 Result Comment: MANAGEMENT OF PATIENT CARE PER NURSING PROTOCOL Performed By: #### L501.080 #### [facility] Point of Care [address] [place] [address] BEDSIDE GLUCOSE Collected: 09/15/2018 Status: F Source: [place] 11:59 PM [facility] REPOSITORY TYPE CODE TESTS RESULT OUT OF RANGE REFERENCE UNITS LAB L501.080 70-110 mg/dL Normal BEDSIDE GLU 78 Result Comment: MANAGEMENT OF PATIENT CARE PER NURSING PROTOCOL Performed By: #### L501.080 #### [facility] Point of Care [address] [place] [address] BEDSIDE GLUCOSE Collected: 09/15/2018 Status: F Source: [place] 11:28 PM [facility] REPOSITORY TYPE CODE TESTS RESULT OUT OF REFERENCE UNITS RANGE LAB L501.080 70-110 mg/dL Low BEDSIDE GLU 51 Result Comment: MANAGEMENT OF PATIENT CARE PER NURSING PROTOCOL Performed By: #### L501.080 #### [facility] Point of Care [address] [place] [address] BEDSIDE GLUCOSE Collected: 09/15/2018 Status: F Source: [place] 5:45 PM [facility] REPOSITORY TYPE CODE TESTS RESULT OUT OF RANGE REFERENCE UNITS LAB L501.080 70-110 mg/dL Normal BEDSIDE GLU 82 Result Comment: MANAGEMENT OF PATIENT CARE PER NURSING PROTOCOL Performed By: #### L501.080 #### [facility] Point of Care [address] [place] [address] HISTORY AND PHYSICAL Observed: 09/15/2018 Status: F Source: [place] EXAM 2:06 PM [facility] REPOSITORY [facility] Medical Records Department [address] [place] [address] History and Physical 09/15/18 1044 MR#: [id number] Acct: [id number] Name: JIMENEZ WYNN Rep #: [id number] : 1935 82 From: Mohsen Goncalves MD [...] Status: Chronic (9) Atherosclerotic heart disease of [place] coronary artery without angina pectoris Status: Chronic Qualifiers: [place] vs. transplanted heart: [place] heart Qualified Code(s): I25.10 - Atherosclerotic heart disease of [place] coronary artery without angina pectoris Comment: Mild [...] presented to the emergency room from the skilled nursing because of continuous seizure. At this time, [...] the bedside who is the power of claims attorney. 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 This note was generated with [employer] dictation software. It may contain incorrect words, spelling, and punctuation that were not noted in checking the note before signing. Code Visit Inpatient Yamilet SCHILLING M: [id number] Init Hosp L3 09/15/18 1406 <Electronically signed by Mohsen Goncalves MD> Date Mohsen Goncalves MD Cosigner Signature: Date (if applicable) CC: Mohsen Goncalves; Clement Bueno MD Signed LACTIC ACID Collected: 09/15/2018 Status: F Source: [place] 12:30 PM [facility] REPOSITORY Order Comment: Yes/No query for Sepsis Lactate Rule Y TYPE CODE TESTS RESULT OUT OF RANGE REFERENCE UNITS LAB L503.6005 0.4-2.0 mmol/L Normal LACTIC ACID 1.5 Performed By: #### L503.6005 #### [facility] [address] [facility] [place], [address] BEDSIDE GLUCOSE Collected: 09/15/2018 Status: F Source: [place] 12:19 PM [facility] REPOSITORY TYPE CODE TESTS RESULT OUT OF REFERENCE UNITS RANGE LAB L501.080 70-110 mg/dL High BEDSIDE GLU 162 Result Comment: MANAGEMENT OF PATIENT CARE PER NURSING PROTOCOL Performed By: #### L501.080 #### [facility] Point of Care [address] [facility] [place] [address] CONSULTATION Observed: 09/15/2018 Status: F Source: [place] 11:38 AM [facility] REPOSITORY [facility] Medical Records Department [address] [place] [address] [place] [address] Consultation 09/15/18 1000 MR#: [id number] Acct: [id number] Name: JIMENEZ WYNN Rep #: [id number] : 1935 82 From: Donnie Perkins MD PCP: Clement Bueno MD Status: ADM IN Y Location: ICU ICU02-1 Reason for Consult Date of Consultation: 09/15/18 Reason for Consultation: status epilepticus History of Present Illness: The patient is a 82 year old F admitted from skilled nursing with status epilepticus as below. Is now [...] 630 this morning was noted at the skilled nursing by her primary care physician to be [...] doing fine. 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 Performed By: #### M200.1000 #### [facility] [address] [place], [place], [address] BLOOD GASES BY CPS Collected: 09/15/2018 Status: F Source: GISSEL 8:32 AM [facility] REPOSITORY TYPE CODE TESTS RESULT OUT OF [...] ISTAT 97 Performed By: #### L9000.0800 #### [facility] Point of Care [address] [place], [place] [address] URINE DRUG SCREEN Collected: 09/15/2018 Status: F Source: GISSEL (VISTA) 8:05 AM [facility] REPOSITORY TYPE CODE TESTS RESULT OUT OF [...] Normal NEGATIVE Performed By: #### L505.5000 #### [facility] [address] [place], [address] URINALYSIS, COMPLETE Collected: 09/15/2018 Status: F Source: GISSEL 8:05 AM [facility] REPOSITORY Order Comment: Microscopic field is filled. [...] URINE SEEN Performed By: #### L400.0001 #### [facility] [address] [place], [address] Observed: 09/15/2018 Status: F Source: [place] CULTURE, URINE 8:05 AM [facility] REPOSITORY Urine Culture Further studies to follow. ORGANISM 1: Laila albicans [place] Count >100,000 Performed By: #### M100.0650 #### [facility] [address] [place], [address] CHEST 1 VIEW Observed: 09/15/2018 Status: F Source: [place]ISSEL (PORTABLE) 8:04 AM [facility] REPOSITORY [facility] Imaging Services [address] [place] [address] Chest 1 View (Portable) MR#: [id number] Acct: [id number] Name: JIMENEZ WYNN Rep #: [id number] : 1935 F 82 From: Brandy Bueno MD PCP: Clement Bueno MD Status: REG ER Study: Chest 1 View (Portable) Date of Exam: 09/15/18 Exam# [id number] Ordering Dr: Franklyn Gates DO STUDY: X-RAY [...] CC: Franklyn Gates DO; Clement Bueno MD Band Scroll Saw Operator: Signed BRAIN/HEAD WITHOUT Observed: 09/15/2018 Status: F Source: [place] CONTRAST 8:04 AM [facility] REPOSITORY [facility] Imaging Services [address] [place] [address] Brain/Head without Contrast MR#: [id number] Acct: [id number] Name: JIMENEZ WYNN Rep #: [id number] : 1935 F 82 From: Brandy Bueno MD PCP: Clement Bueno MD Status: REG ER Study: Brain/Head without Contrast Date of Exam: 09/15/18 Exam# [id number] Ordering Dr: Franklyn Gates DO STUDY: CT [...] CC: Franklyn Gates DO; Clement Bueno MD Band Scroll Saw Operator: Signed CBC W/DIFF, AUTOMATED Collected: 09/15/2018 Status: F Source: [place] 8:00 AM [facility] REPOSITORY TYPE CODE TESTS RESULT OUT OF [...] Lymph 2.05 Performed By: #### L100.0100 #### [facility] [address] [place], [place], [address] PROTHROMBIN TIME W/INR Collected: 09/15/2018 Status: F Source: [place] 8:00 AM [facility] REPOSITORY TYPE CODE TESTS RESULT OUT OF RANGE REFERENCE UNITS LAB L300.4150 11.7-14.9 SECONDS High PROTIME 16.8 LAB L300.4200 Normal INR 1.4 Performed By: #### L300.3900, L300.4310 #### [facility] [address] [place], [place], [address] PARTIAL THROMBOPLAST Collected: 09/15/2018 Status: F Source: [place] TIME 8:00 AM [facility] REPOSITORY TYPE CODE TESTS RESULT OUT OF RANGE REFERENCE UNITS LAB L300.4310 24.1-36.2 Seconds Normal PTT 28.1 Performed By: #### L300.3900, L300.4310 #### [facility] [address] [place], [address] COMPREHENSIVE METABOLIC Collected: 09/15/2018 Status: F Source: [place] [facility] 8:00 AM [facility] REPOSITORY TYPE CODE TESTS RESULT OUT OF [...] Performed By: #### L500.4050, L501.2450, L501.4010 #### [facility] [address] [place], [address] LIPASE Collected: 09/15/2018 Status: F Source: [place] 8:00 AM [facility] REPOSITORY TYPE CODE TESTS RESULT OUT OF RANGE REFERENCE UNITS LAB L501.2450 73-393 U/L Normal LIPASE 96 Performed By: #### L500.4050, L501.2450, L501.4010 #### [facility] [address] [place], [place], [address] TROPONIN-I Collected: 09/15/2018 Status: F Source: [place] 8:00 [facility] REPOSITORY TYPE CODE TESTS RESULT OUT OF RANGE REFERENCE UNITS LAB L501.4010 <0.045 ng/mL Normal < 0.015 TROPONIN-I Result Comment: TROPONIN-I EXPECTED VALUES <0.045 Negative 0.045 - 0.590 Consistent with Cardiac Damage > OR = 0.600 Critical Value Not every elevated troponin is indicative of MO. These values should be used with clinical judgement in examining the patient's clinical picture for diagnosis. To establish a diagnosis of MO versus myocardial injury, there must be a demonstrated rise and/or fall in the troponin values, in addition to ischemic symptoms, EKG changes, new regional wall motion abnormality, and/or angiographical evidence. PLEASE NOTE: REFERENCE RANGES EDITED 18 Performed By: #### L500.4050, L501.2450, L501.4010 #### [facility] [address] [place], [place], [address] LACTIC ACID Collected: 09/15/2018 Status: F Source: [place] 8:00 AM [facility] REPOSITORY Order Comment: Yes/No query for Sepsis Lactate Rule Y TYPE CODE TESTS RESULT OUT OF REFERENCE UNITS RANGE LAB L503.6005 0.4-2.0 mmol/L High alert LACTIC ACID 6.3 Result Comment: Critical Result(s) Called at: 08:50:58 09/15/2018 by: Lachelle Francisco Performed By: #### L503.6005 #### [facility] [address] [place], [address] ALCOHOL, BLOOD Collected: 09/15/2018 Status: F Source: [place]ISSEL (MEDICAL)-SERUM 8:00 AM [facility] REPOSITORY TYPE CODE TESTS RESULT OUT OF [...] fatal coma Performed By: #### L501.9100 #### [facility] [address] [place], [address] Observed: 09/15/2018 Status: F Source: [place] CULTURE, BLOOD (WB) 8:00 AM [facility] REPOSITORY BC No growth in 5 days. Performed By: #### M200.1000 #### [facility] [address] [place], [address] BASIC METABOLIC Collected: 09/15/2018 Status: F Source: [place] PROFILE (BMP) 6:25 AM [facility] REPOSITORY Order Comment: RM 408 TYPE CODE [...] GAP 12 Performed By: #### L500.2500 #### [facility] [address] [place], [place], [id number] CBC-COMPLETE BLOOD CNT Collected: 09/13/2018 Status: F Source: [place] NO DIFF 5:20 AM [facility] REPOSITORY TYPE CODE TESTS RESULT OUT OF [...] MPV 9.9 Performed By: #### L100.0500 #### [facility] [address] [place], [place], [address] BASIC METABOLIC Collected: 09/13/2018 Status: F Source: [place] PROFILE (BMP) 5:20 AM [facility] REPOSITORY TYPE CODE TESTS RESULT OUT OF [...] GAP 9 Performed By: #### L500.2500 #### [facility] [address] [place], [address] BASIC METABOLIC Collected: 09/10/2018 Status: F Source: [place] PROFILE (BMP) 6:10 AM [facility] REPOSITORY Order Comment: 408 TYPE CODE TESTS [...] GAP 11 Performed By: #### L500.2500 #### [facility] [address] [place], [place], [address] CBC-COMPLETE BLOOD CNT Collected: 09/10/2018 Status: F Source: [place] NO DIFF 6:10 AM [facility] REPOSITORY Order Comment: 408 TYPE CODE TESTS [...] MPV 10.1 Performed By: #### L100.0500 #### [facility] [address] [facility] [place], [place], [address] CBC W/DIFF, AUTOMATED Collected: 09/08/2018 Status: F Source: [place] 5:30 AM [facility] REPOSITORY Order Comment: RM 408 TYPE CODE [...] Lymph 1.05 Performed By: #### L100.0100 #### [facility] [place], [address] BASIC METABOLIC Collected: 09/08/2018 Status: F Source: [place] PROFILE (BMP) 5:30 AM [facility] REPOSITORY Order Comment: RM 408 TYPE CODE [...] GAP 12 Performed By: #### L500.2500 #### [facility] [address] [place], [address] CBC-COMPLETE BLOOD CNT Collected: 09/06/2018 Status: F Source: [place] NO DIFF 9:30 AM [facility] REPOSITORY Order Comment: 408 TYPE CODE TESTS [...] MPV 10.2 Performed By: #### L100.0500 #### [facility] [address] [place], [place], [address] BASIC METABOLIC Collected: 09/06/2018 Status: F Source: [place] PROFILE (BMP) 9:30 AM [facility] REPOSITORY Order Comment: 408 TYPE CODE TESTS [...] GAP 13 Performed By: #### L500.2500 #### [facility] [address] [place], [address] URINALYSIS, ROUTINE Collected: 09/03/2018 Status: F Source: [place] (DIPSTICK) 12:01 AM [facility] REPOSITORY Order Comment: How was Urine Obtained? [...] 25 ESTERASE Performed By: #### L400.2011 #### [facility] [address] [facility] [place], [address] Observed: 09/03/2018 Status: F Source: [place] CULTURE, URINE 12:01 AM [facility] REPOSITORY Urine Culture Culture exhibits no growth. Performed By: #### M100.0650 #### [facility] [address] [facility] [place], [address] CBC W/DIFF, AUTOMATED Collected: 08/31/2018 Status: F Source: [place] 5:35 AM [facility] REPOSITORY Order Comment: 408 TYPE CODE TESTS [...] 1+ Normal Performed By: #### L100.0100 #### [facility] [address] [place], [address] BASIC METABOLIC Collected: 08/31/2018 Status: F Source: [place] PROFILE ([facility]) 5:35 AM [facility] REPOSITORY Order Comment: 408 TYPE CODE TESTS [...] GAP 11 Performed By: #### L500.2500 #### [facility] [address] [place], [address] SURGERY VISIT REPORT Observed: 08/30/2018 Status: F Source: [place] 2:22 PM [facility] REPOSITORY [facility] [address] [place] [address] OFFICE VISIT Date of Service: 08/30/18 MR#: [id number] Acct: [id number] Name: JIMENEZ WYNN Rep #: [id number] : 1935 Provider: Aurora Young MD Age/Sex: 82/F Location: 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 We will also recheck a CBC with differential today to see if the platelets of 84 are real. Aurora Young M.D. Pager: [phone] [facility] [address] [place] [address], [address] [place] [address] Office: [phone] Plan Detail Follow Up 2 Weeks Coding Level of Care Code Global Post Op Diagnoses S/P colectomy Z90.49 Wound infection T14.8XXA; L08.9 Large bowel perforation K63.1 08/30/18 1422 <Electronically signed by Aurora Young MD> Date Aurora Young MD Cosigner Signature: Date (if applicable) CC: Clement Bueno MD WOUND CTR HISTORY Observed: 08/30/2018 Status: F Source: [place] AND PHYSICAL 1:10 PM [facility] REPOSITORY [facility] [address] [place] [address] Wound Ctr History AND Physical 08/25/18 1245 MR#: [id number] Acct: [id number] Name: JIMENEZ WYNN Rep #: [id number] : 1935 82 From: Ousmane Almanza MD PCP: Clement Bueno MD Status: REG RCR Y Location: (1) Nonhealing nonsurgical wound with fat layer [...] had surgery and was discharged to a skilled nursing facility however in the facility she had [...] (valve) insufficiency (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 [...] Recorded Levothyroxine [Synthroid] 25 mcg PO DAILY@0600 0722/16 - Family History Maternal Family History: Family [...] Skin: Ulcer/ Wound Wound Measurements and Assessment - Nurse 1 - General Ulcer Measurement Start: 08/25/18 09:05 Freq: Status: Active Protocol: Activity Type Activity Date Activity User E-Sign Co-Sign Detail Recorded Client Recorded Date Recorded By Document 08/25/18 09:14 DL [id number] 08/25/18 09:34 DL Wound Center Nurse 1 - Nurse 2 - General Ulcer CM Notes Start: 08/25/18 09:05 Freq: Status: Active Protocol: Activity Type Activity Date Activity User E-Sign Co-Sign Detail Recorded Client Recorded Date Recorded By Document 08/25/18 10:07 MW [id number] 08/25/18 10:17 MW Wound Center Nurse 2 [Procedure/Treatment] Neurological: Cranial nerves II-XII grossly intact Psych/Mental Status: Normal Affect Debridement Note Post-Debridement Measurements/Treatment WC - Nurse 2 - General Ulcer CM Notes Start: 08/25/18 09:05 Freq: Status: Active Protocol: Activity Type Activity Date Activity User E-Sign Co-Sign Detail Recorded Client Recorded Date Recorded By Document 08/25/18 10:07 MW [id number] 08/25/18 10:17 MW Wound Center Nurse 2 [...] a wound VAC. Orders sent to her skilled nursing. In the meantime Aquacel extra with Adaptic over top. Change daily. Increased protein intake strongly recommended. Continue antibiotics per recommendation. All the questions were answered and they were asked to call with any further questions or concerns. Follow-up in 1 week. This note was generated with [employer] dictation software. It may contain incorrect words, spelling, and punctuation that were not noted in checking the note before signing. 08/30/18 1310 <Electronically signed by Ousmane Almanza MD> Date Ousmane Almanza MD CC: Signed CBC-COMPLETE BLOOD CNT Collected: 08/30/2018 Status: F Source: [place] NO DIFF 5:35 AM [facility] REPOSITORY Order Comment: 408 TYPE CODE TESTS [...] MPV 10.3 Performed By: #### L100.0500 #### [facility] [address] [place], [address] BASIC METABOLIC Collected: 08/30/2018 Status: F Source: [place] PROFILE (BMP) 5:35 AM [facility] REPOSITORY Order Comment: 408 TYPE CODE TESTS [...] GAP 9 Performed By: #### L500.2500 #### [facility] [address] [facility]. [place], [place], [address] CBC-COMPLETE BLOOD CNT Collected: 08/28/2018 Status: F Source: [place] NO DIFF 6:15 AM [facility] REPOSITORY TYPE CODE TESTS RESULT OUT OF [...] MPV 9.9 Performed By: #### L100.0500 #### [facility] [address] [facility] [place], [place], [address] BASIC METABOLIC Collected: 08/28/2018 Status: F Source: [place] PROFILE (BMP) 6:15 AM [facility] REPOSITORY TYPE CODE TESTS RESULT OUT OF [...] GAP 8 Performed By: #### L500.2500 #### [facility] [address] [facility] [place], [address] SURGERY VISIT REPORT Observed: 08/23/2018 Status: F Source: [place] 10:01 AM [facility] REPOSITORY [facility] [address] [facility] [place] [address] OFFICE VISIT Date of Service: 08/20/18 MR#: [id number] Acct: [id number] Name: JIMENEZ WYNN Rep #: [id number] : 1935 Provider: Aurora Young MD Age/Sex: 82/F Location: 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 Discussed with patient that she does need to drink boost 4 times a day even though she is not hungry as well as eat a portion of her meals to help with wound healing and strength. Discussed with the patient and family and also called [facility] and discussed with them the need for wet-to-dry dressings twice daily not just daily plan for a follow-up on August 30. Patient is also scheduled to follow- up with wound center next week on Thursday. Aurora Young M.D. Pager: [phone] [facility] [address] [place] [address], [facility], [address] [place] [address] Office: [phone] Orders Orders: Plan Detail Follow Up 1-2 weeks Coding Level of Care Code Global Post Op Diagnoses S/P colectomy Z90.49 Large bowel perforation K63.1 Wound infection T14.8XXA; L08.9 08/23/18 1001 <Electronically signed by Aurora Young MD> Date Aurora Young MD Cosigner Signature: Date (if applicable) CC: Clement Bueno MD CBC-COMPLETE BLOOD CNT Collected: 08/23/2018 Status: F Source: [place] NO DIFF 6:00 AM [facility] REPOSITORY Order Comment: 408 TYPE CODE TESTS [...] MPV 9.4 Performed By: #### L100.0500 #### [facility] [address] [place], [address] BASIC METABOLIC Collected: 08/23/2018 Status: F Source: [place] PROFILE (BMP) 6:00 AM [facility] REPOSITORY Order Comment: 408 TYPE CODE TESTS [...] GAP 11 Performed By: #### L500.2500 #### [facility] [address] [facility] [place], [address] Observed: 08/20/2018 Status: F Source: [place] CULTURE, DEEP WOUND 1:10 PM [facility] REPOSITORY Gram Stain Gram Stain 2+ White [...] <=1 S (NF) indicates non-formulary drug at [facility]. Approval by Infectious Disease Specialist [...] <=20 S (NF) indicates non-formulary drug at [facility]. Approval by Infectious Disease Specialist [...] <=20 S (NF) indicates non-formulary drug at [facility]. Approval by Infectious Disease Specialist required before non-formulary drugs may be ordered and/or dispensed. Cult, Anaerobic No anaerobic bacteria isolated. Performed By: #### M100.1500 #### [facility] [address] [place], [address] CBC-COMPLETE BLOOD CNT Collected: 08/16/2018 Status: F Source: [place] NO DIFF 6:20 AM [facility] REPOSITORY TYPE CODE TESTS RESULT OUT OF [...] MPV 9.2 Performed By: #### L100.0500 #### [facility] [place], [address] BASIC METABOLIC Collected: 08/16/2018 Status: F Source: [place] PROFILE (BMP) 6:20 AM [facility] REPOSITORY TYPE CODE TESTS RESULT OUT OF [...] GAP 7 Performed By: #### L500.2500 #### [facility] [address] [place], [address] COMPREHENSIVE METABOLIC Collected: 08/11/2018 Status: F Source: [facility] 7:25 AM [facility] REPOSITORY TYPE CODE TESTS RESULT OUT OF [...] GAP 9 Performed By: #### L500.4050 #### [facility] [place], [address] CBC W/DIFF, AUTOMATED Collected: 08/11/2018 Status: F Source: [place] 7:25 AM [facility] REPOSITORY TYPE CODE TESTS RESULT OUT OF [...] Lymph 0.67 Performed By: #### L100.0100 #### [facility] [address] [place], [place], [address] BASIC METABOLIC Collected: 08/09/2018 Status: F Source: [place] PROFILE (BMP) 5:40 AM [facility] REPOSITORY Order Comment: 408 TYPE CODE TESTS [...] GAP 8 Performed By: #### L500.2500 #### [facility] [address] [facility] [place], [place], [address] CBC-COMPLETE BLOOD CNT Collected: 08/09/2018 Status: F Source: [place] NO DIFF 5:40 AM [facility] REPOSITORY Order Comment: 408 TYPE CODE TESTS [...] MPV 9.6 Performed By: #### L100.0500 #### [facility] [address] [place], [address] Observed: 08/09/2018 Status: F Source: [place] CDIFF (MOLECULAR) 3:30 AM [facility] REPOSITORY Comments: SAMPLE FROM COLOSTOMY BAG Cdiff-Molecular Normal Reference Range = Negative C. Diff DNA Negative- No toxigenic C. Diff DNA Detected NAAT METHOD Testing was performed using nucleic acid amplification Performed By: #### M100.6796 #### [facility] [address] [place], [address] DISCHARGE SUMMARY Observed: 08/06/2018 Status: F Source: [place] 2:27 PM [facility] REPOSITORY [facility] Medical Records Department [address] [place] [address] Discharge Summary 08/06/18 1357 MR#: [id number] Acct: [id number] Name: JIMENEZ WYNN Rep #: [id number] : 1935 82 From: King MORRISON PCP: Clement Bueno MD Status: DIS IN Y Location: [place] [address] ADDENDUM by Kasandra Almendarez on 08/06/18 at [...] SVT, Takotsubo Cardiomyopathy who presented to the [facility] ED on 07/20/18 w/ history of paresis, [...] primary care physician in addition to her Dust Collector Ore Crushing within 2 weeks, Surgery within 1 week [...] hospital summary above. 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 She [...] severely debilitated. She will continue to need senior living with PT OT and ST. She needs ongoing ostomy care. She is now in stable condition and being discharged back to senior living. She will need to follow-up with general [...] Charly Ross MD When: 2 weeks Disposition: Long-Term facility Minutes spent on discharge:: 40 Patient [...] BEDSIDE GLUCOSE Collected: 08/06/2018 Status: F Source: [place] 12:52 PM [facility] REPOSITORY TYPE CODE TESTS RESULT OUT OF REFERENCE UNITS RANGE LAB L501.080 70-110 mg/dL High BEDSIDE GLU 221 Result Comment: MANAGEMENT OF PATIENT CARE PER NURSING PROTOCOL Performed By: #### L501.080 #### [facility] Point of Care [address] [place] [address] TRANSFER TO [facility] Observed: 08/06/2018 Status: F Source: [place] CARE 11:53 AM [facility] REPOSITORY [facility] Medical Records Department [address] [place] [address] Transfer to Extended Care MR#: [id number] Acct: [id number] Name: JIMENEZ WYNN Rep #: [id number] : 1935 82 From: King MORRISON PCP: Clement Bueno MD Status: ADM IN JIMENEZ WYNN (Patient) (Health Ins. Claim No.) (Day of Discharge to Facility) Certification of patient admission REQUIRED AT TIME OF ADMISSION. I CERTIFY THAT POST-HOSPITAL ECF SERVICES ARE REQUIRED TO BE GIVEN ON AN IN-PATIENT BASIS BECAUSE OF THE ABOVE NAMED PATIENT'S NEED FOR [facility] CARE ON A CONTINUING BASIS FOR THE CONDITION(S) FOR WHICH HE/SHE WAS RECEIVING IN-PATIENT HOSPITAL SERVICES PRIOR TO HIS/HER TRANSFER TO THE F. 08/06/18 1139 <Electronically signed by King MORRISON> [...] Visit: Yes (8) Atherosclerotic heart disease of [place] coronary artery without angina pectoris Status: Chronic [...] 120 mL 4x/day w/ medpass- consistency per DOLL SURGEON. - Follow Up Care Primary Care Physician: [...] 08/06/2018 Status: F Source: [place] 6:32 AM [facility] REPOSITORY TYPE CODE TESTS RESULT OUT OF REFERENCE UNITS RANGE LAB L501.080 70-110 mg/dL High BEDSIDE GLU 186 Result Comment: MANAGEMENT OF PATIENT CARE PER NURSING PROTOCOL Performed By: #### L501.080 #### [facility] [place] [place] Laboratory Point of Care [facility] [address]wiger[address] Chauhan [place] [id number] CBC-COMPLETE BLOOD CNT Collected: 08/06/2018 Status: F Source: [place] NO DIFF 5:45 AM [facility] REPOSITORY Order Comment: SPECIMEN OBTAINED FROM LINE [...] MPV 9.0 Performed By: #### L100.0500 #### [facility] [address] [place], [address] BASIC METABOLIC Collected: 08/06/2018 Status: F Source: [place] PROFILE (BMP) 5:45 AM [facility] REPOSITORY Order Comment: SPECIMEN OBTAINED FROM LINE [...] GAP 8 Performed By: #### L500.2500 #### [facility] [address] [place], [address] BEDSIDE GLUCOSE Collected: 08/05/2018 Status: F Source: [place] 9:02 PM [facility] REPOSITORY TYPE CODE TESTS RESULT OUT OF REFERENCE UNITS RANGE LAB L501.080 70-110 mg/dL High BEDSIDE GLU 153 Result Comment: MANAGEMENT OF PATIENT CARE PER NURSING PROTOCOL Performed By: #### L501.080 #### [facility] Point of Care [address] [place] [address] BEDSIDE GLUCOSE Collected: 08/05/2018 Status: F Source: [place] 5:28 PM [facility] REPOSITORY TYPE CODE TESTS RESULT OUT OF REFERENCE UNITS RANGE LAB L501.080 70-110 mg/dL High BEDSIDE GLU 179 Result Comment: MANAGEMENT OF PATIENT CARE PER NURSING PROTOCOL Performed By: #### L501.080 #### [facility] Point of Care [address] [place] [address] BEDSIDE GLUCOSE Collected: 08/05/2018 Status: F Source: [place] 11:33 AM [facility] REPOSITORY TYPE CODE TESTS RESULT OUT OF REFERENCE UNITS RANGE LAB L501.080 70-110 mg/dL High BEDSIDE GLU 190 Result Comment: MANAGEMENT OF PATIENT CARE PER NURSING PROTOCOL Performed By: #### L501.080 #### [facility] Point of Care [address] [place] [address] BEDSIDE GLUCOSE Collected: 08/05/2018 Status: F Source: [place] 5:22 AM [facility] REPOSITORY TYPE CODE TESTS RESULT OUT OF REFERENCE UNITS RANGE LAB L501.080 70-110 mg/dL High BEDSIDE GLU 134 Result Comment: MANAGEMENT OF PATIENT CARE PER NURSING PROTOCOL Performed By: #### L501.080 #### [facility] Point of Care [address] [place], [place] [id number] (570) BEDSIDE GLUCOSE Collected: 08/04/2018 Status: F Source: [place] 11:05 PM [facility] REPOSITORY TYPE CODE TESTS RESULT OUT OF REFERENCE UNITS RANGE LAB L501.080 70-110 mg/dL High BEDSIDE GLU 143 Result Comment: MANAGEMENT OF PATIENT CARE PER NURSING PROTOCOL Performed By: #### L501.080 #### [facility] Point of Care [address] [place] [address] BEDSIDE GLUCOSE Collected: 08/04/2018 Status: F Source: [place] 5:00 PM [facility] REPOSITORY TYPE CODE TESTS RESULT OUT OF REFERENCE UNITS RANGE LAB L501.080 70-110 mg/dL High BEDSIDE GLU 152 Result Comment: MANAGEMENT OF PATIENT CARE PER NURSING PROTOCOL Performed By: #### L501.080 #### [facility] Point of Care [address] [place] [address] BEDSIDE GLUCOSE Collected: 08/04/2018 Status: F Source: [place] 11:55 AM [facility] REPOSITORY TYPE CODE TESTS RESULT OUT OF REFERENCE UNITS RANGE LAB L501.080 70-110 mg/dL High BEDSIDE GLU 182 Result Comment: MANAGEMENT OF PATIENT CARE PER NURSING PROTOCOL Performed By: #### L501.080 #### [facility] Point of Care [address] [place] [address] Observed: 08/04/2018 Status: F Source: [place] CULTURE, WOUND 8:50 AM [facility] REPOSITORY Comments: abdominal wound Gram Stain Gram [...] 160 R (NF) indicates non-formulary drug at [facility]. Approval by Infectious Disease Specialist required before non-formulary drugs may be ordered and/or dispensed. Performed By: #### M100.1400 #### [facility] [address] [facility]. [place], [place], [address] BEDSIDE GLUCOSE Collected: 08/04/2018 Status: F Source: [place] 5:16 AM [facility] REPOSITORY TYPE CODE TESTS RESULT OUT OF REFERENCE UNITS RANGE LAB L501.080 70-110 mg/dL High BEDSIDE GLU 159 Result Comment: MANAGEMENT OF PATIENT CARE PER NURSING PROTOCOL Performed By: #### L501.080 #### [facility] Point of Care [address] [facility] [place], [place] [address] BASIC METABOLIC Collected: 08/04/2018 Status: F Source: [place] PROFILE (BMP) 4:30 AM [facility] REPOSITORY TYPE CODE TESTS RESULT OUT OF [...] GAP 7 Performed By: #### L500.2500 #### [facility] [address] [facility] [id number] BEDSIDE GLUCOSE Collected: 08/03/2018 Status: F Source: [place] 11:37 PM [facility] REPOSITORY TYPE CODE TESTS RESULT OUT OF REFERENCE UNITS RANGE LAB L501.080 70-110 mg/dL High BEDSIDE GLU 173 Result Comment: MANAGEMENT OF PATIENT CARE PER NURSING PROTOCOL Performed By: #### L501.080 #### [facility] Point of Care [address] [facility]. [place], [place] [id number] BEDSIDE GLUCOSE Collected: 08/03/2018 Status: F Source: [place] 5:59 PM [facility] REPOSITORY TYPE CODE TESTS RESULT OUT OF REFERENCE UNITS RANGE LAB L501.080 70-110 mg/dL High BEDSIDE GLU 147 Result Comment: MANAGEMENT OF PATIENT CARE PER NURSING PROTOCOL Performed By: #### L501.080 #### [facility] Point of Care [address] [place], [place] [id number] BEDSIDE GLUCOSE Collected: 08/03/2018 Status: F Source: [place] 12:36 PM [facility] REPOSITORY TYPE CODE TESTS RESULT OUT OF REFERENCE UNITS RANGE LAB L501.080 70-110 mg/dL High BEDSIDE GLU 175 Result Comment: MANAGEMENT OF PATIENT CARE PER NURSING PROTOCOL Performed By: #### L501.080 #### [facility] Point of Care [address] [place], [place] [id number] CBC-COMPLETE BLOOD CNT Collected: 08/03/2018 Status: F Source: [place] NO DIFF 8:42 AM [facility] REPOSITORY TYPE CODE TESTS RESULT OUT OF [...] MPV 10.0 Performed By: #### L100.0500 #### [facility] [address] [place], [address] BASIC METABOLIC Collected: 08/03/2018 Status: F Source: [place] PROFILE ([facility]) 8:42 AM [facility] REPOSITORY TYPE CODE TESTS RESULT OUT OF [...] Performed By: #### L500.2500, L500.3400, L506.0500 #### [facility] [address] [facility]. [place], [place], [id number] LIVER PROFILE Collected: 08/03/2018 Status: F Source: [place] 8:42 AM [facility] REPOSITORY TYPE CODE TESTS RESULT OUT OF [...] Performed By: #### L500.2500, L500.3400, L506.0500 #### [facility] [address] [facility]. [place], [place], [id number] PREALBUMIN Collected: 08/03/2018 Status: F Source: [place] 8:42 AM [facility] REPOSITORY TYPE CODE TESTS RESULT OUT OF REFERENCE UNITS RANGE LAB L506.0500 20.0-40.0 mg/dL Low PREALBUMIN 11.1 Performed By: #### L500.2500, L500.3400, L506.0500 #### [facility] [address] [facility] [place], [address] BEDSIDE GLUCOSE Collected: 08/03/2018 Status: F Source: [place] 5:34 AM [facility] REPOSITORY TYPE CODE TESTS RESULT OUT OF REFERENCE UNITS RANGE LAB L501.080 70-110 mg/dL High BEDSIDE GLU 143 Result Comment: MANAGEMENT OF PATIENT CARE PER NURSING PROTOCOL Performed By: #### L501.080 #### [facility] Point of Care [address] [place] [address] BEDSIDE GLUCOSE Collected: 08/03/2018 Status: F Source: [place] 12:21 AM [facility] REPOSITORY TYPE CODE TESTS RESULT OUT OF REFERENCE UNITS RANGE LAB L501.080 70-110 mg/dL High BEDSIDE GLU 140 Result Comment: MANAGEMENT OF PATIENT CARE PER NURSING PROTOCOL Performed By: #### L501.080 #### [facility] Point of Care [address] [place] [address] BEDSIDE GLUCOSE Collected: 08/02/2018 Status: F Source: [place] 5:59 PM [facility] REPOSITORY TYPE CODE TESTS RESULT OUT OF REFERENCE UNITS RANGE LAB L501.080 70-110 mg/dL High BEDSIDE GLU 140 Result Comment: MANAGEMENT OF PATIENT CARE PER NURSING PROTOCOL Performed By: #### L501.080 #### [facility] Point of Care [address] [place] [address] ABD INC DECUB Observed: 08/02/2018 Status: F Source: [place] AND/OR ERECT 12:36 PM [facility] REPOSITORY [facility] Imaging Services [address] [place] [address] Abd Inc Decub and/or Erect MR#: [id number] Acct: [id number] Name: JIMENEZ WYNN Rep #: [id number] : 1935 F 82 From: Jourdan De La Fuente MD PCP: Clement Bueno MD Status: ADM IN Study: Abd Inc Decub and/or Erect Date of Exam: 08/02/18 Exam# [id number] Ordering Dr: Aurora Young MD STUDY: X-RAY [...] La Fuente MD at 15:55 EDT Tel [phone], Service support , CC: Clement Bueno MD; Aurora Young MD Band Scroll Saw Operator: Signed BEDSIDE GLUCOSE Collected: 08/02/2018 Status: F Source: [place] 12:11 PM [facility] REPOSITORY TYPE CODE TESTS RESULT OUT OF REFERENCE UNITS RANGE LAB L501.080 70-110 mg/dL High BEDSIDE GLU 112 Result Comment: MANAGEMENT OF PATIENT CARE PER NURSING PROTOCOL Performed By: #### L501.080 #### [facility] [place] [address] BASIC METABOLIC Collected: 08/02/2018 Status: F Source: [place] PROFILE (BMP) 6:32 AM [facility] REPOSITORY TYPE CODE TESTS RESULT OUT OF [...] 10 Performed By: #### L500.2500, L501.5200 #### [facility] [address] [facility] [place], [address] MAGNESIUM Collected: 08/02/2018 Status: F Source: [place] 6:32 AM [facility] REPOSITORY TYPE CODE TESTS RESULT OUT OF RANGE REFERENCE UNITS LAB L501.5200 1.6-2.6 mg/dL Normal MG 2.2 Performed By: #### L500.2500, L501.5200 #### [facility] [address] [place], [address] PHOSPHORUS Collected: 08/02/2018 Status: F Source: [place] 6:32 AM [facility] REPOSITORY TYPE CODE TESTS RESULT OUT OF RANGE REFERENCE UNITS LAB L501.2300 2.5-4.9 mg/dL Normal PHOS 3.7 Performed By: #### L501.2300 #### [facility] [address] [facility] [place], [address] CBC W/DIFF, AUTOMATED Collected: 08/02/2018 Status: C Source: [place] 6:32 AM [facility] REPOSITORY Order Comment: REDRAW. PREVIOUS SPECIMEN REJECTED [...] 0925 PATH REV previously reported as: March Performed By: #### L100.0100 #### [facility] [address] [place], [address] BEDSIDE GLUCOSE Collected: 08/02/2018 Status: F Source: [place] 5:33 AM [facility] REPOSITORY TYPE CODE TESTS RESULT OUT OF REFERENCE UNITS RANGE LAB L501.080 70-110 mg/dL High BEDSIDE GLU 113 Result Comment: MANAGEMENT OF PATIENT CARE PER NURSING PROTOCOL Performed By: #### L501.080 #### [facility] Point of Care [address] [place], [place] [id number] BEDSIDE GLUCOSE Collected: 08/01/2018 Status: F Source: [place] 11:56 PM [facility] REPOSITORY TYPE CODE TESTS RESULT OUT OF RANGE REFERENCE UNITS LAB L501.080 70-110 mg/dL Normal BEDSIDE GLU 94 Result Comment: MANAGEMENT OF PATIENT CARE PER NURSING PROTOCOL Performed By: #### L501.080 #### [facility] Point of Care [address] [place], [place] [address] BEDSIDE GLUCOSE Collected: 08/01/2018 Status: F Source: [place] 6:10 PM [facility] REPOSITORY TYPE CODE TESTS RESULT OUT OF REFERENCE UNITS RANGE LAB L501.080 70-110 mg/dL High BEDSIDE GLU 195 Result Comment: MANAGEMENT OF PATIENT CARE PER NURSING PROTOCOL Performed By: #### L501.080 #### [facility] Point of Care [address] [place], [place] [id number] TYPE AND SCREEN Collected: 08/01/2018 Status: F Source: [place] 12:16 PM [facility] REPOSITORY Order Comment: CMV NEG? N Number [...] NEGATIVE Screen Performed By: #### B101.7450 #### [facility] [address] [place], [place], [id number] RC Collected: 08/01/2018 Status: F Source: [place] 12:16 PM [facility] REPOSITORY TYPE CODE TESTS RESULT OUT OF REFERENCE UNITS RANGE LAB U100.0000 [id number] TRANSFUSED PRODUCT: T AND S with Crossmatch, Red Cells COUNT: 1 Performed By: #### U100.0000 #### [facility] - refer to report for specific site BEDSIDE GLUCOSE Collected: 08/01/2018 Status: F Source: [place] 11:28 AM [facility] REPOSITORY TYPE CODE TESTS RESULT OUT OF RANGE REFERENCE UNITS LAB L501.080 70-110 mg/dL Normal BEDSIDE GLU 110 Result Comment: MANAGEMENT OF PATIENT CARE PER NURSING PROTOCOL Performed By: #### L501.080 #### [facility] Point of Care [address] [place] [address] BEDSIDE GLUCOSE Collected: 08/01/2018 Status: F Source: [place] 7:58 AM [facility] REPOSITORY TYPE CODE TESTS RESULT OUT OF RANGE REFERENCE UNITS LAB L501.080 70-110 mg/dL Normal BEDSIDE GLU 96 Result Comment: MANAGEMENT OF PATIENT CARE PER NURSING PROTOCOL Performed By: #### L501.080 #### [facility] Point of Care [address] [place] [address] BEDSIDE GLUCOSE Collected: 08/01/2018 Status: F Source: [place] 5:26 AM [facility] REPOSITORY TYPE CODE TESTS RESULT OUT OF RANGE REFERENCE UNITS LAB L501.080 70-110 mg/dL Normal BEDSIDE GLU 89 Result Comment: MANAGEMENT OF PATIENT CARE PER NURSING PROTOCOL Performed By: #### L501.080 #### [facility] Point of Care [address] [place] [address] CBC W/DIFF, AUTOMATED Collected: 08/01/2018 Status: F Source: [place] 5:10 AM [facility] REPOSITORY Order Comment: SPECIMEN OBTAINED FROM LINE [...] Lymph 1.34 Performed By: #### L100.0100 #### [facility] [address] [facility]. [place], [place], [address] BASIC METABOLIC Collected: 08/01/2018 Status: F Source: [place] PROFILE (BMP) 5:10 AM [facility] REPOSITORY Order Comment: SPECIMEN OBTAINED FROM LINE [...] GAP 8 Performed By: #### L500.2500 #### [facility] [address] [place], [address] BEDSIDE GLUCOSE Collected: 08/01/2018 Status: F Source: [place] 12:00 AM [facility] REPOSITORY TYPE CODE TESTS RESULT OUT OF RANGE REFERENCE UNITS LAB L501.080 70-110 mg/dL Normal BEDSIDE GLU 105 Result Comment: MANAGEMENT OF PATIENT CARE PER NURSING PROTOCOL Performed By: #### L501.080 #### [facility] Point of Care [address] [place] [address] BEDSIDE GLUCOSE Collected: 07/31/2018 Status: F Source: [place] 6:02 PM [facility] REPOSITORY TYPE CODE TESTS RESULT OUT OF REFERENCE UNITS RANGE LAB L501.080 70-110 mg/dL High BEDSIDE GLU 128 Result Comment: MANAGEMENT OF PATIENT CARE PER NURSING PROTOCOL Performed By: #### L501.080 #### [facility] Point of Care [address] [place] [address] BEDSIDE GLUCOSE Collected: 07/31/2018 Status: F Source: [place] 11:42 AM [facility] REPOSITORY TYPE CODE TESTS RESULT OUT OF REFERENCE UNITS RANGE LAB L501.080 70-110 mg/dL High BEDSIDE GLU 118 Result Comment: MANAGEMENT OF PATIENT CARE PER NURSING PROTOCOL Performed By: #### L501.080 #### [facility] Point of Care [address] [place] [address] BEDSIDE GLUCOSE Collected: 07/31/2018 Status: F Source: [place] 5:03 AM [facility] REPOSITORY TYPE CODE TESTS RESULT OUT OF REFERENCE UNITS RANGE LAB L501.080 70-110 mg/dL High BEDSIDE GLU 163 Result Comment: MANAGEMENT OF PATIENT CARE PER NURSING PROTOCOL Performed By: #### L501.080 #### [facility] Point of Care [address] [place], [place] [address] BASIC METABOLIC Collected: 07/31/2018 Status: F Source: [place] PROFILE (BMP) 4:55 AM [facility] REPOSITORY TYPE CODE TESTS RESULT OUT OF [...] 10 Performed By: #### L500.2500, L501.5200 #### [facility] [address] [place], [place], [address] MAGNESIUM Collected: 07/31/2018 Status: F Source: [place] 4:55 AM [facility] REPOSITORY TYPE CODE TESTS RESULT OUT OF RANGE REFERENCE UNITS LAB L501.5200 1.6-2.6 mg/dL Normal MG 2.1 Performed By: #### L500.2500, L501.5200 #### [facility] [address] [place], [place], [id number] CBC-COMPLETE BLOOD CNT Collected: 07/31/2018 Status: F Source: [place] NO DIFF 4:55 AM [facility] REPOSITORY TYPE CODE TESTS RESULT OUT OF [...] MPV 11.1 Performed By: #### L100.0500 #### [facility] [address] [place], [place], [id number] BEDSIDE GLUCOSE Collected: 07/30/2018 Status: F Source: [place] 11:15 PM [facility] REPOSITORY TYPE CODE TESTS RESULT OUT OF REFERENCE UNITS RANGE LAB L501.080 70-110 mg/dL High BEDSIDE GLU 229 Result Comment: MANAGEMENT OF PATIENT CARE PER NURSING PROTOCOL Performed By: #### L501.080 #### [facility] Point of Care [address] [place] [id number] BEDSIDE GLUCOSE Collected: 07/30/2018 Status: F Source: [place] 5:38 PM [facility] REPOSITORY TYPE CODE TESTS RESULT OUT OF REFERENCE UNITS RANGE LAB L501.080 70-110 mg/dL High BEDSIDE GLU 258 Result Comment: MANAGEMENT OF PATIENT CARE PER NURSING PROTOCOL Performed By: #### L501.080 #### [facility] Point of Care [address] [place] [address] BEDSIDE GLUCOSE Collected: 07/30/2018 Status: F Source: [place] 11:56 AM [facility] REPOSITORY TYPE CODE TESTS RESULT OUT OF REFERENCE UNITS RANGE LAB L501.080 70-110 mg/dL High BEDSIDE GLU 289 Result Comment: MANAGEMENT OF PATIENT CARE PER NURSING PROTOCOL Performed By: #### L501.080 #### [facility] Point of Care [address] [place] [address] CBC W/DIFF, AUTOMATED Collected: 07/30/2018 Status: F Source: [place] 6:00 AM [facility] REPOSITORY TYPE CODE TESTS RESULT OUT OF [...] Lymph 1.24 Performed By: #### L100.0100 #### [facility] [address] [place], [place], [address] BASIC METABOLIC Collected: 07/30/2018 Status: F Source: [place] PROFILE (BMP) 6:00 AM [facility] REPOSITORY TYPE CODE TESTS RESULT OUT OF [...] Performed By: #### L500.2500, L501.2300, L501.5200 #### [facility] [address] [place], [place], [id number] PHOSPHORUS Collected: 07/30/2018 Status: F Source: [place] 6:00 AM [facility] REPOSITORY TYPE CODE TESTS RESULT OUT OF RANGE REFERENCE UNITS LAB L501.2300 2.5-4.9 mg/dL Low PHOS 1.9 Performed By: #### L500.2500, L501.2300, L501.5200 #### [facility] [address] [facility] [address] MAGNESIUM Collected: 07/30/2018 Status: F Source: [place] 6:00 AM [facility] REPOSITORY TYPE CODE TESTS RESULT OUT OF RANGE REFERENCE UNITS LAB L501.5200 1.6-2.6 mg/dL Low MG 1.4 Performed By: #### L500.2500, L501.2300, L501.5200 #### [facility] [address] [place], [address] BEDSIDE GLUCOSE Collected: 07/30/2018 Status: F Source: [place] 5:37 AM [facility] REPOSITORY TYPE CODE TESTS RESULT OUT OF REFERENCE UNITS RANGE LAB L501.080 70-110 mg/dL High BEDSIDE GLU 260 Result Comment: MANAGEMENT OF PATIENT CARE PER NURSING PROTOCOL Performed By: #### L501.080 #### [facility] Point of Care [address] [place] [address] BEDSIDE GLUCOSE Collected: 07/30/2018 Status: F Source: [place] 12:25 AM [facility] REPOSITORY TYPE CODE TESTS RESULT OUT OF REFERENCE UNITS RANGE LAB L501.080 70-110 mg/dL High BEDSIDE GLU 278 Result Comment: MANAGEMENT OF PATIENT CARE PER NURSING PROTOCOL Performed By: #### L501.080 #### [facility] Point of Care [address] [place] [address] BEDSIDE GLUCOSE Collected: 07/29/2018 Status: F Source: [place] 6:24 PM [facility] REPOSITORY TYPE CODE TESTS RESULT OUT OF REFERENCE UNITS RANGE LAB L501.080 70-110 mg/dL High BEDSIDE GLU 198 Result Comment: MANAGEMENT OF PATIENT CARE PER NURSING PROTOCOL Performed By: #### L501.080 #### [facility] Point of Care [address] [place] [address] BEDSIDE GLUCOSE Collected: 07/29/2018 Status: F Source: [place] 12:07 PM [facility] REPOSITORY TYPE CODE TESTS RESULT OUT OF REFERENCE UNITS RANGE LAB L501.080 70-110 mg/dL High BEDSIDE GLU 153 Result Comment: MANAGEMENT OF PATIENT CARE PER NURSING PROTOCOL Performed By: #### L501.080 #### [facility] Point of Care [address] [place] [address] ABDOMEN SINGLE VIEW Observed: 07/29/2018 Status: F Source: [place] (PORTABLE) 8:42 AM [facility] REPOSITORY [facility] Imaging Services [address] [place] [address] Abdomen Single View (Portable) MR#: [id number] Acct: [id number] Name: JIMENEZ WYNN Rep #: [id number] : 1935 F 82 From: Jourdan De La Fuente MD PCP: Clement Bueno MD Status: ADM IN Study: Abdomen Single View (Portable) Date of Exam: 07/29/18 Exam# [id number] Ordering Dr: Aurora Young MD STUDY: X-RAY [...] La Fuente MD at 9:13 EDT Tel [phone], Service support , CC: Clement Bueno MD; Aurora Young MD Band Scroll Saw Operator: Signed BEDSIDE GLUCOSE Collected: 07/29/2018 Status: F Source: [place] 6:13 AM [facility] REPOSITORY TYPE CODE TESTS RESULT OUT OF REFERENCE UNITS RANGE LAB L501.080 70-110 mg/dL High BEDSIDE GLU 145 Result Comment: MANAGEMENT OF PATIENT CARE PER NURSING PROTOCOL Performed By: #### L501.080 #### [facility] Point of Care [address] [place] [address] BASIC METABOLIC Collected: 07/29/2018 Status: F Source: [place] PROFILE (BMP) 5:10 AM [facility] REPOSITORY Order Comment: SPECIMEN OBTAINED FROM LINE [...] GAP 8 Performed By: #### L500.2500 #### [facility] [address] [place], [address] CBC W/DIFF, AUTOMATED Collected: 07/29/2018 Status: F Source: [place] 5:10 AM [facility] REPOSITORY Order Comment: SPECIMEN OBTAINED FROM LINE [...] GRAN 1+ Performed By: #### L100.0100 #### [facility] [address] [place], [address] BEDSIDE GLUCOSE Collected: 07/28/2018 Status: F Source: GISSEL 11:51 PM [facility] REPOSITORY TYPE CODE TESTS RESULT OUT OF RANGE REFERENCE UNITS LAB L501.080 70-110 mg/dL Normal BEDSIDE GLU 106 Result Comment: MANAGEMENT OF PATIENT CARE PER NURSING PROTOCOL Performed By: #### L501.080 #### [facility] Point of Care [address] [place] [address] BEDSIDE GLUCOSE Collected: 07/28/2018 Status: F Source: [place] 5:26 PM [facility] REPOSITORY TYPE CODE TESTS RESULT OUT OF RANGE REFERENCE UNITS LAB L501.080 70-110 mg/dL Normal BEDSIDE GLU 109 Result Comment: MANAGEMENT OF PATIENT CARE PER NURSING PROTOCOL Performed By: #### L501.080 #### [facility] Point of Care [address] [place] [address] BEDSIDE GLUCOSE Collected: 07/28/2018 Status: F Source: [place] 12:19 PM [facility] REPOSITORY TYPE CODE TESTS RESULT OUT OF RANGE REFERENCE UNITS LAB L501.080 70-110 mg/dL Normal BEDSIDE GLU 107 Result Comment: MANAGEMENT OF PATIENT CARE PER NURSING PROTOCOL Performed By: #### L501.080 #### [facility] Point of Care [address] [place] [address] CONSULTATION Observed: 07/28/2018 Status: F Source: [place] 12:08 PM 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 Y BC No growth in 5 days. Performed By: #### M200.1000 #### [facility] [address] [place], [address] 12 LEAD ELECTROCARDIOGRAM Observed: 07/28/2018 Status: F Source: [place] 9:39 AM [facility] REPOSITORY [facility] Cardiovascular Services [address] [place] [address] 12 Lead EKG 07/21/181921 MR#: [id number] Acct: [id number] Name: JIMENEZ WYNN Rep #: [id number] : 1935 82 From: Markus Cueto MD Attending Dr: Arnaud Lewis MD Status: ADM IN Ordering Dr: Eriberto Huang MD Date: 07/21/18 Location: [facility] Sex: F C Admitted: 07/20/18 Test Reason [...] occurred Confirmed by MARKUS CUETO MD ([id number]), sound editor SADIQ BUENO ([id number]) on 07/28/2018 9:38:36 AM Referred By: Confirmed By:MARKUS CUETO MD 07/28/18 0938 Date Markus Cueto MD CC: Arnaud Lewis MD; Clement Bueno MD; Eriberto Huang MD Signed 12 LEAD ELECTROCARDIOGRAM Observed: 07/28/2018 Status: F Source: [facility] 9:38 AM [facility] Cardiovascular Services [address] [place] [address] 12 Lead EKG 07/22/18 0328 MR#: [id number] Acct: [id number] Name: JIMENEZ WYNN Rep #: [id number] : 1935 82 From: Markus Cueto MD [...] UNCONFIRMED Confirmed by MARKUS CUETO MD ([id number]), sound editor SADIQ BUENO ([id number]) on 07/28/2018 9:37:46 AM Referred By: AILEEN Confirmed By:MARKUS CUETO MD 07/28/18 0937 Date Markus Cueto MD CC: Arnaud Lewis MD; Clement Bueno MD; Adrien Ford MD Signed 12 LEAD ELECTROCARDIOGRAM Observed: 07/28/2018 Status: F Source: [place] 9:38 AM [facility] REPOSITORY [facility] Cardiovascular Services [address] [place] [address] 12 Lead EKG 07/22/18 0318 MR#: [id number] Acct: [id number] Name: JIMENEZ WYNN Rep #: [id number] : 1935 82 From: Markus Cueto MD [...] ECGs available Confirmed by MARKUS CUETO MD ([id number]), sound editor SADIQ BUENO ([id number]) on 07/28/2018 9:38:06 AM Referred By: AILEEN Confirmed By:MARKUS CUETO MD 07/28/18 0938 Date Markus Cueto MD CC: Arnaud Lewis MD; Clement Bueno MD; Adrien Ford MD Signed 12 LEAD ELECTROCARDIOGRAM Observed: 07/28/2018 Status: F Source: [place] 9:38 AM [facility] REPOSITORY [facility] Cardiovascular Services [address] [place] [address] 12 Lead EKG 07/21/181925 MR#: [id number] Acct: [id number] Name: JIMENEZ WYNN Rep #: [id number] : 1935 82 From: Markus Cueto MD Attending Dr: Arnaud Lewis MD Status: ADM IN Ordering Dr: Eriberto Huang MD Date: 07/21/18 Location: [facility] Sex: F C Admitted: 07/20/18 Test Reason [...] IS UNCONFIRMED Confirmed by MARKUS CUETO MD ([id number]), sound editor SADIQ BUENO ([id number]) on 07/28/2018 9:38:22 AM Referred By: Confirmed By:MARKUS CUETO MD 07/28/18 0938 Date Markus Cueto MD CC: Arnaud Lewis MD; Clement Bueno MD; Eriberto Huang MD Signed 12 LEAD ELECTROCARDIOGRAM Observed: 07/28/2018 Status: F Source: [place] 9:37 AM [facility] REPOSITORY [facility] Cardiovascular Services [address] [place] [address] 12 Lead EKG 07/22/18 0349 MR#: [id number] Acct: [id number] Name: JIMENEZ WYNN Rep #: [id number] : 1935 82 From: Markus Cueto MD Attending Dr: Arnaud Lewis MD Status: ADM IN Ordering Dr: Adrien Ford MD Date: 07/22/18 Location: [facility] Sex: F C Admitted: 07/20/18 Test Reason [...] UNCONFIRMED Confirmed by NORY MERCER, MARKUS ([id number]), sound editor SADIQ BUENO ([id number]) on 07/28/2018 9:36:49 AM Referred By: AILEEN Confirmed By:MARKUS CUETO MD 07/28/18 0936 Date Markus Cueto MD CC: Arnaud Lewis MD; Clement Bueno MD; Adrien Ford MD Signed 12 LEAD ELECTROCARDIOGRAM Observed: 07/28/2018 Status: F Source: [place] 9:37 AM [facility] REPOSITORY [facility] Cardiovascular Services [address] [place] [address] 12 Lead EKG 07/22/18 0329 MR#: [id number] Acct: [id number] Name: JIMENEZ WYNN Rep #: [id number] : 1935 82 From: Markus Cueto MD Attending Dr: Arnaud Lewis MD Status: ADM IN Ordering Dr: Adrien Ford MD Date: 07/22/18 Location: [facility] Sex: F C Admitted: 07/20/18 Test Reason [...] UNCONFIRMED Confirmed by NORY MERCER, MARKUS ([id number]), sound editor SADIQ BUENO (56) on 07/28/2018 9:37:23 AM Referred By: AILEEN Confirmed By:MARKUS CUETO MD 07/28/18 0937 Date Markus Cueto MD CC: Arnaud Lewis MD; Clement Bueno MD; Adrien Ford MD Signed ABDOMEN/PEL W ORAL CONT Observed: 07/28/2018 Status: F Source: [place] ONLY 7:36 AM [facility] REPOSITORY [facility] Imaging Services [address] [place] [address] Abdomen/Pel W ORAL Cont Only MR#: [id number] Acct: [id number] Name: JIMENEZ WYNN Rep #: [id number] : 1935 F 82 From: Jourdan De La Fuente MD PCP: Clement Bueno MD Status: ADM IN Study: Abdomen/Pel W ORAL Cont Only Date of Exam: 07/28/18 Exam# [id number] Ordering Dr: Aurora Young MD STUDY: CT [...] La Fuente MD at 13:30 EDT Tel [phone], Service support , CC: Clement Bueno MD; Aurora Young MD Band Scroll Saw Operator: Signed BEDSIDE GLUCOSE Collected: 07/28/2018 Status: F Source: [place] 6:12 AM [facility] REPOSITORY TYPE CODE TESTS RESULT OUT OF REFERENCE UNITS RANGE LAB L501.080 70-110 mg/dL High BEDSIDE GLU 111 Result Comment: MANAGEMENT OF PATIENT CARE PER NURSING PROTOCOL Performed By: #### L501.080 #### [facility] Point of Care [address] [place] [address] BASIC METABOLIC Collected: 07/28/2018 Status: F Source: [place] PROFILE (BMP) 4:25 AM [facility] REPOSITORY TYPE CODE TESTS RESULT OUT OF [...] GAP 7 Performed By: #### L500.2500 #### [facility] [address] [place], [address] CBC W/DIFF, AUTOMATED Collected: 07/28/2018 Status: F Source: [place] 4:25 AM [facility] REPOSITORY TYPE CODE TESTS RESULT OUT OF [...] COMMENT SCANNED Performed By: #### L100.0100 #### [facility] [address] [place], [address] BEDSIDE GLUCOSE Collected: 07/27/2018 Status: F Source: [place] 11:49 PM [facility] REPOSITORY TYPE CODE TESTS RESULT OUT OF REFERENCE UNITS RANGE LAB L501.080 70-110 mg/dL High BEDSIDE GLU 229 Result Comment: MANAGEMENT OF PATIENT CARE PER NURSING PROTOCOL Performed By: #### L501.080 #### [facility] Point of Care [address] [place] [address] BEDSIDE GLUCOSE Collected: 07/27/2018 Status: F Source: [place] 5:37 PM [facility] REPOSITORY TYPE CODE TESTS RESULT OUT OF REFERENCE UNITS RANGE LAB L501.080 70-110 mg/dL High BEDSIDE GLU 330 Result Comment: MANAGEMENT OF PATIENT CARE PER NURSING PROTOCOL Performed By: #### L501.080 #### [facility] Point of Care [address] [place] [address] [place] [address] URINALYSIS, COMPLETE Collected: 07/27/2018 Status: F Source: [place] 11:30 AM [facility] REPOSITORY Order Comment: How was Urine Obtained? [...] 0-5 SEEN Performed By: #### L400.0001 #### [facility] [address] [place], [address] BEDSIDE GLUCOSE Collected: 07/27/2018 Status: F Source: [place] 9:55 AM [facility] REPOSITORY TYPE CODE TESTS RESULT OUT OF REFERENCE UNITS RANGE LAB L501.080 70-110 mg/dL High BEDSIDE GLU 140 Result Comment: MANAGEMENT OF PATIENT CARE PER NURSING PROTOCOL Performed By: #### L501.080 #### [facility] Point of Care [address] [place] [address] CHEST 1 VIEW Observed: 07/27/2018 Status: F Source: [place] 9:11 AM [facility] REPOSITORY [facility] Imaging Services [address] [place] [address] Chest 1 View MR#: [id number] Acct: [id number] Name: JIMENEZ WYNN Rep #: [id number] : 1935 F 82 From: Jourdan De La Fuente MD PCP: Clement Bueno MD Status: ADM IN Study: Chest 1 View Date of Exam: 07/27/18 Exam# [id number] Ordering Dr: Aurora Young MD STUDY: X-RAY [...] La Fuente MD at 13:11 EDT Tel [phone], Service support , CC: Clement Bueno MD; Aurora Young MD Band Scroll Saw Operator: Signed CBC W/DIFF, AUTOMATED Collected: 07/27/2018 Status: F Source: [place] 8:20 AM [facility] REPOSITORY TYPE CODE TESTS RESULT OUT OF [...] LYMPHS. Performed By: #### L100.0100, L100.4425 #### [facility] [address] [facility] [place], [place], [address] NRBC PANEL Collected: 07/27/2018 Status: F Source: [place] 8:20 AM [facility] REPOSITORY TYPE CODE TESTS RESULT OUT OF RANGE REFERENCE UNITS LAB L100.4450 0-5 % Normal NRBC, FLAGGED 0.1 LAB L100.4455 0-5 10 3/uL Normal NRBC # 0.02 Performed By: #### L100.0100, L100.4425 #### [facility] [address] [place], [place], [address] BASIC METABOLIC Collected: 07/27/2018 Status: F Source: [place] PROFILE (BMP) 6:35 AM [facility] REPOSITORY Order Comment: SPECIMEN OBTAINED FROM LINE [...] GAP 9 Performed By: #### L500.2500 #### [facility] [address] [place], [place], [address] BEDSIDE GLUCOSE Collected: 07/27/2018 Status: F Source: [place] 6:00 AM [facility] REPOSITORY TYPE CODE TESTS RESULT OUT OF REFERENCE UNITS RANGE LAB L501.080 70-110 mg/dL High BEDSIDE GLU 166 Result Comment: MANAGEMENT OF PATIENT CARE PER NURSING PROTOCOL Performed By: #### L501.080 #### [facility] Point of Care [address] [facility] [place] [address] BEDSIDE GLUCOSE Collected: 07/27/2018 Status: F Source: [place] 2:20 AM [facility] REPOSITORY TYPE CODE TESTS RESULT OUT OF REFERENCE UNITS RANGE LAB L501.080 70-110 mg/dL High BEDSIDE GLU 282 Result Comment: MANAGEMENT OF PATIENT CARE PER NURSING PROTOCOL Performed By: #### L501.080 #### [facility] Point of Care [address] [facility] [place] [address] BEDSIDE GLUCOSE Collected: 07/26/2018 Status: F Source: [place] 9:42 PM [facility] REPOSITORY TYPE CODE TESTS RESULT OUT OF REFERENCE UNITS RANGE LAB L501.080 70-110 mg/dL High BEDSIDE GLU 161 Result Comment: MANAGEMENT OF PATIENT CARE PER NURSING PROTOCOL Performed By: #### L501.080 #### [facility] Point of Care [address] [place] [address] BEDSIDE GLUCOSE Collected: 07/26/2018 Status: F Source: [place] 6:21 PM [facility] REPOSITORY TYPE CODE TESTS RESULT OUT OF REFERENCE UNITS RANGE LAB L501.080 70-110 mg/dL High BEDSIDE GLU 215 Result Comment: MANAGEMENT OF PATIENT CARE PER NURSING PROTOCOL Performed By: #### L501.080 #### [facility] Point of Care [address] [place] [address] BEDSIDE GLUCOSE Collected: 07/26/2018 Status: F Source: [place] 2:17 PM [facility] REPOSITORY TYPE CODE TESTS RESULT OUT OF REFERENCE UNITS RANGE LAB L501.080 70-110 mg/dL High BEDSIDE GLU 307 Result Comment: MANAGEMENT OF PATIENT CARE PER NURSING PROTOCOL Performed By: #### L501.080 #### [facility] Point of Care [address] [place] [address] BEDSIDE GLUCOSE Collected: 07/26/2018 Status: F Source: [place] 10:17 AM [facility] REPOSITORY TYPE CODE TESTS RESULT OUT OF REFERENCE UNITS RANGE LAB L501.080 70-110 mg/dL High BEDSIDE GLU 282 Result Comment: MANAGEMENT OF PATIENT CARE PER NURSING PROTOCOL Performed By: #### L501.080 #### [facility] Point of Care [address] [place] [address] ABDOMEN SINGLE VIEW Observed: 07/26/2018 Status: F Source: [place] (PORTABLE) 7:29 AM [facility] REPOSITORY [facility] Imaging Services [address] [place] [address] Abdomen Single View (Portable) MR#: [id number] Acct: [id number] Name: JIMENEZ WYNN Rep #: [id number] : 1935 F 82 From: Jourdan De La Fuente MD PCP: Clement Bueno MD Status: ADM IN Study: Abdomen Single View (Portable) Date of Exam: 07/26/18 Exam# [id number] Ordering Dr: Aurora Young MD STUDY: X-RAY [...] La Fuente MD at 11:10 EDT Tel [phone], Service support , CC: Clement Bueno MD; Aurora Young MD Band Scroll Saw Operator: Signed BEDSIDE GLUCOSE Collected: 07/26/2018 Status: F Source: [place] 5:59 AM [facility] REPOSITORY TYPE CODE TESTS RESULT OUT OF REFERENCE UNITS RANGE LAB L501.080 70-110 mg/dL High BEDSIDE GLU 332 Result Comment: MANAGEMENT OF PATIENT CARE PER NURSING PROTOCOL Performed By: #### L501.080 #### [facility] [address] [place], [place] [id number] BASIC METABOLIC Collected: 07/26/2018 Status: F Source: [place] PROFILE (BMP) 4:30 AM [facility] REPOSITORY TYPE CODE TESTS RESULT OUT OF [...] Performed By: #### L500.2500, L501.2300, L501.5200 #### [facility] [address] [facility] [place], [place], [address] PHOSPHORUS Collected: 07/26/2018 Status: F Source: [place] 4:30 AM [facility] REPOSITORY TYPE CODE TESTS RESULT OUT OF RANGE REFERENCE UNITS LAB L501.2300 2.5-4.9 mg/dL Normal PHOS 3.4 Performed By: #### L500.2500, L501.2300, L501.5200 #### [facility] [address] [place], [address] MAGNESIUM Collected: 07/26/2018 Status: F Source: [place] 4:30 AM [facility] REPOSITORY TYPE CODE TESTS RESULT OUT OF RANGE REFERENCE UNITS LAB L501.5200 1.6-2.6 mg/dL Normal MG 2.0 Performed By: #### L500.2500, L501.2300, L501.5200 #### [facility] [address] [place], [address] BEDSIDE GLUCOSE Collected: 07/26/2018 Status: F Source: [place] 2:00 AM [facility] REPOSITORY TYPE CODE TESTS RESULT OUT OF REFERENCE UNITS RANGE LAB L501.080 70-110 mg/dL High BEDSIDE GLU 302 Result Comment: MANAGEMENT OF PATIENT CARE PER NURSING PROTOCOL Performed By: #### L501.080 #### [facility] Point of Care [address] [place] [address] BEDSIDE GLUCOSE Collected: 07/25/2018 Status: F Source: [place] 9:12 PM [facility] REPOSITORY TYPE CODE TESTS RESULT OUT OF REFERENCE UNITS RANGE LAB L501.080 70-110 mg/dL High BEDSIDE GLU 263 Result Comment: MANAGEMENT OF PATIENT CARE PER NURSING PROTOCOL Performed By: #### L501.080 #### [facility] Point of Care [address] [place] [address] BEDSIDE GLUCOSE Collected: 07/25/2018 Status: F Source: [place] 5:55 PM [facility] REPOSITORY TYPE CODE TESTS RESULT OUT OF REFERENCE UNITS RANGE LAB L501.080 70-110 mg/dL High BEDSIDE GLU 314 Result Comment: MANAGEMENT OF PATIENT CARE PER NURSING PROTOCOL Performed By: #### L501.080 #### [facility] Point of Care [address] [place] [address] BASIC METABOLIC Collected: 07/25/2018 Status: F Source: [place] PROFILE (BMP) 5:05 PM [facility] REPOSITORY TYPE CODE TESTS RESULT OUT OF [...] GAP 7 Performed By: #### L500.2500 #### [facility] [address] [place], [address] BEDSIDE GLUCOSE Collected: 07/25/2018 Status: F Source: [place] 2:59 PM [facility] REPOSITORY TYPE CODE TESTS RESULT OUT OF REFERENCE UNITS RANGE LAB L501.080 70-110 mg/dL High BEDSIDE GLU 379 Result Comment: MANAGEMENT OF PATIENT CARE PER NURSING PROTOCOL Performed By: #### L501.080 #### [facility] Point of Care [address] [facility] [place] [address] BEDSIDE GLUCOSE Collected: 07/25/2018 Status: F Source: [place] 9:44 AM [facility] REPOSITORY TYPE CODE TESTS RESULT OUT OF REFERENCE UNITS RANGE LAB L501.080 70-110 mg/dL High BEDSIDE GLU 320 Result Comment: MANAGEMENT OF PATIENT CARE PER NURSING PROTOCOL Performed By: #### L501.080 #### [facility] Point of Care [address] [place] [address] BEDSIDE GLUCOSE Collected: 07/25/2018 Status: F Source: [place] 7:58 AM [facility] REPOSITORY TYPE CODE TESTS RESULT OUT OF REFERENCE UNITS RANGE LAB L501.080 70-110 mg/dL High BEDSIDE GLU 329 Result Comment: MANAGEMENT OF PATIENT CARE PER NURSING PROTOCOL Performed By: #### L501.080 #### [facility] Point of Care [address] [place] [address] BEDSIDE GLUCOSE Collected: 07/25/2018 Status: F Source: [place] 6:11 AM [facility] REPOSITORY TYPE CODE TESTS RESULT OUT OF REFERENCE UNITS RANGE LAB L501.080 70-110 mg/dL High BEDSIDE GLU 336 Result Comment: MANAGEMENT OF PATIENT CARE PER NURSING PROTOCOL Performed By: #### L501.080 #### [facility] [place] Laboratory Point of Care [address] [place] [address] BASIC METABOLIC Collected: 07/25/2018 Status: F Source: [place] PROFILE (BMP) 4:23 AM [facility] REPOSITORY TYPE CODE TESTS RESULT OUT OF [...] 05:05:03 07/25/2018 by: DOUGLAS BRADFORD to Leann [facility] LAB L501.5900 98-107 mmol/L High CL 108 LAB L501.6100 21.0-32.0 mmol/L Normal CO2 28.0 LAB L501.6200 5-15 Normal 9 GAP Performed By: #### L500.2500 #### [facility] [address] [place], [place], [address] CBC W/DIFF, AUTOMATED Collected: 07/25/2018 Status: F Source: [place] 4:23 AM [facility] REPOSITORY TYPE CODE TESTS RESULT OUT OF [...] Lymph 0.38 Performed By: #### L100.0100 #### [facility] [address] [facility] [place], [address] PHOSPHORUS Collected: 07/25/2018 Status: F Source: [place] 4:23 AM [facility] REPOSITORY TYPE CODE TESTS RESULT OUT OF RANGE REFERENCE UNITS LAB L501.2300 2.5-4.9 mg/dL Normal PHOS 2.6 Performed By: #### L501.2300, L501.5200 #### [facility] [address] [place], [address] MAGNESIUM Collected: 07/25/2018 Status: F Source: [place] 4:23 AM [facility] REPOSITORY TYPE CODE TESTS RESULT OUT OF RANGE REFERENCE UNITS LAB L501.5200 1.6-2.6 mg/dL Normal MG 1.6 Performed By: #### L501.2300, L501.5200 #### [facility] [address] [place], [address] GLUCOSE Collected: 07/25/2018 Status: F Source: [place] 1:27 AM [facility] REPOSITORY TYPE CODE TESTS RESULT OUT OF RANGE REFERENCE UNITS LAB L501.0100 74-106 mg/dL High alert GLU 476 Result Comment: Critical Result(s) Called at: 02:28:04 07/25/2018 by: DOULGAS Noriega Glucose result greater than or equal to 200 mg/dL suggests DIABETES MELLITUS per A.D.A. criteria. Please note revised GLUCOSE reference range effective 2017. Performed By: #### L501.0100 #### [facility] [address] [place], [address] BEDSIDE GLUCOSE Collected: 07/25/2018 Status: F Source: [place] 1:19 AM [facility] REPOSITORY TYPE CODE TESTS RESULT OUT OF REFERENCE UNITS RANGE LAB L501.080 70-110 mg/dL High alert BEDSIDE GLU 481 Result Comment: MANAGEMENT OF PATIENT CARE PER NURSING PROTOCOL Performed By: #### L501.080 #### [facility] Point of Care [address] [place] [address] GLUCOSE Collected: 07/24/2018 Status: F Source: [place] 9:43 PM [facility] REPOSITORY TYPE CODE TESTS RESULT OUT OF RANGE REFERENCE UNITS LAB L501.0100 74-106 mg/dL High alert GLU 527 Result Comment: Critical Result(s) Called Gelacio LEON at: 22:25:21 07/24/2018 by: RITESH FOOTE Glucose result greater than or equal to 200 mg/dL suggests DIABETES MELLITUS per A.D.A. criteria. Please note revised GLUCOSE reference range effective 2017. Performed By: #### L501.0100 #### [facility] [address] [place], [address] BEDSIDE GLUCOSE Collected: 07/24/2018 Status: F Source: [place] 9:36 PM [facility] REPOSITORY TYPE CODE TESTS RESULT OUT OF REFERENCE UNITS RANGE LAB L501.080 70-110 mg/dL High alert BEDSIDE GLU 495 Result Comment: MANAGEMENT OF PATIENT CARE PER NURSING PROTOCOL Performed By: #### L501.080 #### [facility] Point of Care [address] [place] [address] BEDSIDE GLUCOSE Collected: 07/24/2018 Status: F Source: [place] 6:05 PM [facility] REPOSITORY TYPE CODE TESTS RESULT OUT OF REFERENCE UNITS RANGE LAB L501.080 70-110 mg/dL High alert BEDSIDE GLU > 500 Result Comment: MANAGEMENT OF PATIENT CARE PER NURSING PROTOCOL Performed By: #### L501.080 #### [facility] Point of Care [address] [place] [address] BEDSIDE GLUCOSE Collected: 07/24/2018 Status: F Source: [place] 4:44 PM [facility] REPOSITORY TYPE CODE TESTS RESULT OUT OF REFERENCE UNITS RANGE LAB L501.080 70-110 mg/dL High alert BEDSIDE GLU > 500 Result Comment: MANAGEMENT OF PATIENT CARE PER NURSING PROTOCOL Performed By: #### L501.080 #### [facility] Point of Care [address] [place] [address] BEDSIDE GLUCOSE Collected: 07/24/2018 Status: F Source: [place]IS[place] 11:50 AM [facility] REPOSITORY TYPE CODE TESTS RESULT OUT OF REFERENCE UNITS RANGE LAB L501.080 70-110 mg/dL High alert BEDSIDE GLU 454 Result Comment: MANAGEMENT OF PATIENT CARE PER NURSING PROTOCOL Performed By: #### L501.080 #### [facility] Point of Care [address] [place] [address] BEDSIDE GLUCOSE Collected: 07/24/2018 Status: F Source: GISSEL 10:29 AM [facility] REPOSITORY TYPE CODE TESTS RESULT OUT OF REFERENCE UNITS RANGE LAB L501.080 70-110 mg/dL High BEDSIDE GLU 398 Result Comment: MANAGEMENT OF PATIENT CARE PER NURSING PROTOCOL Performed By: #### L501.080 #### [facility] Point of Care [address] [place] [address] BEDSIDE GLUCOSE Collected: 07/24/2018 Status: F Source: GISSEL 5:16 AM [facility] REPOSITORY TYPE CODE TESTS RESULT OUT OF REFERENCE UNITS RANGE LAB L501.080 70-110 mg/dL High BEDSIDE GLU 438 Result Comment: Dr Orders Followed Insulin Given MANAGEMENT OF PATIENT CARE PER NURSING PROTOCOL Performed By: #### L501.080 #### [facility] Point of Care [address] [place] [address] CBC W/DIFF, AUTOMATED Collected: 07/24/2018 Status: F Source: GISSEL 4:00 AM [facility] REPOSITORY TYPE CODE TESTS RESULT OUT OF [...] LYMPHOPENIA NOTED Performed By: #### L100.0100 #### [facility] [address] [facility] [place], [address] PHOSPHORUS Collected: 07/24/2018 Status: F Source: GISSEL 4:00 AM [facility] REPOSITORY TYPE CODE TESTS RESULT OUT OF RANGE REFERENCE UNITS LAB L501.2300 2.5-4.9 mg/dL Normal PHOS 3.1 Performed By: #### L501.2300, L501.5200 #### [facility] [address] [facility] [place], [address] MAGNESIUM Collected: 07/24/2018 Status: F Source: GISSEL 4:00 AM [facility] REPOSITORY TYPE CODE TESTS RESULT OUT OF RANGE REFERENCE UNITS LAB L501.5200 1.6-2.6 mg/dL Normal MG 1.8 Performed By: #### L501.2300, L501.5200 #### [facility] [address] [place], [address] BASIC METABOLIC Collected: 07/24/2018 Status: F Source: GISSEL PROFILE (BMP) 4:00 AM [facility] REPOSITORY TYPE CODE TESTS RESULT OUT OF [...] GAP 11 Performed By: #### L500.2500 #### [facility] [address] [place], [place], [address] BEDSIDE GLUCOSE Collected: 07/23/2018 Status: F Source: GISSEL 11:46 PM [facility] REPOSITORY TYPE CODE TESTS RESULT OUT OF REFERENCE UNITS RANGE LAB L501.080 70-110 mg/dL High BEDSIDE GLU 435 Result Comment: MANAGEMENT OF PATIENT CARE PER NURSING PROTOCOL Performed By: #### L501.080 #### [facility] Point of Care [address] [place] [address] BEDSIDE GLUCOSE Collected: 07/23/2018 Status: F Source: [place] 11:45 PM [facility] REPOSITORY TYPE CODE TESTS RESULT OUT OF REFERENCE UNITS RANGE LAB L501.080 70-110 mg/dL High BEDSIDE GLU 440 Result Comment: MANAGEMENT OF PATIENT CARE PER NURSING PROTOCOL Performed By: #### L501.080 #### [facility] Point of Care [address] [place] [address] BEDSIDE GLUCOSE Collected: 07/23/2018 Status: F Source: GISSEL 4:18 PM [facility] REPOSITORY TYPE CODE TESTS RESULT OUT OF REFERENCE UNITS RANGE LAB L501.080 70-110 mg/dL High BEDSIDE GLU 180 Result Comment: MANAGEMENT OF PATIENT CARE PER NURSING PROTOCOL Performed By: #### L501.080 #### [facility] Point of Care [address] [place] [address] Observed: 07/23/2018 Status: F Source: GISSEL CULTURE, BLOOD (WB) 3:20 PM [facility] REPOSITORY Has pt arrived? Y BC No growth in 5 days. Performed By: #### M200.1000 #### [facility] [address] [place], [address] BEDSIDE GLUCOSE Collected: 07/23/2018 Status: F Source: GISSEL 11:57 AM [facility] REPOSITORY TYPE CODE TESTS RESULT OUT OF REFERENCE UNITS RANGE LAB L501.080 70-110 mg/dL High BEDSIDE GLU 162 Result Comment: MANAGEMENT OF PATIENT CARE PER NURSING PROTOCOL Performed By: #### L501.080 #### [facility] Point of Care [address] [place] [address] BLOOD GASES BY CPS Collected: 07/23/2018 Status: F Source: [place]IS[place] 6:21 AM [facility] REPOSITORY TYPE CODE TESTS RESULT OUT OF [...] ISTAT 93 Performed By: #### L9000.0800 #### [facility] Point of Care [address] [place] [address] BEDSIDE GLUCOSE Collected: 07/23/2018 Status: F Source: [place] 5:33 AM [facility] REPOSITORY TYPE CODE TESTS RESULT OUT OF REFERENCE UNITS RANGE LAB L501.080 70-110 mg/dL High BEDSIDE GLU 130 Result Comment: MANAGEMENT OF PATIENT CARE PER NURSING PROTOCOL Performed By: #### L501.080 #### [facility] Point of Care [address] [place] [address] CBC W/DIFF, AUTOMATED Collected: 07/23/2018 Status: F Source: [place] 4:00 AM [facility] REPOSITORY TYPE CODE TESTS RESULT OUT OF [...] LYMPHOPENIA NOTED Performed By: #### L100.0100 #### [facility] [address] [place], [address] BASIC METABOLIC Collected: 07/23/2018 Status: F Source: [place] PROFILE (BMP) 4:00 AM [facility] REPOSITORY TYPE CODE TESTS RESULT OUT OF [...] Performed By: #### L500.2500, L501.2300, L501.5200 #### [facility] [address] [place], [address] PHOSPHORUS Collected: 07/23/2018 Status: F Source: [place]IS[place] 4:00 AM [facility] REPOSITORY TYPE CODE TESTS RESULT OUT OF RANGE REFERENCE UNITS LAB L501.2300 2.5-4.9 mg/dL Normal PHOS 2.8 Performed By: #### L500.2500, L501.2300, L501.5200 #### [facility] [address] [facility] [place], [address] MAGNESIUM Collected: 07/23/2018 Status: F Source: [place]IS[place] 4:00 AM [facility] REPOSITORY TYPE CODE TESTS RESULT OUT OF RANGE REFERENCE UNITS LAB L501.5200 1.6-2.6 mg/dL Normal MG 2.1 Performed By: #### L500.2500, L501.2300, L501.5200 #### [facility] [address] [facility] [place], [address] BEDSIDE GLUCOSE Collected: 07/22/2018 Status: F Source: [place] 11:18 PM [facility] REPOSITORY TYPE CODE TESTS RESULT OUT OF REFERENCE UNITS RANGE LAB L501.080 70-110 mg/dL High BEDSIDE GLU 121 Result Comment: MANAGEMENT OF PATIENT CARE PER NURSING PROTOCOL Performed By: #### L501.080 #### [facility] Point of Care [address] [facility] [place] [address] CONSULTATION Observed: 07/22/2018 Status: F Source: [place]IS[place] 9:19 PM [facility] REPOSITORY [facility] Medical Records Department [address] [place] [address] Consultation 07/22/182053 MR#: [id number] Acct: [id number] Name: JIMENEZ WYNN Rep #: [id number] : 1935 82 From: Charly Ross MD PCP: Clement Bueno MD Status: ADM IN Y Location: ICU ICU07- Problem List (1) SVT (supraventricular tachycardia) Status: Acute (2) Takotsubo cardiomyopathy Status: Chronic (3) Atherosclerotic heart disease of [place] coronary artery without angina pectoris Status: Chronic Qualifiers: [place] vs. 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 Hypothyroidism (Chronic) COPD (chronic obstructive pulmonary disease) (Chronic) Hyperlipidemia (Chronic) Type 2 diabetes mellitus (Chronic) Surgical History: hysterectomy, total hip arthroplasty, - - Fractured femur, bilateral knee surgeries and bilateral hip surgeries Psychiatric History: No pertinent psych hx TALENT MANAGER History: No pertinent TALENT MANAGER history - *Family History Maternal Family History: Family History (Last Updated 05/26/18 @ 10:48 by Sofia Allen) Mother Diabetes Brother Atrial fibrillation Brother Diabetes Sister Diabetes History Items: Diabetes Paternal Family History: Family History (Last Updated 05/26/18 @ 10:48 by Sofia Allen) Mother Diabetes Brother Atrial fibrillation Brother Diabetes Sister Diabetes History Items: Diabetes, Heart Disease Lives: Group Home Smoking Status: Never smoker Tobacco Use: Non-smoker [...] 90.2 H, Lymph % (Auto) 6.4 L, [place] % (Auto) 2.3, Eos % (Auto) 0.4, [...] TR; mild focal aortic valve calcification; trivial RI; estimated RV systolic pressure of 37 mmHg; decreased diastolic compliance Stress Test: 05/10/2018: Pharmacologic stress nuclear imaging study: Considered negative with a gated LVEF of 64% Cardiac Cath: 09/13/2012: [facility]: Left ventricle considered to demonstrate mid to [...] Dr. Garrido. This note was generated with HipChatation software. It may contain incorrect words, spelling, and punctuation that were not noted in checking the note before signing. 07/22/182118 <Electronically signed by Charly Ross MD> Date Charly Ross MD Cosigner Signature (if applicable): Date CC: Clement Bueno MD; Juan Jose Lemon MD; Clement Bueno MD; Charly Ross MD; Aurora Young MD Signed BEDSIDE GLUCOSE Collected: 07/22/2018 Status: F Source: [place]IS[place] 6:10 PM [facility] REPOSITORY TYPE CODE TESTS RESULT OUT OF REFERENCE UNITS RANGE LAB L501.080 70-110 mg/dL High BEDSIDE GLU 137 Result Comment: MANAGEMENT OF PATIENT CARE PER NURSING PROTOCOL Performed By: #### L501.080 #### [facility] Point of Care [address] [place] [address] BEDSIDE GLUCOSE Collected: 07/22/2018 Status: F Source: [place]IS[place] 12:04 PM [facility] REPOSITORY TYPE CODE TESTS RESULT OUT OF REFERENCE UNITS RANGE LAB L501.080 70-110 mg/dL High BEDSIDE GLU 148 Result Comment: MANAGEMENT OF PATIENT CARE PER NURSING PROTOCOL Performed By: #### L501.080 #### [facility] Point of Care [address] [place] [address] BEDSIDE GLUCOSE Collected: 07/22/2018 Status: F Source: [place]IS[place] 6:30 AM [facility] REPOSITORY TYPE CODE TESTS RESULT OUT OF REFERENCE UNITS RANGE LAB L501.080 70-110 mg/dL High BEDSIDE GLU 160 Result Comment: MANAGEMENT OF PATIENT CARE PER NURSING PROTOCOL Performed By: #### L501.080 #### [facility] Point of Care [address] [place] [address] BASIC METABOLIC Collected: 07/22/2018 Status: F Source: [place] PROFILE (BMP) 4:15 AM [facility] REPOSITORY TYPE CODE TESTS RESULT OUT OF [...] GAP 9 Performed By: #### L500.2500 #### [facility] [address] [place], [address] PHOSPHORUS Collected: 07/22/2018 Status: F Source: [place] 4:15 AM [facility] REPOSITORY TYPE CODE TESTS RESULT OUT OF RANGE REFERENCE UNITS LAB L501.2300 2.5-4.9 mg/dL Normal PHOS 3.1 Performed By: #### L501.2300, L501.5200 #### [facility] [address] [place], [address] MAGNESIUM Collected: 07/22/2018 Status: F Source: [place] 4:15 AM [facility] REPOSITORY TYPE CODE TESTS RESULT OUT OF RANGE REFERENCE UNITS LAB L501.5200 1.6-2.6 mg/dL High MG 2.7 Performed By: #### L501.2300, L501.5200 #### [facility] [place], [address] CBC W/DIFF, AUTOMATED Collected: 07/22/2018 Status: F Source: [place] 4:15 AM [facility] REPOSITORY TYPE CODE TESTS RESULT OUT OF [...] Lymph 0.45 Performed By: #### L100.0100 #### [facility] [address] [facility] [place], [address] TROPONIN-I Collected: 07/22/2018 Status: F Source: [place] 4:15 AM [facility] REPOSITORY Order Comment: 'TROP' Serial specimen #1, #2 or #3: 1 TYPE CODE TESTS RESULT OUT OF RANGE REFERENCE UNITS LAB L501.4010 <0.045 ng/mL Normal < 0.015 TROPONIN-I Result Comment: TROPONIN-I EXPECTED VALUES <0.045 Negative 0.045 - 0.590 Consistent with Cardiac Damage > OR = 0.600 Critical Value Not every elevated troponin is indicative of MO. These values should be used with clinical judgement in examining the patient's clinical picture for diagnosis. To establish a diagnosis of MO versus myocardial injury, there must be a demonstrated rise and/or fall in the troponin values, in addition to ischemic symptoms, EKG changes, new regional wall motion abnormality, and/or angiographical evidence. PLEASE NOTE: REFERENCE RANGES EDITED 18 Performed By: #### L501.4010 #### [facility] [address] [facility] [place], [address] BLOOD GASES BY [facility] Collected: 07/22/2018 Status: F Source: [place] 3:56 AM [facility] REPOSITORY TYPE CODE TESTS RESULT OUT OF [...] ISTAT 90 Performed By: #### L9000.0800 #### [facility] Point of Care [address] [place] [address] BEDSIDE GLUCOSE Collected: 07/21/2018 Status: F Source: [place]IS[place] 11:48 PM [facility] REPOSITORY TYPE CODE TESTS RESULT OUT OF REFERENCE UNITS RANGE LAB L501.080 70-110 mg/dL High BEDSIDE GLU 144 Result Comment: MANAGEMENT OF PATIENT CARE PER NURSING PROTOCOL Performed By: #### L501.080 #### [facility] Point of Care [address] [place] [address] BASIC METABOLIC Collected: 07/21/2018 Status: F Source: [place]IS[place] PROFILE (BMP) 7:49 PM [facility] REPOSITORY TYPE CODE TESTS RESULT OUT OF [...] Performed By: #### L500.2500, L501.2300, L501.5200 #### [facility] [address] [place], [address] PHOSPHORUS Collected: 07/21/2018 Status: F Source: [place] 7:49 PM [facility] REPOSITORY TYPE CODE TESTS RESULT OUT OF RANGE REFERENCE UNITS LAB L501.2300 2.5-4.9 mg/dL Normal PHOS 3.0 Performed By: #### L500.2500, L501.2300, L501.5200 #### [facility] [address] [place], [address] MAGNESIUM Collected: 07/21/2018 Status: F Source: [place] 7:49 PM [facility] REPOSITORY TYPE CODE TESTS RESULT OUT OF RANGE REFERENCE UNITS LAB L501.5200 1.6-2.6 mg/dL Normal MG 2.6 Performed By: #### L500.2500, L501.2300, L501.5200 #### [facility] [address] [facility] [facility] [place], [address] BEDSIDE GLUCOSE Collected: 07/21/2018 Status: F Source: [place] 5:40 PM [facility] REPOSITORY TYPE CODE TESTS RESULT OUT OF REFERENCE UNITS RANGE LAB L501.080 70-110 mg/dL High BEDSIDE GLU 139 Result Comment: MANAGEMENT OF PATIENT CARE PER NURSING PROTOCOL Performed By: #### L501.080 #### [facility] Point of Care [address] [facility] [place] [address] 12 LEAD ELECTROCARDIOGRAM Observed: 07/21/2018 Status: F Source: [place] 2:12 PM [facility] REPOSITORY [facility] Cardiovascular Services [address] [place] [address] 12 Lead EKG 07/20/18 0804 MR#: [id number] Acct: [id number] Name: JIMENEZ WYNN Rep #: [id number] : 1935 82 From: Charly Ross MD [...] ECG Confirmed by CODY MERCER, CHARLY ([id number]), sound editor SADIQ BUENO ([id number]) on 07/21/2018 2:11:47 PM Referred By: MONA Confirmed By:CHARLY ROSS MD 07/21/18 1411 Date Charly Ross MD CC: Paula Garrido MD; Clement Bueno MD; Matias Cortes MD Signed BEDSIDE GLUCOSE Collected: 07/21/2018 Status: F Source: [place] 11:58 AM [facility] REPOSITORY TYPE CODE TESTS RESULT OUT OF REFERENCE UNITS RANGE LAB L501.080 70-110 mg/dL High BEDSIDE GLU 143 Result Comment: MANAGEMENT OF PATIENT CARE PER NURSING PROTOCOL Performed By: #### L501.080 #### [facility] Point of Care [address] [place] [address] OPERATIVE REPORT Observed: 07/21/2018 Status: F Source: [place] 9:55 AM [facility] REPOSITORY [facility] Medical Records Department [address] [place] [address] Operative Report 07/20/18 1343 MR#: [id number] Acct: [id number] Name: JIMENEZ WYNN Rep #: [id number] : 1935 82 From: Aurora Young MD PCP: Clement Bueno MD Status: ADM IN Y Location: ICU ICU07-1 Report of Operation Date of Procedure: 07/27/18 Pre-Operative Diagnosis: Pneumoperitoneum Post-Operative Diagnosis: Perforated descending colon near splenic flexure Surgery/Procedure Performed:: Exploratory laparotomy, mobilization of the splenic flexure, left colon resection, end colostomy carpenter apprentice: Franklyn Dubois carpenter apprentice: Deya Carrillo Type of Anesthesia:: General/Supplemental Anesthesiologist: [...] the cut on the Bovie form a [place] and then using [employer]'s to go down to the fascia which [...] transferred to the ICU. - Complications none 07/21/18954 <Electronically signed by Aurora Young MD> Date Aurora Young MD CC: Juan Jose Lemon MD; Clement Bueno MD; Aurora Young MD Signed LACTIC ACID Collected: 07/21/2018 Status: F Source: [place]IS[place] 6:55 AM [facility] REPOSITORY Order Comment: Comments: please check after boluses given Yes/No query for Sepsis Lactate Rule Y TYPE CODE TESTS RESULT OUT OF RANGE REFERENCE UNITS LAB L503.6005 0.4-2.0 mmol/L Normal LACTIC ACID 1.9 Performed By: #### L503.6005 #### [facility] [address] [place], [address] BEDSIDE GLUCOSE Collected: 07/21/2018 Status: F Source: [place] 5:36 AM [facility] REPOSITORY TYPE CODE TESTS RESULT OUT OF REFERENCE UNITS RANGE LAB L501.080 70-110 mg/dL High BEDSIDE GLU 169 Result Comment: MANAGEMENT OF PATIENT CARE PER NURSING PROTOCOL Performed By: #### L501.080 #### [facility] Point of Care [address] [place], [place] [address] BASIC METABOLIC Collected: 07/21/2018 Status: F Source: [place] PROFILE (BMP) 5:28 AM [facility] REPOSITORY TYPE CODE TESTS RESULT OUT OF [...] Performed By: #### L500.2500, L501.2300, L501.5200 #### [facility] [address] [place], [address] PHOSPHORUS Collected: 07/21/2018 Status: F Source: [place] 5:28 AM [facility] REPOSITORY TYPE CODE TESTS RESULT OUT OF RANGE REFERENCE UNITS LAB L501.2300 2.5-4.9 mg/dL Normal PHOS 2.8 Performed By: #### L500.2500, L501.2300, L501.5200 #### [facility] [address] [place], [place], [address] MAGNESIUM Collected: 07/21/2018 Status: F Source: [place] 5:28 AM [facility] REPOSITORY TYPE CODE TESTS RESULT OUT OF RANGE REFERENCE UNITS LAB L501.5200 1.6-2.6 mg/dL Low MG 1.2 Performed By: #### L500.2500, L501.2300, L501.5200 #### [facility] [address] [place], [place], [address] CBC W/DIFF, AUTOMATED Collected: 07/21/2018 Status: C Source: [place] 5:28 AM [facility] REPOSITORY TYPE CODE TESTS RESULT OUT OF [...] Danelle ward Performed By: #### L100.0100 #### [facility] [address] [facility] [place], [place], [address] LIVER PROFILE Collected: 07/21/2018 Status: F Source: [place] 5:25 AM [facility] REPOSITORY TYPE CODE TESTS RESULT OUT OF [...] BILI 0.17 Performed By: #### L500.3400 #### [facility] [address] [place], [place], [address] CONSULTATION Observed: 07/21/2018 Status: F Source: [place] 5:20 AM [facility] REPOSITORY [facility] Medical Records Department [address] [place] [address] Consultation 07/20/18 1504 MR#: [id number] Acct: [id number] Name: JIMENEZ WYNN Rep #: [id number] : 1935 82 From: Juan Jose Lemon MD PCP: Clement Bueno MD Status: [facility]M IN Y [facility] Problem List (1) Large bowel perforation Status: [...] confusion and not feeling well from a skilled nursing. Patient reportedly had reported feeling worse over [...] (valve) insufficiency (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 Hypothyroidism (Chronic) COPD (chronic obstructive pulmonary disease) (Chronic) Hyperlipidemia (Chronic) Type 2 diabetes mellitus (Chronic) Medical History: Medical History (Last Reviewed 03/01/18 @ 13:10 by Victoria Fu) Takotsubo cardiomyopathy (Chronic) I51.81 Nonrheumatic tricuspid (valve) insufficiency (Chronic) I36.1 Atherosclerotic heart disease of [place] coronary artery without angina pectoris (Chronic) I25.10 [...] - Ostomy is clean, dry and intact. [place] mucosa noted. Extremities: No clubbing, No cyanosis, [...] La Fuente MD at 8:36 EDT Tel [phone], Service support , Chest X-Ray 07/20/18 08:30 IMPRESSION: Free intraperitoneal air. The referring physician was notified. Electronically Signed: Jourdan De La Fuente MD at 9:15 EDT Tel [phone], Service support , Abdomen/Pelvis CT 07/20/18 08:55 IMPRESSION: Free intraperitoneal air as well as retroperitoneal air. Sigmoid diverticulosis and possible perforation of the sigmoid colon Bibasilar atelectasis. Stable left renal cyst. Electronically Signed: Jourdan De La Fuente MD at 9:38 EDT Tel [phone], Service support , Chest X-Ray 07/20/18 10:26 IMPRESSION: The tip of the right internal jugular venous catheter is in the right atrium. Increased markings at the lung bases suggestive bibasilar atelectasis and/or scarring. Electronically Signed: Jourdan De La Fuente MD at 12:15 EDT Tel [phone], Service support , Chest X-Ray 07/20/18 14:23 IMPRESSION: All the side port tubes are in good position. Stable increased markings at the lung bases suggesting bibasilar atelectasis. Electronically Signed: Jourdan De La Fuente MD at 14:55 EDT Tel [phone], Service support , Assessment/Plan Active and Suspected [...] a DNR Comfort Care arrest at the skilled nursing prior to acute situation. Area of the [...] PM to 3:30 PM) Code Visit 9xxxx: [id number] Critical care first hour 07/21/18 0520 <Electronically signed by Juan Jose Lemon MD> Date Juan Jose Lemon MD Cosigner Signature (if applicable): Date CC: Juan Jose Lemon MD; Clement Bueno MD; Aurora Young MD Signed BEDSIDE GLUCOSE Collected: 07/21/2018 Status: F Source: [place]IS[place] 12:34 AM [facility] REPOSITORY TYPE CODE TESTS RESULT OUT OF REFERENCE UNITS RANGE LAB L501.080 70-110 mg/dL High BEDSIDE GLU 196 Result Comment: MANAGEMENT OF PATIENT CARE PER NURSING PROTOCOL Performed By: #### L501.080 #### [facility] Point of Care [address] [address] LACTIC ACID Collected: 07/20/2018 Status: F Source: [place] 10:30 PM [facility] REPOSITORY Order Comment: Yes/No query for Sepsis Lactate Rule Y TYPE CODE TESTS RESULT OUT OF REFERENCE UNITS RANGE LAB L503.6005 0.4-2.0 mmol/L High LACTIC ACID 2.6 Result Comment: SPECIMEN NOT ON ICE Critical Result(s) Called at: 23:18:04 07/20/2018 by: Nataly AUGUSTINE Performed By: #### L503.6005 #### [facility] [address] [facility] [place], [address] BEDSIDE GLUCOSE Collected: 07/20/2018 Status: F Source: [place] 5:44 PM [facility] REPOSITORY TYPE CODE TESTS RESULT OUT OF REFERENCE UNITS RANGE LAB L501.080 70-110 mg/dL High BEDSIDE GLU 232 Result Comment: MANAGEMENT OF PATIENT CARE PER NURSING PROTOCOL Performed By: #### L501.080 #### [facility] Point of Care [address] [place] [address] HISTORY AND PHYSICAL Observed: 07/20/2018 Status: F Source: [place] EXAM 5:26 PM [facility] REPOSITORY [facility] Medical Records Department [address] [place] [address] History and Physical 07/20/18 1506 MR#: [id number] Acct: [id number] Name: JIMENEZ WYNN Rep #: [id number] : 1935 82 From: Paula Garrido MD PCP: Clement Bueno MD Status: ADM IN Y [facility] Problem List (1) Large bowel perforation Status: Acute (2) Septic shock Status: Acute (3) DEMETRA (acute kidney injury) Status: Acute (4) Takotsubo cardiomyopathy Status: Chronic (5) Nonrheumatic tricuspid (valve) insufficiency Status: Chronic (6) Atherosclerotic heart disease of [place] coronary artery without angina pectoris Status: Chronic Qualifiers: [place] vs. transplanted heart: [place] heart Comment: Mild (7) Hypothyroidism Status: Chronic Qualifiers: Hypothyroidism type: unspecified (8) COPD (chronic obstructive pulmonary disease) Status: Chronic Qualifiers: Emphysema type: unspecified (9) Hyperlipidemia Status: Chronic Qualifiers: Hyperlipidemia type: unspecified Qualified Code(s): E78.5 - Hyperlipidemia, unspecified (10) Type 2 diabetes mellitus Status: Chronic Qualifiers: Diabetes mellitus skilled nursing insulin use: without terminal superintendent use Diabetes mellitus complication status: with unspecified complications Qualified Code(s): E11.8 - Type 2 diabetes mellitus with unspecified complications History of Present Illness Date of Admission: 07/20/18 Chief Complaint: Not feeling well, confusion The patient is a 82 year old F with multiple comorbidities significant for Takusubo cardiomyopathy with SVTs, hypertension, type II DM, resident in a skilled nursing who was brought to the emergency room [...] (valve) insufficiency (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 Hypothyroidism (Chronic) COPD (chronic obstructive pulmonary disease) (Chronic) Hyperlipidemia (Chronic) Type 2 diabetes mellitus (Chronic) Medical History: Medical History (Last Reviewed 03/01/18 @ 13:10 by Victoria Fu) Takotsubo cardiomyopathy (Chronic) I51.81 Nonrheumatic tricuspid (valve) insufficiency (Chronic) I36.1 Atherosclerotic heart disease of [place] coronary artery without angina pectoris (Chronic) I25.10 [...] surgeries Psychiatric History: No pertinent psych hx TALENT MANAGER History: No pertinent TALENT MANAGER history Lives: Group Home Smoking Status: Never smoker Tobacco Use: Non-smoker [...] hypertension, type II DM, resident in a skilled nursing who was brought to the emergency room with complaints of confusion and not feeling well as well as being diaphoretic. 1. Septic shock secondary to acute peritonitis secondary to perforated descending colon, status post surgery, on IV Zosyn, vancomycin added by air quality instrument specialist We will continue to monitor patient's vitals closely 2. Postop day #0 status post exploratory laparotomy, colon resection and end colostomy, on fentanyl drip 3. Acute respiratory failure, patient electively intubated for surgery, kept intubated on account of current septic shock, air quality instrument specialist consulted. 4. Type II DM, on insulin, [...] SC Code Visit Inpatient E AND M: 33467 Subs Hosp L3 07/20/18 1726 <Electronically signed by Paula Garrido MD> Date Paula Garrido MD Cosigner Signature: Date (if applicable) CC: Paula Garrido MD; Clement Bueno MD Signed BLOOD GASES BY [facility] Collected: 07/20/2018 Status: F Source: [place] 3:35 PM [facility] REPOSITORY TYPE CODE TESTS RESULT OUT OF [...] ISTAT 96 Performed By: #### L9000.0800 #### [facility] Point of Care [address] [place] [address] CONSULTATION Observed: 07/20/2018 Status: F Source: [place] 3:34 PM [facility] REPOSITORY [facility] Medical Records Department [address] [place] [address] Consultation 07/20/18915 MR#: [id number] Acct: [id number] Name: JIMENEZ WYNN Rep #: [id number] : 1935 82 From: Aurora Young MD PCP: Clement Bueno MD Status: ADM IN Y Location: ICU ICU-1 Reason for Consult Date of Consultation: 07/20/18 [...] (valve) insufficiency (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 Hypothyroidism (Chronic) COPD (chronic obstructive pulmonary disease) (Chronic) Hyperlipidemia (Chronic) Type 2 diabetes mellitus (Chronic) Medical History: Medical History (Last Reviewed 03/01/18 @ 13:10 by Victoria Fu) Takotsubo cardiomyopathy (Chronic) I51.81 Nonrheumatic tricuspid (valve) insufficiency (Chronic) I36.1 Atherosclerotic heart disease of [place] coronary artery without angina pectoris (Chronic) I25.10 [...] surgery, and anesthesia. Aurora Young M.D. Pager: [phone] [facility] [address] [place] [address], [address] [place] [address] Office: [phone] 07/20/18 9794 <Electronically signed by Aurora Young MD> Date Aurora Young MD Cosigner Signature (if applicable): Date CC: Juan Jose Lemon MD; Clement Bueno MD Signed CBC-COMPLETE BLOOD CNT Collected: 07/20/2018 Status: F Source: [place] NO DIFF 2:50 PM [facility] REPOSITORY TYPE CODE TESTS RESULT OUT OF [...] MPV 8.8 Performed By: #### L100.0500 #### [facility] [place], [address] BASIC METABOLIC Collected: 07/20/2018 Status: F Source: [place] PROFILE (BMP) 2:50 PM [facility] REPOSITORY TYPE CODE TESTS RESULT OUT OF [...] GAP 11 Performed By: #### L500.2500 #### [facility] [address] [facility] [place], [address] LACTIC ACID Collected: 07/20/2018 Status: F Source: [place] 2:50 PM [facility] REPOSITORY TYPE CODE TESTS RESULT OUT OF REFERENCE UNITS RANGE LAB L503.6005 0.4-2.0 mmol/L High LACTIC ACID 3.3 Result Comment: Critical Result(s) Called at: 15:32:16 07/20/2018 by: Nataly BOWEN Performed By: #### L503.6005 #### [facility] [address] [facility] [place], [address] CPK TOTAL, CREATINE Collected: 07/20/2018 Status: F Source: [place] KINASE 2:50 PM [facility] REPOSITORY Order Comment: Comments: DC when propofol is d/c'd Comments: DC when propofol is d/c'd TYPE CODE TESTS RESULT OUT OF RANGE REFERENCE UNITS LAB L501.3620 26-192 U/L Normal CPK TOTAL 63 Performed By: #### L501.3620, L501.5000 #### [facility] [address] [place], [address] TRIGLYCERIDES Collected: 07/20/2018 Status: F Source: [place] 2:50 PM [facility] REPOSITORY Order Comment: Comments: DC when propofol [...] mg/dL Performed By: #### L501.3620, L501.5000 #### [facility] [address] [place], [address] CHEST 1 VIEW Observed: 07/20/2018 Status: F Source: [place] (PORTABLE) 2:24 PM [facility] REPOSITORY [facility] Imaging Services [address] [facility] [place] [address] Chest 1 View (Portable) MR#: [id number] Acct: [id number] Name: JIMENEZ WYNN Rep #: [id number] : 1935 F 82 From: Jourdan De La Fuente MD PCP: Clement Bueno MD Status: ADM IN Study: Chest 1 View (Portable) Date of Exam: 07/20/18 Exam# [id number] Ordering Dr: Juan Jose Lemon MD STUDY: [...] La Fuente MD at 14:55 EDT Tel [phone], Service support , CC: Juan Jose Lemon MD; Clement Bueno MD Band Scroll Saw Operator: Signed Observed: 07/20/2018 Status: F Source: [place] CULTURE, DEEP WOUND 12:10 PM [facility] REPOSITORY Order Date: 06/03/17 Comments: Peritoneal Fluid [...] <=20 S (NF) indicates non-formulary drug at [facility]. Approval by Infectious Disease Specialist required before non-formulary drugs may be ordered and/or dispensed. Acinetobacter spp: REACTION Cefepime $ 2 S Ceftazidime *NF 4 S Ceftriaxone $ 16 I Ciprofloxacin $ <=0.25 S Gentamicin $ <=1 S Imipenem *NF 0.5 S Levofloxacin $ <=0.12 S Tobramycin $ <=1 S Trimethoprim/Sulfametho $ 80 R (NF) indicates non-formulary drug at [facility]. Approval by Infectious Disease Specialist [...] Anaerobic cocci Performed By: #### M100.1500 #### [facility] [place], [address] BEDSIDE GLUCOSE Collected: 07/20/2018 Status: F Source: [place] 11:02 AM [facility] REPOSITORY TYPE CODE TESTS RESULT OUT OF REFERENCE UNITS RANGE LAB L501.080 70-110 mg/dL High BEDSIDE GLU 212 Result Comment: MANAGEMENT OF PATIENT CARE PER NURSING PROTOCOL Performed By: #### L501.080 #### [facility] Point of Care [address] [place] [address] COLON (NO NEOPLASM) Observed: 07/20/2018 Status: F Source: [place] 10:30 AM [facility] REPOSITORY Patient: JIMENEZ WYNN : 1935 (82/F) Acct Num: [id number] Phys: Paula Garrido MD Unit Num: [id number] Loc: ICU ICU07-1 Specimen: [id number] Received: 07/21/18 - 1006 Spec Type: COLON [...] not reveal any obviously enlarged lymph node. Assistant Professor Of Psychology sections are submitted in six cassettes as follows: 1 omentum, 2 proximal and distal resection margin, distal resection margin is inked black, 3 AND 4 area of perforation, 5 - public service representative sections from the other area, 6 pericolonic adipose tissue. / SJ:mac 07/22/18 TC:5 CPT: 67151 HEADER OPERATION: Exploratory laparotomy, colon resection, colostomy creation PRE-OP DIAGNOSIS: Pneumoperitoneum TISSUE SUBMITTED: Left colon, omentum, suture marking distal MICROSCOPIC DESCRIPTION Slides are reviewed. MICROSCOPIC DIAGNOSIS Left colon and omentum, colectomy: Segment of colon with area of perforation with associated hemorrhage and inflammation. Omentum with focal mild congestion. SJ:mac 07/23/18 Signed Jeffrey Ryan 07/23/18 <signature on file> Performed By: #### PCOL #### [facility] [address] [place], [address] EMERGENCY DEPARTMENT Observed: 07/20/2018 Status: F Source: [place] SUMMARY 10:27 AM [facility] REPOSITORY [facility] Medical Records Department [address] [place] [address] Emergency Department Summary 07/20/18 0812 MR#: [id number] Acct: [id number] Name: JIMENEZ WYNN Rep #: [id number] : 1935 82 From: Matias Cortes MD [...] first attempt. Using Seldinger technique a 7.5 [place] tube was placed. Portal chest x-ray was [...] Service: 07/20/18 Chief Complaint: Patient presents from skilled nursing because of confusion and not feeling History of Present Illness: The patient is a 82 F who states I feel like she had . Patient denies every question asked except weakness and not feeling well. Paperwork that accompanied her from skilled nursing was reviewed and there is no new [...] 4. Hyperglycemia This note was generated with [employer] dictation software. It may contain incorrect words, spelling, and punctuation that were not noted in review of the chart prior to signing ED Disposition - Plan for ED Patient: Chief Complaint: Weakness What to do if you have Problems For any increased pain, shortness of breath, bleeding, nausea or vomiting, chest pain, or any unexpected problems, contact your Primary Care Provider. Call [facility] ([phone]) or report to the closest Emergency Room. Call 911 if necessary. 07/20/18 0934 <Electronically signed by Matias Cortes MD> Date Matias Cortes MD Cosigner Signature (If Indicated): Date CC: Clement Bueno MD; Aurora Young MD CXR FOR LINE PLACEMENT Observed: 07/20/2018 Status: F Source: [place] 10:26 AM [facility] REPOSITORY [facility] Imaging Services [address] [place] [address] CXR for Line Placement MR#: [id number] Acct: [id number] Name: JIMENEZ WYNN Rep #: [id number] : 1935 F 82 From: Jourdan De La Fuente MD PCP: Clement Bueno MD Status: ADM IN Study: CXR for Line Placement Date of Exam: 07/20/18 Exam# [id number] Ordering Dr: Matias Cortes MD STUDY: X-RAY [...] La Fuente MD at 12:15 EDT Tel [phone], Service support , CC: Clement Bueno MD; Matias Cortes MD Band Scroll Saw Operator: Signed Observed: 07/20/2018 Status: F Source: [place] CULTURE, BLOOD (WB) 9:45 AM [facility] REPOSITORY ANAEROBIC BOTTLE GRAM STAIN= ANAEROBIC GRAM NEGATIVE JUSTICE AEROBIC BOTTLE: No growth in 5 DAYS. RESULTS CALLED TO KVNG 07/21/18 1251 Debi Sanabria. REPORT READ BACK BY [facility]. Studies Have Confirmed That Clostridium perferingens is routinely susceptible to: Ampicillin/Sulbactam, Piperacillin/Tazobactam, Cefoxitin, Ertapenem, Imipenem, Meropenem, Penicillin/Ampicillin, Moxifloxacin, Clindamycin and Metronidazole. Clostridium species other than C. perferingens are variable in resistance to: Cefoxitin, Clindamycin, Moxifloxacin, imipenem and Penicillin/Ampicillin. RESULTS CALLED TO MARNI DE LA O 07/23/18 7853 Brandi Estrella. REPORT READ BACK BY SAME. ORGANISM 1: Clostridium clostridioforme Amount Growth Growth Performed By: #### M200.1000 #### [facility] [address] [place], [address] ABDOMEN/PELVIS WITHOUT Observed: 07/20/2018 Status: F Source: [place] CONT 8:55 AM [facility] REPOSITORY [facility] Imaging Services [address] [place] [address] Abdomen/Pelvis without Cont MR#: [id number] Acct: [id number] Name: JIMENEZ WYNN Rep #: [id number] : 1935 F 82 From: Jourdan De La Fuente MD PCP: Clement Bueno MD Status: ADM IN Study: Abdomen/Pelvis without Cont Date of Exam: 07/20/18 Exam# [id number] Ordering Dr: Matias Cortes MD STUDY: CT [...] La Fuente MD at 9:38 EDT Tel [phone], Service support , CC: Clement Bueno MD; Matias Cortes MD Band Scroll Saw Operator: Signed CHEST 1 VIEW Observed: 07/20/2018 Status: F Source: [place] (PORTABLE) 8:27 AM [facility] REPOSITORY [facility] Imaging Services [address] [place] [address] Chest 1 View (Portable) MR#: [id number] Acct: [id number] Name: JIMENEZ WYNN Rep #: [id number] : 1935 F 82 From: Jourdan De La Fuente MD PCP: Clement Bueno MD Status: REG ER Study: Chest 1 View (Portable) Date of Exam: 07/20/18 Exam# [id number] Ordering Dr: Matias Cortes MD STUDY: X-RAY [...] La Fuente MD at 9:15 EDT Tel [phone], Service support , CC: Clement Bueno MD; Matias Cortes MD Band Scroll Saw Operator: Signed URINALYSIS, COMPLETE Collected: 07/20/2018 Status: F Source: [place] 8:25 AM [facility] REPOSITORY Order Comment: Microscopic field is filled. Other elements may be obscured. Has pt arrived? Y How was Urine Obtained? MORNING SHOW HOST TO SPECIFY TYPE CODE TESTS RESULT OUT [...] URINE RARE Performed By: #### L400.0001 #### [facility] [address] [place], [address] Observed: 07/20/2018 Status: F Source: [place] CULTURE, URINE 8:25 AM [facility] REPOSITORY Has pt arrived? Y Urine Culture ORGANISM 1: Presumptive E. coli [place] Count >100,000 Presumptive E. coli: REACTION Amoxacillin/Clavulanic [...] <=20 S (NF) indicates non-formulary drug at [facility]. Approval by Infectious Disease Specialist required before non-formulary drugs may be ordered and/or dispensed. Performed By: #### M100.0650 #### [facility] [address] [place], [address] VENOUS BLOOD GAS Collected: 07/20/2018 Status: F Source: [place] 8:19 AM [facility] REPOSITORY TYPE CODE TESTS RESULT OUT OF [...] 28 ISTAT Performed By: #### L9000.0810 #### [facility] Point of Care [address] [place], [place] [address] CBC W/DIFF, AUTOMATED Collected: 07/20/2018 Status: F Source: [place] 8:00 AM [facility] REPOSITORY TYPE CODE TESTS RESULT OUT OF [...] LYMPHOPENIA NOTED. Performed By: #### L100.0100 #### [facility] [place], [address] COMPREHENSIVE METABOLIC Collected: 07/20/2018 Status: F Source: [place] [facility] 8:00 AM [facility] REPOSITORY TYPE CODE TESTS RESULT OUT OF [...] 15 Performed By: #### L500.4050, L501.4010 #### [facility] [address] [place], [address] TROPONIN-I Collected: 07/20/2018 Status: F Source: [place] 8:00 AM [facility] REPOSITORY TYPE CODE TESTS RESULT OUT OF RANGE REFERENCE UNITS LAB L501.4010 <0.045 ng/mL Normal < 0.015 TROPONIN-I Result Comment: TROPONIN-I EXPECTED VALUES <0.045 Negative 0.045 - 0.590 Consistent with Cardiac Damage > OR = 0.600 Critical Value Not every elevated troponin is indicative of MO. These values should be used with clinical judgement in examining the patient's clinical picture for diagnosis. To establish a diagnosis of MO versus myocardial injury, there must be a demonstrated rise and/or fall in the troponin values, in addition to ischemic symptoms, EKG changes, new regional wall motion abnormality, and/or angiographical evidence. PLEASE NOTE: REFERENCE RANGES EDITED 18 Performed By: #### L500.4050, L501.4010 #### [facility] [address] [facility] [place], [address] LACTIC ACID Collected: 07/20/2018 Status: F Source: [place] 8:00 AM [facility] REPOSITORY Order Comment: Yes/No query for Sepsis Lactate Rule Y TYPE CODE TESTS RESULT OUT OF REFERENCE UNITS RANGE LAB L503.6005 0.4-2.0 mmol/L High alert LACTIC ACID 5.9 Result Comment: Critical Result(s) Called at: 08:38:50 07/20/2018 by: Lachelle Urban Performed By: #### L503.6005 #### [facility] [address] [place], [address] PROTHROMBIN TIME W/INR Collected: 07/20/2018 Status: F Source: [place] 8:00 AM [facility] REPOSITORY TYPE CODE TESTS RESULT OUT OF RANGE REFERENCE UNITS LAB L300.4150 11.7-14.9 SECONDS Normal PROTIME 13.4 LAB L300.4200 Normal INR 1.0 Performed By: #### L300.3900, L300.4310 #### [facility] [address] [place], [address] PARTIAL THROMBOPLAST Collected: 07/20/2018 Status: F Source: [place] TIME 8:00 AM [facility] REPOSITORY TYPE CODE TESTS RESULT OUT OF REFERENCE UNITS RANGE LAB L300.4310 24.1-36.2 Seconds Low PTT 23.9 Performed By: #### L300.3900, L300.4310 #### [facility] [address] [facility] [place], [address] Observed: 07/20/2018 Status: F Source: [place] CULTURE, BLOOD (WB) 8:00 AM [facility] REPOSITORY BC No growth in 5 days. Performed By: #### M200.1000 #### [facility] [address] [facility] [place], [address] CHEST 1 VIEW Observed: 07/20/2018 Status: F Source: [place] (PORTABLE) 7:58 AM [facility] REPOSITORY [facility] Imaging Services [address] [place] [address] Chest 1 View (Portable) MR#: [id number] Acct: [id number] Name: JIMENEZ WYNN Rep #: [id number] : 1935 F 82 From: Jourdan De La Fuente MD PCP: Clement Bueno MD Status: REG ER Study: Chest 1 View (Portable) Date of Exam: 07/20/18 Exam# [id number] Ordering Dr: Matias Cortes MD STUDY: X-RAY [...] La Fuente MD at 8:36 EDT Tel [phone], Service support , CC: Clement Bueno MD; Matias Cortes MD Band Scroll Saw Operator: Signed LIPID PROFILE Collected: 07/07/2018 Status: F Source: [place] 6:20 AM [facility] REPOSITORY Order Comment: ROOM 204 TYPE CODE [...] VLDL 12 Performed By: #### L500.4100 #### [facility] [address] [place], [address] HEMOGLOBIN A1C Collected: 07/07/2018 Status: F Source: [place] 6:20 AM [facility] REPOSITORY Order Comment: ROOM 204 TYPE CODE TESTS RESULT OUT OF RANGE REFERENCE UNITS LAB L501.9985 4.2-6.3 % High HGB A1C 10.0 Performed By: #### L501.9985 #### [facility] [address] [place], [address] VITAMIN D,25 HYDROXY Collected: 07/07/2018 Status: F Source: [place] 6:20 AM [facility] REPOSITORY Order Comment: ROOM 204 TYPE CODE TESTS RESULT OUT OF RANGE REFERENCE UNITS LAB L506.1000 29.95-100.01 ng/mL Normal Vitamin D 39.8 25-OH Result Comment: Vitamin D 25(OH) Status Range Deficiency <20 ng/mL (50nmol/L) Insuffciency 20 - 30 ng/mL (50 - 75 nmol/L) Sufficiency 30 - 100 ng/mL (75 - 250 nmol/L) Toxicity >100 ng/mL (>250 nmol/L) Performed By: #### L506.1000 #### [facility] [address] [place], [address] LIVER PROFILE Collected: 06/09/2018 Status: F Source: [place] 6:20 AM [facility] REPOSITORY Order Comment: 204 TYPE CODE TESTS [...] 0.14 Performed By: #### L500.3400, L500.4100 #### [facility] [address] [place], [address] LIPID PROFILE Collected: 06/09/2018 Status: F Source: [place] 6:20 AM [facility] REPOSITORY Order Comment: 204 TYPE CODE TESTS [...] 7 Performed By: #### L500.3400, L500.4100 #### [facility] [address] [place], [address] 12 LEAD ELECTROCARDIOGRAM Observed: 06/07/2018 Status: F Source: [place] 2:26 PM [facility] REPOSITORY [facility] Cardiovascular Services [address] [place] [address] 12 Lead EKG 06/04/1827 MR#: [id number] Acct: [id number] Name: JIMENEZ WYNN Rep #: [id number] : 1935 82 From: Charly Ross MD [...] wave progression Confirmed by CODY MERCER, CHARLY ([id number]), sound editor SADIQ BUENO ([id number]) on 06/07/2018 2:26:22 PM Referred By: Confirmed By:CHARLY ROSS MD 06/07/18 1426 Date Charly Ross MD CC: Clement Bueno MD; Charly San MD Signed EMERGENCY DEPARTMENT Observed: 06/04/2018 Status: F Source: [place] SUMMARY 9:51 AM [facility] REPOSITORY [facility] Medical Records Department [address] [place] [address] Emergency Department Summary 06/04/18 0949 MR#: [id number] Acct: [id number] Name: JIMENEZ WYNN Rep #: [id number] : 1935 82 From: Charly San MD [...] sees cardiology she is to follow-up with kenney. Otherwise she will be discharged in stable condition Impression: SVT resolved This note was generated with [employer] dictation software. It may contain incorrect words, spelling, and punctuation that were not noted in review of the chart prior to signing ED Disposition - Plan for ED Patient: Disposition: Home or Assisted Living Chief Complaint: Palpitations Instructions: ED Tachycardia Pat PSVT Referrals: Tracy Jones DO [Primary Care Provider] - 3-5 Days What to do if you have Problems For any increased pain, shortness of breath, bleeding, nausea or vomiting, chest pain, or any unexpected problems, contact your Primary Care Provider. Call [facility] ([phone]) or report to the closest Emergency Room. Call 911 if necessary. 06/04/18 0951 <Electronically signed by Charly San MD> Date Charly San MD Cosigner Signature (If Indicated): Date CC: Tracy Jones DO CARDIOLOGY VISIT Observed: 05/26/2018 Status: F Source: [place] REPORT 12:48 PM [facility] REPOSITORY [facility] [address] [place] [address]. 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 Accompanied by: Daughter Is patient [...] (valve) insufficiency (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) Hypothyroidism [...] LEAD ELECTROCARDIOGRAM Observed: 05/13/2018 Status: F Source: [place] 2:07 PM [facility] REPOSITORY [facility] Cardiovascular Services [address] [place] [address] 12 Lead EKG 05/09/18 0710 MR#: [id number] Acct: [id number] Name: JIMENEZ WYNN Rep #: [id number] : 1935 82 From: Charly Ross MD Attending Dr: Margoth Carroll MD Status: DIS IN Ordering Dr: Jone Olivares MD Date: 05/09/18 Location: [facility] Sex: F C Admitted: 05/09/18 Test Reason : RYM Blood Pressure : / mmHG Vent. Rate [...] Abnormal ECG Confirmed by CODY MERCER, CHARLY ([id number]), sound editor SADIQ BUENO ([id number]) on 05/13/2018 2:07:12 PM Referred By: LIZABETH Confirmed By:CHARLY ROSS MD 05/13/18 1407 Date Charly Ross MD CC: Tracy Jones DO; Margoth Carroll MD; Jone Olivares MD Signed 12 LEAD ELECTROCARDIOGRAM Observed: 05/13/2018 Status: F Source: [place] 2:05 PM [facility] REPOSITORY [facility] Cardiovascular Services [address] [place] [address] 12 Lead EKG 05/10/18 0528 MR#: [id number] Acct: [id number] Name: JIMENEZ WYNN Rep #: [id number] : 1935 82 From: Charly Ross MD Attending Dr: Margoth Carroll MD Status: DIS IN Ordering Dr: Margoth Carroll MD Date: 05/10/18 Location: [facility] Sex: F C Admitted: 05/09/18 Test Reason : AM EKG Blood Pressure : / mmHG Vent. Rate : 063 BPM Atrial Rate : 063 BPM P-R Int : 142 ms QRS Dur : 090 ms QT Int : 424 ms P-R-T Axes : 021 -25 010 degrees QTc Int : 433 ms Normal sinus rhythm Normal ECG Confirmed by CODY MERCER, CHARLY ([id number]), sound editor SADIQ BUENO ([id number]) on 05/13/2018 2:05:31 PM Referred By: COURTNEY Confirmed By:CHARLY ORSS MD 05/13/18 1405 Date Charly Ross MD CC: Tracy Jones DO; Margoth Carroll MD Signed DISCHARGE SUMMARY Observed: 05/10/2018 Status: F Source: [place] 3:37 PM [facility] REPOSITORY [facility] Medical Records Department [address] [place] [address] Discharge Summary 05/10/18 1353 MR#: [id number] Acct: [id number] Name: JIMENEZ WYNN Rep #: [id number] : 1935 82 From: Margoth Carroll MD PCP: Tracy Jones DO Status: ADM IN Y Location: [place] [address] Discharge Date and Diagnosis - Problem List [...] (valve) insufficiency (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 [...] 2 diabetes. She was admitted from the skilled nursing with a complaint of shortness of breath [...] follow-up with her primary care doctor and warehouse delivery driver in 1 week. Patient seen and examined [...] facility today. To follow-up with PCP and warehouse delivery driver. Weight Bearing Status: Weight bearing as tolerated [...] applicable Code Visit Inpatient E AND M: 48888 Disch Hosp 05/10/18 1537 <Electronically signed by Margoth Carroll MD> Date Margoth Carroll MD Cosigner Signature (if applicable): Date CC: Tracy Jones DO; Margoth Carroll MD Signed 12 LEAD ELECTROCARDIOGRAM Observed: 05/10/2018 Status: F Source: [place] 3:12 PM [facility] REPOSITORY [facility] Cardiovascular Services [address] [place] [address] 12 Lead EKG 05/08/18 1829 MR#: [id number] Acct: [id number] Name: JIMENEZ WYNN Rep #: [id number] : 1935 82 From: Markus Cueto MD Attending Dr: Margoth Carroll MD Status: ADM IN Ordering Dr: Blake Powers MD Date: 05/08/18 Location: [facility] Sex: F C Admitted: 05/09/18 Test Reason [...] ECG Confirmed by MARKUS CUETO MD ([id number]), sound editor SADIQ BUENO ([id number]) on 05/10/2018 3:11:47 PM Referred By: MIGUEL Confirmed By:MARKUS CUETO MD 05/10/18 1511 Date Markus Cueto MD CC: Tracy Jones DO; Margoth Carroll MD; Blake Powers MD Signed DISCHARGE INSTRUCTION Observed: 05/10/2018 Status: F Source: [place] 2:40 PM [facility] REPOSITORY [facility] Medical Records Department [address] [place] [address] Instructions for Home/Discharge Instructions 05/10/18 1440 MR#: [id number] Acct: [id number] Name: JIMENEZ WYNN Rep #: [id number] : 1935 82 From: Margoth Carroll MD [...] MD CC: Pat Austin MD; Tracy Jones TRANSFER TO EXTENDED Observed: 05/10/2018 Status: F Source: [facility] 2:05 PM [facility] REPOSITORY [facility] Medical Records Department [address] [place] [address] Transfer to Extended Care MR#: [id number] Acct: [id number] Name: JIMENEZ WYNN Rep #: [id number] : 1935 82 From: Margoth Carroll MD PCP: Tracy Jones DO Status: ADM IN JIMENEZ WYNN (Patient) (Health Ins. Claim No.) (Day of Discharge to Facility) Certification of patient admission REQUIRED AT TIME OF ADMISSION. I CERTIFY THAT POST-HOSPITAL ECF SERVICES ARE REQUIRED TO BE GIVEN ON AN IN-PATIENT BASIS BECAUSE OF THE ABOVE NAMED PATIENT'S NEED FOR [facility] CARE ON A CONTINUING BASIS FOR THE [...] Than 30 Days Type of Care Needed: [facility]/Assisted Living Rehab Potential: Good Prognosis: Good - [...] STRESS REPORT Observed: 05/10/2018 Status: F Source: [place] 1:25 PM [facility] REPOSITORY [facility] Cardiovascular Services [address] [place] [address] MR#: [id number] Acct: [id number] Name: JIMENEZ WYNN Rep #: [id number] : 1935 82 From: Markus Cueto MD [...] Date Dictated: 05/10/18 1323 Date Transcribed: 05/10/18 1323 Band Scroll Saw Operator: CO Signed BEDSIDE GLUCOSE Collected: 05/10/2018 Status: F Source: [place] 12:52 PM [facility] REPOSITORY TYPE CODE TESTS RESULT OUT OF REFERENCE UNITS RANGE LAB L501.080 70-110 mg/dL High BEDSIDE GLU 161 Result Comment: MANAGEMENT OF PATIENT CARE PER NURSING PROTOCOL Performed By: #### L501.080 #### [facility] [place] [place] Laboratory Point of Care [address] [place], [place] [address] BEDSIDE GLUCOSE Collected: 05/10/2018 Status: F Source: [place] 6:53 AM [facility] REPOSITORY TYPE CODE TESTS RESULT OUT OF RANGE REFERENCE UNITS LAB L501.080 70-110 mg/dL Normal BEDSIDE GLU 99 Result Comment: MANAGEMENT OF PATIENT CARE PER NURSING PROTOCOL Performed By: #### L501.080 #### [facility] Laboratory Point of Care [address] [place], [place] [address] BASIC METABOLIC Collected: 05/10/2018 Status: F Source: [place] PROFILE (BMP) 5:00 AM [facility] REPOSITORY TYPE CODE TESTS RESULT OUT OF [...] GAP 7 Performed By: #### L500.2500 #### [facility] [address] [place], [address] PROTHROMBIN TIME W/INR Collected: 05/10/2018 Status: F Source: [place] 5:00 AM [facility] REPOSITORY TYPE CODE TESTS RESULT OUT OF RANGE REFERENCE UNITS LAB L300.4150 11.7-14.9 SECONDS Normal PROTIME 14.2 LAB L300.4200 Normal INR 1.1 Performed By: #### L300.3900, L300.4310 #### [facility] [address] [place], [place], [address] PARTIAL THROMBOPLAST Collected: 05/10/2018 Status: F Source: [place] TIME 5:00 AM [facility] REPOSITORY TYPE CODE TESTS RESULT OUT OF RANGE REFERENCE UNITS LAB L300.4310 24.1-36.2 Seconds Normal PTT 34.3 Performed By: #### L300.3900, L300.4310 #### [facility] [address] [place], [address] CBC W/DIFF, AUTOMATED Collected: 05/10/2018 Status: F Source: [place] 5:00 AM [facility] REPOSITORY TYPE CODE TESTS RESULT OUT OF [...] Lymph 1.27 Performed By: #### L100.0100 #### [facility] [address] [place], [address] BEDSIDE GLUCOSE Collected: 05/09/2018 Status: F Source: [place] 9:25 PM [facility] REPOSITORY TYPE CODE TESTS RESULT OUT OF REFERENCE UNITS RANGE LAB L501.080 70-110 mg/dL High BEDSIDE GLU 183 Result Comment: MANAGEMENT OF PATIENT CARE PER NURSING PROTOCOL Performed By: #### L501.080 #### [facility] Point of Care [address] [place] [address] BEDSIDE GLUCOSE Collected: 05/09/2018 Status: F Source: [place] 4:45 PM [facility] REPOSITORY TYPE CODE TESTS RESULT OUT OF REFERENCE UNITS RANGE LAB L501.080 70-110 mg/dL High BEDSIDE GLU 246 Result Comment: MANAGEMENT OF PATIENT CARE PER NURSING PROTOCOL Performed By: #### L501.080 #### [facility] Point of Care [address] [place] [address] CTA CHEST W/WO Observed: 05/09/2018 Status: F Source: [place] CONTRAST 2:31 PM [facility] REPOSITORY [facility] Imaging Services [address] [facility] [address] CTA Chest W/WO Contrast MR#: [id number] Acct: [id number] Name: JIMENEZ WYNN Rep #: [id number] : 1935 F 82 From: Cosme Melendez MD PCP: Tracy Jones DO Status: ADM IN Study: CTA Chest W/WO Contrast Date of Exam: 05/09/18 Exam# [id number] Ordering Dr: Margoth Carroll MD STUDY: CTA [...] , CT/CTA Chest W/WO Contrast CC: Tracy Carroll MD Band Scroll Saw Operator: Signed D-DIMER QUANTITATIVE Collected: 05/09/2018 Status: F Source: [place] (DVT/PE) 1:55 PM [facility] REPOSITORY TYPE CODE TESTS RESULT OUT OF RANGE REFERENCE UNITS LAB L300.8000 0.27-0.49 FEU/ug/m High alert D-DIMER 0.87 QUANT Result Comment: D-Dimer ELEVATED (>0.49): Additional studies and clinical assessments are indicated to conclude diagnosis of: Deep Vein Thrombosis (DVT) or Pulmonary Embolism (PE) CRITICAL VALUE VERIFIED. CALLED TO MARNI PETERSON 05/09/18 1429 Brandi Corona. RESULTS READ BACK BY SAME . Performed By: #### L300.8000 #### [facility] [address] [place], [address] CONSULTATION Observed: 05/09/2018 Status: F Source: [place] 11:39 AM [facility] REPOSITORY [facility] Medical Records Department [address] [place] [address] Consultation 05/09/18 1129 MR#: [id number] Acct: [id number] Name: JIMENEZ WYNN Rep #: [id number] : 1935 82 From: Pat Austin MD PCP: Tracy Jones DO Status: ADM KIANA Y Location: [place] [address] Problem List (1) SVT (supraventricular tachycardia) Status: [...] (valve) insufficiency (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 Hypothyroidism (Chronic) COPD (chronic obstructive pulmonary disease) (Chronic) Hyperlipidemia (Chronic) Type 2 diabetes mellitus (Chronic) Surgical History: hysterectomy, total hip arthroplasty, - - Fractured femur - *Family History Maternal History Items: No pertinent history Paternal History Items: No pertinent history Lives: Group Home Smoking Status: Never smoker Alcohol: None Drugs: [...] Pat Austin MD> Date Pat Austin MD Cosigner Signature (if applicable): Date CC: Pat Austin MD; Tracy Jones DO Signed BEDSIDE GLUCOSE Collected: 05/09/2018 Status: F Source: [place] 11:35 AM [facility] REPOSITORY TYPE CODE TESTS RESULT OUT OF REFERENCE UNITS RANGE LAB L501.080 70-110 mg/dL High BEDSIDE GLU 308 Result Comment: MANAGEMENT OF PATIENT CARE PER NURSING PROTOCOL Performed By: #### L501.080 #### [facility] Point of Care [address] [place] [address] TROPONIN-I Collected: 05/09/2018 Status: F Source: [place] 7:50 AM [facility] REPOSITORY Order Comment: 'TROP' Serial specimen #1, #2 or #3: 3 TYPE CODE TESTS RESULT OUT OF RANGE REFERENCE UNITS LAB L501.4010 <0.045 ng/mL High 0.387 TROPONIN-I Result Comment: TROPONIN-I EXPECTED VALUES <0.045 Negative 0.045 - 0.590 Consistent with Cardiac Damage > OR = 0.600 Critical Value Not every elevated troponin is indicative of MO. These values should be used with clinical judgement in examining the patient's clinical picture for diagnosis. To establish a diagnosis of MO versus myocardial injury, there must be a demonstrated rise and/or fall in the troponin values, in addition to ischemic symptoms, EKG changes, new regional wall motion abnormality, and/or angiographical evidence. PLEASE NOTE: REFERENCE RANGES EDITED 18 Performed By: #### L501.4010 #### [facility] [address] [place], [address] BEDSIDE GLUCOSE Collected: 05/09/2018 Status: F Source: [place] 6:45 AM [facility] REPOSITORY TYPE CODE TESTS RESULT OUT OF REFERENCE UNITS RANGE LAB L501.080 70-110 mg/dL High BEDSIDE GLU 165 Result Comment: MANAGEMENT OF PATIENT CARE PER NURSING PROTOCOL Performed By: #### L501.080 #### [facility] Point of Care [address] [place] [address] HISTORY AND PHYSICAL Observed: 05/09/2018 Status: F Source: [place] EXAM 5:51 AM [facility] REPOSITORY [facility] Medical Records Department [address] [place] [address] History and Physical 05/08/189 MR#: [id number] Acct: [id number] Name: JIMENEZ WYNN Rep #: [id number] : 1935 82 From: Jone Olivares MD PCP: Tracy Jones DO Status: ADM KIANA Y Location: [place] [address] Problem List (1) DEMETRA (acute kidney injury) Status: Acute (2) SVT (supraventricular tachycardia) Status: Acute (3) Nonrheumatic tricuspid (valve) insufficiency Status: Chronic (4) Atherosclerotic heart disease of [place] coronary artery without angina pectoris Status: Chronic [...] (valve) insufficiency (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 2) Elevated trops: Probably type II MO. Will consult cards. Probably no aggressive care [...] 05/09/2018 Status: F Source: [place] 4:33 AM [facility] REPOSITORY TYPE CODE TESTS RESULT OUT OF RANGE REFERENCE UNITS LAB L300.4150 11.7-14.9 SECONDS Normal PROTIME 14.0 LAB L300.4200 Normal INR 1.1 Performed By: #### L300.3900 #### [facility] [address] [place], [address] TROPONIN-I Collected: 05/09/2018 Status: F Source: [place] 4:33 AM [facility] REPOSITORY Order Comment: 'TROP' Serial specimen #1, #2 or #3: 2 TYPE CODE TESTS RESULT OUT OF RANGE REFERENCE UNITS LAB L501.4010 <0.045 ng/mL High 0.383 TROPONIN-I Result Comment: TROPONIN-I EXPECTED VALUES <0.045 Negative 0.045 - 0.590 Consistent with Cardiac Damage > OR = 0.600 Critical Value Not every elevated troponin is indicative of MO. These values should be used with clinical judgement in examining the patient's clinical picture for diagnosis. To establish a diagnosis of MO versus myocardial injury, there must be a demonstrated rise and/or fall in the troponin values, in addition to ischemic symptoms, EKG changes, new regional wall motion abnormality, and/or angiographical evidence. PLEASE NOTE: REFERENCE RANGES EDITED 18 Performed By: #### L501.4010 #### [facility] [address] [place], [address] BASIC METABOLIC Collected: 05/09/2018 Status: F Source: [place] PROFILE (BMP) 4:33 AM [facility] REPOSITORY TYPE CODE TESTS RESULT OUT OF [...] GAP 10 Performed By: #### L500.2500 #### [facility] [address] [facility] [place], [address] EMERGENCY DEPARTMENT Observed: 05/09/2018 Status: F Source: [place] SUMMARY 2:01 AM [facility] REPOSITORY [facility] Medical Records Department [address] [facility] [place] [address] Emergency Department Summary 05/08/182023 MR#: [id number] Acct: [id number] Name: JIMENEZ WYNN Rep #: [id number] : 1935 82 From: Blake Powers MD [...] 2. Conversion with adenosine. 3. Hyperglycemia with uxn-hdkpyyi-wmvojyjoj diabetes mellitus. 4. Acute renal insufficiency. 5. Critical care time 30 minutes. This note was generated with [employer] dictation software. It may contain incorrect words, [...] problems, contact your Primary Care Provider. Call [facility] ([phone]) or report to the closest Emergency Room. Call 911 if necessary. 05/09/18 0201 <Electronically signed by Blake Powers MD> Date Blake Powers MD Cosigner Signature (If Indicated): Date CC: Tracy Jones DO TROPONIN-I Collected: 05/09/2018 Status: F Source: [place] 1:58 AM [facility] REPOSITORY Order Comment: 'TROP' Serial specimen #1, #2 or #3: 1 TYPE CODE TESTS RESULT OUT OF RANGE REFERENCE UNITS LAB L501.4010 <0.045 ng/mL High 0.372 TROPONIN-I Result Comment: TROPONIN-I EXPECTED VALUES <0.045 Negative 0.045 - 0.590 Consistent with Cardiac Damage > OR = 0.600 Critical Value Not every elevated troponin is indicative of MO. These values should be used with clinical judgement in examining the patient's clinical picture for diagnosis. To establish a diagnosis of MO versus myocardial injury, there must be a demonstrated rise and/or fall in the troponin values, in addition to ischemic symptoms, EKG changes, new regional wall motion abnormality, and/or angiographical evidence. PLEASE NOTE: REFERENCE RANGES EDITED 18 Performed By: #### L501.4010 #### [facility] [address] [place], [place], [address] BEDSIDE GLUCOSE Collected: 05/08/2018 Status: F Source: [place] 11:31 PM [facility] REPOSITORY TYPE CODE TESTS RESULT OUT OF REFERENCE UNITS RANGE LAB L501.080 70-110 mg/dL High BEDSIDE GLU 210 Result Comment: MANAGEMENT OF PATIENT CARE PER NURSING PROTOCOL Performed By: #### L501.080 #### [facility] Point of Care [address] [place] [address] CBC W/DIFF, AUTOMATED Collected: 05/08/2018 Status: F Source: [place] 6:35 PM [facility] REPOSITORY TYPE CODE TESTS RESULT OUT OF [...] Lymph 1.42 Performed By: #### L100.0100 #### [facility] [address] [place], [address] BASIC METABOLIC Collected: 05/08/2018 Status: F Source: [place] PROFILE (BMP) 6:35 PM [facility] REPOSITORY TYPE CODE TESTS RESULT OUT OF [...] Performed By: #### L500.2500, L501.4010, L501.9520 #### [facility] [address] [place], [address] TROPONIN-I Collected: 05/08/2018 Status: F Source: [place] 6:35 PM [facility] REPOSITORY TYPE CODE TESTS RESULT OUT OF RANGE REFERENCE UNITS LAB L501.4010 <0.045 ng/mL High 0.082 TROPONIN-I Result Comment: TROPONIN-I EXPECTED VALUES <0.045 Negative 0.045 - 0.590 Consistent with Cardiac Damage > OR = 0.600 Critical Value Not every elevated troponin is indicative of MO. These values should be used with clinical judgement in examining the patient's clinical picture for diagnosis. To establish a diagnosis of MO versus myocardial injury, there must be a demonstrated rise and/or fall in the troponin values, in addition to ischemic symptoms, EKG changes, new regional wall motion abnormality, and/or angiographical evidence. PLEASE NOTE: REFERENCE RANGES EDITED 18 Performed By: #### L500.2500, L501.4010, L501.9520 #### [facility] [address] [place], [address] THYROID STIM HORMONE Collected: 05/08/2018 Status: F Source: [place] (TSH) 6:35 PM [facility] REPOSITORY TYPE CODE TESTS RESULT OUT OF RANGE REFERENCE UNITS LAB L501.9520 0.358-3.74 uIU/mL Normal TSH 2.96 Performed By: #### L500.2500, L501.4010, L501.9520 #### [facility] [address] [place], [address] CHEST 1 VIEW Observed: 05/08/2018 Status: F Source: [place] (PORTABLE) 6:32 PM [facility] REPOSITORY [facility] Imaging Services [address] [facility] [place] [address] Chest 1 View (Portable) MR#: [id number] Acct: [id number] Name: JIMENEZ WYNN Rep #: [id number] : 1935 F 82 From: Jose G Vo MD PCP: Tracy Jones DO Status: [facility] Study: Chest 1 View (Portable) Date of Exam: 05/08/18 Exam# [id number] Ordering Dr: Blake Powers MD STUDY: X-RAY [...] CC: Tracy Jones DO; Blake Powers MD Band Scroll Saw Operator: Signed CBC W/DIFF, AUTOMATED Collected: 04/14/2018 Status: F Source: [place] 5:40 AM [facility] REPOSITORY Order Comment: ROOM 204 ZUR[place] TYPE [...] Lymph 1.60 Performed By: #### L100.0100 #### [facility] [address] [place], [address] HEMOGLOBIN A1C Collected: 04/14/2018 Status: F Source: [place] 5:40 AM [facility] REPOSITORY Order Comment: ROOM 204 [place] TYPE CODE TESTS RESULT OUT OF RANGE REFERENCE UNITS LAB L501.9985 4.2-6.3 % High HGB A1C 9.1 Performed By: #### L501.9985 #### [facility] [address] [place], [address] COMPREHENSIVE METABOLIC Collected: 04/14/2018 Status: F Source: [facility] 5:40 AM [facility] REPOSITORY Order Comment: ROOM 204 [place] TYPE [...] 9 Performed By: #### L500.4050, L503.6150 #### [facility] [address] [place], [address] IRON Collected: 04/14/2018 Status: F Source: [place] 5:40 AM [facility] REPOSITORY Order Comment: ROOM 204 [place] TYPE CODE TESTS RESULT OUT OF RANGE REFERENCE UNITS LAB L503.6150 50-170 ug/dL Low IRON 42 Performed By: #### L500.4050, L503.6150 #### [facility] [address] [facility] [place], [address] VITAMIN B12 Collected: 04/14/2018 Status: F Source: [place] 5:40 AM [facility] REPOSITORY Order Comment: ROOM 204 [place] TYPE CODE TESTS RESULT OUT OF RANGE REFERENCE UNITS LAB L503.0105 211-911 pg/mL Normal Vitamin B12 350 Performed By: #### L503.0105 #### [facility] [address] [facility] [place], [address] 12 LEAD ELECTROCARDIOGRAM Observed: 03/25/2018 Status: F Source: [place] 10:39 AM [facility] REPOSITORY [facility] Cardiovascular Services [address] [place], [place] [address] [address] 12 Lead EKG 04/30/18 1402 MR#: [id number] Acct: [id number] Name: JIMENEZ WYNN Rep #: [id number] : 1935 82 From: Charly Ross MD [...] ECG Confirmed by CODY MERCER, CHARLY ([id number]), sound editor SADIQ BUENO ([id number]) on 03/03/2018 9:08:14 AM Referred By: SL Confirmed By:CHARLY ROSS MD 03/03/18 0908 Date Charly Ross MD CC: Yefri Bartholomew DO; Tracy Jones DO; Jeremi Rosales DO Signed 12 LEAD ELECTROCARDIOGRAM Observed: 03/03/2018 Status: F Source: [place] 6:10 PM [facility] REPOSITORY [facility] Cardiovascular Services [address] [place] [address] 12 Lead EKG 03/01/18 1402 MR#: [id number] Acct: [id number] Name: JIMENEZ WYNN Rep #: [id number] : 1935 82 From: Charly Ross MD [...] Abnormal ECG Confirmed by CHARLY ROSS MD ([id number]), sound editor SADIQ BUENO ([id number]) on 03/03/2018 9:08:14 AM Referred By: DARA Confirmed By:CHARLY ROSS MD 03/03/18907 Date Charly Ross MD CC: Tracy Jones DO; Jeremi Rosales DO Signed 12 LEAD ELECTROCARDIOGRAM Observed: 03/03/2018 Status: F Source: [place] 6:10 PM [facility] REPOSITORY [facility] Cardiovascular Services [address] [place] [address] 12 Lead EKG 03/01/18 1416 MR#: [id number] Acct: [id number] Name: JIMENEZ WYNN Rep #: [id number] : 1935 82 From: Charly Ross MD Attending Dr: Yefri Bartholomew DO Status: DIS IN Ordering Dr: Jeremi Rosales DO Date: 03/01/18 Location: [facility] Sex: F C Admitted: 03/01/18 Test Reason [...] Abnormal ECG Confirmed by CHARLY ROSS MD ([id number]), sound editor SADIQ BUENO ([id number]) on 03/03/2018 9:08:35 AM Referred By: PRANAV Confirmed By:CHARLY ROSS MD 03/03/18907 Date Charly Ross MD CC: Yefri Bartholomew DO; Tracy Jones DO; Jeremi Rosales DO Signed DISCHARGE SUMMARY Observed: 03/03/2018 Status: F Source: [place] 1:27 PM [facility] REPOSITORY [facility] Medical Records Department [address] [place] [address] Discharge Summary 03/03/18 1022 MR#: [id number] Acct: [id number] Name: JIMENEZ WYNN Rep #: [id number] : 1935 82 From: Brandi Simpson DINING CAR CONDUCTORAnnie PCP: Tracy Jones DO Status: ADM IN Y Location: [place] [id number] <Brandi Simpson - Last Filed: 03/03/18 10:31> [...] (valve) insufficiency (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 [...] MD When: 1-2 Weeks Disposition: Asstd Living/Non-Skill NH Minutes spent on discharge:: 35 Patient Condition:: [...] (valve) insufficiency (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 Hypothyroidism (Chronic) COPD (chronic obstructive pulmonary disease) (Chronic) Hyperlipidemia (Chronic) Type 2 diabetes mellitus (Chronic) Hospital Course and Treatment Operations: None Procedures: 2-D Echocardiogram Summary of Care Provided: Pt seen and examined independently. I agree with the above DINING CAR CONDUCTOR note. The patient is a 82 year [...] Increased palpitations (irregular heartbeat) Disposition: Asstd Living/Non-Skill NH Patient Condition:: Stable Medical Necessity - Tobacco Use Smoking Status: Never smoker Meaningful Use Info Meaningful Use Diagnoses (Choose all that apply): None applicable Code Visit Inpatient E AND M: 77199 Disch Hosp 03/03/18 1032 <Electronically signed by Brandi Simpson DINING CAR CONDUCTOR-C> Date Brandi PATTERSON 03/03/18 1327<Electronically signed by Yefri Bartholomew DO> Cosigner Signature (if applicable): Date Yefri Bartholomew DO CC: LEONARDO Simpson; Yefri Bartholomew DO; Tracy Jones DO Signed BEDSIDE GLUCOSE Collected: 03/03/2018 Status: F Source: [place] 11:18 AM [facility] REPOSITORY TYPE CODE TESTS RESULT OUT OF REFERENCE UNITS RANGE LAB L501.080 70-110 mg/dL High BEDSIDE GLU 413 Result Comment: MANAGEMENT OF PATIENT CARE PER NURSING PROTOCOL Performed By: #### L501.080 #### [facility] Point of Care [address] [facility] [place] [address] DISCHARGE INSTRUCTION Observed: 03/03/2018 Status: F Source: [place] 10:22 AM [facility] REPOSITORY [facility] Medical Records Department [address] [place] [address] Instructions for Home/Discharge Instructions 03/03/18 1019 MR#: [id number] Acct: [id number] Name: JIMENEZ WYNN Rep #: [id number] : 1935 82 From: Brandi PATTERSON PCP: [...] 03/03/18 03/03/18 1022 <Electronically signed by Brandi Simpson DINING CAR CONDUCTOR-C> Date Brandi Simpson DINING CAR CONDUCTOR-C CC: Tracy Jones DO; Charly Ross MD BEDSIDE GLUCOSE Collected: 03/03/2018 Status: F Source: [place] 6:57 AM [facility] REPOSITORY TYPE CODE TESTS RESULT OUT OF RANGE REFERENCE UNITS LAB L501.080 70-110 mg/dL Normal BEDSIDE GLU 105 Result Comment: MANAGEMENT OF PATIENT CARE PER NURSING PROTOCOL Performed By: #### L501.080 #### [facility] Point of Care [facility] [place] [address] CBC-COMPLETE BLOOD CNT Collected: 03/03/2018 Status: F Source: [place] NO DIFF 5:40 AM [facility] REPOSITORY TYPE CODE TESTS RESULT OUT OF [...] MPV 8.8 Performed By: #### L100.0500 #### [facility] [address] [place], [address] BASIC METABOLIC Collected: 03/03/2018 Status: F Source: [place] PROFILE (BMP) 5:40 AM [facility] REPOSITORY TYPE CODE TESTS RESULT OUT OF [...] GAP 11 Performed By: #### L500.2500 #### [facility] [address] [place], [address] BEDSIDE GLUCOSE Collected: 03/02/2018 Status: F Source: [place] 9:04 PM [facility] REPOSITORY TYPE CODE TESTS RESULT OUT OF REFERENCE UNITS RANGE LAB L501.080 70-110 mg/dL High BEDSIDE GLU 249 Result Comment: MANAGEMENT OF PATIENT CARE PER NURSING PROTOCOL Performed By: #### L501.080 #### [facility] Point of Care [address] [place] [address] BEDSIDE GLUCOSE Collected: 03/02/2018 Status: F Source: [place] 4:07 PM [facility] REPOSITORY TYPE CODE TESTS RESULT OUT OF REFERENCE UNITS RANGE LAB L501.080 70-110 mg/dL Low BEDSIDE GLU 64 Result Comment: MANAGEMENT OF PATIENT CARE PER NURSING PROTOCOL Performed By: #### L501.080 #### [facility] Point of Care [address] [place] [address] ECHOCARDIOGRAM COMPLETE Observed: 03/02/2018 Status: F Source: [place] 2:00 PM [facility] REPOSITORY [facility] Cardiovascular Services [address] [place] [address] Echo Complete 03/02/18 0907 MR#: [id number] Acct: [id number] Name: JIMENEZ WYNN Rep #: [id number] : 1935 82 From: Charly Ross MD Attending Dr: Yefri Bartholomew DO Status: ADM IN Ordering Dr: Mohsen Goncalves MD Date: 03/01/18 Location: PCU Sex: F C Admitted: 03/01/18 Reason For [...] Physician: TRACY JONES Performed By: Екатерина Boss, RDCS, RVT 03/02/18 1400 Date Charly Ross MD CC: Yefri Bartholomew DO; Mohsen Goncalves; Tracy Jones DO Date Dictated: 03/02/18 0907 Date Transcribed: 03/02/18 1400 Band Scroll Saw Operator: Signed BEDSIDE GLUCOSE Collected: 03/02/2018 Status: F Source: [place] 1:16 PM [facility] REPOSITORY TYPE CODE TESTS RESULT OUT OF REFERENCE UNITS RANGE LAB L501.080 70-110 mg/dL High BEDSIDE GLU 370 Result Comment: MANAGEMENT OF PATIENT CARE PER NURSING PROTOCOL Performed By: #### L501.080 #### [facility] Point of Care [address] [place] [address]. [place], [place] [address] Observed: 03/02/2018 Status: F Source: [place] LEGIONELLA ANTIGEN 12:45 PM [facility] URINE REPOSITORY Legionella, UR Legionella Antigen result interpretation: Negative Presumptive negative for Legionella pneumophila serogroup 1 antigen in urine, suggesting no recent or current infection. Legionella Ag, Urine Negative (See interpretation below) Performed By: #### M300.4500 #### [facility] [address] [place] [address]. [place], [address] STREP Observed: 03/02/2018 Status: F Source: [place] PNEUMONIAE ANTIG(UR,CSF) 12:45 PM [facility] REPOSITORY S pneumo Ag URINE INTERPRETATION Negative Urine Presumptive negative for pneumococcal pneumonia, suggesting no current or recent pneumococcal infection. Infection due to S pneumoniae cannot be ruled out since the antigen present in the sample may be below the detection limit of the test. Strep pneumo Test Negative URINE (See interpretation below) Performed By: #### M300.4600 #### [facility] [address] [place], [address] BEDSIDE GLUCOSE Collected: 03/02/2018 Status: F Source: [place] 10:54 AM [facility] REPOSITORY TYPE CODE TESTS RESULT OUT OF REFERENCE UNITS RANGE LAB L501.080 70-110 mg/dL High alert BEDSIDE GLU 465 Result Comment: Repeat Test MANAGEMENT OF PATIENT CARE PER NURSING PROTOCOL Performed By: #### L501.080 #### [facility] Point of Care [address] [place] [address] CONSULTATION Observed: 03/02/2018 Status: F Source: [place] 10:23 AM [facility] REPOSITORY [facility] Medical Records Department [address] [place] [address] Consultation 03/02/18 0641 MR#: [id number] Acct: [id number] Name: JIMENEZ WYNN Rep #: [id number] : 1935 82 From: Markus Cueto MD PCP: Tracy Jones DO Status: ADM IN Y Location: [place] [address] Reason for Consult Date of Consultation: 03/02/18 [...] (valve) insufficiency (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 Hypothyroidism (Chronic) COPD (chronic obstructive pulmonary disease) (Chronic) Hyperlipidemia (Chronic) Type 2 diabetes mellitus (Chronic) Surgical History: hysterectomy, total hip arthroplasty, - - Fractured femur Psychiatric History: No pertinent psych hx TALENT MANAGER History: No pertinent TALENT MANAGER history - *Family History Maternal History Items: [...] % (Auto) Cancelled, Lymph % (Auto) Cancelled, [place] % (Auto) Cancelled, Eos % (Auto) Cancelled, [...] 03/02/2018 Status: F Source: [place] 6:55 AM [facility] REPOSITORY TYPE CODE TESTS RESULT OUT OF REFERENCE UNITS RANGE LAB L501.080 70-110 mg/dL High BEDSIDE GLU 224 Result Comment: MANAGEMENT OF PATIENT CARE PER NURSING PROTOCOL Performed By: #### L501.080 #### [facility] Point of Care [address] [place] [address] CBC W/DIFF, AUTOMATED Collected: 03/02/2018 Status: F Source: [place] 5:50 AM [facility] REPOSITORY Order Comment: REDRAW. PREVIOUS SPECIMEN REJECTED [...] OVALOCYTE RARE Performed By: #### L100.0100 #### [facility] [address] [facility] [place], [address] TROPONIN-I Collected: 03/02/2018 Status: F Source: [place] 4:45 AM [facility] REPOSITORY Order Comment: 'TROP' Serial specimen #1, #2, #3, or #4: 4 TYPE CODE TESTS RESULT OUT OF RANGE REFERENCE UNITS LAB L501.4010 <0.06 ng/mL High 0.15 TROPONIN-I Result Comment: TROPONIN-I EXPECTED VALUES <0.05 NEGATIVE 0.06 - 0.59 AT RISK OF MO > OR = 0.60 SUGGEST MO Performed By: #### L501.4010, L500.2500 #### [facility] [address] [facility] [place], [address] BASIC METABOLIC Collected: 03/02/2018 Status: F Source: [place] PROFILE (BMP) 4:45 AM [facility] REPOSITORY Order Comment: 'TROP' Serial specimen #1, [...] 8 Performed By: #### L501.4010, L500.2500 #### [facility] [address] [place], [address] MAGNESIUM Collected: 03/02/2018 Status: F Source: [place] 4:45 AM [facility] REPOSITORY TYPE CODE TESTS RESULT OUT OF RANGE REFERENCE UNITS LAB L501.5200 1.6-2.6 mg/dL Low MG 1.5 Performed By: #### L501.5200 #### [facility] [address] [place], [address] BEDSIDE GLUCOSE Collected: 03/01/2018 Status: F Source: [place] 10:31 PM [facility] REPOSITORY TYPE CODE TESTS RESULT OUT OF REFERENCE UNITS RANGE LAB L501.080 70-110 mg/dL High BEDSIDE GLU 339 Result Comment: MANAGEMENT OF PATIENT CARE PER NURSING PROTOCOL Performed By: #### L501.080 #### [facility] Point of Care [address] [place] [address]. [place] [address] TROPONIN-I Collected: 03/01/2018 Status: F Source: [place] 6:55 PM [facility] REPOSITORY Order Comment: 'TROP' Serial specimen #1, #2, #3, or #4: 2 TYPE CODE TESTS RESULT OUT OF RANGE REFERENCE UNITS LAB L501.4010 <0.06 ng/mL High 0.15 TROPONIN-I Result Comment: TROPONIN-I EXPECTED VALUES <0.05 NEGATIVE 0.06 - 0.59 AT RISK OF MO > OR = 0.60 SUGGEST MO Performed By: #### L501.4010 #### [facility] [address] [place] [address]. [place], [address] POTASSIUM Collected: 03/01/2018 Status: F Source: [place] 6:55 PM [facility] REPOSITORY TYPE CODE TESTS RESULT OUT OF RANGE REFERENCE UNITS LAB L501.5600 3.5-5.1 mmol/L Normal K 5.1 Performed By: #### L501.5600 #### [facility] [address] [place] [address]. [place], [address] THYROID STIM HORMONE Collected: 03/01/2018 Status: F Source: [place] (TSH) 6:55 PM [facility] REPOSITORY TYPE CODE TESTS RESULT OUT OF RANGE REFERENCE UNITS LAB L501.9520 0.358-3.74 uIU/mL Normal TSH 2.14 Performed By: #### L501.9520 #### [facility] [address] [place], [place] [address]. [place], [address] HISTORY AND PHYSICAL Observed: 03/01/2018 Status: F Source: [place] EXAM 5:14 PM [facility] REPOSITORY [facility] Medical Records Department [address] [place] [address] History and Physical 03/01/18 1557 MR#: [id number] Acct: [id number] Name: JIMENEZ WYNN Rep #: [id number] : 1935 82 From: Mohsen Goncalves MD PCP: Tracy Jones DO Status: ADM IN Y Location: [place] [address] Problem List (1) Takotsubo cardiomyopathy Status: Chronic (2) Nonrheumatic tricuspid (valve) insufficiency Status: Chronic (3) Atherosclerotic heart disease of [place] coronary artery without angina pectoris Status: Chronic [...] (valve) insufficiency (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 [...] femur Psychiatric History: No pertinent psych hx TALENT MANAGER History: No pertinent TALENT MANAGER history Smoking Status: Never smoker Alcohol: None [...] Subcu heparin. This note was generated with [employer] dictation software. It may contain incorrect words, spelling, and punctuation that were not noted in checking the note before signing. Code Visit Inpatient E AND M: 98929 Init Hosp L3 03/01/18 1714 <Electronically signed by Mohsen Goncalves MD> Date Mohsen Goncalves MD Cosigner Signature: Date (if applicable) CC: Mohsen Goncalves; Tracy Jones DO Signed BEDSIDE GLUCOSE Collected: 03/01/2018 Status: F Source: [place] 4:10 PM [facility] REPOSITORY TYPE CODE TESTS RESULT OUT OF REFERENCE UNITS RANGE LAB L501.080 70-110 mg/dL High BEDSIDE GLU 264 Result Comment: MANAGEMENT OF PATIENT CARE PER NURSING PROTOCOL Performed By: #### L501.080 #### [facility] Point [facility] Care [address] [facility] [place], [place] [address] Observed: 03/01/2018 Status: F Source: [place] CULTURE, BLOOD (WB) 3:44 PM [facility] REPOSITORY No growth in 5 days. Performed By: #### M200.1000 #### [facility] [address] [place], [place], [address] Observed: 03/01/2018 Status: F Source: [place] CULTURE, BLOOD (WB) 3:39 PM [facility] REPOSITORY GRAM STAIN: GRAM POSITIVE COCCI CALLED TO LEANN HARDY 03/02/18 1722 BY CPOPIEL Possible skin contamination, further Identification and sensitivity will be performed only by physician's request. ORGANISM 1: Coag Negative Staph Amount Growth Growth Performed By: #### M200.1000, M100.636 #### [facility] [address] [place], [address] Observed: 03/01/2018 Status: F Source: [place] GPC ID 3:39 PM [facility] REPOSITORY GPC ID Staphylococcus sp. Coagulase - Negative Staphylococcus sp. Enterococcus sp. Not Detected Streptococcus spp. Not Detected Listeria spp Not Detected Russell/vanB Not Detected mecA Not Detected NAAT METHOD Testing was performed using nucleic acid amplification ORGANISM 1: Coag Negative Staph Performed By: #### M200.1000, M100.636 #### [facility] [address] [facility] [place], [address] EMERGENCY DEPARTMENT Observed: 03/01/2018 Status: F Source: [place] SUMMARY 3:32 PM [facility] REPOSITORY [facility] Medical Records Department [address] [place] [address] Emergency Department Summary 03/01/18 1527 MR#: [id number] Acct: [id number] Name: JIMENEZ WYNN Rep #: [id number] : 1935 82 From: Jeremi Rosales DO [...] office showed SVT. Patient is at a skilled nursing and presents with daughter who gives some [...] failure Hyperkalemia] This note was generated with [employer] dictation software. It may contain incorrect words, [...] your Primary Care Provider. Call [facility] ([phone]) or report to the closest Emergency Room. Call 911 if necessary. 03/01/18 1532 <Electronically signed by Jeremi Rosales DO> Date Jeremi Rosales DO Cosigner Signature (If Indicated): Date CC: Tracy Jones DO CARDIOLOGY VISIT Observed: 03/01/2018 Status: F Source: [place] REPORT 2:09 PM [facility] REPOSITORY [facility] [place] [place] [address] OFFICE VISIT Date of Service: 03/01/18 MR#: [id number] Acct: [id number] Name: JIMENEZ WYNN Rep #: [id number] : 1935 Provider: Charly Ross MD Age/Sex: 82/F Location: [facility] [place] [place] Status: Signed HPI HPI Details: JIMENEZ WYNN, [...] mg PO QDAY 03/01/18 [History Confirmed 03/01/18] PFS Medical History Takotsubo cardiomyopathy (Chronic) Nonrheumatic tricuspid (valve) insufficiency (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) Hypothyroidism [...] Supplemental Info Her most recent echocardiogram from [facility] was on 08/28/2016. The results are as noted below. Interpretation Summary Mild segmental systolic dysfunction (see wail motion) The estimated ejection fraction is 45 %. The left atrium is mildly enlarged. Mild (1+) eccentric mitral Valve insufficiency. Trivial tricuspid valve insufficiency. Her previous stress test at [facility] was on 07/20/2007. At that point in time she had no significant fixed defects to suggest infarct and no reversible defects to suggest ischemia. He had a diagnostic cardiac catheterization performed at [facility] on 09/13/2012. At that point in time [...] breath/dyspnea. She will be referred to the [facility] emergency department for further evaluation and [...] cardiomyopathy as deemed appropriate. 3. Atherosclerosis of [place] coronary artery of [place] heart without angina pectoris I25.10 Mild Plan [...] tachycardia I47.1 Takotsubo cardiomyopathy I51.81 Atherosclerosis of [place] coronary artery of [place] heart without angina pectoris I25.10 Ione vs. transplanted heart: [place] heart Mitral valve insufficiency, unspecified etiology I34.0 [...] tachycardia I47.1 Takotsubo cardiomyopathy I51.81 Atherosclerosis of [place] coronary artery of [place] heart without angina pectoris I25.10 [place] vs. transplanted heart: [place] heart Mitral valve insufficiency, unspecified etiology I34.0 [...] 1 VIEW Observed: 03/01/2018 Status: F Source: [place] (PORTABLE) 2:09 PM [facility] REPOSITORY [facility] Imaging Services [address] [place] [address] [place] [address] Chest 1 View (Portable) MR#: [id number] Acct: [id number] Name: JIMENEZ WYNN Rep #: [id number] : 1935 F 82 From: Lou Lim MD PCP: Tracy Jones DO Status: PRE ER Study: Chest 1 View (Portable) Date of Exam: 03/01/18 Exam# [id number] Ordering Dr: Jeremi Rosales DO STUDY: X-RAY [...] CC: Tracy Jones DO; Jeremi Rosales DO Band Scroll Saw Operator: Signed CHEST 1 VIEW Observed: 03/01/2018 Status: F Source: [place] (PORTABLE) 2:09 PM [facility] REPOSITORY [facility] Imaging Services [address] [place] [address] Chest 1 View (Portable) MR#: [id number] Acct: [id number] Name: JIMENEZ WYNN Rep #: [id number] : 1935 F 82 From: Lou Lim MD PCP: Tracy Jones DO Status: DIS IN Study: Chest 1 View (Portable) Date of Exam: 03/01/18 Exam# [id number] Ordering Dr: Jeremi Rsoales DO STUDY: X-RAY CHEST REASON FOR EXAM: [...] CC: Tracy Jones DO; Jeremi Rosales DO Band Scroll Saw Operator: Signed CBC W/DIFF, AUTOMATED Collected: 03/01/2018 Status: F Source: [place] 2:07 PM [facility] REPOSITORY TYPE CODE TESTS RESULT OUT OF [...] Lymph 1.24 Performed By: #### L100.0100 #### [facility] [address] [facility] [address] [place], [place], [address] BNP,B-TYPE NATRIURETIC Collected: 03/01/2018 Status: F Source: [place] PEPTIDE 2:07 PM [facility] REPOSITORY TYPE CODE TESTS RESULT OUT OF RANGE REFERENCE UNITS LAB L503.6620 0-100 pg/mL High B-TYPE 120.4 SIMA PEP Performed By: #### L503.6620 #### [facility] [address] [place], [place], [address] CBC W/DIFF, AUTOMATED Collected: 03/01/2018 Status: F Source: [place] 2:07 PM [facility] REPOSITORY TYPE CODE TESTS RESULT OUT OF [...] Lymph 1.24 Performed By: #### L100.0100 #### [facility] [address] [place], [place], [address] BNP,B-TYPE NATRIURETIC Collected: 03/01/2018 Status: F Source: [place] PEPTIDE 2:07 PM [facility] REPOSITORY TYPE CODE TESTS RESULT OUT OF RANGE REFERENCE UNITS LAB L503.6620 0-100 pg/mL High B-TYPE 120.4 SIMA PEP Performed By: #### L503.6620 #### [facility] [address] [place], [address] BASIC METABOLIC Collected: 03/01/2018 Status: F Source: [place] PROFILE (BMP) 2:07 PM [facility] REPOSITORY Order Comment: 'TROP' Serial specimen #1, [...] 10 Performed By: #### L500.2500, L501.4010 #### [facility] [address] [place], [address] TROPONIN-I Collected: 03/01/2018 Status: F Source: [place] 2:07 PM [facility] REPOSITORY Order Comment: 'TROP' Serial specimen #1, #2, #3, or #4: 1 TYPE CODE TESTS RESULT OUT OF RANGE REFERENCE UNITS LAB L501.4010 <0.06 ng/mL Normal 0.02 TROPONIN-I Result Comment: TROPONIN-I EXPECTED VALUES <0.05 NEGATIVE 0.06 - 0.59 AT RISK OF MO > OR = 0.60 SUGGEST MO Performed By: #### L500.2500, L501.4010 #### [facility] [address] [facility] [place], [address] 12 LEAD EKG PERFORMED Observed: 03/01/2018 Status: F Source: [place] BY [facility] 1:21 PM [facility] REPOSITORY [facility] [address] [place] [address] 12 Lead EKG performed by [facility] 03/01/18 1320 MR#: [id number] Acct: [id number] Name: JIMENEZ WYNN Rep #: [id number] : 1935 82 From: Charly Ross MD Attending Dr: Charly Ross MD Status: REG AMB Ordering Dr: Charly Ross MD Date: 03/01/18 Location: [facility] [place] [place] Sex: F C Admitted: BMS/12 Lead EKG performed by [facility] ECG Report Interpretation Supraventricular Tachycardia Leftward axisPoor R wave progressionElectronically signed on 03/01/2018 at 13:45 by Charly Ross 03/01/18 1348 Date Charly Ross MD CC: Tracy Jones DO Date Dictated: 03/01/18 1320 Date Transcribed: 03/01/181319 Band Scroll Saw Operator: PM Signed BASIC METABOLIC Collected: 01/21/2018 Status: F Source: [place] PROFILE (BMP) 6:10 AM [facility] REPOSITORY Order Comment: 204 TYPE CODE TESTS [...] 8 GAP Performed By: #### L500.2500 #### [facility] [address] [place], [address] CBC W/DIFF, AUTOMATED Collected: 01/18/2018 Status: F Source: [place] 6:30 AM [facility] REPOSITORY Order Comment: ROOM 204 ZURITA TYPE [...] Lymph 1.57 Performed By: #### L100.0100 #### [facility] [address] [place], [place], [address] COMPREHENSIVE METABOLIC Collected: 01/18/2018 Status: F Source: [facility] 6:30 AM [facility] REPOSITORY Order Comment: ROOM 204 ZURITA TYPE [...] Performed By: #### L500.4050, L500.4100, L501.9520 #### [facility] [address] [place], [address] LIPID PROFILE Collected: 01/18/2018 Status: F Source: [place] 6:30 AM [facility] REPOSITORY Order Comment: ROOM 204 ZURITA TYPE [...] Performed By: #### L500.4050, L500.4100, L501.9520 #### [facility] [address] [place], [address] THYROID STIM HORMONE Collected: 01/18/2018 Status: F Source: [place] (TSH) 6:30 AM [facility] REPOSITORY Order Comment: ROOM 204 ZURITA TYPE CODE TESTS RESULT OUT OF RANGE REFERENCE UNITS LAB L501.9520 0.358-3.74 uIU/mL Normal TSH 1.77 Performed By: #### L500.4050, L500.4100, L501.9520 #### [facility] [address] [place], [address] HEMOGLOBIN A1C Collected: 01/18/2018 Status: F Source: [place] 6:30 AM [facility] REPOSITORY Order Comment: ROOM 204 ZURITA TYPE CODE TESTS RESULT OUT OF RANGE REFERENCE UNITS LAB L501.9985 4.2-6.3 % High HGB A1C 9.1 Performed By: #### L501.9985 #### [facility] [address] [place], [address] VITAMIN D,25 HYDROXY Collected: 01/18/2018 Status: F Source: [place] 6:30 AM [facility] REPOSITORY Order Comment: ROOM 204 ZURITA TYPE CODE TESTS RESULT OUT OF RANGE REFERENCE UNITS LAB L506.1000 29.95-100.01 ng/mL Normal Vitamin D 53.1 25-OH Result Comment: Vitamin D 25(OH) Status Range Deficiency <20 ng/mL (50nmol/L) Insuffciency 20 - 30 ng/mL (50 - 75 nmol/L) Sufficiency 30 - 100 ng/mL (75 - 250 nmol/L) Toxicity >100 ng/mL (>250 nmol/L) Performed By: #### L506.1000 #### [facility] [address] [place], [address] ALLERGIES ALLERGIES DATE TYPE / NAME / CODE REACTION SEVERITY SOURCE CODE 09/15/2018 Drug hydrocodone Chest tightness Unknown [place] Allergy/41 bitartrate/Z52480 Community 8122674( 1555(RXNORM) [facility]) Repository 09/15/2018 Drug Penicillins/F0010 Rash Unknown [place] Allergy/41 34808(RXNORM) [facility] 1317669([facility]) Repository 09/15/2018 Drug Sulfa Unknown Unknown [place] Allergy/41 (Sulfonamide Community 2678400( Antibiotics)/F001 Hospital [facility]) 706355(RXNORM) Repository 09/15/2018 Drug Latex, Natural Rash Unknown [place] Allergy/41 Rubber/[id number] [facility] 5321989( (RXNORM) [facility]) Repository 09/15/2018 Drug codeine/[id number] HEART ATTACK SV [place] Allergy/41 0(RXNORM) [facility] 6770839([facility]) Repository 09/15/2018 Drug acetaminophen/F00 Chest tightness Unknown [place] Allergy/41 9187016(RXNORM) [facility] 4800192([facility]) Repository 09/15/2018 Drug adhesive Other Unknown [place] Allergy/41 tape/[id number](R Community 4929144( XNORM) [facility]) Repository 09/15/2018 Drug citalopram/O73540 Unknown Unknown [place] Allergy/41 5106(RXNORM) [facility] 0621859([facility]) Repository 09/15/2018 Drug levofloxacin/F006 Anaphylaxis SV [place] Allergy/41 852520(RXNORM) [facility] 1844996([facility]) Repository ENCOUNTERS ENCOUNTERS ADMIT/DISCHARGE ACCOUNT ADMITTING ENCOUNTER LOCATION SOURCE NUMBER CLASS 11/23/2018 [id number] Ambulatory [place] 8 [facility] ing:PARK.[facility] Repository R 11/22/2018 [id number] Ambulatory [place] 1 [facility] ing:PARK.[facility] Repository R 11/15/2018 [id number] Ambulatory [place] 8 [facility] ing:OLS.[facility] Repository R 11/12/2018 [id number] Ambulatory [place] 6 [facility] Hospital ing: Repository 11/08/2018 [id number] Ambulatory [place] 2 [facility] Hospital ing:OLS.[facility] Repository R 11/01/2018 [id number] Ambulatory [place] 8 [facility] Rep[facility] R 10/27/2018/ [id number] [place] 8 1 [facility] Hospital ing: Repository 10/25/2018 [id number] Ambulatory [place] 0 [facility] Rep[facility] R 10/18/2018 [id number] [place] 0 [facility] Hospital ing:OLS.[facility] Repository R 10/13/2018 [id number] Ambulatory BMSBuilding:W [place] 8 [facility] Repository 10/11/2018 [id number] Ambulatory [place] 1 [facility] Hospital ing:OLS.[facility] Repository C 10/04/2018 [id number] Ambulatory [place] 6 [facility] Hospital ing:OLS.[facility] Repository C 09/27/2018 [id number] Ambulatory [place] 3 [facility] Hospital ing:OLS.[facility] Repository C 09/22/2018 [id number] Ambulatory [place] 5 [facility] Hospital ing:OLS.[facility] Repository C 09/15/2018/ [id number] [place], Inpatient [place] 4 [place] Encounter [facility] ing:PCURoom: Repository [id number]: 1 09/15/2018 [id number] [facility], Ambulatory BMSBuilding:B [place] 8 [place].[facility] Repository 09/15/2018 [id number] [facility], Ambulatory BMSBuilding:B [place] 8 [place] MS.CF.[facility] Repository 09/15/2018 [id number] [facility], Ambulatory BMSBuilding:B [place] 8 [place] [facility] 09/15/2018 [id number] [place], Ambulatory BMSBuilding:B [place] 1 [place] MS.CF.[facility] Repository 09/15/2018 [id number] [facility], Ambulatory BMSBuilding:B [place] 9 [place] MS.[facility] Repository 09/15/2018 [id number] [place], Ambulatory BMSBuilding:B [place] 6 [place] MS.CF.[facility] Repository 09/15/2018 [id number] [facility], Ambulatory BMSBuilding:B [place] 8 [place] MS.[facility] Repository 09/15/2018 [id number] [facility], Ambulatory BMSBuilding:B [place] 9 [place] MS.CF.[facility] Repository 09/15/2018 [id number] [place], Ambulatory BMSBuilding:B [place] 0 [place] MS.[facility] Repository 09/15/2018 [id number] [facility], Ambulatory BMSBuilding:B [place] 7 [place] MS.[facility] Repository 09/15/2018 [id number] [place] 1 [facility] Hospital ing:[facility] Repository S 09/13/2018 [id number] [place] 1 [facility] ing:[facility] Repository C 09/10/2018 [id number] Amb[place] 4 [facility] Hospital ing:[facility]K.[facility] Repository C 09/08/2018/ [id number] Ambulatory [place] 8 0 [facility] Hospital ing: Repository 09/08/2018 [id number] Ambulatory BMSBuilding:W [place] 4 [facility] Repository 09/08/2018 [id number] Ambulatory [place] 4 [facility] Hospital ing:[facility]K.[facility] Repository C 09/06/2018 [id number] Ambulatory [place] 9 [facility] Hospital ing:[facility]K.[facility] Repository C 09/03/2018 [id number] [place] 3 [facility] Hospital ing:[facility] Repository C 08/31/2018 [id number] Ambulatory [place] 0 [facility] Hospital ing:[facility]K.[facility] Repository C 08/30/2018/ [id number] Ambulatory BMSBuilding:B [place] 8 2 [facility] Repository 08/30/2018 [id number] [place] 8 [facility] Hospital ing:OLS.[facility] Repository C 08/28/2018 [id number] Ambulatory [place] 3 [facility] ing:OLS.[facility] Repository C 08/25/2018/ [id number] Ambulatory [place] 8 0 [facility] Hospital ing: Repository 08/25/2018 [id number] Ambulatory BMSBuilding:W [place] 8 [facility] Repository 08/24/2018 [id number] Ambulatory BMSBuilding:B [place] 9 [facility] Repository 08/23/2018 [id number] Ambulatory [place] 0 [facility] Hospital ing:OLS.[facility] Repository C 08/20/2018/ [id number] Ambulatory BMSBuilding:B [place] 8 7 [facility] Repository 08/16/2018 [id number] [place] 1 [facility] Hospital ing:OLS.[facility] Repository C 08/11/2018 [id number] Ambulatory [place] 5 [facility] ing:OLS.[facility] Repository C 08/09/2018 [id number] Ambulatory [place] 6 [facility] ing:OLS.[facility] Repository C 07/20/2018/ [id number] [place] [place] Inpatient [place] 8 3 [facility] ing:PCURoom: Repository [id number]: 1 07/20/2018 [id number] [place] [place] Ambulatory BMSBuilding:B [place] 9 [place].[facility] Repository 07/20/2018 [id number] [place] [place] Ambulatory BMSBuilding:B [place] 7 [place].[facility] Repository 07/20/2018 [id number] [place] [place] Ambulatory BMSBuilding:B [place] 7 [place].CF.[facility] Repository 07/20/2018 [id number] [place] [place] Ambulatory BMSBuilding:B [place] 4 [facility] Repository 07/20/2018 [id number] [place] [place] Ambulatory BMSBuilding:B [place] 6 [place].[facility] Repository 07/20/2018 [id number] [place] [place] Ambulatory BMSBuilding:B [place] 3 [facility] Repository 07/20/2018 [id number] [place] [place] Ambulatory BMSBuilding:B [place] 2 [place].[facility] Repository 07/20/2018 [id number] [place] [place] Ambulatory BMSBuilding:B [place] 1 [place] Repository 07/20/2018 [id number] [place] [place] Ambulatory BMSBuilding:B [place] 9 [facility] Repository 07/20/2018 [id number] [place] [place] Ambulatory BMSBuilding:B [place] 5 [place].[facility] Repository 07/20/2018 [id number] [place] [place] Ambulatory BMSBuilding:B [place] 9 [place].[facility] Repository 07/20/2018 [id number] [place] [place] Ambulatory BMSBuilding:B [place] 2 [facility] Repository 07/20/2018 [id number] [place] [place] Ambulatory BMSBuilding:B [place] 3 [place] Repository 07/20/2018 [id number] [place] [place] Ambulatory BMSBuilding:B [place] 3 [facility] Repository 07/20/2018 [id number] [place] [place] Ambulatory BMSBuilding:B [place] 5 [facility] Repository 07/20/2018 [id number] [place] [place] Ambulatory BMSBuilding:B [place] 6 [facility] Repository 07/20/2018 [id number] [place] [place] Ambulatory BMSBuilding:B [place] 0 [place]CF.[facility] Repository 07/20/2018 [id number] [place] [place] Ambulatory BMSBuilding:B [place] 1 [place].[facility] Repository 07/20/2018 [id number] [place] [place] Ambulatory BMSBuilding:B [place] 0 MS.CF.[facility] Repository 07/20/2018 [id number] [place] [place] Ambulatory BMSBuilding:B [place] 7 [place].[facility] Repository 07/20/2018 [id number] [place] [place] Ambulatory BMSBuilding:B [place] 0 [place].CF.[facility] Repository 07/20/2018 [id number] [place] [place] Ambulatory BMSBuilding:B [place] 3 [place].[facility] Repository 07/20/2018 [id number] [place], [place] Ambulatory BMSBuilding:B [place] 8 [facility] Repository 07/20/2018 [id number] [place] [place] Ambulatory BMSBuilding:B [place] 8 [place] Repository 07/20/2018 [id number] [place], [place] Ambulatory BMSBuilding:B [place] 3 [facility] Repository 07/20/2018 [id number] [place], [place] Ambulatory BMSBuilding:B [place] 7 [place].[facility] Repository 07/20/2018 [id number] [place], [place] Ambulatory BMSBuilding:B [place] 0 [facility] Repository 07/20/2018 [id number] [place], [place] Ambulatory BMSBuilding:B [place] 7 MS..[facility] Repository 07/20/2018 [id number] [place] Ambulatory BMSBuilding:B [place] 8 [facility] Repository 07/20/2018 [id number] [place] [place] Ambulatory BMSBuilding:B [place] 1 [place].[facility] Repository 07/20/2018 [id number] [place] [place] Ambulatory BMSBuilding:B [place] 0 [facility] Repository 07/20/2018 [id number] [place] Ambulatory BMSBuilding:B [place] 3 [facility] Repository 07/20/2018 [id number] [place] [place] Ambulatory BMSBuilding:B [place] 8 [facility] Repository 07/20/2018 [id number] [place], [place] Ambulatory BMSBuilding:B [place] 5 [facility] Repository 07/20/2018 [id number] [place] [place] Ambulatory BMSBuilding:B [place] 5 [facility] Repository 07/20/2018 [id number] [place] Ambulatory BMSBuilding:B [place] 2 [facility] Repository 07/20/2018 [id number] [place] Ambulatory BMSBuilding:B [place] 4 [facility] Repository 07/20/2018 [id number] [place] [place] Ambulatory BMSBuilding:B [place] 4 [facility] Repository 07/20/2018 [id number] [place], [place] Ambulatory BMSBuilding:B [place] 7 [facility] Repository 07/20/2018 [id number] [place] [place] Ambulatory BMSBuilding:B [place] 4 [facility] Repository 07/20/2018 [id number] [place], [place] Ambulatory BMSBuilding:B [place] 8 [place].[facility] Repository 07/20/2018 [id number] [place] [place] Ambulatory BMSBuilding:B [place] 9 [facility] Repository 07/20/2018 [id number] [place], [place] Ambulatory BMSBuilding:B [place] 9 [facility] Repository 07/20/2018 [id number] [place], [place] Ambulatory BMSBuilding:B [place] 0 [facility] Repository 07/20/2018 [id number] [place] [place] Ambulatory BMSBuilding:B [place] 1 [facility] Repository 07/20/2018/ [id number] Ambulatory BMSBuilding:W [place] 8 6 [facility] Repository 07/20/2018/ [id number] Ambulatory BMSBuilding:W [place] 8 6 [facility] Repository 07/07/2018 [id number] [facility] [facility] Repository N 06/17/2018 [id number] Ambulatory BMSBuilding:B [place] 0 [facility] Repository 06/09/2018 [id number] [place] 1 [facility] ing:OLS.[facility] Repository N 06/04/2018/ [id number] Emergency [place] 8 3 [facility] ing:ED Repository 05/26/2018/ [id number] Ambulatory BMSBuilding:B [place] 8 4 [facility] Repository 05/09/2018/ [id number] Jone Olivares Inpatient [place] 8 6 Encounter [facility] ing:PCURoom: Repository [id number]: 1 05/09/2018 [id number] Jone Olivares Ambulatory BMSBuilding:B [place] 0 [facility] Repository 05/09/2018/ [id number] Ambulatory BMSBuilding:W [place] 8 4 [facility] Repository 05/08/2018 [id number] Jone Olivares Ambulatory BMSBuilding:B [place] 9 [facility] Repository 05/08/2018 [id number] Jone Olivares Ambulatory BMSBuilding:W [place] 1 [facility] Repository 04/14/2018 [id number] [place] 2 [facility] ing:OLS.[facility] Repository N 03/01/2018/ [id number] [place], Inpatient [place] 8 9 [place] Encounter [facility] ing:PCURoom: Repository [id number]: 1 03/01/2018 [id number] [place], Ambulatory BMSBuilding:B [place] 9 [place] [facility] Repository 03/01/2018 [id number] [place], Ambulatory BMSBuilding:B [place] 2 [place] [facility] Repository 03/01/2018 [id number] [place], Ambulatory BMSBuilding:B [place] 2 [place] [facility] Repository 03/01/2018 [id number] [place], Ambulatory BMSBuilding:B [place] 7 [place] [facility] Repository 03/01/2018/ [id number] Ambulatory BMSBuilding:W [place] 8 1 [facility] Repository 03/01/2018/ [id number] Ambulatory BMSBuilding:W [place] 8 6 [facility] Repository 03/01/2018 [id number] [place]patient [place] 5 Encounter [facility] ing:ED Repository 03/01/2018/ [id number] Ambulatory BMSBuilding:B [place] 8 7 [facility] Repository 01/21/2018 [id number] Ambulatory [place] 5 [facility] ing:OLS.[facility] Repository N 01/18/2018 [id number] Ambulatory [place] 9 [facility] ing:OLS.[facility] Repository N 01/15/2018 [id number] Ambulatory BMSBuilding:B [place] 8 [facility] Repository PAYERS PAYERS ENCOUNTER GUARANTOR PAYER SUBSCRIBER SOURCE 11/23/2018 N [place] Primary NOT [place]EN[place]K [place] Insurance[place]SELF PAY [address] Number: [place] Date:2018-11-23 [id number]: (HP) 11/22/2018 N [place] Primary NOT [place]ENUNK [place] Insurance:SELF PAY [address] Number: [place] Date:2018-11-22 [id number]: (HP) 11/15/2018 N [place] Primary NOT GIVENUNK [place] Insurance:SELF PAY [address] Number: [place] Date:2018-11-15 [id number]: (HP) 11/12/2018 N [place] Primary NOT GIVENUNK [place] Insurance:SELF PAY [address] Number: [place] Date:2018-11-02 76272Ovh: (HP) 11/08/2018 N [place] Primary N [place] Insurance:MEDICARE STARLINDOB: Community HEALTHY [id number] PART A [id number] Number: [place]ository [place] [id number] 19884Dzl: (330) Date:2018-11-08 [phone] (HP) 11/08/2018 Secondary NOT GIVENUNK [place] Insurance:SELF PAY [facility] Number: Effective Repository Date:2018-11-08 11/01/2018 N [place] Primary N [place] Insurance:MEDICARE STARLINDOB: Community HEALTHY [id number] PART A [facility] [id number] Number: [place] [id number] 00412Ufi: (330) Date:2018-11-01 [phone] (HP) 11/01/2018 Secondary NOT GIVENUNK [place] Insurance:SELF PAY [facility] Number: Effective Repository Date:2018-11-01 10/27/2018 N [place]LD[place] Primary N [place] Insurance:MEDICARE STARLINDOB: Community HEALTHY [id number] PART A [facility] [id number] Number: [place] [id number]: (330) Date:2018-08-17 [phone] () 10/27/2018 Secondary NOT GIVENUNK [place] Insurance:SELF PAY [facility] Number: Effective Repository Date:2018-10-02 10/25/2018 N [place] Primary NOT GIV[place]UNK [place] Insurance:SELF PAY [facility] HEALTHY [id number] [place] [address] Number: [place] Date:2018-10-25 95050Qny: (HP) 10/18/2018 N [place] Primary N [place] Insurance:MEDICARE STARLINDOB: Community HEALTHY [id number] PART A [facility] [id number] Number: [place]ository [place] [id number] 99626Rqg: (330) Date:2018-10-18 [phone] (HP) 10/18/2018 Secondary N ELD[place] Insurance:RURAL STARLINDOB: Community CARRIER BENEFIT [id number] [facility] Number: Repository [id number] Date:4171-85-12IP G[place] DIAZ 84995VW: 10/18/2018 Tertiary NOT GIVENUNK [place] Insurance:SELF PAY [facility] Number: Effective Repository Date:2018-10-18 10/13/2018 N [place] Primary N [place] Insurance:MEDICARE STARLINDOB: Community HEALTHY [id number] PART A BPolicy [id number] [facility]ty [facility] Number: Repository [place], [place] [id number]: (243) Date:2018-08-17 [phone] () 10/13/2018 Secondary NOT GIVENUNK [place] Insurance:SELF PAY [facility] Number: Effective Repository Date:2018-10-13 10/11/2018 N [place] Primary NOT GIVENUNK [place] Insurance:SELF PAY [facility] HEALTHY [id number] [facility] Number: Effective Repository [facility] Date:2018-10-11 [id number]: () 10/04/2018 N [place] Primary NOT GIVENUNK [place] Insurance:SELF PAY [facility] HEALTHY [id number] [facility] Number: Effective [facility] [place] Date:2018-10-04 [id number]: () 09/27/2018 N [place] Primary NOT GIVENUNK [place] Insurance:SELF PAY [facility] HEALTHY [id number] [facility] Number: Effective [place] Date:2018-09-27 94320Uft: () 09/22/2018 N [place] Primary NOT GIVENUNK [place] Insurance:SELF PAY [facility] HEALTHY [id number] [facility] Number: [place] Date:2018-09-22 [id number]: (HP) 09/15/2018 N [place] Primary N [place] Insurance:MEDICARE STARLINDOB: Community HEALTHY [id number] PART A [facility] [id number]ty [facility] Number: Repository [place] [id number]: (330) Date:2018-09-15 [phone] (HP) 09/15/2018 Secondary N ELDORA [place] Insurance:AETNAPolic STARLINDOB: Community y Number: Effective [id number] [place] [address] Date:[id number] Repository [address] BRODERICK BUENO [address]YS: 09/15/2018 Tertiary N ELDORA [place] Insurance:RURAL STARLINDOB: Community CARRIER BENEFIT [id number] PLANPolicy Number: Repository [id number] Date:4679-30-03[address]LORENESHA GREGOR [address]OK: 09/15/2018 Tertiary NOT GIVENUNK [place] Insurance:SELF PAY [facility] Number: Effective Repository Date:2018-09-15 09/15/2018 E[place] Primary [place] Insurance:MEDICARE STARLINDOB: Community HEALTHY [id number] PART A [facility] [id number] [facility]ty [facility] Number: Repository [place] [id number]: (330) Date:2018-09-15 [phone] () 09/15/2018 Secondary ELDORA [place] Insurance:RURAL STARLINDOB: Community CARRIER BENEFIT [id number] PLANPolicy Number: Repository [id number] Date:5266-09-04[address] WOLFE [address]EC: 09/15/2018 Tertiary NOT GIVENUNK [place] Insurance:SELF PAY [facility] Number: Effective Repository Date:2018-09-15 09/15/2018 ELD[place] Primary [place] Insurance:MEDICARE STARLINDOB: Community HEALTHY [id number] PART A [facility] [id number] [facility] [place] Number: [place] [id number] [address]Wab: (330) Date:2018-09-15 () 09/15/2018 Secondary ELDORA Gissel Insurance:RURAL STARLINDOB: Community CARRIER BENEFIT [id number] Hospital PLANPolicy Number: Repository [id number] Date:2203-65-70[address] [place] [address]KU: 09/15/2018 Tertiary NOT GIVENUNK [place] Insurance:SELF PAY [facility] Number: Effective Repository Date:2018-09-15 09/15/2018 N ELDORA Primary N [place] Insurance[place]MEDICARE STARLINDOB: Community HEALTHY [id number] PART A [facility] [id number] [facility] [place] Number: Repository [place] [id number]: 330) Date:2018-09-1513 () 09/15/2018 Secondary N [place] Insurance:RURAL STARLINDOB: Community CARRIER BENEFIT [id number] Hospital PLANPolicy Number: Repository [id number] Date:3573-03-48[address] [place] [address]WQ: 09/15/2018 Tertiary NOT GIVENUNK [place] Insurance:SELF PAY [facility] Number: Effective Repository Date:2018-09-15 09/15/2018 N ELDORA Primary N E[place] Insurance:MEDICARE STARLINDOB: Community HEALTHY [id number] PART A [facility] [id number] [facility]ty [facility] [place] Number: Repository RDMIR[place] [id number]: (330) Date:2018-09-1507 () 09/15/2018 Secondary N ELDORA Giss[place] Insurance:RURAL STARLINDOB: Community CARRIER BENEFIT [id number] Hospital PLANPolicy Number: Repository [id number] Date:5724-03-35CW [address] [place] [address]QW: 09/15/2018 Tertiary NOT GIVENUNK [place] Insurance:SELF PAY [facility] Number: Effective Repository Date:2018-09-15 09/15/2018 N ELDOR[place] Primary N [place] Insurance:MEDICARE STARLINDOB: Community HEALTHY [id number] PART A [facility] [id number] Specialty Hospital - [place] Number: [place] [id number] [address]Hmp: (330) Date:2018-09-154257 () 09/15/2018 Secondary N ELDORA [place] Insurance:RURAL STARLINDOB: Community CARRIER BENEFIT [id number] Hospital PLANPolic Number: Repository [id number] Date:9107-11-39CO [facility] [address], [place] [address]DQ: 09/15/2018 Tertiary NOT GIVENUNK [place] Insurance:SELF PAY [facility] Number: Effective Repository Date:2018-09-15 09/15/2018 N ELDORA Primary N [place] Insurance:MEDICARE STARLINDOB: Community HEALTHY [id number] PART A [facility] [id number] [facility]ty [facility] [place] Number: Repository [place] [id number] [address]Uap: (383) Date:2018-09-156241 () 09/15/2018 Secondary N ELD[place] Insurance:RURAL STARLINDOB: Community CARRIER BENEFIT [id number] Hospital PLANPolicy Number: Repository [id number] Date:9230-08-35EH [facility] [address] [place] [address]DU: 09/15/2018 Tertiary NOT GIVENUNK [place] Insurance:SELF PAY [facility] Number: Effective Repository Date:2018-09-15 09/15/2018 N ELDORA Primary N [place] Insurance:MEDICARE STARLINDOB: Community HEALTHY [id number] PART A [facility] [id number] [facility]ty Hospital [facility] Number: Repository [place] [id number]: (330) Date:2018-09-1576 () 09/15/2018 Secondary N ELD[place] Insurance:RURAL STARLINDOB: Community CARRIER BENEFIT [id number] [address] Number: Repository [id number] Date:3466-84-15ZO [address] [place] [address]EO: 09/15/2018 Tertiary NOT GIVENUNK [place] Insurance:SELF PAY Community [facility] Number: Effective Repository Date:2018-09-15 09/15/2018 N ELDORA Primary N [place] Insurance:MEDICARE STARLINDOB: Community HEALTHY [id number] PART A [facility] [id number] Specialty Hospital - [facility] Number: Repository [place]un[place] [id number] [address]Cfk: (330) Date:2018-09-1526 () 09/15/2018 Secondary N ELD[place]A [place] Insurance:RURAL STARLINDOB: Community CARRIER BENEFIT [id number] [address] [facility] Number: Repository [id number] Date:1291-35-55NU [address] [place] [address]WR: 09/15/2018 Tertiary NOT GIVENUNK [place] Insurance:SELF PAY [facility] Number: Effective Repository Date:2018-09-15 09/15/2018 N ELDORA Primary N [place] Insurance:MEDICARE STARLINDOB: Community HEALTHY [id number] PART A [facility] [id number] Specialty Hospital - [place] Number: Repository RDJHOANKEELEYuniversity [place], [place] [id number] [address]Vpn: (330) Date:2018-09-155692 () 09/15/2018 Secondary N ELDORA [place] Insurance:RURAL STARLINDOB: Community CARRIER BENEFIT [id number] [facility] Number: Repository [id number] Date:9106-40-90JI [address] [address]KX: 09/15/2018 Tertiary NOT GIVENUNK [place] Insurance:SELF PAY Community [facility] Number: Effective Repository Date:2018-09-15 09/15/2018 N ELDORA Primary N [place] Insurance:MEDICARE STARLINDOB: Community HEALTHY [id number] PART A [facility] [id number] Specialty Hospital - [place] Number: [place] [id number] [address]Sva: (330) Date:2018-09-15 [phone] (HP) 09/15/2018 Secondary N ELDORA Gissel Insurance:RURAL STARLINDOB: Community CARRIER BENEFIT [id number] St. [facility] Number: Repository [id number] Date:6547-85-76PM [place]REG[place] DIAZ [address]XA: 09/15/2018 Tertiary NOT GIVENUNK [place] Insurance:SELF PAY [facility] Number: Effective Repository Date:2018-09-15 09/15/2018 N ELDORA Primary NOT [place]IVENUNK [place] Insurance:SELF PAY Community HEALTHY [id number] [facility] Number: Effective Repository [place], [place] Date:2018-09-15 25[address]Lbm: (HP) 09/13/2018 N ELDORA Primary NOT GIVENUNK [place] Insurance:SELF PAY [facility] HEALTHY [id number] [facility] Number: Effective Repository [place] Date:2018-09-13 687[address]Jwg: (HP) 09/10/2018 N ELDORA Primary NOT GIVENUNK [place] Insurance:SELF PAY [facility] HEALTHY [id number] [facility] Number: Effective Repository [place] Date:2018-09-10 [address]Ehw: (HP) 09/08/2018 ELDORA Primary [place] Insurance:MEDICARE STARLINDOB: Community HEALTHY [id number] PART A [facility] [id number] Specialty Hospital - [place] Number: [place] [id number] [address]Elw: 330) Date:2018-08-17 [phone] (HP) 09/08/2018 Secondary ELD[place] Insurance:RURAL STARLINDOB: Community CARRIER BENEFIT [id number] [address] [facility] Number: Repository [id number] Date:7501-52-88EQ [address] [place] [address]YZ: 09/08/2018 Tertiary NOT GIVENUNK [place] Insurance:SELF PAY [facility] Number: Effective Repository Date:2018-09-02 09/08/2018 N ELDORA Primary N ELD[place] Insurance:MEDICARE STARLINDOB: Community HEALTHY [id number] PART A BPolicy [id number] Specialty Hospital - [place] Number: Repository [place], [place] [id number] [address]Zxr: (394) Date:2018-08-17 [phone] () 09/08/2018 Secondary N ELD[place] Insurance:RURAL STARLINDOB: Community CARRIER BENEFIT [id number] [address]. [facility] Number: Repository [id number] Date:9490-47-10CZ [address] [place] [address]RK: 09/08/2018 Tertiary NOT GIVENUNK [place] Insurance:SELF PAY [facility] Number: Effective Repository Date:2018-09-08 09/08/2018 N ELD[place] Primary NOT [place]K [place] Insurance:SELF PAY [facility] HEALTHY [id number] [facility] Number: Effective [facility] [place] Date:2018-09-08 42486Vaz: () 09/06/2018 N ELDORA Primary NOT [place]IVENUNK [place] Insurance:SELF PAY [facility] HEALTHY [id number] [facility] Number: Effective Repository RDLOCATED WITHIN [facility]ENTERKEELEYun[facility] [place] Date:2018-09-06 14754Uqf: () 09/03/2018 N ELDORA Primary NOT [place]IVENUNK [place] Insurance:SELF PAY [facility] HEALTHY [id number] [place] [address] Number: Effective Repository [facility] [place] Date:2018-09-03 32486Bpu: (HP) 08/31/2018 ELDORA Primary NOT GIVENUNK [place] Insurance:SELF PAY [facility] HEALTHY [id number] [facility] Number: Effective Repository [place], [place] Date:2018-08-31 52663Nkm: (HP) 08/30/2018 ELDORA Primary [place] Insurance:MEDICARE STARLINDOB: Community HEALTHY [id number] PART A olic [id number] Specialty Hospital [facility] [place] Number: Repository GERALDMIRNAuniversity [place], [place] [id number] [address]Awz: 330) Date:2018-08-20 [phone] () 08/30/2018 Secondary ELD[place] Insurance:RURAL STARLINDOB: Community CARRIER BENEFIT [id number] St[facility] Number: Repository [id number] Date:3681-92-16SK[address] [place] [address]DB: 08/30/2018 Tertiary NOT GIVENUNK [place] Insurance:SELF PAY [facility] Number: Effective Repository Date:2018-08-20 08/30/2018 ELDORA Primary NOT GIVENUNK [place] Insurance:SELF PAY [facility] HEALTHY [id number] [facility] Number: Effective Repository [place], [place] Date:2018-08-30 65125Yim: (HP) 08/28/2018 ELDORA Primary NOT GIVENUNK [place] Insurance:SELF PAY [facility] HEALTHY [id number] [facility] Number: Effective Repository [place] Date:2018-08-28 42442Wzu: (HP) 08/25/2018 ELDORA Primary ELD[place]A [place] Insurance:MEDICARE STARLINDOB: Community HEALTHY [id number] PART A [facility] [id number] Specialty Hospital - [place] Number: Repository [place] [id number] [address]Aij: 330) Date:2018-08-17 [phone] (HP) 08/25/2018 Secondary ELDORA Gissel Insurance:RURAL STARLINDOB: Community CARRIER BENEFIT [id number] Hospital PLANPolicy Number: Repository [id number] Date:9129-35-99HB [facility] [address] [address]JO: 08/25/2018 Tertiary NOT GIVENUNK [place] Insurance:SELF PAY Community [facility] Number: Effective Repository Date:2018-08-17 08/25/2018 ELDORA Primary ELD[place]A [place] Insurance:MEDICARE STARLINDOB: Community HEALTHY [id number] PART A [facility] [id number] Specialty Hospital - [place] Number: Repository [place] [id number]: 330) Date:2018-08-1728 () 08/25/2018 Secondary [place] Insurance:RURAL STARLINDOB: Community CARRIER BENEFIT [id number] Hospital PLANPolicy Number: Repository [id number] Date:8810-64-84BN [facility] [address] [place] [address]DH: 08/25/2018 Tertiary NOT GIVENUNK [place] Insurance:SELF PAY [facility] Number: Effective Repository Date:2018-08-25 08/24/2018 ELDORA Primary ELD[place]A [place] Insurance:MEDICARE STARLINDOB: Community HEALTHY [id number] PART A [facility] [id number] Specialty Hospital - [place] Number: Repository [place] [id number] [address]Xvi: (330) Date:2018-08-1054 () 08/24/2018 Secondary ELDORA Giss[place] Insurance:RURAL STARLINDOB: Community CARRIER BENEFIT [id number] Hospital PLANPolic Number: Repository [id number] Date:4966-70-80BM [facility] [address] [place] [address]DD: 08/24/2018 Tertiary NOT GIVENUNK [place] Insurance:SELF PAY Community [facility] Number: Effective Repository Date:2018-08-20 08/23/2018 ELDORA Primary NOT GIVENUNK [place] Insurance:SELF PAY Community HEALTHY [id number] [facility] Number: Effective Repository [place] Date:2018-08-23 63633Axs: (HP) 08/20/2018 ELDORA Primary [place] Insurance:MEDICARE STARLINDOB: Community HEALTHY [id number] PART A olicy [id number] Specialty Hospital - [facility] Number: Repository RALPHKEELEYuniversity [place], [place] [id number] [address]Krd: (669) Date:2018-08-10 [phone] (HP) 08/20/2018 Secondary ELD[place] Insurance:RURAL STARLINDOB: Community CARRIER BENEFIT [id number] St[facility] Number: Repository [id number] Date:9528-38-23UQ GREG[place] DIAZ [address]QR: 08/20/2018 Tertiary NOT GIVENUNK [place] Insurance:SELF PAY [facility] Number: Effective Repository Date:2018-08-10 08/16/2018 ELDORA Primary NOT GIVENUNK [place] Insurance:SELF PAY Community HEALTHY [id number] [facility] Number: Effective [place] Date:2018-08-16 48694Waf: (HP) 08/11/2018 ELDOR[place] Primary NOT [place]K [place] Insurance:SELF PAY Community HEALTHY [id number] [facility] Number: Effective Repository GERALDTylerMIRNAun[place] Date:2018-08-11 14589Kpx: (HP) 08/09/2018 ELDORA Primary NOT [place]IVENUNK [place] Insurance:SELF PAY [facility] HEALTHY [id number] [facility] Number: Effective Repository [place], [place] Date:2018-08-09 50520Lrr: (HP) 07/20/2018 ELDORA Primary [place]A [place] Insurance:MEDICARE STARLINDOB: Community HEALTHY [id number] PART A [facility] [id number] Specialty Hospital - [place] Number: Repository [place] [id number] [address]Vdd: (330) Date:2018-07-20 () 07/20/2018 Secondary ELDORA [place] Insurance:RURAL STARLINDOB: Community CARRIER BENEFIT [address] [place] [address] PLANPolic Number: Repository [id number] Date:2305-77-31JP [address] [address]OO: 07/20/2018 Tertiary NOT GIVENUNK [place] Insurance:SELF PAY [facility] Number: Effective Repository Date:2018-07-20 07/20/2018 ELDORA Primary [place]LD[place]A [place] Insurance:MEDICARE STARLINDOB: Community HEALTHY [id number] PART A [facility] [id number] Number: Repository [place] [id number] [address]Pjm: (330) Date:2018-07-20 () 07/20/2018 Secondary ELDORA Gissel Insurance:RURAL STARLINDOB: Community CARRIER BENEFIT [address] [place], [place] [address]icy Number: Repository [id number] Date:6127-48-73BN [address] [place] [address]EZ: 07/20/2018 Tertiary NOT GIVENUNK [place] Insurance:SELF PAY [facility] Number: Effective Repository Date:2018-07-20 07/20/2018 ELDORA Primary [place] Insurance:MEDICARE STARLINDOB: Community HEALTHY [id number] PART A [facility] [id number] Number: Repository [place] [id number] 133[address]Mrk: (330) Date:2018-07-20 () 07/20/2018 Secondary ELDORA [place] Insurance:RURAL STARLINDOB: Community CARRIER BENEFIT [address] [place], [place] [address]Polic Number: Repository [id number] Date:9026-92-22DV [address] [place] [address]SW: 07/20/2018 Tertiary NOT GIVENUNK [place] Insurance:SELF PAY Community [facility] Number: Effective Repository Date:2018-07-20 07/20/2018 ELDORA Primary [place] Insurance:MEDICARE STARLINDOB: Community HEALTHY [id number] PART A [facility] [id number] Specialty Hospital - [place] Number: [place] [id number]: (330) Date:2018-07-20 () 07/20/2018 Secondary ELDORA [place] Insurance:RURAL STARLINDOB: Community CARRIER BENEFIT [id number] Hospital PLANPolicy Number: Repository [id number] Date:5774-76-91PM [facility] [address] [address]NT: 07/20/2018 Tertiary NOT GIVENUNK [place] Insurance:SELF PAY [facility] Effective Repository Date:2018-07-20 07/20/2018 ELDORA Primary [place] Insurance:MEDICARE STARLINDOB: Community HEALTHY [id number] PART A [facility] [id number] Specialty Hospital - [place] Number: Repository [place] [id number] [address]Rgi: (330) Date:2018-07-20 () 07/20/2018 Secondary ELDORA [place] Insurance:RURAL STARLINDOB: Community CARRIER BENEFIT [id number] PLANPolicy Number: Repository [id number] Date:8627-55-06SO [address] [address]VI: 07/20/2018 Tertiary NOT GIVENUNK [place] Insurance:SELF PAY [facility] Number: Effective Repository Date:2018-07-20 07/20/2018 ELDORA Primary [place] Insurance:MEDICARE STARLINDOB: Community HEALTHY [id number] PART A [facility] [id number] Specialty Hospital - [facility] Number: Repository [place] [id number] 277[address]Yir: (330) Date:2018-07-20 () 07/20/2018 Secondary ELDORA [place] Insurance:RURAL STARLINDOB: Community CARRIER BENEFIT [id number] Hospital PLANPolicy Number: Repository [id number] Date:1466-36-02JA [address] [address]UC: 07/20/2018 Tertiary NOT GIVENUNK [place] Insurance:SELF PAY Community [facility] Number: Effective Repository Date:2018-07-20 07/20/2018 ELDORA Primary [place] Insurance:MEDICARE STARLINDOB: Community HEALTHY [id number] PART A [facility] [id number] Specialty Hospital [facility] Number: Repository RDM[place] [id number]: 330) Date:2018-07-2045 () 07/20/2018 Secondary ELDORA [place] Insurance:RURAL STARLINDOB: Community CARRIER BENEFIT [id number] Hospital PLANPolicy Number: Repository [id number] Date:6098-27-91MC [facility] [address] [place] [address]BX: 07/20/2018 Tertiary NOT GIVENUNK [place] Insurance:SELF PAY Community [facility] Number: Effective Repository Date:2018-07-20 07/20/2018 ELDORA Primary [place] Insurance:MEDICARE STARLINDOB: Community HEALTHY [id number] PART A [facility] [id number] Specialty Hospital - [place] Number: Repository [place] [id number] [address]Ohc: (330) Date:2018-07-20 () 07/20/2018 Secondary ELDORA [place] Insurance:RURAL STARLINDOB: Community CARRIER BENEFIT [id number] Hospital PLANPolic Number: Repository [id number] Date:9105-43-47IN [facility] [address] [address]QA: 07/20/2018 Tertiary NOT GIVENUNK [place] Insurance:SELF PAY Community [facility] Number: Effective Repository Date:2018-07-20 07/20/2018 ELDORA Primary [place]A [place] Insurance:MEDICARE STARLINDOB: Community HEALTHY [id number] PART A [facility] [id number] Specialty Hospital - [place] Number: Repository [place] [id number] 42[address]Fjj: (330) Date:2018-07-20 () 07/20/2018 Secondary ELDORA [place] Insurance:RURAL STARLINDOB: Community CARRIER BENEFIT [id number] Hospital PLANPolicy Number: Repository [id number] Date:7149-73-43[address] [place] [address]MJ: 07/20/2018 Tertiary NOT GIVENUNK [place] Insurance:SELF PAY [facility] Number: Effective Repository Date:2018-07-20 07/20/2018 ELDORA Primary [place]A [place] Insurance:MEDICARE STARLINDOB: Community HEALTHY [id number] PART A [facility] [id number] Specialty Hospital [facility] Number: Repository [place] [id number] [address]Lrw: (330) Date:2018-07-2012 () 07/20/2018 Secondary ELDORA [place] Insurance:RURAL STARLINDOB: Community CARRIER BENEFIT [id number] Hospital PLANPolicy Number: Repository [id number] Date:3556-01-84QM [address] [place] [address]PC: 07/20/2018 Tertiary NOT GIVENUNK [place] Insurance:SELF PAY [facility] Number: Effective Repository Date:2018-07-20 07/20/2018 ELDORA Primary [place] Insurance:MEDICARE STARLINDOB: Community HEALTHY [id number] PART A [facility] [id number] Specialty Hospital - [place] Number: Repository RDMIR[place] [id number]: (330) Date:2018-07-20 () 07/20/2018 Secondary ELDORA [place] Insurance:RURAL STARLINDOB: Community CARRIER BENEFIT [id number] Hospital PLANPolicy Number: Repository [id number] Date:2949-88-27[address] [address]XZ: 07/20/2018 Tertiary NOT [place]K [place] Insurance:SELF PAY [facility] Number: Effective Repository Date:2018-07-20 07/20/2018 ELDORA Primary [place] Insurance:MEDICARE STARLINDOB: Community HEALTHY [id number] PART A [facility] [id number] Specialty Hospital - [place] Number: Repository [place] [id number] [address]Jdg: (330) Date:2018-07-20 [phone] () 07/20/2018 Secondary ELDORA [place] Insurance:RURAL STARLINDOB: Community CARRIER BENEFIT [id number] Number: Repository [id number] Date:1359-11-73DW [facility] [address] [address]ZH: 07/20/2018 Tertiary NOT GIV[place]UNK [place] Insurance:SELF PAY [facility] Number: Effective Repository Date:2018-07-20 07/20/2018 ELDORA Primary [place] Insurance:MEDICARE STARLINDOB: Community HEALTHY [id number] PART A [facility] [id number] Number: Repository [place]GIS[place] [id number] [address]Tjv: (330) Date:2018-07-2011 () 07/20/2018 Secondary ELDORA [place] Insurance:RURAL STARLINDOB: Community CARRIER BENEFIT [id number] Number: Repository [id number] Date:5727-26-98MN [address] [address]FZ: 07/20/2018 Tertiary NOT GIVENUNK [place] Insurance:SELF PAY [facility] Number: Effective Repository Date:2018-07-20 07/20/2018 ELDOR[place] Primary [place] Insurance:MEDICARE STARLINDOB: Community HEALTHY [id number] PART A [facility] [id number] Number: Repository [place] [id number] [address]Fqf: (330) Date:2018-07-20 () 07/20/2018 Secondary ELDORA [place] Insurance:RURAL STARLINDOB: Community CARRIER BENEFIT [id number] Number: Repository [id number] Date:0756-70-51[address] [address]XU: 07/20/2018 Tertiary NOT GIVENUNK [place] Insurance:SELF PAY [facility] Number: Effective Repository Date:2018-07-20 07/20/2018 ELDORA Primary [place] Insurance:MEDICARE STARLINDOB: Community HEALTHY [id number] PART A [facility] [id number] Number: Repository [place]un[place], [place] [id number] [address]Lcz: (330) Date:2018-07-20 () 07/20/2018 Secondary [place] Insurance:RURAL STARLINDOB: Community CARRIER BENEFIT [address] [place] [address] PLANPolicy Number: Repository [id number] Date:5851-59-49MT [address] [place] [address]RC: 07/20/2018 Tertiary NOT GIVENUNK [place] Insurance:SELF PAY [facility] Number: Effective Repository Date:2018-07-20 07/20/2018 ELDORA Primary [place]A [place] Insurance:MEDICARE STARLINDOB: Community HEALTHY [id number] PART A [facility] [id number] Number: Repository [place] [id number] [address]Kiy: (330) Date:2018-07-20 () 07/20/2018 Secondary ELDORA [place]issel Insurance:RURAL STARLINDOB: Community CARRIER BENEFIT [id number] Number: Repository [id number] Date:4366-42-35UU [address] [address]NE: 07/20/2018 Tertiary NOT GIVENUNK [place] Insurance:SELF PAY Community [facility] Number: Effective Repository Date:2018-07-20 07/20/2018 ELDORA Primary ELD[place]A [place] Insurance:MEDICARE STARLINDOB: Community HEALTHY [id number] PART A [facility] [id number] [place] Number: Repository [place] [id number]: (330) Date:2018-07-20 () 07/20/2018 Secondary ELDORA Gissel Insurance:RURAL STARLINDOB: Community CARRIER BENEFIT [id number] [facility] Number[facility] Repository [id number] Date:8767-47-40LZ [address] [place] [address]KX: 07/20/2018 Tertiary NOT GIVENUNK [place] Insurance:SELF PAY [facility] Number: Effective Repository Date:2018-07-20 07/20/2018 ELDORA Primary ELDORA [place] Insurance:MEDICARE STARLINDOB: Community HEALTHY [id number] PART A [facility] [id number] [facility]ty [facility] [place] Number: [place] [id number] [address]Dyd: (330) Date:2018-07-20 () 07/20/2018 Secondary ELDORA Gissel Insurance:RURAL STARLINDOB: Community CARRIER BENEFIT [id number] Number: Repository [id number] Date:1870-56-20JR [address] [place] [address]GG: 07/20/2018 Tertiary NOT GIVENUNK [place] Insurance:SELF PAY [facility] Number: Effective Repository Date:2018-07-20 07/20/2018 ELDORA Primary [place] Insurance:MEDICARE STARLINDOB: Community HEALTHY [id number] PART A [facility] [id number] [facility] [place] Number: Repository [place] [id number] [address]Kei: (330) Date:2018-07-20 () 07/20/2018 Secondary ELDORA Gissel Insurance:RURAL STARLINDOB: Community CARRIER BENEFIT [id number] Hospital PLANPolicy Number: Repository [id number] Date:7041-77-34ZD [address] [address]HF: 07/20/2018 Tertiary NOT GIVENUNK [place] Insurance:SELF PAY [facility] Number: Effective Repository Date:2018-07-20 07/20/2018 ELDORA Primary ELDORA [place] Insurance:MEDICARE STARLINDOB: Community HEALTHY [id number] PART A [facility] [id number] Specialty Hospital [facility] [place] Number: Repository RDM[place] [id number] [address]Lla: 330) Date:2018-07-2022 () 07/20/2018 Secondary ELDORA Gissel Insurance:RURAL STARLINDOB: Community CARRIER BENEFIT [id number] Hospital PLANPolicy Number: Repository [id number] Date:1632-39-05ZG [facility] [address] [address]BT: 07/20/2018 Tertiary NOT GIVENUNK [place] Insurance:SELF PAY [facility] Number: Effective Repository Date:2018-07-20 07/20/2018 ELDORA Primary [place] Insurance:MEDICARE STARLINDOB: Community HEALTHY [id number] PART A [facility] [id number] Specialty Hospital - [place] Number: Repository [place] [id number] [address]Dnp: (330) Date:2018-07-20 () 07/20/2018 Secondary ELDORA [place] Insurance:RURAL STARLINDOB: Community CARRIER BENEFIT [id number] Hospital PLANPolicy Number: Repository [id number] Date:9779-62-12FK [address] [address]DK: 07/20/2018 Tertiary NOT GIVENUNK [place] Insurance:SELF PAY Community [facility] Number: Effective Repository Date:2018-07-20 07/20/2018 ELDORA Primary [place] Insurance:MEDICARE STARLINDOB: Community HEALTHY [id number] PART A [facility] [id number] Specialty Hospital - [place] Number: [place] [id number] [address]Imy: (330) Date:2018-07-20 () 07/20/2018 Secondary ELDORA [place] Insurance:RURAL [place]AR[place]OB: Community CARRIER BENEFIT [id number] Hospital PLANPolicy Number: Repository [id number] Date:9448-89-85XD [address] [place] [address]DA: 07/20/2018 Tertiary NOT GIVENUNK [place] Insurance:SELF PAY [facility] Number: Effective Repository Date:2018-07-20 07/20/2018 ELDORA Primary ELDORA [place] Insurance:MEDICARE STARLINDOB: Community HEALTHY [id number] PART A [facility] [id number] Specialty Hospital - [place] Number: Repository [place] [id number] [address]Qjn: (330) Date:2018-07-20 () 07/20/2018 Secondary ELDORA Gissel Insurance:RURAL STARLINDOB: Community CARRIER BENEFIT [id number] House Health CenterPolicy Number: Repository [id number] Date:1968-62-21DZ [address] [place] [address]LU: 07/20/2018 Tertiary NOT GIVENUNK [place] Insurance:SELF PAY [facility] Hospital Number: Effective Repository Date:2018-07-20 07/20/2018 ELDORA Primary ELDORA [place] Insurance:MEDICARE STAR[place]OB: Community HEALTHY [id number] PART A [facility] [id number] Specialty Hospital - [place] Number: Repository [place] [id number] [address]Pot: (330) Date:2018-07-20 () 07/20/2018 Secondary ELD[place]A [place] Insurance:RURAL STARLINDOB: Community CARRIER BENEFIT [id number] Hospital PLANPolicy Number: Repository [id number] Date:1052-19-56YT [address] [address]RC: 07/20/2018 Tertiary NOT GIVENUNK [place] Insurance:SELF PAY [facility] Number: Effective Repository Date:2018-07-20 07/20/2018 ELDORA Primary [place] Insurance:MEDICARE STARLINDOB: Community HEALTHY [id number] PART A [facility] [id number] Specialty Hospital - [place] Number: Repository [place] [id number] [address]Wux: (330) Date:2018-07-20 [id number] () 07/20/2018 Secondary ELDORA [place] Insurance:RURAL STARLINDOB: Community CARRIER BENEFIT [id number] Number: Repository [id number] Date:2149-30-80HS [facility] [address] [place] [address]ST: 07/20/2018 Tertiary NOT GIVENUNK [place] Insurance:SELF PAY [facility] Number: Effective Repository Date:2018-07-20 07/20/2018 ELDORA Primary [place] Insurance:MEDICARE STARLINDOB: Community HEALTHY [id number] PART A [facility] [id number] Number: Repository [place] [id number] [address]Ocf: (330) Date:2018-07-2083 () 07/20/2018 Secondary ELDORA [place] Insurance:RURAL STARLINDOB: Community CARRIER BENEFIT [id number] Number: Repository [id number] Date:8703-98-07ND [address] [address]CD: 07/20/2018 Tertiary NOT GIVENUNK [place] Insurance:SELF PAY [facility] Number: Effective Repository Date:2018-07-20 07/20/2018 ELDORA Primary [place] Insurance:MEDICARE STARLINDOB: Community HEALTHY [id number] PART A [facility] [id number] Specialty Hospital - [place] Number: Repository [place] [id number] [address]Tpg: (330) Date:2018-07-20 () 07/20/2018 Secondary ELDORA [place] Insurance:RURAL STARL[place]OB: Community CARRIER BENEFIT [address] [place] [address] Number: Repository [id number] Date:4501-10-46YM [address] [address]AY: 07/20/2018 Tertiary NOT GIVENUNK [place] Insurance:SELF PAY [facility] Number: Effective Repository Date:2018-07-20 07/20/2018 ELDORA Primary ELDORA [place] Insurance:MEDICARE STARLINDOB: Community HEALTHY [id number] PART A [facility] [id number] Number: [place] [id number] [address]Wln: (330) Date:2018-07-20 () 07/20/2018 Secondary ELDORA [place] Insurance:RURAL STARL[place]OB: Community CARRIER BENEFIT [address] [place] [address] Number: Repository [id number] Date:2680-93-39BA [address] [place] [address]PY: 07/20/2018 Tertiary NOT GIVENUNK [place] Insurance:SELF PAY [facility] Number: Effective Repository Date:2018-07-20 07/20/2018 ELDORA Primary ELDORA [place] Insurance:MEDICARE STARLINDOB: Community HEALTHY [id number] PART A [facility] [id number] Number: [place] [id number] [address]Ekp: (330) Date:2018-07-20 () 07/20/2018 Secondary ELDORA Giss[place] Insurance:RURAL STARLINDOB: Community CARRIER BENEFIT [id number] Number: Repository [id number] Date:4813-58-34PN [address] [place] [address]OT: 07/20/2018 Tertiary NOT GIVENUNK [place] Insurance:SELF PAY [facility] Hospital Number: Effective Repository Date:2018-07-20 07/20/2018 ELDORA Primary [place] Insurance:MEDICARE STARLINDOB: Community HEALTHY [id number] PART A [facility] [id number] Number: Repository [place] [id number] [address]Wfm: (330) Date:2018-07-20 () 07/20/2018 Secondary ELDORA [place] Insurance:RURAL STARL[place]OB: Community CARRIER BENEFIT [id number] PLANPolicy Number: Repository [id number] Date:8360-17-66BB [address] [place] [address]HZ: 07/20/2018 Tertiary NOT GIVENUNK [place] Insurance:SELF PAY [facility] Number: Effective Repository Date:2018-07-20 07/20/2018 ELDORA Primary [place] Insurance:MEDICARE STARLINDOB: Community HEALTHY [id number] PART A [facility] [id number] Specialty Hospital - [place] Number: Repository [place] [id number] [address]Zsz: (330) Date:2018-07-20 () 07/20/2018 Secondary ELDORA [place] Insurance:RURAL STARLINDOB: Community CARRIER BENEFIT [id number] Number: Repository [id number] Date:2077-75-85QC [address] [place] [address]VT: 07/20/2018 Tertiary NOT GIVENUNK [place] Insurance:SELF PAY [facility] Number: Effective Repository Date:2018-07-20 07/20/2018 ELDORA Primary [place] Insurance:MEDICARE STARLINDOB: Community HEALTHY [id number] PART A [facility] [id number] Number: Repository [place] [id number] [address]Ngp: (330) Date:2018-07-20 () 07/20/2018 Secondary ELDORA [place] Insurance:RURAL STARLINDOB: Community CARRIER BENEFIT [id number] Hospital PLANPolicy Number: Repository [id number] Date:0950-60-19TC [address] [address]IL: 07/20/2018 Tertiary NOT GIVENUNK [place] Insurance:SELF PAY Community [facility] Number: Effective Repository Date:2018-07-20 07/20/2018 ELDORA Primary ELDORA [place] Insurance:MEDICARE STARLINDOB: Community HEALTHY [id number] PART A [facility] [id number] Specialty Hospital - [place] Number: Repository [place] [id number]: 330) Date:2018-07-2082 () 07/20/2018 Secondary ELDORA [place] Insurance:RURAL STARLINDOB: Community CARRIER BENEFIT [id number] PLANPolicy Number: Repository [id number] Date:5519-18-85KE [facility] [address] [place] [address]WG: 07/20/2018 Tertiary NOT GIVENUNK [place] Insurance:SELF PAY [facility] Number: Effective Repository Date:2018-07-20 07/20/2018 ELDORA Primary [place] Insurance:MEDICARE STARLINDOB: Community HEALTHY [id number] PART A [facility] [id number] Number: Repository [place] [id number] [address]Sms: (330) Date:2018-07-20 () 07/20/2018 Secondary ELDORA [place] Insurance:RURAL STARL[place]OB: Community CARRIER BENEFIT [id number] Hospital PLANPolicy Number: Repository [id number] Date:1832-01-21OI [address] [address]BD: 07/20/2018 Tertiary NOT GIVENUNK [place] Insurance:SELF PAY Community [facility] Number: Effective Repository Date:2018-07-20 07/20/2018 ELDORA Primary [place] Insurance:MEDICARE STARLINDOB: Community HEALTHY [id number] PART A [facility] [id number] Specialty Hospital - [facility] Number: Repository [place] [id number] [address]Igb: (330) Date:2018-07-20 () 07/20/2018 Secondary ELDORA [place] Insurance:RURAL [place]AR[place]OB: Community CARRIER BENEFIT [id number] Hospital PLANPolicy Number: Repository [id number] Date:1339-27-66QD [address] [place] [address]LU: 07/20/2018 Tertiary NOT GIVENUNK [place] Insurance:SELF PAY [facility] Number: Effective Repository Date:2018-07-20 07/20/2018 ELDORA Primary [place] Insurance:MEDICARE STARLINDOB: Community HEALTHY [id number] PART A [facility] [id number] Specialty Hospital [facility] Number: Repository [place] [id number] [address]Vhr: (330) Date:2018-07-20 () 07/20/2018 Secondary ELDORA [place] Insurance:RURAL STARL[place]OB: Community CARRIER BENEFIT [id number] Hospital PLANPolicy Number: Repository [id number] Date:3204-06-97NK [address] [address]QE: 07/20/2018 Tertiary NOT GIVENUNK [place] Insurance:SELF PAY [facility] Number: Effective Repository Date:2018-07-20 07/20/2018 ELDORA Primary [place] Insurance:MEDICARE STARLINDOB: Community HEALTHY [id number] PART A [facility] [id number] Specialty Hospital - [place] Number: Repository [place] [id number] [address]Imk: (330) Date:2018-07-20 () 07/20/2018 Secondary ELDORA [place] Insurance:RURAL STAR[place]OB: Community CARRIER BENEFIT [id number] Hospital PLANPolicy Number: Repository [id number] Date:2318-09-71KA [address] [address]XF: 07/20/2018 Tertiary NOT GIVENUNK [place] Insurance:SELF PAY [facility] Number: Effective Repository Date:2018-07-20 07/20/2018 ELDORA Primary [place] Insurance:MEDICARE STARL[place]OB: Community HEALTHY [id number] PART A [facility] [id number] Specialty Hospital - [place] Number: Repository [place] [id number] [address]Zpg: (330) Date:2018-07-2093 () 07/20/2018 Secondary ELDORA Giss[place] Insurance:RURAL STARLINDOB: Community CARRIER BENEFIT [id number] [address] Number: Repository [id number] Date:6781-66-19GM [facility] [address] [address]XM: 07/20/2018 Tertiary NOT GIVENUNK [place] Insurance:SELF PAY [facility] Number: Effective Repository Date:2018-07-20 07/20/2018 ELDORA Primary [place] Insurance:MEDICARE STARLINDOB: Community HEALTHY [id number] PART A [facility] [id number] Specialty Hospital [facility] [place] Number: Repository [place] [id number] [address]Tdh: (330) Date:2018-07-2033 () 07/20/2018 Secondary ELDORA [place]iss[place] Insurance:RURAL STARL[place]OB: Community CARRIER BENEFIT [id number] [address] [facility] Number: Repository [id number] Date:6662-69-15NG [address] [address]AX: 07/20/2018 Tertiary NOT GIVENUNK [place] Insurance:SELF PAY [facility] Number: Effective Repository Date:2018-07-20 07/20/2018 ELDORA Primary [place] Insurance:MEDICARE STARLINDOB: Community HEALTHY [id number] PART A [facility] [id number] Specialty Hospital - [place] Number: Repository [place] [id number] [address]Lhg: (330) Date:2018-07-20 () 07/20/2018 Secondary ELDORA [place] Insurance:RURAL STARLINDOB: Community CARRIER BENEFIT [id number] Number: Repository [id number] Date:8452-94-04WZ [address] [address]TU: 07/20/2018 Tertiary NOT GIVENUNK [place] Insurance:SELF PAY [facility] Number: Effective Repository Date:2018-07-20 07/20/2018 ELDOR[place] Primary [place] Insurance:MEDICARE STARLINDOB: Community HEALTHY [id number] PART A [facility] [id number] Number: Repository [place] [id number] [address]Hmj: (330) Date:2018-07-20 () 07/20/2018 Secondary ELDORA [place] Insurance:RURAL STARLINDOB: Community CARRIER BENEFIT [id number] Number: Repository [id number] Date:8640-11-29PE [address] [place] [address]SK: 07/20/2018 Tertiary NOT GIVENUNK [place] Insurance:SELF PAY [facility] Number: Effective Repository Date:2018-07-20 07/20/2018 ELDORA Primary [place] Insurance:MEDICARE STARLINDOB: Community HEALTHY [id number] PART A [facility] [id number] Number: Repository [place] [id number] [address]Rza: (330) Date:2018-07-20 08087 () 07/20/2018 Secondary ELDORA [place] Insurance:RURAL STARLINDOB: Community CARRIER BENEFIT [id number] Number: Repository [id number] Date:0877-62-35YZ [address] [place] [address]KV: 07/20/2018 Tertiary NOT GIVENUNK [place] Insurance:SELF PAY [facility] Number: Effective Repository Date:2018-07-20 07/20/2018 ELDOR[place] Primary [place] Insurance:MEDICARE STARLINDOB: Community HEALTHY [id number] PART A [address] Number: Repository [place] [id number] [address]Klz: (330) Date:2018-07-20 () 07/20/2018 Secondary ELD[place] Insurance:RURAL STARLINDOB: Community CARRIER BENEFIT [address] [place] [address] Number: Repository [id number] Date:7303-85-09AD [address] [place] [address]TH: 07/20/2018 Tertiary NOT GIVENUNK [place] Insurance:SELF PAY [facility] Number: Effective Repository Date:2018-07-20 07/20/2018 ELDORA Primary [place] Insurance:MEDICARE STARLINDOB: Community HEALTHY [id number] PART A [facility] [id number] Number: Repository [place] [id number] [address]Hst: (330) Date:2018-07-20 () 07/20/2018 Secondary ELDORA [place] Insurance:RURAL STARLINDOB: Community CARRIER BENEFIT [address] [place] [address] Number: Repository [id number] Date:2147-24-49IJ [address] [place] [address]RX: 07/20/2018 Tertiary NOT GIVENUNK [place] Insurance:SELF PAY [facility] Number: Effective Repository Date:2018-07-20 07/20/2018 ELDORA Primary [place] Insurance:MEDICARE STARLINDOB: Community HEALTHY [id number] PART A [address] Number: Repository [place] [id number] [address]Roy: (330) Date:2018-07-20 () 07/20/2018 Secondary ELD[place] Insurance:RURAL STARLINDOB: Community CARRIER BENEFIT [id number] Hospital PLANPolicy Number: Repository [id number] Date:7688-94-89HP [address] [address]WI: 07/20/2018 Tertiary NOT GIVENUNK [place] Insurance:SELF PAY [facility] Number: Effective Repository Date:2018-07-20 07/20/2018 ELDOR[place] Primary [place] Insurance:MEDICARE STARLINDOB: Community HEALTHY [id number] PART A [facility] [id number] Specialty Hospital [facility] [place] Number: Repository [place]DM[place] [id number] [address]Zxc: (977) Date:2018-07-2041 () 07/20/2018 Secondary [place] Insurance:RURAL STARLINDOB: Community CARRIER BENEFIT [id number] PLANPolicy Number: Repository [id number] Date:4632-25-76ZF [address] [place] [address]CM: 07/20/2018 Tertiary NOT GIV[place]UNK [place] Insurance:SELF PAY [facility] Number: Effective Repository Date:2018-07-20 07/20/2018 ELDORA Primary [place] Insurance:MEDICARE STARLINDOB: Community HEALTHY [id number] PART A [facility] [id number] [facility] [place] Number: Repository [place] [id number] [address]Ztq: (330) Date:2018-07-20 () 07/20/2018 Secondary ELD[place] Insurance:RURAL STARLINDOB: Community CARRIER BENEFIT [id number] PLANPolicy Number: Repository [id number] Date:0441-58-34NV [address] [place] [address]FQ: 07/20/2018 Tertiary NOT GIVENUNK [place] Insurance:SELF PAY [facility] Number: Effective Repository Date:2018-07-20 07/20/2018 ELDORA Primary [place] Insurance:MEDICARE STARLINDOB: Community HEALTHY [id number] PART A [facility] [id number] Specialty Hospital - [place] Number: Repository [place] [id number] [address]Wum: (330) Date:2018-07-20 () 07/20/2018 Secondary ELDORA [place] Insurance:RURAL STARLINDOB: Community CARRIER BENEFIT [id number] Hospital PLANPolicy Number: Repository [id number] Date:0301-99-56ZW [address] [place] [address]CB: 07/20/2018 Tertiary NOT GIV[place]K [place] Insurance:SELF PAY [facility] Number: Effective Repository Date:2018-07-20 07/07/2018 ELDORA Primary [place] Insurance:MEDICARE STARLINDOB: Community HEALTHY [id number] PART A [facility] [id number] Specialty [facility] [place] Number: Repository [place] [id number] [address]Csl: (330) Date:2018-07-07 () 07/07/2018 Secondary [place] Insurance:RURAL STARLINDOB: Community CARRIER BENEFIT [id number] Hospital PLANPolicy Number: Repository [id number] Date:0749-97-64BQ [address] [address]LF: 07/07/2018 Tertiary NOT GIVENUNK [place] Insurance:SELF PAY [facility] Number: Effective Repository Date:2018-07-07 06/17/2018 ELDORA [place] Insurance:MEDICARE STARLINDOB: Community HEALTHY [id number] PART A [facility] [id number] Specialty Hospital [facility] [place] Number: Repository [place] [id number] [address]Rzw: (330) Date:2018-03-08 () 06/17/2018 Secondary [place] Insurance:RURAL STARLINDOB: Community CARRIER BENEFIT [id number] Hospital PLANPolicy Number: Repository [id number] Date:1727-60-75GH [address] [address]CU: 06/17/2018 Tertiary NOT GIVENUNK [place] Insurance:SELF PAY [facility] Number: Effective Repository Date:2018-03-08 06/09/2018 ELDORA Primary [place] Insurance:MEDICARE STARLINDOB: Community HEALTHY [id number] PART A [facility] [id number] Specialty Hospital [facility] [place] Number: Repository [place] [id number]: (330) Date:2018-06-092689 () 06/09/2018 Secondary ELDORA Gissel Insurance:RURAL STARLINDOB: Community CARRIER BENEFIT [id number] Hospital PLANPolic Number: Repository [id number] Date:[id number] [facility] [address] [id number]: 06/09/2018 Tertiary NOT GIVENUNK [place] Insurance:SELF PAY [facility] Number: Effective Repository Date:2018-06-09 06/04/2018 ELDORA Primary [place] Insurance:MEDICARE STARLINDOB: Community HEALTHY [id number] PART A [facility] [id number] [place]: [place] [id number]: (330) Date:2018-06-046348 () 06/04/2018 Secondary [place] Insurance:RURAL STARLINDOB: Community CARRIER BENEFIT [id number] Hospital PLANPolicy Number: Repository [id number] Date:5765-51-00[address] [place] [address]WV: 06/04/2018 Tertiary NOT [place] Insurance:SELF PAY [facility] Number: Effective Repository Date:2018-06-04 05/26/2018 [place] Primary [place] Insurance:MEDICARE STARLINDOB: Community HEALTHY [id number] PART A [facility] [id number] [facility]ty [facility] - [place] Number: [place] [id number]: ([phone]) Date:2018-05-14 [phone] () 05/26/2018 Secondary [place] Insurance:RURAL STARLINDOB: Community CARRIER BENEFIT [id number] [facility] Repository [id number] Date:6001-12-23PH [address] [place] [address]GM: 05/26/2018 Tertiary NOT [place]ENUNK [place] Insurance:SELF PAY [facility] Number: Effective Repository Date:2018-05-26 05/09/2018 [place] Primary [place] Insurance:MEDICARE STARLINDOB: Community HEALTHY [id number] PART A [facility] [id number] Number: [place]ository [place] [id number]: (330) Date:2018-05-08 [id number] () 05/09/2018 Secondary [place] Insurance:RURAL STARLINDOB: Community CARRIER BENEFIT [id number] Number: Repository [id number] Date:4755-38-09[address] [address]ZU: 05/09/2018 Tertiary NOT [place]IVENUNK [place] Insurance:SELF PAY [facility] Number: Effective Repository Date:2018-05-08 05/09/2018 [place] Primary [place] Insurance:MEDICARE STARLINDOB: Community HEALTHY [id number] PART A [facility] [id number] Number: [place] [id number]: (330) Date:2018-05-08 [phone] () 05/09/2018 Secondary [place] Insurance:RURAL STARLINDOB: Community CARRIER BENEFIT [id number] Number: Repository [id number] Date:4947-83-80NG [facility] [address] [address]IU: 05/09/2018 Tertiary NOT GIVENUNK [place] Insurance:SELF PAY Community [facility] Number: Effective Repository Date:2018-05-09 05/09/2018 [place] Primary [place] Insurance:MEDICARE STARLINDOB: Community HEALTHY [id number] PART A [facility] [id number] Number: Repository [place] [id number]: (330) Date:2018-05-08 () 05/09/2018 Secondary ELD[place]A Giss[place] Insurance:RURAL STARLINDOB: Community CARRIER BENEFIT [address] [place], [place] [address]icy Number: Repository [id number] Date:8100-53-75YU [address] [place] [address]KN: 05/09/2018 Tertiary NOT GIVENUNK [place] Insurance:SELF PAY [facility] Number: Effective Repository Date:2018-05-09 05/08/2018 [place] Primary [place] Insurance:MEDICARE STARLINDOB: Community HEALTHY [id number] PART A [facility] [id number] Number: [place] [id number]: (330) Date:2018-05-08 () 05/08/2018 Secondary ELDORA Giss[place] Insurance:RURAL STARLINDOB: Community CARRIER BENEFIT [address] [place] [address] Number: Repository [id number] Date:8852-12-49GZ [address] [place] [address]WT: 05/08/2018 Tertiary NOT GIVENUNK [place] Insurance:SELF PAY [facility] Number: Effective Repository Date:2018-05-08 05/08/2018 [place] Primary [place] Insurance:MEDICARE STARLINDOB: Community HEALTHY [id number] PART A [address] Number: [place]ository [place] [id number]: (330) Date:2018-05-08 () 05/08/2018 Secondary [place] Insurance:RURAL STARLINDOB: Community CARRIER BENEFIT [id number] PLANPolicy Number: Repository [id number] Date:1279-61-25IK [address] [address]RS: 05/08/2018 Tertiary NOT GIVENUNK [place] Insurance:SELF PAY Community [facility] Number: Effective Repository Date:2018-05-08 04/14/2018 [place] Insurance:MEDICARE StarlinDOB: Community HEALTHY [id number] PART A [facility] [id number] Number: Repository [place], [place] [id number]: 330) Date:2018-04-14 [phone] () 04/14/2018 Secondary [place] Insurance:RURAL StarlinDOB: Community CARRIER BENEFIT [id number] PLANPolicy Number: Repository [id number] Date:4797-35-06WH [facility] [address] [place] [address]EK: 04/14/2018 Tertiary NOT [place] Insurance:SELF PAY [facility] Number: Effective Repository Date:2018-04-14 03/01/2018 E[place] [id number] Primary [facility] Insurance:MEDICARE STARLINDOB: Community [address] [facility] PART A [facility] [id number] Number: Repository [id number]: [phone] [id number] [phone] () Date:2018-03-01 03/01/2018 Secondary [place] Insurance:RURAL STARL[place]OB: Community CARRIER BENEFIT [id number] PLANPolicy Number: Repository [id number] Date:7258-19-39GQ [address] [place] [address]RQ: 03/01/2018 Tertiary NOT [place]K [place] Insurance:SELF PAY Community [facility] Number: Effective Repository Date:2018-03-01 03/01/2018 [place] [id number] Primary [facility] Insurance:MEDICARE STARLINDOB: Community [address] [facility] PART A [facility] [id number] Number: Repository [id number]: 419 [id number] [phone] () Date:2018-03-01 03/01/2018 Secondary [place] Insurance:RURAL STARLINDOB: Community CARRIER BENEFIT [id number] PLANPolicy Number: Repository [id number] Date:4760-78-71[address] [place] [place] [address]MI: 03/01/2018 Tertiary NOT GIVENUNK [place] Insurance:SELF PAY [facility] Number: Effective Repository Date:2018-03-01 03/01/2018 [place] [id number] Primary [place] Insurance:MEDICARE STARLINDOB: Community [address] [facility] PART A [facility] [id number], [place] Number: Repository [id number]: [phone] [id number] [phone] () Date:2018-03-01 03/01/2018 Secondary [place] Insurance:RURAL STARLINDOB: Community CARRIER BENEFIT [id number] PLANPolicy Number: Repository [id number] Date:3048-69-61VG [address] [place] [address]VL: 03/01/2018 Tertiary NOT [place]K [place] Insurance:SELF PAY [facility] Number: Effective Repository Date:2018-03-01 03/01/2018 [place] [id number] Primary [place] Insurance:MEDICARE STARLINDOB: Community [address] [facility] PART A [facility] [id number] [place] Number: Repository [address]Hrh: 419 [id number] [phone] () Date:2018-03-01 03/01/2018 Secondary [place] Insurance:RURAL STARLINDOB: Community CARRIER BENEFIT [id number] PLANPolicy Number: Repository [id number] Date:4236-10-02VY [address], [place] [address]RX: 03/01/2018 Tertiary NOT GIVENUNK [place] Insurance:SELF PAY Community [facility] Number: Effective Repository Date:2018-03-01 03/01/2018 [place] [id number] Primary [place] Insurance:MEDICARE STARLINDOB: Community [address] PART A [facility] [id number] Number: Repository [id number]: [phone] [id number] [phone] () Date:2018-03-01 03/01/2018 Secondary [place] Insurance:RURAL STARLINDOB: Community CARRIER BENEFIT [id number] Hospital PLANPolicy Number: Repository [id number] Date:7421-94-41[address], [place] [address]PR: 03/01/2018 Tertiary NOT GIVENUNK [place] Insurance:SELF PAY [facility] Number: Effective Repository Date:2018-03-01 03/01/2018 [place] [id number] Primary [place] Insurance:MEDICARE STARLINDOB: Community [address] [facility] PART A [facility] [id number] Number: Repository [id number]: ([phone] [id number] [phone] () Date:2018-03-01 03/01/2018 Secondary E[place] Insurance:RURAL STARLINDOB: Community CARRIER BENEFIT [id number] Hospital PLANPolicy Number: Repository [id number] Date:5613-61-72PT [facility] [address], [place] [address]LR: 03/01/2018 Tertiary NOT [place] Insurance:SELF PAY [facility] Number: Effective Repository Date:2018-03-01 03/01/2018 [place] [id number] Primary [place] Insurance:MEDICARE STARLINDOB: Community [address] PART A [facility] [id number] Number: Repository [id number]: [phone] [id number] [phone] () Date:2018-03-01 03/01/2018 Secondary E[place] G[place] Insurance:RURAL STARLINDOB: Community CARRIER BENEFIT [id number] Hospital PLANPolicy Number: Repository [id number] Date:9697-28-36VI [address] [address]RQ: 03/01/2018 Tertiary NOT GIVENUNK [place] Insurance:SELF PAY Community [facility] Number: Effective Repository Date:2018-03-01 03/01/2018 [place] [id number] Primary [place] Insurance:MEDICARE STARLINDOB: Community [address] PART A [facility] [id number] Number: Repository [address]Uup: 419 [id number] [phone] () Date:2018-03-01 03/01/2018 Secondary [place] Insurance:RURAL STARLINDOB: Community CARRIER BENEFIT [id number] Hospital PLANPolicy Number: Repository [id number] Date:8602-68-27NB [address] [address]EC: 03/01/2018 Tertiary NOT GIVENUNK [place] Insurance:SELF PAY [facility] Number: Effective Repository Date:2018-03-01 03/01/2018 [place] [id number] Primary [place] [facility] Insurance:MEDICARE STARLINDOB: Community [address] [facility] PART A [facility] [id number] Number: Repository [id number]: 419 [id number] [phone] () Date:2017-10-20 03/01/2018 Secondary [place] Insurance:RURAL STARLINDOB: Community CARRIER BENEFIT [id number] Hospital PLANPolic Number: Repository [id number] Date:6392-97-15UY [address] [place] [address]JL: 03/01/2018 Tertiary NOT [place] Insurance:SELF PAY [facility] Number: Effective Repository Date:2017-10-20 01/21/2018 [place] [id number] Primary [place] Insurance:MEDICARE StarlinDOB: Community [address] [facility] PART A [address]12[address]16[facility] Number: Repository [id number]: [phone] [id number] [phone] (HP) Date:2018-01-21 01/21/2018 Secondary [place] Insurance:RURAL StarlinDOB: Community CARRIER BENEFIT [id number] PLANPolicy Number: Repository [id number] Date:3118-20-33BM [address] [place], [place] [address]G[place] [address]WM: 01/21/2018 Tertiary NOT [place] Insurance:SELF PAY [facility] Number: Effective Repository Date:2018-01-21 01/18/2018 [place] [id number] [place] Insurance:MEDICARE StarlinDOB: Community [address] PART A [facility] [id number] John Hospital[place] Number: Repository [id number]: [phone] [id number] [phone] () Date:2018-01-18 01/18/2018 Secondary [place] Insurance:RURAL StarlinDOB: Community CARRIER BENEFIT [id number]Policy Number: Repository [id number] Date:9048-64-40CP [address] [address]MU: 01/18/2018 Tertiary NOT G[place]K [place] Insurance:SELF PAY [facility] Number: Effective Repository Date:2018-01-18 01/15/2018 [place] [id number] Primary [place] Insurance:MEDICARE STARLINDOB: Community [address] PART A [facility] [id number] [facility] Number: Repository [id number]: [phone] [id number] [phone] (HP) Date:2018-01-15 01/15/2018 Secondary [place] Insurance:RURAL STARLINDOB: Community CARRIER BENEFIT [id number] [facility] PLANPoly Number: Repository [id number] Date:6812-60-81YA [address] [address]XJ: 01/15/2018 Tertiary NOT GIVENUNK [place] Insurance:SELF PAY [facility] Number: Effective Repository Date:2018-01-15
== END ==
LOC: OLS.WHLCAR 04:30
PROVIDERS: Visit Provider Family Medicine
DX: D64.9 Anemia, unspecified (principal); J44.9 Chronic obstructive pulmonary disease, unspecified; E11.9 Type 2 diabetes mellitus without complications; E78.5 Hyperlipidemia, unspecified; E03.9 Hypothyroidism, unspecified
CPT/HCPCS: 36415; 80048; 85027

== ENCOUNTER → 2018-11-23 15:00 | Outpatient (REF) | payer MEDICARE, OTHER, SELFPAY ==
[2018-10-13 11:00] VITALS: BMI 29.6
--- OUTSIDE RECORDS SUMMARY | 2019-01-26 03:01 | XMS RPT_ITS ---
:1935 Author Organization OHIP Support Name Relationship Address Phone ARABELLA LÓPEZ Unavailable [address] + [facility] [address] R Unavailable Unavailable Unavailable KINGSLEY, LOU Unavailable [address] + [place] [address] ARABELLA LÓPEZ Unavailable [address] + [place] [address] R Unavailable Unavailable Unavailable KINGSLEY, LOU Unavailable [address] + [place] [address] ARABELLA LÓPEZ Unavailable [address] + [place] [address] R Unavailable Unavailable Unavailable KINGSLEY, LOU Unavailable [address] + [place] [address] ARABELLA LÓPEZ Unavailable [address] + [place] [address] R Unavailable Unavailable Unavailable KINGSLEY, LOU Unavailable [address] + [place] [address] ARABELLA LÓPEZ Unavailable [address] + [place] [address] R Unavailable Unavailable Unavailable KINGSLEY, LOU Unavailable [address] + [place] [address] ARABELLA LÓPEZ Unavailable [address] + [place] [address] R Unavailable Unavailable Unavailable KINGSLEY, LOU Unavailable [address] + [place] [address] ARABELLA LÓPEZ Unavailable [address] + [place] [address] R Unavailable Unavailable Unavailable KINGSLEY, LOU Unavailable [address] + [place] [address] ARABELLA LÓPEZ Unavailable [address] + [place] [address] R Unavailable Unavailable Unavailable KINGSLEY, LOU Unavailable [address] + [place] [address] JACK LÓPEZDY Unavailable [address] + [place] [address] R Unavailable Unavailable Unavailable KINGSLEY, LOU Unavailable [address] + [place] [address] JACK LÓPEZDY Unavailable [address] + [place] [address] R Unavailable Unavailable Unavailable KINGSLEY, LOU Unavailable [address] + [place] [address] ARABELLA LÓPEZ Unavailable [address] + [place] [address] R Unavailable Unavailable Unavailable KINGSLEY, LOU Unavailable [address] + [place] [address] ARABELLA LÓPEZ Unavailable [address] + [place] [address] R Unavailable Unavailable Unavailable KINGSLEY, LOU Unavailable [address] + [place] [address] ARABELLA LÓPEZ Unavailable [address] + [place] [address] R Unavailable Unavailable Unavailable KINGSLEY, LOU Unavailable [address] + [place] [address] ARABELLA LÓPEZ Unavailable [address] + [place] [address] R Unavailable Unavailable Unavailable KINGSLEY, LOU Unavailable [address] + [place] [address] ARABELLA LÓPEZ Unavailable [address] + [place] [address] R Unavailable Unavailable Unavailable KNIGSLEY, LOU Unavailable [address] + [place] [address] JACK LÓPEZDY Unavailable [address] + [place] [address] R Unavailable Unavailable Unavailable KINGSLEY, LOU Unavailable [address] + [place] [address] ARABELLA LÓPEZ Unavailable [address] + [place] [address] R Unavailable Unavailable Unavailable KINGSLEY, LOU Unavailable [address] + [place] [address] ARABELLA LÓPEZ Unavailable [address] + [place] [address] R Unavailable Unavailable Unavailable KINGSLEY, LOU Unavailable [address] + [place] [address] ARABELLA LÓPEZ Unavailable [address] + [place] [address] R Unavailable Unavailable Unavailable KINGSLEY, LOU Unavailable [address] + [place] [address] ARABELLA LÓPEZ Unavailable [address] + [place] [address] R Unavailable Unavailable Unavailable KINGSLEY, LOU Unavailable [address] + [place] [address] ARABELLA LÓPEZ Unavailable [address] + [place] [address] R Unavailable Unavailable Unavailable KINGSLEY, LOU Unavailable [address] + [place] [address] ARABELLA LÓPEZ Unavailable [address] + [place] [address] R Unavailable Unavailable Unavailable KINGSLEY, LOU Unavailable [address] + [place] [address] ARABELLA LÓPEZ Unavailable [address] + [place] [address] R Unavailable Unavailable Unavailable KINGSLEY, LOU Unavailable [address] + [place] [address] ARABELLA LÓPEZ Unavailable [address] + [place] [address] R Unavailable Unavailable Unavailable KINGSLEY, LOU Unavailable [address] + [place] [address] JACK LÓPEZDY Unavailable [address] + [place] [address] R Unavailable Unavailable Unavailable KINGSLEY, LOU Unavailable [address] + [place] [address] ARABELLA LÓPEZ Unavailable [address] + [place] [address] R Unavailable Unavailable Unavailable KINGSLEY, LOU Unavailable [address] + [place] [address] ARABELLA LÓPEZ Unavailable [address] + [place] [address] R Unavailable Unavailable Unavailable KINGSLEY, LOU Unavailable [address] + [place] [address] ARABELLA LÓPEZ Unavailable [address] + [place] [address] R Unavailable Unavailable Unavailable KINGSLEY, LOU Unavailable [address] + [place] [address] ARABELLA LÓPEZ Unavailable [address] + [place] [address] R Unavailable Unavailable Unavailable KINGSLEY, LOU Unavailable [address] + [place] [address] Arabella López Unavailable [address] + [place] [address] R Unavailable Unavailable Unavailable Kingsley, Lou Unavailable [address] + [place] [address] ARABELLA LÓPEZ Unavailable [address] + [place] [address] R Unavailable Unavailable Unavailable KINGSLEY, LOU Unavailable [address] + [place] [address] ARABELLA LÓPEZ Unavailable [address] + [place] [address] R Unavailable Unavailable Unavailable KINGSLEY, LOU Unavailable [address] + [place] [address] ARABELLA LÓPEZ Unavailable [address] + [place] [address] R Unavailable Unavailable Unavailable KINGSLEY, LOU Unavailable [address] + [place] [address] ARABELLA LÓPEZ Unavailable [address] + [place] [address] R Unavailable Unavailable Unavailable KINGSLEY, LOU Unavailable [address] + [place] [address] Arabella López Unavailable [address] + [place] [address] R Unavailable Unavailable Unavailable Kingsley, Lou Unavailable [address] + [place] [address] Arabella López Unavailable [address] + [place] [address] R Unavailable Unavailable Unavailable Kingsley, Lou Unavailable [address] + [place] [address] Arabella López Unavailable [address] + [place] [address] R Unavailable Unavailable Unavailable Kingsley, Lou Unavailable [address] + [place] [address] Arabella López Unavailable [address] + [place] [address] R Unavailable Unavailable Unavailable Kingsley, Lou Unavailable [address] + [place] [address] Arabella López Unavailable [address] + [place] [address] R Unavailable Unavailable Unavailable Kingsley, Lou Unavailable [address] + [place] [address] Arabella López Unavailable [address] + [place] [address] R Unavailable Unavailable Unavailable Kingsley, Lou Unavailable [address] + [place] [address] Arabella López Unavailable [address] + [place] [address] R Unavailable Unavailable Unavailable Kingsley, Lou Unavailable [address] + [place] [address] Arabella López Unavailable [address] + [place] [address] R Unavailable Unavailable Unavailable Kingsley, Lou Unavailable [address] + [place] [address] Arabella López Unavailable [address] + [place] [address] R Unavailable Unavailable Unavailable Kingsley, Lou Unavailable [address] + [place] [address] Arabella López Unavailable [address] + [place] [address] R Unavailable Unavailable Unavailable Kingsley, Lou Unavailable [address] + [place] [address] Arabella López Unavailable [address] + [place] [address] R Unavailable Unavailable Unavailable Kingsley, Lou Unavailable [address] + [place] [address] Arabella López Unavailable [address] + [place] [address] R Unavailable Unavailable Unavailable Kingsley, Lou Unavailable [address] + [place] [address] Arabella López Unavailable [address] + [place] [address] R Unavailable Unavailable Unavailable Kingsley, Lou Unavailable [address] + [place] [address] Arabella López Unavailable [address] + [place] [address] R Unavailable Unavailable Unavailable Kingsley, Lou Unavailable [address] + [place] [address] Arabella López Unavailable [address] + [place] [address] R Unavailable Unavailable Unavailable Kingsley, Lou Unavailable [address] + [place] [address] Arabella López Unavailable [address] + [place] [address] R Unavailable Unavailable Unavailable Kingsley, Lou Unavailable [address] + [place] [address] Arabella López Unavailable [address] + [place] [address] R Unavailable Unavailable Unavailable Kingsley, Lou Unavailable [address] + [place] [address] Arabella López Unavailable [address] + [place] [address] R Unavailable Unavailable Unavailable Kingsley, Lou Unavailable [address] + [place] [address] Arabella López Unavailable [address] + [place] [address] R Unavailable Unavailable Unavailable Kingsley, Lou Unavailable [address] + [place] [address] Arabella López Unavailable [address] + [place] [address] R Unavailable Unavailable Unavailable Kingsley, Lou Unavailable [address] + [place] [address] Arabella López Unavailable [address] + [place] [address] R Unavailable Unavailable Unavailable Kingsley, Lou Unavailable [address] + [place] [address] Arabella López Unavailable [address] + [place] [address] R Unavailable Unavailable Unavailable Kingsley, Lou Unavailable [address] + [place] [address] Arabella López Unavailable [address] + [place] [address] R Unavailable Unavailable Unavailable Kingsley, Lou Unavailable [address] + [place] [address] Arabella López Unavailable [address] + [place] [address] R Unavailable Unavailable Unavailable Kingsley, Lou Unavailable [address] + [place] [address] Arabella López Unavailable [address] + [place] [address] R Unavailable Unavailable Unavailable Kingsley, Lou Unavailable [address] + [place] [address] Arabella López Unavailable [address] + [place] [address] R Unavailable Unavailable Unavailable Kingsley, Lou Unavailable [address] + [place] [address] Arabella López Unavailable [address] + [place] [address] R Unavailable Unavailable Unavailable Kingsley, Lou Unavailable [address] + [place] [address] [place], Arabella Unavailable [address] + [place] [address] R Unavailable Unavailable Unavailable Kingsley, Lou Unavailable [address] + [place] [address] Arabella López Unavailable [address] + [place] [address] R Unavailable Unavailable Unavailable Kingsley, Lou Unavailable [address] + [place] [address] Arabella López Unavailable [address] + [place] [address] R Unavailable Unavailable Unavailable Kingsley, Lou Unavailable [address] + [place] [address] Arabella López Unavailable [address] + [place] [address] R Unavailable Unavailable Unavailable Kingsley, Lou Unavailable [address] + [place] [address] Arabella López Unavailable [address] + [place] [address] R Unavailable Unavailable Unavailable Kingsley, Lou Unavailable [address] + [place] [address] Arabella López Unavailable [address] + [place] [address] R Unavailable Unavailable Unavailable Kingsley, Lou Unavailable [address] + [place] [address] Arabella López Unavailable [address] + [place] [address] R Unavailable Unavailable Unavailable Kingsley, Lou Unavailable [address] + [place] [address] Arabella López Unavailable [address] + [place] [address] R Unavailable Unavailable Unavailable Kingsley, Lou Unavailable [address] + [place] [address] Arabella López Unavailable [address] + [place] [address] R Unavailable Unavailable Unavailable Kingsley, Lou Unavailable [address] + [place] [address] Arabella López Unavailable [address] + [place] [address] R Unavailable Unavailable Unavailable Kingsley, Lou Unavailable [address] + [place] [address] Arabella López Unavailable [address] + [place] [address] R Unavailable Unavailable Unavailable Kingsley, Lou Unavailable [address] + [place] [address] Arabella López Unavailable [address] + [place] [address] R Unavailable Unavailable Unavailable Kingsley, Lou Unavailable [address] + [place] [address] Arabella López Unavailable [address] + [place] [address] R Unavailable Unavailable Unavailable Kingsley, Lou Unavailable [address] + [place] [address] Arabella López Unavailable [address] + [place] [address] R Unavailable Unavailable Unavailable Kingsley, Lou Unavailable [address] + [place] [address] Arabella López Unavailable [address] + [place] [address] R Unavailable Unavailable Unavailable Kingsley, Lou Unavailable [address] + [place] [address] Arabella López Unavailable [address] + [place] [address] R Unavailable Unavailable Unavailable Kingsley, Lou Unavailable [address] + [place] [address] Arabella López Unavailable [address] + [place] [address] R Unavailable Unavailable Unavailable Kingsley, Lou Unavailable [address] + [place] [address] Arabella López Unavailable [address] + [place] [address] R Unavailable Unavailable Unavailable Kingsley, Lou Unavailable [address] + [place] [address] Arabella López Unavailable [address] + [place] [address] R Unavailable Unavailable Unavailable Kingsley, Lou Unavailable [address] + [place] [address] Arabella López Unavailable [address] + [place] [address] R Unavailable Unavailable Unavailable Kingsley, Lou Unavailable [address] + [place] [address] Jack Lópezdy Unavailable [address] + [place] [address] R Unavailable Unavailable Unavailable Kingsley, Lou Unavailable [address] + [place] [address] Arabella López Unavailable [address] + [place] [address] R Unavailable Unavailable Unavailable Kingsley, Lou Unavailable [address] + [place] [address] Jack Lópezdy Unavailable [address] + [place] [address] R Unavailable Unavailable Unavailable Kingsley, Lou Unavailable [address] + [place] [address] Jack Lópezdy Unavailable [address] + [place] [address] R Unavailable Unavailable Unavailable Kingsley, Lou Unavailable [address] + [place] [address] Arabella López Unavailable [address] + [place] [address] R Unavailable Unavailable Unavailable Kingsley, Lou Unavailable [address] + [place] [address] Jack Lópezdy Unavailable [address] + [place] [address] R Unavailable Unavailable Unavailable Kingsley, Lou Unavailable [address] + [place] [address] Arabella López Unavailable [address] + [place] [address] R Unavailable Unavailable Unavailable Kingsley, Lou Unavailable [address] + [place] [address] Jack Lópezdy Unavailable [address] + [place] [address] R Unavailable Unavailable Unavailable Kingsley, Lou Unavailable [address] + [place] [address] Arabella López Unavailable [address] + [place] [address] R Unavailable Unavailable Unavailable Kingsley, Lou Unavailable [address] + [place] [address] Jack Lópezdy Unavailable [address] + [place] [address] R Unavailable Unavailable Unavailable Kingsley, Lou Unavailable [address] + [place] [address] Jack Lópezdy Unavailable [address] + [place] [address] R Unavailable Unavailable Unavailable Kingsley, Lou Unavailable [address] + [place] [address] Jack Lópezdy Unavailable [address] + [place] [address] R Unavailable Unavailable Unavailable Kingsley, Lou Unavailable [address] + [place] [address] Jack Lópezdy Unavailable [address] + [place] [address] R Unavailable Unavailable Unavailable Kingsley, Lou Unavailable [address] + [place] [address] Jack Lópezdy Unavailable [address] + [place] [address] R Unavailable Unavailable Unavailable Kingsley, Lou Unavailable [address] + [place] [address] ARABELLA LÓPEZ (POA) Unavailable [address] + [place] [address] R Unavailable Unavailable Unavailable KINGSLEY, LOU (POA) Unavailable [address] + [place] [address] Jack Lópezdy Unavailable [address] + [place] [address] R Unavailable Unavailable Unavailable Kingsley, Lou Unavailable [address] + [place] [address] Jack Lópezdy Unavailable [address] + [place] [address] R Unavailable Unavailable Unavailable Kingsley, Lou Unavailable [address] + [place] [address] ARABELLA LÓPEZ (POA) Unavailable [address] + [place] [address] R Unavailable Unavailable Unavailable KINGSLEY, LOU (POA) Unavailable [address] + [place] [address] ARABELLA LÓPEZ (POA) Unavailable [address] + [place] [address] R Unavailable Unavailable Unavailable KINGSLEY LOU (POA) Unavailable [address] + [place] [address] ARABELLA LÓPEZ (POA) Unavailable [address] + [place] [address] R Unavailable Unavailable Unavailable KINGSLEY LOU (POA) Unavailable [address] + [place] [address] Arabella López Unavailable [address] + [place] [address] R Unavailable Unavailable Unavailable Kingsley, Lou Unavailable [address] + [place] [address] ARABELLA LÓPEZ (POA) Unavailable [address] + [place] [address] R Unavailable Unavailable Unavailable KINGSLEY, LOU (POA) Unavailable [address] + [place] [address] ARABELLA LÓPEZ (POA) Unavailable [address] + [place] [address] R Unavailable Unavailable Unavailable KINGSLEY, LOU (POA) Unavailable [address] + [place] [address] Arabella López Unavailable [address] + [place] [address] R Unavailable Unavailable Unavailable Kingsley, Lou Unavailable [address] + [place] [address] Arabella López Unavailable [address] + [place] [address] R Unavailable Unavailable Unavailable Kingslye, Lou Unavailable [address] + [place] [address] Arabella López Unavailable [address] + [place] [address] R Unavailable Unavailable Unavailable Kingsley, Lou Unavailable [address] + [place] [address] Jack Lópezdy Unavailable [address] + [place] [address] R Unavailable Unavailable Unavailable Kingsley, Lou Unavailable [address] + [place] [address] Jack Lópezdy Unavailable [address] + [place] [address] R Unavailable Unavailable Unavailable Kingsley, Lou Unavailable [address] + [place] [address] Jack Lópezdy Unavailable [address] + [place] [address] R Unavailable Unavailable Unavailable Kingsley, Lou Unavailable [address] + [place] [address] Jack Lópezdy Unavailable [address] + [place] [address] R Unavailable Unavailable Unavailable Kingsley, Lou Unavailable [address] + [place] [address] Jack Lópezdy Unavailable [address] + [place] [address] R Unavailable Unavailable Unavailable Kingsley, Lou Unavailable [address] + [place] [address] Jack Lópezdy Unavailable [address] + [place] [address] R Unavailable Unavailable Unavailable Kingsley, Lou Unavailable [address] + [place] [address] Jack Lópezdy Unavailable [address] + [place] [address] R Unavailable Unavailable Unavailable Kingsley, Lou Unavailable [address] + [place] [address] Jack Lópezdy Unavailable [address] + [place] [address] R Unavailable Unavailable Unavailable Kingsley, Lou Unavailable [address] [facility] [facility] [address] + [place] [address] Arabella López Unavailable [address] + [place] [address] R Unavailable Unavailable Unavailable Kingsley, Lou Unavailable [address] + [place] [address] Arabella López Unavailable [address] +[phone] [place] [address] R Unavailable Unavailable Unavailable Kingsley, Lou Unavailable [address] [facility] [address] + [place] [address] Care Team Providers Name Role Phone Zackery, Clement Attending Unavailable Zackery, Clement Attending Unavailable Zackery, Clement Attending Unavailable Ousmane Almanza Attending Unavailable Clement Bueno Primary Care Unavailable Ousmane Almanza Attending Unavailable Ousmane Almanza Referring Unavailable Clement Bueno Attending Unavailable Victoria Fu Attending Unavailable Tracy Jones Attending Unavailable Tracy Jones Attending Unavailable Charly Ross Attending Unavailable Tracy Jones Referring Unavailable BenjaTracy valentino Primary Care Unavailable Zackery, Clement Attending Unavailable Zackery, Clement Attending Unavailable Zackery, Clement Attending Unavailable Zackery, Clement Attending Unavailable BenjaTracy Primary Care Unavailable Ashelfah, Ghasem Admitting Unavailable Keeley Bartholomewic Attending Unavailable Cody, Charly Consulting Unavailable Tracy Jones Primary Care Unavailable Jeremi Rosales Attending Unavailable Ashelfah, Ghasem Admitting Unavailable Ashelfah, Ghasem Attending Unavailable Tracy Jones Primary Care Unavailable Ashelfah, Ghasem Consulting Unavailable Ashelfah, Ghasem Admitting Unavailable Benja, Tracy Primary Care Unavailable Cody, Charly Consulting Unavailable Puma, Yefri Attending Unavailable Puma, Yefri Consulting Unavailable Ashelfah, Ghasem Admitting Unavailable Cody Charly Attending Unavailable Tracy Jones Primary Care Unavailable Moodoriana, Charly Consulting Unavailable Joppivory, Yefri Consulting Unavailable Jogwendolyn, Yefri Attending Unavailable Ashelfah, Ghasem Admitting Unavailable Benja, Tracy Primary Care Unavailable Moodispaisa, Charly Consulting Unavailable Jogwendolyn, Yefri Consulting Unavailable Ashelfah, Ghasem Referring Unavailable Cody Charly Attending Unavailable Markus Cueto Attending Unavailable [...] Tia Consulting Unavailable Victoria Lambert Attending Unavailable Tracy Jones Referring Unavailable Benja, Tracy Primary Care Unavailable Clement Coleman Attending Unavailable Tracy Jones Referring Unavailable Charly San Attending Unavailable [facility] Care Unavailable Tracy Jones Attending Unavailable Charly Ross Attending Unavailable Elise, Jone Referring Unavailable [facility] Clement Attending Unavailable [facility] Unavailable IonJuan Jose orellana Consulting Unavailable Paintsil, Lonedell Admitting Unavailable Kasandra Almendarez Attending Unavailable Robotham, Aurora Consulting Unavailable Cody Charly Consulting Unavailable ShashaLokesh Consulting Unavailable Paintsil, Lonedell Admitting Unavailable Robotham, Aurora Attending Unavailable [facility] Unavailable IonuJan Jose Consulting Unavailable Ion, Juan Jose Referring Unavailable Paintsil, Lonedell Consulting Unavailable Paintsil, Lonedell Admitting Unavailable Paintsil, Lonedell Attending Unavailable [facility] Unavailable Ion, Juan Jose Consulting Unavailable Robotham, Aurora Consulting Unavailable Paintsil, Lonedell Consulting Unavailable Paintsil, Lonedell Admitting Unavailable Robotham, Aurora Attending Unavailable [facility] Unavailable Ion, Juan Jose Consulting Unavailable Robotham, Aurora Consulting Unavailable Paintsil, Lonedell Consulting Unavailable Paintsil, Lonedell Admitting Unavailable Paintsil, Lonedell Attending Unavailable [facility] Unavailable Ion, Juan Jose Consulting Unavailable Robotham, Aurora Consulting Unavailable Paintsil, Lonedell Consulting Unavailable Paintsil, Lonedell Admitting Unavailable Robotham, Aurora Attending Unavailable [facility] Unavailable Ion, Juan Jose Consulting Unavailable Robotham, Aurora Consulting Unavailable Paintsil, Lonedell Consulting Unavailable Paintsil, Lonedell Admitting Unavailable Paintsil, Lonedell Attending Unavailable [facility] Unavailable Ion, Juan Jose Consulting Unavailable Robotham, Aurora Consulting Unavailable Moodispaw, Charly Consulting Unavailable Paintsil, Lonedell Consulting Unavailable Paintsil, Lonedell Admitting Unavailable Moodispaw, Charly Attending Unavailable [facility] Unavailable Ion, Juan Jose Consulting Unavailable Robotham, Aurora Consulting Unavailable Moodispaw, Charly Consulting Unavailable Paintsil, Lonedell Consulting Unavailable Paintsil, Lonedell Admitting Unavailable Robotham, Aurora Attending Unavailable [facility] Unavailable Ion, Juan Jose Consulting Unavailable Robotham, Aurora Consulting Unavailable Moodispaw, Charly Consulting Unavailable Paintsil, Lonedell Consulting Unavailable Paintsil, Lonedell Admitting Unavailable Paintsil, Lonedell Attending Unavailable [facility] Unavailable Ion, Juan Jose Consulting Unavailable Robotham, Aurora Consulting Unavailable Moodispaw, Charly Consulting Unavailable Paintsil, Lonedell Consulting Unavailable Paintsil, Lonedell Admitting Unavailable Moodispaw, Charly Attending Unavailable [facility] Unavailable Ion, Juan Jose Consulting Unavailable Robotham, Aurora Consulting Unavailable Moodispaw, Charyl Consulting Unavailable Paintsil, Lonedell Consulting Unavailable Paintsil, Lonedell Admitting Unavailable Nathen Church Attending Unavailable [facility] Unavailable Ion, Juan Jose Consulting Unavailable Robotham, Aurora Consulting Unavailable Moodispaw, Charly Consulting Unavailable Paintsil, Lonedell Consulting Unavailable Paintsil, Lonedell Admitting Unavailable Paintsil, Lonedell Attending Unavailable [facility] Unavailable Ion, Juan Jose Consulting Unavailable Robotham, Aurora Consulting Unavailable Moodispaw, Charly Consulting Unavailable Paintsil, Lonedell Consulting Unavailable Paintsil, Lonedell Admitting Unavailable NoramnPat servin Attending Unavailable [facility] Unavailable Ion, Juan Jose Consulting Unavailable Robotham, Aurora Consulting Unavailable Moodispaw, Charly Consulting Unavailable Paintsil, Lonedell Consulting Unavailable Paintsil, Lonedell Admitting Unavailable Nathen Church Attending Unavailable [facility] Unavailable Ion, Juan Jose Consulting Unavailable Robotham, Aurora Consulting Unavailable Moodispaw, Charly Consulting Unavailable Paintsil, Lonedell Consulting Unavailable Paintsil, Lonedell Admitting Unavailable Paintsil, Lonedell Attending Unavailable [facility] Unavailable Ion, Juan Jose Consulting Unavailable Robotham, Aurora Consulting Unavailable Moodispaw, Charly Consulting Unavailable Paintsil, Lonedell Consulting Unavailable Paintsil, Lonedell Admitting Unavailable Robotham, Aurora Attending Unavailable [facility] Unavailable Ion, Juan Jose Consulting Unavailable Robotham, Aurora Consulting Unavailable Moodispaw, Charly Consulting Unavailable KittoeArnaud Consulting Unavailable Paintsil, Lonedell Admitting Unavailable Moodispaw, Charly Attending Unavailable [facility] Unavailable Ion, Juan Jose Consulting Unavailable Robotham, Aurora Consulting Unavailable Moodispaw, Charly Consulting Unavailable KittoeArnaud Consulting Unavailable Paintsil, Lonedell Admitting Unavailable Kittoe, Arnaud Attending Unavailable [facility] Unavailable Ion, Juan Jose Consulting Unavailable Robotham, Aurora Consulting Unavailable Moodispaw, Charly Consulting Unavailable Kittoe, Arnaud Consulting Unavailable Paintsil, Lonedell Admitting Unavailable Robotham, Aurora Attending Unavailable [facility] Unavailable Ion, Juan Jose Consulting Unavailable IonJuan Jose Referring Unavailable Robotham, Aurora Consulting Unavailable Moodispaw, Charly Consulting Unavailable Kittoe, Arnaud Consulting Unavailable Paintsil, Lonedell Admitting Unavailable KittoeArnaud Attending Unavailable [facility] Unavailable Juan Jose Lemon Consulting Unavailable Robotham, Aurora Consulting Unavailable Moodispaw, Charly Consulting Unavailable Kittoe, Arnaud Consulting Unavailable Paintsil, Lonedell Admitting Unavailable Moodispaw, Charly Attending Unavailable [facility] Unavailable Juan Jose Lemon Consulting Unavailable Robotham, Aurora Consulting Unavailable Moodispaw, Charly Consulting Unavailable Arnaud Lewis Consulting Unavailable Paintsil, Lonedell Admitting Unavailable Robotham, Aurora Attending Unavailable [facility] Unavailable Juan Jose Lemon Consulting Unavailable Robotham, Aurora Consulting Unavailable Moodispaw, Charly Consulting Unavailable KittoArnaud gay Consulting Unavailable Paintsil, Lonedell Admitting Unavailable Kittoyamilet, Arnaud Attending Unavailable [facility] Unavailable IonJuan Jose orellana Consulting Unavailable Robotham, Aurora Consulting Unavailable Moodispaw, Charly Consulting Unavailable Lokesh Pulliam Consulting Unavailable Arnaud Lewis Consulting Unavailable Paintsil, Lonedell Admitting Unavailable Moodispaw, Charly Attending Unavailable [facility] Unavailable Juan Jose Lemon Consulting Unavailable Robotham, Aurora Consulting Unavailable Moodispaw, Charly Consulting Unavailable Lokesh Pulliam Consulting Unavailable KittoArnaud gay Consulting Unavailable Paintsil, Lonedell Admitting Unavailable Robotham, Aurora Attending Unavailable [facility] Unavailable Ion, Juan Jose Consulting Unavailable Robotham, Aurora Consulting Unavailable Moodispaw, Charly Consulting Unavailable Shasha, Lokesh Consulting Unavailable Kittoe, Arnaud Consulting Unavailable Paintsil, Lonedell Admitting Unavailable Moodispaw, Charly Attending Unavailable [facility] Unavailable Ion, Juan Jose Consulting Unavailable Robotham, Aurora Consulting Unavailable Moodispaw, Charly Consulting Unavailable Shasha, Lokesh Consulting Unavailable Kittoe, Arnaud Consulting Unavailable Paintsil, Lonedell Admitting Unavailable KittoeArnaud Attending Unavailable [facility] Unavailable Ion, Juan Jose Consulting Unavailable Robotham, Aurora Consulting Unavailable Moodispaw, Charly Consulting Unavailable Shasha, Lokesh Consulting Unavailable Kittoe, Arnaud Consulting Unavailable Paintsil, Lonedell Admitting Unavailable Robotham, Aurora Attending Unavailable [facility] Unavailable Ion, Juan Jose Consulting Unavailable Robotham, Aurora Consulting Unavailable Moodispaw, Charly Consulting Unavailable Shasha, Lokesh Consulting Unavailable Kittoyamilet, Arnaud Consulting Unavailable Paintsil, Lonedell Admitting Unavailable Kittoe, Arnaud Attending Unavailable [facility] Unavailable Juan Jose Lemon Consulting Unavailable Robotham, Aurora Consulting Unavailable Moodispaw, Charly Consulting Unavailable Shasha, Lokesh Consulting Unavailable Kittoe, Arnaud Consulting Unavailable Paintsil, Lonedell Admitting Unavailable Robotham, Aurora Attending Unavailable [facility] Unavailable Juan Jose Lemon Consulting Unavailable Robotham, Aurora Consulting Unavailable Moodispaw, Charly Consulting Unavailable Shasha, Lokesh Consulting Unavailable Kittoe, Arnaud Consulting Unavailable Paintsil, Lonedell Admitting Unavailable Kittoe, Arnaud Attending Unavailable [facility] Unavailable Juan Jose Lemon Consulting Unavailable Robotham, Aurora Consulting Unavailable Moodispaw, Charly Consulting Unavailable Shasha, Lokesh Consulting Unavailable Kittoe, Arnaud Consulting Unavailable Paintsil, Lonedell Admitting Unavailable Moodispaw, Charly Attending Unavailable [facility] Unavailable Juan Jose Lemon Consulting Unavailable Robotham, Aurora Consulting Unavailable Moodispaw, Charly Consulting Unavailable Shasha, Lokesh Consulting Unavailable Kittoe, Arnaud Consulting Unavailable Paintsil, Lonedell Admitting Unavailable Robotham, Aurora Attending Unavailable [facility] Unavailable Ion, Juan Jose Consulting Unavailable Robotham, Aurora Consulting Unavailable Moodispaw, Charly Consulting Unavailable Shasha, Lokesh Consulting Unavailable KittoeArnaud Consulting Unavailable Paintsil, Lonedell Admitting Unavailable Kittoe, Arnaud Attending Unavailable [facility] Unavailable IonJuan Jose orellana Consulting Unavailable Robotham, Aurora Consulting Unavailable Moodispaw, Charly Consulting Unavailable Shasha, Lokesh Consulting Unavailable Kittoe, Arnaud Consulting Unavailable Paintsil, Lonedell Admitting Unavailable Moodispaw, Charly Attending Unavailable [facility] Unavailable IonJuan Jose orellana Consulting Unavailable Robotham, Aurora Consulting Unavailable Moodispaw, Charly Consulting Unavailable Shasha, Lokesh Consulting Unavailable Kittoe, Arnaud Consulting Unavailable Paintsil, Lonedell Admitting Unavailable Robotham, Aurora Attending Unavailable [facility] Unavailable IonJuan Jose orellana Consulting Unavailable Robotham, Aurora Consulting Unavailable Moodispaw, Charly Consulting Unavailable Shasha, Lokesh Consulting Unavailable Paintsil, Lonedell Consulting Unavailable Paintsil, Lonedell Admitting Unavailable Moodispaw, Charly Attending Unavailable [facility] Unavailable Juan Jose Lemon Consulting Unavailable Robotham, Aurora Consulting Unavailable Moodispaw, Charly Consulting Unavailable Shasha, Lokesh Consulting Unavailable Paintsil, Lonedell Consulting Unavailable Paintsil, Lonedell Admitting Unavailable Paintsil, Lonedell Attending Unavailable [facility] Unavailable Juan Jose Lemon Consulting Unavailable Robotham, Aurora Consulting Unavailable Moodispaw, Charly Consulting Unavailable Shasha, Lokesh Consulting Unavailable Paintsil, Lonedell Consulting Unavailable Paintsil, Lonedell Admitting Unavailable Robotham, Aurora Attending Unavailable [facility] Unavailable IonJuan Jose orellana Consulting Unavailable Robotham, Aurora Consulting Unavailable Moodispaw, Charly Consulting Unavailable Shasha, Lokesh Consulting Unavailable Paintsil, Lonedell Consulting Unavailable Paintsil, Lonedell Admitting Unavailable Paintsil, Lonedell Attending Unavailable [facility] Unavailable Juan Jose Lemon Consulting Unavailable Robotham, Aurora Consulting Unavailable Moodispaw, Charly Consulting Unavailable Shasha, Lokesh Consulting Unavailable Paintsil, Lonedell Consulting Unavailable Paintsil, Lonedell Admitting Unavailable Robotham, Aurora Attending Unavailable [facility] Unavailable IonJuan Jose orellana Consulting Unavailable Robotham, Aurora Consulting Unavailable Moodispaw, Charly Consulting Unavailable Shasha, Lokesh Consulting Unavailable Paintsil, Lonedell Consulting Unavailable Paintsil, Lonedell Admitting Unavailable Paintsil, Lonedell Attending Unavailable [facility] Unavailable Juan Jose Lemon Consulting Unavailable Robotham, Aurora Consulting Unavailable Moodispaw, Charly Consulting Unavailable Shasha, Lokesh Consulting Unavailable Paintsil, Lonedell Consulting Unavailable Paintsil, Lonedell Admitting Unavailable Deborah Knapp PA-C Attending Unavailable Bueno, [facility] Unavailable Ion, Juan Jose Consulting Unavailable Robotham, Aurora Consulting Unavailable Moodispaw, Charly Consulting Unavailable Shasha, Lokesh Consulting Unavailable White, Kasandra Consulting Unavailable White Kasandra Attending Unavailable Paintsil, Lonedell Admitting Unavailable Bueno, Clement Primary [facility] Unavailable Ion, Juan Jose Consulting Unavailable Robotham, Aurora Consulting Unavailable Moodispaw, Charly Consulting Unavailable Shasha, Lokesh Consulting Unavailable White, Kasandra Consulting Unavailable White Kasandra Attending Unavailable Paintsil, Lonedell Admitting Unavailable Bueno, Clement [facility] Unavailable Ion, Juan Jose Consulting Unavailable Robotham, Aurora Consulting Unavailable Moodispaw, Charly Consulting Unavailable Shasha, Lokesh Consulting Unavailable White, Kasandra Consulting Unavailable Zackery, Clement Attending Unavailable Bueno, Clement Attending Unavailable Bueno, Clement Attending Unavailable NoryMarkus Attending Unavailable Victoria Lambert Attending Unavailable Bueno, Clement Referring Unavailable Robotham, Aurora Attending Unavailable Bueno, Clement Referring Unavailable Bueno, Clement Attending Unavailable Rommel Almanzabe Attending Unavailable Bueno, Clement Primary Care Unavailable Ousmane Almanza Attending Unavailable Cami, Efewongbe Referring Unavailable IonJuan Jose Attending Unavailable Robotham, Aurora Referring Unavailable Bueno, Clement Attending Unavailable Bueno, Clement Attending Unavailable Robotham, Aurora Attending Unavailable Bueno, Clement Referring Unavailable Bueno, Clement Attending Unavailable Rommel Almanzabe Attending Unavailable Bueno, Clement Primary Care Unavailable [...] Admitting Unavailable Juan Jose Lemon Attending Unavailable Bueno, Clement [facility] Unavailable Ion, Juan Jose Consulting Unavailable Perkins, Donnie Consulting Unavailable Ashelfah, Ghasem Consulting Unavailable Ashelfah, Ghasem Admitting Unavailable Ashelfah, Ghasem Attending Unavailable [facility] Unavailable Ion, Juan Jose Consulting Unavailable Perkins, Donnie Consulting Unavailable Ashelfah, Ghasem Consulting Unavailable Ashelfah, Ghasem Admitting Unavailable Ion, Juan Jose Attending Unavailable [facility] Unavailable Ion, Juan Jose Consulting Unavailable Perkins, Donnie Consulting Unavailable Ashelfah, Ghasem Consulting Unavailable Ashelfah, Ghasem Admitting Unavailable Ashelfah, Ghasem Attending Unavailable [facility] Unavailable Ion, Juan Jose Consulting Unavailable Perkins, Donnie Consulting Unavailable Ashelfah, Ghasem Consulting Unavailable Ashelfah, Ghasem Admitting Unavailable Ion, Juan Jose Attending Unavailable [facility] Unavailable Ion, Juan Jose Consulting Unavailable Perkins, Donnie Consulting Unavailable Ashelfah, Ghasem Consulting Unavailable Ashelfah, Ghasem Admitting Unavailable Ashelfah, Ghasem Attending Unavailable [facility] Unavailable Ion, Juan Jose Consulting Unavailable Perkins, Donnie Consulting Unavailable Ashelfah, Ghasem Consulting Unavailable Ashelfah, Ghasem Admitting Unavailable IonJuan Jose orellana Attending Unavailable [facility] Unavailable Ion, Juan Jose Consulting Unavailable Perkins, Donnie Consulting Unavailable Ashelfah, Ghasem Consulting Unavailable Ashelfah, Ghasem Admitting Unavailable Ashelfah, Ghasem Attending Unavailable [facility] Unavailable Ion, Juan Jose Consulting Unavailable Perkins, Donnie Consulting Unavailable Ashelfah, Ghasem Consulting Unavailable Ashelfah, Ghasem Admitting Unavailable Sal, Eriberto Attending Unavailable [facility] Unavailable Ion, Juan Jose Consulting Unavailable Perkins, Donnie Consulting Unavailable Sal, Eriberto Consulting Unavailable Clement Bueno Attending Unavailable Ousmane Almanza Attending Unavailable Ousmane Almanza Referring Unavailable Clement Bueno Attending Unavailable Ousmane Almanza Attending Unavailable [facility] Unavailable Clement Bueno Attending Unavailable Bueno, Clement Attending Unavailable PROBLEMS PROBLEMS DATE TYPE CONDITION / CODE ATTENDING STATUS SOURCE 11/22/2018 Unknown D64.9 - Anemia, Clement Bueno Active [place] unspecified / Community D64.9(ICD-10) Hospital Repository 11/22/2018 Unknown E11.9 - Type 2 Clement Bueno Active [place] diabetes mellitus Community without complications Hospital / E11.9(ICD-10) Repository 11/22/2018 Unknown E78.5 - Clement Bueno Active [place] Hyperlipidemia, Community unspecified / Hospital E78.5(ICD-10) Repository 11/22/2018 Unknown E03.9 - Clement Bueno Active [facility] Hypothyroidism, Community unspecified / Hospital E03.9(ICD-10) Repository 11/08/2018 Unknown J44.9 - Chronic Clement Bueno Active [facility] obstructive pulmonary Community disease, unspecified / Hospital J44.9(ICD-10) Repository 11/03/2018 Unknown T81.89XA - Other Oleghe, Active [facility] complications of [facility] procedures, not Hospital elsewhere classified, Repository initial encounter / T81.89XA(ICD-10) 11/15/2018 Unknown G40.901 - Epilepsy, Sal, Eriberto Active [facility] unspecified, not Community intractable, with Hospital status epilepticus / Repository G40.901(ICD-10) 09/22/2018 Unknown T81.32XA - Disruption Oleghe, Active [place] of internal operation [facility] (surgical) wound, not Hospital elsewhere classified, Repository initial encounter / T81.32XA(ICD-10) 09/22/2018 Unknown K63.1 - Perforation of Oleghe, Active [facility] intestine [facility] (nontraumatic) / Hospital K63.1(ICD-10) Repository 08/20/2018 Unknown S31.109A - Unspecified Robotham, Active [place] open wound of [facility] abdominal wall, Hospital unspecified quadrant Repository without penetration into peritoneal cavity, initial encounter / S31.109A(ICD-10) 08/16/2018 Unknown R94.31 - Abnormal Nory, Hamilton Active [place] electrocardiogram Community [ECG] [EKG] / Hospital R94.31(ICD-10) Repository 08/27/2018 Unknown A41.89 - Other Juan Jose Lemon Active [place] specified sepsis / Community A41.89(ICD-10) Hospital Repository 08/27/2018 Unknown R65.21 - Severe sepsis Juan Jose Lemon Active [facility] with septic shock / Community R65.21(ICD-10) Hospital Repository 08/27/2018 Unknown J96.01 - Acute IonJuan Jose orellana Active [place] respiratory failure Community with hypoxia / Hospital J96.01(ICD-10) Repository 08/27/2018 Unknown E11.22 - 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 / Repository E11.22(ICD-10) 08/27/2018 Unknown N18.3 - Chronic kidney Juan Jose Lemon Active [facility] disease, stage 3 Community (moderate) / Hospital N18.3(ICD-10) Repository 08/04/2018 Unknown R00.2 - Palpitations / Charly San Active [facility] R00.2(ICD-10) [facility] Repository 06/23/2018 Unknown 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, 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 / I25.10(ICD-10) 06/23/2018 Unknown I47.1 - Moodispaw, Active [place] Supraventricular [facility] tachycardia / Hospital I47.1(ICD-10) Repository 06/23/2018 Unknown R06.02 - Shortness of Moodispaw, Active [place] breath / [facility] R06.02(ICD-10) Hospital Repository 03/01/2018 Unknown I36.1 - Nonrheumatic [place], Active [facility] tricuspid (valve) [facility] insufficiency / Hospital I36.1(ICD-10) Repository 03/01/2018 Unknown I51.81 - Takotsubo Moodispaw, Active [facility] syndrome / [facility] I51.81(ICD-10) Hospital Repository 03/01/2018 Unknown I34.0 - Nonrheumatic [place], Active [facility] mitral (valve) [facility] insufficiency / Hospital I34.0(ICD-10) Repository 04/27/2018 Unknown N17.9 - Acute kidney Tracy Jones Active [facility] failure, unspecified / Community N17.9(ICD-10) Hospital Repository PROCEDURES PROCEDURES No Procedure Records FoundRESULTS RESULTS CBC-COMPLETE BLOOD CNT Collected: 11/29/2018 Status: F Source: [facility] NO DIFF 8:05 AM [facility] REPOSITORY TYPE CODE TESTS RESULT OUT OF RANGE REFERENCE UNITS LAB L100.1000 4.4-11.0 K/mm3 Normal WBC 6.8 LAB L100.1200 4.2-5.4 M/mm3 Low RBC 2.96 LAB L100.1300 12.0-15.0 g/dl Low HGB 9.5 LAB L100.1400 37-47 % Low HCT 30.1 LAB L100.1500 81-99 fL High MCV 101.7 LAB L100.1600 27.0-32.0 pg High MCH 32.1 LAB L100.1700 32-36 g/gl Low MCHC 31.6 LAB L100.1810 11.6-14.6 % High RDW CV 16.2 LAB L100.1820 35.1-43.9 fl High RDW SD 60.4 LAB L100.1900 150-450 K/mm3 Normal PLT 254 LAB L100.2000 6.2-12.0 fl Normal MPV 9.0 Performed By: #### L100.0500 #### [facility] [address] [place], [place], [address] BASIC METABOLIC Collected: 11/29/2018 Status: F Source: [facility] PROFILE ([facility]) 8:05 AM [facility] REPOSITORY TYPE CODE TESTS RESULT OUT OF RANGE REFERENCE UNITS LAB L501.0100 74-106 mg/dL Low GLU 59 Result Comment: Please note revised GLUCOSE reference range effective 2017. LAB L501.1000 7-18 mg/dL High BUN 34 LAB L501.1100 0.55-1.02 mg/dL High CREAT,SERUM 1.60 Result Comment: The validity of the calculated GFR AND GFRAA in patients over 70 years has not been determined. Clinical correlation is essential. LAB L501.1110 >60 mL/min Low EST GFR 33 Result Comment: Non- GFR Calc LAB L501.1115 >60 mL/min Low EST GFR - AA 40 Result Comment: GFR Calc LAB L501.1300 10-20 RATIO High BUN/CRE 21.2 LAB L501.2200 8.5-10.1 mg/dL CA Normal 8.7 LAB L501.5300 136-145 mmol/L NA Normal 141 LAB L501.5600 3.5-5.1 mmol/L K Normal 4.0 LAB L501.5900 98-107 mmol/L CL Normal 103 LAB L501.6100 21.0-32.0 mmol/L Normal CO2 31.0 LAB L501.6200 5-15 Normal GAP 7 Performed By: #### L500.2500 #### [facility] [address] [place], [address] Observed: 11/23/2018 Status: F Source: FULTS CULTURE, WOUND 3:00 PM [facility] REPOSITORY Comments: WOUND DRAINAGE Gram Stain Gram [...] <=20 S (NF) indicates non-formulary drug at [facility]. Approval by Infectious Disease Specialist required [...] <=0.5 S (NF) indicates non-formulary drug at [facility]. Approval by Infectious Disease Specialist required before non-formulary drugs may be ordered and/or dispensed. * CLSI guidelines does not recommend testing of cephalosporins. This interpretation is deduced from Beta-lactam/penicillin results. Performed By: #### M100.1400 #### [facility] [address] [place], [address] BASIC METABOLIC Collected: 11/22/2018 Status: F Source: FULTS PROFILE (BMP) 6:15 AM [facility] REPOSITORY TYPE CODE TESTS RESULT OUT OF [...] GAP 7 Performed By: #### L500.2500 #### [facility] [address] [place], [place], [address] CBC-COMPLETE BLOOD CNT Collected: 11/22/2018 Status: F Source: GISSEL NO DIFF 6:15 AM [facility] REPOSITORY TYPE CODE TESTS RESULT OUT OF [...] MPV 8.9 Performed By: #### L100.0500 #### [facility] [address] [facility] [place], [place], [address] BASIC METABOLIC Collected: 11/15/2018 Status: F Source: FULTS PROFILE (BMP) 6:50 AM [facility] REPOSITORY Order Comment: 305-1 TYPE CODE TESTS [...] GAP 8 Performed By: #### L500.2500 #### [facility] [address] [facility] [place], [address] CBC-COMPLETE BLOOD CNT Collected: 11/15/2018 Status: F Source: GISSEL NO DIFF 6:50 AM [facility] REPOSITORY TYPE CODE TESTS RESULT OUT OF [...] MPV 9.4 Performed By: #### L100.0500 #### [facility] [address] [place], [address] BASIC METABOLIC Collected: 11/08/2018 Status: F Source: GISSEL PROFILE (BMP) 5:45 AM [facility] REPOSITORY Order Comment: ROOM 305-1 TYPE CODE [...] GAP 8 Performed By: #### L500.2500 #### [facility] [address] [place], [place], [id number] CBC-COMPLETE BLOOD CNT Collected: 11/08/2018 Status: F Source: GISSEL NO DIFF 5:45 AM [facility] REPOSITORY Order Comment: ROOM 305-1 TYPE CODE [...] MPV 9.1 Performed By: #### L100.0500 #### [facility] [address] [place], [place], [address] CBC-COMPLETE BLOOD CNT Collected: 11/01/2018 Status: F Source: GISSEL NO DIFF 5:00 AM [facility] REPOSITORY TYPE CODE TESTS RESULT OUT OF [...] MPV 10.4 Performed By: #### L100.0500 #### [facility] [address] [place], [address] BASIC METABOLIC Collected: 11/01/2018 Status: F Source: FULTS PROFILE (BMP) 5:00 AM [facility] REPOSITORY TYPE CODE TESTS RESULT OUT OF [...] GAP 13 Performed By: #### L500.2500 #### [facility] [address] [place], [place], [id number] BASIC METABOLIC Collected: 10/25/2018 Status: F Source: GISSEL PROFILE (BMP) 6:37 AM [facility] REPOSITORY Order Comment: 408 TYPE CODE TESTS [...] GAP 14 Performed By: #### L500.2500 #### [facility] [address] [place], [place], [address] CBC-COMPLETE BLOOD CNT Collected: 10/25/2018 Status: F Source: GISSEL NO DIFF 6:37 AM [facility] REPOSITORY Order Comment: 408 TYPE CODE TESTS [...] MPV 10.2 Performed By: #### L100.0500 #### [facility] [address] [facility] [place], [place], [address] CBC-COMPLETE BLOOD CNT Collected: 10/18/2018 Status: F Source: FULTS NO DIFF 5:50 AM [facility] REPOSITORY TYPE CODE TESTS RESULT OUT OF [...] MPV 10.4 Performed By: #### L100.0500 #### [facility] [address] [facility]. [place], [place], [address] BASIC METABOLIC Collected: 10/18/2018 Status: F Source: GISSEL PROFILE (BMP) 5:50 AM [facility] REPOSITORY TYPE CODE TESTS RESULT OUT OF [...] GAP 11 Performed By: #### L500.2500 #### [facility] [address] [place], [place] [address], [address] CBC-COMPLETE BLOOD CNT Collected: 10/11/2018 Status: F Source: GISSEL NO DIFF 5:25 AM [facility] REPOSITORY Order Comment: 408 TYPE CODE TESTS [...] MPV 10.9 Performed By: #### L100.0500 #### [facility] [address] [place], [address] BASIC METABOLIC Collected: 10/11/2018 Status: F Source: FULTS PROFILE (BMP) 5:25 AM [facility] REPOSITORY Order Comment: 408 TYPE CODE TESTS [...] GAP 11 Performed By: #### L500.2500 #### [facility] [address] [place], [place], [address] BASIC METABOLIC Collected: 10/04/2018 Status: F Source: GISSEL PROFILE (BMP) 5:25 AM [facility] REPOSITORY Order Comment: ROOM 408 TYPE CODE [...] GAP 10 Performed By: #### L500.2500 #### [facility] [address] [place], [address] CBC-COMPLETE BLOOD CNT Collected: 10/04/2018 Status: F Source: GISSEL NO DIFF 5:25 AM [facility] REPOSITORY Order Comment: ROOM 408 TYPE CODE [...] MPV 10.5 Performed By: #### L100.0500 #### [facility] [address] [facility] [place], [address] 12 LEAD ELECTROCARDIOGRAM Observed: 10/01/2018 Status: F Source: FULTS 9:08 AM [facility] REPOSITORY [facility] Cardiovascular Services [address] [place] [address] 12 Lead EKG 09/15/18 0823 MR#: [id number] Acct: [id number] Name: Catie WYNN Rep #: [id number] : 1935 82 From: Markus Cueto MD Attending Dr: [facility] Status: DIS IN Ordering Dr: Franklyn Gates DO Date: 09/15/18 Location: [facility] Sex: F C Admitted: 09/15/18 Test Reason : SEIZURE Blood Pressure : / mmHG Vent. Rate : 079 BPM Atrial Rate : 079 BPM P-R Int : 162 ms QRS Dur : 088 ms QT Int : 390 ms P-R-T Axes : 034 -48 041 degrees QTc Int : 447 ms Normal sinus rhythm Left axis deviation Abnormal ECG Confirmed by MARKUS CUETO MD ([id number]), photo editor SADIQ BUENO ([id number]) on 09/17/2018 3:46:33 PM Referred By: NATE Confirmed By:MARKUS CUETO MD 09/17/18 1546 Date Markus Cueto MD CC: Franklyn Gates DO; Clement Bueno MD; Eriberto Huang MD Signed BASIC METABOLIC Collected: 09/27/2018 Status: F Source: GISSEL PROFILE (BMP) 6:05 AM [facility] REPOSITORY Order Comment: 408 TYPE CODE TESTS [...] GAP 12 Performed By: #### L500.2500 #### [facility] [address] [place], [address] CBC-COMPLETE BLOOD CNT Collected: 09/27/2018 Status: F Source: GISSEL NO DIFF 6:05 AM [facility] REPOSITORY Order Comment: 408 TYPE CODE TESTS [...] MPV 9.4 Performed By: #### L100.0500 #### [facility] [address] [facility] [place], [address] CBC-COMPLETE BLOOD CNT Collected: 09/22/2018 Status: F Source: GISSEL NO DIFF 6:25 AM [facility] REPOSITORY Order Comment: ROOM 408 TYPE CODE [...] MPV 10.2 Performed By: #### L100.0500 #### [facility] [address] [facility] [place], [address] BASIC METABOLIC Collected: 09/22/2018 Status: F Source: GISSEL PROFILE (BMP) 6:25 AM [facility] REPOSITORY Order Comment: ROOM 408 TYPE CODE [...] GAP 10 Performed By: #### L500.2500 #### [facility] [address] [facility] 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 (Chronic) COPD (chronic obstructive pulmonary disease) (Chronic) Hyperlipidemia (Chronic) Type 2 diabetes mellitus (Chronic) Hospital Course and Treatment Consultations 09/15/18 10:37 Consult: Onc/Wound/dresser tender Routine Comment: Operations: None Summary of Care [...] (Auto) 64.1, Lymph % (Auto) 17.3 L, Gem % (Auto) 7.1, Eos % (Auto) 11.1 [...] applicable Code Visit Inpatient E AND M: 19744 Disch Hosp 09/20/18 1524 <Electronically signed by Eriberto Huang MD> Date Eriberto Huang MD Cosigner Signature (if applicable): Date CC: Clement Bueno MD; Eriberto Huang MD Signed TRANSFER TO EXTENDED Observed: 09/20/2018 Status: F Source: FULTS CARE 9:35 AM [facility] REPOSITORY [facility] Medical Records Department [address] [place] [address] Transfer to Extended Care MR#: [id number] Acct: [id number] Name: Catie WYNN Rep #: [id number] : 1935 82 From: Eriberto Huang MD PCP: Clement Bueno MD Status: ADM IN Catie WYNN [id number] (Patient) (Health Ins. Claim No.) (Day of [...] Regular Diet Food consistency:: Puree Liquid Consistency:: [place] Thick Dietary Modifications:: Pureed Diet [place] Thick Liquids Is pt able to select [...] diet as tolerated to regular- consistency per RESERVATIONS CLERK. Will provide ONS w/ meals and medpass [...] 09/20/2018 Status: F Source: GISSEL 6:52 AM [facility] REPOSITORY TYPE CODE TESTS RESULT OUT OF RANGE REFERENCE UNITS LAB L501.080 70-110 mg/dL Normal BEDSIDE GLU 98 Result Comment: MANAGEMENT OF PATIENT CARE PER NURSING PROTOCOL Performed By: #### L501.080 #### [facility] Point of Care [address] [place], [place] [address] CBC W/DIFF, AUTOMATED Collected: 09/20/2018 Status: F Source: FULTS 5:20 AM [facility] REPOSITORY TYPE CODE TESTS RESULT OUT OF [...] Lymph 1.17 Performed By: #### L100.0100 #### [facility] [address] [place], [place], [address] BASIC METABOLIC Collected: 09/20/2018 Status: F Source: GISSEL PROFILE (BMP) 5:20 AM [facility] REPOSITORY TYPE CODE TESTS RESULT OUT OF [...] GAP 10 Performed By: #### L500.2500 #### [facility] [address] [place], [place], [address] BEDSIDE GLUCOSE Collected: 09/19/2018 Status: F Source: GISSEL 9:01 PM [facility] REPOSITORY TYPE CODE TESTS RESULT OUT OF REFERENCE UNITS RANGE LAB L501.080 70-110 mg/dL High BEDSIDE GLU 137 Result Comment: MANAGEMENT OF PATIENT CARE PER NURSING PROTOCOL Performed By: #### L501.080 #### [facility] Point of Care [address] [place], [place] [address] BEDSIDE GLUCOSE Collected: 09/19/2018 Status: F Source: GISSEL 4:27 PM [facility] REPOSITORY TYPE CODE TESTS RESULT OUT OF REFERENCE UNITS RANGE LAB L501.080 70-110 mg/dL High BEDSIDE GLU 233 Result Comment: MANAGEMENT OF PATIENT CARE PER NURSING PROTOCOL Performed By: #### L501.080 #### [facility] Point of Care [address] [place] [address] BEDSIDE GLUCOSE Collected: 09/19/2018 Status: F Source: GISSEL 10:44 AM [facility] REPOSITORY TYPE CODE TESTS RESULT OUT OF REFERENCE UNITS RANGE LAB L501.080 70-110 mg/dL High BEDSIDE GLU 172 Result Comment: MANAGEMENT OF PATIENT CARE PER NURSING PROTOCOL Performed By: #### L501.080 #### [facility] Point of Care [address] [place] [address] BEDSIDE GLUCOSE Collected: 09/19/2018 Status: F Source: GISSEL 7:07 AM [facility] REPOSITORY TYPE CODE TESTS RESULT OUT OF REFERENCE UNITS RANGE LAB L501.080 70-110 mg/dL High BEDSIDE GLU 112 Result Comment: MANAGEMENT OF PATIENT CARE PER NURSING PROTOCOL Performed By: #### L501.080 #### [facility] Point of Care [address] [place] [address] CBC W/DIFF, AUTOMATED Collected: 09/19/2018 Status: F Source: GISSEL 6:14 AM [facility] REPOSITORY TYPE CODE TESTS RESULT OUT OF [...] Lymph 1.02 Performed By: #### L100.0100 #### [facility] [address] [place], [address] BASIC METABOLIC Collected: 09/19/2018 Status: F Source: FULTS PROFILE (BMP) 6:14 AM [facility] REPOSITORY TYPE CODE TESTS RESULT OUT OF [...] GAP 8 Performed By: #### L500.2500 #### [facility] [address] [place], [address] BEDSIDE GLUCOSE Collected: 09/18/2018 Status: F Source: FULTS 8:59 PM [facility] REPOSITORY TYPE CODE TESTS RESULT OUT OF REFERENCE UNITS RANGE LAB L501.080 70-110 mg/dL High BEDSIDE GLU 331 Result Comment: MANAGEMENT OF PATIENT CARE PER NURSING PROTOCOL Performed By: #### L501.080 #### [facility] Point of Care [address] [place] [address] BEDSIDE GLUCOSE Collected: 09/18/2018 Status: F Source: FULTS 5:10 PM [facility] REPOSITORY TYPE CODE TESTS RESULT OUT OF REFERENCE UNITS RANGE LAB L501.080 70-110 mg/dL High BEDSIDE GLU 289 Result Comment: MANAGEMENT OF PATIENT CARE PER NURSING PROTOCOL Performed By: #### L501.080 #### [facility] Point of Care [address] [place] [address] BEDSIDE GLUCOSE Collected: 09/18/2018 Status: F Source: FULTS 11:07 AM [facility] REPOSITORY TYPE CODE TESTS RESULT OUT OF REFERENCE UNITS RANGE LAB L501.080 70-110 mg/dL High BEDSIDE GLU 216 Result Comment: MANAGEMENT OF PATIENT CARE PER NURSING PROTOCOL Performed By: #### L501.080 #### [facility] Point of Care [address] [place] [address] PROTHROMBIN TIME W/INR Collected: 09/18/2018 Status: F Source: GISSEL 8:20 AM [facility] REPOSITORY Order Comment: REDRAW. PREVIOUS SPECIMEN REJECTED DUE TO Hemolyzed/QNS FOR COAG. 09/18/18 0657 [facility]. TYPE CODE TESTS RESULT OUT OF RANGE REFERENCE UNITS LAB L300.4150 11.7-14.9 SECONDS High PROTIME 18.0 LAB L300.4200 Normal INR 1.5 Performed By: #### L300.3900 #### [facility] [address] [place], [place], [address] BASIC METABOLIC Collected: 09/18/2018 Status: F Source: GISSEL PROFILE (BMP) 8:20 AM [facility] REPOSITORY Order Comment: REDRAW. PREVIOUS SPECIMEN REJECTED [...] GAP 14 Performed By: #### L500.2500 #### [facility] [address] [place], [address] TYPE AND SCREEN Collected: 09/18/2018 Status: F Source: FULTS 8:20 AM [facility] REPOSITORY Order Comment: CMV NEG? N Number [...] NEGATIVE Screen Performed By: #### B101.7450 #### [facility] [address] [facility] [place], [place], [address] RC Collected: 09/18/2018 Status: F Source: FULTS 8:20 AM [facility] REPOSITORY TYPE CODE TESTS RESULT OUT OF REFERENCE UNITS RANGE LAB U100.0000 [id number] TRANSFUSED PRODUCT: T AND S with Crossmatch, Red Cells COUNT: 1 Performed By: #### U100.0000 #### Non-[facility] - refer to report for specific site BEDSIDE GLUCOSE Collected: 09/18/2018 Status: F Source: FULTS 8:16 AM [facility] REPOSITORY TYPE CODE TESTS RESULT OUT OF REFERENCE UNITS RANGE LAB L501.080 70-110 mg/dL High BEDSIDE GLU 145 Result Comment: MANAGEMENT OF PATIENT CARE PER NURSING PROTOCOL Performed By: #### L501.080 #### [facility] Point of Care [address] [facility] [place], [place] [address] CBC W/DIFF, AUTOMATED Collected: 09/18/2018 Status: F Source: FULTS 6:40 AM [facility] REPOSITORY Order Comment: SPECIMEN OBTAINED FROM LINE [...] Lymph 0.86 Performed By: #### L100.0100 #### [facility] [address] [place] [address], [address] BEDSIDE GLUCOSE Collected: 09/17/2018 Status: F Source: FULTS 11:08 PM [facility] REPOSITORY TYPE CODE TESTS RESULT OUT OF REFERENCE UNITS RANGE LAB L501.080 70-110 mg/dL High BEDSIDE GLU 182 Result Comment: MANAGEMENT OF PATIENT CARE PER NURSING PROTOCOL Performed By: #### L501.080 #### [facility] Point of Care [address] [place], [place] [address] BEDSIDE GLUCOSE Collected: 09/17/2018 Status: F Source: GISSEL 4:58 PM [facility] REPOSITORY TYPE CODE TESTS RESULT OUT OF REFERENCE UNITS RANGE LAB L501.080 70-110 mg/dL High BEDSIDE GLU 237 Result Comment: MANAGEMENT OF PATIENT CARE PER NURSING PROTOCOL Performed By: #### L501.080 #### [facility] Point of Care [address] [place] [address] BEDSIDE GLUCOSE Collected: 09/17/2018 Status: F Source: GISSEL 12:27 PM [facility] REPOSITORY TYPE CODE TESTS RESULT OUT OF REFERENCE UNITS RANGE LAB L501.080 70-110 mg/dL High BEDSIDE GLU 166 Result Comment: MANAGEMENT OF PATIENT CARE PER NURSING PROTOCOL Performed By: #### L501.080 #### [facility] Point of Care [address] [place] [address] BRAIN WITHOUT Observed: 09/17/2018 Status: F Source: FULTS CONTRAST 7:41 AM [facility] REPOSITORY [facility] Imaging Services [address] [place] [address] Brain without Contrast MR#: [id number] Acct: [id number] Name: Catie WYNN Rep #: [id number] : 1935 F 82 From: Brandy Bueno MD PCP: Clement Bueno MD Status: ADM IN Study: Brain without Contrast Date of Exam: 09/17/18 Exam# [id number] Ordering Dr: Juan Jose Lemon MD STUDY: [...] Juan Jose Lemon MD; Clement Bueno MD Crimper Assembler: Signed EMERGENCY DEPARTMENT Observed: 09/17/2018 Status: F Source: FULTS SUMMARY 7:05 AM [facility] REPOSITORY [facility] Medical Records Department [address] [place] [address] Emergency Department Summary 09/15/18 0827 MR#: [id number] Acct: [id number] Name: Catie WYNN Rep #: [id number] : 1935 82 From: Franklyn Gates DO [...] using 20 of etomidate for sedation. 16 Prydeinig oral gastric tube was placed. She was [...] 35 minutes This note was generated with [employer] dictation software. It may contain incorrect words, [...] problems, contact your Primary Care Provider. Call [employer] [facility] ([phone]) or report to the closest Emergency Room. Call 911 if necessary. 09/17/18 0705 <Electronically signed by Franklyn Gates DO> Date Franklyn Aragon DO Cosigner Signature (If Indicated): Date CC: Clement Bueno MD CBC W/DIFF, AUTOMATED Collected: 09/17/2018 Status: F Source: GISSEL 6:10 AM [facility] REPOSITORY Order Comment: REDRAW. PREVIOUS SPECIMEN REJECTED [...] Lymph 0.71 Performed By: #### L100.0100 #### [facility] [address] [place], [address] BASIC METABOLIC Collected: 09/17/2018 Status: F Source: GISSEL PROFILE (BMP) 6:10 AM [facility] REPOSITORY Order Comment: REDRAW. PREVIOUS SPECIMEN REJECTED [...] GAP 11 Performed By: #### L500.2500 #### [facility] [address] [place], [address] BEDSIDE GLUCOSE Collected: 09/17/2018 Status: F Source: GISSEL 5:54 AM [facility] REPOSITORY TYPE CODE TESTS RESULT OUT OF REFERENCE UNITS RANGE LAB L501.080 70-110 mg/dL High BEDSIDE GLU 204 Result Comment: MANAGEMENT OF PATIENT CARE PER NURSING PROTOCOL Performed By: #### L501.080 #### [facility] Point [place] [address] CBC W/DIFF, AUTOMATED Collected: 09/17/2018 Status: F Source: GISSEL 4:10 AM [facility] REPOSITORY TYPE CODE TESTS RESULT OUT OF [...] Normal 1+ Performed By: #### L100.0100 #### [facility] [address] [place], [address] BEDSIDE GLUCOSE Collected: 09/16/2018 Status: F Source: FULTS 11:14 PM [facility] REPOSITORY TYPE CODE TESTS RESULT OUT OF REFERENCE UNITS RANGE LAB L501.080 70-110 mg/dL High BEDSIDE GLU 173 Result Comment: MANAGEMENT OF PATIENT CARE PER NURSING PROTOCOL Performed By: #### L501.080 #### [facility] Point of Care [address] [place] [address] BEDSIDE GLUCOSE Collected: 09/16/2018 Status: F Source: FULTS 5:43 PM [facility] REPOSITORY TYPE CODE TESTS RESULT OUT OF REFERENCE UNITS RANGE LAB L501.080 70-110 mg/dL High BEDSIDE GLU 167 Result Comment: MANAGEMENT OF PATIENT CARE PER NURSING PROTOCOL Performed By: #### L501.080 #### [facility] Point of Care [address] [place] [address] BEDSIDE GLUCOSE Collected: 09/16/2018 Status: F Source: FULTS 12:25 PM [facility] REPOSITORY TYPE CODE TESTS RESULT OUT OF REFERENCE UNITS RANGE LAB L501.080 70-110 mg/dL High BEDSIDE GLU 133 Result Comment: MANAGEMENT OF PATIENT CARE PER NURSING PROTOCOL Performed By: #### L501.080 #### [facility] Point of Care [address] [place] [address] ELECTROENCEPHALOGRAM Observed: 09/16/2018 Status: F Source: FULTS 12:04 PM [facility] REPOSITORY [facility] Pulmonary Services/Neurology [address] [place] [address] MR#: [id number] Acct: [id number] Name: Catie WYNN Rep #: [id number] : 1935 82 From: Donnie Perkins MD Referring Dr: Mohsen Goncalves Status: ADM IN Ordering Dr: Date: Location: ICU ICU02-1 Sex: F C - Electroencephalogram Date of [...] Bueno MD; Donnie Perkins MD Date Dictated: 09/16/18 1202 Date Transcribed: 09/16/181201 Crimper Assembler: NF Signed BLOOD GASES BY CPS Collected: 09/16/2018 Status: F Source: GISSEL 6:49 AM [facility] REPOSITORY TYPE CODE TESTS RESULT OUT OF [...] ISTAT 98 Performed By: #### L9000.0800 #### [facility] Point of Care [address] [place] [address] CONSULTATION Observed: 09/16/2018 Status: F Source: FULTS 5:49 AM [facility] REPOSITORY [facility] Medical Records Department [address] [place] [address] Consultation 09/15/18 1332 MR#: [id number] Acct: [id number] Name: JIMENEZ WYNN Rep #: [id number] : 1935 82 From: Juan Jose Lemon [...] Status: Chronic (12) Atherosclerotic heart disease of [place] coronary artery without angina pectoris Status: Chronic Qualifiers: [place] vs. transplanted heart: [place] heart Qualified Code(s): I25.10 - Atherosclerotic heart disease of [place] coronary artery without angina pectoris Comment: Mild [...] medical history listed below, who presented to [facility] on 09/15/2018 after being found unresponsive. Patient [...] (valve) insufficiency (Chronic) 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 Hypothyroidism (Chronic) COPD (chronic obstructive pulmonary disease) (Chronic) Hyperlipidemia (Chronic) Type 2 diabetes mellitus (Chronic) Medical History: Medical History (Last Reviewed 09/15/18 @ 10:01 by Donnie Perkins MD) Takotsubo cardiomyopathy (Chronic) I51.81 Nonrheumatic tricuspid (valve) insufficiency (Chronic) I36.1 Atherosclerotic heart disease of [place] coronary artery without angina pectoris (Chronic) I25.10 [...] surgeries Psychiatric History: No pertinent psych hx BLUEPRINT 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: No pertinent BLUEPRINT DUPLICATOR history [place]: [place] Smoking Status: Never smoker Alcohol: None Drugs: [...] AM to 1:45 PM) Code Visit 9xxxx: [id number] Critical care first hour 09/16/18 0549 <Electronically signed by Juan Jose Lemon MD> Date Juan Jose Lemon MD Cosigner Signature (if applicable): Date CC: Juan Jose Lemon MD; Clement Bueno MD; Donnie Perkins MD Signed BEDSIDE GLUCOSE Collected: 09/16/2018 Status: F Source: GISSEL 5:08 AM [facility] REPOSITORY TYPE CODE TESTS RESULT OUT OF RANGE REFERENCE UNITS LAB L501.080 70-110 mg/dL Normal BEDSIDE GLU 99 Result Comment: MANAGEMENT OF PATIENT CARE PER NURSING PROTOCOL Performed By: #### L501.080 #### [facility] Laboratory Point of Care [address] [place], [place] [address] CBC W/DIFF, AUTOMATED Collected: 09/16/2018 Status: F Source: GISSEL 4:10 AM [facility] REPOSITORY TYPE CODE TESTS RESULT OUT OF [...] Lymph 1.00 Performed By: #### L100.0100 #### [facility] [address] [place], [address] BASIC METABOLIC Collected: 09/16/2018 Status: F Source: GISSEL PROFILE (BMP) 4:10 AM [facility] REPOSITORY TYPE CODE TESTS RESULT OUT OF [...] GAP 10 Performed By: #### L500.2500 #### [facility] [address] [place], [address] BEDSIDE GLUCOSE Collected: 09/16/2018 Status: F Source: GISSEL 3:32 AM [facility] REPOSITORY TYPE CODE TESTS RESULT OUT OF RANGE REFERENCE UNITS LAB L501.080 70-110 mg/dL Normal BEDSIDE GLU 98 Result Comment: MANAGEMENT OF PATIENT CARE PER NURSING PROTOCOL Performed By: #### L501.080 #### [facility] Laboratory Point of Care [address] [place] [address] BEDSIDE GLUCOSE Collected: 09/16/2018 Status: F Source: GISSEL 3:05 AM [facility] REPOSITORY TYPE CODE TESTS RESULT OUT OF REFERENCE UNITS RANGE LAB L501.080 70-110 mg/dL Low BEDSIDE GLU 66 Result Comment: MANAGEMENT OF PATIENT CARE PER NURSING PROTOCOL Performed By: #### L501.080 #### [facility] Laboratory Point of Care [address] [place] [address] BEDSIDE GLUCOSE Collected: 09/15/2018 Status: F Source: GISSEL 11:59 PM [facility] REPOSITORY TYPE CODE TESTS RESULT OUT OF RANGE REFERENCE UNITS LAB L501.080 70-110 mg/dL Normal BEDSIDE GLU 78 Result Comment: MANAGEMENT OF PATIENT CARE PER NURSING PROTOCOL Performed By: #### L501.080 #### [facility] Point of Care [address] [place] [address] BEDSIDE GLUCOSE Collected: 09/15/2018 Status: F Source: GISSEL 11:28 PM [facility] REPOSITORY TYPE CODE TESTS RESULT OUT OF REFERENCE UNITS RANGE LAB L501.080 70-110 mg/dL Low BEDSIDE GLU 51 Result Comment: MANAGEMENT OF PATIENT CARE PER NURSING PROTOCOL Performed By: #### L501.080 #### [facility] Point of Care [address] [place] [address] BEDSIDE GLUCOSE Collected: 09/15/2018 Status: F Source: GISSEL 5:45 PM [facility] REPOSITORY TYPE CODE TESTS RESULT OUT OF RANGE REFERENCE UNITS LAB L501.080 70-110 mg/dL Normal BEDSIDE GLU 82 Result Comment: MANAGEMENT OF PATIENT CARE PER NURSING PROTOCOL Performed By: #### L501.080 #### [facility] Point of Care [address] [place] [address] HISTORY AND PHYSICAL Observed: 09/15/2018 Status: F Source: GISSEL EXAM 2:06 PM [facility] REPOSITORY [facility] Medical Records Department [address] [place] [address] History and Physical 09/15/18 1044 MR#: [id number] Acct: [id number] Name: JIMENEZ WYNN Rep #: [id number] : 1935 82 From: Mohsen Goncalves MD [...] Status: Chronic (9) Atherosclerotic heart disease of [place] coronary artery without angina pectoris Status: Chronic Qualifiers: [place] vs. transplanted heart: [place] heart Qualified Code(s): I25.10 - Atherosclerotic heart disease of [place] coronary artery without angina pectoris Comment: Mild [...] the bedside who is the power of control valve technician. She stated that her mother had single [...] (valve) insufficiency (Chronic) 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 Hypothyroidism (Chronic) COPD (chronic obstructive pulmonary disease) (Chronic) Hyperlipidemia (Chronic) Type 2 diabetes mellitus (Chronic) Medical History: Medical History (Last Reviewed 09/15/18 @ 10:01 by Donnie Perkins MD) Takotsubo cardiomyopathy (Chronic) I51.81 Nonrheumatic tricuspid (valve) insufficiency (Chronic) I36.1 Atherosclerotic heart disease of [place] coronary artery without angina pectoris (Chronic) I25.10 [...] surgeries Psychiatric History: No pertinent psych hx BLUEPRINT 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: No pertinent BLUEPRINT DUPLICATOR history [place]: [place] Smoking Status: Never smoker Alcohol: None Drugs: [...] patient's daughter who is the power of control valve technician and she confirmed that the patient is DNR CCA. This note was generated with PanGenX dictation software. It may contain incorrect words, spelling, and punctuation that were not noted in checking the note before signing. Code Visit Inpatient E AND M: 50642 Init Hosp L3 09/15/18 1406 <Electronically signed by Mohsen Goncalves MD> Date Mohsen Goncalves MD Cosigner Signature: Date (if applicable) CC: Mohsen Goncalves; Clement Bueno MD Signed LACTIC ACID Collected: 09/15/2018 Status: F Source: FULTS 12:30 PM [facility] REPOSITORY Order Comment: Yes/No query for Sepsis Lactate Rule Y TYPE CODE TESTS RESULT OUT OF RANGE REFERENCE UNITS LAB L503.6005 0.4-2.0 mmol/L Normal LACTIC ACID 1.5 Performed By: #### L503.6005 #### [facility] [address] [place], [address] BEDSIDE GLUCOSE Collected: 09/15/2018 Status: F Source: GISSEL 12:19 PM [facility] REPOSITORY TYPE CODE TESTS RESULT OUT OF REFERENCE UNITS RANGE LAB L501.080 70-110 mg/dL High BEDSIDE GLU 162 Result Comment: MANAGEMENT OF PATIENT CARE PER NURSING PROTOCOL Performed By: #### L501.080 #### [facility] Point of Care [address] [place] [address] CONSULTATION Observed: 09/15/2018 Status: F Source: FULTS 11:38 AM [facility] REPOSITORY [facility] Medical Records Department [address] [place] [address] Consultation 09/15/18 1000 MR#: [id number] Acct: [id number] Name: JIMENEZ WYNN Rep #: [id number] : 1935 82 From: Donnie Perkins MD [...] (valve) insufficiency (Chronic) 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 Hypothyroidism (Chronic) COPD (chronic obstructive pulmonary disease) (Chronic) Hyperlipidemia (Chronic) Type 2 diabetes mellitus (Chronic) Medical History: Medical History (Last Reviewed 09/15/18 @ 10:01 by Donnie Perkins MD) Takotsubo cardiomyopathy (Chronic) I51.81 Nonrheumatic tricuspid (valve) insufficiency (Chronic) I36.1 Atherosclerotic heart disease of [place] coronary artery without angina pectoris (Chronic) I25.10 [...] Source: GISSEL CULTURE, BLOOD (WB) 9:00 AM [facility] REPOSITORY BC No growth in 5 days. Performed By: #### M200.1000 #### [facility] [address] [place], [place] [address], [address] BLOOD GASES BY CPS Collected: 09/15/2018 Status: F Source: GISSEL 8:32 AM [facility] REPOSITORY TYPE CODE TESTS RESULT OUT OF [...] ISTAT 97 Performed By: #### L9000.0800 #### [facility] Point of Care [address] [facility] [place], [place] [address] URINE DRUG SCREEN Collected: 09/15/2018 Status: F Source: GISSEL ([facility]) 8:05 AM [facility] REPOSITORY TYPE CODE TESTS RESULT OUT OF [...] Normal NEGATIVE Performed By: #### L505.5000 #### [facility] [address] [facility] [place], [address] URINALYSIS, COMPLETE Collected: 09/15/2018 Status: F Source: GISSEL 8:05 AM [facility] REPOSITORY Order Comment: Microscopic field is filled. [...] URINE SEEN Performed By: #### L400.0001 #### [facility] [address] [facility] [place], [address] Observed: 09/15/2018 Status: F Source: GISSEL CULTURE, URINE 8:05 AM [facility] REPOSITORY Urine Culture Further studies to follow. ORGANISM 1: Laila albicans [place] Count >100,000 Performed By: #### M100.0650 #### [facility] [address] [facility] [place], [address] CHEST 1 VIEW Observed: 09/15/2018 Status: F Source: GISSEL (PORTABLE) 8:04 AM [facility] REPOSITORY [facility] Imaging Services [address] [place] [address] Chest 1 View (Portable) MR#: [id number] Acct: [id number] Name: JIMENEZ WYNN Rep #: [id number] : 1935 F 82 From: Brandy Bueno MD PCP: Clement Bueno MD Status: REG ER Study: Chest 1 View (Portable) Date of Exam: 09/15/18 Exam# [id number] Ordering Dr: Franklyn Gates DO STUDY: X-RAY [...] CC: Franklyn Gates DO; Clement Bueno MD Crimper Assembler: Signed BRAIN/HEAD WITHOUT Observed: 09/15/2018 Status: F Source: GISSEL CONTRAST 8:04 AM [facility] REPOSITORY [facility] Imaging Services [address] [place] [address] Brain/Head without Contrast MR#: [id number] Acct: [id number] Name: JIMENEZ WYNN Rep #: [id number] : 1935 F 82 From: Brandy Bueno MD PCP: Clement Bueno MD Status: REG [place] Study: Brain/Head without Contrast Date of Exam: 09/15/18 Exam# [id number] Ordering Dr: Franklyn Gates DO STUDY: CT [...] CC: Franklyn Gates DO; Clement Bueno MD Crimper Assembler: Signed CBC W/DIFF, AUTOMATED Collected: 09/15/2018 Status: F Source: GISSEL 8:00 AM [facility] REPOSITORY TYPE CODE TESTS RESULT OUT OF [...] Lymph 2.05 Performed By: #### L100.0100 #### [facility] [address] [place], [address] PROTHROMBIN TIME W/INR Collected: 09/15/2018 Status: F Source: FULTS 8:00 AM [facility] REPOSITORY TYPE CODE TESTS RESULT OUT OF RANGE REFERENCE UNITS LAB L300.4150 11.7-14.9 SECONDS High PROTIME 16.8 LAB L300.4200 Normal INR 1.4 Performed By: #### L300.3900, L300.4310 #### [facility] [address] [place], [address] PARTIAL THROMBOPLAST Collected: 09/15/2018 Status: F Source: FULTS TIME 8:00 AM [facility] REPOSITORY TYPE CODE TESTS RESULT OUT OF RANGE REFERENCE UNITS LAB L300.4310 24.1-36.2 Seconds Normal PTT 28.1 Performed By: #### L300.3900, L300.4310 #### [facility] [address] [facility] [place], [address] COMPREHENSIVE METABOLIC Collected: 09/15/2018 Status: F Source: GISSEL PROFIL 8:00 AM [facility] REPOSITORY TYPE CODE TESTS RESULT OUT OF [...] Performed By: #### L500.4050, L501.2450, L501.4010 #### [facility] [address] [facility] [place], [place], [address] LIPASE Collected: 09/15/2018 Status: F Source: FULTS 8:00 AM [facility] REPOSITORY TYPE CODE TESTS RESULT OUT OF RANGE REFERENCE UNITS LAB L501.2450 73-393 U/L Normal LIPASE 96 Performed By: #### L500.4050, L501.2450, L501.4010 #### [facility] [address] [place], [place], [id number] TROPONIN-I Collected: 09/15/2018 Status: F Source: FULTS 8:00 AM [facility] REPOSITORY TYPE CODE TESTS RESULT OUT OF RANGE REFERENCE UNITS LAB L501.4010 <0.045 ng/mL Normal < 0.015 TROPONIN-I Result Comment: TROPONIN-I EXPECTED VALUES <0.045 Negative 0.045 - 0.590 Consistent with Cardiac Damage > OR = 0.600 Critical Value Not every elevated troponin is indicative of OK. These values should be used with clinical judgement in examining the patient's clinical picture for diagnosis. To establish a diagnosis of OK versus myocardial injury, there must be a demonstrated rise and/or fall in the troponin values, in addition to ischemic symptoms, EKG changes, new regional wall motion abnormality, and/or angiographical evidence. PLEASE NOTE: REFERENCE RANGES EDITED 18 Performed By: #### L500.4050, L501.2450, L501.4010 #### [facility] [address] [place], [address] LACTIC ACID Collected: 09/15/2018 Status: F Source: FULTS 8:00 AM [facility] REPOSITORY Order Comment: Yes/No query for Sepsis Lactate Rule Y TYPE CODE TESTS RESULT OUT OF REFERENCE UNITS RANGE LAB L503.6005 0.4-2.0 mmol/L High alert LACTIC ACID 6.3 Result Comment: Critical Result(s) Called at: 08:50:58 09/15/2018 by: Lachelle Francisco Performed By: #### L503.6005 #### [facility] [address] [place], [place], [address] ALCOHOL, BLOOD Collected: 09/15/2018 Status: F Source: GISSEL (MEDICAL)-SERUM 8:00 AM [facility] REPOSITORY TYPE CODE TESTS RESULT OUT OF [...] fatal coma Performed By: #### L501.9100 #### [facility] [address] [place], [place], [address] Observed: 09/15/2018 Status: F Source: GISSEL CULTURE, BLOOD (WB) 8:00 AM [facility] REPOSITORY BC No growth in 5 days. Performed By: #### M200.1000 #### [facility] [address] [facility] [address] BASIC METABOLIC Collected: 09/15/2018 Status: F Source: GISSEL PROFILE (BMP) 6:25 AM [facility] REPOSITORY Order Comment: RM 408 TYPE CODE [...] GAP 12 Performed By: #### L500.2500 #### [facility] [address] [place], [address] CBC-COMPLETE BLOOD CNT Collected: 09/13/2018 Status: F Source: GISSEL NO DIFF 5:20 AM [facility] REPOSITORY TYPE CODE TESTS RESULT OUT OF [...] MPV 9.9 Performed By: #### L100.0500 #### [facility] [address] [place], [place], [address] BASIC METABOLIC Collected: 09/13/2018 Status: F Source: FULTS PROFILE (BMP) 5:20 AM [facility] REPOSITORY TYPE CODE TESTS RESULT OUT OF [...] GAP 9 Performed By: #### L500.2500 #### [facility] [address] [facility] [address] [place], [address] BASIC METABOLIC Collected: 09/10/2018 Status: F Source: GISSEL PROFILE (BMP) 6:10 AM [facility] REPOSITORY Order Comment: 408 TYPE CODE TESTS [...] GAP 11 Performed By: #### L500.2500 #### [facility] [place], [address] CBC-COMPLETE BLOOD CNT Collected: 09/10/2018 Status: F Source: GISSEL NO DIFF 6:10 AM [facility] REPOSITORY Order Comment: 408 TYPE CODE TESTS [...] MPV 10.1 Performed By: #### L100.0500 #### [facility] [place], [address] CBC W/DIFF, AUTOMATED Collected: 09/08/2018 Status: F Source: FULTS 5:30 AM [facility] REPOSITORY Order Comment: 408 TYPE CODE TESTS [...] Lymph 1.05 Performed By: #### L100.0100 #### [facility] [address] [facility] [place], [place], [address] BASIC METABOLIC Collected: 09/08/2018 Status: F Source: FULTS PROFILE (BMP) 5:30 AM [facility] REPOSITORY Order Comment: RM 408 TYPE CODE [...] GAP 12 Performed By: #### L500.2500 #### [facility] [address] [facility] [place], [place], [address] CBC-COMPLETE BLOOD CNT Collected: 09/06/2018 Status: F Source: GISSEL NO DIFF 9:30 AM [facility] REPOSITORY Order Comment: 408 TYPE CODE TESTS [...] MPV 10.2 Performed By: #### L100.0500 #### [facility] [address] [place], [place], [address] BASIC METABOLIC Collected: 09/06/2018 Status: F Source: GISSEL PROFILE (BMP) 9:30 AM [facility] REPOSITORY Order Comment: 408 TYPE CODE TESTS [...] GAP 13 Performed By: #### L500.2500 #### [facility] [address] [facility] [place], [place], [address] URINALYSIS, ROUTINE Collected: 09/03/2018 Status: F Source: GISSEL (DIPSTICK) 12:01 AM [facility] REPOSITORY Order Comment: How was Urine Obtained? [...] 25 ESTERASE Performed By: #### L400.2010 #### [facility] [address] [facility] [place], [place], [address] Observed: 09/03/2018 Status: F Source: GISSEL CULTURE, URINE 12:01 AM [facility] REPOSITORY Urine Culture Culture exhibits no growth. Performed By: #### M100.0650 #### [facility] [address] [facility] [place], [place], [address] CBC W/DIFF, AUTOMATED Collected: 08/31/2018 Status: F Source: GISSEL 5:35 AM [facility] REPOSITORY Order Comment: 408 TYPE CODE TESTS [...] 1+ Normal Performed By: #### L100.0100 #### [facility] [address] [place], [address] BASIC METABOLIC Collected: 08/31/2018 Status: F Source: GISSEL PROFILE (BMP) 5:35 AM [facility] REPOSITORY Order Comment: 408 TYPE CODE TESTS [...] GAP 11 Performed By: #### L500.2500 #### [facility] [address] [place], [address] SURGERY VISIT REPORT Observed: 08/30/2018 Status: F Source: GISSEL 2:22 PM [facility] REPOSITORY [facility] [address] [place] [address] OFFICE VISIT Date of Service: 08/30/18 MR#: [id number] Acct: [id number] Name: JIMENEZ WYNN Rep #: [id number] : 1935 Provider: Aurora Young MD Age/Sex: 82/F Location: [facility] Status: Signed Intake Intake Visit Reasons: F/U Colectomy 07/21 Chief Complaint: weakness Mesh Cutter Required: No Is patient in pain?: No [...] question from the wound nurse at the extended care facility there may have been coffee-ground [...] 84 are real. Aurora Young M.D. Pager: [phone] [facility] [address] [place] [address], [address] [place] [address] Office: [phone] Plan Detail Follow Up 2 Weeks Coding Level of Care Code Global Post Op Diagnoses S/P colectomy Z90.49 Wound infection T14.8XXA; L08.9 Large bowel perforation K63.1 08/30/18 1422 <Electronically signed by Aurora Young MD> Date Aurora Young MD Cosigner Signature: Date (if applicable) CC: Clement Bueno MD WOUND CTR HISTORY Observed: 08/30/2018 Status: F Source: GISSEL AND PHYSICAL 1:10 PM [facility] REPOSITORY [facility] [place] [address] Wound Ctr History AND Physical 08/25/18 1245 MR#: [id number] Acct: [id number] Name: JIMENEZ WYNN Rep #: [id number] : 1935 82 From: Ousmane Almanza MD [...] (valve) insufficiency (Chronic) 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 [...] Date Recorded By Document 08/25/18 09:14 DL [id number] 08/25/18 09:34 DL Wound Center Nurse 1 WC - Nurse 2 - General Ulcer CM Notes Start: 08/25/18 09:05 Freq: Status: Active Protocol: Activity Type Activity Date Activity User E-Sign Co-Sign Detail Recorded Client Recorded Date Recorded By Document 08/25/18 10:07 MW [id number] 08/25/18 10:17 MW Wound Center Nurse 2 [Procedure/Treatment] Neurological: Cranial nerves II-XII grossly intact Psych/Mental Status: Normal Affect Debridement Note Post-Debridement Measurements/Treatment WC - Nurse 2 - General Ulcer CM Notes Start: 08/25/18 09:05 Freq: Status: Active Protocol: Activity Type Activity Date Activity User E-Sign Co-Sign Detail Recorded Client Recorded Date Recorded By Document 08/25/18 10:07 MW [id number] 08/25/18 10:17 MW Wound Center Nurse 2 [...] (Last Reviewed 03/01/18 @ 13:10 by Victoria uF) Nonhealing nonsurgical wound with fat layer exposed [...] 1 week. This note was generated with Pan[employer] dictation software. It may contain incorrect words, spelling, and punctuation that were not noted in checking the note before signing. 08/30/18 1310 <Electronically signed by Ousmane Almanza MD> Date Ousmane Almanza MD CC: Signed CBC-COMPLETE BLOOD CNT Collected: 08/30/2018 Status: F Source: GISSEL NO DIFF 5:35 AM [facility] REPOSITORY Order Comment: 408 TYPE CODE TESTS [...] MPV 10.3 Performed By: #### L100.0500 #### [facility] [address] [place], [address] BASIC METABOLIC Collected: 08/30/2018 Status: F Source: GISSEL PROFILE (BMP) 5:35 AM [facility] REPOSITORY Order Comment: 408 TYPE CODE TESTS [...] GAP 9 Performed By: #### L500.2500 #### [facility] [address] [place], [place], [address] CBC-COMPLETE BLOOD CNT Collected: 08/28/2018 Status: F Source: GISSEL NO DIFF 6:15 AM [facility] REPOSITORY TYPE CODE TESTS RESULT OUT OF [...] MPV 9.9 Performed By: #### L100.0500 #### [facility] [address] [place], [address] BASIC METABOLIC Collected: 08/28/2018 Status: F Source: GISSEL PROFILE (BMP) 6:15 AM [facility] REPOSITORY TYPE CODE TESTS RESULT OUT OF [...] GAP 8 Performed By: #### L500.2500 #### [facility] [address] [place], [address] SURGERY VISIT REPORT Observed: 08/23/2018 Status: F Source: GISSEL 10:01 AM [facility] REPOSITORY [facility] [address] [facility] [place] [address] OFFICE VISIT Date of Service: 08/20/18 MR#: [id number] Acct: [id number] Name: JIMENEZ WYNN Rep #: [id number] : 1935 Provider: Aurora Young MD Age/Sex: 82/F Location: [facility] Status: Signed Intake Intake Visit Reasons: F/U COLECTOMY 07/21/18 Chief Complaint: weakness Mesh Cutter Required: No Is patient in pain?: No [...] every 8 hours for 10 days at [facility]. Discussed with patient that she does need to drink boost 4 times a day even though she is not hungry as well as eat a portion of her meals to help with wound healing and strength. Discussed with the patient and family and also called [facility] and discussed with them the need for wet-to-dry dressings twice daily not just daily plan for a follow-up on August 30. Patient is also scheduled to follow- up with wound center next week on Thursday. Aurora Young M.D. Pager: [phone] [facility] [address] [place] [address], [address] [place] [address] Office: [phone] Orders Orders: Plan Detail Follow Up 1-2 weeks Coding Level of Care Code Global Post Op Diagnoses S/P colectomy Z90.49 Large bowel perforation K63.1 Wound infection T14.8XXA; L08.9 08/23/18 1001 <Electronically signed by Aurora Young MD> Date Aurora Young MD Cosigner Signature: Date (if applicable) CC: Clement Bueno MD CBC-COMPLETE BLOOD CNT Collected: 08/23/2018 Status: F Source: GISSEL NO DIFF 6:00 AM [facility] REPOSITORY Order Comment: 408 TYPE CODE TESTS [...] MPV 9.4 Performed By: #### L100.0500 #### [facility] [place], [address] BASIC METABOLIC Collected: 08/23/2018 Status: F Source: GISSEL PROFILE (BMP) 6:00 AM [facility] REPOSITORY Order Comment: 408 TYPE CODE TESTS [...] GAP 11 Performed By: #### L500.2500 #### [facility] [address] [place], [address] Observed: 08/20/2018 Status: F Source: FULTS CULTURE, DEEP WOUND 1:10 PM [facility] REPOSITORY Gram Stain Gram Stain 2+ White [...] <=1 S (NF) indicates non-formulary drug at [facility]. Approval by Infectious Disease Specialist required [...] <=20 S (NF) indicates non-formulary drug at [facility]. Approval by Infectious Disease Specialist required [...] <=20 S (NF) indicates non-formulary drug at [facility]. Approval by Infectious Disease Specialist required before non-formulary drugs may be ordered and/or dispensed. Cult, Anaerobic No anaerobic bacteria isolated. Performed By: #### M100.1500 #### [facility] [address] [facility] [place], [place], [address] CBC-COMPLETE BLOOD CNT Collected: 08/16/2018 Status: F Source: GISSEL NO DIFF 6:20 AM [facility] REPOSITORY TYPE CODE TESTS RESULT OUT OF [...] MPV 9.2 Performed By: #### L100.0500 #### [facility] [address] [place], [place], [address] BASIC METABOLIC Collected: 08/16/2018 Status: F Source: GISSEL PROFILE (BMP) 6:20 AM [facility] REPOSITORY TYPE CODE TESTS RESULT OUT OF [...] GAP 7 Performed By: #### L500.2500 #### [facility] [address] [place], [address] COMPREHENSIVE METABOLIC Collected: 08/11/2018 Status: F Source: [facility] 7:25 AM [facility] REPOSITORY TYPE CODE TESTS RESULT OUT OF [...] GAP 9 Performed By: #### L500.4050 #### [facility] [address] [place], [address] CBC W/DIFF, AUTOMATED Collected: 08/11/2018 Status: F Source: FULTS 7:25 AM [facility] REPOSITORY TYPE CODE TESTS RESULT OUT OF [...] Lymph 0.67 Performed By: #### L100.0100 #### [facility] [address] [place], [address] BASIC METABOLIC Collected: 08/09/2018 Status: F Source: FULTS PROFILE ([facility]) 5:40 AM [facility] REPOSITORY Order Comment: 408 TYPE CODE TESTS [...] GAP 8 Performed By: #### L500.2500 #### [facility] [address] [place], [address] CBC-COMPLETE BLOOD CNT Collected: 08/09/2018 Status: F Source: GISSEL NO DIFF 5:40 AM [facility] REPOSITORY Order Comment: 408 TYPE CODE TESTS [...] MPV 9.6 Performed By: #### L100.0500 #### [facility] [address] [facility] [place], [place], [address] Observed: 08/09/2018 Status: F Source: GISSEL CDIFF (MOLECULAR) 3:30 AM [facility] REPOSITORY Comments: SAMPLE FROM COLOSTOMY BAG Cdiff-Molecular Normal Reference Range = Negative C. Diff DNA Negative- No toxigenic C. Diff DNA Detected NAAT METHOD Testing was performed using nucleic acid amplification Performed By: #### M100.6796 #### [facility] [address] [place], [address] DISCHARGE SUMMARY Observed: 08/06/2018 Status: F Source: FULTS 2:27 PM [facility] REPOSITORY [facility] Medical Records Department [address] [place] [address] Discharge Summary 08/06/18 1357 MR#: [id number] Acct: [id number] Name: JIMENEZ WYNN Rep #: [id number] : 1935 82 From: King MORRISON PCP: Clement Bueno MD Status: DIS IN Y Location: [place] [address] ADDENDUM by Kasandra Almendarez on 08/06/18 at [...] SVT, Takotsubo Cardiomyopathy who presented to the [facility] ED on 07/20/18 w/ history of [...] to BID lower dose lantus, transitioned to [facility] ISS as advanced diet. Patient discharged to [...] primary care physician in addition to her Shredder Picker within 2 weeks, Surgery within 1 week [...] hospital summary above. 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 Consultations 07/21/18 06:48 Consult: Onc/Wound/dresser tender Routine Comment: Reason for Consult:: new colostomy Ion - assembler knife Cody - Cardiology Hannah/Sherly - gen surgery Shasha - FRANK Operations: - - Exploratory laparotomy with left colon resection, colostomy Procedures: - - TPN, NG tube Summary of Care Provided: The patient is a 82 year old F past medical history as above who presented to the emergency room from [facility] facility with generalized malaise and confusion. She [...] severely debilitated. She will continue to need [facility] with PT OT and ST. She needs ongoing ostomy care. She is now in stable condition and being discharged back to [facility]. She will need to follow-up with general surgery in 1 week, infectious disease, cardiology, and her PCP. [] Discharge Diet: Low fat/ Low Cholesterol, 2000 mg Sodium Diet, - - Glucerna 4x/day, honey thick liquids Discharge Activity: Return to Normal Activity Home Medications: Medications to take at Discharge Levothyroxine [Synthroid] 25 mcg PO DAILY@0600 07/22/16 Trazodone HCl 50 mg PO QHS 05/23/16 [...] Charly Ross MD When: 2 weeks Disposition: Snf facility Minutes spent on discharge:: 40 Patient [...] BEDSIDE GLUCOSE Collected: 08/06/2018 Status: F Source: FULTS 12:52 PM [facility] REPOSITORY TYPE CODE TESTS RESULT OUT OF REFERENCE UNITS RANGE LAB L501.080 70-110 mg/dL High BEDSIDE GLU 221 Result Comment: MANAGEMENT OF PATIENT CARE PER NURSING PROTOCOL Performed By: #### L501.080 #### [facility] Laboratory Point of Care [address] [facility] [place] [address] TRANSFER TO [facility] Observed: 08/06/2018 Status: F Source: [facility] 11:53 AM [facility] REPOSITORY [facility] Medical Records Department [address] [place] [address] Transfer to [facility] MR#: [id number] Acct: [id number] Name: JIMENEZ WYNN Rep #: [id number] : 1935 82 From: King MORRISON PCP: Clement Bueno MD Status: ADM IN JIMENEZ WYNN (Patient) (Health Ins. Claim No.) (Day of Discharge to Facility) Certification of patient admission REQUIRED AT TIME OF ADMISSION. I CERTIFY THAT [facility] SERVICES ARE REQUIRED TO BE GIVEN ON AN IN-PATIENT BASIS BECAUSE OF THE ABOVE NAMED PATIENT'S NEED FOR [facility] CARE ON A CONTINUING BASIS FOR THE CONDITION(S) FOR WHICH HE/SHE WAS RECEIVING IN-PATIENT HOSPITAL SERVICES PRIOR TO HIS/HER TRANSFER TO THE [facility]. 08/06/18 1139 <Electronically signed by King [...] Visit: Yes (8) Atherosclerotic heart disease of [place] coronary artery without angina pectoris Status: Chronic [...] 120 mL 4x/day w/ medpass- consistency per RESERVATIONS CLERK. - Follow Up Care Primary Care Physician: [...] 08/06/2018 Status: F Source: GISSEL 6:32 AM [facility] REPOSITORY TYPE CODE TESTS RESULT OUT OF REFERENCE UNITS RANGE LAB L501.080 70-110 mg/dL High BEDSIDE GLU 186 Result Comment: MANAGEMENT OF PATIENT CARE PER NURSING PROTOCOL Performed By: #### L501.080 #### [facility] Laboratory Point of Care [address] [place], [place] [id number] CBC-COMPLETE BLOOD CNT Collected: 08/06/2018 Status: F Source: GISSEL NO DIFF 5:45 AM [facility] REPOSITORY Order Comment: SPECIMEN OBTAINED FROM LINE [...] MPV 9.0 Performed By: #### L100.0500 #### [facility] [address] [place], [place], [id number] BASIC METABOLIC Collected: 08/06/2018 Status: F Source: GISSEL PROFILE (BMP) 5:45 AM [facility] REPOSITORY Order Comment: SPECIMEN OBTAINED FROM LINE [...] GAP 8 Performed By: #### L500.2500 #### [facility] [address] [place], [place], [address] BEDSIDE GLUCOSE Collected: 08/05/2018 Status: F Source: GISSEL 9:02 PM [facility] REPOSITORY TYPE CODE TESTS RESULT OUT OF REFERENCE UNITS RANGE LAB L501.080 70-110 mg/dL High BEDSIDE GLU 153 Result Comment: MANAGEMENT OF PATIENT CARE PER NURSING PROTOCOL Performed By: #### L501.080 #### [facility] Laboratory Point of Care [address] [place], [place] [address] BEDSIDE GLUCOSE Collected: 08/05/2018 Status: F Source: GISSEL 5:28 PM [facility] REPOSITORY TYPE CODE TESTS RESULT OUT OF REFERENCE UNITS RANGE LAB L501.080 70-110 mg/dL High BEDSIDE GLU 179 Result Comment: MANAGEMENT OF PATIENT CARE PER NURSING PROTOCOL Performed By: #### L501.080 #### [facility] Point of Care [address] [place] [address] BEDSIDE GLUCOSE Collected: 08/05/2018 Status: F Source: GISSEL 11:33 AM [facility] REPOSITORY TYPE CODE TESTS RESULT OUT OF REFERENCE UNITS RANGE LAB L501.080 70-110 mg/dL High BEDSIDE GLU 190 Result Comment: MANAGEMENT OF PATIENT CARE PER NURSING PROTOCOL Performed By: #### L501.080 #### [facility] Laboratory Point of Care [address] [place] [address] BEDSIDE GLUCOSE Collected: 08/05/2018 Status: F Source: GISSEL 5:22 AM [facility] REPOSITORY TYPE CODE TESTS RESULT OUT OF REFERENCE UNITS RANGE LAB L501.080 70-110 mg/dL High BEDSIDE GLU 134 Result Comment: MANAGEMENT OF PATIENT CARE PER NURSING PROTOCOL Performed By: #### L501.080 #### [facility] Laboratory Point of Care [address] [place] [address] BEDSIDE GLUCOSE Collected: 08/04/2018 Status: F Source: GISSEL 11:05 PM [facility] REPOSITORY TYPE CODE TESTS RESULT OUT OF REFERENCE UNITS RANGE LAB L501.080 70-110 mg/dL High BEDSIDE GLU 143 Result Comment: MANAGEMENT OF PATIENT CARE PER NURSING PROTOCOL Performed By: #### L501.080 #### [facility] Point of Care [address] [place] [address] BEDSIDE GLUCOSE Collected: 08/04/2018 Status: F Source: GISSEL 5:00 PM [facility] REPOSITORY TYPE CODE TESTS RESULT OUT OF REFERENCE UNITS RANGE LAB L501.080 70-110 mg/dL High BEDSIDE GLU 152 Result Comment: MANAGEMENT OF PATIENT CARE PER NURSING PROTOCOL Performed By: #### L501.080 #### [facility] Point of Care [address] [place] [address] BEDSIDE GLUCOSE Collected: 08/04/2018 Status: F Source: GISSEL 11:55 AM [facility] REPOSITORY TYPE CODE TESTS RESULT OUT OF REFERENCE UNITS RANGE LAB L501.080 70-110 mg/dL High BEDSIDE GLU 182 Result Comment: MANAGEMENT OF PATIENT CARE PER NURSING PROTOCOL Performed By: #### L501.080 #### [facility] Point of Care [address] [place] [address] Observed: 08/04/2018 Status: F Source: GISSEL CULTURE, WOUND 8:50 AM [facility] REPOSITORY Comments: abdominal wound Gram Stain Gram [...] 160 R (NF) indicates non-formulary drug at [facility]. Approval by Infectious Disease Specialist required before non-formulary drugs may be ordered and/or dispensed. Performed By: #### M100.1400 #### [facility]. [facility] [address] BEDSIDE GLUCOSE Collected: 08/04/2018 Status: F Source: FULTS 5:16 AM [facility] REPOSITORY TYPE CODE TESTS RESULT OUT OF REFERENCE UNITS RANGE LAB L501.080 70-110 mg/dL High BEDSIDE GLU 159 Result Comment: MANAGEMENT OF PATIENT CARE PER NURSING PROTOCOL Performed By: #### L501.080 #### [facility] Point of Care [address] [place] [address] BASIC METABOLIC Collected: 08/04/2018 Status: F Source: GISSEL PROFILE (BMP) 4:30 AM [facility] REPOSITORY TYPE CODE TESTS RESULT OUT OF [...] GAP 7 Performed By: #### L500.2500 #### [facility] [address] [facility] [place], [place], [id number] BEDSIDE GLUCOSE Collected: 08/03/2018 Status: F Source: GISSEL 11:37 PM [facility] REPOSITORY TYPE CODE TESTS RESULT OUT OF REFERENCE UNITS RANGE LAB L501.080 70-110 mg/dL High BEDSIDE GLU 173 Result Comment: MANAGEMENT OF PATIENT CARE PER NURSING PROTOCOL Performed By: #### L501.080 #### [facility] Point of Care [address] [place] [address] BEDSIDE GLUCOSE Collected: 08/03/2018 Status: F Source: GISSEL 5:59 PM [facility] REPOSITORY TYPE CODE TESTS RESULT OUT OF REFERENCE UNITS RANGE LAB L501.080 70-110 mg/dL High BEDSIDE GLU 147 Result Comment: MANAGEMENT OF PATIENT CARE PER NURSING PROTOCOL Performed By: #### L501.080 #### [facility] Point of Care [address] [place] [address] BEDSIDE GLUCOSE Collected: 08/03/2018 Status: F Source: GISSEL 12:36 PM [facility] REPOSITORY TYPE CODE TESTS RESULT OUT OF REFERENCE UNITS RANGE LAB L501.080 70-110 mg/dL High BEDSIDE GLU 175 Result Comment: MANAGEMENT OF PATIENT CARE PER NURSING PROTOCOL Performed By: #### L501.080 #### [facility] Point of Care [address] [place] [address] CBC-COMPLETE BLOOD CNT Collected: 08/03/2018 Status: F Source: GISSEL NO DIFF 8:42 AM [facility] REPOSITORY TYPE CODE TESTS RESULT OUT OF [...] MPV 10.0 Performed By: #### L100.0500 #### [facility] [address] [place], [place], [id number] BASIC METABOLIC Collected: 08/03/2018 Status: F Source: GISSEL PROFILE (BMP) 8:42 AM [facility] REPOSITORY TYPE CODE TESTS RESULT OUT OF [...] Performed By: #### L500.2500, L500.3400, L506.0500 #### [facility] [address] [facility] [place], [place], [id number] LIVER PROFILE Collected: 08/03/2018 Status: F Source: FULTS 8:42 AM [facility] REPOSITORY TYPE CODE TESTS RESULT OUT OF [...] Performed By: #### L500.2500, L500.3400, L506.0500 #### [facility] [address] [facility] [place], [address] PREALBUMIN Collected: 08/03/2018 Status: F Source: GISSEL 8:42 AM [facility] REPOSITORY TYPE CODE TESTS RESULT OUT OF REFERENCE UNITS RANGE LAB L506.0500 20.0-40.0 mg/dL Low PREALBUMIN 11.1 Performed By: #### L500.2500, L500.3400, L506.0500 #### [facility] [address] [facility] [address] BEDSIDE GLUCOSE Collected: 08/03/2018 Status: F Source: GISSEL 5:34 AM [facility] REPOSITORY TYPE CODE TESTS RESULT OUT OF REFERENCE UNITS RANGE LAB L501.080 70-110 mg/dL High BEDSIDE GLU 143 Result Comment: MANAGEMENT OF PATIENT CARE PER NURSING PROTOCOL Performed By: #### L501.080 #### [facility] Point of Care [address] [place] [address] BEDSIDE GLUCOSE Collected: 08/03/2018 Status: F Source: GISSEL 12:21 AM [facility] REPOSITORY TYPE CODE TESTS RESULT OUT OF REFERENCE UNITS RANGE LAB L501.080 70-110 mg/dL High BEDSIDE GLU 140 Result Comment: MANAGEMENT OF PATIENT CARE PER NURSING PROTOCOL Performed By: #### L501.080 #### [facility] Point of Care [address] [place] [address] BEDSIDE GLUCOSE Collected: 08/02/2018 Status: F Source: GISSEL 5:59 PM [facility] REPOSITORY TYPE CODE TESTS RESULT OUT OF REFERENCE UNITS RANGE LAB L501.080 70-110 mg/dL High BEDSIDE GLU 140 Result Comment: MANAGEMENT OF PATIENT CARE PER NURSING PROTOCOL Performed By: #### L501.080 #### [facility] Point of Care [address] [place] [address] ABD INC DECUB Observed: 08/02/2018 Status: F Source: GISSEL AND/OR ERECT 12:36 PM [facility] REPOSITORY [facility] Imaging Services [address] [place] [address] Abd Inc Decub and/or Erect MR#: [id number] Acct: [id number] Name: JIMENEZ WYNN Rep #: [id number] : 1935 F 82 From: Jourdan De La Fuente MD PCP: Clement Bueno MD Status: ADM IN Study: Abd Inc Decub and/or Erect Date of Exam: 08/02/18 Exam# [id number] Ordering Dr: Aurora Young MD STUDY: X-RAY [...] La Fuente MD at 15:55 EDT Tel [phone], Service support , CC: Clement Bueno MD; Aurora Young MD Crimper Assembler: Signed BEDSIDE GLUCOSE Collected: 08/02/2018 Status: F Source: FULTS 12:11 PM [facility] REPOSITORY TYPE CODE TESTS RESULT OUT OF REFERENCE UNITS RANGE LAB L501.080 70-110 mg/dL High BEDSIDE GLU 112 Result Comment: MANAGEMENT OF PATIENT CARE PER NURSING PROTOCOL Performed By: #### L501.080 #### [facility] Point of Care [facility] [place], [place] [address] BASIC METABOLIC Collected: 08/02/2018 Status: F Source: GISSEL PROFILE (BMP) 6:32 AM [facility] REPOSITORY TYPE CODE TESTS RESULT OUT OF [...] 10 Performed By: #### L500.2500, L501.5200 #### [facility] [address] [place], [place], [address] MAGNESIUM Collected: 08/02/2018 Status: F Source: GISSEL 6:32 AM [facility] REPOSITORY TYPE CODE TESTS RESULT OUT OF RANGE REFERENCE UNITS LAB L501.5200 1.6-2.6 mg/dL Normal MG 2.2 Performed By: #### L500.2500, L501.5200 #### [facility] [address] [place], [address] PHOSPHORUS Collected: 08/02/2018 Status: F Source: GISSEL 6:32 AM [facility] REPOSITORY TYPE CODE TESTS RESULT OUT OF RANGE REFERENCE UNITS LAB L501.2300 2.5-4.9 mg/dL Normal PHOS 3.7 Performed By: #### L501.2300 #### [facility] [address] [place], [place], [address] CBC W/DIFF, AUTOMATED Collected: 08/02/2018 Status: C Source: FULTS 6:32 AM [facility] REPOSITORY Order Comment: REDRAW. PREVIOUS SPECIMEN REJECTED [...] necessary. Jeffrey Ryan M.D. 08/03/18 AMENDED REPORT 08/03/1825 PATH REV previously reported as: March Performed By: #### L100.0100 #### [facility] [address] [facility] [address] BEDSIDE GLUCOSE Collected: 08/02/2018 Status: F Source: GISSEL 5:33 AM [facility] REPOSITORY TYPE CODE TESTS RESULT OUT OF REFERENCE UNITS RANGE LAB L501.080 70-110 mg/dL High BEDSIDE GLU 113 Result Comment: MANAGEMENT OF PATIENT CARE PER NURSING PROTOCOL Performed By: #### L501.080 #### [facility] Laboratory Point of Care [address] [place] [address] BEDSIDE GLUCOSE Collected: 08/01/2018 Status: F Source: GISSEL 11:56 PM [facility] REPOSITORY TYPE CODE TESTS RESULT OUT OF RANGE REFERENCE UNITS LAB L501.080 70-110 mg/dL Normal BEDSIDE GLU 94 Result Comment: MANAGEMENT OF PATIENT CARE PER NURSING PROTOCOL Performed By: #### L501.080 #### [facility] Laboratory Point of Care [address] [place] [address] BEDSIDE GLUCOSE Collected: 08/01/2018 Status: F Source: GISSEL 6:10 PM [facility] REPOSITORY TYPE CODE TESTS RESULT OUT OF REFERENCE UNITS RANGE LAB L501.080 70-110 mg/dL High BEDSIDE GLU 195 Result Comment: MANAGEMENT OF PATIENT CARE PER NURSING PROTOCOL Performed By: #### L501.080 #### [facility] Laboratory Point of Care [address] [place] [address] TYPE AND SCREEN Collected: 08/01/2018 Status: F Source: GISSEL 12:16 PM [facility] REPOSITORY Order Comment: CMV NEG? N Number [...] NEGATIVE Screen Performed By: #### B101.7450 #### [facility] [address] [place], [address] RC Collected: 08/01/2018 Status: F Source: FULTS 12:16 PM [facility] REPOSITORY TYPE CODE TESTS RESULT OUT OF REFERENCE UNITS RANGE LAB U100.0000 [id number] TRANSFUSED PRODUCT: T AND S with Crossmatch, Red Cells COUNT: 1 Performed By: #### U100.0000 #### Non-[facility] - refer to report for specific site BEDSIDE GLUCOSE Collected: 08/01/2018 Status: F Source: FULTS 11:28 AM [facility] REPOSITORY TYPE CODE TESTS RESULT OUT OF RANGE REFERENCE UNITS LAB L501.080 70-110 mg/dL Normal BEDSIDE GLU 110 Result Comment: MANAGEMENT OF PATIENT CARE PER NURSING PROTOCOL Performed By: #### L501.080 #### [facility] Laboratory Point of Care [address] [place] [address] BEDSIDE GLUCOSE Collected: 08/01/2018 Status: F Source: FULTS 7:58 AM [facility] REPOSITORY TYPE CODE TESTS RESULT OUT OF RANGE REFERENCE UNITS LAB L501.080 70-110 mg/dL Normal BEDSIDE GLU 96 Result Comment: MANAGEMENT OF PATIENT CARE PER NURSING PROTOCOL Performed By: #### L501.080 #### [facility] Point of Care [address] [place] [address] BEDSIDE GLUCOSE Collected: 08/01/2018 Status: F Source: FULTS 5:26 AM [facility] REPOSITORY TYPE CODE TESTS RESULT OUT OF RANGE REFERENCE UNITS LAB L501.080 70-110 mg/dL Normal BEDSIDE GLU 89 Result Comment: MANAGEMENT OF PATIENT CARE PER NURSING PROTOCOL Performed By: #### L501.080 #### [facility] Point of Care [address] [place] [address] CBC W/DIFF, AUTOMATED Collected: 08/01/2018 Status: F Source: GISSEL 5:10 AM [facility] REPOSITORY Order Comment: SPECIMEN OBTAINED FROM LINE [...] Lymph 1.34 Performed By: #### L100.0100 #### [facility] [address], [address] BASIC METABOLIC Collected: 08/01/2018 Status: F Source: GISSEL PROFILE (BMP) 5:10 AM [facility] REPOSITORY Order Comment: SPECIMEN OBTAINED FROM LINE [...] GAP 8 Performed By: #### L500.2500 #### [facility] [address] [place] [address], [address] BEDSIDE GLUCOSE Collected: 08/01/2018 Status: F Source: GISSEL 12:00 AM [facility] REPOSITORY TYPE CODE TESTS RESULT OUT OF RANGE REFERENCE UNITS LAB L501.080 70-110 mg/dL Normal BEDSIDE GLU 105 Result Comment: MANAGEMENT OF PATIENT CARE PER NURSING PROTOCOL Performed By: #### L501.080 #### [facility] Point of Care [address] [facility] [place], [place] [address] BEDSIDE GLUCOSE Collected: 07/31/2018 Status: F Source: GISSEL 6:02 PM [facility] REPOSITORY TYPE CODE TESTS RESULT OUT OF REFERENCE UNITS RANGE LAB L501.080 70-110 mg/dL High BEDSIDE GLU 128 Result Comment: MANAGEMENT OF PATIENT CARE PER NURSING PROTOCOL Performed By: #### L501.080 #### [facility] Laboratory Point of Care [address] [place] [address] BEDSIDE GLUCOSE Collected: 07/31/2018 Status: F Source: GISSEL 11:42 AM [facility] REPOSITORY TYPE CODE TESTS RESULT OUT OF REFERENCE UNITS RANGE LAB L501.080 70-110 mg/dL High BEDSIDE GLU 118 Result Comment: MANAGEMENT OF PATIENT CARE PER NURSING PROTOCOL Performed By: #### L501.080 #### [facility] Point of Care [address] [place] [address] BEDSIDE GLUCOSE Collected: 07/31/2018 Status: F Source: GISSEL 5:03 AM [facility] REPOSITORY TYPE CODE TESTS RESULT OUT OF REFERENCE UNITS RANGE LAB L501.080 70-110 mg/dL High BEDSIDE GLU 163 Result Comment: MANAGEMENT OF PATIENT CARE PER NURSING PROTOCOL Performed By: #### L501.080 #### [facility] Point of Care [address] [place] [address] BASIC METABOLIC Collected: 07/31/2018 Status: F Source: GISSEL PROFILE (BMP) 4:55 AM [facility] REPOSITORY TYPE CODE TESTS RESULT OUT OF [...] 10 Performed By: #### L500.2500, L501.5200 #### [facility] [address] [facility] [place], [place], [address] MAGNESIUM Collected: 07/31/2018 Status: F Source: FULTS 4:55 AM [facility] REPOSITORY TYPE CODE TESTS RESULT OUT OF RANGE REFERENCE UNITS LAB L501.5200 1.6-2.6 mg/dL Normal MG 2.1 Performed By: #### L500.2500, L501.5200 #### [facility] [address] [place], [place], [address] CBC-COMPLETE BLOOD CNT Collected: 07/31/2018 Status: F Source: FULTS NO DIFF 4:55 AM [facility] REPOSITORY TYPE CODE TESTS RESULT OUT OF [...] MPV 11.1 Performed By: #### L100.0500 #### [facility] [address] [facility] [place], [place], [address] BEDSIDE GLUCOSE Collected: 07/30/2018 Status: F Source: GISSEL 11:15 PM [facility] REPOSITORY TYPE CODE TESTS RESULT OUT OF REFERENCE UNITS RANGE LAB L501.080 70-110 mg/dL High BEDSIDE GLU 229 Result Comment: MANAGEMENT OF PATIENT CARE PER NURSING PROTOCOL Performed By: #### L501.080 #### [place] [facility] Laboratory Point of Care [address] [place], [place] [address] BEDSIDE GLUCOSE Collected: 07/30/2018 Status: F Source: GISSEL 5:38 PM [facility] REPOSITORY TYPE CODE TESTS RESULT OUT OF REFERENCE UNITS RANGE LAB L501.080 70-110 mg/dL High BEDSIDE GLU 258 Result Comment: MANAGEMENT OF PATIENT CARE PER NURSING PROTOCOL Performed By: #### L501.080 #### [facility] Point of Care [address] [place], [place] [address] BEDSIDE GLUCOSE Collected: 07/30/2018 Status: F Source: GISSEL 11:56 AM [facility] REPOSITORY TYPE CODE TESTS RESULT OUT OF REFERENCE UNITS RANGE LAB L501.080 70-110 mg/dL High BEDSIDE GLU 289 Result Comment: MANAGEMENT OF PATIENT CARE PER NURSING PROTOCOL Performed By: #### L501.080 #### [facility] Point of Care [address] [place] [address] CBC W/DIFF, AUTOMATED Collected: 07/30/2018 Status: F Source: GISSEL 6:00 AM [facility] REPOSITORY TYPE CODE TESTS RESULT OUT OF [...] Lymph 1.24 Performed By: #### L100.0100 #### [facility] [address] [place], [place], [address] BASIC METABOLIC Collected: 07/30/2018 Status: F Source: FULTS PROFILE (BMP) 6:00 AM [facility] REPOSITORY TYPE CODE TESTS RESULT OUT OF [...] Performed By: #### L500.2500, L501.2300, L501.5200 #### [facility] [address] [place], [address] PHOSPHORUS Collected: 07/30/2018 Status: F Source: FULTS 6:00 AM [facility] REPOSITORY TYPE CODE TESTS RESULT OUT OF RANGE REFERENCE UNITS LAB L501.2300 2.5-4.9 mg/dL Low PHOS 1.9 Performed By: #### L500.2500, L501.2300, L501.5200 #### [facility] [address] [place], [place], [id number] MAGNESIUM Collected: 07/30/2018 Status: F Source: FULTS 6:00 AM [facility] REPOSITORY TYPE CODE TESTS RESULT OUT OF RANGE REFERENCE UNITS LAB L501.5200 1.6-2.6 mg/dL Low MG 1.4 Performed By: #### L500.2500, L501.2300, L501.5200 #### [facility] [address] [place], [place], [address] BEDSIDE GLUCOSE Collected: 07/30/2018 Status: F Source: FULTS 5:37 AM [facility] REPOSITORY TYPE CODE TESTS RESULT OUT OF REFERENCE UNITS RANGE LAB L501.080 70-110 mg/dL High BEDSIDE GLU 260 Result Comment: MANAGEMENT OF PATIENT CARE PER NURSING PROTOCOL Performed By: #### L501.080 #### [facility] Point of Care [address] [place] [address] BEDSIDE GLUCOSE Collected: 07/30/2018 Status: F Source: GISSEL 12:25 AM [facility] REPOSITORY TYPE CODE TESTS RESULT OUT OF REFERENCE UNITS RANGE LAB L501.080 70-110 mg/dL High BEDSIDE GLU 278 Result Comment: MANAGEMENT OF PATIENT CARE PER NURSING PROTOCOL Performed By: #### L501.080 #### [facility] Laboratory Point of Care [address] [place] [address] BEDSIDE GLUCOSE Collected: 07/29/2018 Status: F Source: GISSEL 6:24 PM [facility] REPOSITORY TYPE CODE TESTS RESULT OUT OF REFERENCE UNITS RANGE LAB L501.080 70-110 mg/dL High BEDSIDE GLU 198 Result Comment: MANAGEMENT OF PATIENT CARE PER NURSING PROTOCOL Performed By: #### L501.080 #### [facility] Laboratory Point of Care [address] [place] [address] BEDSIDE GLUCOSE Collected: 07/29/2018 Status: F Source: GISSEL 12:07 PM [facility] REPOSITORY TYPE CODE TESTS RESULT OUT OF REFERENCE UNITS RANGE LAB L501.080 70-110 mg/dL High BEDSIDE GLU 153 Result Comment: MANAGEMENT OF PATIENT CARE PER NURSING PROTOCOL Performed By: #### L501.080 #### [facility] Laboratory Point of Care [address] [place] [address] ABDOMEN SINGLE VIEW Observed: 07/29/2018 Status: F Source: GISSEL (PORTABLE) 8:42 AM [facility] REPOSITORY [facility] Imaging Services [address] [place] [address] Abdomen Single View (Portable) MR#: [id number] Acct: [id number] Name: JIMENEZ WYNN Rep #: [id number] : 1935 F 82 From: Jourdan De La Fuente MD PCP: Clement Bueno MD Status: ADM IN Study: Abdomen Single View (Portable) Date of Exam: 07/29/18 Exam# [id number] Ordering Dr: Aurora Young MD STUDY: X-RAY [...] La Fuente MD at 9:13 EDT Tel [phone], Service support , CC: Clement Bueno MD; Aurora Young MD Crimper Assembler: Signed BEDSIDE GLUCOSE Collected: 07/29/2018 Status: F Source: FULTS 6:13 AM [facility] REPOSITORY TYPE CODE TESTS RESULT OUT OF REFERENCE UNITS RANGE LAB L501.080 70-110 mg/dL High BEDSIDE GLU 145 Result Comment: MANAGEMENT OF PATIENT CARE PER NURSING PROTOCOL Performed By: #### L501.080 #### [facility] Point of [place] [address] BASIC METABOLIC Collected: 07/29/2018 Status: F Source: FULTS PROFILE (BMP) 5:10 AM [facility] REPOSITORY Order Comment: SPECIMEN OBTAINED FROM LINE [...] GAP 8 Performed By: #### L500.2500 #### [facility] [address] [place], [address] CBC W/DIFF, AUTOMATED Collected: 07/29/2018 Status: F Source: FULTS 5:10 AM [facility] REPOSITORY Order Comment: SPECIMEN OBTAINED FROM LINE [...] GRAN 1+ Performed By: #### L100.0100 #### [facility] [address] [place], [place], [address] BEDSIDE GLUCOSE Collected: 07/28/2018 Status: F Source: GISSEL 11:51 PM [facility] REPOSITORY TYPE CODE TESTS RESULT OUT OF RANGE REFERENCE UNITS LAB L501.080 70-110 mg/dL Normal BEDSIDE GLU 106 Result Comment: MANAGEMENT OF PATIENT CARE PER NURSING PROTOCOL Performed By: #### L501.080 #### [facility] Point of Care [address] [place] [address] BEDSIDE GLUCOSE Collected: 07/28/2018 Status: F Source: GISSEL 5:26 PM [facility] REPOSITORY TYPE CODE TESTS RESULT OUT OF RANGE REFERENCE UNITS LAB L501.080 70-110 mg/dL Normal BEDSIDE GLU 109 Result Comment: MANAGEMENT OF PATIENT CARE PER NURSING PROTOCOL Performed By: #### L501.080 #### [facility] Point of Care [address] [place] [address] BEDSIDE GLUCOSE Collected: 07/28/2018 Status: F Source: GISSEL 12:19 PM [facility] REPOSITORY TYPE CODE TESTS RESULT OUT OF RANGE REFERENCE UNITS LAB L501.080 70-110 mg/dL Normal BEDSIDE GLU 107 Result Comment: MANAGEMENT OF PATIENT CARE PER NURSING PROTOCOL Performed By: #### L501.080 #### [facility] Point of Care [address] [place] [address] CONSULTATION Observed: 07/28/2018 Status: F Source: FULTS 12:08 PM [facility] REPOSITORY [facility] Medical Records Department [address] [place] [place] [address] Consultation 07/28/18 1157 MR#: [id number] Acct: [id number] Name: JIMENEZ WYNN Rep #: [id number] : 1935 82 From: Lokesh Pulliam MD PCP: Clement Bueno MD Status: ADM IN Y Location: [place] [address]-1 Problem List (1) Large bowel perforation Status: [...] (valve) insufficiency (Chronic) 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 [...] Source: GISSEL CULTURE, BLOOD (WB) 12:00 PM [facility] REPOSITORY UTO X 6 3 PHLEBS TRIED Has pt arrived? Y BC No growth in 5 days. Performed By: #### M200.1000 #### [facility] [address] [facility] [place], [address] 12 LEAD ELECTROCARDIOGRAM Observed: 07/28/2018 Status: F Source: GISSEL 9:39 AM [facility] REPOSITORY [facility] Cardiovascular Services [address] [place] [address] 12 Lead EKG 07/21/181921 MR#: [id number] Acct: [id number] Name: JIMENEZ WYNN Rep #: [id number] : 1935 82 From: Markus Cueto MD Attending Dr: Arnaud Lewis MD Status: ADM IN Ordering Dr: Eriberto Huang MD Date: 07/21/18 Location: [facility] Sex: F C Admitted: 07/20/18 Test [...] occurred Confirmed by MARKUS CUETO MD ([id number]), photo editor SADIQ BUENO ([id number]) on 07/28/2018 9:38:36 AM Referred By: Confirmed By:MARKUS CUETO MD 07/28/18 0938 Date Markus Cueto MD CC: Arnaud Lewis MD; Clement Bueno MD; Eriberto Huang MD Signed 12 LEAD ELECTROCARDIOGRAM Observed: 07/28/2018 Status: F Source: GISSEL 9:38 AM [facility] REPOSITORY [facility] Cardiovascular Services [address] [place] [address] 12 Lead EKG 07/22/18 0328 MR#: [id number] Acct: [id number] Name: JIMENEZ WYNN Rep #: [id number] : 1935 82 From: Markus Cueto MD Attending Dr: Arnaud Lewis MD Status: ADM IN Ordering Dr: Adrien Ford MD Date: 07/22/18 Location: [facility] Sex: F C Admitted: 07/20/18 Test [...] UNCONFIRMED Confirmed by MARKUS CUETO MD ([id number]), photo editor SADIQ BUENO (56) on 07/28/2018 9:37:46 AM Referred By: AILEEN Confirmed By:MARKUS CUETO MD 07/28/18 0937 Date Markus Cueto MD CC: Arnaud Lewis MD; Clement Bueno MD; Adrien Ford MD Signed 12 LEAD ELECTROCARDIOGRAM Observed: 07/28/2018 Status: F Source: GISSEL 9:38 AM [facility] Cardiovascular Services [address] [place] [address] 12 Lead EKG 07/22/188 MR#: [id number] Acct: [id number] Name: LELAND WYNNSHIN Rep #: [id number] : 1935 82 From: Markus Cueto MD Attending Dr: Arnaud Lewis MD Status: ADM IN Ordering Dr: Adrien Ford MD Date: 07/22/18 Location: [facility] Sex: F C Admitted: 07/20/18 Test [...] ECG No previous ECGs available Confirmed by NORY MERCER, MARKUS ([id number]), photo editor SADIQ BUENO (56) on 07/28/2018 9:38:06 AM Referred By: AILEEN Confirmed By:MARKUS CUETO MD 07/28/18 0938 Date Markus Cueto MD CC: Arnaud Lewis MD; Clement Bueno MD; Adrien Ford MD Signed 12 LEAD ELECTROCARDIOGRAM Observed: 07/28/2018 Status: F Source: GISSEL 9:38 AM [facility] REPOSITORY [facility] Cardiovascular Services [address] [place] [address] 12 Lead EKG 07/21/181925 MR#: [id number] Acct: [id number] Name: JIMENEZ WYNN Rep #: [id number] : 1935 82 From: Markus Cueto MD Attending Dr: Arnaud Lewis MD Status: ADM IN Ordering Dr: Eriberto Huang MD Date: 07/21/18 Location: U Sex: F C Admitted: 07/20/18 [...] UNCONFIRMED Confirmed by MARKUS CUETO MD ([id number]), photo editor SADIQ BUENO (56) on 07/28/2018 9:38:22 AM Referred By: Confirmed By:MARKUS CUETO MD 07/28/18 0938 Date Markus Cueto MD CC: Arnaud Lewis MD; Clement Bueno MD; Eriberto Huang MD Signed 12 LEAD ELECTROCARDIOGRAM Observed: 07/28/2018 Status: F Source: FULTS 9:37 AM [facility] REPOSITORY [facility] Cardiovascular Services [address] [place] [address] 12 Lead EKG 07/22/18 0349 MR#: [id number] Acct: [id number] Name: JIMENEZ WYNN Rep #: [id number] : 1935 82 From: Markus Cueto MD [...] UNCONFIRMED Confirmed by MARKUS CUETO MD ([id number]), photo editor SADIQ BUENO (56) on 07/28/2018 9:36:49 AM Referred By: AILEEN Confirmed By:MARKUS CUETO MD 07/28/18 0936 Date Markus Cueto MD CC: Arnaud Lewis MD; Clement Bueno MD; Adrien Ford MD Signed 12 LEAD ELECTROCARDIOGRAM Observed: 07/28/2018 Status: F Source: FULTS 9:37 AM [facility] REPOSITORY [facility] Cardiovascular Services [address] [place] [address] 12 Lead EKG 07/22/18 0329 MR#: [id number] Acct: [id number] Name: JIMENEZ WYNN Rep #: [id number] : 1935 82 From: Markus Cueto MD Attending Dr: Arnaud Lewis MD Status: ADM IN Ordering Dr: Adrien Ford MD Date: 07/22/18 Location: [facility] Sex: F C Admitted: 07/20/18 Test [...] UNCONFIRMED Confirmed by MARKUS CUETO MD ([id number]), photo editor SADIQ BUENO (56) on 07/28/2018 9:37:23 AM Referred By: AILEEN Confirmed By:MARKUS CUETO MD 07/28/18 0937 Date Markus Cueto MD CC: Arnaud Lewis MD; Clement Bueno MD; Adrien Ford MD Signed ABDOMEN/PEL W ORAL CONT Observed: 07/28/2018 Status: F Source: GISSEL ONLY 7:36 AM [facility] REPOSITORY [facility] Imaging Services [address] [place] [address] Abdomen/Pel W ORAL Cont Only MR#: [id number] Acct: [id number] Name: JIMENEZ WYNN Rep #: [id number] : 1935 F 82 From: Jourdan De La Fuente MD PCP: Clement Bueno MD Status: ADM IN Study: Abdomen/Pel W ORAL Cont Only Date of Exam: 07/28/18 Exam# [id number] Ordering Dr: Aurora Young MD STUDY: CT [...] La Fuente MD at 13:30 EDT Tel [phone], Service support , CC: Clement Bueno MD; Aurora Young MD Crimper Assembler: Signed BEDSIDE GLUCOSE Collected: 07/28/2018 Status: F Source: GISSEL 6:12 AM [facility] REPOSITORY TYPE CODE TESTS RESULT OUT OF REFERENCE UNITS RANGE LAB L501.080 70-110 mg/dL High BEDSIDE GLU 111 Result Comment: MANAGEMENT OF PATIENT CARE PER NURSING PROTOCOL Performed By: #### L501.080 #### [facility] Laboratory Point of Care [facility] [place] [address] BASIC METABOLIC Collected: 07/28/2018 Status: F Source: GISSEL PROFILE (BMP) 4:25 AM [facility] REPOSITORY TYPE CODE TESTS RESULT OUT OF [...] GAP 7 Performed By: #### L500.2500 #### [facility] [address] [place], [address] CBC W/DIFF, AUTOMATED Collected: 07/28/2018 Status: F Source: FULTS 4:25 AM [facility] REPOSITORY TYPE CODE TESTS RESULT OUT OF [...] COMMENT SCANNED Performed By: #### L100.0100 #### [facility] [address] [facility] [address] BEDSIDE GLUCOSE Collected: 07/27/2018 Status: F Source: GISSEL 11:49 PM [facility] REPOSITORY TYPE CODE TESTS RESULT OUT OF REFERENCE UNITS RANGE LAB L501.080 70-110 mg/dL High BEDSIDE GLU 229 Result Comment: MANAGEMENT OF PATIENT CARE PER NURSING PROTOCOL Performed By: #### L501.080 #### [facility] Laboratory Point of Care [address] [place] [address] BEDSIDE GLUCOSE Collected: 07/27/2018 Status: F Source: GISSEL 5:37 PM [facility] REPOSITORY TYPE CODE TESTS RESULT OUT OF REFERENCE UNITS RANGE LAB L501.080 70-110 mg/dL High BEDSIDE GLU 330 Result Comment: MANAGEMENT OF PATIENT CARE PER NURSING PROTOCOL Performed By: #### L501.080 #### [facility] Laboratory Point of Care [address] [place] [address] URINALYSIS, COMPLETE Collected: 07/27/2018 Status: F Source: GISSEL 11:30 AM [facility] REPOSITORY Order Comment: How was Urine Obtained? [...] 0-5 SEEN Performed By: #### L400.0001 #### [facility] [address] [place], [address] BEDSIDE GLUCOSE Collected: 07/27/2018 Status: F Source: FULTS 9:55 AM [facility] REPOSITORY TYPE CODE TESTS RESULT OUT OF REFERENCE UNITS RANGE LAB L501.080 70-110 mg/dL High BEDSIDE GLU 140 Result Comment: MANAGEMENT OF PATIENT CARE PER NURSING PROTOCOL Performed By: #### L501.080 #### [facility] Laboratory Point of Care [address] [place] [address] CHEST 1 VIEW Observed: 07/27/2018 Status: F Source: FULTS 9:11 AM [facility] REPOSITORY [facility] Imaging Services [address] [place] [address] Chest 1 View MR#: [id number] Acct: [id number] Name: JIMENEZ WYNN Rep #: [id number] : 1935 F 82 From: Jourdan De aL Fuente MD PCP: Clement Bueno MD Status: ADM IN Study: Chest 1 View Date of Exam: 07/27/18 Exam# [id number] Ordering Dr: Aurora Young MD STUDY: X-RAY [...] La Fuente MD at 13:11 EDT Tel [phone], Service support , CC: Clement Bueno MD; Aurora Young MD Crimper Assembler: Signed CBC W/DIFF, AUTOMATED Collected: 07/27/2018 Status: F Source: GISSEL 8:20 AM [facility] REPOSITORY TYPE CODE TESTS RESULT OUT OF [...] LYMPHS. Performed By: #### L100.0100, L100.4425 #### [facility] [address] [facility] [address] [facility] [address] [place], [place], [address] NRBC PANEL Collected: 07/27/2018 Status: F Source: FULTS 8:20 AM [facility] REPOSITORY TYPE CODE TESTS RESULT OUT OF RANGE REFERENCE UNITS LAB L100.4450 0-5 % Normal NRBC, FLAGGED 0.1 LAB L100.4455 0-5 10 3/uL Normal NRBC # 0.02 Performed By: #### L100.0100, L100.4425 #### [facility] [address] [place], [address] BASIC METABOLIC Collected: 07/27/2018 Status: F Source: GISSEL PROFILE (BMP) 6:35 AM [facility] REPOSITORY Order Comment: SPECIMEN OBTAINED FROM LINE [...] GAP 9 Performed By: #### L500.2500 #### [facility] [address] [place], [address] BEDSIDE GLUCOSE Collected: 07/27/2018 Status: F Source: GISSEL 6:00 AM [facility] REPOSITORY TYPE CODE TESTS RESULT OUT OF REFERENCE UNITS RANGE LAB L501.080 70-110 mg/dL High BEDSIDE GLU 166 Result Comment: MANAGEMENT OF PATIENT CARE PER NURSING PROTOCOL Performed By: #### L501.080 #### [facility] Point of Care [address] [place] [address] BEDSIDE GLUCOSE Collected: 07/27/2018 Status: F Source: GISSEL 2:20 AM [facility] REPOSITORY TYPE CODE TESTS RESULT OUT OF REFERENCE UNITS RANGE LAB L501.080 70-110 mg/dL High BEDSIDE GLU 282 Result Comment: MANAGEMENT OF PATIENT CARE PER NURSING PROTOCOL Performed By: #### L501.080 #### [facility] Laboratory Point of Care [address] [place] [address] BEDSIDE GLUCOSE Collected: 07/26/2018 Status: F Source: GISSEL 9:42 PM [facility] REPOSITORY TYPE CODE TESTS RESULT OUT OF REFERENCE UNITS RANGE LAB L501.080 70-110 mg/dL High BEDSIDE GLU 161 Result Comment: MANAGEMENT OF PATIENT CARE PER NURSING PROTOCOL Performed By: #### L501.080 #### [facility] Point of Care [address] [place] [address] BEDSIDE GLUCOSE Collected: 07/26/2018 Status: F Source: GISSEL 6:21 PM [facility] REPOSITORY TYPE CODE TESTS RESULT OUT OF REFERENCE UNITS RANGE LAB L501.080 70-110 mg/dL High BEDSIDE GLU 215 Result Comment: MANAGEMENT OF PATIENT CARE PER NURSING PROTOCOL Performed By: #### L501.080 #### [facility] Point of Care [address] [place] [address] BEDSIDE GLUCOSE Collected: 07/26/2018 Status: F Source: GISSEL 2:17 PM [facility] REPOSITORY TYPE CODE TESTS RESULT OUT OF REFERENCE UNITS RANGE LAB L501.080 70-110 mg/dL High BEDSIDE GLU 307 Result Comment: MANAGEMENT OF PATIENT CARE PER NURSING PROTOCOL Performed By: #### L501.080 #### [facility] Laboratory Point of Care [address] [place] [address] BEDSIDE GLUCOSE Collected: 07/26/2018 Status: F Source: GISSEL 10:17 AM [facility] REPOSITORY TYPE CODE TESTS RESULT OUT OF REFERENCE UNITS RANGE LAB L501.080 70-110 mg/dL High BEDSIDE GLU 282 Result Comment: MANAGEMENT OF PATIENT CARE PER NURSING PROTOCOL Performed By: #### L501.080 #### [facility] Point of Care [address] [place] [address] ABDOMEN SINGLE VIEW Observed: 07/26/2018 Status: F Source: GISSEL (PORTABLE) 7:29 AM [facility] REPOSITORY [facility] Imaging Services [address] [place] [address] Abdomen Single View (Portable) MR#: [id number] Acct: [id number] Name: JIMENEZ WYNN Rep #: [id number] : 1935 F 82 From: Jourdan De La Fuente MD PCP: Clement Bueno MD Status: ADM IN Study: Abdomen Single View (Portable) Date of Exam: 07/26/18 Exam# [id number] Ordering Dr: Aurora Young MD STUDY: X-RAY [...] La Fuente MD at 11:10 EDT Tel [phone], Service support , CC: Clement Bueno MD; Aurora Young MD Crimper Assembler: Signed BEDSIDE GLUCOSE Collected: 07/26/2018 Status: F Source: GISSEL 5:59 AM [facility] REPOSITORY TYPE CODE TESTS RESULT OUT OF REFERENCE UNITS RANGE LAB L501.080 70-110 mg/dL High BEDSIDE GLU 332 Result Comment: MANAGEMENT OF PATIENT CARE PER NURSING PROTOCOL Performed By: #### L501.080 #### [facility] Point of Care [address] [place], [place] [address] BASIC METABOLIC Collected: 07/26/2018 Status: F Source: GISSEL PROFILE (BMP) 4:30 AM [facility] REPOSITORY TYPE CODE TESTS RESULT OUT OF [...] Performed By: #### L500.2500, L501.2300, L501.5200 #### [facility] [address] [place], [place], [address] PHOSPHORUS Collected: 07/26/2018 Status: F Source: GISSEL 4:30 AM [facility] REPOSITORY TYPE CODE TESTS RESULT OUT OF RANGE REFERENCE UNITS LAB L501.2300 2.5-4.9 mg/dL Normal PHOS 3.4 Performed By: #### L500.2500, L501.2300, L501.5200 #### [facility] [address] [place], [address] MAGNESIUM Collected: 07/26/2018 Status: F Source: GISSEL 4:30 AM [facility] REPOSITORY TYPE CODE TESTS RESULT OUT OF RANGE REFERENCE UNITS LAB L501.5200 1.6-2.6 mg/dL Normal MG 2.0 Performed By: #### L500.2500, L501.2300, L501.5200 #### [facility] [address] [place], [address] BEDSIDE GLUCOSE Collected: 07/26/2018 Status: F Source: GISSEL 2:00 AM [facility] REPOSITORY TYPE CODE TESTS RESULT OUT OF REFERENCE UNITS RANGE LAB L501.080 70-110 mg/dL High BEDSIDE GLU 302 Result Comment: MANAGEMENT OF PATIENT CARE PER NURSING PROTOCOL Performed By: #### L501.080 #### [facility] Point of Care [address] [place] [address] BEDSIDE GLUCOSE Collected: 07/25/2018 Status: F Source: GISSEL 9:12 PM [facility] REPOSITORY TYPE CODE TESTS RESULT OUT OF REFERENCE UNITS RANGE LAB L501.080 70-110 mg/dL High BEDSIDE GLU 263 Result Comment: MANAGEMENT OF PATIENT CARE PER NURSING PROTOCOL Performed By: #### L501.080 #### [facility] Point of Care [address] [place] [address] BEDSIDE GLUCOSE Collected: 07/25/2018 Status: F Source: GISSEL 5:55 PM [facility] REPOSITORY TYPE CODE TESTS RESULT OUT OF REFERENCE UNITS RANGE LAB L501.080 70-110 mg/dL High BEDSIDE GLU 314 Result Comment: MANAGEMENT OF PATIENT CARE PER NURSING PROTOCOL Performed By: #### L501.080 #### [facility] Point of Care [address] [place] [address] BASIC METABOLIC Collected: 07/25/2018 Status: F Source: GISSEL PROFILE (BMP) 5:05 PM [facility] REPOSITORY TYPE CODE TESTS RESULT OUT OF [...] GAP 7 Performed By: #### L500.2500 #### [facility] [address] [place], [place], [address] BEDSIDE GLUCOSE Collected: 07/25/2018 Status: F Source: GISSEL 2:59 PM [facility] REPOSITORY TYPE CODE TESTS RESULT OUT OF REFERENCE UNITS RANGE LAB L501.080 70-110 mg/dL High BEDSIDE GLU 379 Result Comment: MANAGEMENT OF PATIENT CARE PER NURSING PROTOCOL Performed By: #### L501.080 #### [facility] Point of Care [address] [place] [address] BEDSIDE GLUCOSE Collected: 07/25/2018 Status: F Source: GISSEL 9:44 AM [facility] REPOSITORY TYPE CODE TESTS RESULT OUT OF REFERENCE UNITS RANGE LAB L501.080 70-110 mg/dL High BEDSIDE GLU 320 Result Comment: MANAGEMENT OF PATIENT CARE PER NURSING PROTOCOL Performed By: #### L501.080 #### [facility] Point of Care [address] [place] [address] BEDSIDE GLUCOSE Collected: 07/25/2018 Status: F Source: GISSEL 7:58 AM [facility] REPOSITORY TYPE CODE TESTS RESULT OUT OF REFERENCE UNITS RANGE LAB L501.080 70-110 mg/dL High BEDSIDE GLU 329 Result Comment: MANAGEMENT OF PATIENT CARE PER NURSING PROTOCOL Performed By: #### L501.080 #### [facility] Point of Care [address] [place] [address] BEDSIDE GLUCOSE Collected: 07/25/2018 Status: F Source: GISSEL 6:11 AM [facility] REPOSITORY TYPE CODE TESTS RESULT OUT OF REFERENCE UNITS RANGE LAB L501.080 70-110 mg/dL High BEDSIDE GLU 336 Result Comment: MANAGEMENT OF PATIENT CARE PER NURSING PROTOCOL Performed By: #### L501.080 #### [facility] Point of Care [address] [place] [address] BASIC METABOLIC Collected: 07/25/2018 Status: F Source: GISSEL PROFILE (BMP) 4:23 AM [facility] REPOSITORY TYPE CODE TESTS RESULT OUT OF [...] at: 05:05:03 07/25/2018 by: DOUGLAS BRADFORD to [facility] LAB L501.5900 98-107 mmol/L High CL 108 LAB L501.6100 21.0-32.0 mmol/L Normal CO2 28.0 LAB L501.6200 5-15 Normal 9 GAP Performed By: #### L500.2500 #### [facility] [address] [place], [place], [address] CBC W/DIFF, AUTOMATED Collected: 07/25/2018 Status: F Source: FULTS 4:23 AM [facility] REPOSITORY TYPE CODE TESTS RESULT OUT OF [...] Lymph 0.38 Performed By: #### L100.0100 #### [facility] [address] [place], [address] PHOSPHORUS Collected: 07/25/2018 Status: F Source: FULTS 4:23 AM [facility] REPOSITORY TYPE CODE TESTS RESULT OUT OF RANGE REFERENCE UNITS LAB L501.2300 2.5-4.9 mg/dL Normal PHOS 2.6 Performed By: #### L501.2300, L501.5200 #### [facility] [address] [place], [address] MAGNESIUM Collected: 07/25/2018 Status: F Source: FULTS 4:23 AM [facility] REPOSITORY TYPE CODE TESTS RESULT OUT OF RANGE REFERENCE UNITS LAB L501.5200 1.6-2.6 mg/dL Normal MG 1.6 Performed By: #### L501.2300, L501.5200 #### [facility] [address] [facility] [place], [address] GLUCOSE Collected: 07/25/2018 Status: F Source: FULTS 1:27 AM [facility] REPOSITORY TYPE CODE TESTS RESULT OUT OF RANGE REFERENCE UNITS LAB L501.0100 74-106 mg/dL High alert GLU 476 Result Comment: Critical Result(s) Called at: 02:28:04 07/25/2018 by: DOUGLAS Noriega Glucose result greater than or equal to 200 mg/dL suggests DIABETES MELLITUS per A.D.A. criteria. Please note revised GLUCOSE reference range effective 2017. Performed By: #### L501.0100 #### [facility] [address] [place], [address] BEDSIDE GLUCOSE Collected: 07/25/2018 Status: F Source: GISSEL 1:19 AM [facility] REPOSITORY TYPE CODE TESTS RESULT OUT OF REFERENCE UNITS RANGE LAB L501.080 70-110 mg/dL High alert BEDSIDE GLU 481 Result Comment: MANAGEMENT OF PATIENT CARE PER NURSING PROTOCOL Performed By: #### L501.080 #### [facility] Point of Care [address] [place] [address] GLUCOSE Collected: 07/24/2018 Status: F Source: GISSEL 9:43 PM [facility] REPOSITORY TYPE CODE TESTS RESULT OUT OF RANGE REFERENCE UNITS LAB L501.0100 74-106 mg/dL High alert GLU 527 Result Comment: Critical Result(s) Called Gelacio LEON at: 22:25:21 07/24/2018 by: RITESH FOOTE Glucose result greater than or equal to 200 mg/dL suggests DIABETES MELLITUS per A.D.A. criteria. Please note revised GLUCOSE reference range effective 2017. Performed By: #### L501.0100 #### [facility] [address] [place], [address] BEDSIDE GLUCOSE Collected: 07/24/2018 Status: F Source: GSISEL 9:36 PM [facility] REPOSITORY TYPE CODE TESTS RESULT OUT OF REFERENCE UNITS RANGE LAB L501.080 70-110 mg/dL High alert BEDSIDE GLU 495 Result Comment: MANAGEMENT OF PATIENT CARE PER NURSING PROTOCOL Performed By: #### L501.080 #### [facility] Point of Care [address] [place] [address] BEDSIDE GLUCOSE Collected: 07/24/2018 Status: F Source: GISSEL 6:05 PM [facility] REPOSITORY TYPE CODE TESTS RESULT OUT OF REFERENCE UNITS RANGE LAB L501.080 70-110 mg/dL High alert BEDSIDE GLU > 500 Result Comment: MANAGEMENT OF PATIENT CARE PER NURSING PROTOCOL Performed By: #### L501.080 #### [facility] Point of Care [address] [place] [address] BEDSIDE GLUCOSE Collected: 07/24/2018 Status: F Source: GISSEL 4:44 PM [facility] REPOSITORY TYPE CODE TESTS RESULT OUT OF REFERENCE UNITS RANGE LAB L501.080 70-110 mg/dL High alert BEDSIDE GLU > 500 Result Comment: MANAGEMENT OF PATIENT CARE PER NURSING PROTOCOL Performed By: #### L501.080 #### [facility] Point of Care [address] [place] [address] BEDSIDE GLUCOSE Collected: 07/24/2018 Status: F Source: GISSEL 11:50 AM [facility] REPOSITORY TYPE CODE TESTS RESULT OUT OF REFERENCE UNITS RANGE LAB L501.080 70-110 mg/dL High alert BEDSIDE GLU 454 Result Comment: MANAGEMENT OF PATIENT CARE PER NURSING PROTOCOL Performed By: #### L501.080 #### [facility] Point of Care [address] [place] [address] BEDSIDE GLUCOSE Collected: 07/24/2018 Status: F Source: GISSEL 10:29 AM [facility] REPOSITORY TYPE CODE TESTS RESULT OUT OF REFERENCE UNITS RANGE LAB L501.080 70-110 mg/dL High BEDSIDE GLU 398 Result Comment: MANAGEMENT OF PATIENT CARE PER NURSING PROTOCOL Performed By: #### L501.080 #### [facility] Point of Care [address] [place] [address] BEDSIDE GLUCOSE Collected: 07/24/2018 Status: F Source: GISSEL 5:16 AM [facility] REPOSITORY TYPE CODE TESTS RESULT OUT OF REFERENCE UNITS RANGE LAB L501.080 70-110 mg/dL High BEDSIDE GLU 438 Result Comment: Dr Orders Followed Insulin Given MANAGEMENT OF PATIENT CARE PER NURSING PROTOCOL Performed By: #### L501.080 #### [facility] Point of Care [address] [place] [address] CBC W/DIFF, AUTOMATED Collected: 07/24/2018 Status: F Source: GISSEL 4:00 AM [facility] REPOSITORY TYPE CODE TESTS RESULT OUT OF [...] LYMPHOPENIA NOTED Performed By: #### L100.0100 #### [facility] [address] [place], [place], [address] PHOSPHORUS Collected: 07/24/2018 Status: F Source: FULTS 4:00 AM [facility] REPOSITORY TYPE CODE TESTS RESULT OUT OF RANGE REFERENCE UNITS LAB L501.2300 2.5-4.9 mg/dL Normal PHOS 3.1 Performed By: #### L501.2300, L501.5200 #### [facility] [address] [place], [place], [address] MAGNESIUM Collected: 07/24/2018 Status: F Source: GISSEL 4:00 AM [facility] REPOSITORY TYPE CODE TESTS RESULT OUT OF RANGE REFERENCE UNITS LAB L501.5200 1.6-2.6 mg/dL Normal MG 1.8 Performed By: #### L501.2300, L501.5200 #### [facility] [address] [place], [address] BASIC METABOLIC Collected: 07/24/2018 Status: F Source: GISSEL PROFILE (BMP) 4:00 AM [facility] REPOSITORY TYPE CODE TESTS RESULT OUT OF [...] GAP 11 Performed By: #### L500.2500 #### [facility] [address] [place], [address] BEDSIDE GLUCOSE Collected: 07/23/2018 Status: F Source: GISSEL 11:46 PM [facility] REPOSITORY TYPE CODE TESTS RESULT OUT OF REFERENCE UNITS RANGE LAB L501.080 70-110 mg/dL High BEDSIDE GLU 435 Result Comment: MANAGEMENT OF PATIENT CARE PER NURSING PROTOCOL Performed By: #### L501.080 #### [facility] Point of Care [address] [place] [address] BEDSIDE GLUCOSE Collected: 07/23/2018 Status: F Source: GISSEL 11:45 PM [facility] REPOSITORY TYPE CODE TESTS RESULT OUT OF REFERENCE UNITS RANGE LAB L501.080 70-110 mg/dL High BEDSIDE GLU 440 Result Comment: MANAGEMENT OF PATIENT CARE PER NURSING PROTOCOL Performed By: #### L501.080 #### [facility] Point of Care [address] [place] [address] BEDSIDE GLUCOSE Collected: 07/23/2018 Status: F Source: GISSEL 4:18 PM [facility] REPOSITORY TYPE CODE TESTS RESULT OUT OF REFERENCE UNITS RANGE LAB L501.080 70-110 mg/dL High BEDSIDE GLU 180 Result Comment: MANAGEMENT OF PATIENT CARE PER NURSING PROTOCOL Performed By: #### L501.080 #### [facility] Point of Care [address] [place] [address] Observed: 07/23/2018 Status: F Source: GISSEL CULTURE, BLOOD (WB) 3:20 PM [facility] REPOSITORY Has pt arrived? Y BC No growth in 5 days. Performed By: #### M200.1000 #### [facility] [address] [place], [address] BEDSIDE GLUCOSE Collected: 07/23/2018 Status: F Source: GISSEL 11:57 AM [facility] REPOSITORY TYPE CODE TESTS RESULT OUT OF REFERENCE UNITS RANGE LAB L501.080 70-110 mg/dL High BEDSIDE GLU 162 Result Comment: MANAGEMENT OF PATIENT CARE PER NURSING PROTOCOL Performed By: #### L501.080 #### [facility] Point of Care [address] [place] [address] BLOOD GASES BY CPS Collected: 07/23/2018 Status: F Source: GISSEL 6:21 AM [facility] REPOSITORY TYPE CODE TESTS RESULT OUT OF [...] ISTAT 93 Performed By: #### L9000.0800 #### [facility] Point of Care [address] [place] [address] BEDSIDE GLUCOSE Collected: 07/23/2018 Status: F Source: GISSEL 5:33 AM [facility] REPOSITORY TYPE CODE TESTS RESULT OUT OF REFERENCE UNITS RANGE LAB L501.080 70-110 mg/dL High BEDSIDE GLU 130 Result Comment: MANAGEMENT OF PATIENT CARE PER NURSING PROTOCOL Performed By: #### L501.080 #### [facility] Point of Care [address] [place] [address] CBC W/DIFF, AUTOMATED Collected: 07/23/2018 Status: F Source: GISSEL 4:00 AM [facility] REPOSITORY TYPE CODE TESTS RESULT OUT OF [...] LYMPHOPENIA NOTED Performed By: #### L100.0100 #### [facility] [address] [place], [place], [address] BASIC METABOLIC Collected: 07/23/2018 Status: F Source: GISSEL PROFILE ([facility]) 4:00 AM [facility] REPOSITORY TYPE CODE TESTS RESULT OUT OF [...] Performed By: #### L500.2500, L501.2300, L501.5200 #### [facility] [address] [place], [address] PHOSPHORUS Collected: 07/23/2018 Status: F Source: GISSEL 4:00 AM [facility] REPOSITORY TYPE CODE TESTS RESULT OUT OF RANGE REFERENCE UNITS LAB L501.2300 2.5-4.9 mg/dL Normal PHOS 2.8 Performed By: #### L500.2500, L501.2300, L501.5200 #### [facility] [address] [place], [address] MAGNESIUM Collected: 07/23/2018 Status: F Source: GISSEL 4:00 AM [facility] REPOSITORY TYPE CODE TESTS RESULT OUT OF RANGE REFERENCE UNITS LAB L501.5200 1.6-2.6 mg/dL Normal MG 2.1 Performed By: #### L500.2500, L501.2300, L501.5200 #### [facility] [address] [place], [address] BEDSIDE GLUCOSE Collected: 07/22/2018 Status: F Source: FULTS 11:18 PM [facility] REPOSITORY TYPE CODE TESTS RESULT OUT OF REFERENCE UNITS RANGE LAB L501.080 70-110 mg/dL High BEDSIDE GLU 121 Result Comment: MANAGEMENT OF PATIENT CARE PER NURSING PROTOCOL Performed By: #### L501.080 #### [facility] Point of Care [address] [place] [address] CONSULTATION Observed: 07/22/2018 Status: F Source: FULTS 9:19 PM [facility] REPOSITORY [facility] Medical Records Department [address] [place] [place] [address] Consultation 07/22/182053 MR#: [id number] Acct: [id number] Name: JIMENEZ WYNN Rep #: [id number] : 1935 82 From: Charly Ross MD PCP: Clement Bueno MD Status: [facility] List (1) SVT (supraventricular tachycardia) Status: Acute (2) Takotsubo cardiomyopathy Status: Chronic (3) Atherosclerotic heart disease of [place] coronary artery without angina pectoris Status: Chronic Qualifiers: [place] vs. 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 Hypothyroidism (Chronic) COPD (chronic obstructive pulmonary disease) (Chronic) Hyperlipidemia (Chronic) Type 2 diabetes mellitus (Chronic) Surgical History: hysterectomy, total hip arthroplasty, - - Fractured femur, bilateral knee surgeries and bilateral hip surgeries Psychiatric History: No pertinent psych hx 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: No pertinent BLUEPRINT DUPLICATOR history - *Family History Maternal Family History: Family History (Last Updated 05/26/18 @ 10:48 by Sofia Allen) Mother Diabetes Brother Atrial fibrillation Brother Diabetes Sister Diabetes History Items: Diabetes Paternal Family History: Family History (Last Updated 05/26/18 @ 10:48 by Sofia Allen) Mother Diabetes Brother Atrial fibrillation Brother Diabetes Sister Diabetes History Items: Diabetes, Heart Disease Lives: [place]way Smoking Status: Never smoker Tobacco Use: Non-smoker [...] 90.2 H, Lymph % (Auto) 6.4 L, Gem % (Auto) 2.3, Eos % (Auto) 0.4, [...] TR; mild focal aortic valve calcification; trivial NM; estimated RV systolic pressure of 37 mmHg; decreased diastolic compliance Stress Test: 05/10/2018: Pharmacologic stress nuclear imaging study: Considered negative with a gated LVEF of 64% Cardiac Cath: 09/13/2012: [facility]: Left ventricle considered to demonstrate [...] Dr. Garrido. This note was generated with Sample6ation software. It may contain incorrect words, spelling, and punctuation that were not noted in checking the note before signing. 07/22/182118 <Electronically signed by Charly Ross MD> Date Charly Ross MD Cosigner Signature (if applicable): Date CC: Clement Bueno MD; Juan Jose Lemon MD; Clement Bueno MD; Charly Ross MD; Aurora Young MD Signed BEDSIDE GLUCOSE Collected: 07/22/2018 Status: F Source: GISSEL 6:10 PM [facility] REPOSITORY TYPE CODE TESTS RESULT OUT OF REFERENCE UNITS RANGE LAB L501.080 70-110 mg/dL High BEDSIDE GLU 137 Result Comment: MANAGEMENT OF PATIENT CARE PER NURSING PROTOCOL Performed By: #### L501.080 #### [facility] [place] [address] BEDSIDE GLUCOSE Collected: 07/22/2018 Status: F Source: GISSEL 12:04 PM [facility] REPOSITORY TYPE CODE TESTS RESULT OUT OF REFERENCE UNITS RANGE LAB L501.080 70-110 mg/dL High BEDSIDE GLU 148 Result Comment: MANAGEMENT OF PATIENT CARE PER NURSING PROTOCOL Performed By: #### L501.080 #### [facility] Point of Care [address] [place] [address] BEDSIDE GLUCOSE Collected: 07/22/2018 Status: F Source: GISSEL 6:30 AM [facility] REPOSITORY TYPE CODE TESTS RESULT OUT OF REFERENCE UNITS RANGE LAB L501.080 70-110 mg/dL High BEDSIDE GLU 160 Result Comment: MANAGEMENT OF PATIENT CARE PER NURSING PROTOCOL Performed By: #### L501.080 #### [facility] Laboratory Point of Care [address] [place] [address] BASIC METABOLIC Collected: 07/22/2018 Status: F Source: GISSEL PROFILE (BMP) 4:15 AM [facility] REPOSITORY TYPE CODE TESTS RESULT OUT OF [...] GAP 9 Performed By: #### L500.2500 #### [facility] [address] [place], [address] PHOSPHORUS Collected: 07/22/2018 Status: F Source: FULTS 4:15 AM [facility] REPOSITORY TYPE CODE TESTS RESULT OUT OF RANGE REFERENCE UNITS LAB L501.2300 2.5-4.9 mg/dL Normal PHOS 3.1 Performed By: #### L501.2300, L501.5200 #### [facility] [address] [place], [address] MAGNESIUM Collected: 07/22/2018 Status: F Source: FULTS 4:15 AM [facility] REPOSITORY TYPE CODE TESTS RESULT OUT OF RANGE REFERENCE UNITS LAB L501.5200 1.6-2.6 mg/dL High MG 2.7 Performed By: #### L501.2300, L501.5200 #### [facility] [address] [place], [address] CBC W/DIFF, AUTOMATED Collected: 07/22/2018 Status: F Source: FULTS 4:15 AM [facility] REPOSITORY TYPE CODE TESTS RESULT OUT OF [...] Lymph 0.45 Performed By: #### L100.0100 #### [facility] [address] [facility] [place], [place], [address] TROPONIN-I Collected: 07/22/2018 Status: F Source: GISSEL 4:15 AM [facility] REPOSITORY Order Comment: 'TROP' Serial specimen #1, #2 or #3: 1 TYPE CODE TESTS RESULT OUT OF RANGE REFERENCE UNITS LAB L501.4010 <0.045 ng/mL Normal < 0.015 TROPONIN-I Result Comment: TROPONIN-I EXPECTED VALUES <0.045 Negative 0.045 - 0.590 Consistent with Cardiac Damage > OR = 0.600 Critical Value Not every elevated troponin is indicative of OK. These values should be used with clinical judgement in examining the patient's clinical picture for diagnosis. To establish a diagnosis of OK versus myocardial injury, there must be a demonstrated rise and/or fall in the troponin values, in addition to ischemic symptoms, EKG changes, new regional wall motion abnormality, and/or angiographical evidence. PLEASE NOTE: REFERENCE RANGES EDITED 18 Performed By: #### L501.4010 #### [facility] [address] [place], [address] BLOOD GASES BY [facility] Collected: 07/22/2018 Status: F Source: GISSEL 3:56 AM [facility] REPOSITORY TYPE CODE TESTS RESULT OUT OF [...] ISTAT 90 Performed By: #### L9000.0800 #### [facility] Point of Care [address] [place] [address] BEDSIDE GLUCOSE Collected: 07/21/2018 Status: F Source: GISSEL 11:48 PM [facility] REPOSITORY TYPE CODE TESTS RESULT OUT OF REFERENCE UNITS RANGE LAB L501.080 70-110 mg/dL High BEDSIDE GLU 144 Result Comment: MANAGEMENT OF PATIENT CARE PER NURSING PROTOCOL Performed By: #### L501.080 #### [facility] Point of Care [address] [place] [address] BASIC METABOLIC Collected: 07/21/2018 Status: F Source: GISSEL PROFILE (BMP) 7:49 PM [facility] REPOSITORY TYPE CODE TESTS RESULT OUT OF [...] Performed By: #### L500.2500, L501.2300, L501.5200 #### [facility] [address] [place], [place], [address] PHOSPHORUS Collected: 07/21/2018 Status: F Source: FULTS 7:49 PM [facility] REPOSITORY TYPE CODE TESTS RESULT OUT OF RANGE REFERENCE UNITS LAB L501.2300 2.5-4.9 mg/dL Normal PHOS 3.0 Performed By: #### L500.2500, L501.2300, L501.5200 #### [facility] [address] [place], [place], [address] MAGNESIUM Collected: 07/21/2018 Status: F Source: FULTS 7:49 PM [facility] REPOSITORY TYPE CODE TESTS RESULT OUT OF RANGE REFERENCE UNITS LAB L501.5200 1.6-2.6 mg/dL Normal MG 2.6 Performed By: #### L500.2500, L501.2300, L501.5200 #### [facility] [address] [place], [address] BEDSIDE GLUCOSE Collected: 07/21/2018 Status: F Source: GISSEL 5:40 PM [facility] REPOSITORY TYPE CODE TESTS RESULT OUT OF REFERENCE UNITS RANGE LAB L501.080 70-110 mg/dL High BEDSIDE GLU 139 Result Comment: MANAGEMENT OF PATIENT CARE PER NURSING PROTOCOL Performed By: #### L501.080 #### [facility] Point of Care [address] [place] [address] 12 LEAD ELECTROCARDIOGRAM Observed: 07/21/2018 Status: F Source: GISSEL 2:12 PM [facility] REPOSITORY [facility] Cardiovascular Services [address] [place] [address] 12 Lead EKG 07/20/18 0804 MR#: [id number] Acct: [id number] Name: JIMENEZ WYNN Rep #: [id number] : 1935 82 From: Charly Ross MD [...] Abnormal ECG Confirmed by CODY MERCER, CHARLY ([id number]), photo editor SADIQ BUENO ([id number]) on 07/21/2018 2:11:47 PM Referred By: MONA Confirmed By:CHARLY ROSS MD 07/21/18 1414 Date Charly Ross MD CC: Paula Garrido MD; Clement Bueno MD; Matias Cortes MD Signed BEDSIDE GLUCOSE Collected: 07/21/2018 Status: F Source: GISSEL 11:58 AM [facility] REPOSITORY TYPE CODE TESTS RESULT OUT OF REFERENCE UNITS RANGE LAB L501.080 70-110 mg/dL High BEDSIDE GLU 143 Result Comment: MANAGEMENT OF PATIENT CARE PER NURSING PROTOCOL Performed By: #### L501.080 #### [facility] Point of Care [address] [place] [address] OPERATIVE REPORT Observed: 07/21/2018 Status: F Source: FULTS 9:55 [facility] REPOSITORY [facility] Medical Records Department [address] [place] [place] [address] Operative Report 07/20/18 1343 MR#: [id number] Acct: [id number] Name: JIMENEZ WYNN Rep #: [id number] : 1935 82 From: Aurora Young MD PCP: Clement Bueno MD Status: ADM IN Y Location: ICU [place] [address] Report of Operation Date of Procedure: 07/27/18 Pre-Operative Diagnosis: Pneumoperitoneum Post-Operative Diagnosis: Perforated descending colon near splenic flexure Surgery/Procedure Performed:: Exploratory laparotomy, mobilization of the splenic flexure, left colon resection, end colostomy knowledge analyst: Franklyn Dubois knowledge analyst: Deya Carrillo Type of Anesthesia:: General/Supplemental Anesthesiologist: [...] the cut on the [place]ovie form a [place] and then using [employer] to go down to the fascia which [...] 07/21/2018 Status: F Source: GISSEL 6:55 AM [facility] REPOSITORY Order Comment: Comments: please check after boluses given Yes/No query for Sepsis Lactate Rule Y TYPE CODE TESTS RESULT OUT OF RANGE REFERENCE UNITS LAB L503.6005 0.4-2.0 mmol/L Normal LACTIC ACID 1.9 Performed By: #### L503.6005 #### [facility] [address] [place], [place], [address] BEDSIDE GLUCOSE Collected: 07/21/2018 Status: F Source: GISSEL 5:36 AM [facility] REPOSITORY TYPE CODE TESTS RESULT OUT OF REFERENCE UNITS RANGE LAB L501.080 70-110 mg/dL High BEDSIDE GLU 169 Result Comment: MANAGEMENT OF PATIENT CARE PER NURSING PROTOCOL Performed By: #### L501.080 #### [facility] Point of Care [address] [place], [place] [address] BASIC METABOLIC Collected: 07/21/2018 Status: F Source: GISSEL PROFILE (BMP) 5:28 AM [facility] REPOSITORY TYPE CODE TESTS RESULT OUT OF [...] Performed By: #### L500.2500, L501.2300, L501.5200 #### [facility] [address] [place], [address] PHOSPHORUS Collected: 07/21/2018 Status: F Source: FULTS 5:28 AM [facility] REPOSITORY TYPE CODE TESTS RESULT OUT OF RANGE REFERENCE UNITS LAB L501.2300 2.5-4.9 mg/dL Normal PHOS 2.8 Performed By: #### L500.2500, L501.2300, L501.5200 #### [facility] [address] [place], [place], [address] MAGNESIUM Collected: 07/21/2018 Status: F Source: FULTS 5:28 AM [facility] REPOSITORY TYPE CODE TESTS RESULT OUT OF RANGE REFERENCE UNITS LAB L501.5200 1.6-2.6 mg/dL Low MG 1.2 Performed By: #### L500.2500, L501.2300, L501.5200 #### [facility] [address] [place], [place], [address] CBC W/DIFF, AUTOMATED Collected: 07/21/2018 Status: C Source: FULTS 5:28 AM [facility] REPOSITORY TYPE CODE TESTS RESULT OUT OF [...] 1352 PATH REV previously reported as: March Performed By: #### L100.0100 #### [facility] [address] [place], [address] LIVER PROFILE Collected: 07/21/2018 Status: F Source: GISSEL 5:25 AM [facility] REPOSITORY TYPE CODE TESTS RESULT OUT OF [...] BILI 0.17 Performed By: #### L500.3400 #### [facility] [address] [facility] [place], [address] CONSULTATION Observed: 07/21/2018 Status: F Source: FULTS 5:20 AM [facility] REPOSITORY [facility] Medical Records Department [address] [place] [address] Consultation 07/20/18 1504 MR#: [id number] Acct: [id number] Name: JIMENEZ WYNN Rep #: [id number] : 1935 82 From: Juan Jose Lemon MD PCP: Clement Bueno MD Status: [facility] Y [facility] (1) Large bowel perforation Status: [...] medical history listed below, who presented to [facility] on 07/20/2018 secondary to confusion and [...] (valve) insufficiency (Chronic) 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 [place] mucosa noted. Extremities: No clubbing, No cyanosis, [...] La Fuente MD at 8:36 EDT Tel [phone], Service support , Chest X-Ray 07/20/18 08:30 IMPRESSION: Free intraperitoneal air. The referring physician was notified. Electronically Signed: Jourdan De La Fuente MD at 9:15 EDT Tel [phone], Service support , Abdomen/Pelvis CT 07/20/18 08:55 IMPRESSION: Free intraperitoneal air as well as retroperitoneal air. Sigmoid diverticulosis and possible perforation of the sigmoid colon Bibasilar atelectasis. Stable left renal cyst. Electronically Signed: Jourdan De La Fuetne MD at 9:38 EDT Tel [phone], Service support , Chest X-Ray 07/20/18 10:26 IMPRESSION: The tip of the right internal jugular venous catheter is in the right atrium. Increased markings at the lung bases suggestive bibasilar atelectasis and/or scarring. Electronically Signed: Jourdan De La Fuente MD at 12:15 EDT Tel [phone], Service support , Chest X-Ray 07/20/18 14:23 IMPRESSION: All the side port tubes are in good position. Stable increased markings at the lung bases suggesting bibasilar atelectasis. Electronically Signed: Jourdan De La Fuente MD at 14:55 EDT Tel [phone], Service support , Assessment/Plan Active and Suspected [...] PM to 3:30 PM) Code Visit 9xxxx: [id number] Critical care first hour 07/21/18 0520 <Electronically signed by Juan Jose Lemon MD> Date Juan Jose Lemon MD Cosigner Signature (if applicable): Date CC: Juan Jose Lemon MD; Clement Bueno MD; Aurora Young MD Signed BEDSIDE GLUCOSE Collected: 07/21/2018 Status: F Source: FULTS 12:34 AM [facility] REPOSITORY TYPE CODE TESTS RESULT OUT OF REFERENCE UNITS RANGE LAB L501.080 70-110 mg/dL High BEDSIDE GLU 196 Result Comment: MANAGEMENT OF PATIENT CARE PER NURSING PROTOCOL Performed By: #### L501.080 #### [facility] Laboratory Point of Care [address] [facility] [place] [address] LACTIC ACID Collected: 07/20/2018 Status: F Source: FULTS 10:30 PM [facility] REPOSITORY Order Comment: Yes/No query for Sepsis Lactate Rule Y TYPE CODE TESTS RESULT OUT OF REFERENCE UNITS RANGE LAB L503.6005 0.4-2.0 mmol/L High LACTIC ACID 2.6 Result Comment: SPECIMEN NOT ON ICE Critical Result(s) Called at: 23:18:04 07/20/2018 by: Nataly AUGUSTINE Performed By: #### L503.6005 #### [facility] [address] [place], [address] BEDSIDE GLUCOSE Collected: 07/20/2018 Status: F Source: FULTS 5:44 PM [facility] REPOSITORY TYPE CODE TESTS RESULT OUT OF REFERENCE UNITS RANGE LAB L501.080 70-110 mg/dL High BEDSIDE GLU 232 Result Comment: MANAGEMENT OF PATIENT CARE PER NURSING PROTOCOL Performed By: #### L501.080 #### [facility] Laboratory Point of Care [address] [facility] [place] [address] HISTORY AND PHYSICAL Observed: 07/20/2018 Status: F Source: FULTS EXAM 5:26 PM [facility] Medical Records Department [address] [place] [address] History and Physical 07/20/18 1506 MR#: [id number] Acct: [id number] Name: JIMENEZ WYNN Rep #: [id number] : 1935 82 From: Paula Garrido MD PCP: Clement Bueno MD Status: ADM IN Y Location: ICU ICU07-1 Problem List (1) Large bowel perforation Status: Acute (2) Septic shock Status: Acute (3) DEMETRA (acute kidney injury) Status: Acute (4) Takotsubo cardiomyopathy Status: Chronic (5) Nonrheumatic tricuspid (valve) insufficiency Status: Chronic (6) Atherosclerotic heart disease of [place] coronary artery without angina pectoris Status: Chronic Qualifiers: [place] vs. 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 (Chronic) COPD (chronic obstructive pulmonary disease) (Chronic) Hyperlipidemia (Chronic) Type 2 diabetes mellitus (Chronic) Medical History: Medical History (Last Reviewed 03/01/18 @ 13:10 by Victoria Fu) Takotsubo cardiomyopathy (Chronic) I51.81 Nonrheumatic tricuspid (valve) insufficiency (Chronic) I36.1 Atherosclerotic heart disease of [place] coronary artery without angina pectoris (Chronic) I25.10 [...] surgeries Psychiatric History: No pertinent psych hx BLUEPRINT 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: No pertinent BLUEPRINT DUPLICATOR history [place]: [place] Smoking Status: Never smoker Tobacco Use: Non-smoker [...] surgery, on IV Zosyn, vancomycin added by assembler knife We will continue to monitor patient's vitals closely 2. Postop day #0 status post exploratory laparotomy, colon resection and end colostomy, on fentanyl drip 3. Acute respiratory failure, patient electively intubated for surgery, kept intubated on account of current septic shock, assembler knife consulted. 4. Type II DM, on insulin, [...] SC Code Visit Inpatient E AND M: 62310 Subs Hosp L3 07/20/18 1912 <Electronically signed by Paula Garrido MD> Date Paula Garrido MD Cosigner Signature: Date (if applicable) CC: Paula Garrido MD; Clement Bueno MD Signed BLOOD GASES BY CPS Collected: 07/20/2018 Status: F Source: [place] 3:35 PM [facility] REPOSITORY TYPE CODE TESTS RESULT OUT OF [...] ISTAT 96 Performed By: #### L9000.0800 #### [facility] Laboratory Point of Care [address] 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 Aurora Young M.D. Pager: [phone] [facility] [address] [place] [address], [address] [place] [address] Office: [phone] 07/20/18 1532 <Electronically signed by Aurora Young MD> Date Aurora Young MD Cosigner Signature (if applicable): Date CC: Juan Jose Lemon MD; Clement Bueno MD Signed CBC-COMPLETE BLOOD CNT Collected: 07/20/2018 Status: F Source: [place] NO DIFF 2:50 PM [facility] REPOSITORY TYPE CODE TESTS RESULT OUT OF [...] MPV 8.8 Performed By: #### L100.0500 #### [facility] [address] [place], [place], [address] BASIC METABOLIC Collected: 07/20/2018 Status: F Source: FULTS PROFILE (BMP) 2:50 PM [facility] REPOSITORY TYPE CODE TESTS RESULT OUT OF [...] GAP 11 Performed By: #### L500.2500 #### [facility] [address] [place], [place], [address] LACTIC ACID Collected: 07/20/2018 Status: F Source: FULTS 2:50 PM [facility] REPOSITORY TYPE CODE TESTS RESULT OUT OF REFERENCE UNITS RANGE LAB L503.6005 0.4-2.0 mmol/L High LACTIC ACID 3.3 Result Comment: Critical Result(s) Called at: 15:32:16 07/20/2018 by: Nataly BOWEN Performed By: #### L503.6005 #### [facility] [address] [place], [address] CPK TOTAL, CREATINE Collected: 07/20/2018 Status: F Source: FULTS KINASE 2:50 PM [facility] REPOSITORY Order Comment: Comments: DC when propofol is d/c'd Comments: DC when propofol is d/c'd TYPE CODE TESTS RESULT OUT OF RANGE REFERENCE UNITS LAB L501.3620 26-192 U/L Normal CPK TOTAL 63 Performed By: #### L501.3620, L501.5000 #### [facility] [address] [place], [address] TRIGLYCERIDES Collected: 07/20/2018 Status: F Source: FULTS 2:50 PM [facility] REPOSITORY Order Comment: Comments: DC when propofol [...] mg/dL Performed By: #### L501.3620, L501.5000 #### [facility] [address] [place], [address] CHEST 1 VIEW Observed: 07/20/2018 Status: F Source: [place] (PORTABLE) 2:24 PM [facility] REPOSITORY [facility] Imaging Services [address] [address] Chest 1 View (Portable) MR#: [id number] Acct: [id number] Name: JIMENEZ WYNN Rep #: [id number] : 1935 F 82 From: Jourdan De La Fuente MD PCP: Clement Bueno MD Status: ADM IN Study: Chest 1 View (Portable) Date of Exam: 07/20/18 Exam# [id number] Ordering Dr: Juan Jose Lemon MD STUDY: [...] La Fuente MD at 14:55 EDT Tel [phone], Service support , CC: Juan Jose Lemon MD; Clement Bueno MD Crimper Assembler: Signed Observed: 07/20/2018 Status: F Source: [place] CULTURE, DEEP WOUND 12:10 PM [facility] REPOSITORY Order Date: 06/03/17 Comments: Peritoneal Fluid [...] <=20 S (NF) indicates non-formulary drug at [facility]. Approval by Infectious Disease Specialist required before non-formulary drugs may be ordered and/or dispensed. Acinetobacter spp: REACTION Cefepime $ 2 S Ceftazidime *NF 4 S Ceftriaxone $ 16 I Ciprofloxacin $ <=0.25 S Gentamicin $ <=1 S Imipenem *NF 0.5 S Levofloxacin $ <=0.12 S Tobramycin $ <=1 S Trimethoprim/Sulfametho $ 80 R (NF) indicates non-formulary drug at [facility]. Approval by Infectious Disease Specialist required [...] Anaerobic cocci Performed By: #### M100.1500 #### [facility] [address] [place], [address] BEDSIDE GLUCOSE Collected: 07/20/2018 Status: F Source: FULTS 11:02 AM [facility] REPOSITORY TYPE CODE TESTS RESULT OUT OF REFERENCE UNITS RANGE LAB L501.080 70-110 mg/dL High BEDSIDE GLU 212 Result Comment: MANAGEMENT OF PATIENT CARE PER NURSING PROTOCOL Performed By: #### L501.080 #### [facility] Laboratory Point of Care [address] [place] [address] COLON (NO NEOPLASM) Observed: 07/20/2018 Status: F Source: FULTS 10:30 AM [facility] REPOSITORY Patient: JIMENEZ WYNN : 1935 (82/F) Acct Num: [id number] Phys: Paula Garrido MD Unit Num: [id number] Loc: ICU ICU07-1 Specimen: [id number] Received: 07/21/18 - 1006 Spec Type: COLON [...] will be submitted after overnight fixation. / : 07/21/18 Sections of pericolonic adipose tissue do not reveal any obviously enlarged lymph node. Correctional Cook sections are submitted in six cassettes as follows: 1 omentum, 2 proximal and distal resection margin, distal resection margin is inked black, 3 AND 4 area of perforation, 5 - open claims representative sections from the other area, 6 pericolonic adipose tissue. / : 07/22/18 TC:5 CPT: 11298 HEADER OPERATION: Exploratory laparotomy, colon resection, colostomy creation PRE-OP DIAGNOSIS: Pneumoperitoneum TISSUE SUBMITTED: Left colon, omentum, suture marking distal MICROSCOPIC DESCRIPTION Slides are reviewed. MICROSCOPIC DIAGNOSIS Left colon and omentum, colectomy: Segment of colon with area of perforation with associated hemorrhage and inflammation. Omentum with focal mild congestion. SJ:mac 07/23/18 Signed Jeffrey Ryan 07/23/18 <signature on file> Performed By: #### PCOL #### [facility] [address] [facility] [place], [address] EMERGENCY DEPARTMENT Observed: 07/20/2018 Status: F Source: FULTS SUMMARY 10:27 AM [facility] REPOSITORY [facility] Medical Records Department [address] [place] [address] Emergency Department Summary 07/20/18 0812 MR#: [id number] Acct: [id number] Name: JIMENEZ WYNN Rep #: [id number] : 1935 82 From: Matias Cortes MD [...] first attempt. Using Seldinger technique a 7.5 Prydeinig tube was placed. Portal chest x-ray was [...] 4. Hyperglycemia This note was generated with PanGenX dictation software. It may contain incorrect words, [...] your Primary Care Provider. Call [facility] ([phone]) or report to the closest Emergency Room. Call 911 if necessary. 07/20/18 3486 <Electronically signed by Matias Cortes MD> Date Matias Cortes MD Cosigner Signature (If Indicated): Date CC: Clement Bueno MD; Aurora Young MD CXR FOR LINE PLACEMENT Observed: 07/20/2018 Status: F Source: [place] 10:26 AM [facility] REPOSITORY [facility] [place] [address] CXR for Line Placement MR#: [id number] Acct: [id number] Name: JIMENEZ WYNN Rep #: [id number] : 1935 F 82 From: Jourdan De La uFente MD PCP: Clement Bueno MD Status: ADM IN Study: CXR for Line Placement Date of Exam: 07/20/18 Exam# [id number] Ordering Dr: Matias Cortes MD STUDY: X-RAY [...] La Fuente MD at 12:15 EDT Tel [phone], Service support , CC: Clement Bueno MD; Matias Cortes MD Crimper Assembler: Signed Observed: 07/20/2018 Status: F Source: FULTS CULTURE, BLOOD (WB) 9:45 AM [facility] REPOSITORY ANAEROBIC BOTTLE GRAM STAIN= ANAEROBIC GRAM NEGATIVE JUSTICE AEROBIC BOTTLE: No growth in 5 DAYS. RESULTS CALLED TO KVNG 07/21/18 1251 Debi Daniele. REPORT READ BACK BY MARIMAR. Studies Have Confirmed That Clostridium perferingens is [...] Growth Growth Performed By: #### M200.1000 #### [facility] [address] [facility] [place], [address] ABDOMEN/PELVIS WITHOUT Observed: 07/20/2018 Status: F Source: [place] CONT 8:55 AM [facility] REPOSITORY [facility] Imaging Services [address] [place] [address] Abdomen/Pelvis without Cont MR#: [id number] Acct: [id number] Name: JIMENEZ WYNN Rep #: [id number] : 1935 F 82 From: Jourdan De La Fuente MD PCP: Clement Bueno MD Status: ADM IN Study: Abdomen/Pelvis without Cont Date of Exam: 07/20/18 Exam# [id number] Ordering Dr: Matias Cortes MD STUDY: CT [...] La Fuente MD at 9:38 EDT Tel [phone], Service support , CC: Clement Bueno MD; Matias Cortes MD Crimper Assembler: Signed CHEST 1 VIEW Observed: 07/20/2018 Status: F Source: [place] (PORTABLE) 8:27 AM [facility] REPOSITORY [facility] Imaging Services [address] [place] [address] Chest 1 View (Portable) MR#: [id number] Acct: [id number] Name: JIMENEZ WYNN Rep #: [id number] : 1935 F 82 From: Jourdan De La Fuente MD PCP: Clement Bueno MD Status: REG ER Study: Chest 1 View (Portable) Date of Exam: 07/20/18 Exam# [id number] Ordering Dr: Matias Cortes MD STUDY: X-RAY [...] La Fuente MD at 9:15 EDT Tel [phone], Service support , CC: Clement Bueno MD; Matias Cortes MD Crimper Assembler: Signed URINALYSIS, COMPLETE Collected: 07/20/2018 Status: F Source: [place] 8:25 AM [facility] REPOSITORY Order Comment: Microscopic field is filled. Other elements may be obscured. Has pt arrived? Y How was Urine Obtained? REGRINDER TO SPECIFY TYPE CODE TESTS RESULT OUT [...] URINE RARE Performed By: #### L400.0001 #### [facility] [address] [place], [address] Observed: 07/20/2018 Status: F Source: FULTS CULTURE, URINE 8:25 AM [facility] REPOSITORY Has pt arrived? Y Urine Culture ORGANISM 1: Presumptive E. coli [place] Count >100,000 Presumptive E. coli: REACTION Amoxacillin/Clavulanic [...] <=20 S (NF) indicates non-formulary drug at [facility]. Approval by Infectious Disease Specialist required before non-formulary drugs may be ordered and/or dispensed. Performed By: #### M100.0650 #### [facility] [address] [place], [address] VENOUS BLOOD GAS Collected: 07/20/2018 Status: F Source: [place] 8:19 AM [facility] REPOSITORY TYPE CODE TESTS RESULT OUT OF RANGE REFERENCE UNITS LAB L9000.9990 Normal BLD GAS TYPE MICHAEL LAB L9001.1050 O2 Normal Delivery Dev Room Air LAB L9001.1104 Normal Results To ED MD LAB L9001.1105 Normal Time Given 818 LAB [...] 28 ISTAT Performed By: #### L9000.0810 #### [facility] Laboratory Point of Care [address] [place] [address] CBC W/DIFF, AUTOMATED Collected: 07/20/2018 Status: F Source: [place] 8:00 AM [facility] REPOSITORY TYPE CODE TESTS RESULT OUT OF [...] LYMPHOPENIA NOTED. Performed By: #### L100.0100 #### [facility] [address] [place], [address] COMPREHENSIVE METABOLIC Collected: 07/20/2018 Status: F Source: [facility] 8:00 AM [facility] REPOSITORY TYPE CODE TESTS RESULT OUT OF [...] 15 Performed By: #### L500.4050, L501.4010 #### [facility] [address] [place], [address] TROPONIN-I Collected: 07/20/2018 Status: F Source: FULTS 8:00 AM [facility] REPOSITORY TYPE CODE TESTS RESULT OUT OF RANGE REFERENCE UNITS LAB L501.4010 <0.045 ng/mL Normal < 0.015 TROPONIN-I Result Comment: TROPONIN-I EXPECTED VALUES <0.045 Negative 0.045 - 0.590 Consistent with Cardiac Damage > OR = 0.600 Critical Value Not every elevated troponin is indicative of OK. These values should be used with clinical judgement in examining the patient's clinical picture for diagnosis. To establish a diagnosis of [place] versus myocardial injury, there must be a demonstrated rise and/or fall in the troponin values, in addition to ischemic symptoms, EKG changes, new regional wall motion abnormality, and/or angiographical evidence. PLEASE NOTE: REFERENCE RANGES EDITED 18 Performed By: #### L500.4050, L501.4010 #### [facility] [address] [place], [address] LACTIC ACID Collected: 07/20/2018 Status: F Source: [place] 8:00 AM [facility] REPOSITORY Order Comment: Yes/No query for Sepsis Lactate Rule Y TYPE CODE TESTS RESULT OUT OF REFERENCE UNITS RANGE LAB L503.6005 0.4-2.0 mmol/L High alert LACTIC ACID 5.9 Result Comment: Critical Result(s) Called at: 08:38:50 07/20/2018 by: Lachelle Urban Performed By: #### L503.6005 #### [facility] [address] [place], [place], [address] PROTHROMBIN TIME W/INR Collected: 07/20/2018 Status: F Source: [place] 8:00 AM [facility] REPOSITORY TYPE CODE TESTS RESULT OUT OF RANGE REFERENCE UNITS LAB L300.4150 11.7-14.9 SECONDS Normal PROTIME 13.4 LAB L300.4200 Normal INR 1.0 Performed By: #### L300.3900, L300.4310 #### [facility] [address] [place], [place], [address] PARTIAL THROMBOPLAST Collected: 07/20/2018 Status: F Source: [place] TIME 8:00 AM [facility] REPOSITORY TYPE CODE TESTS RESULT OUT OF REFERENCE UNITS RANGE LAB L300.4310 24.1-36.2 Seconds Low PTT 23.9 Performed By: #### L300.3900, L300.4310 #### [facility] [address] [place], [address] Observed: 07/20/2018 Status: F Source: [place] CULTURE, BLOOD (WB) 8:00 AM [facility] REPOSITORY BC No growth in 5 days. Performed By: #### M200.1000 #### [facility] [address] [place], [place], [address] CHEST 1 VIEW Observed: 07/20/2018 Status: F Source: [place] (PORTABLE) 7:58 AM [facility] REPOSITORY [facility] Imaging Services [address] [facility] [place] [address] Chest 1 View (Portable) MR#: [id number] Acct: [id number] Name: JIEMNEZ WYNN Rep #: [id number] : 1935 F 82 From: Jourdan De La Fuente MD PCP: Clement Bueno MD Status: REG ER Study: Chest 1 View (Portable) Date of Exam: 07/20/18 Exam# [id number] Ordering Dr: Matias Cortes MD STUDY: X-RAY [...] La Fuente MD at 8:36 EDT Tel [phone], Service support , CC: Clement Bueno MD; Matias Cortes MD Crimper Assembler: Signed LIPID PROFILE Collected: 07/07/2018 Status: F Source: [place] 6:20 AM [facility] REPOSITORY Order Comment: ROOM 204 TYPE CODE [...] VLDL 12 Performed By: #### L500.4100 #### [facility] [address] [facility] [place], [address] HEMOGLOBIN A1C Collected: 07/07/2018 Status: F Source: FULTS 6:20 AM [facility] REPOSITORY Order Comment: ROOM 204 TYPE CODE TESTS RESULT OUT OF RANGE REFERENCE UNITS LAB L501.9985 4.2-6.3 % High HGB A1C 10.0 Performed By: #### L501.9985 #### [facility] [address] [facility] [place], [place], [address] VITAMIN D,25 HYDROXY Collected: 07/07/2018 Status: F Source: FULTS 6:20 AM [facility] REPOSITORY Order Comment: ROOM 204 TYPE CODE TESTS RESULT OUT OF RANGE REFERENCE UNITS LAB L506.1000 29.95-100.01 ng/mL Normal Vitamin D 39.8 25-OH Result Comment: Vitamin D 25(OH) Status Range Deficiency <20 ng/mL (50nmol/L) Insuffciency 20 - 30 ng/mL (50 - 75 nmol/L) Sufficiency 30 - 100 ng/mL (75 - 250 nmol/L) Toxicity >100 ng/mL (>250 nmol/L) Performed By: #### L506.1000 #### [facility] [address] [facility] [facility] [address] [place], [place], [address] LIVER PROFILE Collected: 06/09/2018 Status: F Source: FULTS 6:20 AM [facility] REPOSITORY Order Comment: 204 TYPE CODE TESTS [...] 0.14 Performed By: #### L500.3400, L500.4100 #### [facility] [address] [place], [place], [address] LIPID PROFILE Collected: 06/09/2018 Status: F Source: FULTS 6:20 AM [facility] REPOSITORY Order Comment: 204 TYPE CODE TESTS [...] 7 Performed By: #### L500.3400, L500.4100 #### [facility] [address] [facility] [address] 12 LEAD ELECTROCARDIOGRAM Observed: 06/07/2018 Status: F Source: [place] 2:26 PM [facility] Cardiovascular Services [address] [place] [address] 12 Lead EKG 06/04/1827 MR#: [id number] Acct: [id number] Name: JIMENEZ WYNN Rep #: [id number] : 1935 82 From: Charly Ross MD [...] progression Confirmed by CODY MERCER, CHARLY ([id number]), photo editor SADIQ BUENO (56) on 06/07/2018 2:26:22 PM Referred By: Confirmed By:CHARLY ROSS MD 06/07/18 142 Date Charly Ross MD CC: Clement Bueno MD; Charly San MD Signed EMERGENCY DEPARTMENT Observed: 06/04/2018 Status: F Source: [place] SUMMARY 9:51 AM [facility] Medical Records Department [address] [place] [address] Emergency Department Summary 06/04/18 0949 MR#: [id number] Acct: [id number] Name: LELAND WYNNSHIN Rep #: [id number] : 1935 82 From: Charly San MD [...] SVT resolved This note was generated with PanGenX dictation software. It may contain incorrect words, spelling, and punctuation that were not noted in review of the chart prior to signing ED Disposition - Plan for ED Patient: Disposition: Home or Assisted Living Chief Complaint: Palpitations Instructions: ED Tachycardia Pat PSVT Referrals: Tracy Jones, DO [Primary Care Provider] - 3-5 Days What to do if you have Problems For any increased pain, shortness of breath, bleeding, nausea or vomiting, chest pain, or any unexpected problems, contact your Primary Care Provider. Call [facility] ([phone]) or report to the closest Emergency Room. Call 911 if necessary. 06/04/18 0951 <Electronically signed by Charly San MD> Date Charly San MD Cosigner Signature (If Indicated): Date CC: Tracy Jones DO CARDIOLOGY VISIT Observed: 05/26/2018 Status: F Source: [place] REPORT 12:48 PM [facility] REPOSITORY [facility] [address] [place] [address] OFFICE VISIT Date of Service: 05/26/18 MR#: [id number] Acct: [id number] Name: JIMENEZ WYNN Rep #: [id number] : 1935 Provider: Victoria Lambert Age/Sex: 82/F Location: [facility] Status: Signed HPI HPI Details: JIMENEZ WYNN, [...] Location Lt brachial Intake Visit Reasons: palpitations Mesh Cutter Required: No Accompanied by: Daughter Is patient [...] Rash acetaminophen [From Vicodin] Adverse Reaction (Verified 07/07/18 18:32) Chest tightness hydrocodone bitartrate [From Vicodin] [...] (valve) insufficiency (Chronic) Atherosclerotic heart disease of [place] coronary artery without angina pectoris (Chronic) Hypothyroidism [...] 05/13/2018 Status: F Source: [place] 2:07 PM [facility] REPOSITORY [facility] Cardiovascular Services [address] [place] [address] 12 Lead EKG 05/09/18 0710 MR#: [id number] Acct: [id number] Name: JIMENEZ WYNN Rep #: [id number] : 1935 82 From: Charly Ross MD Attending Dr: Margoth Carroll MD Status: DIS IN Ordering Dr: Jone Olivares MD Date: 05/09/18 Location: [facility] Sex: F C Admitted: 05/09/18 Test [...] ECG Confirmed by CODY MERCER, CHARLY ([id number]), photo editor SADIQ BUENO (56) on 05/13/2018 2:07:12 PM Referred By: [facility] Confirmed By:CHARLY ROSS MD 05/13/18 1407 Date Charly Ross MD CC: Tracy Jones DO; Margoth Carroll MD; Jone Olivares MD Signed 12 LEAD ELECTROCARDIOGRAM Observed: 05/13/2018 Status: F Source: GISSEL 2:05 PM [facility] REPOSITORY [facility] Cardiovascular Services [address] [place] [address] 12 Lead EKG 05/10/18 0528 MR#: [id number] Acct: [id number] Name: JIMENEZ WYNN Rep #: [id number] : 1935 82 From: Charly Ross MD Attending Dr: Margoth Carroll MD Status: DIS IN Ordering Dr: Mragoth Carroll MD Date: 05/10/18 Location: [facility] Sex: F C Admitted: 05/09/18 Test Reason : AM EKG Blood Pressure : / mmHG Vent. Rate : 063 BPM Atrial Rate : 063 BPM P-R Int : 142 ms QRS Dur : 090 ms QT Int : 424 ms P-R-T Axes : 021 -25 010 degrees QTc Int : 433 ms Normal sinus rhythm Normal ECG Confirmed by CODY MERCER, CHARLY ([id number]), photo editor SADIQ BUENO ([id number]) on 05/13/2018 2:05:31 PM Referred By: COURTNEY Confirmed By:CHARLY ROSS MD 05/13/18 1405 Date Charly Ross MD CC: Tracy Jones DO; Margoth Carroll MD Signed DISCHARGE SUMMARY Observed: 05/10/2018 Status: F Source: FULTS 3:37 PM [facility] REPOSITORY [facility] Medical Records Department [address] [place] [address] [place] [address] Discharge Summary 05/10/18 1353 MR#: [id number] Acct: [id number] Name: JIMENEZ WYNN Rep #: [id number] : 1935 82 From: Margoth Carroll MD PCP: Tracy Jones DO Status: ADM IN Y Location: [place] [address] Discharge Date and Diagnosis - Problem List [...] (valve) insufficiency (Chronic) 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 [...] follow-up with her primary care doctor and wirer helper in 1 week. Patient seen and examined [...] facility today. To follow-up with PCP and wirer helper. Weight Bearing Status: Weight bearing as tolerated [...] applicable Code Visit Inpatient E AND M: 30936 Disch Hosp 05/10/18 1537 <Electronically signed by Margoth Carroll MD> Date Margoth Carroll MD Cosigner Signature (if applicable): Date CC: Tracy Jones DO; Margoth Carroll MD Signed 12 LEAD ELECTROCARDIOGRAM Observed: 05/10/2018 Status: F Source: FULTS 3:12 PM [facility] REPOSITORY [facility] Cardiovascular Services [address] [place], [place] [address] [address] 12 Lead EKG 05/08/18 1829 MR#: [id number] Acct: [id number] Name: JIMENEZ WYNN Rep #: [id number] : 1935 82 From: Markus Cueto MD Attending Dr: Margoth Carroll MD Status: ADM IN Ordering Dr: Blake Powers MD Date: 05/08/18 Location: [facility] Sex: F C Admitted: 05/09/18 Test [...] ECG Confirmed by MARKUS CUETO MD ([id number]), photo editor SADIQ BUENO ([id number]) on 05/10/2018 3:11:47 PM Referred By: MIGUEL Confirmed By:MARKUS CUETO MD 05/10/18 1511 Date Markus Cueto MD CC: Tracy Jones DO; Margoth Carroll MD; Blake Powers MD Signed DISCHARGE INSTRUCTION Observed: 05/10/2018 Status: F Source: FULTS 2:40 PM [facility] REPOSITORY [facility] Medical Records Department [address] [facility] [place] [address] Instructions for Home/Discharge Instructions 05/10/18 1440 MR#: [id number] Acct: [id number] Name: JIMENEZ WYNN Rep #: [id number] : 1935 82 From: Margoth Carroll MD [...] Austin MD; Tracy Jones DO TRANSFER TO [facility] Observed: 05/10/2018 Status: F Source: [facility] 2:05 PM [facility] REPOSITORY [facility] Medical Records Department [address] [place] [address] Transfer to [facility] MR#: [id number] Acct: [id number] Name: JIMENEZ WYNN Rep #: [id number] : 1935 82 From: Margoth Carroll MD PCP: Tracy Jones DO Status: ADM IN JIMENEZ WYNN (Patient) (Health Ins. Claim No.) (Day of Discharge to Facility) Certification of patient admission REQUIRED AT TIME OF ADMISSION. I CERTIFY THAT [facility] SERVICES ARE REQUIRED TO BE GIVEN ON AN IN-PATIENT BASIS BECAUSE OF THE ABOVE NAMED PATIENT'S NEED FOR [facility] CARE ON A CONTINUING BASIS FOR THE CONDITION(S) FOR WHICH HE/SHE WAS RECEIVING IN-PATIENT HOSPITAL SERVICES PRIOR TO HIS/HER TRANSFER TO THE [facility]. 05/10/18 1405 <Electronically signed by Margoth Carroll MD> Date Margoth Carroll MD - Diet 05/10/18 13:39 Diet: Cardiac: Calorie-Controlled Is pt able to select menu?: No How many daily calories?: 1999 calorie - Routine Orders/Code Status Enema Type: [...] Than 30 Days Type of Care Needed: Correction/Assisted Living Rehab Potential: Good Prognosis: Good - [...] Markus Cueto MD When: one week 05/10/18 6765 <Electronically signed by Margoth Carroll MD> Date Margoth Carroll MD CC: Pat Austin MD; Tracy Jones DO Signed STRESS REPORT Observed: 05/10/2018 Status: F Source: GISSEL 1:25 PM [facility] REPOSITORY [facility] [place] [address] MR#: [id number] Acct: [id number] Name: JIMENEZ WYNN Rep #: [id number] : 1935 82 From: Markus Cueto MD [...] Dictated: 05/10/18 1323 Date Transcribed: 05/10/18 1323 Crimper Assembler: CO Signed BEDSIDE GLUCOSE Collected: 05/10/2018 Status: F Source: GISSEL 12:52 PM [facility] REPOSITORY TYPE CODE TESTS RESULT OUT OF REFERENCE UNITS RANGE LAB L501.080 70-110 mg/dL High BEDSIDE GLU 161 Result Comment: MANAGEMENT OF PATIENT CARE PER NURSING PROTOCOL Performed By: #### L501.080 #### [facility] Laboratory Point of Care [address] [place] [address] BEDSIDE GLUCOSE Collected: 05/10/2018 Status: F Source: GISSEL 6:53 AM [facility] REPOSITORY TYPE CODE TESTS RESULT OUT OF RANGE REFERENCE UNITS LAB L501.080 70-110 mg/dL Normal BEDSIDE GLU 99 Result Comment: MANAGEMENT OF PATIENT CARE PER NURSING PROTOCOL Performed By: #### L501.080 #### [facility] Laboratory Point of Care [address] [place] [address] BASIC METABOLIC Collected: 05/10/2018 Status: F Source: GISSEL PROFILE (BMP) 5:00 AM [facility] REPOSITORY TYPE CODE TESTS RESULT OUT OF [...] GAP 7 Performed By: #### L500.2500 #### [facility] [address] [place], [address] PROTHROMBIN TIME W/INR Collected: 05/10/2018 Status: F Source: FULTS 5:00 AM [facility] REPOSITORY TYPE CODE TESTS RESULT OUT OF RANGE REFERENCE UNITS LAB L300.4150 11.7-14.9 SECONDS Normal PROTIME 14.2 LAB L300.4200 Normal INR 1.1 Performed By: #### L300.3900, L300.4310 #### [facility] [address] [place], [address] PARTIAL THROMBOPLAST Collected: 05/10/2018 Status: F Source: FULTS TIME 5:00 AM [facility] REPOSITORY TYPE CODE TESTS RESULT OUT OF RANGE REFERENCE UNITS LAB L300.4310 24.1-36.2 Seconds Normal PTT 34.3 Performed By: #### L300.3900, L300.4310 #### [facility] [address] [place], [address] CBC W/DIFF, AUTOMATED Collected: 05/10/2018 Status: F Source: FULTS 5:00 AM [facility] REPOSITORY TYPE CODE TESTS RESULT OUT OF [...] Lymph 1.27 Performed By: #### L100.0100 #### [facility] Laboratory [facility] [id number] BEDSIDE GLUCOSE Collected: 05/09/2018 Status: F Source: FULTS 9:25 PM [facility] REPOSITORY TYPE CODE TESTS RESULT OUT OF REFERENCE UNITS RANGE LAB L501.080 70-110 mg/dL High BEDSIDE GLU 183 Result Comment: MANAGEMENT OF PATIENT CARE PER NURSING PROTOCOL Performed By: #### L501.080 #### [facility] Laboratory Point of Care [address] [facility] [place] [address] BEDSIDE GLUCOSE Collected: 05/09/2018 Status: F Source: FULTS 4:45 PM [facility] REPOSITORY TYPE CODE TESTS RESULT OUT OF REFERENCE UNITS RANGE LAB L501.080 70-110 mg/dL High BEDSIDE GLU 246 Result Comment: MANAGEMENT OF PATIENT CARE PER NURSING PROTOCOL Performed By: #### L501.080 #### [facility] Laboratory Point of Care [address] [facility] [place] [address] CTA CHEST W/WO Observed: 05/09/2018 Status: F Source: GISSEL CONTRAST 2:31 PM [facility] REPOSITORY [facility] Imaging Services [address] [place] [address] CTA Chest W/WO Contrast MR#: [id number] Acct: [id number] Name: JIMENEZ WYNN Rep #: [id number] : 1935 F 82 From: Cosme Melendez MD PCP: Tracy Jones DO Status: ADM IN Study: CTA Chest W/WO Contrast Date of Exam: 05/09/18 Exam# [id number] Ordering Dr: Margoth Carroll MD STUDY: CTA [...] CC: Tracy Jones DO; Margoth Carroll MD Crimper Assembler: Signed D-DIMER QUANTITATIVE Collected: 05/09/2018 Status: F Source: FULTS (DVT/PE) 1:55 PM [facility] REPOSITORY TYPE CODE TESTS RESULT OUT OF [...] SAME . Performed By: #### L300.8000 #### [facility] [address] [facility] [place], [address] CONSULTATION Observed: 05/09/2018 Status: F Source: FULTS 11:39 AM [facility] REPOSITORY [facility] Medical Records Department [address] [place] [address] Consultation 05/09/18 1129 MR#: [id number] Acct: [id number] Name: JIMENEZ WYNN Rep #: [id number] : 1935 82 From: Pat Austin MD PCP: Tracy Jones DO Status: ADM KIANA Y Location: [place] [address] Problem List (1) SVT (supraventricular tachycardia) Status: [...] (valve) insufficiency (Chronic) 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 Hypothyroidism (Chronic) COPD (chronic obstructive pulmonary disease) (Chronic) Hyperlipidemia (Chronic) Type 2 diabetes mellitus (Chronic) Surgical History: hysterectomy, total hip arthroplasty, - - Fractured femur - *Family History Maternal History Items: No pertinent history Paternal History Items: No pertinent history Lives: [place] Smoking Status: Never smoker Alcohol: None Drugs: [...] / 50 653 / 653 Balance 50 50 653 / 653 General: Healthy Appearing, [...] 05/09/2018 Status: F Source: GISSEL 11:35 AM [facility] REPOSITORY TYPE CODE TESTS RESULT OUT OF REFERENCE UNITS RANGE LAB L501.080 70-110 mg/dL High BEDSIDE GLU 308 Result Comment: MANAGEMENT OF PATIENT CARE PER NURSING PROTOCOL Performed By: #### L501.080 #### [facility] Point of Care [facility] [address] [place], [place] [address] TROPONIN-I Collected: 05/09/2018 Status: F Source: GISSEL 7:50 AM [facility] REPOSITORY Order Comment: 'TROP' Serial specimen #1, #2 or #3: 3 TYPE CODE TESTS RESULT OUT OF RANGE REFERENCE UNITS LAB L501.4010 <0.045 ng/mL High 0.387 TROPONIN-I Result Comment: TROPONIN-I EXPECTED VALUES <0.045 Negative 0.045 - 0.590 Consistent with Cardiac Damage > OR = 0.600 Critical Value Not every elevated troponin is indicative of OK. These values should be used with clinical judgement in examining the patient's clinical picture for diagnosis. To establish a diagnosis of OK versus myocardial injury, there must be a demonstrated rise and/or fall in the troponin values, in addition to ischemic symptoms, EKG changes, new regional wall motion abnormality, and/or angiographical evidence. PLEASE NOTE: REFERENCE RANGES EDITED 18 Performed By: #### L501.4010 #### [facility] [address] [place], [address] BEDSIDE GLUCOSE Collected: 05/09/2018 Status: F Source: FULTS 6:45 AM [facility] REPOSITORY TYPE CODE TESTS RESULT OUT OF REFERENCE UNITS RANGE LAB L501.080 70-110 mg/dL High BEDSIDE GLU 165 Result Comment: MANAGEMENT OF PATIENT CARE PER NURSING PROTOCOL Performed By: #### L501.080 #### [facility] Point of Care [address] [place] [address] HISTORY AND PHYSICAL Observed: 05/09/2018 Status: F Source: FULTS EXAM 5:51 AM [facility] REPOSITORY [facility] Medical Records Department [address] [place] [address] History and Physical 05/08/182148 MR#: [id number] Acct: [id number] Name: JIMENEZ WYNN Rep #: [id number] : 1935 82 From: Jone Olivares MD PCP: Tracy Jones DO Status: ADM KINAA Y Location: [place] [address] Problem List (1) DEMETRA (acute kidney injury) Status: Acute (2) SVT (supraventricular tachycardia) Status: Acute (3) Nonrheumatic tricuspid (valve) insufficiency Status: Chronic (4) Atherosclerotic heart disease of [place] coronary artery without angina pectoris Status: Chronic [...] (valve) insufficiency (Chronic) 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 2) Elevated trops: Probably type II OK. Will consult cards. Probably no aggressive care [...] TIME W/INR Collected: 05/09/2018 Status: F Source: FULTS 4:33 AM [facility] REPOSITORY TYPE CODE TESTS RESULT OUT OF RANGE REFERENCE UNITS LAB L300.4150 11.7-14.9 SECONDS Normal PROTIME 14.0 LAB L300.4200 Normal INR 1.1 Performed By: #### L300.3900 #### [facility] [address] [place], [address] TROPONIN-I Collected: 05/09/2018 Status: F Source: FULTS 4:33 [facility] REPOSITORY Order Comment: 'TROP' Serial specimen #1, #2 or #3: 2 TYPE CODE TESTS RESULT OUT OF RANGE REFERENCE UNITS LAB L501.4010 <0.045 ng/mL High 0.383 TROPONIN-I Result Comment: TROPONIN-I EXPECTED VALUES <0.045 Negative 0.045 - 0.590 Consistent with Cardiac Damage > OR = 0.600 Critical Value Not every elevated troponin is indicative of OK. These values should be used with clinical judgement in examining the patient's clinical picture for diagnosis. To establish a diagnosis of OK versus myocardial injury, there must be a demonstrated rise and/or fall in the troponin values, in addition to ischemic symptoms, EKG changes, new regional wall motion abnormality, and/or angiographical evidence. PLEASE NOTE: REFERENCE RANGES EDITED 18 Performed By: #### L501.4010 #### [facility] [address] [place], [address] BASIC METABOLIC Collected: 05/09/2018 Status: F Source: FULTS PROFILE (BMP) 4:33 AM [facility] REPOSITORY TYPE CODE TESTS RESULT OUT OF [...] GAP 10 Performed By: #### L500.2500 #### [facility] [address] [place], [address] EMERGENCY DEPARTMENT Observed: 05/09/2018 Status: F Source: FULTS SUMMARY 2:01 AM [facility] REPOSITORY [facility] Medical Records Department [address] [place] [address] Emergency Department Summary 05/08/182023 MR#: [id number] Acct: [id number] Name: JIMENEZ WYNN Rep #: [id number] : 1935 82 From: Blake Powers MD [...] 2. Conversion with adenosine. 3. Hyperglycemia with pkg-ytkjpnq-zaxgzbnpx diabetes mellitus. 4. Acute renal insufficiency. 5. Critical care time 30 minutes. This note was generated with [employer] dictation software. It may contain incorrect words, [...] problems, contact your Primary Care Provider. Call [employer] [facility] ([phone]) or report to the closest Emergency Room. Call 911 if necessary. 05/09/18 0201 <Electronically signed by Blake Powers MD> Date Blake Powers MD Cosigner Signature (If Indicated): Date CC: Tracy Jones DO TROPONIN-I Collected: 05/09/2018 Status: F Source: GISSEL 1:58 AM [facility] REPOSITORY Order Comment: 'TROP' Serial specimen #1, #2 or #3: 1 TYPE CODE TESTS RESULT OUT OF RANGE REFERENCE UNITS LAB L501.4010 <0.045 ng/mL High 0.372 TROPONIN-I Result Comment: TROPONIN-I EXPECTED VALUES <0.045 Negative 0.045 - 0.590 Consistent with Cardiac Damage > OR = 0.600 Critical Value Not every elevated troponin is indicative of OK. These values should be used with clinical judgement in examining the patient's clinical picture for diagnosis. To establish a diagnosis of OK versus myocardial injury, there must be a demonstrated rise and/or fall in the troponin values, in addition to ischemic symptoms, EKG changes, new regional wall motion abnormality, and/or angiographical evidence. PLEASE NOTE: REFERENCE RANGES EDITED 18 Performed By: #### L501.4010 #### [facility] [address] [place], [place], [address] BEDSIDE GLUCOSE Collected: 05/08/2018 Status: F Source: FULTS 11:31 PM [facility] REPOSITORY TYPE CODE TESTS RESULT OUT OF REFERENCE UNITS RANGE LAB L501.080 70-110 mg/dL High BEDSIDE GLU 210 Result Comment: MANAGEMENT OF PATIENT CARE PER NURSING PROTOCOL Performed By: #### L501.080 #### [facility] Point of Care [address] [place] [address] CBC W/DIFF, AUTOMATED Collected: 05/08/2018 Status: F Source: FULTS 6:35 PM [facility] REPOSITORY TYPE CODE TESTS RESULT OUT OF [...] Lymph 1.42 Performed By: #### L100.0100 #### [facility] [address] [place], [address] BASIC METABOLIC Collected: 05/08/2018 Status: F Source: FULTS PROFILE (BMP) 6:35 PM [facility] REPOSITORY TYPE CODE TESTS RESULT OUT OF [...] Performed By: #### L500.2500, L501.4010, L501.9520 #### [facility] [address] [facility] [place], [address] TROPONIN-I Collected: 05/08/2018 Status: F Source: FULTS 6:35 PM [facility] REPOSITORY TYPE CODE TESTS RESULT OUT OF RANGE REFERENCE UNITS LAB L501.4010 <0.045 ng/mL High 0.082 TROPONIN-I Result Comment: TROPONIN-I EXPECTED VALUES <0.045 Negative 0.045 - 0.590 Consistent with Cardiac Damage > OR = 0.600 Critical Value Not every elevated troponin is indicative of OK. These values should be used with clinical judgement in examining the patient's clinical picture for diagnosis. To establish a diagnosis of OK versus myocardial injury, there must be a demonstrated rise and/or fall in the troponin values, in addition to ischemic symptoms, EKG changes, new regional wall motion abnormality, and/or angiographical evidence. PLEASE NOTE: REFERENCE RANGES EDITED 18 Performed By: #### L500.2500, L501.4010, L501.9520 #### [facility] [address] [place], [address] THYROID STIM HORMONE Collected: 05/08/2018 Status: F Source: FULTS (TSH) 6:35 PM [facility] REPOSITORY TYPE CODE TESTS RESULT OUT OF RANGE REFERENCE UNITS LAB L501.9520 0.358-3.74 uIU/mL Normal TSH 2.96 Performed By: #### L500.2500, L501.4010, L501.9520 #### [facility] [address] [facility] [place], [address] CHEST 1 VIEW Observed: 05/08/2018 Status: F Source: FULTS (PORTABLE) 6:32 PM [facility] REPOSITORY [facility] Imaging Services [address] [place] [address] Chest 1 View (Portable) MR#: [id number] Acct: [id number] Name: JIMENEZ WYNN Rep #: [id number] : 1935 F 82 From: Jose G Vo MD PCP: Tracy Jones DO Status: REG ER Study: Chest 1 View (Portable) Date of Exam: 05/08/18 Exam# [id number] Ordering Dr: Blake Powers MD STUDY: X-RAY [...] , Service support , CC: Tracy Jones ; Blake Powers MD Crimper Assembler: Signed CBC W/DIFF, AUTOMATED Collected: 04/14/2018 Status: F Source: GISSEL 5:40 AM [facility] REPOSITORY Order Comment: ROOM 204 [place] TYPE [...] Lymph 1.60 Performed By: #### L100.0100 #### [facility] [address] [place], [place], [address] HEMOGLOBIN A1C Collected: 04/14/2018 Status: F Source: FULTS 5:40 AM [facility] REPOSITORY Order Comment: ROOM 204 [place] TYPE CODE TESTS RESULT OUT OF RANGE REFERENCE UNITS LAB L501.9985 4.2-6.3 % High HGB A1C 9.1 Performed By: #### L501.9985 #### [facility] [address] [place], [address] COMPREHENSIVE METABOLIC Collected: 04/14/2018 Status: F Source: [facility] 5:40 AM [facility] REPOSITORY Order Comment: ROOM 204 [place] TYPE [...] 9 Performed By: #### L500.4050, L503.6150 #### [facility] [address] [place], [address] IRON Collected: 04/14/2018 Status: F Source: GISSEL 5:40 AM [facility] REPOSITORY Order Comment: ROOM [address] [place] TYPE CODE TESTS RESULT OUT OF RANGE REFERENCE UNITS LAB L503.6150 50-170 ug/dL Low IRON 42 Performed By: #### L500.4050, L503.6150 #### [facility] [address] [place], [address] VITAMIN B12 Collected: 04/14/2018 Status: F Source: GISSEL 5:40 AM [facility] REPOSITORY Order Comment: ROOM [address] [place] TYPE CODE TESTS RESULT OUT OF RANGE REFERENCE UNITS LAB L503.0105 211-911 pg/mL Normal Vitamin B12 350 Performed By: #### L503.0105 #### [facility] [address] [place], [address] 12 LEAD ELECTROCARDIOGRAM Observed: 03/25/2018 Status: F Source: GISSEL 10:39 AM [facility] REPOSITORY [facility] Cardiovascular Services [address] [place] [address] 12 Lead EKG 03/01/18 1402 MR#: [id number] Acct: [id number] Name: JIMENEZ WYNN Rep #: [id number] : 1935 82 From: Charly Ross MD Attending Dr: Yefri Bartholomew DO Status: DIS IN Ordering Dr: Jeremi Rosales DO Date: 03/01/18 Location: [facility] Sex: F C Admitted: 03/01/18 Test [...] ECG Confirmed by CODY MERCER, CHARLY ([id number]), photo editor SADIQ BUENO ([id number]) on 03/03/2018 9:08:14 AM Referred By: SL Confirmed By:CHARLY ROSS MD 03/03/18 0908 Date Charly Ross MD CC: Yefri Bartholomew DO; Tracy Jones DO; Jeremi Rosales DO Signed 12 LEAD ELECTROCARDIOGRAM Observed: 03/03/2018 Status: F Source: GISSEL 6:10 PM [facility] REPOSITORY [facility] Cardiovascular Services [address] [place] [address] 12 Lead EKG 03/01/18 1402 MR#: [id number] Acct: [id number] Name: LELAND WYNNSHIN Rep #: [id number] : 1935 82 From: Charly Ross MD [...] ECG Confirmed by CODY MERCER, CHARLY ([id number]), photo editor SADIQ BUENO ([id number]) on 03/03/2018 9:08:14 AM Referred By: SL Confirmed By:CHARLY ROSS MD 03/03/18 0908 Date Charly Ross MD CC: Tracy Jones DO; Jeremi Rosales DO Signed 12 LEAD ELECTROCARDIOGRAM Observed: 03/03/2018 Status: F Source: GISSEL 6:10 PM [facility] REPOSITORY [facility] Cardiovascular Services [address] [place] [address] 12 Lead EKG 03/01/18 1416 MR#: [id number] Acct: [id number] Name: JOE WYNN Rep #: [id number] : 1935 82 From: Charly Ross MD [...] Abnormal ECG Confirmed by CHARLY ROSS MD ([id number]), photo editor SADIQ BUENO ([id number]) on 03/03/2018 9:08:35 AM Referred By: PRANAV Confirmed By:CHARLY ROSS MD 03/03/18 0908 Date Charly Ross MD CC: Yefri Bartholomew DO; Tracy Jones DO; Jeremi Rosales DO Signed DISCHARGE SUMMARY Observed: 03/03/2018 Status: F Source: FULTS 1:27 PM [facility] REPOSITORY [facility] Medical Records Department [address] [place] [address] Discharge Summary 03/03/18 1022 MR#: [id number] Acct: [id number] Name: JIMENEZ WYNN Rep #: [id number] : 1935 82 From: Brandi PATTERSON PCP: Tracy Jones DO Status: ADM IN Y [id number] <Brandi Simpson - Last Filed: 03/03/18 10:31> [...] (valve) insufficiency (Chronic) 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 [...] (valve) insufficiency (Chronic) 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 Hypothyroidism (Chronic) COPD (chronic obstructive pulmonary disease) (Chronic) Hyperlipidemia (Chronic) Type 2 diabetes mellitus (Chronic) Hospital Course and Treatment Operations: None Procedures: 2-D Echocardiogram Summary of Care Provided: Pt seen and examined independently. I agree with the above [employer] note. The patient is a 82 year [...] applicable Code Visit Inpatient E AND M: 43703 Disch Hosp 03/03/18 1032 <Electronically signed by Brandi PATTERSON> Date Brandi PATTERSON 03/03/18 1327<Electronically signed by Yefri Bartholomew DO> Cosigner Signature (if applicable): Date Yefri Bartholomew DO CC: LEONARDO Simpson; Yefri Bartholomew DO; Tracy Jones DO Signed BEDSIDE GLUCOSE Collected: 03/03/2018 Status: F Source: FULTS 11:18 AM [facility] REPOSITORY TYPE CODE TESTS RESULT OUT OF REFERENCE UNITS RANGE LAB L501.080 70-110 mg/dL High BEDSIDE GLU 413 Result Comment: MANAGEMENT OF PATIENT CARE PER NURSING PROTOCOL Performed By: #### L501.080 #### [facility] Laboratory Point of Care [address] [facility] [place] [address] DISCHARGE INSTRUCTION Observed: 03/03/2018 Status: F Source: FULTS 10:22 AM [facility] REPOSITORY [facility] Medical Records Department [address] [place] [address] Instructions for Home/Discharge Instructions 03/03/18 1019 MR#: [id number] Acct: [id number] Name: JIMENEZ WYNN Rep #: [id number] : 1935 82 From: Brandi PATTERSON PCP: [...] 03/03/2018 Status: F Source: GISSEL 6:57 AM [facility] REPOSITORY TYPE CODE TESTS RESULT OUT OF RANGE REFERENCE UNITS LAB L501.080 70-110 mg/dL Normal BEDSIDE GLU 105 Result Comment: MANAGEMENT OF PATIENT CARE PER NURSING PROTOCOL Performed By: #### L501.080 #### [place] [facility] Laboratory Point [place] [address] CBC-COMPLETE BLOOD CNT Collected: 03/03/2018 Status: F Source: GISSEL NO DIFF 5:40 AM [facility] REPOSITORY TYPE CODE TESTS RESULT OUT OF [...] MPV 8.8 Performed By: #### L100.0500 #### [facility] Laboratory [facility] [address] [place], [place], [address] BASIC METABOLIC Collected: 03/03/2018 Status: F Source: FULTS PROFILE (BMP) 5:40 AM [facility] REPOSITORY TYPE CODE TESTS RESULT OUT OF [...] GAP 11 Performed By: #### L500.2500 #### [facility] Laboratory [address] [place], [address] BEDSIDE GLUCOSE Collected: 03/02/2018 Status: F Source: FULTS 9:04 PM [facility] REPOSITORY TYPE CODE TESTS RESULT OUT OF REFERENCE UNITS RANGE LAB L501.080 70-110 mg/dL High BEDSIDE GLU 249 Result Comment: MANAGEMENT OF PATIENT CARE PER NURSING PROTOCOL Performed By: #### L501.080 #### [facility] Laboratory Point of Care [address] [place] [address] BEDSIDE GLUCOSE Collected: 03/02/2018 Status: F Source: FULTS 4:07 PM [facility] REPOSITORY TYPE CODE TESTS RESULT OUT OF REFERENCE UNITS RANGE LAB L501.080 70-110 mg/dL Low BEDSIDE GLU 64 Result Comment: MANAGEMENT OF PATIENT CARE PER NURSING PROTOCOL Performed By: #### L501.080 #### [facility] Laboratory Point of Care [address] [place] [address] ECHOCARDIOGRAM COMPLETE Observed: 03/02/2018 Status: F Source: FULTS 2:00 PM [facility] REPOSITORY [facility] Cardiovascular Services [address] [place] [address] Echo Complete 03/02/18 0907 MR#: [id number] Acct: [id number] Name: JIMENEZ WYNN Rep #: [id number] : 1935 82 From: Charly Ross MD [...] LV V1 max: 113.4 cm/sec TR max chaak: 290.8 cm/sec Ao max P.9 mmHg LV [...] Dictated: 03/02/18 0907 Date Transcribed: 03/02/18 1400 Crimper Assembler: Signed BEDSIDE GLUCOSE Collected: 03/02/2018 Status: F Source: GISSEL 1:16 PM [facility] REPOSITORY TYPE CODE TESTS RESULT OUT OF REFERENCE UNITS RANGE LAB L501.080 70-110 mg/dL High BEDSIDE GLU 370 Result Comment: MANAGEMENT OF PATIENT CARE PER NURSING PROTOCOL Performed By: #### L501.080 #### [facility] Laboratory Point of Care [address] [place] [address] Observed: 03/02/2018 Status: F Source: FULTS LEGIONELLA ANTIGEN 12:45 PM [facility] URINE REPOSITORY Legionella, UR Legionella Antigen result interpretation: Negative Presumptive negative for Legionella pneumophila serogroup 1 antigen in urine, suggesting no recent or current infection. Legionella Ag, Urine Negative (See interpretation below) Performed By: #### M300.4500 #### [facility] Laboratory [address] [place], [address] STREP Observed: 03/02/2018 Status: F Source: FULTS PNEUMONIAE ANTIG(UR,CSF) 12:45 PM [facility] REPOSITORY S pneumo Ag URINE INTERPRETATION Negative Urine Presumptive negative for pneumococcal pneumonia, suggesting no current or recent pneumococcal infection. Infection due to S pneumoniae cannot be ruled out since the antigen present in the sample may be below the detection limit of the test. Strep pneumo Test Negative URINE (See interpretation below) Performed By: #### M300.4600 #### [facility] Laboratory [facility] [place], [address] BEDSIDE GLUCOSE Collected: 03/02/2018 Status: F Source: FULTS 10:54 AM [facility] REPOSITORY TYPE CODE TESTS RESULT OUT OF REFERENCE UNITS RANGE LAB L501.080 70-110 mg/dL High alert BEDSIDE GLU 465 Result Comment: Repeat Test MANAGEMENT OF PATIENT CARE PER NURSING PROTOCOL Performed By: #### L501.080 #### [facility] Laboratory Point of Care [address] [place] [address] CONSULTATION Observed: 03/02/2018 Status: F Source: FULTS 10:23 AM [facility] REPOSITORY [facility] Medical Records Department [address] [place] [address] Consultation 03/02/18 0641 MR#: [id number] Acct: [id number] Name: JIMENEZ WYNN Rep #: [id number] : 1935 82 From: Markus Cueto MD PCP: Tracy Jones DO Status: ADM IN Y Location: [place] [address] Reason for Consult Date of Consultation: 03/02/18 [...] (valve) insufficiency (Chronic) 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 Hypothyroidism (Chronic) COPD (chronic obstructive pulmonary disease) (Chronic) Hyperlipidemia (Chronic) Type 2 diabetes mellitus (Chronic) Surgical History: hysterectomy, total hip arthroplasty, - - Fractured femur Psychiatric History: No pertinent psych hx BLUEPRINT 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: No pertinent BLUEPRINT DUPLICATOR history - *Family History Maternal History Items: [...] % (Auto) Cancelled, Lymph % (Auto) Cancelled, Gem % (Auto) Cancelled, Eos % (Auto) Cancelled, [...] 0.15 H Rhythm: EKG: Initial EKG from Isaura 30 1402 demonstrates supraventricular tachycardia with a rate [...] 03/02/2018 Status: F Source: GISSEL 6:55 AM [facility] REPOSITORY TYPE CODE TESTS RESULT OUT OF REFERENCE UNITS RANGE LAB L501.080 70-110 mg/dL High BEDSIDE GLU 224 Result Comment: MANAGEMENT OF PATIENT CARE PER NURSING PROTOCOL Performed By: #### L501.080 #### [facility] Laboratory Point [place] [address] CBC W/DIFF, AUTOMATED Collected: 03/02/2018 Status: F Source: GISSEL 5:50 AM [facility] REPOSITORY Order Comment: REDRAW. PREVIOUS SPECIMEN REJECTED [...] OVALOCYTE RARE Performed By: #### L100.0100 #### [facility] Laboratory [address] [place], [address] TROPONIN-I Collected: 03/02/2018 Status: F Source: FULTS 4:45 AM [facility] REPOSITORY Order Comment: 'TROP' Serial specimen #1, #2, #3, or #4: 4 TYPE CODE TESTS RESULT OUT OF RANGE REFERENCE UNITS LAB L501.4010 <0.06 ng/mL High 0.15 TROPONIN-I Result Comment: TROPONIN-I EXPECTED VALUES <0.05 NEGATIVE 0.06 - 0.59 AT RISK OF OK > OR = 0.60 SUGGEST OK Performed By: #### L501.4010, L500.2500 #### [facility] Laboratory [address] [facility] [place], [address] BASIC METABOLIC Collected: 03/02/2018 Status: F Source: FULTS PROFILE (BMP) 4:45 AM [facility] REPOSITORY Order Comment: 'TROP' Serial specimen #1, [...] 8 Performed By: #### L501.4010, L500.2500 #### [facility] Laboratory [address] [place], [address] MAGNESIUM Collected: 03/02/2018 Status: F Source: GISSEL 4:45 AM [facility] REPOSITORY TYPE CODE TESTS RESULT OUT OF RANGE REFERENCE UNITS LAB L501.5200 1.6-2.6 mg/dL Low MG 1.5 Performed By: #### L501.5200 #### [facility] Laboratory [address] [place], [address] BEDSIDE GLUCOSE Collected: 03/01/2018 Status: F Source: GISSEL 10:31 PM [facility] REPOSITORY TYPE CODE TESTS RESULT OUT OF REFERENCE UNITS RANGE LAB L501.080 70-110 mg/dL High BEDSIDE GLU 339 Result Comment: MANAGEMENT OF PATIENT CARE PER NURSING PROTOCOL Performed By: #### L501.080 #### [facility] Point of Care [address] [facility] [place], [place] [address] TROPONIN-I Collected: 03/01/2018 Status: F Source: FULTS 6:55 PM [facility] REPOSITORY Order Comment: 'TROP' Serial specimen #1, #2, #3, or #4: 2 TYPE CODE TESTS RESULT OUT OF RANGE REFERENCE UNITS LAB L501.4010 <0.06 ng/mL High 0.15 TROPONIN-I Result Comment: TROPONIN-I EXPECTED VALUES <0.05 NEGATIVE 0.06 - 0.59 AT RISK OF OK > OR = 0.60 SUGGEST OK Performed By: #### L501.4010 #### [facility] Laboratory [address] [place], [address] POTASSIUM Collected: 03/01/2018 Status: F Source: FULTS 6:55 PM [facility] REPOSITORY TYPE CODE TESTS RESULT OUT OF RANGE REFERENCE UNITS LAB L501.5600 3.5-5.1 mmol/L Normal K 5.1 Performed By: #### L501.5600 #### [facility] Laboratory [address] [place], [address] THYROID STIM HORMONE Collected: 03/01/2018 Status: F Source: GISSEL (TSH) 6:55 PM [facility] REPOSITORY TYPE CODE TESTS RESULT OUT OF RANGE REFERENCE UNITS LAB L501.9520 0.358-3.74 uIU/mL Normal TSH 2.14 Performed By: #### L501.9520 #### [facility] Laboratory [address] [place], [address] HISTORY AND PHYSICAL Observed: 03/01/2018 Status: F Source: GISSEL EXAM 5:14 PM [facility] REPOSITORY [facility] Medical Records Department [address] [place] [address] [place] [address] History and Physical 03/01/18 1557 MR#: [id number] Acct: [id number] Name: JIMENEZ WYNN Rep #: [id number] : 1935 82 From: Mohsen Goncalves MD PCP: Tracy Jones DO Status: ADM IN Location: [place] [address] Problem List (1) Takotsubo cardiomyopathy Status: Chronic (2) Nonrheumatic tricuspid (valve) insufficiency Status: Chronic (3) Atherosclerotic heart disease of [place] coronary artery without angina pectoris Status: Chronic [...] (valve) insufficiency (Chronic) 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 [...] femur Psychiatric History: No pertinent psych hx BLUEPRINT 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: No pertinent BLUEPRINT DUPLICATOR history Smoking Status: Never smoker Alcohol: None [...] Subcu heparin. This note was generated with PanGenX dictation software. It may contain incorrect words, spelling, and punctuation that were not noted in checking the note before signing. Code Visit Inpatient E AND M: 30698 Init Hosp L3 03/01/18 8093 <Electronically signed by Mohsen Goncalves MD> Date Mohsen Goncalves MD Cosigner Signature: Date (if applicable) CC: Mohsen Goncalves; Tracy Jones DO Signed BEDSIDE GLUCOSE Collected: 03/01/2018 Status: F Source: GISSEL 4:10 PM [facility] REPOSITORY TYPE CODE TESTS RESULT OUT OF REFERENCE UNITS RANGE LAB L501.080 70-110 mg/dL High BEDSIDE GLU 264 Result Comment: MANAGEMENT OF PATIENT CARE PER NURSING PROTOCOL Performed By: #### L501.080 #### [facility] Laboratory [facility] [address] [place] [address] Observed: 03/01/2018 Status: F Source: GISSEL CULTURE, BLOOD (WB) 3:44 PM [facility] REPOSITORY No growth in 5 days. Performed By: #### M200.1000 #### [facility] Laboratory [address] [place], [address] Observed: 03/01/2018 Status: F Source: GISSEL CULTURE, BLOOD (WB) 3:39 PM [facility] REPOSITORY GRAM STAIN: GRAM POSITIVE COCCI CALLED TO EMRE HARDY 03/02/18 1722 BY OPIEL Possible skin contamination, further Identification and sensitivity will be performed only by physician's request. ORGANISM 1: Coag Negative Staph Amount Growth Growth Performed By: #### M200.1000, M100.636 #### [facility] Laboratory [facility] [place], [address] Observed: 03/01/2018 Status: F Source: GISSEL GPC ID 3:39 PM [facility] REPOSITORY GPC ID Staphylococcus sp. Coagulase - Negative Staphylococcus sp. Enterococcus sp. Not Detected Streptococcus spp. Not Detected Listeria spp Not Detected Russell/vanB Not Detected mecA Not Detected NAAT METHOD Testing was performed using nucleic acid amplification ORGANISM 1: Coag Negative Staph Performed By: #### M200.1000, M100.636 #### [facility] Laboratory [address] [place] [address] [place], [address] EMERGENCY DEPARTMENT Observed: 03/01/2018 Status: F Source: GISSEL SUMMARY 3:32 PM [facility] REPOSITORY [facility] Medical Records Department [address] [place] [address] Emergency Department Summary 03/01/18 1527 MR#: [id number] Acct: [id number] Name: JIMENEZ WYNN Rep #: [id number] : 1935 82 From: Jeremi Rosales DO [...] failure Hyperkalemia] This note was generated with PanGenX dictation software. It may contain incorrect words, spelling, and punctuation that were not noted in review of the chart prior to signing ED Disposition - Plan for ED Patient: Chief Complaint: Palpitations Referrals: Benja,Tracy, DO [Primary Care Provider] - What to do if you have Problems For any increased pain, shortness of breath, bleeding, nausea or vomiting, chest pain, or any unexpected problems, contact your Primary Care Provider. Call [facility] ([phone]) or report to the closest Emergency Room. Call 911 if necessary. 03/01/18 1532 <Electronically signed by Jeremi Rosales DO> Date Jeremi Rosales DO Cosigner Signature (If Indicated): Date CC: Tracy Jones DO CARDIOLOGY VISIT Observed: 03/01/2018 Status: F Source: FULTS REPORT 2:09 PM [facility] REPOSITORY [facility] [address] [place] [address] OFFICE VISIT Date of Service: 03/01/18 MR#: [id number] Acct: [id number] Name: JIMENEZ WYNN Rep #: [id number] : 1935 Provider: Charly Ross MD Age/Sex: 82/F Location: [facility] Status: Signed HPI HPI Details: JIMENEZ WYNN, [...] mg PO QDAY 03/01/18 [History Confirmed 03/01/18] [facility] Medical History Takotsubo cardiomyopathy (Chronic) Nonrheumatic tricuspid (valve) insufficiency (Chronic) Atherosclerotic heart disease of [place] coronary artery without angina pectoris (Chronic) Hypothyroidism [...] Supplemental Info Her most recent echocardiogram from [facility] was on 08/28/2016. The results are as noted below. Interpretation Summary Mild segmental systolic dysfunction (see wail motion) The estimated ejection fraction is 45 %. The left atrium is mildly enlarged. Mild (1+) eccentric mitral Valve insufficiency. Trivial tricuspid valve insufficiency. Her previous stress test at [facility] was on 07/20/2007. At that point in time she had no significant fixed defects to suggest infarct and no reversible defects to suggest ischemia. He had a diagnostic cardiac catheterization performed at [facility] on 09/13/2012. At that point [...] breath/dyspnea. She will be referred to the [facility] emergency department for further evaluation and care. [...] cardiomyopathy as deemed appropriate. 3. Atherosclerosis of [place] coronary artery of [place] heart without angina pectoris I25.10 Mild Plan [...] tachycardia I47.1 Takotsubo cardiomyopathy I51.81 Atherosclerosis of [place] coronary artery of [place] heart without angina pectoris I25.10 [place] vs. transplanted heart: [place] heart Mitral valve insufficiency, unspecified etiology I34.0 [...] tachycardia I47.1 Takotsubo cardiomyopathy I51.81 Atherosclerosis of [place] coronary artery of [place] heart without angina pectoris I25.10 [place] vs. transplanted heart: [place] heart Mitral valve insufficiency, unspecified etiology I34.0 [...] Status: F Source: GISSEL (PORTABLE) 2:09 PM [facility] REPOSITORY [facility] Imaging Services [address] [place] [place] [address] Chest 1 View (Portable) MR#: [id number] Acct: [id number] Name: KINGSLEYLELANDSHIN Haddad Rep #: [id number] : 1935 F 82 From: Lou Lim MD PCP: Tracy Jones DO Status: PRE ER Study: Chest 1 View (Portable) Date of Exam: 03/01/18 Exam# [id number] Ordering Dr: Jeremi Rosales DO STUDY: X-RAY [...] CC: Tracy Jones DO; Jeremi Rosales DO Crimper Assembler: Signed CHEST 1 VIEW Observed: 03/01/2018 Status: F Source: GISSEL (PORTABLE) 2:09 PM [facility] REPOSITORY [facility] Imaging Services [address] [place] [place] [address] Chest 1 View (Portable) MR#: [id number] Acct: [id number] Name: JIMENEZ WYNN Rep #: [id number] : 1935 F 82 From: Lou Lim MD PCP: Tracy Jones DO Status: DIS IN Study: Chest 1 View (Portable) Date of Exam: 03/01/18 Exam# [id number] Ordering Dr: Jeremi Rosales DO STUDY: X-RAY [...] CC: Tracy Jones DO; Jeremi Rosales DO Crimper Assembler: Signed CBC W/DIFF, AUTOMATED Collected: 03/01/2018 Status: F Source: GISSEL 2:07 PM [facility] REPOSITORY TYPE CODE TESTS RESULT OUT OF [...] Lymph 1.24 Performed By: #### L100.0100 #### [facility] Laboratory [address] [place], [address] BNP,B-TYPE NATRIURETIC Collected: 03/01/2018 Status: F Source: GISSEL PEPTIDE 2:07 PM [facility] REPOSITORY TYPE CODE TESTS RESULT OUT OF RANGE REFERENCE UNITS LAB L503.6620 0-100 pg/mL High B-TYPE 120.4 SIMA PEP Performed By: #### L503.6620 #### [facility] Laboratory [address] [place], [address] CBC W/DIFF, AUTOMATED Collected: 03/01/2018 Status: F Source: GISSEL 2:07 PM [facility] REPOSITORY TYPE CODE TESTS RESULT OUT OF [...] Lymph 1.24 Performed By: #### L100.0100 #### [facility] Laboratory [address] [place], [address] BNP,B-TYPE NATRIURETIC Collected: 03/01/2018 Status: F Source: FULTS PEPTIDE 2:07 PM [facility] REPOSITORY TYPE CODE TESTS RESULT OUT OF RANGE REFERENCE UNITS LAB L503.6620 0-100 pg/mL High B-TYPE 120.4 SIMA PEP Performed By: #### L503.6620 #### [facility] Laboratory [address] [place], [address] BASIC METABOLIC Collected: 03/01/2018 Status: F Source: GISSEL PROFILE (BMP) 2:07 PM [facility] REPOSITORY Order Comment: 'TROP' Serial specimen #1, [...] 10 Performed By: #### L500.2500, L501.4010 #### [facility] Laboratory [address] [facility] [place], [address] TROPONIN-I Collected: 03/01/2018 Status: F Source: FULTS 2:07 PM [facility] REPOSITORY Order Comment: 'TROP' Serial specimen #1, #2, #3, or #4: 1 TYPE CODE TESTS RESULT OUT OF RANGE REFERENCE UNITS LAB L501.4010 <0.06 ng/mL Normal 0.02 TROPONIN-I Result Comment: TROPONIN-I EXPECTED VALUES <0.05 NEGATIVE 0.06 - 0.59 AT RISK OF OK > OR = 0.60 SUGGEST OK Performed By: #### L500.2500, L501.4010 #### [facility] [address] [facility] [place], [place], [address] 12 LEAD EKG PERFORMED Observed: 03/01/2018 Status: F Source: FULTS BY [facility] 1:21 PM [facility] REPOSITORY [facility] [address] [place] [address] 12 Lead EKG performed by [facility] 03/01/18 1320 MR#: [id number] Acct: [id number] Name: JIMENEZ WYNN Rep #: [id number] : 1935 82 From: Charly Ross MD Attending Dr: Charly Ross MD Status: REG AMB Ordering Dr: Charly Ross MD Date: 03/01/18 Location: [facility] Sex: F C Admitted: BMS/12 Lead EKG performed by [facility] ECG Report Interpretation Supraventricular Tachycardia Leftward axisPoor R wave progressionElectronically signed on 03/01/2018 at 13:45 by Charly Ross 03/01/18 1348 Date Charly Ross MD CC: Tracy Benja DO Date Dictated: 03/01/181319 Date Transcribed: 03/01/181319 Crimper Assembler: PM Signed BASIC METABOLIC Collected: 01/21/2018 Status: F Source: FULTS PROFILE (BMP) 6:10 AM [facility] REPOSITORY Order Comment: 204 TYPE CODE TESTS [...] 8 GAP Performed By: #### L500.2500 #### [facility] Laboratory [address] [place], [address] CBC W/DIFF, AUTOMATED Collected: 01/18/2018 Status: F Source: GISSEL 6:30 AM [facility] REPOSITORY Order Comment: ROOM 204 [place] TYPE [...] Lymph 1.57 Performed By: #### L100.0100 #### [facility] Laboratory [address] [place], [address] COMPREHENSIVE METABOLIC Collected: 01/18/2018 Status: F Source: GISSEL [place] 6:30 AM [facility] REPOSITORY Order Comment: ROOM 204 [place] TYPE [...] Performed By: #### L500.4050, L500.4100, L501.9520 #### [facility] [address] [place], [place], [address] LIPID PROFILE Collected: 01/18/2018 Status: F Source: GISSEL 6:30 AM [facility] REPOSITORY Order Comment: ROOM 204 [place] TYPE [...] Performed By: #### L500.4050, L500.4100, L501.9520 #### [facility] [address] [facility] [place], [place], [address] THYROID STIM HORMONE Collected: 01/18/2018 Status: F Source: GISSEL (TSH) 6:30 AM [facility] REPOSITORY Order Comment: ROOM 204 [place] TYPE CODE TESTS RESULT OUT OF RANGE REFERENCE UNITS LAB L501.9520 0.358-3.74 uIU/mL Normal TSH 1.77 Performed By: #### L500.4050, L500.4100, L501.9520 #### [facility] [address] [place], [place], [address] HEMOGLOBIN A1C Collected: 01/18/2018 Status: F Source: GISSEL 6:30 AM [facility] REPOSITORY Order Comment: ROOM 204 [place] TYPE CODE TESTS RESULT OUT OF RANGE REFERENCE UNITS LAB L501.9985 4.2-6.3 % High HGB A1C 9.1 Performed By: #### L501.9985 #### [facility] [address] [place], [address] VITAMIN D,25 HYDROXY Collected: 01/18/2018 Status: F Source: GISSEL 6:30 AM [facility] REPOSITORY Order Comment: ROOM 204 [place] TYPE CODE TESTS RESULT OUT OF RANGE REFERENCE UNITS LAB L506.1000 29.95-100.01 ng/mL Normal Vitamin D 53.1 25-OH Result Comment: Vitamin D 25(OH) Status Range Deficiency <20 ng/mL (50nmol/L) Insuffciency 20 - 30 ng/mL (50 - 75 nmol/L) Sufficiency 30 - 100 ng/mL (75 - 250 nmol/L) Toxicity >100 ng/mL (>250 nmol/L) Performed By: #### L506.1000 #### [facility] Laboratory [address] [place], [address] ALLERGIES ALLERGIES DATE TYPE / NAME / CODE REACTION SEVERITY SOURCE CODE 09/15/2018 Drug hydrocodone Chest tightness Unknown [place] Allergy/41 bitartrate/[id number] [facility] [id number]( 1555(RXNORM) [facility]) Repository 09/15/2018 Drug Penicillins/F0010 Rash Unknown [place] Allergy/41 75969(RXNORM) [facility] [id number]([facility]) Repository 09/15/2018 Drug Sulfa Unknown Unknown [place] Allergy/41 (Sulfonamide [facility] [id number]( Antibiotics)/F001 [facility]) 159351(RXNORM) Repository 09/15/2018 Drug Latex, Natural Rash Unknown [place] Allergy/41 Rubber/[id number] [facility] 4930086( (RXNORM) [facility]) Repository 09/15/2018 Drug codeine/[id number] HEART ATTACK SV [place] Allergy/41 0(RXNORM) [facility] 6873579([facility]) Repository 09/15/2018 Drug acetaminophen/F00 Chest tightness Unknown [place] Allergy/41 6258762(RXNORM) [facility] 5060821([facility]) Repository 09/15/2018 Drug adhesive Other Unknown [place] Allergy/41 tape/[id number]([facility] 6235922[facility] Rep[facility] 09/15/2018 Drug citalopram/I72619 Unknown Unknown [place] Allergy/41 5106(RXNORM) [facility] 3159800([facility]) Repository 09/15/2018 Drug levofloxacin/F006 Anaphylaxis SV [place] Allergy/41 206403(RXNORM) [facility] 2626375([facility]) Repository ENCOUNTERS ENCOUNTERS ADMIT/DISCHARGE ACCOUNT ADMITTING ENCOUNTER LOCATION SOURCE NUMBER CLASS 11/29/2018 [id number] Ambulatory [place] 4 [facility] Hospital ing:OLS.[facility] Repository R 11/23/2018 [id number] Ambulatory [place] [address] [facility] ing:OLS.LCA Repository R 11/22/2018 [id number] Ambulatory [place]issel [place] [address] [facility] ing:OLS.[facility]LCA Repository R 11/15/2018 [id number] Ambulatory [place] Gissel 8 [facility] Hospital ing:OLS.LCA Repository R 11/12/2018 [id number] Ambulatory [place] 6 [facility] Hospital ing: Repository 11/08/2018 [id number] Ambulatory Gissel [place] 2 [facility] Hospital ing:OLS.[facility]LCA Repository R 11/01/2018 [id number] Ambulatory Gissel [place] 8 [facility] Hospital ing:OLS.[facility]LCA Repository R 10/27/2018/ [id number] Ambulatory [place] 8 1 [facility] Hospital ing: Repository 10/25/2018 [id number] Ambulatory [place] Gissel 0 [facility] Hospital ing:OLS.[facility]LCA Repository R 10/18/2018 [id number] Ambulatory [place] 0 [facility] Hospital ing:OLS.[facility]LCA Repository R 10/13/2018 [id number] Ambulatory BMSBuilding:W [place] 8 [facility] Repository 10/11/2018 [id number] Ambulatory [place] 1 [facility] Hospital ing:OLS.LTC Repository C 10/04/2018 [id number] Ambulatory Giss[place] 6 [facility] Hospital ing:OLS.LTC Repository C 09/27/2018 [id number] Ambulatory [place] 3 [facility] Hospital ing:PARK.[facility] Repository C 09/22/2018 [id number] Ambulatory [place] 5 [facility] Hospital ing:PARK.[facility] Repository C 09/15/2018/ [id number] [place], Inpatient [place] Gissel 8 4 Ghasem Encounter [facility] ing:PCURoom: Repository QDM303Kne: 1 09/15/2018 [id number] [place], Ambulatory BMSBuilding:B [place] 8 [place] Repository 09/15/2018 [id number] [place], Ambulatory BMSBuilding:B [place] 8 [place] [facility] Repository 09/15/2018 [id number] [place], Ambulatory BMSBuilding:B [place] 8 [place] [facility] Repository 09/15/2018 [id number] [place]helf, Ambulatory BMSBuilding:B [place] 1 [place].[facility] Repository 09/15/2018 [id number] Ashelf, Ambulatory BMSBuilding:B [place] 9 [place] [facility] Repository 09/15/2018 [id number] Ashelf, Ambulatory BMSBuilding:B [place] 6 [place].[facility] Repository 09/15/2018 [id number] Ashelf, Ambulatory BMSBuilding:B [place] 8 [place] [facility] Repository 09/15/2018 [id number] Ashelf, Ambulatory BMSBuilding:B [place] 9 [place].[facility] Repository 09/15/2018 [id number] Ashelf, Ambulatory BMSBuilding:B [place] 0 [place] Repository 09/15/2018 [id number] Ashelf, Ambulatory BMSBuilding:B [place] 7 [place] [facility] Repository 09/15/2018 [id number] Ambulatory [place] 1 [facility] Hospital ing:[facility] Repository S 09/13/2018 [id number] Ambulatory [place] 1 [facility] Hospital ing:PARK.[facility] Repository C 09/10/2018 [id number] Ambulatory [place] 4 [facility] Hospital ing:OLS.[facility] Repository C 09/08/2018/ [id number] Ambulatory [place] 8 0 [facility] Hospital ing: Repository 09/08/2018 [id number] Ambulatory BMSBuilding:W [place] 4 [facility] Hospital Repository 09/08/2018 [id number] Ambulatory [place] 4 [facility] Hospital ing:OLS.[facility] Repository C 09/06/2018 [id number] Ambulatory [place] Gissel 9 [facility] Hospital ing:OLS.[facility] Repository C 09/03/2018 [id number] Ambulatory [place] 3 [facility] Hospital ing:OLS.[facility] Repository C 08/31/2018 [id number] Ambulatory [place] 0 [facility] Repository C 08/30/2018/ [id number] Ambulatory BMSBuilding:B [place] 8 2 [facility] Repository 08/30/2018 [id number] Ambulatory [place] Gissel 8 [facility] Hospital ing:OLS.[facility] Repository C 08/28/2018 [id number] Ambulatory [place] 3 [facility] Hospital ing:OLS.[facility] Repository C 08/25/2018/ [id number] Ambulatory [place] 8 0 [facility] Hospital ing: Repository 08/25/2018 [id number] Ambulatory BMSBuilding:W [place] 8 [facility] Hospital Repository 08/24/2018 [id number] Ambulatory BMSBuilding:B [place] 9 [facility] Hospital Repository 08/23/2018 [id number] Ambulatory [place] 0 [facility] Hospital ing:OLS.[facility] Repository C 08/20/2018/ [id number] Ambulatory BMSBuilding:B [place] 8 7 [facility] Repository 08/16/2018 [id number] Ambulatory Giss[place] 1 [facility] Hospital ing:OLS.[facility] Repository C 08/11/2018 [id number] Ambulatory [place] Gissel [address] [facility] ing:PARK.[facility] Repository C 08/09/2018 [id number] Ambulatory [place] Gissel [address] [facility] ing:PARK.[facility] Repository C 07/20/2018/ [id number] [place], [place] Inpatient [place]issel [place] 8 3 [facility] ing:PCURoom: Repository [id number]: 1 07/20/2018 [id number] [place], [place] Ambulatory BMSBuilding:B [place] 9 [facility] Repository 07/20/2018 [id number] [place], [place] Ambulatory BMSBuilding:B [place] 7 [facility] Repository 07/20/2018 [id number] [place], [place] Ambulatory BMSBuilding:B [place] 7 [facility] Repository 07/20/2018 [id number] [place], [place] Ambulatory BMSBuilding:B [place] 4 [facility] Repository 07/20/2018 [id number] [place], [place] Ambulatory BMSBuilding:B [place] 6 [facility] Repository 07/20/2018 [id number] [place], [place] Ambulatory BMSBuilding:B [place] 3 [facility] Repository 07/20/2018 [id number] [place], [place] Ambulatory BMSBuilding:B [place] 2 [facility] Repository 07/20/2018 [id number] [place], [place] Ambulatory BMSBuilding:B [place] 1 [facility] Repository 07/20/2018 [id number] [place], [place] Ambulatory BMSBuilding:B [place] 9 [facility] Repository 07/20/2018 [id number] [place], [place] Ambulatory BMSBuilding:B [place] 5 [facility] 07/20/2018 [id number] [place], [place] Ambulatory BMSBuilding:[facility] [place] [facility] 07/20/2018 [id number] [place], [place] Ambulatory BMSBuilding:B [place] 2 [facility] Repository 07/20/2018 [id number] [place], [place] Ambulatory BMSBuilding:B [place] 3 [facility] Repository 07/20/2018 [id number] [place], [place] Ambulatory BMSBuilding:B [place] 3 [facility] Repository 07/20/2018 [id number] [place], [place] Ambulatory BMSBuilding:B [place] 5 [facility] Repository 07/20/2018 [id number] [place], [place] Ambulatory BMSBuilding:B [place] 6 [facility] Repository 07/20/2018 [id number] [place], [place] Ambulatory BMSBuilding:B [place] 0 [facility] Repository 07/20/2018 [id number] [place], [place] Ambulatory BMSBuilding:B [place] 1 [facility] Repository 07/20/2018 [id number] [place], [place] Ambulatory BMSBuilding:B [place] 0 [facility] Repository 07/20/2018 [id number] [place], [place] Ambulatory BMSBuilding:B [place] 7 [facility] Repository 07/20/2018 [id number] [place], [place] Ambulatory BMSBuilding:B [place] 0 [place]..[facility] Repository 07/20/2018 [id number] [place], [place] Ambulatory BMSBuilding:B [place] 3 [facility]..[facility] Repository 07/20/2018 [id number] [place], [place] Ambulatory BMSBuilding:B [place] 8 [facility] Repository 07/20/2018 [id number] [place], [place] Ambulatory BMSBuilding:B [place] 8 [place].[facility] Repository 07/20/2018 [id number] [place], [place] Ambulatory BMSBuilding:B [place] 3 [facility] Repository 07/20/2018 [id number] [place], [place] Ambulatory BMSBuilding:B [place] 7 [facility] Repository 07/20/2018 [id number] [place], [place] Ambulatory BMSBuilding:B [place] 0 [facility] Repository 07/20/2018 [id number] [place], [place] Ambulatory BMSBuilding:B [place] 7 [facility] Repository 07/20/2018 [id number] [place], [place] Ambulatory BMSBuilding:B [place] 8 [facility] Repository 07/20/2018 [id number] [place], [place] Ambulatory BMSBuilding:B [place] 1 [facility] 07/20/2018 [id number] [place], [place] Ambulatory BMSBuilding:B [place] 0 [facility] Repository 07/20/2018 [id number] [place], [place] Ambulatory BMSBuilding:B [place] 3 [place]..[facility] Repository 07/20/2018 [id number] [place], [place] Ambulatory BMSBuilding:B [place] 8 [facility] Repository 07/20/2018 [id number] [place], [place] Ambulatory BMSBuilding:B [place] 5 [facility] Repository 07/20/2018 [id number] [place], [place] Ambulatory BMSBuilding:B [place] 5 [facility] Repository 07/20/2018 [id number] [place], [place] Ambulatory BMSBuilding:B [place] 2 MS.[facility] Repository 07/20/2018 [id number] [place], [place] Ambulatory BMSBuilding:B [place] 4 [facility] Repository 07/20/2018 [id number] [place], [place] Ambulatory BMSBuilding:B [place] 4 [facility] Repository 07/20/2018 [id number] [place], [place] Ambulatory BMSBuilding:B [place] 7 [facility] 07/20/2018 [id number] [place], [place] Ambulatory BMSBuilding:B [place] 4 [facility] Repository 07/20/2018 [id number] [place], [place] Ambulatory BMSBuilding:B [place] 8 [facility] Repository 07/20/2018 [id number] [place], [place] Ambulatory BMSBuilding:B [place] 9 [facility] Repository 07/20/2018 [id number] [place], [place] Ambulatory BMSBuilding:B [place] 9 [facility] Repository 07/20/2018 [id number] [place], [place] Ambulatory BMSBuilding:B [place] 0 [facility] Repository 07/20/2018 [id number] [place], [place] Ambulatory BMSBuilding:B [place] 1 [facility] Repository 07/20/2018/ [id number] Ambulatory BMSBuilding:W [place] 8 6 [facility] Repository 07/20/2018/ [id number] Ambulatory BMSBuilding:W [place] 8 6 [facility] Repository 07/07/2018 [id number] Ambulatory [place] [address] [facility] ing:PARK.[facility] Repository N 06/17/2018 [id number] Ambulatory BMSBuilding:B [place] 0 [facility] Repository 06/09/2018 [id number] Ambulatory [place] 1 [facility] Hospital ing:OLS.[facility] Repository N 06/04/2018/ [id number] Emergency Gissel [place] [address] [facility] ing:ED Repository 05/26/2018/ [id number] Ambulatory BMSBuilding:B [place] 8 4 [facility] Repository 05/09/2018/ [id number] Jone Olivares Inpatient [place] 8 6 [facility] ing:PCURoom: Repository [id number]: 1 05/09/2018 [id number] Jone Olivares Ambulatory BMSBuilding:B [place] 0 [facility] Repository 05/09/2018/ [id number] Ambulatory BMSBuilding:W [place] 8 4 [facility] Repository 05/08/2018 [id number] Jone Olivares Ambulatory BMSBuilding:B [place] 9 [facility] Repository 05/08/2018 [id number] Jone Olivares Ambulatory BMSBuilding:W [place] 1 [facility] Repository 04/14/2018 [id number] Ambulatory [place] [address] [facility] ing:OLS.[facility]BE Repository N 03/01/2018/ [id number] [place], Inpatient Giss[place] 8 9 [place]has[place] Encounter [facility] ing:PCURoom: Repository [id number]: 1 03/01/2018 [id number] [place], Ambulatory BMSBuilding:B [place] 9 [place] [facility] Repository 03/01/2018 [id number] [place], Ambulatory BMSBuilding:B [place] 2 [place] [facility] Repository 03/01/2018 [id number] [place], Ambulatory BMSBuilding:B [place] 2 [place] MS.[facility] Repository 03/01/2018 [id number] [place], Ambulatory BMSBuilding:B [place] 7 [place] [facility] Repository 03/01/2018/ [id number] Ambulatory BMSBuilding:W [place] 8 1 [facility] Repository 03/01/2018/ [id number] Ambulatory BMSBuilding:W [place] 8 6 [facility] Repository 03/01/2018 [id number] Inpatient [place] Gissel [address] [facility] ing:ED Repository 03/01/2018/ [id number] Ambulatory BMSBuilding:B [place] 8 7 [facility] Repository 01/21/2018 [id number] Ambulatory [place] 5 [facility] Hospital ing:OLS.[facility] Repository N 01/18/2018 [id number] Ambulatory [place] 9 [facility] N 01/15/2018 [id number] Ambulatory BMSBuilding:B [place] 8 [facility] Repository PAYERS PAYERS ENCOUNTER GUARANTOR PAYER SUBSCRIBER SOURCE 11/29/2018 N [place] Primary NOT [place]IVENUNK [place] Insurance:SELF PAY [address] Number: [place] Date:2018-11-29 91641Okz: () 11/23/2018 N [place] Primary NOT GIVENUNK [place] Insurance:SELF PAY Community HEALTHY [id number] [facility] [address] Number: Effective [place] Date:2018-11-23 00032Yic: (HP) 11/22/2018 N [place] Primary NOT GIVENUNK [place] Insurance[place]SELF PAY [place] [id number] [facility] [address] Number: Effective [place] Date:2018-11-22 [id number]: (HP) 11/15/2018 N [place] Primary NOT GIVENUNK [place] Insurance:SELF PAY [facility] HEALTHY [address] Number: Effective [place] Date:2018-11-15 [id number]: (HP) 11/12/2018 N [place] Primary NOT GIVENUNK [place] Insurance:SELF PAY [facility] HEALTHY [id number] [facility] [address] Number: Effective Repository [place] Date:2018-11-02 15348Fdq: (HP) 11/08/2018 N [place] Primary N [place] Insurance:MEDICARE STARLINDOB: Community HEALTHY [id number] PART A [facility] [id number] Number: [place] [id number] 05848Tzo: (330) Date:2018-11-08 [phone] (HP) 11/08/2018 Secondary NOT GIVENUNK [place] Insurance:SELF PAY [facility] Number: Effective Repository Date:2018-11-08 11/01/2018 N [place] Primary N [place] Insurance:MEDICARE STARLINDOB: Community HEALTHY [id number] PART A [facility] [id number] State Health [facility] Number: [place] [id number]: (330) Date:2018-11-01 [phone] (HP) 11/01/2018 Secondary NOT GIVENUNK [place] Insurance:SELF PAY [facility] Number: Effective Repository Date:2018-11-01 10/27/2018 N [place] Primary N [place] Insurance:MEDICARE STARLINDOB: Community HEALTHY [id number] PART A [facility] [id number] State Health [facility] Number: [place] [id number] 18830Lri: (330) Date:2018-08-17 [phone] () 10/27/2018 Secondary NOT GIVENUNK [place] Insurance:SELF PAY [facility] Number: Effective Repository Date:2018-10-02 10/25/2018 N [place] Primary NOT GIVENUNK [place] Insurance:SELF PAY [facility] HEALTHY [id number] [facility] Number: Effective Repository [place] Date:2018-10-25 49168Rqe: () 10/18/2018 N [place] Primary N [place] Insurance:MEDICARE STARLINDOB: Community HEALTHY [id number] PART A [facility] [id number] State Health [facility] Number: Repository [address]JHOANKEELEYbox [place], [place] [id number] 65519Yyq: (330) Date:2018-10-18 [phone] () 10/18/2018 Secondary N [place] Insurance:RURAL STARLINDOB: Community CARRIER BENEFIT [id number] Center Number: Repository [id number] Date:4939-61-93PO CARA GREGOR LAGOS 72977BO: 10/18/2018 Tertiary NOT GIVENUNK [place] Insurance:SELF PAY [facility] Number: Effective Repository Date:2018-10-18 10/13/2018 N [place] Primary N [place] Insurance:MEDICARE STARLINDOB: Community HEALTHY [id number] PART A [facility] [id number] State Health [facility] Number: Repository RDNEW ULM MEDICAL CENTERHAIDERbox [place], [place] [id number] 88895Wim: (330) Date:2018-08-17 [phone] () 10/13/2018 Secondary NOT GIVENUNK [place] Insurance:SELF PAY [facility] Number: Effective Repository Date:2018-10-13 10/11/2018 N [place] Primary NOT GIVENUNK [place] Insurance:SELF PAY Community HEALTHY [id number] [facility] [address] Number: Effective Repository [place], [place] Date:2018-10-11 74090Axe: (HP) 10/04/2018 N [place] Primary NOT GIVENUNK [place] Insurance:SELF PAY Community HEALTHY [id number] [facility] [address] Number: Effective Rep[place] Date:2018-10-04 34246Ifr: (HP) 09/27/2018 N [place] Primary NOT GIVENUNK [place] Insurance:SELF PAY Community HEALTHY [id number] [facility] [address] Number: Effective [place] Date:2018-09-27 [phone]: (HP) 09/22/2018 N [place] Primary NOT GIVENUNK [place] Insurance:SELF PAY Community HEALTHY [id number] [facility] [address] Number: Effective [place] Date:2018-09-22 61233Uox: (HP) 09/15/2018 N [place] Primary N [place] Insurance:MEDICARE STARLINDOB: Community HEALTHY [id number] PART A BPolicy [id number] State Health [facility] Number: Repository [facility] [place] [id number] 485[address]Gpl: (220) Date:2018-09-15 [phone] (HP) 09/15/2018 Secondary N ELD[place] Insurance:AETNAPolic STARLINDOB: Community y Number: Effective [id number] Hospital Date:1642-78-07WC [address]ository [address] [place] [address]NN: 09/15/2018 Tertiary N ELDORA [place] Insurance:RURAL STARLINDOB: Community CARRIER BENEFIT [id number] Center Number: Repository [id number] Date:4558-60-79ZL [address] [address]XK: 09/15/2018 Tertiary NOT GIVENUNK [place] Insurance:SELF PAY [facility] Number: Effective Repository Date:2018-09-15 09/15/2018 ELDOR[place] Primary [place]LD[place]A [place] Insurance:MEDICARE STARLINDOB: Community HEALTHY [id number] PART A [facility] [id number] State Health [facility] Number: [place] [id number] 01819Kds: (330) Date:2018-09-1512 () 09/15/2018 Secondary ELDORA [place] Insurance:RURAL STARLINDOB: Community CARRIER BENEFIT [id number] Hospital PLANPolicy Number: Repository [id number] Date:9672-44-83WK [facility] [address] [address]LT: 09/15/2018 Tertiary NOT GIVENUNK [place] Insurance:SELF PAY [facility] Number: Effective Repository Date:2018-09-15 09/15/2018 ELDORA Primary [place]A [place] Insurance:MEDICARE STARLINDOB: Community HEALTHY [id number] PART A [facility] [id number] State Health [facility] Number: [place] [id number] [address]Qup: 330) Date:2018-09-1509 () 09/15/2018 Secondary ELDORA [place] Insurance:RURAL STARLINDOB: Community CARRIER BENEFIT [id number] Hospital PLANPolicy Number: Repository [id number] Date:8123-78-01FN [address] [address]TN: 09/15/2018 Tertiary NOT GIVENUNK [place] Insurance:SELF PAY [facility] Number: Effective Repository Date:2018-09-15 09/15/2018 N ELD[place] Primary N [place]LD[place] Insurance:MEDICARE STARLINDOB: Community HEALTHY [id number] PART A [facility] [id number] State Health [facility] Number: [place] [id number] [address]Wkz: (330) Date:2018-09-1570 () 09/15/2018 Secondary N ELDORA [place] Insurance:RURAL STARLINDOB: Community CARRIER BENEFIT [id number] [facility]Con[facility] Cent[facility] Number: Repository [id number] Date:1450-63-60JL [address] [address]JI: 09/15/2018 Tertiary NOT GIVENUNK [place] Insurance:SELF PAY Community [facility] Number: Effective Repository Date:2018-09-15 09/15/2018 N ELDOR[place] Primary N [place] Insurance:MEDICARE STARLINDOB: Community HEALTHY [id number] PART A [facility] [id number] Number: Repository RDJHOANKEELEYbox [place], [place] [id number] [id number]: (330) Date:2018-09-1582 () 09/15/2018 Secondary N ELDORA [place] Insurance:RURAL STARLINDOB: Community CARRIER BENEFIT [id number] Number: Repository [id number] Date:2297-58-71XH [address] [address]SV: 09/15/2018 Tertiary NOT GIVENUNK [place] Insurance:SELF PAY [facility] Number: Effective Repository Date:2018-09-15 09/15/2018 N [place] Primary N [place] Insurance:MEDICARE STARLINDOB: Community HEALTHY [id number] PART A [facility] [id number] Number: Repository [address]JHOANKEELEYbox [place], [place] [id number] [address]Owa: (330) Date:2018-09-155336 () 09/15/2018 Secondary N E[place] Insurance:RURAL STARLINDOB: Community CARRIER BENEFIT [id number] Number: Repository [id number] Date:6745-87-27[address] [place] [address]EF: 09/15/2018 Tertiary NOT GIVENUNK [place] Insurance:SELF PAY [facility] Number: Effective Repository Date:2018-09-15 09/15/2018 N ELD[place] Primary N [place] Insurance:MEDICARE STARLINDOB: Community HEALTHY [id number] PART A [facility] [id number] State Health [facility] Number: Repository [place] [id number] [phone]: (330) Date:2018-09-15 () 09/15/2018 Secondary N ELD[place] Insurance:RURAL STARLINDOB: Community CARRIER BENEFIT [id number] Hospital PLANPolicy Number: Repository [id number] Date:0441-55-36TK [address] [facility]ASC[facility] [place] [address]FO: 09/15/2018 Tertiary NOT GIVENUNK [place] Insurance:SELF PAY [facility] Number: Effective Repository Date:2018-09-15 09/15/2018 N E[place] Primary N [place] Insurance:MEDICARE STAR[place]INDOB: Community HEALTHY [id number] PART A [facility] [id number] State Health [facility] Number: [place]ository [place] [id number] [phone]: (330) Date:2018-09-1506 () 09/15/2018 Secondary N E[place] Insurance:RURAL STARLINDOB: Community CARRIER BENEFIT [id number] Hospital PLANPolicy Number: Repository [id number] Date:4274-19-14SY [address] [facility] [place] [address]IV: 09/15/2018 Tertiary NOT GIVENUNK [place] Insurance:SELF PAY [facility] Number: Effective Repository Date:2018-09-15 09/15/2018 N E[place] Primary N [place] Insurance:MEDICARE [place]OB: Community HEALTHY [id number] PART A [facility] [id number] State Health [facility] Number: Repository [place] [id number] [address]Fol: (330) Date:2018-09-15 (HP) 09/15/2018 Secondary N E[place] Insurance:RURAL STAR[place]OB: Community CARRIER BENEFIT [id number] Hospital PLANPolicy Number: Repository [id number] Date:6224-23-48[address] [place] [address]JY: 09/15/2018 Tertiary NOT GIVENUNK [place] Insurance:SELF PAY [facility] Number: Effective Repository Date:2018-09-15 09/15/2018 N ELD[place] Primary N [place] Insurance:MEDICARE STAR[place]OB: Community HEALTHY [id number] PART A [facility] [id number] State Health [facility] Number: Repository [facility]ENT[facility]LEYbox [place], [place] [id number]: 330) Date:2018-09-1560 () 09/15/2018 Secondary N ELD[place] Insurance:RURAL STAR[place]OB: Community CARRIER BENEFIT [id number] Hospital PLANPolicy Number: Repository [id number] Date:6880-90-03DL [facility] [address] [address]QI: 09/15/2018 Tertiary NOT GIVENUNK [place] Insurance:SELF PAY [facility] Number: Effective Repository Date:2018-09-15 09/15/2018 N ELD[place] Primary N [place] Insurance:MEDICARE STARLINDOB: Community HEALTHY [id number] PART A [facility] [id number] State Health [facility] Number: Repository [facility]PITALJHOANKEELEYbox [place], [place] [id number] [address]Kth: (330) Date:2018-09-1538 () 09/15/2018 Secondary N [place] Insurance:RURAL STAR[place]OB: Community CARRIER BENEFIT [id number] Hospital PLANPolicy Number: Repository [id number] Date:4646-82-68[address] [place] [address]BO: 09/15/2018 Tertiary NOT GIVENUNK [place] Insurance:SELF PAY Community [facility] Number: Effective Repository Date:2018-09-15 09/15/2018 N ELD[place] Primary NOT GIVENUNK [place] Insurance:SELF PAY Community HEALTHY [id number] [facility] [address] Number: Effective [place] Date:2018-09-15 [address]Coo: (HP) 09/13/2018 N ELD[place] Primary NOT GIVENUNK [place] Insurance:SELF PAY [facility] HEALTHY [id number] [place] [address] Number: Effective [place]ository [place] Date:2018-09-13 94[address]Odc: (HP) 09/10/2018 N E[place] Primary NOT GIVENUNK [place] Insurance:SELF PAY [facility] HEALTHY [id number] [facility] [address] Number: Effective Repository [place] Date:2018-09-10 [address]Kyi: () 09/08/2018 ELD[place] Primary [place] Insurance:MEDICARE STAR[place]OB: Community HEALTHY [id number] PART A [facility] [id number] State Health [facility] Number: Repository [place] [id number] [address]Rut: (664) Date:2018-08-17 [id number] () 09/08/2018 Secondary [place] Insurance:RURAL STAR[place]OB: Community CARRIER BENEFIT [id number] Center Number: Repository [id number] Date:3459-33-50VO[address] [address]MN: 09/08/2018 Tertiary NOT GIVENUNK [place] Insurance:[facility]LF [facility] Number: Effective Repository Date:2018-09-02 09/08/2018 N ELD[place] Primary N [place] Insurance:MEDICARE STAR[place]OB: Community HEALTHY [id number] PART A [facility] [id number] State Health [facility] Number: Repository [place] [id number] [address]Lfd: 330) Date:2018-08-17 [phone] () 09/08/2018 Secondary N E[place] Insurance:RURAL STAR[place]OB: Community CARRIER BENEFIT [id number] Center Number: Repository [id number] Date:5681-15-33WZ [address] [place] [address]PA: 09/08/2018 Tertiary NOT GIVENUNK [place] Insurance:SELF [facility]Y [facility] Number: Effective Repository Date:2018-09-08 09/08/2018 N [place] Primary NOT GIVENUNK [place] Insurance:SELF PAY [facility] HEALTHY [id number] [facility] [address] Number: Effective [place]ository [place] Date:2018-09-08 88[address]Thl: (HP) 09/06/2018 N [place] Primary NOT GIVENUNK [place] Insurance:SELF PAY [facility] HEALTHY [id number] [facility] [address] Number: Effective Repository [place] Date:2018-09-06 12787Qfp: (HP) 09/03/2018 N ELD[place] Primary NOT GIVENUNK [place] Insurance:SELF PAY [facility] HEALTHY [id number] [facility] [address] Number: Effective Repository [place] Date:2018-09-03 66[address]Dyn: (HP) 08/31/2018 E[place] Primary NOT GIVENUNK [place] Insurance:SELF PAY [facility] HEALTHY [id number] [facility] [address] Number: Effective Repository [place] Date:2018-08-31 72221Gkz: (HP) 08/30/2018 ELDOR[place] Primary [place] Insurance:MEDICARE STARLINDOB: [facility] HEALTHY [id number] PART A BPolicy [id number] State Health [facility] Number: Repository [place] [id number] [address]Czy: (934) Date:2018-08-20 [phone] (HP) 08/30/2018 Secondary E[place] Insurance:RURAL STAR[place]OB: Community CARRIER BENEFIT [id number] Center Number: Repository [id number] Date:0790-83-05NH [address] [place] [address]QI: 08/30/2018 Tertiary NOT GIVENUNK [place] Insurance:SELF PAY [facility] Number: Effective Repository Date:2018-08-20 08/30/2018 ELD[place] Primary NOT GIVENUNK [place] Insurance:SELF PAY [facility] HEALTHY [address] Number: Effective Repository [place] Date:2018-08-30 81221Wul: (HP) 08/28/2018 [place] Primary NOT GIVENUNK [place] Insurance:SELF PAY [facility] HEALTHY [address] Number: Effective Repository [place] Date:2018-08-28 40861Ria: (HP) 08/25/2018 ELDORA Primary [place] Insurance:MEDICARE STARLINDOB: Community HEALTHY [id number] PART A [facility] [id number] State Health [facility] Number: Repository GERALDNEW ULM MEDICAL CENTERHAIDERbox [place], [place] [id number] [address]Cwk: (631) Date:2018-08-17 [phone] () 08/25/2018 Secondary [place] Insurance:RURAL STARL[place]OB: Community CARRIER BENEFIT [id number] Center Number: Repository [id number] Date:7488-28-55ZL [facility] [address] [place] [address]DV: 08/25/2018 Tertiary NOT GIVENUNK [place] Insurance:SELF PAY [facility] Number: Effective Repository Date:2018-08-17 08/25/2018 ELDORA Primary E[place] Insurance:MEDICARE STARLINDOB: Community HEALTHY [id number] PART A [facility] [id number] State Health [facility] Number: Repository [address] [place], [place] [id number] [address]Bjy: (826) Date:2018-08-17 [phone] () 08/25/2018 Secondary ELD[place]A [place] Insurance:RURAL STAR[place]OB: Community CARRIER BENEFIT [id number] Center Number: Repository [id number] Date:0958-62-33YF [address] [place] [address]PN: 08/25/2018 Tertiary NOT GIVENUNK [place] Insurance:SELF PAY [facility] Number: Effective Repository Date:2018-08-25 08/24/2018 ELDORA Primary [place] Insurance:MEDICARE STARL[place]OB: Community HEALTHY [id number] PART A [facility] [id number] State Health [facility] Number: Repository [place] [id number] [address]Tjw: (828) Date:2018-08-10 [phone] () 08/24/2018 Secondary ELD[place] Insurance:RURAL STARLINDOB: Community CARRIER BENEFIT [id number] Medical Center/[facility] Clairey Number: Repository [id number] Date:1107-72-75HN [address] [place] [address]JN: 08/24/2018 Tertiary NOT GIVENUNK [place] Insurance:SELF PAY [facility] Number: Effective Repository Date:2018-08-20 08/23/2018 ELD[place] Primary NOT GIVENUNK [place] Insurance:SELF PAY [facility] HEALTHY [id number] [place] [address] Number: Effective [place] Date:2018-08-23 52202Atj: () 08/20/2018 ELDORA Primary [place] Insurance:MEDICARE STARLINDOB: Community HEALTHY [id number] PART A [facility] [id number] State Health [facility] Number: Repository [place] [id number] 350[address]Wfk: (293) Date:2018-08-10 [phone] () 08/20/2018 Secondary [place] Insurance:RURAL STARL[place]OB: Community CARRIER BENEFIT [id number] Center Number: Repository [id number] Date:1198-69-79GP [address] [place] [address]HR: 08/20/2018 Tertiary NOT GIVENUNK [place] Insurance:SELF PAY [facility] Number: Effective Repository Date:2018-08-10 08/16/2018 ELD[place] Primary NOT GIVENUNK [place] Insurance:SELF PAY Community HEALTHY [id number] [facility] [address] Number: Effective Rep[place] [facility] [place] Date:2018-08-16 755[address]Jua: () 08/11/2018 ELD[place] Primary NOT GIVENUNK [place] Insurance:SELF PAY [facility] HEALTHY [id number] [facility] [address] Number: Effective [place]ository [place] Date:2018-08-11 52299Vqc: (HP) 08/09/2018 E[place] Primary NOT GIVENUNK [place] Insurance:SELF PAY [facility] HEALTHY [id number] [facility] [address] Number: Effective Repository [facility] [place] Date:2018-08-09 567[address]Gek: () 07/20/2018 ELDORA Primary [place] Insurance:MEDICARE STARL[place]OB: Community HEALTHY [id number] PART A [facility] [id number] State Health [facility] Number: Repository [place] [id number] [address]Fmx: (330) Date:2018-07-20 [phone] () 07/20/2018 Secondary [place] Insurance:RURAL STAR[place]OB: Community CARRIER BENEFIT [id number] Center Number: Repository [id number] Date:9408-68-25HY [address]ASCENSION [place] [address]CO: 07/20/2018 Tertiary NOT GIVENUNK [place] Insurance:SELF PAY [facility] Number: Effective Repository Date:2018-07-20 07/20/2018 ELD[place] Primary [place] Insurance:MEDICARE [place]OB: Community HEALTHY [id number] PART A [facility] [id number] State Health [facility] Number: Repository [place] [id number] [address]Rtw: (330) Date:2018-07-20 () 07/20/2018 Secondary ELD[place] Insurance:RURAL STAR[place]OB: Community CARRIER BENEFIT [id number] Center Number: Repository [id number] Date:3873-31-77GU [address] [place] [address]YS: 07/20/2018 Tertiary NOT GIVENUNK [place] Insurance:SELF PAY [facility] Number: Effective Repository Date:2018-07-20 07/20/2018 ELDORA Primary [place] Insurance:MEDICARE [place]AR[place]OB: Community HEALTHY [id number] PART A [facility] [id number] State Health [facility] Number: Repository RDMIRNAbox [place], [place] [id number] [phone]: 330) Date:2018-07-20 () 07/20/2018 Secondary ELD[place]A [place] Insurance:RURAL STAR[place]OB: Community CARRIER BENEFIT [id number] Number: Repository [id number] Date:4751-08-65YQ [address] [place] [address]HQ: 07/20/2018 Tertiary NOT GIVENUNK [place] Insurance:SELF PAY [facility] Number: Effective Repository Date:2018-07-20 07/20/2018 ELDORA Primary [place] Insurance:MEDICARE STAR[place]OB: Community HEALTHY [id number] PART A [facility] [id number] State Health [facility] Number: Repository [address] [place], [place] [id number] [address]Ojt: 330) Date:2018-07-20 [phone] () 07/20/2018 Secondary ELD[place]A [place] Insurance:RURAL STAR[place]OB: Community CARRIER BENEFIT [id number] Number: Repository [id number] Date:3646-83-20QF [address] [address]MY: 07/20/2018 Tertiary NOT GIVENUNK [place] Insurance:SELF PAY [facility] Number: Effective Repository Date:2018-07-20 07/20/2018 ELDORA Primary [place] Insurance:MEDICARE STAR[place]OB: Community HEALTHY [id number] PART A [facility] [id number] State Health [facility] Number: Repository [place] [id number] [address]Bif: (330) Date:2018-07-20 () 07/20/2018 Secondary ELDORA [place] Insurance:RURAL STARL[place]OB: Community CARRIER BENEFIT [id number] PLANBanner Cardon Children'S Medical Centericy Number: Repository [id number] Date:6117-01-94BC [address] [address]HY: 07/20/2018 Tertiary NOT GIVENUNK [place] Insurance:SELF PAY [facility] Number: Effective Repository Date:2018-07-20 07/20/2018 ELDORA Primary [place] Insurance:MEDICARE STAR[place]OB: Community HEALTHY [id number] PART A [facility] [id number] State Health [facility] Number: Repository [place] [id number] [phone]: (330) Date:2018-07-20 () 07/20/2018 Secondary [place] Insurance:RURAL STARLINDOB: Community CARRIER BENEFIT [id number] Center Number: Repository [id number] Date:6681-50-16XM [address] [place] [address]SW: 07/20/2018 Tertiary NOT GIVENUNK [place] Insurance:SELF PAY [facility] Number: Effective Repository Date:2018-07-20 07/20/2018 ELDORA Primary [place] Insurance:MEDICARE STARLINDOB: Community HEALTHY [id number] PART A [facility] [id number] State Health [facility] Number: Repository [place] [id number] [phone]: (330) Date:2018-07-20 () 07/20/2018 Secondary [place]A [place] Insurance:RURAL STARLINDOB: Community CARRIER BENEFIT [id number] Hospital PLANPolicy Number: Repository [id number] Date:5598-57-38QE [address] [place] [address]ME: 07/20/2018 Tertiary NOT GIVENUNK [place] Insurance:SELF PAY [facility] Number: Effective Repository Date:2018-07-20 07/20/2018 ELDORA Primary [place] Insurance:MEDICARE STARLINDOB: Community HEALTHY [id number] PART A [facility] [id number] Number: Repository [place] [id number] [address]Tkg: (092) Date:2018-07-2032 () 07/20/2018 Secondary ELDORA [place] Insurance:RURAL STARLINDOB: Community CARRIER BENEFIT [id number] [place] [address] PLANPolicy Number: Repository [id number] Date:5722-11-73XQ [facility] [address] [address]VU: 07/20/2018 Tertiary NOT GIVENUNK [place] Insurance:SELF PAY [facility] Number: Effective Repository Date:2018-07-20 07/20/2018 ELDORA Primary [place] Insurance:MEDICARE STARLINDOB: Community HEALTHY [id number] PART A [facility] [id number] Number: Repository [place] [id number] [address]Eri: (768) Date:2018-07-20 () 07/20/2018 Secondary [place] Insurance:RURAL STARLINDOB: Community CARRIER BENEFIT [id number] Number: Repository [id number] Date:2523-84-37LH [address] [place] [address]GA: 07/20/2018 Tertiary NOT GIVENUNK [place] Insurance:SELF PAY [facility] Number: Effective Repository Date:2018-07-20 07/20/2018 ELDORA Primary [place] Insurance:MEDICARE STARLINDOB: Community HEALTHY [id number] PART A [facility] [id number] Number: Repository [place] [id number] [address]Isj: (330) Date:2018-07-20 () 07/20/2018 Secondary ELDORA [place] Insurance:RURAL STARLINDOB: Community CARRIER BENEFIT [id number] PLANPolicy Number: Repository [id number] Date:6272-50-68[address] [place] [place] [address]XV: 07/20/2018 Tertiary NOT GIVENUNK [place] Insurance:SELF PAY [facility] Number: Effective Repository Date:2018-07-20 07/20/2018 ELDORA Primary [place] Insurance:MEDICARE STARLINDOB: Community HEALTHY [id number] PART A [facility] [id number] State Health [facility] Number: Repository [place] [id number] [address]Fag: (330) Date:2018-07-20 () 07/20/2018 Secondary ELDORA [place] Insurance:RURAL STARLINDOB: Community CARRIER BENEFIT [id number] PLANPolicy Number: Repository [id number] Date:9395-95-45NI [address] [place] [address]KE: 07/20/2018 Tertiary NOT GIVENUNK [place] Insurance:SELF PAY [facility] Number: Effective Repository Date:2018-07-20 07/20/2018 ELDORA Primary [place] Insurance:MEDICARE STARLINDOB: Community HEALTHY [id number] PART A [facility] [id number] State Health [facility] Number: Repository [place] [id number] [address]Hdc: (330) Date:2018-07-20 () 07/20/2018 Secondary ELDORA [place] Insurance:RURAL STARLINDOB: Community CARRIER BENEFIT [id number] Hospital PLANPolicy Number: Repository [id number] Date:6638-81-79Q[address] [place] [address]XU: 07/20/2018 Tertiary NOT GIVENUNK [place] Insurance:SELF PAY Community [facility] Number: Effective Repository Date:2018-07-20 07/20/2018 ELDORA Primary [place] Insurance:MEDICARE STARLINDOB: Community HEALTHY [id number] PART A [facility] 1982-29-84MROPenn State Health [facility] Number: Rep[place] [id number] [address]Rnw: (330) Date:2018-07-20 () 07/20/2018 Secondary [place] Insurance:RURAL STARLINDOB: Community CARRIER BENEFIT [id number] Hospital PLANPolicy Number: Repository [id number] Date:0593-35-26TQ [facility] [address] [address]KT: 07/20/2018 Tertiary NOT GIVENUNK [place] Insurance:SELF PAY Community [facility] Number: Effective Repository Date:2018-07-20 07/20/2018 ELDORA Primary [place] Insurance:MEDICARE STARLINDOB: Community HEALTHY [id number] PART A [facility] [id number] State Health [facility] Number: [place] [id number] [address]Cxo: 330) Date:2018-07-20 () 07/20/2018 Secondary [place]A [place] Insurance:RURAL STARLINDOB: Community CARRIER BENEFIT [id number] Hospital PLANPolicy Number: Repository [id number] Date:0999-49-43HN [address] [address]YD: 07/20/2018 Tertiary NOT GIVENUNK [place] Insurance:SELF PAY Community [facility] Number: Effective Repository Date:2018-07-20 07/20/2018 ELDORA Primary [place] Insurance:MEDICARE STARLINDOB: Community HEALTHY [id number] PART A [facility] [id number] State Health [facility] Number: Repository [place] [id number] [address]Msp: (330) Date:2018-07-20 () 07/20/2018 Secondary ELDORA [place] Insurance:RURAL STARLINDOB: Community CARRIER BENEFIT [id number] Hospital PLANPolicy Number: Repository [id number] Date:0455-95-52IU [address] [place] [address]UP: 07/20/2018 Tertiary NOT GIVENUNK [place] Insurance:SELF PAY [facility] Number: Effective Repository Date:2018-07-20 07/20/2018 ELDORA Primary [place] Insurance:MEDICARE STARLINDOB: Community HEALTHY [id number] PART A [facility] [id number] State Health [facility] Number: [place]ository [place] [id number] [address]Upi: 330) Date:2018-07-2012 () 07/20/2018 Secondary ELDORA [place] Insurance:RURAL STARLINDOB: Community CARRIER BENEFIT [id number] Memorial HospitalPolicy Number: Repository [id number] Date:2377-14-70JM [facility] [address] [address]WN: 07/20/2018 Tertiary NOT GIVENUNK [place] Insurance:SELF PAY [facility] Number: Effective Repository Date:2018-07-20 07/20/2018 ELDORA Primary [place] Insurance:MEDICARE STARLINDOB: Community HEALTHY [id number] PART A [facility] [id number] State [facility] Number: [place] [id number] [address]Kni: (330) Date:2018-07-20 47845 () 07/20/2018 Secondary ELDORA [place] Insurance:RURAL STARLINDOB: Community CARRIER BENEFIT [id number] Hospital PLANPolicy Number: Repository [id number] Date:3479-44-93HB [facility] [address] [place] [address]ZP: 07/20/2018 Tertiary NOT GIVENUNK [place] Insurance:SELF PAY [facility] Number: Effective Repository Date:2018-07-20 07/20/2018 ELDORA Primary [place] Insurance:MEDICARE STARLINDOB: Community HEALTHY [id number] PART A [facility] [id number] State Health [facility] Number: Rep[place] [id number] [address]Wii: (330) Date:2018-07-20 () 07/20/2018 Secondary ELDORA [place] Insurance:RURAL STARLINDOB: Community CARRIER BENEFIT [id number] Hospital PLANPolicy Number: Repository [id number] Date:3190-19-16LC [address] [place] [address]OF: 07/20/2018 Tertiary NOT GIVENUNK [place] Insurance:SELF PAY [facility] Number: Effective Repository Date:2018-07-20 07/20/2018 ELDORA Primary E[place]A [place] Insurance:MEDICARE STARLINDOB: Community HEALTHY [id number] PART A [facility] 8232-04-90SCWPenn State Health [facility] Number: Repository [place] [id number] [address]Ixb: (330) Date:2018-07-20 () 07/20/2018 Secondary ELDORA [place] Insurance:RURAL STARLINDOB: Community CARRIER BENEFIT [id number] Number: Repository [id number] Date:5872-55-33XM [address] [place] [address]PC: 07/20/2018 Tertiary NOT GIVENUNK [place] Insurance:SELF PAY [facility] Number: Effective Repository Date:2018-07-20 07/20/2018 ELDORA Primary ELD[place]A [place] Insurance:MEDICARE STARLINDOB: Community HEALTHY [id number] PART A [facility] 0787-38-30PTUPenn State Health [facility] Number: Rep[place] [id number] [address]Iir: (330) Date:2018-07-20 () 07/20/2018 Secondary ELDORA [place] Insurance:RURAL STARLINDOB: Community CARRIER BENEFIT [id number] Hospital PLANPolicy Number: Repository [id number] Date:1189-81-40ZY [address] [address]AV: 07/20/2018 Tertiary NOT GIVENUNK [place] Insurance:SELF PAY Community [facility] Number: Effective Repository Date:2018-07-20 07/20/2018 ELDORA Primary [place] Insurance:MEDICARE STARLINDOB: Community HEALTHY [id number] PART A [facility] 8360-05-06KUIPenn State Health [facility] Number: [place] [id number] [address]Znw: (175) Date:2018-07-20 () 07/20/2018 Secondary ELDORA [place] Insurance:RURAL STARLINDOB: Community CARRIER BENEFIT [id number] PLANPolicy Number: Repository [id number] Date:9605-19-61PV [facility] [address] [address]AL: 07/20/2018 Tertiary NOT GIVENUNK [place] Insurance:SELF PAY [facility] Number: Effective Repository Date:2018-07-20 07/20/2018 ELDORA Primary ELDORA [place] Insurance:MEDICARE STARLINDOB: Community HEALTHY [id number] PART A [facility] [id number] Number: Repository [place] [id number] [phone]: 330) Date:2018-07-20 () 07/20/2018 Secondary ELDORA [place] Insurance:RURAL STARLINDOB: Community CARRIER BENEFIT [id number] PLANPolicy Number: Repository [id number] Date:7626-45-13DW [address] [address]RW: 07/20/2018 Tertiary NOT GIVENUNK [place] Insurance:SELF PAY [facility] Number: Effective Repository Date:2018-07-20 07/20/2018 ELDORA Primary E[place] Insurance:MEDICARE STARLINDOB: Community HEALTHY [id number] PART A [facility] [id number] Number: Repository [place] [id number] [address]Jdt: (330) Date:2018-07-20 () 07/20/2018 Secondary ELDORA [place] Insurance:RURAL STARLINDOB: Community CARRIER BENEFIT [id number] PLANPolicy Number: Repository [id number] Date:1964-80-36IM [address] [place] [address]KM: 07/20/2018 Tertiary NOT GIVENUNK [place] Insurance:SELF PAY [facility] Number: Effective Repository Date:2018-07-20 07/20/2018 ELDORA Primary E[place] Insurance:MEDICARE STARLINDOB: Community HEALTHY [id number] PART A [facility] [id number] State Health [facility] Number: Repository [place] [id number] [phone]: (330) Date:2018-07-20 () 07/20/2018 Secondary ELDORA [place] Insurance:RURAL STARL[place]OB: Community CARRIER BENEFIT [id number] PLANPolicy Number: Repository [id number] Date:4874-86-41MY [address] [place] [address]QH: 07/20/2018 Tertiary NOT GIVENUNK [place] Insurance:SELF PAY [facility] Number: Effective Repository Date:2018-07-20 07/20/2018 ELDORA Primary E[place] Insurance:MEDICARE STARLINDOB: Community HEALTHY [id number] PART A [facility] [id number] State Health [facility] Number: Repository [place] [id number] [phone]: (330) Date:2018-07-20 () 07/20/2018 Secondary ELDORA [place] Insurance:RURAL STARLINDOB: Community CARRIER BENEFIT [id number] PLANPolicy Number: Repository [id number] Date:4738-49-42GV [address] [place] [address]DX: 07/20/2018 Tertiary NOT GIVENUNK [place] Insurance:SELF PAY Community [facility] Number: Effective Repository Date:2018-07-20 07/20/2018 ELDORA Primary [place] Insurance:MEDICARE STARLINDOB: Community HEALTHY [id number] PART A [facility] [id number] State Health [facility] Number: Repository [place] [id number] [phone]: (330) Date:2018-07-20 () 07/20/2018 Secondary ELDORA [place] Insurance:RURAL STARL[place]OB: Community CARRIER BENEFIT [id number] Hospital PLANPolicy Number: Repository [id number] Date:8229-82-90HI [address] [address]WT: 07/20/2018 Tertiary NOT GIVENUNK [place] Insurance:SELF PAY [facility] Number: Effective Repository Date:2018-07-20 07/20/2018 ELDORA Primary [place] Insurance:MEDICARE STARLINDOB: Community HEALTHY [id number] PART A [facility] 1680-90-51HOAPenn State Health [facility] Number: Repository [place] [id number] [phone]: (330) Date:2018-07-2095 () 07/20/2018 Secondary ELDORA [place] Insurance:RURAL STARLINDOB: Community CARRIER BENEFIT [id number] Hospital PLANPolicy Number: Repository [id number] Date:1328-20-46[address] [place] [address]EB: 07/20/2018 Tertiary NOT GIVENUNK [place] Insurance:SELF PAY [facility] Number: Effective Repository Date:2018-07-20 07/20/2018 ELDORA Primary ELDORA [place] Insurance:MEDICARE STARLINDOB: Community HEALTHY [id number] PART A [facility] [id number] State Health [facility] Number: Repository [place] [id number]: (330) Date:2018-07-20 () 07/20/2018 Secondary ELDORA [place] Insurance:RURAL STARL[place]OB: Community CARRIER BENEFIT [id number] Hospital PLANPolicy Number: Repository [id number] Date:1614-95-01EC [facility] [address] [address]PX: 07/20/2018 Tertiary NOT GIVENUNK [place] Insurance:SELF PAY Community [facility] Number: Effective Repository Date:2018-07-20 07/20/2018 ELDORA Primary [place] Insurance:MEDICARE STARLINDOB: Community HEALTHY [id number] PART A [facility] [id number] [facility] Health [facility] Number: Repository [facility]DMADIG[facility] AR[facility] MEDICAL CENTERKEELEYbox [place], [place] [id number] [address]Fjd: 330) Date:2018-07-20 16168 () 07/20/2018 Secondary ELDORA [place] Insurance:RURAL STARLINDOB: Community CARRIER BENEFIT [id number] Memorial HospitalPolicy Number: Repository [id number] Date:9803-44-07DK [facility] [address] [place] [address]LA: 07/20/2018 Tertiary NOT GIVENUNK [place] Insurance:SELF PAY [facility] Number: Effective Repository Date:2018-07-20 07/20/2018 ELDORA Primary [place] Insurance:MEDICARE STARLINDOB: Community HEALTHY [id number] PART A [facility] 3515-90-23QSGPenn State Health [facility] Number: Repository RDMADIGAN ARMY MEDICAL CENTERKEELEYbox [place], [place] [id number] [address]Oye: (330) Date:2018-07-20 [id number] () 07/20/2018 Secondary ELDORA [place] Insurance:RURAL STARLINDOB: Community CARRIER BENEFIT [id number] Indian Medical Centeric Number: Repository [id number] Date:3763-36-01VA [facility] [address] [place] [address]JP: 07/20/2018 Tertiary NOT GIVENUNK [place] Insurance:SELF PAY Community [facility] Number: Effective Repository Date:2018-07-20 07/20/2018 ELDORA Primary [place] Insurance:MEDICARE STARLINDOB: Community HEALTHY [id number] PART A [facility] [id number] State Health [facility] Number: Repository [place] [id number] [address]Fho: (330) Date:2018-07-20 () 07/20/2018 Secondary ELDORA [place] Insurance:RURAL STARL[place]OB: Community CARRIER BENEFIT [id number] Hospital PLANPolicy Number: Repository [id number] Date:7859-20-53TF [address] [place] [address]DK: 07/20/2018 Tertiary NOT GIVENUNK [place] Insurance:SELF PAY [facility] Number: Effective Repository Date:2018-07-20 07/20/2018 ELDORA Primary ELD[place]A [place] Insurance:MEDICARE STARLINDOB: Community HEALTHY [id number] PART A [facility] [id number] State Health [facility] Number: Repository [place] [id number] [address]Avq: (330) Date:2018-07-2048 () 07/20/2018 Secondary ELDORA [place] Insurance:RURAL STARLINDOB: Community CARRIER BENEFIT [id number] Indian Medical Centeric Number: Repository [id number] Date:6409-46-20JJ [address] [place] [address]ER: 07/20/2018 Tertiary NOT GIVENUNK [place] Insurance:SELF PAY [facility] Number: Effective Repository Date:2018-07-20 07/20/2018 ELDORA Primary [place] Insurance:MEDICARE STARLINDOB: Community HEALTHY [id number] PART A [facility] 0033-54-18QFHPenn State Health [facility] Number: Repository [place] [id number] [phone]: (330) Date:2018-07-20 () 07/20/2018 Secondary ELDORA [place] Insurance:RURAL STAR[place]OB: Community CARRIER BENEFIT [id number] Hospital PLANPolicy Number: Repository [id number] Date:1905-51-19SV [address] [address]GN: 07/20/2018 Tertiary NOT GIVENUNK [place] Insurance:SELF PAY [facility] Number: Effective Repository Date:2018-07-20 07/20/2018 ELDORA Primary [place] Insurance:MEDICARE STARLINDOB: Community HEALTHY [id number] PART A [facility] [id number] Number: Repository [place] [id number] [address]Fzx: (330) Date:2018-07-2064 () 07/20/2018 Secondary ELDORA [place]iss[place] Insurance:RURAL STARLINDOB: Community CARRIER BENEFIT [id number] [place], [place] [address]y Number: Repository [id number] Date:0958-71-09IN [facility] [address] [address]ON: 07/20/2018 Tertiary NOT GIVENUNK [place] Insurance:SELF PAY [facility] Number: Effective Repository Date:2018-07-20 07/20/2018 ELDORA Primary [place] Insurance:MEDICARE STARLINDOB: Community HEALTHY [id number] PART A [facility] [id number] [place] [address] Number: Repository [place] [id number] [phone]: (330) Date:2018-07-2074 () 07/20/2018 Secondary ELDORA [place] Insurance:RURAL STARLINDOB: Community CARRIER BENEFIT [address] [place] [address] Number: Repository [id number] Date:7940-87-29FB [address] [address]ZO: 07/20/2018 Tertiary NOT GIVENUNK [place] Insurance:SELF PAY [facility] Number: Effective Repository Date:2018-07-20 07/20/2018 ELDORA Primary [place] Insurance:MEDICARE STARLINDOB: Community HEALTHY [id number] PART A [address] Number: Repository [place] [id number] [address]Jvw: (330) Date:2018-07-20 () 07/20/2018 Secondary ELDORA [place] Insurance:RURAL STARL[place]OB: Community CARRIER BENEFIT [id number] Hospital PLANPolicy Number: Repository [id number] Date:0873-75-00ZM [address] [place] [address]ID: 07/20/2018 Tertiary NOT GIVENUNK [place] Insurance:SELF PAY [facility] Number: Effective Repository Date:2018-07-20 07/20/2018 ELDORA Primary ELD[place]A [place] Insurance:MEDICARE STARLINDOB: Community HEALTHY [id number] PART A [facility] 3517-77-57JKKPenn State Health [facility] Number: Repository [place] [id number] [phone]: (330) Date:2018-07-20 () 07/20/2018 Secondary ELDORA [place] Insurance:RURAL STARL[place]OB: Community CARRIER BENEFIT [id number] Hospital PLANPolicy Number: Repository [id number] Date:9076-67-87QD [address] [place] [address]DW: 07/20/2018 Tertiary NOT GIVENUNK [place] Insurance:SELF PAY [facility] Number: Effective Repository Date:2018-07-20 07/20/2018 ELDORA Primary [place] Insurance:MEDICARE STARLINDOB: Community HEALTHY [id number] PART A [facility] [id number] State Health [facility] Number: Repository [place] [id number] [address]Syj: (330) Date:2018-07-20 () 07/20/2018 Secondary ELDORA [place] Insurance:RURAL STAR[place]OB: Community CARRIER BENEFIT [id number] Hospital PLANPolicy Number: Repository [id number] Date:2840-88-14WO [address] [place] [address]EW: 07/20/2018 Tertiary NOT GIVENUNK [place] Insurance:SELF PAY Community [facility] Number: Effective Repository Date:2018-07-20 07/20/2018 ELDORA Primary [place] Insurance:MEDICARE STARLINDOB: Community HEALTHY [id number] PART A [facility] [id number] State Health [facility] Number: Repository [place] [id number] [address]Aaz: (330) Date:2018-07-20 () 07/20/2018 Secondary ELDORA [place] Insurance:RURAL STARL[place]OB: Community CARRIER BENEFIT [id number] Hospital PLANPolicy Number: Repository [id number] Date:7406-93-01QJ [address] [place] [address]OR: 07/20/2018 Tertiary NOT GIVENUNK [place] Insurance:SELF PAY [facility] Number: Effective Repository Date:2018-07-20 07/20/2018 ELDORA Primary [place] Insurance:MEDICARE STARLINDOB: Community HEALTHY [id number] PART A [facility] 9273-20-04EDRPenn State Health [facility] Number: Repository [place] [id number]: (330) Date:2018-07-2040 () 07/20/2018 Secondary ELDORA [place] Insurance:RURAL STARLINDOB: Community CARRIER BENEFIT [id number] Hospital PLANPolicy Number: Repository [id number] Date:0499-30-08VF [address] [place] [address]BT: 07/20/2018 Tertiary NOT GIVENUNK [place] Insurance:SELF PAY [facility] Number: Effective Repository Date:2018-07-20 07/20/2018 ELDORA Primary [place]LD[place] Insurance:MEDICARE STARLINDOB: Community HEALTHY [id number] PART A [facility] 1320-82-28HELPenn State Health [facility] Number: Rep[place] [id number] [address]Qfd: (330) Date:2018-07-20 () 07/20/2018 Secondary ELDORA [place] Insurance:RURAL STARLINDOB: Community CARRIER BENEFIT [id number] Hospital PLANPolicy Number: Repository [id number] Date:8808-91-44HN [facility] [address] [address]G: 07/20/2018 Tertiary NOT GIVENUNK [place] Insurance:SELF PAY [facility] Number: Effective Repository Date:2018-07-20 07/20/2018 ELDORA Primary [place] Insurance:MEDICARE STARLINDOB: Community HEALTHY [id number] PART A [facility] 9045-10-56MDAPenn State Health [facility] Number: Repository RDMADIG[facility] MEDICAL CENTERKEELEYbox [place], [place] [id number] [address]Bhw: 330) Date:2018-07-20 () 07/20/2018 Secondary ELDORA [place] Insurance:RURAL STARLINDOB: Community CARRIER BENEFIT [id number] Hospital PLANPolicy Number: Repository [id number] Date:3313-33-94AM [facility] [address] [place] [address]HW: 07/20/2018 Tertiary NOT GIVENUNK [place] Insurance:SELF PAY [facility] Number: Effective Repository Date:2018-07-20 07/20/2018 ELDORA Primary [place] Insurance:MEDICARE STARLINDOB: Community HEALTHY [id number] PART A [facility] 3276-54-01RKPPenn State Health [facility] Number: Repository [address] [place] [id number] [address]Ixe: (330) Date:2018-07-20 () 07/20/2018 Secondary ELDORA [place] Insurance:RURAL STARLINDOB: Community CARRIER BENEFIT [id number] Hospital PLANPolicy Number: Repository [id number] Date:9600-70-02QC [facility] [address] [place] [address]EP: 07/20/2018 Tertiary NOT GIVENUNK [place] Insurance:SELF PAY [facility] Number: Effective Repository Date:2018-07-20 07/20/2018 ELDORA Primary [place] Insurance:MEDICARE STARLINDOB: Community HEALTHY [id number] PART A [facility] [id number] State Health [facility] Number: Rep[place] [id number] [phone]: (330) Date:2018-07-20 () 07/20/2018 Secondary ELDORA [place] Insurance:RURAL STARLINDOB: Community CARRIER BENEFIT [id number] Hospital PLANPolicy Number: Repository [id number] Date:0042-90-69SP [address] [place] [address]ZQ: 07/20/2018 Tertiary NOT GIVENUNK [place] Insurance:SELF PAY [facility] Number: Effective Repository Date:2018-07-20 07/20/2018 ELDORA Primary [place] Insurance:MEDICARE STARLINDOB: Community HEALTHY [id number] PART A [facility] 3570-71-04UTNPenn State Health [facility] Number: Repository [place] [place] [id number] [address]Gyr: (330) Date:2018-07-20 () 07/20/2018 Secondary ELDORA [place] Insurance:RURAL STARLINDOB: Community CARRIER BENEFIT [id number] Indian Medical Centericy Number: Repository [id number] Date:4630-89-57HV [address] [place] [address]WW: 07/20/2018 Tertiary NOT GIVENUNK [place] Insurance:SELF PAY [facility] Number: Effective Repository Date:2018-07-20 07/20/2018 ELDORA Primary [place] Insurance:MEDICARE STARLINDOB: Community HEALTHY [id number] PART A [facility] 1799-71-02RZTPenn State Health [facility] Number: Repository [place] [id number] [address]Mbh: (330) Date:2018-07-20 () 07/20/2018 Secondary ELD[place]A [place] Insurance:RURAL STARLINDOB: Community CARRIER BENEFIT [id number] Hospital PLANPolic Number: Repository [id number] Date:5992-70-86LD [address] [address]NB: 07/20/2018 Tertiary NOT GIVENUNK [place] Insurance:SELF PAY Community [facility] Number: Effective Repository Date:2018-07-20 07/20/2018 ELDORA Primary [place] Insurance:MEDICARE STARLINDOB: Community HEALTHY [id number] PART A [facility] [id number] Number: Repository [place] [id number] [address]Wvh: (330) Date:2018-07-20 [id number] () 07/20/2018 Secondary ELDORA [place] Insurance:RURAL STARLINDOB: Community CARRIER BENEFIT [id number] Number: Repository [id number] Date:8613-58-35SJ [facility] [address] [address]SM: 07/20/2018 Tertiary NOT GIVENUNK [place] Insurance:SELF PAY [facility] Number: Effective Repository Date:2018-07-20 07/20/2018 ELDORA Primary [place] Insurance:MEDICARE STARLINDOB: Community HEALTHY [id number] PART A [facility] [id number] Number: Repository [place] [id number] [phone]: 330) Date:2018-07-2073 () 07/20/2018 Secondary ELDORA [place] Insurance:RURAL STARLINDOB: Community CARRIER BENEFIT [id number] [place] [address] Number: Repository [id number] Date:2471-91-25LZ [address] [address]HH: 07/20/2018 Tertiary NOT GIVENUNK [place] Insurance:SELF PAY [facility] Number: Effective Repository Date:2018-07-20 07/07/2018 ELDORA Primary [place] Insurance:MEDICARE STARLINDOB: Community HEALTHY [id number] PART A [facility] [id number] Number: Repository [place] [id number] [phone]: (330) Date:2018-07-07 () 07/07/2018 Secondary ELDORA [place] Insurance:RURAL STARLINDOB: Community CARRIER BENEFIT [id number] PLANPolic Number: Repository [id number] Date:6441-84-44RP [address] [address]FQ: 07/07/2018 Tertiary NOT GIVENUNK [place] Insurance:SELF PAY [facility] Number: Effective Repository Date:2018-07-07 06/17/2018 ELDORA Primary [place] Insurance:MEDICARE STARLINDOB: Community HEALTHY [id number] PART A [facility] [id number] Number: [place] [id number] [address]Kri: (330) Date:2018-03-08 () 06/17/2018 Secondary ELD[place] Insurance:RURAL STARLINDOB: Community CARRIER BENEFIT [id number] [place], [place] [address]Policy Number: Repository [id number] Date:7060-86-20DJ [address] [place] [address]LD: 06/17/2018 Tertiary NOT GIVENUNK [place] Insurance:SELF PAY [facility] Number: Effective Repository Date:2018-03-08 06/09/2018 ELDORA Primary [place] Insurance:MEDICARE STARLINDOB: Community HEALTHY [id number] PART A [facility] [id number] Number: [place] [id number] [address]Iil: (330) Date:2018-06-09 () 06/09/2018 Secondary [place] Insurance:RURAL STARLINDOB: Community CARRIER BENEFIT [id number] PLANPolicy Number: Repository [id number] Date:0536-61-16[address] [place] [address]BH: 06/09/2018 Tertiary NOT GIV[place]UNK [place] Insurance:SELF PAY Community [facility] Number: Effective Repository Date:2018-06-09 06/04/2018 [place] Primary [place] Insurance:MEDICARE STARLINDOB: Community HEALTHY [id number] PART A [facility] [id number] [facility] Number: [place]ository [place] [id number] [phone]: ([phone]) Date:2018-06-04 () 06/04/2018 Secondary [place] Insurance:RURAL STARLINDOB: Community CARRIER BENEFIT [id number] Hospital PLANPolicy Number: Repository [id number] Date:0213-75-00FS [facility] [address] [place] [address]XO: 06/04/2018 Tertiary NOT GIVENUNK [place] Insurance:SELF PAY [facility] Number: Effective Repository Date:2018-06-04 05/26/2018 [place] Primary [place] Insurance:MEDICARE STARLINDOB: Community HEALTHY [id number] PART A [facility] [id number] State Health [facility] Number: Repository [place] [id number] [phone]: ([phone]) Date:2018-05-1431 () 05/26/2018 Secondary [place] Insurance:RURAL STARLINDOB: Community CARRIER BENEFIT [id number] PLANPolicy Number: Repository [id number] Date:5478-17-89ZQ [address] [place] [address]SA: 05/26/2018 Tertiary NOT GIVENUNK [place] Insurance:SELF PAY [facility] Number: Effective Repository Date:2018-05-26 05/09/2018 [place] Primary [place] Insurance:MEDICARE STARLINDOB: Community HEALTHY [id number] PART A [facility] [id number] State Health [facility] Number: Repository [place] [id number] [phone]: ([phone]) Date:2018-05-08 () 05/09/2018 Secondary [place] Insurance:RURAL STARLINDOB: Community CARRIER BENEFIT [id number] Hospital PLANPolicy Number: Repository [id number] Date:3488-16-66OX [address] [place] [address]: 05/09/2018 Tertiary NOT GIVENUNK [place] Insurance:SELF PAY Community [facility] Number: Effective Repository Date:2018-05-08 05/09/2018 [place] Primary [place] Insurance:MEDICARE STARLINDOB: Community HEALTHY [id number] PART A [facility] [id number] State Health [facility] Number: Repository RDMIRNA [place] [id number]: [phone]) Date:2018-05-082927 () 05/09/2018 Secondary [place] Insurance:RURAL STARLINDOB: Community CARRIER BENEFIT [id number] Hospital PLANPolicy Number: Repository [id number] Date:6366-42-57VX [address] [place] [address]OD: 05/09/2018 Tertiary NOT GIVENUNK [place] Insurance:SELF PAY Community [facility] Number: Effective Repository Date:2018-05-09 05/09/2018 [place] Primary [place] Insurance:MEDICARE STARLINDOB: Community HEALTHY [id number] PART A [facility] [id number] State Health [facility] Number: [place]ository [place] [id number] [phone]: ([phone]) Date:2018-05-083608 () 05/09/2018 Secondary [place] Insurance:RURAL STARLINDOB: Community CARRIER BENEFIT [id number] Hospital PLANPolicy Number: Repository [id number] Date:4895-72-66QK [address] [place] [address]UR: 05/09/2018 Tertiary NOT GIVENUNK [place] Insurance:SELF PAY Community [facility] Number: Effective Repository Date:2018-05-09 05/08/2018 [place] Primary [place] Insurance:MEDICARE STARLINDOB: Community HEALTHY [id number] PART A [facility] [id number] State Health [facility] Number: Repository [place] [id number] [phone]: ([phone]) Date:2018-05-08 () 05/08/2018 Secondary [place] Insurance:RURAL STARLINDOB: Community CARRIER BENEFIT [id number] Hospital PLANPolicy Number: Repository [id number] Date:0421-45-55QL [address] [place] [address]CR: 05/08/2018 Tertiary NOT GIVENUNK [place] Insurance:SELF PAY [facility] Number: Effective Repository Date:2018-05-08 05/08/2018 [place] Primary [place] Insurance:MEDICARE STARLINDOB: Community HEALTHY [id number] PART A [facility] [id number] [facility] Health [facility] Number: Repository [place] [id number] [phone]: ([phone]) Date:2018-05-0818 () 05/08/2018 Secondary [place] Insurance:RURAL STARLINDOB: Community CARRIER BENEFIT [id number] Hospital PLANPolicy Number: Repository [id number] Date:2388-99-23CA [facility] [address] [place] [address]EB: 05/08/2018 Tertiary NOT GIVENUNK [place] Insurance:SELF PAY [facility] Number: Effective Repository Date:2018-05-08 04/14/2018 [place] Insurance:MEDICARE StarlinDOB: Community HEALTHY [id number] PART A [facility] [id number] State Health [facility] Number: Repository [place] [id number] [phone]: ([phone]) Date:2018-04-1418 () 04/14/2018 Secondary [place] Insurance:RURAL StarlinDOB: Community CARRIER BENEFIT [id number] Hospital PLANPolicy Number: Repository [id number] Date:5993-43-25HN [address] [address]GM: 04/14/2018 Tertiary NOT GIVENUNK [place] Insurance:SELF PAY [facility] Number: Effective Repository Date:2018-04-14 03/01/2018 [place] [id number] Primary [place] Insurance:MEDICARE STARLINDOB: Community [address] [facility] PART A [facility] [id number] Number: Repository [phone]: ([phone]) [id number] [phone] () Date:2018-03-01 03/01/2018 Secondary [place] Insurance:RURAL STARLINDOB: Community CARRIER BENEFIT [id number] Hospital PLANPolicy Number: Repository [id number] Date:0920-01-94SL [facility] [address] [address]UO: 03/01/2018 Tertiary NOT GIVENUNK [place] Insurance:SELF PAY [facility] Number: Effective Repository Date:2018-03-01 03/01/2018 [place] [id number] Primary [place] Insurance:MEDICARE STARLINDOB: Community [address] Healthy PART A [facility] [id number] Center, [place] Number: Repository [id number]: [phone] [id number] [phone] () Date:2018-03-01 03/01/2018 Secondary [place] Insurance:RURAL STARLINDOB: Community CARRIER BENEFIT [id number] Hospital PLANPolicy Number: Repository [id number] Date:4567-23-29KQ [facility] [address] [place] [address]JA: 03/01/2018 Tertiary NOT GIVENUNK [place] Insurance:SELF PAY [facility] Number: Effective Repository Date:2018-03-01 03/01/2018 [place] [id number] Primary [place] Insurance:MEDICARE STARLINDOB: Community [address] Healthy PART A [facility] [id number] [facility] Number: Repository [address]Bjf: 419 [id number] [phone] () Date:2018-03-01 03/01/2018 Secondary [place] Insurance:RURAL STARLINDOB: Community CARRIER BENEFIT [address] [place] [address] PLANPolicy Number: Repository [id number] Date:9834-60-97YO [address] [place] [address]LU: 03/01/2018 Tertiary NOT GIV[place]UN[place] Insurance:SELF PAY [facility] Number: Effective Repository Date:2018-03-01 03/01/2018 [place] [id number] Primary [place] Insurance:MEDICARE STARLINDOB: Community [address] Healthy PART A [address], [place] Number: Repository [id number]: 419 [id number] [phone] () Date:2018-03-01 03/01/2018 Secondary [place] Insurance:RURAL STARLINDOB: Community CARRIER BENEFIT [address] [place] [address] PLANPolicy Number: Repository [id number] Date:1931-04-22TE [address] [place] [address]NP: 03/01/2018 Tertiary NOT GIVENUNK [place] Insurance:SELF PAY [facility] Number: Effective Repository Date:2018-03-01 03/01/2018 [place] [id number] Primary [place] Insurance:MEDICARE STARLINDOB: Community [address] Healthy PART A [address], [place] Number: Repository [id number]: 419 [id number] [phone] () Date:2018-03-01 03/01/2018 Secondary [place] Insurance:RURAL STARLINDOB: Community CARRIER BENEFIT [address] [place] [address] PLANPolicy Number: Repository [id number] Date:2977-91-44OE [address] [address]PC: 03/01/2018 Tertiary NOT GIVENUNK [place] Insurance:SELF PAY Community [facility] Number: Effective Repository Date:2018-03-01 03/01/2018 [place] [id number] Primary [place] Insurance:MEDICARE STARLINDOB: Community [address] Healthy PART A [address] Number: Repository [id number]: 419 [id number] [phone] () Date:2018-03-01 03/01/2018 Secondary [place] Insurance:RURAL STARLINDOB: Community CARRIER BENEFIT [id number] PLANPolicy Number: Repository [id number] Date:0622-46-30BN [address] [address]YI: 03/01/2018 Tertiary NOT GIV[place]UN[place] Insurance:SELF PAY Community [facility] Number: Effective Repository Date:2018-03-01 03/01/2018 [place] [id number] Primary [place] Insurance:MEDICARE STARLINDOB: Community [address] Healthy PART A [facility] [id number], [place] Number: Repository [address]Tyj: 419 [id number] [phone] () Date:2018-03-01 03/01/2018 Secondary [place] Insurance:RURAL STARLINDOB: Community CARRIER BENEFIT [id number] PLANPolicy Number: Repository [id number] Date:5515-75-19VB [address] [address]OZ: 03/01/2018 Tertiary NOT G[place] Insurance:SELF PAY Community [facility] Number: Effective Repository Date:2018-03-01 03/01/2018 [place] [id number] Primary [place] Insurance:MEDICARE STARLINDOB: Community [address] Healthy PART A [facility] [id number] [place] Number: Repository [id number]: [phone] [id number] [phone] () Date:2018-03-01 03/01/2018 Secondary [place] Insurance:RURAL STARLINDOB: Community CARRIER BENEFIT [id number] Hospital PLANPolicy Number: Repository [id number] Date:3585-75-49BF [address] [place] [address]WF: 03/01/2018 Tertiary NOT GIVENUNK [place] Insurance:SELF PAY Community [facility] Number: Effective Repository Date:2018-03-01 03/01/2018 [place] [id number] Primary [place] Insurance:MEDICARE STARLINDOB: Community [address] Healthy PART A [facility] [id number] [place] Number: Repository [phone]: [phone] [id number] [phone] () Date:2017-10-20 03/01/2018 Secondary [place] Insurance:RURAL STARLINDOB: Community CARRIER BENEFIT [id number] Hospital PLANPolicy Number: Repository [id number] Date:1834-25-22IR [facility] [address] [address]PB: 03/01/2018 Tertiary NOT GIV[place]UN[place] Insurance:SELF PAY [facility] Number: Effective Repository Date:2017-10-20 01/21/2018 [place] [id number] Primary [place] Insurance:MEDICARE StarlinDOB: Community [address] [facility] PART A [facility] [id number] [place], [place] Number: Repository [id number]: [phone] [id number] [phone] () Date:2018-01-21 01/21/2018 Secondary [place] Insurance:RURAL StarlinDOB: Community CARRIER BENEFIT [id number] Hospital PLANPolicy Number: Repository [id number] Date:5951-90-78JS [facility] [address] [address]MO: 01/21/2018 Tertiary NOT [place]UN[place] Insurance:SELF PAY Community [facility] Number: Effective Repository Date:2018-01-21 01/18/2018 [place] [id number] Primary [place] Insurance:MEDICARE StarlinDOB: Community [address] [facility] PART A [facility] [id number] [place], [place] Number: Repository [phone]: [phone] [id number] [phone] () Date:2018-01-18 01/18/2018 Secondary [place] Insurance:RURAL StarlinDOB: Community CARRIER BENEFIT [id number] Hospital PLANPolicy Number: Repository [id number] Date:6098-39-85JJ [address] [place] [address]HC: 01/18/2018 Tertiary NOT [place] Insurance:SELF PAY [facility] Number: Effective Repository Date:2018-01-18 01/15/2018 [place] [id number] Primary [place] Insurance:MEDICARE STARLINDOB: Community [address] [facility] PART A [facility] [id number] [place] Number: Repository [id number]: [phone] [id number] [phone] () Date:2018-01-15 01/15/2018 Secondary [place] Insurance:RURAL STARLINDOB: Community CARRIER BENEFIT [id number] Hospital PLANPolicy Number: Repository [id number] Date:6835-00-41ID [address] [place] [address] [place] [address]DR: 01/15/2018 Tertiary NOT [place] Insurance:SELF PAY [facility] Number: Effective Repository Date:2018-01-15
== END ==
LOC: OLS.WHLCAR 15:00
PROVIDERS: Visit Provider Family Medicine
DX: R69 Illness, unspecified (principal)
CPT/HCPCS: 87070; 87077; 87186; 87205

== ENCOUNTER → 2018-11-29 08:05 | Outpatient (REF) | payer MEDICARE, OTHER, SELFPAY ==
[2018-10-13 11:00] VITALS: BMI 29.6
[2018-11-29 09:04] LABS: Hematocrit 30.1 % (37-47); Hemoglobin 9.5 g/dl (12.0-15.0); Mean Corp Hgb Conc 31.6 g/gl (32-36); Mean Corpuscular Hgb 32.1 pg (27.0-32.0); Mean Corpuscular Volume 101.7 fL (81-99); Platelet Count 254 K/mm3 (150-450); RBC Distribution Width CV 16.2 % (11.6-14.6); RBC Distribution Width SD 60.4 fl (35.1-43.9); Red Blood Count 2.96 M/mm3 (4.2-5.4); White Blood Count 6.8 K/mm3 (4.4-11.0)
[2018-11-29 09:07] LABS: Scan Indicated on CBC? Y/N NO
[2018-11-29 09:18] LABS: Anion Gap 7 (5-15); BUN 34 mg/dL (7-18); BUN/Creat Ratio 21.2 RATIO (10-20); Calcium,Total 8.7 mg/dL (8.5-10.1); Chloride 103 mmol/L (98-107); EST Glomerular Filtration Rate 33 mL/min (>60); Est Glom Filt Rate - Afr Amer 40 mL/min (>60); Glucose 59 mg/dL (74-106); Sodium Level 141 mmol/L (136-145)
== END ==
LOC: OLS.WHLCAR 08:05
PROVIDERS: Visit Provider Family Medicine
DX: D64.9 Anemia, unspecified (principal); E11.9 Type 2 diabetes mellitus without complications; J44.9 Chronic obstructive pulmonary disease, unspecified; E78.5 Hyperlipidemia, unspecified; E03.9 Hypothyroidism, unspecified
CPT/HCPCS: 36415; 80048; 85027

== ENCOUNTER → 2018-12-06 04:00 | Outpatient (REF) | payer MEDICARE, SELFPAY ==
[2018-10-13 11:00] VITALS: BMI 29.6
[2018-12-06 06:24] LABS: Hemoglobin 9.5 g/dl (12.0-15.0); Mean Corp Hgb Conc 31.7 g/gl (32-36); Mean Corpuscular Hgb 32.6 pg (27.0-32.0); Mean Corpuscular Volume 103.1 fL (81-99); Mean Platelet Vol. 9.6 fl (6.2-12.0); Platelet Count 244 K/mm3 (150-450); RBC Distribution Width CV 15.1 % (11.6-14.6); RBC Distribution Width SD 55.4 fl (35.1-43.9); Red Blood Count 2.91 M/mm3 (4.2-5.4); White Blood Count 10.1 K/mm3 (4.4-11.0)
[2018-12-06 06:25] LABS: Scan Indicated on CBC? Y/N NO
[2018-12-06 06:31] LABS: Anion Gap 10 (5-15); BUN 37 mg/dL (7-18); BUN/Creat Ratio 22.6 RATIO (10-20); Calcium,Total 8.9 mg/dL (8.5-10.1); Chloride 103 mmol/L (98-107); Creatinine, Serum 1.64 mg/dL (0.55-1.02); EST Glomerular Filtration Rate 32 mL/min (>60); Est Glom Filt Rate - Afr Amer 39 mL/min (>60); Glucose 48 mg/dL (74-106); Potassium 3.7 mmol/L (3.5-5.1); Sodium Level 143 mmol/L (136-145)
== END ==
LOC: OLS.WHLCAR 04:00
PROVIDERS: Visit Provider Family Medicine
DX: D64.9 Anemia, unspecified (principal); J44.9 Chronic obstructive pulmonary disease, unspecified; E11.9 Type 2 diabetes mellitus without complications; E78.5 Hyperlipidemia, unspecified; E03.9 Hypothyroidism, unspecified
CPT/HCPCS: 36415; 80048; 85027

== ENCOUNTER → 2018-12-13 04:00 | Outpatient (REF) | payer MEDICARE, SELFPAY ==
[2018-10-13 11:00] VITALS: BMI 29.6
[2018-12-13 09:00] LABS: Hematocrit 28.9 % (37-47); Hemoglobin 9.1 g/dl (12.0-15.0); Mean Corp Hgb Conc 31.5 g/gl (32-36); Mean Corpuscular Hgb 32.3 pg (27.0-32.0); Mean Corpuscular Volume 102.5 fL (81-99); Mean Platelet Vol. 9.3 fl (6.2-12.0); Platelet Count 217 K/mm3 (150-450); RBC Distribution Width CV 15.2 % (11.6-14.6); RBC Distribution Width SD 56.2 fl (35.1-43.9); Red Blood Count 2.82 M/mm3 (4.2-5.4)
[2018-12-13 09:02] LABS: Scan Indicated on CBC? Y/N NO
[2018-12-13 09:12] LABS: Anion Gap 7 (5-15); BUN 40 mg/dL (7-18); BUN/Creat Ratio 22.7 RATIO (10-20); Calcium,Total 8.7 mg/dL (8.5-10.1); Chloride 102 mmol/L (98-107); Creatinine, Serum 1.76 mg/dL (0.55-1.02); EST Glomerular Filtration Rate 29 mL/min (>60); Est Glom Filt Rate - Afr Amer 36 mL/min (>60); Glucose 45 mg/dL (74-106); Potassium 3.9 mmol/L (3.5-5.1); Sodium Level 140 mmol/L (136-145)
== END ==
LOC: OLS.WHLCAR 04:00
PROVIDERS: Visit Provider Family Medicine
DX: D64.9 Anemia, unspecified (principal); J44.9 Chronic obstructive pulmonary disease, unspecified; E11.9 Type 2 diabetes mellitus without complications; E78.5 Hyperlipidemia, unspecified; E03.9 Hypothyroidism, unspecified
CPT/HCPCS: 36415; 80048; 85027

== ENCOUNTER → 2018-12-20 04:00 | Outpatient (REF) | payer MEDICARE, OTHER, SELFPAY ==
[2018-10-13 11:00] VITALS: BMI 29.6
[2018-12-20 08:11] LABS: Anion Gap 8 (5-15); BUN 32 mg/dL (7-18); BUN/Creat Ratio 18.3 RATIO (10-20); Calcium,Total 8.8 mg/dL (8.5-10.1); Chloride 103 mmol/L (98-107); Creatinine, Serum 1.75 mg/dL (0.55-1.02); EST Glomerular Filtration Rate 30 mL/min (>60); Est Glom Filt Rate - Afr Amer 36 mL/min (>60); Glucose 47 mg/dL (74-106); Potassium 3.9 mmol/L (3.5-5.1); Sodium Level 142 mmol/L (136-145)
[2018-12-20 08:12] LABS: Hematocrit 29.6 % (37-47); Hemoglobin 9.7 g/dl (12.0-15.0); Mean Corp Hgb Conc 32.8 g/gl (32-36); Mean Corpuscular Hgb 34.3 pg (27.0-32.0); Mean Corpuscular Volume 104.6 fL (81-99); Mean Platelet Vol. 9.4 fl (6.2-12.0); Platelet Count 208 K/mm3 (150-450); RBC Distribution Width CV 14.3 % (11.6-14.6); RBC Distribution Width SD 53.6 fl (35.1-43.9); Red Blood Count 2.83 M/mm3 (4.2-5.4); White Blood Count 5.9 K/mm3 (4.4-11.0)
[2018-12-20 08:32] LABS: Scan Indicated on CBC? Y/N NO
== END ==
LOC: OLS.WHLCAR 04:00
PROVIDERS: Visit Provider Family Medicine
DX: D64.9 Anemia, unspecified (principal); J44.9 Chronic obstructive pulmonary disease, unspecified; E11.9 Type 2 diabetes mellitus without complications; E78.5 Hyperlipidemia, unspecified; E03.9 Hypothyroidism, unspecified
CPT/HCPCS: 36415; 80048; 85027

== ENCOUNTER → 2018-12-27 04:00 | Outpatient (REF) | payer MEDICARE, OTHER, SELFPAY ==
[2018-10-13 11:00] VITALS: BMI 29.6
[2018-12-27 09:17] LABS: Hematocrit 31.1 % (37-47); Hemoglobin 9.8 g/dl (12.0-15.0); Mean Corp Hgb Conc 31.5 g/gl (32-36); Mean Corpuscular Hgb 33.2 pg (27.0-32.0); Mean Corpuscular Volume 105.4 fL (81-99); Mean Platelet Vol. 9.2 fl (6.2-12.0); Platelet Count 229 K/mm3 (150-450); RBC Distribution Width SD 52.6 fl (35.1-43.9); Red Blood Count 2.95 M/mm3 (4.2-5.4); White Blood Count 7.1 K/mm3 (4.4-11.0)
[2018-12-27 09:21] LABS: Scan Indicated on CBC? Y/N NO
[2018-12-27 09:29] LABS: Anion Gap 10 (5-15); BUN 38 mg/dL (7-18); BUN/Creat Ratio 21.2 RATIO (10-20); Chloride 102 mmol/L (98-107); Creatinine, Serum 1.79 mg/dL (0.55-1.02); EST Glomerular Filtration Rate 29 mL/min (>60); Est Glom Filt Rate - Afr Amer 35 mL/min (>60); Glucose 111 mg/dL (74-106); Potassium 4.1 mmol/L (3.5-5.1); Sodium Level 143 mmol/L (136-145)
== END ==
LOC: OLS.WHLCAR 04:00
PROVIDERS: Visit Provider Family Medicine
DX: D64.9 Anemia, unspecified (principal); J44.9 Chronic obstructive pulmonary disease, unspecified; E11.9 Type 2 diabetes mellitus without complications; E78.5 Hyperlipidemia, unspecified; E03.9 Hypothyroidism, unspecified
CPT/HCPCS: 36415; 80048; 85027

== ENCOUNTER → 2019-01-03 04:00 | Outpatient (REF) | payer MEDICARE, OTHER, SELFPAY ==
[2018-10-13 11:00] VITALS: BMI 29.6
[2019-01-03 08:35] LABS: Hematocrit 33.5 % (37-47); Hemoglobin 10.6 g/dl (12.0-15.0); Mean Corp Hgb Conc 31.6 g/gl (32-36); Mean Corpuscular Hgb 32.8 pg (27.0-32.0); Mean Corpuscular Volume 103.7 fL (81-99); Mean Platelet Vol. 9.2 fl (6.2-12.0); Platelet Count 242 K/mm3 (150-450); RBC Distribution Width CV 14.1 % (11.6-14.6); RBC Distribution Width SD 53.4 fl (35.1-43.9); Red Blood Count 3.23 M/mm3 (4.2-5.4); White Blood Count 6.9 K/mm3 (4.4-11.0)
[2019-01-03 08:49] LABS: Scan Indicated on CBC? Y/N NO
[2019-01-03 08:54] LABS: Anion Gap 10 (5-15); BUN 36 mg/dL (7-18); BUN/Creat Ratio 20.3 RATIO (10-20); Chloride 102 mmol/L (98-107); Creatinine, Serum 1.77 mg/dL (0.55-1.02); EST Glomerular Filtration Rate 29 mL/min (>60); Est Glom Filt Rate - Afr Amer 35 mL/min (>60); Glucose 78 mg/dL (74-106); Potassium 4.2 mmol/L (3.5-5.1); Sodium Level 142 mmol/L (136-145)
== END ==
LOC: OLS.WHLCAR 04:00
PROVIDERS: Visit Provider Family Medicine
DX: D64.9 Anemia, unspecified (principal); J44.9 Chronic obstructive pulmonary disease, unspecified; E11.9 Type 2 diabetes mellitus without complications; E78.5 Hyperlipidemia, unspecified; E03.9 Hypothyroidism, unspecified
CPT/HCPCS: 36415; 80048; 85027

== ENCOUNTER → 2019-01-10 04:00 | Outpatient (REF) | payer MEDICARE, SELFPAY ==
[2018-10-13 11:00] VITALS: BMI 29.6
[2019-01-10 08:23] LABS: Hematocrit 30.9 % (37-47); Hemoglobin 9.7 g/dl (12.0-15.0); Mean Corp Hgb Conc 31.4 g/gl (32-36); Mean Corpuscular Hgb 32.6 pg (27.0-32.0); Mean Corpuscular Volume 103.7 fL (81-99); Mean Platelet Vol. 9.3 fl (6.2-12.0); Platelet Count 207 K/mm3 (150-450); RBC Distribution Width CV 14.1 % (11.6-14.6); RBC Distribution Width SD 52.9 fl (35.1-43.9); Red Blood Count 2.98 M/mm3 (4.2-5.4)
[2019-01-10 08:24] LABS: Scan Indicated on CBC? Y/N NO
[2019-01-10 08:37] LABS: Anion Gap 7 (5-15); BUN 35 mg/dL (7-18); BUN/Creat Ratio 19.7 RATIO (10-20); Calcium,Total 8.9 mg/dL (8.5-10.1); Chloride 104 mmol/L (98-107); Creatinine, Serum 1.78 mg/dL (0.55-1.02); EST Glomerular Filtration Rate 29 mL/min (>60); Est Glom Filt Rate - Afr Amer 35 mL/min (>60); Glucose 91 mg/dL (74-106); Potassium 4.4 mmol/L (3.5-5.1); Sodium Level 143 mmol/L (136-145)
== END ==
LOC: OLS.WHLCAR 04:00
PROVIDERS: Visit Provider Family Medicine
DX: D64.9 Anemia, unspecified (principal); J44.9 Chronic obstructive pulmonary disease, unspecified; E11.9 Type 2 diabetes mellitus without complications; E78.5 Hyperlipidemia, unspecified; E03.9 Hypothyroidism, unspecified
CPT/HCPCS: 36415; 80048; 85027

== ENCOUNTER → 2019-01-24 04:00 | Outpatient (REF) | payer MEDICARE, OTHER, SELFPAY ==
[2018-10-13 11:00] VITALS: BMI 29.6
[2019-01-24 07:20] LABS: Hematocrit 31.5 % (37-47); Hemoglobin 10.3 g/dl (12.0-15.0); Mean Corp Hgb Conc 32.7 g/gl (32-36); Mean Corpuscular Hgb 33.4 pg (27.0-32.0); Mean Corpuscular Volume 102.3 fL (81-99); Mean Platelet Vol. 8.9 fl (6.2-12.0); Platelet Count 217 K/mm3 (150-450); RBC Distribution Width CV 13.5 % (11.6-14.6); RBC Distribution Width SD 50.4 fl (35.1-43.9); Red Blood Count 3.08 M/mm3 (4.2-5.4); White Blood Count 6.7 K/mm3 (4.4-11.0)
[2019-01-24 07:21] LABS: Anion Gap 5 (5-15); BUN 33 mg/dL (7-18); BUN/Creat Ratio 19.6 RATIO (10-20); Chloride 101 mmol/L (98-107); Creatinine, Serum 1.68 mg/dL (0.55-1.02); EST Glomerular Filtration Rate 31 mL/min (>60); Est Glom Filt Rate - Afr Amer 38 mL/min (>60); Glucose 58 mg/dL (74-106); Sodium Level 141 mmol/L (136-145)
[2019-01-24 07:32] LABS: Scan Indicated on CBC? Y/N NO
== END ==
LOC: OLS.WHLCAR 04:00
PROVIDERS: Visit Provider Family Medicine
DX: D64.9 Anemia, unspecified (principal); J44.9 Chronic obstructive pulmonary disease, unspecified; E11.9 Type 2 diabetes mellitus without complications; E78.5 Hyperlipidemia, unspecified; E03.9 Hypothyroidism, unspecified
CPT/HCPCS: 36415; 80048; 85027

== ENCOUNTER → 2019-01-31 04:00 | Outpatient (REF) | payer MEDICARE, OTHER, SELFPAY ==
[2018-10-13 11:00] VITALS: BMI 29.6
[2019-01-31 08:37] LABS: Hematocrit 33.3 % (37-47); Hemoglobin 10.8 g/dl (12.0-15.0); Mean Corp Hgb Conc 32.4 g/gl (32-36); Mean Corpuscular Hgb 32.9 pg (27.0-32.0); Mean Corpuscular Volume 101.5 fL (81-99); Platelet Count 248 K/mm3 (150-450); RBC Distribution Width CV 12.8 % (11.6-14.6); RBC Distribution Width SD 46.3 fl (35.1-43.9); Red Blood Count 3.28 M/mm3 (4.2-5.4); White Blood Count 6.4 K/mm3 (4.4-11.0)
[2019-01-31 08:43] LABS: Scan Indicated on CBC? Y/N NO
[2019-01-31 08:47] LABS: Anion Gap 6 (5-15); BUN 32 mg/dL (7-18); BUN/Creat Ratio 17.5 RATIO (10-20); Calcium,Total 8.9 mg/dL (8.5-10.1); Chloride 100 mmol/L (98-107); Creatinine, Serum 1.83 mg/dL (0.55-1.02); EST Glomerular Filtration Rate 28 mL/min (>60); Est Glom Filt Rate - Afr Amer 34 mL/min (>60); Glucose 70 mg/dL (74-106); Potassium 4.3 mmol/L (3.5-5.1); Sodium Level 140 mmol/L (136-145)
== END ==
LOC: OLS.WHLCAR 04:00
PROVIDERS: Visit Provider Family Medicine
DX: D64.9 Anemia, unspecified (principal); F44.9 Dissociative and conversion disorder, unspecified; E11.9 Type 2 diabetes mellitus without complications; E78.5 Hyperlipidemia, unspecified; E03.9 Hypothyroidism, unspecified
CPT/HCPCS: 36415; 80048; 85027

== ENCOUNTER → 2019-02-07 05:00 | Outpatient (REF) | payer MEDICARE, OTHER, SELFPAY ==
[2018-10-13 11:00] VITALS: BMI 29.6
[2019-02-07 06:28] LABS: Hematocrit 30.2 % (37-47); Hemoglobin 9.9 g/dl (12.0-15.0); Mean Corp Hgb Conc 32.8 g/gl (32-36); Mean Corpuscular Hgb 33.1 pg (27.0-32.0); Mean Platelet Vol. 9.6 fl (6.2-12.0); Platelet Count 101 K/mm3 (150-450); RBC Distribution Width CV 13.4 % (11.6-14.6); RBC Distribution Width SD 49.4 fl (35.1-43.9); Red Blood Count 2.99 M/mm3 (4.2-5.4); White Blood Count 5.6 K/mm3 (4.4-11.0)
[2019-02-07 06:32] LABS: Scan Indicated on CBC? Y/N NO
[2019-02-07 06:33] LABS: Anion Gap 3 (5-15); BUN 34 mg/dL (7-18); BUN/Creat Ratio 18.2 RATIO (10-20); Calcium,Total 8.6 mg/dL (8.5-10.1); Chloride 101 mmol/L (98-107); Creatinine, Serum 1.87 mg/dL (0.55-1.02); EST Glomerular Filtration Rate 27 mL/min (>60); Est Glom Filt Rate - Afr Amer 33 mL/min (>60); Glucose 62 mg/dL (74-106); Potassium 4.1 mmol/L (3.5-5.1); Sodium Level 139 mmol/L (136-145)
== END ==
LOC: OLS.WHLCAR 05:00
PROVIDERS: Visit Provider Family Medicine
DX: D64.9 Anemia, unspecified (principal); J44.9 Chronic obstructive pulmonary disease, unspecified; E11.9 Type 2 diabetes mellitus without complications; E78.5 Hyperlipidemia, unspecified; E03.9 Hypothyroidism, unspecified
CPT/HCPCS: 36415; 80048; 85027

== ENCOUNTER → 2019-03-03 05:00 | Outpatient (REF) | payer MEDICARE, OTHER, SELFPAY ==
[2018-10-13 11:00] VITALS: BMI 29.6
[2019-03-03 08:51] LABS: Hematocrit 31.2 % (37-47); Hemoglobin 10.1 g/dl (12.0-15.0); Mean Corp Hgb Conc 32.4 g/gl (32-36); Mean Corpuscular Hgb 32.9 pg (27.0-32.0); Mean Corpuscular Volume 101.6 fL (81-99); Mean Platelet Vol. 9.3 fl (6.2-12.0); Platelet Count 205 K/mm3 (150-450); RBC Distribution Width CV 14.4 % (11.6-14.6); RBC Distribution Width SD 51.7 fl (35.1-43.9); Red Blood Count 3.07 M/mm3 (4.2-5.4); White Blood Count 6.2 K/mm3 (4.4-11.0)
[2019-03-03 09:04] LABS: Anion Gap 3 (5-15); BUN 33 mg/dL (7-18); BUN/Creat Ratio 18.6 RATIO (10-20); Calcium,Total 8.6 mg/dL (8.5-10.1); Chloride 101 mmol/L (98-107); Creatinine, Serum 1.77 mg/dL (0.55-1.02); EST Glomerular Filtration Rate 29 mL/min (>60); Est Glom Filt Rate - Afr Amer 35 mL/min (>60); Glucose 73 mg/dL (74-106); Potassium 4.2 mmol/L (3.5-5.1); Sodium Level 136 mmol/L (136-145)
[2019-03-03 09:15] LABS: Scan Indicated on CBC? Y/N NO
== END ==
LOC: OLS.WHLCAR 05:00
PROVIDERS: Visit Provider Family Medicine
DX: G40.909 Epilepsy, unspecified, not intractable, without status epilepticus (principal); R65.21 Severe sepsis with septic shock
CPT/HCPCS: 36415; 80048; 85027

== ENCOUNTER → 2019-03-09 | Outpatient (REF) | payer MEDICARE, OTHER, SELFPAY ==
[2018-10-13 11:00] VITALS: BMI 29.6
[2019-03-09 08:43] LABS: Hematocrit 23.6 % (37-47); Hemoglobin 7.3 g/dl (12.0-15.0); Mean Corp Hgb Conc 30.9 g/gl (32-36); Mean Corpuscular Hgb 30.5 pg (27.0-32.0); Mean Corpuscular Volume 98.7 fL (81-99); Mean Platelet Vol. 11.1 fl (6.2-12.0); Platelet Count 252 K/mm3 (150-450); RBC Distribution Width CV 13.4 % (11.6-14.6); RBC Distribution Width SD 48.6 fl (35.1-43.9); Red Blood Count 2.39 M/mm3 (4.2-5.4); White Blood Count 7.6 K/mm3 (4.4-11.0)
[2019-03-09 08:46] LABS: Anion Gap 8 (5-15); BUN 42 mg/dL (7-18); BUN/Creat Ratio 24.4 RATIO (10-20); Calcium,Total 8.3 mg/dL (8.5-10.1); Chloride 98 mmol/L (98-107); Creatinine, Serum 1.72 mg/dL (0.55-1.02); EST Glomerular Filtration Rate 30 mL/min (>60); Est Glom Filt Rate - Afr Amer 37 mL/min (>60); Glucose 259 mg/dL (74-106); Potassium 4.5 mmol/L (3.5-5.1); Sodium Level 137 mmol/L (136-145)
[2019-03-09 08:59] LABS: Scan Indicated on CBC? Y/N NO
== END | disposition home or self-care (01) ==
LOC: OLS.WHLCAR 04:00
PROVIDERS: Visit Provider Family Medicine
DX: D64.9 Anemia, unspecified (principal); E78.5 Hyperlipidemia, unspecified; E03.9 Hypothyroidism, unspecified
CPT/HCPCS: 36415; 80048; 85027

== ENCOUNTER → 2019-03-11 05:00 | Outpatient (REF) | payer MEDICARE, OTHER, SELFPAY ==
[2018-10-13 11:00] VITALS: BMI 29.6
[2019-03-11 08:42] LABS: Hematocrit 33.4 % (37-47); Hemoglobin 10.9 g/dl (12.0-15.0); Mean Corp Hgb Conc 32.6 g/gl (32-36); Mean Corpuscular Volume 101.2 fL (81-99); Mean Platelet Vol. 9.2 fl (6.2-12.0); Platelet Count 199 K/mm3 (150-450); RBC Distribution Width CV 14.6 % (11.6-14.6); RBC Distribution Width SD 54.2 fl (35.1-43.9); Scan Indicated on CBC? Y/N NO; White Blood Count 6.2 K/mm3 (4.4-11.0)
[2019-03-11 08:55] LABS: Iron 67 ug/dL (50-170)
== END ==
LOC: OLS.WHLCAR 05:00
PROVIDERS: Visit Provider Family Medicine
DX: I48.91 Unspecified atrial fibrillation (principal); D64.9 Anemia, unspecified; E11.9 Type 2 diabetes mellitus without complications; E78.5 Hyperlipidemia, unspecified; E03.9 Hypothyroidism, unspecified
CPT/HCPCS: 36415; 83540; 85027

== ENCOUNTER → 2019-04-06 | Outpatient (REF) | payer MEDICARE, OTHER, SELFPAY ==
[2018-10-13 11:00] VITALS: BMI 29.6
[2019-04-06 07:55] LABS: Anion Gap 4 (5-15); BUN 31 mg/dL (7-18); BUN/Creat Ratio 18.3 RATIO (10-20); Calcium,Total 8.6 mg/dL (8.5-10.1); Chloride 96 mmol/L (98-107); Creatinine, Serum 1.69 mg/dL (0.55-1.02); EST Glomerular Filtration Rate 31 mL/min (>60); Est Glom Filt Rate - Afr Amer 37 mL/min (>60); Glucose 49 mg/dL (74-106); Potassium 4.1 mmol/L (3.5-5.1); Sodium Level 135 mmol/L (136-145)
[2019-04-06 07:57] LABS: Absolute Lymphocyte Count 1.17 X10^3/ul (0.83-4.51); Absolute Neutrophil Count 4.1 X10^3/uL (2.0-7.7); Basophil# 0.02 X10^3/uL; Basophil% 0.3 % (0-1); Eosinophil# 0.79 X10^3/uL; Eosinophils% 11.5 % (0-5); Hematocrit 32.6 % (37-47); Hemoglobin 10.7 g/dl (12.0-15.0); Lymphocyte # 1.17 X10^3/ul (4.0); Lymphocyte % 17.1 % (19-41); Mean Corp Hgb Conc 32.8 g/gl (32-36); Mean Corpuscular Volume 100.6 fL (81-99); Mean Platelet Vol. 9.2 fl (6.2-12.0); Monocyte# 0.72 X10^3/uL; Monocyte% 10.5 % (0-10); Neutrophil # 4.14 X10^3/uL (2.7-7.7); Neutrophil % 60.5 % (47-70); Platelet Count 198 K/mm3 (150-450); RBC Distribution Width CV 14.3 % (11.6-14.6); RBC Distribution Width SD 51.6 fl (35.1-43.9); Red Blood Count 3.24 M/mm3 (4.2-5.4); White Blood Count 6.9 K/mm3 (4.4-11.0)
[2019-04-06 07:58] LABS: POSITIVE COUNT NO; POSITIVE DIFFERENTIAL NO; POSITIVE MORPHOLOGY NO
== END | disposition home or self-care (01) ==
LOC: OLS.WHLCAR 05:00
PROVIDERS: Visit Provider Family Medicine
DX: D64.9 Anemia, unspecified (principal); J44.9 Chronic obstructive pulmonary disease, unspecified; E11.9 Type 2 diabetes mellitus without complications; E78.5 Hyperlipidemia, unspecified; E03.9 Hypothyroidism, unspecified
CPT/HCPCS: 36415; 80048; 85025

== ENCOUNTER → 2019-05-04 05:00 | Outpatient (REF) | payer MEDICARE, OTHER, SELFPAY ==
[2018-10-13 11:00] VITALS: BMI 29.6
[2019-05-04 07:17] LABS: Absolute Neutrophil Count 3.4 X10^3/uL (2.0-7.7); Basophil# 0.02 X10^3/uL; Basophil% 0.3 % (0-1); Eosinophil# 0.73 X10^3/uL; Eosinophils% 11.5 % (0-5); Hematocrit 37.5 % (37-47); Hemoglobin 12.1 g/dl (12.0-15.0); Lymphocyte % 22.1 % (19-41); Mean Corp Hgb Conc 32.3 g/gl (32-36); Mean Corpuscular Hgb 32.9 pg (27.0-32.0); Mean Corpuscular Volume 101.9 fL (81-99); Mean Platelet Vol. 9.7 fl (6.2-12.0); Monocyte# 0.74 X10^3/uL; Monocyte% 11.7 % (0-10); Neutrophil # 3.43 X10^3/uL (2.7-7.7); Neutrophil % 54.2 % (47-70); POSITIVE COUNT NO; POSITIVE DIFFERENTIAL NO; POSITIVE MORPHOLOGY NO; Platelet Count 179 K/mm3 (150-450); RBC Distribution Width CV 14.7 % (11.6-14.6); RBC Distribution Width SD 52.7 fl (35.1-43.9); Red Blood Count 3.68 M/mm3 (4.2-5.4); White Blood Count 6.3 K/mm3 (4.4-11.0)
[2019-05-04 07:59] LABS: Anion Gap 9 (5-15); BUN 28 mg/dL (7-18); BUN/Creat Ratio 15.1 RATIO (10-20); Chloride 95 mmol/L (98-107); Creatinine, Serum 1.86 mg/dL (0.55-1.02); EST Glomerular Filtration Rate 28 mL/min (>60); Est Glom Filt Rate - Afr Amer 33 mL/min (>60); Glucose 59 mg/dL (74-106); Potassium 4.1 mmol/L (3.5-5.1); Sodium Level 138 mmol/L (136-145)
== END ==
LOC: OLS.WHLCAR 05:00
PROVIDERS: Visit Provider Family Medicine
DX: D64.9 Anemia, unspecified (principal); J44.9 Chronic obstructive pulmonary disease, unspecified; E11.9 Type 2 diabetes mellitus without complications; E78.5 Hyperlipidemia, unspecified; E03.9 Hypothyroidism, unspecified
CPT/HCPCS: 36415; 80048; 85025

== ENCOUNTER → 2019-05-10 05:45 | Outpatient (REF) | payer MEDICARE, OTHER, SELFPAY ==
[2018-10-13 11:00] VITALS: BMI 29.6
== END ==
LOC: OLS.WHLCAR 05:45
PROVIDERS: Visit Provider Family Medicine
DX: R68.89 Other general symptoms and signs (principal)
CPT/HCPCS: 36415; 84443

== ENCOUNTER → 2019-06-08 05:00 | Outpatient (REF) | payer MEDICARE, OTHER, SELFPAY ==
[2018-10-13 11:00] VITALS: BMI 29.6
[2019-06-08 07:04] LABS: Absolute Lymphocyte Count 1.15 X10^3/uL (0.83-4.51); Absolute Neutrophil Count 3.3 X10^3/uL (2.0-7.7); Basophil# 0.03 X10^3/uL; Basophil% 0.5 % (0-1); Eosinophil# 0.51 X10^3/uL; Eosinophils% 8.9 % (0-5); Hematocrit 32.6 % (37-47); Hemoglobin 11.1 g/dL (12.0-15.0); Lymphocyte # 1.15 X10^3/ul (4.0); Lymphocyte % 20.1 % (19-41); Mean Corpuscular Hgb 35.1 pg (27.0-32.0); Mean Corpuscular Volume 103.2 fL (81-99); Mean Platelet Vol. 9.5 fl (6.2-12.0); Monocyte% 12.3 % (0-10); NRBC Flagged by Analyzer 0 % (0-5); Neutrophil % 57.8 % (47-70); Platelet Count 149 K/mm3 (150-450); RBC Distribution Width CV 13.5 % (11.6-14.6); RBC Distribution Width SD 51.9 fl (35.1-43.9); Red Blood Count 3.16 M/mm3 (4.2-5.4); White Blood Count 5.7 K/mm3 (4.4-11.0)
[2019-06-08 08:03] LABS: Hemoglobin A1c 7.2 % (4.2-6.3)
[2019-06-08 08:19] LABS: Anion Gap 6 (5-15); BUN 32 mg/dL (7-18); BUN/Creat Ratio 17.4 RATIO (10-20); Calcium,Total 8.6 mg/dL (8.5-10.1); Chloride 98 mmol/L (98-107); Cholesterol 110 mg/dL (200); Creatinine, Serum 1.84 mg/dL (0.55-1.02); EST Glomerular Filtration Rate 28 mL/min (>60); Est Glom Filt Rate - Afr Amer 34 mL/min (>60); Glucose 98 mg/dL (74-106); High Density Lipoprotein 70 mg/dL; Potassium 4.2 mmol/L (3.5-5.1); Sodium Level 140 mmol/L (136-145); Triglycerides 48 mg/dL; Very Low Density Lipoprotein 10 mg/dL (5-40)
== END ==
LOC: OLS.WHLCAR 05:00
PROVIDERS: Visit Provider Family Medicine
DX: E11.9 Type 2 diabetes mellitus without complications (principal); E03.9 Hypothyroidism, unspecified
CPT/HCPCS: 36415; 80048; 80061; 83036; 84443; 85025

== ENCOUNTER → 2019-07-05 04:30 | Outpatient (REF) | payer MEDICARE, OTHER, SELFPAY ==
[2018-10-13 11:00] VITALS: BMI 29.6
[2019-07-05 06:45] LABS: Absolute Lymphocyte Count 0.99 X10^3/uL (0.83-4.51); Absolute Neutrophil Count 3.1 X10^3/uL (2.0-7.7); Basophil# 0.02 X10^3/uL; Basophil% 0.4 % (0-1); Eosinophils% 10.9 % (0-5); Hematocrit 34.6 % (37-47); Hemoglobin 11.3 g/dL (12.0-15.0); Lymphocyte # 0.99 X10^3/ul (4.0); Lymphocyte % 17.9 % (19-41); Mean Corp Hgb Conc 32.7 g/dL (32-36); Mean Corpuscular Hgb 34.5 pg (27.0-32.0); Mean Corpuscular Volume 105.5 fL (81-99); Mean Platelet Vol. 9.6 fl (6.2-12.0); Monocyte# 0.79 X10^3/uL; Monocyte% 14.3 % (0-10); NRBC Flagged by Analyzer 0 % (0-5); Neutrophil # 3.11 X10^3/uL (2.7-7.7); Neutrophil % 56.3 % (47-70); Platelet Count 150 K/mm3 (150-450); RBC Distribution Width CV 13.2 % (11.6-14.6); RBC Distribution Width SD 51.8 fl (35.1-43.9); Red Blood Count 3.28 M/mm3 (4.2-5.4); White Blood Count 5.5 K/mm3 (4.4-11.0)
[2019-07-05 07:08] LABS: Anion Gap 7 (5-15); BUN 36 mg/dL (7-18); BUN/Creat Ratio 19.4 RATIO (10-20); Calcium,Total 8.6 mg/dL (8.5-10.1); Chloride 101 mmol/L (98-107); Creatinine, Serum 1.86 mg/dL (0.55-1.02); EST Glomerular Filtration Rate 28 mL/min (>60); Est Glom Filt Rate - Afr Amer 33 mL/min (>60); Glucose 144 mg/dL (74-106); Potassium 4.2 mmol/L (3.5-5.1); Sodium Level 141 mmol/L (136-145)
== END ==
LOC: OLS.WHLCAR 04:30
PROVIDERS: Visit Provider Family Medicine
DX: G40.909 Epilepsy, unspecified, not intractable, without status epilepticus (principal); R65.21 Severe sepsis with septic shock; R26.81 Unsteadiness on feet; M62.81 Muscle weakness (generalized); R13.12 Dysphagia, oropharyngeal phase; E11.9 Type 2 diabetes mellitus without complications
CPT/HCPCS: 36415; 80048; 85025

== ENCOUNTER → 2019-07-20 05:00 | Outpatient (REF) | payer MEDICARE, OTHER, SELFPAY ==
[2018-10-13 11:00] VITALS: BMI 29.6
== END ==
LOC: OLS.WHLCAR 05:00
PROVIDERS: Visit Provider Family Medicine
DX: G40.909 Epilepsy, unspecified, not intractable, without status epilepticus (principal); R65.21 Severe sepsis with septic shock; M62.81 Muscle weakness (generalized); R13.12 Dysphagia, oropharyngeal phase; E03.9 Hypothyroidism, unspecified
CPT/HCPCS: 36415; 84443

== ENCOUNTER → 2019-08-04 | Outpatient (REF) | payer MEDICARE, OTHER, SELFPAY ==
[2018-10-13 11:00] VITALS: BMI 29.6
[2019-08-04 08:00] LABS: Absolute Lymphocyte Count 0.96 X10^3/uL (0.83-4.51); Absolute Neutrophil Count 4.1 X10^3/uL (2.0-7.7); Basophil# 0.05 X10^3/uL; Basophil% 0.8 % (0-1); Eosinophil# 0.64 X10^3/uL; Eosinophils% 9.8 % (0-5); Hematocrit 35.5 % (37-47); Hemoglobin 11.5 g/dL (12.0-15.0); Lymphocyte # 0.96 X10^3/ul (4.0); Lymphocyte % 14.7 % (19-41); Mean Corp Hgb Conc 32.4 g/dL (32-36); Mean Corpuscular Hgb 34.4 pg (27.0-32.0); Mean Corpuscular Volume 106.3 fL (81-99); Mean Platelet Vol. 9.6 fl (6.2-12.0); Monocyte# 0.76 X10^3/uL; Monocyte% 11.7 % (0-10); NRBC Flagged by Analyzer 0 % (0-5); Neutrophil # 4.08 X10^3/uL (2.7-7.7); Neutrophil % 62.7 % (47-70); Platelet Count 196 K/mm3 (150-450); RBC Distribution Width SD 50.8 fl (35.1-43.9); Red Blood Count 3.34 M/mm3 (4.2-5.4); White Blood Count 6.5 K/mm3 (4.4-11.0)
[2019-08-04 08:25] LABS: Anion Gap 7 (5-15); BUN 39 mg/dL (7-18); BUN/Creat Ratio 21.1 RATIO (10-20); Calcium,Total 8.9 mg/dL (8.5-10.1); Chloride 101 mmol/L (98-107); Creatinine, Serum 1.85 mg/dL (0.55-1.02); EST Glomerular Filtration Rate 28 mL/min (>60); Est Glom Filt Rate - Afr Amer 34 mL/min (>60); Glucose 77 mg/dL (74-106); Potassium 4.2 mmol/L (3.5-5.1); Sodium Level 143 mmol/L (136-145)
== END | disposition home or self-care (01) ==
LOC: OLS.WHLCAR 05:00
PROVIDERS: Visit Provider Family Medicine
DX: E11.9 Type 2 diabetes mellitus without complications (principal)
CPT/HCPCS: 36415; 80048; 85025

== ENCOUNTER → 2019-08-20 06:00 | Outpatient (REF) | payer MEDICARE, OTHER, SELFPAY ==
[2018-10-13 11:00] VITALS: BMI 29.6
[2019-08-20 07:17] LABS: T4 Total, Thyroxin 12.8 ug/dL (4.8-13.9); Thyroid Stim Hormone (TSH) 3.22 uIU/mL (0.358-3.74)
== END ==
LOC: OLS.WHLCAR 06:00
PROVIDERS: Visit Provider Family Medicine
DX: E03.9 Hypothyroidism, unspecified (principal); G40.909 Epilepsy, unspecified, not intractable, without status epilepticus; R65.21 Severe sepsis with septic shock; R26.81 Unsteadiness on feet; M62.81 Muscle weakness (generalized); R13.12 Dysphagia, oropharyngeal phase
CPT/HCPCS: 36415; 84436; 84443

== ENCOUNTER → 2019-09-05 05:00 | Outpatient (REF) | payer MEDICARE, OTHER, SELFPAY ==
[2018-10-13 11:00] VITALS: BMI 29.6
[2019-09-05 08:07] LABS: Absolute Lymphocyte Count 0.73 X10^3/uL (0.83-4.51); Absolute Neutrophil Count 4.1 X10^3/uL (2.0-7.7); Basophil# 0.03 X10^3/uL; Basophil% 0.5 % (0-1); Eosinophil# 0.59 X10^3/uL; Eosinophils% 9.6 % (0-5); Hematocrit 35.6 % (37-47); Hemoglobin 11.5 g/dL (12.0-15.0); Lymphocyte # 0.73 X10^3/ul (4.0); Lymphocyte % 11.9 % (19-41); Mean Corp Hgb Conc 32.3 g/dL (32-36); Mean Corpuscular Hgb 34.3 pg (27.0-32.0); Mean Corpuscular Volume 106.3 fL (81-99); Mean Platelet Vol. 10.7 fl (6.2-12.0); Monocyte# 0.71 X10^3/uL; Monocyte% 11.6 % (0-10); NRBC Flagged by Analyzer 0 % (0-5); Neutrophil # 4.06 X10^3/uL (2.7-7.7); Neutrophil % 66.1 % (47-70); Platelet Count 141 K/mm3 (150-450); RBC Distribution Width CV 12.2 % (11.6-14.6); Red Blood Count 3.35 M/mm3 (4.2-5.4); White Blood Count 6.1 K/mm3 (4.4-11.0)
[2019-09-05 08:35] LABS: Anion Gap 5 (5-15); BUN 31 mg/dL (7-18); BUN/Creat Ratio 18.8 RATIO (10-20); Calcium,Total 8.7 mg/dL (8.5-10.1); Chloride 103 mmol/L (98-107); Creatinine, Serum 1.65 mg/dL (0.55-1.02); EST Glomerular Filtration Rate 32 mL/min (>60); Est Glom Filt Rate - Afr Amer 38 mL/min (>60); Glucose 117 mg/dL (74-106); Potassium 4.3 mmol/L (3.5-5.1); Sodium Level 142 mmol/L (136-145); Thyroid Stim Hormone (TSH) 4.57 uIU/mL (0.358-3.74)
== END ==
LOC: OLS.WHLCAR 05:00
PROVIDERS: Visit Provider Family Medicine
DX: D64.9 Anemia, unspecified (principal); G40.909 Epilepsy, unspecified, not intractable, without status epilepticus; R13.12 Dysphagia, oropharyngeal phase; I51.81 Takotsubo syndrome; I69.322 Dysarthria following cerebral infarction; I69.391 Dysphagia following cerebral infarction
CPT/HCPCS: 36415; 80048; 84443; 85025

== ENCOUNTER → 2019-11-07 05:00 | Outpatient (REF) | payer MEDICARE, OTHER, SELFPAY ==
[2018-10-13 11:00] VITALS: BMI 29.6
[2019-11-07 07:01] LABS: Hematocrit 36.4 % (37-47); Hemoglobin 11.6 g/dL (12.0-15.0); Mean Corp Hgb Conc 31.9 g/dL (32-36); Mean Corpuscular Hgb 32.9 pg (27.0-32.0); Mean Corpuscular Volume 103.1 fL (81-99); Mean Platelet Vol. 9.7 fl (6.2-12.0); Platelet Count 182 K/mm3 (150-450); RBC Distribution Width CV 13.2 % (11.6-14.6); RBC Distribution Width SD 50.3 fl (35.1-43.9); Red Blood Count 3.53 M/mm3 (4.2-5.4); White Blood Count 6.3 K/mm3 (4.4-11.0)
[2019-11-07 07:26] LABS: Anion Gap 1 (5-15); BUN 35 mg/dL (7-18); Calcium,Total 8.4 mg/dL (8.5-10.1); Chloride 103 mmol/L (98-107); Creatinine, Serum 1.75 mg/dL (0.55-1.02); EST Glomerular Filtration Rate 30 mL/min (>60); Est Glom Filt Rate - Afr Amer 36 mL/min (>60); Glucose 117 mg/dL (74-106); Potassium 4.3 mmol/L (3.5-5.1); Sodium Level 141 mmol/L (136-145)
== END ==
LOC: OLS.WHLCAR 05:00
PROVIDERS: Family Provider Family Medicine; PCP Family Medicine; Visit Provider Family Medicine
DX: E11.9 Type 2 diabetes mellitus without complications (principal); G40.909 Epilepsy, unspecified, not intractable, without status epilepticus; R13.12 Dysphagia, oropharyngeal phase; I51.81 Takotsubo syndrome; I69.322 Dysarthria following cerebral infarction; I69.391 Dysphagia following cerebral infarction
CPT/HCPCS: 36415; 80048; 84443; 85027

== ENCOUNTER → 2019-12-05 05:00 | Outpatient (REF) | payer MEDICARE, OTHER, SELFPAY ==
[2018-10-13 11:00] VITALS: BMI 29.6
[2019-12-05 09:14] LABS: Hemoglobin A1c 8.7 % (4.2-6.3)
[2019-12-05 09:18] LABS: Cholesterol 106 mg/dL (200); High Density Lipoprotein 67 mg/dL; Triglycerides 54 mg/dL; Very Low Density Lipoprotein 11 mg/dL (5-40)
== END ==
LOC: OLS.WHLCAR 05:00
PROVIDERS: PCP Family Medicine; Visit Provider Family Medicine
DX: E03.9 Hypothyroidism, unspecified (principal); E11.9 Type 2 diabetes mellitus without complications; G40.909 Epilepsy, unspecified, not intractable, without status epilepticus; R13.12 Dysphagia, oropharyngeal phase; I51.81 Takotsubo syndrome; I69.322 Dysarthria following cerebral infarction; I69.391 Dysphagia following cerebral infarction
CPT/HCPCS: 36415; 80061; 83036; 84443

== ENCOUNTER → 2020-04-06 05:00 | Outpatient (REF) | payer MEDICARE, OTHER, SELFPAY ==
[2018-10-13 11:00] VITALS: BMI 29.6
[2020-04-06 07:51] LABS: Hematocrit 33.8 % (37-47); Hemoglobin 10.9 g/dL (12.0-15.0); Mean Corp Hgb Conc 32.2 g/dL (32-36); Mean Corpuscular Hgb 33.5 pg (27.0-32.0); Mean Platelet Vol. 9.7 fl (6.2-12.0); Platelet Count 182 K/mm3 (150-450); RBC Distribution Width CV 13.3 % (11.6-14.6); RBC Distribution Width SD 50.5 fl (35.1-43.9); Red Blood Count 3.25 M/mm3 (4.2-5.4); White Blood Count 6.3 K/mm3 (4.4-11.0)
[2020-04-06 08:22] LABS: Anion Gap 5 (5-15); BUN 32 mg/dL (7-18); Calcium,Total 8.6 mg/dL (8.5-10.1); Chloride 108 mmol/L (98-107); Creatinine, Serum 1.78 mg/dL (0.55-1.02); EST Glomerular Filtration Rate 29 mL/min (>60); Est Glom Filt Rate - Afr Amer 35 mL/min (>60); Glucose 64 mg/dL (74-106); Potassium 3.6 mmol/L (3.5-5.1); Sodium Level 145 mmol/L (136-145); Thyroid Stim Hormone (TSH) 0.01 uIU/mL (0.358-3.74)
== END ==
LOC: OLS.WHLCAR 05:00
PROVIDERS: PCP Family Medicine; Visit Provider Family Medicine
DX: E11.9 Type 2 diabetes mellitus without complications (principal); G40.909 Epilepsy, unspecified, not intractable, without status epilepticus; R13.12 Dysphagia, oropharyngeal phase; I51.81 Takotsubo syndrome; I69.322 Dysarthria following cerebral infarction; I69.391 Dysphagia following cerebral infarction
CPT/HCPCS: 36415; 80048; 84443; 85027

== ENCOUNTER → 2020-06-04 04:00 | Outpatient (REF) | payer MEDICARE, OTHER, SELFPAY ==
[2018-10-13 11:00] VITALS: BMI 29.6
[2020-06-04 07:45] LABS: Cholesterol 109 mg/dL (200); High Density Lipoprotein 68 mg/dL; Triglycerides 54 mg/dL; Very Low Density Lipoprotein 11 mg/dL (5-40)
[2020-06-04 07:47] LABS: Hemoglobin A1c 6.6 % (3.8-5.6)
== END ==
LOC: OLS.WHLCAR 04:00
PROVIDERS: PCP Family Medicine; Visit Provider Family Medicine
DX: E11.9 Type 2 diabetes mellitus without complications (principal); G40.909 Epilepsy, unspecified, not intractable, without status epilepticus; R13.12 Dysphagia, oropharyngeal phase; I51.81 Takotsubo syndrome; I69.322 Dysarthria following cerebral infarction; I69.391 Dysphagia following cerebral infarction
CPT/HCPCS: 36415; 80061; 83036

== ENCOUNTER → 2020-07-10 04:00 | Outpatient (REF) | payer MEDICARE, OTHER, SELFPAY ==
[2018-10-13 11:00] VITALS: BMI 29.6
[2020-07-10 08:36] LABS: Hematocrit 33.4 % (37-47); Hemoglobin 10.7 g/dL (12.0-15.0); Mean Corpuscular Hgb 33.3 pg (27.0-32.0); Mean Platelet Vol. 9.6 fl (6.2-12.0); Platelet Count 187 K/mm3 (150-450); RBC Distribution Width CV 12.5 % (11.6-14.6); Red Blood Count 3.21 M/mm3 (4.2-5.4); White Blood Count 6.5 K/mm3 (4.4-11.0)
[2020-07-10 09:11] LABS: Anion Gap 4 (5-15); BUN 24 mg/dL (7-18); BUN/Creat Ratio 14.3 RATIO (10-20); Calcium,Total 8.6 mg/dL (8.5-10.1); Chloride 109 mmol/L (98-107); Creatinine, Serum 1.68 mg/dL (0.55-1.02); EST Glomerular Filtration Rate 31 mL/min (>60); Est Glom Filt Rate - Afr Amer 37 mL/min (>60); Glucose 68 mg/dL (74-106); Potassium 3.8 mmol/L (3.5-5.1); Sodium Level 144 mmol/L (136-145); Thyroid Stim Hormone (TSH) 0.01 uIU/mL (0.358-3.74)
== END ==
LOC: OLS.WHLCAR 04:00
PROVIDERS: PCP Family Medicine; Referring Provider Family Medicine; Visit Provider Family Medicine
DX: G40.909 Epilepsy, unspecified, not intractable, without status epilepticus (principal); E11.9 Type 2 diabetes mellitus without complications; R13.12 Dysphagia, oropharyngeal phase; I51.81 Takotsubo syndrome; I69.322 Dysarthria following cerebral infarction; I69.391 Dysphagia following cerebral infarction
CPT/HCPCS: 36415; 80048; 84443; 85027

== ENCOUNTER → 2020-09-03 05:00 | Outpatient (REF) | payer MEDICARE, OTHER, SELFPAY ==
[2018-10-13 11:00] VITALS: BMI 29.6
[2020-09-03 08:06] LABS: Hematocrit 34.1 % (37-47); Mean Corp Hgb Conc 32.3 g/dL (32-36); Mean Corpuscular Volume 105.2 fL (81-99); Mean Platelet Vol. 9.5 fl (6.2-12.0); Platelet Count 168 K/mm3 (150-450); RBC Distribution Width CV 12.8 % (11.6-14.6); Red Blood Count 3.24 M/mm3 (4.2-5.4); White Blood Count 5.8 K/mm3 (4.4-11.0)
[2020-09-03 08:35] LABS: Anion Gap 7 (5-15); BUN 23 mg/dL (7-18); BUN/Creat Ratio 13.5 RATIO (10-20); Calcium,Total 8.7 mg/dL (8.5-10.1); Chloride 106 mmol/L (98-107); EST Glomerular Filtration Rate 30 mL/min (>60); Est Glom Filt Rate - Afr Amer 37 mL/min (>60); Glucose 68 mg/dL (74-106); Potassium 3.7 mmol/L (3.5-5.1); Sodium Level 143 mmol/L (136-145); Thyroid Stim Hormone (TSH) 0.03 uIU/mL (0.358-3.74)
== END ==
LOC: OLS.WHLCAR 05:00
PROVIDERS: PCP Family Medicine; Referring Provider Family Medicine; Visit Provider Family Medicine
DX: E03.9 Hypothyroidism, unspecified (principal); J44.9 Chronic obstructive pulmonary disease, unspecified; R13.12 Dysphagia, oropharyngeal phase; I51.81 Takotsubo syndrome; I69.391 Dysphagia following cerebral infarction; I69.322 Dysarthria following cerebral infarction; I69.393 Ataxia following cerebral infarction
CPT/HCPCS: 36415; 80048; 84443; 85027

== ENCOUNTER → 2020-10-31 06:00 | Outpatient (REF) | payer MEDICARE, OTHER, SELFPAY ==
[2018-10-13 11:00] VITALS: BMI 29.6
[2020-10-31 08:35] LABS: T4 Total, Thyroxin 17.3 ug/dL (4.8-13.9); Thyroid Stim Hormone (TSH) 0.03 uIU/mL (0.358-3.74)
== END ==
LOC: OLS.WHLCAR 06:00
PROVIDERS: PCP Family Medicine; Visit Provider Family Medicine
DX: E03.9 Hypothyroidism, unspecified (principal); J44.9 Chronic obstructive pulmonary disease, unspecified; R13.12 Dysphagia, oropharyngeal phase; I51.81 Takotsubo syndrome; I69.322 Dysarthria following cerebral infarction; I69.391 Dysphagia following cerebral infarction; I69.393 Ataxia following cerebral infarction
CPT/HCPCS: 36415; 84436; 84443

== ENCOUNTER → 2020-12-03 05:00 | Outpatient (REF) | payer MEDICARE, OTHER, SELFPAY ==
[2018-10-13 11:00] VITALS: BMI 29.6
[2020-12-03 08:55] LABS: Cholesterol 116 mg/dL (200); High Density Lipoprotein 58 mg/dL; Triglycerides 68 mg/dL; Very Low Density Lipoprotein 14 mg/dL (5-40)
[2020-12-03 09:07] LABS: Hemoglobin A1c 6.5 % (3.8-5.6)
== END ==
LOC: OLS.WHLCAR 05:00
PROVIDERS: PCP Family Medicine; Visit Provider Family Medicine
DX: E11.9 Type 2 diabetes mellitus without complications (principal); J44.9 Chronic obstructive pulmonary disease, unspecified; R13.12 Dysphagia, oropharyngeal phase; I51.81 Takotsubo syndrome; I69.322 Dysarthria following cerebral infarction; I69.391 Dysphagia following cerebral infarction; I69.393 Ataxia following cerebral infarction
CPT/HCPCS: 36415; 80061; 83036

== ENCOUNTER → 2020-12-19 05:00 | Outpatient (REF) | payer MEDICARE, OTHER, SELFPAY ==
[2018-10-13 11:00] VITALS: BMI 29.6
[2020-12-19 07:22] LABS: Hematocrit 30.7 % (37-47); Hemoglobin 10.3 g/dL (12.0-15.0); Mean Corp Hgb Conc 33.6 g/dL (32-36); Mean Corpuscular Hgb 34.1 pg (27.0-32.0); Mean Corpuscular Volume 101.7 fL (81-99); Mean Platelet Vol. 9.2 fl (6.2-12.0); Platelet Count 188 K/mm3 (150-450); RBC Distribution Width CV 14.3 % (11.6-14.6); RBC Distribution Width SD 53.7 fl (35.1-43.9); Red Blood Count 3.02 M/mm3 (4.2-5.4); White Blood Count 4.4 K/mm3 (4.4-11.0)
[2020-12-19 07:54] LABS: ALB/GLOB Ratio 0.7 RATIO (0.9-2.4); AST(SGOT) 14 U/L (15-37); Alanine Aminotransfer ALT/SGPT 12 U/L (13-56); Alkaline Phosphatase 111 U/L (45-117); Anion Gap 2 (5-15); BUN 14 mg/dL (7-18); BUN/Creat Ratio 9.2 RATIO (10-20); Calcium,Total 8.2 mg/dL (8.5-10.1); Chloride 104 mmol/L (98-107); Creatinine, Serum 1.53 mg/dL (0.55-1.02); EST Glomerular Filtration Rate 34 mL/min (>60); Est Glom Filt Rate - Afr Amer 42 mL/min (>60); Globulin 2.7 g/dL (2.2-4.2); Glucose 56 mg/dL (74-106); Potassium 3.4 mmol/L (3.5-5.1); Protein, Total 4.7 g/dL (6.4-8.2); Sodium Level 140 mmol/L (136-145); T4 Total, Thyroxin 13.5 ug/dL (4.8-13.9); Thyroid Stim Hormone (TSH) 0.09 uIU/mL (0.358-3.74)
== END ==
LOC: OLS.WHLCAR 05:00
PROVIDERS: PCP Family Medicine; Visit Provider Family Medicine
DX: E03.9 Hypothyroidism, unspecified (principal); J44.9 Chronic obstructive pulmonary disease, unspecified; R13.12 Dysphagia, oropharyngeal phase; I51.81 Takotsubo syndrome; I69.322 Dysarthria following cerebral infarction; I69.391 Dysphagia following cerebral infarction; I69.393 Ataxia following cerebral infarction
CPT/HCPCS: 36415; 80053; 84436; 84443; 85027

== ENCOUNTER → 2020-12-28 05:00 | Outpatient (REF) | payer MEDICARE, OTHER, SELFPAY ==
[2018-10-13 11:00] VITALS: BMI 29.6
[2020-12-28 07:50] LABS: Thyroid Stim Hormone (TSH) 1.33 uIU/mL (0.358-3.74)
== END ==
LOC: OLS.WHLEAS 05:00
PROVIDERS: PCP Family Medicine; Visit Provider Family Medicine
DX: J44.9 Chronic obstructive pulmonary disease, unspecified (principal); E03.9 Hypothyroidism, unspecified; R13.12 Dysphagia, oropharyngeal phase; I51.81 Takotsubo syndrome; I69.322 Dysarthria following cerebral infarction; I69.391 Dysphagia following cerebral infarction; I69.393 Ataxia following cerebral infarction
CPT/HCPCS: 36415; 84436; 84443

== ENCOUNTER → 2021-01-04 05:00 | Outpatient (REF) | payer MEDICARE, OTHER, SELFPAY ==
[2018-10-13 11:00] VITALS: BMI 29.6
[2021-01-04 07:22] LABS: Hematocrit 30.7 % (37-47); Hemoglobin 10.1 g/dL (12.0-15.0); Mean Corp Hgb Conc 32.9 g/dL (32-36); Mean Corpuscular Hgb 34.1 pg (27.0-32.0); Mean Corpuscular Volume 103.7 fL (81-99); Mean Platelet Vol. 9.6 fl (6.2-12.0); Platelet Count 166 K/mm3 (150-450); RBC Distribution Width CV 14.3 % (11.6-14.6); RBC Distribution Width SD 54.4 fl (35.1-43.9); Red Blood Count 2.96 M/mm3 (4.2-5.4); White Blood Count 6.2 K/mm3 (4.4-11.0)
[2021-01-04 07:42] LABS: Anion Gap 4 (5-15); BUN 14 mg/dL (7-18); BUN/Creat Ratio 8.2 RATIO (10-20); Chloride 101 mmol/L (98-107); EST Glomerular Filtration Rate 30 mL/min (>60); Est Glom Filt Rate - Afr Amer 37 mL/min (>60); Glucose 160 mg/dL (74-106); Potassium 3.3 mmol/L (3.5-5.1); Sodium Level 137 mmol/L (136-145); Thyroid Stim Hormone (TSH) 2.34 uIU/mL (0.358-3.74)
== END ==
LOC: OLS.WHLEAS 05:00
PROVIDERS: PCP Family Medicine; Visit Provider Family Medicine
DX: E11.9 Type 2 diabetes mellitus without complications (principal); J44.9 Chronic obstructive pulmonary disease, unspecified; R13.12 Dysphagia, oropharyngeal phase; I51.81 Takotsubo syndrome; I69.322 Dysarthria following cerebral infarction; I69.391 Dysphagia following cerebral infarction; I69.393 Ataxia following cerebral infarction
CPT/HCPCS: 36415; 80048; 84443; 85027

== ENCOUNTER → 2021-02-13 05:00 | Outpatient (REF) | payer MEDICARE, OTHER, SELFPAY ==
[2018-10-13 11:00] VITALS: BMI 29.6
[2021-02-13 08:33] LABS: T4 Total, Thyroxin 13.8 ug/dL (4.8-13.9); Thyroid Stim Hormone (TSH) 0.94 uIU/mL (0.358-3.74)
== END ==
LOC: OLS.WHLEAS 05:00
PROVIDERS: PCP Family Medicine; Visit Provider Family Medicine
DX: E03.9 Hypothyroidism, unspecified (principal); J44.9 Chronic obstructive pulmonary disease, unspecified; R13.12 Dysphagia, oropharyngeal phase; I51.81 Takotsubo syndrome; I69.322 Dysarthria following cerebral infarction; I69.391 Dysphagia following cerebral infarction; I69.393 Ataxia following cerebral infarction
CPT/HCPCS: 36415; 84436; 84443

== ENCOUNTER → 2021-04-05 05:00 | Outpatient (REF) | payer MEDICARE, OTHER, SELFPAY ==
[2018-10-13 11:00] VITALS: BMI 29.6
[2021-04-05 07:56] LABS: Hematocrit 33.2 % (37-47); Hemoglobin 11.3 g/dL (12.0-15.0); Mean Corpuscular Hgb 34.5 pg (27.0-32.0); Mean Corpuscular Volume 101.2 fL (81-99); Mean Platelet Vol. 9.2 fl (6.2-12.0); Platelet Count 187 K/mm3 (150-450); RBC Distribution Width CV 11.8 % (11.6-14.6); RBC Distribution Width SD 43.9 fl (35.1-43.9); Red Blood Count 3.28 M/mm3 (4.2-5.4); White Blood Count 6.2 K/mm3 (4.4-11.0)
[2021-04-05 08:15] LABS: Anion Gap 4 (5-15); BUN 8 mg/dL (7-18); BUN/Creat Ratio 6.4 RATIO (10-20); Calcium,Total 8.5 mg/dL (8.5-10.1); Chloride 99 mmol/L (98-107); Creatinine, Serum 1.25 mg/dL (0.55-1.02); EST Glomerular Filtration Rate 43 mL/min (>60); Est Glom Filt Rate - Afr Amer 53 mL/min (>60); Glucose 164 mg/dL (74-106); Sodium Level 134 mmol/L (136-145)
== END ==
LOC: OLS.WHLEAS 05:00
PROVIDERS: Referring Provider Family Medicine; Visit Provider Family Medicine
DX: E11.9 Type 2 diabetes mellitus without complications (principal); J44.9 Chronic obstructive pulmonary disease, unspecified; R13.12 Dysphagia, oropharyngeal phase; I51.81 Takotsubo syndrome; I69.322 Dysarthria following cerebral infarction; I69.391 Dysphagia following cerebral infarction; I69.393 Ataxia following cerebral infarction
CPT/HCPCS: 36415; 80048; 84443; 85027

== ENCOUNTER → 2021-06-03 04:00 | Outpatient (REF) | payer MEDICARE, OTHER, SELFPAY ==
[2018-10-13 11:00] VITALS: BMI 29.6
[2021-06-03 08:21] LABS: Cholesterol 123 mg/dL (200); High Density Lipoprotein 66 mg/dL; Triglycerides 60 mg/dL; Very Low Density Lipoprotein 12 mg/dL (5-40)
[2021-06-03 08:47] LABS: Hemoglobin A1c 7.7 % (3.8-5.6)
== END ==
LOC: OLS.WHLEAS 04:00
PROVIDERS: Referring Provider Family Medicine; Visit Provider Family Medicine
DX: E11.9 Type 2 diabetes mellitus without complications (principal); J44.9 Chronic obstructive pulmonary disease, unspecified; R13.12 Dysphagia, oropharyngeal phase; I51.81 Takotsubo syndrome; I69.322 Dysarthria following cerebral infarction; I69.391 Dysphagia following cerebral infarction; I69.393 Ataxia following cerebral infarction
CPT/HCPCS: 36415; 80061; 83036

== ENCOUNTER → 2021-07-05 05:00 | Outpatient (REF) | payer MEDICARE, OTHER, SELFPAY ==
[2021-07-05 07:27] LABS: Hematocrit 32.7 % (37-47); Hemoglobin 10.6 g/dL (12.0-15.0); Mean Corp Hgb Conc 32.4 g/dL (32-36); Mean Corpuscular Hgb 34.8 pg (27.0-32.0); Mean Corpuscular Volume 107.2 fL (81-99); Mean Platelet Vol. 9.4 fl (6.2-12.0); Platelet Count 171 K/mm3 (150-450); RBC Distribution Width CV 12.9 % (11.6-14.6); RBC Distribution Width SD 50.9 fl (35.1-43.9); Red Blood Count 3.05 M/mm3 (4.2-5.4); White Blood Count 5.8 K/mm3 (4.4-11.0)
[2021-07-05 08:03] LABS: Anion Gap 6 (5-15); BUN 26 mg/dL (7-18); BUN/Creat Ratio 13.5 RATIO (10-20); Calcium,Total 8.3 mg/dL (8.5-10.1); Chloride 109 mmol/L (98-107); Creatinine, Serum 1.92 mg/dL (0.55-1.02); EST Glomerular Filtration Rate 26 mL/min (>60); Est Glom Filt Rate - Afr Amer 32 mL/min (>60); Glucose 137 mg/dL (74-106); Sodium Level 142 mmol/L (136-145)
[2021-07-05 09:18] LABS: Vitamin B12 1329 pg/mL (211-911)
== END ==
LOC: OLS.WHLEAS 05:00
PROVIDERS: PCP Family Medicine; Visit Provider Family Medicine
DX: D51.9 Vitamin B12 deficiency anemia, unspecified (principal); J44.9 Chronic obstructive pulmonary disease, unspecified; I51.81 Takotsubo syndrome; H53.2 Diplopia; I25.10 Atherosclerotic heart disease of native coronary artery without angina pectoris; E78.5 Hyperlipidemia, unspecified
CPT/HCPCS: 36415; 80048; 82607; 84443; 85027

== ENCOUNTER → 2021-08-06 05:00 | Outpatient (REF) | payer MEDICARE, OTHER, SELFPAY ==
[2021-08-06 10:20] LABS: Hemoglobin 10.7 g/dL (12.0-15.0); Mean Corp Hgb Conc 31.5 g/dL (32-36); Mean Corpuscular Volume 107.9 fL (81-99); Mean Platelet Vol. 9.3 fl (6.2-12.0); Platelet Count 169 K/mm3 (150-450); RBC Distribution Width CV 12.4 % (11.6-14.6); RBC Distribution Width SD 48.8 fl (35.1-43.9); Red Blood Count 3.15 M/mm3 (4.2-5.4); White Blood Count 6.4 K/mm3 (4.4-11.0)
[2021-08-06 10:49] LABS: Anion Gap 8 (5-15); BUN 28 mg/dL (7-18); BUN/Creat Ratio 11.9 RATIO (10-20); Calcium,Total 8.3 mg/dL (8.5-10.1); Chloride 109 mmol/L (98-107); Cholesterol 123 mg/dL (200); Creatinine, Serum 2.35 mg/dL (0.55-1.02); EST Glomerular Filtration Rate 21 mL/min (>60); Est Glom Filt Rate - Afr Amer 25 mL/min (>60); Glucose 163 mg/dL (74-106); High Density Lipoprotein 75 mg/dL; Potassium 4.3 mmol/L (3.5-5.1); Sodium Level 142 mmol/L (136-145); Triglycerides 46 mg/dL; Very Low Density Lipoprotein 9 mg/dL (5-40)
[2021-08-06 11:13] LABS: Vitamin B12 1075 pg/mL (211-911)
[2021-08-06 11:19] LABS: Hemoglobin A1c 7.9 % (3.8-5.6)
== END ==
LOC: OLS.WHLEAS 05:00
PROVIDERS: PCP Family Medicine; Visit Provider Family Medicine
DX: E11.9 Type 2 diabetes mellitus without complications (principal); J44.9 Chronic obstructive pulmonary disease, unspecified; I51.81 Takotsubo syndrome; H53.2 Diplopia; I25.10 Atherosclerotic heart disease of native coronary artery without angina pectoris; E78.5 Hyperlipidemia, unspecified
CPT/HCPCS: 36415; 80048; 80061; 82607; 83036; 85027

== ENCOUNTER → 2021-08-21 05:00 | Outpatient (REF) | payer MEDICARE, OTHER, SELFPAY ==
[2021-08-21 07:34] LABS: Absolute Lymphocyte Count 1.39 X10^3/uL (0.83-4.51); Absolute Neutrophil Count 3.2 X10^3/uL (2.0-7.7); Basophil# 0.03 X10^3/uL; Basophil% 0.5 % (0-1); Eosinophils% 7.1 % (0-5); Hematocrit 33.3 % (37-47); Hemoglobin 10.7 g/dL (12.0-15.0); Lymphocyte # 1.39 X10^3/ul (0.83-4.51); Lymphocyte % 24.6 % (19-41); Mean Corp Hgb Conc 32.1 g/dL (32-36); Mean Corpuscular Hgb 33.9 pg (27.0-32.0); Mean Corpuscular Volume 105.4 fL (81-99); Mean Platelet Vol. 9.3 fl (6.2-12.0); Monocyte# 0.63 X10^3/uL; Monocyte% 11.2 % (0-10); NRBC Flagged by Analyzer 0 % (0-5); Neutrophil # 3.18 X10^3/uL (2.7-7.7); Neutrophil % 56.2 % (47-70); Platelet Count 171 K/mm3 (150-450); RBC Distribution Width CV 12.1 % (11.6-14.6); RBC Distribution Width SD 47.4 fl (35.1-43.9); Red Blood Count 3.16 M/mm3 (4.2-5.4); White Blood Count 5.7 K/mm3 (4.4-11.0)
[2021-08-21 08:00] LABS: Anion Gap 5 (5-15); BUN 20 mg/dL (7-18); BUN/Creat Ratio 9.2 RATIO (10-20); Calcium,Total 8.2 mg/dL (8.5-10.1); Chloride 110 mmol/L (98-107); Creatinine, Serum 2.18 mg/dL (0.55-1.02); EST Glomerular Filtration Rate 23 mL/min (>60); Est Glom Filt Rate - Afr Amer 28 mL/min (>60); Glucose 193 mg/dL (74-106); Potassium 4.6 mmol/L (3.5-5.1); Sodium Level 141 mmol/L (136-145); Thyroid Stim Hormone (TSH) 1.15 uIU/mL (0.358-3.74)
== END ==
LOC: OLS.WHLEAS 05:00
PROVIDERS: PCP Family Medicine; Visit Provider Family Medicine
DX: E03.9 Hypothyroidism, unspecified (principal); J44.9 Chronic obstructive pulmonary disease, unspecified; I51.81 Takotsubo syndrome; H53.2 Diplopia; D64.9 Anemia, unspecified; I25.10 Atherosclerotic heart disease of native coronary artery without angina pectoris; E78.5 Hyperlipidemia, unspecified; E11.9 Type 2 diabetes mellitus without complications
CPT/HCPCS: 36415; 80048; 84443; 85025

== ENCOUNTER → 2021-09-18 05:00 | Outpatient (REF) | payer MEDICARE, OTHER, SELFPAY ==
[2021-09-18 08:22] LABS: Absolute Lymphocyte Count 1.36 X10^3/uL (0.83-4.51); Basophil# 0.04 X10^3/uL; Basophil% 0.6 % (0-1); Eosinophil# 0.55 X10^3/uL; Eosinophils% 8.2 % (0-5); Hematocrit 34.7 % (37-47); Lymphocyte # 1.36 X10^3/ul (0.83-4.51); Lymphocyte % 20.3 % (19-41); Mean Corp Hgb Conc 31.7 g/dL (32-36); Mean Corpuscular Hgb 33.3 pg (27.0-32.0); Mean Corpuscular Volume 105.2 fL (81-99); Mean Platelet Vol. 9.8 fl (6.2-12.0); Monocyte# 0.74 X10^3/uL; NRBC Flagged by Analyzer 0 % (0-5); Neutrophil # 4.01 X10^3/uL (2.7-7.7); Neutrophil % 59.8 % (47-70); Platelet Count 191 K/mm3 (150-450); RBC Distribution Width CV 12.7 % (11.6-14.6); White Blood Count 6.7 K/mm3 (4.4-11.0)
[2021-09-18 08:32] LABS: Anion Gap 3 (5-15); BUN 23 mg/dL (7-18); BUN/Creat Ratio 13.1 RATIO (10-20); Calcium,Total 8.5 mg/dL (8.5-10.1); Chloride 112 mmol/L (98-107); Creatinine, Serum 1.75 mg/dL (0.55-1.02); EST Glomerular Filtration Rate 29 mL/min (>60); Est Glom Filt Rate - Afr Amer 36 mL/min (>60); Glucose 132 mg/dL (74-106); Potassium 5.6 mmol/L (3.5-5.1); Sodium Level 141 mmol/L (136-145)
== END ==
LOC: OLS.WHLEAS 05:00
PROVIDERS: PCP Family Medicine; Visit Provider Family Medicine
DX: E11.9 Type 2 diabetes mellitus without complications (principal); J44.9 Chronic obstructive pulmonary disease, unspecified; I51.81 Takotsubo syndrome; H53.2 Diplopia; D64.9 Anemia, unspecified; I25.10 Atherosclerotic heart disease of native coronary artery without angina pectoris; E78.5 Hyperlipidemia, unspecified
CPT/HCPCS: 36415; 80048; 85025

== ENCOUNTER → 2021-10-16 04:00 | Outpatient (REF) | payer MEDICARE, OTHER, SELFPAY ==
[2021-10-16 08:38] LABS: Absolute Lymphocyte Count 1.47 X10^3/uL (0.83-4.51); Absolute Neutrophil Count 4.3 X10^3/uL (2.0-7.7); Basophil# 0.04 X10^3/uL; Basophil% 0.5 % (0-1); Eosinophil# 0.84 X10^3/uL; Eosinophils% 11.5 % (0-5); Hematocrit 35.3 % (37-47); Hemoglobin 11.5 g/dL (12.0-15.0); Lymphocyte # 1.47 X10^3/ul (0.83-4.51); Lymphocyte % 20.2 % (19-41); Mean Corp Hgb Conc 32.6 g/dL (32-36); Mean Corpuscular Hgb 33.7 pg (27.0-32.0); Mean Corpuscular Volume 103.5 fL (81-99); Mean Platelet Vol. 10.5 fl (6.2-12.0); Monocyte# 0.65 X10^3/uL; Monocyte% 8.9 % (0-10); NRBC Flagged by Analyzer 0 % (0-5); Neutrophil # 4.25 X10^3/uL (2.7-7.7); Neutrophil % 58.5 % (47-70); POSITIVE COUNT YES; Platelet Count 162 K/mm3 (150-450); RBC Distribution Width CV 13.2 % (11.6-14.6); RBC Distribution Width SD 50.8 fl (35.1-43.9); Red Blood Count 3.41 M/mm3 (4.2-5.4); White Blood Count 7.3 K/mm3 (4.4-11.0)
[2021-10-16 08:40] LABS: Differential Indicated SCAN CRITERIA MET
[2021-10-16 08:51] LABS: Anion Gap 13 (5-15); BUN 20 mg/dL (7-18); BUN/Creat Ratio 12.2 RATIO (10-20); Calcium,Total 7.5 mg/dL (8.5-10.1); Chloride 109 mmol/L (98-107); Creatinine, Serum 1.64 mg/dL (0.55-1.02); EST Glomerular Filtration Rate 32 mL/min (>60); Est Glom Filt Rate - Afr Amer 38 mL/min (>60); Glucose 73 mg/dL (74-106); Potassium 4.8 mmol/L (3.5-5.1); Sodium Level 140 mmol/L (136-145)
== END ==
LOC: OLS.WHLEAS 04:00
PROVIDERS: PCP Family Medicine; Referring Provider Family Medicine; Visit Provider Family Medicine
DX: E11.9 Type 2 diabetes mellitus without complications (principal); J44.9 Chronic obstructive pulmonary disease, unspecified; I51.81 Takotsubo syndrome; H53.2 Diplopia; I25.10 Atherosclerotic heart disease of native coronary artery without angina pectoris; E78.5 Hyperlipidemia, unspecified; D64.9 Anemia, unspecified
CPT/HCPCS: 36415; 80048; 85025

== ENCOUNTER 2021-11-05 05:00 | Outpatient (REF) | payer MEDICARE, OTHER, SELFPAY ==
[2021-11-05 10:24] LABS: Hemoglobin A1c 7.2 % (3.8-5.6)
== END 2021-11-05 23:59 | disposition home or self-care (01) ==
LOC: OLS.WHLEAS 05:00
PROVIDERS: PCP Family Medicine; Visit Provider Family Medicine
DX: E11.9 Type 2 diabetes mellitus without complications (principal); J44.9 Chronic obstructive pulmonary disease, unspecified; I51.81 Takotsubo syndrome; H53.2 Diplopia; I25.10 Atherosclerotic heart disease of native coronary artery without angina pectoris; E78.5 Hyperlipidemia, unspecified
CPT/HCPCS: 36415; 83036

== ENCOUNTER → 2021-11-20 | Outpatient (REF) | payer MEDICARE, OTHER, SELFPAY ==
[2021-11-20 08:51] LABS: Absolute Lymphocyte Count 1.18 X10^3/uL (0.83-4.51); Absolute Neutrophil Count 4.5 X10^3/uL (2.0-7.7); Basophil# 0.04 X10^3/uL; Basophil% 0.6 % (0-1); Eosinophil# 0.86 X10^3/uL; Eosinophils% 11.9 % (0-5); Hematocrit 33.8 % (37-47); Hemoglobin 10.8 g/dL (12.0-15.0); Lymphocyte # 1.18 X10^3/ul (0.83-4.51); Lymphocyte % 16.3 % (19-41); Mean Corpuscular Hgb 33.4 pg (27.0-32.0); Mean Corpuscular Volume 104.6 fL (81-99); Mean Platelet Vol. 9.4 fl (6.2-12.0); Monocyte% 9.7 % (0-10); NRBC Flagged by Analyzer 0 % (0-5); Neutrophil # 4.45 X10^3/uL (2.7-7.7); Neutrophil % 61.4 % (47-70); Platelet Count 174 K/mm3 (150-450); RBC Distribution Width CV 13.3 % (11.6-14.6); RBC Distribution Width SD 51.5 fl (35.1-43.9); Red Blood Count 3.23 M/mm3 (4.2-5.4); White Blood Count 7.2 K/mm3 (4.4-11.0)
[2021-11-20 09:09] LABS: Anion Gap 4 (5-15); BUN 20 mg/dL (7-18); BUN/Creat Ratio 11.8 RATIO (10-20); Calcium,Total 8.1 mg/dL (8.5-10.1); Chloride 110 mmol/L (98-107); Creatinine, Serum 1.69 mg/dL (0.55-1.02); EST Glomerular Filtration Rate 31 mL/min (>60); Est Glom Filt Rate - Afr Amer 37 mL/min (>60); Glucose 148 mg/dL (74-106); Potassium 4.5 mmol/L (3.5-5.1); Sodium Level 141 mmol/L (136-145)
== END | disposition home or self-care (01) ==
LOC: OLS.WHLEAS 05:00
PROVIDERS: PCP Family Medicine; Visit Provider Family Medicine
DX: J44.9 Chronic obstructive pulmonary disease, unspecified (principal); E11.9 Type 2 diabetes mellitus without complications; I51.81 Takotsubo syndrome; H53.2 Diplopia; D64.9 Anemia, unspecified; I25.10 Atherosclerotic heart disease of native coronary artery without angina pectoris; E78.5 Hyperlipidemia, unspecified
CPT/HCPCS: 36415; 80048; 85025

== ENCOUNTER → 2021-12-18 | Outpatient (REF) | payer MEDICARE, OTHER, SELFPAY ==
[2021-12-18 08:34] LABS: Absolute Lymphocyte Count 0.93 X10^3/uL (0.83-4.51); Absolute Neutrophil Count 4.4 X10^3/uL (2.0-7.7); Basophil# 0.04 X10^3/uL; Basophil% 0.6 % (0-1); Eosinophil# 0.94 X10^3/uL; Eosinophils% 13.5 % (0-5); Hematocrit 34.5 % (37-47); Hemoglobin 11.6 g/dL (12.0-15.0); Lymphocyte # 0.93 X10^3/ul (0.83-4.51); Lymphocyte % 13.4 % (19-41); Mean Corp Hgb Conc 33.6 g/dL (32-36); Mean Corpuscular Hgb 34.3 pg (27.0-32.0); Mean Corpuscular Volume 102.1 fL (81-99); Mean Platelet Vol. 9.8 fl (6.2-12.0); Monocyte# 0.63 X10^3/uL; Monocyte% 9.1 % (0-10); NRBC Flagged by Analyzer 0 % (0-5); Neutrophil # 4.39 X10^3/uL (2.7-7.7); Neutrophil % 63.1 % (47-70); Platelet Count 170 K/mm3 (150-450); RBC Distribution Width CV 12.7 % (11.6-14.6); RBC Distribution Width SD 47.8 fl (35.1-43.9); Red Blood Count 3.38 M/mm3 (4.2-5.4)
[2021-12-18 08:47] LABS: Anion Gap 5 (5-15); BUN 19 mg/dL (7-18); BUN/Creat Ratio 10.5 RATIO (10-20); Calcium,Total 8.4 mg/dL (8.5-10.1); Chloride 107 mmol/L (98-107); Creatinine, Serum 1.81 mg/dL (0.55-1.02); EST Glomerular Filtration Rate 28 mL/min (>60); Est Glom Filt Rate - Afr Amer 34 mL/min (>60); Glucose 180 mg/dL (74-106); Potassium 4.7 mmol/L (3.5-5.1); Sodium Level 140 mmol/L (136-145)
== END | disposition home or self-care (01) ==
LOC: OLS.WHLEAS 05:00
PROVIDERS: PCP Family Medicine; Visit Provider Family Medicine
DX: E11.9 Type 2 diabetes mellitus without complications (principal); J44.9 Chronic obstructive pulmonary disease, unspecified; I51.81 Takotsubo syndrome; H53.2 Diplopia; D64.9 Anemia, unspecified; I25.10 Atherosclerotic heart disease of native coronary artery without angina pectoris; E78.5 Hyperlipidemia, unspecified
CPT/HCPCS: 36415; 80048; 85025

== ENCOUNTER → 2022-01-15 | Outpatient (REF) | payer MEDICARE, OTHER, SELFPAY ==
[2022-01-15 08:53] LABS: Absolute Lymphocyte Count 1.23 X10^3/uL (0.83-4.51); Absolute Neutrophil Count 4.1 X10^3/uL (2.0-7.7); Basophil# 0.05 X10^3/uL; Basophil% 0.7 % (0-1); Eosinophil# 0.96 X10^3/uL; Eosinophils% 13.8 % (0-5); Hematocrit 33.9 % (37-47); Hemoglobin 11.3 g/dL (12.0-15.0); Lymphocyte # 1.23 X10^3/ul (0.83-4.51); Lymphocyte % 17.6 % (19-41); Mean Corp Hgb Conc 33.3 g/dL (32-36); Mean Corpuscular Hgb 33.8 pg (27.0-32.0); Mean Corpuscular Volume 101.5 fL (81-99); Mean Platelet Vol. 9.5 fl (6.2-12.0); Monocyte# 0.63 X10^3/uL; NRBC Flagged by Analyzer 0 % (0-5); Neutrophil # 4.08 X10^3/uL (2.7-7.7); Neutrophil % 58.6 % (47-70); Platelet Count 175 K/mm3 (150-450); RBC Distribution Width CV 12.5 % (11.6-14.6); Red Blood Count 3.34 M/mm3 (4.2-5.4)
[2022-01-15 09:05] LABS: Anion Gap 4 (5-15); BUN 19 mg/dL (7-18); Calcium,Total 8.2 mg/dL (8.5-10.1); Chloride 108 mmol/L (98-107); Creatinine, Serum 1.46 mg/dL (0.55-1.02); EST Glomerular Filtration Rate 36 mL/min (>60); Est Glom Filt Rate - Afr Amer 44 mL/min (>60); Glucose 172 mg/dL (74-106); Potassium 4.3 mmol/L (3.5-5.1); Sodium Level 141 mmol/L (136-145)
== END | disposition home or self-care (01) ==
LOC: OLS.WHLEAS 05:00
PROVIDERS: PCP Family Medicine; Visit Provider Family Medicine
DX: E11.9 Type 2 diabetes mellitus without complications (principal); J44.9 Chronic obstructive pulmonary disease, unspecified; I51.81 Takotsubo syndrome; H53.2 Diplopia; D64.9 Anemia, unspecified; I25.10 Atherosclerotic heart disease of native coronary artery without angina pectoris; E78.5 Hyperlipidemia, unspecified
CPT/HCPCS: 36415; 80048; 85025

== ENCOUNTER → 2022-02-04 | Outpatient (REF) | payer MEDICARE, OTHER, SELFPAY ==
[2022-02-04 07:50] LABS: Hemoglobin A1c 7.8 % (3.8-5.6)
== END | disposition home or self-care (01) ==
LOC: OLS.WHLEAS 05:00
PROVIDERS: PCP Family Medicine; Visit Provider Family Medicine
DX: E11.9 Type 2 diabetes mellitus without complications (principal); J44.9 Chronic obstructive pulmonary disease, unspecified; I51.81 Takotsubo syndrome; H53.2 Diplopia; D64.9 Anemia, unspecified; I25.10 Atherosclerotic heart disease of native coronary artery without angina pectoris; E78.5 Hyperlipidemia, unspecified
CPT/HCPCS: 36415; 83036

== ENCOUNTER → 2022-02-19 | Outpatient (REF) | payer MEDICARE, OTHER, SELFPAY ==
[2022-02-19 10:07] LABS: Absolute Lymphocyte Count 1.27 X10^3/uL (0.83-4.51); Absolute Neutrophil Count 4.2 X10^3/uL (2.0-7.7); Basophil# 0.04 X10^3/uL; Basophil% 0.5 % (0-1); Eosinophil# 0.93 X10^3/uL; Eosinophils% 12.8 % (0-5); Hematocrit 35.1 % (37-47); Hemoglobin 11.6 g/dL (12.0-15.0); Lymphocyte # 1.27 X10^3/ul (0.83-4.51); Lymphocyte % 17.4 % (19-41); Mean Corpuscular Hgb 32.8 pg (27.0-32.0); Mean Corpuscular Volume 99.2 fL (81-99); Mean Platelet Vol. 11.2 fl (6.2-12.0); Monocyte# 0.81 X10^3/uL; Monocyte% 11.1 % (0-10); NRBC Flagged by Analyzer 0 % (0-5); Neutrophil # 4.21 X10^3/uL (2.7-7.7); Neutrophil % 57.8 % (47-70); Platelet Count 133 K/mm3 (150-450); RBC Distribution Width CV 12.8 % (11.6-14.6); RBC Distribution Width SD 46.7 fl (35.1-43.9); Red Blood Count 3.54 M/mm3 (4.2-5.4); White Blood Count 7.3 K/mm3 (4.4-11.0)
[2022-02-19 10:28] LABS: Anion Gap 6 (5-15); BUN 18 mg/dL (7-18); BUN/Creat Ratio 13.3 RATIO (10-20); Calcium,Total 8.4 mg/dL (8.5-10.1); Chloride 110 mmol/L (98-107); Cholesterol 126 mg/dL (200); Creatinine, Serum 1.35 mg/dL (0.55-1.02); EST Glomerular Filtration Rate 40 mL/min (>60); Est Glom Filt Rate - Afr Amer 48 mL/min (>60); Glucose 92 mg/dL (74-106); High Density Lipoprotein 71 mg/dL; Potassium 4.6 mmol/L (3.5-5.1); Sodium Level 143 mmol/L (136-145); Thyroid Stim Hormone (TSH) 0.64 uIU/mL (0.358-3.74); Triglycerides 45 mg/dL; Very Low Density Lipoprotein 9 mg/dL (5-40)
[2022-02-19 10:36] LABS: Vitamin B12 1244 pg/mL (211-911)
== END | disposition home or self-care (01) ==
LOC: OLS.WHLEAS 05:15
PROVIDERS: PCP Family Medicine; Visit Provider Family Medicine
DX: E11.9 Type 2 diabetes mellitus without complications (principal); J44.9 Chronic obstructive pulmonary disease, unspecified; I51.81 Takotsubo syndrome; H53.2 Diplopia; D64.9 Anemia, unspecified; I25.10 Atherosclerotic heart disease of native coronary artery without angina pectoris; E78.5 Hyperlipidemia, unspecified; E53.8 Deficiency of other specified B group vitamins; E03.9 Hypothyroidism, unspecified
CPT/HCPCS: 36415; 80048; 80061; 82607; 84443; 85025

== ENCOUNTER → 2022-03-19 | Outpatient (REF) | payer MEDICARE, OTHER, SELFPAY ==
[2022-03-19 09:20] LABS: Absolute Lymphocyte Count 1.12 X10^3/uL (0.83-4.51); Absolute Neutrophil Count 5.8 X10^3/uL (2.0-7.7); Basophil# 0.03 X10^3/uL; Basophil% 0.4 % (0-1); Eosinophil# 0.77 X10^3/uL; Eosinophils% 9.1 % (0-5); Hematocrit 34.7 % (37-47); Hemoglobin 11.1 g/dL (12.0-15.0); Lymphocyte # 1.12 X10^3/ul (0.83-4.51); Lymphocyte % 13.2 % (19-41); Mean Corpuscular Volume 103.3 fL (81-99); Mean Platelet Vol. 9.5 fl (6.2-12.0); Monocyte# 0.81 X10^3/uL; Monocyte% 9.5 % (0-10); NRBC Flagged by Analyzer 0 % (0-5); Neutrophil # 5.75 X10^3/uL (2.7-7.7); Neutrophil % 67.6 % (47-70); Platelet Count 195 K/mm3 (150-450); RBC Distribution Width SD 49.6 fl (35.1-43.9); Red Blood Count 3.36 M/mm3 (4.2-5.4); White Blood Count 8.5 K/mm3 (4.4-11.0)
[2022-03-19 09:25] LABS: Anion Gap 3 (5-15); BUN 14 mg/dL (7-18); BUN/Creat Ratio 10.2 RATIO (10-20); Calcium,Total 8.4 mg/dL (8.5-10.1); Chloride 110 mmol/L (98-107); Creatinine, Serum 1.37 mg/dL (0.55-1.02); EST Glomerular Filtration Rate 39 mL/min (>60); Est Glom Filt Rate - Afr Amer 47 mL/min (>60); Glucose 125 mg/dL (74-106); Potassium 4.3 mmol/L (3.5-5.1); Sodium Level 140 mmol/L (136-145)
== END | disposition home or self-care (01) ==
LOC: OLS.WHLEAS 05:00
PROVIDERS: PCP Family Medicine; Visit Provider Family Medicine
DX: J44.9 Chronic obstructive pulmonary disease, unspecified (principal); E11.9 Type 2 diabetes mellitus without complications; I51.81 Takotsubo syndrome; H53.2 Diplopia; D64.9 Anemia, unspecified; I25.10 Atherosclerotic heart disease of native coronary artery without angina pectoris; E78.5 Hyperlipidemia, unspecified
CPT/HCPCS: 36415; 80048; 85025

== ENCOUNTER → 2022-04-16 05:00 | Outpatient (REF) | payer MEDICARE, OTHER, SELFPAY ==
[2022-04-16 09:15] LABS: Absolute Lymphocyte Count 1.31 X10^3/uL (0.83-4.51); Absolute Neutrophil Count 3.7 X10^3/uL (2.0-7.7); Basophil# 0.04 X10^3/uL; Basophil% 0.6 % (0-1); Eosinophil# 0.74 X10^3/uL; Eosinophils% 11.3 % (0-5); Hematocrit 34.6 % (37-47); Hemoglobin 10.9 g/dL (12.0-15.0); Lymphocyte # 1.31 X10^3/ul (0.83-4.51); Mean Corp Hgb Conc 31.5 g/dL (32-36); Mean Corpuscular Hgb 33.1 pg (27.0-32.0); Mean Corpuscular Volume 105.2 fL (81-99); Mean Platelet Vol. 9.6 fl (6.2-12.0); Monocyte# 0.76 X10^3/uL; Monocyte% 11.6 % (0-10); NRBC Flagged by Analyzer 0 % (0-5); Neutrophil # 3.68 X10^3/uL (2.7-7.7); Platelet Count 191 K/mm3 (150-450); RBC Distribution Width CV 13.6 % (11.6-14.6); RBC Distribution Width SD 52.7 fl (35.1-43.9); Red Blood Count 3.29 M/mm3 (4.2-5.4); White Blood Count 6.6 K/mm3 (4.4-11.0)
[2022-04-16 09:29] LABS: Anion Gap 4 (5-15); BUN 15 mg/dL (7-18); BUN/Creat Ratio 10.7 RATIO (10-20); Calcium,Total 8.3 mg/dL (8.5-10.1); Chloride 109 mmol/L (98-107); EST Glomerular Filtration Rate 38 mL/min (>60); Est Glom Filt Rate - Afr Amer 46 mL/min (>60); Glucose 119 mg/dL (74-106); Potassium 4.4 mmol/L (3.5-5.1); Sodium Level 140 mmol/L (136-145)
== END ==
LOC: OLS.WHLEAS 05:00
PROVIDERS: PCP Family Medicine; Visit Provider Family Medicine
DX: E11.9 Type 2 diabetes mellitus without complications (principal); J44.9 Chronic obstructive pulmonary disease, unspecified; I51.81 Takotsubo syndrome; H53.2 Diplopia; D64.9 Anemia, unspecified; I25.10 Atherosclerotic heart disease of native coronary artery without angina pectoris; E78.5 Hyperlipidemia, unspecified
CPT/HCPCS: 36415; 80048; 85025

== ENCOUNTER → 2022-05-06 | Outpatient (REF) | payer MEDICARE, OTHER, SELFPAY ==
[2022-05-06 09:36] LABS: Hemoglobin A1c 6.7 % (3.8-5.6)
== END ==
LOC: OLS.WHLEAS 04:00
PROVIDERS: PCP Family Medicine; Referring Provider Family Medicine; Visit Provider Family Medicine
DX: E11.9 Type 2 diabetes mellitus without complications (principal); J44.9 Chronic obstructive pulmonary disease, unspecified; I51.81 Takotsubo syndrome; H53.2 Diplopia; I25.10 Atherosclerotic heart disease of native coronary artery without angina pectoris; E78.5 Hyperlipidemia, unspecified
CPT/HCPCS: 36415; 83036

== ENCOUNTER → 2022-05-21 | Outpatient (REF) | payer MEDICARE, OTHER, SELFPAY ==
[2022-05-21 09:23] LABS: Absolute Lymphocyte Count 1.31 X10^3/uL (0.83-4.51); Basophil# 0.05 X10^3/uL; Basophil% 0.7 % (0-1); Eosinophil# 0.77 X10^3/uL; Eosinophils% 10.9 % (0-5); Hematocrit 34.1 % (37-47); Hemoglobin 11.4 g/dL (12.0-15.0); Lymphocyte # 1.31 X10^3/ul (0.83-4.51); Lymphocyte % 18.5 % (19-41); Mean Corp Hgb Conc 33.4 g/dL (32-36); Mean Corpuscular Hgb 33.3 pg (27.0-32.0); Mean Corpuscular Volume 99.7 fL (81-99); Mean Platelet Vol. 10.1 fl (6.2-12.0); Monocyte# 0.95 X10^3/uL; Monocyte% 13.4 % (0-10); NRBC Flagged by Analyzer 0 % (0-5); Neutrophil # 3.96 X10^3/uL (2.7-7.7); Neutrophil % 56.1 % (47-70); Platelet Count 170 K/mm3 (150-450); RBC Distribution Width CV 13.7 % (11.6-14.6); RBC Distribution Width SD 50.4 fl (35.1-43.9); Red Blood Count 3.42 M/mm3 (4.2-5.4); White Blood Count 7.1 K/mm3 (4.4-11.0)
[2022-05-21 09:45] LABS: Anion Gap 7 (5-15); BUN 12 mg/dL (7-18); Calcium,Total 8.2 mg/dL (8.5-10.1); Chloride 109 mmol/L (98-107); Creatinine, Serum 1.33 mg/dL (0.55-1.02); EST Glomerular Filtration Rate 40 mL/min (>60); Est Glom Filt Rate - Afr Amer 49 mL/min (>60); Glucose 81 mg/dL (74-106); Potassium 4.4 mmol/L (3.5-5.1); Sodium Level 144 mmol/L (136-145)
== END ==
LOC: OLS.WHLEAS 06:30
PROVIDERS: PCP Family Medicine; Visit Provider Family Medicine
DX: E11.9 Type 2 diabetes mellitus without complications (principal); J44.9 Chronic obstructive pulmonary disease, unspecified; I51.81 Takotsubo syndrome; H53.2 Diplopia; D64.9 Anemia, unspecified; I25.10 Atherosclerotic heart disease of native coronary artery without angina pectoris; E78.5 Hyperlipidemia, unspecified
CPT/HCPCS: 36415; 80048; 85025

== ENCOUNTER → 2022-06-18 | Outpatient (REF) | payer MEDICARE, OTHER, SELFPAY ==
[2022-06-18 09:18] LABS: Absolute Lymphocyte Count 1.46 X10^3/uL (0.83-4.51); Basophil# 0.05 X10^3/uL; Basophil% 0.7 % (0-1); Eosinophils% 11.2 % (0-5); Hematocrit 34.4 % (37-47); Hemoglobin 11.4 g/dL (12.0-15.0); Lymphocyte # 1.46 X10^3/ul (0.83-4.51); Lymphocyte % 20.4 % (19-41); Mean Corp Hgb Conc 33.1 g/dL (32-36); Mean Corpuscular Hgb 34.5 pg (27.0-32.0); Mean Corpuscular Volume 104.2 fL (81-99); Mean Platelet Vol. 9.6 fl (6.2-12.0); Monocyte# 0.89 X10^3/uL; Monocyte% 12.4 % (0-10); NRBC Flagged by Analyzer 0 % (0-5); Neutrophil # 3.95 X10^3/uL (2.7-7.7); Platelet Count 169 K/mm3 (150-450); RBC Distribution Width CV 13.3 % (11.6-14.6); RBC Distribution Width SD 51.2 fl (35.1-43.9); White Blood Count 7.2 K/mm3 (4.4-11.0)
[2022-06-18 09:29] LABS: Anion Gap 4 (5-15); BUN 16 mg/dL (7-18); BUN/Creat Ratio 12.5 RATIO (10-20); Calcium,Total 8.2 mg/dL (8.5-10.1); Chloride 108 mmol/L (98-107); Creatinine, Serum 1.28 mg/dL (0.55-1.02); EST Glomerular Filtration Rate 42 mL/min (>60); Est Glom Filt Rate - Afr Amer 51 mL/min (>60); Glucose 118 mg/dL (74-106); Potassium 4.4 mmol/L (3.5-5.1); Sodium Level 141 mmol/L (136-145)
== END ==
LOC: OLS.WHLEAS 05:00
PROVIDERS: PCP Family Medicine; Visit Provider Family Medicine
DX: E11.9 Type 2 diabetes mellitus without complications (principal); J44.9 Chronic obstructive pulmonary disease, unspecified; I51.81 Takotsubo syndrome; H53.2 Diplopia; D64.9 Anemia, unspecified; I25.10 Atherosclerotic heart disease of native coronary artery without angina pectoris; E78.5 Hyperlipidemia, unspecified
CPT/HCPCS: 36415; 80048; 85025

== ENCOUNTER → 2022-07-23 | Outpatient (REF) | payer MEDICARE, OTHER, SELFPAY ==
[2022-07-23 08:32] LABS: Absolute Lymphocyte Count 1.43 X10^3/uL (0.83-4.51); Absolute Neutrophil Count 3.9 X10^3/uL (2.0-7.7); Basophil# 0.05 X10^3/uL; Basophil% 0.7 % (0-1); Eosinophils% 11.7 % (0-5); Hematocrit 34.8 % (37-47); Lymphocyte # 1.43 X10^3/ul (0.83-4.51); Lymphocyte % 20.9 % (19-41); Mean Corp Hgb Conc 31.6 g/dL (32-36); Mean Corpuscular Hgb 33.4 pg (27.0-32.0); Mean Corpuscular Volume 105.8 fL (81-99); Mean Platelet Vol. 9.3 fl (6.2-12.0); Monocyte# 0.69 X10^3/uL; Monocyte% 10.1 % (0-10); NRBC Flagged by Analyzer 0 % (0-5); Neutrophil # 3.85 X10^3/uL (2.7-7.7); Neutrophil % 56.3 % (47-70); Platelet Count 160 K/mm3 (150-450); RBC Distribution Width CV 12.5 % (11.6-14.6); RBC Distribution Width SD 49.1 fl (35.1-43.9); Red Blood Count 3.29 M/mm3 (4.2-5.4); White Blood Count 6.8 K/mm3 (4.4-11.0)
[2022-07-23 08:36] LABS: Anion Gap 5 (5-15); BUN 17 mg/dL (7-18); BUN/Creat Ratio 13.4 RATIO (10-20); Calcium,Total 8.4 mg/dL (8.5-10.1); Chloride 109 mmol/L (98-107); Creatinine, Serum 1.27 mg/dL (0.55-1.02); EST Glomerular Filtration Rate 42 mL/min (>60); Est Glom Filt Rate - Afr Amer 51 mL/min (>60); Glucose 94 mg/dL (74-106); Potassium 4.4 mmol/L (3.5-5.1); Sodium Level 143 mmol/L (136-145)
== END ==
LOC: OLS.WHLEAS 04:00
PROVIDERS: PCP Family Medicine; Referring Provider Family Medicine; Visit Provider Family Medicine
DX: J44.9 Chronic obstructive pulmonary disease, unspecified (principal); E11.9 Type 2 diabetes mellitus without complications; I51.81 Takotsubo syndrome; H53.2 Diplopia; D64.9 Anemia, unspecified; I25.10 Atherosclerotic heart disease of native coronary artery without angina pectoris; E78.5 Hyperlipidemia, unspecified
CPT/HCPCS: 36415; 80048; 85025

== ENCOUNTER → 2022-08-05 | Outpatient (REF) | payer MEDICARE, OTHER, SELFPAY ==
[2022-08-05 09:55] LABS: Hemoglobin A1c 6.7 % (3.8-5.6)
== END ==
LOC: OLS.WHLEAS 05:00
PROVIDERS: PCP Family Medicine; Visit Provider Family Medicine
DX: E11.9 Type 2 diabetes mellitus without complications (principal); J44.9 Chronic obstructive pulmonary disease, unspecified; I51.81 Takotsubo syndrome; H53.2 Diplopia; D64.9 Anemia, unspecified; I25.10 Atherosclerotic heart disease of native coronary artery without angina pectoris; E78.5 Hyperlipidemia, unspecified
CPT/HCPCS: 36415; 83036

== ENCOUNTER → 2022-08-21 | Outpatient (REF) | payer MEDICARE, OTHER, SELFPAY ==
[2022-08-21 05:34] LABS: Absolute Lymphocyte Count 1.51 X10^3/uL (0.83-4.51); Absolute Neutrophil Count 4.2 X10^3/uL (2.0-7.7); Basophil# 0.04 X10^3/uL; Basophil% 0.5 % (0-1); Eosinophil# 0.62 X10^3/uL; Eosinophils% 8.4 % (0-5); Hematocrit 35.5 % (37-47); Hemoglobin 11.4 g/dL (12.0-15.0); Lymphocyte # 1.51 X10^3/ul (0.83-4.51); Lymphocyte % 20.4 % (19-41); Mean Corp Hgb Conc 32.1 g/dL (32-36); Mean Corpuscular Hgb 33.4 pg (27.0-32.0); Mean Corpuscular Volume 104.1 fL (81-99); Mean Platelet Vol. 9.6 fl (6.2-12.0); Monocyte% 13.5 % (0-10); NRBC Flagged by Analyzer 0 % (0-5); Neutrophil # 4.21 X10^3/uL (2.7-7.7); Neutrophil % 56.9 % (47-70); Platelet Count 156 K/mm3 (150-450); RBC Distribution Width CV 12.4 % (11.6-14.6); RBC Distribution Width SD 47.4 fl (35.1-43.9); Red Blood Count 3.41 M/mm3 (4.2-5.4); White Blood Count 7.4 K/mm3 (4.4-11.0)
[2022-08-21 06:09] LABS: Anion Gap 5 (5-15); BUN 14 mg/dL (7-18); BUN/Creat Ratio 10.6 RATIO (10-20); Calcium,Total 8.3 mg/dL (8.5-10.1); Chloride 108 mmol/L (98-107); Cholesterol 105 mg/dL (200); Creatinine, Serum 1.32 mg/dL (0.55-1.02); EST Glomerular Filtration Rate 41 mL/min (>60); Est Glom Filt Rate - Afr Amer 49 mL/min (>60); Glucose 86 mg/dL (74-106); High Density Lipoprotein 65 mg/dL; Potassium 4.4 mmol/L (3.5-5.1); Sodium Level 143 mmol/L (136-145); Thyroid Stim Hormone (TSH) 0.62 uIU/mL (0.358-3.74); Triglycerides 53 mg/dL; Very Low Density Lipoprotein 11 mg/dL (5-40)
[2022-08-21 08:13] LABS: Vitamin B12 672 pg/mL (211-911)
== END ==
LOC: OLS.WHLEAS 05:10
PROVIDERS: PCP Family Medicine; Visit Provider Family Medicine
DX: R52 Pain, unspecified (principal); J44.9 Chronic obstructive pulmonary disease, unspecified; E11.22 Type 2 diabetes mellitus with diabetic chronic kidney disease; N18.4 Chronic kidney disease, stage 4 (severe); I51.81 Takotsubo syndrome; I25.10 Atherosclerotic heart disease of native coronary artery without angina pectoris; E78.5 Hyperlipidemia, unspecified; E03.9 Hypothyroidism, unspecified
CPT/HCPCS: 36415; 80048; 80061; 82607; 84443; 85025

== ENCOUNTER → 2022-09-17 | Outpatient (REF) | payer MEDICARE, OTHER, SELFPAY ==
[2022-09-17 07:21] LABS: Absolute Lymphocyte Count 1.36 X10^3/uL (0.83-4.51); Absolute Neutrophil Count 2.9 X10^3/uL (2.0-7.7); Basophil# 0.05 X10^3/uL; Basophil% 0.9 % (0-1); Eosinophil# 0.76 X10^3/uL; Hematocrit 36.9 % (37-47); Hemoglobin 11.8 g/dL (12.0-15.0); Lymphocyte # 1.36 X10^3/ul (0.83-4.51); Lymphocyte % 23.2 % (19-41); Mean Corpuscular Hgb 34.6 pg (27.0-32.0); Mean Corpuscular Volume 108.2 fL (81-99); Mean Platelet Vol. 10.3 fl (6.2-12.0); Monocyte# 0.82 X10^3/uL; NRBC Flagged by Analyzer 0 % (0-5); Neutrophil # 2.85 X10^3/uL (2.7-7.7); Neutrophil % 48.7 % (47-70); Platelet Count 137 K/mm3 (150-450); RBC Distribution Width CV 13.3 % (11.6-14.6); RBC Distribution Width SD 53.3 fl (35.1-43.9); Red Blood Count 3.41 M/mm3 (4.2-5.4); White Blood Count 5.9 K/mm3 (4.4-11.0)
[2022-09-17 07:34] LABS: Anion Gap 6 (5-15); BUN 15 mg/dL (7-18); BUN/Creat Ratio 11.3 RATIO (10-20); Calcium,Total 8.6 mg/dL (8.5-10.1); Chloride 109 mmol/L (98-107); Creatinine, Serum 1.33 mg/dL (0.55-1.02); EST Glomerular Filtration Rate 40 mL/min (>60); Est Glom Filt Rate - Afr Amer 49 mL/min (>60); Glucose 87 mg/dL (74-106); Potassium 4.6 mmol/L (3.5-5.1); Sodium Level 141 mmol/L (136-145)
== END ==
LOC: OLS.WHLEAS 05:00
PROVIDERS: PCP Family Medicine; Visit Provider Family Medicine
DX: R52 Pain, unspecified (principal); J44.9 Chronic obstructive pulmonary disease, unspecified; E11.22 Type 2 diabetes mellitus with diabetic chronic kidney disease; N18.4 Chronic kidney disease, stage 4 (severe); I51.81 Takotsubo syndrome; I25.10 Atherosclerotic heart disease of native coronary artery without angina pectoris
CPT/HCPCS: 36415; 80048; 85025

== ENCOUNTER → 2022-10-22 | Outpatient (REF) | payer MEDICARE, OTHER, SELFPAY ==
[2022-10-22 08:08] LABS: Absolute Neutrophil Count 5.3 X10^3/uL (2.0-7.7); Basophil# 0.04 X10^3/uL; Basophil% 0.5 % (0-1); Eosinophil# 0.72 X10^3/uL; Eosinophils% 8.8 % (0-5); Hematocrit 38.3 % (37-47); Hemoglobin 11.9 g/dL (12.0-15.0); Lymphocyte % 14.7 % (19-41); Mean Corp Hgb Conc 31.1 g/dL (32-36); Mean Corpuscular Volume 106.1 fL (81-99); Mean Platelet Vol. 10.2 fl (6.2-12.0); NRBC Flagged by Analyzer 0 % (0-5); Neutrophil # 5.28 X10^3/uL (2.7-7.7); Neutrophil % 64.4 % (47-70); Platelet Count 196 K/mm3 (150-450); RBC Distribution Width CV 12.9 % (11.6-14.6); RBC Distribution Width SD 50.5 fl (35.1-43.9); Red Blood Count 3.61 M/mm3 (4.2-5.4); White Blood Count 8.2 K/mm3 (4.4-11.0)
[2022-10-22 08:15] LABS: Anion Gap 5 (5-15); BUN 12 mg/dL (7-18); Calcium,Total 8.2 mg/dL (8.5-10.1); Chloride 106 mmol/L (98-107); Creatinine, Serum 1.33 mg/dL (0.55-1.02); EST Glomerular Filtration Rate 40 mL/min (>60); Est Glom Filt Rate - Afr Amer 49 mL/min (>60); Glucose 56 mg/dL (74-106); Potassium 4.5 mmol/L (3.5-5.1); Sodium Level 140 mmol/L (136-145)
== END ==
LOC: OLS.WHLEAS 05:00
PROVIDERS: PCP Family Medicine; Visit Provider Internal Medicine
DX: R52 Pain, unspecified (principal); J44.9 Chronic obstructive pulmonary disease, unspecified; E11.22 Type 2 diabetes mellitus with diabetic chronic kidney disease; N18.4 Chronic kidney disease, stage 4 (severe); I51.81 Takotsubo syndrome; I25.10 Atherosclerotic heart disease of native coronary artery without angina pectoris
CPT/HCPCS: 36415; 80048; 85025

== ENCOUNTER → 2022-11-04 | Outpatient (REF) | payer MEDICARE, OTHER, SELFPAY ==
[2022-11-04 10:37] LABS: Hemoglobin A1c 6.3 % (3.8-5.6)
== END ==
LOC: OLS.WHLEAS 05:00
PROVIDERS: PCP Family Medicine; Visit Provider Internal Medicine
DX: E11.9 Type 2 diabetes mellitus without complications (principal); J44.9 Chronic obstructive pulmonary disease, unspecified; I51.81 Takotsubo syndrome; H53.2 Diplopia; D64.9 Anemia, unspecified; I25.10 Atherosclerotic heart disease of native coronary artery without angina pectoris; E78.5 Hyperlipidemia, unspecified
CPT/HCPCS: 36415; 83036

== ENCOUNTER → 2022-11-19 | Outpatient (REF) | payer MEDICARE, OTHER, SELFPAY ==
[2022-11-19 09:01] LABS: Absolute Lymphocyte Count 1.11 X10^3/uL (0.83-4.51); Basophil# 0.05 X10^3/uL; Basophil% 0.6 % (0-1); Eosinophil# 0.66 X10^3/uL; Eosinophils% 7.5 % (0-5); Hematocrit 36.4 % (37-47); Hemoglobin 11.6 g/dL (12.0-15.0); Lymphocyte # 1.11 X10^3/ul (0.83-4.51); Lymphocyte % 12.7 % (19-41); Mean Corp Hgb Conc 31.9 g/dL (32-36); Mean Corpuscular Hgb 33.5 pg (27.0-32.0); Mean Corpuscular Volume 105.2 fL (81-99); Mean Platelet Vol. 9.9 fl (6.2-12.0); Monocyte# 0.87 X10^3/uL; Monocyte% 9.9 % (0-10); NRBC Flagged by Analyzer 0 % (0-5); Neutrophil # 6.04 X10^3/uL (2.7-7.7); Platelet Count 176 K/mm3 (150-450); RBC Distribution Width CV 12.7 % (11.6-14.6); RBC Distribution Width SD 49.1 fl (35.1-43.9); Red Blood Count 3.46 M/mm3 (4.2-5.4); White Blood Count 8.8 K/mm3 (4.4-11.0)
[2022-11-19 09:21] LABS: Anion Gap 8 (5-15); BUN 14 mg/dL (7-18); BUN/Creat Ratio 10.9 RATIO (10-20); Calcium,Total 8.6 mg/dL (8.5-10.1); Chloride 110 mmol/L (98-107); Creatinine, Serum 1.29 mg/dL (0.55-1.02); EST Glomerular Filtration Rate 42 mL/min (>60); Est Glom Filt Rate - Afr Amer 50 mL/min (>60); Glucose 61 mg/dL (74-106); Potassium 4.5 mmol/L (3.5-5.1); Sodium Level 143 mmol/L (136-145)
== END ==
LOC: OLS.WHL 06:00
PROVIDERS: PCP Family Medicine; Visit Provider Internal Medicine
DX: R52 Pain, unspecified (principal); J44.9 Chronic obstructive pulmonary disease, unspecified; E11.22 Type 2 diabetes mellitus with diabetic chronic kidney disease; N18.4 Chronic kidney disease, stage 4 (severe); I25.10 Atherosclerotic heart disease of native coronary artery without angina pectoris; I51.81 Takotsubo syndrome
CPT/HCPCS: 36415; 80048; 85025

== ENCOUNTER → 2022-12-17 | Outpatient (REF) | payer MEDICARE, OTHER, SELFPAY ==
[2022-12-17 08:36] LABS: Absolute Lymphocyte Count 1.27 X10^3/uL (0.83-4.51); Absolute Neutrophil Count 4.3 X10^3/uL (2.0-7.7); Basophil# 0.04 X10^3/uL; Basophil% 0.6 % (0-1); Eosinophil# 0.91 X10^3/uL; Eosinophils% 12.7 % (0-5); Hematocrit 36.3 % (37-47); Hemoglobin 11.4 g/dL (12.0-15.0); Lymphocyte # 1.27 X10^3/ul (0.83-4.51); Lymphocyte % 17.8 % (19-41); Mean Corp Hgb Conc 31.4 g/dL (32-36); Mean Corpuscular Volume 105.2 fL (81-99); Mean Platelet Vol. 9.5 fl (6.2-12.0); Monocyte# 0.63 X10^3/uL; Monocyte% 8.8 % (0-10); NRBC Flagged by Analyzer 0 % (0-5); Neutrophil # 4.28 X10^3/uL (2.7-7.7); Neutrophil % 59.8 % (47-70); Platelet Count 181 K/mm3 (150-450); RBC Distribution Width CV 12.3 % (11.6-14.6); RBC Distribution Width SD 48.1 fl (35.1-43.9); Red Blood Count 3.45 M/mm3 (4.2-5.4); White Blood Count 7.2 K/mm3 (4.4-11.0)
[2022-12-17 08:46] LABS: Anion Gap 5 (5-15); BUN 15 mg/dL (7-18); BUN/Creat Ratio 11.2 RATIO (10-20); Calcium,Total 8.3 mg/dL (8.5-10.1); Chloride 108 mmol/L (98-107); Creatinine, Serum 1.34 mg/dL (0.55-1.02); EST Glomerular Filtration Rate 40 mL/min (>60); Est Glom Filt Rate - Afr Amer 48 mL/min (>60); Glucose 132 mg/dL (74-106); Potassium 4.3 mmol/L (3.5-5.1); Sodium Level 142 mmol/L (136-145)
== END ==
LOC: OLS.WHLEAS 05:00
PROVIDERS: PCP Family Medicine; Visit Provider Internal Medicine
DX: R52 Pain, unspecified (principal); J44.9 Chronic obstructive pulmonary disease, unspecified; E11.22 Type 2 diabetes mellitus with diabetic chronic kidney disease; N18.4 Chronic kidney disease, stage 4 (severe); I51.81 Takotsubo syndrome; I25.10 Atherosclerotic heart disease of native coronary artery without angina pectoris
CPT/HCPCS: 36415; 80048; 85025

== ENCOUNTER → 2023-01-27 | Outpatient (REF) | payer MEDICARE, OTHER, SELFPAY | LOC: OLS.WHLEAS 09:00 | PROVIDERS: PCP Family Medicine; Visit Provider Internal Medicine | DX: L22 Diaper dermatitis (principal); J44.9 Chronic obstructive pulmonary disease, unspecified; E11.22 Type 2 diabetes mellitus with diabetic chronic kidney disease; N18.4 Chronic kidney disease, stage 4 (severe); I51.81 Takotsubo syndrome; I25.10 Atherosclerotic heart disease of native coronary artery without angina pectoris | CPT/HCPCS: 87070; 87077; 87186; 87205 ==

== ENCOUNTER → 2023-02-02 | Outpatient (REF) | payer MEDICARE, OTHER, SELFPAY ==
[2023-02-02 08:33] LABS: Absolute Lymphocyte Count 0.94 X10^3/uL (0.83-4.51); Absolute Neutrophil Count 5.5 X10^3/uL (2.0-7.7); Basophil# 0.05 X10^3/uL; Basophil% 0.6 % (0-1); Eosinophil# 0.81 X10^3/uL; Hematocrit 37.7 % (37-47); Hemoglobin 12.3 g/dL (12.0-15.0); Lymphocyte # 0.94 X10^3/ul (0.83-4.51); Lymphocyte % 11.6 % (19-41); Mean Corp Hgb Conc 32.6 g/dL (32-36); Mean Corpuscular Hgb 32.6 pg (27.0-32.0); Monocyte# 0.71 X10^3/uL; Monocyte% 8.8 % (0-10); NRBC Flagged by Analyzer 0 % (0-5); Neutrophil # 5.53 X10^3/uL (2.7-7.7); Neutrophil % 68.6 % (47-70); Platelet Count 137 K/mm3 (150-450); RBC Distribution Width CV 13.2 % (11.6-14.6); RBC Distribution Width SD 48.6 fl (35.1-43.9); Red Blood Count 3.77 M/mm3 (4.2-5.4); White Blood Count 8.1 K/mm3 (4.4-11.0)
[2023-02-02 08:44] LABS: ALB/GLOB Ratio 0.6 RATIO (0.9-2.4); AST(SGOT) 13 U/L (15-37); Alanine Aminotransfer ALT/SGPT 8 U/L (13-56); Albumin, Serum 2.2 g/dL (3.2-5.0); Alkaline Phosphatase 100 U/L (45-117); Anion Gap 3 (5-15); BUN 23 mg/dL (7-18); BUN/Creat Ratio 15.1 RATIO (10-20); Calcium,Total 8.6 mg/dL (8.5-10.1); Chloride 111 mmol/L (98-107); Creatinine, Serum 1.52 mg/dL (0.55-1.02); EST Glomerular Filtration Rate 34 mL/min (>60); Est Glom Filt Rate - Afr Amer 42 mL/min (>60); Globulin 3.5 g/dL (2.2-4.2); Glucose 92 mg/dL (74-106); Potassium 3.8 mmol/L (3.5-5.1); Protein, Total 5.7 g/dL (6.4-8.2); Sodium Level 142 mmol/L (136-145)
== END ==
LOC: OLS.WHLEAS 05:00
PROVIDERS: PCP Family Medicine; Visit Provider Internal Medicine
DX: L22 Diaper dermatitis (principal); Z79.899 Other long term (current) drug therapy
CPT/HCPCS: 36415; 80053; 85025

== ENCOUNTER → 2023-02-05 | Outpatient (REF) | payer MEDICARE, OTHER, SELFPAY ==
[2023-02-05 10:36] LABS: Absolute Lymphocyte Count 0.71 X10^3/uL (0.83-4.51); Basophil# 0.04 X10^3/uL; Basophil% 0.4 % (0-1); Eosinophil# 0.12 X10^3/uL; Eosinophils% 1.2 % (0-5); Hematocrit 40.9 % (37-47); Lymphocyte # 0.71 X10^3/ul (0.83-4.51); Lymphocyte % 7.2 % (19-41); Mean Corp Hgb Conc 31.8 g/dL (32-36); Mean Corpuscular Hgb 31.9 pg (27.0-32.0); Mean Corpuscular Volume 100.5 fL (81-99); Mean Platelet Vol. 10.5 fl (6.2-12.0); Monocyte# 0.92 X10^3/uL; Monocyte% 9.3 % (0-10); NRBC Flagged by Analyzer 0 % (0-5); Neutrophil # 8.01 X10^3/uL (2.7-7.7); Neutrophil % 81.5 % (47-70); Platelet Count 141 K/mm3 (150-450); RBC Distribution Width CV 13.7 % (11.6-14.6); RBC Distribution Width SD 50.7 fl (35.1-43.9); Red Blood Count 4.07 M/mm3 (4.2-5.4); White Blood Count 9.8 K/mm3 (4.4-11.0)
[2023-02-05 11:17] LABS: ALB/GLOB Ratio 0.6 RATIO (0.9-2.4); AST(SGOT) 15 U/L (15-37); Alanine Aminotransfer ALT/SGPT 8 U/L (13-56); Albumin, Serum 2.1 g/dL (3.2-5.0); Alkaline Phosphatase 125 U/L (45-117); Anion Gap 12 (5-15); BUN 31 mg/dL (7-18); BUN/Creat Ratio 22.1 RATIO (10-20); Calcium,Total 8.8 mg/dL (8.5-10.1); Chloride 112 mmol/L (98-107); EST Glomerular Filtration Rate 38 mL/min (>60); Est Glom Filt Rate - Afr Amer 46 mL/min (>60); Globulin 3.8 g/dL (2.2-4.2); Glucose 30 mg/dL (74-106); Potassium 3.9 mmol/L (3.5-5.1); Protein, Total 5.9 g/dL (6.4-8.2); Sodium Level 144 mmol/L (136-145)
== END ==
LOC: OLS.WHLEAS 05:25
PROVIDERS: PCP Family Medicine; Visit Provider Internal Medicine
DX: L22 Diaper dermatitis (principal); L98.9 Disorder of the skin and subcutaneous tissue, unspecified; J44.9 Chronic obstructive pulmonary disease, unspecified; E11.22 Type 2 diabetes mellitus with diabetic chronic kidney disease; N18.4 Chronic kidney disease, stage 4 (severe); I51.81 Takotsubo syndrome; I25.10 Atherosclerotic heart disease of native coronary artery without angina pectoris
CPT/HCPCS: 36415; 80053; 85025; 87070; 87205

== ENCOUNTER → 2023-06-25 | Outpatient (REF) | payer MEDICARE, OTHER, SELFPAY ==
[2023-06-25 10:22] LABS: Absolute Lymphocyte Count 1.31 X10^3/uL (0.83-4.51); Absolute Neutrophil Count 5.9 X10^3/uL (2.0-7.7); Basophil# 0.05 X10^3/uL; Basophil% 0.6 % (0-1); Eosinophil# 0.33 X10^3/uL; Eosinophils% 3.8 % (0-5); Hematocrit 39.7 % (37-47); Hemoglobin 12.5 g/dL (12.0-15.0); Lymphocyte # 1.31 X10^3/ul (0.83-4.51); Lymphocyte % 15.3 % (19-41); Mean Corp Hgb Conc 31.5 g/dL (32-36); Mean Corpuscular Hgb 32.9 pg (27.0-32.0); Mean Corpuscular Volume 104.5 fL (81-99); Mean Platelet Vol. 9.9 fl (6.2-12.0); Monocyte# 0.93 X10^3/uL; Monocyte% 10.8 % (0-10); NRBC Flagged by Analyzer 0 % (0-5); Neutrophil # 5.92 X10^3/uL (2.7-7.7); Platelet Count 231 K/mm3 (150-450); RBC Distribution Width CV 14.6 % (11.6-14.6); RBC Distribution Width SD 56.6 fl (35.1-43.9); White Blood Count 8.6 K/mm3 (4.4-11.0)
== END ==
LOC: OLS.WHLEAS 05:00
PROVIDERS: PCP Family Medicine; Visit Provider Internal Medicine
DX: N76.0 Acute vaginitis (principal)
CPT/HCPCS: 36415; 85025